=== PATIENT | female | born 1965 | race Caucasian/White ===

== ENCOUNTER 2017-07-30 08:32 | Emergency (ER) | payer MEDICARE, SELFPAY ==
[2017-07-30 08:33] VITALS: BP 161/90; PULSE 62; RESP 17; TEMP 36.5; O2SAT 94; BMI 62.1
--- NOTE | 2017-07-30 08:51 | ED.VISSUMM ---
- ER Visit Summary Date of Service: 07/30/17 Chief Complaint: Cellulitis right leg History of Present Illness: The patient is a 52 F who felt that she may have had a bite to her right lower dyer. She has small red vitor. She then developed a slightly red raised ring that itches. She was seen at urgent care on the and started on Keflex. Patient believes she had a fever that day, but none since. Patient states the erythema seems to be brighter today and it started moving more medially. Physical Examination: Vital signs are significant for blood pressure of 161/90, otherwise normal. Patient is an obese female sitting upright in bed. She is in no acute distress. Heart is regular rate and rhythm. Lung sounds are clear. Abdomen is soft and nontender. Right lower extremity examination reveals an erythematous circular lesion in the right lower leg with raised skin. There are small areas of red raised lesions just medial to this. There is no significant warmth. Test Results: CBC and chemistry studies are unremarkable. INR is 2.6. Emergency Department Course and Treatment: I discussed with the patient that her rash is consistent with a fungal infection. I took pictures of typical cellulitis versus fungal infection in and showed her the difference. We placed nystatin ointment on her leg and she complained that it seemed to burn and irritate the area. This was washed off. Patient is given a prescription for nystatin powder and p.o. Diflucan. Because she has restarted her Keflex she is to continue the full course of this. At this time there is no sign of secondary bacterial infection. Treatment Plan: [] Disposition: Discharge Impression: Tinea corporis This note was generated with medineering dictation software. It may contain incorrect words, spelling, and punctuation that were not noted in review of the chart prior to signing ED Disposition - Plan for ED Patient: Disposition: Home or Assisted Living Chief Complaint: Cellulitis Instructions: ED Tinea Cruris General Prescriptions: Fluconazole [Diflucan] 400 mg PO DAILY #5 days Nystatin Powder [Mycostatin Powder] 1 applic TOPICAL TID #1 bottle Referrals: Vitor Cha MD [Primary Care Provider] - 1-2 Weeks
[2017-07-30 09:15] LABS: Absolute Lymphocyte Count 1.74 X10^3/ul (0.83-4.51); Absolute Neutrophil Count 3.9 X10^3/uL (2.0-7.7); Basophil# 0.05 X10^3/uL; Basophil% 0.8 % (0-1); Eosinophil# 0.11 X10^3/uL; Eosinophils% 1.8 % (0-5); Hematocrit 42.4 % (37-47); Lymphocyte # 1.74 X10^3/ul (4.0); Lymphocyte % 28.2 % (19-41); Mean Corpuscular Volume 84.8 fL (81-99); Mean Platelet Vol. 9.7 fl (6.2-12.0); Monocyte# 0.37 X10^3/uL; Neutrophil # 3.87 X10^3/uL (2.7-7.7); Neutrophil % 62.9 % (47-70); POSITIVE COUNT NO; POSITIVE DIFFERENTIAL NO; POSITIVE MORPHOLOGY NO; Platelet Count 292 K/mm3 (150-450); RBC Distribution Width SD 39.8 fl (35.1-43.9); White Blood Count 6.2 K/mm3 (4.4-11.0)
[2017-07-30] MEDS: Nystatin/Triamcin Oint 1 APPLIC TOPICAL (09:17)
[2017-07-30 09:28] LABS: Anion Gap 7 (5-15); BUN 15 mg/dL (7-18); BUN/Creat Ratio 20.3 RATIO (10-20); Calcium,Total 8.6 mg/dL (8.5-10.1); Chloride 109 mmol/L (98-107); Creatinine, Serum 0.74 mg/dL (0.55-1.02); EST Glomerular Filtration Rate 87 mL/min (>60); Est Glom Filt Rate - Afr Amer 105 mL/min (>60); Estimated Creatinine Clearance 82.31 ml/min; Glucose 124 mg/dL (74-106); Potassium 3.8 mmol/L (3.5-5.1); Sodium Level 143 mmol/L (136-145)
[2017-07-30 10:14] LABS: International Normalized Ratio 2.6; Prothrombin Time (Protime)PT. 28.1 SECONDS (11.7-14.9)
--- NOTE | 2017-07-30 10:52 | ED.DEP ---
ED Disposition - Plan for ED Patient: Disposition: Home or Assisted Living Chief Complaint: Cellulitis Instructions: ED Tinea Cruris General Prescriptions: Fluconazole [Diflucan] 400 mg PO DAILY #5 days Nystatin Powder [Mycostatin Powder] 1 applic TOPICAL TID #1 bottle Referrals: Jonh Cha MD [Primary Care Provider] - 1-2 Weeks
[2017-07-30 11:09] VITALS: PULSE 71; RESP 17; O2SAT 97
== END 2017-07-30 11:09 | disposition home or self-care (01) ==
PROVIDERS: Emergency Provider Emergency Medicine; Family Provider Family Medicine; PCP Family Medicine
DX: B35.4 Tinea corporis (principal); I10 Essential (primary) hypertension; E66.9 Obesity, unspecified; Z79.01 Long term (current) use of anticoagulants; Z86.711 Personal history of pulmonary embolism; Z86.718 Personal history of other venous thrombosis and embolism; Z90.710 Acquired absence of both cervix and uterus
CPT/HCPCS: 36415; 80048; 85025; 85610; 99283; A4216

== ENCOUNTER 2018-02-21 06:00 | Day surgery (SDC) | payer MEDICARE, SELFPAY ==
[2018-02-21] VITALS (11 sets, daily range): BP systolic 141–190; BP diastolic 66–100; PULSE 55–89; RESP 16–20; TEMP 36.5–37.1; O2SAT 92–98; BMI 63.3
[2018-02-21 06:41] LABS: Prothrombin Time Fingerstick 13.7 SEC (11.9-14.4)
--- NOTE | 2018-02-21 07:15 | RAD_ITS ---
STUDY: X-RAY - RIGHT HAND, ATTENTION FIRST CARPOMETACARPAL JOINT REASON FOR EXAM: Right thumb carpometacarpal arthroplasty. TECHNIQUE: 3 intraoperative fluoroscopic view(s) were obtained. COMPARISON: Radiographs 01/18/2017. FINDINGS: There is resection arthroplasty of the first carpometacarpal joint. Electronically Signed: Pee Andre MD at 12:48 EDT Tel , Service support , RAD/Finger(s) Min 2 Views
[2018-02-21] MEDS: Cefazolin 2 GM in 0.9% Normal Saline 100 ML IV (07:29)
--- NOTE | 2018-02-21 07:30 | MISC_PTH ---
PATIENT: MORENA [place]ARTINEZ [place] [facility] [id number] AGE/SX: 53/F ROOM: RE02/21/[address]: Dr. Lisette Banks DO : 1965 BED: DIS: 02/21/2018 SPEC #: [id number] RECD: 02/21/18 11:42 STATUS: ROB REQ #: [id number] BROOKE: 02/21/18 07:[address]: Lisette Banks DEPT: SURGICAL PATHOLOGY RECD BY: Igor Anne ENTERED: 02/22/18 06:50 SP TYPE: [facility] [place] OTHR DR: Dr. Jonh Cha MD Tissues: Bone of hand, NOS Procedures: Decalcification bone/plaque Surgery Specimen Level III HEADER OPERATION: Carpometacarpal arthroplasty right thumb; left thumb carpometacarpal steroid injection PRE-OP DIAGNOSIS: Right carpometacarpal osteoarthritis TISSUE SUBMITTED: Right trapezium MICROSCOPIC DIAGNOSIS Right trapezium: A piece of bone with reactive changes, clinically carpometacarpal osteoarthritis. TOBIAS:agustina 02/26/18 MICROSCOPIC DESCRIPTION Slides are reviewed. GROSS DESCRIPTION Received in fixative is one container labeled with the patient's name and designated right trapezium. The specimen consists of a piece of bone measuring 2 x 1.5 x 1.5 cm. The entire specimen is submitted in two cassettes after decalcification. / TOBIAS:agustina 02/21/18 TC:5 [facility]: [id number]
--- NOTE | 2018-02-21 07:46 | DCINST_ITS ---
Discharge Diet: No Restrictions - leave splint on until seen in clinic, call with concerns, follow up in 2 weeks, do not take tylenol until percocet has stopped Discharge Activity: May Not Drive May shower in (days): 1 Ice area for (Minutes): 20 - Every hour while awake. Weight Bearing Status: Weight bearing as tolerated Keep extremity elevated above heart level: Operative Extremity Call your doctor if your incision/area has: Continuous Slow Oozing, Sudden Increased Bleeding, Increased Pain/ Swelling, Increased Redness, Foul Smelling Discharge Call your doctor if you observe: Fever of 101 or Higher, Coldness, Increased Pain, Numbness or Tingling, Change in Color, Calf discomfort Allergies/Adverse Reactions: Allergies enoxaparin sodium [From Lovenox] Allergy (Verified 02/14/18 12:55) Rash erythromycin lactobionate [From Erythrocin] Allergy (Verified 02/14/18 12:55) Rash Latex, Natural Rubber Allergy (Verified 02/14/18 12:55) Rash rofecoxib [From Vioxx] Allergy (Verified 02/14/18 12:55) Swelling valdecoxib [From Bextra] Allergy (Verified 02/14/18 12:55) Rash amoxicillin trihydrate [From Augmentin] Adverse Reaction (Verified 02/14/18 12:55) Other potassium clavulanate [From Augmentin] Adverse Reaction (Verified 02/14/18 12:55) Other Medications to take at Discharge Lisinopril [Zestril] 10 mg PO DAILY 08/07/13 Warfarin [Coumadin] 7.5 mg PO SUMOWEFR 08/07/13 Cyclobenzaprine [Flexeril] 10 mg PO TID PRN PRN 03/04/14 Acetaminophen with Codeine [Tylenol with Codeine #4 Tablet] 1 each PO Q4H PRN PRN 02/02/16 Atenolol [Tenormin (beta yusuf)] 50 mg PO DAILY 02/02/16 Gabapentin [Neurontin] 300 mg PO QHS 02/02/16 Furosemide [Lasix] 20 mg PO DAILY PRN PRN 02/05/16 Amlodipine [Norvasc] 10 mg PO DAILY 07/25/16 Atenolol [Tenormin (beta yusuf)] 25 mg PO QHS 07/30/17 Warfarin Sodium 5 mg PO TUTHSA 07/30/17 Tizanidine HCl [Zanaflex] 4 mg PO Q6H PRN PRN 02/14/18 Oxycodone HCl/Acetaminophen [Percocet 5/325] 1 - 2 tablet PO Q6H PRN PRN 3 Days #20 tablet 02/21/18 The following prescriptions were given: Oxycodone HCl/Acetaminophen [Percocet 5/325] 1 - 2 tablet PO Q6H PRN PRN 3 Days #20 tablet PRN Reason: Pain Primary Care Physician: Jonh Cha MD [Primary Care Provider] - Test Results: Test results from this visit will be discussed in further detail at your follow- up appointment, if applicable. Please Follow Up With: Lisette Banks, - [phone]
--- NOTE | 2018-02-21 07:46 | OP.PCM_ITS ---
Report of Operation Date of Procedure: 02/21/18 Pre-Operative Diagnosis: right cmc osteoarthritis(carpometacarpal) Post-Operative Diagnosis: same Surgery/Procedure Performed:: right cmc arthroplasty with tight rope arthrex recreation attendant supervisor: Ha Carson Type of Anesthesia:: General Anesthesiologist: Dvaid Gil Specimen's removed: trapezium Drains: none Estimated Blood Loss (mL): 10cc Fluids Replaced: 1200cc lr Description of Procedure: Preoperative note Patient is a 53-year-old female with mild osteoarthritis of her CMC joint however continued pain did have good result and resolution of symptoms with CMC injections however they stopped working patient is unable to perform her activities of daily living and elected to proceed with right CMC arthroplasty. Risks benefits and alternatives surgery discussed with patient. Risks including but not limited to blood loss, blood clot, infection, neurovascular injury, failure procedure, loss of life and loss of limb. Patient is aware like proceed with right CMC arthroplasty and left CMC injection. Operative note Patient seen and examined preoperative holding area. Right arm is hand was marked. Patient was brought to the operating room placed supine on the operating room table. Sign, anesthesia, antibiotics were administered. All bony prominence is well-padded SCDs placed on her bilateral lower extremities. The right arm was prepped and draped in usual sterile fashion with a tourniquet around her arm. We marked out our incision used fluoroscopy to ensure that we had good length of the incision for both our CMC as well as where the tight rib can be sewed on the between the at the dorsal second dorsal interosseous. The arm was elevated segment in turn was raised her pressure of 250 torr. Timeout was performed. We then used a 15 blade to cut the skin are incision ran from the base of the first metacarpal to the radial styloid. Dorsally. We then dissected down tenotomies making sure to protect all neurovascular structures down to the level of the extensor dorsal compartment first. We then released this proximally under standard technique. Then able to visualize the trapezium we put an 18-gauge needle into the trapezium confirm that that was with the correct bone on fluoroscopy. We then used a 15 blade and a Isamar blade combination and first down the bone excised and did a capsulotomy then we excised the trapezium in its entirety. We confirmed on fluoroscopy that we did remove the entire trapezium. We then used Arthrex mini tight rope system and placed our guidewire starting at the base of the first metacarpal and drilling it to the second metacarpal and ensuring that we were parallel to the joint and maintaining her arc of our metacarpals. We then tied the button on the second metacarpal in standard technique and then ensure that we had good flexion opposition, circumduction and a negative shuck test. We then tightened it further the button down to bone and sized sewed the button down to bone after we had no shock. We then irrigated both incision sites copious amounts of sterile saline. We closed the periosteum over top of the button and the suture. We closed the skin with 4-0 running Monocryl at the between the first and second interspace and then we closed our CMC capsule with a 2-0 Vicryl the subcuticular with a 4-0 Vicryl and the skin with a 4-0 nylon. Sterile dressings were applied a thumb spica splint was applied to the right hand. Tourniquet was deflated for a total working time of 119 minutes. We then injected the left CMC joint under sterile technique. Taught patient tolerated procedure well there are no complications transferred to recovery room in stable condition. Postoperative note Nonweightbearing right upper extremity Maintain splint until seen postop visit Call with increased pain numbness tingling or further issues arise Pharmacy has prescription Follow-up in 2 weeks This note was generated with Gigzolo dictation software. It may contain incorrect words, spelling, and punctuation that were not noted in checking the note before signing.
[2018-02-21] MEDS: Mupirocin Ointment 22gm Tube 1 APPLIC (09:46)
[2018-02-21] MEDS: Triamcinolone Acetonide 40 MG/ML Vial (10:10)
[2018-02-21] MEDS: Ropivacaine 0.5% 30 ML Vial (10:10)
--- NOTE | 2018-02-21 11:58 | SUR.PHASEI ---
SBP MAINTAINING FROM 170-190'S SINCE ARRIVAL TO PACU. PATIENT SLEEPING QUIETLY AFTER PHENERGAN/DILAUDID, WHEN AWAKE, STATES PAINFUL BUT DESATS EVERY TIME MEDICATED. PATIENT STATES SBP ELEVATED FREQUENTLY AT HOME, ON SEVERAL BP MEDS. DR SCHULZ NOTIFIED, AUGUST D/C FROM PACU.
[2018-02-21] MEDS: HYDROcodone Bitartrate/Apap 5/325 Tablet PO (13:41)
[2018-02-21] MEDS: HYDROmorphone 1 MG/ML Syringe 2 MG IV (13:55)
== END 2018-02-21 14:32 | disposition home or self-care (01) ==
LOC: SDC 06:01 → AC 06:03
PROVIDERS: Family Provider Family Medicine; PCP Family Medicine; Referring Provider Orthopaedic Surgery; Visit Provider Orthopaedic Surgery
PROC: (CPT 26615; principal; 2018-02-21 07:15)
DX: M18.11 Unilateral primary osteoarthritis of first carpometacarpal joint, right hand (principal); I10 Essential (primary) hypertension; Z78.0 Asymptomatic menopausal state; Z86.718 Personal history of other venous thrombosis and embolism; Z86.711 Personal history of pulmonary embolism; Z87.19 Personal history of other diseases of the digestive system; Z87.891 Personal history of nicotine dependence
CPT/HCPCS: 01830; 25447; 36416; 73140; 76000; 85610; 88304; 88311; C1713; J7120; J2405

== ENCOUNTER → 2018-03-06 09:24 | Outpatient (CLI) | payer MEDICARE, SELFPAY ==
--- NOTE | 2018-03-06 09:28 | RAD_ITS ---
STUDY: X-RAY - RIGHT HAND, ATTENTION FIRST FINGER REASON FOR EXAM: Female, 53 years old. One month postoperative after carpometacarpal arthroplasty. TECHNIQUE: 3 view(s) of the finger were obtained. COMPARISON: January 26, 2017 FINDINGS: The patient has undergone resection of the trapezium with a small portion of the trapezium remaining. There are surgical changes of the bases of the first and second metacarpals. There is arthrosis of the first metacarpophalangeal and interphalangeal joint. There is marked vascular calcification. RAD/Finger(s) Min 2 Views IMPRESSION: Postsurgical changes without complications. Electronically Signed: Cristian Peres MD at 14:05 EST , Service support ,
== END ==
PROVIDERS: Family Provider Family Medicine; PCP Family Medicine; Referring Provider Orthopaedic Surgery; Visit Provider Orthopaedic Surgery
DX: M18.11 Unilateral primary osteoarthritis of first carpometacarpal joint, right hand (principal); Z96.691 Finger-joint replacement of right hand
CPT/HCPCS: 73140; 97166

== ENCOUNTER → 2018-04-09 10:29 | Outpatient (CLI) | payer MEDICARE, SELFPAY ==
--- NOTE | 2018-04-09 10:30 | US_ITS ---
STUDY: SUPERFICIAL ULTRASOUND - RIGHT FOURTH DIGIT. REASON FOR EXAM: Female, 53 years old. Palpable nodule. TECHNIQUE: A superficial ultrasound was performed with real-time and static ashley-scale imaging. COMPARISON: None. FINDINGS: Imaging of the fourth digit was obtained. There is a 4 mm x 4 mm x 2 mm hypoechoic solid nodule along the palmar aspect of the fourth digit. This corresponds to the palpable abnormality. This may represent a neuroma. US/Ext Non Vasc Limited/Soft Tiss IMPRESSION: The palpable abnormality corresponds to a 4 mm x 4 mm x 2 mm hypoechoic solid nodule. Clinical correlation is recommended. Electronically Signed: Sanjay Monroy MD at 9:41 EST Tel [phone], Service support ,
== END ==
PROVIDERS: Family Provider Family Medicine; PCP Family Medicine; Referring Provider Orthopaedic Surgery; Visit Provider Orthopaedic Surgery
DX: M79.5 Residual foreign body in soft tissue (principal); L92.9 Granulomatous disorder of the skin and subcutaneous tissue, unspecified
CPT/HCPCS: 76882

== ENCOUNTER → 2018-05-16 11:06 | Outpatient (CLI) | payer MEDICARE, SELFPAY ==
--- NOTE | 2018-05-16 11:08 | RAD_ITS ---
STUDY: X-RAY - RIGHT HAND REASON FOR EXAM: Female, 53 years old. Pain. Previous surgery. TECHNIQUE: 3 view(s) of the hand. COMPARISON: 01/26/2017 FINDINGS: Since prior exam, patient has had resection of the greater multangular, and there has been placement of probable ligature between the base of the first and second metacarpals. No definite acute fracture or dislocation. Since prior exam patient has developed significant calcifications of the radial and ulnar arteries which can be seen with diabetes. Correlate clinically. Normal radiocarpal articulation. Normal distal radioulnar joint. Normal second through fifth carpometacarpal joints. Normal metacarpi. There is degenerative arthrosis of the metacarpophalangeal (MCP) joints. Normal interphalangeal joint of the thumb. Normal proximal and distal phalanges of the thumb. Normal metacarpophalangeal joints of the second through fifth fingers. Normal proximal and distal interphalangeal joints of the second through fifth fingers. Normal phalanges of the second through fifth fingers. RAD/Hand Min 3 Views IMPRESSION: No acute fractures or dislocations. Postsurgical changes involving the multangulars, and between the first and second metacarpals. Electronically Signed: Nilesh Vang MD at 22:53 EST , Service support ,
--- OUTSIDE RECORDS SUMMARY | 2018-07-21 07:00 | XMS RPT_ITS ---
:1965 Author Organization OHIP Support Name Relationship Address Phone D Unavailable Unavailable Unavailable RIDENBAUGH, CHAVA Unavailable [address] + [place] [address] D Unavailable Unavailable Unavailable RIDENBAUGH, CHAVA Unavailable [address] + [place] [address] D Unavailable Unavailable Unavailable RIDENBAUGH, CHAVA Unavailable [address] + [place] [address] D Unavailable Unavailable Unavailable RIDENBAUGH, CHAVA Unavailable [address] + [place] [address] D Unavailable Unavailable Unavailable RIDENBAUGH, CHAVA Unavailable [address] + [place] [address] D Unavailable Unavailable Unavailable RIDENBAUGH, CHAVA Unavailable [address] + [place] [address] D Unavailable Unavailable Unavailable RIDENBAUGH, CHAVA Unavailable [address] + [place] [address] D Unavailable Unavailable Unavailable RIDENBAUGH, CHAVA Unavailable [address] + [place] [address] D Unavailable Unavailable Unavailable RIDENBAUGH, CHAVA Unavailable [address] + [place] [address] D Unavailable Unavailable Unavailable RIDENBAUGH, CHAVA Unavailable [address] + [place] [address] D Unavailable Unavailable Unavailable RIDENBAUGH, CHAVA Unavailable [address] + [place] [address] D Unavailable Unavailable Unavailable KELSIE BRODERICK Unavailable [address] + [address] [place] [address] CHAVA MARTINEZ Unavailable [address] + [place] [address] D Unavailable Unavailable Unavailable KELSIE BRODERICK Unavailable [address] + [address] [place] [address] CHAVA MARTINEZ Unavailable [address] + [place] [address] D Unavailable Unavailable Unavailable KELSIE BRODERICK Unavailable [address] + [address] [place] [address] CHAVA MARTINEZ Unavailable [address] [phone] [place] [address] D Unavailable Unavailable Unavailable KELSIE BRODERICK Unavailable [address] + [address] [place] [address] CHAVA MARTINEZ Unavailable [address] [phone] [place] [address] D Unavailable Unavailable Unavailable KELSIE BRODERICK Unavailable [address] + [address] [place] [address] CHAVA MARTINEZ Unavailable [address] [phone] [place] [address] Care Team Providers Name Role Phone MILKA COLINDRES Referring Unavailable ELDERBROCK, MILKA Pruitt Referring Unavailable ELDERBROCK, MILKA Pruitt Referring Unavailable ELDERBROCKMILKA Attending Unavailable JAZMINEBROMILKA WARE Referring Unavailable ELDERBROCKMILKA Referring Unavailable ELDERBROCK, MILKA Pruitt Referring Unavailable ELDERBROCK, MILKA Pruitt Referring Unavailable ELDERBROCK, MILKA Pruitt Referring Unavailable ELDERBROCK, MILKA Pruitt Referring Unavailable ELDERBROCK, MILKA Pruitt Referring Unavailable CASEY HUDSON Attending Unavailable CASEY HUDSON Referring Unavailable ELDERBROCK, MILKA Pruitt Referring Unavailable ELDERBROCK, MILKA Pruitt Referring Unavailable ELDERBROCK, MILKA Pruitt Referring Unavailable ELDERBROCK, MILKA Pruitt Referring Unavailable ELDERBROCK, MILKA Pruitt Referring Unavailable ELDERBROCK, MILKA Pruitt Referring Unavailable ELDERBROCK, MILKA Pruitt Referring Unavailable ELDERBROCK, MILKA Pruitt Referring Unavailable ELDERBROCK, MILKA Pruitt Referring Unavailable ELDERBROCK, MILKA Pruitt Referring Unavailable ELDERBROCK, MILKA Pruitt Referring Unavailable ELDERBROCK, MILKA Pruitt Referring Unavailable ELDERBROCK, MILKA Pruitt Referring Unavailable PODKAREN HODGE (DOCUMENT REVIEW ATTORNEY) Attending Unavailable ELDERBROCK, MILKA D Referring Unavailable ELDERBROCK, MILKA D Referring Unavailable CASEY HUDSON Attending Unavailable CASEY HUDSON Referring Unavailable Chicorelli, Lisette Attending Unavailable Elderbrock, Milka Referring Unavailable Chicorelli, Lisette Attending Unavailable Elderbrock, Milka Referring Unavailable Elderbrock, Milka Primary Care Unavailable Chicorelli, Lisette Attending Unavailable Chicorelli, Lisette Referring Unavailable Elderbrock, Milka Primary Care Unavailable Wayt, Ha Attending Unavailable Elderbrock, Milka Referring Unavailable Wayt, Ha Attending Unavailable Wayt, Ha Referring Unavailable Elderbrock, Milka Primary Care Unavailable Elderbrock, Milka Primary Care Unavailable Za Gupta Attending Unavailable Chicorelli, Lisette Attending Unavailable Elderbrock, Milka Referring Unavailable Elderbrock, Milka Primary Care Unavailable Chicorelli, Lisette Attending Unavailable Elderbrock, Milka Referring Unavailable Elderbrock, Milka Primary Care Unavailable Wayt, Ha Attending Unavailable Elderbrock, Milka Referring Unavailable Elderbrock, Milka Primary Care Unavailable Chicorelli, Lisette Attending Unavailable Chicorelli, Lisette Referring Unavailable Elderbrock, Milka Primary Care Unavailable Chicorelli, Lisette Attending Unavailable Elderbrock, Milka Referring Unavailable Chicorelli, Lisette Attending Unavailable Chicorelli, Lisette Referring Unavailable Elderbrock, Milka Primary Care Unavailable Chicorelli, Lisette Attending Unavailable Chicorelli, Lisette Referring Unavailable Elderbrock, Milka Primary Care Unavailable Chicorelli, Lisette Attending Unavailable Chicorelli, Lisette Attending Unavailable Elderbrock, Milka Referring Unavailable Chicorelli, Lisette Attending Unavailable Chicorelli, Lisette Referring Unavailable Elderbrock, Milka Primary Care Unavailable PROBLEMS PROBLEMS DATE TYPE CONDITION / CODE ATTENDING STATUS SOURCE 05/16/2018 Unknown M79.644 - Pain in [place] Active [place] right finger(s) / Community M79.644(ICD-10) Hospital Repository 05/08/2018 Unknown Z96.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, Active [place] Finger-joint [facility] replacement of right Hospital hand / Repository Z96.691(ICD-10) 04/12/2018 Unknown G57.60 - Lesion of Chic[place]lli, Active [place] plantar nerve, [facility] unspecified lower Hospital limb / G57.60(ICD-10) Repository 04/03/2018 Unknown M79.5 - Residual Chicorelli, Active [place] foreign body in soft [facility] tissue / Hospital M79.5(ICD-10) Repository 04/03/2018 Unknown 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, Active [place]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 of the skin [facility] and subcutaneous Hospital tissue, unspecified / Repository L92.9(ICD-10) 03/13/2018 Active Encounter for NA Active [place] therapeutic drug [facility] Main level monitoring / [place] Z51.81(ICD-10) Repository 03/13/2018 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 [place] use of anticoagulants Clinic Main / Z79.01(ICD-10) [place] Repository 03/23/2009 Active Essential (primary) NA Active [place] hypertension / Clinic Main I10(ICD-10) [place] Repository 03/06/2018 Unknown 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, 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 [facility] first carpometacarpal Repository joint, right hand / M18.11(ICD-10) 02/21/2018 Unknown G89.18 - Other acute Chic[place]lli, Active [place] postprocedural pain / [facility] G89.18(ICD-10) Hospital Repository 12/07/2017 Unknown M18.0 - Bilateral Chicorelli, Active [place] primary [facility] osteoarthritis of Hospital first carpometacarpal Repository joints / M18.0(ICD-10) 04/04/2016 Active Other abnormal NA Active [place] glucose / Clinic Main R73.09(ICD-10) [place] Repository 03/04/2015 Active Embolism and NA Active [place] thrombosis of [facility] Main unspecified artery / [place] I74.9(ICD-10) Repository 11/17/2017 Active Other fatigue / NA Active [place] R53.83(ICD-10) Clinic Main [place] Repository 10/13/2017 Active Low back pain / NA Active [place] M54.5(ICD-10) Clinic Main [place] Repository 03/23/2009 Active Morbid (severe) NA Active [place] obesity due to excess Clinic Main calories / [place] E66.01(ICD-10) Repository PROCEDURES PROCEDURES No Procedure Records FoundRESULTS RESULTS ORTHOPEDIC VISIT Observed: 05/18/2018 Status: F Source: [place] REPORT 4:51 PM [facility] REPOSITORY [facility] [address] [place] [id number] OFFICE VISIT Date of Service: 05/16/18 MR#: [id number] Acct: [id number] Name: BECKY MARTINEZ Rep #: [id number] : 1965 Provider: LISA Carson Age/Sex: 53/F [place] [facility] [place]: Signed Intake Intake Visit Reasons: right thumb Is patient in pain?: Yes Allergies enoxaparin sodium [From Lovenox] Allergy (Verified 05/16/18 10:36) Rash erythromycin lactobionate [From Erythrocin] Allergy (Verified 05/16/18 10:36) Rash Latex, Natural Rubber Allergy (Verified 05/16/18 10:36) Rash rofecoxib [From Vioxx] Allergy (Verified 05/16/18 10:36) Swelling valdecoxib [From Bextra] Allergy (Verified 05/16/18 10:36) Rash amoxicillin trihydrate [From Augmentin] Adverse Reaction (Verified 05/16/18 10:36) Other potassium clavulanate [From Augmentin] Adverse Reaction (Verified 05/16/18 10:36) Other Medications Lisinopril [Zestril] 10 mg PO DAILY 08/07/13 [History Confirmed 02/21/18] Warfarin [Coumadin] 7.5 mg PO SUMOWEFR 08/07/13 [History Confirmed 02/21/18] Cyclobenzaprine [Flexeril] 10 mg PO TID PRN PRN 03/04/14 [History Confirmed 02/21/18] Acetaminophen with Codeine [Tylenol with Codeine #4 Tablet] 1 ea PO Q4H PRN PRN 02/02/16 [History Confirmed 02/21/18] Atenolol [Tenormin (beta yusuf)] 50 mg PO DAILY 02/02/16 [History Confirmed 02/21/18] Gabapentin [Neurontin] 300 mg PO QHS 02/02/16 [History Confirmed 02/21/18] Furosemide [Lasix] 20 mg PO DAILY PRN PRN 02/05/16 [History Confirmed 02/21/18] Amlodipine [Norvasc] 10 mg PO DAILY 07/25/16 [History Confirmed 02/21/18] Atenolol [Tenormin (beta yusuf)] 25 mg PO QHS 07/30/17 [History Confirmed 02/21/18] Warfarin Sodium 5 mg PO TUTHSA 07/30/17 [History Confirmed 02/21/18] Tizanidine HCl [Zanaflex] 4 mg PO Q6H PRN PRN 02/14/18 [History Confirmed 02/21/18] PFSH Medical History H/O: hysterectomy (Inactive) s/p elbow (Inactive) Surgical History h/o right CMC joint arthroplasty (Acute) S/P arthroscopy of knee (Inactive) S/P hernia repair (Inactive) S/P knee replacement (Inactive) Family History Sister Heart disease Brother Heart disease Father Heart disease Mother Breast cancer Social History Smoking Status: Former smoker HPI right thumb: Details: BECKY MARTINEZ is a 53 year old F here today for continued right thumb pain. She is s/p CMC joint replacement dos 02/21/18. Patient states that she continues to have pain into her right thumb and wrist. She has significant swelling into her hand which increases throughout the day. Patient has decreased wrist range of motion and stiffness with thumb range of motion. Patient has numbness over her the tip of the thumb and index finger. Her incision is fully healed. She is currently in occupational therapy. ROS Const Reports system reviewed and no additional complaints, except as docu Eyes Reports system reviewed and no additional complaints, except as docu ENT Reports system reviewed and no additional complaints, except as docu Card Reports system reviewed and no additional complaints, except as docu Resp Reports system reviewed and no additional complaints, except as docu GI Reports system reviewed and no additional complaints, except as docu Reports system reviewed and no additional complaints, except as docu Musc Reports joint pain, Reports joint swelling, Reports stiffness, Reports numbness Skin/Breast Reports system reviewed and no additional complaints, except as docu Neuro Yes system reviewed and no additional complaints, except as docu, Yes numbness Psych Reports system reviewed and no additional complaints, except as docu Endo Reports system reviewed and no additional complaints, except as docu Ortho Exam Right Wrist/Hand Skin/Wound: Yes Swelling, No Ecchymosis Contralateral Normal: Yes Right Wrist: No ROM-Extension 0-60, ROM-Flexion 0-80, ROM- Pronation 0-80 or ROM-Supination 0-90 Sensation: Radial: I, Ulnar: I, Median: I WRIST: Today in the office patient does have some mild to moderate generalized swelling of the wrist and the base of the thumb. She does have some mild diffuse puffiness of the fingers as well. Patient has extremely limited range of motion of the wrist. She has maybe 10 degrees of flexion and extension. Movements of the wrist feel more blocked as opposed to just being stiff. Patient is also limited with her supination and pronation as well. She does have movements of the thumb both the IP joint and the MCP joint. These movements are not full/comparable to the left thumb. Is roughly 30 degrees of the IP joint of flexion/abduction and roughly 50 degrees of the MCP joint. She has limited pincer grasp thumb to index finger. Left Wrist/Hand Skin/Wound: Yes Swelling, No Ecchymosis Assessment AND Plan Problems 1. Orthopedic aftercare Z47.89 Plan Obtained Xrays of patient's right wrist. Personally reviewed Xrays. There is no obvious fracture, dislocation, or lucency noted. See chart for further details. Patient still has some calcification of the radial and ulnar arteries. 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 There are no major dislocations or carpal space widening. May be a slight narrowing of the radiocarpal region. At this time patient states that the surgical aspect of the thumb is not doing too bad that her motion is coming back and her pain is very mild. Her biggest concern is that she really has limited range of motion of the wrist which impacts her daily activities of living. Along with this limited motion she has intermittent swelling of the wrist as well as into the fingers. She states that sometimes the wrist appears shiny and almost discolored a little. She has not seen much improvement through occupational therapy at this point. She definitely needs to continue with occupational therapy at the same time will talk with therapist to see if there is any other possible treatments we could be doing for her. Have to even consider the possibility of an RSD secondary to surgery at this site. At this time she will continue with home exercise program given to her by OT until we speak to see if there is another possible treatment option. I did discuss possibly even seeing hand surgeon for second opinion. Patient can notify the office if she has any worsening in the meantime. I would like to see her back in 4-6 weeks. This note was generated with BrightFarmsation software. It may contain incorrect words, spelling, and punctuation that were not noted in checking the note before signing. Orders Orders: Plan Detail Follow Up 6 Weeks Coding Level of Care Code Global Post Op Diagnoses Orthopedic aftercare Z47.89 05/18/18 7068 <Electronically signed by Ha GONZALEZ> Date Ha GONZALEZ Cosigner Signature: Date (if applicable) CC: HAND MIN 3 VIEWS Observed: 05/16/2018 Status: F Source: [place] 11:08 AM [facility] REPOSITORY [facility] Imaging Services [address] [place] [id number] Hand Min 3 Views MR#: [id number] Acct: [id number] Name: BECKY MARTINEZ Soheila Rep #: [id number] : 1965 F 53 From: Nilesh Vang MD PCP: Starla RAM,Milka Status: REG CLI Study: Hand Min 3 Views Date of Exam: 05/16/18 Exam# [id number] Ordering Dr: Ha Carson STUDY: X-RAY - RIGHT HAND REASON FOR EXAM: Female, 53 years old. Pain. Previous surgery. TECHNIQUE: 3 view(s) of the hand. COMPARISON: 2017 FINDINGS: Since prior exam, patient has had resection of the greater multangular, and there has been placement of probable ligature between the base of the first and second metacarpals. No definite acute fracture or dislocation. Since prior exam patient has developed significant calcifications of the radial and ulnar arteries which can be seen with diabetes. Correlate clinically. Normal radiocarpal articulation. Normal distal radioulnar joint. Normal second through fifth carpometacarpal joints. Normal metacarpi. There is degenerative arthrosis of the metacarpophalangeal (MCP) joints. Normal interphalangeal joint of the thumb. Normal proximal and distal phalanges of the thumb. Normal metacarpophalangeal joints of the second through fifth fingers. Normal proximal and distal interphalangeal joints of the second through fifth fingers. Normal phalanges of the second through fifth fingers. RAD/Hand Min 3 Views IMPRESSION: No acute fractures or dislocations. Postsurgical changes involving the multangulars, and between the first and second metacarpals. Electronically Signed: Nilesh Vang MD at 22:53 EST , Service support , CC: LISA Carson; Milka Colindres MD Fresh Food Manager: Signed PROGRESS Observed: 05/15/2018 Status: COMPLETED Source: [place] 4:03 PM [facility] REPOSITORY HNO ID: [id number] Author: Milka Colindres Service: (none) Author Type: Physician Type: Progress Notes Filed: 05/15/2018 4:51 PM Note Text: I agree with the advice given; stay same and recheck in 2 weeks Milka Colindres MD PROGRESS Observed: 05/15/2018 Status: COMPLETED Source: [place] 2:51 PM [facility] REPOSITORY HNO ID: [id number] Author: Priscila Blanton RN Service: (none) Author Type: (none) Type: Progress Notes Filed: 05/15/2018 2:53 PM Note Text: patient had inr completed at [facility] patients inr is 3.0 (patients inr range is 2.0-3.0) patient is currently taking 7.5mg Tues,Thurs and 5mg all other days patients last dose change was on 05/08/18 due to a high level of 4.0 (dose at that time was 5mg Tues,Thurs,Sat and 7.5mg all other days) patient has had no changes in medication and no missed doses and no change in diet Advised patient to continue on the same dose(s) and that they would only be contacted regarding dosage and follow up instructions after review with provider, if a change is needed. Written instructions given and patient verbalized understanding. Presently scheduled in 2 weeks (05/29/18) for follow up INR. PROGRESS Observed: 05/11/2018 Status: COMPLETED Source: [place] 1:23 PM [facility] REPOSITORY HNO ID: [id number] Author: Yao Vallejo Service: (none) Author Type: Physician Type: Progress Notes Filed: 05/11/2018 3:21 PM Note Text: This note was created using MENA360riter. Subjective Becky Martinez is a 53 year old female. Review of Systems Objective There were no vitals taken for this visit. Physical Exam Assessment and Plan Agree with plan. PROGRESS Observed: 05/11/2018 Status: COMPLETED Source: [place] 10:45 AM [facility] REPOSITORY HNO ID: [id number] Author: Priscila Blanton RN Service: (none) Author Type: (none) Type: Progress Notes Filed: 05/11/2018 10:47 AM Note Text: patient had inr completed at [facility] patients inr is 2.5 (patients inr range is 2.0-3.0) patient is currently taking 7.5mg Tues,Thurs and 5mg all other days patients last dose change was on 05/08/18 due to a high level of 4.0 (dose at that time was 5mg Tues,Thurs,Sat and 7.5mg all other days) patient has had no changes in medication except coumadin (pt is still taking doxy), and no uninstructed missed doses and no change in diet Advised patient to continue on the same dose(s) and that they would only be contacted regarding dosage and follow up instructions after review with provider, if a change is needed. Written instructions given and patient verbalized understanding. Presently scheduled on Monday (05/15/18 per pt request) for follow up INR. PROGRESS Observed: 05/08/2018 Status: COMPLETED Source: [place] 5:15 PM [facility] REPOSITORY HNO ID: [id number] Author: Helen Stovall LPN Service: (none) Author Type: (none) Type: Progress Notes Filed: 05/08/2018 5:28 PM Note Text: Pt notified. PROGRESS Observed: 05/08/2018 Status: COMPLETED Source: [place] 4:16 PM [facility] REPOSITORY HNO ID: [id number] Author: Ben Cerna Service: (none) Author Type: Physician Type: Progress Notes Filed: 05/08/2018 5:28 PM Note Text: Please have her hold today dose of Coumadin, restart coumadin tomorrow at 5 mg on Mon, Wed, Fri, Sat, Sun and 7.5 mg on Tu, Thurs, Recheck INR on Monday Ben Cerna, PROGRESS Observed: 05/08/2018 Status: COMPLETED Source: [place] 2:43 PM [facility] REPOSITORY HNO ID: [id number] Author: Priscila Blanton RN Service: (none) Author Type: (none) Type: Progress Notes Filed: 05/08/2018 2:45 PM Note Text: patient had inr completed at [facility] patients inr is 4.0 (patients inr range is 2.0-3.0) patient is currently taking 5mg Tues,Thurs,Sat and 7.5mg all other days patients last dose change was on 11/16/17 due to a high level of 3.7 (dose at that time was 5mg Wed and 7.5mg all other days) patient has had a change in medication as pt is on doxy and no missed doses and no change in diet FYI - pt has been instructed to hold coumadin until contacted Advised patient that they would be contacted regarding medication dose and when to follow up after information is reviewed by provider. After provider review please contact the patient with information and schedule follow up appointment with coumadin clinic. FYI -pt has been scheduled for a 1 week follow up inr on 05/15/18 PROGRESS Observed: 04/29/2018 Status: COMPLETED Source: [place] 8:36 AM [facility] REPOSITORY HNO ID: [id number] Author: Antoinette Melendez Service: (none) Author Type: Nurse Practitioner Type: Progress Notes Filed: 04/29/2018 8:38 AM Note Text: Subjective HPI Patient presents with: Chest Congestion: head congestion and cough x 10 days, worsening that last two days, low grade fever now Hx of pneumonia and smoking. Coricidin otc with minimal relief. Review of Systems Constitutional: Positive for chills, fever and malaise/fatigue. HENT: Positive for congestion, sinus pain and sore throat. Negative for ear pain. Eyes: Negative for discharge and redness. Respiratory: Positive for cough. Negative for hemoptysis, sputum production, shortness of breath and wheezing. Gastrointestinal: Negative for abdominal pain, diarrhea, nausea and vomiting. Skin: Negative for rash. Neurological: Negative for headaches. 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 - Diffuse cystic mastopathy - Diverticulosis of colon (without mention of hemorrhage) Diverticulosis - DVT of leg (deep venous thrombosis) (HCC) Right leg - Hypertension - Irritable bowel syndrome - Localized osteoarthrosis not specified whether primary or secondary, other specified sites RT KNEE - Migraine, unspecified, with intractable migraine, so stated, without mention of status migrainosus Migraine - Obesity, unspecified - Osteoarthritis of right knee - Other and unspecified disc disorder of unspecified region Intervertebral disc disorders - Other disorders of bladder - Personal history of colonic polyps 01/21/2015 - PMH - PAST MEDICAL HISTORY OF 1989 Pulmonary Embolism PAST SURGICAL HISTORY Procedure Laterality Date - APPENDECTOMY - COLONOSCOP W/ OR W/O [facility] SPEC 01/21/2015 Repeat 2024 - I/D PERIANAL ABSCESS, SUPERFICIAL 5-2-12 - KNEE SCOPE,DIAGNOSTIC 2007 Right knee - LIGATE FALLOPIAN TUBE - ME ANESTH,DX ARTHROSCOPIC PROC KNEE JOINT 1994 LT KNEE - ME ANESTH,DX ARTHROSCOPIC PROC KNEE JOINT 1994 RT KNEE - REDUCTION OF LARGE BREAST Breast reduction - REMOVAL GALLBLADDER Cholecystectomy - REPAIR ANAL FISTULA W/NICHELLE 12/09/11 - REPAIR UMBILICAL OUMOU,5+Y/O,REDUC Hernia repair, umbilical >5yr, x2 with mesh - TOTAL ABDOM HYSTERECTOMY Hysterectomy, ARIELLE - TOTAL KNEE REPLACEMENT Right 06/27/2011 - TREAT ECTOPIC PREG,NON REMVAL Ectopic ALLERGIES Augmentin [Amoxicillin-Pot Clavulanate]; Bextra [Valdecoxib]; Celebrex [Celecoxib]; Erythromycin; Latex; Lovenox [Enoxaparin Sodium]; Vioxx [Rofecoxib]; Voltaren [Diclofenac Sodium] MEDICATIONS acetaminophen-codeine (TYLENOL-COD #4) 300-60 mg per tablet Take 1 tablet by mouth twice daily as needed for Pain for up to 90 days. amLODIPine (NORVASC) 10 mg tablet Take 1 tablet by mouth once daily. atenolol (TENORMIN) 50 mg tablet Take 1 tablet by mouth once daily. Take 50 mg in the AM, 25 mg in the PM furosemide (LASIX) 20 mg tablet Take 1 tablet by mouth once daily. NEEDED gabapentin (NEURONTIN) 300 mg capsule Take 1 capsule by mouth daily at bedtime for 90 days. lisinopril (ZESTRIL, PRINIVIL) 20 mg tablet Take 0.5 tablets by mouth once daily. nitroglycerin sublingual (NITROQUICK) 0.4 mg SL tablet Dissolve 1 tablet under the tongue as needed. FOR CHEST PAIN. IF NO RELIEF CALL 911 tiZANidine (ZANAFLEX) 4 mg tablet Take 1 tablet by mouth every 6 hours as needed. warfarin (COUMADIN) 5 mg tablet Take 5 T//Mon and 7.5 mg all other days or as directed. Ktagfrewvfnqcvg-Zljowmmzb-EZ (BROMFED DM) 2-30-10 mg/5 mL syrup Take 10 mL by mouth four times daily as needed for up to 7 days. doxycycline monohydrate (MONODOX) 100 mg capsule Take 1 capsule by mouth twice daily for 10 days. phenazopyridine (PYRIDIUM) 200 mg tablet TO BE TAKEN DIRECTED BY MOUTH ONE(1) TABLET THREE TIMES DAILY X 2 DAYS predniSONE (DELTASONE) 10 mg tablet Take 2 pills daily for 4 days, then take 1 pill daily for 4 days, then take 1/2 pill daily for 4 days triamcinolone acetonide (KENALOG) 0.1 % cream Apply 1 application to affected area twice daily. Apply to affected area. Location: right leg FAMILY HISTORY Problem Relation Age of Onset - Heart Father [place] age 50, sudden - Breast Cancer Mother - Coronary Artery Disease Brother Quadruple by-pass age 50 - Coronary Artery Disease Sister AK late 30's - Stroke Sister - other (Other) Brother pulmonary embolism - other (Other) Sister pulmonary embolism - Heart Sister heart attack age 50, stent - Diabetes Sister older sister; obese Social History Substance Use Topics - Smoking status: Former Smoker Packs/day: 0.50 Years: 2.00 Types: Cigarettes Quit date: 05/01/1979 - Smokeless tobacco: Never Used - Alcohol use Yes Comment: socially Objective Physical Exam Constitutional: She is well-developed, well-nourished, and in no distress. HENT: Head: Normocephalic. Right Ear: Tympanic membrane, external ear and ear canal normal. Left Ear: Tympanic membrane, external ear and ear canal normal. Nose: Mucosal edema present. Right sinus exhibits maxillary sinus tenderness and frontal sinus tenderness. Left sinus exhibits maxillary sinus tenderness and frontal sinus tenderness. Mouth/Throat: Posterior oropharyngeal erythema (PND) present. Eyes: Conjunctivae are normal. Neck: Normal range of motion. Neck supple. Cardiovascular: Normal rate, regular rhythm and normal heart sounds. Pulmonary/Chest: Effort normal and breath sounds normal. No respiratory distress. She has no wheezes. Abdominal: Soft. She exhibits no distension. There is no tenderness. Lymphadenopathy: She has no cervical adenopathy. Skin: Skin is warm and dry. No rash noted. Nursing note and vitals reviewed. ASSESSMENT/PLAN: 1. Sinobronchitis - ICD9: 473.9, 490, ICD10: J32.9, J40 - Will begin treatment with Doxycycline - The patient should also be given warm salt water gargles, throat lozenges and/or OTC throat spray as needed and nasal saline gtts and suction prn for the first 5-7 days of treatment. - Supportive care with plenty of fluids, rest, and analgesia prn. - Follow up in 3-5 days if symptoms persist or worsen. Prescription instructions reviewed with patient as applicable. Patient advised if symptoms do not improve or if symptoms worsen sooner, to contact their primary care physician. Potential red flag symptoms discussed with the patient. Reviewed appropriate action plan to take if red flag symptoms occur. Patient agreeable to treatment plan. Antoinette Melendez APRN.DOCUMENT REVIEW ATTORNEY CNOV Observed: 04/29/2018 Status: COMPLETED Source: [place] 8:15 AM [facility] REPOSITORY Office Visit ([facility]) BECKY MARTINEZ ([id number]) 1965 F Date Time Provider Department 04/29/18 8:15 AM ANTOINETTE MELENDEZ ([employer]ER) [facility] During your visit today, we recorded the following information about you: Temperature Pulse Respiration Blood pressure 99 degrees 84/minute 18/minute 132/80 Weight 176 kg Antoinette Melendez APRN.JOHN 04/29/2018 8:38 AM Signed Subjective HPI Patient presents with: Chest Congestion: head congestion and cough x 10 days, worsening that last two days, low grade fever now Hx of pneumonia and smoking. Coricidin otc with minimal relief. Review of Systems Constitutional: Positive for chills, fever and malaise/fatigue. HENT: Positive for congestion, sinus pain and sore throat. Negative for ear pain. Eyes: Negative for discharge and redness. Respiratory: Positive for cough. Negative for hemoptysis, sputum production, shortness of breath and wheezing. Gastrointestinal: Negative for abdominal pain, diarrhea, nausea and vomiting. Skin: Negative for rash. Neurological: Negative for headaches. 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 - Diffuse cystic mastopathy - Diverticulosis of colon (without mention of hemorrhage) Diverticulosis - DVT of leg (deep venous thrombosis) (HCC) Right leg - Hypertension - Irritable bowel syndrome - Localized osteoarthrosis not specified whether primary or secondary, other specified sites RT KNEE - Migraine, unspecified, with intractable migraine, so stated, without mention of status migrainosus Migraine - Obesity, unspecified - Osteoarthritis of right knee - Other and unspecified disc disorder of unspecified region Intervertebral disc disorders - Other disorders of bladder - Personal history of colonic polyps 01/21/2015 - PMH - PAST MEDICAL HISTORY OF 1989 Pulmonary Embolism PAST SURGICAL HISTORY Procedure Laterality Date - APPENDECTOMY - COLONOSCOP W/ OR W/O [facility] SPEC 01/21/2015 Repeat 2024 - I/D PERIANAL ABSCESS, SUPERFICIAL 5-2-12 - KNEE SCOPE,DIAGNOSTIC 2007 Right knee - LIGATE FALLOPIAN TUBE - ME ANESTH,DX ARTHROSCOPIC PROC KNEE JOINT 1994 LT KNEE - ME ANESTH,DX ARTHROSCOPIC PROC KNEE JOINT 1994 RT KNEE - REDUCTION OF LARGE BREAST Breast reduction - REMOVAL GALLBLADDER Cholecystectomy - REPAIR ANAL FISTULA W/NICHELLE 12/09/11 - REPAIR UMBILICAL OUMOU,5+Y/O,REDUC Hernia repair, umbilical >5yr, x2 with mesh - TOTAL ABDOM HYSTERECTOMY Hysterectomy, ARIELLE - TOTAL KNEE REPLACEMENT Right 06/27/2011 - TREAT ECTOPIC PREG,NON REMVAL Ectopic ALLERGIES Augmentin [Amoxicillin-Pot Clavulanate]; Bextra [Valdecoxib]; Celebrex [Celecoxib]; Erythromycin; Latex; Lovenox [Enoxaparin Sodium]; Vioxx [Rofecoxib]; Voltaren [Diclofenac Sodium] MEDICATIONS acetaminophen-codeine (TYLENOL-COD #4) 300-60 mg per tablet Take 1 tablet by mouth twice daily as needed for Pain for up to 90 days. amLODIPine (NORVASC) 10 mg tablet Take 1 tablet by mouth once daily. atenolol (TENORMIN) 50 mg tablet Take 1 tablet by mouth once daily. Take 50 mg in the AM, 25 mg in the PM furosemide (LASIX) 20 mg tablet Take 1 tablet by mouth once daily. NEEDED gabapentin (NEURONTIN) 300 mg capsule Take 1 capsule by mouth daily at bedtime for 90 days. lisinopril (ZESTRIL, PRINIVIL) 20 mg tablet Take 0.5 tablets by mouth once daily. nitroglycerin sublingual (NITROQUICK) 0.4 mg SL tablet Dissolve 1 tablet under the tongue as needed. FOR CHEST PAIN. IF NO RELIEF CALL 911 tiZANidine (ZANAFLEX) 4 mg tablet Take 1 tablet by mouth every 6 hours as needed. warfarin (COUMADIN) 5 mg tablet Take 5 T//Mon and 7.5 mg all other days or as directed. Ygnjjvxrefkmcrx-Tkabsbcas-CQ (BROMFED DM) 2-30-10 mg/5 mL syrup Take 10 mL by mouth four times daily as needed for up to 7 days. doxycycline monohydrate (MONODOX) 100 mg capsule Take 1 capsule by mouth twice daily for 10 days. phenazopyridine (PYRIDIUM) 200 mg tablet TO BE TAKEN DIRECTED BY MOUTH ONE(1) TABLET THREE TIMES DAILY X 2 DAYS predniSONE (DELTASONE) 10 mg tablet Take 2 pills daily for 4 days, then take 1 pill daily for 4 days, then take 1/2 pill daily for 4 days triamcinolone acetonide (KENALOG) 0.1 % cream Apply 1 application to affected area twice daily. Apply to affected area. Location: right leg FAMILY HISTORY Problem Relation Age of Onset - Heart Father [place] age 50, sudden - Breast Cancer Mother - Coronary Artery Disease Brother Quadruple by-pass age 50 - Coronary Artery Disease Sister AK late 30s - Stroke Sister - other (Other) Brother pulmonary embolism - other (Other) Sister pulmonary embolism - Heart Sister heart attack age 50, stent - Diabetes Sister older sister; obese Social History Substance Use Topics - Smoking status: Former Smoker Packs/day: 0.50 Years: 2.00 Types: Cigarettes Quit date: 05/01/1979 - Smokeless tobacco: Never Used - Alcohol use Yes Comment: socially Objective Physical Exam Constitutional: She is well-developed, well-nourished, and in no distress. HENT: Head: Normocephalic. Right Ear: Tympanic membrane, external ear and ear canal normal. Left Ear: Tympanic membrane, external ear and ear canal normal. Nose: Mucosal edema present. Right sinus exhibits maxillary sinus tenderness and frontal sinus tenderness. Left sinus exhibits maxillary sinus tenderness and frontal sinus tenderness. Mouth/Throat: Posterior oropharyngeal erythema (PND) present. Eyes: Conjunctivae are normal. Neck: Normal range of motion. Neck supple. Cardiovascular: Normal rate, regular rhythm and normal heart sounds. Pulmonary/Chest: Effort normal and breath sounds normal. No respiratory distress. She has no wheezes. Abdominal: Soft. She exhibits no distension. There is no tenderness. Lymphadenopathy: She has no cervical adenopathy. Skin: Skin is warm and dry. No rash noted. Nursing note and vitals reviewed. ASSESSMENT/PLAN: 1. Sinobronchitis - ICD9: 473.9, 490, ICD10: J32.9, J40 - Will begin treatment with Doxycycline - The patient should also be given warm salt water gargles, throat lozenges and/or OTC throat spray as needed and nasal saline gtts and suction prn for the first 5-7 days of treatment. - Supportive care with plenty of fluids, rest, and analgesia prn. - Follow up in 3-5 days if symptoms persist or worsen. Prescription instructions reviewed with patient as applicable. Patient advised if symptoms do not improve or if symptoms worsen sooner, to contact their primary care physician. Potential red flag symptoms discussed with the patient. Reviewed appropriate action plan to take if red flag symptoms occur. Patient agreeable to treatment plan. Antoinette Melendez APRN.DOCUMENT REVIEW ATTORNEY Referring Provider: SELF [200] Allergies As of Date: 04/29/2018 Noted Allergy Reaction AUGMENTIN (AMOXICILLIN-POT CLAVUL*12/31/2004 14 - Other: See Comments Comments: Adverse effect, developed yeast infection BEXTRA (VALDECOXIB) 12/31/2004 7 - Swelling Comments: Ankle swelling CELEBREX (CELECOXIB) 12/31/2004 7 - Swelling Comments: ankle swelling ERYTHROMYCIN 12/31/2004 2 - Rash LATEX 12/31/2004 LOVENOX (ENOXAPARIN SODIUM) 06/23/2011 2 - Rash VIOXX (ROFECOXIB) 12/31/2004 7 - Swelling Comments: ankle swelling VOLTAREN (DICLOFENAC SODIUM) 12/31/2004 7 - Swelling Comments: ankle swelling Date Reviewed: 04/29/2018 Reviewed by: Antoinette Gaspar (Ac) Humberto - Fully Assessed Reason for Visit: Chest Congestion [236] Cmt: head congestion and cough x 10 days Primary Visit Diagnosis:Sinobronchitis [J32.9, J40] Order(s):doxycycline monohydrate (MONODOX) 100 mg capsuleTake 1 capsule by mouth twice daily for 10 days.Disp: 20 capsuleRfl: 0 Spqcqczcfdkuwqh-Pvmbxjzgj-UG (BROMFED DM) 2-30-10 mg/5 mL syrupTake 10 mL by mouth four times daily as needed for up to 7 days.Disp: 240 mLRfl: 0 Prescriptions as of 04/29/2018 Sig: ACETAMINOPHEN 300 MG-CODEINE * Take 1 tablet by mouth twice * AMLODIPINE 10 MG TABLET Take 1 tablet by mouth once d* ATENOLOL 50 MG TABLET Take 1 tablet by mouth once d* FUROSEMIDE 20 MG TABLET Take 1 tablet by mouth once d* GABAPENTIN 300 MG CAPSULE Take 1 capsule by mouth daily* LISINOPRIL 20 MG TABLET Take 0.5 tablets by mouth onc* NITROGLYCERIN 0.4 MG SUBLINGU* Dissolve 1 tablet under the t* TIZANIDINE 4 MG TABLET Take 1 tablet by mouth every * WARFARIN 5 MG TABLET Take 5 T//Mon and 7.5 mg al* BROMPHENIRAMINE-PSEUDOEPHEDRI* Take 10 mL by mouth four time* DOXYCYCLINE MONOHYDRATE 100 M* Take 1 capsule by mouth twice* PHENAZOPYRIDINE 200 MG TABLET TO BE TAKEN DIRECTED BY MO* Patient not taking: Reported on 04/29/2018 PREDNISONE 10 MG TABLET Take 2 pills daily for 4 days* Patient not taking: Reported on 04/29/2018 TRIAMCINOLONE ACETONIDE 0.1 %* Apply 1 application to affect* Patient not taking: Reported on 04/29/2018 Problem List As Of Date 04/29/2018 Noted Resolved Allergic Rhinitis, Cause Unspecified [J30.9] INVALID FOR* Diverticulosis of Colon (without Mention of Hem* More... Irritable Bowel Syndrome [K58.9] Migraine NOS/Intractable [G43.919] More... 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 Other and Unspecified Disc Disorder of Unspecif* More... 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 Restless Legs Syndrome (RLS) [G25.81] INVALID FOR* Obstructive Sleep Apnea (Adult) (Pediatric) [G4*INVALID FOR* Essential Hypertension, Benign [I10] INVALID FOR* Other Abnormal Glucose [R73.09] INVALID FOR* Dysmetabolic Syndrome X [E88.81] INVALID FOR* Palpitations [R00.2] INVALID FOR*03/09/2012 More... Routine Gynecological Examination [Z01.419] INVALID FOR* Class: Chronic More... Obesity, Morbid [E66.01] INVALID FOR* Abdominal pain, left lower quadrant [R10.32] INVALID FOR*03/09/2012 Diarrhea [R19.7] INVALID FOR* Knee pain [M25.569] INVALID FOR* More... 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 VJDFPZQBEMSJLDT-ZLPUJMXEQHIOXFO-EL 2* 240 * 0 04/29/2018 05/06/2018 Route: ORAL Sig: Take 10 mL by mouth four times daily as needed for up to 7 days. Disposition: Return if symptoms worsen or fail to improve. Follow-up and Disposition History Recorded Encounter Status:Closed by ANTOINETTE MELENDEZ on 04/29/18 ORTHOPEDIC VISIT Observed: 04/12/2018 Status: F Source: [place] 1:55 PM [facility] REPOSITORY [facility] [address] [place] [id number] OFFICE VISIT Date of Service: 04/12/18 MR#: [id number] Acct: [id number] Name: BECKY MARTINEZ Rep #: [id number] : 1965 Provider: Lisette Banks DO Age/Sex: 53/F [place] [facility] [place]: Signed Intake Intake Visit Reasons: RIGHT HAND Chief Complaint: bilateral thumb Is patient in pain?: Yes Allergies enoxaparin sodium [From Lovenox] Allergy (Verified 04/12/18 12:58) Rash erythromycin lactobionate [From Erythrocin] Allergy (Verified 04/12/18 12:58) Rash Latex, Natural Rubber Allergy (Verified 04/12/18 12:58) Rash rofecoxib [From Vioxx] Allergy (Verified 04/12/18 12:58) Swelling valdecoxib [From Bextra] Allergy (Verified 04/12/18 12:58) Rash amoxicillin trihydrate [From Augmentin] Adverse Reaction (Verified 04/12/18 12:58) Other potassium clavulanate [From Augmentin] Adverse Reaction (Verified 04/12/18 12:58) Other Medications Lisinopril [Zestril] 10 mg PO DAILY 08/07/13 [History Confirmed 02/21/18] Warfarin [Coumadin] 7.5 mg PO SUMOWEFR 08/07/13 [History Confirmed 02/21/18] Cyclobenzaprine [Flexeril] 10 mg PO TID PRN PRN 03/04/14 [History Confirmed 02/21/18] Acetaminophen with Codeine [Tylenol with Codeine #4 Tablet] 1 ea PO Q4H PRN PRN 02/02/16 [History Confirmed 02/21/18] Atenolol [Tenormin (beta yusuf)] 50 mg PO DAILY 02/02/16 [History Confirmed 02/21/18] Gabapentin [Neurontin] 300 mg PO QHS 02/02/16 [History Confirmed 02/21/18] Furosemide [Lasix] 20 mg PO DAILY PRN PRN 02/05/16 [History Confirmed 02/21/18] Amlodipine [Norvasc] 10 mg PO DAILY 07/25/16 [History Confirmed 02/21/18] Atenolol [Tenormin (beta yusuf)] 25 mg PO QHS 07/30/17 [History Confirmed 02/21/18] Warfarin Sodium 5 mg PO TUTHSA 07/30/17 [History Confirmed 02/21/18] Tizanidine HCl [Zanaflex] 4 mg PO Q6H PRN PRN 02/14/18 [History Confirmed 02/21/18] PFSH Medical History H/O: hysterectomy (Inactive) s/p elbow (Inactive) Surgical History h/o right CMC joint arthroplasty (Acute) S/P arthroscopy of knee (Inactive) S/P hernia repair (Inactive) S/P knee replacement (Inactive) Family History Sister Heart disease Brother Heart disease Father Heart disease Mother Breast cancer Social History Smoking Status: Former smoker HPI RIGHT HAND: Details: BECKY MARTINEZ is a 53 year old F here today for right ring finger. Patient notes that she continues to have the bump over her finger. She notes that she had OT this morning and her hand is very sore. Patient notes that she wears a compression sleeve on her hand for a few hours a day. Denies numbness, tingling or other associated symptoms. She had an US which is here for review. ROS Const Reports system reviewed and no additional complaints, except as docu Eyes Reports system reviewed and no additional complaints, except as docu ENT Reports system reviewed and no additional complaints, except as docu Card Reports system reviewed and no additional complaints, except as docu Resp Reports system reviewed and no additional complaints, except as docu GI Reports system reviewed and no additional complaints, except as docu Reports system reviewed and no additional complaints, except as docu Musc Reports joint pain, Reports stiffness Skin/Breast Reports system reviewed and no additional complaints, except as docu Neuro Yes system reviewed and no additional complaints, except as docu Psych Reports system reviewed and no additional complaints, except as docu Endo Reports system reviewed and no additional complaints, except as docu Ortho Exam Right Wrist/Hand Skin/Wound: Yes CDI, Yes Swelling Contralateral Normal: Yes A1 roel trigger: No Right Wrist: Yes ROM-Extension 0-60, ROM-Flexion 0-80, ROM- Supination 0-90 and ROM-Pronation 0-80 Motor: EPL: 4, FDP-2: 4, 1st Dorsal Interosseous: 4, APB: 4 WRIST: decreased finger rom, decreased strength Left Wrist/Hand Skin/Wound: Yes Swelling Assessment AND Plan 1. Neuroma digital nerve G57.60 Plan Personally reviewed the ultrasound and explained that the findings are positive for a neuroma, no know cause of the development. Her treatment options are MRI for further evaluation and if negative we can inject. She continues to have stiffness in all her right fingers and thumb. Explained that her arm pain and radiculopathy can be from her neck, not from her hand. Cont OT. Follow up after MRI or sooner if pain, swelling, numbness or associated symptoms, or concerns develop. All questions answered. Patient in agreement of plan. Orders Orders: Coding Level of Care Code Off vis,est,level 3 Diagnoses Neuroma digital nerve G57.60 04/12/18 8025 <Electronically signed by Lisette Banks DO> Date Lisette Banks DO Cosigner Signature: Date (if applicable) CC: ORTHOPEDIC VISIT Observed: 04/10/2018 Status: F Source: [place] RE[place] 12:36 PM [facility] REPOSITORY [facility] [address] [place] [id number] OFFICE VISIT Date of Service: 04/03/18 MR#: [id number] Acct: [id number] Name: BECKY MARTINEZ Rep #: [id number] : 1965 Provider: Lisette Banks DO Age/Sex: 53/F [place] [facility] [place]: Signed Intake Intake Visit Reasons: RIGHT THUMB Is patient in pain?: Yes Allergies enoxaparin sodium [From Lovenox] Allergy (Verified 04/03/18 09:39) Rash erythromycin lactobionate [From Erythrocin] Allergy (Verified 04/03/18 09:39) Rash Latex, Natural Rubber Allergy (Verified 04/03/18 09:39) Rash rofecoxib [From Vioxx] Allergy (Verified 04/03/18 09:39) Swelling valdecoxib [From Bextra] Allergy (Verified 04/03/18 09:39) Rash amoxicillin trihydrate [From Augmentin] Adverse Reaction (Verified 04/03/18 09:39) Other potassium clavulanate [From Augmentin] Adverse Reaction (Verified 04/03/18 09:39) Other Medications Lisinopril [Zestril] 10 mg PO DAILY 08/07/13 [History Confirmed 02/21/18] Warfarin [Coumadin] 7.5 mg PO SUMOWEFR 08/07/13 [History Confirmed 02/21/18] Cyclobenzaprine [Flexeril] 10 mg PO TID PRN PRN 03/04/14 [History Confirmed 02/21/18] Acetaminophen with Codeine [Tylenol with Codeine #4 Tablet] 1 ea PO Q4H PRN PRN 02/02/16 [History Confirmed 02/21/18] Atenolol [Tenormin (beta yusuf)] 50 mg PO DAILY 02/02/16 [History Confirmed 02/21/18] Gabapentin [Neurontin] 300 mg PO QHS 02/02/16 [History Confirmed 02/21/18] Furosemide [Lasix] 20 mg PO DAILY PRN PRN 02/05/16 [History Confirmed 02/21/18] Amlodipine [Norvasc] 10 mg PO DAILY 07/25/16 [History Confirmed 02/21/18] Atenolol [Tenormin (beta yusuf)] 25 mg PO QHS 07/30/17 [History Confirmed 02/21/18] Warfarin Sodium 5 mg PO TUTHSA 07/30/17 [History Confirmed 02/21/18] Tizanidine HCl [Zanaflex] 4 mg PO Q6H PRN PRN 02/14/18 [History Confirmed 02/21/18] PFSH Medical History H/O: hysterectomy (Inactive) s/p elbow (Inactive) Surgical History h/o right CMC joint arthroplasty (Acute) S/P arthroscopy of knee (Inactive) S/P hernia repair (Inactive) S/P knee replacement (Inactive) Family History Sister Heart disease Brother Heart disease Father Heart disease Mother Breast cancer Social History Smoking Status: Former smoker HPI RIGHT THUMB: Details: BECKY MARTINEZ is a 53 year old F here today for s/p right thumb CMC joint arthroplasty dos 02/21/18. Patient states that she is doing okay. She states that she is disappointed because she isnt back to all activities. She states that she continues to have swelling into her hand. Patient has a sore spot on her ring finger. Patient has been wearing her splint during activities or when she leaves the house. She is currently in OT for range of motion. She has stiffness into her wrist and fingers. Denies numbness, tingling or other associated symptoms. Her incision is fully healed. ROS Const Reports system reviewed and no additional complaints, except as docu Eyes Reports system reviewed and no additional complaints, except as docu ENT Reports system reviewed and no additional complaints, except as docu Card Reports system reviewed and no additional complaints, except as docu Resp Reports system reviewed and no additional complaints, except as docu GI Reports system reviewed and no additional complaints, except as docu Reports system reviewed and no additional complaints, except as docu Musc Reports joint swelling, Reports stiffness, Reports limited joint movement, Reports joint pain Skin/Breast Reports system reviewed and no additional complaints, except as docu Neuro Yes system reviewed and no additional complaints, except as docu Psych Reports system reviewed and no additional complaints, except as docu Endo Reports system reviewed and no additional complaints, except as docu Ortho Exam Right Wrist/Hand Date of Surgery: 02/21/18 Skin/Wound: Yes CDI, Yes healed A1 roel trigger: No WRIST: finger swelling and reduced finger rom. poss granuloma of the 4th finger with blue tone Assessment AND Plan Problems 1. Orthopedic aftercare Z47.89 Plan Instructed to work on rom at home and at 6wks she can be more aggressive. Cont OT and work on swelling reduction and d/c the splint. Follow up in 6wks or sooner if pain, swelling, numbness or associated symptoms, or concerns develop. All questions answered. Patient in agreement of plan. Coding Level of Care Code Global Post Op Diagnoses Orthopedic aftercare Z47.89 04/10/18 1236 <Electronically signed by Lisette Banks DO> Date Lisette Banks DO Cosigner Signature: Date (if applicable) CC: EXT NON VASC Observed: 04/09/2018 Status: F Source: [place] LIMITED/SOFT TISS 10:31 AM [facility] REPOSITORY [facility] Imaging Services [address] [place] [id number] Ext Non Vasc Limited/Soft Tiss MR#: [id number] Acct: [id number] Name: BECKY MARTINEZ Rep #: [id number] : 1965 F 53 From: Sanjay Monroy MD PCP: Starla RAM,Milka Status: REG CLI Study: Ext Non Vasc Limited/Soft Tiss Date of Exam: 04/09/18 Exam# [id number] Ordering Dr: Lisette Banks DO STUDY: SUPERFICIAL ULTRASOUND - RIGHT FOURTH DIGIT. REASON FOR EXAM: Female, 53 years old. Palpable nodule. TECHNIQUE: A superficial ultrasound was performed with real- time and static ashley-scale imaging. COMPARISON: None. FINDINGS: Imaging of the fourth digit was obtained. There is a 4 mm x 4 mm x 2 mm hypoechoic solid nodule along the palmar aspect of the fourth digit. This corresponds to the palpable abnormality. This may represent a neuroma. US/Ext Non Vasc Limited/Soft Tiss IMPRESSION: The palpable abnormality corresponds to a 4 mm x 4 mm x 2 mm hypoechoic solid nodule. Clinical correlation is recommended. Electronically Signed: Sanjay Monroy MD at 9:41 EST Tel [phone], Service support , CC: Lisette Banks DO; Milka Colindres MD Fresh Food Manager: Signed PROTIME Collected: 03/13/2018 Status: F Source: [place] 11:20 AM [facility] REPOSITORY TYPE CODE TESTS RESULT OUT OF RANGE REFERENCE UNITS LAB PSEC 9.7-13.0 sec High PT Sec 21.0 LAB INR 0.9-1.3 High PT INR 2.1 Result Comment: Vitamin K Antagonist (VKA) Therapeutic Range: INR 2 to 3 (Target INR of 2.5) Note: For patients treated with VKA drugs, such as warfarin, the [place] [employer] 2012 Guideline recommends a therapeutic INR range of 2 to 3 (target INR of 2.5). This recommendation includes high-risk patients with antiphospholipid syndrome with previous arterial or venous thromboembolism, current-generation mechanical or bioprosthetic aortic heart valve replacement. Note: Patients with mechanical aortic valve replacement and additional risk factors for thromboembolic events (atrial fibrillation, previous thromboembolism, LV dysfunction, hypercoagulable conditions) or an older generation mechanical AVR (i.e., ball in-Cage) or any mechanical MVR should have a INR therapeutic range of 2.5 to 3.5 (target INR of 3). Max GH, et al. Chest 2012, 141:7S-47S Dhara RA, et al. JACC 2017, 70: 252-289 Performed By: #### PT #### [facility] [address] [place], [place] [address] OT GENERAL EVALUATION Observed: 03/07/2018 Status: F Source: [place] 12:09 PM [facility] REPOSITORY [facility] Occupational Therapy Health[address] [place], [place] [id number] Fax REHABILITATION SERVICES INITIAL EVALUATION MR#: [id number] Acct: [id number] Name: BECKY MARTINEZ Rep #: [id number] : 1965 53 From: Mary Dennis Referring Dr.: Lisette Banks DO Status: REG RCR Insurance: [employer] MEDICARE PPO Eval Date: SELF PAY INSURANCE Patient's Visit Information BECKY MARTINEZ is a 53 year old F, referred to Occupational Therapy by Lisette Banks DO, with a diagnosis of CMC arthoplasty. Date of Evaluation: 03/06/18 Occupational Therapist: Mary Dennis - Subjective Subjective: Arrived from [facility] walk-over post removal of cast. She is 2 weeks s/p CMC arthroplasty. Noted increased pain in R thumb. 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 Her main goal for recovery is getting back to PLOF to complete tasks. - Pain Right Hand 3 Pain Intensity Range: 1, 8 - ROM CMC: opposition R 0-12; L WFL MP: R 0-46, L WFL IP: R 0-21, L WFL MP: IF- PF R 0-51, 0-57, 0-44, 0-23; L WFl PIP: IF R 0-56, 0-47, 0-64, 0-67; L WFl ROM Comments: Increased stiffness in all fingers with decreased ability to make full composite fist as on L hand. - Strength Timber Trimmer: R held, L 50 Lateral Pinch: R held, L 14 Tripod Pinch: R held, L 12 Tip-to-Tip Pinch: R held, L 11 - Edema PIP: R 7.4, L 6.4 cm Other: edema noted throughout finger and thumb; especially over thenar emience - Sensation Sensation Comments: denies numbness/tingling at this time. - In-Hand Manipulation Finger to Palm Translation: Severe - Right, Normal - Left Palm to Finger Translation: Severe - Right, Normal - Left Shift: Moderate - Right, Severe - Right, Normal - Left Rotation: Severe - Right, Normal - Left - DASH-Disabilities of Arm, Shoulder AND Hand DASH Sum: 122 - Goals Goal:: Becky to regain 60 % of is support analyst as compared to L is support analyst to promote increased strength and endurance needed to complete object manipulation for ADl/IAdls by d/c. Goal:: Becky to increased R thumb ROM to within5 degrees of L nonaffected thumb to promote increased ROm needed to complete meaningful activities by time of d/c. Goal:: Becky to have no more than 1/10 pain with repeated movements of R thumb to increased ability to complete ADl/IADLs 4/5 trials 80% of the time by d/c. Goal:: Becky to be mod I to complete edema management program at home to manage edema 4/5 trial s80% of the time to promote increased ROM and strength by d/c. Goal:: Becky to complete daily scar massage to IF dorsum scar and lateral CMC scar to decrease risk of increase scar tissue formation as well as decreased sensitivity 4/5 trial 80% of the time by d/c. Goal:: Becky to be (I) to complete joint protection techniques to B thumbs to promote increased joint integrity during daily tasks 80% of the time by d/c. Goal:: Becky to return to all ADL/IADls including crocheting 4/5 trials 80% of the time to promote increased ROM and strength by time of d/c. - Rehabilitation General Assessment: Arrived as walk over from [facility] orth[facility]ics on 03/06/18. She is 2 weeks post op R CMC arthroplasty. She has limited ROM, strength, increased edema, and ability to complete resistive ADls/IADLs e.g. lifting pots/pans, clothing fasteners and other general FMC related tasks. OT to address deficits and promote increased ROM and strength at appropriate level to return to PLOF with all ADl/IAdls by d/c. Rehabilitation Potential: Good - Anticipated Interventions Anticipated Interventions: A/AAROM/PROM, Strengthening, Edema Control, Wound Care, Modalities, Orthoses, Joint Protection/Energy Conservation, Ergonomic Education, Dynamic Sitting Balance, Fine Motor Coord/Pérez, ADL Training - Visit Plan Frequency: 2x /Week Duration: 6 Weeks General Plan: OT to work on increased ROM, PRE strengthening, edema management, pain management, and general ability to return to PLOF with R affected thumb by d/c. TEXT: Thank you for the opportunity to evaluate your patient. For Medicare and Medicare HMO plans, please review the plan of care and approve it. It will need to be FAXED BACK to us at [phone] for Medicare purposes. Please let me know if there are questions or concerns regarding this plan of care. Physician Signature: Date: <Electronically signed by Mary Dennis > 03/07/18 1209 CC: Lisette Banks DO; Milka Colindres MD KMB Signed For Medicare only, by signing this I certify the plan of care. Physicians Signature Date ORTHOPEDIC VISIT Observed: 03/06/2018 Status: F Source: [place] REPORT 11:38 AM [facility] REPOSITORY [facility] Orthopaedics AND Sports Medicine [address] [place] [address] OFFICE VISIT Date of Service: 03/06/18 MR#: [id number] Acct: [id number] Name: BECKY MARTINEZ Rep #: [id number] : 1965 Provider: Lisette Banks DO Age/Sex: 53/F [place] [facility] [place] [place] Status: Signed Intake Intake Visit Reasons: right thumb Is patient in pain?: Yes Allergies enoxaparin sodium [From Lovenox] Allergy (Verified 03/06/18 09:13) Rash erythromycin lactobionate [From Erythrocin] Allergy (Verified 03/06/18 09:13) Rash Latex, Natural Rubber Allergy (Verified 03/06/18 09:13) Rash rofecoxib [From Vioxx] Allergy (Verified 03/06/18 09:13) Swelling valdecoxib [From Bextra] Allergy (Verified 03/06/18 09:13) Rash amoxicillin trihydrate [From Augmentin] Adverse Reaction (Verified 03/06/18 09:13) Other potassium clavulanate [From Augmentin] Adverse Reaction (Verified 03/06/18 09:13) Other Medications Lisinopril [Zestril] 10 mg PO DAILY 08/07/13 [History Confirmed 02/21/18] Warfarin [Coumadin] 7.5 mg PO SUMOWEFR 08/07/13 [History Confirmed 02/21/18] Cyclobenzaprine [Flexeril] 10 mg PO TID PRN PRN 03/04/14 [History Confirmed 02/21/18] Acetaminophen with Codeine [Tylenol with Codeine #4 Tablet] 1 ea PO Q4H PRN PRN 02/02/16 [History Confirmed 02/21/18] Atenolol [Tenormin (beta yusuf)] 50 mg PO DAILY 02/02/16 [History Confirmed 02/21/18] Gabapentin [Neurontin] 300 mg PO QHS 02/02/16 [History Confirmed 02/21/18] Furosemide [Lasix] 20 mg PO DAILY PRN PRN 02/05/16 [History Confirmed 02/21/18] Amlodipine [Norvasc] 10 mg PO DAILY 07/25/16 [History Confirmed 02/21/18] Atenolol [Tenormin (beta yusuf)] 25 mg PO QHS 07/30/17 [History Confirmed 02/21/18] Warfarin Sodium 5 mg PO TUTHSA 07/30/17 [History Confirmed 02/21/18] Tizanidine HCl [Zanaflex] 4 mg PO Q6H PRN PRN 02/14/18 [History Confirmed 02/21/18] PFSH Medical History H/O: hysterectomy (Inactive) s/p elbow (Inactive) Surgical History h/o right CMC joint arthroplasty (Acute) S/P arthroscopy of knee (Inactive) S/P hernia repair (Inactive) S/P knee replacement (Inactive) Family History Sister Heart disease Brother Heart disease Father Heart disease Mother Breast cancer Social History Smoking Status: Former smoker HPI right thumb: Details: BECKY MARTINEZ is a 53 year old F here today for s/p right CMC joint arthroplasty dos 02/21/18. Patient states that she continues to have pain over her thumb. She is unsure if her splint is no longer fitting her properly. Denies numbness, tingling or other associated symptoms. She denies any fevers or chills. Patient notes htat she continues to have swelling and stiffness into her fingers. Patient has kept her splint on at all times. ROS Const Reports system reviewed and no additional complaints, except as docu Eyes Reports system reviewed and no additional complaints, except as docu ENT Reports system reviewed and no additional complaints, except as docu Card Reports system reviewed and no additional complaints, except as docu Resp Reports system reviewed and no additional complaints, except as docu GI Reports system reviewed and no additional complaints, except as docu Reports system reviewed and no additional complaints, except as docu Musc Reports joint pain, Reports joint swelling Skin/Breast Reports system reviewed and no additional complaints, except as docu Neuro Yes system reviewed and no additional complaints, except as docu Psych Reports system reviewed and no additional complaints, except as docu Endo Reports system reviewed and no additional complaints, except as docu Ortho Exam Right Wrist/Hand Skin/Wound: Yes healing, Yes Swelling, Yes Ecchymosis, Yes suture/cayden removed Contralateral Normal: Yes A1 roel trigger: No Sensation: Radial: I, Ulnar: I, Median: I Left Wrist/Hand Skin/Wound: Yes Swelling, Yes Ecchymosis Right Ankle Skin/Wound: Yes suture/cayden removed Assessment AND Plan 1. Orthopedic aftercare Z47.89 Plan X-rays were reviewed. There is healing noted and alignment. Personally reviewed the surgical images if available, the surgery procedure and reviewed the post op care instructions. Monitor for signs of infection, redness, warmth, swelling in excess, drainage, opening of incision site/sites, and/or fever. Gave OT script today and explained she should wear a brace for next month, will have OT make a splint. Instructed to work on rom. Follow up a month or sooner if pain, swelling, numbness or associated symptoms, or concerns develop. All questions answered. Patient in agreement of plan. Plan Detail Other Orders Orders: Coding Level of Care Code Global Post Op Diagnoses Orthopedic aftercare Z47.89 03/06/18 1138 <Electronically signed by Lisette Banks DO> Date Lisette Banks DO Cosigner Signature: Date (if applicable) CC: FINGER(S) MIN 2 VIEWS Observed: 03/06/2018 Status: F Source: [place] 9:28 AM [facility] REPOSITORY [facility] Imaging Services [address] [place] [address] Finger(s) Min 2 Views MR#: [id number] Acct: [id number] Name: BECKY MARTINEZ Rep #: [id number] : 1965 F 53 From: Cristian Peres MD PCP: Milka Colindres MD Status: REG CLI Study: Finger(s) Min 2 Views Date of Exam: 03/06/18 Exam# [id number] Ordering Dr: Lisette Banks DO STUDY: X-RAY - RIGHT HAND, ATTENTION FIRST FINGER REASON FOR EXAM: Female, 53 years old. One month postoperative after carpometacarpal arthroplasty. TECHNIQUE: 3 view(s) of the finger were obtained. COMPARISON: 2017 FINDINGS: The patient has undergone resection of the trapezium with a small portion of the trapezium remaining. There are surgical changes of the bases of the first and second metacarpals. There is arthrosis of the first metacarpophalangeal and interphalangeal joint. There is marked vascular calcification. RAD/Finger(s) Min 2 Views IMPRESSION: Postsurgical changes without complications. Electronically Signed: Cristian Peres MD at 14:05 EST , Service support , CC: Lisette Banks DO; Milka Colindres MD Fresh Food Manager: Signed OPERATIVE REPORT Observed: 02/28/2018 Status: F Source: [place] 2:11 PM [facility] REPOSITORY [facility] Medical Records Department [address] [place] [address] Operative Report 02/21/18 0746 MR#: [id number] Acct: [id number] Name: BECKY MARTINEZ Rep #: [id number] : 1965 53 From: Lisette Banks DO PCP: Starla RAM,Milka Status: [facility] [place] [facility] [place] Report of Operation Date of Procedure: 02/21/18 Pre-Operative Diagnosis: right cmc osteoarthritis(carpometacarpal) Post-Operative Diagnosis: same Surgery/Procedure Performed:: right cmc arthroplasty with tight rope arthrex distribution associate: Ha Carson Type of Anesthesia:: General Anesthesiologist: David Gil Specimen's removed: trapezium Drains: none Estimated Blood Loss (mL): 10cc Fluids Replaced: 1200cc lr Description of Procedure: Preoperative note Patient is a 53-year-old female with mild osteoarthritis of her CMC joint however continued pain did have good result and resolution of symptoms with CMC injections however they stopped working patient is unable to perform her activities of daily living and elected to proceed with right CMC arthroplasty. Risks benefits and alternatives surgery discussed with patient. Risks including but not limited to blood loss, blood clot, infection, neurovascular injury, failure procedure, loss of life and loss of limb. Patient is aware like proceed with right CMC arthroplasty and left CMC injection. Operative note Patient seen and examined preoperative holding area. Right arm is hand was marked. Patient was brought to the operating room placed supine on the operating room table. Sign, anesthesia, antibiotics were administered. All bony prominence is well- padded SCDs placed on her bilateral lower extremities. The right arm was prepped and draped in usual sterile fashion with a tourniquet around her arm. We marked out our incision used fluoroscopy to ensure that we had good length of the incision for both our CMC as well as where the tight rib can be sewed on the between the at the dorsal second dorsal interosseous. The arm was elevated segment in turn was raised her pressure of 250 torr. Timeout was performed. We then used a 15 blade to cut the skin are incision ran from the base of the first metacarpal to the radial styloid. Dorsally. We then dissected down tenotomies making sure to protect all neurovascular structures down to the level of the extensor dorsal compartment first. We then released this proximally under standard technique. Then able to visualize the trapezium we put an 18-gauge needle into the trapezium confirm that that was with the correct bone on fluoroscopy. We then used a 15 blade and a Isamar blade combination and first down the bone excised and did a capsulotomy then we excised the trapezium in its entirety. We confirmed on fluoroscopy that we did remove the entire trapezium. We then used ArthFloobits mini tight rope system and placed our guidewire starting at the base of the first metacarpal and drilling it to the second metacarpal and ensuring that we were parallel to the joint and maintaining her arc of our metacarpals. We then tied the button on the second metacarpal in standard technique and then ensure that we had good flexion opposition, circumduction and a negative shuck test. We then tightened it further the button down to bone and sized sewed the button down to bone after we had no shock. We then irrigated both incision sites copious amounts of sterile saline. We closed the periosteum over top of the button and the suture. We closed the skin with 4-0 running Monocryl at the between the first and second interspace and then we closed our CMC capsule with a 2-0 Vicryl the subcuticular with a 4-0 Vicryl and the skin with a 4-0 nylon. Sterile dressings were applied a thumb spica splint was applied to the right hand. Tourniquet was deflated for a total working time of 119 minutes. We then injected the left CMC joint under sterile technique. Taught patient tolerated procedure well there are no complications transferred to recovery room in stable condition. Postoperative note Nonweightbearing right upper extremity Maintain splint until seen postop visit Call with increased pain numbness tingling or further issues arise Pharmacy has prescription Follow-up in 2 weeks This note was generated with Satiety dictation software. It may contain incorrect words, spelling, and punctuation that were not noted in checking the note before signing. 02/28/18 1411 <Electronically signed by Lisette Banks DO> Date Lisette Banks DO CC: Lisette Banks DO; Milka Colindres MD Signed DISCHARGE INSTRUCTION Observed: 02/21/2018 Status: F Source: [place] 7:46 AM [facility] REPOSITORY [facility] Medical Records Department [address] [place] [address] Instructions for Home/Discharge Instructions 02/21/18 0745 MR#: [id number] Acct: [id number] Name: BECKY MARTINEZ Rep #: [id number] : 1965 53 From: Lisette Banks DO PCP: Milka Colindres MD Status: REG SDC Discharge Diet: No Restrictions - leave splint on until seen in clinic, call with concerns, follow up in 2 weeks, do not take tylenol until percocet has stopped Discharge Activity: May Not Drive May shower in (days): 1 Ice area for (Minutes): 20 - Every hour while awake. Weight Bearing Status: Weight bearing as tolerated Keep extremity elevated above heart level: Operative Extremity Call your doctor if your incision/area has: Continuous Slow Oozing, Sudden Increased Bleeding, Increased Pain/ Swelling, Increased Redness, Foul Smelling Discharge Call your doctor if you observe: Fever of 101 or Higher, Coldness, Increased Pain, Numbness or Tingling, Change in Color, Calf discomfort Allergies/Adverse Reactions: Allergies enoxaparin sodium [From Lovenox] Allergy (Verified 02/14/18 12:55) Rash erythromycin lactobionate [From Erythrocin] Allergy (Verified 02/14/18 12:55) Rash Latex, Natural Rubber Allergy (Verified 02/14/18 12:55) Rash rofecoxib [From Vioxx] Allergy (Verified 02/14/18 12:55) Swelling valdecoxib [From Bextra] Allergy (Verified 02/14/18 12:55) Rash amoxicillin trihydrate [From Augmentin] Adverse Reaction (Verified 02/14/18 12:55) Other potassium clavulanate [From Augmentin] Adverse Reaction (Verified 02/14/18 12:55) Other Medications to take at Discharge Lisinopril [Zestril] 10 mg PO DAILY 08/07/13 Warfarin [Coumadin] 7.5 mg PO SUMOWEFR 08/07/13 Cyclobenzaprine [Flexeril] 10 mg PO TID PRN PRN 03/04/14 Acetaminophen with Codeine [Tylenol with Codeine #4 Tablet] 1 each PO Q4H PRN PRN 02/02/16 Atenolol [Tenormin (beta yusuf)] 50 mg PO DAILY 02/02/16 Gabapentin [Neurontin] 300 mg PO QHS 02/02/16 Furosemide [Lasix] 20 mg PO DAILY PRN PRN 02/05/16 Amlodipine [Norvasc] 10 mg PO DAILY 07/25/16 Atenolol [Tenormin (beta yusuf)] 25 mg PO QHS 07/30/17 Warfarin Sodium 5 mg PO TUTHSA 07/30/17 Tizanidine HCl [Zanaflex] 4 mg PO Q6H PRN PRN 02/14/18 Oxycodone HCl/Acetaminophen [Percocet 5/325] 1 - 2 tablet PO Q6H PRN PRN 3 Days #20 tablet 02/21/18 The following prescriptions were given: Oxycodone HCl/Acetaminophen [Percocet 5/325] 1 - 2 tablet PO Q6H PRN PRN 3 Days #20 tablet PRN Reason: Pain Primary Care Physician: Milka Colindres MD [Primary Care Provider] - Test Results: Test results from this visit will be discussed in further detail at your follow-up appointment, if applicable. Please Follow Up With: Lisette Banks DO - [phone] 02/21/18 0746 <Electronically signed by Lisette Banks DO> Date Lisette Banks DO CC: Milka Colindres MD MISCELLANEOUS SPECIMEN Observed: 02/21/2018 Status: F Source: [place] 7:30 AM [facility] REPOSITORY Patient: BECKY MARTINEZ : 1965 (53/F) Acct Num: [id number] Phys: Lisette Banks DO Unit Num: [id number] Loc: [facility] [place] Specimen: [id number] Received: 02/21/18 - 1142 Spec Type: MISC TISSUES 1 TISSUES: Bone of hand, NOS GROSS DESCRIPTION Received in fixative is one container labeled with the patient's name and designated right trapezium. The specimen consists of a piece of bone measuring 2 x 1.5 x 1.5 cm. The entire specimen is submitted in two cassettes after decalcification. / SJ:agustina 02/21/18 TC:5 CPT: 26899, 86195 HEADER OPERATION: Carpometacarpal arthroplasty right thumb; left thumb carpometacarpal steroid injection PRE-OP DIAGNOSIS: Right carpometacarpal osteoarthritis TISSUE SUBMITTED: Right trapezium MICROSCOPIC DESCRIPTION Slides are reviewed. MICROSCOPIC DIAGNOSIS Right trapezium: A piece of bone with reactive changes, clinically carpometacarpal osteoarthritis. SJ:agustina 02/26/18 Signed Moises Spain 02/26/18 <signature on file> Performed By: #### PMISC #### [facility] [address] [place] [address], [address] PROTIME W/INR Collected: 02/21/2018 Status: F Source: [place] 6:34 AM [facility] REPOSITORY TYPE CODE TESTS RESULT OUT OF RANGE REFERENCE UNITS LAB L9200.1001 11.9-14.4 SEC Normal PROTIME ISTAT 13.7 Result Comment: Reference Range 11.9 - 14.4 LAB L9200.2000 Normal INR ISTAT 1.20 Result Comment: Critical Value > 3.5 Performed By: #### L9200.0000 #### [facility] Point of Care [address] [place] [address] FINGER(S) MIN 2 VIEWS Observed: 02/21/2018 Status: F Source: [place] 12:17 AM [facility] REPOSITORY [facility] Imaging Services [address] [address] Finger(s) Min 2 Views MR#: [id number] Acct: [id number] Name: BECKY MARTINEZ Rep #: [id number] : 1965 F 53 From: Pee Andre MD PCP: Milka Colindres MD Status: REG SD Study: Finger(s) Min 2 Views Date of Exam: 02/21/18 Exam# [id number] Ordering Dr: Lisette Banks DO STUDY: X-RAY - RIGHT HAND, ATTENTION FIRST CARPOMETACARPAL JOINT REASON FOR EXAM: Right thumb carpometacarpal arthroplasty. TECHNIQUE: 3 intraoperative fluoroscopic view(s) were obtained. COMPARISON: Radiographs 01/18/2017. FINDINGS: There is resection arthroplasty of the first carpometacarpal joint. Electronically Signed: Pee Andre MD at 12:48 EDT Tel , Service support , RAD/Finger(s) Min 2 Views CC: Lisette Banks DO; Milka Colindres MD Fresh Food Manager: Signed PROGRESS Observed: 02/09/2018 Status: COMPLETED Source: [place] 2:12 PM [facility] REPOSITORY HNO ID: [id number] Author: Milka Colindres Service: (none) Author Type: Physician Type: Progress Notes Filed: 02/09/2018 4:30 PM Note Text: I agree with the advice given Milka Colindres MD PROGRESS Observed: 02/09/2018 Status: COMPLETED Source: [place] 11:24 AM [facility] REPOSITORY HNO ID: [id number] Author: Priscila Blanton RN Service: (none) Author Type: (none) Type: Progress Notes Filed: 02/09/2018 11:26 AM Note Text: patient had inr completed at [facility] patients inr is 2.3 (patients inr range is 2.0-3.0) patient is currently taking 5mg Tues,Thurs,Sat and 7.5mg all other days patients last dose change was on 11/16/17 due to a high level of 3.7 (dose at that time was 5mg Wed and 7.5mg all other days) patient has had no changes in medication and no missed doses and no change in diet FYI - patient will be stopping coumadin on 10/20/18 for surgery on 02/21/18 and then will resume dosing on 02/22/18 Advised patient to continue on the same dose(s) and that they would only be contacted regarding dosage and follow up instructions after review with provider, if a change is needed. Written instructions given and patient verbalized understanding. Presently scheduled in 3 weeks (03/02/18) for follow up INR which will be 1 week after patient resume coumadin Observed: 01/21/2018 Status: F Source: [place] URINE CULTURE 3:30 PM [facility] REPOSITORY Sp. Request/Comment: - Specimen received in preservative Culture Result - 10,000 - <50,000 CFU/ml Escherichia coli --> ABNORMAL ALERT ORGANISM: Escherichia coli METHOD: Minimum inhibitory concentration(Vitek) Antibiotic Interp ELIAN Status Ampicillin RESISTANT >=32 F Gentamicin SUSCEPTIBLE 4 F Trimeth sulfameth RESISTANT >=320 F Cefazolin SUSCEPTIBLE <=4 F CLSI breakpoints for therapy of uncomplicated UTI's due to E.coli, K.pneumoniae, and P.mirabilis were applied and may be used to predict the activity of oral agents(cefaclor, cefdinir, cefpodoxime, cefp rozil, cefuroxime, cephalexin, loracarbef). Ciprofloxacin SUSCEPTIBLE <=0.25 F Nitrofurantoin SUSCEPTIBLE <=16 F Cefepime SUSCEPTIBLE <=1 F Piperacillin/Tazobac SUSCEPTIBLE <=4 F Ampicillin Sulbact RESISTANT >=32 F Ceftriaxone SUSCEPTIBLE <=1 F Meropenem SUSCEPTIBLE <=0.25 F Ertapenem SUSCEPTIBLE <=0.5 F Performed By: #### URCUL #### [facility] [address] [id number] PROGRESS Observed: 01/20/2018 Status: COMPLETED Source: [place] 3:41 PM [facility] REPOSITORY HNO ID: [id number] Author: Antoinette Melendez Service: (none) Author Type: Nurse Practitioner Type: Progress Notes Filed: 01/20/2018 3:51 PM Note Text: Subjective HPI Patient presents with: UTI symptoms dysuria, frequency, urgency, left flank pain x 3 days Pt states hx of kidney stones. Denies any otc treatment for symptoms. Review of Systems Constitutional: Negative for chills, fever and malaise/fatigue. Gastrointestinal: Negative for abdominal pain, diarrhea, nausea and vomiting. Genitourinary: Positive for dysuria, flank pain, frequency and urgency. Negative for hematuria. Denies vaginal discharge/itchiness Denies exposure to STD Musculoskeletal: Negative for back pain. All other systems reviewed and are negative. 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 - Diffuse cystic mastopathy - Diverticulosis of colon (without mention of hemorrhage) Diverticulosis - DVT of leg (deep venous thrombosis) (HCC) Right leg - Hypertension - Irritable bowel syndrome - Localized osteoarthrosis not specified whether primary or secondary, other specified sites RT KNEE - Migraine, unspecified, with intractable migraine, so stated, without mention of status migrainosus Migraine - Obesity, unspecified - Osteoarthritis of right knee - Other and unspecified disc disorder of unspecified region Intervertebral disc disorders - Other disorders of bladder - Personal history of colonic polyps 01/21/2015 - PMH - PAST MEDICAL HISTORY OF 1989 Pulmonary Embolism PAST SURGICAL HISTORY Procedure Laterality Date - APPENDECTOMY - COLONOSCOP W/ OR W/O [facility] SPEC 01/21/2015 Repeat 2024 - I/D PERIANAL ABSCESS, SUPERFICIAL 5-2-12 - KNEE SCOPE,DIAGNOSTIC 2007 Right knee - LIGATE FALLOPIAN TUBE - ME ANESTH,DX ARTHROSCOPIC PROC KNEE JOINT 1994 LT KNEE - ME ANESTH,DX ARTHROSCOPIC PROC KNEE JOINT 1994 RT KNEE - REDUCTION OF LARGE BREAST Breast reduction - REMOVAL GALLBLADDER Cholecystectomy - REPAIR ANAL FISTULA W/NICHELLE 12/09/11 - REPAIR UMBILICAL OUMOU,5+Y/O,REDUC Hernia repair, umbilical >5yr, x2 with mesh - TOTAL ABDOM HYSTERECTOMY Hysterectomy, ARIELLE - TOTAL KNEE REPLACEMENT Right 06/27/2011 - TREAT ECTOPIC PREG,NON REMVAL Ectopic ALLERGIES Augmentin [Amoxicillin-Pot Clavulanate]; Bextra [Valdecoxib]; Celebrex [Celecoxib]; Erythromycin; Latex; Lovenox [Enoxaparin Sodium]; Vioxx [Rofecoxib]; Voltaren [Diclofenac Sodium] MEDICATIONS tiZANidine (ZANAFLEX) 4 mg tablet Take 1 tablet by mouth every 6 hours as needed. gabapentin (NEURONTIN) 300 mg capsule Take 1 capsule by mouth daily at bedtime for 90 days. atenolol (TENORMIN) 50 mg tablet Take 1 tablet by mouth once daily. Take 50 mg in the AM, 25 mg in the PM warfarin (COUMADIN) 5 mg tablet Take 5 T/TH/Sat and 7.5 mg all other days or as directed. triamcinolone acetonide (KENALOG) 0.1 % cream Apply 1 application to affected area twice daily. Apply to affected area. Location: right leg lisinopril (ZESTRIL, PRINIVIL) 20 mg tablet Take 0.5 tablets by mouth once daily. predniSONE (DELTASONE) 10 mg tablet Take 2 pills daily for 4 days, then take 1 pill daily for 4 days, then take 1/2 pill daily for 4 days amLODIPine (NORVASC) 10 mg tablet Take 1 tablet by mouth once daily. furosemide (LASIX) 20 mg tablet Take 1 tablet by mouth once daily. NEEDED nitroglycerin sublingual (NITROQUICK) 0.4 mg SL tablet Dissolve 1 tablet under the tongue as needed. FOR CHEST PAIN. IF NO RELIEF CALL 911 phenazopyridine (PYRIDIUM) 200 mg tablet TO BE TAKEN DIRECTED BY MOUTH ONE(1) TABLET THREE TIMES DAILY X 2 DAYS acetaminophen-codeine (TYLENOL-COD #4) 300-60 mg per tablet Take 1 tablet by mouth twice daily as needed for Pain for up to 15 days. FAMILY HISTORY Problem Relation Age of Onset - Heart Father [place] age 50, sudden - Breast Cancer Mother - Coronary Artery Disease Brother Quadruple by-pass age 50 - Coronary Artery Disease Sister [place] late 30's - Stroke Sister - other (Other) Brother pulmonary embolism - other (Other) Sister pulmonary embolism - Heart Sister heart attack age 50, stent - Diabetes Sister older sister; obese Social History Substance Use Topics - Smoking status: Former Smoker Packs/day: 0.50 Years: 2.00 Types: Cigarettes Quit date: 05/01/1979 - Smokeless tobacco: Never Used - Alcohol use Yes Comment: socially Objective Physical Exam Constitutional: She is well-developed, well-nourished, and in no distress. HENT: Head: Normocephalic. Eyes: Conjunctivae are normal. Neck: Normal range of motion. Cardiovascular: Normal rate, regular rhythm and normal heart sounds. Pulmonary/Chest: Effort normal and breath sounds normal. Abdominal: Soft. She exhibits no distension. There is tenderness in the left lower quadrant. There is no rebound, no guarding and no CVA tenderness. Skin: Skin is warm and dry. No rash noted. Nursing note and vitals reviewed. ASSESSMENT/PLAN: 1. Urinary urgency - ICD9: 788.63, ICD10: R39.15 - Suspected kidney stones - Pt with hx - Reviewed red flags - Push fluids, analgesics PRN - If worsening pain please go to local ED for further eval/tx - Pt verbalized understanding. - UA DIP, URINE (POC)-hematuria - URINE CULTURE Prescription instructions reviewed with patient as applicable. Patient advised if symptoms do not improve or if symptoms worsen sooner, to contact their primary care physician. Potential red flag symptoms discussed with the patient. Reviewed appropriate action plan to take if red flag symptoms occur. Patient agreeable to treatment plan. Antoinette Melendez APRN.JOHN CNOV Observed: 01/20/2018 Status: COMPLETED Source: [place] 3:30 PM [facility] REPOSITORY Office Visit ([facility]) BECKY MARTINEZ ([id number]) 1965 F Date Time Provider Department 01/20/18 3:30 PM ANTOINETTE MELENDEZ (SLURRY BLENDER) WSTR During your visit today, we recorded the following information about you: Temperature Pulse Blood pressure Weight 98.2 degrees 76/minute 130/80 176.4 kg Antoinette Melendez APRN.CNP 01/20/2018 3:32 PM Signed KIDNEY STONES GENERAL INFORMATION: Kidney stones occur when certain chemicals in urine form crystals that stick together. A stone may be as small as a grain of sand or as large as a golf ball. Smaller stones can pass out of the body with the urine. Larger stones cause severe pain (renal colic) as they move from the kidney to the bladder. Most kidney stones will pass naturally in a few days. Once the stone reaches the bladder, the pain stops. The stone is then passed with the urine, often with little or no discomfort. However, sometimes the stone gets stuck along the way and can block the flow of urine, cause continued pain, or make you more susceptible to a urinary tract infection. These stones must be removed or broken into small pieces. INSTRUCTIONS: 1. Take aspirin, acetaminophen, or ibuprofen for pain if the doctor did not prescribe any other pain medication. Otherwise, take the medicine as prescribed. 2. Drink 8 to 10 glasses of fluids, especially water, every day. This helps flush the stone through the urinary tract. It will also help prevent other stones from forming. 3. Strain your urine every time you go to the bathroom. This will catch the stone when it passes through your system. To do this, you can urinate through a special strainer or into a piece of thin cloth, like cheesecloth. You may find it easier to urinate into a glass jar so that when the stone passes, you will see it at the bottom of the jar. Save the stone and take it to your doctor so that he or she will know best how to treat you. 4. Stay as active as possible because this may help the stone pass. 5. If you have a job in which sudden pain might be dangerous, such as working with machinery, up on ladders or roofs, stay home from work until the stone passes. 6. Discuss with your doctor the need to adjust your diet, depending on the type of chemicals in your stone. CONTACT YOUR DOCTOR OR RETURN TO THE E.D. IF: 1. You have a temperature over 101 F (38.3 C). 2. You have severe pain. 3. You have stinging or burning when you pass urine, or feel a frequent urge to urinate. These may be signs of infection and you would need antibiotics to treat it. 4. You develop nausea or vomiting. Antoinette Melendez APRN.JOHN 01/20/2018 3:51 PM Signed Subjective HPI Patient presents with: UTI symptoms dysuria, frequency, urgency, left flank pain x 3 days Pt states hx of kidney stones. Denies any otc treatment for symptoms. Review of Systems Constitutional: Negative for chills, fever and malaise/fatigue. Gastrointestinal: Negative for abdominal pain, diarrhea, nausea and vomiting. Genitourinary: Positive for dysuria, flank pain, frequency and urgency. Negative for hematuria. Denies vaginal discharge/itchiness Denies exposure to STD Musculoskeletal: Negative for back pain. All other systems reviewed and are negative. 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 - Diffuse cystic mastopathy - Diverticulosis of colon (without mention of hemorrhage) Diverticulosis - DVT of leg (deep venous thrombosis) (HCC) Right leg - Hypertension - Irritable bowel syndrome - Localized osteoarthrosis not specified whether primary or secondary, other specified sites RT KNEE - Migraine, unspecified, with intractable migraine, so stated, without mention of status migrainosus Migraine - Obesity, unspecified - Osteoarthritis of right knee - Other and unspecified disc disorder of unspecified region Intervertebral disc disorders - Other disorders of bladder - Personal history of colonic polyps 01/21/2015 - PMH - PAST MEDICAL HISTORY OF 1989 Pulmonary Embolism PAST SURGICAL HISTORY Procedure Laterality Date - APPENDECTOMY - COLONOSCOP W/ OR W/O [facility] SPEC 01/21/2015 Repeat 2024 - I/D PERIANAL ABSCESS, SUPERFICIAL 5-2-12 - KNEE SCOPE,DIAGNOSTIC 2007 Right knee - LIGATE FALLOPIAN TUBE - ME ANESTH,DX ARTHROSCOPIC PROC KNEE JOINT 1994 LT KNEE - ME ANESTH,DX ARTHROSCOPIC PROC KNEE JOINT 1994 RT KNEE - REDUCTION OF LARGE BREAST Breast reduction - REMOVAL GALLBLADDER Cholecystectomy - REPAIR ANAL FISTULA W/NICHELLE 12/09/11 - REPAIR UMBILICAL OUMOU,5+Y/O,REDUC Hernia repair, umbilical >5yr, x2 with mesh - TOTAL ABDOM HYSTERECTOMY Hysterectomy, ARIELLE - TOTAL KNEE REPLACEMENT Right 06/27/2011 - TREAT ECTOPIC PREG,NON REMVAL Ectopic ALLERGIES Augmentin [Amoxicillin-Pot Clavulanate]; Bextra [Valdecoxib]; Celebrex [Celecoxib]; Erythromycin; Latex; Lovenox [Enoxaparin Sodium]; Vioxx [Rofecoxib]; Voltaren [Diclofenac Sodium] MEDICATIONS tiZANidine (ZANAFLEX) 4 mg tablet Take 1 tablet by mouth every 6 hours as needed. gabapentin (NEURONTIN) 300 mg capsule Take 1 capsule by mouth daily at bedtime for 90 days. atenolol (TENORMIN) 50 mg tablet Take 1 tablet by mouth once daily. Take 50 mg in the AM, 25 mg in the PM warfarin (COUMADIN) 5 mg tablet Take 5 T/TH/Sat and 7.5 mg all other days or as directed. triamcinolone acetonide (KENALOG) 0.1 % cream Apply 1 application to affected area twice daily. Apply to affected area. Location: right leg lisinopril (ZESTRIL, PRINIVIL) 20 mg tablet Take 0.5 tablets by mouth once daily. predniSONE (DELTASONE) 10 mg tablet Take 2 pills daily for 4 days, then take 1 pill daily for 4 days, then take 1/2 pill daily for 4 days amLODIPine (NORVASC) 10 mg tablet Take 1 tablet by mouth once daily. furosemide (LASIX) 20 mg tablet Take 1 tablet by mouth once daily. NEEDED nitroglycerin sublingual (NITROQUICK) 0.4 mg SL tablet Dissolve 1 tablet under the tongue as needed. FOR CHEST PAIN. IF NO RELIEF CALL 911 phenazopyridine (PYRIDIUM) 200 mg tablet TO BE TAKEN DIRECTED BY MOUTH ONE(1) TABLET THREE TIMES DAILY X 2 DAYS acetaminophen-codeine (TYLENOL-COD #4) 300-60 mg per tablet Take 1 tablet by mouth twice daily as needed for Pain for up to 15 days. FAMILY HISTORY Problem Relation Age of Onset - Heart Father [place] age 50, sudden - Breast Cancer Mother - Coronary Artery Disease Brother Quadruple by-pass age 50 - Coronary Artery Disease Sister [place] late 30's - Stroke Sister - other (Other) Brother pulmonary embolism - other (Other) Sister pulmonary embolism - Heart Sister heart attack age 50, stent - Diabetes Sister older sister; obese Social History Substance Use Topics - Smoking status: Former Smoker Packs/day: 0.50 Years: 2.00 Types: Cigarettes Quit date: 05/01/1979 - Smokeless tobacco: Never Used - Alcohol use Yes Comment: socially Objective Physical Exam Constitutional: She is well-developed, well-nourished, and in no distress. HENT: Head: Normocephalic. Eyes: Conjunctivae are normal. Neck: Normal range of motion. Cardiovascular: Normal rate, regular rhythm and normal heart sounds. Pulmonary/Chest: Effort normal and breath sounds normal. Abdominal: Soft. She exhibits no distension. There is tenderness in the left lower quadrant. There is no rebound, no guarding and no CVA tenderness. Skin: Skin is warm and dry. No rash noted. Nursing note and vitals reviewed. ASSESSMENT/PLAN: 1. Urinary urgency - ICD9: 788.63, ICD10: R39.15 - Suspected kidney stones - Pt with hx - Reviewed red flags - Push fluids, analgesics PRN - If worsening pain please go to local ED for further eval/tx - Pt verbalized understanding. - UA DIP, URINE (POC)-hematuria - URINE CULTURE Prescription instructions reviewed with patient as applicable. Patient advised if symptoms do not improve or if symptoms worsen sooner, to contact their primary care physician. Potential red flag symptoms discussed with the patient. Reviewed appropriate action plan to take if red flag symptoms occur. Patient agreeable to treatment plan. Antoinette Melendez APRN.DOCUMENT REVIEW ATTORNEY Referring Provider: SELF [[id number]] Allergies As of Date: 01/20/2018 Noted Allergy Reaction AUGMENTIN (AMOXICILLIN-POT CLAVUL*12/31/2004 14 - Other: See Comments Comments: Adverse effect, developed yeast infection BEXTRA (VALDECOXIB) 12/31/2004 7 - Swelling Comments: Ankle swelling CELEBREX (CELECOXIB) 12/31/2004 7 - Swelling Comments: ankle swelling ERYTHROMYCIN 12/31/2004 2 - Rash LATEX 12/31/2004 LOVENOX (ENOXAPARIN SODIUM) 06/23/2011 2 - Rash VIOXX (ROFECOXIB) 12/31/2004 7 - Swelling Comments: ankle swelling VOLTAREN (DICLOFENAC SODIUM) 12/31/2004 7 - Swelling Comments: ankle swelling Date Reviewed: 01/20/2018 Reviewed by: Mackenzie Hernandez Ma - Fully Assessed Reason for Visit: UTI [116] Cmt: UTI, urgency Primary Visit Diagnosis:Urinary urgency [R39.15] Order(s):UA DIP, URINE (POC) [6941177] Order #: [id number]. #:[id number] URINE CULTURE [[facility]] Order #: [id number] FUTURE phenazopyridine (PYRIDIUM) 200 mg tabletTO BE TAKEN DIRECTED BY MOUTH ONE(1) TABLET THREE TIMES DAILY X 2 DAYSDisp: 6 tabletRfl: 0 Prescriptions as of 01/20/2018 Sig: TIZANIDINE 4 MG TABLET Take 1 tablet by mouth every * GABAPENTIN 300 MG CAPSULE Take 1 capsule by mouth daily* ATENOLOL 50 MG TABLET Take 1 tablet by mouth once d* WARFARIN 5 MG TABLET Take 5 T/TH/Sat and 7.5 mg al* TRIAMCINOLONE ACETONIDE 0.1 %* Apply 1 application to affect* LISINOPRIL 20 MG TABLET Take 0.5 tablets by mouth onc* PREDNISONE 10 MG TABLET Take 2 pills daily for 4 days* AMLODIPINE 10 MG TABLET Take 1 tablet by mouth once d* FUROSEMIDE 20 MG TABLET Take 1 tablet by mouth once d* NITROGLYCERIN 0.4 MG SUBLINGU* Dissolve 1 tablet under the t* PHENAZOPYRIDINE 200 MG TABLET TO BE TAKEN DIRECTED BY MO* ACETAMINOPHEN 300 MG-CODEINE * Take 1 tablet by mouth twice * Problem List As Of Date 01/20/2018 Noted Resolved Allergic Rhinitis, Cause Unspecified [J30.9] INVALID FOR* Diverticulosis of Colon (without Mention of Hem* More... Irritable Bowel Syndrome [K58.9] Migraine NOS/Intractable [G43.919] More... 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 Other and Unspecified Disc Disorder of Unspecif* More... 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 Restless Legs Syndrome (RLS) [G25.81] INVALID FOR* Obstructive Sleep Apnea (Adult) (Pediatric) [G4*INVALID FOR* Essential Hypertension, Benign [I10] INVALID FOR* Other Abnormal Glucose [R73.09] INVALID FOR* Dysmetabolic Syndrome X [E88.81] INVALID FOR* Palpitations [R00.2] INVALID FOR*03/09/2012 More... Routine Gynecological Examination [Z01.419] INVALID FOR* Class: Chronic More... Obesity, Morbid [E66.01] INVALID FOR* Abdominal pain, left lower quadrant [R10.32] INVALID FOR*03/09/2012 Diarrhea [R19.7] INVALID FOR* Knee pain [M25.569] INVALID FOR* More... 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 A stone may be as small as a grain of sand or as large as a golf ball. Smaller stones can pass out of the body with the urine. Larger stones cause severe pain (renal colic) as they move from the kidney to the bladder. Most kidney stones will pass naturally in a few days. Once the stone reaches the bladder, the pain stops. The stone is then passed with the urine, often with little or no discomfort. However, sometimes the stone gets stuck along the way and can block the flow of urine, cause continued pain, or make you more susceptible to a urinary tract infection. These stones must be removed or broken into small pieces. INSTRUCTIONS: 1. Take aspirin, acetaminophen, or ibuprofen for pain if the doctor did not prescribe any other pain medication. Otherwise, take the medicine as prescribed. 2. Drink 8 to 10 glasses of fluids, especially water, every day. This helps flush the stone through the urinary tract. It will also help prevent other stones from forming. 3. Strain your urine every time you go to the bathroom. This will catch the stone when it passes through your system. To do this, you can urinate through a special strainer or into a piece of thin cloth, like cheesecloth. You may find it easier to urinate into a glass jar so that when the stone passes, you will see it at the bottom of the jar. Save the stone and take it to your doctor so that he or she will know best how to treat you. 4. Stay as active as possible because this may help the stone pass. 5. If you have a job in which sudden pain might be dangerous, such as working with machinery, up on ladders or roofs, stay home from work until the stone passes. 6. Discuss with your doctor the need to adjust your diet, depending on the type of chemicals in your stone. CONTACT YOUR DOCTOR OR RETURN TO THE E.D. IF: 1. You have a temperature over 101 F (38.3 C). 2. You have severe pain. 3. You have stinging or burning when you pass urine, or feel a frequent urge to urinate. These may be signs of infection and you would need antibiotics to treat it. 4. You develop nausea or vomiting. Prescriptions ordered this encounter Disp Refills Start End PHENAZOPYRIDINE 200 MG TABLET 6 ta* 0 01/20/2018 Sig: TO BE TAKEN DIRECTED BY MOUTH ONE(1) TABLET THREE TIMES DAILY X 2 DAYS Disposition: Return if symptoms worsen or fail to improve. Follow-up and Disposition History Recorded Encounter Status:Closed by ANTOINETTE MELENDEZ on 01/20/18 PROGRESS Observed: 01/19/2018 Status: COMPLETED Source: [place] 1:53 PM [facility] REPOSITORY O ID: [id number] Author: Milka Colindres Service: (none) Author Type: Physician Type: Progress Notes Filed: 01/19/2018 2:59 PM Note Text: I agree with the advice given Milka Colindres MD ORTHOPEDIC VISIT Observed: 01/19/2018 Status: F Source: [place] [facility] 1:03 PM [facility] REPOSITORY [facility] Orth[facility] [address] [place] [id number] OFFICE VISIT Date of Service: 01/19/18 MR#: [id number] Acct: [id number] Name: BECKY MARTINEZ Soheila Rep #: [id number] : 1965 Provider: LISA Carson Age/Sex: 52/F [place] [facility] [place] [place] Status: Signed Intake Intake Visit Reasons: DISCUSS SURGERY Is patient in pain?: Yes Pain scale (1-10): 5 Allergies enoxaparin sodium [From Lovenox] Allergy (Verified 08/31/17 14:43) Rash erythromycin lactobionate [From Erythrocin] Allergy (Verified 08/31/17 14:43) Rash Latex, Natural Rubber Allergy (Verified 08/31/17 14:43) Rash rofecoxib [From Vioxx] Allergy (Verified 08/31/17 14:43) Swelling valdecoxib [From Bextra] Allergy (Verified 08/31/17 14:43) Rash amoxicillin trihydrate [From Augmentin] Adverse Reaction (Verified 08/31/17 14:43) Other potassium clavulanate [From Augmentin] Adverse Reaction (Verified 08/31/17 14:43) Other Medications Lisinopril [Zestril] 10 mg PO DAILY 08/07/13 [History Confirmed 07/30/17] Warfarin [Coumadin] 7.5 mg PO SUMOWETHFRSA 08/07/13 [History Confirmed 07/30/17] Cyclobenzaprine [Flexeril] 10 mg PO TID PRN PRN 03/04/14 [History Confirmed 07/30/17] Acetaminophen with Codeine [Tylenol with Codeine #4 Tablet] 1 ea PO Q4H PRN PRN 02/02/16 [History Confirmed 07/30/17] Atenolol [Tenormin (beta yusuf)] 50 mg PO DAILY 02/02/16 [History Confirmed 07/30/17] Gabapentin [Neurontin] 100 mg PO TIDCM 02/02/16 [History Confirmed 07/30/17] Furosemide [Lasix] 20 mg PO DAILY PRN PRN 02/05/16 [History Confirmed 07/30/17] Amlodipine [Norvasc] 2.5 mg PO DAILY 07/25/16 [History Confirmed 07/30/17] Atenolol [Tenormin (beta yusuf)] 25 mg PO QHS 07/30/17 [History Confirmed 07/30/17] Fluconazole [Diflucan] 400 mg PO DAILY #5 days 07/30/17 [Rx] Nystatin Powder [Mycostatin Powder] 1 applic TOPICAL TID #1 bottle 07/30/17 [Rx] Warfarin Sodium [Warfarin Sodium] 10 mg PO TU 07/30/17 [History Confirmed 07/30/17] PFSH Medical History s/p elbow (Inactive) Surgical History H/O: hysterectomy (Inactive) S/P arthroscopy of knee (Inactive) S/P hernia repair (Inactive) S/P knee replacement (Inactive) Family History Sister Heart disease Brother Heart disease Father Heart disease Mother Breast cancer Social History Smoking Status: Never smoker HPI DISCUSS SURGERY: Details: BECKY MARTINEZ is a 52 year old F here today for continued right cmc pain. She states her injection from November was helpful for about 5wks and her pain began. She is having trouble gripping things without sharp pain, all rom is uncomfortable and she would like to proceed with the arthroplasty discussed at the last appointment. Denies numbness, tingling or other associated symptoms. She takes Tylenol with codeine for her pain, prescribed by her PCP. ROS Musc Reports joint pain, Reports muscle weakness, Reports stiffness, Reports as per HPI Ortho Exam Right Wrist/Hand Skin/Wound: No Swelling, No Ecchymosis Right Wrist: Yes ROM-Extension 0-60, ROM-Flexion 0-80, ROM- Pronation 0-80 and ROM-Supination 0-90; no Snuffbox tenderness Motor: EPL: 5, FDP-2: 5, APB: 5 Sensation: Radial: I, Ulnar: I, Median: I WRIST: Patient has FROM of the wrist as well as the the thumb. She has pains in the CMC joint on palpation and with all movements of the thumb. She has pains with CMC compression as well as grinding of the joint. there is no swelling or other abnormalities on inspection. Left Wrist/Hand Skin/Wound: No Swelling, No Ecchymosis Assessment AND Plan Problems 1. Arthritis of carpometacarpal (CMC) joint of right thumb M18.11 Plan Patient has had multiple injections of the CMC joint with each one lasting shorter and shorter amt of time. She discussed surgical fixation with CMC arthroplasty at her last visit and would like to proceed at this time with that procedure. We discussed risks and benefits of surgery which she understands. Consent was signed. She is currently on coumadin and thus will need to have ordering provider stop her medications pre-operatively accordingly. She is to notify with any other questions or problems in the mean time. Coding Level of Care Code Off vis,est,level 2 Diagnoses Arthritis of carpometacarpal (CMC) joint of right thumb M18.11 01/19/18 1303 <Electronically signed by Ha GONZALEZ> Date Ha GONZALEZ Cosigner Signature: Date (if applicable) CC: PROGRESS Observed: 01/19/2018 Status: COMPLETED Source: [place] 10:13 AM [facility] MAIN [employer] REPOSITORY O ID: [id number] Author: Priscila Blanton RN Service: (none) Author Type: (none) Type: Progress Notes Filed: 01/19/2018 10:14 AM Note Text: patient had inr completed at [facility] patients inr is 2.1 (patients inr range is 2.0-3.0) patient is currently taking 5mg Tues,Thurs,Sat and 7.5mg all other days patients last dose change was on 11/16/17 due to a high level of 3.7 (dose at that time was 5mg Wed and 7.5mg all other days) patient has had no changes in medication and no missed doses and no change in diet Advised patient to continue on the same dose(s) and that they would only be contacted regarding dosage and follow up instructions after review with provider, if a change is needed. Written instructions given and patient verbalized understanding. Presently scheduled in 3 weeks (02/09/18) for follow up INR. PROGRESS Observed: 12/15/2017 Status: COMPLETED Source: [place] 12:47 PM [facility] REPOSITORY O ID: [id number] Author: Priscila Blanton RN Service: (none) Author Type: (none) Type: Progress Notes Filed: 12/15/2017 12:48 PM Note Text: patient had inr completed at [facility] patients inr is 2.0 (patients inr range is 2.0-3.0) patient is currently taking 5mg Tues,Thurs,Sat and 7.5mg all other days patients last dose change was on 11/16/17 due to a high level of 3.7 (dose at that time was 5mg Wed and 7.5mg all other days) patient has had no changes in medication and no missed doses and no change in diet Advised patient to continue on the same dose(s) and that they would only be contacted regarding dosage and follow up instructions after review with provider, if a change is needed. Written instructions given and patient verbalized understanding. Presently scheduled in 5 weeks (01/19/18 - due to the is closed at the 4 week milka) for follow up INR. ORTHOPEDIC VISIT Observed: 12/07/2017 Status: F Source: [place] 1:01 PM [facility] REPOSITORY [facility] Orthopa[facility]ics AND Sports Medicine [address] [place] [id number] OFFICE VISIT Date of Service: 12/07/17 MR#: [id number] Acct: [id number] Name: BECKY MARTINEZ Rep #: [id number] : 1965 Provider: Lisette Banks DO Age/Sex: 52/F [place] [facility] [place]: Signed Intake Intake Visit Reasons: BILAT THUMB PAIN Is patient in pain?: Yes Pain scale (1-10): 9 Allergies enoxaparin sodium [From Lovenox] Allergy (Verified 08/31/17 14:43) Rash erythromycin lactobionate [From Erythrocin] Allergy (Verified 08/31/17 14:43) Rash Latex, Natural Rubber Allergy (Verified 08/31/17 14:43) Rash rofecoxib [From Vioxx] Allergy (Verified 08/31/17 14:43) Swelling valdecoxib [From Bextra] Allergy (Verified 08/31/17 14:43) Rash amoxicillin trihydrate [From Augmentin] Adverse Reaction (Verified 08/31/17 14:43) Other potassium clavulanate [From Augmentin] Adverse Reaction (Verified 08/31/17 14:43) Other Medications Lisinopril [Zestril] 10 mg PO DAILY 08/07/13 [History Confirmed 07/30/17] Warfarin [Coumadin] 7.5 mg PO SUMOWETHFRSA 08/07/13 [History Confirmed 07/30/17] Cyclobenzaprine [Flexeril] 10 mg PO TID PRN PRN 03/04/14 [History Confirmed 07/30/17] Acetaminophen with Codeine [Tylenol with Codeine #4 Tablet] 1 ea PO Q4H PRN PRN 02/02/16 [History Confirmed 07/30/17] Atenolol [Tenormin (beta yusuf)] 50 mg PO DAILY 02/02/16 [History Confirmed 07/30/17] Gabapentin [Neurontin] 100 mg PO TIDCM 02/02/16 [History Confirmed 07/30/17] Furosemide [Lasix] 20 mg PO DAILY PRN PRN 02/05/16 [History Confirmed 07/30/17] Amlodipine [Norvasc] 2.5 mg PO DAILY 07/25/16 [History Confirmed 07/30/17] Atenolol [Tenormin (beta yusuf)] 25 mg PO QHS 07/30/17 [History Confirmed 07/30/17] Fluconazole [Diflucan] 400 mg PO DAILY #5 days 07/30/17 [Rx] Nystatin Powder [Mycostatin Powder] 1 applic TOPICAL TID #1 bottle 07/30/17 [Rx] Warfarin Sodium [Warfarin Sodium] 10 mg PO TU 07/30/17 [History Confirmed 07/30/17] PFSH Medical History s/p elbow (Inactive) Surgical History H/O: hysterectomy (Inactive) S/P arthroscopy of knee (Inactive) S/P hernia repair (Inactive) S/P knee replacement (Inactive) Family History Sister Heart disease Brother Heart disease Father Heart disease Mother Breast cancer Social History Smoking Status: Never smoker HPI BILAT THUMB PAIN: Details: BECKY MARTINEZ is a 52 year old F here today for bilateral thumb pain with grinding. She has had injections twice, the last ones in August and they lasted until the end of September. She complains of increased pain and weakness. Denies numbness, tingling or other associated symptoms. Ortho Exam Right Wrist/Hand Skin/Wound: Yes CDI Contralateral Normal: No A1 roel trigger: No Motor: EPL: 5, FDP-2: 5, 1st Dorsal Interosseous: 5, APB: 5 Sensation: Radial: I, Ulnar: I, Median: I WRIST: cmc grind bilaterally Left Wrist/Hand Skin/Wound: Yes CDI Contralateral Normal: No A1 roel trigger: No Motor: EPL: 5, FDP-2: 5, 1st Dorsal Interosseous: 5, APB: 5 Sensation: Radial: I, Ulnar: I, Median: I Office Procedures Ortho Injections Injections Yes CMC Bilateral Details: Obtained consent for injection. Under sterile conditions, injected the patients right and left CMC with a 1.5cc cocktail of 1cc bupivacaine and 0.5cc kenalog. The patient tolerated the injection well without any noted complication. Patient should call our office if redness develops, pain worsens or if they have any concerns. Office Meds Kenalog Performing Provider: Lisette Banks DO Administered by: Lisette Banks DO on 12/07/17 10:06 Dose Route Admin Location Lot Number Expiration DateNDC Checkroom Chief 10 mg Intra-Articularbilat cmc [id number] 08/29/18 [id number] [email or web address] Assessment AND Plan 1. Primary osteoarthritis of both first carpometacarpal joints M18.0 Plan We will injection once more, if they do not help in two weeks return to sign surgery consent for right CMC arthroplasty. Will need to review her anticoagulant use prior to surgery and post op. Follow up as needed or sooner if pain, swelling, numbness or associated symptoms, or concerns develop. All questions answered. Patient in agreement of plan. Orders Orders: Medications Discontinued: Kenalog (triamcinolone acetonide) Discontinued Reason: Of10 mg IM ONCE NS Kike Laxmi brigid Medication has been Documented as given Coding Level of Care Code No Charge Diagnoses Primary osteoarthritis of both first carpometacarpal joints M18.0 Osteoarthritis type: primary Additional Codes rn clinical review.[facility] ([id number]) 12/07/17 1301 <Electronically signed by Lisette Banks DO> Date Lisette Shea Signature: Date (if applicable) CC: [place] Collected: 11/29/2017 Status: F Source: [place] 10:53 AM [facility] [employer] REPOSITORY TYPE CODE TESTS RESULT OUT OF RANGE REFERENCE UNITS LAB PSEC 9.7-13.0 sec High PT Sec 23.5 LAB INR 0.9-1.3 High PT INR 2.4 Result Comment: Vitamin K Antagonist (VKA) Therapeutic Range: INR 2 to 3 (Target INR of 2.5) Note: For patients treated with VKA drugs, such as warfarin, the [place] [employer] 2012 Guideline recommends a therapeutic INR range of 2 to 3 (target INR of 2.5). This recommendation includes high-risk patients with antiphospholipid syndrome with previous arterial or venous thromboembolism, current-generation mechanical or bioprosthetic aortic heart valve replacement. Note: Patients with mechanical aortic valve replacement and additional risk factors for thromboembolic events (atrial fibrillation, previous thromboembolism, LV dysfunction, hypercoagulable conditions) or an older generation mechanical AVR (i.e., ball in-Cage) or any mechanical MVR should have a INR therapeutic range of 2.5 to 3.5 (target INR of 3). Gukaylatt GH, et al. Chest 2012, 141:7S-47S Dhara RA, et al. [facility] 2017, 70: 252-289 Performed By: #### PT #### [facility] [address], [place] [address] CBC AND DIFFERENTIAL Collected: 11/17/2017 Status: F Source: [place] 12:53 PM [facility] REPOSITORY TYPE CODE TESTS RESULT OUT OF REFERENCE UNITS RANGE LAB WBC 3.70-11.00 k/uL WBC 8.27 LAB RBC 3.90-5.20 m/uL RBC 4.98 LAB HGB 11.5-15.5 g/dL Hemoglobin 13.9 LAB HCT 36.0-46.0 % Hematocrit 44.2 LAB MCV 80.0-100.0 fL MCV 88.8 LAB MCH 26.0-34.0 pG MCH 27.9 LAB MCHC 30.5-36.0 g/dL MCHC 31.4 LAB RDWCV 11.5-15.0 % RDW-CV 13.5 LAB PLTCT 150-400 k/uL Platelet Count 293 LAB MPV 9.0-12.7 fL MPV 10.5 LAB ANEUT % Neut% 60.0 LAB AANEUT 1.45-7.50 k/uL Abs Neut 4.94 LAB ALYMP % Lymph% 32.3 LAB AALYMP 1.00-4.00 k/uL Abs Lymph 2.67 LAB AMONO % [place]% 5.9 LAB AAMONO <0.87 k/uL Abs [place] 0.49 LAB AEOS % Eosin% 1.1 LAB AAEOS <0.46 k/uL Abs Eosin 0.09 LAB ABASO % Baso% 0.7 LAB AABASO <0.11 k/uL Abs Baso 0.06 LAB AUNRBC 0 /100 WBC NRBCs 0.0 LAB ABNRBC <0.01 k/uL Absolute nRBC <0.01 LAB DTYP DTYPE Auto Diff Performed By: #### CBCDIF, CMP, HBA1C #### [facility] [address], [place] [address] COMP METABOLIC PANEL Collected: 11/17/2017 Status: F Source: [place] 12:53 PM [facility] REPOSITORY TYPE CODE TESTS RESULT OUT OF REFERENCE UNITS RANGE LAB TP 6.3-8.0 g/dL Low Protein, Total 6.0 LAB ALB 3.9-4.9 g/dL Albumin 4.0 LAB CA 8.5-10.2 mg/dL Calcium, Total 9.2 LAB TBIL 0.2-1.3 mg/dL Bilirubin, Total 0.4 LAB ALKP 32-117 U/L Alkaline Phosphatase 56 LAB AST 13-35 U/L AST 19 LAB GLU 74-99 mg/dL Glucose High 143 Result Comment: The [place] Diabetes Association (ADA) provides guidance for cutoff values for fasting glucose and random glucose. The ADA defines fasting as no caloric intake for at least 8 hours. Fas ting plasma glucose results between 100 to 125 mg/dL indicate increased risk for diabetes (prediabetes). Fasting plasma glucose results greater than or equal to 126 mg/dL meet the criteria for diagnosis of diabetes. In the absence of unequivocal hyperglycemia, results should be confirmed by repeat testing. In a patient with classic symptoms of hyperglycemia or hyperglycemic crisis, random plasma glucose results greater than or equal to 200 mg/dL meet the criteria for diagnosis of diabetes. Reference: Standards of Medical Care in Diabetes 2016, [place] [employer] Association. Diabetes Care. 2016.39(Suppl 1). LAB BUN 7-21 mg/dL BUN 13 LAB CRET 0.58-0.96 mg/dL Creatinine 0.71 LAB NA 136-144 mmol/L Sodium 141 LAB K 3.7-5.1 mmol/L Potassium 4.1 LAB CL 97-105 mmol/L Chloride 102 LAB CO2 22-30 mmol/L CO2 26 LAB AGAP 9-18 mmol/L Anion Gap 13 LAB ALT 7-38 U/L ALT 22 LAB GFRAA eGFR- Amer. >60 LAB GFRNAA . eGFR-All Other Races >60 Result Comment: eGFR (Estimated GFR) Units of measure: mL/min/1.73 meters squared eGFR is derived from the reexpressed MDRD Study equation using the following parameters: serum creatinine, age, gender and race. The creatinine assay has been calibrated to be traceable to IDMS. An eGFR <60 mL/min/1.73m2 for >3 months is consistent with chronic kidney disease. Refer to KDOQI guidelines for clinical interpretation. In patients with unstable renal function, e.g. those with acute kidney injury, the eGFR may not accurately reflect actual GFR. Performed By: #### CBCDIF, CMP, HBA1C #### [facility] [address], [place] [address] HEMOGLOBIN A1C Collected: 11/17/2017 Status: F Source: [place] 12:53 PM [facility] REPOSITORY TYPE CODE TESTS RESULT OUT OF REFERENCE UNITS RANGE LAB HGBA1C 4.3-5.6 % High Hemoglobin A1c 6.1 LAB HBA0 mg/dL Est. Average Glucose 128 Result Comment: eAG: (Estimated average glucose) is a calculated value from HgbA1c and is airline security representative of the average blood glucose level in the last 2-3 month period. Performed By: #### CBCDIF, CMP, HBA1C #### [facility] [address], [place] [id number] TSH Collected: 11/17/2017 Status: F Source: [place] 12:52 PM [facility] REPOSITORY TYPE CODE TESTS RESULT OUT OF RANGE REFERENCE UNITS LAB TSH 0.400-5.500 uU/mL TSH 2.680 Performed By: #### TSH #### [facility] [address] [place] [address] PROGRESS Observed: 11/16/2017 Status: COMPLETED Source: [place] 3:21 PM [facility] REPOSITORY HNO ID: [id number] Author: Pinky Dawkins Ma Service: (none) Author Type: (none) Type: Progress Notes Filed: 11/16/2017 3:23 PM Note Text: Tracker and med list updated. Detailed message left on pt machine with instructions. Advised pt to call call back and set up recheck in 2 weeks. Pinky Dawkins Ma PROGRESS Observed: 11/16/2017 Status: COMPLETED Source: [place] 3:11 PM [facility] REPOSITORY HNO ID: [id number] Author: Milka Colindres Service: (none) Author Type: Physician Type: Progress Notes Filed: 11/16/2017 3:23 PM Note Text: Go to 5 mg on Tues, Thurs, Sat; 7.5 mg all other days Recheck in 2 weeks Milka Colindres MD PROGRESS Observed: 11/16/2017 Status: COMPLETED Source: [place] 2:20 PM [facility] [employer] REPOSITORY HNO ID: [id number] Author: Priscila Blanton RN Service: (none) Author Type: (none) Type: Progress Notes Filed: 11/16/2017 2:23 PM Note Text: patient had inr completed at [facility] patients inr is 3.7 (patients inr range is 2.0-3.0) patient is currently taking 5mg Wed and 7.5mg all other days patients last dose change was on 10/23/17 due to a high level of 4.7 (dose at that time was 7.5mg daily) patient has had a change in medication and pt just finished antibiotic, and no missed doses and no change in diet FYI - if patient needs to have a 1 week follow up inr patient will need to be instructed to go to the lab for a lab draw due to the coumadin clinic will be closed next week. a pended order has been placed to be filed if needed Advised patient that they would be contacted regarding medication dose and when to follow up after information is reviewed by provider. After provider review please contact the patient with information and schedule follow up appointment with coumadin clinic. PROGRESS Observed: 11/02/2017 Status: COMPLETED Source: [place] 4:51 PM [facility] REPOSITORY HNO ID: [id number] Author: Milka Colindres Service: (none) Author Type: Physician Type: Progress Notes Filed: 11/02/2017 4:53 PM Note Text: I agree with the advice given; stay same and recheck in 2 weeks Milka Colindres MD PROGRESS Observed: 11/02/2017 Status: COMPLETED Source: [place] 3:58 PM [facility] [employer] REPOSITORY HNO ID: [id number] Author: Priscila Blanton RN Service: (none) Author Type: (none) Type: Progress Notes Filed: 11/02/2017 3:59 PM Note Text: patient had inr completed at [facility] patients inr is 1.9 (patients inr range is 2.0-3.0) patient is currently taking 5mg Wed and 7.5mg all other days patients last dose change was on 10/23/17 due to a high level of 4.7 (dose at that time was 7.5mg daily patient has had a change in medication as pt was place on keflex, and no missed doses and no change in diet Advised patient to continue on the same dose(s) and that they would only be contacted regarding dosage and follow up instructions after review with provider, if a change is needed. Written instructions given and patient verbalized understanding. Presently scheduled in 2 weeks (11/16/17) for follow up INR. PROGRESS Observed: 11/01/2017 Status: COMPLETED Source: [place] 11:01 AM [facility] REPOSITORY [facility] ID: [id number] Author: Yola Martines) [place] Service: (none) Author Type: Physician Collator Hand Type: Progress Notes Filed: 11/01/2017 11:08 AM Note Text: Subjective HPI Pt presents with two separate rashes. She noticed on her abdomen the past couple days that there was some redness and pain. She has had cellulitis in the past and was actually admitted for it 10 years ago. She denies fevers or chills. She's had some nausea associated. She also has an itchy rash that is starting on her right lower leg. She has had this rash in the same spot before. No new medications or soaps. She hasn't been in the dawn or gardening. Review of Systems Skin: Positive for itching and rash. All other systems reviewed and are negative. 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 - Diffuse cystic mastopathy - Diverticulosis of colon (without mention of hemorrhage) Diverticulosis - DVT of leg (deep venous thrombosis) (HCC) Right leg - Hypertension - Irritable bowel syndrome - Localized osteoarthrosis not specified whether primary or secondary, other specified sites RT KNEE - Migraine, unspecified, with intractable migraine, so stated, without mention of status migrainosus Migraine - Obesity, unspecified - Osteoarthritis of right knee - Other and unspecified disc disorder of unspecified region Intervertebral disc disorders - Other disorders of bladder - Personal history of colonic polyps 01/21/2015 - PMH - PAST MEDICAL HISTORY OF 1990 Pulmonary Embolism Current Outpatient Prescriptions: cephALEXin (KEFLEX) 500 mg capsule Take 1 capsule by mouth four times daily for 10 days. Disp: 40 capsule Rfl: 0 triamcinolone acetonide (KENALOG) 0.1 % cream Apply 1 application to affected area twice daily. Apply to affected area. Location: right leg Disp: 30 g Rfl: 0 atenolol (TENORMIN) 50 mg tablet Take 1 tablet by mouth once daily. Take 50 mg in the AM, 25 mg in the PM Disp: Rfl: acetaminophen-codeine (TYLENOL-COD #4) 300-60 mg per tablet Take 1 tablet by mouth twice daily as needed for Pain for up to 15 days. Disp: 30 tablet Rfl: 2 lisinopril (ZESTRIL, PRINIVIL) 20 mg tablet Take 0.5 tablets by mouth once daily. Disp: 90 tablet Rfl: 3 tiZANidine (ZANAFLEX) 4 mg tablet Take 1 tablet by mouth every 6 hours as needed. Disp: 30 tablet Rfl: 1 gabapentin (NEURONTIN) 300 mg capsule Take 1 capsule by mouth daily at bedtime for 90 days. Disp: 30 capsule Rfl: 2 predniSONE (DELTASONE) 10 mg tablet Take 2 pills daily for 4 days, then take 1 pill daily for 4 days, then take 1/2 pill daily for 4 days Disp: 15 tablet Rfl: 0 amLODIPine (NORVASC) 10 mg tablet Take 1 tablet by mouth once daily. Disp: 90 tablet Rfl: 3 furosemide (LASIX) 20 mg tablet Take 1 tablet by mouth once daily. NEEDED Disp: 30 tablet Rfl: 5 warfarin (COUMADIN) 5 mg tablet Take 7.5 mg daily or as directed. Disp: 180 tablet Rfl: 3 nitroglycerin sublingual (NITROQUICK) 0.4 mg SL tablet Dissolve 1 tablet under the tongue as needed. FOR CHEST PAIN. IF NO RELIEF CALL 911 Disp: 25 tablet Rfl: 3 No current facility-administered medications for this visit. PAST SURGICAL HISTORY Procedure Laterality Date - APPENDECTOMY - COLONOSCOP W/ OR W/O [facility] SPEC 01/21/2015 Repeat 2024 - I/D PERIANAL ABSCESS, SUPERFICIAL 5-2-12 - KNEE SCOPE,DIAGNOSTIC 2007 Right knee - LIGATE FALLOPIAN TUBE - ME ANESTH,DX ARTHROSCOPIC PROC KNEE JOINT 1994 LT KNEE - ME ANESTH,DX ARTHROSCOPIC PROC KNEE JOINT 1994 RT KNEE - REDUCTION OF LARGE BREAST Breast reduction - REMOVAL GALLBLADDER Cholecystectomy - REPAIR ANAL FISTULA W/NICHELLE 12/09/11 - REPAIR UMBILICAL OUMOU,5+Y/O,REDUC Hernia repair, umbilical >5yr, x2 with mesh - TOTAL ABDOM HYSTERECTOMY Hysterectomy, ARIELLE - TOTAL KNEE REPLACEMENT Right 06/27/2011 - TREAT ECTOPIC PREG,NON REMVAL Ectopic FAMILY HISTORY Problem Relation Age of Onset - Heart Father [place] age 50, sudden - Breast Cancer Mother - Coronary Artery Disease Brother Quadruple by-pass age 50 - Coronary Artery Disease Sister [place] late 30's - Stroke Sister - Other [OTHER] Brother pulmonary embolism - Other [OTHER] Sister pulmonary embolism - Heart Sister heart attack age 50, stent - Diabetes Sister older sister; obese Social History Substance Use Topics - Smoking status: Former Smoker Packs/day: 0.50 Years: 2.00 Types: Cigarettes Quit date: 05/01/1979 - Smokeless tobacco: Never Used - Alcohol use Yes Comment: socially BP 126/82 Pulse 78 Temp 36.6 ?C (97.8 ?F) (Left Tympanic) Resp 18 Wt (!) 176.9 kg (390 lb) BMI 61.08 kg/m? Objective Physical Exam Constitutional: She is oriented to person, place, and time and well-developed, well-nourished, and in no distress. HENT: Head: Normocephalic and atraumatic. Cardiovascular: Normal rate, regular rhythm and normal heart sounds. Abdominal: Morbidly obese abdomen. Large pannus present. On underside of right side of pannus patient has redness and warmth. No streaking. No breaks in the skin visualized. No sign of abscess. Neurological: She is alert and oriented to person, place, and time. Skin: Skin is warm. On the right lower leg patient has a vesicular red raised rash in a half circular shape and fine papular skin toned rash on distal lower leg. Mildly warm to touch. No petechiae or purpura. Nursing note and vitals reviewed. ASSESSMENT/PLAN: 1. Cellulitis of skin - ICD9: 682.9, ICD10: L03.90 (primary diagnosis) - Pt has cellulitis of the pannus developing. I will place her on Keflex. Discussed if the redness gets worse, she develops a fever, or any streaking she needs to go to the ED. Pt agreeable. 2. Dermatitis - ICD9: 692.9, ICD10: L30.9 - Topical steriod tx with triamcinolone cream to lower leg. - discussed skin care of rash - follow up if symptoms persist or worsen. VIRGILIO Sanchez Observed: 11/01/2017 Status: COMPLETED Source: [place] 10:30 AM [facility] REPOSITORY Office Visit (UCWSTR) BECKY MARTINEZ ([id number]) 1965 F Date Time Provider Department 11/01/17 10:30 AM YOLA HARVEY) [facility] During your visit today, we recorded the following information about you: Temperature Pulse Respiration Blood pressure 97.8 degrees 78/minute 18/minute 126/82 Weight 176.9 kg Yola Harvey PA-C 11/01/2017 11:08 AM Signed Subjective HPI Pt presents with two separate rashes. She noticed on her abdomen the past couple days that there was some redness and pain. She has had cellulitis in the past and was actually admitted for it 10 years ago. She denies fevers or chills. She's had some nausea associated. She also has an itchy rash that is starting on her right lower leg. She has had this rash in the same spot before. No new medications or soaps. She hasn't been in the dawn or gardening. Review of Systems Skin: Positive for itching and rash. All other systems reviewed and are negative. 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 - Diffuse cystic mastopathy - Diverticulosis of colon (without mention of hemorrhage) Diverticulosis - DVT of leg (deep venous thrombosis) (HCC) Right leg - Hypertension - Irritable bowel syndrome - Localized osteoarthrosis not specified whether primary or secondary, other specified sites RT KNEE - Migraine, unspecified, with intractable migraine, so stated, without mention of status migrainosus Migraine - Obesity, unspecified - Osteoarthritis of right knee - Other and unspecified disc disorder of unspecified region Intervertebral disc disorders - Other disorders of bladder - Personal history of colonic polyps 01/21/2015 - PMH - PAST MEDICAL HISTORY OF 1990 Pulmonary Embolism Current Outpatient Prescriptions: cephALEXin (KEFLEX) 500 mg capsule Take 1 capsule by mouth four times daily for 10 days. Disp: 40 capsule Rfl: 0 triamcinolone acetonide (KENALOG) 0.1 % cream Apply 1 application to affected area twice daily. Apply to affected area. Location: right leg Disp: 30 g Rfl: 0 atenolol (TENORMIN) 50 mg tablet Take 1 tablet by mouth once daily. Take 50 mg in the AM, 25 mg in the PM Disp: Rfl: acetaminophen-codeine (TYLENOL-COD #4) 300-60 mg per tablet Take 1 tablet by mouth twice daily as needed for Pain for up to 15 days. Disp: 30 tablet Rfl: 2 lisinopril (ZESTRIL, PRINIVIL) 20 mg tablet Take 0.5 tablets by mouth once daily. Disp: 90 tablet Rfl: 3 tiZANidine (ZANAFLEX) 4 mg tablet Take 1 tablet by mouth every 6 hours as needed. Disp: 30 tablet Rfl: 1 gabapentin (NEURONTIN) 300 mg capsule Take 1 capsule by mouth daily at bedtime for 90 days. Disp: 30 capsule Rfl: 2 predniSONE (DELTASONE) 10 mg tablet Take 2 pills daily for 4 days, then take 1 pill daily for 4 days, then take 1/2 pill daily for 4 days Disp: 15 tablet Rfl: 0 amLODIPine (NORVASC) 10 mg tablet Take 1 tablet by mouth once daily. Disp: 90 tablet Rfl: 3 furosemide (LASIX) 20 mg tablet Take 1 tablet by mouth once daily. NEEDED Disp: 30 tablet Rfl: 5 warfarin (COUMADIN) 5 mg tablet Take 7.5 mg daily or as directed. Disp: 180 tablet Rfl: 3 nitroglycerin sublingual (NITROQUICK) 0.4 mg SL tablet Dissolve 1 tablet under the tongue as needed. FOR CHEST PAIN. IF NO RELIEF CALL 911 Disp: 25 tablet Rfl: 3 No current facility-administered medications for this visit. PAST SURGICAL HISTORY Procedure Laterality Date - APPENDECTOMY - COLONOSCOP W/ OR W/O [facility] SPEC 01/21/2015 Repeat 2024 - I/D PERIANAL ABSCESS, SUPERFICIAL 5-2-12 - KNEE SCOPE,DIAGNOSTIC 2007 Right knee - LIGATE FALLOPIAN TUBE - ME ANESTH,DX ARTHROSCOPIC PROC KNEE JOINT 1994 LT KNEE - ME ANESTH,DX ARTHROSCOPIC PROC KNEE JOINT 1994 RT KNEE - REDUCTION OF LARGE BREAST Breast reduction - REMOVAL GALLBLADDER Cholecystectomy - REPAIR ANAL FISTULA W/NICHELLE 12/09/11 - REPAIR UMBILICAL OUMOU,5+Y/O,REDUC Hernia repair, umbilical >5yr, x2 with mesh - TOTAL ABDOM HYSTERECTOMY Hysterectomy, ARIELLE - TOTAL KNEE REPLACEMENT Right 06/27/2011 - TREAT ECTOPIC PREG,NON REMVAL Ectopic FAMILY HISTORY Problem Relation Age of Onset - Heart Father [place] age 50, sudden - Breast Cancer Mother - Coronary Artery Disease Brother Quadruple by-pass age 50 - Coronary Artery Disease Sister [place] late 30's - Stroke Sister - Other [OTHER] Brother pulmonary embolism - Other [OTHER] Sister pulmonary embolism - Heart Sister heart attack age 50, stent - Diabetes Sister older sister; obese Social History Substance Use Topics - Smoking status: Former Smoker Packs/day: 0.50 Years: 2.00 Types: Cigarettes Quit date: 05/01/1979 - Smokeless tobacco: Never Used - Alcohol use Yes Comment: socially BP 126/82 Pulse 78 Temp 36.6 ?C (97.8 ?F) (Left Tympanic) Resp 18 Wt (!) 176.9 kg (390 lb) BMI 61.08 kg/m? Objective Physical Exam Constitutional: She is oriented to person, place, and time and well-developed, well-nourished, and in no distress. HENT: Head: Normocephalic and atraumatic. Cardiovascular: Normal rate, regular rhythm and normal heart sounds. Abdominal: Morbidly obese abdomen. Large pannus present. On underside of right side of pannus patient has redness and warmth. No streaking. No breaks in the skin visualized. No sign of abscess. Neurological: She is alert and oriented to person, place, and time. Skin: Skin is warm. On the right lower leg patient has a vesicular red raised rash in a half circular shape and fine papular skin toned rash on distal lower leg. Mildly warm to touch. No petechiae or purpura. Nursing note and vitals reviewed. ASSESSMENT/PLAN: 1. Cellulitis of skin - ICD9: 682.9, ICD10: L03.90 (primary diagnosis) - Pt has cellulitis of the pannus developing. I will place her on Keflex. Discussed if the redness gets worse, she develops a fever, or any streaking she needs to go to the ED. Pt agreeable. 2. Dermatitis - ICD9: 692.9, ICD10: L30.9 - Topical steriod tx with triamcinolone cream to lower leg. - discussed skin care of rash - follow up if symptoms persist or worsen. Yola Harvey PA-C Referring Provider: SELF [[id number]] Allergies As of Date: 11/01/2017 Noted Allergy Reaction AUGMENTIN (AMOXICILLIN-POT CLAVUL*12/31/2004 14 - Other: See Comments Comments: Adverse effect, developed yeast infection BEXTRA (VALDECOXIB) 12/31/2004 7 - Swelling Comments: Ankle swelling CELEBREX (CELECOXIB) 12/31/2004 7 - Swelling Comments: ankle swelling ERYTHROMYCIN 12/31/2004 2 - Rash LATEX 12/31/2004 LOVENOX (ENOXAPARIN SODIUM) 06/23/2011 2 - Rash VIOXX (ROFECOXIB) 12/31/2004 7 - Swelling Comments: ankle swelling VOLTAREN (DICLOFENAC SODIUM) 12/31/2004 7 - Swelling Comments: ankle swelling Date Reviewed: 11/01/2017 Reviewed by: Kim Krishnan Ma - Fully Assessed Reason for Visit: Rash [1087] Primary Visit Diagnosis:Cellulitis of skin [L03.90] Other Visit Diagnosis:Dermatitis [L30.9] Order(s):cephALEXin (KEFLEX) 500 mg capsuleTake 1 capsule by mouth four times daily for 10 days.Disp: 40 capsuleRfl: 0 triamcinolone acetonide (KENALOG) 0.1 % creamApply 1 application to affected area twice daily. Apply to affected area. Location: right legDisp: 30 gRfl: 0 Prescriptions as of 11/01/2017 Sig: CEPHALEXIN 500 MG CAPSULE Take 1 capsule by mouth four * TRIAMCINOLONE ACETONIDE 0.1 %* Apply 1 application to affect* ATENOLOL 50 MG TABLET Take 1 tablet by mouth once d* ACETAMINOPHEN 300 MG-CODEINE * Take 1 tablet by mouth twice * LISINOPRIL 20 MG TABLET Take 0.5 tablets by mouth onc* TIZANIDINE 4 MG TABLET Take 1 tablet by mouth every * GABAPENTIN 300 MG CAPSULE Take 1 capsule by mouth daily* PREDNISONE 10 MG TABLET Take 2 pills daily for 4 days* AMLODIPINE 10 MG TABLET Take 1 tablet by mouth once d* FUROSEMIDE 20 MG TABLET Take 1 tablet by mouth once d* WARFARIN 5 MG TABLET Take 7.5 mg daily or as direc* NITROGLYCERIN 0.4 MG SUBLINGU* Dissolve 1 tablet under the t* Problem List As Of Date 11/01/2017 Noted Resolved Allergic Rhinitis, Cause Unspecified [J30.9] INVALID FOR* Diverticulosis of Colon (without Mention of Hem* More... Irritable Bowel Syndrome [K58.9] Migraine NOS/Intractable [G43.919] More... 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 Other and Unspecified Disc Disorder of Unspecif* More... 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 Restless Legs Syndrome (RLS) [G25.81] INVALID FOR* Obstructive Sleep Apnea (Adult) (Pediatric) [G4*INVALID FOR* Essential Hypertension, Benign [I10] INVALID FOR* Other Abnormal Glucose [R73.09] INVALID FOR* Dysmetabolic Syndrome X [E88.81] INVALID FOR* Palpitations [R00.2] INVALID FOR*03/09/2012 More... Routine Gynecological Examination [Z01.419] INVALID FOR* Class: Chronic More... Obesity, Morbid [E66.01] INVALID FOR* Abdominal pain, left lower quadrant [R10.32] INVALID FOR*03/09/2012 Diarrhea [R19.7] INVALID FOR* Knee pain [M25.569] INVALID FOR* More... 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 TRIAMCINOLONE ACETONIDE 0.1 % TOPICA* 30 g 0 11/01/2017 Route: TOPICAL Sig: Apply 1 application to affected area twice daily. Apply to affected area. Location: right leg Encounter Status:Closed by YOLA HARVEY PA-C on 11/01/17 PROGRESS Observed: 10/26/2017 Status: COMPLETED Source: [place] 1:36 PM [facility] REPOSITORY HNO ID: [id number] Author: Milka Colindres Service: (none) Author Type: Physician Type: Progress Notes Filed: 10/26/2017 1:46 PM Note Text: I agree with the advice given; stay same and recheck in 1 week Milka Colindres MD PROGRESS Observed: 10/26/2017 Status: COMPLETED Source: [place] 1:20 PM [facility] REPOSITORY HNO ID: [id number] Author: Priscila Blanton RN Service: (none) Author Type: (none) Type: Progress Notes Filed: 10/26/2017 1:23 PM Note Text: patient had inr completed at [facility] patients inr is 1.5 (patients inr range is 2.0-3.0) patient is currently taking 5mg Wed and 7.5mg all other days - but patient has only taken the 5mg dose (see below) patients last dose change was on 10/23/17 due to a high level of 4.7 (dose at that time was 7.5mg daily) patient has had no change in medication except for the couamdin and no uninstructed missed doses and no change in diet FYI - on 10/23 patient was instructed to hold times 2 dose and then restart back on 5mg Wed and 7.5mg all other days and recheck today () so patient has only been back on coumadin for 1 dose Advised patient to continue on the same dose(s) and that they would only be contacted regarding dosage and follow up instructions after review with provider, if a change is needed. Written instructions given and patient verbalized understanding. Presently scheduled in 1 week (11/02/17) for follow up INR. PROGRESS Observed: 10/23/2017 Status: COMPLETED Source: [place] 2:57 PM [facility] REPOSITORY HNO ID: [id number] Author: Helen Stovall LPN Service: (none) Author Type: (none) Type: Progress Notes Filed: 10/23/2017 2:58 PM Note Text: Pt notified. PROGRESS Observed: 10/23/2017 Status: COMPLETED Source: [place] 2:01 PM [facility] REPOSITORY HNO ID: [id number] Author: Ben Cerna Service: (none) Author Type: Physician Type: Progress Notes Filed: 10/23/2017 2:58 PM Note Text: Take 5 mg of Coumadin on Wed Ben Cerna, PROGRESS Observed: 10/23/2017 Status: COMPLETED Source: [place] 1:52 PM [facility] REPOSITORY HNO ID: [id number] Author: Helen Stovall LPN Service: (none) Author Type: (none) Type: Progress Notes Filed: 10/23/2017 1:54 PM Note Text: Pt notified. Coumadin Clinic closed Mon, appt scheduled for , will need instructions for Wed, or have lab draw completed Mon please advise. PROGRESS Observed: 10/23/2017 Status: COMPLETED Source: [place] 11:20 AM [facility] [employer] [facility] REPOSITORY HNO ID: [id number] Author: Casey Hudson Service: (none) Author Type: Physician Type: Progress Notes Filed: 10/23/2017 4:34 PM Note Text: PERTINENT CARDIAC HISTORY Chest pain - abnormal ECG HTN Glucose intolerance PE - 1989 DVT - 2007 IVC filter 2011 Palpitations - no complex arrhythmia NITHYA? - negative sleep study ADHERENCE TO GUIDELINES GISELE-I or ARB for HF with prior LVEF<40 (NQF 0081) - N/A ASA or Plavix for ASHD (NQF 0067) - N/A, on warfarin Beta yusuf for ASHD with prior AK or prior LVEF<40 (NQF 0070) - N/A Beta yusuf for HF with prior LVEF<40 (NQF 0083) - N/A GISELE-I or ARB for ASHD with DM or prior LVEF<40 (NQF 0066) - N/A Statin therapy for ASHD or FHL or DM - N/A BMI documented and plan if >25 (NQF 0421) - lifestyle recommendation form Tobacco use screening and referral (NQF 0028) - lifestyle recommendation form Recommendation for whole food, plant based diet - lifestyle recommendation form CLINICAL IMPRESSION/PLAN: Becky Martinez has stable chest pain pattern. This is unlikely to be related to ischemic heart disease. Her stress tests showed no evidence of ischemia. She has elected to defer angiography. I strongly advised her to increase her physical activity and get her weight under better control. She has been encouraged to wear support stockings for control of her peripheral edema. I will see her in 8 months or as needed. Written and verbal health teaching given to patient, patient verbalizes understanding and agrees with treatment plan. DIAGNOSIS FOR VISIT: Chest pain Palpitations HISTORY OF PRESENT ILLNESS Becky Martinez returns for follow-up of her chest pain syndrome. She reports stable exercise tolerance. She's been having some lower back pain but chest pain has improved. She's had no orthopnea. She denies syncope, palpitations, TIAs, amaurosis and claudication. She continues to gain weight. She has not been exercising. She's had minimal edema. ALLERGIES: ALLERGIES Allergen Reactions - Augmentin [Amoxicil* Other: See Comments Adverse effect, developed yeast infection - Bextra [Valdecoxib] Swelling Ankle swelling - Celebrex [Celecoxib] Swelling ankle swelling - Erythromycin Rash - Latex - Lovenox [Enoxaparin* Rash - Vioxx [Rofecoxib] Swelling ankle swelling - Voltaren [Diclofena* Swelling ankle swelling CURRENT OUTPATIENT MEDICATIONS: acetaminophen-codeine (TYLENOL-COD #4) 300-60 mg per tablet Take 1 tablet by mouth twice daily as needed for Pain for up to 15 days. atenolol (TENORMIN) 50 mg tablet Take 1 tablet by mouth once daily. atenolol (TENORMIN) 25 mg tablet Take 1 tablet by mouth once daily. lisinopril (ZESTRIL, PRINIVIL) 20 mg tablet Take 0.5 tablets by mouth once daily. tiZANidine (ZANAFLEX) 4 mg tablet Take 1 tablet by mouth every 6 hours as needed. gabapentin (NEURONTIN) 300 mg capsule Take 1 capsule by mouth daily at bedtime for 90 days. predniSONE (DELTASONE) 10 mg tablet Take 2 pills daily for 4 days, then take 1 pill daily for 4 days, then take 1/2 pill daily for 4 days amLODIPine (NORVASC) 10 mg tablet Take 1 tablet by mouth once daily. furosemide (LASIX) 20 mg tablet Take 1 tablet by mouth once daily. NEEDED warfarin (COUMADIN) 5 mg tablet Take 7.5 mg daily or as directed. nitroglycerin sublingual (NITROQUICK) 0.4 mg SL tablet Dissolve 1 tablet under the tongue as needed. FOR CHEST PAIN. IF NO RELIEF CALL 911 PHYSICAL EXAMINATION: VITAL SIGNS: BP 139/67 Pulse 61 Wt 388 lb 9.6 oz (176.3kg) Chest: Clear to percussion and auscultation. Trachea is midline. Air entry is equal. Cardiac: Regular rhythm. S1 and S2 are normal. PMI is nondisplaced. There is a soft systolic ejection murmur. Carotids are brisk without bruits. JVP is less than 10 cm. Abdomen: Soft and nontender. Obesity precludes adequate examination. There are no pulsatile masses or bruits. No liver enlargement. Bowel sounds are active. Extremities: 1 plus edema. She is not wearing support stockings. Pulses are intact and symmetrical. Recent labs were reviewed. Renal function is normal. LDL was 79. Electronically Signed: Casey Hudson MD October 23, 2017 11:20 AM CC: Milka Colindres MD CNOV Observed: 10/23/2017 Status: COMPLETED Source: [place] 11:00 AM [facility] REPOSITORY Office Visit (CAWSTR) BECKY MARTINEZ ([id number]) 1965 F Date Time Provider Department 10/23/17 11:00 AM CASEY HUDSONWSTR During your visit today, we recorded the following information about you: Pulse Blood pressure Weight 61/minute 139/67 176.3 kg Casey Hudson MD 10/23/2017 4:34 PM Signed PERTINENT CARDIAC HISTORY Chest pain - abnormal ECG HTN Glucose intolerance PE - 1989 DVT - 2007 IVC filter 2011 Palpitations - no complex arrhythmia NITHYA? - negative sleep study ADHERENCE TO GUIDELINES GISELE-I or ARB for HF with prior LVEF<40 (NQF 0081) - N/A ASA or Plavix for ASHD (NQF 0067) - N/A, on warfarin Beta yusuf for ASHD with prior AK or prior LVEF<40 (NQF 0070) - N/A Beta yusuf for HF with prior LVEF<40 (NQF 0083) - N/A GISELE-I or ARB for ASHD with DM or prior LVEF<40 (NQF 0066) - N/A Statin therapy for ASHD or FHL or DM - N/A BMI documented and plan if >25 ([facility] 0421) - lifestyle recommendation form Tobacco use screening and referral ([facility] 0028) - lifestyle recommendation form Recommendation for whole food, plant based diet - lifestyle recommendation form CLINICAL IMPRESSION/PLAN: Becky Martinez has stable chest pain pattern. This is unlikely to be related to ischemic heart disease. Her stress tests showed no evidence of ischemia. She has elected to defer angiography. I strongly advised her to increase her physical activity and get her weight under better control. She has been encouraged to wear support stockings for control of her peripheral edema. I will see her in 8 months or as needed. Written and verbal health teaching given to patient, patient verbalizes understanding and agrees with treatment plan. DIAGNOSIS FOR VISIT: Chest pain Palpitations HISTORY OF PRESENT ILLNESS Becky Martinez returns for follow-up of her chest pain syndrome. She reports stable exercise tolerance. She's been having some lower back pain but chest pain has improved. She's had no orthopnea. She denies syncope, palpitations, TIAs, amaurosis and claudication. She continues to gain weight. She has not been exercising. She's had minimal edema. ALLERGIES: ALLERGIES Allergen Reactions - Augmentin [Amoxicil* Other: See Comments Adverse effect, developed yeast infection - Bextra [Valdecoxib] Swelling Ankle swelling - Celebrex [Celecoxib] Swelling ankle swelling - Erythromycin Rash - Latex - Lovenox [Enoxaparin* Rash - Vioxx [Rofecoxib] Swelling ankle swelling - Voltaren [Diclofena* Swelling ankle swelling CURRENT OUTPATIENT MEDICATIONS: acetaminophen-codeine (TYLENOL-COD #4) 300-60 mg per tablet Take 1 tablet by mouth twice daily as needed for Pain for up to 15 days. atenolol (TENORMIN) 50 mg tablet Take 1 tablet by mouth once daily. atenolol (TENORMIN) 25 mg tablet Take 1 tablet by mouth once daily. lisinopril (ZESTRIL, PRINIVIL) 20 mg tablet Take 0.5 tablets by mouth once daily. tiZANidine (ZANAFLEX) 4 mg tablet Take 1 tablet by mouth every 6 hours as needed. gabapentin (NEURONTIN) 300 mg capsule Take 1 capsule by mouth daily at bedtime for 90 days. predniSONE (DELTASONE) 10 mg tablet Take 2 pills daily for 4 days, then take 1 pill daily for 4 days, then take 1/2 pill daily for 4 days amLODIPine (NORVASC) 10 mg tablet Take 1 tablet by mouth once daily. furosemide (LASIX) 20 mg tablet Take 1 tablet by mouth once daily. NEEDED warfarin (COUMADIN) 5 mg tablet Take 7.5 mg daily or as directed. nitroglycerin sublingual (NITROQUICK) 0.4 mg SL tablet Dissolve 1 tablet under the tongue as needed. FOR CHEST PAIN. IF NO RELIEF CALL 911 PHYSICAL EXAMINATION: VITAL SIGNS: BP 139/67 Pulse 61 Wt 388 lb 9.6 oz (176.3kg) Chest: Clear to percussion and auscultation. Trachea is midline. Air entry is equal. Cardiac: Regular rhythm. S1 and S2 are normal. PMI is nondisplaced. There is a soft systolic ejection murmur. Carotids are brisk without bruits. JVP is less than 10 cm. Abdomen: Soft and nontender. Obesity precludes adequate examination. There are no pulsatile masses or bruits. No liver enlargement. Bowel sounds are active. Extremities: 1 plus edema. She is not wearing support stockings. Pulses are intact and symmetrical. Recent labs were reviewed. Renal function is normal. LDL was 79. Electronically Signed: Casey Hudson MD October 23, 2017 11:20 AM CC: MD Casey Garcia MD 10/23/2017 11:25 AM Signed LIFESTYLE CHANGE A healthy lifestyle is the most important component of your overall treatment plan. Please give serious thought to the following areas and commit to making intermodal dispatcher changes. EAT A WHOLE FOOD, PLANT BASED DIET The nutrition your body gets is more important than the medicine you take. What matters most is the overall way you eat. We encourage you to minimize the use of animal products (which include dairy and all meats except fatty fish) and use whole, unprocessed plant foods to provide your protein, vitamins and other nutrients. We have a lot of information to share with you on this topic. This is not a diet. It is a way of life that you will keep with you. EXERCISE REGULARLY It is not important to spend hours in the gym, lifting weights and perspiring heavily. A total of 2-3 hours per week of aerobic (causing you to be moderately short of breath) exercise is sufficient to improve your health. Talk to us before you begin a new exercise program, if you have heart disease or experience shortness of breath or chest pain. REDUCE STRESS Chronic emotional and physical stress leads to disease. Ways of reducing stress include meditation, visualization, prayer, yoga and other forms of relaxation therapy. Consistency is the loyola. Find a technique that works for you and do it every day. CULTIVATE RELATIONSHIPS Loneliness and isolation have a major negative impact on health. Seek out others who can love, care for and nurture you. Avoid hurtful relationships. MAINTAIN IDEAL BODY WEIGHT The best way to do this is to do all the things above. Our bodies naturally find the right weight if we keep moving and feed ourselves the right food. If your BMI is greater than 25, we strongly recommend a referral to a weight management program. Please speak to us or your family physician about available programs. AVOID NICOTINE IN ALL FORMS This includes all tobacco products, whether chewed, smoked, vaped, or rubbed on the skin. Smoking cessation programs, which can make use of tobacco substitutes, medications to suppress cravings and behavior management, are available. Please contact your family physician about programs in your area. Referring Provider: CASEY HUDSON [[id number]] Allergies As of Date: 10/23/2017 Noted Allergy Reaction AUGMENTIN (AMOXICILLIN-POT CLAVUL*12/31/2004 14 - Other: See Comments Comments: Adverse effect, developed yeast infection BEXTRA (VALDECOXIB) 12/31/2004 7 - Swelling Comments: Ankle swelling CELEBREX (CELECOXIB) 12/31/2004 7 - Swelling Comments: ankle swelling ERYTHROMYCIN 12/31/2004 2 - Rash LATEX 12/31/2004 LOVENOX (ENOXAPARIN SODIUM) 06/23/2011 2 - Rash VIOXX (ROFECOXIB) 12/31/2004 7 - Swelling Comments: ankle swelling VOLTAREN (DICLOFENAC SODIUM) 12/31/2004 7 - Swelling Comments: ankle swelling Date Reviewed: 10/23/2017 Reviewed by: Courtney (Rn) Tanner - Fully Assessed Reason for Visit: Established Patient [175] Cmt: 8 month follow-up CP/HTN Visit Diagnosis:Essential hypertension, benign [I10] Order(s):atenolol (TENORMIN) 50 mg tabletTake 1 tablet by mouth once daily. Take 50 mg in the AM, 25 mg in the PMDisp: Rfl: INR (POC) [[id number]] Order #: [id number] #:[id number] Prescriptions as of 10/23/2017 Sig: ATENOLOL 50 MG TABLET Take 1 tablet by mouth once d* ACETAMINOPHEN 300 MG-CODEINE * Take 1 tablet by mouth twice * LISINOPRIL 20 MG TABLET Take 0.5 tablets by mouth onc* TIZANIDINE 4 MG TABLET Take 1 tablet by mouth every * GABAPENTIN 300 MG CAPSULE Take 1 capsule by mouth daily* PREDNISONE 10 MG TABLET Take 2 pills daily for 4 days* AMLODIPINE 10 MG TABLET Take 1 tablet by mouth once d* FUROSEMIDE 20 MG TABLET Take 1 tablet by mouth once d* WARFARIN 5 MG TABLET Take 7.5 mg daily or as direc* NITROGLYCERIN 0.4 MG SUBLINGU* Dissolve 1 tablet under the t* Problem List As Of Date 10/23/2017 Noted Resolved Allergic Rhinitis, Cause Unspecified [J30.9] INVALID FOR* Diverticulosis of Colon (without Mention of Hem* More... Irritable Bowel Syndrome [K58.9] Migraine NOS/Intractable [G43.919] More... 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 Other and Unspecified Disc Disorder of Unspecif* More... 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 Restless Legs Syndrome (RLS) [G25.81] INVALID FOR* Obstructive Sleep Apnea (Adult) (Pediatric) [G4*INVALID FOR* Essential Hypertension, Benign [I10] INVALID FOR* Other Abnormal Glucose [R73.09] INVALID FOR* Dysmetabolic Syndrome X [E88.81] INVALID FOR* Palpitations [R00.2] INVALID FOR*03/09/2012 More... Routine Gynecological Examination [Z01.419] INVALID FOR* Class: Chronic More... Obesity, Morbid [E66.01] INVALID FOR* Abdominal pain, left lower quadrant [R10.32] INVALID FOR*03/09/2012 Diarrhea [R19.7] INVALID FOR* Knee pain [M25.569] INVALID FOR* More... 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 Please give serious thought to the following areas and commit to making intermodal dispatcher changes. EAT A WHOLE FOOD, PLANT BASED DIET The nutrition your body gets is more important than the medicine you take. What matters most is the overall way you eat. We encourage you to minimize the use of animal products (which include dairy and all meats except fatty fish) and use whole, unprocessed plant foods to provide your protein, vitamins and other nutrients. We have a lot of information to share with you on this topic. This is not a diet. It is a way of life that you will keep with you. EXERCISE REGULARLY It is not important to spend hours in the gym, lifting weights and perspiring heavily. A total of 2-3 hours per week of aerobic (causing you to be moderately short of breath) exercise is sufficient to improve your health. Talk to us before you begin a new exercise program, if you have heart disease or experience shortness of breath or chest pain. REDUCE STRESS Chronic emotional and physical stress leads to disease. Ways of reducing stress include meditation, visualization, prayer, yoga and other forms of relaxation therapy. Consistency is the loyola. Find a technique that works for you and do it every day. CULTIVATE RELATIONSHIPS Loneliness and isolation have a major negative impact on health. Seek out others who can love, care for and nurture you. Avoid hurtful relationships. MAINTAIN IDEAL BODY WEIGHT The best way to do this is to do all the things above. Our bodies naturally find the right weight if we keep moving and feed ourselves the right food. If your BMI is greater than 25, we strongly recommend a referral to a weight management program. Please speak to us or your family physician about available programs. AVOID NICOTINE IN ALL FORMS This includes all tobacco products, whether chewed, smoked, vaped, or rubbed on the skin. Smoking cessation programs, which can make use of tobacco substitutes, medications to suppress cravings and behavior management, are available. Please contact your family physician about programs in your area. Prescriptions ordered this encounter Disp Refills Start End ATENOLOL 50 MG TABLET 10/23/2017 Class: Med Update Route: ORAL Sig: Take 1 tablet by mouth once daily. Take 50 mg in the AM, 25 mg in the PM Medications Discontinued During This Encounter atenolol (TENORMIN) 25 mg tablet 10/03/2017 10/23/2017 Class: Historical Med Route: ORAL Sig: Take 1 tablet by mouth once daily. Disc: Reason for discontinue is not on file. atenolol (TENORMIN) 50 mg tablet 10/03/2017 10/23/2017 Class: Historical Med Route: ORAL Sig: Take 1 tablet by mouth once daily. Disc: Reason for discontinue is not on file. Encounter Status:Closed by CASEY HUDSON MD on 10/23/17 PROGRESS Observed: 10/23/2017 Status: COMPLETED Source: [place] 10:50 AM [facility] REPOSITORY HNO ID: [id number] Author: Ben Cerna Service: (none) Author Type: Physician Type: Progress Notes Filed: 10/23/2017 2:58 PM Note Text: Hold coumadin today and tomorrow, recheck INR Wed Ben Cerna, DO PROGRESS Observed: 10/23/2017 Status: COMPLETED Source: [place] 10:45 AM [facility] REPOSITORY HNO ID: [id number] Author: Priscila Blanton RN Service: (none) Author Type: (none) Type: Progress Notes Filed: 10/23/2017 10:46 AM Note Text: patient had inr completed at [facility] patients inr is 4.7 (patients inr range is 2.0-3.0) patient is currently taking 7.5mg daily patients last dose change was on 08/01/17 due to a high level of 3.8 (dose at that time was 10mg Tues and 7.5mg all othere days) patient has had no changes in medication and no missed doses and no change in diet Advised patient that they would be contacted regarding medication dose and when to follow up after information is reviewed by provider. After provider review please contact the patient with information and schedule follow up appointment with coumadin clinic. FYI - patient has been scheduled for a 1 week follow up inr on 10/30/17 XR HIP 3V PELV+ Observed: 10/13/2017 Status: F Source: [place] AP/LAT RT 11:49 AM [facility] REPOSITORY * * *Final Report* * * DATE OF EXAM: Oct 13 2017 11:49AM [id number] [id number] - XR HIP 3V PELV+ AP/LAT RT / PROCEDURE REASON: Low back pain * * * * Physician Interpretation * * * * PROCEDURE: Lumbar spine, pelvis and right hip INDICATION: Low back pain . Pain radiating into hips. TECHNIQUE: XR LUMBAR 3V AP/LAT/L5-S1, XR HIP 3V PELV+ AP/LAT RT COMPARISON: Pelvis and right hip 03/25/2015 FINDINGS: Lumbar spine: There is normal alignment without acute fracture or subluxation. There is mild degenerative disc disease at L1- 2 and L2-3 and minimal degenerative disc disease at the lumbosacral junction. Mild vertebral body spurring is noted at all levels. No pars defects are seen. IVC filter is noted. Pelvis and right hip: Slight superior narrowing of both hip joints. No significant change. No evidence for avascular necrosis. No fracture. Sacroiliac joints are unremarkable. IMPRESSION: Mild lumbar and hip degenerative change. Fresh Food Manager: PSCB Transcribe Date/Time: Oct 14 2017 5:11P Dictated by : ELLIOT DE DIOS MD This examination was interpreted and the report reviewed and electronically signed by: ELLIOT DE DIOS MD on Oct 14 2017 5:14PM EST [id number] XR LUMBAR 3V Observed: 10/13/2017 Status: F Source: [place] AP/LAT/L5-S1 11:49 AM [facility] REPOSITORY * * *Final Report* * * DATE OF EXAM: Oct 13 2017 11:49AM [id number] - XR LUMBAR 3V AP/LAT/L5-S1 / PROCEDURE REASON: Low back pain * * * * Physician Interpretation * * * * PROCEDURE: Lumbar spine, pelvis and right hip INDICATION: Low back pain . Pain radiating into hips. TECHNIQUE: XR LUMBAR 3V AP/LAT/L5-S1, XR HIP 3V PELV+ AP/LAT RT COMPARISON: Pelvis and right hip 03/25/2015 FINDINGS: Lumbar spine: There is normal alignment without acute fracture or subluxation. There is mild degenerative disc disease at L1- 2 and L2-3 and minimal degenerative disc disease at the lumbosacral junction. Mild vertebral body spurring is noted at all levels. No pars defects are seen. IVC filter is noted. Pelvis and right hip: Slight superior narrowing of both hip joints. No significant change. No evidence for avascular necrosis. No fracture. Sacroiliac joints are unremarkable. IMPRESSION: Mild lumbar and hip degenerative change. Fresh Food Manager: PSCB Transcribe Date/Time: Oct 14 2017 5:11P Dictated by : ELLIOT DE DIOS MD This examination was interpreted and the report reviewed and electronically signed by: ELLIOT DE DIOS MD on Oct 14 2017 5:14PM EST [id number] PROGRESS Observed: 10/13/2017 Status: COMPLETED Source: [place] 11:32 AM [facility] REPOSITORY HNO ID: [id number] Author: Regina () Karli Benson Service: (none) Author Type: Scheduling Assistant Type: Progress Notes Filed: 10/13/2017 11:53 AM Note Text: Radiology Service Progress Note PATIENT NAME: Becky Martinez DATE OF SERVICE: October 13, 2017 TIME: 11:32 AM PATIENT IDENTITY VERIFICATION COMPLETED USING TWO (2) METHODS: Patient confirmed name verbally and Date of . PATIENT GENDER DATA: Female. status: : No status: NO. PATIENT RELEVANT IMPLANT DATA REVIEWED: Not Applicable RADIOLOGY DEPARTMENT: General X-ray: Exam(s) Completed: Spine X-Ray(s): Lumbar AP / LAT / L5-S1 Pelvis X-Ray: Pelvis with Hip Right PERIPHERAL IV DATA: Not applicable SIGNED BY: RT Charisma October 13, 2017 11:32 AM PROGRESS Observed: 10/13/2017 Status: COMPLETED Source: [place] 11:31 AM [facility] REPOSITORY HNO ID: [id number] Author: Autumn De La Garza (Rt) Karli Morse Service: (none) Author Type: Scheduling Assistant Type: Progress Notes Filed: 10/13/2017 11:53 AM Note Text: PROGRESS Observed: 10/03/2017 Status: COMPLETED Source: [place] 9:57 AM [facility] REPOSITORY HNO ID: [id number] Author: Milka Colindres Service: (none) Author Type: Physician Type: Progress Notes Filed: 10/03/2017 5:43 PM Note Text: Chief Complaint Patient presents with: F/U 6 Month: HTN and Pain HPI Becky Martinez is a 52 year old female who presents here today for a 6 mo f/u. HTN - Currently taking Atenolol 50 mg in the am and 25 mg in the pm and Lisinopril 20 mg 0.5 tab once daily. Pain - Having low back and right hip pain, worse at night. Has pain with laying on her right side. No relief with muscle relaxer. Has stopped taking neurontin. Past medical history, appointments, medications, allergies reviewed. Previous Medical History 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 - Diffuse cystic mastopathy - Diverticulosis of colon (without mention of hemorrhage) Diverticulosis - DVT of leg (deep venous thrombosis) (HCC) Right leg - Hypertension - Irritable bowel syndrome - Localized osteoarthrosis not specified whether primary or secondary, other specified sites RT KNEE - Migraine, unspecified, with intractable migraine, so stated, without mention of status migrainosus Migraine - Obesity, unspecified - Osteoarthritis of right knee - Other and unspecified disc disorder of unspecified region Intervertebral disc disorders - Other disorders of bladder - Personal history of colonic polyps 01/21/2015 - PMH - PAST MEDICAL HISTORY OF 1989 Pulmonary Embolism Previous Surgical History PAST SURGICAL HISTORY Procedure Laterality Date - APPENDECTOMY - COLONOSCOP W/ OR W/O [facility] SPEC 01/21/2015 Repeat 2024 - I/D PERIANAL ABSCESS, SUPERFICIAL 5-2-12 - KNEE SCOPE,DIAGNOSTIC 2007 Right knee - LIGATE FALLOPIAN TUBE - ME ANESTH,DX ARTHROSCOPIC PROC KNEE JOINT 1994 LT KNEE - ME ANESTH,DX ARTHROSCOPIC PROC KNEE JOINT 1994 RT KNEE - REDUCTION OF LARGE BREAST Breast reduction - REMOVAL GALLBLADDER Cholecystectomy - REPAIR ANAL FISTULA W/NICHELLE 12/09/11 - REPAIR UMBILICAL OUMOU,5+Y/O,REDUC Hernia repair, umbilical >5yr, x2 with mesh - TOTAL ABDOM HYSTERECTOMY Hysterectomy, ARIELLE - TOTAL KNEE REPLACEMENT Right 06/27/2011 - TREAT ECTOPIC PREG,NON REMVAL Ectopic Family History FAMILY HISTORY Problem Relation Age of Onset - Heart Father [place] age 50, sudden - Breast Cancer Mother - Coronary Artery Disease Brother Quadruple by-pass age 50 - Coronary Artery Disease Sister [place] late 30's - Stroke Sister - Other [OTHER] Brother pulmonary embolism - Other [OTHER] Sister pulmonary embolism - Heart Sister heart attack age 50, stent - Diabetes Sister older sister; obese Patient Allergies ALLERGIES Allergen Reactions - Augmentin [Amoxicil* Other: See Comments Adverse effect, developed yeast infection - Bextra [Valdecoxib] Swelling Ankle swelling - Celebrex [Celecoxib] Swelling ankle swelling - Erythromycin Rash - Latex - Lovenox [Enoxaparin* Rash - Vioxx [Rofecoxib] Swelling ankle swelling - Voltaren [Diclofena* Swelling ankle swelling Current Medications Current Outpatient Prescriptions on File Prior to Visit: amLODIPine (NORVASC) 10 mg tablet Take 1 tablet by mouth once daily. furosemide (LASIX) 20 mg tablet Take 1 tablet by mouth once daily. NEEDED tiZANidine (ZANAFLEX) 4 mg tablet Take 1 tablet by mouth every 6 hours as needed. acetaminophen-codeine (TYLENOL-COD #4) 300-60 mg per tablet Take 1 tablet by mouth twice daily as needed for Pain for up to 15 days. warfarin (COUMADIN) 5 mg tablet Take 7.5 mg daily or as directed. gabapentin (NEURONTIN) 100 mg capsule Take 1 capsule by mouth three times daily. lisinopril (ZESTRIL, PRINIVIL) 20 mg tablet Take 0.5 tablets by mouth once daily. nitroglycerin sublingual (NITROQUICK) 0.4 mg SL tablet Dissolve 1 tablet under the tongue as needed. FOR CHEST PAIN. IF NO RELIEF CALL 911 No current facility-administered medications on file prior to visit. Social History Social History Marital status: Spouse name: Years of education: Number of children: Social History Main Topics Smoking status: Former Smoker Packs/day: 0.50 Years: 2.00 Types: Cigarettes Quit date: 05/01/1979 Smokeless tobacco: Never Used Alcohol use: Yes Comment: socially Drug use: No Sexual activity: Yes Partners with: Male EXAM: BP 118/70 (BP Site: Left Arm, BP Position: Sitting, BP Cuff Size: Regular Adult) Pulse (!) 56 Resp 16 Wt (!) 173.5 kg (382 lb 6.4 oz) BMI 59.89 kg/m? General Appearance: Well appearing, alert, in no acute distress, well-hydrated, well nourished., Morbidly obese. Back:tenderness to lower lumbar are Lungs: Lungs clear to auscultation. No wheezing, rhonchi, rales. Heart: RRR without murmur, gallop, or rubs. No ectopy. Health Maintenance List DTAP,TDAP,TD(1 - Tdap) due on 01/25/1983 HEPATITIS C SCREENING due on 2008 MAMMOGRAM due on 04/12/2017 DIABETES SCREEN due on 09/12/2020 LIPID SCREEN due on 09/12/2022 COLORECTAL CANCER SCREENING,SEE MODIFIER due on 01/21/2025 INFLUENZA Completed Data reviewed None ASSESSMENT/PLAN: 1. Essential hypertension, benign - ICD9: 401.1, ICD10: I10 (primary diagnosis) - good control - Continue current medication(s) - Goal of BP <140/90 - ATENOLOL 50 MG TABLET - ATENOLOL 25 MG TABLET 2. BENIGN HYPERTENSION - ICD9: 401.1, ICD10: I10 - good control - LISINOPRIL 20 MG TABLET - HGB A1C 3. Restless legs syndrome (RLS) - ICD9: 333.94, ICD10: G25.81 4. Chronic midline low back pain without sciatica - ICD9: 724.2, 338.29, ICD10: M54.5, G89.29 Chronic low back pain Course of prednisone - TIZANIDINE 4 MG TABLET - GABAPENTIN 300 MG CAPSULE - PREDNISONE 10 MG TABLET 5. Elevated glucose - ICD9: 790.29, ICD10: R73.09 - HGB A1C - COMP METABOLIC PANEL Follow up in 6 months Milka Colindres MD CNOV Observed: 10/03/2017 Status: COMPLETED Source: [place] 9:40 AM [facility] REPOSITORY Office Visit (FAMPWS) BECKY MARTINEZ ([id number]) 1965 F Date Time Provider Department 10/03/17 9:40 AM MILKA COLINDRES During your visit today, we recorded the following information about you: Pulse Respiration Blood pressure Weight 56/minute 16/minute 118/70 173.5 kg Milka Colindres MD 10/03/2017 5:43 PM Signed Chief Complaint Patient presents with: F/U 6 Month: HTN and Pain HPI Becky Martinez is a 52 year old female who presents here today for a 6 mo f/u. HTN - Currently taking Atenolol 50 mg in the am and 25 mg in the pm and Lisinopril 20 mg 0.5 tab once daily. Pain - Having low back and right hip pain, worse at night. Has pain with laying on her right side. No relief with muscle relaxer. Has stopped taking neurontin. Past medical history, appointments, medications, allergies reviewed. Previous Medical History 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 - Diffuse cystic mastopathy - Diverticulosis of colon (without mention of hemorrhage) Diverticulosis - DVT of leg (deep venous thrombosis) (HCC) Right leg - Hypertension - Irritable bowel syndrome - Localized osteoarthrosis not specified whether primary or secondary, other specified sites RT KNEE - Migraine, unspecified, with intractable migraine, so stated, without mention of status migrainosus Migraine - Obesity, unspecified - Osteoarthritis of right knee - Other and unspecified disc disorder of unspecified region Intervertebral disc disorders - Other disorders of bladder - Personal history of colonic polyps 01/21/2015 - PMH - PAST MEDICAL HISTORY OF 1989 Pulmonary Embolism Previous Surgical History PAST SURGICAL HISTORY Procedure Laterality Date - APPENDECTOMY - COLONOSCOP W/ OR W/O [facility] SPEC 01/21/2015 Repeat 2024 - I/D PERIANAL ABSCESS, SUPERFICIAL 5-2-12 - KNEE SCOPE,DIAGNOSTIC 2007 Right knee - LIGATE FALLOPIAN TUBE - ME ANESTH,DX ARTHROSCOPIC PROC KNEE JOINT 1994 LT KNEE - ME ANESTH,DX ARTHROSCOPIC PROC KNEE JOINT 1994 RT KNEE - REDUCTION OF LARGE BREAST Breast reduction - REMOVAL GALLBLADDER Cholecystectomy - REPAIR ANAL FISTULA W/NICHELLE 12/09/11 - REPAIR UMBILICAL OUMOU,5+Y/O,REDUC Hernia repair, umbilical >5yr, x2 with mesh - TOTAL ABDOM HYSTERECTOMY Hysterectomy, ARIELLE - TOTAL KNEE REPLACEMENT Right 06/27/2011 - TREAT ECTOPIC PREG,NON REMVAL Ectopic Family History FAMILY HISTORY Problem Relation Age of Onset - Heart Father [place] age 50, sudden - Breast Cancer Mother - Coronary Artery Disease Brother Quadruple by-pass age 50 - Coronary Artery Disease Sister [place] late 30s - Stroke Sister - Other [OTHER] Brother pulmonary embolism - Other [OTHER] Sister pulmonary embolism - Heart Sister heart attack age 50, stent - Diabetes Sister older sister; obese Patient Allergies ALLERGIES Allergen Reactions - Augmentin [Amoxicil* Other: See Comments Adverse effect, developed yeast infection - Bextra [Valdecoxib] Swelling Ankle swelling - Celebrex [Celecoxib] Swelling ankle swelling - Erythromycin Rash - Latex - Lovenox [Enoxaparin* Rash - Vioxx [Rofecoxib] Swelling ankle swelling - Voltaren [Diclofena* Swelling ankle swelling Current Medications Current Outpatient Prescriptions on File Prior to Visit: amLODIPine (NORVASC) 10 mg tablet Take 1 tablet by mouth once daily. furosemide (LASIX) 20 mg tablet Take 1 tablet by mouth once daily. NEEDED tiZANidine (ZANAFLEX) 4 mg tablet Take 1 tablet by mouth every 6 hours as needed. acetaminophen-codeine (TYLENOL-COD #4) 300-60 mg per tablet Take 1 tablet by mouth twice daily as needed for Pain for up to 15 days. warfarin (COUMADIN) 5 mg tablet Take 7.5 mg daily or as directed. gabapentin (NEURONTIN) 100 mg capsule Take 1 capsule by mouth three times daily. lisinopril (ZESTRIL, PRINIVIL) 20 mg tablet Take 0.5 tablets by mouth once daily. nitroglycerin sublingual (NITROQUICK) 0.4 mg SL tablet Dissolve 1 tablet under the tongue as needed. FOR CHEST PAIN. IF NO RELIEF CALL 911 No current facility-administered medications on file prior to visit. Social History Social History Marital status: Spouse name: Years of education: Number of children: Social History Main Topics Smoking status: Former Smoker Packs/day: 0.50 Years: 2.00 Types: Cigarettes Quit date: 05/01/1979 Smokeless tobacco: Never Used Alcohol use: Yes Comment: socially Drug use: No Sexual activity: Yes Partners with: Male EXAM: BP 118/70 (BP Site: Left Arm, BP Position: Sitting, BP Cuff Size: Regular Adult) Pulse (!) 56 Resp 16 Wt (!) 173.5 kg (382 lb 6.4 oz) BMI 59.89 kg/m? General Appearance: Well appearing, alert, in no acute distress, well-hydrated, well nourished., Morbidly obese. Back:tenderness to lower lumbar are Lungs: Lungs clear to auscultation. No wheezing, rhonchi, rales. Heart: RRR without murmur, gallop, or rubs. No ectopy. Health Maintenance List DTAP,TDAP,TD(1 - Tdap) due on 01/25/1983 HEPATITIS C SCREENING due on 2008 MAMMOGRAM due on 04/12/2017 DIABETES SCREEN due on 09/12/2020 LIPID SCREEN due on 09/12/2022 COLORECTAL CANCER SCREENING,SEE MODIFIER due on 01/21/2025 INFLUENZA Completed Data reviewed None ASSESSMENT/PLAN: 1. Essential hypertension, benign - ICD9: 401.1, ICD10: I10 (primary diagnosis) - good control - Continue current medication(s) - Goal of BP <140/90 - ATENOLOL 50 MG TABLET - ATENOLOL 25 MG TABLET 2. BENIGN HYPERTENSION - ICD9: 401.1, ICD10: I10 - good control - LISINOPRIL 20 MG TABLET - HGB A1C 3. Restless legs syndrome (RLS) - ICD9: 333.94, ICD10: G25.81 4. Chronic midline low back pain without sciatica - ICD9: 724.2, 338.29, ICD10: M54.5, G89.29 Chronic low back pain Course of prednisone - TIZANIDINE 4 MG TABLET - GABAPENTIN 300 MG CAPSULE - PREDNISONE 10 MG TABLET 5. Elevated glucose - ICD9: 790.29, ICD10: R73.09 - HGB A1C - COMP METABOLIC PANEL Follow up in 6 months Milka Colindres MD Referring Provider: MILKA COLINDRES [[id number]] Allergies As of Date: 10/03/2017 Noted Allergy Reaction AUGMENTIN (AMOXICILLIN-POT CLAVUL*12/31/2004 14 - Other: See Comments Comments: Adverse effect, developed yeast infection BEXTRA (VALDECOXIB) 12/31/2004 7 - Swelling Comments: Ankle swelling CELEBREX (CELECOXIB) 12/31/2004 7 - Swelling Comments: ankle swelling ERYTHROMYCIN 12/31/2004 2 - Rash LATEX 12/31/2004 LOVENOX (ENOXAPARIN SODIUM) 06/23/2011 2 - Rash VIOXX (ROFECOXIB) 12/31/2004 7 - Swelling Comments: ankle swelling VOLTAREN (DICLOFENAC SODIUM) 12/31/2004 7 - Swelling Comments: ankle swelling Date Reviewed: 10/03/2017 Reviewed by: Cherelle Lr Ma - Fully Assessed Reason for Visit: F/U 6 Month [444] Cmt: HTN and Pain Primary Visit Diagnosis:Essential hypertension, benign [I10] Other Visit Diagnoses:BENIGN HYPERTENSION [I10] Restless legs syndrome (RLS) [G25.81] Chronic midline low back pain without sciatica [M54.5, G89.29] Elevated glucose [R73.09] Order(s):lisinopril (ZESTRIL, PRINIVIL) 20 mg tabletTake 0.5 tablets by mouth once daily.Disp: 90 tabletRfl: 3 tiZANidine (ZANAFLEX) 4 mg tabletTake 1 tablet by mouth every 6 hours as needed.Disp: 30 tabletRfl: 1 gabapentin (NEURONTIN) 300 mg capsuleTake 1 capsule by mouth daily at bedtime for 90 days.Disp: 30 capsuleRfl: 2 predniSONE (DELTASONE) 10 mg tabletTake 2 pills daily for 4 days, then take 1 pill daily for 4 days, then take 1/2 pill daily for 4 daysDisp: 15 tabletRfl: 0 HGB A1C [[id number]] Order #: [id number] FUTURE COMP METABOLIC PANEL [SQCMP] Order #: [id number] FUTURE Prescriptions as of 10/03/2017 Sig: ATENOLOL 50 MG TABLET Take 1 tablet by mouth once d* ATENOLOL 25 MG TABLET Take 1 tablet by mouth once d* LISINOPRIL 20 MG TABLET Take 0.5 tablets by mouth onc* TIZANIDINE 4 MG TABLET Take 1 tablet by mouth every * AMLODIPINE 10 MG TABLET Take 1 tablet by mouth once d* FUROSEMIDE 20 MG TABLET Take 1 tablet by mouth once d* ACETAMINOPHEN 300 MG-CODEINE * Take 1 tablet by mouth twice * WARFARIN 5 MG TABLET Take 7.5 mg daily or as direc* NITROGLYCERIN 0.4 MG SUBLINGU* Dissolve 1 tablet under the t* GABAPENTIN 300 MG CAPSULE Take 1 capsule by mouth daily* PREDNISONE 10 MG TABLET Take 2 pills daily for 4 days* Problem List As Of Date 10/03/2017 Noted Resolved Allergic Rhinitis, Cause Unspecified [J30.9] INVALID FOR* Diverticulosis of Colon (without Mention of Hem* More... Irritable Bowel Syndrome [K58.9] Migraine NOS/Intractable [G43.919] More... 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 Other and Unspecified Disc Disorder of Unspecif* More... 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 Restless Legs Syndrome (RLS) [G25.81] INVALID FOR* Obstructive Sleep Apnea (Adult) (Pediatric) [G4*INVALID FOR* Essential Hypertension, Benign [I10] INVALID FOR* Other Abnormal Glucose [R73.09] INVALID FOR* Dysmetabolic Syndrome X [E88.81] INVALID FOR* Palpitations [R00.2] INVALID FOR*03/09/2012 More... Routine Gynecological Examination [Z01.419] INVALID FOR* Class: Chronic More... Obesity, Morbid [E66.01] INVALID FOR* Abdominal pain, left lower quadrant [R10.32] INVALID FOR*03/09/2012 Diarrhea [R19.7] INVALID FOR* Knee pain [M25.569] INVALID FOR* More... 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 TIZANIDINE 4 MG TABLET 30 t* 1 10/03/2017 Route: ORAL Sig: Take 1 tablet by mouth every 6 hours as needed. GABAPENTIN 300 MG CAPSULE 30 c* 2 10/03/2017 01/01/2018 Route: ORAL Sig: Take 1 capsule by mouth daily at bedtime for 90 days. PREDNISONE 10 MG TABLET 15 t* 0 10/03/2017 Sig: Take 2 pills daily for 4 days, then take 1 pill daily for 4 days, then take 1/2 pill daily for 4 days Medications Discontinued During This Encounter triamcinolone acetonide (KENALOG) 0.* 15 g 0 08/01/2017 10/03/2017 Route: TOPICAL Sig: Apply 1 application to affected area twice daily. For rash/itching. Apply sparingly. Avoid face/skin fold. Disc: Course of therapy completed atenolol (TENORMIN) 25 mg tablet 180 * 3 07/11/2017 10/03/2017 Sig: TAKE 1 TABLET TWICE DAILY Disc: Reason for discontinue is not on file. gabapentin (NEURONTIN) 100 mg capsule 270 * 3 03/06/2017 10/03/2017 Route: ORAL Sig: Take 1 capsule by mouth three times daily. Disc: Reason for discontinue is not on file. lisinopril (ZESTRIL, PRINIVIL) 20 mg* 90 t* 3 03/02/2016 10/03/2017 Route: ORAL Sig: Take 0.5 tablets by mouth once daily. Disc: Reason for discontinue is not on file. tiZANidine (ZANAFLEX) 4 mg tablet 30 t* 1 08/28/2017 10/03/2017 Route: ORAL Sig: Take 1 tablet by mouth every 6 hours as needed. Disc: Reason for discontinue is not on file. Disposition: Return in about 6 months (around 04/04/2018). Follow-up and Disposition History Recorded Encounter Status:Closed by MILKA COLINDRES MD on 10/03/17 PROGRESS Observed: 09/26/2017 Status: COMPLETED Source: [place] 12:17 PM [facility] [employer] REPOSITORY HNO ID: [id number] Author: Milka Colindres Service: (none) Author Type: Physician Type: Progress Notes Filed: 09/26/2017 1:21 PM Note Text: I agree with the advice given; stay same and recheck in 4 weeks Milka Colindres MD PROGRESS Observed: 09/26/2017 Status: COMPLETED Source: [place] 11:54 AM [facility] REPOSITORY HNO ID: [id number] Author: Priscila Blanton RN Service: (none) Author Type: (none) Type: Progress Notes Filed: 09/26/2017 11:55 AM Note Text: patient had inr completed at [facility] patients inr is 2.4 (patients inr range is 2.0-3.0) patient is currently taking 7.5mg daily patients last dose change was on 08/15/17 due to a low level of 1.6 (dose at that time was 5mg Fri and 7.5mg all other days) patient has had no changes in medication and no missed doses and no change in diet Advised patient to continue on the same dose(s) and that they would only be contacted regarding dosage and follow up instructions after review with provider, if a change is needed. Written instructions given and patient verbalized understanding. Presently scheduled in 4 weeks (10/23/17) for follow up INR. PROTIME Collected: 09/12/2017 Status: F Source: [place] 3:10 PM [facility] REPOSITORY TYPE CODE TESTS RESULT OUT OF RANGE REFERENCE UNITS LAB PSEC 9.7-13.0 sec High PT Sec 22.4 LAB INR 0.9-1.3 High PT INR 2.3 Result Comment: Vitamin K Antagonist (VKA) Therapeutic Range: INR 2 to 3 (Target INR of 2.5) Note: For patients treated with VKA drugs, such as warfarin, the [place] [employer] 2012 Guideline recommends a therapeutic INR range of 2 to 3 (target INR of 2.5). This recommendation includes high-risk patients with antiphospholipid syndrome with previous arterial or venous thromboembolism, current-generation mechanical or bioprosthetic aortic heart valve replacement. Note: Patients with mechanical aortic valve replacement and additional risk factors for thromboembolic events (atrial fibrillation, previous thromboembolism, LV dysfunction, hypercoagulable conditions) or an older generation mechanical AVR (i.e., ball in-Cage) or any mechanical MVR should have a INR therapeutic range of 2.5 to 3.5 (target INR of 3). Max NICOLE, et al. Chest 2012, 141:7S-47S Dhara FELICIANO, et al. [facility] 2017, 70: 252-289 Performed By: #### PT #### [facility] [address] [place], [place] [address] COMP METABOLIC PANEL Collected: 09/12/2017 Status: F Source: [place] 9:29 AM [facility] REPOSITORY TYPE CODE TESTS RESULT OUT OF REFERENCE UNITS RANGE LAB TP 6.3-8.0 g/dL Protein, Total 6.7 LAB ALB 3.9-4.9 g/dL Albumin 4.1 LAB CA 8.5-10.2 mg/dL Calcium, Total 9.3 LAB TBIL 0.2-1.3 mg/dL Bilirubin, Total 0.5 LAB ALKP 32-117 U/L Alkaline Phosphatase 66 LAB AST 13-35 U/L AST 13 LAB GLU 74-99 mg/dL Glucose High 103 Result Comment: The [place] Diabetes Association (ADA) provides guidance for cutoff values for fasting glucose and random glucose. The ADA defines fasting as no caloric intake for at least 8 hours. Fas ting plasma glucose results between 100 to 125 mg/dL indicate increased risk for diabetes (prediabetes). Fasting plasma glucose results greater than or equal to 126 mg/dL meet the criteria for diagnosis of diabetes. In the absence of unequivocal hyperglycemia, results should be confirmed by repeat testing. In a patient with classic symptoms of hyperglycemia or hyperglycemic crisis, random plasma glucose results greater than or equal to 200 mg/dL meet the criteria for diagnosis of diabetes. Reference: Standards of Medical Care in Diabetes 2016, [place] [employer] Association. Diabetes Care. 2016.39(Suppl 1). LAB BUN 7-21 mg/dL BUN 16 LAB CRET 0.58-0.96 mg/dL Creatinine 0.83 LAB NA 136-144 mmol/L Sodium 140 LAB K 3.7-5.1 mmol/L Potassium 4.5 LAB CL 97-105 mmol/L Chloride 101 LAB CO2 22-30 mmol/L CO2 26 LAB AGAP 9-18 mmol/L Anion Gap 13 LAB ALT 7-38 U/L ALT 15 LAB GFRAA eGFR- Amer. >60 LAB GFRNAA . eGFR-All Other Races >60 Result Comment: eGFR (Estimated GFR) Units of measure: mL/min/1.73 meters squared eGFR is derived from the reexpressed MDRD Study equation using the following parameters: serum creatinine, age, gender and race. The creatinine assay has been calibrated to be traceable to IDMS. An eGFR <60 mL/min/1.73m2 for >3 months is consistent with chronic kidney disease. Refer to KDOQI guidelines for clinical interpretation. In patients with unstable renal function, e.g. those with acute kidney injury, the eGFR may not accurately reflect actual GFR. Performed By: #### CMP, LIPB, HBA1C #### [facility] [address] [place], [place] [address] LIPID PANEL, BASIC Collected: 09/12/2017 Status: F Source: [place] 9:29 AM [facility] REPOSITORY TYPE CODE TESTS RESULT OUT OF REFERENCE UNITS RANGE LAB CHOL <200 mg/dL Cholesterol 142 Result Comment: <200 mg/dL, Desirable 200-239 mg/dL, Borderline high >239 mg/dL, High LAB TRIGLY <150 mg/dL Triglyceride 71 Result Comment: <150 mg/dL, Normal 150-199 mg/dL, Borderline high 200-499 mg/dL, High >499 mg/dL, Very high LAB HDL >39 mg/dL HDL-Cholesterol 49 Result Comment: 40-59 mg/dL, Acceptable >59 mg/dL, High: Negative risk factor for coronary heart disease <40 mg/dL, Low: Positive risk factor for coronary heart disease LAB LDL <100 mg/dL LDL-Cholesterol 79 Result Comment: <100 mg/dL, Optimal 100-129 mg/dL, Near optimal/above optimal 130-159 mg/dL, Borderline high 160-189 mg/dL, High >189 mg/dL, Very high Secondary prevention optimal LDL Cholesterol levels are recommended to be < 70 mg/dL LAB NONHDL <130 mg/dL Non HDL Cholesterol 93 Result Comment: <130 mg/dL, Optimal 130-159 mg/dL, Near optimal/above optimal 160-189 mg/dL, Borderline high 190-219 mg/dL, High >219 mg/dL, Very high Secondary prevention optimal non HDL Cholesterol levels are recommended to be < 100 mg/dL LAB FT hrs Fasting Time 12 LAB VLDL <30 mg/dL VLDL Cholesterol 14 LAB TCHDL <5.10 TC:HDL Ratio 2.90 LAB LDLHDL <2.54 LDL:HDL Ratio 1.61 Result Comment: Reference: 1. National Cholesterol Education Program ATP III Guideline At-A-Glance Quick Desk Reference: National Heart, Lung, and Blood [place]. National Institutes of Health. 2001: NIH Publication No. 01-3305. 2. An International Atherosclerosis Society position paper: global recommendations for the management of dyslipidemia: executive summary, Atherosclerosis. 2014: 232(2):410-413. Performed By: #### CMP, LIPB, HBA1C #### [facility] [address] [place], [place] [address] HEMOGLOBIN A1C Collected: 09/12/2017 Status: F Source: [place] 9:29 AM [facility] REPOSITORY TYPE CODE TESTS RESULT OUT OF REFERENCE UNITS RANGE LAB HGBA1C 4.3-5.6 % High Hemoglobin A1c 6.0 LAB HBA0 mg/dL Est. Average Glucose 126 Result Comment: eAG: (Estimated average glucose) is a calculated value from HgbA1c and is airline security representative of the average blood glucose level in the last 2-3 month period. Performed By: #### CMP, LIPB, HBA1C #### [facility] [address] [place], [place] [address] ORTHOPEDIC VISIT Observed: 08/31/2017 Status: F Source: [place] 4:29 PM [facility] REPOSITORY [facility] [address] [place] [address] OFFICE VISIT Date of Service: 08/31/17 MR#: [id number] Acct: [id number] Name: BECKY MARTINEZ Rep #: [id number] : 1965 Provider: Lisette Banks DO Age/Sex: 52/F Location: [facility] Status: Signed Intake Intake Visit Reasons: Bilat Hands Is patient in pain?: Yes Allergies enoxaparin sodium [From Lovenox] Allergy (Verified 08/31/17 14:43) Rash erythromycin lactobionate [From Erythrocin] Allergy (Verified 08/31/17 14:43) Rash Latex, Natural Rubber Allergy (Verified 08/31/17 14:43) Rash rofecoxib [From Vioxx] Allergy (Verified 08/31/17 14:43) Swelling valdecoxib [From Bextra] Allergy (Verified 08/31/17 14:43) Rash amoxicillin trihydrate [From Augmentin] Adverse Reaction (Verified 08/31/17 14:43) Other potassium clavulanate [From Augmentin] Adverse Reaction (Verified 08/31/17 14:43) Other Medications Lisinopril [Zestril] 10 mg PO DAILY 08/07/13 [History Confirmed 07/30/17] Warfarin [Coumadin] 7.5 mg PO SUMOWETHFRSA 08/07/13 [History Confirmed 07/30/17] Cyclobenzaprine [Flexeril] 10 mg PO TID PRN PRN 03/04/14 [History Confirmed 07/30/17] Acetaminophen with Codeine [Tylenol with Codeine #4 Tablet] 1 ea PO Q4H PRN PRN 02/02/16 [History Confirmed 07/30/17] Atenolol [Tenormin (beta yusuf)] 50 mg PO DAILY 02/02/16 [History Confirmed 07/30/17] Gabapentin [Neurontin] 100 mg PO TIDCM 02/02/16 [History Confirmed 07/30/17] Furosemide [Lasix] 20 mg PO DAILY PRN PRN 02/05/16 [History Confirmed 07/30/17] Amlodipine [Norvasc] 2.5 mg PO DAILY 07/25/16 [History Confirmed 07/30/17] Atenolol [Tenormin (beta yusuf)] 25 mg PO QHS 07/30/17 [History Confirmed 07/30/17] Fluconazole [Diflucan] 400 mg PO DAILY #5 days 07/30/17 [Rx] Nystatin Powder [Mycostatin Powder] 1 applic TOPICAL TID #1 bottle 07/30/17 [Rx] Warfarin Sodium [Warfarin Sodium] 10 mg PO TU 07/30/17 [History Confirmed 07/30/17] PFSH Medical History s/p elbow (Inactive) Surgical History H/O: hysterectomy (Inactive) S/P arthroscopy of knee (Inactive) S/P hernia repair (Inactive) S/P knee replacement (Inactive) Family History Sister Heart disease Brother Heart disease Father Heart disease Mother Breast cancer Social History Smoking Status: Never smoker HPI Bilat Hands: Details: BECKY MARTINEZ is a 52 year old F here today for bilateral thumb pain, right worse than left. Patient states that she has pain at the base of her thumb and into her wrist. Patient had injections on 06/01/17 which were helpful for about 2 months. Patient has swelling into her right hand. Denies numbness, tingling or other associated symptoms. ROS Const Reports system reviewed and no additional complaints, except as docu Eyes Reports system reviewed and no additional complaints, except as docu ENT Reports system reviewed and no additional complaints, except as docu Card Reports system reviewed and no additional complaints, except as docu Resp Reports system reviewed and no additional complaints, except as docu GI Reports system reviewed and no additional complaints, except as docu Reports system reviewed and no additional complaints, except as docu Musc Reports joint pain Skin/Breast Reports system reviewed and no additional complaints, except as docu Neuro Yes system reviewed and no additional complaints, except as docu Psych Reports system reviewed and no additional complaints, except as docu Endo Reports system reviewed and no additional complaints, except as docu Ortho Exam Right Wrist/Hand Skin/Wound: Yes CDI Contralateral Normal: No A1 roel trigger: No WRIST: cmc grind Left Wrist/Hand Skin/Wound: Yes CDI Contralateral Normal: No A1 roel trigger: No WRIST: cmc grind Office Procedures Ortho Injections Injections Yes CMC Bilateral Details: Obtained consent for injection. Under sterile conditions, injected the patients right and left CMC with a 1.5cc cocktail of 1cc bupivacaine and 0.5cc kenalog. The patient tolerated the injection well without any noted complication. Patient should call our office if redness develops, pain worsens or if they have any concerns. Office Meds Kenalog Performing Provider: Lisette Banks DO Administered by: Lisette Banks DO on 08/31/17 14:57 Dose Route Admin Location Lot Number Expiration DateNDC Checkroom Chief 1 mg Intra-ArticularB CMC [id number] 08/29/18 3274-9955-88 [email or web address] Assessment AND Plan 1. Primary osteoarthritis of both first carpometacarpal joints M18.0 Plan Will continued conservative care with injections, her skin discoloration is normal side effect of the steroid. If this injection fails she might be ready for cmc arthoplasty. Follow up as needed or sooner if pain, swelling, numbness or associated symptoms, or concerns develop. All questions answered. Patient in agreement of plan. Orders Orders: Medications Discontinued: Kenalog (triamcinolone acetonide) Disc1 mg (0.1 mL) Intra- Articular ONCE NS Kike Hair ontinued Reason: Office Medication has b een Documented as given Coding Level of Care Code Off vis,est,level 3 Diagnoses Primary osteoarthritis of both first carpometacarpal joints M18.0 Osteoarthritis type: primary Additional Codes rn clinical review.[facility] ([id number]) 08/31/17 1629 <Electronically signed by Lisette Banks DO> Date Lisette Banks DO Cosigner Signature: Date (if applicable) CC: PROGRESS Observed: 08/28/2017 Status: COMPLETED Source: [place] 3:58 PM [facility] REPOSITORY HNO ID: [id number] Author: Milka Colindres Service: (none) Author Type: Physician Type: Progress Notes Filed: 08/28/2017 4:02 PM Note Text: I agree with the advice given; stay same dose and recheck in 2 weeks as planned Milka Colindres MD PROGRESS Observed: 08/28/2017 Status: COMPLETED Source: [place] 10:22 AM [facility] REPOSITORY HNO ID: [id number] Author: Priscila Blanton RN Service: (none) Author Type: (none) Type: Progress Notes Filed: 08/28/2017 10:23 AM Note Text: patient had inr completed at [facility] patients inr is 2.5 (patients inr range is 2.0-3.0) patient is currently taking 7.5mg daily patients last dose change was on 08/15/17 due to a low level of 1.6 (dose at that time was 5mg Fri and 7.5mg all other days) patient has had no changes in medication except for the coumadin and no missed doses and no change in diet Advised patient to continue on the same dose(s) and that they would only be contacted regarding dosage and follow up instructions after review with provider, if a change is needed. Written instructions given and patient verbalized understanding. Presently scheduled in 2 weeks (09/11/17) for follow up INR since this is the first normal reading since dose change. PROGRESS Observed: 08/15/2017 Status: COMPLETED Source: [place] 3:50 PM [facility] REPOSITORY HNO ID: [id number] Author: Pinky Dawkins Ma Service: (none) Author Type: (none) Type: Progress Notes Filed: 08/15/2017 3:51 PM Note Text: Pt notified and voiced understanding. Tracker and med list updated. Pinky Dawkins Ma PROGRESS Observed: 08/15/2017 Status: COMPLETED Source: [place] 2:27 PM [facility] [employer] REPOSITORY HNO ID: [id number] Author: Milka Colindres Service: (none) Author Type: Physician Type: Progress Notes Filed: 08/15/2017 3:51 PM Note Text: Go back to 7.5 mg daily Recheck in 2 weeks as planned Milka Colindres MD PROGRESS Observed: 08/15/2017 Status: COMPLETED Source: [place] 1:30 PM [facility] [employer] REPOSITORY HNO ID: [id number] Author: Priscila Blanton RN Service: (none) Author Type: (none) Type: Progress Notes Filed: 08/15/2017 1:33 PM Note Text: patient had inr completed at [facility] patients inr is 1.6 (patients inr range is 2.0-3.0) patient is currently taking 5mg Fri and 7.5mg all other days patients last dose change was on 08/08/17 due to a high level of 3.6 (dose at that time was 7.5mg daily) patient has had no changes in medication except for the coumadin and no uninstructed missed doses (pt was instructed to hold her 4/10 dose) and no change in diet Advised patient that they would be contacted regarding medication dose and when to follow up after information is reviewed by provider. After provider review please contact the patient with information and schedule follow up appointment with coumadin clinic. FYI - patient has been scheduled for a 2 week follow up inr on 08/28/17 PROGRESS Observed: 08/08/2017 Status: COMPLETED Source: [place] 4:59 PM [facility] [employer] REPOSITORY HNO ID: [id number] Author: Priscila Blanton RN Service: (none) Author Type: (none) Type: Progress Notes Filed: 08/08/2017 4:59 PM Note Text: PATIENT NOTIFIED OF INFORMATION PROGRESS Observed: 08/08/2017 Status: COMPLETED Source: [place] 2:24 PM [facility] REPOSITORY HNO ID: [id number] Author: Milka Colindres Service: (none) Author Type: Physician Type: Progress Notes Filed: 08/08/2017 4:59 PM Note Text: Hold for one day, then go to 5 mg on Mon, 7.5 mg all other days Recheck in 1 week as planned Milka Colindres MD PROGRESS Observed: 08/08/2017 Status: COMPLETED Source: [place] 10:16 AM [facility] REPOSITORY HNO ID: [id number] Author: Priscila Blanton RN Service: (none) Author Type: (none) Type: Progress Notes Filed: 08/08/2017 10:18 AM Note Text: patient had inr completed at [facility] patients inr is 3.6 (patients inr range is 2.0-3.0) patient is currently taking 7.5mg daily patients last dose change was on 08/01/17 due to a high level of 3.8 (dose at that time was 10mg Tu and 7.5mg all other days) patient has had a change in medication and she has finished antibiotic and coumadin dose was changed, patient has not missed any doses and no change in diet Advised patient that they would be contacted regarding medication dose and when to follow up after information is reviewed by provider. After provider review please contact the patient with information and schedule follow up appointment with coumadin clinic. FYI - patient has been scheduled for a 1 week follow up inr on 08/15/17 PROGRESS Observed: 08/01/2017 Status: COMPLETED Source: [place] 4:07 PM [facility] [employer] REPOSITORY HNO ID: [id number] Author: Priscila Blanton RN Service: (none) Author Type: (none) Type: Progress Notes Filed: 08/01/2017 4:08 PM Note Text: detailed message left for patient with information and to contact the office with any problems or questions PROGRESS Observed: 08/01/2017 Status: COMPLETED Source: [place] 3:36 PM [facility] [employer] REPOSITORY HNO ID: [id number] Author: Milka Colindres Service: (none) Author Type: Physician Type: Progress Notes Filed: 08/01/2017 4:08 PM Note Text: Hold today, then go to 7.5 mg daily Recheck in 1 week as planned Milka Colindres MD PROGRESS Observed: 08/01/2017 Status: COMPLETED Source: [place] 10:32 AM [facility] REPOSITORY HNO ID: [id number] Author: Priscila Blanton RN Service: (none) Author Type: (none) Type: Progress Notes Filed: 08/01/2017 10:34 AM Note Text: patient had inr completed at [facility] patients inr is 3.8 (patients inr ranges is 2.0-3.0) patient is currently taking 10mg Tues and 7.5mg all other days patients last dose change was on 11/15/16 due to a low level of 1.8 (dose at that time was 7.5mg daily) patient has had a change in medication and patient is taking Keflex since 07/28/17 and no change in diet FYI - patient is seeing SLURRY BLENDER Podlogar for continued rash on right lower leg Advised patient that they would be contacted regarding medication dose and when to follow up after information is reviewed by provider. After provider review please contact the patient with information and schedule follow up appointment with coumadin clinic. FYI - patient has been scheduled for a 1 week follow up inr on 08/08/17 PROGRESS Observed: 08/01/2017 Status: COMPLETED Source: [place] 10:03 AM [facility] REPOSITORY HNO ID: [id number] Author: Karen Denise Podlogar Service: (none) Author Type: Nurse Practitioner Type: Progress Notes Filed: 08/02/2017 9:02 AM Note Text: 08/01/2017 Patient presents with: Hives: red and blistered on rt dyer , started 2 weeks ago , whole leg up to knee hurts and darnell SUBJECTIVE: This is a 52 year old that is here today for Above Complaints. Seen in on 07/28 for rash with blisters. Low grade fever of 100 at that time. Was treated with Cephalexin 500 mg three times daily for 10 days for which she is on 4 of. She was also given mupirocin 2% topical to apply. On July 30 she thought the area looked worse so she went to ER. She was told there it was jock itch and given diflucan for it- she is on day 3 of 5 of this treatment. Today she returns to office because area does not seem to be improving and it is itching and burning. She has applied any other medications to this area. She denies changes in medications, soap, lotions, or detergents prior to rash appearing. She did travel to [place] but says small area was there prior to traveling. Denies other contacts with rashes, fever, chill, weight loss, abdominal pain, nausea, vomiting, diarrhea, joint pain, Myalgia,or purulent drainage. Positive for hx of DVT for which she is taking coumadin for with a therapeutic INR and a past knee replacement to the right leg. 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 - Diffuse cystic mastopathy - Diverticulosis of colon (without mention of hemorrhage) Diverticulosis - DVT of leg (deep venous thrombosis) (HCC) Right leg - Hypertension - Irritable bowel syndrome - Localized osteoarthrosis not specified whether primary or secondary, other specified sites RT KNEE - Migraine, unspecified, with intractable migraine, so stated, without mention of status migrainosus Migraine - Obesity, unspecified - Osteoarthritis of right knee - Other and unspecified disc disorder of unspecified region Intervertebral disc disorders - Other disorders of bladder - Personal history of colonic polyps 01/21/2015 - PMH - PAST MEDICAL HISTORY OF 1990 Pulmonary Embolism ALLERGIES Augmentin [Amoxicillin-Pot Clavulanate]; Bextra [Valdecoxib]; Celebrex [Celecoxib]; Erythromycin; Latex; Lovenox [Enoxaparin Sodium]; Vioxx [Rofecoxib]; Voltaren [Diclofenac Sodium] MEDICATIONS Current Outpatient Prescriptions: cephALEXin (KEFLEX) 500 mg capsule Take 1 capsule by mouth three times daily for 10 days. atenolol (TENORMIN) 25 mg tablet TAKE 1 TABLET TWICE DAILY tiZANidine (ZANAFLEX) 4 mg tablet Take 1 tablet by mouth every 6 hours as needed. acetaminophen-codeine (TYLENOL-COD #4) 300-60 mg per tablet Take 1 tablet by mouth twice daily as needed for Pain for up to 15 days. gabapentin (NEURONTIN) 100 mg capsule Take 1 capsule by mouth three times daily. warfarin (COUMADIN) 5 mg tablet Take 10 mg Tues and 7.5 mg all other days or as directed. amLODIPine (NORVASC) 10 mg tablet Take 1 tablet by mouth once daily. furosemide (LASIX) 20 mg tablet Take 1 tablet by mouth once daily. NEEDED lisinopril (ZESTRIL, PRINIVIL) 20 mg tablet Take 0.5 tablets by mouth once daily. nitroglycerin sublingual (NITROQUICK) 0.4 mg SL tablet Dissolve 1 tablet under the tongue as needed. FOR CHEST PAIN. IF NO RELIEF CALL 911 No current facility-administered medications for this visit. Medications and allergies reviewed by this provider. SOCIAL HISTORY Social History Marital status: Spouse name: Years of education: Number of children: Social History Main Topics Smoking status: Former Smoker Packs/day: 0.50 Years: 2.00 Types: Cigarettes Quit date: 05/01/1979 Smokeless status: Never Used Alcohol use: Yes Comment: socially Drug use: No Sexual activity: Yes Partners with: Male REVIEW OF SYSTEMS All other reviewed and negative other than HPI. OBJECTIVE: BP 130/78 (BP Site: Left Arm, BP Position: Sitting, BP Cuff Size: Large Adult) Pulse 68 Temp 37 ?C (98.6 ?F) Resp 18 Wt (!) 174.2 kg (384 lb 1.9 oz) BMI 60.16 kg/m2. Vital signs reviewed by this provider. APPEARANCE Well appearing, alert, in no acute distress, well-hydrated, well nourished., Morbidly obese HEART RRR with normal S1 and S2, no murmurs, no gallops, no JVD appreciated LUNG clear to auscultation EXTREMITIES Normal pulses bilaterally. SKIN: erythematous papular confluent area to right lower dyer. No drainage observed. No fluctuance of area. No heat touch or lymphatic streaking. ASSESSMENT/PLAN: 1. Dermatitis - ICD9: 692.9, ICD10: L30.9 (primary diagnosis) - ? Cellulitis vs dermatitis. Does not appear fungal. - finish antibiotic since only on day 4- and hx of knee replacement - no red flag exam findings - red flag symptoms discussed specifically any lymphatic streaking, verbalizes understanding -- Anti itch therapy of triamcinolone 0.5 % twice daily for 7 days recommended prn - discussed skin care of rash - follow up if symptoms persist or worsen. - consider derm if not improving 2. Screening for breast cancer - ICD9: V76.10, ICD10: Z12.31 - Encouraged monthly BSE - Follow up for annual exam in one year. - [facility] Karen Fairbanks APRN.CNP Prescription instructions reviewed with patient as applicable. Patient advised if symptoms do not improve or if symptoms worsen sooner, to contact their primary care physician. Potential red flag symptoms discussed with the patient. Reviewed appropriate action plan to take if red flag symptoms occur. Patient agreeable to treatment plan. CNOV Observed: 08/01/2017 Status: COMPLETED Source: [place] 10:00 AM [facility] REPOSITORY Office Visit (FAMPWS) BECKY MARTINEZ ([id number]) 1965 F Date Time Provider Department 08/01/17 10:00 AM KAREN FAIRBANKS ([facility] [employer] [facility] During your visit today, we recorded the following information about you: Temperature Pulse Respiration Blood pressure 98.6 degrees 68/minute 18/minute 130/78 Weight 174.2 kg Karen Fairbanks APRN.CNP 08/02/2017 9:02 AM Signed 08/01/2017 Patient presents with: Hives: red and blistered on rt dyer , started 2 weeks ago , whole leg up to knee hurts and darnell SUBJECTIVE: This is a 52 year old that is here today for Above Complaints. Seen in on 07/28 for rash with blisters. Low grade fever of 100 at that time. Was treated with Cephalexin 500 mg three times daily for 10 days for which she is on . She was also given mupirocin 2% topical to apply. On July 30 she thought the area looked worse so she went to ER. She was told there it was ANDquot;jock itchANDquot; and given diflucan for it- she is on day 3 of 5 of this treatment. Today she returns to office because area does not seem to be improving and it is itching and burning. She has applied any other medications to this area. She denies changes in medications, soap, lotions, or detergents prior to rash appearing. She did travel to [place] but says small area was there prior to traveling. Denies other contacts with rashes, fever, chill, weight loss, abdominal pain, nausea, vomiting, diarrhea, joint pain, Myalgia,or purulent drainage. Positive for hx of DVT for which she is taking coumadin for with a therapeutic INR and a past knee replacement to the right leg. 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 - Diffuse cystic mastopathy - Diverticulosis of colon (without mention of hemorrhage) Diverticulosis - DVT of leg (deep venous thrombosis) (HCC) Right leg - Hypertension - Irritable bowel syndrome - Localized osteoarthrosis not specified whether primary or secondary, other specified sites RT KNEE - Migraine, unspecified, with intractable migraine, so stated, without mention of status migrainosus Migraine - Obesity, unspecified - Osteoarthritis of right knee - Other and unspecified disc disorder of unspecified region Intervertebral disc disorders - Other disorders of bladder - Personal history of colonic polyps 01/21/2015 - PMH - PAST MEDICAL HISTORY OF 1990 Pulmonary Embolism ALLERGIES Augmentin [Amoxicillin-Pot Clavulanate]; Bextra [Valdecoxib]; Celebrex [Celecoxib]; Erythromycin; Latex; Lovenox [Enoxaparin Sodium]; Vioxx [Rofecoxib]; Voltaren [Diclofenac Sodium] MEDICATIONS Current Outpatient Prescriptions: cephALEXin (KEFLEX) 500 mg capsule Take 1 capsule by mouth three times daily for 10 days. atenolol (TENORMIN) 25 mg tablet TAKE 1 TABLET TWICE DAILY tiZANidine (ZANAFLEX) 4 mg tablet Take 1 tablet by mouth every 6 hours as needed. acetaminophen-codeine (TYLENOL-COD #4) 300-60 mg per tablet Take 1 tablet by mouth twice daily as needed for Pain for up to 15 days. gabapentin (NEURONTIN) 100 mg capsule Take 1 capsule by mouth three times daily. warfarin (COUMADIN) 5 mg tablet Take 10 mg Tues and 7.5 mg all other days or as directed. amLODIPine (NORVASC) 10 mg tablet Take 1 tablet by mouth once daily. furosemide (LASIX) 20 mg tablet Take 1 tablet by mouth once daily. NEEDED lisinopril (ZESTRIL, PRINIVIL) 20 mg tablet Take 0.5 tablets by mouth once daily. nitroglycerin sublingual (NITROQUICK) 0.4 mg SL tablet Dissolve 1 tablet under the tongue as needed. FOR CHEST PAIN. IF NO RELIEF CALL 911 No current facility-administered medications for this visit. Medications and allergies reviewed by this provider. SOCIAL HISTORY Social History Marital status: Spouse name: Years of education: Number of children: Social History Main Topics Smoking status: Former Smoker Packs/day: 0.50 Years: 2.00 Types: Cigarettes Quit date: 05/01/1979 Smokeless status: Never Used Alcohol use: Yes Comment: socially Drug use: No Sexual activity: Yes Partners with: Male REVIEW OF SYSTEMS All other reviewed and negative other than HPI. OBJECTIVE: BP 130/78 (BP Site: Left Arm, BP Position: Sitting, BP Cuff Size: Large Adult) Pulse 68 Temp 37 ?C (98.6 ?F) Resp 18 Wt (!) 174.2 kg (384 lb 1.9 oz) BMI 60.16 kg/m2. Vital signs reviewed by this provider. APPEARANCE Well appearing, alert, in no acute distress, well- hydrated, well nourished., Morbidly obese HEART RRR with normal S1 and S2, no murmurs, no gallops, no JVD appreciated LUNG clear to auscultation EXTREMITIES Normal pulses bilaterally. SKIN: erythematous papular confluent area to right lower dyer. No drainage observed. No fluctuance of area. No heat touch or lymphatic streaking. ASSESSMENT/PLAN: 1. Dermatitis - ICD9: 692.9, ICD10: L30.9 (primary diagnosis) - ? Cellulitis vs dermatitis. Does not appear fungal. - finish antibiotic since only on day 4- and hx of knee replacement - no red flag exam findings - red flag symptoms discussed specifically any lymphatic streaking, verbalizes understanding -- Anti itch therapy of triamcinolone 0.5 % twice daily for 7 days recommended prn - discussed skin care of rash - follow up if symptoms persist or worsen. - consider derm if not improving 2. Screening for breast cancer - ICD9: V76.10, ICD10: Z12.31 - Encouraged monthly BSE - Follow up for annual exam in one year. - [facility] SCREENING Karen Podlogar, COMPUTER SUPPORT SPECIALIST INSTRUCTOR.DOCUMENT REVIEW ATTORNEY Prescription instructions reviewed with patient as applicable. Patient advised if symptoms do not improve or if symptoms worsen sooner, to contact their primary care physician. Potential red flag symptoms discussed with the patient. Reviewed appropriate action plan to take if red flag symptoms occur. Patient agreeable to treatment plan. Referring Provider: SELF [[id number]] Allergies As of Date: 08/01/2017 Noted Allergy Reaction AUGMENTIN (AMOXICILLIN-POT CLAVUL*12/31/2004 14 - Other: See Comments Comments: Adverse effect, developed yeast infection BEXTRA (VALDECOXIB) 12/31/2004 7 - Swelling Comments: Ankle swelling CELEBREX (CELECOXIB) 12/31/2004 7 - Swelling Comments: ankle swelling ERYTHROMYCIN 12/31/2004 2 - Rash LATEX 12/31/2004 LOVENOX (ENOXAPARIN SODIUM) 06/23/2011 2 - Rash VIOXX (ROFECOXIB) 12/31/2004 7 - Swelling Comments: ankle swelling VOLTAREN (DICLOFENAC SODIUM) 12/31/2004 7 - Swelling Comments: ankle swelling Date Reviewed: 08/01/2017 Reviewed by: Priscila Blanton RN - Fully Assessed Reason for Visit: Hives [56] Cmt: red and blistered on rt dyer , started 2 weeks ago , whole leg up to knee hurts and darnell Primary Visit Diagnosis:Dermatitis [L30.9] Other Visit Diagnosis:Screening for breast cancer [Z12.31] Order(s):[facility] SCREENING [[id number]] Order #: [id number] FUTURE triamcinolone acetonide (KENALOG) 0.5 % creamApply 1 application to affected area twice daily. For rash/itching. Apply sparingly. Avoid face/skin fold.Disp: 15 gRfl: 0 INR (POC) [[id number]] Order #: [id number]. #:[id number] Prescriptions as of 08/01/2017 Sig: CEPHALEXIN 500 MG CAPSULE Take 1 capsule by mouth three* ATENOLOL 25 MG TABLET TAKE 1 TABLET TWICE DAILY TIZANIDINE 4 MG TABLET Take 1 tablet by mouth every * ACETAMINOPHEN 300 MG-CODEINE * Take 1 tablet by mouth twice * GABAPENTIN 100 MG CAPSULE Take 1 capsule by mouth three* WARFARIN 5 MG TABLET Take 10 mg Tues and 7.5 mg al* AMLODIPINE 10 MG TABLET Take 1 tablet by mouth once d* FUROSEMIDE 20 MG TABLET Take 1 tablet by mouth once d* LISINOPRIL 20 MG TABLET Take 0.5 tablets by mouth onc* NITROGLYCERIN 0.4 MG SUBLINGU* Dissolve 1 tablet under the t* TRIAMCINOLONE ACETONIDE 0.5 %* Apply 1 application to affect* Problem List As Of Date 08/01/2017 Noted Resolved Allergic Rhinitis, Cause Unspecified [J30.9] INVALID FOR* Diverticulosis of Colon (without Mention of Hem* More... Irritable Bowel Syndrome [K58.9] Migraine NOS/Intractable [G43.919] More... 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 Other and Unspecified Disc Disorder of Unspecif* More... 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 Restless Legs Syndrome (RLS) [G25.81] INVALID FOR* Obstructive Sleep Apnea (Adult) (Pediatric) [G4*INVALID FOR* Essential Hypertension, Benign [I10] INVALID FOR* Other Abnormal Glucose [R73.09] INVALID FOR* Dysmetabolic Syndrome X [E88.81] INVALID FOR* Palpitations [R00.2] INVALID FOR*03/09/2012 More... Routine Gynecological Examination [Z01.419] INVALID FOR* Class: Chronic More... Obesity, Morbid [E66.01] INVALID FOR* Abdominal pain, left lower quadrant [R10.32] INVALID FOR*03/09/2012 Diarrhea [R19.7] INVALID FOR* Knee pain [M25.569] INVALID FOR* More... 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 For rash/itching. Apply sparingly. Avoid face/skin fold. Follow-up and Disposition History Recorded Encounter Status:Closed by KAREN FAIRBANKS CNP on 08/02/17 EMERGENCY DEPARTMENT Observed: 07/30/2017 Status: F Source: [place] SUMMARY 5:13 PM [facility] REPOSITORY [facility] Medical Records Department [address] [place] [address] Emergency Department Summary 07/30/17 0851 MR#: [id number] Acct: [id number] Name: BECKY MARTINEZ Rep #: [id number] : 1965 52 From: Za Gupta MD PCP: Milka Colindres MD Status: DEP ER - ER Visit Summary Date of Service: 07/30/17 Chief Complaint: Cellulitis right leg History of Present Illness: The patient is a 52 F who felt that she may have had a bite to her right lower dyer. She has small red milka. She then developed a slightly red raised ring that itches. She was seen at urgent care on the and started on Keflex. Patient believes she had a fever that day, but none since. Patient states the erythema seems to be brighter today and it started moving more medially. Physical Examination: Vital signs are significant for blood pressure of 161/90, otherwise normal. Patient is an obese female sitting upright in bed. She is in no acute distress. Heart is regular rate and rhythm. Lung sounds are clear. Abdomen is soft and nontender. Right lower extremity examination reveals an erythematous circular lesion in the right lower leg with raised skin. There are small areas of red raised lesions just medial to this. There is no significant warmth. Test Results: CBC and chemistry studies are unremarkable. INR is 2.6. Emergency Department Course and Treatment: I discussed with the patient that her rash is consistent with a fungal infection. I took pictures of typical cellulitis versus fungal infection in and showed her the difference. We placed nystatin ointment on her leg and she complained that it seemed to burn and irritate the area. This was washed off. Patient is given a prescription for nystatin powder and p.o. Diflucan. Because she has restarted her Keflex she is to continue the full course of this. At this time there is no sign of secondary bacterial infection. Treatment Plan: [] Disposition: Discharge Impression: Tinea corporis This note was generated with Satiety dictation software. It may contain incorrect words, spelling, and punctuation that were not noted in review of the chart prior to signing ED Disposition - Plan for ED Patient: Disposition: Home or Assisted Living Chief Complaint: Cellulitis Instructions: ED Tinea Cruris General Prescriptions: Fluconazole [Diflucan] 400 mg PO DAILY #5 days Nystatin Powder [Mycostatin Powder] 1 applic TOPICAL TID #1 bottle Referrals: Milka Colindres MD [Primary Care Provider] - 1-2 Weeks What to do if you have Problems For any increased pain, shortness of breath, bleeding, nausea or vomiting, chest pain, or any unexpected problems, contact your Primary Care Provider. Call [facility] ([phone]) or report to the closest Emergency Room. Call 911 if necessary. 07/30/17 4423 <Electronically signed by Za Gupta MD> Date Za Gupta MD Cosigner Signature (If Indicated): Date CC: Milka Colindres MD DISCHARGE INSTRUCTION Observed: 07/30/2017 Status: F Source: [place] 10:54 AM [facility] REPOSITORY [facility] Medical Records Department [address] [place] [address] Discharge Instruction 07/30/17 1052 MR#: [id number] Acct: [id number] Name: BECKY MARTINEZ Rep #: [id number] : 1965 52 From: Za Gupta MD PCP: Milka Colindres MD Status: REG ER ED Disposition - Plan for ED Patient: Disposition: Home or Assisted Living Chief Complaint: Cellulitis Instructions: ED Tinea Cruris General Prescriptions: Fluconazole [Diflucan] 400 mg PO DAILY #5 days Nystatin Powder [Mycostatin Powder] 1 applic TOPICAL TID #1 bottle Referrals: Milka Colindres MD [Primary Care Provider] - 1-2 Weeks What to do if you have Problems For any increased pain, shortness of breath, bleeding, nausea or vomiting, chest pain, or any unexpected problems, contact your Primary Care Provider. Call [facility] ([phone]) or report to the closest Emergency Room. Call 911 if necessary. 07/30/17 1054 <Electronically signed by Za Gupta MD> Date Za Gupta MD Cosigner Signature (If Indicated): Date CC: Milka Colindres MD PROTHROMBIN TIME W/INR Collected: 07/30/2017 Status: F Source: [place] 10:00 AM [facility] REPOSITORY Order Comment: REDRAW. PREVIOUS SPECIMEN REJECTED DUE TO QNS. 07/30/17 0956 Claudia George. TYPE CODE TESTS RESULT OUT OF RANGE REFERENCE UNITS LAB L300.4150 11.7-14.9 SECONDS High PROTIME 28.1 LAB L300.4200 Normal INR 2.6 Performed By: #### L300.3900 #### [facility] [address] [place], [address] CBC W/DIFF, AUTOMATED Collected: 07/30/2017 Status: F Source: [place] 9:05 AM [facility] REPOSITORY TYPE CODE TESTS RESULT OUT OF RANGE REFERENCE UNITS LAB L100.1000 4.4-11.0 K/mm3 Normal WBC 6.2 LAB L100.1200 4.2-5.4 M/mm3 Normal RBC 5.00 LAB L100.1300 12.0-15.0 g/dl Normal HGB 14.0 LAB L100.1400 37-47 % Normal HCT 42.4 LAB L100.1500 81-99 fL Normal MCV 84.8 LAB L100.1600 27.0-32.0 pg Normal MCH 28.0 LAB L100.1700 32-36 g/gl Normal MCHC 33.0 LAB L100.1810 11.6-14.6 % Normal RDW CV 13.0 LAB L100.1820 35.1-43.9 fl Normal RDW SD 39.8 LAB L100.1900 150-450 K/mm3 Normal PLT 292 LAB L100.2000 6.2-12.0 fl Normal MPV 9.7 LAB L100.2100 47-70 % Normal NEUT% 62.9 LAB L100.2200 19-41 % Normal LY% 28.2 LAB L100.2300 0-10 % Normal MONO% 6.0 LAB L100.2400 0-5 % Normal EO% 1.8 LAB L100.2500 0-1 % Normal BASO% 0.8 LAB L100.2550 0.0-0.9 % Normal IM GRAN % 0.300 Result Comment: IG% - Immature Granulocytes (promyelocytes, myelocytes and metamyelocytes) > 1% indicates that a LEFT SHIFT is Present. LAB L100.2620 2.0-7.7 X10 3/uL Normal Absolute Neut 3.9 LAB L100.2720 0.83-4.51 X10 3/ul Normal Absolute Lymph 1.74 Performed By: #### L100.0100 #### [facility] [address] [facility]. [place], [place], [id number] BASIC METABOLIC Collected: 07/30/2017 Status: F Source: [place] PROFILE (BMP) 9:05 AM [facility] REPOSITORY TYPE CODE TESTS RESULT OUT OF RANGE REFERENCE UNITS LAB L501.0100 74-106 mg/dL High GLU 124 Result Comment: Fasting Glucose result from 100 to 125 mg/dL suggests IMPAIRED HOMEOSTASIS per A.D.A. criteria. Please note revised GLUCOSE reference range effective 2017. LAB L501.1000 7-18 mg/dL Normal BUN 15 LAB L501.1100 0.55-1.02 mg/dL Normal CREAT,SERUM 0.74 Result Comment: The validity of the calculated GFR AND GFRAA in patients over 70 years has not been determined. Clinical correlation is essential. LAB L501.1110 >60 mL/min Normal EST GFR 87 Result Comment: Non- GFR Calc LAB L501.1115 >60 mL/min Normal EST GFR - AA 105 Result Comment: GFR Calc LAB L501.1255 ml/min Normal Estimated CRCL 82.31 LAB L501.1300 10-20 RATIO High BUN/CRE 20.3 LAB L501.2200 8.5-10 mg/dL Normal .1 CA 8.6 LAB L501.5300 136-14 mmol/L Normal 5 NA 143 LAB L501.5600 3.5-5. mmol/L Normal 1 K 3.8 LAB L501.5900 98-107 mmol/L High CL 109 LAB L501.6100 21.0-3 mmol/L Normal 2.0 CO2 27.0 LAB L501.6200 5-15 Normal GAP 7 Performed By: #### L500.2500 #### [facility] [address] [place], [address] PROGRESS Observed: 07/28/2017 Status: COMPLETED Source: [place] 6:50 PM [facility] REPOSITORY HNO ID: [id number] Author: Lizette (Wheel Alignment Technician) [facility] Service: (none) Author Type: Nurse Practitioner Type: Progress Notes Filed: 07/28/2017 7:15 PM Note Text: Subjective HPI Becky Martinez is a 52 year old female who presents with a [place] on her right lower leg, she noticed it last week and tnought it may be spider bite. Today she developed a rash with blisters distal to the [place]. She states the lower leg is burning and itching. She visited her nephew in [facility] last week and noticed the redness after that it. It is a [address] and she states she stopped several times and walked around. She has a history of DVT in her lower leg and is taking Coumadin. She had a knee replacement in same leg. She did have some swelling of her right foot yesterday but it has improved. She denies pain or swelling in the calf. She has not taken anything for the pain. Review of Systems Constitutional: Positive for fever. Negative for chills and malaise/fatigue. Gastrointestinal: Negative. Negative for abdominal pain, diarrhea, nausea and vomiting. Musculoskeletal: Negative. Negative for falls, joint pain and myalgias. Skin: Positive for itching and rash. Neurological: Negative. Negative for dizziness. 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 - Diffuse cystic mastopathy - Diverticulosis of colon (without mention of hemorrhage) Diverticulosis - DVT of leg (deep venous thrombosis) (HCC) Right leg - Hypertension - Irritable bowel syndrome - Localized osteoarthrosis not specified whether primary or secondary, other specified sites RT KNEE - Migraine, unspecified, with intractable migraine, so stated, without mention of status migrainosus Migraine - Obesity, unspecified - Osteoarthritis of right knee - Other and unspecified disc disorder of unspecified region Intervertebral disc disorders - Other disorders of bladder - Personal history of colonic polyps 01/21/2015 - PMH - PAST MEDICAL HISTORY OF 1989 Pulmonary Embolism PAST SURGICAL HISTORY Procedure Laterality Date - APPENDECTOMY - COLONOSCOP W/ OR W/O [facility] SPEC 01/21/2015 Repeat 2024 - I/D PERIANAL ABSCESS, SUPERFICIAL 5-2-12 - KNEE SCOPE,DIAGNOSTIC 2007 Right knee - LIGATE FALLOPIAN TUBE - ME ANESTH,DX ARTHROSCOPIC PROC KNEE JOINT 1994 LT KNEE - ME ANESTH,DX ARTHROSCOPIC PROC KNEE JOINT 1994 RT KNEE - REDUCTION OF LARGE BREAST Breast reduction - REMOVAL GALLBLADDER Cholecystectomy - REPAIR ANAL FISTULA W/NICHELLE 12/09/11 - REPAIR UMBILICAL OUMOU,5+Y/O,REDUC Hernia repair, umbilical >5yr, x2 with mesh - TOTAL ABDOM HYSTERECTOMY Hysterectomy, ARIELLE - TOTAL KNEE REPLACEMENT Right 06/27/2011 - TREAT ECTOPIC PREG,NON REMVAL Ectopic ALLERGIES Augmentin [Amoxicillin-Pot Clavulanate]; Bextra [Valdecoxib]; Celebrex [Celecoxib]; Erythromycin; Latex; Lovenox [Enoxaparin Sodium]; Vioxx [Rofecoxib]; Voltaren [Diclofenac Sodium] MEDICATIONS atenolol (TENORMIN) 25 mg tablet TAKE 1 TABLET TWICE DAILY tiZANidine (ZANAFLEX) 4 mg tablet Take 1 tablet by mouth every 6 hours as needed. gabapentin (NEURONTIN) 100 mg capsule Take 1 capsule by mouth three times daily. warfarin (COUMADIN) 5 mg tablet Take 10 mg Tues and 7.5 mg all other days or as directed. amLODIPine (NORVASC) 10 mg tablet Take 1 tablet by mouth once daily. furosemide (LASIX) 20 mg tablet Take 1 tablet by mouth once daily. NEEDED lisinopril (ZESTRIL, PRINIVIL) 20 mg tablet Take 0.5 tablets by mouth once daily. nitroglycerin sublingual (NITROQUICK) 0.4 mg SL tablet Dissolve 1 tablet under the tongue as needed. FOR CHEST PAIN. IF NO RELIEF CALL 911 mupirocin (BACTROBAN) 2 % ointment Apply 1 application to affected area three times daily. Location: right lower leg cephALEXin (KEFLEX) 500 mg capsule Take 1 capsule by mouth three times daily for 10 days. acetaminophen-codeine (TYLENOL-COD #4) 300-60 mg per tablet Take 1 tablet by mouth twice daily as needed for Pain for up to 15 days. FAMILY HISTORY Problem Relation Age of Onset - Heart Father [place] age 50, sudden - Breast Cancer Mother - Coronary Artery Disease Brother Quadruple by-pass age 50 - Coronary Artery Disease Sister [place] late 30's - Stroke Sister - Other [OTHER] Brother pulmonary embolism - Other [OTHER] Sister pulmonary embolism - Heart Sister heart attack age 50, stent - Diabetes Sister older sister; obese Social History Substance Use Topics - Smoking status: Former Smoker Packs/day: 0.50 Years: 2.00 Types: Cigarettes Quit date: 05/01/1979 - Smokeless tobacco: Never Used - Alcohol use Yes Comment: socially Objective Physical Exam Constitutional: She is well-developed, well-nourished, and in no distress. Cardiovascular: Normal rate. Pulmonary/Chest: Effort normal. Musculoskeletal: Right lower leg: She exhibits no tenderness, no bony tenderness and no swelling. Legs: Neurological: She is alert. Skin: Skin is warm and dry. Nursing note and vitals reviewed. ASSESSMENT/PLAN: 1. Cellulitis of skin - ICD9: 682.9, ICD10: L03.90 - Begin treatment with Cephalaxin (Keflex) - No lymphangetic streaking, this was defined for patient to watch for and to seek medical care immediately if appears - Area of cellulitis defined with pen, seek further attention if this area continues to enlarge - MARAPIROCIN 2 % TOPICAL OINTMENT - CEPHALEXIN 500 MG CAPSULE - Advised patient to seek care in ER if leg develops worsening pain, swelling, or if fever increases to 101 degrees. Lizette De La Cruz APRN.JOHN CNOV Observed: 07/28/2017 Status: COMPLETED Source: [place] 6:30 PM [facility] REPOSITORY Office Visit ([facility]) BECKY MARTINEZ ([id number]) 1965 F Date Time Provider Department 07/28/17 6:30 PM LIZETTE DE LA CRUZ ([facility]) [facility] During your visit today, we recorded the following information about you: Temperature Pulse Respiration Blood pressure 100 degrees 69/minute 16/minute 180/93 Weight 174.2 kg Lizette De La Cruz APRN.CNP 07/28/2017 7:15 PM Signed Subjective HPI Becky Soheila Eppssamantha is a 52 year old female who presents with a [place] on her right lower leg, she noticed it last week and tnought it may be spider bite. Today she developed a rash with blisters distal to the [place]. She states the lower leg is burning and itching. She visited her nephew in [facility] last week and noticed the redness after that it. It is a [address] and she states she stopped several times and walked around. She has a history of DVT in her lower leg and is taking Coumadin. She had a knee replacement in same leg. She did have some swelling of her right foot yesterday but it has improved. She denies pain or swelling in the calf. She has not taken anything for the pain. Review of Systems Constitutional: Positive for fever. Negative for chills and malaise/fatigue. Gastrointestinal: Negative. Negative for abdominal pain, diarrhea, nausea and vomiting. Musculoskeletal: Negative. Negative for falls, joint pain and myalgias. Skin: Positive for itching and rash. Neurological: Negative. Negative for dizziness. 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 - Diffuse cystic mastopathy - Diverticulosis of colon (without mention of hemorrhage) Diverticulosis - DVT of leg (deep venous thrombosis) (HCC) Right leg - Hypertension - Irritable bowel syndrome - Localized osteoarthrosis not specified whether primary or secondary, other specified sites RT KNEE - Migraine, unspecified, with intractable migraine, so stated, without mention of status migrainosus Migraine - Obesity, unspecified - Osteoarthritis of right knee - Other and unspecified disc disorder of unspecified region Intervertebral disc disorders - Other disorders of bladder - Personal history of colonic polyps 01/21/2015 - PMH - PAST MEDICAL HISTORY OF 1989 Pulmonary Embolism PAST SURGICAL HISTORY Procedure Laterality Date - APPENDECTOMY - COLONOSCOP W/ OR W/O [facility] SPEC 01/21/2015 Repeat 2024 - I/D PERIANAL ABSCESS, SUPERFICIAL 5-2-12 - KNEE SCOPE,DIAGNOSTIC 2007 Right knee - LIGATE FALLOPIAN TUBE - ME ANESTH,DX ARTHROSCOPIC PROC KNEE JOINT 1994 LT KNEE - ME ANESTH,DX ARTHROSCOPIC PROC KNEE JOINT 1994 RT KNEE - REDUCTION OF LARGE BREAST Breast reduction - REMOVAL GALLBLADDER Cholecystectomy - REPAIR ANAL FISTULA W/NICHELLE 12/09/11 - REPAIR UMBILICAL OUMOU,5+Y/O,REDUC Hernia repair, umbilical ANDgt;5yr, x2 with mesh - TOTAL ABDOM HYSTERECTOMY Hysterectomy, ARIELLE - TOTAL KNEE REPLACEMENT Right 06/27/2011 - TREAT ECTOPIC PREG,NON REMVAL Ectopic ALLERGIES Augmentin [Amoxicillin-Pot Clavulanate]; Bextra [Valdecoxib]; Celebrex [Celecoxib]; Erythromycin; Latex; Lovenox [Enoxaparin Sodium]; Vioxx [Rofecoxib]; Voltaren [Diclofenac Sodium] MEDICATIONS atenolol (TENORMIN) 25 mg tablet TAKE 1 TABLET TWICE DAILY tiZANidine (ZANAFLEX) 4 mg tablet Take 1 tablet by mouth every 6 hours as needed. gabapentin (NEURONTIN) 100 mg capsule Take 1 capsule by mouth three times daily. warfarin (COUMADIN) 5 mg tablet Take 10 mg Tues and 7.5 mg all other days or as directed. amLODIPine (NORVASC) 10 mg tablet Take 1 tablet by mouth once daily. furosemide (LASIX) 20 mg tablet Take 1 tablet by mouth once daily. NEEDED lisinopril (ZESTRIL, PRINIVIL) 20 mg tablet Take 0.5 tablets by mouth once daily. nitroglycerin sublingual (NITROQUICK) 0.4 mg SL tablet Dissolve 1 tablet under the tongue as needed. FOR CHEST PAIN. IF NO RELIEF CALL 911 mupirocin (BACTROBAN) 2 % ointment Apply 1 application to affected area three times daily. Location: right lower leg cephALEXin (KEFLEX) 500 mg capsule Take 1 capsule by mouth three times daily for 10 days. acetaminophen-codeine (TYLENOL-COD #4) 300-60 mg per tablet Take 1 tablet by mouth twice daily as needed for Pain for up to 15 days. FAMILY HISTORY Problem Relation Age of Onset - Heart Father [place] age 50, sudden - Breast Cancer Mother - Coronary Artery Disease Brother Quadruple by-pass age 50 - Coronary Artery Disease Sister [place] late 30's - Stroke Sister - Other [OTHER] Brother pulmonary embolism - Other [OTHER] Sister pulmonary embolism - Heart Sister heart attack age 50, stent - Diabetes Sister older sister; obese Social History Substance Use Topics - Smoking status: Former Smoker Packs/day: 0.50 Years: 2.00 Types: Cigarettes Quit date: 05/01/1979 - Smokeless tobacco: Never Used - Alcohol use Yes Comment: socially Objective Physical Exam Constitutional: She is well-developed, well-nourished, and in no distress. Cardiovascular: Normal rate. Pulmonary/Chest: Effort normal. Musculoskeletal: Right lower leg: She exhibits no tenderness, no bony tenderness and no swelling. Legs: Neurological: She is alert. Skin: Skin is warm and dry. Nursing note and vitals reviewed. ASSESSMENT/PLAN: 1. Cellulitis of skin - ICD9: 682.9, ICD10: L03.90 - Begin treatment with Cephalaxin (Keflex) - No lymphangetic streaking, this was defined for patient to watch for and to seek medical care immediately if appears - Area of cellulitis defined with pen, seek further attention if this area continues to enlarge - MUPIROCIN 2 % TOPICAL OINTMENT - CEPHALEXIN 500 MG CAPSULE - Advised patient to seek care in ER if leg develops worsening pain, swelling, or if fever increases to 101 degrees. TENNILLE Benavides APRN.CNP 07/28/2017 7:00 PM Signed [facility] PATIENT INFO SKIN INFECTION OVERVIEW Cellulitis is an infection of the skin and soft tissue of the skin. The infection is usually caused by bacteria that normally live on the skin, such as staphylococci (ANDquot;StaphANDquot;) or streptococci (ANDquot;StrepANDquot;). The infection develops when there is a break in the skin, such as a wound or injury, which may be minor. This allows bacteria to enter the skin and grow, causing infection and swelling. Most cases of cellulitis are mild and heal completely with antibiotic treatment. However, the infection can become severe and cause a bodywide infection if left untreated. It is important to seek medical care promptly if you could have a skin infection. SKIN INFECTION RISK FACTORS Certain conditions increase the risk of developing cellulitis. These include: ? Recent injury to the skin (a wound, abrasion, cut, recent shaving, or injection drug use) ? Swelling of the skin due to radiation therapy ? Current skin infection, such as athlete's foot or impetigo ? Accumulation of fluid (edema) due to poor circulation, heart failure, liver disease, or past surgery to remove lymph nodes ? Being overweight ? Chronic skin conditions, such as eczema or psoriasis However, cellulitis can also develop in people who have no known risk factors. SKIN INFECTION SYMPTOMS Cellulitis ? The most common symptom of cellulitis is pain or tenderness. Other cellulitis symptoms can include swelling, warmth, and redness in a distinct area of skin. These symptoms usually worsen and the redness may expand over the course of a few days. The skin is usually smooth and shiny rather than raised or bumpy. Fever and chills are not common. The most common areas of the body for cellulitis to develop include the legs and the arms; it can also develop around the eye, on the abdominal wall, in the mouth, and around the anus. Other skin infections ? Other types of skin infections include abscesses, furuncles (ANDquot;boilsANDquot;), and carbuncles. These usually cause a collection of pus under the skin. Skin that is raised, reddened, tender, and pus-filled may be caused by a skin infection known as methicillin-resistant Staphylococcus aureus (MRSA). DO I NEED TO BE EXAMINED? There are many types and causes of skin infections, and it is important to know the most likely cause of the infection before beginning treatment. Using the wrong treatment could allow the infection to worsen. To ensure that the correct treatment is used, it is important to be evaluated by a healthcare provider. SKIN INFECTION TREATMENT Cellulitis treatment includes antibiotics as well as treatment of any underlying condition that led to the skin infection. Elevate the area ? Elevating the arm or leg above the level of the heart can help to reduce swelling and speed healing. Keep the area clean and dry ? It is important to keep the infected area clean and dry. You can shower or bathe normally, and pat the area dry with a clean towel. You can use a bandage or gauze to protect the skin, if needed. Do not use any antibiotic ointments or creams. Antibiotics ? Most people with cellulitis are treated with an antibiotic that is taken by mouth for one to two weeks. The ANDquot;bestANDquot; antibiotic depends upon your situation. If the infection is severe, you may need to be hospitalized and treated with antibiotics given into a vein (IV). It is important to take the antibiotic exactly as recommended and to finish the entire course of treatment. Skipping doses or ending treatment early could potentially allow the bacteria to become resistant and require longer treatment. Time to heal ? The swelling, warmth, and redness should begin to improve within one to three days after starting antibiotics, although these symptoms can persist for two weeks. If the reddened area becomes larger, more swollen, or more tender, call your healthcare provider. He or she may want to reexamine you to determine if further testing or an alternate antibiotic are needed. SKIN INFECTION PROGNOSIS In most cases, you will recover completely from an episode of cellulitis without any complications. If you have skin infection risk factors talk to your healthcare provider to determine if there are steps you can take to minimize the risk of infections in the future. GO to ER if: Increasing pain or swelling or redness, your temperature exceeds 101 degrees or you develop nausea, vomiting, or chills. Referring Provider: SELF [200] Allergies As of Date: 07/28/2017 Noted Allergy Reaction AUGMENTIN (AMOXICILLIN-POT CLAVUL*12/31/2004 14 - Other: See Comments Comments: Adverse effect, developed yeast infection BEXTRA (VALDECOXIB) 12/31/2004 7 - Swelling Comments: Ankle swelling CELEBREX (CELECOXIB) 12/31/2004 7 - Swelling Comments: ankle swelling ERYTHROMYCIN 12/31/2004 2 - Rash LATEX 12/31/2004 LOVENOX (ENOXAPARIN SODIUM) 06/23/2011 2 - Rash VIOXX (ROFECOXIB) 12/31/2004 7 - Swelling Comments: ankle swelling VOLTAREN (DICLOFENAC SODIUM) 12/31/2004 7 - Swelling Comments: ankle swelling Date Reviewed: 07/28/2017 Reviewed by: Lizette ([facility]) Naomie - Fully Assessed Reason for Visit: Possible cellulitis on leg [Other] Primary Visit Diagnosis:Cellulitis of skin [L03.90] Order(s):mupirocin (BACTROBAN) 2 % ointmentApply 1 application to affected area three times daily. Location: right lower legDisp: 15 gRfl: 0 cephALEXin (KEFLEX) 500 mg capsuleTake 1 capsule by mouth three times daily for 10 days.Disp: 30 capsuleRfl: 0 Prescriptions as of 07/28/2017 Sig: ATENOLOL 25 MG TABLET TAKE 1 TABLET TWICE DAILY TIZANIDINE 4 MG TABLET Take 1 tablet by mouth every * GABAPENTIN 100 MG CAPSULE Take 1 capsule by mouth three* WARFARIN 5 MG TABLET Take 10 mg Tues and 7.5 mg al* AMLODIPINE 10 MG TABLET Take 1 tablet by mouth once d* FUROSEMIDE 20 MG TABLET Take 1 tablet by mouth once d* LISINOPRIL 20 MG TABLET Take 0.5 tablets by mouth onc* NITROGLYCERIN 0.4 MG SUBLINGU* Dissolve 1 tablet under the t* MUPIROCIN 2 % TOPICAL OINTMENT Apply 1 application to affect* CEPHALEXIN 500 MG CAPSULE Take 1 capsule by mouth three* ACETAMINOPHEN 300 MG-CODEINE * Take 1 tablet by mouth twice * Problem List As Of Date 07/28/2017 Noted Resolved Allergic Rhinitis, Cause Unspecified [J30.9] INVALID FOR* Diverticulosis of Colon (without Mention of Hem* More... Irritable Bowel Syndrome [K58.9] Migraine NOS/Intractable [G43.919] More... 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 Other and Unspecified Disc Disorder of Unspecif* More... 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 Restless Legs Syndrome (RLS) [G25.81] INVALID FOR* Obstructive Sleep Apnea (Adult) (Pediatric) [G4*INVALID FOR* Essential Hypertension, Benign [I10] INVALID FOR* Other Abnormal Glucose [R73.09] INVALID FOR* Dysmetabolic Syndrome X [E88.81] INVALID FOR* Palpitations [R00.2] INVALID FOR*03/09/2012 More... Routine Gynecological Examination [Z01.419] INVALID FOR* Class: Chronic More... Obesity, Morbid [E66.01] INVALID FOR* Abdominal pain, left lower quadrant [R10.32] INVALID FOR*03/09/2012 Diarrhea [R19.7] INVALID FOR* Knee pain [M25.569] INVALID FOR* More... 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 The infection is usually caused by bacteria that normally live on the skin, such as staphylococci (Staph) or streptococci (Strep). The infection develops when there is a break in the skin, such as a wound or injury, which may be minor. This allows bacteria to enter the skin and grow, causing infection and swelling. Most cases of cellulitis are mild and heal completely with antibiotic treatment. However, the infection can become severe and cause a bodywide infection if left untreated. It is important to seek medical care promptly if you could have a skin infection. SKIN INFECTION RISK FACTORS Certain conditions increase the risk of developing cellulitis. These include: ? Recent injury to the skin (a wound, abrasion, cut, recent shaving, or injection drug use) ? Swelling of the skin due to radiation therapy ? Current skin infection, such as athlete's foot or impetigo ? Accumulation of fluid (edema) due to poor circulation, heart failure, liver disease, or past surgery to remove lymph nodes ? Being overweight ? Chronic skin conditions, such as eczema or psoriasis However, cellulitis can also develop in people who have no known risk factors. SKIN INFECTION SYMPTOMS Cellulitis ? The most common symptom of cellulitis is pain or tenderness. Other cellulitis symptoms can include swelling, warmth, and redness in a distinct area of skin. These symptoms usually worsen and the redness may expand over the course of a few days. The skin is usually smooth and shiny rather than raised or bumpy. Fever and chills are not common. The most common areas of the body for cellulitis to develop include the legs and the arms; it can also develop around the eye, on the abdominal wall, in the mouth, and around the anus. Other skin infections ? Other types of skin infections include abscesses, furuncles (boils), and carbuncles. These usually cause a collection of pus under the skin. Skin that is raised, reddened, tender, and pus-filled may be caused by a skin infection known as methicillin-resistant Staphylococcus aureus (MRSA). DO I NEED TO BE EXAMINED? There are many types and causes of skin infections, and it is important to know the most likely cause of the infection before beginning treatment. Using the wrong treatment could allow the infection to worsen. To ensure that the correct treatment is used, it is important to be evaluated by a healthcare provider. SKIN INFECTION TREATMENT Cellulitis treatment includes antibiotics as well as treatment of any underlying condition that led to the skin infection. Elevate the area ? Elevating the arm or leg above the level of the heart can help to reduce swelling and speed healing. Keep the area clean and dry ? It is important to keep the infected area clean and dry. You can shower or bathe normally, and pat the area dry with a clean towel. You can use a bandage or gauze to protect the skin, if needed. Do not use any antibiotic ointments or creams. Antibiotics ? Most people with cellulitis are treated with an antibiotic that is taken by mouth for one to two weeks. The best antibiotic depends upon your situation. If the infection is severe, you may need to be hospitalized and treated with antibiotics given into a vein (IV). It is important to take the antibiotic exactly as recommended and to finish the entire course of treatment. Skipping doses or ending treatment early could potentially allow the bacteria to become resistant and require longer treatment. Time to heal ? The swelling, warmth, and redness should begin to improve within one to three days after starting antibiotics, although these symptoms can persist for two weeks. If the reddened area becomes larger, more swollen, or more tender, call your healthcare provider. He or she may want to reexamine you to determine if further testing or an alternate antibiotic are needed. SKIN INFECTION PROGNOSIS In most cases, you will recover completely from an episode of cellulitis without any complications. If you have skin infection risk factors talk to your healthcare provider to determine if there are steps you can take to minimize the risk of infections in the future. GO to ER if: Increasing pain or swelling or redness, your temperature exceeds 101 degrees or you develop nausea, vomiting, or chills. Prescriptions ordered this encounter Disp Refills Start End MUPIROCIN 2 % TOPICAL OINTMENT 15 g 0 07/28/2017 Route: TOPICAL Sig: Apply 1 application to affected area three times daily. Location: right lower leg CEPHALEXIN 500 MG CAPSULE 30 c* 0 07/28/2017 08/07/2017 Route: ORAL Sig: Take 1 capsule by mouth three times daily for 10 days. Encounter Status:Closed by LIZETTE DE LA CRUZ on 07/28/17 OBSOLETE Observed: 07/11/2017 Status: COMPLETED Source: [place] 12:00 AM [facility] REPOSITORY Refill ([facility]) BECKY MARTINEZ ([id number]) 1965 F Date Time Provider Department 07/11/17 CASEY HUDSON During your visit today, we recorded the following information about you: Casey Hudson MD 07/11/2017 8:37 AM Signed The following approved medication requests have been transmitted electronically. Signed Prescriptions Disp Refills atenolol (TENORMIN) 25 mg tablet 180 tablet 3 Sig: TAKE 1 TABLET TWICE DAILY JAISON: No Authorizing Provider: CASEY HUDSON MD Adam Gilmor, RN, RN 07/11/2017 9:00 AM Signed escript confirmed Allergies As of Date: 07/11/2017 Noted Allergy Reaction AUGMENTIN (AMOXICILLIN-POT CLAVUL*12/31/2004 14 - Other: See Comments Comments: Adverse effect, developed yeast infection BEXTRA (VALDECOXIB) 12/31/2004 7 - Swelling Comments: Ankle swelling CELEBREX (CELECOXIB) 12/31/2004 7 - Swelling Comments: ankle swelling ERYTHROMYCIN 12/31/2004 2 - Rash LATEX 12/31/2004 LOVENOX (ENOXAPARIN SODIUM) 06/23/2011 2 - Rash VIOXX (ROFECOXIB) 12/31/2004 7 - Swelling Comments: ankle swelling VOLTAREN (DICLOFENAC SODIUM) 12/31/2004 7 - Swelling Comments: ankle swelling Date Reviewed: 07/04/2017 Reviewed by: Priscila Blanton RN - Fully Assessed Reason for Visit: Refill Request [94] Order(s):atenolol (TENORMIN) 25 mg tabletTAKE 1 TABLET TWICE DAILYDisp: 180 tabletRfl: 3 Prescriptions as of 07/11/2017 Sig: ATENOLOL 25 MG TABLET TAKE 1 TABLET TWICE DAILY TIZANIDINE 4 MG TABLET Take 1 tablet by mouth every * ACETAMINOPHEN 300 MG-CODEINE * Take 1 tablet by mouth twice * GABAPENTIN 100 MG CAPSULE Take 1 capsule by mouth three* WARFARIN 5 MG TABLET Take 10 mg Tues and 7.5 mg al* AMLODIPINE 10 MG TABLET Take 1 tablet by mouth once d* FUROSEMIDE 20 MG TABLET Take 1 tablet by mouth once d* LISINOPRIL 20 MG TABLET Take 0.5 tablets by mouth onc* NITROGLYCERIN 0.4 MG SUBLINGU* Dissolve 1 tablet under the t* Problem List As Of Date 07/11/2017 Noted Resolved Allergic Rhinitis, Cause Unspecified [J30.9] INVALID FOR* Diverticulosis of Colon (without Mention of Hem* More... Irritable Bowel Syndrome [K58.9] Migraine NOS/Intractable [G43.919] More... 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 Other and Unspecified Disc Disorder of Unspecif* More... 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 Restless Legs Syndrome (RLS) [G25.81] INVALID FOR* Obstructive Sleep Apnea (Adult) (Pediatric) [G4*INVALID FOR* Essential Hypertension, Benign [I10] INVALID FOR* Other Abnormal Glucose [R73.09] INVALID FOR* Dysmetabolic Syndrome X [E88.81] INVALID FOR* Palpitations [R00.2] INVALID FOR*03/09/2012 More... Routine Gynecological Examination [Z01.419] INVALID FOR* Class: Chronic More... Obesity, Morbid [E66.01] INVALID FOR* Abdominal pain, left lower quadrant [R10.32] INVALID FOR*03/09/2012 Diarrhea [R19.7] INVALID FOR* Knee pain [M25.569] INVALID FOR* More... 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 Encounter Status:Closed by DRE GALLARDO on 07/11/17 PROGRESS Observed: 07/04/2017 Status: COMPLETED Source: [place] 10:48 AM [facility] [employer] [facility] REPOSITORY HNO ID: [id number] Author: Milka Colindres Service: (none) Author Type: Physician Type: Progress Notes Filed: 07/04/2017 11:46 AM Note Text: I agree with the advice given; stay same and recheck in 4 weeks Milka Colindres MD PROGRESS Observed: 07/04/2017 Status: COMPLETED Source: [place] 9:47 AM [facility] REPOSITORY HNO ID: [id number] Author: Priscila Blanton RN Service: (none) Author Type: (none) Type: Progress Notes Filed: 07/04/2017 9:48 AM Note Text: patient had inr completed at [facility] patients inr is 2.1 (patients inr range is 2.0-3.0) patient is currently taking 10mg Tues and 7.5mg all other days patients last dose change was on 11/15/16 due to a low level of 1.8 (dose at that time was 7.5mg daily) patient has had no changes in medication and no missed doses and no change in diet Advised patient to continue on the same dose(s) and that they would only be contacted regarding dosage and follow up instructions after review with provider, if a change is needed. Written instructions given and patient verbalized understanding. Presently scheduled in 4 weeks (08/01/17) for follow up INR. PROGRESS Observed: 06/06/2017 Status: COMPLETED Source: [place] 11:50 AM [facility] REPOSITORY HNO ID: [id number] Author: Milka Colindres Service: (none) Author Type: Physician Type: Progress Notes Filed: 06/06/2017 2:18 PM Note Text: I agree with the advice given; stay on 10mg Tues and 7.5mg all other days; recheck in 4 weeks as planned iMlka Colindres MD PROGRESS Observed: 06/06/2017 Status: COMPLETED Source: [place] 11:22 AM [facility] REPOSITORY HNO ID: [id number] Author: Priscila Blanton RN Service: (none) Author Type: (none) Type: Progress Notes Filed: 06/06/2017 11:23 AM Note Text: patient had inr completed at [facility] patients inr is 2.2 (patients inr range is 2.0-3.0) patient is currently taking 10mg Tues and 7.5mg all other days patients last dose change was on 11/15/16 due to a low level of 1.8 (dose at that time was 7.5mg daily) patient has had no changes in medication and no change in diet Advised patient to continue on the same dose(s) and that they would only be contacted regarding dosage and follow up instructions after review with provider, if a change is needed. Written instructions given and patient verbalized understanding. Presently scheduled in 4 weeks (07/04/17) for follow up INR. ORTHOPEDIC VISIT Observed: 06/01/2017 Status: F Source: [place] REPORT 4:01 PM [facility] REPOSITORY [facility] Orthopaedics AND Sports Medicine [address] [place] [address] OFFICE VISIT Date of Service: 06/01/17 MR#: [id number] Acct: [id number] Name: BECKY MARTINEZ Rep #: [id number] : 1965 Provider: Lisette Banks DO Age/Sex: 52/F [place] [facility] [place] [place] Status: Signed Intake Intake Visit Reasons: bilateral thumb Is patient in pain?: Yes Allergies enoxaparin sodium [From Lovenox] Allergy (Verified 06/01/17 14:21) Rash erythromycin lactobionate [From Erythrocin] Allergy (Verified 06/01/17 14:21) Rash Latex, Natural Rubber Allergy (Verified 06/01/17 14:21) Rash rofecoxib [From Vioxx] Allergy (Verified 06/01/17 14:21) Swelling valdecoxib [From Bextra] Allergy (Verified 06/01/17 14:21) Rash amoxicillin trihydrate [From Augmentin] Adverse Reaction (Verified 06/01/17 14:21) Other potassium clavulanate [From Augmentin] Adverse Reaction (Verified 06/01/17 14:21) Other Medications Lisinopril [Zestril] 10 mg PO DAILY 08/07/13 [History Confirmed 01/25/17] Warfarin [Coumadin] 7.5 mg PO DAILY 08/07/13 [History Confirmed 01/25/17] Cyclobenzaprine [Flexeril] 10 mg PO TID PRN PRN 03/04/14 [History Confirmed 01/25/17] Acetaminophen with Codeine [Tylenol with Codeine #4 Tablet] 1 ea PO Q4H PRN PRN 02/02/16 [History Confirmed 01/25/17] Atenolol [Tenormin (beta yusuf)] 25 mg PO BID 02/02/16 [History Confirmed 01/25/17] Gabapentin [Neurontin] 100 mg PO TIDCM 02/02/16 [History Confirmed 01/25/17] Furosemide [Lasix] 20 mg PO DAILY PRN PRN 02/05/16 [History Confirmed 01/25/17] Amlodipine [Norvasc] 2.5 mg PO DAILY 07/25/16 [History Confirmed 01/25/17] Phenazopyridine HCl [Pyridium] 200 mg PO BID PRN PRN #10 tab 01/25/17 [Rx] Smz/Tmp Ds [Bactrim Ds] 1 tab PO BID #14 tab 01/25/17 [Rx] PFSH Medical History s/p elbow (Inactive) Surgical History H/O: hysterectomy (Inactive) S/P arthroscopy of knee (Inactive) S/P hernia repair (Inactive) S/P knee replacement (Inactive) Family History Sister Heart disease Brother Heart disease Father Heart disease Mother Breast cancer Social History Smoking Status: Never smoker HPI bilateral thumb: Chief Complaint: bilateral thumb Details: BECKY MARTINEZ is a 52 year old F here today for bilateral thumb pain, right greater than left. She has pain over the base of her thumb. Patient has frequent clicking and grinding. Patient has right hand swelling. She notes that her pain is starting to affect her ADLs. Patient had injections on 01/26/17 which were helpful for about 3 months. Patient had numbness over her dorsal hand on her right hand. ROS Const Reports system reviewed and no additional complaints, except as docu Eyes Reports system reviewed and no additional complaints, except as docu ENT Reports system reviewed and no additional complaints, except as docu Card Reports system reviewed and no additional complaints, except as docu Resp Reports system reviewed and no additional complaints, except as docu GI Reports system reviewed and no additional complaints, except as docu Reports system reviewed and no additional complaints, except as docu Musc Reports joint pain, Reports joint swelling, Reports stiffness Skin/Breast Reports system reviewed and no additional complaints, except as docu Neuro Yes system reviewed and no additional complaints, except as docu Psych Reports system reviewed and no additional complaints, except as docu Endo Reports system reviewed and no additional complaints, except as docu Ortho Exam Right Wrist/Hand Skin/Wound: Yes CDI Contralateral Normal: No Motor: EPL: 5, FDP-2: 5, 1st Dorsal Interosseous: 5, APB: 5 Sensation: Radial: I, Ulnar: I, Median: I WRIST: cmc pain Left Wrist/Hand Skin/Wound: Yes CDI Contralateral Normal: No Motor: EPL: 5, FDP-2: 5, 1st Dorsal Interosseous: 5, APB: 5 Sensation: Radial: I, Ulnar: I, Median: I WRIST: cmc pain Office Procedures Ortho Injections Injections Yes CMC Bilateral Details: Obtained consent for injection. Under sterile conditions, injected the patients bilateral cmc jts with 0.5cc kenalog and 1cc bupivacaine. The patient tolerated the injection well without any noted complication. Patient should call our office if redness develops, pain worsens or if they have any concerns. Office Meds Kenalog Performing Provider: Lisette Banks DO Administered by: Lisette Banks DO on 06/01/17 15:51 Dose Route Admin Location Lot Number Expiration DateNDC Checkroom Chief 0.5 mg Intra-Articularbilat cmc [id number] 07/30/18 8587-6966-16 [email or web address] Assessment AND Plan 1. Primary osteoarthritis of both first carpometacarpal joints M18.0 Plan Injections helped for over a year, injections today, instructed to ice as needed. Answered questions about surgery, cmc arthroplasty, to repair and the restrictions post op. Follow up as needed or sooner if pain, swelling, numbness or associated symptoms, or concerns develop. All questions answered. Patient in agreement of plan. Orders Orders: Medications Discontinued: Kenalog (triamcinolone acetonide) Di0.5 mg (0.05 mL) Intra- Articular ONCE N Kike Hair scontinued Reason: Office Medication hS as been Documented as given Coding Level of Care Code No Charge Diagnoses Primary osteoarthritis of both first carpometacarpal joints M18.0 Osteoarthritis type: primary Additional Codes rn clinical review.cmc () Comment bilateral injxns cmc 06/01/17 1601 <Electronically signed by Lisette Banks DO> Date Lisette Banks DO Cosigner Signature: Date (if applicable) CC: ALLERGIES ALLERGIES DATE TYPE / CODE NAME / CODE REACTION SEVERITY SOURCE 05/16/2018 Drug amoxicillin Other Unknown [place] Allergy/416 trihydrate/[id number] [facility] 901869([facility] 07[facility] ED CT) Repository 05/16/2018 Drug erythromycin Rash Unknown [place] Allergy/416 lactobionate/A51601 [facility] 194081([facility] 2759[facility] ED CT) Repository 05/16/2018 Drug potassium Other Unknown [place] Allergy/416 clavulanate/E287065 [facility] 827349([facility] 809[facility] ED CT) Repository 05/16/2018 Drug enoxaparin Rash Unknown [place] Allergy/416 sodium/O918325678([facility] 803832[facility] ED [facility]) Repository 05/16/2018 Drug Latex, Natural Rash Unknown [place] Allergy/416 Rubber/I026980539([facility] 039667[facility] ED CT) Repository 05/16/2018 Drug rofecoxib/[id number] Swelling Unknown [place] Allergy/416 7(RXNORM) [facility] 645381([facility] ED CT) Repository 05/16/2018 Drug valdecoxib/U3443473 Rash Unknown [place] Allergy/416 03(RXNORM) [facility] 401817([facility] ED CT) Repository 06/23/2011 DRUG ENOXAPARIN SODIUM RASH [facility] INGREDI/419 [place] 244473([facility] ED CT) 12/31/2004 DRUG/609929 AMOXICILLIN-POT OTHER: SEE C [facility] 003(SNOMED CLAVULANATE [place]) Repository 12/31/2004 DRUG VALDECOXIB SWELLING [facility] INGREDI/419 [place] 470802(SNOM Repository ED CT) 12/31/2004 DRUG CELECOXIB SWELLING [facility] INGREDI/419 [place] 705766(SNOM Repository ED CT) 12/31/2004 DRUG/001163 ERYTHROMYCIN RASH [facility] 003(SNOMED [place] [facility]) Repository 12/31/2004 Environ/420 LATEX [facility] 516659(SNOM [place] CT) Repository 12/31/2004 DRUG ROFECOXIB SWELLING [facility] INGREDI/419 [place] 730938(SNOM Repository ED CT) 12/31/2004 DRUG DICLOFENAC SODIUM SWELLING [facility] INGREDI/419 [place] 649168(SNOM Repository ED CT) NG/44852373 AMOXICILLIN-POT [facility] 6(SNOMED CLAVULANATE [facility]) Repository NG/31425844 VALDECOXIB [facility] 6(SNOMED [facility]) Repository NG/20144681 CELECOXIB [facility] 6(SNOMED [facility] CT) Repository NG/08101094 ERYTHROMYCIN [facility] 6(SNOMED [facility] CT) Repository NG/96492658 LATEX [facility] 6(SNOMED [facility] CT) Repository NG/39910028 ENOXAPARIN SODIUM [facility] 6(SNOMED [facility] CT) Repository NG/83144577 ROFECOXIB [facility] 6(SNOMED [facility]) Repository NG/74521270 DICLOFENAC SODIUM [facility] 6(SNOMED [facility] CT) Repository ENCOUNTERS ENCOUNTERS ADMIT/DISCHARGE ACCOUNT NUMBER ADMITTING ENCOUNTER LOCATION SOURCE CLASS 05/16/2018 [id number] [facility] ding:HPRAD Repository 05/16/2018/05/16/19 [id number] Ambulatory BMSBuilding: [address] Repository 05/15/2018/05/16/19 [id number] Ambulatory [address] [place] Repository 05/11/2018/05/14/19 [id number] Ambulatory [address] Repository 05/08/2018/05/09/19 [id number] Ambulatory [address] Repository 05/08/2018 [id number] Ambulatory [facility] ding:OT Repository 05/02/2018 [id number] Ambulatory [facility] ding:MRI Repository 04/29/2018/04/30/20 [id number] Ambulatory [address] Repository 04/12/2018/04/12/20 [id number] Ambulatory BMSBuilding: [place] 18 BMS.[facility] Repository 04/09/2018 [id number] Ambulatory [facility] ding:US Repository 04/03/2018/04/03/20 [id number] Ambulatory BMSBuilding: [place] 18 BMS.[facility] Repository 03/13/2018/03/13/20 [id number] Ambulatory [address] Repository 03/09/2018/03/09/20 [id number] Ambulatory [address] Repository 03/06/2018 [id number] Ambulatory [facility] ding:HPRAD Repository 03/06/2018/03/06/20 [id number] Ambulatory BMSBuilding: [place] 18 BMS.[facility] Repository 02/21/2018/02/22/20 [id number] Ambulatory [address] ding:SDCRoom Repository : AC07 02/21/2018/02/22/20 [id number] Ambulatory BMSBuilding: [place] 18 BMS.CF.[facility] Repository 02/09/2018/02/13/20 [id number] Ambulatory [address] Repository 01/20/2018/01/23/20 [id number] Ambulatory [address] Repository 01/19/2018/01/20/20 [id number] Ambulatory BMSBuilding: [place] 18 BMS.[facility] Repository 01/19/2018/01/20/20 [id number] Ambulatory [address] [place] Repository 12/15/2017/12/16/19 [id number] Ambulatory [address] Repository 12/07/2017/12/08/19 [id number] Ambulatory BMSBuilding: [place] 18 BMS.[facility] Repository 11/29/2017/11/30/19 [id number] Ambulatory [address] [place] Repository 11/17/2017/11/18/19 [id number] Ambulatory [address] [place] Repository 11/17/2017/11/18/19 [id number] Ambulatory [facility] [place] Repository 11/16/2017/11/18/19 [id number] Ambulatory [facility] [place] Repository 11/02/2017/11/04/19 [id number] Ambulatory [facility] [place] Repository 11/01/2017/11/03/19 [id number] Ambulatory [facility] [place] Repository 10/26/2017/10/28/19 [id number] Ambulatory [facility] [place] Repository 10/23/2017/10/24/19 [id number] Ambulatory [facility] [place] Repository 10/23/2017/10/25/19 [id number] Ambulatory [facility] [place] Repository 10/23/2017 [id number] Ambulatory [facility] MEDICAL Repository CENTERBuildi ng:CAGWS 10/13/2017/10/14/19 [id number] Ambulatory [address] [place] Repository 10/03/2017/10/05/19 [id number] Ambulatory [address] [place] Repository 09/26/2017/09/28/19 [id number] Ambulatory [address] [place] Repository 09/12/2017/09/13/19 [id number] Ambulatory [address] [place] Repository 08/31/2017/09/01/19 [id number] Ambulatory BMSBuilding: [place] Repository 08/28/2017/08/30/19 [id number] Ambulatory [address] [place] Repository 08/15/2017/08/17/19 [id number] Ambulatory [address] [place] Repository 08/08/2017/08/10/19 [id number] Ambulatory [address] [place] Repository 08/01/2017/08/04/19 [id number] Ambulatory [facility] [place] Repository 08/01/2017/08/03/19 [id number] Ambulatory [facility] [place] Repository 07/30/2017/07/31/19 [id number] Emergency [place] ding:ED Repository 07/28/2017/07/29/19 [id number] Ambulatory [address] [place] Repository 07/04/2017/07/05/19 [id number] Ambulatory [address] [place] Repository 06/06/2017/06/07/19 [id number] Ambulatory [address] Repository 06/01/2017/06/01/19 [id number] Ambulatory BMSBuilding: [place] 18 BMS.[facility] Repository PAYERS PAYERS ENCOUNTER GUARANTOR PAYER SUBSCRIBER SOURCE 05/16/2018 CHAVA Campos Primary BECKY J [place] [id number] Insurance:HUMANA RIDENBAUGHDOB: Community [place]olicy [id number] Number: Repository [address]Bwm: (330 [id number] [phone] (HP) Date:7034-15-09HS [address] [address]DZ: 05/16/2018 Secondary NOT GIVENUNK [place] Insurance:SELF PAY [facility] Number: Effective Repository Date:2018-05-16 05/16/2018 CHAVA Campos Primary BECKY J [place] [id number] Insurance:HUMANA RIDENBAUGHDOB: Community [place] PPOPolicy [id number] Number: Repository [address]Qjr: (330 [id number] [phone] () Date:7990-11-23DX[address] [address]TG: 05/16/2018 Secondary NOT GIVENUNK [place] Insurance:SELF PAY [facility] Number: Effective Repository Date:2018-05-15 05/08/2018 CHAVA A Primary BECKY J [place] [id number] Insurance:HUMANA RIDENBAUGHDOB: Community [place] PPOPolicy [id number] Number: Repository 75[address]Sok: 330 [id number] [phone]) Date:9212-98-85YG [address] [address]DU: 05/08/2018 Secondary NOT GIVENUNK [place] Insurance:SELF PAY [facility] Number: Effective Repository Date:2018-03-06 05/02/2018 CHAVA A Primary BECKY J [place] [id number] Insurance:HUMANA RIDENBAUGHDOB: Community [place] PPOPolicy [id number] [place] [place] Number: Repository [address]Vhw: (330 [id number] [phone] (HP) Date:8958-16-64AO [address] [address]OK: 05/02/2018 Secondary NOT GIVENUNK [place] Insurance:[facility]LF [facility] Number: Effective Repository Date:2018-04-25 04/12/2018 CHAVA A Primary BECKY J [place] [id number] Insurance:HUMANA RIDENBAUGHDOB: Community [place] [employer] PPOPolicy [id number] [place] Number: Repository [address]Fhx: 330 [id number] [phone] (HP) Date:6151-33-03CA [address]4601WP: 04/12/2018 Secondary NOT GIVENUNK [place] Insurance:SELF PAY [facility] Number: Effective Repository Date:2018-04-11 04/09/2018 CHAVA A Primary BECKY J [place] [id number] Insurance:HUMANA RIDENBAUGHDOB: Community [place] [employer] PPOPolicy [id number] [place] Number: Repository [address]Tin: (330 [id number] [phone] (HP) Date:1168-92-36RA [address] [place] [address]UB: 04/09/2018 Secondary NOT GIVENUNK [place] Insurance:SELF PAY [facility] Number: Effective Repository Date:2018-04-06 04/03/2018 CHAVA A Primary BECKY J [place] [id number] Insurance:HUMANA RIDENBAUGHDOB: Community [place] [employer] PPOPolicy [id number] [facility] [place] Number: Repository [address]Mbe: (330 [id number] [phone] (HP) Date:2188-15-58EU [address] [address]WB: 04/03/2018 Secondary NOT GIVENUNK [place] Insurance:SELF PAY [facility] Number: Effective Repository Date:2018-04-03 03/06/2018 CHAVA A Primary BECKY J [place] [id number] Insurance:HUMANA RIDENBAUGHDOB: Community [place] [employer] PPOPolicy [id number] Number: Repository [address]Tad: (330 [id number] [phone] (HP) Date:5542-55-82UN [address] [address]ST: 03/06/2018 Secondary NOT GIVENUNK [place] Insurance:SELF PAY [facility] Number: Effective Repository Date:2018-03-06 03/06/2018 CHAVA Campos Primary BECKY J [place] [id number] Insurance:HUMANA RIDENBAUGHDOB: Community [place] [employer] PPOPolicy [id number], [place] Number: Repository [address]Gjx: (330 [id number] [phone] (HP) Date:2526-76-30UI [address] [address]OG: 03/06/2018 Secondary NOT GIVENUNK [place] Insurance:SELF PAY [facility] Number: Effective Repository Date:2018-03-06 02/21/2018 CHAVA A Primary BECKY J [place] [id number] Insurance:HUMANA RIDENBAUGHDOB: Community [place] [employer] PPOPolicy [id number] Number: Repository [address]Glx: 330 [id number] [phone] (HP) Date:0233-78-01CZ [address] [address]RO: 02/21/2018 Secondary NOT GIVENUNK [place] Insurance:SELF PAY [facility] Number: Effective Repository Date:2018 02/21/2018 CHAVA A Primary BECKY J [place] [id number] Insurance:HUMANA RIDENBAUGHDOB: Community [place] [employer] PPOPolicy [id number], [place] Number: Repository [address]Iyy: (330) [id number] [phone] (HP) Date:6807-45-24US[address] [address]OV: 02/21/2018 Secondary NOT GIVENUNK [place] Insurance:SELF PAY [facility] Number: Effective Repository Date:2018-02-21 01/19/2018 Chava A Primary BECKY J [place] [id number] Insurance:HUMANA RIDENBAUGHDOB: Community [place] PPOPolicy [id number], [place] Number: Repository [address]Okn: (330) [id number] [phone] (HP) Date:7975-21-[address] [address]PV: 01/19/2018 Secondary NOT GIVENUNK [place] Insurance:SELF PAY [facility] Number: Effective Repository Date:2018-01-19 12/07/2017 Chava A Primary BECKY J [place] [id number] Insurance:HUMANA RIDENBAUGHDOB: Community [place] PPOPolicy [id number], [place] Number: Repository [address]Bwg: (330) [id number] [phone] (HP) Date:2256-65-73EV [address] [address]VK: 12/07/2017 Secondary NOT GIVENUNK [place] Insurance:SELF PAY [facility] Number: Effective Repository Date:2017-12-07 10/23/2017 BECKY J Primary BECKY J [facility] RIDENBAUGHDOB: Insurance:HUMANA RIDENBAUGHDOB: Health System MEDICARE PPOPolicy [id number] Health Institute Number: [place] [id number]: (330) Date: [phone] (HP) 08/31/2017 Chava A Primary BECKY J [place] [id number] Insurance:HUMANA RIDENBAUGHDOB: Community [place] PPOPolicy [id number], [place] Number: Repository [address]Nzg: (330) [id number] [phone] (HP) Date:6145-30-00FE [address] [address]HH: 08/31/2017 Secondary NOT GIVENUNK [place] Insurance:[facility]LF [facility]Y [facility] Number: Effective Repository Date:2017-08-31 07/30/2017 Chava A Primary BECKY J [place] [id number] Insurance:HUMANA RIDENBAUGHDOB: Community [place] MED[place]ARE PPOPolicy [id number], [place] Number: Repository [address]Dhe: (330 [id number] [phone] () Date:0501-03-94[place] [address]WP: 07/30/2017 Secondary NOT GIVENUNK [place] Insurance:SELF PAY [facility] Number: Effective Repository Date:2017-07-30 06/01/2017 Chava Campos Primary BECKY J [place] [id number] Insurance:HUMANA RIDENBAUGHDOB: Community [place] PPOPolicy [id number], [place] Number: Repository [address]Zdr: (330 [id number] [phone] (HP) Date:4160-61-64IZ [address] [address]SI: 06/01/2017 Secondary NOT GIVENUNK [place] Insurance:SELF PAY [facility] Number: Effective Repository Date:2017-05-29
== END ==
PROVIDERS: Family Provider Family Medicine; PCP Family Medicine; Referring Provider Physician Assistant; Visit Provider Physician Assistant
DX: M79.644 Pain in right finger(s) (principal)
CPT/HCPCS: 73130

== ENCOUNTER 2018-07-04 11:00 | Outpatient (RCR) | payer MEDICARE, SELFPAY ==
--- NOTE | 2018-03-06 11:36 | HP.OTEVAL_ITS ---
Patient's Visit Information BECKY MARTINEZ is a 53 year old F, referred to Occupational Therapy by Lisette Banks DO, with a diagnosis of CMC arthoplasty. Date of Evaluation: 03/06/18 Occupational Therapist: Mary Dennis - Subjective Subjective: Arrived from [facility] walk-over post removal of cast. She is 2 weeks s/p CMC arthroplasty. Noted increased pain in R thumb. 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 Her main goal for recovery is getting back to PLOF to complete tasks. - Pain Right Hand 3 Pain Intensity Range: 1, 8 - ROM CMC: opposition R 0-12; L WFL MP: R 0-46, L WFL IP: R 0-21, L WFL MP: IF- PF R 0-51, 0-57, 0-44, 0-23; L WFl PIP: IF R 0-56, 0-47, 0-64, 0-67; L WFl ROM Comments: Increased stiffness in all fingers with decreased ability to make full composite fist as on L hand. - Strength Shell Grader: R held, L 50 Lateral Pinch: R held, L 14 Tripod Pinch: R held, L 12 Tip-to-Tip Pinch: R held, L 11 - Edema PIP: R 7.4, L 6.4 cm Other: edema noted throughout finger and thumb; especially over thenar emience - Sensation Sensation Comments: denies numbness/tingling at this time. - In-Hand Manipulation Finger to Palm Translation: Severe - Right, Normal - Left Palm to Finger Translation: Severe - Right, Normal - Left Shift: Moderate - Right, Severe - Right, Normal - Left Rotation: Severe - Right, Normal - Left - DASH-Disabilities of Arm, Shoulder& Hand DASH Sum: 122 - Goals Goal:: Becky to regain 60 % of director of diversity and inclusion as compared to L director of diversity and inclusion to promote increased strength and endurance needed to complete object manipulation for ADl/IAdls by d/c. Goal:: Becky to increased R thumb ROM to within5 degrees of L nonaffected thumb to promote increased ROm needed to complete meaningful activities by time of d/c. Goal:: Becky to have no more than 1/10 pain with repeated movements of R thumb to increased ability to complete ADl/IADLs 4/5 trials 80% of the time by d/c. Goal:: Becky to be mod I to complete edema management program at home to manage edema 4/5 trial s80% of the time to promote increased ROM and strength by d/c. Goal:: Becky to complete daily scar massage to IF dorsum scar and lateral CMC scar to decrease risk of increase scar tissue formation as well as decreased sensitivity 4/5 trial 80% of the time by d/c. Goal:: Becky to be (I) to complete joint protection techniques to B thumbs to promote increased joint integrity during daily tasks 80% of the time by d/c. Goal:: Becky to return to all ADL/IADls including crocheting 4/5 trials 80% of the time to promote increased ROM and strength by time of d/c. - Rehabilitation General Assessment: Arrived as walk over from [facility] on 03/06/18. She is 2 weeks post op R CMC arthroplasty. She has limited ROM, strength, increased edema, and ability to complete resistive ADls/IADLs e.g. lifting pots/pans, clothing fasteners and other general FMC related tasks. OT to address deficits and promote increased ROM and strength at appropriate level to return to PLOF with all ADl/IAdls by d/c. Rehabilitation Potential: Good - Anticipated Interventions Anticipated Interventions: A/AAROM/PROM, Strengthening, Edema Control, Wound Care, Modalities, Orthoses, Joint Protection/Energy Conservation, Ergonomic Education, Dynamic Sitting Balance, Fine Motor Coord/Pérez, ADL Training - Visit Plan Frequency: 2x /Week Duration: 6 Weeks General Plan: OT to work on increased ROM, PRE strengthening, edema management, pain management, and general ability to return to PLOF with R affected thumb by d/c. TEXT: Thank you for the opportunity to evaluate your patient. For Medicare and Medicare HMO plans, please review the plan of care and approve it. It will need to be FAXED BACK to us at [phone] for Medicare purposes. Please let me know if there are questions or concerns regarding this plan of care. Physician Signature: ___Date:
--- NOTE | 2018-06-01 08:52 | HP.OTREVAL ---
Lisette Banks, DO, It has been my pleasure to treat BECKY MARTINEZ over the last 16 visits for CMC arthoplasty. Please see the progress note below for an update on the occupational therapy plan of care! Subjective: pt arrives states she is using her hand a lot more- states swelling continues to be a problem-states IF and thumb tingling with increase edema- pt is concerned with her limited wrist ROM has not improved Objective/Function: right MF 6.7. left 6.2. one CM away from composite fist-. right wrist 45/30. left wrist 60/40. PT continues to struggle with wrist ROM gains- pt would benefit from progressive orthosis to gain furnctional ROM. right beating machine operator 5#. left beating machine operator 35#. Pt continues to demo limited functional beating machine operator strength pt would benefit from cont. skilled therapy services Plan Frequency: 2x /Week Duration: 6 Weeks Visits in this POC: 12 Plan: pt to see for re-eval to determin POC due to limited ROM, edema and limited strength- to do HEP for two weeks and then return. Goals - Goals Goal:: Becky to regain 60 % of beating machine operator as compared to L beating machine operator to promote increased strength and endurance needed to complete object manipulation for ADl/IAdls by d/c. Goal:: Becky to increased R thumb ROM to within5 degrees of L nonaffected thumb to promote increased ROm needed to complete meaningful activities by time of d/c. Goal:: Becky to have no more than 1/10 pain with repeated movements of R thumb to increased ability to complete ADl/IADLs 4/5 trials 80% of the time by d/c. Goal:: Becky to be mod I to complete edema management program at home to manage edema 4/5 trial s80% of the time to promote increased ROM and strength by d/c. Goal:: Becky to complete daily scar massage to IF dorsum scar and lateral CMC scar to decrease risk of increase scar tissue formation as well as decreased sensitivity 4/5 trial 80% of the time by d/c. Goal:: Becky to be (I) to complete joint protection techniques to B thumbs to promote increased joint integrity during daily tasks 80% of the time by d/c. Goal:: Becky to return to all ADL/IADls including crocheting 4/5 trials 80% of the time to promote increased ROM and strength by time of d/c. Anticipated Interventions Anticipated Interventions: A/AAROM/PROM, Strengthening, Edema Control, Wound Care, Modalities, Orthoses, Joint Protection/Energy Conservation, Ergonomic Education, Dynamic Sitting Balance, Fine Motor Coord/Pérez, ADL Training Please do not hesitate to contact me at [phone] by phone or if you have questions or concerns regarding this new plan of care! Sincerely, Priscila Sorenson, OTR/L, CHT
--- NOTE | 2018-07-05 07:41 | OTREVAL_ITS ---
Lisette Banks, DO, It has been my pleasure to treat BECKY MARTINEZ over the last 17 visits for CMC arthoplasty. Please see the progress note below for an update on the occupational therapy plan of care! Subjective: pt states she is doing- ok- she states she cont. to have swelling in her right, with swelling pain increases- pt states her limited wrist flex is bothersome and still is making ADLs difficult to perform. PT states she is going for heart cath on monday and hopes she will find answers to how she is feeling/symptoms of SOB. Objective/Function: Prior to tx right wrist 50/35. following heat and end range stretch from therapist pt demo right wrist ROM of 55/45. left wrist ROM 65/60. pt continues to demo limited right wrist ROM decreasing her ind with ADLs and IADLs. Pt would benefit from static progressive brace to improve end range motion. Plan Frequency: 1-2x /Week Plan: submit for static progressive brace for pt to use while at home to gain incrase in her wrist ROM Goals - Goals Goal:: Becky to regain 60 % of regulatory affairs manager as compared to L regulatory affairs manager to promote increased strength and endurance needed to complete object manipulation for ADl/IAdls by d/c. Goal:: Becky to increased R thumb ROM to within5 degrees of L nonaffected thumb to promote increased ROm needed to complete meaningful activities by time of d/c. Goal:: Becky to have no more than 1/10 pain with repeated movements of R thumb to increased ability to complete ADl/IADLs 4/5 trials 80% of the time by d/c. Goal:: Becky to be mod I to complete edema management program at home to manage edema 4/5 trial s80% of the time to promote increased ROM and strength by d/c. Goal:: Becky to complete daily scar massage to IF dorsum scar and lateral CMC scar to decrease risk of increase scar tissue formation as well as decreased sensitivity 4/5 trial 80% of the time by d/c. Goal:: Becky to be (I) to complete joint protection techniques to B thumbs to promote increased joint integrity during daily tasks 80% of the time by d/c. Goal:: Becky to return to all ADL/IADls including crocheting 4/5 trials 80% of the time to promote increased ROM and strength by time of d/c. Anticipated Interventions Anticipated Interventions: A/AAROM/PROM, Strengthening, Edema Control, Wound Care, Modalities, Orthoses, Joint Protection/Energy Conservation, Ergonomic Education, Dynamic Sitting Balance, Fine Motor Coord/Pérez, ADL Training Please do not hesitate to contact me at [phone] by phone or if you have questions or concerns regarding this new plan of care! Sincerely, Priscila Sorenson, OTR/L, CHT
== END 2018-07-04 19:00 | disposition home or self-care (01) ==
LOC: OT 11:00
PROVIDERS: Family Provider Family Medicine; PCP Family Medicine; Referring Provider Orthopaedic Surgery; Visit Provider Orthopaedic Surgery
DX: Z96.691 Finger-joint replacement of right hand (principal)
CPT/HCPCS: 97035; 97110; 97140; 97166; 97530; 97760

== ENCOUNTER 2018-07-09 08:00 | Day surgery (SDC) | payer MEDICARE, SELFPAY ==
[2018-07-06 11:21] VITALS: BMI 60.9
[2018-07-09 08:16] LABS: Prothrombin Time Fingerstick 16.7 SEC (11.9-14.4)
--- NOTE | 2018-07-09 11:19 | CL.D_ITS ---
Patient Name: MORENA MARTINEZ Study Date: 07/09/2018 Performing: Lalito Kaur MD Ht: 66.92 inches 170 cm : 1965 Wt: 388.01 lbs 176 kg Age: 53 Gender: female BSA: 2.68 PROCEDURE(S) PERFORMED [id number]/COR CLINICAL PROFILE AND INDICATIONS Indications: Suspected CAD Heart Failure: None Stress/Imaging Date: 02/06/2016 CAD Presentations: Symptom unlikely to be ischemic. CONCLUSIONS Normal coronary arteries RECOMMENDATIONS Medical therapy DESCRIPTION OF PROCEDURE The patient arrived to the procedure lab. The risks and benefits of the procedure as well as a full d escription of our services here and current unavailability of surgical backup were fully explained to the patient and/or their significant other prior to the catheterization. The Timeout was completed, verifying the correct patient and procedure. The patient's procedural site was prepped and draped in the usual fashion. Local anesthetic was given subcutaneously to right radial region with Lidocaine 2% . Local anesthetic was given subcutaneously to right groin region with Lidocaine 2%. Local anesthetic was given subcutaneously to right ulnar region with Lidocaine 2%. Using a modified Seldinger techniq ue, arterial access was obtained via the right femoral artery, a 5Fr sheath was inserted. Left Coron giselle Artery selective angiography was performed in multiple views using a 5 Fr. JL4 catheter. Right Co ronary Artery selective angiography was then performed in multiple views using a 5 Fr. 3DRC ([place]) catheter. LV to AO pullback pressures were then recorded.Contrast was injected throug h the sheath and the Right Iliac and Femoral artery were assessed for possible closure device.The art erial sheath was pulled and manual compression applied until hemostasis is achieved. CORONARY ANGIOGRAPHY DOMINANCE: Left Dominant LEFT HEART ASSESSMENT Normal Left Ventricular systolic function LEFT MAIN: Angiographically normal LEFT ANTERIOR DECENDING ARTERY: Angiographically normal CIRCUMFLEX ARTERY: Angiographically normal RIGHT CORONARY ARTERY: Angiographically normal COMPLICATIONS PROCEDURE MEDICATIONS Fentanyl 50 mcg IV Versed 1 mg IV Versed 1 mg IV Fentanyl 25 mcg IV Versed 1 mg IV Fentanyl 25 mcg IV Oxygen: 2 L/min via nasal cannula Baby Aspirin (81mg) 4 Tabs PO @ 07/09/2018 09:46:25 SUMMARY OF HEMODYNAMIC DATA Time AIR REST ECG 08:44:39 AO 151/69 (100) SA 10:57:45 LV 144/6, 20 11:04:22 LV 142/6, 22 11:04:29 LVp 131/4, 15 11:07:27 AOp 138/70 (99) 11:07:32 Signed By Lalito Kaur MD On 07/09/2018 11:19:13 Signed By Lalito Kaur MD On 07/09/2018 11:19:01 Lalito Kaur MD
== END 2018-07-09 16:41 | disposition home or self-care (01) ==
PROVIDERS: Family Provider Family Medicine; PCP Family Medicine; Referring Provider Internal Medicine Cardiovascular Disease; Visit Provider Internal Medicine Cardiovascular Disease
DX: R07.9 Chest pain, unspecified (principal); I10 Essential (primary) hypertension; E74.39 Other disorders of intestinal carbohydrate absorption; K58.9 Irritable bowel syndrome, unspecified; E66.9 Obesity, unspecified; R94.31 Abnormal electrocardiogram [ECG] [EKG]; Z79.01 Long term (current) use of anticoagulants; Z79.52 Long term (current) use of systemic steroids; Z79.899 Other long term (current) drug therapy; Z86.718 Personal history of other venous thrombosis and embolism; Z86.711 Personal history of pulmonary embolism; Z87.891 Personal history of nicotine dependence
CPT/HCPCS: 36416; 85610; 93454; 99152; 99153; J7040; C1769; C1894; Q9967

== ENCOUNTER 2019-02-13 08:23 | Day surgery (SDC) | payer MEDICARE, SELFPAY ==
[2018-12-25 08:20] VITALS: BMI 60.9
--- NOTE | 2018-12-25 10:22 | HP_ITS ---
Intake Vital Signs 12/25/18 Body Mass Index (BMI) 60.9 Intake Visit Reasons: Left Thumb Chief Complaint: bilateral thumb Allergies enoxaparin sodium [From Lovenox] Allergy (Verified 05/16/18 10:36) Rash erythromycin lactobionate [From Erythrocin] Allergy (Verified 05/16/18 10:36) Rash Latex, Natural Rubber Allergy (Verified 05/16/18 10:36) Rash rofecoxib [From Vioxx] Allergy (Verified 05/16/18 10:36) Swelling valdecoxib [From Bextra] Allergy (Verified 05/16/18 10:36) Rash amoxicillin trihydrate [From Augmentin] Adverse Reaction (Verified 05/16/18 10:36) Other potassium clavulanate [From Augmentin] Adverse Reaction (Verified 05/16/18 10:36) Other Medications Lisinopril [Zestril] 10 mg PO DAILY 08/07/13 [History Confirmed 12/25/18] Warfarin [Coumadin] 7.5 mg PO SUMOWEFR 08/07/13 [History Confirmed 12/25/18] cycloBENZAPRine HCl [Flexeril] 10 mg PO TID PRN PRN 03/04/14 [History Confirmed 12/25/18] Acetaminophen with Codeine [Tylenol with Codeine #4 Tablet] 1 ea PO Q4H PRN PRN 02/02/16 [History Confirmed 12/25/18] Atenolol [Tenormin (beta yusuf)] 50 mg PO DAILY 02/02/16 [History Confirmed 12/25/18] Gabapentin [Neurontin] 300 mg PO QHS 02/02/16 [History Confirmed 12/25/18] Furosemide [Lasix] 20 mg PO DAILY PRN PRN 02/05/16 [History Confirmed 12/25/18] Amlodipine [Norvasc] 10 mg PO DAILY 07/25/16 [History Confirmed 12/25/18] Atenolol [Tenormin (beta yusuf)] 25 mg PO QHS 07/30/17 [History Confirmed 12/25/18] Warfarin Sodium 5 mg PO TUTHSA 07/30/17 [History Confirmed 12/25/18] Tizanidine HCl [Zanaflex] 4 mg PO Q6H PRN PRN 02/14/18 [History Confirmed 12/25/18] PFSH Medical History (Updated 02/21/18 @ 09:59 by Lisette Banks DO) H/O: hysterectomy (Inactive) s/p elbow (Inactive) Surgical History (Updated 03/06/18 @ 09:13 by Zuleika Callejas) h/o right CMC joint arthroplasty (Acute) S/P arthroscopy of knee (Inactive) S/P hernia repair (Inactive) S/P knee replacement (Inactive) Family History (Updated 05/30/17 @ 13:14 by Lucia Dillon) Sister Heart disease Brother Heart disease Father Heart disease Mother Breast cancer Social History (Updated 12/25/18 @ 10:22 by Lisette Banks DO) Smoking Status: Former smoker HPI Left Thumb: Surgical H&P: Yes Details: Parts of this documentation were recorded by a scribe, this documentation accurately reflects the service provided and the decisions made by me, Lisette Banks DO 12/25/18 0815. MORENA MARTINEZ is a 53 year old F here today for left thumb OA. Patient states she has had this pain for about 1-2 years and has had about 4 CMC joint injection of the left thumb and states these are effective for about 2 months. Last injection was 09/21/18. Patient is here today to discuss having surgery of the left thumb. Assessment & Plan Problems 1. Osteoarthritis of carpometacarpal joint of left thumb M18.12 Plan There is a palpable cyst along the volar aspect of the 2nd mcp joint, can inject if needed. Discussed the options for the left cmc OA is surgery, patient is aware of the risks and elects to proceed. Also reviewed the pain management options post op with a block, local and no splint with OT the day after. Will prescribe oxycodone to aid in home relief. D/c anticoagulants minimum of 5days prior to surgery Reviewed the pre-operative plans with the patient. Risks and benefits of the procedure were fully explained, including but not limited to infection, neurovascular injury, continued pain, arthritis, stiffness, need for further surgery, re-injury, DVT, PE, general risks of anesthesia, and loss of limb or life. The patient understands all the risks and does wish to proceed with written consent. Follow up post op or sooner if pain, swelling, numbness or associated symptoms, or concerns develop. All questions answered. Patient in agreement of plan. Coding Level of Care Code Off vis,est,level 4 Diagnoses Osteoarthritis of carpometacarpal joint of left thumb M18.12 12/25/18 1022 <Electronically signed by Lisette law DO> Date _ Lisette Banks DO
[2019-02-07 08:43] VITALS: BMI 60.9
[2019-02-13] VITALS (11 sets, daily range): BP systolic 115–196; BP diastolic 54–110; PULSE 72–96; RESP 16–24; TEMP 36.3–36.9; O2SAT 87–98; BMI 61.6
[2019-02-13] MEDS: Lactated Ringers 1,000 ML 100 ML IV ×2 (09:06→13:35)
[2019-02-13 09:27] LABS: Anion Gap 8 (5-15); BUN 17 mg/dL (7-18); BUN/Creat Ratio 23.3 RATIO (10-20); Calcium,Total 8.6 mg/dL (8.5-10.1); Chloride 104 mmol/L (98-107); Creatinine, Serum 0.73 mg/dL (0.55-1.02); EST Glomerular Filtration Rate 88 mL/min (>60); Est Glom Filt Rate - Afr Amer 107 mL/min (>60); Estimated Creatinine Clearance 81.51 ml/min; Glucose 157 mg/dL (74-106); Sodium Level 141 mmol/L (136-145)
[2019-02-13 09:33] LABS: Prothrombin Time Fingerstick 16.2 SEC (11.9-14.4)
--- NOTE | 2019-02-13 10:10 | RAD_ITS ---
STUDY: X-RAY - LEFT HAND REASON FOR EXAM: First carpometacarpal arthroplasty. TECHNIQUE: 3 intraoperative images of the hand. COMPARISON: Radiographs 01/26/2017. FINDINGS: There is resection arthroplasty of the first carpometacarpal joint with suture buttons adjacent to the first and second proximal metacarpals. 2 minutes and 36 seconds of fluoroscopy time was used. Electronically Signed: Pee Andre MD at 14:28 EDT Tel , Service support , RAD/Hand 2 Views
[2019-02-13] MEDS: Betamethasone/Betamethasone 30 MG/5 ML Vial (11:47)
--- NOTE | 2019-02-13 14:03 | DCINST_ITS ---
Discharge Diet: No Restrictions - follow up in OT tomorrow, keep incisions clean and dry, call with concerns, follow up in clinic in 2 weeks Discharge Activity: May Not Drive May shower in (days): 1 Ice area for (Minutes): 20 - Every hour while awake. Weight Bearing Status: Weight bearing as tolerated Keep extremity elevated above heart level: Operative Extremity Call your doctor if your incision/area has: Continuous Slow Oozing, Sudden Increased Bleeding, Increased Pain/ Swelling, Increased Redness, Foul Smelling Discharge Call your doctor if you observe: Fever of 101 or Higher, Coldness, Increased Pain, Numbness or Tingling, Change in Color, Calf discomfort Allergies/Adverse Reactions: Allergies enoxaparin sodium [From Lovenox] Allergy (Verified 02/13/19 08:50) Rash erythromycin lactobionate [From Erythrocin] Allergy (Verified 02/13/19 08:50) Rash Latex, Natural Rubber Allergy (Verified 02/13/19 08:50) Rash rofecoxib [From Vioxx] Allergy (Verified 02/13/19 08:50) Swelling valdecoxib [From Bextra] Allergy (Verified 02/13/19 08:50) Rash amoxicillin trihydrate [From Augmentin] Adverse Reaction (Verified 02/13/19 08:50) Other potassium clavulanate [From Augmentin] Adverse Reaction (Verified 02/13/19 08:50) Other Medications to take at Discharge Lisinopril [Zestril] 10 mg PO QHS 08/07/13 Warfarin [Coumadin] 7.5 mg PO TH 08/07/13 cycloBENZAPRine HCl [Flexeril] 10 mg PO TID PRN PRN 03/04/14 Acetaminophen with Codeine [Tylenol with Codeine #4 Tablet] 1 ea PO Q4H PRN PRN 02/02/16 Atenolol [Tenormin (beta yusuf)] 50 mg PO DAILY 02/02/16 Gabapentin [Neurontin] 300 mg PO QHS 02/02/16 Furosemide [Lasix] 20 mg PO DAILY PRN PRN 02/05/16 Atenolol [Tenormin (beta yusuf)] 25 mg PO QHS 07/30/17 Warfarin Sodium 5 mg PO SUMOTUWEFRSA 07/30/17 Tizanidine HCl [Zanaflex] 4 mg PO QHS 02/14/18 Oxycodone [Oxyir] 5 mg PO Q4H PRN PRN #60 tablet 02/13/19 The following prescriptions were given: Oxycodone [Oxyir] 5 mg PO Q4H PRN PRN #60 tablet PRN Reason: Pain Transmission Status: Sent to [facility] Primary Care Physician: Jonh Cha MD [Primary Care Provider] - Test Results: Test results from this visit will be discussed in further detail at your follow- up appointment, if applicable. Please Follow Up With: Lisette Banks, DO - [phone]
--- NOTE | 2019-02-13 14:04 | HP.PCM_ITS ---
History and Physical [facility] Medical Records Department [address] [place] [address] I have re-examined the patient. There are no clinical changes since date of exam. History and Physical 12/25/18 1022 MR#: [id number] Acct: [id number] Name: MORENA MARTINEZ Rep #: [id number] : 1965 53 From: Lisette Banks DO PCP: Starla RAM,Jonh Status: PRE [facility] Location: [facility] Intake Vital Signs 12/25/18 Body Mass Index (BMI) 60.9 Intake Visit Reasons: Left Thumb Chief Complaint: bilateral thumb Allergies enoxaparin sodium [From Lovenox] Allergy (Verified 05/16/18 10:36) Rash erythromycin lactobionate [From Erythrocin] Allergy (Verified 05/16/18 10:36) Rash Latex, Natural Rubber Allergy (Verified 05/16/18 10:36) Rash rofecoxib [From Vioxx] Allergy (Verified 05/16/18 10:36) Swelling valdecoxib [From Bextra] Allergy (Verified 05/16/18 10:36) Rash amoxicillin trihydrate [From Augmentin] Adverse Reaction (Verified 05/16/18 10:36) Other potassium clavulanate [From Augmentin] Adverse Reaction (Verified 05/16/18 10:36) Other Medications Lisinopril [Zestril] 10 mg PO DAILY 08/07/13 [History Confirmed 12/25/18] Warfarin [Coumadin] 7.5 mg PO SUMOWEFR 08/07/13 [History Confirmed 12/25/18] cycloBENZAPRine HCl [Flexeril] 10 mg PO TID PRN PRN 03/04/14 [History Confirmed 12/25/18] Acetaminophen with Codeine [Tylenol with Codeine #4 Tablet] 1 ea PO Q4H PRN PRN 02/02/16 [History Confirmed 12/25/18] Atenolol [Tenormin (beta yusuf)] 50 mg PO DAILY 02/02/16 [History Confirmed 12/25/18] Gabapentin [Neurontin] 300 mg PO QHS 02/02/16 [History Confirmed 12/25/18] Furosemide [Lasix] 20 mg PO DAILY PRN PRN 02/05/16 [History Confirmed 12/25/18] Amlodipine [Norvasc] 10 mg PO DAILY 07/25/16 [History Confirmed 12/25/18] Atenolol [Tenormin (beta yusuf)] 25 mg PO QHS 07/30/17 [History Confirmed 12/25/18] Warfarin Sodium 5 mg PO TUTHSA 07/30/17 [History Confirmed 12/25/18] Tizanidine HCl [Zanaflex] 4 mg PO Q6H PRN PRN 02/14/18 [History Confirmed 12/25/18] 1
--- NOTE | 2019-02-13 14:22 | PCM.OPRPT ---
Report of Operation Date of Procedure: 02/13/19 Pre-Operative Diagnosis: left cmc arthritis, right second digit trigger finger Post-Operative Diagnosis: [place] Surgery/Procedure Performed:: left cmc arthroplasty with arthrex tight rope, right index finger a1 roel injection microfilm processor: Ha Carson Type of Anesthesia:: General, General/Regional Anesthesiologist: David Gil Replaced: 1100cc lr Description of Procedure: Preop note Next Patient is a 54-year-old female with continued left CMC pain recalcitrant to injections however they did well last first short. However they are not lasting anymore she had a right CMC arthroplasty is doing very well from that standpoint and elected to proceed with her left CMC arthroplasty. Risk benefits and alternatives surgery were discussed with patient. Risks including but not limited to blood loss, blood clot, infection, neurovascular, failure procedure, loss of life and loss of limb. Patient is aware like proceed with left CMC arthroplasty. And right index finger A1 roel injection Operative note Patient seen and examined preoperative holding area. Left hand was marked. Patient brought to the operating room placed supine on the operating table. Signed, anesthesia, antibiotics were administered. Left arm was prepped and draped in usual sterile fashion with tourniquet around her upper arm. Marked out our incision for our CMC arthroplasty. Timeout was performed. Then elevated segmented the arm and tourniquet was raised to a pressure of 250 torr. We then marked out our we had marked out our incision starting from the base of the first metacarpal down to the radial styloid. We then used a 15 blade dissected down with tenotomies to level of the first extensor compartment extensor compartment was released. Dorsally. We then dissected further to visualize the trapezium we marked it with an 18-gauge needle confirming to the trapezium on fluoroscopy. We then incised the capsule of the trapezium and the CMC joint. We dissected down around the trapezium placed a Arthrex corkscrew into the trapezium and then were able to remove the trapezium. We then inspected to ensure that we had removed the bony and that there is no crepitus which there was not at that time. And we then moved to the stabilization of the first and second metacarpal first and second metacarpals. We used the K wire dissected and drilled from the first metacarpal to the second metacarpal placing our the then placed our tight rope in standard technique please note that prior to this we did make an incision over top of between the first and started the second and third interspace dissected down protected the nerve were able to then subperiosteally elevate the periosteum off the first metacarpal and then protected with a Hohmann and then able to drive drilled our metacarpal K wire through and out and then brought the stitches out on the opposite end through the hole that we had made. We then tied down provisionally the suture down to bone on the first second metacarpal we then looked to see if the first metacarpal shock to see if there was any subsidence in which there was not. We then tied down the sutures on the over the button on the second metacarpal. We irrigated both incision with copious muscle sterile saline. We closed the capsule in a pursestring configuration plate. We closed the skin with deep 2-0 Vicryl in a running 4-0 Monocryl for the CMC arthroplasty and then the dorsal interosseous incision we made closed with nylon. Sterile dressings were applied tourniquet was deflated for a total working time of 35 minutes. Patient tolerated procedure well patient received a postop regional block. Patient transferred recovery room stable condition no no complications. Postoperative note Patient neuro intact in the postoperative Prescriptions given to family We will follow-up tomorrow occupational therapy for range of motion beginning next Resume her Coumadin next Call with increased pain numbness tingling or further issues arises This note was generated with [employer] dictation software. It may contain incorrect words, spelling, and punctuation that were not noted in checking the note before signing.
[2019-02-13] MEDS: HYDROcodone Bitartrate/Apap 5/325 Tablet PO (14:44)
== END 2019-02-13 16:39 | disposition home or self-care (01) ==
LOC: SDC 08:24 → AC 08:26
PROVIDERS: Anesthesiology; Family Provider Family Medicine; PCP Family Medicine; Referring Provider Orthopaedic Surgery; Visit Provider Orthopaedic Surgery
PROC: (CPT 25447; principal; 2019-02-13 09:45)
DX: M18.12 Unilateral primary osteoarthritis of first carpometacarpal joint, left hand (principal); M65.321 Trigger finger, right index finger; I10 Essential (primary) hypertension; Z78.0 Asymptomatic menopausal state; Z79.01 Long term (current) use of anticoagulants; Z79.899 Other long term (current) drug therapy; Z88.0 Allergy status to penicillin; Z91.040 Latex allergy status; Z86.718 Personal history of other venous thrombosis and embolism; Z86.711 Personal history of pulmonary embolism; Z87.891 Personal history of nicotine dependence
CPT/HCPCS: 25447; 26055; 64417; 36416; 73120; 76000; 80048; 85610; C1713; J7120; J0702; J2405

== ENCOUNTER 2019-03-25 13:00 | Outpatient (RCR) | payer MEDICARE, SELFPAY ==
[2018-12-25 08:20] VITALS: BMI 60.9
[2019-02-13 08:51] VITALS: BMI 61.6
--- NOTE | 2019-02-18 10:40 | HP.OTEVAL_ITS ---
Patient's Visit Information MORENA MARTINEZ is a 54 year old F, referred to Occupational Therapy by Lisette Banks DO, with a diagnosis of left cmc arthritis. Date of Evaluation: 02/14/19 Occupational Therapist: ROB Romero/Holli, CHT - Subjective Subjective: This 54 year old female was seen for OT eval following a left CMC arthroplasty. Pt states she had difficulty with pain and limited use of left hand with daily tasks for about 2 years. pt had sx. on 02/13/19 arrives today with soft sx half cast on. reports pain is 4/10. pt in need of increase assistance with ADls and IADLS. 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 Household: Vacuum, Sweep/mop, Laundry - Pain left hand/wrist 4 Pain Intensity Range: 4, 8 - ROM Wrist: right 55/50 left 20/25 CMC: right 10 left 5 MP: right IP: right left 15 - Edema Wrist: right 18cm left 19.5 cm PIP: right MF 6.5 left 6.9cm Proximal Phalanx: right 19.5 left 19cm - Sensation Sensation Comments: reports tingling in LF and RF down ulnar side of forearm - Quick DASH-Disab of Arm,Shoulder& Hand Quick DASH Score: 86.3625 - Goals Goal:100% adherence to protocol: Yes Comment: tight rope protocol Goal:Daily scar massage when approriate: Yes Goal:ROM equal to unaffected hand: Yes Goal:Nursing Home Aide/Pinch strength at least 75% of unaffected hand: Yes Goal:No pain with affected hand use: Yes Goal:PIP Circumferences equal to unaffected hand: Yes Goal:Full use of affected hand in daily activities including: Yes Goal:Decrease scar hypersensitivity: Yes - Rehabilitation General Assessment: pt 1 day s/p cmc arthroplasty- pt demo with pain limited ROM of wrist and digits. This is limiting pts IND. with ADLS and IADLs. Pt would benefit from further skilled OT services 1-2x week for 8 weeks to return pt to PLOF. Today therapist herman. custom orthosis for night use and when out of home- therapist ed.pt that with changes in edema orthosis will need adj. and to return to clinic. pt demo understanding. therapist ed. pt on wrist ROM and tendon glide ex, as well as performing finger opposion. pt demo understanding and agree to POC. Rehabilitation Potential: Good - Anticipated Interventions Anticipated Interventions: A/AAROM/PROM, Strengthening, Edema Control, Triggerpoint Release, Desensitization, Sensory Retraining, Modalities, Orthoses, Joint Protection/Energy Conservation, Ergonomic Education - Visit Plan Frequency: 1-2x /Week Duration: 6 Weeks TEXT: Thank you for the opportunity to evaluate your patient. For Medicare and Medicare HMO plans, please review the plan of care and approve it. It will need to be FAXED BACK to us at [phone] for Medicare purposes. Please let me know if there are questions or concerns regarding this plan of care. Physician Signature: Date:
--- NOTE | 2019-06-17 17:13 | HP.OT.NRP ---
HP - Discharge Summary - Patient Information MORENA MARTINEZ was seen in my office for initial evaluation on 02/14/19. pt was given ROM ex. and edema control nita. pt progressed well with her HEP and is D/C at this time. The following Plan of Care was established for this patient: Plan: cont with ROM. light daily use. k-tape - Anticipated Interventions Anticipated Interventions: A/AAROM/PROM, Strengthening, Edema Control, Triggerpoint Release, Desensitization, Sensory Retraining, Modalities, Orthoses, Joint Protection/Energy Conservation, Ergonomic Education This patient was last seen in our office . Pertinent comments regarding their Occupational therapy will appear below: At this point I will be discontinuing this patient from occupational therapy. I would be happy to see this patient again in the future if found appropriate by the physician. Thank you! Priscila Sorenson, OTR/L, CHT
== END 2019-03-25 19:00 | disposition home or self-care (01) ==
LOC: OT 13:00
PROVIDERS: Family Provider Family Medicine; PCP Family Medicine; Referring Provider Orthopaedic Surgery; Visit Provider Orthopaedic Surgery
DX: Z98.890 Other specified postprocedural states (principal)
CPT/HCPCS: 97035; 97140; 97166; 97530; 97760

== ENCOUNTER → 2019-04-01 10:29 | Outpatient (CLI) | payer MEDICARE, SELFPAY ==
[2019-04-01 10:01] VITALS: BMI 61.6
--- NOTE | 2019-04-01 10:32 | RAD_ITS ---
STUDY: X-RAY - LEFT WRIST REASON FOR EXAM: Female, 54 years old. Pain. TECHNIQUE: 3 view(s) of the wrist were obtained. COMPARISON: None. FINDINGS: There is demineralization of the radius and ulna. There is degenerative arthrosis of the radiocarpal articulation. Normal distal radioulnar articulation. There is demineralization of the carpal bones. The trapezium appears small in size. Question prior fracture, surgical resection or limited development. There is degenerative arthrosis of the carpal articulations. There is evidence of wiring of the base of the first metacarpal to the base of the second part be secondary to the absent trapezium. This suggests a surgical resection. Normal second through fifth carpometacarpal articulations. Normal visualized metacarpal bones. The soft tissue structures are unremarkable. RAD/Wrist min 3 Views IMPRESSION: Surgical changes of the wrist without acute fracture or dislocation. Electronically Signed: Trent Sweeney DO at 17:45 EST Tel [phone], Service support ,
== END ==
PROVIDERS: Family Provider Family Medicine; PCP Family Medicine; Referring Provider Physician Assistant; Visit Provider Physician Assistant
DX: Z47.89 Encounter for other orthopedic aftercare (principal)
CPT/HCPCS: 73110

== ENCOUNTER 2019-06-09 05:15 | Emergency (ER) | payer MEDICARE, SELFPAY ==
[2019-05-17 11:02] VITALS: BMI 61.6
[2019-06-09 05:16] VITALS: BP 200/75; PULSE 63; RESP 16; TEMP 36.4; O2SAT 98; BMI 61.8
--- NOTE | 2019-06-09 05:34 | ED.DCSUM_ITS ---
- ER Visit Summary Date of Service: 06/09/19 Chief Complaint: Right flank pain and right upper quadrant abdominal pain History of Present Illness: The patient is a 54 F who presents with right flank and right upper quadrant abdominal pain that is been waxing and waning over the past 2 days. Patient describes the pain as aching and shooting at times. Patient states the pain is localized to the right flank and right upper quadrant. Patient states her pain is worse when she lays flat. Patient denies any nausea or vomiting. Patient does admit to some dysuria but denies any hematuria. Patient denies any chest pain or shortness of breath. Patient denies any fevers or chills. Physical Examination: Vital signs are stable except for an elevated blood pressure of 200/75. Patient is afebrile. Patient is in no acute distress. Oral mucosa is pink and moist. Neck is supple. Trachea is midline. There is no JVD. Heart was regular rate and rhythm. Lungs are clear and equal bilaterally. Abdomen is soft. Bowel sounds are normal. There is right upper quadrant tenderness. There is no rebound or guarding noted. Cranial nerves II through XII are intact. There are no focal motor or sensory deficits noted. Test Results: CBC and comprehensive metabolic profile were essentially within normal limits. Lipase was normal. Urinalysis shows leukocyte esterase of 500 but there were only 5-[address] scan of the abdomen pelvis was obtained and is pending. Emergency Department Course and Treatment: Patient was given IV fluids, Zofran, and Toradol. Disposition: Care of the patient was turned over to the oncoming physician pending CT results. Patient will likely be discharged. Impression: Abdominal pain This note was generated with [employer] dictation software. It may contain incorrect words, spelling, and punctuation that were not noted in review of the chart prior to signing ED Disposition - Plan for ED Patient: Disposition: Home or Assisted Living Diagnosis: Abdominal pain Instructions: ABDOMINAL PAIN, Unknown Cause, (Female) Prescriptions: Hydrocodone Bitart/Apap 5-325 [[place] 5MG-325MG] 1 tab PO Q6H PRN PRN 3 Days #10 tab PRN Reason: Pain Prescription Printed Ondansetron [Zofran Odt] 4 mg PO Q8H PRN PRN #10 tab PRN Reason: Nausea Prescription Printed Referrals: Jonh Cha MD [Primary Care Provider] - 3-5 Days
--- NOTE | 2019-06-09 05:35 | CT_ITS ---
STUDY: CT ABDOMEN AND PELVIS WITHOUT CONTRAST REASON FOR EXAM: Female, 54 years old. RT SIDED BACK PAIN, RUQ PAIN RADIATION DOSAGE (If Supplied By Facility): CTDIvol = ( 24.18 ) mGy, DLP = ( 1232.25 ) mGycm TECHNIQUE: Transaxial images were obtained from the dome of the diaphragm to the symphysis pubis without oral contrast, and without intravenous contrast. Sagittal and coronal images were reconstructed. Individualized dose optimization techniques were used for this CT. COMPARISON: None. FINDINGS: Ill-defined airspace opacities are seen in the right lower lobe and right middle lobe suggesting atelectasis or pneumonia. The visualized portions of the heart are within normal limits. Normal liver. There are surgical clips in the gallbladder fossa consistent with a prior cholecystectomy. Normal spleen. Normal pancreas. Normal bilateral adrenal glands. Normal right kidney. Normal left kidney. Normal visualized stomach. Normal small intestine. There are multiple colonic diverticula consistent with diverticulosis. There is non-visualization of the appendix. Normal abdominal aorta. Normal inferior floor. Normal retroperitoneum. Normal urinary bladder. Normal abdominal wall. There are diffuse degenerative changes of the visualized lumbar spine. CT/Abdomen/Pelvis without Cont IMPRESSION: Possible right lower lobe and right middle lobe pneumonia. Electronically Signed: Di Almanza, at 7:31 EST Tel , Service support ,
[2019-06-09 05:56] LABS: Absolute Lymphocyte Count 2.39 X10^3/uL (0.83-4.51); Absolute Neutrophil Count 2.9 X10^3/uL (2.0-7.7); Basophil# 0.05 X10^3/uL; Basophil% 0.8 % (0-1); Eosinophil# 0.11 X10^3/uL; Eosinophils% 1.9 % (0-5); Hematocrit 43.8 % (37-47); Hemoglobin 14.2 g/dL (12.0-15.0); Lymphocyte # 2.39 X10^3/ul (4.0); Lymphocyte % 40.2 % (19-41); Mean Corp Hgb Conc 32.4 g/dL (32-36); Mean Corpuscular Volume 86.2 fL (81-99); Mean Platelet Vol. 9.4 fl (6.2-12.0); Monocyte# 0.47 X10^3/uL; Monocyte% 7.9 % (0-10); NRBC Flagged by Analyzer 0 % (0-5); Neutrophil # 2.91 X10^3/uL (2.7-7.7); Platelet Count 218 K/mm3 (150-450); RBC Distribution Width CV 12.5 % (11.6-14.6); RBC Distribution Width SD 39.3 fl (35.1-43.9); Red Blood Count 5.08 M/mm3 (4.2-5.4); White Blood Count 5.9 K/mm3 (4.4-11.0)
[2019-06-09] MEDS: Ketorolac 30 MG/ML Syringe IV (05:57)
[2019-06-09] MEDS: 0.9% Normal Saline 1,000 ML 1000 ML IV (05:57)
[2019-06-09] MEDS: Ondansetron 4 MG/2 ML Vial IV (05:57)
[2019-06-09 06:18] LABS: ALB/GLOB Ratio 0.9 RATIO (0.9-2.4); AST(SGOT) 25 U/L (15-37); Alanine Aminotransfer ALT/SGPT 41 U/L (13-56); Albumin, Serum 3.3 g/dL (3.2-5.0); Alkaline Phosphatase 67 U/L (45-117); Anion Gap 7 (5-15); BUN 15 mg/dL (7-18); BUN/Creat Ratio 21.1 RATIO (10-20); Calcium,Total 8.8 mg/dL (8.5-10.1); Chloride 104 mmol/L (98-107); Creatinine, Serum 0.71 mg/dL (0.55-1.02); EST Glomerular Filtration Rate 90 mL/min (>60); Est Glom Filt Rate - Afr Amer 109 mL/min (>60); Estimated Creatinine Clearance 83.81 ml/min; Globulin 3.8 g/dL (2.2-4.2); Glucose 128 mg/dL (74-106); Lipase 142 U/L (73-393); Protein, Total 7.1 g/dL (6.4-8.2); Sodium Level 138 mmol/L (136-145)
[2019-06-09 06:20] LABS: Mucous, Urine 0 SEEN /hpf (<or=2+); Red Blood Cells-Urine 0 SEEN /hpf (0-5)
[2019-06-09 06:26] LABS: Color, Urine Yellow (Yellow); Glucose, Dipstick Normal (Normal); Ketone-Dipstick Negative (Negative); Leukocyte Esterase-Dipstick 500 /ul (Negative); Nitrite-Dipstick Negative (Negative); Occult Blood-Urine Negative /ul (Negative); Protein-Dipstick Negative (Negative); Urine Bilirubin Dipstick Negative (Negative); Urine Clarity Cloudy (Clear); Urine Urobilinogen Normal (Normal)
[2019-06-09 06:39] LABS: Bacteria RARE /hpf (None Seen); White Blood Cells 5-10 SEEN /hpf (0-5)
[2019-06-09 06:41] LABS: Squamous Epithelial Cells - UA 0-5 SEEN /hpf (5-10)
[2019-06-09 08:05] VITALS: BP 156/69; PULSE 66; RESP 16; O2SAT 98
== END 2019-06-09 08:05 | disposition home or self-care (01) ==
PROVIDERS: Emergency Provider Emergency Medicine; PCP Family Medicine
DX: R10.11 Right upper quadrant pain (principal); R30.0 Dysuria; M54.9 Dorsalgia, unspecified; G89.29 Other chronic pain; I10 Essential (primary) hypertension; E66.9 Obesity, unspecified; Z79.01 Long term (current) use of anticoagulants; Z79.899 Other long term (current) drug therapy; Z86.718 Personal history of other venous thrombosis and embolism; Z86.711 Personal history of pulmonary embolism
CPT/HCPCS: 74176; 80053; 81001; 83690; 85025; 96361; 96374; 96375; 99283; A4216; J2405

== ENCOUNTER → 2020-01-07 10:36 | Outpatient (CLI) | payer MEDICARE, SELFPAY ==
[2020-01-07 09:54] VITALS: BMI 61.8
[2020-01-07 10:41] LABS: Lyme Ab Screen Interpretation REF LAB
[2020-01-07 12:30] LABS: Absolute Lymphocyte Count 1.93 X10^3/uL (0.83-4.51); Absolute Neutrophil Count 4.6 X10^3/uL (2.0-7.7); Basophil# 0.06 X10^3/uL; Basophil% 0.8 % (0-1); Eosinophil# 0.09 X10^3/uL; Eosinophils% 1.3 % (0-5); Hematocrit 43.4 % (37-47); Hemoglobin 14.4 g/dL (12.0-15.0); Lymphocyte # 1.93 X10^3/ul (4.0); Mean Corp Hgb Conc 33.2 g/dL (32-36); Mean Corpuscular Hgb 28.7 pg (27.0-32.0); Mean Corpuscular Volume 86.6 fL (81-99); Mean Platelet Vol. 10.4 fl (6.2-12.0); Monocyte# 0.35 X10^3/uL; Monocyte% 4.9 % (0-10); NRBC Flagged by Analyzer 0 % (0-5); Neutrophil # 4.61 X10^3/uL (2.7-7.7); Neutrophil % 64.6 % (47-70); Platelet Count 255 K/mm3 (150-450); RBC Distribution Width SD 38.2 fl (35.1-43.9); Red Blood Count 5.01 M/mm3 (4.2-5.4); White Blood Count 7.1 K/mm3 (4.4-11.0)
[2020-01-07 12:35] LABS: Erythrocyte Sedimentation Rate 33 mm/hr (0-30)
[2020-01-07 12:44] LABS: AST(SGOT) 46 U/L (15-37); Alanine Aminotransfer ALT/SGPT 53 U/L (13-56); Albumin, Serum 3.7 g/dL (3.2-5.0); Alkaline Phosphatase 83 U/L (45-117); Amylase 36 U/L (25-115); Bilirubin, Direct 0.21 mg/dL (0.00-0.30); LDH 201 U/L (84-246); Lipase 108 U/L (73-393); Protein, Total 7.7 g/dL (6.4-8.2); Rheumatoid Factor < 10.0 IU/mL (<15)
[2020-01-08 15:50] LABS: ANTINUCLEAR ANTIBODIES DIRECT Negative (Negative)
[2020-01-14 20:33] LABS: CCP IgG Antibodies 6 units (0-19); HLA B27 Negative (.); Lyme Scn Total Ab w/Rflx <0.91 ISR (0.00-0.90)
== END ==
PROVIDERS: PCP Family Medicine; Referring Provider Orthopaedic Surgery; Visit Provider Orthopaedic Surgery
DX: M25.512 Pain in left shoulder (principal); M75.42 Impingement syndrome of left shoulder; R07.81 Pleurodynia; R10.9 Unspecified abdominal pain
CPT/HCPCS: 36415; 80076; 81374; 82150; 83615; 83690; 85025; 85652; 86038; 86140; 86200; 86431; 86618

== ENCOUNTER 2020-02-09 08:08 | Emergency (ER) | payer MEDICARE, SELFPAY ==
[2020-01-07 09:54] VITALS: BMI 61.8
[2020-02-09 08:11] VITALS: BP 161/85; PULSE 71; RESP 17; TEMP 36.1; O2SAT 97; BMI 61.1
--- NOTE | 2020-02-09 08:24 | CT_ITS ---
STUDY: CT ABDOMEN AND PELVIS WITHOUT CONTRAST REASON FOR EXAM: Female, 55 years old. RT FLANK PAIN, HX-KS, SURG-ARIELLE/BSO, APPY, MISHA, HERNIA REPAIR, ROX FILTER, HX-DB,HTN RADIATION DOSAGE (If Supplied By Facility): CTDIvol = ( 34.45 ) mGy, DLP = ( 1807.61 ) mGycm TECHNIQUE: Transaxial images were obtained from the dome of the diaphragm to the symphysis pubis without oral contrast, and without intravenous contrast. Sagittal and coronal images were reconstructed. Individualized dose optimization techniques were used for this CT. COMPARISON: 06/09/2019 FINDINGS: There is fibrotic scarring in the right lung base. The visualized portions of the heart are within normal limits. Normal liver. There are surgical clips in the gallbladder fossa consistent with a prior cholecystectomy. Normal spleen. Normal pancreas. Normal bilateral adrenal glands. Normal right kidney. Nonobstructing calculus of the upper left kidney measures 2 mm on image 53. Normal visualized stomach. Normal small intestine. There are multiple colonic diverticula consistent with diverticulosis. There is non-visualization of the appendix. Normal abdominal aorta. There is an IVC filter in place. There are gonadal vein phleboliths. Normal retroperitoneum. Normal urinary bladder. There is absence of the uterus consistent with a prior hysterectomy. Operative changes of the anterior abdominal wall. Normal osseous structures. CT/Abdomen/Pelvis without Cont IMPRESSION: 1. No hydronephrosis or ureteral calcifications. Electronically Signed: Gilles Murdock MD ([place]) at 9:06 EDT , Service support ,
--- NOTE | 2020-02-09 08:24 | VDLE_ITS ---
Reason For Study: pain RIGHT GSV is normal. CFV is compressible, spontaneous, phasic, competent and demonstrates normal augmentation. FV is compressible, spontaneous, phasic, competent and demonstrates normal augmentation. POP V is compressible, spontaneous, phasic, competent and demonstrates normal augmentation. T/P Trunk is compressible. PTV is compressible. RT PerV is compressible. Procedure This is a venous duplex using B-mode, color flow and spectral Doppler. Exam performed portable in ED. The exam was abbreviated due to the COVID 19 protocol. The exam was diagnostic. Difficult study due to pt body habitus. A preliminary report was called and/or faxed to Dr. Harper. Interpretation Summary Deep veins of the right lower extremity are patent and compressible segmentally. There is no evidence of right lower extremity deep vein thrombosis. Valvular competence appears intact within the proximal deep venous system on the right . The right great saphenous vein appears patent and compressible segmentally. Ordering Physician: Cassidy Harper Performed By: Mauricio Roberson RVT
--- NOTE | 2020-02-09 08:35 | ED.DCSUM_ITS ---
- ER Visit Summary Date of Service: 02/09/20 Chief Complaint: Flank pain, right leg redness History of Present Illness: The patient is a 55 F presenting with flank pain and right leg redness. Patient states she had a fever 2 days ago. She had no fever yesterday or today. She started having bilateral flank pain 2 days ago. She had urinary frequency without dysuria. She initially had nausea and vomiting but that has resolved. She denies abdominal pain or diarrhea. Denies chest pain or shortness of breath. She is on Coumadin for history of DVT. She started having right leg redness yesterday. Denies other complaints. Physical Examination: Vitals are stable. Patient is afebrile. Alert no acute distress. HEENT exam is unremarkable. Neck is supple. Lungs are clear and equal bilaterally. Heart is regular rate and rhythm. Abdomen is soft nontender nondistended. Back: Mild right CVA tenderness Extremities right lower leg erythema. Normal pulses. Skin is warm and dry. No focal neurologic deficit. Remainder of exam is unremarkable. Emergency Department Course and Treatment: Patient was given IV fluids, Zofran. She declined pain medication because she drove herself to the emergency department. CBC, chemistries unremarkable. INR 1.5. Urinalysis shows 5-10 white blood cells, [address] abdomen pelvis shows no acute process. Ultrasound right lower extremity shows no evidence of DVT. Patient has an allergy to Augmentin which causes yeast infection. She has had Keflex in the past without difficulty. She will be given Keflex to cover for cellulitis and her UTI. She is advised to watch for worsening cellulitis. She is advised to monitor her INR which she states she can do at home. Advised to follow-up with her primary care physician. Advised return to the ED for worsening complaints. Disposition: Discharge home Impression: UTI, RLE cellulitis This note was generated with [employer] dictation software. It may contain incorrect words, spelling, and punctuation that were not noted in review of the chart prior to signing ED Disposition - Plan for ED Patient: Referrals: Jonh Cha MD [Primary Care Provider] -
[2020-02-09 09:37] LABS: Absolute Lymphocyte Count 1.64 X10^3/uL (0.83-4.51); Absolute Neutrophil Count 4.6 X10^3/uL (2.0-7.7); Basophil# 0.04 X10^3/uL; Basophil% 0.6 % (0-1); Eosinophil# 0.06 X10^3/uL; Eosinophils% 0.9 % (0-5); Hemoglobin 14.4 g/dL (12.0-15.0); Lymphocyte # 1.64 X10^3/ul (4.0); Lymphocyte % 24.1 % (19-41); Mean Corp Hgb Conc 31.3 g/dL (32-36); Mean Corpuscular Volume 89.3 fL (81-99); Mean Platelet Vol. 9.4 fl (6.2-12.0); Monocyte% 7.4 % (0-10); NRBC Flagged by Analyzer 0 % (0-5); Neutrophil # 4.55 X10^3/uL (2.7-7.7); Neutrophil % 66.9 % (47-70); Platelet Count 237 K/mm3 (150-450); RBC Distribution Width CV 12.7 % (11.6-14.6); RBC Distribution Width SD 42.1 fl (35.1-43.9); Red Blood Count 5.15 M/mm3 (4.2-5.4); White Blood Count 6.8 K/mm3 (4.4-11.0)
[2020-02-09 09:44] LABS: International Normalized Ratio 1.5
[2020-02-09 09:48] VITALS: BP 138/69; PULSE 69; RESP 22; O2SAT 96
[2020-02-09 09:51] LABS: Mucous, Urine 0 SEEN /hpf (<or=2+); Red Blood Cells-Urine 0 SEEN /hpf (0-5)
[2020-02-09 09:57] LABS: ALB/GLOB Ratio 0.7 RATIO (0.9-2.4); AST(SGOT) 23 U/L (15-37); Alanine Aminotransfer ALT/SGPT 40 U/L (13-56); Albumin, Serum 3.1 g/dL (3.2-5.0); Alkaline Phosphatase 70 U/L (45-117); Anion Gap 4 (5-15); BUN 16 mg/dL (7-18); BUN/Creat Ratio 18.7 RATIO (10-20); Chloride 107 mmol/L (98-107); Creatinine, Serum 0.85 mg/dL (0.55-1.02); EST Glomerular Filtration Rate 73 mL/min (>60); Est Glom Filt Rate - Afr Amer 89 mL/min (>60); Estimated Creatinine Clearance 69.18 ml/min; Globulin 4.4 g/dL (2.2-4.2); Glucose 149 mg/dL (74-106); Potassium 4.1 mmol/L (3.5-5.1); Protein, Total 7.5 g/dL (6.4-8.2); Sodium Level 140 mmol/L (136-145)
[2020-02-09 09:57] LABS: Color, Urine Yellow (Yellow); Glucose, Dipstick Normal (Normal); Ketone-Dipstick Negative (Negative); Leukocyte Esterase-Dipstick 500 /ul (Negative); Nitrite-Dipstick Negative (Negative); Occult Blood-Urine Negative /ul (Negative); Protein-Dipstick Negative (Negative); Urine Bilirubin Dipstick Negative (Negative); Urine Clarity Clear (Clear); Urine Urobilinogen Normal (Normal)
[2020-02-09 09:58] LABS: Squamous Epithelial Cells - UA 0-5 SEEN /hpf (5-10)
[2020-02-09 10:05] LABS: White Blood Cells 5-10 SEEN /hpf (0-5)
[2020-02-09 10:06] LABS: Bacteria 1+ /hpf (None Seen)
[2020-02-09 10:52] VITALS: BP 143/73; O2SAT 97
--- NOTE | 2020-02-09 10:54 | DCINST.ED_ITS ---
ED Disposition - Plan for ED Patient: Instructions: ED CYSTITIS Female Adult, ED Cellulitis Prescriptions: Cephalexin [Keflex] 500 mg PO Q6 #40 cap Prescription Printed Hydrocodone Bitart/Apap 5-325 [[place] 5MG-325MG] 1 tab PO Q6H PRN PRN 3 Days #10 tab PRN Reason: Pain Prescription Printed Referrals: Jonh Cha MD [Primary Care Provider] -
== END 2020-02-09 11:10 | disposition home or self-care (01) ==
LOC: ED 08:54
PROVIDERS: Emergency Provider Emergency Medicine; PCP Family Medicine
DX: N39.0 Urinary tract infection, site not specified (principal); L03.115 Cellulitis of right lower limb; E11.9 Type 2 diabetes mellitus without complications; I10 Essential (primary) hypertension; Z79.01 Long term (current) use of anticoagulants; Z79.899 Other long term (current) drug therapy; Z86.718 Personal history of other venous thrombosis and embolism; Z87.442 Personal history of urinary calculi
CPT/HCPCS: 74176; 80053; 81001; 85025; 85610; 93971; 99284; J7030; A4216

== ENCOUNTER 2022-05-18 08:24 | Outpatient (RCR) | payer MEDICARE, SELFPAY ==
[2022-05-18 08:52] VITALS: TEMP 35.4; BMI 53.5
--- NOTE | 2022-05-18 10:24 | PCM.WC.PN ---
History of Present Illness Date of Service: 05/18/22 Chief Complaint: Follow-up on left groin open wound nonhealing History of Wound: 57-year-old white obese female, develops open sores in her groin mostly in the same spot all the time. She states after a period of time they heal up on their own. She saw Dr. Stapleton general surgeon who discussed with she was not really a good surgical candidate because it would make a huge hole if he was trying to remove it. He feels it might be hidradenitis and had her referred to the wound center. There was no tunneling noted some hyper granulating tissue but she does have 2 open areas and that left groin area. With some erythematous areas around it. Will refer to dermatology to see if she would be a candidate for injections for the hidradenitis if that is possible. In the meantime we will continue seeing her for wound care Progress of Wound: To open areas adjacent to each other in the left groin area with no real depth but there is tunneling between the 2. Will use Aquacel extra to see if that will heal them up. And have her follow-up in 1 week Subjective Subjective Patient was okay with the referral and dressing changes Objective Data Objective Data We did culture the areas and we will see if there is any growth we will contact her change and put her on an antibiotic. Otherwise we will continue using Aquacel extra for the time being and have a referral to dermatology and see what they think also. Patient is diabetic and on blood thinners Vital Signs: Vital Signs Temp O2 Del Method 95.8 F L Room Air 05/18/22 08:52 05/18/22 08:52 Oxygen Delivery Method Room Air Weight: 342 lb Body Mass Index (BMI) 53.5 Physical Exam Const oriented x3 General Appearance: cooperative Exam Limitations: no limitations HEENT normocephalic Head and Scalp: normal to inspection Nose: external nose normal General Ear: hearing grossly impaired External Ear: external ears normal Eyes PERRL General Eye: normal appearance of both eyes Neck full ROM Lymph Lymphatic: no lymphadenopathy noted Resp normal respiratory effort Effort and Inspection: able to speak in complete sentences Auscultation: clear to auscultation bilaterally Cardio regular rate and regular rhythm Palpation: normal PMI Rate: regular rate Rhythm: regular rhythm GI Inspection: pannus present and other Other Details: Large pannus with pendulous abdomen Auscultation: normoactive bowel sounds Palpation: soft and no hepatosplenomegaly Extremity General Extremity: normal exam except as noted Skin Wounds: wounds noted Wound Narrative: Left groin open wounds and erythematous area noted to real depth tunneling between the 2 adjacent to each other. Neuro oriented x3 Psych Appearance: grossly normal Speech: normal speech Thought Content: normal thought content Judgement: judgement good Debridement Note Debridement Note Wound debrided: Left groin cluster Type of Debridement: Excisional debridement Anesthesia Used: 5% Lidocaine Gel Depth: in the subcutaneous layer Percentage of wound debrided: 100 Instrument Used: 5mm curette Tissue Removed: Fibrin Severity: Limited To Skin Breakdown Amount of bleeding with debridement: Mild Bleeding Controlled with: Compression and gauze Patient tolerated procedure: Patient tolerated procedure well Post-Debridement Measurements and Additional Note: Post-Debridement Measurements/Treatment - Nurse 1 - General Ulcer Assessment Start: 05/18/22 08:30 Freq: Status: Active Protocol: DIDIER Activity Type Activity Date Activity User E-sign Co-sign Detail Recorded Client Recorded Date Recorded By Document 05/18/22 08:52 [facility] [id number] 05/18/22 09:00 [facility] 05/18/22 08:52 - Today's Visit Information Type of service Initial Visit Arrival Mode Ambulatory Transfer Assistance None Patient Identification Verified (Name & Yes ) Patient Requires Transmission-Based No Precautions Height and Weight Height 5 ft 7 in Weight 342 lb Weight in Pounds 342.0 lbs Weight Measurement Method Estimated by Patient Body Mass Index (BMI) 53.5 BMI Classification Obese BSA - Evelyne 2.54 Vital Signs Temperature (97.8 F-99.1 F) 95.8 F L Temperature Source Temporal Pulse Location Monitor Respiratory rate source Observation Oxygen Delivery Method Room Air Source Monitor Position Sitting Blood Pressure Location Left Arm History Since Last Visit- (Skip if this is Patient's initial visit) Left Footwear Regular Shoe Right Footwear Regular Shoe Pain Scale: 0-10 Numeric Is Patient Pain Free? Yes Communication Assessment Preferred language Kyrgyz Instructor Ballroom Dancing Required No Able to Read Yes Able to Write Yes Communication Tools None Right Hearing Abillity Normal Left Hearing Abillity Normal Visual Assistive Devices Glasses Teaching Assessment Preferences Verbal,Written, Audio/Visual, Demonstration Barriers to Learning None Readiness To Learn Excellent Willingness to Engage in Self Management High Activies Readiness to Engage in Self Management High Activities Anxiety Level Calm Cooperation Cooperative Perception Coherent Interest in Health Problem Asks Questions Education Importance Acknowledges Need Does Patient Smoke tobacco or other No substances Smoking Status Former smoker Is Patient Diabetic Yes Functional Assessment Recent Decline in Ability to Perform Denies Any Declines 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 Cultural/Mandaeism Needs that may affect No Treatment Plan Teaching: Wound Center *Welcome to the Wound Center -Person Taught Patient -Teaching Method Discussion -Response to teaching Verbalize understanding Welcome to the Wound Care Center [place] ANGÉLICA - Nurse 1 - General Ulcer Measurement Start: 05/18/22 08:30 Freq: Status: Active Protocol: Activity Type Activity Date Activity User E-sign Co-sign Detail Recorded Client Recorded Date Recorded By Document 05/18/22 08:52 [facility] [id number] 05/18/22 09:00 BM 05/18/22 08:52 Wound Center Nurse 1 #1- L GROIN -Combined with other wound No -Current Size (cm) - Length 0.5 -Current Size (cm) - Width 0.5 -Current Size (cm) - Depth 0.5 -Total Square Cm 0.25 -Date of Last Picture (Recall this 05/18/22 field) -Photo Taken Yes -Epithelialization None Present -Tunneling No -Undermining/Tunneling No -Circular Undermining No -Exudate Amt Medium -Exudate Type Sanguineous -Wound Margin Distinct, Outline Attached -Granulation Amt Large (67-100%) -Granulation Quality Red -Slough/Fibrin No -Necrosis Amt None Present (0 %) -Texture (Mayela-wound Skin Appearance) Assessed, Scarring -Moisture (Mayela-wound Skin Appearance) Assessed -Color (Mayela-wound Skin Appearance) Assessed -Temperature (Mayela-wound Skin No Abnormality Appearance) (Pt Warm) -Tenderness on Palpation (Mayela-wound No Skin Appearance) -Ulcer Cleansing Rinsed/ Irrigated with Saline -Foul Odor after Cleansing No -Anesthetic Used 4% Lidocaine Solution ANGÉLICA - Nurse 2 - General Ulcer CM Notes Start: 05/18/22 08:30 Freq: Status: Active Protocol: Activity Type Activity Date Activity User E-sign Co-sign Detail Recorded Client Recorded Date Recorded By Document 05/18/22 09:19 MW [id number] 05/18/22 09:28 MW 05/18/22 09:19 Wound Center Nurse 2 -Time 09:20 -Correct Patient Yes -Correct Side, Site, Position Yes -Correct Procedure Yes -Procedure Performed Yes -Type of Procedure Debridement -Clinical Debridement Subcutaneous -Tissue Removed Subcutaneous -Post Debridement (cm) - Length 2.3 -Post Debridement (cm) - Width 1.0 -Post Debridement (cm) - Depth 0.1 -Total Square (Post) (cm) 2.30 -Area of Debridement (cm) - Length 2.3 -Area of Debridement (cm) - Width 1.0 -Total Square (Area) (cm) 2.30 -Tunneling No -Undermining/Tunneling No -Circular Undermining No -Wound/Ulcer Outcome Not Healed -Ulcer Cleansing Rinsed/ Irrigated with Saline -Foul Odor after Cleansing No -Bioengineered Tissue No -Bleeding Controlled with Pressure -Treatment Response Procedure Tolerated Well -Offloading No -Debridement - Subq, 1st 20sq cm Yes Pain Scale: 0-10 Numeric Is Patient Pain Free? Yes - Nurse 3 - General Ulcer D/C NN Start: 05/18/22 08:30 Freq: Status: Active Protocol: Activity Type Activity Date Activity User E-sign Co-sign Detail Recorded Client Recorded Date Recorded By Document 05/18/22 09:32 [facility] [id number] 05/18/22 09:33 [facility] 05/18/22 09:32 Wound Care Nurse 3 #1- L GROIN -Ulcer Cleansing Rinsed/ Irrigated with Saline -Foul Odor after Cleansing No -Primary Dressing Applied Aquacel Extra -Other Dressing ABD -Primary Dressing Covered/Secured with Dry Gauze -Aquacel Extra 1 Treatment Response Procedure Tolerated Well Pain Scale: 0-10 Numeric Is Patient Pain Free? Yes WC - Visit Discharge Discharge Condition Stable Ambulatory Status Ambulatory Transportation Private Auto Assessment/Plan Assessment/Plan (1) Nonhealing nonsurgical wound: CODE(S): T14.8XXA - Other injury of unspecified body region, initial encounter (2) Hidradenitis: CODE(S): L73.2 - Hidradenitis suppurativa PLAN: Plan Wash the area with antibacterial soap and pat dry apply Aquacel extra to wound base cover with dressing and ABD This is a daily dressing We will call with culture results Follow-up in 1 week
== END 2022-05-31 23:59 | disposition home or self-care (01) ==
LOC: WC 08:24
PROVIDERS: PCP Family Medicine; Visit Provider Nurse Practitioner
DX: T14.8XXA Other injury of unspecified body region, initial encounter (principal); Z68.43 Body mass index [BMI] 50.0-59.9, adult; E11.9 Type 2 diabetes mellitus without complications; L73.2 Hidradenitis suppurativa; E66.9 Obesity, unspecified; S31.104A Unspecified open wound of abdominal wall, left lower quadrant without penetration into peritoneal cavity, initial encounter; X58.XXXA Exposure to other specified factors, initial encounter; Z79.01 Long term (current) use of anticoagulants; Z79.899 Other long term (current) drug therapy
CPT/HCPCS: 11042; 87070; 87075; 87077; 87205; 99203; G0463

== ENCOUNTER 2022-06-15 09:00 | Outpatient (RCR) | payer MEDICARE, SELFPAY ==
[2022-06-01 00:45] VITALS: TEMP 35.4; BMI 53.5
[2022-06-01 09:06] VITALS: BP 189/71; PULSE 66; TEMP 36.2; BMI 53.5
--- NOTE | 2022-06-01 09:08 | WC ---
Pain 7-10 in left shoulder and hip
--- NOTE | 2022-06-01 11:53 | PN.PCM_ITS ---
History of Present Illness Date of Service: 06/01/22 Chief Complaint: Follow-up on left groin open wound nonhealing History of Wound: 57-year-old white obese female, develops open sores in her groin mostly in the same spot all the time. She states after a period of time they heal up on their own. She saw Dr. Stapleton general surgeon who discussed with she was not really a good surgical candidate because it would make a huge hole if he was trying to remove it. He feels it might be hidradenitis and had her referred to the wound center. There was no tunneling noted some hyper granulating tissue but she does have 2 open areas and that left groin area. With some erythematous areas around it. Will refer to dermatology to see if she would be a candidate for injections for the hidradenitis if that is possible. In the meantime we will continue seeing her for wound care Progress of Wound: Today the wound looks smaller and healing well she had a couple of bacteria is growing and is on 2 different antibiotic and antimicrobial tolerating well. Should heal well using the Aquacel extra Subjective Subjective Patient is happy that is getting smaller Objective Data Objective Data Surrounding perimeter of the wound is fleshy colored not erythematous looks good healing well getting smaller. Vital Signs: Vital Signs Temp Pulse BP 97.2 F L 66 189/71 H 06/01/22 09:06 06/01/22 09:06 06/01/22 09:06 Weight: 342 lb Body Mass Index (BMI) 53.5 Lab / Micro Data Attestation: I reviewed the patient's lab results. Physical Exam Const oriented x3 General Appearance: cooperative Exam Limitations: no limitations HEENT normocephalic Head and Scalp: normal to inspection Nose: external nose normal General Ear: hearing grossly impaired External Ear: external ears normal Eyes PERRL General Eye: normal appearance of both eyes Neck full ROM Lymph Lymphatic: no lymphadenopathy noted Resp normal respiratory effort Effort and Inspection: able to speak in complete sentences Auscultation: clear to auscultation bilaterally Cardio regular rate and regular rhythm Palpation: normal PMI Rate: regular rate Rhythm: regular rhythm GI Inspection: pannus present and other Other Details: Large pannus with pendulous abdomen Auscultation: normoactive bowel sounds Palpation: soft and no hepatosplenomegaly Extremity General Extremity: normal exam except as noted Skin Wounds: wounds noted Wound Narrative: Left groin open wounds and erythematous area noted to real depth tunneling between the 2 adjacent to each other. Neuro oriented x3 Psych Appearance: grossly normal Speech: normal speech Thought Content: normal thought content Judgement: judgement good Debridement Note Debridement Note Wound debrided: Left groin wound nonhealing Type of Debridement: Excisional debridement Anesthesia Used: 5% Lidocaine Gel Depth: Down to and including healthy tissue Percentage of wound debrided: 100 Instrument Used: 3mm curette Tissue Removed: Fibrin Severity: Fat Layer Exposed Amount of bleeding with debridement: Mild Bleeding Controlled with: Compression and gauze Patient tolerated procedure: Patient tolerated procedure well Post-Debridement Measurements and Additional Note: Post-Debridement Measurements/Treatment - Nurse 1 - General Ulcer Assessment Start: 06/01/22 09:06 Freq: Status: Active Protocol: DIDIER Activity Type Activity Date Activity User E-sign Co-sign Detail Recorded Client Recorded Date Recorded By Document 06/01/22 09:06 DAI [id number] 06/01/22 09:09 DAI 06/01/22 09:06 WC - Today's Visit Information Type of service 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 Any new allergies or adverse reactions No Had a fall/change in ADL's that may No increase risk of falls Signs or symptoms of abuse and/or No neglect since last visit Have you been in the hospital since your No last visit? Has dressing in place as prescribed Yes Has compression in place as prescribed N/A Has offloadiing in place as prescribed N/A Experienced any changes in pain level or No management Left Footwear Regular Shoe Right Footwear Regular Shoe Pain Scale: 0-10 Numeric Is Patient Pain Free? Yes - Nurse 1 - General Ulcer Measurement Start: 06/01/22 09:06 Freq: Status: Active Protocol: Activity Type Activity Date Activity User E-sign Co-sign Detail Recorded Client Recorded Date Recorded By Document 06/01/22 09:06 AK [id number] 06/01/22 09:09 AK 06/01/22 09:06 Wound Center Nurse 1 #2 L GROIN -Combined with other wound No -Current Size (cm) - Length 0.3 -Current Size (cm) - Width 0.3 -Current Size (cm) - Depth 0.1 -Total Square Cm 0.09 -Date of Last Picture (Recall this 06/01/22 field) -Photo Taken Yes -Tunneling No -Undermining/Tunneling No -Circular Undermining No -Change in Wound Grade/Stage No -Exudate Amt Medium -Exudate Type Serosanguineous -Wound Margin Distinct, Outline Attached -Granulation Amt Large (67-100%) -Granulation Quality Red -Slough/Fibrin No -Necrosis Amt None Present (0 %) -Structure Exposed N/A -Texture (Mayela-wound Skin Appearance) No Abnormality, Assessed -Moisture (Mayela-wound Skin Appearance) No Abnormality, Assessed -Color (Mayela-wound Skin Appearance) No Abnormality, Assessed -Temperature (Mayela-wound Skin No Abnormality Appearance) (Pt Warm) -Tenderness on Palpation (Mayela-wound No Skin Appearance) -Ulcer Cleansing Rinsed/ Irrigated with Saline -Foul Odor after Cleansing No -Anesthetic Used 4% Lidocaine Solution 06/01/22 09:08 Wound Center by Abdulaziz Drake Pain 7-10 in left shoulder and hip Initialized on 06/01/22 09:08 - END OF NOTE WC - Nurse 2 - General Ulcer CM Notes Start: 06/01/22 09:06 Freq: Status: Active Protocol: Activity Type Activity Date Activity User E-sign Co-sign Detail Recorded Client Recorded Date Recorded By Document 06/01/22 09:27 MW [id number] 06/01/22 09:30 MW 06/01/22 09:27 Wound Center Nurse 2 -Time 09:28 -Correct Patient Yes -Correct Side, Site, Position Yes -Correct Procedure Yes -Procedure Performed Yes -Type of Procedure Debridement -Clinical Debridement Subcutaneous -Tissue Removed Subcutaneous -Post Debridement (cm) - Length 0.8 -Post Debridement (cm) - Width 0.5 -Post Debridement (cm) - Depth 0.3 -Total Square (Post) (cm) 0.40 -Area of Debridement (cm) - Length 0.8 -Area of Debridement (cm) - Width 0.5 -Total Square (Area) (cm) 0.40 -Tunneling No -Undermining/Tunneling No -Circular Undermining No -Wound/Ulcer Outcome Not Healed -Ulcer Cleansing Rinsed/ Irrigated with Saline -Foul Odor after Cleansing No -Bioengineered Tissue No -Bleeding Controlled with Pressure -Treatment Response Procedure Tolerated Well -Offloading No -Debridement - Subq, 1st 20sq cm Yes Pain Scale: 0-10 Numeric Is Patient Pain Free? Yes - Nurse 3 - General Ulcer D/C NN Start: 06/01/22 09:06 Freq: Status: Active Protocol: Activity Type Activity Date Activity User E-sign Co-sign Detail Recorded Client Recorded Date Recorded By Document 06/01/22 09:30 MW [id number] 06/01/22 09:31 MW 06/01/22 09:30 Wound Care Center Nurse 3 #2 L GROIN -Ulcer Cleansing Rinsed/ Irrigated with Saline -Foul Odor after Cleansing No -Negative Pressure Wound Therapy N/A -Primary Dressing Applied Aquacel Extra -Other Covering abd pad -Aquacel Extra 1 Pain Scale: 0-10 Numeric Is Patient Pain Free? Yes Teaching: Wound Center Dressing Your Wound -Person Taught Patient -Teaching Method Discussion, Demonstration -Response to teaching Verbalize understanding WC - Visit Discharge Discharge Condition Stable Ambulatory Status Ambulatory Transportation Private Auto Accompanied by self Medication Reconcilliation completed & No provided to patient/care provider Clinical Summary of Care Provided Yes Assessment/Plan Assessment/Plan (1) Nonhealing nonsurgical wound: CODE(S): T14.8XXA - Other injury of unspecified body region, initial encounter (2) Hidradenitis: CODE(S): L73.2 - Hidradenitis suppurativa PLAN: Plan Wash the area with antibacterial soap and pat dry apply Aquacel extra to wound base cover with dressing and ABD This is a daily dressing Finish Flagyl and antibiotic therapy Follow-up in 2 week
[2022-06-15 09:06] VITALS: BP 181/60; PULSE 67; RESP 18; TEMP 35.6; BMI 53.5
--- NOTE | 2022-06-15 09:39 | PN.PCM_ITS ---
History of Present Illness Date of Service: 06/15/22 Chief Complaint: Follow-up on left groin open wound nonhealing History of Wound: 57-year-old white obese female, develops open sores in her groin mostly in the same spot all the time. She states after a period of time they heal up on their own. She saw Dr. Stapleton general surgeon who discussed with she was not really a good surgical candidate because it would make a huge hole if he was trying to remove it. He feels it might be hidradenitis and had her referred to the wound center. There was no tunneling noted some hyper granulating tissue but she does have 2 open areas and that left groin area. With some erythematous areas around it. Will refer to dermatology to see if she would be a candidate for injections for the hidradenitis if that is possible. In the meantime we will continue seeing her for wound care Progress of Wound: Today the wound looks smaller and healing well she had a couple of bacteria is growing and is on 2 different antibiotic and antimicrobial tolerating well. Should heal well using the Aquacel extra. The area had to actually open areas with skin in between it was almost like a little tunnel. That is all healed she is down to 1 area that is superficial. Patient should be able to heal in within the next week or so we will follow-up in 2 weeks Subjective Subjective Patient is very pleased with outcomes Objective Data Objective Data We will continue using the Aquacel extra to the area and keep an eye on infectio n. Did have a reaction to the levothyroxine and we will need to put that on her allergy list. Vital Signs: Vital Signs Temp Pulse Resp BP 96.1 F L 67 18 181/60 H 06/15/22 09:06 06/15/22 09:06 06/15/22 09:06 06/15/22 09:06 Weight: 342 lb Body Mass Index (BMI) 53.5 Lab / Micro Data Attestation: I reviewed the patient's lab results. Physical Exam Const oriented x3 General Appearance: cooperative Exam Limitations: no limitations HEENT normocephalic Head and Scalp: normal to inspection Nose: external nose normal General Ear: hearing grossly impaired External Ear: external ears normal Eyes PERRL General Eye: normal appearance of both eyes Neck full ROM Lymph Lymphatic: no lymphadenopathy noted Resp normal respiratory effort Effort and Inspection: able to speak in complete sentences Auscultation: clear to auscultation bilaterally Cardio regular rate and regular rhythm Palpation: normal PMI Rate: regular rate Rhythm: regular rhythm GI Inspection: pannus present and other Other Details: Large pannus with pendulous abdomen Auscultation: normoactive bowel sounds Palpation: soft and no hepatosplenomegaly Extremity General Extremity: normal exam except as noted Skin Wounds: wounds noted Wound Narrative: Left groin open wounds and erythematous area noted to real depth tunneling between the 2 adjacent to each other. Neuro oriented x3 Psych Appearance: grossly normal Speech: normal speech Thought Content: normal thought content Judgement: judgement good Debridement Note Debridement Note Wound debrided: Left groin nonhealing wound Laterality: Left Type of Debridement: Excisional debridement Anesthesia Used: 5% Lidocaine Gel Depth: Down to and including healthy tissue and in the subcutaneous layer Percentage of wound debrided: 100 Instrument Used: 5mm curette Tissue Removed: Fibrin Severity: Limited To Skin Breakdown Amount of bleeding with debridement: Mild Bleeding Controlled with: Compression and gauze Patient tolerated procedure: Patient tolerated procedure well Post-Debridement Measurements and Additional Note: Post-Debridement Measurements/Treatment - Nurse 1 - General Ulcer Assessment Start: 06/01/22 09:06 Freq: Status: Active Protocol: DIDIER Activity Type Activity Date Activity User E-sign Co-sign Detail Recorded Client Recorded Date Recorded By Document 06/01/22 09:06 SD [id number] 06/01/22 09:09 AK Document 06/15/22 09:06 ML [id number] 06/15/22 09:11 ML 06/01/22 06/15/22 09:06 09:06 - Today's Visit Information Type of service Follow-up Visit Follow-up Visit (Physician/LOADER OPERATOR/GROUND LEADER (Physician/LOADER OPERATOR/GROUND LEADER ) ) Arrival Mode Ambulatory Ambulatory Transfer Assistance None Patient Identification Verified (Name & Yes Yes ) Patient Requires Transmission-Based No No Precautions Safety Precautions NA NA Height and Weight Body Mass Index (BMI) 53.5 53.5 BMI Classification Obese Obese Vital Signs Temperature (97.8 F-99.1 F) 97.2 F L 96.1 F L Temperature Source Temporal Temporal Pulse Rate (60-100) 66 67 Pulse Location Monitor Respiratory Rate (12-18) 18 Respiratory rate source Observation Blood Pressure (90/60-120/80) 189/71 H 181/60 H Blood Pressure Mean (mm Hg) 110 100 Source Monitor Monitor Position Sitting Blood Pressure Location Right Arm History Since Last Visit- (Skip if this is Patient's initial visit) Have you changed medications since your No No last visit? Any new allergies or adverse reactions No No Had a fall/change in ADL's that may No No increase risk of falls Signs or symptoms of abuse and/or No No neglect since last visit Have you been in the hospital since your No No last visit? Has dressing in place as prescribed Yes Yes Has compression in place as prescribed N/A N/A Has offloadiing in place as prescribed N/A N/A Experienced any changes in pain level or No No management Left Footwear Regular Shoe Regular Shoe Right Footwear Regular Shoe Regular Shoe Pain Scale: 0-10 Numeric Is Patient Pain Free? Yes Yes WC - Nurse 1 - General Ulcer Measurement Start: 06/01/22 09:06 Freq: Status: Active Protocol: Activity Type Activity Date Activity User E-sign Co-sign Detail Recorded Client Recorded Date Recorded By Document 06/01/22 09:06 AK [id number] 06/01/22 09:09 AK Document 06/15/22 09:06 ML [id number] 06/15/22 09:11 ML 06/01/22 06/15/22 09:06 09:06 Wound Center Nurse 1 #2 L GROIN -Combined with other wound No -Current Size (cm) - Length 0.3 0.4 -Current Size (cm) - Width 0.3 0.4 -Current Size (cm) - Depth 0.1 0.2 -Total Square Cm 0.09 0.16 -Date of Last Picture (Recall this 06/01/22 field) -Photo Taken Yes -Tunneling No -Undermining/Tunneling No -Circular Undermining No -Change in Wound Grade/Stage No -Exudate Amt Medium Small -Exudate Type Serosanguineous Serosanguineous -Wound Margin Distinct, Distinct, Outline Outline Attached Attached -Granulation Amt Large (67-100%) -Granulation Quality Red -Slough/Fibrin No -Necrosis Amt None Present (0 Small (1-33%) %) -Necrotic Tissue Type Adherent Slough -Structure Exposed N/A -Texture (Mayela-wound Skin Appearance) No Abnormality, Assessed Assessed -Moisture (Mayela-wound Skin Appearance) No Abnormality, Assessed Assessed -Color (Mayela-wound Skin Appearance) No Abnormality, Assessed Assessed -Temperature (Mayela-wound Skin No Abnormality No Abnormality Appearance) (Pt Warm) (Pt Warm) -Tenderness on Palpation (Mayela-wound No Yes Skin Appearance) -Ulcer Cleansing Rinsed/ Rinsed/ Irrigated with Irrigated with Saline Saline -Foul Odor after Cleansing No No -Anesthetic Used 4% Lidocaine 5% Lidocaine Solution Gel 06/01/22 09:08 Wound Center by Abdulaziz Drake Pain 7-10 in left shoulder and hip Initialized on 06/01/22 09:08 - END OF NOTE WC - Nurse 2 - General Ulcer CM Notes Start: 06/01/22 09:06 Freq: Status: Active Protocol: Activity Type Activity Date Activity User E-sign Co-sign Detail Recorded Client Recorded Date Recorded By Document 06/01/22 09:27 MW [id number] 06/01/22 09:30 MW Document 06/15/22 09:28 MW [id number] 06/15/22 09:30 MW 06/01/22 06/15/22 09:27 09:28 Wound Center Nurse 2 #2 L GROIN -Time 09:28 09:28 -Correct Patient Yes Yes -Correct Side, Site, Position Yes Yes -Correct Procedure Yes Yes -Procedure Performed Yes Yes -Type of Procedure Debridement Debridement -Clinical Debridement Subcutaneous Subcutaneous -Tissue Removed Subcutaneous Subcutaneous -Post Debridement (cm) - Length 0.8 0.6 -Post Debridement (cm) - Width 0.5 0.6 -Post Debridement (cm) - Depth 0.3 0.1 -Total Square (Post) (cm) 0.40 0.36 -Area of Debridement (cm) - Length 0.8 0.6 -Area of Debridement (cm) - Width 0.5 0.6 -Total Square (Area) (cm) 0.40 0.36 -Tunneling No No -Undermining/Tunneling No No -Circular Undermining No No -Wound/Ulcer Outcome Not Healed Not Healed -Ulcer Cleansing Rinsed/ Rinsed/ Irrigated with Irrigated with Saline Saline -Foul Odor after Cleansing No No -Bioengineered Tissue No No -Bleeding Controlled with Pressure Pressure -Treatment Response Procedure Procedure Tolerated Well Tolerated Well -Offloading No No -Debridement - Subq, 1st 20sq cm Yes Yes Pain Scale: 0-10 Numeric Is Patient Pain Free? Yes Yes - Nurse 3 - General Ulcer D/C NN Start: 06/01/22 09:06 Freq: Status: Active Protocol: Activity Type Activity Date Activity User E-sign Co-sign Detail Recorded Client Recorded Date Recorded By Document 06/01/22 09:30 MW [id number] 06/01/22 09:31 MW 06/01/22 09:30 Wound Care Center Nurse 3 #2 L GROIN -Ulcer Cleansing Rinsed/ Irrigated with Saline -Foul Odor after Cleansing No -Negative Pressure Wound Therapy N/A -Primary Dressing Applied Aquacel Extra -Other Covering abd pad -Aquacel Extra 1 Pain Scale: 0-10 Numeric Is Patient Pain Free? Yes Teaching: Wound Center Dressing Your Wound -Person Taught Patient -Teaching Method Discussion, Demonstration -Response to teaching Verbalize understanding WC - Visit Discharge Discharge Condition Stable Ambulatory Status Ambulatory Transportation Private Auto Accompanied by self Medication Reconcilliation completed & No provided to patient/care provider Clinical Summary of Care Provided Yes Assessment/Plan Assessment/Plan (1) Nonhealing nonsurgical wound: CODE(S): T14.8XXA - Other injury of unspecified body region, initial encounter (2) Hidradenitis: CODE(S): L73.2 - Hidradenitis suppurativa PLAN: Plan Wash the area with antibacterial soap and pat dry apply Aquacel extra to wound base cover with dressing and ABD This is a daily dressing Follow-up in 2 week
== END 2022-06-28 23:59 | disposition home or self-care (01) ==
LOC: WC 09:00
PROVIDERS: PCP Family Medicine; Visit Provider Nurse Practitioner
DX: T81.89XA Other complications of procedures, not elsewhere classified, initial encounter (principal); S31.104A Unspecified open wound of abdominal wall, left lower quadrant without penetration into peritoneal cavity, initial encounter; L73.2 Hidradenitis suppurativa; X58.XXXA Exposure to other specified factors, initial encounter
CPT/HCPCS: 11042

== ENCOUNTER 2022-06-29 09:03 | Outpatient (RCR) | payer MEDICARE, SELFPAY ==
[2022-06-29 00:28] VITALS: BP 181/60; PULSE 67; RESP 18; TEMP 35.6; BMI 53.5
[2022-06-29 09:03] VITALS: BP 147/66; PULSE 62; RESP 16; TEMP 35.7; BMI 53.5
--- NOTE | 2022-06-29 10:10 | PCM.WC.PN ---
History of Present Illness Date of Service: 06/29/22 Chief Complaint: Follow-up on left groin open wound nonhealing History of Wound: 57-year-old white obese female, develops open sores in her groin mostly in the same spot all the time. She states after a period of time they heal up on their own. She saw Dr. Stapleton general surgeon who discussed with she was not really a good surgical candidate because it would make a huge hole if he was trying to remove it. He feels it might be hidradenitis and had her referred to the wound center. There was no tunneling noted some hyper granulating tissue but she does have 2 open areas and that left groin area. With some erythematous areas around it. Will refer to dermatology to see if she would be a candidate for injections for the hidradenitis if that is possible. In the meantime we will continue seeing her for wound care Progress of Wound: The groin wound is completely healed and skin is normal no sign and I suggested that she does not have hidradenitis at all. Just gets horrible fungal infections that breaks the skin down from moisture. Subjective Subjective Patient was very pleased with outcomes Objective Data Objective Data Patient will be discharged from the wound center and she may follow-up as needed. We suggested for her pendulous abdomen did place a folded pillowcase underneath her abdomen to hold the moisture daily. We also suggested she can use the Zesorb antifungal powder under her abdomen folds to keep the moisture down with a folded pillowcase. Vital Signs: Vital Signs Temp Pulse Resp BP O2 Del Method 96.2 F L 62 16 147/66 H Room Air 06/29/22 09:03 06/29/22 09:03 06/29/22 09:03 06/29/22 09:03 06/29/22 09:03 Oxygen Delivery Method Room Air Weight: 342 lb Body Mass Index (BMI) 53.5 Lab / Micro Data Attestation: I reviewed the patient's lab results. Physical Exam Const oriented x3 General Appearance: cooperative Exam Limitations: no limitations HEENT normocephalic Head and Scalp: normal to inspection Nose: external nose normal General Ear: hearing grossly impaired External Ear: external ears normal Eyes PERRL General Eye: normal appearance of both eyes Neck full ROM Lymph Lymphatic: no lymphadenopathy noted Resp normal respiratory effort Effort and Inspection: able to speak in complete sentences Auscultation: clear to auscultation bilaterally Cardio regular rate and regular rhythm Palpation: normal PMI Rate: regular rate Rhythm: regular rhythm GI Inspection: pannus present and other Other Details: Large pannus with pendulous abdomen Auscultation: normoactive bowel sounds Palpation: soft and no hepatosplenomegaly Extremity General Extremity: normal exam except as noted Skin Wounds: wounds noted Wound Narrative: Left groin open wounds and erythematous area noted to real depth tunneling between the 2 adjacent to each other. Neuro oriented x3 Psych Appearance: grossly normal Speech: normal speech Thought Content: normal thought content Judgement: judgement good Debridement Note Debridement Note No debridement was completed: No debridement was completed today Post-Debridement Measurements and Additional Note: Post-Debridement Measurements/Treatment - Nurse 1 - General Ulcer Assessment Start: 06/29/22 09:03 Freq: Status: Active Protocol: WC.LOWEXT Activity Type Activity Date Activity User E-sign Co-sign Detail Recorded Client Recorded Date Recorded By Document 06/29/22 09:03 [facility] [id number] 06/29/22 09:16 [facility] 06/29/22 09:03 - Today's Visit Information Type of service Follow-up Visit (Physician/AGENT ) Arrival Mode Ambulatory Transfer Assistance None Patient Identification Verified (Name & Yes ) Patient Requires Transmission-Based No Precautions Height and Weight Body Mass Index (BMI) 53.5 BMI Classification Obese Vital Signs Temperature (97.8 F-99.1 F) 96.2 F L Temperature Source Temporal Pulse Rate (60-100 beats/min) 62 Pulse Location Monitor Respiratory Rate (12-18 breaths/min) 16 Respiratory rate source Observation Oxygen Delivery Method Room Air Blood Pressure (90/60-120/80 mm Hg) 147/66 H Blood Pressure Mean (mm Hg) 93 Source Monitor Position Sitting Blood Pressure Location Right Arm History Since Last Visit- (Skip if this is Patient's initial visit) Have you changed medications since your No last visit? Any new allergies or adverse reactions No Had a fall/change in ADL's that may No increase risk of falls Signs or symptoms of abuse and/or No neglect since last visit Have you been in the hospital since your No last visit? Has dressing in place as prescribed Yes Has compression in place as prescribed N/A Has offloadiing in place as prescribed N/A Experienced any changes in pain level or No management Left Footwear Regular Shoe Right Footwear Regular Shoe Pain Scale: 0-10 Numeric Is Patient Pain Free? Yes ANGÉLICA - Nurse 1 - General Ulcer Measurement Start: 06/29/22 09:03 Freq: Status: Active Protocol: Activity Type Activity Date Activity User E-sign Co-sign Detail Recorded Client Recorded Date Recorded By Document 06/29/22 09:03 [facility] [id number] 06/29/22 09:16 [facility] 06/29/22 09:03 Wound Center Nurse 1 #2 L GROIN -Combined with other wound No -Current Size (cm) - Length 0 -Current Size (cm) - Width 0 -Current Size (cm) - Depth 0 -Total Square Cm 0 -Date of Last Picture (Recall this 06/29/22 field) -Photo Taken Yes -Epithelialization Large 67-100% -Tunneling No -Undermining/Tunneling No -Circular Undermining No -Exudate Amt None Present -Wound Margin Distinct, Outline Attached -Texture (Mayela-wound Skin Appearance) Assessed -Moisture (Mayela-wound Skin Appearance) Assessed -Color (Mayela-wound Skin Appearance) Assessed -Temperature (Mayela-wound Skin No Abnormality Appearance) (Pt Warm) -Tenderness on Palpation (Mayela-wound No Skin Appearance) -Ulcer Cleansing Rinsed/ Irrigated with Saline -Foul Odor after Cleansing No WC - Nurse 2 - General Ulcer CM Notes Start: 06/29/22 09:03 Freq: Status: Active Protocol: Activity Type Activity Date Activity User E-sign Co-sign Detail Recorded Client Recorded Date Recorded By Document 06/29/22 09:28 [id number] 06/29/22 09:31 MW 06/29/22 09:28 Wound Center Nurse 2 -Time 09:29 -Correct Patient Yes -Correct Side, Site, Position Yes -Correct Procedure Yes -Procedure Performed No -Post Debridement (cm) - Length 0 -Post Debridement (cm) - Width 0 -Post Debridement (cm) - Depth 0 -Total Square (Post) (cm) 0 -Wound/Ulcer Outcome Healed- Epithelialized Pain Scale: 0-10 Numeric Is Patient Pain Free? Yes ANGÉLICA - Nurse 3 - General Ulcer D/C NN Start: 06/29/22 09:03 Freq: Status: Active Protocol: Activity Type Activity Date Activity User E-sign Co-sign Detail Recorded Client Recorded Date Recorded By Document 06/29/22 09:31 MW [id number] 06/29/22 09:32 MW 06/29/22 09:31 Wound Care Center Nurse 3 Treatment Response Procedure Tolerated Well Pain Scale: 0-10 Numeric Is Patient Pain Free? Yes Teaching: Wound Center Discharge Instructions -Person Taught Patient -Teaching Method Discussion -Response to teaching Verbalize understanding WC - Visit Discharge Discharge Condition Stable Ambulatory Status Ambulatory Transportation Private Auto Accompanied by self Medication Reconcilliation completed & No provided to patient/care provider Clinical Summary of Care Provided Yes Assessment/Plan Assessment/Plan (1) Nonhealing nonsurgical wound: CODE(S): T14.8XXA - Other injury of unspecified body region, initial encounter (2) Hidradenitis: CODE(S): L73.2 - Hidradenitis suppurativa PLAN: Plan Patient is healed and will be discharged from the wound center and she may follow-up as needed Made suggestions on paper about different ways of keeping the moisture under her abdomen
== END 2022-07-29 23:59 | disposition home or self-care (01) ==
LOC: WC 09:03
PROVIDERS: PCP Family Medicine; Visit Provider Nurse Practitioner
DX: Z09 Encounter for follow-up examination after completed treatment for conditions other than malignant neoplasm (principal); Z79.01 Long term (current) use of anticoagulants; Z79.899 Other long term (current) drug therapy
CPT/HCPCS: 99213; G0463

== ENCOUNTER 2022-07-15 10:30 | Outpatient (RCR) | payer MEDICARE, SELFPAY ==
--- NOTE | 2022-06-15 16:07 | HP.PTEVAL_ITS ---
Patient's Visit Information MORENA MARTINEZ is a 57 year old F referred to Physical Therapy by Dr. Lisette Banks DO with a diagnosis of Frozen L shoulder after levaquin. Date of Evaluation: 06/15/22 Physical Therapist: Jaleel Badillo, DPT, OCS, CSCS - Visit Plan Frequency: 3x /Week Duration: 4-6 Weeks Plan: 3x/week x 4 weeks for aquatic therapy as ordered for PROM and AAROM L shoulder and elbow and strengthening L shoulder and scap, general movement upper half. To tolerance, very inflammed today adn given pendulum and scap circles as HEP - Subjective l shoulder hurts into upper arm. Maybe start of frozen shoulder. Was on leva pramod for bacterial infection. Just had surgery on it last august RCR. It was doing well until started levaquin and then it has hurt for a month. it hurt all the time to start, now mostly if she hits it or tries to lift it. Hurts to sweep, get things in and out of oven, can't wash hair, can't reach behind her.Hurts constantly for a month. It is hard to fall asleep and cannot stay asleep, sleeping on back. Disability from knee and other things. Spends day crocheting but cannot now, hard to do photography now with shoulder. Walks sons dog and can do that. Walks a little bit. Is R handed. No regular exercise otherwise. Basic ADLs at home are hard to dress due to L hand, hurts to use L UE and challenging. - Pain L shoulder Pain Intensity (Out of 10): 3 Pain Intensity Range: 1, 6 Comment: , worse with lifting. - Objective Walks back to therapy I, [facility] chair I, needs assist up from bed. Holding L UE protected to avoid movement throughout. neck and scapular ROm is normal and feels good. thumb movement WNL B. R sided shoulder and elbow AROM WFL and painfree. L sided elbow is hesitant with flexion and full extension due to pain but has full motion today. Shoulder aROM flexion L 50, abduction 45, ext rotation not even to neutral, IR to psis slolwy and painful. PROM L shoulder 90 flexion adn abduction without endfeel other than pain today, very protected. Ext rotation to neutral with pain empty end feel. reflexes 2/3 patella and achilles. Sensation UE WNL to gross light touch. Very inflammed L shoulder which is hard to perform any special tests on. - Balance/Special Test Scores Quick DASH Score: 65.9075 - Goals Goal 1:: Painfree L shoulder at rest and only 4/10 with movement Goal Time Frame: 4-6 Weeks Goal 2:: Pain 75% improved by patient report Goal Time Frame: 4-6 Weeks Goal 3:: AROM L shoulder to 130 elevation Goal Time Frame: 4-6 Weeks Goal 4:: resume aDLs including doing hair and sweeping without hesitation. Goal Time Frame: 4-6 Weeks Goal 5:: quickdash score28 or better Goal Time Frame: 4-6 Weeks - Rehabilitation Potential Physical Therapy Diagnosis: L shoulder inflammation and difficulty with movement Rehabilitation Potential: Questionable - Anticipated Interventions Patient/Client Instruction: Educate patient on: Condition, Plan of Care For the Purpose of:: To decrease pain, To decrease swelling/inflammation, To increase ROM, To improve nutrient delivery to tissue, To improve muscle performance and motor function, To increase tolerance to activity/condition/position Therapeutic Exercise to Include: Strength training, Postural training, Flexibilty training, In an aquatic setting, Passive ROM, Active ROM, Scapular Strength/Stabilization For the Purpose of:: To decrease pain, To decrease swelling/inflammation, To increase ROM, To improve nutrient delivery to tissue, To improve muscle performance and motor function Thank you for the opportunity to evaluate your patient. For Medicare and Medicare HMO plans, please review the plan of care and approve it. It will need to be FAXED BACK to us at [phone] for Medicare purposes. For Medicare only, by signing this I certify the plan of care. Please let me know if there are questions or concerns regarding this plan of care. Physician Signature: Date:
--- NOTE | 2022-07-15 10:57 | HP.PTDCSUM_ITS ---
It has been my pleasure to treat MORENA MARTINEZ referred by Dr. Lisette Banks DO, with the diagnosis of Frozen L shoulder after levaquin for a total of 10 visit(s). Discharge Date: 07/15/22 Please see the following information for a summary of their discharge status. Subjective: Not overly helpful. Sleep is not great, hard to get L arm comfort able. Activities are same as day one. pain L shoulder distal to shoulder 1- 01/08. Worse after therapy even in the water. F/u with doctor in July possibly for injection. Doing ROM exercises at home L shoulder Pain Intensity (Out of 10): 2 % Improvement: 10 Objective/Function: 80 flexion and 70 abduction and neutral L ext rotation and PSIS IR all limited by pain. ROM slightly better but pain overall is intolerable and patient goes into spasms as soon as we get to her PROM limit which is similar to aROM L side. frustrated with pain level and losing sleep and difficulty with hobbies./ Will contact doctor to see if she can move up appointment. Goal 1:: Painfree L shoulder at rest and only 4/10 with movement Goal Progress: Not Progressing Goal 2:: Pain 75% improved by patient report Goal Progress: Not Progressing Goal 3:: AROM L shoulder to 130 elevation Goal 4:: resume aDLs including doing hair and sweeping without hesitation. Goal Progress: Not Progressing Goal 5:: quickdash score28 or better Goal Progress: Not Progressing Plan: d/c, pt to contact doctor to move up next step due to lack of progress. Discharge Comments: Pt to return to doctor for next step, will continue home ROM ex in meantime. If there are questions or concerns regarding this patient's physical therapy, please feel free to call me at [phone]. Thank you for the referral of this patient. Sincerely, Jaleel Badillo, DPT, OCS, CSCS Balance/Gait/Functional tests - Balance/Special Test Scores Quick DASH Score: 68.1800
== END 2022-07-15 12:16 | disposition home or self-care (01) ==
LOC: PT 10:30
PROVIDERS: PCP Family Medicine; Referring Provider Orthopaedic Surgery; Visit Provider Orthopaedic Surgery
DX: M75.02 Adhesive capsulitis of left shoulder (principal)
CPT/HCPCS: 97113; 97161; 97164

== ENCOUNTER → 2023-06-28 | Outpatient (CLI) | payer MEDICARE, SELFPAY | END | disposition home or self-care (01) | LOC: LABSPEC 15:50 | PROVIDERS: PCP Family Medicine; Referring Provider Otolaryngology Otolaryngology/Facial Plastic Surgery; Visit Provider Otolaryngology Otolaryngology/Facial Plastic Surgery | DX: J32.9 Chronic sinusitis, unspecified (principal) | CPT/HCPCS: 87070; 87077; 87205 ==

== ENCOUNTER 2023-11-11 08:08 | Emergency (ER) | payer MEDICARE, SELFPAY ==
[2023-11-11 08:11] VITALS: BP 148/90; PULSE 66; RESP 14; TEMP 35.9; O2SAT 100; BMI 53.5
[2023-11-11 08:12] VITALS: BP 148/90; PULSE 66; RESP 14; TEMP 35.9; O2SAT 100
--- NOTE | 2023-11-11 08:43 | ED.VIS.LOWEX ---
HPI History of Present Illness Chief Complaint: Wound Narrative Narrative: 58-year-old female past medical history of chronic lymphedema, on Lasix, diabetes, presents with injury to her left lower extremity, along with redness that she has had over the last week. She states that approximately a week ago, she was taking down a bird feeder, and it fell out of her hands, striking her left lower extremity/anterior tibial area. While that has been healing, the other day, she took the Band-Aids off of the area and sustained some skin tears that are now draining clear fluid. There may be increased redness in these areas as well. She denies any fevers or chills, no nausea or vomiting, no other symptoms. [facility] Medical History s/p elbow Home Medications ?Medication ?Instructions ?Recorded ?Last Taken ?Type lisinopril 20 mg tablet 10 mg PO DAILY 08/07/13 02/21/18 05:00 History warfarin 7.5 mg tablet 7.5 mg PO DAILY 08/07/13 02/15/18 History acetaminophen 300 mg-codeine 60 mg 1 ea PO Q4H PRN PRN Pain 02/02/16 02/04/16 History tablet atenolol 25 mg tablet 50 mg PO DAILY 02/02/16 07/09/18 History gabapentin 100 mg capsule 300 mg PO QHS 02/02/16 02/04/16 History furosemide 20 mg tablet 40 mg PO DAILY PRN PRN Swelling 02/05/16 02/03/16 History tizanidine 4 mg tablet 4 mg PO QHS 02/14/18 Unknown History sitagliptin phosphate 25 mg tablet mg PO DAILY 05/18/22 Unknown History (Januvia) cephalexin 500 mg capsule 500 mg PO Q6 #40 CAPSULES 11/11/23 Unknown Rx Allergy/AdvReac Type Severity Reaction Status Date / Time enoxaparin sodium (From Allergy Rash Verified 11/11/23 08:09 Lovenox) erythromycin lactobionate Allergy Rash Verified 11/11/23 08:09 (From Erythrocin) Latex, Natural Rubber Allergy Rash Verified 11/11/23 08:09 rofecoxib (From Vioxx) Allergy Swelling Verified 11/11/23 08:09 valdecoxib (From Bextra) Allergy Rash Verified 11/11/23 08:09 amoxicillin trihydrate (From AdvReac Other Verified 11/11/23 08:09 Augmentin) ciprofloxacin AdvReac Pain in Verified 11/11/23 08:09 joints diclofenac (From Voltaren) AdvReac Swelling Verified 11/11/23 08:09 levofloxacin (From Levaquin) AdvReac Pain in Verified 11/11/23 08:09 joints potassium clavulanate (From AdvReac Other Verified 11/11/23 08:09 Augmentin) Family History Sister Heart disease Brother Heart disease Father Heart disease Mother Breast cancer Surgical History h/o right CMC joint arthroplasty S/P arthroscopy of knee H/O: hysterectomy S/P hernia repair S/P knee replacement Social History Smoking Status: Former smoker ROS ROS ED ROS Narrative Constitutional: No fever, no chills. HEENT: No sore throat. No neck pain. No loss of vision. No rhinorrhea. Cardiovascular: No chest pain. No palpitations. Chronic bilateral pedal edema. Respiratory: No cough, no shortness of breath. Abdominal: No abdominal pain. No nausea. No vomiting. Genitourinary: No dysuria. No hematuria. Musculoskeletal: No myalgias. No arthralgias. Neurologic: No headaches. No dizziness. No lightheadedness. Skin: No rash. Positive redness left lower extremity anterior tibial area. To epidermal skin tears with clear fluid drainage. Psychiatric: No depression. No anxiety. EXAM Physical Exam Narrative Exam Narrative: Afebrile. Vital signs noted. Nontoxic-appearing. Regular rate and rhythm. Lungs clear to auscultation bilaterally. Abdomen soft nontender with normoactive bowel sounds. Positive bilateral lower extremity lymphedema. Positive erythema left lower extremity anterior tibial area, no lymphangitic streaking. Palpable dorsalis pedis pulse. 1 small epidermal skin tear with clear fluid drainage, no purulent drainage. Longer epidermal skin tear below area of previous abrasion. No fluctuance or drainable abscess. Const Vital Signs: 11/11/23 08:11 11/11/23 08:11 11/11/23 08:12 Temperature 96.7 F L 96.7 F L Temperature Source Temporal Temporal Pulse Rate 66 66 66 Respiratory Rate 14 14 14 Blood Pressure 148/90 H 148/90 H 148/90 H Blood Pressure Mean 109 109 109 Pulse Ox 100 100 100 Oxygen Delivery Method Room Air Room Air Room Air MDM MDM MDM Narrative Medical decision making narrative: I reviewed the patient's prior records and found them noncontributory to her current chief complaint. I had lengthy discussion with her regarding antibiotic treatment. I feel she has more of a cellulitis. I do not feel that there is a drainable abscess. I do not feel that she requires hospitalization, IV antibiotics, or laboratory work/imaging. I think with her chronic lymphedema, given the adhesive causing epidermal skin tears, that she should change to a dry sterile dressing and tape on the outside. She has an appointment with her primary care provider on Monday, 3 days from now. I feel she merits outpatient treatment with antibiotics. I did discuss with her double coverage as she is diabetic, but she has multiple allergies and she is on warfarin, so it was decided that she has taken Keflex in the past. She was given her first dose here and prescription written to take 4 times a day for the next 10 days. I reviewed return instructions with her. She is agreeable to the plan. Disposition is discharged home in stable condition. History & Record Review Discussion w/independent historian: Patient Additional record(s) reviewed:: Prior ED visit Discharge Plan Triage Chief Complaint: Wound Other Complaint: Cellulitis ED Provider: Adriel Mac Dx/Rx/DC Orders Clinical Impression: Cellulitis of left lower leg, Lymphedema Instructions: ED Cellulitis, ED Peripheral Edema, Bilateral Prescriptions: New cephalexin 500 mg capsule 500 mg PO Q6 Qty: 40 0RF No Action warfarin 7.5 MG tablet 7.5 mg PO DAILY Patient Comments: 10 MG ON TUESDAYS Rx Instructions: MON, , MON, MON, SAT, SUN lisinopril 20 MG tablet 10 mg PO DAILY Patient Comments: BLOOD PRESSURE MEDICATION atenolol 25 MG tablet 50 mg PO DAILY Patient Comments: BLOOD PRESSURE acetaminophen-codeine 1 EACH tablet 1 ea PO Q4H PRN PRN (Reason: Pain) Patient Comments: PAIN gabapentin 100 MG capsule 300 mg PO QHS Patient Comments: NERVE PAIN furosemide 20 MG tablet 40 mg PO DAILY PRN PRN (Reason: Swelling) Patient Comments: WATER PILL tizanidine 4 MG tablet 4 mg PO QHS Januvia 25 mg Tablet PO DAILY Primary Care Provider: Jonh Cha Referrals: Jonh Cha MD [Primary Care Provider] - Keep Jr appointment Print Language: Korean Disposition Disposition: Home, Self Care
[2023-11-11] MEDS: Cephalexin 250 MG Capsule 500 MG PO (09:19)
== END 2023-11-11 09:30 | disposition home or self-care (01) ==
PROVIDERS: Emergency Provider Emergency Medicine; PCP Family Medicine; Visit Provider Emergency Medicine
DX: L03.116 Cellulitis of left lower limb (principal); E11.9 Type 2 diabetes mellitus without complications; Z87.891 Personal history of nicotine dependence; I89.0 Lymphedema, not elsewhere classified; Z79.899 Other long term (current) drug therapy; Z79.01 Long term (current) use of anticoagulants
CPT/HCPCS: 99282

== ENCOUNTER 2024-10-20 11:13 | Emergency (ER) | payer MEDICARE, SELFPAY ==
[2024-10-20 11:14] VITALS: BP 172/73; PULSE 74; RESP 16; TEMP 36.6; O2SAT 97; BMI 52.7
[2024-10-20 11:16] VITALS: BP 151/74; PULSE 70; RESP 14; TEMP 36.9; O2SAT 97
--- NOTE | 2024-10-20 11:30 | CT_ITS ---
PROCEDURE: ABDOMEN/PELVIS W IV CONT ONLY 10/20/2024 REASON FOR EXAM: LLQ PAIN TECHNIQUE: ABDOMEN/PELVIS W IV CONT ONLY. Coronal and Sagittal reconstruction series were provided. CONTRAST: Isovue 370 VOLUME: 100 mL One or more dose reduction techniques were used (e.g., Automated exposure control, adjustment of the mA and/or kV according to patient size, use of iterative reconstruction technique. RADIATION DOSE SUMMARY: DLP: 1200 mGycm COMPARISON: CT abdomen pelvis 02/09/2020. FINDINGS: Lung bases: Bibasilar atelectasis. The heart is normal in size. Liver: The liver is normal in size without suspicious hepatic mass. The major portal veins are patent. No biliary ductal dilation. Gallbladder: Prior cholecystectomy. Spleen: Normal in size. Pancreas: Unremarkable. Adrenals: No adrenal mass. Kidneys: Punctate nonobstructing right lower pole renal calculus. No hydronephrosis. Bladder: Decompressed. Reproductive Organs: Prior hysterectomy. Bowel: The bowel loops are nondilated. No ascites or pneumoperitoneum. No inflammatory mass in the expected region of the appendix. Mild distal colonic diverticulosis. No diverticulitis or abscess. Lymph nodes: No suspicious lymphadenopathy. Vasculature: Mild calcific plaque of the aortoiliac vessels. Indwelling suprarenal IVC filter. Bones/soft tissues: The body wall is not entirely included in the field of view due to body habitus. Mild symmetric body wall edema. Surgical mesh along the lower ventral abdominal wall. Mild thoracolumbar spondylosis. CT/Abdomen/Pelvis W IV Cont ONLY IMPRESSION: 1. No acute abdominopelvic finding. 2. Unchanged suprarenal IVC filter. Interventional radiology consultation recom mended to evaluate for replacement/removal. Reading Location: [id number]
--- NOTE | 2024-10-20 11:34 | EDS_ITS ---
HPI <LISA Lopez - Last Filed: 10/20/24 16:42> History of Present Illness Chief Complaint: General Illness Narrative Narrative: Patient presenting today due to concerns for a kidney infection. She reports that her symptoms started on with a headache. On Monday she had chills and a subjective fever. She also developed left lower quadrant abdominal pain that radiates to her left flank and nausea. She has a history of kidney stones and diverticulitis but this does not feel similar. She denies urinary symptoms, vomiting, and stool changes. She denies any family history of brain aneurysm. <Dr. Michele Hawthorne, DO - Last Filed: 10/20/24 17:43> Narrative Narrative: Patient presenting today due to concerns for a kidney infection. She reports that her symptoms started on with a headache. On Monday she had chills and a subjective fever. She also developed left lower quadrant abdominal pain that radiates to her left flank and nausea. She has a history of kidney stones and diverticulitis but this does not feel similar. She denies urinary symptoms, vomiting, and stool changes. She denies any family history of brain aneurysm. Patient denies sudden onset or thunderclap headache, denies maximal intensity within 1 minute, vomiting, neck pain, stiffness, changes in vision, fever, history malignancy, syncope, or seizures associated with headache. [facility] <LISA Lopez - Last Filed: 10/20/24 16:42> [facility] Medical History s/p elbow Home Medications ?Medication ?Instructions ?Recorded ?Last Taken ?Type warfarin 7.5 mg tablet 7.5 mg PO DAILY 08/07/13 History tizanidine 4 mg tablet 4 mg PO QHS 02/14/18 Unknown History sitagliptin phosphate 25 mg tablet mg PO DAILY 3 Unknown History (Robert) acetaminophen 300 mg-codeine 30 mg 1 tab PO BID PRN MI N pain 10/20/24 Unknown History tablet atenolol 50 mg tablet 50 mg PO DAILY 10/20/24 Unkn own History furosemide 40 mg tablet 40 mg PO DAILY 10/20/24 Unkn own History gabapentin 300 mg capsule 300 mg PO QHS 10/20/24 Unkno wn History lisinopril 10 mg tablet 10 mg PO DAILY 10/20/24 Unkn own History warfarin 5 mg tablet PO 10/20/24 Unknown History Allergy/AdvReac Type Severity Reaction Status Date / Time enoxaparin sodium (From Allergy Rash Verified 10/20/24 11:14 Lovenox) erythromycin lactobionate Allergy Rash Verified 10/20/24 11:14 (From Erythrocin) Latex, Natural Rubber Allergy Rash Verified 10/20/24 11:14 rofecoxib (From Vioxx) Allergy Swelling Verified 10/20/24 11:14 valdecoxib (From Bextra) Allergy Rash Verified 10/20/24 11:14 amoxicillin trihydrate (From AdvReac Other Verified 10/20/24 11:14 Augmentin) ciprofloxacin AdvReac Pain in Verified 10/20/24 11:14 joints diclofenac (From Voltaren) AdvReac Swelling Verified 10/20/24 11:14 levofloxacin (From Levaquin) AdvReac Pain in Verified 10/20/24 11:14 joints potassium clavulanate (From AdvReac Other Verified 10/20/24 11:14 Augmentin) Family History Sister Heart disease Brother Heart disease Father Heart disease Mother Breast cancer Surgical History h/o right CMC joint arthroplasty S/P arthroscopy of knee H/O: hysterectomy S/P hernia repair S/P knee replacement Social History Smoking Status: Former smoker ROS <LISA Lopez - Last Filed: 10/20/24 16:42> ROS ED Constitutional Constitutional ED: Reports chills; Denies fever(s) Cardiovascular Cardiovascular: Denies chest pain Respiratory/Chest Respiratory/Chest: Denies dyspnea Gastrointestinal Gastrointestinal: Reports abdominal pain and nausea; Denies constipation, diarr hea or vomiting Genitourinary Genitourinary ED: Denies dysuria, hematuria or urinary urgency Musculoskeletal Musculoskeletal: Denies arthralgias or myalgias Integumentary Denies rash Neurologic Neurologic: Denies weakness EXAM <LISA Lopez - Last Filed: 10/20/24 16:42> Physical Exam Const Vital Signs: 10/20/24 11:14 10/20/24 11:16 10/20/24 11:34 Temperature 98 F 98.4 F Temperature Source Oral Oral Pulse Rate 74 70 Respiratory Rate 16 14 Respiratory Effort Normal Non-Labored Respiratory Pattern Normal Blood Pressure 172/73 H 151/74 H Blood Pressure Mean 106 99 Pulse Ox 97 97 Oxygen Delivery Method Room Air Room Air 10/20/24 12:16 10/20/24 13:09 Temperature 98.5 F 98.4 F Temperature Source Oral Pulse Rate 63 70 Respiratory Rate 14 12 Respiratory Effort Respiratory Pattern Blood Pressure 144/73 H 146/70 H Blood Pressure Mean 96 95 Pulse Ox 97 95 Oxygen Delivery Method Room Air Positive well nourished, well developed and no apparent distress General Appearance ED: well developed HEENT Reports normocephalic and head/scalp atraumatic Mouth ED: Yes moist mucous membranes normal Eyes PERRL and EOMs intact bilaterally Neck full ROM and supple Chest Wall inspection of chest normal Resp normal respiratory effort and clear to auscultation bilaterally Cardio regular rate and regular rhythm GI soft to palpation, non-distended and no masses GI Narrative: Tenderness palpation to the left lower quadrant, no rigidity or guarding Back/Spine no CVA tenderness, normal ROM and normal to inspection Extremity normal to inspection and full ROM Neuro oriented x3, CN's II-XII intact bilaterally, moves all extremities, no focal motor deficits and no sensory deficits noted Sensorium / Orientation: awake and alert Motor Exam: strength 5/5 throughout Psych mental status grossly normal and thought process normal Skin no rashes or lesions noted and no wounds <Dr. Michele Hawthorne, DO - Last Filed: 10/20/24 17:43> Physical Exam Const Vital Signs: 10/20/24 11:14 10/20/24 11:16 10/20/24 11:34 Temperature 98 F 98.4 F Temperature Source Oral Oral Pulse Rate 74 70 Respiratory Rate 16 14 Respiratory Effort Normal Non-Labored Respiratory Pattern Normal Blood Pressure 172/73 H 151/74 H Blood Pressure Mean 106 99 Pulse Ox 97 97 Oxygen Delivery Method Room Air Room Air 10/20/24 12:16 10/20/24 13:09 Temperature 98.5 F 98.4 F Temperature Source Oral Pulse Rate 63 70 Respiratory Rate 14 12 Respiratory Effort Respiratory Pattern Blood Pressure 144/73 H 146/70 H Blood Pressure Mean 96 95 Pulse Ox 97 95 Oxygen Delivery Method Room Air [facility] <LISA Lopez - Last Filed: 10/20/24 16:42> [facility] Narrative Medical decision making narrative: Patient presenting today due to concerns for a kidney infection. She has no urinary symptoms. She has had headaches, subjective fevers and chills, and left lower quadrant abdominal pain. She does not have any meningeal signs on exam. Headache is not consistent with SAH. She has a normal neurological exam. Abdominal labs obtained, her CBC, CMP, lipase, and urinalysis are unremarkable. CT scan of the abdomen and pelvis with IV contrast obtained to assess for diverticulitis, kidney stone, pyelonephritis bowel obstruction, and other abnormality and is negative for any acute findings. She was medicated here with IV Toradol and does report improvement of her symptoms on reexamination. Recommended that she have close follow-up with her PCP and she will be discharged home in stable condition. Return instructions discussed. Lab Data Attestation: I reviewed the patient's lab results. Labs: Laboratory Results - last 24 hr 10/20/24 11:57 WBC 4.9 RBC 5.43 H Hgb 15.6 H Hct 46.1 MCV 84.9 MCH 28.7 MCHC 33.8 RDW Std Deviation 40.3 RDW Coeff of James 13.1 Plt Count 182 MPV 8.8 Immature Gran % (Auto) 0.600 Neut % (Auto) 65.6 Lymph % (Auto) 22.6 Atkinson % (Auto) 10.2 H Eos % (Auto) 0.4 Baso % (Auto) 0.6 Absolute Neuts (auto) 3.2 Absolute Lymphs (auto) 1.11 Nucleated RBC % 0 Sodium 136 Potassium 4.0 Chloride 101 Carbon Dioxide 24.8 Anion Gap 11 BUN 11 Creatinine 0.82 Estim Creat Clear Calc 112.99 Est GFR (MDRD) Non-Af 82 BUN/Creatinine Ratio 13.7 Glucose 132 H Calcium 9.0 Total Bilirubin 1.26 AST 26 ALT 27 Alkaline Phosphatase 72 Total Protein 7.3 Albumin 3.9 Globulin 3.4 Albumin/Globulin Ratio 1.1 Lipase 33 Urine Color Straw Urine Clarity Sl. Cloudy Urine pH 6.0 Ur Specific [place] 1.010 Urine Protein 15 H Urine Glucose (UA) Normal Urine Ketones Negative Urine Occult Blood Negative Urine Nitrite Negative Urine Bilirubin Negative Urine Urobilinogen Normal Ur Leukocyte Esterase 25 H Urine RBC 0 SEEN Urine WBC 0-5 SEEN Ur Squamous Epith Cells 0-5 SEEN Urine Bacteria 0 SEEN Urine Mucus 0 SEEN Radiography Diagnostic Testing: Clinical Impression(s) from Imaging Studies Abdomen/Pelvis CT 10/20/24 11:30 IMPRESSION: 1. No acute abdominopelvic finding. 2. Unchanged suprarenal IVC filter. Interventional radiology consultation recommended to evaluate for replacement/removal. Reading Location: [id number] <Dr. Michele Hawthorne, DO - Last Filed: 10/20/24 17:43> MDM MDM Narrative Medical decision making narrative: Patient presenting today due to concerns for a kidney infection. She has no urinary symptoms. She has had headaches, subjective fevers and chills, and left lower quadrant abdominal pain. She does not have any meningeal signs on exam. Headache is not consistent with SAH. She has a normal neurological exam. Abdominal labs obtained, her CBC, CMP, lipase, and urinalysis are unremarkable. CT scan of the abdomen and pelvis with IV contrast obtained to assess for diverticulitis, kidney stone, pyelonephritis bowel obstruction, and other abnormality and is negative for any acute findings. She was medicated here with IV Toradol and does report improvement of her symptoms on reexamination. Recommended that she have close follow-up with her PCP and she will be discharged home in stable condition. Return instructions discussed. ED attending note: I evaluated the patient in conjunction with the [facility]. I agree with his/her statements and above findings. I have personally performed a face to face assessment of the patient and have reviewed the [facility] Note. I performed a substantive portion of the visit including all aspects of the following. I personally saw the patient performed chart review, physical exam, reviewed labs, imaging (if obtained), and formulated a treatment and management plan. History as above. Patient denies sudden onset or thunderclap headache, denies maximal intensity within 1 minute, vomiting, neck pain, stiffness, changes in vision, fever, history malignancy, syncope, or seizures associated with headache. Exam: Alert and oriented x3, neuro exam at baseline, cranial nerves II through XII are intact. No pain with extraocular muscle movement. There is negative test of skew. 5 of 5 strength in upper and lower extremities in flexion extension. Intact sensation to light touch in upper and lower extremity dermatomes. No truncal or extremity ataxia. No dysdiadochokinesia. Normal gait. 2+ reflexes in upper and lower extremities. No meningeal signs. Negative Babinski. NIH of 0. MDM/plan: Will obtain labs, CT scan abdomen pelvis rule out intra-abdominal surgical pathology acute life-threatening etiologies. Will treat with IV Toradol and IV fluids. Will determine final disposition based on labs and images and reassessment. Terms patient reported headache. She had no headache red flags. She had nonfoc al neuroexam. Low suspicion for subarachnoid hemorrhage or severe intracranial abnormality at this time. No indication for advanced imaging at this time. This note was generated with [employer] dictation software. It may contain incorrect words, spelling, and punctuation that were not noted in review of the chart prior to signing. Lab Data Labs: Laboratory Results - last 24 hr 10/20/24 11:57 WBC 4.9 RBC 5.43 H Hgb 15.6 H Hct 46.1 MCV 84.9 MCH 28.7 MCHC 33.8 RDW Std Deviation 40.3 RDW Coeff of James 13.1 Plt Count 182 MPV 8.8 Immature Gran % (Auto) 0.600 Neut % (Auto) 65.6 Lymph % (Auto) 22.6 Atkinson % (Auto) 10.2 H Eos % (Auto) 0.4 Baso % (Auto) 0.6 Absolute Neuts (auto) 3.2 Absolute Lymphs (auto) 1.11 Nucleated RBC % 0 Sodium 136 Potassium 4.0 Chloride 101 Carbon Dioxide 24.8 Anion Gap 11 BUN 11 Creatinine 0.82 Estim Creat Clear Calc 112.99 Est GFR (MDRD) Non-Af 82 BUN/Creatinine Ratio 13.7 Glucose 132 H Calcium 9.0 Total Bilirubin 1.26 AST 26 ALT 27 Alkaline Phosphatase 72 Total Protein 7.3 Albumin 3.9 Globulin 3.4 Albumin/Globulin Ratio 1.1 Lipase 33 Urine Color Straw Urine Clarity Sl. Cloudy Urine pH 6.0 Ur Specific [place] 1.010 Urine Protein 15 H Urine Glucose (UA) Normal Urine Ketones Negative Urine Occult Blood Negative Urine Nitrite Negative Urine Bilirubin Negative Urine Urobilinogen Normal Ur Leukocyte Esterase 25 H Urine RBC 0 SEEN Urine WBC 0-5 SEEN Ur Squamous Epith Cells 0-5 SEEN Urine Bacteria 0 SEEN Urine Mucus 0 SEEN Radiography Diagnostic Testing: Clinical Impression(s) from Imaging Studies Abdomen/Pelvis CT 10/20/24 11:30 IMPRESSION: 1. No acute abdominopelvic finding. 2. Unchanged suprarenal IVC filter. Interventional radiology consultation recommended to evaluate for replacement/removal. Reading Location: [facility] Discharge Plan Triage Chief Complaint: General Illness ED Midlevel Provider: Tanja Olivas ED Provider: Michele Hawthorne Dx/Rx/DC Orders Clinical Impression: Headache, Abdominal pain Instructions: Abdominal Pain, Self-Care for Headaches Prescriptions: No Action warfarin 7.5 MG tablet 7.5 mg PO DAILY Patient Comments: 10 MG ON TUESDAYS Rx Instructions: MON, , MON, MON, SAT, SUN tizanidine 4 MG tablet 4 mg PO QHS Januvia 25 mg Tablet PO DAILY furosemide 40 mg tablet 40 mg PO DAILY acetaminophen-codeine 300-30 mg tablet 1 tab PO BID PRN PRN (Reason: pain) lisinopril 10 mg tablet 10 mg PO DAILY warfarin 5 mg tablet PO gabapentin 300 mg capsule 300 mg PO QHS atenolol 50 mg tablet 50 mg PO DAILY Primary Care Provider: Jonh Cha Referrals: Jonh Cha MD [Primary Care Provider] - 5-7 Days Activity Restrictions/Additional Instructions: Follow-up with your PCP and return for any other concerns. Print Language: [place] Disposition Disposition: Home, Self Care Discharge Date/Time: 10/20/24 13:14
--- NOTE | 2024-10-20 11:40 | ED.RN ---
reports chills, flushing and sweating on Monday evening
[2024-10-20] MEDS: Ketorolac 30 MG/ML Syringe IV (11:51)
[2024-10-20] MEDS: 0.9% Normal Saline (1000mL) 1,000 ML 999 ML IV (11:51)
[2024-10-20 12:03] LABS: Bacteria 0 SEEN /hpf (None Seen); Mucous, Urine 0 SEEN /hpf (<or=2+); Red Blood Cells-Urine 0 SEEN /hpf (0-5)
[2024-10-20 12:05] LABS: Absolute Lymphocyte Count 1.11 X10^3/uL (0.83-4.51); Absolute Neutrophil Count 3.2 X10^3/uL (2.0-7.7); Basophil# 0.03 X10^3/uL; Basophil% 0.6 % (0-1); Eosinophil# 0.02 X10^3/uL; Eosinophils% 0.4 % (0-5); Hematocrit 46.1 % (37-47); Hemoglobin 15.6 g/dL (12.0-15.0); Lymphocyte # 1.11 X10^3/ul (0.83-4.51); Lymphocyte % 22.6 % (19-41); Mean Corp Hgb Conc 33.8 g/dL (32-36); Mean Corpuscular Hgb 28.7 pg (27.0-32.0); Mean Corpuscular Volume 84.9 fL (81-99); Mean Platelet Vol. 8.8 fl (6.2-12.0); Monocyte% 10.2 % (0-10); NRBC Flagged by Analyzer 0 % (0-5); Neutrophil # 3.23 X10^3/uL (2.7-7.7); Neutrophil % 65.6 % (47-70); Platelet Count 182 K/mm3 (150-450); RBC Distribution Width CV 13.1 % (11.6-14.6); RBC Distribution Width SD 40.3 fl (35.1-43.9); Red Blood Count 5.43 M/mm3 (4.2-5.4); White Blood Count 4.9 K/mm3 (4.4-11.0)
[2024-10-20 12:06] LABS: Color, Urine Straw (Yellow); Glucose, Dipstick Normal (Normal); Ketone-Dipstick Negative (Negative); Leukocyte Esterase-Dipstick 25 /ul (Negative); Nitrite-Dipstick Negative (Negative); Occult Blood-Urine Negative /ul (Negative); Protein-Dipstick 15 mg/dl (Negative); Urine Bilirubin Dipstick Negative (Negative); Urine Clarity Sl. Cloudy (Clear); Urine Urobilinogen Normal (Normal)
[2024-10-20 12:12] LABS: Squamous Epithelial Cells - UA 0-5 SEEN /hpf (5-10); White Blood Cells 0-5 SEEN /hpf (0-5)
[2024-10-20 12:16] VITALS: BP 144/73; PULSE 63; RESP 14; TEMP 36.9; O2SAT 97
[2024-10-20 12:22] LABS: ALB/GLOB Ratio 1.1 RATIO (0.9-2.4); AST(SGOT) 26 U/L (<=31); Alanine Aminotransfer ALT/SGPT 27 U/L (<=34); Albumin, Serum 3.9 g/dL (3.4-4.8); Alkaline Phosphatase 72 U/L (35-104); Anion Gap 11 (5-15); BUN 11 mg/dL (4-19); BUN/Creat Ratio 13.7 RATIO (10-20); Carbon Dioxide 24.8 mmol/L (21.0-32.0); Chloride 101 mmol/L (98-108); Creatinine, Serum 0.82 mg/dL (0.70-1.20); EST Glomerular Filtration Rate 82 (>60); Estimated Creatinine Clearance 112.99 ml/min (50-250); Globulin 3.4 g/dL (2.2-4.2); Glucose 132 mg/dL (70-99); Lipase 33 U/L (13-75); Protein, Total 7.3 g/dL (5.9-8.4); Sodium Level 136 mmol/L (133-145); Total Bilirubin 1.26 mg/dL (0.00-1.30)
--- OUTSIDE RECORDS SUMMARY | 2024-10-20 12:31 | XMS RPT_ITS | CCD ---
Author Organization [facility] Care Team Providers Care Laboratory Assistant Name Role Phone TRISTAN, CASEY E Unavailable Unavailable TRISTAN, CASEY E Unavailable Unavailable TRISTAN, CASEY Unavailable Unavailable TRISTAN, CASEY Unavailable Unavailable TRISTAN, CASEY Unavailable Unavailable TRISTAN, CASEY Unavailable Unavailable Lisette Banks Unavailable Milka Mas MD Primary Care Provider Vincent, Lalito S Unavailable Milka Mas MD Primary Care Provider Vincent, Lalito S Unavailable Milka Mas MD Primary Care Provider Vincent, Lalito S Unavailable Milka Mas MD Primary Care Provider Vincent, Lalito S Unavailable 13, Pharmacist Unavailable Vincent, Lalito S Unavailable Vincent RAM Chatham S Unavailable MILKA MAS Primary Care Unavailable LISETTE BANKS Referring Unavailab MILKA Bucio Primary Care Unavailable LISETTE BANKS Referring Unavailab MILKA Bucio Primary Care Unavailable LISETTE BANKS Attending Unavailab le LISETTE BANKS Admitting Unavailab le LISETTE BANKS Admitting Unavailab le MILKA MAS Primary Care Unavailable LISETTE BANKS Attending Unavailab Milka Bucio MD Primary Care Provider Brockjoelleck, Milka Primary Care Unavailable Suraj Hooks Referring Unavailable Suraj Hooks Attending Unavailable Elderbrock, Milka Primary Care Unavailable Adriel Mac Attending Unavailable [place] TOURIST CABIN KEEPER.REFINERY OPERATOR HELPER CRUDE UNIT, Joaquina Unavailable Elfego TOURIST CABIN KEEPER.REFINERY OPERATOR HELPER CRUDE UNIT, Byron Unavailable [place] TOURIST CABIN KEEPER.REFINERY OPERATOR HELPER CRUDE UNIT, Joaquina Unavailable Unavail able [place] TOURIST CABIN KEEPER.REFINERY OPERATOR HELPER CRUDE UNIT, Joaquina Unavailable [place] TOURIST CABIN KEEPER.REFINERY OPERATOR HELPER CRUDE UNIT, Joaquina Unavailable [place] TOURIST CABIN KEEPER.REFINERY OPERATOR HELPER CRUDE UNIT, Joaquina Unavailable ELDERJOELLECK, MILKA D Attending Unavailable ELDERBROCK, MILKA D Primary Care Unavailable ELDERBROCK, MILKA D Referring Unavailable ELDERBROCK, MILKA D Primary Care Unavailable ELDERBROCK, MILKA D Attending Unavailable ELDERBROCK, MILKA D Primary Care Unavailable ELDERBROCK, MILKA D Referring Unavailable ELDERBROCK, MILKA D Primary Care Unavailable LISETTE BANKS Attending Unavailab le ELDERBROCK, MILKA D Primary Care Unavailable DAYA CASTILLO Attending Unavailable LISETTE BANKS Referring Unavailab le ELDERBROCK, MILKA D Primary Care Unavailable CHICORELLISETTE UMANA Attending Unavailab le ELDERBROCK, MILKA D Primary Care Unavailable ELDERBROCK, MILKA D Referring Unavailable ELDERBROCK, MILKA D Primary Care Unavailable ELDERBROCK, MILKA D Referring Unavailable ELDERBROCK, MILKA D Primary Care Unavailable ELDERBROCK, MILKA D Attending Unavailable ELDERBROCK, MILKA D Primary Care Unavailable ELDERBROCK, MILKA D Referring Unavailable ELDERBROCK, MILKA D Primary Care Unavailable ELDERBROCK, MILKA D Referring Unavailable ELDERBROCK, MILKA D Primary Care Unavailable Allergies Allergy Classification Reported Allergen(s) Allergy Type Date of Onset Reaction(s) Facility (20 sources) celecoxib; Translations: [CELECOXIB] Drug Allergy 5 [facility] Repository (20 sources) diclofenac; Translations: [DICLOFENAC SODIUM] Drug Allergy 5 [facility] Repository (20 sources) enoxaparin; Translations: [ENOXAPARIN SODIUM] Drug Allergy 2 [facility] Repository (20 sources) erythromycin; Translations: [ERYTHROMYCIN] Drug Allergy 5 Rash [facility] Repository (20 sources) Latex; Translations: [LATEX] Propensity to adverse reactions (disorder) 5 [facility] Repository (20 sources) rofecoxib; Translations: [ROFECOXIB] Drug Allergy 5 Swelling [facility] Repository (20 sources) valdecoxib; Translations: [VALDECOXIB] Drug Allergy 5 Swelling [facility] Repository (20 sources) AMOXICILLIN-POT CLAVULANATE; Translations: [AMOXICILLIN-POT CLAVULANATE] Propensity to adverse reactions to drug (disorder) 5 Other: See Comments [facility] (5 sources) Amoxicillin; Translations: [amoxicillin trihydrate] Drug Allergy 3 Other [facility] (4 sources) Ciprofloxacin Drug Allergy 3 Pain in joints [facility] (4 sources) Diclofenac Drug Allergy 3 Swelling [facility] (5 sources) Erythromycin; Translations: [erythromycin lactobionate] Drug Allergy 3 [facility] (20 sources) levoFLOXacin; Translations: [LEVOFLOXACIN] Drug Allergy 3 Other: See Comments [facility] (4 sources) natural latex rubber Allergy to substance 3 [facility] (5 sources) potassium clavulanate; Translations: [potassium clavulanate] Propensity to adverse reactions 3 [facility] (1 source) Ciprofloxacin Drug Allergy 4 [facility] Repository (1 source) Diclofenac Drug Allergy 4 [facility] Repository (1 source) levoFLOXacin Drug Allergy 4 [facility] Repository (1 source) natural latex rubber Drug allergy (disorder) 4 [facility] Repository Medications Current Medications Medication Drug Class(es) Dates Sig (Normalized) Sig (Original) acetaminophen 300 mg / codeine phosphate 30 mg oral tablet (20 sources) Opioid Agonist Start: 04-11-2024 End: 10-16-2024 take 1 tablet by mouth twice daily as needed for pain acetaminophen-code ine (TYLENOL-CODEINE #3) 300-30 mg per tablet Indications: Right knee pain, unspecified chronicity Take 1 tablet by mouth two times a day as needed for pain for up to 90 days. 60 tablet 2 07/18/2024 10/16/2024 Active Start: 01-02-2024 End: 04-01-2024 take 1 tablet by mouth twice daily as needed for pain acetaminophen-codeine (TYLENOL-CODEINE #3) 300-30 mg per tablet Indications: Right knee pain, unspecified chronicity Take 1 tablet by mouth two times a day as needed for pain for up to 90 days. 60 tablet 2 01/02/2024 04/01/2024 Active Start: 09-18-2023 End: 12-17-2023 take 1 tablet by mouth twice daily as needed for pain acetaminophen-codeine (TYLENOL-CODEINE #3) 300-30 mg per tablet Indications: Right knee pain, unspecified chronicity Take 1 tablet by mouth two times a day as needed for pain for up to 90 days. 60 tablet 2 09/18/2023 12/17/2023 Active Start: 06-05-2023 End: 09-03-2023 take 1 tablet by mouth twice daily as needed for pain acetaminophen-codeine (TYLENOL-CODEINE #3) 300-30 mg per tablet Indications: Right knee pain, unspecified chronicity Take 1 tablet by mouth two times a day as needed for pain for up to 90 days. 60 tablet 2 06/05/2023 09/03/2023 Active Start: 05-04-2023 End: 06-03-2023 take 0.5 tablet by mouth twice daily as needed acetaminophen-codeine (TYLENOL-COD #4) 300-60 mg per tablet Indications: Right knee pain, unspecified chronicity , Bursitis of left shoulder Take 0.5 tablets by mouth two times a day as needed for up to 30 days. 30 tablet 05/04/2023 06/03/2023 Start: 03-02-2023 End: 06-03-2023 take 1 tablet by mouth twice daily as needed for pain acetaminophen-codeine (TYLENOL-CODEINE #3) 300-30 mg per tablet Indications: Right knee pain, unspecified chronicity Take 1 tablet by mouth two times a day as needed for pain for up to 90 days. 60 tablet 2 03/02/2023 06/03/2023 Discontinued Start: 08-25-2022 End: 02-19-2023 take 1 tablet by mouth twice daily as needed for pain acetaminophen-codeine (TYLENOL-CODEINE #3) 300-30 mg per tablet Indications: Right knee pain, unspecified chronicity Take 1 tablet by mouth twice daily as needed for pain for up to 90 days. 60 tablet 2 11/21/2022 02/19/2023 Active Start: 02-16-2022 End: 08-14-2022 take 1 tablet by mouth twice daily as needed for pain acetaminophen-codeine (TYLENOL-CODEINE #3) 300-30 mg per tablet Indications: Right knee pain, unspecified chronicity Take 1 tablet by mouth twice daily as needed for pain for up to 90 days. 60 tablet 2 02/16/2022 05/16/2022 Discontinued Start: 05-04-2021 End: 01-18-2022 take 1 tablet by mouth every twelve hours as needed acetaminophen-codeine (TYLENOL-CODEINE #3) 300-30 mg per tablet Take 1 tablet by mouth twice daily as needed for pain for up to 90 days. 60 tablet 2 10/20/2021 01/18/2022 Active Start: 02-02-2016 Acetaminophen- Codeine Active 1 EACH PO EVERY 4 HOURS NEEDED February 01, 2016 11:00pm Comment on above: Take 1 tablet by sandor th twice daily as needed for pain for up to 90 days. Take 1 tablet by sandor th two times a day as needed for pain for up to 90 days. atenolol 50 mg oral tablet (20 sources) beta-Adrenergic Yusuf Start: 11-28-2022 End: 09-05-2024 atenolol (TENORMIN) 50 mg tablet Indications: Essential hypertension, benign Taking 50 mg once daily 90 tablet 3 09/05/2024 Active Start: 12-30-2020 End: 11-26-2022 atenolol (TENORMIN) 50 mg ta blet Indications: Essential hypertension, benign Take 50 mg in the AM, 25 mg in the PM 135 tablet 3 12/23/2021 11/26/2022 Discontinued Start: 2017 ATENOLOL 50 MG TABS ATENOLOL [id number] Lisette Banks Start: 02-02-2016 take 50 mg by mouth once daily Atenolol Active 50 MG PO DAILY February 01, 2016 11:00pm Comment on above: Take 50 mg in the AM , 25 mg in the PM Taking 50 mg once da elan cefdinir 300 mg oral capsule (4 sources) Cephalosporin Antibacterial Start: 3 End: 3 take 1 capsule by mouth twice daily cefdinir (OMNICEF) 300 mg capsule Indications: Non-recurrent acute suppurative otitis media of right ear without spontaneous rupture of tympanic membrane Take 1 capsule by mouth twice daily for 7 days. 14 capsule 0 07/26/2022 08/02/2022 Active Comment on above: Take [address] [facility] twice daily for 7 days. cephalexin 500 mg oral capsule (11 sources) Cephalosporin Antibacterial Start: 4 End: 4 take 1 capsule by mouth three times daily cephALEXin (KEFLEX) 500 mg capsule Take 1 capsule by mouth three times a day for 7 days. 21 capsule 0 09/18/2023 09/25/2023 Active Start: 09-07-2023 End: 09-14-2023 take 1 capsule by mouth three times daily cephALEXin (KEFLEX) 500 mg capsule Take 1 capsule by mouth three times a day for 7 days. 21 capsule 0 09/07/2023 09/14/2023 Active Start: 03-13-2023 End: 03-20-2023 take 1 capsule by mouth three times daily cephALEXin (KEFLEX) 500 mg capsule Indications: Hematuria, unspecified type Take 1 capsule by mouth three times a day for 7 days. 21 capsule 0 03/13/2023 03/20/2023 Comment on above: Take 1 capsule by [facility] three times a day for 7 days. doxycycline hyclate 100 mg oral tablet (2 sources) Tetracycline-class Drug Start: 03-21-2022 End: 03-31-2022 take 1 tablet by mouth twice daily doxycycline (VIBRA-TABS) 100 mg tablet Take 1 tablet by mouth twice daily for 10 days. 20 tablet 0 03/21/2022 03/31/2022 Active Comment on above: Take 1 tablet by [facility] twice daily for 10 days. furosemide 40 mg oral tablet (20 sources) Loop Diuretic Start: 10-14-2024 take 1 tablet by mouth once daily furosemide (LASIX) 40 mg tablet Take 1 tablet by mouth once daily. 30 tablet 11 10/14/2024 Active Start: 12-30-2020 End: 11-14-2023 take 1 tablet by mouth once daily as needed furosemide (LASIX) 20 mg tablet Indications: Essential hypertension, benign Take 1 tablet by mouth once daily. NEEDED 90 tablet 3 12/30/2020 11/14/2023 Discontinued (Course of therapy completed) Start: 04-27-2020 End: 10-11-2024 take 1 tablet by mouth once daily furosemide (LASIX) 40 mg tablet Take 1 tablet by mouth once daily. 30 tablet 11 08/15/2023 10/11/2024 Discontinued Start: 02-05-2016 take 40 mg by mouth once daily as needed Furosemide Active 40 MG PO DAILY NEEDED February 04, 2016 11:00pm Comment on above: Take 1 tablet by sandor th once daily. Take 1 tablet by sandor th once daily. NEEDED gabapentin 300 mg oral capsule (20 sources) Anti-epileptic Agent Start: 10-14-2024 End: 04-12-2025 take 1 capsule by mouth once daily at bedtime gabapentin (NEURONTIN) 300 mg capsule Indications: Chronic midline low back pain without sciatica Take 1 capsule by mouth daily at bedtime for 180 days. 90 capsule 1 10/14/2024 04/12/2025 Active Start: 04-03-2023 End: 10-11-2024 take 1 capsule by mouth once daily at bedtime gabapentin (NEURONTIN) 300 mg capsule Indications: Chronic midline low back pain without sciatica Take 1 capsule by mouth daily at bedtime for 180 days. 90 capsule 1 04/11/2024 10/11/2024 Discontinued Start: 03-23-2021 End: 03-31-2023 take 1 capsule by mouth once daily at bedtime gabapentin (NEURONTIN) 300 mg capsule Indications: Chronic midline low back pain without sciatica Take 1 capsule by mouth daily at bedtime for 180 days. 90 capsule 1 09/29/2022 03/31/2023 Discontinued Start: 2017 GABAPENTIN 300 MG CAPS GABAPENTIN [id number] Lisette Banks Start: 02-02-2016 take 300 mg by mouth at bedtim e Gabapentin Active 300 MG PO AT BEDTIME February 01, 2016 11:00pm Comment on above: Take [address] [facility] daily at bedtime for 180 days. lisinopril 10 mg oral tablet (20 sources) Angiotensin Converting Enzyme Inhibitor Start: 04-09-2021 End: 09-05-2024 take 1 tablet by mouth once daily lisinopril (ZESTRIL) 10 mg tablet Indications: Essential hypertension, benign , Essential hypertension, benign Take 1 tablet by mouth once daily. 90 tablet 3 09/05/2024 Active Start: 2017 LISINOPRIL 10 MG TABS LISINOPRIL [id number] Lisette Siegel Abisaijocelynn Start: 08-07-2013 take 10 mg by mouth once daily Lisinopril Active 10 MG PO DAILY August 06, 2013 11:00pm Comment on above: Take 1 tablet by [facility] once daily. mupirocin 0.02 mg/mg topical ointment (9 sources) RNA Synthetase Inhibitor Antibacterial Start: 09-07-2023 End: 09-17-2023 mupirocin (BACTROBAN) 2 % ointment Indications: Skin infection Apply 1 application to affected area three times a day for 10 days. 22 g 0 09/07/2023 09/17/2023 Active Start: 11-26-2022 End: 12-06-2022 mupirocin (BACTROBAN) 2 % oi ntment Indications: Infected abrasion of skin of right hand Apply to affected area three times daily for 10 days. 15 g 0 11/26/2022 12/06/2022 Comment on above: Apply to affected ar ea three times daily for 10 days. nystatin 200047 unt/ml topical cream (20 sources) Polyene Antifungal Start: 08-25-2022 End: 09-16-2024 nystatin (MYCOSTATIN) cream Apply to affected area two times a day. 30 g 2 09/16/2024 Active Start: 04-06-2022 End: 07-19-2022 nystatin (MYCOSTATIN) 100,00 0 unit/mL suspension Take 5 mL by mouth four times daily. 1tsp swish in mouth for several minutes, then swallow (or expectorate) 4 times daily until gone. 200 mL 0 04/06/2022 07/19/2022 Discontinued Start: 05-28-2021 End: 07-19-2022 nystatin (MYCOSTATIN) cream Apply to affected area twice daily. 30 g 2 05/28/2021 07/19/2022 Discontinued Comment on above: Apply to affected ar ea twice daily. Take 5 mL by mouth f our times daily. 1tsp swish in mouth for several minutes, then swallow (or expectorate) 4 times daily until gone. predniSONE 10 mg oral tablet (3 sources) Start: 12-19-2023 End: 12-28-2023 predniSONE (DELTASONE) 10 mg tablet Take 4 tabs daily for 3 days, then 2 tabs daily for 3 days, then 1 tab daily for 3 days with food. 21 tablet 12/19/2023 12/28/2023 Active Start: 04-17-2023 End: 04-22-2023 take 2 tablets by mouth once daily at mealtime predniSONE (DELTASONE) 20 mg tablet Indications: Sore throat , Acute cough Take 2 tablets by mouth once daily for 5 days. Take daily with food. 10 tablet 04/17/2023 04/22/2023 Start: 03-29-2022 End: 04-03-2022 take 2 tablets by mouth once daily predniSONE (DELTASONE) 20 mg tablet Indications: ETD (Eustachian tube dysfunction), right Take 2 tablets by mouth once daily for 5 days. 10 tablet 0 03/29/2022 04/03/2022 Active Comment on above: Take 2 tablets by [facility] once daily for 5 days. semaglutide (OZEMPIC) 0.25 mg or 0.5 mg (2 mg/3 mL) pen (20 sources) Start: 023 End: 023 inject 0.25 mg by subcutaneous injection every week, then inject 0.5 mg by subcutaneous injection every week semaglutide (OZEMPIC) 0.25 mg or 0.5 mg (2 mg/3 mL) pen Indications: Type 2 diabetes mellitus without complication, without long-term current use of insulin (HCC) Inject 0.25 mg subcutaneously one time a week for 28 days, THEN 0.5 mg one time a week. 3 mL 2 12/12/2022 04/09/2023 Active Comment on above: Inject 0.25 mg subcu taneously one time a week for 28 days, THEN 0.5 mg one time a week. semaglutide (OZEMPIC) 1 mg/dose (4 mg/3 mL) pen (20 sources) Start: semaglutide (OZEMPIC) 1 mg/dose (4 mg/3 mL) pen Indications: Type 2 diabetes mellitus without complication, without long-term current use of insulin ([facility]) , Class 3 severe obesity due to excess calories with serious comorbidity and body mass index (BMI) of 50.0 to 59.9 in adult Inject 1 mg subcutaneously one time a week. 3 mL 5 07/18/2024 Active Start: 07-18-2024 semaglutide (O ZEMPIC) 1 mg/dose (4 mg/3 mL) pen Indications: Type 2 diabetes mellitus without complication, without long-term current use of insulin ([facility]) , Class 3 severe obesity due to excess calories with serious comorbidity and body mass index (BMI) of 50.0 to 59.9 in adult ([facility]) Inject 1 mg subcutaneously one time a week. 3 mL 5 07/18/2024 Active Start: 05-16-2023 End: 07-18-2024 semaglutide (OZEMPIC) 1 mg/d ose (4 mg/3 mL) pen Indications: Type 2 diabetes mellitus without complication, without long-term current use of insulin ([facility]) , Class 3 severe obesity due to excess calories with serious comorbidity and body mass index (BMI) of 50.0 to 59.9 in adult ([facility]) Inject 1 mg subcutaneously one time a week. 3 mL 5 05/16/2023 07/18/2024 Discontinued Start: 05-16-2023 semaglutide (O ZEMPIC) 1 mg/dose (4 mg/3 mL) pen Indications: Type 2 diabetes mellitus without complication, without long-term current use of insulin ([facility]) , Class 3 severe obesity due to excess calories with serious comorbidity and body mass index (BMI) of 50.0 to 59.9 in adult ([facility]) Inject 1 mg subcutaneously one time a week. 3 mL 5 05/16/2023 Active Comment on above: Inject 1 mg subcutan eously one time a week. SITagliptin 25 mg oral tablet (20 sources) Dipeptidyl Peptidase 4 Inhibitor Start: 01-18-202 3 take 1 mg by mouth once daily Sitagliptin Phosphate (Januvia) 25 mg Tablet Active MG PO DAILY May 18, 2022 12:00am Start: 10-13-2020 End: 02-07-2023 take 1 tablet by mouth once daily JANUVIA 100 mg tablet Indications: Type 2 diabetes mellitus without complication, without long-term current use of insulin (HCC) Take 1 tablet by mouth once daily. 30 tablet 11 10/18/2021 10/19/2022 Discontinued Comment on above: Take 1 tablet by sandor th once daily. tiZANidine 4 mg oral tablet (20 sources) Central alpha-2 Adrenergic Agonist Start: 06-13-2024 End: 12-10-2024 take 1 tablet by mouth every six hours as needed tiZANidine (ZANAFLEX) 4 mg tablet Indications: Chronic midline low back pain without sciatica Take 1 tablet by mouth every 6 hours as needed. 30 tablet 5 06/13/2024 12/10/2024 Active Start: 02-14-2018 End: 05-12-2024 take 1 tablet by mouth every six hours as needed tiZANidine (ZANAFLEX) 4 mg tablet Indications: Chronic midline low back pain without sciatica Take 1 tablet by mouth every 6 hours as needed. 30 tablet 5 11/14/2023 05/12/2024 Active Comment on above: Take 1 tablet by sandor th every 6 hours as needed. warfarin sodium 5 mg oral tablet (20 sources) Vitamin K Antagonist Start: 10-04-2021 End: 12-04-2023 warfarin (COUMADIN) 5 mg tablet 7.5 mg daily 129 tablet 4 12/04/2023 Active Start: 05-06-2021 End: 07-30-2021 warfarin (COUMADIN) 5 mg tab let TAKE 5MG EVERY MONDAY AND TAKE 7.5MG ALL OTHER DAYS 129 tablet 4 07/30/2021 Active Start: 2017 COUMADIN 10 MG TABS WARFARIN SODIUM [id number] Lisette Banks Start: 08-07-2013 take 7.5 mg by mouth once dedrick y Warfarin Active 7.5 MG PO DAILY August 06, 2013 11:00pm MON, TU, WED, FRI, SAT, SUN Comment on above: 5 mg every Mon, Mon; 7.5 mg all other days TAKE 5MG EVERY DAY AND TAKE 7.5MG ALL OTHER DAYS 7.5 mg daily Completed/Discontinued Medications Medication Drug Class(es) Dates Sig (Normalized) Sig (Original) acetaminophen 325 mg / HYDROcodone bitartrate 5 mg oral tablet (8 sources) Opioid Agonist Start: 02-09-2020 End: 02-12-2020 take 1 tablet by mouth every six hours as needed Hydrocodone-Acetami nophen Discontinued 1 TABLET PO EVERY 6 HOURS NEEDED 01 31February 09, 2020 February 11, 2020 11:03pm Start: 06-09-2019 End: 06-12-2019 take 1 tablet by mouth every six hours as needed Hydrocodone-Acetaminophen Discontinued 1 TABLET PO EVERY 6 HOURS NEEDED 01 31June 09, 2019 June 12, 2019 12:08am acetaminophen 325 mg / oxyCODONE hydrochloride 5 mg oral tablet (20 sources) Opioid Agonist Start: 12-29-2022 End: 02-07-2023 take 1 tablet by mouth every six hours as needed for pain oxyCODONE-acetaminophen (PERCOCET) 5-325 mg tablet Indications: Postoperative pain Take 1 tablet by mouth every 6 hours as needed for pain. 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 for pain. 20 tablet 0 07/29/2022 11/21/2022 Discontinued Start: 09-15-2021 End: 10-20-2021 take 1 tablet by mouth every four hours as needed for pain oxyCODONE-acetaminophen (PERCOCET) 5-325 mg tablet Indications: Postoperative pain Take 1 tablet by mouth every 4 hours as needed for pain. for pain. 20 tablet 0 09/15/2021 10/20/2021 Discontinued (Other) Start: 08-31-2021 End: 09-07-2021 take 1 tablet by mouth every six hours as needed for pain oxyCODONE-acetaminophen (PERCOCET) 5-325 mg tablet Indications: Tendinitis of left shoulder , Bursitis of left shoulder , Postoperative pain Take 1 tablet by mouth every 6 hours as needed for pain for up to 7 days. 28 tablet 0 08/31/2021 09/07/2021 Active Start: 02-21-2018 End: 02-24-2018 take 1 tablet by mouth every six hours as needed for pain Oxycodone-Acetaminophen Discontinued 1 - 2 TABLET PO EVERY 6 HOURS NEEDED 20 February 20, 2018 11:00pm February 23, 2018 11:12pm take one tab every 6 hours by mouth as needed for pain Comment on above: Take 1 tablet by sandor th every 6 hours as needed for pain for up to 7 days. Take 1 tablet by sandor th every 4 hours as needed for pain. for pain. Take 1 tablet by sandor th every 6 hours as needed for pain. amLODIPine 5 mg oral tablet (1 source) Dihydropyridine Calcium Channel Yusuf Start: AMLODIPINE BESYLATE 5 MG TABS AMLODIPINE BESYLATE [id number] Lisette Banks benzonatate 100 mg oral capsule (1 source) Non-narcotic Antitussive Start: End: take 1 capsule by mouth every eight hours as needed for cough and cough benzonatate (TESSALON PERLE) 100 mg capsule Indications: Acute cough Take 1 capsule by mouth three times a day as needed for cough for up to 7 days. 21 capsule 04/17/2023 04/24/2023 clindamycin 300 mg oral capsule (13 sources) Lincosamide Antibacterial Start: 022 End: take 1 capsule by mouth four times daily clindamycin (CLEOCIN) 300 mg capsule Take 1 capsule by mouth four times daily. 40 capsule 0 04/20/2022 07/19/2022 Discontinued Comment on above: Take [address] [facility] four times daily. clopidogrel 75 mg oral tablet (4 sources) [id number] Platelet Inhibitor Start: 019 End: take 1 tablet by mouth once daily Clopidogrel (Plavix) 75 mg tablet Discontinued 75 MG PO DAILY July 04, 2018 12:00am December 25, 2018 7:19am cyclobenzaprine hydrochloride 10 mg oral tablet (20 sources) Muscle Relaxant Start: End: 023 take 1 tablet by mouth every eight hours as needed for pain cyclobenzaprine (FLEXERIL) 10 mg tablet Indications: Bilateral hip pain Take 1 tablet by mouth every 8 hours as needed for muscle spasm. for pain or spasms. 30 tablet 5 03/23/2021 07/19/2022 Discontinued Comment on above: Take 1 tablet by sandor th every 8 hours as needed for muscle spasm. for pain or spasms. fluconazole 150 mg oral tablet (4 sources) Azole Antifungal Start: End: fluconazole (DIFLUCAN) 150 mg tablet Take 1 tablet by mouth one time only for 1 dose. Repeat in 3 days as needed. 2 tablet 0 09/07/2023 09/07/2023 Start: 08-11-2023 End: 08-11-2023 fluconazole (DIFLUCAN) 150 m g tablet Take 1 tablet by mouth one time only for 1 dose. Repeat in 3 days if needed. 2 tablet 0 08/11/2023 08/11/2023 Active Start: 12-06-2022 End: 12-08-2022 fluconazole (DIFLUCAN) 150 m g tablet Take 1 tablet by mouth once daily for 2 days. May repeat in 3 days if needed 1 tablet 1 12/06/2022 12/08/2022 Comment on above: Take 1 tablet by sandor th once daily for 2 days. May repeat in 3 days if needed Take 1 tablet by sandor th one time only for 1 dose. Repeat in 3 days if needed. fluticasone propionate 0.05 mg/actuat metered dose nasal spray (17 sources) Corticosteroid Start: 03-29-20 End: 07-20-19 take 2 spray(s) by mouth once daily fluticasone (FLONASE) 50 mcg/actuation nasal spray Indications: ETD (Eustachian tube dysfunction), right Use 2 Sprays in each nostril once daily. Rinse mouth after use. 1 Each 1 03/29/2022 07/19/2022 Discontinued Comment on above: Use 2 Sprays in each nostril once daily. Rinse mouth after use. 10 ml lidocaine hydrochloride 10 mg/ml injection (1 source) Antiarrhythmic, Amide Local Anesthetic Start: 10-29-19 End: 10-29-19 lidocaine (PF) 10 mg/mL (1 %) 1 mL injection (XYLOCAINE) Start: 10-28-2022 End: 10-28-2022 lidocaine (PF) 10 mg/mL (1 % ) 1 mL injection (XYLOCAINE) methylPREDNISolone 4 mg oral tablet (20 sources) Corticosteroid Start: 02-22-2023 methylPREDNISo lone (MEDROL, LEÓN,) 4 mg Dose-Pack Take 1 tablet by mouth as directed. As directed on package 21 tablet 0 02/22/2023 Active Start: 11-09-2021 End: 01-18-2022 methylPREDNISolone (MEDROL, LEÓN,) 4 mg Dose-Pack Take by mouth as directed on package 21 tablet 0 11/09/2021 01/18/2022 Discontinued Start: 12-11-2018 End: 12-25-2018 take 1 tablet by mouth once Methylprednisolone (Medrol (León)) 4 mg tablets,dose pack Discontinued 0 PO per package directions December 10, 2018 11:00pm December 25, 2018 7:19am PO PER PKG DIR Comment on above: Take by mouth as dir ected on package Take 1 tablet by sandor th as directed. As directed on package ondansetron 4 mg oral tablet (11 sources) Serotonin-3 Receptor Antagonist Start: 3 End: 3 take 1 tablet by mouth every eight hours as needed ondansetron (ZOFRAN) 4 mg tablet Take 1 tablet by mouth every 8 hours as needed for nausea/vomiting. 10 tablet 0 12/29/2022 02/07/2023 Discontinued Comment on above: Take 1 tablet by sandor th every 8 hours as needed for nausea/vomiting. 20 ml ropivacaine hydrochloride 5 mg/ml injection (2 sources) Amide Local Anesthetic Start: 5 End: 5 ROPivacaine (PF) 5 mg/mL (0.5 %) 3 mL injection (NAROPIN) Start: 09-30-2024 End: 09-30-2024 3 mL, Injection - FOR ORTHO USE ONLY, ONCE, 1 dose, Starting on Mon09/30/24 at 0849, Until Mon09/30/24 at 0849 1 ml triamcinolone acetonide 40 mg/ml injection (3 sources) Corticosteroid Start: 09-30-2024 End: 09-30-2024 triamcinolone acetonide 40 mg injection (KeNALog 40) Start: 09-30-2024 End: 09-30-2024 40 mg, Injection - FOR ORTHO USE ONLY, ONCE, 1 dose, Starting on 09/30/24 at 0849, Until Mon09/30/24 at 0849 Start: 10-28-2022 End: 10-28-2022 triamcinolone acetonide 40 m g injection (KeNALog 40) zolpidem tartrate 5 mg oral tablet (20 sources) gamma-Aminobutyric Acid-ergic Agonist Start: 08-31-2021 End: 01-18-2022 take 1 tablet by mouth at bedtime as needed zolpidem (AMBIEN) 5 mg tablet Indications: Tendinitis of left shoulder , Bursitis of left shoulder , Postoperative pain Take 1 tablet by mouth at bedtime as needed (for insomnia.) for up to 7 days. 7 tablet 0 08/31/2021 01/18/2022 Discontinued Comment on above: Take 1 tablet by mouth at bedtime as nee ded (for insomnia.) for up to 7 days. Problems Active Problems Problem Classification Problem Date Documented Da te Episodic/Chronic Anxiety disorders (2 sources) Generalized anxiety disorder; Translations: [Generalized anxiety disorder] Chronic Aortic and peripheral arterial embolism or thrombosis (20 sources) Vascular disorder; Translations: [Embolism and thrombosis of unspecified artery] Onset: 8 03-04-2015 Chronic Chronic ulcer of skin (3 sources) Chronic ulcer of skin; Translations: [Non-pressure chronic ulcer of skin of other sites with fat layer exposed] 07-13-2022 Chronic Conditions associated with dizziness or vertigo (1 source) Dizziness; Translations: [Dizziness and giddiness] Episodic Diabetes mellitus without complication (20 sources) Type 2 diabetes mellitus without complication; Translations: [Type 2 diabetes mellitus without complications] Onset: 1 12-30-2020 Chronic Disorders of lipid metabolism (5 sources) Mixed hyperlipidemia; Translations: [Mixed hyperlipidemia] Onset: Chronic Diverticulosis and diverticulitis (20 sources) Diverticulosis of colon; Translations: [Diverticulosis of large intestine without perforation or abscess without bleeding] 03-23-2009 Chronic Esophageal disorders (20 sources) Gastroesophageal reflux disease; Translations: [Gastro-esophageal reflux disease without esophagitis] Onset: 5 03-23-2009 Chronic Essential hypertension (20 sources) Essential (primary) hypertension; Translations: [Benign essential hypertension] Onset: 8 03-23-2009 Chronic Fever of unknown origin (1 source) Fever; Translations: [Fever, unspecified] 04-17-2023 Episodic Genitourinary symptoms and ill-defined conditions (1 source) Blood in urine; Translations: [Hematuria, unspecified] 03-13-2023 Episodic Headache; including migraine (20 sources) Refractory migraine; Translations: [Migraine, unspecified, intractable, without status migrainosus] 03-23-2009 Chronic Immunizations and screening for infectious disease (3 sources) Needs influenza immunization; Translations: [Encounter for immunization] Episodic Nonmalignant breast conditions (20 sources) Fibrocystic disease of breast; Translations: [Diffuse cystic mastopathy of unspecified breast] 03-23-2009 Chronic Nonspecific chest pain (6 sources) Chest pain, unspecified; Translations: [Chest pain] Onset: 7 02-21-2018 Episodic Osteoarthritis (20 sources) Osteoarthrosis of the carpometacarpal joint of the thumb; Translations: [Localized osteoarthrosis uncertain if primary OR secondary] Onset: 7 2017 Chronic Other connective tissue disease (20 sources) History of total knee arthroplasty; Translations: [Presence of unspecified artificial knee joint] Onset: 2 07-25-2011 Chronic Other connective tissue disease (1 source) Right rotator cuff syndrome; Translations: [Unspecified rotator cuff tear or rupture of right shoulder, not specified as traumatic] Episodic Other connective tissue disease (2 sources) Pain in right foot; Translations: [Pain in right foot] Episodic Other connective tissue disease (2 sources) Adhesive capsulitis of left shoulder; Translations: [Adhesive capsulitis of left shoulder] Episodic Other connective tissue disease (4 sources) Biceps tendinitis; Translations: [Bicipital tendinitis, left shoulder] Episodic Other diseases of bladder and urethra (20 sources) Disorder of bladder; Translations: [Other disorders of bladder] 03-23-2009 Chronic Other gastrointestinal disorders (20 sources) Irritable bowel syndrome; Translations: [Irritable bowel syndrome without diarrhea] 03-23-2009 Chronic Other hereditary and degenerative nervous system conditions (20 sources) Restless legs; Translations: [Restless legs syndrome] Onset: 8 03-23-2009 Chronic Other injuries and conditions due to external causes (4 sources) Open wound with complication; Translations: [Other injury of unspecified body region, initial encounter] 05-18-2022 Episodic Other injuries and conditions due to external causes (8 sources) Other injury of unspecified body region, initial encounter; Translations: [Open wound(s) (multiple) of unspecified site(s), complicated] 05-31-2022 Episodic Other injuries and conditions due to external causes (1 source) Encounter for examination and observation following other accident; Translations: [Encounter for examination and observation following other accident] Onset: 4 Episodic Other lower respiratory disease (1 source) Cough; Translations: [Acute cough] 04-17-2023 Episodic Other non-traumatic joint disorders (4 sources) Chronic pain of left upper limb; Translations: [Pain in left shoulder] Episodic Other non-traumatic joint disorders (1 source) Multiple joint pain; Translations: [Pain in unspecified joint] Episodic Other non-traumatic joint disorders (11 sources) Pain in right knee; Translations: [Pain in joint, lower leg] Episodic Other non-traumatic joint disorders (5 sources) Hip pain; Translations: [Pain in right hip] Episodic Other non-traumatic joint disorders (3 sources) Disorder of shoulder; Translations: [Other specified joint disorders, unspecified shoulder] 11-17-2022 Episodic Other nutritional; endocrine; and metabolic disorders (20 sources) Severe obesity; Translations: [Morbid (severe) obesity due to excess calories] Onset: 9 09-29-2020 Chronic Other nutritional; endocrine; and metabolic disorders (1 source) Body mass index (BMI) 50.0-59.9, adult; Translations: [Class 3 severe obesity due to excess calories with serious comorbidity and body mass index (BMI) of 50.0 to 59.9 in adult (HCC)] Onset: 1 Chronic Other nutritional; endocrine; and metabolic disorders (1 source) Morbid (severe) obesity due to excess calories; Translations: [Class 3 severe obesity due to excess calories with serious comorbidity and body mass index (BMI) of 50.0 to 59.9 in adult ([facility])] Onset: 1 Chronic Other screening for suspected conditions (not mental disorders or infectious disease) (12 sources) Patient encounter status; Translations: [Encounter for screening mammogram for malignant neoplasm of breast] Onset: 5 Episodic Other skin disorders (2 sources) Skin irritation ; Translations: [Other skin changes] Episodic Other skin disorders (4 sources) Hidradenitis; Translations: [Hidradenitis suppurativa] 05-18-2022 Episodic Other skin disorders (8 sources) Hidradenitis suppurativa; Translations: [Hidradenitis] 05-31-2022 Episodic Other skin disorders (1 source) Loss of hair; Translations: [Nonscarring hair loss, unspecified] 02-15-2024 Episodic Other upper respiratory disease (20 sources) Allergic rhinitis; Translations: [Allergic rhinitis, unspecified] Onset: 5 03-23-2009 Chronic Other upper respiratory disease (1 source) Pain in throat; Translations: [Pain in throat] Episodic Other upper respiratory infections (1 source) Chronic sinusitis, unspecified; Translations: [Chronic sinusitis, unspecified] Onset: 4 Chronic Otitis media and related conditions (2 sources) Dysfunction of right eustachian tube; Translations: [Other specified disorders of Eustachian tube, right ear] Episodic Residual codes; unclassified (1 source) Difficulty sleeping ; Translations: [Sleep disorder, unspecified] Episodic Residual codes; unclassified (3 sources) History of arthroscopic procedure on shoulder; Translations: [Other specified postprocedural states] 01-09-2023 Episodic Residual codes; unclassified (1 source) Other specified postprocedural states; Translations: [S/P arthroscopy of left shoulder] Onset: 4 Episodic Rheumatoid arthritis and related disease (20 sources) Inflammatory polyarthropathy; Translations: [Inflammatory polyarthropathy] Onset: 3 Chronic Spondylosis; intervertebral disc disorders; other back problems (20 sources) Intervertebral disc disorder; Translations: [Unspecified thoracic, thoracolumbar and lumbosacral intervertebral disc disorder] Onset: 5 03-23-2009 Chronic Sprains and strains (2 sources) Traumatic rupture of rotator cuff; Translations: [Strain of muscle(s) and tendon(s) of the rotator cuff of left shoulder, subsequent encounter] Episodic Superficial injury; contusion (1 source) Abrasion of right hand, initial encounter; Translations: [Abrasion or friction burn of hand(s) except finger(s) alone, infected] 11-26-2022 Episodic Unclassified (1 source) Unknown / UNK(Unknown) Onset: 7 Unclassified (4 sources) PE/DVT 02-21-2018 Unclassified (4 sources) Body mass index 40+ - severely obese; Translations: [Body mass index of 60 or higher] 02-21-2018 Unclassified (1 source) Class 3 severe obesity due to excess calories with serious comorbidity and body mass index (BMI) of 50.0 to 59.9 in adult (HCC); Translations: [Class 3 severe obesity due to excess calories with serious comorbidity and body mass index (BMI) of 50.0 to 59.9 in adult (HCC)] Onset: Past or Other Problems Problem Classification Problem Date Documented Da te Episodic/Chronic Abdominal pain (20 sources) Abdominal pain; Translations: [Unspecified abdominal pain] Onset: 09-02-2009 Resolved: 03-09-2012 06-10-2019 Episodic Anal and rectal conditions (20 sources) Anorectal fistula; 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] Onset: 10-13-2011 Resolved: 07-09-2021 07-09-2021 Episodic Cardiac dysrhythmias (20 sources) Palpitations; Translations: [Palpitations] Onset: 01-29-2009 Resolved: 03-09-2012 02-21-2018 Episodic Diabetes mellitus without complication (20 sources) Abnormal glucose level; Translations: [Other abnormal glucose] Onset: 11-19-2007 Resolved: 07-09-2021 07-09-2021 Episodic Other aftercare (20 sources) Long-term current use of anticoagulant; Translations: [FPC (current) use of anticoagulants] Onset: 03-18-2019 03-18-2019 Episodic Other connective tissue disease (1 source) Hand pain; Translations: [Pain in unspecified hand] Onset: 2017 2017 Episodic Other connective tissue disease (20 sources) Bursitis of left shoulder; Translations: [Bursitis of left shoulder] Onset: 08-06-2021 Resolved: 08-31-2021 Episodic Other connective tissue disease (20 sources) Tendonitis of left shoulder; Translations: [Other enthesopathies, not elsewhere classified] Onset: 08-31-2021 Resolved: 08-31-2021 Episodic Other connective tissue disease (20 sources) Swelling of lower limb; Translations: [Other specified soft tissue disorders] Onset: 08-06-2021 08-06-2021 Episodic Other connective tissue disease (1 source) Bicipital tendinitis, left shoulder; Translations: [Biceps tendinitis of left upper extremity] Onset: 12-22-2022 Episodic Other connective tissue disease (1 source) Bursitis of left shoulder; Translations: [Bursitis of left shoulder] Onset: 12-22-2022 Episodic Other connective tissue disease (20 sources) Infrapatellar bursitis of right knee; Translations: [Other bursitis of knee, right knee] Onset: 08-11-2016 Resolved: 07-09-2021 07-09-2021 Episodic Other gastrointestinal disorders (20 sources) Diarrhea; Translations: [Diarrhea, unspecified] Onset: 09-02-2009 Resolved: 07-09-2021 07-09-2021 Episodic Other nervous system disorders (20 sources) Postoperative pain ; Translations: [Other acute postprocedural pain] Onset: 09-16-2021 Episodic Other nervous system disorders (1 source) Other acute postprocedural pain; Translations: [Postoperative pain] Onset: 12-29-2022 Episodic Other non-traumatic joint disorders (20 sources) Pain in unspecified knee; Translations: [Pain in joint, lower leg] Onset: 04-27-2010 04-26-2021 Episodic Other non-traumatic joint disorders (20 sources) Instability of right patellofemoral joint; Translations: [Other instability, right knee] Onset: 08-11-2016 08-11-2016 Episodic Other non-traumatic joint disorders (20 sources) Shoulder pain; Translations: [Pain in left shoulder] Onset: 09-16-2021 Episodic Other non-traumatic joint disorders (20 sources) Pain in left shoulder; Translations: [Pain in joint, shoulder region] Onset: 09-16-2021 09-16-2021 Episodic Other non-traumatic joint disorders (1 source) Other specified joint disorders, unspecified shoulder; Translations: [Shoulder impingement] Onset: 07-29-2022 Episodic Other non-traumatic joint disorders (1 source) Pain in right hip; Translations: [Pain of right hip] Onset: 07-10-2024 Episodic Other nutritional; endocrine; and metabolic disorders (20 sources) Metabolic syndrome X; Translations: [Dysmetabolic syndrome X] Onset: 11-19-2007 Resolved: 07-09-2021 07-09-2021 Chronic Residual codes; unclassified (20 sources) Obstructive sleep apnea syndrome; Translations: [Obstructive sleep apnea (adult) (pediatric)] Onset: 10-22-2007 Resolved: 08-31-2021 03-23-2009 Chronic Residual codes; unclassified (20 sources) H/O: anticoagulant therapy; Translations: [Personal history of other drug therapy] Onset: 08-11-2016 08-11-2016 Episodic Residual codes; unclassified (20 sources) History of operative procedure on shoulder; Translations: [Other specified postprocedural states] Onset: 12-30-2022 Episodic Screening and history of mental health and substance abuse codes (20 sources) Ex-smoker; Translations: [Personal history of nicotine dependence] Onset: 08-06-2021 08-06-2021 Episodic Skin and subcutaneous tissue infections (4 sources) Furuncle of groin; Translations: [Furuncle of groin] Episodic Spondylosis; intervertebral disc disorders; other back problems (20 sources) Chronic low back pain; Translations: [Chronic midline low back pain without sciatica] Onset: 07-02-2019 07-02-2019 Episodic Unclassified (4 sources) h/o right CMC joint arthroplasty 11-18-2021 Unclassified (4 sources) s/p elbow 11-18-2021 Unclassified (1 source) Patient encounter status 07-19-2024 Viral infection (20 sources) Disease caused by 2019-nCoV; Translations: [COVID-19] Onset: 04-18-2023 04-18-2023 Episodic Results Test Name Value Interpretation Reference Range Facility [facility] 10-07-2024 [facility] Telephone ([facility]) MICHELLEATTILAMORENA KWAN ([id number]) 1965 F Date Time Provider Department 10/07/24 MANAS RICHTER During your visit today, we recorded the following information about you: Manas Richter [facility] 10/07/2024 11:41 AM Signed [facility] Anticoagulation Episode Summary Anticoagulation Care Providers Provider Role Specialty Phone number Milka Mas MD Family Medicine [phone] Morena Martinez is a 59 year old year old female patient being evaluated today for a Telemanagement visit. Patient is currently on the following anticoagulant(s) Warfarin. Labs PT INR (no units) Date Value 07/28/2022 2.7 (pt reported) 03/20/2022 2.7 01/23/2022 2.9 INR Home CoaguChek (no units) Date Value 10/07/2024 1.6 09/23/2024 2.2 09/10/2024 2.0 CrCl cannot be calculated (Unknown ideal weight.). 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: Anticoagulation Episode Summary Current INR goal: 2.0-3.0 Assessment: INR result of 1.6 is SUBtherapeutic due to: unknown cause - did not speak to patient Plan: Current Warfarin Dosing As of 10/07/2024 Full warfarin instructions: 10/07: 10 mg; Otherwise 5 mg every Fri; 7.5 mg all other days Left voice message Advised patient to increase dose for 1 day only then resume weekly regimen Next INR check due on 10/21/2024 Patient instructed to call [facility] at [phone] with any questions or concerns. Manas Richter [facility] Clinical Pharmacist, Pharmacy Anticoagulation Clinic Pharmacy Anticoagulation Clinic Pager: [phone] Arnaud (Typing Section Chief)Miguel 10/07/2024 1:09 PM Signed [facility] called regarding INR result for patient. Result has been addressed below, no further action needed. Miguel Lares, Supervisor [employer] (color maker formulator) Pharmacy Anticoagulation Clinic Allergies As of Date: 10/07/2024 Noted Allergy Reaction LEVAQUIN (LEVOFLOXACIN) 07/19/2022 14 - Other: See Comments Comments: Notes body aches and joint pain when on medication AUGMENTIN (AMOXICILLIN-POT CLAVUL*12/31/2004 14 - Other: See [...] - Swelling Comments: ankle swelling Date Reviewed: 09/30/2024 Reviewed by: Yani Mason MA - Fully Assessed Reason for Visit: Anticoagulation Telephone Fu [[id number]] Cmt: Home INR Result Prescriptions as of 10/07/2024 - nystatin (MYCOSTATIN) cream Apply to affected area two times a day. - atenolol (TENORMIN) 50 mg tablet Taking 50 mg once daily - lisinopril (ZESTRIL) 10 mg tablet Take 1 tablet by mouth once daily. - acetaminophen-codeine (TYLENOL-CODEINE #3) 300-30 mg per tablet Take 1 tablet by mouth two times a day as needed for pain for up to 90 days. - semaglutide (OZEMPIC) 1 mg/dose (4 mg/3 mL) pen Inject 1 mg subcutaneously one time a week. - tiZANidine (ZANAFLEX) 4 mg tablet Take 1 tablet by mouth every 6 hours as needed. - gabapentin (NEURONTIN) 300 mg capsule Take 1 capsule by mouth daily at bedtime for 180 days. - warfarin (COUMADIN) 5 mg tablet 7.5 mg daily - furosemide (LASIX) 40 mg tablet Take 1 tablet by mouth once daily. Problem List As Of Date 10/07/2024 Noted Resolved Allergic Rhinitis, Cause Unspecified [J30.9] 12/31/2004 Diverticulosis of Colon (without Mention of Hem* Irritable Bowel Syndrome [K58.9] Migraine NOS/Intractable [G43.919] Other Disorders of Bladder [596] Diffuse Cystic Mastopathy [N60.19] Loc Osteoarth NOS-Site NEC [M19.90] Other and Unspecified Disc Disorder of Unspecif* Esophageal Reflux [K21.9] 04/15/2005 Embolism and thrombosis (HCC) [I74.9] 08/22/2007 Restless Legs Syndrome (RLS) [G25.81] 10/22/2007 Obstructive sleep apnea (adult) (pediatric) [G4*10/22/2007 08/31/2021 Essential Hypertension, Benign [I10] 11/19/2007 Other abnormal glucose [R73.09] 11/19/2007 07/09/2021 Dysmetabolic syndrome X [E88.810] 11/19/2007 07/09/2021 Palpitations [R00.2] 01/29/2009 03/09/2012 Routine Gynecological Examination [Z01.419] 02/11/2009 Class: (more content not included)... Normal [facility] CNOVon 09-30-2024 CNOV Office Visit ([facility] ) MORENA MARTINEZ ([id number]) 1965 F Date Time Provider Department 09/30/24 7:40 AM DAYA CASTILLO [facility] During your visit today, we recorded the following information about you: Daya Castillo DO 09/30/2024 8:50 AM Signed [facility] DEPARTMENT OF ORTHOPAEDIC SURGERY AMBULATORY OFFICE VISIT DOCUMENTATION NOTE DIAGNOSIS (M16.11) Primary osteoarthritis of right hip OFFICE VISIT DOCUMENTATION RELEVANT SUMMARY: Morena is a 59-year-old female presenting with progressively worsening right hip pain. Morena reports a several-year history of intermittent right hip pain, which has significantly worsened over the past 6-8 months. The pain is localized to the groin area, radiating to the back and down the front of the thigh, and is exacerbated by activities such as bending over, driving, and moving from the brake to the gas pedal. She describes the pain as a burning sensation and notes that it is particularly severe when standing still, causing tears on one occasion. The pain is also present when walking, making it difficult for her to engage in activities she enjoys, such as walking. She denies any specific injury or trauma that triggered the pain. Morena has not tried any specific treatments for the hip pain, as she was previously told that there was nothing wrong with her hip based on prior x-rays. She has been taking Tylenol #3 with codeine for back pain, which provides minimal relief for the hip pain. She has not attempted physical therapy due to the severity of the pain. She denies numbness, tingling, clicking, or popping sensations in the hip. She does report feeling shaky and occasionally reaching out for support due to a sense of instability, but she has not paid much attention to this symptom. She also experiences some left hip pain, but it is less severe than the right hip pain. Morena was previously evaluated by Dr. Sabrina Anthony, who recommended an ultrasound-guided right hip injection for diagnostic and therapeutic purposes. She was also counseled on the potential future need for a hip replacement. She understands that the purpose of today's visit is to receive the injection. EXAMINATION: - Musculoskeletal: - Right Hip: - Tenderness over the lateral aspect and groin. - Pain elicited with abduction against resistance. - Pain with passive internal and external rotation. - Left Hip: - Mild pain with passive internal and external rotation. CONDITION: Chronic musculoskeletal condition with exacerbation requiring further intervention. (4) DATA REVIEW: (Discussion of Management): In detail today we reviewed the imaging and diagnostic testing results, including the discussion of management of these results, correlated to physical exam findings and patient's personal history of the present condition. (4) MANAGEMENT: Osteoarthritis of the Hip: We discussed the use of various natural supplements and [id number] aids to help with this condition. We discussed the appropriate role and side effects of NSAID medication and the impact these medications have on inflammation. We discussed the potential for injection-based therapies and potentially the need for surgery to aid in the improvement of this condition. We discussed the importance of ongoing physical therapy and a home therapy program for this condition. Specifically, we recommended engaging in low-impact activities like water aerobics or stationary cycling to maintain mobility and reduce stress on the hip joint, and adding gentle stretching and strengthening exercises such as leg lifts and bridges. (Decision for injection): In addition to the comprehensive evaluation, assessment and plan as outlined in this note, and as a distinct and separate element to the visit today, separate from the management interventions as outlined above, we have made the determination to proceed with an injection to aid in the management of the patient's condition. We discussed the risks, benefits, alternatives and expected outcomes of this injection in detail, and the patient agreed to proceed. We discussed that this treatment plan confers a moderate risk as injection-based procedures carry the risk of morbidity that includes, but are not limited to, infection, damage to blood vessels or nerves, and a lack of response with continued pain that will continue to decrease musculoskeletal function, impact the patient's activities of daily living (ADLs) and their quality of life. Again, the patient voiced understanding of this and agreed to proceed with the injection. (4) SUMMARY: 1. Primary osteoarthritis of right hip (M16.11) X-ray on July 10, 2024, demonstrated mild symmetric degenerative changes of both intraarticular hips. Pain localized to the groin, radiating to the back and down the front of the thigh, a (more content not included)... Normal [facility] Large Joint Arthro/Inj: R hi p jointon 09-30-2024 Daya Castillo DO 09/30/2024 8:50 AM Large Joint Arthro/Inj: R hip joint 09/30/2024 8:49 AM The procedure site was prepped in the usual sterile fashion. Site: R hip joint Details:Musculoskeletal ultrasound was utilized to successfully localize placement of the injection needle at the appropriate site. Ultrasound images demonstrating local vasculature and demonstrating injection of solution were saved. Medications: 40 mg triamcinolone acetonide 40 mg/mL Anesthetics: 3 mL ROPivacaine (PF) 5 mg/mL (0.5 %) Outcome: Tolerated well, no immediate complications Post-injection instructions were reviewed with the patient and the patient voiced understanding of these instructions. Informed Consent Consent Obtained: Written [place] Protocol A moment to CARE was completed. SIGN IN Personnel directly involved with the procedure wore the appropriate PPE. Patient/Surrogate Stated/Verified: Patient name, Date of , Relevant allergies and Intended procedure TIME OUT Relevant labs, photos, and/or imaging studies have been reviewed. Consent documented and matches the intended procedure. Correct side/site marked and visible. Medications required for procedure verified. SIGN OUT All instruments, equipment, possible retained foreign bodies accounted for. The post-procedure POC has been communicated to the patient or surrogate. [facility] US HIP-INJECTION RT (POC) OR I USE ONLYon 09-30-2024 [facility] ([id number]) 1965 F Date Time Provider Department 09/27/24 [facility] During your visit today, we recorded the following information about you: Pinky Dawkins MA 09/27/2024 10:30 AM Signed What They Liket message sent to pt notifying her that her meds are ready for product picker. [facility] [address] Chart Copy of medications dispensed to patient for home use September 27, 2024 Physician Initial: ME Morena Martinez Medication: Ozempic Qty: 4 boxes Directions: inject 1 mg once a week Medications administered, dispensed and verified on the date indicated above Patient has been notified to product picker medication in Dr. Mas office. Pinky Dawkins MA Allergies As of Date: 09/27/2024 Noted Allergy Reaction LEVAQUIN (LEVOFLOXACIN) 07/19/2022 14 - Other: See Comments Comments: Notes body aches and joint pain when on medication AUGMENTIN (AMOXICILLIN-POT CLAVUL*12/31/2004 14 - Other: See [...] - Swelling Comments: ankle swelling Date Reviewed: 09/18/2024 Reviewed by: Patsy Cavazos MA - Fully Assessed Reason for Visit: indigent meds [Other] Cmt: Ozempic Prescriptions as of 09/27/2024 - nystatin (MYCOSTATIN) cream Apply to affected area two times a day. - atenolol (TENORMIN) 50 mg tablet Taking 50 mg once daily - lisinopril (ZESTRIL) 10 mg tablet Take 1 tablet by mouth once daily. - acetaminophen-codeine (TYLENOL-CODEINE #3) 300-30 mg per tablet Take 1 tablet by mouth two times a day as needed for pain for up to 90 days. - semaglutide (OZEMPIC) 1 mg/dose (4 mg/3 mL) pen Inject 1 mg subcutaneously one time a week. - tiZANidine (ZANAFLEX) 4 mg tablet Take 1 tablet by mouth every 6 hours as needed. - gabapentin (NEURONTIN) 300 mg capsule Take 1 capsule by mouth daily at bedtime for 180 days. - warfarin (COUMADIN) 5 mg tablet 7.5 mg daily - furosemide (LASIX) 40 mg tablet Take 1 tablet by mouth once daily. Problem List As Of Date 09/27/2024 Noted Resolved Allergic Rhinitis, Cause Unspecified [J30.9] 12/31/2004 Diverticulosis of Colon (without Mention of Hem* Irritable Bowel Syndrome [K58.9] Migraine NOS/Intractable [G43.919] Other Disorders of Bladder [596] Diffuse Cystic Mastopathy [N60.19] Loc Osteoarth NOS-Site NEC [M19.90] Other and Unspecified Disc Disorder of Unspecif* Esophageal Reflux [K21.9] 04/15/2005 Embolism and thrombosis (HCC) [I74.9] 08/22/2007 Restless Legs Syndrome (RLS) [G25.81] 10/22/2007 Obstructive sleep apnea (adult) (pediatric) [G4*10/22/2007 08/31/2021 Essential Hypertension, Benign [I10] 11/19/2007 Other abnormal glucose [R73.09] 11/19/2007 07/09/2021 Dysmetabolic syndrome X [E88.810] 11/19/2007 07/09/2021 Palpitations [R00.2] 01/29/2009 03/09/2012 Routine Gynecological Examination [Z01.419] 02/11/2009 Class: Chronic Class 3 severe obesity due to excess calories w*02/11/2009 Abdominal pain, left lower quadrant [R10.32] 09/02/2009 03/09/2012 Diarrhea [R19.7] 09/02/2009 07/09/2021 Knee pain [M25.569] 04/27/2010 Status post total right knee replacement [Z96.6*07/25/2011 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] 10/13/2011 07/09/2021 Perirectal abscess [K61.1] 09/23/2015 07/09/2021 Infrapatellar bursitis of right knee [M70.51] 08/11/2016 07/09/2021 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] 08/11/2016 Hx of [place] use of blood thinners [Z79.01] 08/11/2016 [facility] (current) use of anticoagulants [Z79.*03/18/2019 Chronic midline low back pain without sciatica *07/02/2019 Type 2 diabetes mellitus without complication, *12/30/2020 Leg swelling [M79.89] 08/06/2021 Former smoker [Z87.891] 08/06/2021 Bursitis of left shoulder [M75.52] 08/06/2021 08/31/2021 Tendinitis of left shoulder [M77.8] 08/31/2021 08/31/2021 Post-operative pain [G89.18] 09/16/2021 Acute pain of left shoulder [M25.512] 09/16/2021 Bursitis of left shoulder [M75.52] 09/16/2021 Tendinitis of left shoulder [M77.8] 09/16/2021 Inflammatory polyarthropathy (HCC) [M06.4] 12/12/2022 S/P shoulder surgery [Z98.890] 12/30/2022 COVID-19 [U07.1] 04/18/2023 Encounter Status:Closed by PINKY DAWKINS on 09/27/24 Normal [facility] CNPNon 09-24-2024 CNPN Telephone (PHAMTE) MORENA MARTINEZ ([id number]) 1965 F Date Time Provider Department 09/24/24 JOVANNY PERALTA During your visit today, we recorded the following information about you: Jovanny Peralta [facility] 09/24/2024 9:06 AM Signed [facility] Ambulatory Pharmacy Anticoagulation Clinic Anticoagulation Episode Summary Anticoagulation Care Providers Provider Role Specialty Phone number Milka Mas MD Family Medicine [phone] Morena Martinez is a 59 year old year old female patient being evaluated today for a Telemanagement visit. Patient is currently on the following anticoagulant(s) Warfarin. Labs Lab Results Component Value Date INR 2.2 09/23/2024 INR 2.0 09/10/2024 INR 3.0 08/25/2024 Lab Results Component Value Date HB 15.2 04/09/2021 HB 14.8 01/07/2020 HB 14.6 06/24/2019 Lab Results Component Value Date HCT 46.7 (H) 04/09/2021 HCT 46.0 01/07/2020 HCT 46.8 (H) 06/24/2019 Lab Results Component Value Date PLT 299 04/09/2021 PLT 244 01/07/2020 PLT 273 06/24/2019 Lab Results Component Value Date CREAT 0.78 07/10/2024 CREAT 0.76 02/01/2024 CREAT 0.72 11/09/2023 No components found for: TBILI3 Lab Results Component Value Date ALT 17 07/10/2024 ALT 16 02/01/2024 ALT 18 11/09/2023 Lab Results Component Value Date AST 21 07/10/2024 AST 17 02/01/2024 AST 20 11/09/2023 CrCl cannot be calculated (Unknown ideal weight.). 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: Anticoagulation Episode Summary Current INR goal: 2.0-3.0 Assessment: INR result of 2.2 is therapeutic Plan: Current Warfarin Dosing As of 09/24/2024 Full warfarin instructions: 5 mg every Fri; 7.5 mg all other days Sent NOBOT message Advised patient to continue current weekly dose as noted above Next home INR check scheduled on 10/08/2024 Patient advised to call the PAC with any medication changes, bleeding/bruising concerns, recent changes in vitamin k consumption, if any procedures are coming up, if they have been ill or in the hospital, and if they have missed any doses of warfarin. Jovanny Peralta [facility] Clinical Pharmacist, Pharmacy Anticoagulation Clinic Pharmacy Anticoagulation Clinic Pager: [phone]. Allergies As of Date: 09/24/2024 Noted Allergy Reaction LEVAQUIN (LEVOFLOXACIN) 07/19/2022 14 - Other: See Comments Comments: Notes body aches and joint pain when on medication AUGMENTIN (AMOXICILLIN-POT CLAVUL*12/31/2004 14 - Other: See [...] - Swelling Comments: ankle swelling Date Reviewed: 09/18/2024 Reviewed by: Patsy Cavazos MA - Fully Assessed Reason for Visit: Anticoagulation Telephone Fu [[id number]] Cmt: Home INR result Prescriptions as of 09/24/2024 - nystatin (MYCOSTATIN) cream Apply to affected area two times a day. - atenolol (TENORMIN) 50 mg tablet Taking 50 mg once daily - lisinopril (ZESTRIL) 10 mg tablet Take 1 tablet by mouth once daily. - acetaminophen-codeine (TYLENOL-CODEINE #3) 300-30 mg per tablet Take 1 tablet by mouth two times a day as needed for pain for up to 90 days. - semaglutide (OZEMPIC) 1 mg/dose (4 mg/3 mL) pen Inject 1 mg subcutaneously one time a week. - tiZANidine (ZANAFLEX) 4 mg tablet Take 1 tablet by mouth every 6 hours as needed. - gabapentin (NEURONTIN) 300 mg capsule Take 1 capsule by mouth daily at bedtime for 180 days. - warfarin (COUMADIN) 5 mg tablet 7.5 mg daily - furosemide (LASIX) 40 mg tablet Take 1 tablet by mouth once daily. Problem List As Of Date 09/24/2024 Noted Resolved Allergic Rhinitis, Cause Unspecified [J30.9] 12/31/2004 Diverticulosis of Colon (without Mention of Hem* Irritable Bowel Syndrome [K58.9] Migraine NOS/Intractable [G43.919] Other Disorders of Bladder [596] Diffuse Cystic Mastopathy [N60.19] Loc Osteoarth NOS-Site NEC [M19.90] Other and Unspecified Disc Disorder of Unspecif* Esophageal Reflux [K21.9] 04/15/2005 Embolism and thrombosis (HCC) [I74.9] 08/22/2007 Restless Legs Syndrome (RLS) [G25.81] 06 (more content not included)... Normal [facility] CNOVon 09-18-2024 CNOV Office Visit (ORMDNA ) MORENA MARTINEZ ([id number]) 1965 F Date Time Provider Department 09/18/24 11:45 AM LISETTE BANKS During your visit today, we recorded the following information about you: Lisette Banks DO 09/19/2024 12:09 PM Signed Reason for Visit/Chief Complaint Morena is a 59-year-old female with a history of hip and back pain, presenting for evaluation of worsening right hip pain. Patient presents with: Right Hip - New, Pain History of Present Illness: PAIN EVALUATION 09/17/2024 1514 09/18/2024 1140 09/18/2024 1142 Pain Level: -- 3 -- Pain Location: Hip-Right Hip-Right -- Description: Aching;Stabbing;Stiffness Aching;Stabbing;Stiffness;Shoo ting -- Duration Amount of Time: -- 2 -- Duration Units: Days Months -- Frequency: Intermittent Continuous -- Intervention/Comfort measure: Medication;Relaxation Relaxation;Medication -- tylenol with codine tylenol with codeine HPI: Right Hip Pain: - Chronic right hip pain, worsening since . - Pain localized to the groin, radiating to the back and down the front of the thigh. - Aggravated by bending over, driving, and moving from brake to gas pedal. - Severe enough to cause crying when sitting on the toilet. - Minimal relief with Tylenol. - Recent X-rays from July 10 reportedly showed nothing wrong according to previous providers. - Denies pain radiating to the foot. Back Pain: - Chronic back pain for several years. - History of bulging discs in the lower back and between the shoulder blades. - Previous providers have reportedly told Morena there was nothing wrong with the back. Medications: - Coumadin. - Antihypertensive medication. - Ozempic 1 mg.Patient presents with right hip pain the last 2 months. She denies any known injury. She notes that she gets shooting pain into the thigh when she is bending over or when she is on her feet for long periods. She notes the pain to be lateral aspect of the right hip and also in the right groin. She has tried rest and tylenol with codeine. Review of Systems: Patient did not have, and does not currently have, any weight loss, malaise, fever, chills, headache, chest pain, chest pressure, palpitations, cough, shortness of breath, orthopnea, paroxsymal nocturnal dyspnea, nausea, vomiting, diarrhea, constipation, melena, hematochezia, urinary difficulties, prolonged bleeding, easily bruising, heat or cold intolerance, new onset joint pain or swelling, new onset extremity weakness or numbness, new onset auditory or visual disturbances, lightheadedness, dizziness, partial loss of consciousness or full loss of consciousness. Current Outpatient Medications on File Prior to Visit Medication Sig nystatin (MYCOSTATIN) cream Apply to affected area two times a day. atenolol (TENORMIN) 50 mg tablet Taking 50 mg once daily lisinopril (ZESTRIL) 10 mg tablet Take 1 tablet by mouth once daily. acetaminophen-codeine (TYLENOL-CODEINE #3) 300-30 mg per tablet Take 1 tablet by mouth two times a day as needed for pain for up to 90 days. semaglutide (OZEMPIC) 1 mg/dose (4 mg/3 mL) pen Inject 1 mg subcutaneously one time a week. tiZANidine (ZANAFLEX) 4 mg tablet Take 1 tablet by mouth every 6 hours as needed. gabapentin (NEURONTIN) 300 mg capsule Take 1 capsule by mouth daily at bedtime for 180 days. warfarin (COUMADIN) 5 mg tablet 7.5 mg daily furosemide (LASIX) 40 mg tablet Take 1 tablet by mouth once daily. No current facility-administered medications on file prior to visit. ALLERGIES Allergen Reactions Levaquin [Levofloxa* Other: See Comments Notes body aches and joint pain when on medication Augmentin [Amoxicil* Other: See Comments Adverse effect, developed yeast infection Bextra [Valdecoxib] Swelling Ankle swelling Celebrex [Celecoxib] Swelling ankle swelling Erythromycin Rash Latex Lovenox [Enoxaparin* Rash Vioxx [Rofecoxib] Swelling ankle swelling Voltaren [Diclofena* Swelling ankle swelling Physical Exam: Vitals: There were no vitals taken for this visit. Psych: Pleasant, good affect and mood General Appearance: Well appearing, alert, in no acute distress, well-hydrated, well nourished.. Skin: Skin color, texture, turgor normal, no suspicious rashes or lesions. Peripheral Pulses: Normal. Neurologic: Gait normal. Reflexes normal and symmetric. Sensation grossly intact.. Lymph Nodes: No cervical lymphadenopathy, No supraclavicular lymphadenopathy, No axillary lymphadenopathy., and No inguinal lymphadenopathy.. Respiratory: No recent pulmonary infection, hemoptysis, chronic cough, or shortness of breath at rest Rheumatologic: Joint deformities: right hip pain Right Hip Exam Tenderness The patient is experiencing tenderness in the anterior. Range of Motion External rotation: abnormal Internal rotation: abn (more content not included)... Normal [facility] MORENA MARTINEZ ([id number]) 1965 F Date Time Provider Department 09/10/24 JOVANNY PERALTA During your visit today, we recorded the following information about you: Jovanny Peralta [facility] 09/10/2024 5:04 PM Signed [facility] Ambulatory Pharmacy Anticoagulation Clinic Anticoagulation Episode Summary Anticoagulation Care Providers Provider Role Specialty Phone number Milka Mas MD Family Medicine [phone] Morena Martinez is a 59 year old year old female patient being evaluated today for a Telemanagement visit. Patient is currently on the following anticoagulant(s) Warfarin. Labs Lab Results Component Value Date INR 2.0 09/10/2024 INR 3.0 08/25/2024 INR 2.9 08/08/2024 Lab Results Component Value Date HB 15.2 04/09/2021 HB 14.8 01/07/2020 HB 14.6 06/24/2019 Lab Results Component Value Date HCT 46.7 (H) 04/09/2021 HCT 46.0 01/07/2020 HCT 46.8 (H) 06/24/2019 Lab Results Component Value Date PLT 299 04/09/2021 PLT 244 01/07/2020 PLT 273 06/24/2019 Lab Results Component Value Date CREAT 0.78 07/10/2024 CREAT 0.76 02/01/2024 CREAT 0.72 11/09/2023 No components found for: TBILI3 Lab Results Component Value Date ALT 17 07/10/2024 ALT 16 02/01/2024 ALT 18 11/09/2023 Lab Results Component Value Date AST 21 07/10/2024 AST 17 02/01/2024 AST 20 11/09/2023 CrCl cannot be calculated (Unknown ideal weight.). 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: Anticoagulation Episode Summary Current INR goal: 2.0-3.0 Assessment: INR result of 2.0 is therapeutic Plan: Current Warfarin Dosing As of 09/10/2024 Full warfarin instructions: 5 mg every Fri; 7.5 mg all other days Sent NOBOT message Advised patient to continue current weekly dose as noted above Next home INR check scheduled on 09/24/2024 Patient advised to call the PAC with any medication changes, bleeding/bruising concerns, recent changes in vitamin k consumption, if any procedures are coming up, if they have been ill or in the hospital, and if they have missed any doses of warfarin. Jovanny Peralta [facility] Clinical Pharmacist, Pharmacy Anticoagulation Clinic Pharmacy Anticoagulation Clinic Pager: [phone]. Allergies As of Date: 09/10/2024 Noted Allergy Reaction LEVAQUIN (LEVOFLOXACIN) 07/19/2022 14 - Other: See Comments Comments: Notes body aches and joint pain when on medication AUGMENTIN (AMOXICILLIN-POT CLAVUL*12/31/2004 14 - Other: See [...] - Swelling Comments: ankle swelling Date Reviewed: 07/18/2024 Reviewed by: Catrachito Serna MA - Fully Assessed Reason for Visit: Anticoagulation Telephone Fu [148] Cmt: Home INR result Prescriptions as of 09/10/2024 - atenolol (TENORMIN) 50 mg tablet Taking 50 mg once daily - lisinopril (ZESTRIL) 10 mg tablet Take 1 tablet by mouth once daily. - acetaminophen-codeine (TYLENOL-CODEINE #3) 300-30 mg per tablet Take 1 tablet by mouth two times a day as needed for pain for up to 90 days. - semaglutide (OZEMPIC) 1 mg/dose (4 mg/3 mL) pen Inject 1 mg subcutaneously one time a week. - tiZANidine (ZANAFLEX) 4 mg tablet Take 1 tablet by mouth every 6 hours as needed. - gabapentin (NEURONTIN) 300 mg capsule Take 1 capsule by mouth daily at bedtime for 180 days. - warfarin (COUMADIN) 5 mg tablet 7.5 mg daily - furosemide (LASIX) 40 mg tablet Take 1 tablet by mouth once daily. - nystatin (MYCOSTATIN) cream Apply to affected area twice daily. Problem List As Of Date 09/10/2024 Noted Resolved Allergic Rhinitis, Cause Unspecified [J30.9] 12/31/2004 Diverticulosis of Colon (without Mention of Hem* Irritable Bowel Syndrome [K58.9] Migraine NOS/Intractable [G43.919] Other Disorders of Bladder [596] Diffuse Cystic Mastopathy [N60.19] Loc Osteoarth NOS-Site NEC [M19.90] Other and Unspecified Disc Disorder of Unspecif* Esophageal Reflux [K21.9] 04/15/2005 Embolism and thrombosis (HCC) [I74.9] 08/22/2007 Restless Legs Syndrome (RLS) [G25.81] 10/22/2007 (more content not included)... Normal [facility] CNPNon 08-26-2024 CNPN Telephone (PHAMTE) MORENA MARTINEZ ([id number]) 1965 F Date Time Provider Department 08/26/24 MANAS RICHTER During your visit today, we recorded the following information about you: Manas Richter RPh 08/26/2024 7:03 AM Signed [facility] Ambulatory Pharmacy Anticoagulation Clinic Anticoagulation Episode Summary Anticoagulation Care Providers Provider Role Specialty Phone number Milka Mas MD Family Medicine [phone] Morena Martinez is a 59 year old year old female patient being evaluated today for a Telemanagement visit. Patient is currently on the following anticoagulant(s) Warfarin. Labs PT INR (no units) Date Value 07/28/2022 2.7 (pt reported) 03/20/2022 2.7 01/23/2022 2.9 INR Home CoaguChek (no units) Date Value 08/25/2024 3.0 08/08/2024 2.9 07/21/2024 3.0 Hemoglobin (g/dL) Date Value 04/09/2021 15.2 Hematocrit (%) Date Value 04/09/2021 46.7 Platelet Count (k/uL) Date Value 04/09/2021 299 Creatinine (mg/dL) Date Value 07/10/2024 0.78 02/01/2024 0.76 11/09/2023 0.72 03/23/2021 0.60 12/07/2020 0.62 04/01/2020 0.70 Bilirubin, Total (mg/dL) Date Value 07/10/2024 0.6 12/07/2020 0.6 ALT (U/L) Date Value 07/10/2024 17 12/07/2020 33 AST (U/L) Date Value 07/10/2024 21 12/07/2020 35 CrCl cannot be calculated (Unknown ideal weight.). 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: Anticoagulation Episode Summary Current INR goal: 2.0-3.0 Assessment: INR result of 3.0 is therapeutic Plan: Current Warfarin Dosing As of 08/26/2024 Full warfarin instructions: 5 mg every Fri; 7.5 mg all other days Sent NOBOT message Advised patient to continue current weekly dose as noted above Next INR check due on 09/09/2024 Manas Richter [facility] Clinical Pharmacist, Pharmacy Anticoagulation Clinic Pharmacy Anticoagulation Clinic Pager: [phone]. Manas Richter [facility] 09/09/2024 4:10 PM Signed Patient was due to test INR today. Will continue to monitor for results. Follow up in one week if no results received. Patient's INR Goal range is - 2.0-3.0 PT INR (no units) Date Value 07/28/2022 2.7 (pt reported) 03/20/2022 2.7 01/23/2022 2.9 INR Home CoaguChek (no units) Date Value 08/25/2024 3.0 08/08/2024 2.9 07/21/2024 3.0 Patient is in titration phase - No Patient has dosing provided until next INR - Yes Patient is on an injectable anticoagulant - No Allergies As of Date: 08/26/2024 Noted Allergy Reaction LEVAQUIN (LEVOFLOXACIN) 07/19/2022 14 - Other: See Comments Comments: Notes body aches and joint pain when on medication AUGMENTIN (AMOXICILLIN-POT CLAVUL*12/31/2004 14 - Other: See [...] - Swelling Comments: ankle swelling Date Reviewed: 07/18/2024 Reviewed by: Catrachito Serna MA - Fully Assessed Reason for Visit: Anticoagulation Telephone Fu [148] Cmt: Home INR Result Prescriptions as of 09/09/2024 - atenolol (TENORMIN) 50 mg tablet Taking 50 mg once daily - lisinopril (ZESTRIL) 10 mg tablet Take 1 tablet by mouth once daily. - acetaminophen-codeine (TYLENOL-CODEINE #3) 300-30 mg per tablet Take 1 tablet by mouth two times a day as needed for pain for up to 90 days. - semaglutide (OZEMPIC) 1 mg/dose (4 mg/3 mL) pen Inject 1 mg subcutaneously one time a week. - tiZANidine (ZANAFLEX) 4 mg tablet Take 1 tablet by mouth every 6 hours as needed. - gabapentin (NEURONTIN) 300 mg capsule Take 1 capsule by mouth daily at bedtime for 180 days. - warfarin (COUMADIN) 5 mg tablet 7.5 mg daily - furosemide (LASIX) 40 mg tablet Take 1 tablet by mouth once daily. - nystatin (MYCOSTATIN) cream Apply to affected area twice daily. Problem List As Of Date 08/26/2024 Noted Resolved Allergic Rhinitis, Cause Unspecified [J30.9] 12/31/2004 Diverticulosis of Colon (without Mention of Hem* Irritable Bowel Syndrome [K58.9] Migraine NOS/Intractable [G43.919] Other Disorders of Bladder [596] Diffuse Cystic Mastopathy [N60.19] Loc Osteoarth NOS- (more content not included)... Normal [facility] Carlos 08-08-2024 [facility] (PHARAV) MORENA MARTINEZ ([id number]) 1965 F Date Time Provider Department 08/08/24 JAMEE HDZ During your visit today, we recorded the following information about you: Jamee Hdz, [facility] 08/08/2024 7:58 AM Signed [facility] Ambulatory Pharmacy Anticoagulation Clinic Anticoagulation Episode Summary Anticoagulation Care Providers Provider Role Specialty Phone number Milka Mas MD Family Medicine [phone] Morena Martinez is a 59 year old year old female patient being evaluated today for a Telemanagement visit. Patient is currently on the following anticoagulant(s) Warfarin. Labs PT INR (no units) Date Value 07/28/2022 2.7 (pt reported) 03/20/2022 2.7 01/23/2022 2.9 INR Home CoaguChek (no units) Date Value 08/08/2024 2.9 07/21/2024 3.0 07/11/2024 2.9 Hemoglobin (g/dL) Date Value 04/09/2021 15.2 Hematocrit (%) Date Value 04/09/2021 46.7 Platelet Count (k/uL) Date Value 04/09/2021 299 Creatinine (mg/dL) Date Value 07/10/2024 0.78 02/01/2024 0.76 11/09/2023 0.72 03/23/2021 0.60 12/07/2020 0.62 04/01/2020 0.70 Bilirubin, Total (mg/dL) Date Value 07/10/2024 0.6 12/07/2020 0.6 ALT (U/L) Date Value 07/10/2024 17 12/07/2020 33 AST (U/L) Date Value 07/10/2024 21 12/07/2020 35 CrCl cannot be calculated (Unknown ideal weight.). 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 Embolism and thrombosis (hcc) Anticoagulation Episode Summary Current INR goal: 2.0-3.0 Assessment: INR result of 2.9 is therapeutic Plan: Current Warfarin Dosing As of 08/08/2024 Full warfarin instructions: 5 mg every Fri; 7.5 mg all other days Sent NOBOT message Advised patient to continue current weekly dose as noted above Next home INR check scheduled on 08/22/2024 Patient advised to call the PAC with any medication changes, bleeding/bruising concerns, recent changes in vitamin k consumption, if any procedures are coming up, if they have been ill or in the hospital, and if they have missed any doses of warfarin. Jamee Hdz [facility] Clinical Pharmacist, Pharmacy Anticoagulation Clinic Pharmacy Anticoagulation Clinic Pager: [phone]. Jamee Hdz [facility] 08/22/2024 2:43 PM Signed Patient was due to test INR today. Will continue to monitor for results. Follow up in one week if no results received. Patient's INR Goal range is - 2.0-3.0 PT INR (no units) Date Value 07/28/2022 2.7 (pt reported) 03/20/2022 2.7 01/23/2022 2.9 INR Home CoaguChek (no units) Date Value 08/08/2024 2.9 07/21/2024 3.0 07/11/2024 2.9 Patient is in titration phase - No Patient has dosing provided until next INR - Yes Patient is on an injectable anticoagulant - No Jamee Hdz [facility] Allergies As of Date: 08/08/2024 Noted Allergy Reaction LEVAQUIN (LEVOFLOXACIN) 07/19/2022 14 - Other: See Comments Comments: Notes body aches and joint pain when on medication AUGMENTIN (AMOXICILLIN-POT CLAVUL*12/31/2004 14 - Other: See [...] - Swelling Comments: ankle swelling Date Reviewed: 07/18/2024 Reviewed by: Catrachito Serna MA - Fully Assessed Reason for Visit: Anticoagulation Telephone Fu [148] Cmt: Home INR Primary Visit Diagnosis:[facility]PC (current) use of anticoagulants [Z79.01] Other Visit Diagnosis: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 - semaglutide (OZEMPIC) 1 mg/dose (4 mg/3 mL) pen Inject 1 mg subcutaneously one time a week. - tiZANidine (ZANAFLEX) 4 mg tablet Take 1 tablet by mouth every 6 hours as needed. - gabapentin (NEURONTIN) 300 mg capsule Take 1 capsule by mouth daily at bedtime for 180 days. - atenolol (TENORMIN) 50 mg tablet Taking 50 mg once daily - warfarin (COUMADIN) 5 mg tablet 7.5 mg daily - lisinopril (ZESTRIL) 1 (more content not included)... Normal [facility] [employer] BREAST Tagent RTon 07-31 [facility] [employer] BREAST Tagent RT * * *Final Report* * * DATE OF EXAM: Jul 31 2024 1:10PM [facility] [id number] - [employer] BREAST Tagent RT / PROCEDURE REASON: Abnormal mammogram * * * * Physician Interpretation * * * * [place] [id number] #[id number] - [facility] [employer] BREAST Tagent RT HISTORY: 59 year-old patient seen for diagnostic evaluation of a palpable abnormality in the right breast. Patient states no personal history of breast cancer. The patient has a family history of breast cancer. COMPARISON STUDIES: The present examination has been compared to prior imaging studies dated 04/12/2016 (mammogram), 10/17/2018 (mammogram), 11/29/2019 (mammogram), 11/30/2020 (mammogram) and 07/18/2024 (mammogram). ULTRASOUND TECHNIQUE: Targeted ultrasound of the indicated area was performed. Blank scale images were saved. ULTRASOUND FINDINGS: There are no suspicious findings in the imaged area. IMPRESSION: There are no suspicious sonographic findings in the imaged area. Return to annual screening mammogram is recommended. Annual mammogram will be due in 1 year. BI-RADS Category 1: Negative Interpreting Radiologist: Bryn Perez M.D. Electronically signed on: 07/31/2024 Thermospray Operator: TANA Transcrikathi Date/Time: Jul 31 2024 12:55P Dictated by : BRYN PEREZ MD This examination was interpreted and the report reviewed and electronically signed by: BRYN PEREZ MD on Jul 31 2024 1:24PM EST [id number] Normal [facility] US Breast - right limitedon 07-31-2024 IMPRESSION: There are no suspicious sonographic findings in the imaged area. Return to annual screening mammogram is recommended. Annual mammogram will be due in 1 year. BI-RADS Category 1: Negative Interpreting Radiologist: Bryn Perez M.D. Electronically signed on: 07/31/2024 Thermospray Operator: TANA Transcrikathi Date/Time: Jul 31 2024 12:55P Dictated by : BRYN PEREZ MD This examination was interpreted and the report reviewed and electronically signed by: BRYN PEREZ MD on Jul 31 2024 1:24PM EST DIVISION OF RADIOLOGY * * *Final Report* * * DATE OF EXAM: Jul 31 2024 1:10PM U [id number] - [facility] [employer] BREAST Tagent RT / PROCEDURE REASON: Abnormal mammogram * * * * Physician Interpretation * * * * [place] [address] #[id number] - [employer] BREAST LTD RT HISTORY: 59 year-old patient seen for diagnostic evaluation of a palpable abnormality in the right breast. Patient states no personal history of breast cancer. The patient has a family history of breast cancer. COMPARISON STUDIES: The present examination has been compared to prior imaging studies dated 04/12/2016 (mammogram), 10/17/2018 (mammogram), 11/29/2019 (mammogram), 11/30/2020 (mammogram) and 07/18/2024 (mammogram). ULTRASOUND TECHNIQUE: Targeted ultrasound of the indicated area was performed. Blank scale images were saved. ULTRASOUND FINDINGS: There are no suspicious findings in the imaged area. DIVISION OF RADIOLOGY Provider, [facility] - 07/31/2024 * * *Final Report* * * DATE OF EXAM: Jul 31 2024 1:10PM [facility] 0594 - [employer] BREAST Tagent RT / PROCEDURE REASON: Abnormal mammogram * * * * Physician Interpretation * * * * [place] [address] #[id number] - [employer] BREAST Tagent RT HISTORY: 59 year-old patient seen for diagnostic evaluation of a palpable abnormality in the right breast. Patient states no personal history of breast cancer. The patient has a family history of breast cancer. COMPARISON STUDIES: The present examination has been compared to prior imaging studies dated 04/12/2016 (mammogram), 10/17/2018 (mammogram), 11/29/2019 (mammogram), 11/30/2020 (mammogram) and 07/18/2024 (mammogram). ULTRASOUND TECHNIQUE: Targeted ultrasound of the indicated area was performed. Blank scale images were saved. ULTRASOUND FINDINGS: There are no suspicious findings in the imaged area. IMPRESSION IMPRESSION: There are no suspicious sonographic findings in the imaged area. Return to annual screening mammogram is recommended. Annual mammogram will be due in 1 year. BI-RADS Category 1: Negative Interpreting Radiologist: Bryn Perez M.D. Electronically signed on: 07/31/2024 Thermospray Operator: TANA Transcribe Date/Time: Jul 31 2024 12:55P Dictated by : BRYN PEREZ MD This examination was interpreted and the report reviewed and electronically signed by: BRYN PEREZ MD on Jul 31 2024 1:24PM EST [facility] Radiology Study observation (narrative) [facility] US Breast - right limitedOrd ered By: [facility]cf Provider on 07-31-2024 [facility] CNPNon 07-22-2024 CNPN Telephone (PHAMTE) MORENA MARTINEZ ([id number]) 1965 F Date Time Provider Department 07/22/24 MANAS RICHTER During your visit today, we recorded the following information about you: Manas Richter [facility] 07/22/2024 7:29 AM Signed [facility] Ambulatory Pharmacy Anticoagulation Clinic Anticoagulation Episode Summary Anticoagulation Care Providers Provider Role Specialty Phone number Milka Mas MD Family Medicine [phone] Morena J Juan is a 59 year old year old female patient being evaluated today for a Telemanagement visit. Patient is currently on the following anticoagulant(s) Warfarin. Labs PT INR (no units) Date Value 07/28/2022 2.7 (pt reported) 03/20/2022 2.7 01/23/2022 2.9 INR Home CoaguChek (no units) Date Value 07/21/2024 3.0 07/11/2024 2.9 06/24/2024 2.8 Hemoglobin (g/dL) Date Value 04/09/2021 15.2 Hematocrit (%) Date Value 04/09/2021 46.7 Platelet Count (k/uL) Date Value 04/09/2021 299 Creatinine (mg/dL) Date Value 07/10/2024 0.78 02/01/2024 0.76 11/09/2023 0.72 03/23/2021 0.60 12/07/2020 0.62 04/01/2020 0.70 Bilirubin, Total (mg/dL) Date Value 07/10/2024 0.6 12/07/2020 0.6 ALT (U/L) Date Value 07/10/2024 17 12/07/2020 33 AST (U/L) Date Value 07/10/2024 21 12/07/2020 35 CrCl cannot be calculated (Unknown ideal weight.). 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: Anticoagulation Episode Summary Current INR goal: 2.0-3.0 Assessment: INR result of 3.0 is therapeutic Plan: Current Warfarin Dosing As of 07/22/2024 Full warfarin instructions: 5 mg every Fri; 7.5 mg all other days Sent NOBOT message Advised patient to continue current weekly dose as noted above Next INR check due on 08/05/2024 Manas Richter [facility] Clinical Pharmacist, Pharmacy Anticoagulation Clinic Pharmacy Anticoagulation Clinic Pager: [phone]. Manas Richter RPh 08/05/2024 4:24 PM Signed Patient was due to test INR today. Will continue to monitor for results. Follow up in one week if no results received. Patient's INR Goal range is - 2.0-3.0 PT INR (no units) Date Value 07/28/2022 2.7 (pt reported) 03/20/2022 2.7 01/23/2022 2.9 INR Home CoaguChek (no units) Date Value 07/21/2024 3.0 07/11/2024 2.9 06/24/2024 2.8 Patient is in titration phase - No Patient has dosing provided until next INR - Yes Patient is on an injectable anticoagulant - No Allergies As of Date: 07/22/2024 Noted Allergy Reaction LEVAQUIN (LEVOFLOXACIN) 07/19/2022 14 - Other: See Comments Comments: Notes body aches and joint pain when on medication AUGMENTIN (AMOXICILLIN-POT CLAVUL*12/31/2004 14 - Other: See [...] - Swelling Comments: ankle swelling Date Reviewed: 07/18/2024 Reviewed by: Catrachito Serna MA - Fully Assessed Reason for Visit: Anticoagulation Telephone Fu [148] Cmt: Home INR Result Prescriptions as of 08/05/2024 - acetaminophen-codeine (TYLENOL-CODEINE #3) 300-30 mg per tablet Take 1 tablet by mouth two times a day as needed for pain for up to 90 days. - semaglutide (OZEMPIC) 1 mg/dose (4 mg/3 mL) pen Inject 1 mg subcutaneously one time a week. - tiZANidine (ZANAFLEX) 4 mg tablet Take 1 tablet by mouth every 6 hours as needed. - gabapentin (NEURONTIN) 300 mg capsule Take 1 capsule by mouth daily at bedtime for 180 days. - atenolol (TENORMIN) 50 mg tablet Taking 50 mg once daily - warfarin (COUMADIN) 5 mg tablet 7.5 mg daily - lisinopril (ZESTRIL) 10 mg tablet Take 1 tablet by mouth once daily. - furosemide (LASIX) 40 mg tablet Take 1 tablet by mouth once daily. - nystatin (MYCOSTATIN) cream Apply to affected area twice daily. Problem List As Of Date 07/22/2024 Noted Resolved Allergic Rhinitis, Cause Unspecified [J30.9] 12/31/2004 Diverticulosis of Colon (without Mention of Hem* Irritable Bowel Syndrome [K58.9] Migraine NOS/Intractable [G43.919] Other Disorders of Bladder [596] Diffuse Cystic Mastopathy [N60.19] Loc Osteoarth NOS-Si (more content not included)... Normal [facility] CNPNon 07-19-2024 [facility] Tele[facility] (INTMWS) MORENA MARTINEZ ([id number]) 1965 F Date Time Provider Department 07/19/24 MILKA MAS INTMWS During your visit today, we recorded the following information about you: Zamzam Keith LPN 07/19/2024 8:51 AM Addendum Opened in error. Allergies As of Date: 07/19/2024 Noted Allergy Reaction LEVAQUIN (LEVOFLOXACIN) 07/19/2022 14 - Other: See Comments Comments: Notes body aches and joint pain when on medication AUGMENTIN (AMOXICILLIN-POT CLAVUL*12/31/2004 14 - Other: See [...] - Swelling Comments: ankle swelling Date Reviewed: 07/18/2024 Reviewed by: Catrachito Serna MA - Fully Assessed Reason for Visit: Insurance Authorization [[id number]] Prescriptions as of 07/19/2024 - acetaminophen-codeine (TYLENOL-CODEINE #3) 300-30 mg per tablet Take 1 tablet by mouth two times a day as needed for pain for up to 90 days. - semaglutide (OZEMPIC) 1 mg/dose (4 mg/3 mL) pen Inject 1 mg subcutaneously one time a week. - tiZANidine (ZANAFLEX) 4 mg tablet Take 1 tablet by mouth every 6 hours as needed. - gabapentin (NEURONTIN) 300 mg capsule Take 1 capsule by mouth daily at bedtime for 180 days. - atenolol (TENORMIN) 50 mg tablet Taking 50 mg once daily - warfarin (COUMADIN) 5 mg tablet 7.5 mg daily - lisinopril (ZESTRIL) 10 mg tablet Take 1 tablet by mouth once daily. - furosemide (LASIX) 40 mg tablet Take 1 tablet by mouth once daily. - nystatin (MYCOSTATIN) cream Apply to affected area twice daily. 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] 08/22/2007 Restless Legs Syndrome (RLS) [G25.81] 10/22/2007 Obstructive sleep apnea (adult) (pediatric) [G4*10/22/2007 08/31/2021 Essential Hypertension, Benign [I10] 11/19/2007 Other abnormal glucose [R73.09] 11/19/2007 07/09/2021 Dysmetabolic syndrome X [E88.810] 11/19/2007 07/09/2021 Palpitations [R00.2] 01/29/2009 03/09/2012 Routine Gynecological Examination [Z01.419] 02/11/2009 Class: Chronic Class 3 severe obesity due to excess calories w*02/11/2009 Abdominal pain, left lower quadrant [R10.32] 09/02/2009 03/09/2012 Diarrhea [R19.7] 09/02/2009 07/09/2021 Knee pain [M25.569] 04/27/2010 Status post total right knee replacement [Z96.6*07/25/2011 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] 10/13/2011 07/09/2021 Perirectal abscess [K61.1] 09/23/2015 07/09/2021 Infrapatellar bursitis of right knee [M70.51] 08/11/2016 07/09/2021 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] 08/11/2016 Hx of [place] [facility] use of blood thinners [Z92.29] 08/11/2016 FPC (current) use of anticoagulants [Z79.*03/18/2019 Chronic midline low back pain without sciatica *07/02/2019 Type 2 diabetes mellitus without complication, *12/30/2020 Leg swelling [M79.89] 08/06/2021 Former smoker [Z87.891] 08/06/2021 Bursitis of left shoulder [M75.52] 08/06/2021 08/31/2021 Tendinitis of left shoulder [M77.8] 08/31/2021 08/31/2021 Post-operative pain [G89.18] 09/16/2021 Acute pain of left shoulder [M25.512] 09/16/2021 Bursitis of left shoulder [M75.52] 09/16/2021 Tendinitis of left shoulder [M77.8] 09/16/2021 Inflammatory polyarthropathy (HCC) [M06.4] 12/12/2022 S/P shoulder surgery [Z98.890] 12/30/2022 COVID-19 [U07.1] 04/18/2023 Encounter Status:Closed by ZAMZAM KEITH on 07/19/24 Normal [facility] DBT Breast - bilateral scree [place] 07-19-2024 * * *Final Report* * * DATE OF EXAM: Jul 18 2024 1:02PM [facility] 0582 - [facility] SCREENING W MARIAH / PROCEDURE REASON: Encounter for screening mammogram for breast cancer * * * * Physician Interpretation * * * * RESULT: [place] [address] [place] [address] #[id number] - [facility] SCREENING W MARIAH HISTORY: 59 year-old patient seen for screening. Patient states no personal history of breast cancer. The patient has a family history of breast cancer. Patient reports area of clinical concern on the right. COMPARISON STUDIES: The present examination has been compared to prior imaging studies dated 10/17/2018 (mammogram), 11/29/2019 (mammogram) and 11/30/2020 (mammogram). MAMMOGRAM TECHNIQUE: The study was acquired using full field digital technology and interpreted from soft copy. Digital Breast Tomosynthesis (DBT) images were obtained and used to assist in the interpretation of this examination. MAMMOGRAM FINDINGS: The breasts are almost entirely fatty. Tech Comment: Patient noticed focal swelling in the areolar area 9-10 o'clock right breast x 3-4 weeks ago. Skin marker applied. No appreciable interval mammographic change in either breast. DIVISION OF RADIOLOGY Provider, [facility] - 07/19/2024 * * *Final Report* * * DATE OF EXAM: Jul 18 2024 1:02PM [facility] 0582 - [facility] SCREENING W MARIAH / PROCEDURE REASON: Encounter for screening mammogram for breast cancer * * * * Physician Interpretation * * * * RESULT: [place] [address] #[id number] - [facility] SCREENING W MARIAH HISTORY: 59 year-old patient seen for screening. Patient states no personal history of breast cancer. The patient has a family history of breast cancer. Patient reports area of clinical concern on the right. COMPARISON STUDIES: The present examination has been compared to prior imaging studies dated 10/17/2018 (mammogram), 11/29/2019 (mammogram) and 11/30/2020 (mammogram). MAMMOGRAM TECHNIQUE: The study was acquired using full field digital technology and interpreted from soft copy. Digital Breast Tomosynthesis (DBT) images were obtained and used to assist in the interpretation of this examination. MAMMOGRAM FINDINGS: The breasts are almost entirely fatty. Tech Comment: Patient noticed focal swelling in the areolar area 9-10 o'clock right breast x 3-4 weeks ago. Skin marker applied. No appreciable interval mammographic change in either breast. IMPRESSION IMPRESSION: Recommend the patient return for targeted sonographic evaluation of the patient reported focal swelling in the areolar region 9-10:00 position of the right breast BI-RADS Category 0: Incomplete: Needs Additional Imaging Evaluation RISK: Based on the Tyrer-Cuzick (TC) risk assessment model, this patient has a 4.4% lifetime risk of developing breast cancer, meaning they are at average risk for developing breast cancer. However, this is only an estimate based on available history provided on the patient's questionnaire. We encourage all patients to talk with their providers about these results, further recommendations for managing breast health, and appropriate supplemental screening options if the patient has dense breast tissue. Interpreting Radiologist: Allyson Roca M.D. Electronically signed on: 07/19/2024 Thermospray Operator: TANA Transcribe Date/Time: Jul 18 2024 12:31P Dictated by: ALLYSON ROCA MD This examination was interpreted and the report reviewed and electronically signed by: ALLYSON ROCA MD on Jul 19 2024 3:11PM EST [facility] DBT Breast - bilateral scree ningOrdered By: Ccf Provider on 07-19-2024 [facility] CNOVon 07-18-2024 CNOV Office Visit (FAMPWS ) MORENA MARTINEZ ([id number]) 1965 F Date Time Provider Department 07/18/24 9:20 AM [facility] During your visit today, we recorded the following information about you: Pulse Respiration Blood pressure Weight 64/minute 18/minute 138/90 157.1 kg Milka Mas MD 07/18/2024 11:46 AM Signed Chief Complaint Patient presents with: F/U 3 Month HPI Morena Eppssamantha is a 59 year old female who presents here today for 3 month follow up. No bowel, GI, or urinary issues. DVT: Taking Coumadin, which is managed by pharmacist. HTN: Denies checking BP at home. Has been having occ episodes of feeling like her heart is racing, some SOB, does not feel well. May last all day. Had Zio monitor last year that just showed some SVT. Feels like she walked up a hill. She's had this before and work has been done and the findings were benign, this is why she didn't go to the ED during these episodes. Is taking Lisinopril 10 mg daily and Atenolol 50 mg 1 pill daily. DM AND Obesity: Does not check BS at home. No hypoglycemic episodes or neuropathy sx. Tries to watch diet. Denies much exercise other than staying active around the house amd going outside, walking and taking pictures. Weight last visit was 343 lbs. Taking Ozempic 1 mg weekly which she is getting through pt assistance program. Has started getting the Ozempic back, has taken 3 doses. Edema: both legs; stable with Lasix 40 mg every other day. Pain: Chronic; taking Zanaflex 4 mg prn, Gabapentin 300 mg at bedtime, and Tylenol #3 1 pill BID. Follows with Ortho. Still with right hip pain; had XR done that just showed mild degenerative changes. HM - Mammogram order in, will schedule out front today. Anxiety/Depression screening completed, negative. Past medical history, appointments, medications, allergies reviewed. 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 Diffuse cystic mastopathy Diverticulosis of colon (without mention of hemorrhage) Diverticulosis DVT of leg (deep venous thrombosis) (HCC) Right leg Hypertension Irritable bowel syndrome Localized osteoarthrosis not specified whether primary or secondary, other specified sites RT KNEE Migraine, unspecified, with intractable migraine, so stated, without mention of status migrainosus Migraine Obesity, unspecified Osteoarthritis of right knee Other and unspecified disc disorder of unspecified region Intervertebral disc disorders Other disorders of bladder Personal history of colonic polyps 01/21/2015 PMH - PAST MEDICAL HISTORY OF 1989 Pulmonary Embolism Previous Surgical History PAST SURGICAL HISTORY Procedure Laterality Date ANESTH DIAGNOSTIC ARTHROSCOPIC PROC KNEE JOINT 1994 LT KNEE ANESTH DIAGNOSTIC ARTHROSCOPIC PROC KNEE JOINT 1994 RT KNEE APPENDECTOMY ARTHRODESIS CMC JNT THUMB W/WO FIX Right 02/21/2018 ARTHROSCOPY KNEE DIAGNOSTIC W/WO SYNOVIAL BX SPX 2007 Right knee ARTHRP KNE CONDYLEANDPLATU MEDIALANDLAT COMPARTMENTS Right 06/27/2011 CHOLECYSTECTOMY Cholecystectomy COLONOSCOPY FLX DX W/COLLJ SPEC WHEN PFRMD 01/21/2015 Repeat 2024 I/D PERIANAL ABSCESS, SUPERFICIAL 08/31/2011 LIG/TRNSXJ FLP TUBE ABDL/VAG APPR UNI/BI REDUCTION OF LARGE BREAST Breast reduction REPAIR ANAL FISTULA W/NICHELLE 12/09/2011 REPAIR OF SHOULDER Left 08/2021 Dr Banks RPR UMBILICAL HRNA 5 YRS/> REDUCIBLE Hernia repair, umbilical >5yr, x2 with mesh TOTAL ABDOMINAL HYSTERECT W/WO RMVL TUBE OVARY Hysterectomy, ARIELLE [place] ECTOPIC W/O SALPINGAND/OOPHORECTOMY Ectopic Family History FAMILY HISTORY Problem Relation Age of Onset Heart Father [place] age 50, sudden Breast Cancer Mother Coronary Artery Disease Brother Quadruple by-pass age 50 Coronary Artery Disease Sister IA late 30's Stroke Sister other (Other) Brother pulmonary embolism other (Other) Sister pulmonary embolism Heart Sister heart attack age 50, stent Diabetes Sister older sister; obese Patient Allergies ALLERGIES Allergen Reactions Levaquin [Levofloxa* Other: See Comments Notes body aches and joint pain when on medication Augmentin [Amoxicil* Other: See Comments Adverse effect, developed yeast infection Bextra [Valdecoxib] Swelling Ankle swelling Celebrex [Celecoxib] Swelling ankle swelling Erythromycin Rash Latex Lovenox [Enoxaparin* Rash Vioxx [Rofecoxib] Swelling ankle swelling Voltaren [Diclofena* Swelling ankle swelling Current Medications Current Outpatient Medications on File Prior to Visit Medication Sig tiZANidine (ZANAFLEX) 4 mg tablet Take 1 tablet by mouth every 6 hours as needed. acetaminophen-codeine (TYLENOL-CODEINE #3) 300-30 mg per tablet Take 1 tablet by mouth two times a day as needed for pain (more content not included)... [facility] ([facility] MORENA MARTINEZ ([id number]) 1965 F Date Time Provider Department 07/18/24 MILKA MAS INTMWS During your visit today, we recorded the following information about you: Zamzam Keith LPN 07/18/2024 12:16 PM Signed Electronic PA completed for ozempic. Zamzam KeithAPURVA 07/19/2024 8:13 AM Signed Prior authorization approved Payer: Carolynn [phone] Note from payer: This drug needs prior authorization (PA). The PA is approved for/through 04/30/[address] [facility]; Pharmacy Coverage Policy. However, there is a concern that may prevent your drug from being filled, or your reimbursement from being paid. The Medicare rule in the Prescription Drug Manual (Chapter 14, Appendix E) says drugs covered under a Pharmaceutical Assistance Program (PAP) cannot be covered under a Part D plan. [employer] follows Medicare rules. The information we have says you are receiving PAP coverage for this drug and per Medicare rules isnt covered. Please contact customer service via the number on the back of your card to resolve. Approval Details Authorized from May 01, 2024 to April 30, 2025 Electronic appeal: Not supported View History Notes Time User Attachment Attachment received from payer. 07/18/2024 6:04 PM Cchs, Rx Priorauth In Document Medication Being Authorized semaglutide (OZEMPIC) 1 mg/dose (4 mg/3 mL) pen Inject 1 mg subcutaneously one time a week. Dispense: 3 mL Refills: 5 Start: 07/18/2024 Class: Normal Diagnoses: Type 2 diabetes mellitus without complication, without long-term current use of insulin ([facility]); Class 3 severe obesity due to excess calories with serious comorbidity and body mass index (BMI) of 50.0 to 59.9 in adult ([facility]) This order has been released to its destination. To be filled at: [facility] [address] [place] [address] [address] - [phone] Pt notified via my chart. Allergies As of Date: 07/18/2024 Noted Allergy Reaction LEVAQUIN (LEVOFLOXACIN) 07/19/2022 14 - Other: See Comments Comments: Notes body aches and joint pain when on medication AUGMENTIN (AMOXICILLIN-POT CLAVUL*12/31/2004 14 - Other: See [...] - Swelling Comments: ankle swelling Date Reviewed: 07/18/2024 Reviewed by: Catrachito Serna MA - Fully Assessed Reason for Visit: Insurance Authorization [[id number]] Prescriptions as of 07/19/2024 - acetaminophen-codeine (TYLENOL-CODEINE #3) 300-30 mg per tablet Take 1 tablet by mouth two times a day as needed for pain for up to 90 days. - semaglutide (OZEMPIC) 1 mg/dose (4 mg/3 mL) pen Inject 1 mg subcutaneously one time a week. - tiZANidine (ZANAFLEX) 4 mg tablet Take 1 tablet by mouth every 6 hours as needed. - gabapentin (NEURONTIN) 300 mg capsule Take 1 capsule by mouth daily at bedtime for 180 days. - atenolol (TENORMIN) 50 mg tablet Taking 50 mg once daily - warfarin (COUMADIN) 5 mg tablet 7.5 mg daily - lisinopril (ZESTRIL) 10 mg tablet Take 1 tablet by mouth once daily. - furosemide (LASIX) 40 mg tablet Take 1 tablet by mouth once daily. - nystatin (MYCOSTATIN) cream Apply to affected area twice daily. 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] 08/22/2007 Restless Legs Syndrome (RLS) [G25.81] 10/22/2007 Obstructive sleep apnea (adult) (pediatric) [G4*10/22/2007 08/31/2021 Essential Hypertension, Benign [I10] 11/19/2007 Other abnormal glucose [R73.09] 11/19/2007 07/09/2021 Dysmetabolic syndrome X [E88.810] 11/19/2007 07/09/2021 Palpitations [R00.2] 01/29/2009 03/09/2012 Routine Gynecological Examination [Z01.419] 02/11/2009 Class: Chronic Class 3 severe obesity due to excess calories w*02/11/2009 Abdominal pain, left lower quadrant [R10.32] 09/02/2009 03/09/2012 Diarrhea [R19.7] 09/02/2009 07/09/2021 Knee pain [M25.569] 04/27/2010 Status post total right knee replacement [Z96.6*07/25/2011 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 Normal [facility] DBT Breast - bilateral scree ningon 07-18-2024 Radiology Study observation (narrative) [facility] ROSA SCREENING W TOMOon 07-18 ROSA SCREENING W MARIAH * * *Final Report* * * DATE OF EXAM: Jul 18 2024 1:02PM DONNIE [id number] - ROSA SCREENING W MARIAH / PROCEDURE REASON: Encounter for screening mammogram for breast cancer * * * * Physician Interpretation * * * * RESULT: [facility] [address] [place] [address] #[id number] - ROSA SCREENING W MARIAH HISTORY: 59 year-old patient seen for screening. Patient states no personal history of breast cancer. The patient has a family history of breast cancer. Patient reports area of clinical concern on the right. COMPARISON STUDIES: The present examination has been compared to prior imaging studies dated 10/17/2018 (mammogram), 11/29/2019 (mammogram) and 11/30/2020 (mammogram). MAMMOGRAM TECHNIQUE: The study was acquired using full field digital technology and interpreted from soft copy. Digital Breast Tomosynthesis (DBT) images were obtained and used to assist in the interpretation of this examination. MAMMOGRAM FINDINGS: The breasts are almost entirely fatty. Tech Comment: Patient noticed focal swelling in the areolar area 9-10 o'clock right breast x 3-4 weeks ago. Skin marker applied. No appreciable interval mammographic change in either breast. IMPRESSION: Recommend the patient return for targeted sonographic evaluation of the patient reported focal swelling in the areolar region 9-10:00 position of the right breast BI-RADS Category 0: Incomplete: Needs Additional Imaging Evaluation RISK: Based on the Tyrer-Cuzick (TC) risk assessment model, this patient has a 4.4% lifetime risk of developing breast cancer, meaning they are at average risk for developing breast cancer. However, this is only an estimate based on available history provided on the patient's questionnaire. We encourage all patients to talk with their providers about these results, further recommendations for managing breast health, and appropriate supplemental screening options if the patient has dense breast tissue. Interpreting Radiologist: Allyson Roca M.D. Electronically signed on: 07/19/2024 Thermospray Operator: TANA Transcribe Date/Time: Jul 18 2024 12:31P Dictated by: ALLYSON ROCA MD This examination was interpreted and the report reviewed and electronically signed by: ALLYSON ROCA MD on Jul 19 2024 3:11PM EST [id number] Normal [facility] 07-11-2024 [facility] (PHAMTE) MORENA MARTINEZ ([id number]) 1965 F Date Time Provider Department 07/11/24 JAMEE HDZ During your visit today, we recorded the following information about you: Jamee Hdz, [facility] 07/11/2024 12:37 PM Signed [facility] Anticoagulation Clinic Anticoagulation Episode Summary Anticoagulation Care Providers Provider Role Specialty Phone number Milka Mas MD Family Medicine [phone] Morena Martinez is a 59 year old year old female patient being evaluated today for a Telemanagement visit. Patient is currently on the following anticoagulant(s) Warfarin. Labs PT INR (no units) Date Value 07/28/2022 2.7 (pt reported) 03/20/2022 2.7 01/23/2022 2.9 INR Home CoaguChek (no units) Date Value 07/11/2024 2.9 06/24/2024 2.8 06/03/2024 2.5 Hemoglobin (g/dL) Date Value 04/09/2021 15.2 Hematocrit (%) Date Value 04/09/2021 46.7 Platelet Count (k/uL) Date Value 04/09/2021 299 Creatinine (mg/dL) Date Value 07/10/2024 0.78 02/01/2024 0.76 11/09/2023 0.72 03/23/2021 0.60 12/07/2020 0.62 04/01/2020 0.70 Bilirubin, Total (mg/dL) Date Value 07/10/2024 0.6 12/07/2020 0.6 ALT (U/L) Date Value 07/10/2024 17 12/07/2020 33 AST (U/L) Date Value 07/10/2024 21 12/07/2020 35 CrCl cannot be calculated (Unknown ideal weight.). 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 Embolism and thrombosis (hcc) Anticoagulation Episode Summary Current INR goal: 2.0-3.0 Assessment: INR result of 2.9 is therapeutic Plan: Current Warfarin Dosing As of 07/11/2024 Full warfarin instructions: 5 mg every Fri; 7.5 mg all other days Sent NOBOT message Advised patient to continue current weekly dose as noted above Next home INR check scheduled on 07/25/2024 Patient advised to call the PAC with any medication changes, bleeding/bruising concerns, recent changes in vitamin k consumption, if any procedures are coming up, if they have been ill or in the hospital, and if they have missed any doses of warfarin. Jamee Hdz [facility] Clinical Pharmacist, Pharmacy Anticoagulation Clinic Pharmacy Anticoagulation Clinic Pager: [phone]. 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 - gabapentin (NEURONTIN) 300 mg capsule Take 1 capsule by mouth daily at bedtime for 180 days. - atenolol (TENORMIN) 50 mg tablet Taking 50 mg once daily - warfarin (COUMADIN) 5 mg tablet 7.5 mg daily - lisinopril (ZESTRIL) 10 mg tablet Take 1 tablet by mouth once daily. - furosemide (LASIX) 40 mg tablet Take 1 tablet by mouth once daily. - semaglutide (OZEMPIC) 1 mg/dose (4 mg/3 mL) pen Inject 1 mg subcutaneously one time a week. - nystatin (MYCOSTATIN) cream Apply to affected area twice daily. 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 Normal [facility] Comprehensive metabolic 2000 panelon 07-10-2024 Albumin [Mass/Vol] 4.2 g/dL Normal 3.9-4.9 [facility] Comment on above: Order Comment: Speci men Type: BLOOD SPECIMENOrdering Facility: [facility] Address: [address] [place] [address] Performed By: #### 2 4323-8, 13662-2 ####[facility] LABIA [id number] [place] [address] [place] ALP [Catalytic activity/Vol] 71 U/L Normal 34-123 [facility] Comment on above: Order Comment: Speci men Type: BLOOD SPECIMENOrdering Facility: [facility] Address: [address] [place] [address] Performed By: #### 2 4323-8, 80937-8 ####[facility] LABIA [id number] [place] [address] [place] ALT [Catalytic activity/Vol] 17 U/L Normal 7-38 [facility] Comment on above: Order Comment: Speci men Type: BLOOD SPECIMENOrdering Facility: [facility] Address: [address] [place] [address] Performed By: #### 2 4323-8, 65604-5 ####[facility] LABCLIA [id number] [facility] [address] [place] [address] [place] Anion gap [Moles/Vol] 13 mmol/L Normal 8-15 [facility] Comment on above: Order Comment: Speci men Type: BLOOD SPECIMENOrdering Facility: [facility] Address: [address] [place] [address] Performed By: #### 2 4323-8, 96223-2 ####[facility] LABCLIA [id number] [facility] [address], [facility] [place] AST [Catalytic activity/Vol] 21 U/L Normal 13-35 [facility] Comment on above: Order Comment: Speci men Type: BLOOD SPECIMENOrdering Facility: [facility] Address: [address] [place] [address] Performed By: #### 2 4323-8, 37137-2 ####[facility] LABCLIA [id number] [facility] [address] [place] [address] [place] Bilirubin [Mass/Vol] 0.6 mg/dL Normal 0.2-1.3 [facility] Comment on above: Order Comment: Speci men Type: BLOOD SPECIMENOrdering Facility: [facility] Address: [address] [place], [place] [address] Performed By: #### 2 4323-8, 84128-0 ####[facility] LABCLIA [id number] [facility] [address], [facility] [place] Calcium [Mass/Vol] 9.6 mg/dL Normal 8.5-10.2 [facility] Comment on above: Order Comment: Speci men Type: BLOOD SPECIMENOrdering Facility: [facility] Address: [address] [place], [place] [address] Performed By: #### 2 4323-8, 00741-0 ####[facility] LABCLIA [id number] [place] [id number] [place] Chloride [Moles/Vol] 102 mmol/L Normal 98-107 [facility] Comment on above: Order Comment: Speci men Type: BLOOD SPECIMENOrdering Facility: [facility] Address: [address] [place] [address] Performed By: #### 2 4323-8, 03400-0 ####[facility] LABIA [id number] [place] [id number] [place] CO2 [Moles/Vol] 26 mmol/L Normal 22-30 [facility] Comment on above: Order Comment: Speci men Type: BLOOD SPECIMENOrdering Facility: [facility] Address: [address] [place] [address] Performed By: #### 2 4323-8, 30414-1 ####[facility] [id number] [place] [id number] [place] Creatinine [Mass/Vol] 0.78 mg/dL Normal 0.58-0.96 [facility] Comment on above: Order Comment: Speci men Type: BLOOD SPECIMENOrdering Facility: [facility] Address: [address] [place] [address] Performed By: #### 2 4323-8, 02023-3 ####[facility] [id number] [address] Creatinine and Glomerular filtration rate.predicted panel (S/P/Bld) 87 mL/min/1.73m??? Normal >=60 [facility] Comment on above: Order Comment: Speci men Type: BLOOD SPECIMENOrdering Facility: [facility] Address: [address] [place] [address] Result Comment: Akua mated Glomerular Filtration Rate (eGFR) is calculated using the 2020 CKD-EPI creatinine equation. This equation utilizes serum creatinine, sex, and age as parameters. The creatinine assay has traceable calibration to isotope dilution-mass spectrometry. Refer to KDIGO guidelines for clinical interpretation. In patients with unstable renal function, e.g. those with acute kidney injury, the eGFR may not accurately reflect actual GFR. Performed By: #### 2 4323-8, 82283-3 ####[facility] LABIA [id number] [place] [id number] [place] Glucose [Mass/Vol] 142 mg/dL High 74-99 [facility] Comment on above: Order Comment: Mercy vázquez Type: BLOOD SPECIMENOrdering Facility: [facility] Address: [address] [place] [address] Result Comment: The [place] Diabetes Association (ADA) provides guidance for cutoff values for fasting glucose and random glucose. The ADA defines fasting as no caloric intake for at least 8 hours. Fasting plasma glucose results between 100 to 125 [...] Standards of Medical Care in Diabetes 2016, [place] [employer] Association. Diabetes Care. 2016.39(Suppl 1). Performed By: #### 2 4323-8, 95598-6 ####[facility] LABIA [id number] [place] [id number] [place] Potassium [Moles/Vol] 4.2 mmol/L Normal 3.7-5.1 [facility] Comment on above: Order Comment: Mercy vázquez Type: BLOOD SPECIMENOrdering Facility: [facility] Address: [address] [place] [address] Performed By: #### 2 4323-8, 16162-4 ####[facility] LABIA [id number] [place] [id number] [place] Protein [Mass/Vol] 7.2 g/dL Normal 6.3-8.0 [facility] Comment on above: Order Comment: Mercy vázquez Type: BLOOD SPECIMENOrdering Facility: [facility] Address: [address] [place] [address] Performed By: #### 2 4323-8, 72214-9 ####[facility] LABIA [id number] [place] [id number] [place] Sodium [Moles/Vol] 141 mmol/L Normal 136-144 [facility] Comment on above: Order Comment: Speci men Type: BLOOD SPECIMENOrdering Facility: [facility] Address: [address] [place] [address] Performed By: #### 2 4323-8, 35891-5 ####[facility] LABIA [id number] [place] [address] [place] Urea nitrogen [Mass/Vol] 21 mg/dL Normal 7-21 [facility] Comment on above: Order Comment: Speci men Type: BLOOD SPECIMENOrdering Facility: [facility] Address: [address] [place] [address] Performed By: #### 2 4323-8, 57595-2 ####[facility] [id number] [place] [address] [place] HbA1c (Bld)on 07-10-2024 Average glucose Estimated from glycated hemoglobin (Bld) [Mass/Vol] 128 mg/dL Normal [facility] Comment on above: Order Comment: Speci men Type: BLOOD SPECIMENOrdering Facility: [facility] Address: [address] [place] [address] Result Comment: eAG: (Estimated average glucose) is a calculated value from HgbA1c and is public service representative of the average blood glucose level in the last 2-3 month period. Performed By: #### 5 5454-3 ####[facility] [id number] [place] [address] [place] HbA1c (Bld) [Mass fraction] 6.1 % High 4.3-5.6 [facility] Comment on above: Order Comment: Speci men Type: BLOOD SPECIMENOrdering Facility: [facility] Address: [address] [place] [address] Result Comment: [place] Diabetes Association guidelines indicate that patients with HgbA1c in the range 5.7-6.4% are at increased risk for development of diabetes, and intervention by lifestyle modification may be beneficial. HgbA1c greater or equal to 6.5% is considered diagnostic of diabetes. Performed By: #### 5 5454-3 ####[facility] LABCLIA [id number] [place] [address] [place] Lipid 1996 panelon 5 Cholesterol [Mass/Vol] 191 mg/dL Normal <200 [facility] Comment on above: Order Comment: Speci men Type: BLOOD SPECIMENOrdering Facility: [facility] Address: [address] [place] [address] Result Comment: <200 mg/dL, Desirable 200-239 mg/dL, Borderline high >239 mg/dL, High Performed By: #### 2 4323-8, 40115-4 ####[facility] LABCLIA [id number] [place] [id number] [place] Cholesterol in HDL [Mass/Vol] 47 mg/dL Normal >39 [facility] [facility] Comment on above: Order Comment: Speci men Type: BLOOD SPECIMENOrdering Facility: [facility] Address: [address] [place] [address] Result Comment: 40-5 9 mg/dL, Acceptable >59 mg/dL, High: Negative risk factor for coronary heart disease <40 mg/dL, Low: Positive risk factor for coronary heart disease Performed By: #### 2 4323-8, 72409-2 ####[facility] LABCLIA [id number] [place] [id number] [place] Cholesterol in LDL [Mass/Vol] 116 mg/dL High <100 [facility] Comment on above: Order Comment: Speci men Type: BLOOD SPECIMENOrdering Facility: [facility] Address: [address] [place] [address] Result Comment: <100 mg/dL, Optimal 100-129 mg/dL, Near optimal/above optimal 130-159 mg/dL, Borderline high 160-189 mg/dL, High >189 mg/dL, Very high Secondary prevention optimal LDL Cholesterol levels are recommended to be < 70 mg/dL Performed By: #### 2 4323-8, 59972-4 ####[facility] LABCLIA [id number] [place] [address] [place] Cholesterol in LDL/Cholesterol in HDL [Mass ratio] 2.47 {ratio} Normal <2.54 [facility] Comment on above: Order Comment: Mercy men Type: BLOOD SPECIMENOrdering Facility: [facility] Address: [address] [place] [address] Result Comment: Refe rence: 1. National Cholesterol Education Program ATP III Guideline At-A-Glance Quick Desk Reference: National Heart, Lung, and Blood [place]. National Institutes of Health. 2001: NIH Publication No. 01-3305. 2. An International Atherosclerosis Society position paper: global recommendations for the management of dyslipidemia: executive summary, Atherosclerosis. 2014: 232(2):410-413. Performed By: #### 2 4323-8, 14646-9 ####[facility] LABIA [id number] [place] [address] [place] Cholesterol in VLDL [Mass/Vol] 28 mg/dL Normal <30 [facility] Comment on above: Order Comment: Mercy vázquez Type: BLOOD SPECIMENOrdering Facility: [facility] Address: [address] [place] [address] Performed By: #### 2 4323-8, 20237-6 ####[facility] LABIA [id number] [place] [id number] [place] Cholesterol non HDL [Mass/Vol] 144 mg/dL High <130 [facility] Comment on above: Order Comment: Mercy vázquez Type: BLOOD SPECIMENOrdering Facility: [facility] Address: [address] [place] [address] Result Comment: <130 mg/dL, Optimal 130-159 mg/dL, Near optimal/above optimal 160-189 mg/dL, Borderline high 190-219 mg/dL, High >219 mg/dL, Very high Secondary prevention optimal non HDL Cholesterol levels are recommended to be <100 mg/dL Performed By: #### 2 4323-8, 23488-9 ####[facility] LABCLIA [id number] [address] [place] [address] [place] Cholesterol.total /Cholesterol in HDL [Mass ratio] 4.06 {ratio} Normal <5.10 [facility] Comment on above: Order Comment: Speci men Type: BLOOD SPECIMENOrdering Facility: [facility] Address: [address] [place] [address] Performed By: #### 2 4323-8, 24798-5 ####[facility] LABCLIA [id number] [address] STATES OF [facility] FASTING TIME 12 hrs Normal [facility] Comment on above: Order Comment: Speci men Type: BLOOD SPECIMENOrdering Facility: [facility] Address: [address] [place] [address] Performed By: #### 2 4323-8, 64695-0 ####[facility] LABCLIA [id number] [address] [place] Triglyceride [Mass/Vol] 138 mg/dL Normal <150 [facility] Comment on above: Order Comment: Speci men Type: BLOOD SPECIMENOrdering Facility: [facility] Address: [address] [place] [address] Result Comment: <150 mg/dL, Normal 150-199 mg/dL, Borderline high 200-499 mg/dL, High >499 mg/dL, Very high Performed By: #### 2 4323-8, 52942-9 ####[facility] LABCLIA [id number] [address] [place] [address] [place] XR HIP 3V PELV+ AP/LAT RTon 07-10-2024 XR HIP 3V PELV+ AP/LAT RT * * *Final Report* * * DATE OF EXAM: Jul 10 2024 8:30AM WOX [id number] - XR HIP 3V PELV+ AP/LAT RT / PROCEDURE REASON: Pain of right hip * * * * Physician Interpretation * * * * EXAM(s): XR HIP 3V PELV+ AP/LAT RT..... HISTORY: 59 years old Clinical information: Pain of right hip pain for 1.5 years in right groin no inj TECHNIQUE: Images: XR HIP 3V PELV+ AP/LAT RT Comparison: None. RESULT: Findings: The hip joints are mildly narrowed. The SI joints appear unremarkable. Bony pelvis is intact. No fracture or dislocation. No osteolytic or osteosclerotic bone lesion. Massive clips noted.. 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 [facility] [address] Chart Copy of medications dispensed to patient for home use June 27, 2024 Physician Initial: ME Morena Martinez Medication: Ozempic 1 mg Qty: 4 boxes Directions: inject 1 mg once a week Medications administered, dispensed and verified on the date indicated above Patient has been notified to product picker medication in Dr. Mas office. SONNY Eagle Jacqueline, LPN 07/01/2024 9:09 AM Signed Patient picked up Oxempic 4 boxes Allergies As of Date: 06/27/2024 Noted Allergy Reaction LEVAQUIN (LEVOFLOXACIN) 07/19/2022 14 - Other: See Comments Comments: Notes body aches and joint pain when on medication AUGMENTIN (AMOXICILLIN-POT CLAVUL*12/31/2004 14 - Other: See [...] - Swelling Comments: ankle swelling Date Reviewed: 02/15/2024 Reviewed by: Catrachito Serna MA - Fully Assessed Reason for Visit: pt assistance meds [Other] Cmt: Ozempic Prescriptions as of 07/01/2024 - tiZANidine (ZANAFLEX) 4 mg tablet Take 1 tablet by mouth every 6 hours as needed. - acetaminophen-codeine (TYLENOL-CODEINE #3) 300-30 mg per tablet Take 1 tablet by mouth two times a day as needed for pain for up to 90 days. - gabapentin (NEURONTIN) 300 mg capsule Take 1 capsule by mouth daily at bedtime for 180 days. - atenolol (TENORMIN) 50 mg tablet Taking 50 mg once daily - warfarin (COUMADIN) 5 mg tablet 7.5 mg daily - lisinopril (ZESTRIL) 10 mg tablet Take 1 tablet by mouth once daily. - furosemide (LASIX) 40 mg tablet Take 1 tablet by mouth once daily. - semaglutide (OZEMPIC) 1 mg/dose (4 mg/3 mL) pen Inject 1 mg subcutaneously one time a week. - nystatin (MYCOSTATIN) cream Apply to affected area twice daily. 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] 08/22/2007 Restless Legs Syndrome (RLS) [G25.81] 10/22/2007 Obstructive sleep apnea (adult) (pediatric) [G4*10/22/2007 08/31/2021 Essential Hypertension, Benign [I10] 11/19/2007 Other abnormal glucose [R73.09] 11/19/2007 07/09/2021 Dysmetabolic syndrome X [E88.810] 11/19/2007 07/09/2021 Palpitations [R00.2] 01/29/2009 03/09/2012 Routine Gynecological Examination [Z01.419] 02/11/2009 Class: Chronic Class 3 severe obesity due to excess calories w*02/11/2009 Abdominal pain, left lower quadrant [R10.32] 09/02/2009 03/09/2012 Diarrhea [R19.7] 09/02/2009 07/09/2021 Knee pain [M25.569] 04/27/2010 Status post total right knee replacement [Z96.6*07/25/2011 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] 10/13/2011 07/09/2021 Perirectal abscess [K61.1] 09/23/2015 07/09/2021 Infrapatellar bursitis of right knee [M70.51] 08/11/2016 07/09/2021 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] 08/11/2016 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] 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 [Z79.*03/18/2019 Chronic midline low back pain without sciatica *07/02/2019 Type 2 diabetes mellitus without complication, *12/30/2020 Leg swelling [M79.89] 08/06/2021 Former smoker [Z87.891] 08/06/2021 Bursitis of left shoulder [M75.52] 08/06/2021 08/31/2021 Tendinitis of left shoulder [M77.8] 08/31/2021 08/31/2021 Post-operative pain [G89.18] 09/16/2021 Acute pain of left shoulder [M25.512] 09/16/2021 Bursitis of left shoulder [M75.52] 09/16/2021 Tendinitis of left shoulder [M77.8] 09/16/2021 Inflammatory polyarthropathy (HCC) [M06.4] 12/12/2022 S/P shoulder surgery [Z98.890] 12/30/2022 COVID-19 [U07.1] 04/18/2023 Encounter Status:Closed by PINKY DAWKINS on 06/27/24 [facility] CNPEmilee 06-24-2024 CNPN Telephone (PHAMTE) MORENA MARTINEZ ([id number]) 1965 F Date Time Provider Department 06/24/24 MANAS RICHTER During your visit today, we recorded the following information about you: Manas Richter RPh 06/24/2024 10:27 AM Signed [facility] Anticoagulation Episode Summary Anticoagulation Care Providers Provider Role Specialty Phone number Milka Mas MD Family Medicine [phone] Morena Martinez is a 59 year old year old female patient being evaluated today for a Telemanagement visit. Patient is currently on the following anticoagulant(s) Warfarin. Labs PT INR (no units) Date Value 07/28/2022 2.7 (pt reported) 03/20/2022 2.7 01/23/2022 2.9 INR Home CoaguChek (no units) Date Value 06/24/2024 2.8 06/03/2024 2.5 05/22/2024 2.8 Hemoglobin (g/dL) Date Value 04/09/2021 15.2 Hematocrit (%) Date Value 04/09/2021 46.7 Platelet Count (k/uL) Date Value 04/09/2021 299 Creatinine (mg/dL) Date Value 02/01/2024 0.76 11/09/2023 0.72 08/09/2023 0.73 03/23/2021 0.60 12/07/2020 0.62 04/01/2020 0.70 Bilirubin, Total (mg/dL) Date Value 02/01/2024 0.7 12/07/2020 0.6 ALT (U/L) Date Value 02/01/2024 16 12/07/2020 33 AST (U/L) Date Value 02/01/2024 17 12/07/2020 35 CrCl cannot be calculated (Unknown ideal weight.). 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: Anticoagulation Episode Summary Current INR goal: 2.0-3.0 Assessment: INR result of 2.8 is therapeutic Plan: Current Warfarin Dosing As of 06/24/2024 Full warfarin instructions: 5 mg every Fri; 7.5 mg all other days Sent NOBOT message Advised patient to continue current weekly dose as noted above Next INR check due on 07/08/2024 Manas Richter [facility] Clinical Pharmacist, Pharmacy Anticoagulation Clinic Pharmacy Anticoagulation Clinic Pager: [phone]. Manas Richter RPh 07/08/2024 4:05 PM Signed Patient was due to test INR today. Will continue to monitor for results. Follow up in one week if no results received. Patient's INR Goal range is - 2.0-3.0 PT INR (no units) Date Value 07/28/2022 2.7 (pt reported) 03/20/2022 2.7 01/23/2022 2.9 INR Home CoaguChek (no units) Date Value 06/24/2024 2.8 06/03/2024 2.5 05/22/2024 2.8 Patient is in titration phase - No Patient has dosing provided until next INR - Yes Patient is on an injectable anticoagulant - No Allergies As of Date: 06/24/2024 Noted Allergy Reaction LEVAQUIN (LEVOFLOXACIN) 07/19/2022 14 - Other: See Comments Comments: Notes body aches and joint pain when on medication AUGMENTIN (AMOXICILLIN-POT CLAVUL*12/31/2004 14 - Other: See [...] - Swelling Comments: ankle swelling Date Reviewed: 02/15/2024 Reviewed by: Catrachito Serna MA - Fully Assessed Reason for Visit: Anticoagulation Telephone Fu [148] Cmt: Home INR Result Prescriptions as of 07/08/2024 - tiZANidine (ZANAFLEX) 4 mg tablet Take 1 tablet by mouth every 6 hours as needed. - acetaminophen-codeine (TYLENOL-CODEINE #3) 300-30 mg per tablet Take 1 tablet by mouth two times a day as needed for pain for up to 90 days. - gabapentin (NEURONTIN) 300 mg capsule Take 1 capsule by mouth daily at bedtime for 180 days. - atenolol (TENORMIN) 50 mg tablet Taking 50 mg once daily - warfarin (COUMADIN) 5 mg tablet 7.5 mg daily - lisinopril (ZESTRIL) 10 mg tablet Take 1 tablet by mouth once daily. - furosemide (LASIX) 40 mg tablet Take 1 tablet by mouth once daily. - semaglutide (OZEMPIC) 1 mg/dose (4 mg/3 mL) pen Inject 1 mg subcutaneously one time a week. - nystatin (MYCOSTATIN) cream Apply to affected area twice daily. Problem List As Of Date 06/24/2024 Noted Resolved Allergic Rhinitis, Cause Unspecified [J30.9] 12/31/2004 Diverticulosis of Colon (without Mention of Hem* Irritable Bowel Syndrome [K58.9] Migraine NOS/Intractable [G43.919] Other Disorders of Bladder [596] Diffuse Cystic Mastopathy [N60.19] Loc Osteoarth NOS (more content not included)... Normal [facility] CNPNon 06-03-2024 CNPN Telephone (PHARMN) MORENA MARTINEZ ([id number]) 1965 F Date Time Provider Department 06/03/24 SHYLA MAGDALENO PHARMN During your visit today, we recorded the following information about you: Shyla Magdaleno RPh 06/03/2024 9:25 AM Signed [facility] Anticoagulation Clinic Anticoagulation Episode Summary Anticoagulation Care Providers Provider Role Specialty Phone number Milka Mas MD Family Medicine [phone] Morena Martinez is a 59 year old year old female patient being evaluated today for a Telemanagement visit. Patient is currently on the following anticoagulant(s) Warfarin. Labs PT INR (no units) Date Value 07/28/2022 2.7 (pt reported) 03/20/2022 2.7 01/23/2022 2.9 INR Home CoaguChek (no units) Date Value 06/03/2024 2.5 05/22/2024 2.8 05/06/2024 2.6 Hemoglobin (g/dL) Date Value 04/09/2021 15.2 Hematocrit (%) Date Value 04/09/2021 46.7 Platelet Count (k/uL) Date Value 04/09/2021 299 Creatinine (mg/dL) Date Value 02/01/2024 0.76 11/09/2023 0.72 08/09/2023 0.73 03/23/2021 0.60 12/07/2020 0.62 04/01/2020 0.70 Bilirubin, Total (mg/dL) Date Value 02/01/2024 0.7 12/07/2020 0.6 ALT (U/L) Date Value 02/01/2024 16 12/07/2020 33 AST (U/L) Date Value 02/01/2024 17 12/07/2020 35 CrCl cannot be calculated (Unknown ideal weight.). 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 Embolism and thrombosis (hcc) Anticoagulation Episode Summary Current INR goal: 2.0-3.0 Assessment: INR result of 2.5 is therapeutic Plan: Current Warfarin Dosing As of 06/03/2024 Full warfarin instructions: 5 mg every Fri; 7.5 mg all other days Sent NOBOT message Advised patient to continue current weekly dose as noted above Next home INR check scheduled on 06/17/2024 Patient advised to call the PAC with any medication changes, bleeding/bruising concerns, recent changes in vitamin k consumption, if any procedures are coming up, if they have been ill or in the hospital, and if they have missed any doses of warfarin. Shyla Magdaleno [facility] Clinical Pharmacist, Pharmacy Anticoagulation Clinic Pharmacy Anticoagulation Clinic Pager: [phone]. Manas Richter RPh 06/17/2024 3:38 PM Signed Patient was due to test INR today. Will continue to monitor for results. Follow up in one week if no results received. Patient's INR Goal range is - 2.0-3.0 PT INR (no units) Date Value 07/28/2022 2.7 (pt reported) 03/20/2022 2.7 01/23/2022 2.9 INR Home CoaguChek (no units) Date Value 06/03/2024 2.5 05/22/2024 2.8 05/06/2024 2.6 Patient is in titration phase - No Patient has dosing provided until next INR - Yes Patient is on an injectable anticoagulant - No Allergies As of Date: 06/03/2024 Noted Allergy Reaction LEVAQUIN (LEVOFLOXACIN) 07/19/2022 14 - Other: See Comments Comments: Notes body aches and joint pain when on medication AUGMENTIN (AMOXICILLIN-POT CLAVUL*12/31/2004 14 - Other: See [...] - Swelling Comments: ankle swelling Date Reviewed: 02/15/2024 Reviewed by: Catrachito Serna MA - Fully Assessed Reason for Visit: Anticoagulation [8] Primary Visit 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 - acetaminophen-codeine (TYLENOL-CODEINE #3) 300-30 mg per tablet Take 1 tablet by mouth two times a day as needed for pain for up to 90 days. - gabapentin (NEURONTIN) 300 mg capsule Take 1 capsule by mouth daily at bedtime for 180 days. - atenolol (TENORMIN) 50 mg tablet Taking 50 mg once daily - warfarin (COUMADIN) 5 mg tablet 7.5 mg daily - lisinopril (ZESTRIL) 10 mg tablet Take 1 tablet by mouth once daily. - furosemide (LASIX) 40 mg tablet Take 1 tablet by mouth once daily. - semaglutide (OZEMPIC) 1 mg/dose (4 mg/ (more content not included)... Normal [facility] CNPNon 05-22-2024 CNPN Telephone (PHAMTE) MORENA MARTINEZ ([id number]) 1965 F Date Time Provider Department 05/22/24 DORI PEPPER During your visit today, we recorded the following information about you: Dori Pepper RPh 05/22/2024 4:23 PM Signed [facility] Pharm[facility] Anticoagulation Clinic Anticoagulation Episode Summary Anticoagulation Care Providers Provider Role Specialty Phone number Milka Mas MD Family Medicine [phone] Morena Soheila Martinez is a 59 year old year old female patient being evaluated today for a Telemanagement visit. Patient is currently on the following anticoagulant(s) Warfarin. Labs PT INR (no units) Date Value 07/28/2022 2.7 (pt reported) 03/20/2022 2.7 01/23/2022 2.9 INR Home CoaguChek (no units) Date Value 05/22/2024 2.8 05/06/2024 2.6 04/11/2024 2.6 Hemoglobin (g/dL) Date Value 04/09/2021 15.2 Hematocrit (%) Date Value 04/09/2021 46.7 Platelet Count (k/uL) Date Value 04/09/2021 299 Creatinine (mg/dL) Date Value 02/01/2024 0.76 11/09/2023 0.72 08/09/2023 0.73 03/23/2021 0.60 12/07/2020 0.62 04/01/2020 0.70 Bilirubin, Total (mg/dL) Date Value 02/01/2024 0.7 12/07/2020 0.6 ALT (U/L) Date Value 02/01/2024 16 12/07/2020 33 AST (U/L) Date Value 02/01/2024 17 12/07/2020 35 CrCl cannot be calculated (Unknown ideal weight.). 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 Embolism and thrombosis (hcc) Anticoagulation Episode Summary Current INR goal: 2.0-3.0 Assessment: INR result of 2.8 is therapeutic Plan: Current Warfarin Dosing As of 05/22/2024 Full warfarin instructions: 5 mg every Fri; 7.5 mg all other days Sent NOBOT message Advised patient to continue current weekly dose as noted above Next home INR check scheduled on 06/05/2024 Patient advised to call the PAC with any medication changes, bleeding/bruising concerns, recent changes in vitamin k consumption, if any procedures are coming up, if they have been ill or in the hospital, and if they have missed any doses of warfarin. Dori Pepper [facility] Clinical Pharmacist, Pharmacy Anticoagulation Clinic Pharmacy Anticoagulation Clinic Pager: [phone]. 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 - gabapentin (NEURONTIN) 300 mg capsule Take 1 capsule by mouth daily at bedtime for 180 days. - atenolol (TENORMIN) 50 mg tablet Taking 50 mg once daily - warfarin (COUMADIN) 5 mg tablet 7.5 mg daily - lisinopril (ZESTRIL) 10 mg tablet Take 1 tablet by mouth once daily. - furosemide (LASIX) 40 mg tablet Take 1 tablet by mouth once daily. - semaglutide (OZEMPIC) 1 mg/dose (4 mg/3 mL) pen Inject 1 mg subcutaneously one time a week. - nystatin (MYCOSTATIN) cream Apply to affected area twice daily. 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 Normal [facility] Carlos 05-06-2024 JENARO Telephone ([facility]) YONGCHRISTIANMORENA KWAN ([id number]) 1965 F Date Time Provider Department 05/06/24 MANAS RICHTER During your visit today, we recorded the following information about you: Manas Richter [facility] 05/06/2024 9:18 AM Signed [facility] Pharm[facility] Anticoagulation Clinic Anticoagulation Episode Summary Anticoagulation Care Providers Provider Role Specialty Phone number Milka Mas MD Family Medicine [phone] Morena Martinez is a 59 year old year old female patient being evaluated today for a Telemanagement visit. Patient is currently on the following anticoagulant(s) Warfarin. Labs PT INR (no units) Date Value 07/28/2022 2.7 (pt reported) 03/20/2022 2.7 01/23/2022 2.9 INR Home CoaguChek (no units) Date Value 05/06/2024 2.6 04/11/2024 2.6 03/26/2024 2.2 Hemoglobin (g/dL) Date Value 04/09/2021 15.2 Hematocrit (%) Date Value 04/09/2021 46.7 Platelet Count (k/uL) Date Value 04/09/2021 299 Creatinine (mg/dL) Date Value 02/01/2024 0.76 11/09/2023 0.72 08/09/2023 0.73 03/23/2021 0.60 12/07/2020 0.62 04/01/2020 0.70 Bilirubin, Total (mg/dL) Date Value 02/01/2024 0.7 12/07/2020 0.6 ALT (U/L) Date Value 02/01/2024 16 12/07/2020 33 AST (U/L) Date Value 02/01/2024 17 12/07/2020 35 CrCl cannot be calculated (Unknown ideal weight.). 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: Anticoagulation Episode Summary Current INR goal: 2.0-3.0 Assessment: INR result of 2.6 is therapeutic Plan: Current Warfarin Dosing As of 05/06/2024 Full warfarin instructions: 5 mg every Fri; 7.5 mg all other days Sent NOBOT message Advised patient to continue current weekly dose as noted above Next INR check due on 05/20/2024 Manas Richter [facility] Clinical Pharmacist, Pharmacy Anticoagulation Clinic Pharmacy Anticoagulation Clinic Pager: [phone]. Manas Richter [facility] 05/20/2024 2:55 PM Signed Patient was due to test INR today. Will continue to monitor for results. Will follow up in one week if no results received. Allergies As of Date: 05/06/2024 Noted Allergy Reaction LEVAQUIN (LEVOFLOXACIN) 07/19/2022 14 - Other: See Comments Comments: Notes body aches and joint pain when on medication AUGMENTIN (AMOXICILLIN-POT CLAVUL*12/31/2004 14 - Other: See [...] - Swelling Comments: ankle swelling Date Reviewed: 02/15/2024 Reviewed by: Catrachito Serna MA - Fully Assessed Reason for Visit: Anticoagulation Telephone Fu [148] Cmt: Home INR Result Prescriptions as of 05/20/2024 - acetaminophen-codeine (TYLENOL-CODEINE #3) 300-30 mg per tablet Take 1 tablet by mouth two times a day as needed for pain for up to 90 days. - gabapentin (NEURONTIN) 300 mg capsule Take 1 capsule by mouth daily at bedtime for 180 days. - atenolol (TENORMIN) 50 mg tablet Taking 50 mg once daily - warfarin (COUMADIN) 5 mg tablet 7.5 mg daily - lisinopril (ZESTRIL) 10 mg tablet Take 1 tablet by mouth once daily. - furosemide (LASIX) 40 mg tablet Take 1 tablet by mouth once daily. - semaglutide (OZEMPIC) 1 mg/dose (4 mg/3 mL) pen Inject 1 mg subcutaneously one time a week. - nystatin (MYCOSTATIN) cream Apply to affected area twice daily. 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 Normal [facility] 04-23-2024 [facility] Telephone (FAMWS) MORENA MARTINEZ ([id number]) 1965 F Date Time Provider Department 04/23/24 MILKA AMS [facility] During your visit today, we recorded the following information about you: Pinky Dawkins MA 04/23/2024 8:50 AM Signed Pt would like xray of her right hip. And needs labs re ordered for June. She moved her appt out another 2 months since she has not been on the Ozempic for some time due to pt assistance company not sending it out. Please advise. SONNY Eagle Mark D, MD 04/23/2024 11:42 AM Signed Hip XR ordered The labs from May should still be good for June MD Juancho Garcia Kathryn, MA 04/23/2024 11:45 AM Signed Pt notified via NOBOT. Pinky Dawkins MA Allergies As of Date: 04/23/2024 Noted Allergy Reaction LEVAQUIN (LEVOFLOXACIN) 07/19/2022 14 - Other: See Comments Comments: Notes body aches and joint pain when on medication AUGMENTIN (AMOXICILLIN-POT CLAVUL*12/31/2004 14 - Other: See [...] - Swelling Comments: ankle swelling Date Reviewed: 02/15/2024 Reviewed by: Catrachito Serna MA - Fully Assessed Reason for Visit: Orders [681] Primary Visit Diagnosis:Pain of right hip [M25.551] Order(s):XR HIP GENERAL 3V PELV/AP/LAT RIGHT [[id number]] Order #: [id number] FUTURE Prescriptions as of 04/23/2024 - acetaminophen-codeine (TYLENOL-CODEINE #3) 300-30 mg per tablet Take 1 tablet by mouth two times a day as needed for pain for up to 90 days. - gabapentin (NEURONTIN) 300 mg capsule Take 1 capsule by mouth daily at bedtime for 180 days. - atenolol (TENORMIN) 50 mg tablet Taking 50 mg once daily - warfarin (COUMADIN) 5 mg tablet 7.5 mg daily - lisinopril (ZESTRIL) 10 mg tablet Take 1 tablet by mouth once daily. - tiZANidine (ZANAFLEX) 4 mg tablet Take 1 tablet by mouth every 6 hours as needed. - furosemide (LASIX) 40 mg tablet Take 1 tablet by mouth once daily. - semaglutide (OZEMPIC) 1 mg/dose (4 mg/3 mL) pen Inject 1 mg subcutaneously one time a week. - nystatin (MYCOSTATIN) cream Apply to affected area twice daily. 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] 08/22/2007 Restless Legs Syndrome (RLS) [G25.81] 10/22/2007 Obstructive sleep apnea (adult) (pediatric) [G4*10/22/2007 08/31/2021 Essential Hypertension, Benign [I10] 11/19/2007 Other abnormal glucose [R73.09] 11/19/2007 07/09/2021 Dysmetabolic syndrome X [E88.810] 11/19/2007 07/09/2021 Palpitations [R00.2] 01/29/2009 03/09/2012 Routine Gynecological Examination [Z01.419] 02/11/2009 Class: Chronic Class 3 severe obesity due to excess calories w*02/11/2009 Abdominal pain, left lower quadrant [R10.32] 09/02/2009 03/09/2012 Diarrhea [R19.7] 09/02/2009 07/09/2021 Knee pain [M25.569] 04/27/2010 Status post total right knee replacement [Z96.6*07/25/2011 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] 10/13/2011 07/09/2021 Perirectal abscess [K61.1] 09/23/2015 07/09/2021 Infrapatellar bursitis of right knee [M70.51] 08/11/2016 07/09/2021 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] 08/11/2016 Hx of [place] [facility] use of blood thinners [Z92.29] 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 [Z79.*03/18/2019 Chronic midline low back pain without sciatica *07/02/2019 Type 2 diabetes mellitus without complication, *12/30/2020 Leg swelling [M79.89] 08/06/2021 Former smoker [Z87.891] 08/06/2021 Bursitis of left shoulder [M75.52] 08/06/2021 08/31/2021 Tendinitis of left shoulder [M77.8] 08/31/2021 08/31/2021 Post-operative pain [G89.18] 09/16/2021 Acute pain of left shoulder [M25.512] 09/16/2021 Bursitis of left shoulder [M75.52] 09/16/2021 Tendinitis of left shoulder [M77.8] 09/16/2021 Inflammatory polyarthropathy (HCC) [M06.4] 12/12/2022 S/P shoulder surgery [Z98.890] 12/30/2022 COVID-19 [U07.1] 04/18/2023 Encounter Status:Closed by [facility] ([id number]) 1965 F Date Time Provider Department 04/23/24 [facility] During your visit today, we recorded the following information about you: Pinky Dawkins MA 04/23/2024 8:44 AM Signed Pt dropped off paperwork from [email or web address] that they sent her that needs completed and sent in before 04/30/24. Pt states that company told her this paperwork should be good for the entire year of 2024. Forms on PCP's desk. SONNY Eagle Mark D, MD 04/25/2024 4:38 PM Signed Form done MD Juancho Garcia Kathryn, MA 04/25/2024 4:42 PM Signed Pt notified that their is a page she needs to sign. She will come in tomorrow and sign form. Forms at medical records. Will have medical records send back to PCP's office so we can fax them. SONNY Eagle Rilee, MA 04/26/2024 10:35 AM Signed Forms signed by patient and completed. These have been faxed to [email or web address] at [phone]. Catrachito Serna MA Allergies As of Date: 04/23/2024 Noted Allergy Reaction LEVAQUIN (LEVOFLOXACIN) 07/19/2022 14 - Other: See Comments Comments: Notes body aches and joint pain when on medication AUGMENTIN (AMOXICILLIN-POT CLAVUL*12/31/2004 14 - Other: See [...] - Swelling Comments: ankle swelling Date Reviewed: 02/15/2024 Reviewed by: Catrachito Serna MA - Fully Assessed Reason for Visit: pt assistance forms [Other] Cmt: Reji Nordisk Prescriptions as of 04/26/2024 - acetaminophen-codeine (TYLENOL-CODEINE #3) 300-30 mg per tablet Take 1 tablet by mouth two times a day as needed for pain for up to 90 days. - gabapentin (NEURONTIN) 300 mg capsule Take 1 capsule by mouth daily at bedtime for 180 days. - atenolol (TENORMIN) 50 mg tablet Taking 50 mg once daily - warfarin (COUMADIN) 5 mg tablet 7.5 mg daily - lisinopril (ZESTRIL) 10 mg tablet Take 1 tablet by mouth once daily. - tiZANidine (ZANAFLEX) 4 mg tablet Take 1 tablet by mouth every 6 hours as needed. - furosemide (LASIX) 40 mg tablet Take 1 tablet by mouth once daily. - semaglutide (OZEMPIC) 1 mg/dose (4 mg/3 mL) pen Inject 1 mg subcutaneously one time a week. - nystatin (MYCOSTATIN) cream Apply to affected area twice daily. 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] 08/22/2007 Restless Legs Syndrome (RLS) [G25.81] 10/22/2007 Obstructive sleep apnea (adult) (pediatric) [G4*10/22/2007 08/31/2021 Essential Hypertension, Benign [I10] 11/19/2007 Other abnormal glucose [R73.09] 11/19/2007 07/09/2021 Dysmetabolic syndrome X [E88.810] 11/19/2007 07/09/2021 Palpitations [R00.2] 01/29/2009 03/09/2012 Routine Gynecological Examination [Z01.419] 02/11/2009 Class: Chronic Class 3 severe obesity due to excess calories w*02/11/2009 Abdominal pain, left lower quadrant [R10.32] 09/02/2009 03/09/2012 Diarrhea [R19.7] 09/02/2009 07/09/2021 Knee pain [M25.569] 04/27/2010 Status post total right knee replacement [Z96.6*07/25/2011 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] 10/13/2011 07/09/2021 Perirectal abscess [K61.1] 09/23/2015 07/09/2021 Infrapatellar bursitis of right knee [M70.51] 08/11/2016 07/09/2021 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] 08/11/2016 [place]x of [place] [facility] [place] use of blood thinners [Z92.29] 08/11/2016 [facility]PC (current) use of anticoagulants [Z79.*03/18/2019 Chronic midline low back pain without sciatica *07/02/2019 Type 2 diabetes mellitus without complication, *12/30/2020 Leg swelling [M79.89] 08/06/2021 Former smoker [Z87.891] 08/06/2021 Bursitis of left shoulder [M75.52] 08/06/2021 08/31/2021 Tendinitis of left shoulder [M77.8] 08/31/2021 08/31/2021 Post-operative pain [G89.18] 09/16/2021 Acute pain of left shoulder [M25.512] 09/16/2021 Bursitis of left shoulder [M75.52] 09/16/2021 Tendinitis of left shoulder [M77.8] 09/16/2021 Inflammatory polyarthropathy (HCC) [M06.4] 12/12/2022 S/P shoulder surgery [Z98.890] 12/30/2022 COVID-19 [U07.1] 04/18/2023 Encounter Status:Closed by CATRACHITO SERNA on 04/26/24 [facility] 04[facility]20[facility] MORENA MARTINE[facility] ([id number]) 1965 F Date Time Provider Department 04/19/24 MILKA MAS During your visit today, we recorded the following information about you: Enedelia Madrid LPN 04/19/2024 11:32 AM Signed TC to pt. LM to update Pt her Ozempic came in. Enedelia Madrid LPN Ruel Dianelys, LPN 04/19/2024 1:41 PM Signed Patient Assistance Medication of Ozempic (2 boxes) picked up by patient. Allergies As of Date: 04/19/2024 Noted Allergy Reaction LEVAQUIN (LEVOFLOXACIN) 07/19/2022 14 - Other: See Comments Comments: Notes body aches and joint pain when on medication AUGMENTIN (AMOXICILLIN-POT CLAVUL*12/31/2004 14 - Other: See [...] - Swelling Comments: ankle swelling Date Reviewed: 02/15/2024 Reviewed by: Catrachito Serna MA - Fully Assessed Prescriptions as of 04/19/2024 - acetaminophen-codeine (TYLENOL-CODEINE #3) 300-30 mg per tablet Take 1 tablet by mouth two times a day as needed for pain for up to 90 days. - gabapentin (NEURONTIN) 300 mg capsule Take 1 capsule by mouth daily at bedtime for 180 days. - atenolol (TENORMIN) 50 mg tablet Taking 50 mg once daily - warfarin (COUMADIN) 5 mg tablet 7.5 mg daily - lisinopril (ZESTRIL) 10 mg tablet Take 1 tablet by mouth once daily. - tiZANidine (ZANAFLEX) 4 mg tablet Take 1 tablet by mouth every 6 hours as needed. - furosemide (LASIX) 40 mg tablet Take 1 tablet by mouth once daily. - semaglutide (OZEMPIC) 1 mg/dose (4 mg/3 mL) pen Inject 1 mg subcutaneously one time a week. - nystatin (MYCOSTATIN) cream Apply to affected area twice daily. 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] 08/22/2007 Restless Legs Syndrome (RLS) [G25.81] 10/22/2007 Obstructive sleep apnea (adult) (pediatric) [G4*10/22/2007 08/31/2021 Essential Hypertension, Benign [I10] 11/19/2007 Other abnormal glucose [R73.09] 11/19/2007 07/09/2021 Dysmetabolic syndrome X [E88.810] 11/19/2007 07/09/2021 Palpitations [R00.2] 01/29/2009 03/09/2012 Routine Gynecological Examination [Z01.419] 02/11/2009 Class: Chronic Class 3 severe obesity due to excess calories w*02/11/2009 Abdominal pain, left lower quadrant [R10.32] 09/02/2009 03/09/2012 Diarrhea [R19.7] 09/02/2009 07/09/2021 Knee pain [M25.569] 04/27/2010 Status post total right knee replacement [Z96.6*07/25/2011 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] 10/13/2011 07/09/2021 Perirectal abscess [K61.1] 09/23/2015 07/09/2021 Infrapatellar bursitis of right knee [M70.51] 08/11/2016 07/09/2021 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] 08/11/2016 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] 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 [Z79.*03/18/2019 Chronic midline low back pain without sciatica *07/02/2019 Type 2 diabetes mellitus without complication, *12/30/2020 Leg swelling [M79.89] 08/06/2021 Former smoker [Z87.891] 08/06/2021 Bursitis of left shoulder [M75.52] 08/06/2021 08/31/2021 Tendinitis of left shoulder [M77.8] 08/31/2021 08/31/2021 Post-operative pain [G89.18] 09/16/2021 Acute pain of left shoulder [M25.512] 09/16/2021 Bursitis of left shoulder [M75.52] 09/16/2021 Tendinitis of left shoulder [M77.8] 09/16/2021 Inflammatory polyarthropathy (HCC) [M06.4] 12/12/2022 S/P shoulder surgery [Z98.890] 12/30/2022 COVID-19 [U07.1] 04/18/2023 Encounter Status:Closed by DIANELYS SALAZAR on 04/19/24 [facility] 04-11-2024 CNPN Telephone (PHAMTE) MORENA MARTINEZ ([id number]) 1965 F Date Time Provider Department 04/11/24 JAMEE HDZ PHAMARIA ISABEL During your visit today, we recorded the following information about you: Jamee Hdz, [facility] 04/11/2024 12:19 PM Signed [facility] Ambulatory Pharmacy Anticoagulation Clinic Anticoagulation Episode Summary Anticoagulation Care Providers Provider Role Specialty Phone number Milka Mas MD Family Medicine [phone] Morena Martinez is a 59 year old year old female patient being evaluated today for a Telemanagement visit. Patient is currently on the following anticoagulant(s) Warfarin. Labs PT INR (no units) Date Value 07/28/2022 2.7 (pt reported) 03/20/2022 2.7 01/23/2022 2.9 INR Home CoaguChek (no units) Date Value 04/11/2024 2.6 03/26/2024 2.2 03/05/2024 2.7 Hemoglobin (g/dL) Date Value 04/09/2021 15.2 Hematocrit (%) Date Value 04/09/2021 46.7 Platelet Count (k/uL) Date Value 04/09/2021 299 Creatinine (mg/dL) Date Value 02/01/2024 0.76 11/09/2023 0.72 08/09/2023 0.73 03/23/2021 0.60 12/07/2020 0.62 04/01/2020 0.70 Bilirubin, Total (mg/dL) Date Value 02/01/2024 0.7 12/07/2020 0.6 ALT (U/L) Date Value 02/01/2024 16 12/07/2020 33 AST (U/L) Date Value 02/01/2024 17 12/07/2020 35 CrCl cannot be calculated (Unknown ideal weight.). 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 Embolism and thrombosis (hcc) Anticoagulation Episode Summary Current INR goal: 2.0-3.0 Assessment: INR result of 2.6 is therapeutic Plan: Current Warfarin Dosing As of 04/11/2024 Full warfarin instructions: 5 mg every Fri; 7.5 mg all other days Sent NOBOT message Advised patient to continue current weekly dose as noted above Next home INR check scheduled on 04/25/2024 Patient advised to call the PAC with any medication changes, bleeding/bruising concerns, recent changes in vitamin k consumption, if any procedures are coming up, if they have been ill or in the hospital, and if they have missed any doses of warfarin. Jamee Hdz [facility] Clinical Pharmacist, Pharmacy Anticoagulation Clinic Pharmacy Anticoagulation Clinic Pager: [phone]. Sharon Carrillo [facility] 04/25/2024 12:41 PM Signed Patient was due to test INR today. Will continue to monitor for results. Follow up in one week if no results received. Patient's INR Goal range is - 2.0-3.0 PT INR (no units) Date Value 07/28/2022 2.7 (pt reported) 03/20/2022 2.7 01/23/2022 2.9 INR Home CoaguChek (no units) Date Value 04/11/2024 2.6 03/26/2024 2.2 03/05/2024 2.7 Patient is in titration phase - No Patient has dosing provided until next INR - Yes Patient is on an injectable anticoagulant - No Sharon Carrillo [facility] Jamee Hdz [facility] 05/02/2024 4:16 PM Signed Morena Parnell Michsamantha was sent [employer] message and reminded to test INR today or as soon as possible. 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 - gabapentin (NEURONTIN) 300 mg capsule Take 1 capsule by mouth daily at bedtime for 180 days. - atenolol (TENORMIN) 50 mg tablet Taking 50 mg once daily - warfarin (COUMADIN) 5 mg tablet 7.5 mg daily - lisinopril (ZESTRIL) 10 m (more content not included)... Normal [facility] 03-26-2024 CNPN Telephone (JEN) MORENA MARTINEZ ([id number]) 1965 F Date Time Provider Department 03/26/24 JAMEE HDZ During your visit today, we recorded the following information about you: Jamee Hdz [facility] 03/26/2024 5:20 PM Signed [facility] Ambulatory Pharmacy Anticoagulation Clinic Anticoagulation Episode Summary Anticoagulation Care Providers Provider Role Specialty Phone number Milka Mas MD Family Medicine [phone] Morena Martinez is a 59 year old year old female patient being evaluated today for a Telemanagement visit. Patient is currently on the following anticoagulant(s) Warfarin. Labs PT INR (no units) Date Value 07/28/2022 2.7 (pt reported) 03/20/2022 2.7 01/23/2022 2.9 INR Home CoaguChek (no units) Date Value 03/26/2024 2.2 03/05/2024 2.7 02/12/2024 2.4 Hemoglobin (g/dL) Date Value 04/09/2021 15.2 Hematocrit (%) Date Value 04/09/2021 46.7 Platelet Count (k/uL) Date Value 04/09/2021 299 Creatinine (mg/dL) Date Value 02/01/2024 0.76 11/09/2023 0.72 08/09/2023 0.73 03/23/2021 0.60 12/07/2020 0.62 04/01/2020 0.70 Bilirubin, Total (mg/dL) Date Value 02/01/2024 0.7 12/07/2020 0.6 ALT (U/L) Date Value 02/01/2024 16 12/07/2020 33 AST (U/L) Date Value 02/01/2024 17 12/07/2020 35 CrCl cannot be calculated (Unknown ideal weight.). 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 Embolism and thrombosis (hcc) Anticoagulation Episode Summary Current INR goal: 2.0-3.0 Assessment: INR result of 2.2 is therapeutic Plan: Current Warfarin Dosing As of 03/26/2024 Full warfarin instructions: 5 mg every Fri; 7.5 mg all other days Sent NOBOT message Advised patient to continue current weekly dose as noted above Next home INR check scheduled on 04/09/2024 Patient advised to call the PAC with any medication changes, bleeding/bruising concerns, recent changes in vitamin k consumption, if any procedures are coming up, if they have been ill or in the hospital, and if they have missed any doses of warfarin. Jamee Hdz RPh Clinical Pharmacist, Pharmacy Anticoagulation Clinic Pharmacy Anticoagulation Clinic Pager: [phone]. Jovanny Peralta RPh 04/09/2024 8:27 AM Signed Patient was due to test INR today. Will continue to monitor for results. Follow up in one week if no results received. 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 - tiZANidine (ZANAFLEX) 4 mg tablet Take 1 tablet by mouth every 6 hours as needed. - gabapentin (NEURONTIN) 300 mg capsule Take 1 capsule by mouth daily at bedtime for 180 days. - furosemide (LASIX) 40 mg tablet Take 1 tablet by mouth once daily. - semaglutide (OZEMPIC) 1 mg/dose (4 mg/3 mL) pen Inject 1 mg subcutaneously one time a week. - nystatin (MYCOSTATIN) cream Apply to affected area twice daily. Problem List As Of Date 03/26/2024 Noted Resolved Allergic Rhinitis, Cause Unspecified [J30.9] 12/31/2004 Diverticulosis of Colon (without Mention of Hem* Irritable Bowel Syndrome [K58.9] Migraine NOS/Intractable [G43.919] Other Disorders of Bladder [596] Diffuse Cystic Mastopathy [N60.19] Loc Osteoarth NOS-Site NEC [M19.90] Other (more content not included)... Normal [facility] 03-20[facility]2024 [facility] MORENA MARTINEZ ([id number]) 1965 F Date Time Provider Department 03/20/24 [facility] During your visit today, we recorded the following information about you: Airam Griffith RN 03/20/2024 2:33 PM Signed Patient calls to ask if the provider has received and faxed forms for [employer] Pt Assistance Program. Patient hand delivered them yesterday 03/19/2024 and was told forms would be given to [facility] and that office would call her once they received them and were faxed. No messages in regards to forms noted. Patient asking to please let her know when they have been received and faxed as she has been out of insulin for approximately a month. KYRIE Martinez Amanda, RN 03/21/2024 9:03 AM Signed Pt called in checking on forms, please call once done. Sent message to providers PA to look into finding forms. Catrachito Serna MA 03/21/2024 12:16 PM Signed Form in [facility] Jolley's office found. Form faxed to [facility] at F#: [phone]. Pt called and notified of this. Pt states she dropped forms off out front and just wanted to make sure that office received them. SONNY Randhawa Kathryn, MA 03/22/2024 9:51 AM Signed Office received faxed from [facility] stating that a 4 month supply of medication is being shipped to physicians office and should be received in 10-14 business days. Office will receive a reorder reminder before her next refill. She is approved to receive medicine through 04/30/24 as long as she continues to meet program eligibility guidelines. Fax sent to be scanned into chart. Pinky Dawkins MA Allergies As of Date: 03/20/2024 Noted Allergy Reaction LEVAQUIN (LEVOFLOXACIN) 07/19/2022 14 - Other: See Comments Comments: Notes body aches and joint pain when on medication AUGMENTIN (AMOXICILLIN-POT CLAVUL*12/31/2004 14 - Other: See [...] - Swelling Comments: ankle swelling Date Reviewed: 02/15/2024 Reviewed by: Catrachito Serna MA - Fully Assessed Reason for Visit: Forms [913] Prescriptions as of 03/22/2024 - acetaminophen-codeine (TYLENOL-CODEINE #3) 300-30 mg per tablet Take 1 tablet by mouth two times a day as needed for pain for up to 90 days. - atenolol (TENORMIN) 50 mg tablet Taking 50 mg once daily - warfarin (COUMADIN) 5 mg tablet 7.5 mg daily - lisinopril (ZESTRIL) 10 mg tablet Take 1 tablet by mouth once daily. - tiZANidine (ZANAFLEX) 4 mg tablet Take 1 tablet by mouth every 6 hours as needed. - gabapentin (NEURONTIN) 300 mg capsule Take 1 capsule by mouth daily at bedtime for 180 days. - furosemide (LASIX) 40 mg tablet Take 1 tablet by mouth once daily. - semaglutide (OZEMPIC) 1 mg/dose (4 mg/3 mL) pen Inject 1 mg subcutaneously one time a week. - nystatin (MYCOSTATIN) cream Apply to affected area twice daily. 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] 08/22/2007 Restless Legs Syndrome (RLS) [G25.81] 10/22/2007 Obstructive sleep apnea (adult) (pediatric) [G4*10/22/2007 08/31/2021 Essential Hypertension, Benign [I10] 11/19/2007 Other abnormal glucose [R73.09] 11/19/2007 07/09/2021 Dysmetabolic syndrome X [E88.810] 11/19/2007 07/09/2021 Palpitations [R00.2] 01/29/2009 03/09/2012 Routine Gynecological Examination [Z01.419] 02/11/2009 Class: Chronic Class 3 severe obesity due to excess calories w*02/11/2009 Abdominal pain, left lower quadrant [R10.32] 09/02/2009 03/09/2012 Diarrhea [R19.7] 09/02/2009 07/09/2021 Knee pain [M25.569] 04/27/2010 Status post total right knee replacement [Z96.6*07/25/2011 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 Normal [facility] Carlos 03-07-2024 [facility] JUANDONALDBeth Parnell ([id number]) 1965 F Date Time Provider Department 03/07/24 MILKA MAS During your visit today, we recorded the following information about you: Catrachito Serna MA 03/07/2024 9:21 AM Signed Type of form: [email or web address] Pt Assistance Program. Pt completed an form for renewal and is requesting that office complete new form and fax back to Form received via fax When form is completed, Fax form to [phone] Form has been forwarded to Physician Desk: SONNY Mae Kathryn, MA 03/07/2024 4:27 PM Signed Forms faxed. Pinky Dawkins MA Allergies As of Date: 03/07/2024 Noted Allergy Reaction LEVAQUIN (LEVOFLOXACIN) 07/19/2022 14 - Other: See Comments Comments: Notes body aches and joint pain when on medication AUGMENTIN (AMOXICILLIN-POT CLAVUL*12/31/2004 14 - Other: See [...] - Swelling Comments: ankle swelling Date Reviewed: 02/15/2024 Reviewed by: Catrachito Serna MA - Fully Assessed Reason for Visit: Forms [913] Prescriptions as of 03/07/2024 - acetaminophen-codeine (TYLENOL-CODEINE #3) 300-30 mg per tablet Take 1 tablet by mouth two times a day as needed for pain for up to 90 days. - atenolol (TENORMIN) 50 mg tablet Taking 50 mg once daily - warfarin (COUMADIN) 5 mg tablet 7.5 mg daily - lisinopril (ZESTRIL) 10 mg tablet Take 1 tablet by mouth once daily. - tiZANidine (ZANAFLEX) 4 mg tablet Take 1 tablet by mouth every 6 hours as needed. - gabapentin (NEURONTIN) 300 mg capsule Take 1 capsule by mouth daily at bedtime for 180 days. - furosemide (LASIX) 40 mg tablet Take 1 tablet by mouth once daily. - semaglutide (OZEMPIC) 1 mg/dose (4 mg/3 mL) pen Inject 1 mg subcutaneously one time a week. - nystatin (MYCOSTATIN) cream Apply to affected area twice daily. 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] 08/22/2007 Restless Legs Syndrome (RLS) [G25.81] 10/22/2007 Obstructive sleep apnea (adult) (pediatric) [G4*10/22/2007 08/31/2021 Essential Hypertension, Benign [I10] 11/19/2007 Other abnormal glucose [R73.09] 11/19/2007 07/09/2021 Dysmetabolic syndrome X [E88.810] 11/19/2007 07/09/2021 Palpitations [R00.2] 01/29/2009 03/09/2012 Routine Gynecological Examination [Z01.419] 02/11/2009 Class: Chronic Class 3 severe obesity due to excess calories w*02/11/2009 Abdominal pain, left lower quadrant [R10.32] 09/02/2009 03/09/2012 Diarrhea [R19.7] 09/02/2009 07/09/2021 Knee pain [M25.569] 04/27/2010 Status post total right knee replacement [Z96.6*07/25/2011 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] 10/13/2011 07/09/2021 Perirectal abscess [K61.1] 09/23/2015 07/09/2021 Infrapatellar bursitis of right knee [M70.51] 08/11/2016 07/09/2021 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] 08/11/2016 Hx of [place] [facility] use of blood thinners [Z92.29] 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 [Z79.*03/18/2019 Chronic midline low back pain without sciatica *07/02/2019 Type 2 diabetes mellitus without complication, *12/30/2020 Leg swelling [M79.89] 08/06/2021 Former smoker [Z87.891] 08/06/2021 Bursitis of left shoulder [M75.52] 08/06/2021 08/31/2021 Tendinitis of left shoulder [M77.8] 08/31/2021 08/31/2021 Post-operative pain [G89.18] 09/16/2021 Acute pain of left shoulder [M25.512] 09/16/2021 Bursitis of left shoulder [M75.52] 09/16/2021 Tendinitis of left shoulder [M77.8] 09/16/2021 Inflammatory polyarthropathy (HCC) [M06.4] 12/12/2022 S/P shoulder surgery [Z98.890] 12/30/2022 COVID-19 [U07.1] 04/18/2023 Encounter Status:Closed by PINKY DAWKINS on 03/07/24 [facility] Carlos 03-05-2024 JOHNN Telephone ([facility]) MORENA MARTINEZ ([id number]) 1965 F Date Time Provider Department 03/05/24 JOVANNY PERALTA During your visit today, we recorded the following information about you: Jovanny Peralta, [facility] 03/05/2024 8:58 AM Signed [facility] Ambulatory Pharmacy Anticoagulation Clinic Anticoagulation Episode Summary Anticoagulation Care Providers Provider Role Specialty Phone number Milka Mas MD Family Medicine [phone] Morena Martinez is a 59 year old year old female patient being evaluated today for a Telemanagement visit. Patient is currently on the following anticoagulant(s) Warfarin. Labs PT INR (no units) Date Value 07/28/2022 2.7 (pt reported) 03/20/2022 2.7 01/23/2022 2.9 INR Home CoaguChek (no units) Date Value 03/05/2024 2.7 02/12/2024 2.4 01/29/2024 2.4 Hemoglobin (g/dL) Date Value 04/09/2021 15.2 Hematocrit (%) Date Value 04/09/2021 46.7 Platelet Count (k/uL) Date Value 04/09/2021 299 Creatinine (mg/dL) Date Value 02/01/2024 0.76 11/09/2023 0.72 08/09/2023 0.73 03/23/2021 0.60 12/07/2020 0.62 04/01/2020 0.70 Bilirubin, Total (mg/dL) Date Value 02/01/2024 0.7 12/07/2020 0.6 ALT (U/L) Date Value 02/01/2024 16 12/07/2020 33 AST (U/L) Date Value 02/01/2024 17 12/07/2020 35 CrCl cannot be calculated (Unknown ideal weight.). 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: Anticoagulation Episode Summary Current INR goal: 2.0-3.0 Assessment: INR result of 2.7 is therapeutic Plan: Current Warfarin Dosing As of 03/05/2024 Full warfarin instructions: 5 mg every Fri; 7.5 mg all other days Sent NOBOT message Advised patient to continue current weekly dose as noted above Next home INR check scheduled on 03/19/2024 Patient advised to call the PAC with any medication changes, bleeding/bruising concerns, recent changes in vitamin k consumption, if any procedures are coming up, if they have been ill or in the hospital, and if they have missed any doses of warfarin. Jovanny Peralta RPh Clinical Pharmacist, Pharmacy Anticoagulation Clinic Pharmacy Anticoagulation Clinic Pager: [phone]. Jovanny Peralta RPh 03/19/2024 8:35 AM Signed Patient was due to test INR today. Will continue to monitor for results. Follow up in one week if no results received. Shwetha Rose Amita, RPh 03/26/2024 1:18 PM Signed Morena Martinez was sent [employer] message and reminded to test INR today or as soon as possible. Jessenia Álvarez RPh Allergies As of Date: 03/05/2024 Noted Allergy Reaction LEVAQUIN (LEVOFLOXACIN) 07/19/2022 14 - Other: See Comments Comments: Notes body aches and joint pain when on medication AUGMENTIN (AMOXICILLIN-POT CLAVUL*12/31/2004 14 - Other: See [...] - Swelling Comments: ankle swelling Date Reviewed: 02/15/2024 Reviewed by: Catrachito Serna MA - Fully Assessed Reason for Visit: Anticoagulation Telephone Fu [148] Cmt: Home INR result Prescriptions as of 03/26/2024 - acetaminophen-codeine (TYLENOL-CODEINE #3) 300-30 mg per tablet Take 1 tablet by mouth two times a day as needed for pain for up to 90 days. - atenolol (TENORMIN) 50 mg tablet Taking 50 mg once daily - warfarin (COUMADIN) 5 mg tablet 7.5 mg daily - lisinopril (ZESTRIL) 10 mg tablet Take 1 tablet by mouth once daily. - tiZANidine (ZANAFLEX) 4 mg tablet Take 1 tablet by mouth every 6 hours as needed. - gabapentin (NEURONTIN) 300 mg capsule Take 1 capsule by mouth daily at bedtime for 180 days. - furosemide (LASIX) 40 mg tablet Take 1 tablet by mouth once daily. - semaglutide (OZEMPIC) 1 mg/dose (4 mg/3 mL) pen Inject 1 mg subcutaneously one time a week. - nystatin (MYCOSTATIN) cream Apply to affected area twice daily. Problem List As Of Date 03/05/2024 Noted Resolved Allergic Rhinitis, Cause Unspecified [J30.9] 12/31/2004 Diverticulosis of Colon (without Mention of Hem* Irritable Bowel Syndrome [K58.9] Migraine NOS/Intractable [G43.919] Other Disorders o (more content not included)... [facility] Telephone ([facility]) MORENA MARTINEZ ([id number]) 1965 F Date Time Provider Department 02/22/24 LISA MUNIZ During your visit today, we recorded the following information about you: Lisa Muniz MSW 02/23/2024 8:14 AM Signed Sw left updated [facility] PAP forms for Ozempic at Dr. Mas office for patient. Allergies As of Date: 02/22/2024 Noted Allergy Reaction LEVAQUIN (LEVOFLOXACIN) 07/19/2022 14 - Other: See Comments Comments: Notes body aches and joint pain when on medication AUGMENTIN (AMOXICILLIN-POT CLAVUL*12/31/2004 14 - Other: See [...] - Swelling Comments: ankle swelling Date Reviewed: 02/15/2024 Reviewed by: Catrachito Serna MA - Fully Assessed Prescriptions as of 02/23/2024 - acetaminophen-codeine (TYLENOL-CODEINE #3) 300-30 mg per tablet Take 1 tablet by mouth two times a day as needed for pain for up to 90 days. - atenolol (TENORMIN) 50 mg tablet Taking 50 mg once daily - warfarin (COUMADIN) 5 mg tablet 7.5 mg daily - lisinopril (ZESTRIL) 10 mg tablet Take 1 tablet by mouth once daily. - tiZANidine (ZANAFLEX) 4 mg tablet Take 1 tablet by mouth every 6 hours as needed. - gabapentin (NEURONTIN) 300 mg capsule Take 1 capsule by mouth daily at bedtime for 180 days. - furosemide (LASIX) 40 mg tablet Take 1 tablet by mouth once daily. - semaglutide (OZEMPIC) 1 mg/dose (4 mg/3 mL) pen Inject 1 mg subcutaneously one time a week. - nystatin (MYCOSTATIN) cream Apply to affected area twice daily. Problem List As Of Date 02/22/2024 Noted Resolved Allergic Rhinitis, Cause Unspecified [J30.9] 12/31/2004 Diverticulosis of Colon (without Mention of Hem* Irritable Bowel Syndrome [K58.9] Migraine NOS/Intractable [G43.919] Other Disorders of Bladder [596] Diffuse Cystic Mastopathy [N60.19] Loc Osteoarth NOS-Site NEC [M19.90] Other and Unspecified Disc Disorder of Unspecif* Esophageal Reflux [K21.9] 04/15/2005 Embolism and thrombosis (HCC) [I74.9] 08/22/2007 Restless Legs Syndrome (RLS) [G25.81] 10/22/2007 Obstructive sleep apnea (adult) (pediatric) [G4*10/22/2007 08/31/2021 Essential Hypertension, Benign [I10] 11/19/2007 Other abnormal glucose [R73.09] 11/19/2007 07/09/2021 Dysmetabolic syndrome X [E88.810] 11/19/2007 07/09/2021 Palpitations [R00.2] 01/29/2009 03/09/2012 Routine Gynecological Examination [Z01.419] 02/11/2009 Class: Chronic Class 3 severe obesity due to excess calories w*02/11/2009 Abdominal pain, left lower quadrant [R10.32] 09/02/2009 03/09/2012 Diarrhea [R19.7] 09/02/2009 07/09/2021 Knee pain [M25.569] 04/27/2010 Status post total right knee replacement [Z96.6*07/25/2011 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] 10/13/2011 07/09/2021 Perirectal abscess [K61.1] 09/23/2015 07/09/2021 Infrapatellar bursitis of right knee [M70.51] 08/11/2016 07/09/2021 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] 08/11/2016 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] 08/11/2016 [facility] (current) use of anticoagulants [Z79.*03/18/2019 Chronic midline low back pain without sciatica *07/02/2019 Type 2 diabetes mellitus without complication, *12/30/2020 Leg swelling [M79.89] 08/06/2021 Former smoker [Z87.891] 08/06/2021 Bursitis of left shoulder [M75.52] 08/06/2021 08/31/2021 Tendinitis of left shoulder [M77.8] 08/31/2021 08/31/2021 Post-operative pain [G89.18] 09/16/2021 Acute pain of left shoulder [M25.512] 09/16/2021 Bursitis of left shoulder [M75.52] 09/16/2021 Tendinitis of left shoulder [M77.8] 09/16/2021 Inflammatory polyarthropathy (HCC) [M06.4] 12/12/2022 S/P shoulder surgery [Z98.890] 12/30/2022 COVID-19 [U07.1] 04/18/2023 Encounter Status:Closed by LISA MUNIZ on 02/23/24 [facility] CNOVon 02-15-2024 CNOV Office Visit (FAMPWS ) MORENA MARTINEZ ([id number]) 1965 F Date Time Provider Department 02/15/24 9:20 AM MILKA MAS During your visit today, we recorded the following information about you: Pulse Respiration Blood pressure Weight 68/minute 16/minute 136/82 156 kg Milka Mas MD 02/15/2024 9:55 AM Signed Chief Complaint Patient presents with: F/U 3 Month HPI Morena Martinez is a 59 year old female who presents here today for 3 month follow up. No bowel, Gi, or urinary issues. DM/Obesity: Does not check BS at home. Denies any hypoglycemic episodes or neuropathy sx. Tries to watch diet by watching what she eats. Has not been able to walk due to chronic hip pain. Does try but not able to walk far. Does stuff around the home. Weight last visit was 340 lbs, today's weight 343 lbs. Taking Ozempic 1 mg weekly which she is getting through [email or web address] pt assistance program. Needs this ordered through [employer], only has two weeks left. Pain: Chronic pain. Follows with Ortho, but pain is managed through this office. Pt reports she's having increased hip pain, very bothersome. Currently taking Tylenol #3 1 tab po bid, Zanaflex 4 mg prn and Gabapentin 300 mg at bedtime. HTN: Does not check BP at home. No chest pains, dizziness, or SOB. Taking Atenolol 50 mg 1 pill daily as well as Lisinopril 10 mg daily. DVT: Taking Coumadin, INR and coumadin dosages managed by Pharmacist. Edema: Stable with use of Lasix 40 mg every other day. Feels she's still having edema in her right leg despite using medication. Feels it could be related to inflammation from her right hip. Requested thyroid labs due to increased amounts of hair loss and having dry skin. Reports she is clogging the shower drain, clumps on the shower wall and notices it when she's in the bathroom. Feels this has been ongoing for the past month or so. Feels the hair loss on the top of her head, but overall feels it's everywhere. Denies any new hair products. Dealing with increased stress due to Sister being in the Hospital. HM - Agreeable to Flu. Declines Covid vaccine and RSV at this time. Past medical history, appointments, medications, allergies reviewed. 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 Diffuse cystic mastopathy Diverticulosis of colon (without mention of hemorrhage) Diverticulosis DVT of leg (deep venous thrombosis) (HCC) Right leg Hypertension Irritable bowel syndrome Localized osteoarthrosis not specified whether primary or secondary, other specified sites RT KNEE Migraine, unspecified, with intractable migraine, so stated, without mention of status migrainosus Migraine Obesity, unspecified Osteoarthritis of right knee Other and unspecified disc disorder of unspecified region Intervertebral disc disorders Other disorders of bladder Personal history of colonic polyps 01/21/2015 PMH - PAST MEDICAL HISTORY OF 1989 Pulmonary Embolism Previous Surgical History PAST SURGICAL HISTORY Procedure Laterality Date ANESTH DIAGNOSTIC ARTHROSCOPIC PROC KNEE JOINT 1994 LT KNEE ANESTH DIAGNOSTIC ARTHROSCOPIC PROC KNEE JOINT 1994 RT KNEE APPENDECTOMY ARTHRODESIS C[facility] JNT THUMB W/WO FIX Right 02/21/2018 ARTHROSCOPY KNEE DIAGNOSTIC W/WO SYNOVIAL BX SPX 2008 Right knee ARTHRP KNE CONDYLEANDPLATU MEDIALANDLAT COMPARTMENTS Right 06/27/2011 CHOLECYSTECTOMY Cholecystectomy COLONOSCOPY FLX DX W/COLLJ SPEC WHEN PFRMD 01/21/2015 Repeat 2024 I/D PERIANAL ABSCESS, SUPERFICIAL 08/31/2011 LIG/TRNSXJ FLP TUBE ABDL/VAG APPR UNI/BI REDUCTION OF LARGE BREAST Breast reduction REPAIR ANAL FISTULA W/NICHELLE 12/09/2011 REPAIR OF SHOULDER Left 08/2021 Dr Banks RPR UMBILICAL HRNA 5 YRS/> REDUCIBLE Hernia repair, umbilical >5yr, x2 with mesh TOTAL ABDOMINAL HYSTERECT W/WO RMVL TUBE OVARY Hysterectomy, ARIELLE [place] ECTOPIC W/O SALPINGAND/OOPHORECTOMY Ectopic Family History FAMILY HISTORY Problem Relation Age of Onset Heart Father [place] age 50, sudden Breast Cancer Mother Coronary Artery Disease Brother Quadruple by-pass age 50 Coronary Artery Disease Sister IA late 30's Stroke Sister other (Other) Brother pulmonary embolism other (Other) Sister pulmonary embolism Heart Sister heart attack age 50, stent Diabetes Sister older sister; obese Patient Allergies ALLERGIES Allergen Reactions Levaquin [Levofloxa* Other: See Comments Notes body aches and joint pain when on medication Augmentin [Amoxicil* Other: See Comments Adverse effect, developed yeast infection Bextra [Valdecoxib] Swelling Ankle swelling Celebrex [Celecoxib] Swelling ankle swelling Erythromycin Rash Latex Lovenox [Enoxaparin* Rash Vioxx [Rofecoxib] Swelling ankle swell (more content not included)... Normal [facility] 02-12-2024 CNPN Telephone (JEN) MORENA MARTINEZ ([id number]) 1965 F Date Time Provider Department 02/12/24 MANAS RICHTER During your visit today, we recorded the following information about you: Manas Richter RPh 02/12/2024 7:38 AM Signed [facility] Ambulatory Pharmacy Anticoagulation Clinic Anticoagulation Episode Summary Anticoagulation Care Providers Provider Role Specialty Phone number Milka Mas MD Family Medicine [phone] Morena Martinez is a 59 year old year old female patient being evaluated today for a Telemanagement visit. Patient is currently on the following anticoagulant(s) Warfarin. Labs PT INR (no units) Date Value 07/28/2022 2.7 (pt reported) 03/20/2022 2.7 01/23/2022 2.9 INR Home CoaguChek (no units) Date Value 02/12/2024 2.4 01/29/2024 2.4 01/15/2024 2.8 Hemoglobin (g/dL) Date Value 04/09/2021 15.2 Hematocrit (%) Date Value 04/09/2021 46.7 Platelet Count (k/uL) Date Value 04/09/2021 299 Creatinine (mg/dL) Date Value 02/01/2024 0.76 11/09/2023 0.72 08/09/2023 0.73 03/23/2021 0.60 12/07/2020 0.62 04/01/2020 0.70 Bilirubin, Total (mg/dL) Date Value 02/01/2024 0.7 12/07/2020 0.6 ALT (U/L) Date Value 02/01/2024 16 12/07/2020 33 AST (U/L) Date Value 02/01/2024 17 12/07/2020 35 CrCl cannot be calculated (Unknown ideal weight.). 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: Anticoagulation Episode Summary Current INR goal: 2.0-3.0 Assessment: INR result of 2.4 is therapeutic Plan: Current Warfarin Dosing As of 02/12/2024 Full warfarin instructions: 5 mg every Fri; 7.5 mg all other days Sent NOBOT message Advised patient to continue current weekly dose as noted above Next INR check due on 02/26/2024 Manas Richter [facility] Clinical Pharmacist, Pharmacy Anticoagulation Clinic Pharmacy Anticoagulation Clinic Pager: [phone]. Manas Richter, [facility] 02/26/2024 3:13 PM Signed Patient was due to test INR today. Will continue to monitor for results. Will follow up in one week if no results received. Allergies As of Date: 02/12/2024 Noted Allergy Reaction LEVAQUIN (LEVOFLOXACIN) 07/19/2022 14 - Other: See Comments Comments: Notes body aches and joint pain when on medication AUGMENTIN (AMOXICILLIN-POT CLAVUL*12/31/2004 14 - Other: See [...] - Swelling Comments: ankle swelling Date Reviewed: 11/14/2023 Reviewed by: Catrachito Serna MA - Fully Assessed Reason for Visit: Anticoagulation Telephone Fu [148] Cmt: Home INR Result Prescriptions as of 03/04/2024 - acetaminophen-codeine (TYLENOL-CODEINE #3) 300-30 mg per tablet Take 1 tablet by mouth two times a day as needed for pain for up to 90 days. - atenolol (TENORMIN) 50 mg tablet Taking 50 mg once daily - warfarin (COUMADIN) 5 mg tablet 7.5 mg daily - lisinopril (ZESTRIL) 10 mg tablet Take 1 tablet by mouth once daily. - tiZANidine (ZANAFLEX) 4 mg tablet Take 1 tablet by mouth every 6 hours as needed. - gabapentin (NEURONTIN) 300 mg capsule Take 1 capsule by mouth daily at bedtime for 180 days. - furosemide (LASIX) 40 mg tablet Take 1 tablet by mouth once daily. - semaglutide (OZEMPIC) 1 mg/dose (4 mg/3 mL) pen Inject 1 mg subcutaneously one time a week. - nystatin (MYCOSTATIN) cream Apply to affected area twice daily. Problem List As Of Date 02/12/2024 Noted Resolved Allergic Rhinitis, Cause Unspecified [J30.9] 12/31/2004 Diverticulosis of Colon (without Mention of Hem* Irritable Bowel Syndrome [K58.9] Migraine NOS/Intractable [G43.919] Other Disorders of Bladder [596] Diffuse Cystic Mastopathy [N60.19] Loc Osteoarth NOS-Site NEC [M19.90] Other and Unspecified Disc Disorder of Unspecif* Esophageal Reflux [K21.9] 04/15/2005 Embolism and thrombosis (HCC) [I74.9] 08/22/2007 Restless Legs Syndrome (RLS) [G25.81] 10/22/2007 Obstructive sleep apnea (adult) (pediatric) [G4*10/22/2007 08/31/2021 Essential Hypertension, Benign [I10] 11/19/2007 Other abnormal glucose [R73 (more content not included)... Normal [facility] ALBUMIN/CREATININE RATIO, UR INEon 02-01-2024 Albumin DL <= 20 mg/L (U) [Mass/Vol] mg/dL Normal [facility] Comment on above: Order Comment: Speci men Type: URINE SPECIMENOrdering Facility: [facility] Address: [address] [place] [address] Performed By: #### U ACR ####[facility] LABCLIA [id number] [place] [address] [place] Albumin/Creatinin e (U) [Mass ratio] <5 Normal <30 [facility] Comment on above: Order Comment: Speci men Type: URINE SPECIMENOrdering Facility: [facility] Address: [address] [place] [address] Result Comment: Adul t Male and Female Nephrotic Criteria: <30 mg/g is considered normal to mildly increased 30-300 mg/g is considered moderately increased >300 mg/g is considered severely increased KDIGO. (2013). KDIGO 2012 Clinical Practice Guideline for the Evaluation and Management of Chronic Kidney Disease. Official Journal of the International Society of Nephrology, 3(1), 1-150. Performed By: #### U ACR ####[facility] LABCLIA [id number] [place] [address] [place] Creatinine (U) [Mass/Vol] 262.9 mg/dL Normal 20.0-300.0 [facility] Comment on above: Order Comment: Speci men Type: URINE SPECIMENOrdering Facility: [facility] Address: [address] [place] [address] Performed By: #### U ACR ####[facility] LABCLIA [id number] [place] [id number] [place] Comprehensive metabolic 2000 panelon 02-01-2024 Albumin [Mass/Vol] 3.9 g/dL Normal 3.9-4.9 [facility] Comment on above: Order Comment: Speci men Type: BLOOD SPECIMENOrdering Facility: [facility] Address: [address] [place] [address] Performed By: #### 2 4323-8, 3024-7, 3016-3, 47369-6 ####[facility] LABCLIA [id number] [place] [address] [place] ALP [Catalytic activity/Vol] 64 U/L Normal 34-123 [facility] Comment on above: Order Comment: Speci men Type: BLOOD SPECIMENOrdering Facility: [facility] Address: [address] [place] [address] Performed By: #### 2 4323-8, 3024-7, 3016-3, 06706-5 ####[facility] LABCLIA [id number] [place] [id number] [place] ALT [Catalytic activity/Vol] 16 U/L Normal 7-38 [facility] Comment on above: Order Comment: Speci men Type: BLOOD SPECIMENOrdering Facility: [facility] Address: [address] [place] [address] Performed By: #### 2 4323-8, 3024-7, 3016-3, 97851-1 ####[facility] LABCLIA [id number] [place] [id number] [place] Anion gap [Moles/Vol] 10 mmol/L Normal 8-15 [facility] Comment on above: Order Comment: Speci men Type: BLOOD SPECIMENOrdering Facility: [facility] Address: [address] [place] [address] Performed By: #### 2 4323-8, 3024-7, 3016-3, 43614-3 ####[facility] LABCLIA [id number] [place] [address] [place] AST [Catalytic activity/Vol] 17 U/L Normal 13-35 [facility] Comment on above: Order Comment: Speci men Type: BLOOD SPECIMENOrdering Facility: [facility] Address: [address] [place] [address] Performed By: #### 2 4323-8, 3024-7, 3016-3, 76096-0 ####[facility] LABCLIA [id number] [place] [address] [place] Bilirubin [Mass/Vol] 0.7 mg/dL Normal 0.2-1.3 [facility] Comment on above: Order Comment: Speci men Type: BLOOD SPECIMENOrdering Facility: [facility] Address: [address] [place] [address] Performed By: #### 2 4323-8, 3024-7, 3016-3, 55391-8 ####[facility] LABCLIA [id number] [place] [address] [place] Calcium [Mass/Vol] 9.5 mg/dL Normal 8.5-10.2 [facility] Comment on above: Order Comment: Speci men Type: BLOOD SPECIMENOrdering Facility: [facility] Address: [address] [place] [address] Performed By: #### 2 4323-8, 3024-7, 3016-3, 85585-5 ####[facility] LABCLIA [id number] [place] [address] [place] Chloride [Moles/Vol] 104 mmol/L Normal 98-107 [facility] Comment on above: Order Comment: Speci men Type: BLOOD SPECIMENOrdering Facility: [facility] Address: [address] [place] [address] Performed By: #### 2 4323-8, 3024-7, 3016-3, 84542-3 ####[facility] LABIA [id number] [place] [address] [place] CO2 [Moles/Vol] 26 mmol/L Normal 22-30 [facility] Comment on above: Order Comment: Speci men Type: BLOOD SPECIMENOrdering Facility: [facility] Address: [address] [place] [address] Performed By: #### 2 4323-8, 3024-7, 3016-3, 79187-5 ####[facility] LABIA [id number] [place] [address] [place] Creatinine [Mass/Vol] 0.76 mg/dL Normal 0.58-0.96 [facility] Comment on above: Order Comment: Speci men Type: BLOOD SPECIMENOrdering Facility: [facility] Address: [address] [place] [address] Performed By: #### 2 4323-8, 3024-7, 3016-3, 38047-1 ####[facility] LABIA [id number] [place] [address] [place] Creatinine and Glomerular filtration rate.predicted panel (S/P/Bld) 90 mL/min/1.73m??? Normal >=60 [facility] Comment on above: Order Comment: Speci men Type: BLOOD SPECIMENOrdering Facility: [facility] Address: [address] [place] [address] Result Comment: Akua mated Glomerular Filtration Rate (eGFR) is calculated using the 2020 CKD-EPI creatinine equation. This equation utilizes serum creatinine, sex, and age as parameters. The creatinine assay has traceable calibration to isotope dilution-mass spectrometry. Refer to KDIGO guidelines for clinical interpretation. In patients with unstable renal function, e.g. those with acute kidney injury, the eGFR may not accurately reflect actual GFR. Performed By: #### 2 4323-8, 3024-7, 6-3, 12878-4 ####[facility] LABCLIA [id number] [address] [address] [place] Glucose [Mass/Vol] 118 mg/dL High 74-99 [facility] Comment on above: Order Comment: Mercy vázquez Type: BLOOD SPECIMENOrdering Facility: [facility] Address: [address] [place] [address] Result Comment: The [place] Diabetes Association (ADA) provides guidance for cutoff values for fasting glucose and random glucose. The ADA defines fasting as no caloric intake for at least 8 hours. Fasting plasma glucose results between 100 to 125 [...] Standards of Medical Care in Diabetes 2016, [place] Diabetes Association. Diabetes Care. 2016.39(Suppl 1). Performed By: #### 2 4323-8, 4-7, 3015-3, 19782-1 ####[facility] LABCLIA [id number] [facility] [address] [address] [place] Potassium [Moles/Vol] 4.6 mmol/L Normal 3.7-5.1 [facility] Comment on above: Order Comment: Mercy vázquez Type: BLOOD SPECIMENOrdering Facility: [facility] Address: [address] [place] [address] Performed By: #### 2 4323-8, 3024-7, 6-3, 24627-9 ####[facility] LABCLIA [id number] [facility] [id number] [address] [place] Protein [Mass/Vol] 7.0 g/dL Normal 6.3-8.0 [facility] Comment on above: Order Comment: Speci men Type: BLOOD SPECIMENOrdering Facility: [facility] Address: [address] [place] [address] Performed By: #### 2 4323-8, 3024-7, 3016-3, 02450-9 ####[facility] LABIA [id number] [place] [address] [place] Sodium [Moles/Vol] 140 mmol/L Normal 136-144 [facility] Comment on above: Order Comment: Speci men Type: BLOOD SPECIMENOrdering Facility: [facility] Address: [address] [place] [address] Performed By: #### 2 4323-8, 3024-7, 3016-3, 98970-8 ####[facility] LABIA [id number] [place] [address] [place] Urea nitrogen [Mass/Vol] 19 mg/dL Normal 7-21 [facility] Comment on above: Order Comment: Speci men Type: BLOOD SPECIMENOrdering Facility: [facility] Address: [address] [place] [address] Performed By: #### 2 4323-8, 3024-7, 3016-3, 18306-7 ####[facility] LABIA [id number] [place] [address] [place] HbA1c (Bld)on 02-01-2024 Average glucose Estimated from glycated hemoglobin (Bld) [Mass/Vol] 120 mg/dL Normal [facility] Comment on above: Order Comment: Speci men Type: BLOOD SPECIMENOrdering Facility: [facility] Address: [address] [place] [address] Result Comment: eAG: (Estimated average glucose) is a calculated value from HgbA1c and is public service representative of the average blood glucose level in the last 2-3 month period. Performed By: #### 5 5454-3 ####[facility] LABCLIA [id number] [place] [address] [place] HbA1c (Bld) [Mass fraction] 5.8 % High 4.3-5.6 [facility] Comment on above: Order Comment: Mercy men Type: BLOOD SPECIMENOrdering Facility: [facility] Address: [address] [place] [address] Result Comment: Amer [place] Diabetes Association guidelines indicate that patients with HgbA1c in the range 5.7-6.4% are at increased risk for development of diabetes, and intervention by lifestyle modification may be beneficial. HgbA1c greater or equal to 6.5% is considered diagnostic of diabetes. Performed By: #### 5 5454-3 ####[facility] LABCLIA [id number] [place] [address] [place] Lipid 1996 panelon 4 Cholesterol [Mass/Vol] 178 mg/dL Normal <200 [facility] Comment on above: Order Comment: Nashi men Type: BLOOD SPECIMENOrdering Facility: [facility] Address: [address] [place] [address] Result Comment: <200 mg/dL, Desirable 200-239 mg/dL, Borderline high >239 mg/dL, High Performed By: #### 2 4323-8, 3024-7, 3016-3, 63115-5 ####[facility] LABCLIA [id number] [place] [address] [place] Cholesterol in HDL [Mass/Vol] 49 mg/dL Normal >39 [facility] Comment on above: Order Comment: Nashi men Type: BLOOD SPECIMENOrdering Facility: [facility] Address: [address] [place] [address] Result Comment: 40-5 9 mg/dL, Acceptable >59 mg/dL, High: Negative risk factor for coronary heart disease <40 mg/dL, Low: Positive risk factor for coronary heart disease Performed By: #### 2 4323-8, 3024-7, 3016-3, 98250-3 ####[facility] LABCLIA [id number] [address] [address] [place] Cholesterol in LDL [Mass/Vol] 110 mg/dL High <100 [facility] Comment on above: Order Comment: Speci men Type: BLOOD SPECIMENOrdering Facility: [facility] Address: [address] [place] [address] Result Comment: <100 mg/dL, Optimal 100-129 mg/dL, Near optimal/above optimal 130-159 mg/dL, Borderline high 160-189 mg/dL, High >189 mg/dL, Very high Secondary prevention optimal LDL Cholesterol levels are recommended to be < 70 mg/dL Performed By: #### 2 4323-8, 3024-7, 3016-3, 33372-6 ####[facility] LABIA [id number] [place] [address] [place] Cholesterol in LDL/Cholesterol in HDL [Mass ratio] 2.24 {ratio} Normal <2.54 [facility] Comment on above: Order Comment: Speci men Type: BLOOD SPECIMENOrdering Facility: [facility] Address: [address] [place] [address] Result Comment: Laura sheffield: 1. National Cholesterol Education Program ATP III Guideline At-A-Glance Quick Desk Reference: National Heart, Lung, and Blood [place]. National Institutes of Health. 2001: NIH Publication No. 01-3305. 2. An International Atherosclerosis Society position paper: global recommendations for the management of dyslipidemia: executive summary, Atherosclerosis. 2014: 232(2):410-413. Performed By: #### 2 4323-8, 3024-7, 3016-3, 23390-6 ####[facility] LABCLIA [id number] [place] [address] [place] Cholesterol in VLDL [Mass/Vol] 19 mg/dL Normal <30 [facility] Comment on above: Order Comment: Speci men Type: BLOOD SPECIMENOrdering Facility: [facility] Address: [address] [place] [address] Performed By: #### 2 4323-8, 3024-7, 3015-3, 07862-2 ####[facility] LABCLIA [id number] [address] [address] [place] Cholesterol non HDL [Mass/Vol] 129 mg/dL Normal <130 [facility] Comment on above: Order Comment: Speci men Type: BLOOD SPECIMENOrdering Facility: [facility] Address: [address] [place] [address] Result Comment: <130 mg/dL, Optimal 130-159 mg/dL, Near optimal/above optimal 160-189 mg/dL, Borderline high 190-219 mg/dL, High >219 mg/dL, Very high Secondary prevention optimal non HDL Cholesterol levels are recommended to be <100 mg/dL Performed By: #### 2 4323-8, 4-7, 3015-3, 93175-7 ####[facility] LABCLIA [id number] [place] [address] [place] Cholesterol.total /Cholesterol in HDL [Mass ratio] 3.63 {ratio} Normal <5.10 [facility] Comment on above: Order Comment: Speci men Type: BLOOD SPECIMENOrdering Facility: [facility] Address: [address] [place] [address] Performed By: #### 2 4323-8, 3023-7, 3, 80754-8 ####[facility] LABCLIA [id number] [place] [id number] [place] FASTING TIME 12 hrs Normal [facility] Comment on above: Order Comment: Speci men Type: BLOOD SPECIMENOrdering Facility: [facility] Address: [address] [place] [address] Performed By: #### 2 4323-8, 3023-7, 3, 32449-0 ####[facility] LABCLIA [id number] [address] [address] [place] Triglyceride [Mass/Vol] 95 mg/dL Normal <150 [facility] Comment on above: Order Comment: Speci men Type: BLOOD SPECIMENOrdering Facility: [facility] Address: [address] [place] [address] Result Comment: <150 mg/dL, Normal 150-199 mg/dL, Borderline high 200-499 mg/dL, High >499 mg/dL, Very high Performed By: #### 2 4323-8, 3024-7, 3016-3, 52917-0 ####[facility] LABCLIA [id number] [place] [address] [place] T4 Free SerPl-mCncon 024 Free T4 [Mass/Vol] 1.2 ng/dL Normal 0.9-1.7 [facility] Comment on above: Order Comment: Speci men Type: BLOOD SPECIMENOrdering Facility: [facility] Address: [address] [place] [address] Performed By: #### 2 4323-8, 3024-7, [facility]3, 60703-5 ####[facility] LABIA [id number] [place] [address] [place] TSH SerPl-aCncon 02-01-2024 TSH Qn 2.280 m[IU]/L Normal 0.270-4.20 0 [facility] Comment on above: Order Comment: Speci men Type: BLOOD SPECIMENOrdering Facility: [facility] Address: [address] [place] [address] Performed By: #### 2 4323-8, 3024-7, 3016-3, 48378-1 ####[facility] LABIA [id number] [place] [address] [place] CNPEmilee 01-29-2024 JOHNN Telephone ([facility]) MORENA MARTINEZ ([id number]) 1965 F Date Time Provider Department 01/29/24 MANAS RICHTER During your visit today, we recorded the following information about you: Manas Richter RPh 01/29/2024 9:12 AM Signed [facility] Anticoagulation Clinic Anticoagulation Episode Summary Anticoagulation Care Providers Provider Role Specialty Phone number Milka Mas MD Family Medicine [phone] Morena Martinez is a 59 year old year old female patient being evaluated today for a Telemanagement visit. Patient is currently on the following anticoagulant(s) Warfarin. Labs PT INR (no units) Date Value 07/28/2022 2.7 (pt reported) 03/20/2022 2.7 01/23/2022 2.9 INR Home CoaguChek (no units) Date Value 01/29/2024 2.4 01/15/2024 2.8 01/01/2024 2.5 CrCl cannot be calculated (Unknown ideal weight.). 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: Anticoagulation Episode Summary Current INR goal: 2.0-3.0 Assessment: INR result of 2.4 is therapeutic Plan: Current Warfarin Dosing As of 01/29/2024 Full warfarin instructions: 5 mg every Fri; 7.5 mg all other days Sent NOBOT message Advised patient to continue current weekly dose as noted above Next INR check due on 02/12/2024 Manas Richter [facility] Clinical Pharmacist, Pharmacy Anticoagulation Clinic Pharmacy Anticoagulation Clinic Pager: [phone]. Allergies As of Date: 01/29/2024 Noted Allergy Reaction LEVAQUIN (LEVOFLOXACIN) 07/19/2022 14 - Other: See Comments Comments: Notes body aches and joint pain when on medication AUGMENTIN (AMOXICILLIN-POT CLAVUL*12/31/2004 14 - Other: See [...] - Swelling Comments: ankle swelling Date Reviewed: 11/14/2023 Reviewed by: Catrachito Serna MA - Fully Assessed Reason for Visit: Anticoagulation Telephone Fu [148] Cmt: Home INR Result Prescriptions as of 01/29/2024 - acetaminophen-codeine (TYLENOL-CODEINE #3) 300-30 mg per tablet Take 1 tablet by mouth two times a day as needed for pain for up to 90 days. - atenolol (TENORMIN) 50 mg tablet Taking 50 mg once daily - warfarin (COUMADIN) 5 mg tablet 7.5 mg daily - lisinopril (ZESTRIL) 10 mg tablet Take 1 tablet by mouth once daily. - tiZANidine (ZANAFLEX) 4 mg tablet Take 1 tablet by mouth every 6 hours as needed. - gabapentin (NEURONTIN) 300 mg capsule Take 1 capsule by mouth daily at bedtime for 180 days. - furosemide (LASIX) 40 mg tablet Take 1 tablet by mouth once daily. - semaglutide (OZEMPIC) 1 mg/dose (4 mg/3 mL) pen Inject 1 mg subcutaneously one time a week. - nystatin (MYCOSTATIN) cream Apply to affected area twice daily. 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] 08/22/2007 Restless Legs Syndrome (RLS) [G25.81] 10/22/2007 Obstructive sleep apnea (adult) (pediatric) [G4*10/22/2007 08/31/2021 Essential Hypertension, Benign [I10] 11/19/2007 Other abnormal glucose [R73.09] 11/19/2007 07/09/2021 Dysmetabolic syndrome X [E88.810] 11/19/2007 07/09/2021 Palpitations [R00.2] 01/29/2009 03/09/2012 Routine Gynecological Examination [Z01.419] 02/11/2009 Class: Chronic Class 3 severe obesity due to excess calories w*02/11/2009 Abdominal pain, left lower quadrant [R10.32] 09/02/2009 03/09/2012 Diarrhea [R19.7] 09/02/2009 07/09/2021 Knee pain [M25.569] 04/27/2010 Status post total right knee replacement [Z96.6*07/25/2011 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 [facility] ([place]) MORENA MARTINEZ ([id number]) 1965 F Date Time Provider Department 01/15/24 MANAS RICHTER During your visit today, we recorded the following information about you: Allergies As of Date: 01/15/2024 Noted Allergy Reaction LEVAQUIN (LEVOFLOXACIN) 07/19/2022 14 - Other: See Comments Comments: Notes body aches and joint pain when on medication AUGMENTIN (AMOXICILLIN-POT CLAVUL*12/31/2004 14 - Other: See [...] - Swelling Comments: ankle swelling Date Reviewed: 11/14/2023 Reviewed by: Catrachito Serna MA - Fully Assessed Reason for Visit: Anticoagulation Telephone Fu [148] Cmt: Lab INR Result Prescriptions as of 01/15/2024 - acetaminophen-codeine (TYLENOL-CODEINE #3) 300-30 mg per tablet Take 1 tablet by mouth two times a day as needed for pain for up to 90 days. - atenolol (TENORMIN) 50 mg tablet Taking 50 mg once daily - warfarin (COUMADIN) 5 mg tablet 7.5 mg daily - lisinopril (ZESTRIL) 10 mg tablet Take 1 tablet by mouth once daily. - tiZANidine (ZANAFLEX) 4 mg tablet Take 1 tablet by mouth every 6 hours as needed. - gabapentin (NEURONTIN) 300 mg capsule Take 1 capsule by mouth daily at bedtime for 180 days. - furosemide (LASIX) 40 mg tablet Take 1 tablet by mouth once daily. - semaglutide (OZEMPIC) 1 mg/dose (4 mg/3 mL) pen Inject 1 mg subcutaneously one time a week. - nystatin (MYCOSTATIN) cream Apply to affected area twice daily. 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] 08/22/2007 Restless Legs Syndrome (RLS) [G25.81] 10/22/2007 Obstructive sleep apnea (adult) (pediatric) [G4*10/22/2007 08/31/2021 Essential Hypertension, Benign [I10] 11/19/2007 Other abnormal glucose [R73.09] 11/19/2007 07/09/2021 Dysmetabolic syndrome X [E88.810] 11/19/2007 07/09/2021 Palpitations [R00.2] 01/29/2009 03/09/2012 Routine Gynecological Examination [Z01.419] 02/11/2009 Class: Chronic Class 3 severe obesity due to excess calories w*02/11/2009 Abdominal pain, left lower quadrant [R10.32] 09/02/2009 03/09/2012 Diarrhea [R19.7] 09/02/2009 07/09/2021 Knee pain [M25.569] 04/27/2010 Status post total right knee replacement [Z96.6*07/25/2011 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] 10/13/2011 07/09/2021 Perirectal abscess [K61.1] 09/23/2015 07/09/2021 Infrapatellar bursitis of right knee [M70.51] 08/11/2016 07/09/2021 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] 08/11/2016 Hx of [facility] use of blood thinners [Z92.29] 08/11/2016 [facility] (current) use of anticoagulants [Z79.*03/18/2019 Chronic midline low back pain without sciatica *07/02/2019 Type 2 diabetes mellitus without complication, *12/30/2020 Leg swelling [M79.89] 08/06/2021 Former smoker [Z87.891] 08/06/2021 Bursitis of left shoulder [M75.52] 08/06/2021 08/31/2021 Tendinitis of left shoulder [M77.8] 08/31/2021 08/31/2021 Post-operative pain [G89.18] 09/16/2021 Acute pain of left shoulder [M25.512] 09/16/2021 Bursitis of left shoulder [M75.52] 09/16/2021 Tendinitis of left shoulder [M77.8] 09/16/2021 Inflammatory polyarthropathy (HCC) [M06.4] 12/12/2022 S/P shoulder surgery [Z98.890] 12/30/2022 COVID-19 [U07.1] 04/18/2023 Encounter Status:Closed by MANAS RICHTER on 01/15/24 Normal [facility] CNPNon 01-01-2024 CNPN Telephone (PHAMTE) MORENA MARTINEZ ([id number]) 1965 F Date Time Provider Department 01/01/24 JAMEE HDZ During your visit today, we recorded the following information about you: Jamee Hdz, [facility] 01/01/2024 8:54 PM Signed [facility] Ambulatory Pharmacy Anticoagulation Clinic Anticoagulation Episode Summary Anticoagulation Care Providers Provider Role Specialty Phone number Milka Mas MD Family Medicine [phone] Morena Martinez is a 58 year old year old female patient being evaluated today for a Telemanagement visit. Patient is currently on the following anticoagulant(s) Warfarin. Labs PT INR (no units) Date Value 07/28/2022 2.7 (pt reported) 03/20/2022 2.7 01/23/2022 2.9 INR Home CoaguChek (no units) Date Value 01/01/2024 2.5 12/18/2023 2.2 12/04/2023 1.8 Hemoglobin (g/dL) Date Value 04/09/2021 15.2 Hematocrit (%) Date Value 04/09/2021 46.7 Platelet Count (k/uL) Date Value 04/09/2021 299 Creatinine (mg/dL) Date Value 11/09/2023 0.72 08/09/2023 0.73 04/14/2023 0.77 03/23/2021 0.60 12/07/2020 0.62 04/01/2020 0.70 Bilirubin, Total (mg/dL) Date Value 11/09/2023 0.5 12/07/2020 0.6 ALT (U/L) Date Value 11/09/2023 18 12/07/2020 33 AST (U/L) Date Value 11/09/2023 20 12/07/2020 35 CrCl cannot be calculated (Unknown ideal weight.). 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 - tiZANidine (ZANAFLEX) 4 mg tablet Take 1 tablet by mouth every 6 hours as needed. - gabapentin (NEURONTIN) 300 mg capsule Take 1 capsule by mouth daily at bedtime for 180 days. - furosemide (LASIX) 40 mg tablet Take 1 tablet by mouth once daily. - semaglutide (OZEMPIC) 1 mg/dose (4 mg/3 mL) pen Inject 1 mg subcutaneously one time a week. - nystatin (MYCOSTATIN) cream Apply to affected area twice daily. 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 Normal [facility] CNPNon 12-19-2023 CNPN Telephone (FAMPWS) MORENA MARTINEZ ([id number]) 1965 F Date Time Provider Department 12/19/23 MILKA MAS [facility] During your visit today, we recorded the following information about you: Catrachito Serna MA 12/19/2023 11:07 AM Signed Pt stopped in office today requesting a Prednisone prescription. Last time she took this, this really helped her. She's having increased pain in right hip, b/l knee's and b/l shoulders. Unsure if this is related to a Fibro flare with the weather changing but her Tylenol with Codeine is not helping at this time. Asking if PCP will give steroid taper to get this controlled. Please advise. Pharmacy - [facility] SONNY Randhawa Mark D, MD 12/19/2023 11:23 AM Signed OK for 9 day prednisone taper as ordered MD Be Garcia Rilee, MA 12/19/2023 11:39 AM Signed Pt called and notified that Rx has been sent into preferred pharmacy. Pt verbalized understanding. Catrachito Serna MA Allergies As of Date: 12/19/2023 Noted Allergy Reaction LEVAQUIN (LEVOFLOXACIN) 07/19/2022 14 - Other: See Comments Comments: Notes body aches and joint pain when on medication AUGMENTIN (AMOXICILLIN-POT CLAVUL*12/31/2004 14 - Other: See [...] - Swelling Comments: ankle swelling Date Reviewed: 11/14/2023 Reviewed by: Catrachito Serna MA - Fully Assessed Reason for Visit: Patient Question [4807] Order(s):predniSONE (DELTASONE) 10 mg tabletTake 4 tabs daily for 3 days, then 2 tabs daily for 3 days, then 1 tab daily for 3 days with food.Disp: 21 tabletRfl: 0 Prescriptions as of 12/19/2023 - predniSONE (DELTASONE) 10 mg tablet Take 4 tabs daily for 3 days, then 2 tabs daily for 3 days, then 1 tab daily for 3 days with food. - atenolol (TENORMIN) 50 mg tablet Taking 50 mg once daily - warfarin (COUMADIN) 5 mg tablet 7.5 mg daily - lisinopril (ZESTRIL) 10 mg tablet Take 1 tablet by mouth once daily. - tiZANidine (ZANAFLEX) 4 mg tablet Take 1 tablet by mouth every 6 hours as needed. - gabapentin (NEURONTIN) 300 mg capsule Take 1 capsule by mouth daily at bedtime for 180 days. - furosemide (LASIX) 40 mg tablet Take 1 tablet by mouth once daily. - semaglutide (OZEMPIC) 1 mg/dose (4 mg/3 mL) pen Inject 1 mg subcutaneously one time a week. - nystatin (MYCOSTATIN) cream Apply to affected area twice daily. 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] 08/22/2007 Restless Legs Syndrome (RLS) [G25.81] 10/22/2007 Obstructive sleep apnea (adult) (pediatric) [G4*10/22/2007 08/31/2021 Essential Hypertension, Benign [I10] 11/19/2007 Other abnormal glucose [R73.09] 11/19/2007 07/09/2021 Dysmetabolic syndrome X [E88.810] 11/19/2007 07/09/2021 Palpitations [R00.2] 01/29/2009 03/09/2012 Routine Gynecological Examination [Z01.419] 02/11/2009 Class: Chronic Class 3 severe obesity due to excess calories w*02/11/2009 Abdominal pain, left lower quadrant [R10.32] 09/02/2009 03/09/2012 Diarrhea [R19.7] 09/02/2009 07/09/2021 Knee pain [M25.569] 04/27/2010 Status post total right knee replacement [Z96.6*07/25/2011 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] 10/13/2011 07/09/2021 Perirectal abscess [K61.1] 09/23/2015 07/09/2021 Infrapatellar bursitis of right knee [M70.51] 08/11/2016 07/09/2021 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] 08/11/2016 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] 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 [Z79.*03/18/2019 Chronic midline low back pain without sciatica *07/02/2019 Type 2 diabetes mellitus without complication, *12/30/2020 Leg swelling [M79.89] 08/06/2021 Former smoker [Z87.891] 08/06/2021 Bursitis of left shoulder [M75.52] 08/06/2021 08/31/2021 Tendinitis of left shoulder [M77.8] 08/31/2021 08/31/2021 Post-operative pain [G89.18] 09/16/2021 Acute pain of left shoulder [M25.512] 09/16/2021 Bursitis of left shoulder [M75.52] 09/16/2021 Tendinitis of left shoulder [M77.8] 09/16/2021 Inflammatory polyarthropathy (HCC) [M06.4] 12/12/2022 S/P shoulder surgery [Z98.890] 12/30/2022 COVID-19 [U07.1] 03/31 (more content not included)... Normal [facility] CNPNon 12-18-2023 CNPN Telephone (PHAMTE) MORENA MARTINEZ ([id number]) 1965 F Date Time Provider Department 12/18/23 JESSENIA ÁLVAREZ During your visit today, we recorded the following information about you: Jessenia Álvarez RPh 12/18/2023 1:25 PM Signed [facility] Ambulatory Pharmacy Anticoagulation Clinic Anticoagulation Episode Summary Anticoagulation Care Providers Provider Role Specialty Phone number Milka Mas MD Family Medicine [phone] Morena Martinez is a 58 year old year old female patient being evaluated today for a Telemanagement visit. Patient is currently on the following anticoagulant(s) Warfarin. Labs PT INR (no units) Date Value 07/28/2022 2.7 (pt reported) 03/20/2022 2.7 01/23/2022 2.9 INR Home CoaguChek (no units) Date Value 12/18/2023 2.2 12/04/2023 1.8 11/20/2023 1.8 Hemoglobin (g/dL) Date Value 04/09/2021 15.2 Hematocrit (%) Date Value 04/09/2021 46.7 Platelet Count (k/uL) Date Value 04/09/2021 299 Creatinine (mg/dL) Date Value 11/09/2023 0.72 08/09/2023 0.73 04/14/2023 0.77 03/23/2021 0.60 12/07/2020 0.62 04/01/2020 0.70 Bilirubin, Total (mg/dL) Date Value 11/09/2023 0.5 12/07/2020 0.6 ALT (U/L) Date Value 11/09/2023 18 12/07/2020 33 AST (U/L) Date Value 11/09/2023 20 12/07/2020 35 CrCl cannot be calculated (Unknown ideal weight.). 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: Anticoagulation Episode Summary Current INR goal: 2.0-3.0 Assessment: INR result of 2.2 is therapeutic Plan: Current Warfarin Dosing As of 12/18/2023 Full warfarin instructions: 5 mg every Fri; 7.5 mg all other days Sent NOBOT message Advised patient to continue current weekly dose as noted above Next home INR check scheduled on 12/25/2023 Jessenia Álvarez [facility] Clinical Pharmacist, Pharmacy Anticoagulation Clinic Pharmacy Anticoagulation Clinic Pager: [phone]. Allergies As of Date: 12/18/2023 Noted Allergy Reaction LEVAQUIN (LEVOFLOXACIN) 07/19/2022 14 - Other: See Comments Comments: Notes body aches and joint pain when on medication AUGMENTIN (AMOXICILLIN-POT CLAVUL*12/31/2004 14 - Other: See [...] - Swelling Comments: ankle swelling Date Reviewed: 11/14/2023 Reviewed by: Catrachito Serna MA - Fully Assessed Reason for Visit: Anticoagulation Telephone Fu [148] Prescriptions as of 12/25/2023 - predniSONE (DELTASONE) 10 mg tablet Take 4 tabs daily for 3 days, then 2 tabs daily for 3 days, then 1 tab daily for 3 days with food. - atenolol (TENORMIN) 50 mg tablet Taking 50 mg once daily - warfarin (COUMADIN) 5 mg tablet 7.5 mg daily - lisinopril (ZESTRIL) 10 mg tablet Take 1 tablet by mouth once daily. - tiZANidine (ZANAFLEX) 4 mg tablet Take 1 tablet by mouth every 6 hours as needed. - gabapentin (NEURONTIN) 300 mg capsule Take 1 capsule by mouth daily at bedtime for 180 days. - furosemide (LASIX) 40 mg tablet Take 1 tablet by mouth once daily. - semaglutide (OZEMPIC) 1 mg/dose (4 mg/3 mL) pen Inject 1 mg subcutaneously one time a week. - nystatin (MYCOSTATIN) cream Apply to affected area twice daily. Problem List As Of Date 12/18/2023 Noted Resolved Allergic Rhinitis, Cause Unspecified [J30.9] 12/31/2004 Diverticulosis of Colon (without Mention of Hem* Irritable Bowel Syndrome [K58.9] Migraine NOS/Intractable [G43.919] Other Disorders of Bladder [596] Diffuse Cystic Mastopathy [N60.19] Loc Osteoarth NOS-Site NEC [M19.90] Other and Unspecified Disc Disorder of Unspecif* Esophageal Reflux [K21.9] 04/15/2005 Embolism and thrombosis (HCC) [I74.9] 08/22/2007 Restless Legs Syndrome (RLS) [G25.81] 10/22/2007 Obstructive sleep apnea (adult) (pediatric) [G4*10/22/2007 08/31/2021 Essential Hypertension, Benign [I10] 11/19/2007 Other abnormal glucose [R73.09] 11/19/2007 07/09/2021 Dysmetabolic syndrome X [E88.810] 11/19/2007 07/09/2021 Palpitations [R00.2] 01/29/2009 03/09/2012 Routine Gynecological Examination [Z01.419] 02/11/2009 Class: Chron (more content not included)... Normal [facility] CNPNon 12-04-2023 CNPN Telephone (PHAMTE) MORENA MARTINEZ ([id number]) 1965 F Date Time Provider Department 12/04/23 MANAS RICHTER During your visit today, we recorded the following information about you: Manas Richter RPh 12/04/2023 10:07 AM Signed [facility] Ambulatory Pharmacy Anticoagulation Clinic Anticoagulation Episode Summary Anticoagulation Care Providers Provider Role Specialty Phone number Milka Mas MD Family Medicine [phone] Morena Soheila Martinez is a 58 year old year old female patient being evaluated today for a Telemanagement visit. Patient is currently on the following anticoagulant(s) Warfarin. Labs PT INR (no units) Date Value 07/28/2022 2.7 (pt reported) 03/20/2022 2.7 01/23/2022 2.9 INR Home CoaguChek (no units) Date Value 12/04/2023 1.8 11/20/2023 1.8 11/06/2023 2.4 Estimated Creatinine Clearance: 131.2 mL/min (based on SCr of 0.72 mg/dL). 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: Anticoagulation Episode Summary Current INR goal: 2.0-3.0 Assessment: INR result of 1.8 is SUBtherapeutic due to: No obvious cause (patient denies liver, green tea, new herbal/nutritional supplements - such as Boost, Ensure, an increase in vit K foods and/or V8 type juices, any changes in warfarin tablet, or missed doses) Plan: Current Warfarin Dosing As of 12/04/2023 Full warfarin instructions: 5 mg every Fri; 7.5 mg all other days Called and spoke to patient/caregiver Advised patient to increase total weekly regimen Next INR check due on 12/18/2023 Patient verbalizes understanding of the plan. Manas Richter [facility] Clinical Pharmacist, Pharmacy Anticoagulation Clinic Pharmacy Anticoagulation Clinic Pager: [phone]. Jessenia Álvarez RPh 12/18/2023 10:25 AM Signed Patient was due to test INR today. Will continue to monitor for results. Follow up in one week if no results received. Jessenia Álvarez RPh Allergies As of Date: 12/04/2023 Noted Allergy Reaction LEVAQUIN (LEVOFLOXACIN) 07/19/2022 14 - Other: See Comments Comments: Notes body aches and joint pain when on medication AUGMENTIN (AMOXICILLIN-POT CLAVUL*12/31/2004 14 - Other: See [...] - Swelling Comments: ankle swelling Date Reviewed: 11/14/2023 Reviewed by: Catrachito Serna MA - Fully Assessed Reason for Visit: Anticoagulation Telephone Fu [148] Cmt: Home INR Result Prescriptions as of 12/18/2023 - atenolol (TENORMIN) 50 mg tablet Taking 50 mg once daily - warfarin (COUMADIN) 5 mg tablet 7.5 mg daily - lisinopril (ZESTRIL) 10 mg tablet Take 1 tablet by mouth once daily. - tiZANidine (ZANAFLEX) 4 mg tablet Take 1 tablet by mouth every 6 hours as needed. - gabapentin (NEURONTIN) 300 mg capsule Take 1 capsule by mouth daily at bedtime for 180 days. - furosemide (LASIX) 40 mg tablet Take 1 tablet by mouth once daily. - semaglutide (OZEMPIC) 1 mg/dose (4 mg/3 mL) pen Inject 1 mg subcutaneously one time a week. - nystatin (MYCOSTATIN) cream Apply to affected area twice daily. Problem List As Of Date 12/04/2023 Noted Resolved Allergic Rhinitis, Cause Unspecified [J30.9] 12/31/2004 Diverticulosis of Colon (without Mention of Hem* Irritable Bowel Syndrome [K58.9] Migraine NOS/Intractable [G43.919] Other Disorders of Bladder [596] Diffuse Cystic Mastopathy [N60.19] Loc Osteoarth NOS-Site NEC [M19.90] Other and Unspecified Disc Disorder of Unspecif* Esophageal Reflux [K21.9] 04/15/2005 Embolism and thrombosis (HCC) [I74.9] 08/22/2007 Restless Legs Syndrome (RLS) [G25.81] 10/22/2007 Obstructive sleep apnea (adult) (pediatric) [G4*10/22/2007 08/31/2021 Essential Hypertension, Benign [I10] 11/19/2007 Other abnormal glucose [R73.09] 11/19/2007 07/09/2021 Dysmetabolic syndrome X [E88.810] 11/19/2007 07/09/2021 Palpitations [R00.2] 01/29/2009 03/09/2012 Routine Gynecological Examination [Z01.419] 02/11/2009 Class: Chronic Class 3 severe obesity due to excess calories w*02/11/2009 Abdominal pain, left lower quadrant [R10.32] (more content not included)... Normal [facility] Carlos 11-20-2023 JENARO Telephone ([facility]) MORENA MARTINEZ ([id number]) 1965 F Date Time Provider Department 11/20/23 MANAS RICHTER During your visit today, we recorded the following information about you: Manas Richter RPh 11/20/2023 11:28 AM Signed [facility] Ambulatory Pharmacy Anticoagulation Clinic Anticoagulation Episode Summary Anticoagulation Care Providers Provider Role Specialty Phone number Milka Mas MD Family Medicine [phone] Morena Martinez is a 58 year old year old female patient being evaluated today for a Telemanagement visit. Patient is currently on the following anticoagulant(s) Warfarin. Labs PT INR (no units) Date Value 07/28/2022 2.7 (pt reported) 03/20/2022 2.7 01/23/2022 2.9 INR Home CoaguChek (no units) Date Value 11/20/2023 1.8 11/06/2023 2.4 10/23/2023 2.8 Estimated Creatinine Clearance: 131.2 mL/min (based on SCr of 0.72 mg/dL). 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: Anticoagulation Episode Summary Current INR goal: 2.0-3.0 Assessment: INR result of 1.8 is SUBtherapeutic due to: No obvious cause (patient denies liver, green tea, new herbal/nutritional supplements - such as Boost, Ensure, an increase in vit K foods and/or V8 type juices, any changes in warfarin tablet, or missed doses) Plan: Current Warfarin Dosing As of 11/20/2023 Full warfarin instructions: 11/19: 7.5 mg; Otherwise 5 mg every Mon, Wed, Fri; 7.5 mg all other days Called and spoke to patient/caregiver Advised patient to increase dose for 1 day only then resume weekly regimen Next INR check due on 12/04/2023 Patient verbalizes understanding of the plan. Manas Richter [facility] Clinical Pharmacist, Pharmacy Anticoagulation Clinic Pharmacy Anticoagulation Clinic Pager: [phone]. Allergies As of Date: 11/20/2023 Noted Allergy Reaction LEVAQUIN (LEVOFLOXACIN) 07/19/2022 14 - Other: See Comments Comments: Notes body aches and joint pain when on medication AUGMENTIN (AMOXICILLIN-POT CLAVUL*12/31/2004 14 - Other: See [...] - Swelling Comments: ankle swelling Date Reviewed: 11/14/2023 Reviewed by: Catrachito Serna MA - Fully Assessed Reason for Visit: Anticoagulation Telephone Fu [148] Cmt: Home INR Result Prescriptions as of 11/20/2023 - tiZANidine (ZANAFLEX) 4 mg tablet Take 1 tablet by mouth every 6 hours as needed. - gabapentin (NEURONTIN) 300 mg capsule Take 1 capsule by mouth daily at bedtime for 180 days. - acetaminophen-codeine (TYLENOL-CODEINE #3) 300-30 mg per tablet Take 1 tablet by mouth two times a day as needed for pain for up to 90 days. - furosemide (LASIX) 40 mg tablet Take 1 tablet by mouth once daily. - semaglutide (OZEMPIC) 1 mg/dose (4 mg/3 mL) pen Inject 1 mg subcutaneously one time a week. - atenolol (TENORMIN) 50 mg tablet Taking 50 mg once daily - warfarin (COUMADIN) 5 mg tablet 7.5 mg daily - lisinopril (ZESTRIL) 10 mg tablet Take 1 tablet by mouth once daily. - nystatin (MYCOSTATIN) cream Apply to affected area twice daily. Problem List As Of Date 11/20/2023 Noted Resolved Allergic Rhinitis, Cause Unspecified [J30.9] 12/31/2004 Diverticulosis of Colon (without Mention of Hem* Irritable Bowel Syndrome [K58.9] Migraine NOS/Intractable [G43.919] Other Disorders of Bladder [596] Diffuse Cystic Mastopathy [N60.19] Loc Osteoarth NOS-Site NEC [M19.90] Other and Unspecified Disc Disorder of Unspecif* Esophageal Reflux [K21.9] 04/15/2005 Embolism and thrombosis (HCC) [I74.9] 08/22/2007 Restless Legs Syndrome (RLS) [G25.81] 10/22/2007 Obstructive sleep apnea (adult) (pediatric) [G4*10/22/2007 08/31/2021 Essential Hypertension, Benign [I10] 11/19/2007 Other abnormal glucose [R73.09] 11/19/2007 07/09/2021 Dysmetabolic syndrome X [E88.810] 11/19/2007 07/09/2021 Palpitations [R00.2] 01/29/2009 03/09/2012 Routine Gynecological Examination [Z01.419] 02/11/2009 Class: Chronic Class 3 severe obesity due to excess calories w*02/11/2009 Abdominal pain, left lower quadra (more content not included)... Normal [facility] CNOVon 11-14-2023 CNOV Office Visit (FAMPWS ) MORENA MARTINEZ ([id number]) 1965 F Date Time Provider Department 11/14/23 9:00 AM MILKA MAS FAMPWS During your visit today, we recorded the following information about you: Pulse Respiration Blood pressure Weight 76/minute 18/minute 126/78 154.5 kg Milka Mas MD 11/14/2023 9:46 AM Signed Chief Complaint Patient presents with: F/U 3 Month HPI Morena Martinez is a 58 year old female who presents here today for 3 month follow up. Here today for her routine follow up. No bowel, Gi, or urinary issues. Pain: Chronic pain. Follows with Ortho, but pain is managed through this office. Pt reports she's having increased hip pain, very bothersome. Currently taking Tylenol #3 1 tab po bid, Zanaflex 4 mg prn and Gabapentin 300 mg at bedtime. HTN: Does not check BP at home. No chest pains, dizziness, or SOB. Taking Atenolol 50 mg 1 pill daily as well as Lisinopril 10 mg daily. DM/Obesity: Taking Ozempic 1 mg weekly. Has been out of medication for the past month due to issues with Reji Nordisk. Can tell a big difference with being with out medication. Notes that her energy level is decreased and feels more hungry, but trying to watch this. Does not check BS at home. Denies any hypoglycemic episodes or neuropathy sx. Tries to watch diet, trying to avoid sweets, down to 1 can of pop a day, not eating as much throughout the day. Has not been able to walk due to chronic hip pain. Does try but not able to walk far. Does stuff around the home. Weight last visit was 338 lbs, today 340 lbs. Edema: Stable with use of Lasix 40 mg every other day. When she was seen at the Hospital they felt she had edema. Does note prior to going she was having b/l leg edema. DVT: Taking Coumadin, INR and coumadin dosages managed by Pharmacist. Pt was in the [facility] ER 11/11/23 for LLE wound, dx with cellulitis and treated with 10 days of Keflex 500 mg QID. Currently taking abx and wrapping area. States she hit a bird feeder and was covering the area with a band-aid. When taking off the band-aid it took off skin and she feels that is what caused the cellulitis. Does feel the area has improved since she went to the ED. Reports she's been on multiple abx recently due to infections. HM - Mammogram ordered. Does not follow with Podiatry. Declines Shingles vaccine. Past medical history, appointments, medications, allergies reviewed. 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 Diffuse cystic mastopathy Diverticulosis of colon (without mention of hemorrhage) Diverticulosis DVT of leg (deep venous thrombosis) (HCC) Right leg Hypertension Irritable bowel syndrome Localized osteoarthrosis not specified whether primary or secondary, other specified sites RT KNEE Migraine, unspecified, with intractable migraine, so stated, without mention of status migrainosus Migraine Obesity, unspecified Osteoarthritis of right knee Other and unspecified disc disorder of unspecified region Intervertebral disc disorders Other disorders of bladder Personal history of colonic polyps 01/21/2015 PMH - PAST MEDICAL HISTORY OF 1989 Pulmonary Embolism Previous Surgical History PAST SURGICAL HISTORY Procedure Laterality Date ANESTH DIAGNOSTIC ARTHROSCOPIC PROC KNEE JOINT 1994 LT KNEE ANESTH DIAGNOSTIC ARTHROSCOPIC PROC KNEE JOINT 1994 RT KNEE APPENDECTOMY ARTHRODESIS CMC JNT THUMB W/WO FIX Right 02/21/2018 ARTHROSCOPY KNEE DIAGNOSTIC W/WO SYNOVIAL BX SPX 2007 Right knee ARTHRP KNE CONDYLEANDPLATU MEDIALANDLAT COMPARTMENTS Right 06/27/2011 CHOLECYSTECTOMY Cholecystectomy COLONOSCOPY FLX DX W/COLLJ SPEC WHEN PFRMD 01/21/2015 Repeat 2024 I/D PERIANAL ABSCESS, SUPERFICIAL 08/31/2011 LIG/TRNSXJ FLP TUBE ABDL/VAG APPR UNI/BI REDUCTION OF LARGE BREAST Breast reduction REPAIR ANAL FISTULA W/NICHELLE 12/09/2011 REPAIR OF SHOULDER Left 08/2021 Dr Banks RPR UMBILICAL HRNA 5 YRS/> REDUCIBLE Hernia repair, umbilical >5yr, x2 with mesh TOTAL ABDOMINAL HYSTERECT W/WO RMVL TUBE OVARY Hysterectomy, ARIELLE [place] ECTOPIC W/O SALPINGAND/OOPHORECTOMY Ectopic Family History FAMILY HISTORY Problem Relation Age of Onset Heart Father [place] age 50, sudden Breast Cancer Mother Coronary Artery Disease Brother Quadruple by-pass age 50 Coronary Artery Disease Sister IA late 30's Stroke Sister other (Other) Brother pulmonary embolism other (Other) Sister pulmonary embolism Heart Sister heart attack age 50, stent Diabetes Sister older sister; obese Patient Allergies ALLERGIES Allergen Reactions Levaquin [Levofloxa* Other: See Comments Notes body aches and joint pain when on medication Augmentin [Amoxicil* Other: See Comments Adverse effect, developed yeas (more content not included)... Normal [facility] Carlos 11-14-2023 JOHNN Telephone (FAMPWS) MORENA MARTINEZ ([id number]) 1965 F Date Time Provider Department 11/14/23 MILKA MAS During your visit today, we recorded the following information about you: Pinky Dawkins MA 11/14/2023 10:26 AM Signed [facility] [address] Chart Copy of medications dispensed to patient for home use November 14, 2023 Physician Initial: ME Morena Martinez Medication: Ozempic Qty: 4 boxes Directions: Inject 1 mg once a week Medications administered, dispensed and verified on the date indicated above Patient has been notified to product picker medication in Dr. Mas office. Pinky Dawkins MA Pt notified. Allergies As of Date: 11/14/2023 Noted Allergy Reaction LEVAQUIN (LEVOFLOXACIN) 07/19/2022 14 - Other: See Comments Comments: Notes body aches and joint pain when on medication AUGMENTIN (AMOXICILLIN-POT CLAVUL*12/31/2004 14 - Other: See [...] - Swelling Comments: ankle swelling Date Reviewed: 11/14/2023 Reviewed by: Catrachito Serna MA - Fully Assessed Reason for Visit: indigent meds [Other] Cmt: Ozempic Prescriptions as of 11/14/2023 - tiZANidine (ZANAFLEX) 4 mg tablet Take 1 tablet by mouth every 6 hours as needed. - gabapentin (NEURONTIN) 300 mg capsule Take 1 capsule by mouth daily at bedtime for 180 days. - acetaminophen-codeine (TYLENOL-CODEINE #3) 300-30 mg per tablet Take 1 tablet by mouth two times a day as needed for pain for up to 90 days. - furosemide (LASIX) 40 mg tablet Take 1 tablet by mouth once daily. - semaglutide (OZEMPIC) 1 mg/dose (4 mg/3 mL) pen Inject 1 mg subcutaneously one time a week. - atenolol (TENORMIN) 50 mg tablet Taking 50 mg once daily - warfarin (COUMADIN) 5 mg tablet 7.5 mg daily - lisinopril (ZESTRIL) 10 mg tablet Take 1 tablet by mouth once daily. - nystatin (MYCOSTATIN) cream Apply to affected area twice daily. Problem List As Of Date 11/14/2023 Noted Resolved Allergic Rhinitis, Cause Unspecified [J30.9] 12/31/2004 Diverticulosis of Colon (without Mention of Hem* Irritable Bowel Syndrome [K58.9] Migraine NOS/Intractable [G43.919] Other Disorders of Bladder [596] Diffuse Cystic Mastopathy [N60.19] Loc Osteoarth NOS-Site NEC [M19.90] Other and Unspecified Disc Disorder of Unspecif* Esophageal Reflux [K21.9] 04/15/2005 Embolism and thrombosis (HCC) [I74.9] 08/22/2007 Restless Legs Syndrome (RLS) [G25.81] 10/22/2007 Obstructive sleep apnea (adult) (pediatric) [G4*10/22/2007 08/31/2021 Essential Hypertension, Benign [I10] 11/19/2007 Other abnormal glucose [R73.09] 11/19/2007 07/09/2021 Dysmetabolic syndrome X [E88.810] 11/19/2007 07/09/2021 Palpitations [R00.2] 01/29/2009 03/09/2012 Routine Gynecological Examination [Z01.419] 02/11/2009 Class: Chronic Class 3 severe obesity due to excess calories w*02/11/2009 Abdominal pain, left lower quadrant [R10.32] 09/02/2009 03/09/2012 Diarrhea [R19.7] 09/02/2009 07/09/2021 Knee pain [M25.569] 04/27/2010 Status post total right knee replacement [Z96.6*07/25/2011 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] 10/13/2011 07/09/2021 Perirectal abscess [K61.1] 09/23/2015 07/09/2021 Infrapatellar bursitis of right knee [M70.51] 08/11/2016 07/09/2021 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] 08/11/2016 Hx of [facility] use of blood thinners [Z92.29] 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 [Z79.*03/18/2019 Chronic midline low back pain without sciatica *07/02/2019 Type 2 diabetes mellitus without complication, *12/30/2020 Leg swelling [M79.89] 08/06/2021 Former smoker [Z87.891] 08/06/2021 Bursitis of left shoulder [M75.52] 08/06/2021 08/31/2021 Tendinitis of left shoulder [M77.8] 08/31/2021 08/31/2021 Post-operative pain [G89.18] 09/16/2021 Acute pain of left shoulder [M25.512] 09/16/2021 Bursitis of left shoulder [M75.52] 09/16/2021 Tendinitis of left shoulder [M77.8] 09/16/2021 Inflammatory polyarthropathy (HCC) [M06.4] 12/12/2022 S/P shoulder surgery [Z98.890] 12/30/2022 COVID-19 [U07.1] 04/18/2023 Encounter Status:Closed by PINKY DAWKINS on 11/14/23 Normal [facility] Emergency Department Summary on 11-11-2023 Emergency Department Summary [facility] Medical Records Department [address] [place], [place] [address] [place] [address] Emergency Department Summary 11/11/23 MR#: [id number] Acct: [id number] Name: MORENA MARTINEZ Rep #: [id number] : 1965 58 From: Adriel Mac MD PCP: Dr. Milka Mas MD Status:PRE ER Location: ED HPI History of Present Illness Chief Complaint: Wound Narrative Narrative: 58-year-old female past medical history of chronic lymphedema, on Lasix, diabetes, presents with injury to her left lower extremity, along with redness that she has had over the last week. She states that approximately a week ago, she was taking down a bird feeder, and it fell out of her hands, striking her left lower extremity/anterior tibial area. While that has been healing, the other day, she took the Band-Aids off of the area and sustained some skin tears that are now draining clear fluid. There may be increased redness in these areas as well. She denies any fevers or chills, no nausea or vomiting, no other symptoms. [facility] Medical History s/p elbow Home Medications ???Medication ???Instructions ???Recorded ???Last Taken ???Type lisinopril 20 mg tablet 10 mg PO DAILY 08/07/13 02/21/18 05:00 History warfarin 7.5 mg tablet 7.5 mg PO DAILY 08/07/13 02/15/18 History acetaminophen 300 mg-codeine 60 mg 1 ea PO Q4H PRN PRN Pain 02/02/16 02/04/16 History tablet atenolol 25 mg tablet 50 mg PO DAILY 02/02/16 07/09/18 History gabapentin 100 mg capsule 300 mg PO QHS 02/02/16 02/04/16 History furosemide 20 mg tablet 40 mg PO DAILY PRN PRN Swelling 02/05/16 02/03/16 History tizanidine 4 mg tablet 4 mg PO QHS 02/14/18 Unknown History sitagliptin phosphate 25 mg tablet mg PO DAILY 05/18/22 Unknown History (Robert) cephalexin 500 mg capsule 500 mg PO Q6 #40 CAPSULES 11/11/23 Unknown Rx Allergy/AdvReac Type Severity Reaction Status Date / Time enoxaparin sodium (From Allergy Rash Verified 11/11/23 08:09 Lovenox) erythromycin lactobionate Allergy Rash Verified 11/11/23 08:09 (From Erythrocin) Latex, Natural Rubber Allergy Rash Verified 11/11/23 08:09 rofecoxib (From Vioxx) Allergy Swelling Verified 11/11/23 08:09 valdecoxib (From Bextra) Allergy Rash Verified 11/11/23 08:09 amoxicillin trihydrate (From AdvReac Other Verified 11/11/23 08:09 Augmentin) ciprofloxacin AdvReac Pain in Verified 11/11/23 08:09 joints diclofenac (From Voltaren) AdvReac Swelling Verified 11/11/23 08:09 levofloxacin (From Levaquin) AdvReac Pain in Verified 11/11/23 08:09 joints potassium clavulanate (From AdvReac Other Verified 11/11/23 08:09 Augmentin) Family History Sister Heart disease Brother Heart disease Father Heart disease Mother Breast cancer Surgical History h/o right CMC joint arthroplasty S/P arthroscopy of knee H/O: hysterectomy S/P hernia repair S/P knee replacement Social History Smoking Status: Former smoker ROS ROS ED ROS Narrative Constitutional: No fever, no chills. HEENT: No sore throat. No neck pain. No loss of vision. No rhinorrhea. Cardiovascular: No chest pain. No palpitations. Chronic bilateral pedal edema. Respiratory: No cough, no shortness of breath. Abdominal: No abdominal pain. No nausea. No vomiting. Genitourinary: No dysuria. No hematuria. Musculoskeletal: No myalgias. No arthralgias. Neurologic: No headaches. No dizziness. No lightheadedness. Skin: No rash. Positive redness left lower extremity anterior tibial area. To epidermal skin tears with clear fluid drainage. Psychiatric: No depression. No anxiety. EXAM Physical Exam Narrative Exam Narrative: Afebrile. Vital signs noted. Nontoxic-appearing. Regular rate and rhythm. Lungs clear to auscultation bilaterally. Abdomen soft nontender with normoactive bowel sounds. Positive bilateral lower extremity lymphedema. Positive erythema left lower extremity anterior tibial area, no lymphangitic streaking. Palpable dorsalis pedis pulse. 1 small epidermal skin tear with clear fluid drainage, no purulent drainage. Longer epidermal skin tear below area of previous abrasion. No fluctuance or drainable abscess. Const Vital Signs: 11/11/23 08:11 11/11/23 08:11 11/11/23 08:12 Temperature 96.7 F L 96.7 F L Temperature Source Temporal Temporal Pulse Rate 66 66 66 Respiratory Rate 14 14 14 Blood Pressure 148/90 H 148/90 H 148/90 H Blood Pressure Mean 109 109 109 Pulse Ox 100 100 100 Oxygen Delivery Method Room Air Room Air Room Air MDM MDM MDM Narrative Medical decision making narrative: I reviewed the patient's prior records and found them (more content not included)... Normal [facility] Comprehensive metabolic 2000 panelon 11-09-2023 Albumin [Mass/Vol] 3.9 g/dL Normal 3.9-4.9 [facility] Comment on above: Order Comment: Speci men Type: BLOOD SPECIMENOrdering Facility: [facility] Address: [address] [place] [address] Performed By: #### 2 4323-8, 12427-7 ####[facility] LABCLIA [id number] [place] [address] [place] ALP [Catalytic activity/Vol] 60 U/L Normal 34-123 [facility] Comment on above: Order Comment: Speci men Type: BLOOD SPECIMENOrdering Facility: [facility] Address: [address] [place] [address] Performed By: #### 2 4323-8, 99055-6 ####[facility] LABCLIA [id number] [place] [address] [place] ALT [Catalytic activity/Vol] 18 U/L Normal 7-38 [facility] Comment on above: Order Comment: Speci men Type: BLOOD SPECIMENOrdering Facility: [facility] Address: [address] [place] [address] Performed By: #### 2 4323-8, 33300-0 ####[facility] LABCLIA [id number] [place] [address] [place] Anion gap [Moles/Vol] 10 mmol/L Normal 8-15 [facility] Comment on above: Order Comment: Speci men Type: BLOOD SPECIMENOrdering Facility: [facility] Address: [address] [place] [address] Performed By: #### 2 4323-8, 16215-4 ####[facility] LABCLIA [id number] [place] [address] [place] AST [Catalytic activity/Vol] 20 U/L Normal 13-35 [facility] Comment on above: Order Comment: Speci men Type: BLOOD SPECIMENOrdering Facility: [facility] Address: [address] [place] [address] Performed By: #### 2 4323-8, 79379-9 ####[facility] LABCLIA [id number] [place] [address] [place] Bilirubin [Mass/Vol] 0.5 mg/dL Normal 0.2-1.3 [facility] Comment on above: Order Comment: Speci men Type: BLOOD SPECIMENOrdering Facility: [facility] Address: [address] [place] [address] Performed By: #### 2 4323-8, 69476-8 ####[facility] LABCLIA [id number] [place] [address] [place] Calcium [Mass/Vol] 9.4 mg/dL Normal 8.5-10.2 [facility] Comment on above: Order Comment: Speci men Type: BLOOD SPECIMENOrdering Facility: [facility] Address: [address] [place] [address] Performed By: #### 2 4323-8, 23934-8 ####[facility] LABIA [id number] [place] [address] [place] Chloride [Moles/Vol] 104 mmol/L Normal 98-107 [facility] Comment on above: Order Comment: Speci men Type: BLOOD SPECIMENOrdering Facility: [facility] Address: [address] [place] [address] Performed By: #### 2 4323-8, 03321-3 ####[facility] LABCLIA [id number] [place] [address] [place] CO2 [Moles/Vol] 27 mmol/L Normal 22-30 [facility] Comment on above: Order Comment: Speci men Type: BLOOD SPECIMENOrdering Facility: [facility] Address: [address] [place] [address] Performed By: #### 2 4323-8, 50593-9 ####[facility] LABIA [id number] [place] [address] [place] Creatinine [Mass/Vol] 0.72 mg/dL Normal 0.58-0.96 [facility] Comment on above: Order Comment: Speci men Type: BLOOD SPECIMENOrdering Facility: [facility] Address: [address] [place] [address] Performed By: #### 2 4323-8, 35848-6 ####[facility] LABIA [id number] [place] [address] [place] Creatinine and Glomerular filtration rate.predicted panel (S/P/Bld) 96 mL/min/1.73m??? Normal >=60 [facility] Comment on above: Order Comment: Speci men Type: BLOOD SPECIMENOrdering Facility: [facility] Address: [address] [place] [address] Result Comment: Akua mated Glomerular Filtration Rate (eGFR) is calculated using the 2020 CKD-EPI creatinine equation. This equation utilizes serum creatinine, sex, and age as parameters. The creatinine assay has traceable calibration to isotope dilution-mass spectrometry. Refer to KDIGO guidelines for clinical interpretation. In patients with unstable renal function, e.g. those with acute kidney injury, the eGFR may not accurately reflect actual GFR. Performed By: #### 2 4323-8, 12733-4 ####[facility] LABIA [id number] [place] [address] [place] Glucose [Mass/Vol] 118 mg/dL High 74-99 [facility] Comment on above: Order Comment: Mercy vázquez Type: BLOOD SPECIMENOrdering Facility: [facility] Address: [address] [place] [address] Result Comment: The [place] Diabetes Association (ADA) provides guidance for cutoff values for fasting glucose and random glucose. The ADA defines fasting as no caloric intake for at least 8 hours. Fasting plasma glucose results between 100 to 125 [...] Standards of Medical Care in Diabetes 2016, [place] Diabetes Association. Diabetes Care. 2016.39(Suppl 1). Performed By: #### 2 4323-8, 47149-5 ####[facility] LABCLIA [id number] [place] [address] [place] Potassium [Moles/Vol] 4.4 mmol/L Normal 3.7-5.1 [facility] Comment on above: Order Comment: Mercy vázquez Type: BLOOD SPECIMENOrdering Facility: [facility] Address: [address] [place] [address] Performed By: #### 2 4323-8, 87509-4 ####[facility] LABCLIA [id number] [place] [address] [place] Protein [Mass/Vol] 6.7 g/dL Normal 6.3-8.0 [facility] Comment on above: Order Comment: Mercy vázquez Type: BLOOD SPECIMENOrdering Facility: [facility] Address: [address] [place] [address] Performed By: #### 2 4323-8, 42331-4 ####[facility] LABCLIA [id number] [place] [id number] [place] Sodium [Moles/Vol] 141 mmol/L Normal 136-144 [facility] Comment on above: Order Comment: Speci men Type: BLOOD SPECIMENOrdering Facility: [facility] Address: [address] [place] [address] Performed By: #### 2 4323-8, 12701-8 ####[facility] LABCLIA [id number] [place] [address] [place] Urea nitrogen [Mass/Vol] 18 mg/dL Normal 7-21 [facility] Comment on above: Order Comment: Speci men Type: BLOOD SPECIMENOrdering Facility: [facility] Address: [address] [place] [address] Performed By: #### 2 4323-8, 38998-9 ####[facility] LABCLIA [id number] [place] [address] [place] HbA1c (Bld)on 11-09-2023 Average glucose Estimated from glycated hemoglobin (Bld) [Mass/Vol] 117 mg/dL Normal [facility] Comment on above: Order Comment: Speci men Type: BLOOD SPECIMENOrdering Facility: [facility] Address: [address] [place] [address] Result Comment: eAG: (Estimated average glucose) is a calculated value from HgbA1c and is public service representative of the average blood glucose level in the last 2-3 month period. Performed By: #### 5 5454-3 ####[facility] LABCLIA [id number] [place] [address] [place] HbA1c (Bld) [Mass fraction] 5.7 % High 4.3-5.6 [facility] Comment on above: Order Comment: Speci men Type: BLOOD SPECIMENOrdering Facility: [facility] Address: [address] [place] [address] Result Comment: Amer [place] Diabetes Association guidelines indicate that patients with HgbA1c in the range 5.7-6.4% are at increased risk for development of diabetes, and intervention by lifestyle modification may be beneficial. HgbA1c greater or equal to 6.5% is considered diagnostic of diabetes. Performed By: #### 5 5454-3 ####[facility] LABCLIA [id number] [place] [address] [place] Lipid 1996 panelon 4 Cholesterol [Mass/Vol] 162 mg/dL Normal <200 [facility] Comment on above: Order Comment: Speci men Type: BLOOD SPECIMENOrdering Facility: [facility] Address: [address] [place] [address] Result Comment: <200 mg/dL, Desirable 200-239 mg/dL, Borderline high >239 mg/dL, High Performed By: #### 2 4323-8, 21529-6 ####[facility] LABCLIA [id number] [address] [place] Cholesterol in HDL [Mass/Vol] 50 mg/dL Normal >39 [facility] Comment on above: Order Comment: Speci men Type: BLOOD SPECIMENOrdering Facility: [facility] Address: [address] [place] [address] Result Comment: 40-5 9 mg/dL, Acceptable >59 mg/dL, High: Negative risk factor for coronary heart disease <40 mg/dL, Low: Positive risk factor for coronary heart disease Performed By: #### 2 4323-8, 65002-3 ####[facility] LABCLIA [id number] [address] [place] Cholesterol in LDL [Mass/Vol] 91 mg/dL Normal <100 [facility] Comment on above: Order Comment: Speci men Type: BLOOD SPECIMENOrdering Facility: [facility] Address: [address] [place] [address] Result Comment: <100 mg/dL, Optimal 100-129 mg/dL, Near optimal/above optimal 130-159 mg/dL, Borderline high 160-189 mg/dL, High >189 mg/dL, Very high Secondary prevention optimal LDL Cholesterol levels are recommended to be < 70 mg/dL Performed By: #### 2 4323-8, 47542-8 ####[facility] LABCLIA [id number] Cholesterol in LDL/Cholesterol in HDL [Mass ratio] 1.82 {ratio} Normal <2.54 [facility] Comment on above: Order Comment: Mercy vázquez Type: BLOOD SPECIMENOrdering Facility: [facility] Address: [address] [place] [address] Result Comment: Laura sheffield: 1. National Cholesterol Education Program ATP III Guideline At-A-Glance Quick Desk Reference: National Heart, Lung, and Blood [place]. National Institutes of Health. 2001: NIH Publication No. 01-3305. 2. An International Atherosclerosis Society position paper: global recommendations for the management of dyslipidemia: executive summary, Atherosclerosis. 2014: 232(2):410-413. Performed By: #### 2 4323-8, 87750-2 ####[facility] LABCLIA [id number] [address] [place] Cholesterol in VLDL [Mass/Vol] 21 mg/dL Normal <30 [facility] Comment on above: Order Comment: Mercy vázquez Type: BLOOD SPECIMENOrdering Facility: [facility] Address: [address] [place] [address] Performed By: #### 2 4323-8, 25358-8 ####[facility] LABCLIA [id number] [address] [place] Cholesterol non HDL [Mass/Vol] 112 mg/dL Normal <130 [facility] Comment on above: Order Comment: Mercy vázquez Type: BLOOD SPECIMENOrdering Facility: [facility] Address: [address] [place] [address] Result Comment: <130 mg/dL, Optimal 130-159 mg/dL, Near optimal/above optimal 160-189 mg/dL, Borderline high 190-219 mg/dL, High >219 mg/dL, Very high Secondary prevention optimal non HDL Cholesterol levels are recommended to be <100 mg/dL Performed By: #### 2 4323-8, 70121-9 ####[facility] LABCLIA [id number] [address] [place] Cholesterol.total /Cholesterol in HDL [Mass ratio] 3.24 {ratio} Normal <5.10 [facility] Comment on above: Order Comment: Speci men Type: BLOOD SPECIMENOrdering Facility: [facility] Address: [address] [place] [address] Performed By: #### 2 4323-8, 69486-8 ####[facility] LABCLIA [id number] [address] [place] FASTING TIME 12 hrs Normal [facility] Comment on above: Order Comment: Speci men Type: BLOOD SPECIMENOrdering Facility: [facility] Address: [address] [place] [address] Performed By: #### 2 4323-8, 83289-9 ####[facility] LABCLIA [id number] [address] [place] Triglyceride [Mass/Vol] 106 mg/dL Normal <150 [facility] Comment on above: Order Comment: Speci men Type: BLOOD SPECIMENOrdering Facility: [facility] Address: [address] [place] [address] Result Comment: <150 mg/dL, Normal 150-199 mg/dL, Borderline high 200-499 mg/dL, High >499 mg/dL, Very high Performed By: #### 2 4323-8, 14650-7 ####[facility] LABCLIA [id number] [address] [place] Carlos 11-06-2023 CNPN Telephone (PHAMTE) MORENA MARTINEZ ([id number]) 1965 F Date Time Provider Department 11/06/23 DORI PEPPER During your visit today, we recorded the following information about you: Dori Pepper [facility] 11/06/2023 4:38 PM Signed [facility] Ambulatory Pharmacy Anticoagulation Clinic Anticoagulation Episode Summary Anticoagulation Care Providers Provider Role Specialty Phone number Milka Mas MD Family Medicine [phone] Morena Martinez is a 58 year old year old female patient being evaluated today for a Telemanagement visit. Patient is currently on the following anticoagulant(s) Warfarin. Labs PT INR (no units) Date Value 07/28/2022 2.7 (pt reported) 03/20/2022 2.7 01/23/2022 2.9 INR Home CoaguChek (no units) Date Value 11/06/2023 2.4 10/23/2023 2.8 10/16/2023 4.1 Hemoglobin (g/dL) Date Value 04/09/2021 15.2 Hematocrit (%) Date Value 04/09/2021 46.7 Platelet Count (k/uL) Date Value 04/09/2021 299 Creatinine (mg/dL) Date Value 08/09/2023 0.73 04/14/2023 0.77 01/13/2023 0.77 03/23/2021 0.60 12/07/2020 0.62 04/01/2020 0.70 Bilirubin, Total (mg/dL) Date Value 08/09/2023 0.5 12/07/2020 0.6 ALT (U/L) Date Value 08/09/2023 22 12/07/2020 33 AST (U/L) Date Value 08/09/2023 21 12/07/2020 35 Estimated Creatinine Clearance: 129.8 mL/min (based on SCr of 0.73 mg/dL). 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 Patient denies need for refills. Dori Pepper [facility] Clinical Pharmacist, Pharmacy Anticoagulation Clinic Pharmacy Anticoagulation Clinic Pager: [phone]. 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 - gabapentin (NEURONTIN) 300 mg capsule Take 1 capsule by mouth daily at bedtime for 180 days. - acetaminophen-codeine (TYLENOL-CODEINE #3) 300-30 mg per tablet Take 1 tablet by mouth two times a day as needed for pain for up to 90 days. - furosemide (LASIX) 40 mg tablet Take 1 tablet by mouth once daily. - semaglutide (OZEMPIC) 1 mg/dose (4 mg/3 mL) pen Inject 1 mg subcutaneously one time a week. - atenolol (TENORMIN) 50 mg tablet Taking 50 mg once daily - warfarin (COUMADIN) 5 mg tablet 7.5 mg daily - lisinopril (ZESTRIL) 10 mg tablet Take 1 tablet by mouth once daily. - nystatin (MYCOSTATIN) cream Apply to affected area twice daily. 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 Normal [facility] 10-23-2023 CNPN Telephone (PHAMTE) MORENA MARTINEZ ([id number]) 1965 F Date Time Provider Department 10/23/23 MANAS RICHTER During your visit today, we recorded the following information about you: Manas Richter RPh 10/30/2023 4:37 PM Signed Patient was due to test INR today. Will continue to monitor for results. Will follow up in one week if no results received. Dori Pepper RPh 11/06/2023 2:45 PM Signed Morena Martinez was sent a NOBOT msg and reminded to test INR today or as soon as possible. Dori Pepper PharmD Pharmacy Anticoagulation Clinic Allergies As of Date: 10/23/2023 Noted Allergy Reaction LEVAQUIN (LEVOFLOXACIN) 07/19/2022 14 - Other: See Comments Comments: Notes body aches and joint pain when on medication AUGMENTIN (AMOXICILLIN-POT CLAVUL*12/31/2004 14 - Other: See [...] - Swelling Comments: ankle swelling Date Reviewed: 09/07/2023 Reviewed by: Savana Farrar MA - Fully Assessed Reason for Visit: Anticoagulation Telephone Fu [148] Cmt: Home INR Result Prescriptions as of 11/06/2023 - gabapentin (NEURONTIN) 300 mg capsule Take 1 capsule by mouth daily at bedtime for 180 days. - acetaminophen-codeine (TYLENOL-CODEINE #3) 300-30 mg per tablet Take 1 tablet by mouth two times a day as needed for pain for up to 90 days. - furosemide (LASIX) 40 mg tablet Take 1 tablet by mouth once daily. - tiZANidine (ZANAFLEX) 4 mg tablet Take 1 tablet by mouth every 6 hours as needed. - semaglutide (OZEMPIC) 1 mg/dose (4 mg/3 mL) pen Inject 1 mg subcutaneously one time a week. - atenolol (TENORMIN) 50 mg tablet Taking 50 mg once daily - warfarin (COUMADIN) 5 mg tablet 7.5 mg daily - lisinopril (ZESTRIL) 10 mg tablet Take 1 tablet by mouth once daily. - nystatin (MYCOSTATIN) cream Apply to affected area twice daily. - furosemide (LASIX) 20 mg tablet Take 1 tablet by mouth once daily. 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] 08/22/2007 Restless Legs Syndrome (RLS) [G25.81] 10/22/2007 Obstructive sleep apnea (adult) (pediatric) [G4*10/22/2007 08/31/2021 Essential Hypertension, Benign [I10] 11/19/2007 Other abnormal glucose [R73.09] 11/19/2007 07/09/2021 Dysmetabolic syndrome X [E88.810] 11/19/2007 07/09/2021 Palpitations [R00.2] 01/29/2009 03/09/2012 Routine Gynecological Examination [Z01.419] 02/11/2009 Class: Chronic Class 3 severe obesity due to excess calories w*02/11/2009 Abdominal pain, left lower quadrant [R10.32] 09/02/2009 03/09/2012 Diarrhea [R19.7] 09/02/2009 07/09/2021 Knee pain [M25.569] 04/27/2010 Status post total right knee replacement [Z96.6*07/25/2011 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] 10/13/2011 07/09/2021 Perirectal abscess [K61.1] 09/23/2015 07/09/2021 Infrapatellar bursitis of right knee [M70.51] 08/11/2016 07/09/2021 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] 08/11/2016 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] 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 [Z79.*03/18/2019 Chronic midline low back pain without sciatica *07/02/2019 Type 2 diabetes mellitus without complication, *12/30/2020 Leg swelling [M79.89] 08/06/2021 Former smoker [Z87.891] 08/06/2021 Bursitis of left shoulder [M75.52] 08/06/2021 08/31/2021 Tendinitis of left shoulder [M77.8] 08/31/2021 08/31/2021 Post-operative pain [G89.18] 09/16/2021 Acute pain of left shoulder [M25.512] 09/16/2021 Bursitis of left shoulder [M75.52] 09/16/2021 Tendinitis of left shoulder [M77.8] 09/16/2021 Inflammatory 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 Nasopharyngeal Culture Trimeth/Sulfa (Otitis), Ciprofloxacin, Ofloxacin and Erythromycin are alternate choices. Moraxella nonliquefaciens Amount Growth Growth Beta Lactamase-Reportable Positive Normal [facility] Comment on above: Performed By: #### M 100.2000, M100.2500 #### [facility] Laboratory [address] [place], [place], [address] Gram Stainon 06-29-2023 GS Gram Stain Rare White Blood Cells No organisms seen Normal [facility] Comment on above: Performed By: #### M 100.2000, M100.2500 #### [facility] [address] [place], [address] Gram stain for investigation of transfusion reactionOrdered By: Suraj Hooks on 06-28-2023 Microscopic observation Gram stain Nom (Unsp spec) [facility] XR Shoulder - left 3 Viewson 05-18-2023 IMPRESSION: No acute fracture or dislocation. Subcortical cystic change and enthesopathy of the greater tuberosity, query rotator cuff pathology. Thermospray Operator: SHRUTHI Transcribe Date/Time: Benji 18 2024 9:47A Dictated by : FLORI JARRETT MD This examination was interpreted and the report reviewed and electronically signed by: FLORI JARRETT MD on May 18 2023 9:52AM [facility] * * *Final Report* * * DATE OF EXAM: May 17 2023 11:25AM LUTHER 5252 - XR SHLDR >/=3V AP/LEI AP/OTHR LT / PROCEDURE REASON: Z98.890-S/P arthroscopy of left shoulder * * * * Physician Interpretation * * * * EXAM(s): XR SHLDR >/=3V AP/LEI AP/OTHR LT EXAM DATE/TIME: 05/17/2023 11:25 AM HISTORY: 58 years old Clinical information: S/P arthroscopy of left shoulder F/U ARTHROSCOPY OF LEFT SHOULDER TECHNIQUE: Images: XR SHLDR >/=3V AP/LEI AP/OTHR LT Comparison: Left shoulder radiograph 07/29/2022 RESULT: Findings: Bone density appears well-preserved. No fractures or dislocations are seen. Glenohumeral joint space is maintained without degenerative change. Acromioclavicular joint is maintained with minimal spurring superiorly. No subacromial osteophyte. The humeral head is not high riding. Subcortical cystic change and minimal enthesopathy at the greater tuberosity. [facility] Provider, [facility] - 05/18/2023 * * *Final Report* * * DATE OF EXAM: May 17 2023 11:25AM LUTHER 5252 - XR SHLDR >/=3V AP/LEI AP/OTHR LT / PROCEDURE REASON: Z98.890-S/P arthroscopy of left shoulder * * * * Physician Interpretation * * * * EXAM(s): XR SHLDR >/=3V AP/LEI AP/OTHR LT EXAM DATE/TIME: 05/17/2023 11:25 AM HISTORY: 58 years old Clinical information: S/P arthroscopy of left shoulder F/U ARTHROSCOPY OF LEFT SHOULDER TECHNIQUE: Images: XR SHLDR >/=3V AP/LEI AP/OTHR LT Comparison: Left shoulder radiograph 07/29/2022 RESULT: Findings: Bone density appears well-preserved. No fractures or dislocations are seen. Glenohumeral joint space is maintained without degenerative change. Acromioclavicular joint is maintained with minimal spurring superiorly. No subacromial osteophyte. The humeral head is not high riding. Subcortical cystic change and minimal enthesopathy at the greater tuberosity. IMPRESSION IMPRESSION: No acute fracture or dislocation. Subcortical cystic change and enthesopathy of the greater tuberosity, query rotator cuff pathology. Thermospray Operator: PSCB Transcribe Date/Time: May 18 2023 9:47A Dictated by : FLORI JARRETT MD This examination was interpreted and the report reviewed and electronically signed by: FLORI JARRETT MD on May 18 2023 9:52AM EST [facility] XR Shoulder - left 3 ViewsOr dered By: [facility] Provider on 05-18-2023 [facility] XR SHLDR >/=3V AP/LEI AP/OTH R LTon 05-17-2023 XR SHLDR >/=3V AP/LEI AP/OTHR LT * * *Final Report* * * DATE OF EXAM: May 17 2023 11:25AM LUTHER 5252 - XR SHLDR >/=3V AP/LEI AP/OTHR LT / PROCEDURE REASON: Z98.890-S/P arthroscopy of left shoulder * * * * Physician Interpretation * * * * EXAM(s): XR SHLDR >/=3V AP/LEI AP/OTHR LT EXAM DATE/TIME: 05/17/2023 11:25 AM HISTORY: 58 years old Clinical information: S/P arthroscopy of left shoulder F/U ARTHROSCOPY OF LEFT SHOULDER TECHNIQUE: Images: XR SHLDR >/=3V AP/LEI AP/OTHR LT Comparison: Left shoulder radiograph 07/29/2022 RESULT: Findings: Bone density appears well-preserved. No fractures or dislocations are seen. Glenohumeral joint space is maintained without degenerative change. Acromioclavicular joint is maintained with minimal spurring superiorly. No subacromial osteophyte. The humeral head is not high riding. Subcortical cystic change and minimal enthesopathy at the greater tuberosity. IMPRESSION: No acute fracture or dislocation. Subcortical cystic change and enthesopathy of the greater tuberosity, query rotator cuff pathology. Thermospray Operator: SHRUTHI Transcribe Date/Time: May 18 2023 9:47A Dictated by : FLORI JARRETT MD This examination was interpreted and the report reviewed and electronically signed by: FLORI JARRETT MD on May 18 2023 9:52AM EST [id number] Normal [facility] XR Shoulder - left 3 Viewson 05-17-2023 Radiology Study observation (narrative) [facility] XR Chest PA and Lateralon IMPRESSION: Stable exam. Thermospray Operator: SHRUTHI Transcribe Date/Time: Apr 17 2023 1:39P Dictated by : FOZIA GRIGGS MD This examination was interpreted and the report reviewed and electronically signed by: FOZIA GRIGGS MD on Apr 17 2023 1:41PM EST DIVISION OF RADIOLOGY * * *Final Report* * * DATE OF EXAM: Apr 17 2023 1:34PM WOX 5291 - XR CHEST 2V FRONTAL/LAT / PROCEDURE REASON: multiple diagnoses * * * * Physician Interpretation * * * * EXAMINATION: CHEST RADIOGRAPH (2 VIEW FRONTAL & LATERAL) CLINICAL HISTORY: Acute cough Fever, unspecified fever cause MQ: XC2_6 EXAM DATE/TIME: 04/17/2023 1:34 PM COMPARISON: Chest x-ray on 06/25/2018 RESULT: Lines, tubes, and devices: None. Lungs and pleura: Stable small vertical elongated opacity overlying the right lower lung. No new consolidation. No lung mass. No pleural effusion. No pneumothorax. Cardiomediastinal silhouette: Normal cardiomediastinal silhouette. Bones and soft tissues: The spine shows degenerative changes. DIVISION OF RADIOLOGY Provider, [facility] - 04/17/2023 * * *Final Report* * * DATE OF EXAM: Apr 17 2023 1:34PM WOX 5291 - XR CHEST 2V FRONTAL/LAT / PROCEDURE REASON: multiple diagnoses * * * * Physician Interpretation * * * * EXAMINATION: CHEST RADIOGRAPH (2 VIEW FRONTAL & LATERAL) CLINICAL HISTORY: Acute cough Fever, unspecified fever cause MQ: XC2_6 EXAM DATE/TIME: 04/17/2023 1:34 PM COMPARISON: Chest x-ray on 06/25/2018 RESULT: Lines, tubes, and devices: None. Lungs and pleura: Stable small vertical elongated opacity overlying the right lower lung. No new consolidation. No lung mass. No pleural effusion. No pneumothorax. Cardiomediastinal silhouette: Normal cardiomediastinal silhouette. Bones and soft tissues: The spine shows degenerative changes. IMPRESSION IMPRESSION: Stable exam. Thermospray Operator: PSCB Transcribe Date/Time: Apr 17 2023 1:39P Dictated by : FOZIA GRIGGS MD This examination was interpreted and the report reviewed and electronically signed by: FOZIA GRIGGS MD on Apr 17 2023 1:41PM EST [facility] Radiology Study observation (narrative) [facility] XR Chest PA and LateralOrder ed By: [facility] Provider on 04-17-2023 [facility] UA DIP, URINE (POC)on 2022 BILIRUBIN UA (POCT) Negative Negative [facility] CLARITY UA (POCT) Clear [facility] COLOR UA (POCT) Yellow [facility] GLUCOSE UA (POCT) Negative Negative mg/dL [facility] Hemoglobin Ql (U) Small Abnormal Negative [facility] KETONE UA (POCT) Negative Negative mg/dL [facility] LEUKOCYTES UA (POCT) Trace Abnormal Negative [facility] NITRITE UA (POCT) Negative Negative [facility] PH UA (POCT) 6.0 4.5 - 8.0 [facility] Protein Ql (U) Negative Negative mg/dL [facility] SPECIFIC GRAVITY UA (POCT) <=1.005 Abnormal 1.005 - 1.030 [facility] UROBILINOGEN UA (POCT) 0.2 E.U./dL Normal E.U./dL [facility] ANES POSTPROC EVALon 023 ANES POSTPROC EVAL HNO ID: [id number] Author: Charanjit Salinas DO Service: Anesthesiology Author Type: Physician Type: Anesthesia Postprocedure Evaluation Filed: 12/29/2022 12:56 PM Note Text: POST ANESTHESIA EVALUATION NOTE : 1965 Procedure Summary Date: 12/29/22 Room / Location: [place]05 [place] Anesthesia Start: 1001 Anesthesia Stop: 1200 Procedure: ARTHROSCOPY SHOULDER W/ DEBRIDEMENT EXTENSIVE 3 OR MORE DISCRETE STRUCTURES (Left: Shoulder) Diagnosis: Biceps tendinitis of left upper extremity Acute pain of left shoulder Bursitis of left shoulder Shoulder impingement (Biceps tendinitis of left upper extremity [M75.22]) (Acute pain of left shoulder [M25.512]) (Bursitis of left shoulder [M75.52]) (Shoulder impingement [M25.819]) Surgeons: Lisette Banks DO Responsible Provider: Charanjit Salinas DO Anesthesia Type: general ASA Status: 3 Anesthesia Type: general Airway Type: ETT Last Vitals Vitals Value Taken Time BP 148/64 12/29/22 1246 Temp 36.8 ?C (98.2 ?F) 12/29/22 1200 Pulse 74 12/29/22 1255 Resp 22 12/29/22 1255 SpO2 94 % 12/29/22 1255 Vitals shown include unvalidated device data. Post Anesthesia Patient Status Patient Evaluation: PACU. PACU/ICU Patient Condition: stable. Anticipated Disposition: phase 2 then home. Neurological Status: aware and responsive. Pulmonary Status: breathing comfortably on supplemental oxygen Airway Control: returned to baseline unsupported. Cardiovascular Status: stable. Pain Management: clinically adequate Postoperative Hydration: acceptable. Intraoperative Events: no significant anesthesia events Post Operative Nausea/Vomiting Status: no significant post operative nausea or vomiting Recommendation: continue current plan of care and further care per PACU/ICU/floor team. Anesthesia Observations No Documentation SIGNATURE: Charanjit Salinas DO PATIENT NAME: Morena Martinez DATE: December 29, 2022 TIME: 12:56 PM CSN: [id number] [facility] ANES PRE-OPon 12-29-2022 ANES PRE-OP HNO ID: [id number] Author: Charanjit Salinas DO Service: Anesthesiology Author Type: Physician Type: Anesthesia Preprocedure Evaluation Filed: 12/29/2022 8:38 AM Note Text: ANESTHESIOLOGY DAY OF SURGERY NOTE : 1965 Procedure Information Date/Time: 12/29/22 0947 Procedure: ARTHROSCOPY SHOULDER W/ DEBRIDEMENT EXTENSIVE 3 OR MORE DISCRETE STRUCTURES (Left: Shoulder) [place]: [place] Surgeons: Lisette Banks DO Estimated body mass index is 54.03 kg/m? as calculated from the following: Height as of 12/05/22: 170.2 cm (5' 7). Weight as of 12/12/22: 156.5 kg (345 lb). Most recent hematocrit and potassium results: Hematocrit 46.7 04/09/2021 Potassium 4.6 06/27/2022 Relevant Problems CARDIO (+) Embolism and thrombosis (HCC) (+) Essential hypertension, benign (+) Migraine, unspecified, with intractable migraine, so stated, without mention of status migrainosus ENDO (+) Type 2 diabetes mellitus without complication, without long-term current use of insulin (HCC) GI (+) Esophageal reflux NEURO-PSYCH (+) Migraine, unspecified, with intractable migraine, so stated, without mention of status migrainosus Other (+) Inflammatory polyarthropathy (HCC) I - PHYSICAL EVALUATION AIRWAY Patient intubated: No. Tracheostomy tube not present Mallampati: II. TM distance: >3 FB. Neck ROM: full ROM without neurological symptoms. Mouth opening: adequate. Short neck: no. Thick neck: no DENTAL Dentures, upper: complete. Dentures, lower: complete. Additional exam findings: yes. CARDIOVASCULAR Rhythm: regular Rate: normal PULMONARY Breath sounds clear to auscultation. II - ANESTHESIA PLAN ASA Score: 3 Anesthetic Plan: general Airway type: ETT NPO Status: adequate Beta Yusuf Monitoring Plan Monitoring plan: standard ASA. Post Procedure Analgesic Plan Postoperative analgesic plan: parenteral or oral opioids, multimodal analgesia, per surgical service and peripheral nerve block. Informed Consent Anesthetic risks, benefits, alternatives, personnel and consent discussed: yes. Patient / Responsible Libertarian agrees to proceed: yes Patient / Surrogate agrees to blood products: Yes DNR status not reviewed with patient and/or family prior to surgery. Significant changes in the patient condition since the History and Physical, not otherwise documented in primary service progress note: no. Potential Anesthesia issues that may suggest increased risk of complications or contraindication to planned procedure: none. Discussed the possibility of lip / dental damage: yes Vitals Value Taken Time BP 171/72 12/29/22826 Pulse 58 12/29/22826 Resp 16 12/29/22826 Temp 37.2 ?C (99 ?F) 12/29/22826 SpO2 100 % 12/29/22826 Facility-Administered Medications as of 12/29/2022 Medication Dose Route Frequency - lidocaine (PF) 10 mg/mL (1 %) 1-2 mg injection (XYLOCAINE) 0.1-0.2 mL INTRADERMAL PRN - lactated ringers iv infusion 5-30 mL/hr INTRAVENOUS CONTINUOUS - NaCl 0.9% iv flush bag 20 mL INTRAVENOUS PRN - ceFAZolin 3 g in D5W 100 mL (ANCEF) 3 g INTRAVENOUS Pre-Op Once - [COMPLETED] acetaminophen 1,000 mg tab(s) (TYLENOL) 1,000 mg ORAL Pre-Op Once - midazolam (PF) 2 mg injection (VERSED) 2 mg INTRAVENOUS Pre-Op Once Outpatient Medications as of 12/29/2022 Medication Sig - tiZANidine (ZANAFLEX) 4 mg tablet Take 1 tablet by mouth every 6 hours as needed. - atenolol (TENORMIN) 50 mg tablet Take 50 mg in the AM, 25 mg in the PM - acetaminophen-codeine (TYLENOL-CODEINE #3) 300-30 mg per tablet Take 1 tablet by mouth twice daily as needed for pain for up to 90 days. - SITagliptin phosphate (JANUVIA) 100 mg tablet Take 1 tablet by mouth once daily. - gabapentin (NEURONTIN) 300 mg capsule Take 1 capsule by mouth daily at bedtime for 180 days. - lisinopril (ZESTRIL, PRINIVIL) 10 mg tablet Take 1 tablet by mouth once daily. - semaglutide (OZEMPIC) 0.25 mg or 0.5 mg (2 mg/3 mL) pen Inject 0.25 mg subcutaneously one time a week for 28 days, THEN 0.5 mg one time a week. - warfarin (COUMADIN) 5 mg tablet 7.5 mg daily - nystatin (MYCOSTATIN) cream Apply to affected area twice daily. - furosemide (LASIX) 40 mg tablet Take 1 tablet by mouth once daily. (Patient taking differently: Take 40 mg by mouth every other day.) - furosemide (LASIX) 20 mg tablet Take 1 tablet by mouth once daily. NEEDED I have interviewed and examined the patient. I have reviewed the medical record and/or the pre-anesthesia evaluation, pertinent labs, and test results. This contains updated information obtained within 48 hours of Surgery/Procedure. SIGNATURE: Charanjit Salinas DO PATIENT NAME: Morena Martinez DATE: December 29, 2022 TIME: 8:37 AM CSN: [id number] [facility] NURSING PROGon 12-29-2022 NURSING PROG HNO ID: [id number] Author: Nba Tillman RN Service: Nursing Author Type: Registered Nurse Type: Nursing Progress Note Filed: 12/29/2022 10:10 AM Note Text: Dr. salinas at bedside for Left interscalen nerve block. RN at bedside, pt monitored throughout, BP 180/80 Pulse (!) 59 Temp 37.2 ?C (99 ?F) (Temporal Artery) Resp 21 SpO2 99% .Pt tolerated procedure without difficulty. [facility] OPERATIVE NOon 12-29-2022 OPERATIVE NO HNO ID: [id number] Author: Lisette Banks DO Service: Orthopaedic Surgery Author Type: Physician Type: Operative Report Filed: 01/13/2023 12:01 PM Note Text: OPERATIVE/PROCEDURE REPORT LOG ID: [id number] SURGERY/PROCEDURE DATE: 12/29/2022 INCISION/PROCEDURE START TIME: 10:44 AM INCISION CLOSE/PROCEDURE END TIME: 11:48 AM SURGEON(S)/PROCEDURALIST(S) AND METAL CUT OFF SAW OPERATOR(S): Surgeon(s) and Role: * Lisette Banks DO - Primary Nurse Practitioner: Gilbert Negron APRN.REFINERY OPERATOR HELPER CRUDE UNIT Physician Paper Cutter: Silva Parson PA-C Primary research lab assistant liana SURGERY/PROCEDURE(S): Left shoulder arthroscopy, removal of hardware, debridement intraarticular, subacromial decompression/acromioplasty ANESTHESIA: General SURGERY/PROCEDURE DETAILS: Preop note Patient is a 57-year-old female with continued left shoulder pain after previous left shoulder arthroscopy. Patient was placed on Levaquin and went to grab something she felt a burning pulling sensation in her biceps and has had pain with her shoulder and biceps ever since. Risks benefits and alternatives surgery discussed with patient. Patient has received intra-articular blocking of her biceps which helped her for a slight bit but not from a lengthy period of time. Risk include but not limited to blood loss blood clot, infection, neurovascular injury, failure procedure, loss of life and loss of limb. Patient is aware would like to proceed with left shoulder arthroscopy repair as indicated. Operative note Patient seen and examined preoperatively. Left shoulder was marked. Patient was brought to the operating room placed supine on the operating table. [place], anesthesia, antibiotics were ministered. Note that preoperatively I did recheck her to see if she had any calf pain or she had a negative Homans' sign bilaterally. Patient is stopped her Coumadin her preop INR was around 1.5. She was told to restart her Coumadin tomorrow. She was also told she has any symptoms or complaints to go emergently to the ER. I did discuss this with her as well postoperatively. Patient was placed in beachchair positioning intermediate through we did recheck her blood pressure which was stable throughout. We then prepped draped the left shoulder in usual standard technique. We marked out our portals timeout was performed. We insufflated the glenohumeral humeral joint for the posterior aspect and had good return. Timeout was performed. We then began our diagnostic arthroscopy. We used an 11 blade to create a posterior portal and a diagnostic arthroscopy. Grade 3 fibrillated changes some thinning of the humerus as well as the glenoid. We then created an anterior portal and direct visualization there was the site of the previous biceps anchor there was no biceps anchor and there she had a inflammation intra-articular that we did debride back with a combination of a shaver and an ablator wand. The rotator cuff was intact on the articular side. We then moved to the second to the subacromial space to create a lateral portal under direct visualization we then resected the hyperemic and thickened bursa that she had recreated throughout her subacromial space. We also used an ablator wand the acromion to debride this as well. After able to better visualize this we were able to move the scope more anteriorly and visualize is a loose anchor in the anterior aspect of her subacromial space and this was removed with a combination of a [place] and a shaver. The rotator cuff was intact and stable to probing on the bursal side. We irrigated both the shoulder and the subacromial acromial space with copious amounts of sterile saline portals were closed sterile dressings were applied sling was applied to the left upper extremity. Patient Toller procedure well no complications transfer recovery room in stable condition. Postoperative note Weight-bear as tolerated left upper extremity May DC sling whenever she feels ready to Call increased pain numbness ting over the steroids Discussed with in detail what we found as well as restarting her Coumadin and range of motion Comment: Please note this report has been produced using speech recognition software and may contain errors related to that system including errors in grammar, punctuation, and spelling, as well as words and phrases that may be inappropriate. If there are any questions or concerns please feel free to contact the dictating provider for clarification. PRE-OP/PRE-PROCEDURE DIAGNOSIS: right shoulder impingment syndrome, torn biceps from previous repair, synovitis POST-OP/POST-PROCEDURE DIAGNOSIS: Same as Preop ESTIMATED BLOOD LOSS: 0 ml SPECIMENS: None IMPLANTABLE DEVICES: NONE DRAINS: None COMPLICATIONS: None CLOSURE TECHNIQUE: Primary PARTICIPATION IN SURGERY/PROCEDURE: I/primary surgeon/proceduralist performed the procedure with assistance. No qualified reside (more content not included)... Normal [facility] [place] US SHOULDER-INJECTION LT (PO C) CAMEL[place] USE ONLYon 10-28-2022 [facility] MRI SHOULDER WO IVCON LEFTon 08-22-2022 [facility] XR Shoulder - left 3 Viewson 07-31-2022 IMPRESSION: Minimal AC joint arthrosis Thermospray Operator: SHRUTHI Transcribe Date/Time: Jul 31 2022 10:10A Dictated by : ELLIOT DE DIOS MD This examination was interpreted and the report reviewed and electronically signed by: ELLIOT DE DIOS MD on Jul 31 2022 10:11AM EST [facility] * * *Final Report* * * DATE OF EXAM: Jul 29 2022 12:40PM LUTHER 5252 - XR SHLDR >/=3V AP/LEI AP/OTHR LT / PROCEDURE REASON: M25.819-Shoulder impingement * * * * Physician Interpretation * * * * PROCEDURE: Left shoulder INDICATION: Shoulder impingement .patient states pain in left shoulder for the past couple months. No known injury/trauma TECHNIQUE: XR SHLDR >/=3V AP/LEI AP/OTHR LT COMPARISON: 06/11/2021 FINDINGS: No acute fracture or dislocation. Mild spurring at the AC joint. Glenohumeral joint and acromiohumeral interval are maintained. Minimal spurring at the AC joint. [facility] Provider, Matthew Wong - 07/31/2022 * * *Final Report* * * DATE OF EXAM: Jul 29 2022 12:40PM LUTHER 5252 - XR SHLDR >/=3V AP/LEI AP/OTHR LT / PROCEDURE REASON: M25.819-Shoulder impingement * * * * Physician Interpretation * * * * PROCEDURE: Left shoulder INDICATION: Shoulder impingement .patient states pain in left shoulder for the past couple months. No known injury/trauma TECHNIQUE: XR SHLDR >/=3V AP/LEI AP/OTHR LT COMPARISON: 06/11/2021 FINDINGS: No acute fracture or dislocation. Mild spurring at the AC joint. Glenohumeral joint and acromiohumeral interval are maintained. Minimal spurring at the AC joint. IMPRESSION IMPRESSION: Minimal AC joint arthrosis Thermospray Operator: SHRUTHI Transcribe Date/Time: Jul 31 2022 10:10A Dictated by : ELLIOT DE DIOS MD This examination was interpreted and the report reviewed and electronically signed by: ELLIOT DE DIOS MD on Jul 31 2022 10:11AM EST [facility] XR Shoulder - left 3 ViewsOr dered By: [facility] Provider on 07-31-2022 [facility] ALLIED HEALTHon 07-29-2022 ALLIED HEALTH HNO ID: [id number] Author: RT Marlena(Dwain) Service: Radiology Author Type: Technologist Type: Allied Health Filed: 07/29/2022 12:41 PM Note Text: Radiology Service Progress Note PATIENT NAME: Morena Martinez DATE OF SERVICE: July 29, 2022 TIME: 12:41 PM PATIENT IDENTITY VERIFICATION COMPLETED USING TWO (2) IDENTIFIERS: Name and Date of confirmed by patient verbally and Name and Date of confirmed by identification band. FALL SCREENING: Has the patient had 2 falls in the last year or 1 fall with injury or currently using an Ambulatory Assistive Device (Walker, Cane, Wheelchair, Crutches, etc.)? No PATIENT GENDER DATA: Female. status: : No status: NO. PATIENT RELEVANT IMPLANT DATA REVIEWED: Not Applicable RADIOLOGY DEPARTMENT: General X-ray: Exam(s) Completed: Upper Extremity X-Ray(s): Shoulder, AP / TRUE AP / AXILLARY / SUPRA OUTLET left PERIPHERAL IV DATA: Not applicable SIGNED BY: Ana Rosa Kathy, RT(R) July 29, 2022 12:41 PM [facility] XR SHLDR >/=3V AP/LEI AP/OTH R LTon 07-29-2022 XR SHLDR >/=3V AP/LEI AP/OTHR LT * * *Final Report* * * DATE OF EXAM: Jul 29 2022 12:40PM LUTHER 5252 - XR SHLDR >/=3V AP/LEI AP/OTHR LT / PROCEDURE REASON: M25.819-Shoulder impingement * * * * Physician Interpretation * * * * PROCEDURE: Left shoulder INDICATION: Shoulder impingement .patient states pain in left shoulder for the past couple months. No known injury/trauma TECHNIQUE: XR SHLDR >/=3V AP/LEI AP/OTHR LT COMPARISON: 06/11/2021 FINDINGS: No acute fracture or dislocation. Mild spurring at the AC joint. Glenohumeral joint and acromiohumeral interval are maintained. Minimal spurring at the AC joint. IMPRESSION: Minimal AC joint arthrosis Thermospray Operator: SHRUTHI Transcribe Date/Time: Jul 31 2022 10:10A Dictated by : ELLIOT DE DIOS MD This examination was interpreted and the report reviewed and electronically signed by: ELLIOT DE DIOS MD on Jul 31 2022 10:11AM EST [id number] [facility] XR Shoulder - left 3 Viewson 07-29-2022 Radiology Study observation (narrative) [facility] INR FINGERSTICK B/Oon 2022 INR Coag (Bld) [Relative time] 2.7 (pt reported) [facility] STREP A MOLECULAR (POC)on Procedural Control Valid [facility] Strep A (POCT) Negative Negative [facility] Bacteria identified Cx Nom ( Wound)Ordered By: Anna Murphy on 05-24-2022 Wound Culture Propionibacterium propionicum [facility] Bacteria identified Anaer cx Nom (Unsp spec)Ordered By: Anna Murphy on 05-22-2022 Anaerobic Culture Anaerobic cocci [facility] Gram stain for investigation of transfusion reactionOrdered By: Anna Murphy on 01-18-2023 Microscopic observation Gram stain Nom (Unsp spec) [facility] INR FINGERSTICK B/Oon 2021 INR Coag (Bld) [Relative time] 2.7 {INR} [facility] XR Foot - right AP and Later al and obliqueon 03-11-2022 IMPRESSION: No acute fracture. Midfoot degenerative disease. Thermospray Operator: SHRUTHI Transcribe Date/Time: Mar 11 2022 12:19P Dictated by : JM MENDOZA MD This examination was interpreted and the report reviewed and electronically signed by: JM MENDOZA MD on Mar 11 2022 12:20PM [facility] DIVISION OF RADIOLOGY * * *Final Report* * * DATE OF EXAM: Mar 11 2022 10:26AM WOX 5337 - XR FOOT 3V AP/LAT/OBL RT / PROCEDURE REASON: Pain in right foot * * * * Physician Interpretation * * * * EXAMINATION: XR FOOT 3V AP/LAT/OBL RT CLINICAL HISTORY: Right foot pain Technique: XR FOOT 3V AP/LAT/OBL RT -- RIGHT with 3 views on 3 images Comparison: None RESULT: No acute fracture or dislocation. Tarsometatarsal joint space narrowing with marginal osteophytes. No periarticular erosions. Plantar and posterior calcaneal spurs. DIVISION OF RADIOLOGY Provider, [facility] - 03/11/2022 * * *Final Report* * * DATE OF EXAM: Mar 11 2022 10:26AM WOX 5337 - XR FOOT 3V AP/LAT/OBL RT / PROCEDURE REASON: Pain in right foot * * * * Physician Interpretation * * * * EXAMINATION: XR FOOT 3V AP/LAT/OBL RT CLINICAL HISTORY: Right foot pain Technique: XR FOOT 3V AP/LAT/OBL RT -- RIGHT with 3 views on 3 images Comparison: None RESULT: No acute fracture or dislocation. Tarsometatarsal joint space narrowing with marginal osteophytes. No periarticular erosions. Plantar and posterior calcaneal spurs. IMPRESSION IMPRESSION: No acute fracture. Midfoot degenerative disease. Thermospray Operator: SHRUTHI Transcribe Date/Time: Mar 11 2022 12:19P Dictated by : JM MENDOZA MD This examination was interpreted and the report reviewed and electronically signed by: JM MENDOZA MD on Mar 11 2022 12:20PM EST [facility] Radiology Study observation (narrative) [facility] XR Foot - right AP and Later al and obliqueOrdered By: [facility] Provider on 03-11-2022 [facility] C-REACTIVE PROTEIN (CRP)on CRP [Mass/Vol] 0.7 mg/dL <0.9 mg/dL [facility] CK CREATINE KINASEon 022 CK [Catalytic activity/Vol] 83 U/L 42 - 196 U/L [facility] ESR Westergren method (Bld) [Velocity]on 02-04-2022 ESR (Bld) [Velocity] 23 mm/h High 0 - 20 mm/hr [facility] RHEUMATOID FACTOR BLon 02-04 Rheumatoid factor Qn <16 IU/mL [facility] INR FINGERSTICK B/Oon 2021 INR Coag (Bld) [Relative time] 2.9 {INR} [facility] INR FINGERSTICK B/Oon 2021 INR Coag (Bld) [Relative time] 1.7 (biotel) [facility] Quality Check No [facility] OBSOLETEon 07-11-2017 OBSOLETE Refill (AGCARDWST) -MORENA MARTINEZ ([id number]) 1965 FDate Time Provider Department07/11/17 CASEY HUDSON During your visit today, we recorded the following information about you:Casey Hudson MD 07/11/2017 8:37 AM SignedThe following approved medication requests have been transmitted electronically.Signed Prescriptions Disp Refills atenolol (TENORMIN) 25 mg tablet 180 tablet 3 Sig: TAKE 1 TABLET TWICE DAILY JAISON: No Authorizing Provider: CASEY HUDSON MDAdam Gilmor, RN, RN 07/11/2017 9:00 AM Signedescript confirmedAllergies As of Date: 07/11/2017 Noted Allergy ReactionAUGMENTIN (AMOXICILLIN-POT CLAVUL*12/31/2004 14 - Other: See Comments Comments: Adverse effect, developed yeast infectionBEXTRA (VALDECOXIB) 12/31/2004 7 - Swelling Comments: Ankle swellingCELEBREX (CELECOXIB) 12/31/2004 7 - Swelling Comments: ankle swellingERYTHROMYCIN 12/31/2004 2 - RashLATEX 12/31/2004LOVENOX (ENOXAPARIN SODIUM) 06/23/2011 2 - RashVIOXX (ROFECOXIB) 12/31/2004 7 - Swelling Comments: ankle swellingVOLTAREN (DICLOFENAC SODIUM) 12/31/2004 7 - Swelling Comments: ankle swellingDate Reviewed: 07/04/2017Reviewed by: Priscila Blanton RN - Fully AssessedReason for Visit: Refill Request [94]Order(s):atenolol (TENORMIN) 25 mg tabletTAKE 1 TABLET TWICE DAILYDisp: 180 tabletRfl: 3Prescriptions as of 07/11/2017 Sig: ATENOLOL 25 MG [...] MG SUBLINGU* Dissolve 1 tablet under the t*Problem List As Of Date 07/11/2017 Noted Resolved [...] right knee [M25.361] INVALID FOR* Hx of [place] [facility] use of blood thinners [Z92.29] INVALID FOR*Prescriptions ordered this encounter Disp Refills Start End ATENOLOL 25 MG TABLET 180 * 3 07/11/2017 Sig: TAKE 1 TABLET TWICE DAILYMedications Discontinued During This Encounter atenolol (TENORMIN) 50 mg tablet 45 t* 11 11/22/2016 07/11/2017 Sig: Take 50 mg in the AM and 25 mg in the PM Disc: Reason for discontinue is not on file. Status:Closed by JARED GALLARDO on 07/11/17 [facility] CNOVon 02-22-2017 OV Office Visit (AGCARDWST) -MORENA MARTINEZ ([id number]) 1965 FDate Time Provider Xfmfighzsl31/25/17 11:00 AM CASEY HUDSON During your visit today, we recorded the following information about you: Pulse Blood pressure Weight Height 60/minute 136/80 170.4 kg 1.702 Yamila Hudson MD 02/22/2017 11:21 AM SignedPERTINENT CARDIAC HISTORYChest pain - abnormal ECGHTNGlucose intolerancePE - 1989DVT - 2007IVC filter 2012Palpitations - no complex arrhythmiaOSA? - negative sleep studyADHERENCE TO GUIDELINESACE-I or ARB for HF with prior LVEFANDlt;40 (NQF 0081) - N/AASA or Plavix for ASHD (NQF 0067) - N/A, on warfarinBeta yusuf for ASHD with prior IA or prior LVEFANDlt;40 (NQF 0070) - N/ABeta yusuf for HF with prior LVEFANDlt;40 (NQF 0083) - N/AACE-I or ARB for ASHD with DM or prior LVEFANDlt;40 (NQF 0066) - N/AStatin therapy for ASHD or FHL or DM - N/ABMI documented and plan if ANDgt;25 (NQF 0421) - lifestyle recommendation formTobacco use screening and referral (NQF 0028) - lifestyle recommendation formRecommendation for whole food, plant based diet - lifestyle recommendation formCLINICAL IMPRESSION/PLAN:Morena Martinez has atypical chest discomfort, which has improved. She wouldlike to defer angiography at this time. I've encouraged her to takenitroglycerin liberally for chest discomfort and report increasing pain. Shehas been reminded of the use of the emergency department.Plant based diet was recommended. She is not on statin therapy and hasborderline elevated LDL.I will see her in 8 months or as needed.Written and verbal health teaching given to patient, patient verbalizesunderstanding and agrees with treatment plan.This note was generated using Ed4U recognition system, and there may besome incorrect words, spellings, and punctuation that were not noted inchecking the note before saving.DIAGNOSIS FOR VISIT:Chest painHypertensionHISTORY OF PRESENT ILLNESSMorena Martinez returns for follow-up of her chest pain syndrome. On our lastvisit, she had mentioned an increase in chest pain syndrome. Medication wasadjusted. She was asked to call with progress report but never did. Since then,her stress level has decreased and she has had significant improvement in herchest pain. She has used no nitroglycerin since last visit. She would like todefer cardiac cath.She's had no orthopnea. She has noted increased swelling as she has beenpushing fluids to combat a urinary infection.She denies syncope, TIAs, amaurosis and claudication. She reports improvementin her palpitations.ALLERGIES:ALLERGI ESAllergen Reactions- Augmentin [Amoxicil* Other: See Comments Adverse effect, developed yeast infection- Bextra [Valdecoxib] Swelling Ankle swelling- Celebrex [Celecoxib] Swelling ankle swelling- Erythromycin Rash- Latex- Lovenox [Enoxaparin* Rash- Vioxx [Rofecoxib] Swelling ankle swelling- Voltaren [Diclofena* Swelling ankle swellingCURRENT OUTPATIENT MEDICATIONS:acetaminophen-code ine (TYLENOL-COD #4) 300-60 mg per tablet Take 1 tablet bymouth every 4 hours as needed for Pain.warfarin (COUMADIN) 5 mg tablet Take 10 mg Tues and 7.5 mg all other days or asdirected.cyclobenzaprine (FLEXERIL) 10 mg tablet Take 1 tablet by mouth every 8 hours asneeded for Muscle Spasm. for pain or spasms.atenolol (TENORMIN) 50 mg tablet Take 50 mg in the AM and 25 mg in the PMamLODIPine (NORVASC) 10 mg tablet Take 1 tablet by mouth once daily.albuterol HFA (PROVENTIL HFA, VENTOLIN HFA) 90 mcg/actuation inhaler Inhale 2Puffs as instructed every 6 hours as needed for Wheezing/Shortness of Breath.furosemide (LASIX) 20 mg tablet Take 1 tablet by mouth once daily. NEEDEDlisinopril (ZESTRIL, PRINIVIL) 20 mg tablet Take 0.5 tablets by mouth oncedaily.nitroglycerin sublingual (NITROQUICK) 0.4 mg SL tablet Dissolve 1 tablet underthe tongue as needed. FOR CHEST PAIN. IF NO RELIEF CALL 911gabapentin (NEURONTIN) 100 mg capsule Take 1 capsule by mouth three timesdaily.PHYSICAL EXAMINATION:VITAL SIGNS: BP 136/80 Pulse 60 Ht 5' 7ANDquot; (1.70m) Wt 375 lb 9.6 oz(170.4kg) BMI 58.81 kg/(m2).Chest: Clear to percussion and auscultation. Trachea is midline. Air entry isequal. Cardiac: Regular rhythm. S1 and S2 are normal. PMI is nondisplaced.There is a soft systolic ejection murmur. Carotids are brisk without bruits.JVP is less than 10 cm. Abdomen: Soft and nontender. Obesity precludesadequate examination. There are no pulsatile masses or bruits. No liverenlargement. Bowel sounds are active. Extremities: Trace edema. Pulses areintact and symmetrical.EKG shows sinus rhythm with minor repolarization changes, which have improvedsince last study.Electronically Signed:Casey Hudson MDFebruary 22, 2017 11:15 [facility]: Debi Garcia MD 02/22/2017 11:15 AM SignedLIFESTYLE CHANGEA healthy lifestyle is the most important component of your overall treatmentplan. Please give serious thought to the following areas and commit to makinglong term changes.EAT A WHOLE FOOD, PLANT BASED DIETThe nutrition your body gets is more important than the medicine you take.What matters most is the overall way you eat. We encourage you to minimize theuse of animal products (which include dairy and all meats except fatty fish)and use whole, unprocessed plant foods to provide your protein, vitamins andother nutrients. We have a lot of information to share with you on this topic. We also hold Shared Medical Appointments, where you can come visit with in the company of other patients and spend over an hour talking aboutthe challenges of changing the way you eat. This is not a ANDquot;dietANDquot;.It is a way of life that you will keep with you.EXERCISE REGULARLYIt is not important to spend hours in the gym, lifting weights and perspiringheavily. A total of 2-3 hours per week of aerobic (causing you to bemoderately short of breath) exercise is sufficient to improve your health.Talk to us before you begin a new exercise program, if you have heart diseaseor experience shortness of breath or chest pain.REDUCE STRESSChronic emotional and physical stress leads to disease. Ways of reducingstress include meditation, visualization, prayer, yoga and other forms ofrelaxation therapy. Consistency is the loyola. Find a technique that works foryou and do it every day.CULTIVATE RELATIONSHIPSLoneliness and isolation have a major negative impact on health. Seek outothers who can love, care for and nurture you. Avoid hurtful relationships.MAINTAIN IDEAL BODY WEIGHTThe best way to do this is to do all the things above. Our bodies naturallyfind the right weight if we keep moving and feed ourselves the right food. Ifyour BMI is greater than 25, we strongly recommend a referral to a weightmanagement program. Please speak to us or your family physician aboutavailable programs.AVOID NICOTINE IN ALL FORMSThis includes all tobacco products, whether chewed, smoked, vaped, or rubbed onthe skin. Smoking cessation programs, which can make use of tobaccosubstitutes, medications to suppress cravings and behavior management, areavailable. Please contact your family physician about programs in your area.Referring Provider: CASEY HUDSON [[id number]]Allergies As of Date: 02/22/2017 Noted Allergy ReactionAUGMENTIN (AMOXICILLIN-POT CLAVUL*12/31/2004 14 - Other: See Comments Comments: Adverse effect, developed yeast infectionBEXTRA (VALDECOXIB) 12/31/2004 7 - Swelling Comments: Ankle swellingCELEBREX (CELECOXIB) 12/31/2004 7 - Swelling Comments: ankle swellingERYTHROMYCIN 12/31/2004 2 - RashLATEX 12/31/2004LOVENOX (ENOXAPARIN SODIUM) 06/23/2011 2 - RashVIOXX (ROFECOXIB) 12/31/2004 7 - Swelling Comments: ankle swellingVOLTAREN (DICLOFENAC SODIUM) 12/31/2004 7 - Swelling Comments: ankle swellingDate Reviewed: 02/22/2017Reviewed by: Jared Castorena) KYRIE Gallardo - Fully AssessedReason for Visit: Follow Up [171] Cmt: 3 monthPrimary Visit Diagnosis:Chest pain, unspecified type [R07.9] Other Visit Diagnosis:Hypertension, essential [I10]Order(s):ECG B/O W INTERP (MED OFFICE) [ECG06] Order #: [id number] as of 02/22/2017 Sig: ACETAMINOPHEN 300 MG-CODEINE * Take 1 tablet by mouth every * WARFARIN 5 MG TABLET Take 10 mg Tues and 7.5 mg al* CYCLOBENZAPRINE 10 MG TABLET Take 1 tablet by mouth every * ATENOLOL 50 MG TABLET Take 50 mg in the AM and 25 m* AMLODIPINE 10 MG TABLET Take 1 tablet by mouth once d* ALBUTEROL SULFATE HFA 90 MCG/* Inhale 2 Puffs as instructed * FUROSEMIDE 20 MG TABLET Take 1 tablet by mouth once d* LISINOPRIL 20 MG TABLET Take 0.5 tablets by mouth onc* NITROGLYCERIN 0.4 MG SUBLINGU* Dissolve 1 tablet under the t* GABAPENTIN 100 MG CAPSULE Take 1 capsule by mouth three*Problem List As Of Date 02/22/2017 Noted Resolved Allergic Rhinitis, Cause Unspecified [J30.9] [...] right knee [M25.361] INVALID FOR* Hx of [place] [facility] use of blood thinners [Z79.01] INVALID FOR* Other instructions from your clinician: LIFESTYLE CHANGE A healthy lifestyle is the most important component of your overall treatment plan. Please give serious thought to the following areas and commit to making [place] [facility] changes. EAT A WHOLE FOOD, PLANT BASED [...] to share with you on this topic. We also hold Shared Medical Appointments, where you can come visit with Dr. Hudson in the company of other patients and spend over an hour talking about the challenges of changing the way you eat. This is not a diet. It is [...] your family physician about programs in your area.Classic SmartForms filed during this visit:Extended VitalsEncounter Number: [id number] Status:Closed by CASEY HUDSON MD on 02/22/17 [facility] PROGRESSon 02-22-2017 PROGRESS HNO ID: [id number] thor: Caesy Cox: (none)Author Type: PhysicianType: Progress NotesFiled: 02/22/2017 11:21 AMNote Text:PERTINENT CARDIAC HISTORYChest pain - abnormal ECGHTNGlucose intolerancePE - 1989DVT - 2007IVC filter 2012Palpitations - no complex arrhythmiaOSA? - negative sleep studyADHERENCE TO GUIDELINESACE-I or ARB for HF with prior LVEF<40 (NQF 0081) - N/AASA or Plavix for ASHD (NQF 0067) - N/A, on warfarinBeta yusuf for ASHD with prior IA or prior LVEF<40 (NQF 0070) - N/ABeta yusuf for HF with prior LVEF<40 (NQF 0083) - N/AACE-I or ARB for ASHD with DM or prior LVEF<40 (NQF 0066) - N/AStatin therapy for ASHD or FHL or DM - N/ABMI documented and plan if >25 (NQF 0421) - lifestyle recommendation formTobacco use screening and referral (NQF 0028) - lifestyle recommendationformRecommendati on for whole food, plant based diet - lifestyle recommendationformCLINICAL IMPRESSION/PLAN:Morena Martinez has atypical chest discomfort, which has improved. Shewould like to defer angiography at this time. I've encouraged her to takenitroglycerin liberally for chest discomfort and report increasing pain.She has been reminded of the use of the emergency department.Plant based diet was recommended. She is not on statin therapy and hasborderline elevated LDL.I will see her in 8 months or as needed.Written and verbal health teaching given to patient, patient verbalizesunderstanding and agrees with treatment plan.This note was generated using Dragon voice recognition system, and theremay be some incorrect words, spellings, and punctuation that were notnoted in checking the note before saving.DIAGNOSIS FOR VISIT:Chest painHypertensionHISTORY OF PRESENT ILLNESSMorena Martinez returns for follow-up of her chest pain syndrome. On ourlast visit, she had mentioned an increase in chest pain syndrome.Medication was adjusted. She was asked to call with progress report butnever did. Since then, her stress level has decreased and she has hadsignificant improvement in her chest pain. She has used no nitroglycerinsince last visit. She would like to defer cardiac cath.She's had no orthopnea. She has noted increased swelling as she has beenpushing fluids to combat a urinary infection.She denies syncope, TIAs, amaurosis and claudication. She reportsimprovement in her palpitations.ALLERGIES:ALLERGI ESAllergen Reactions- Augmentin [Amoxicil* Other: See Comments Adverse effect, developed yeast infection- Bextra [Valdecoxib] Swelling Ankle swelling- Celebrex [Celecoxib] Swelling ankle swelling- Erythromycin Rash- Latex- Lovenox [Enoxaparin* Rash- Vioxx [Rofecoxib] Swelling ankle swelling- Voltaren [Diclofena* Swelling ankle swellingCURRENT OUTPATIENT MEDICATIONS:acetaminophen-code ine (TYLENOL-COD #4) 300-60 mg per tablet Take 1 tabletby mouth every 4 hours as needed for Pain.warfarin (COUMADIN) 5 mg tablet Take 10 mg Tues and 7.5 mg all other daysor as directed.cyclobenzaprine (FLEXERIL) 10 mg tablet Take 1 tablet by mouth every 8hours as needed for Muscle Spasm. for pain or spasms.atenolol (TENORMIN) 50 mg tablet Take 50 mg in the AM and 25 mg in the PMamLODIPine (NORVASC) 10 mg tablet Take 1 tablet by mouth once daily.albuterol HFA (PROVENTIL HFA, VENTOLIN HFA) 90 mcg/actuation inhalerInhale 2 Puffs as instructed every 6 hours as needed forWheezing/Shortness of Breath.furosemide (LASIX) 20 mg tablet Take 1 tablet by mouth once daily. ASNEEDEDlisinopril (ZESTRIL, PRINIVIL) 20 mg tablet Take 0.5 tablets by mouth oncedaily.nitroglycerin sublingual (NITROQUICK) 0.4 mg SL tablet Dissolve 1 tabletunder the tongue as needed. FOR CHEST PAIN. IF NO RELIEF CALL 911gabapentin (NEURONTIN) 100 mg capsule Take 1 capsule by mouth three timesdaily.PHYSICAL EXAMINATION:VITAL SIGNS: BP 136/80 Pulse 60 Ht 5' 7 (1.70m) Wt 375 lb 9.6 oz(170.4kg) BMI 58.81 kg/(m2).Chest: Clear to percussion and auscultation. Trachea is midline. Airentry is equal. Cardiac: Regular rhythm. S1 and S2 are normal. PMI isnondisplaced. There is a soft systolic ejection murmur. Carotids arebrisk without bruits. JVP is less than 10 cm. Abdomen: Soft andnontender. Obesity precludes adequate examination. There are no pulsatilemasses or bruits. No liver enlargement. Bowel sounds are active.Extremities: Trace edema. Pulses are intact and symmetrical.EKG shows sinus rhythm with minor repolarization changes, which haveimproved since last study.Electronically Signed:Casey Hudson MDFebruary 22, 2017 11:15 [facility]: Milka Mas MD Normal [facility] Office Visiton 2017 Protein mass conc Done Invalid Interpretation Code [facility] Work Phone: Tobacco smoking status NHIS Former smoker Invalid Interpretation Code [facility] Work Phone: Additional Injections: L bic ep tendon sheath [facility] Vital Signs Date Time Vital Sign Value Performing Clinician Facility 07-18-2024 09:30-0400 Diastolic blood pressure 90 mm[Hg] Milka Mas MD Work Phone: [facility] 07-18-2024 09:30-0400 Systolic blood pressure 138 mm[Hg] Milka Mas MD Work Phone: [facility] 07-18-2024 09:25-0400 Body mass index (BMI) [Ratio] 54.24 kg/m2 Milka Mas MD Work Phone: [facility] 07-18-2024 09:25-0400 Body weight 157.1 kg Milka Mas MD Work Phone: [facility] 07-18-2024 09:25-0400 Heart rate 64 /min Milka Mas MD Work Phone: [facility] 07-18-2024 09:25-0400 Respiratory rate 18 /min Milka Mas MD Work Phone: [facility] 02-15-2024 09:15-0400 Body mass index (BMI) [Ratio] 53.87 kg/m2 Milka Mas MD Work Phone: [facility] 02-15-2024 09:15-0400 Body weight 156 kg Milka Mas MD Work Phone: [facility] 02-15-2024 09:15-0400 Diastolic blood pressure 82 mm[Hg] Milka Mas MD Work Phone: [facility] 02-15-2024 09:15-0400 Heart rate 68 /min Milka Mas MD Work Phone: [facility] 02-15-2024 09:15-0400 Respiratory rate 16 /min Milka Mas MD Work Phone: [facility] 02-15-2024 09:15-0400 Systolic blood pressure 136 mm[Hg] Milka Mas MD Work Phone: [facility] 11-14-2023 08:53-0400 Body mass index (BMI) [Ratio] 53.35 kg/m2 Milka Mas MD Work Phone: [facility] 11-14-2023 08:53-0400 Body weight 154.5 kg Milka Mas MD Work Phone: [facility] 11-14-2023 08:53-0400 Diastolic blood pressure 78 mm[Hg] Milka Mas MD Work Phone: [facility] 11-14-2023 08:53-0400 Heart rate 76 /min Milka Mas MD Work Phone: [facility] 11-14-2023 08:53-0400 Respiratory rate 18 /min Milka Mas MD Work Phone: [facility] 11-14-2023 08:53-0400 Systolic blood pressure 126 mm[Hg] Milka Mas MD Work Phone: [facility] 09-07-2023 16:42-0400 Body mass index (BMI) [Ratio] 53.66 kg/m2 Lizette Praisler-Wood [employer] K[employer].REFINERY OPERATOR [employer] Work Phone: [facility] 09-07-2023 16:42-0400 Body temperature 98.91 [degF] Lizette Praisler-Wood [employer]RI[employer] KEE[employer].REFINERY OPERATOR [employer] Work Phone: [facility] 09-07-2023 16:42-0400 Body weight 155.4 kg Lizette Praisler-Wood [employer]RI[employer]IN KEEPER.REFINERY OPERATOR [employer] Work Phone: [facility] 09-07-2023 16:42-0400 Diastolic blood pressure 88 mm[Hg] Lizette Praisler-Wood [employer]RIST [employer] KEEPER.REFINERY OPERATOR [employer] Work Phone: [facility] 09-07-2023 16:42-0400 Heart rate 77 /min Lizette Praisler-Wood [employer]RIST CABIN KEEPER.REFINERY OPERATOR [employer] Work Phone: [facility] 09-07-2023 16:42-0400 Respiratory rate 18 /min Lizette Praisler-Wood [employer]RIST CABIN KEEPER.REFINERY OPERATOR [employer] Work Phone: [facility] 09-07-2023 16:42-0400 SaO2% (BldA) [Mass fraction] 98 % Lizette Praisler-Wood [employer]RI[employer] K[employer]PER.REFINERY OPERATOR [employer] Work Phone: [facility] 09-07-2023 16:42-0400 Systolic blood pressure 176 mm[Hg] Lizette Praisler-Wood [employer]RIST CABIN KEEPER.REFINERY OPERATOR [employer] Work Phone: [facility] 08-15-2023 14:50-0400 Body weight 153.32 kg Milka Mas MD Work Phone: [facility] 08-15-2023 14:50-0400 Diastolic blood pressure 74 mm[Hg] Milka Mas MD Work Phone: [facility] 08-15-2023 14:50-0400 Heart rate 78 /min Milka Mas MD Work Phone: [facility] 08-15-2023 14:50-0400 Respiratory rate 16 /min Milka Mas MD Work Phone: [facility] 08-15-2023 14:50-0400 Systolic blood pressure 128 mm[Hg] Milka Mas MD Work Phone: [facility] 03-13-2023 09:50-0500 Body temperature 97.81 [degF] Lizette Praisler-Wood [employer]RI[employer] KEEPER.REFINERY OPERATOR [employer] Work Phone: [facility] 03-13-2023 09:50-0500 Body weight 157.4 kg Lizette Praisler-Wood [employer]RI[employer]IN KEEPER.REFINERY OPERATOR [employer] Work Phone: [facility] 03-13-2023 09:50-0500 Diastolic blood pressure 84 mm[Hg] Lizette Praisler-Wood TOURIST CABIN KEEPER.REFINERY OPERATOR [employer] Work Phone: [facility] 03-13-2023 09:50-0500 Heart rate 74 /min Lizette Praisler-Wood TOURIST CABIN KEEPER.REFINERY OPERATOR [employer] Work Phone: [facility] 03-13-2023 09:50-0500 Respiratory rate 21 /min Lizette Praisler-Wood TOURIST CABIN KEEPER.REFINERY OPERATOR [employer] Work Phone: [facility] 03-13-2023 09:50-0500 SaO2% (BldA) [Mass fraction] 98 % Lizette Praisler-Wood [employer]RI[employer] KEEPER.REFINERY OPERATOR [employer] Work Phone: [facility] 03-13-2023 09:50-0500 Systolic blood pressure 138 mm[Hg] Lizette Praisler-Wood [employer]RIST [employer]IN KEEPER.REFINERY OPERATOR [employer] Work Phone: [facility] 02-07-2023 14:11-0400 Body weight 158.03 kg Milka Mas MD Work Phone: [facility] 02-07-2023 14:11-0400 Diastolic blood pressure 88 mm[Hg] Milka Mas MD Work Phone: [facility] 02-07-2023 14:11-0400 Heart rate 74 /min Milka Mas MD Work Phone: [facility] 02-07-2023 14:11-0400 Respiratory rate 16 /min Milka Mas MD Work Phone: [facility] 02-07-2023 14:11-0400 Systolic blood pressure 138 mm[Hg] Milka Mas MD Work Phone: [facility] 12-05-2022 08:01-0400 Body height 170.2 cm Pacc 1 Work Phone: [facility] 12-05-2022 08:01-0400 Body temperature 97 [degF] Pacc 1 Work Phone: [facility] 12-05-2022 08:01-0400 Body weight 156.94 kg Pacc 1 Work Phone: [facility] 12-05-2022 08:01-0400 Diastolic blood pressure 68 mm[Hg] Pacc 1 Work Phone: [facility] 12-05-2022 08:01-0400 Heart rate 59 /min Pacc 1 Work Phone: [facility] 12-05-2022 08:01-0400 Respiratory rate 16 /min Pacc 1 Work Phone: [facility] 12-05-2022 08:01-0400 SaO2% (BldA) [Mass fraction] 98 % Pacc 1 Work Phone: [facility] 12-05-2022 08:01-0400 Systolic blood pressure 140 mm[Hg] Pacc 1 Work Phone: [facility] 11-26-2022 12:08-0400 Body temperature 98.2 [degF] Jorge Doherty MD Work Phone: [facility] 11-26-2022 12:08-0400 Body weight 156.13 kg Jorge Doherty MD Work Phone: [facility] 11-26-2022 12:08-0400 Diastolic blood pressure 82 mm[Hg] Jorge Doherty MD Work Phone: [facility] 11-26-2022 12:08-0400 Heart rate 69 /min Jorge Doherty MD Work Phone: [facility] 11-26-2022 12:08-0400 Respiratory rate 18 /min Jorge Doherty MD Work Phone: [facility] 11-26-2022 12:08-0400 SaO2% (BldA) [Mass fraction] 97 % Jorge Doherty MD Work Phone: [facility] 11-26-2022 12:08-0400 Systolic blood pressure 132 mm[Hg] Jorge Doherty MD Work Phone: [facility] 07-26-2022 09:13-0400 Body temperature 98.29 [degF] Lisa Reynolds APRN.REFINERY OPERATOR [employer] Work Phone: [facility] 07-26-2022 09:13-0400 Body weight 157.22 kg Lisa Reynolds APRN.REFINERY OPERATOR [employer] Work Phone: [facility] 07-26-2022 09:13-0400 Diastolic blood pressure 88 mm[Hg] Lisa Reynolds APRN.REFINERY OPERATOR [employer] Work Phone: [facility] 07-26-2022 09:13-0400 Heart rate 75 /min Lisa Reynolds APRN.REFINERY OPERATOR [employer] Work Phone: [facility] 07-26-2022 09:13-0400 Respiratory rate 18 /min Lisa Reynolds APRN.REFINERY OPERATOR [employer] Work Phone: [facility] 07-26-2022 09:13-0400 SaO2% (BldA) [Mass fraction] 98 % Lisa Reynolds APRN.REFINERY OPERATOR [employer] Work Phone: [facility] 07-26-2022 09:13-0400 Systolic blood pressure 144 mm[Hg] Lisa Reynolds APRN.REFINERY OPERATOR [employer] Work Phone: [facility] 07-19-2022 11:23-0400 Body weight 156.94 kg Milka Mas MD Work Phone: [facility] 07-19-2022 11:23-0400 Diastolic blood pressure 84 mm[Hg] Milka Mas MD Work Phone: [facility] 07-19-2022 11:23-0400 Heart rate 60 /min Milka Mas MD Work Phone: [facility] 07-19-2022 11:23-0400 Respiratory rate 16 /min Milka Mas MD Work Phone: [facility] 07-19-2022 11:23-0400 Systolic blood pressure 136 mm[Hg] Milka Mas MD Work Phone: [facility] 06-29-2022 09:03-0500 Body mass index (BMI) [Ratio] 53.5 kg/m2 [facility] 06-29-2022 09:03-0500 Body temperature 96.2 [degF] [facility] 06-29-2022 09:03-0500 Diastolic blood pressure 66 mm[Hg] [facility] 06-29-2022 09:03-0500 Heart rate 62 /min [facility] 06-29-2022 09:03-0500 Respiratory rate 16 /min [facility] 06-29-2022 09:03-0500 Systolic blood pressure 147 mm[Hg] [facility] 06-29-2022 00:28-0500 Body weight 155.12 kg [facility] 06-15-2022 09:06-0500 Body mass index (BMI) [Ratio] 53.5 kg/m2 [facility] 06-15-2022 09:06-0500 Body temperature 96.1 [degF] [facility] 06-15-2022 09:06-0500 Diastolic blood pressure 60 mm[Hg] [facility] 06-15-2022 09:06-0500 Heart rate 67 /min [facility] 06-15-2022 09:06-0500 Respiratory rate 18 /min [facility] 06-15-2022 09:06-0500 Systolic blood pressure 181 mm[Hg] [facility] 06-01-2022 00:45-0500 Body weight 155.12 kg [facility] 05-18-2022 08:52-0500 Body height 170.18 cm [facility] 05-18-2022 08:52-0500 Body mass index (BMI) [Ratio] 53.5 kg/m2 [facility] 05-18-2022 08:52-0500 Body temperature 95.8 [degF] [facility] 05-18-2022 08:52-0500 Body weight 155.12 kg [facility] 03-29-2022 10:56-0500 Body temperature 98.6 [degF] Micah Castillo T[employer]RIST CAB[employer] KEEPER.REFINERY OPERATOR [employer] Work Phone: [facility] 03-29-2022 10:56-0500 Body weight 156.94 kg Micah Castillo [employer]RIST [employer] KEEPER.REFINERY OPERATOR [employer] Work Phone: [facility] 03-29-2022 10:56-0500 Diastolic blood pressure 72 mm[Hg] Micah Castillo TOURIST CABIN KEEPER.REFINERY OPERATOR [employer] Work Phone: [facility] 03-29-2022 10:56-0500 Heart rate 92 /min Micah Castillo TOURIST CABIN KEEPER.REFINERY OPERATOR [employer] Work Phone: [facility] 03-29-2022 10:56-0500 Respiratory rate 16 /min Micah Castillo TOURIST CABIN KEEPER.REFINERY OPERATOR [employer] Work Phone: [facility] 03-29-2022 10:56-0500 SaO2% (BldA) [Mass fraction] 96 % Micah Castillo [employer]OURIST CABIN KEEPER.REFINERY OPERATOR [employer] Work Phone: [facility] 03-29-2022 10:56-0500 Systolic blood pressure 124 mm[Hg] Micah Castillo TOURIST CABIN KEEPER.REFINERY OPERATOR [employer] Work Phone: [facility] 03-21-2022 15:59-0500 Body weight 157.63 kg Milka Mas MD Work Phone: [facility] 03-21-2022 15:59-0500 Diastolic blood pressure 80 mm[Hg] Milka Mas MD Work Phone: [facility] 03-21-2022 15:59-0500 Heart rate 78 /min Milka Mas MD Work Phone: [facility] 03-21-2022 15:59-0500 Respiratory rate 16 /min Milka Mas MD Work Phone: [facility] 03-21-2022 15:59-0500 Systolic blood pressure 140 mm[Hg] Milka Mas MD Work Phone: [facility] 03-16-2022 09:00-0500 Diastolic blood pressure 76 mm[Hg] Blaise Golias PT Work Phone: [facility] 03-16-2022 09:00-0500 Systolic blood pressure 166 mm[Hg] Blaise Golias PT Work Phone: [facility] 02-04-2022 08:12-0400 Body height 167.6 cm Lisa Robles PA-C Work Phone: [facility] 02-04-2022 08:12-0400 Body temperature 96.01 [degF] Lisa Robles PA-C Work Phone: [facility] 02-04-2022 08:12-0400 Body weight 156.49 kg Lisa Robles PA-C Work Phone: [facility] 02-04-2022 08:12-0400 Diastolic blood pressure 61 mm[Hg] Lisa Robles PA-C Work Phone: [facility] 02-04-2022 08:12-0400 Heart rate 73 /min Lisa Robles PA-C Work Phone: [facility] 02-04-2022 08:12-0400 Respiratory rate 18 /min Lisa Robles PA-C Work Phone: [facility] 02-04-2022 08:12-0400 SaO2% (BldA) [Mass fraction] 99 % Lisa Robles PA-C Work Phone: [facility] 02-04-2022 08:12-0400 Systolic blood pressure 132 mm[Hg] Lisa Robles PA-C Work Phone: [facility] 01-18-2022 09:37-0400 Body weight 156.31 kg Milka Mas MD Work Phone: [facility] 01-18-2022 09:37-0400 Diastolic blood pressure 80 mm[Hg] Milka Mas MD Work Phone: [facility] 01-18-2022 09:37-0400 Heart rate 78 /min Milka Mas MD Work Phone: [facility] 01-18-2022 09:37-0400 Respiratory rate 18 /min Milka Mas MD Work Phone: [facility] 01-18-2022 09:37-0400 Systolic blood pressure 140 mm[Hg] Milka Mas MD Work Phone: [facility] 09-16-2021 15:00-0400 Diastolic blood pressure 80 mm[Hg] Blaise Golias PT Work Phone: [facility] 09-16-2021 15:00-0400 Systolic blood pressure 144 mm[Hg] Blaise Golias PT Work Phone: [facility] 2017 10:32-0400 BMI (Body Mass Index) 59.71 kg/m2 [facility] Work [facility]: 2017 10:32-0400 Height 167.64 cm Lisette Banks [facility] Work Phone: 2017 10:32-0400 Weight 167.83 kg [facility] Work Phone: Encounters Encounter Date Encounter Type Care Provider Facility Start: 10-16-2024 End: 10-16-2024 Telemedicine consultation with patient Lisette Banks DO Work Phone: Orthopaedics Start: 10-16-2024 End: 10-16-2024 ambulatory Lisette Banks DO Work Phone: Orthopaedics Comment on above: Pain of right hip (P rimary Dx) Start: 10-11-2024 End: 10-14-2024 Refill Milka Mas MD Work Phone: [facility] Comment on above: Refill Request Start: 10-07-2024 End: 10-07-2024 Telephone encounter Manas Maribell [facility] Tele[facility] Comment on above: Anticoagulation Tele phone Fu (Home INR Result ) Start: 09-30-2024 End: 09-30-2024 Patient encounter procedure Daya Castillo DO Work Phone: [facility] Comment on above: Primary osteoarthrit is of right hip Start: 09-30-2024 End: 09-30-2024 ambulatory DAYA CASTILLO Facility:[facility] Start: 09-27-2024 End: 09-27-2024 Telephone encounter Milka Mas MD Work Phone: [facility] Comment on above: indigent meds (Ozemp ic) Start: 09-24-2024 End: 09-24-2024 Telephone encounter Jovanny Peralta [facility] Comment on above: Anticoagulation Tele phone Fu (Home INR result) Start: 09-18-2024 End: 09-18-2024 ambulatory LISETTE BANKS Facility:[facility] Start: 09-16-2024 End: 09-16-2024 Refill Milka Mas MD Work Phone: [facility] Comment on above: Refill Request Ozempic Start: 09-10-2024 End: 09-10-2024 Telephone encounter Jovanny Peralta [facility] Comment on above: Anticoagulation Tele phone Fu (Home INR result) Start: 09-05-2024 End: 09-05-2024 Refill Byron Jolley APRN.CNP Work Phone: [facility] Comment on above: Refill Request Start: 08-08-2024 End: 08-08-2024 Telephone encounter Jamee Hdz [facility] Comment on above: Anticoagulation Tele phone Fu (Home INR) Start: 08-01-2024 End: 10-01-2024 Follow-up encounter Milka Mas MD Work Phone: [facility] [place] Start: 07-31-2024 End: 07-31-2024 ambulatory MILKA MAS Facility:[facility] Start: 07-31-2024 End: 07-31-2024 Subsequent hospital visit by physician [facility] Work Phone: Radiology Comment on above: Abnormal mammogram [ R92.8] Start: 07-23-2024 End: 07-25-2024 Follow-up encounter Milka Mas MD Work Phone: [facility] [place] Start: 07-22-2024 End: 07-22-2024 Telephone encounter Manas Richter [facility] Comment on above: Anticoagulation Tele phone Fu (Home INR Result ) Start: 07-19-2024 End: 07-19-2024 Telephone encounter Milka Mas MD Work Phone: [facility] [place] Comment on above: Insurance Authorizat ion Start: 07-18-2024 End: 07-19-2024 Telephone encounter Milka Mas MD Work Phone: [facility] [place] Comment on above: Insurance Authorizat ion Start: 07-18-2024 End: 07-18-2024 ambulatory MILKA MAS Facility:[facility] Start: 07-18-2024 End: 07-18-2024 Subsequent hospital visit by [facility] Comment on above: Encounter for screen ing mammogram for breast cancer [Z12.31] Start: 07-18-2024 End: 07-18-2024 ambulatory MILKA MAS Facility:[facility] Start: 07-18-2024 End: 07-18-2024 Patient encounter procedure Milka Mas MD Work Phone: [facility] [place] Comment on above: Type 2 diabetes torres itus without complication, without long- term current use of insulin (HCC) (Primary Dx); Chronic midline low back pain without sciatica; Pain of right hip; Right knee pain, unspecified chronicity; Inflammatory polyarthropathy (HCC); Essential hypertension, benign; Mixed hyperlipidemia; Class 3 severe obesity due to excess calories with serious comorbidity and body mass index (BMI) of 50.0 to 59.9 in adult (HCC); Embolism and thrombosis (HCC); Screening for depression; Encounter for screening examination for other mental health and behavioral disorders Start: 07-16-2024 End: 08-16-2024 ambulatory Milka Mas MD Work Phone: [facility] Start: 07-15-2024 End: 09-14-2024 Follow-up encounter Milka Mas MD Work Phone: [facility] Start: 07-11-2024 End: 07-11-2024 Telephone encounter Jamee Hdz [facility] Comment on above: Anticoagulation Tele phone Fu (Home INR) Start: 07-10-2024 End: 07-10-2024 ambulatory MILKA MAS Facility:[facility] Start: 07-10-2024 End: 07-10-2024 Subsequent hospital visit by physician [facility] Work Phone: Radiology Comment on above: Pain of right hip [M 25.551] Start: 06-27-2024 End: 06-27-2024 Telephone encounter Milka Mas MD Work Phone: [facility] Comment on above: pt assistance meds ( Ozempic) Start: 06-24-2024 End: 06-24-2024 Telephone encounter Manas Richter [facility] Telemanagement Comment on above: Anticoagulation Tele phone Fu (Home INR Result ) Start: 06-12-2024 End: 06-13-2024 ambulatory Milka Mas MD Work Phone: [facility] Comment on above: Tizanidine Start: 06-03-2024 End: 06-03-2024 Telephone encounter Shyla Magdaleno [facility] Work Phone: [facility] Comment on above: Anticoagulation Start: 05-22-2024 End: 05-22-2024 Telephone encounter Dori Pepper [facility] Telemanagement Comment on above: Anticoagulation Tele phone Fu (Home INR result ) Start: 05-14-2024 End: 05-14-2024 ambulatory Milka Mas MD Work Phone: [facility] [place] Comment on above: Ozempic Start: 05-06-2024 End: 05-06-2024 Telephone encounter Manas Maribell [facility] Telemanagement Comment on above: Anticoagulation Tele phone Fu (Home INR Result ) Start: 04-23-2024 End: 04-26-2024 Telephone encounter Milka Mas MD Work Phone: [facility] [place] Comment on above: Orders pt assistance forms (Reji Nordisk ) Start: 04-19-2024 End: 04-19-2024 Telephone encounter Milka Mas MD Work Phone: [facility] [place] Start: 04-18-2024 End: 04-18-2024 ambulatory Milka Mas MD Work Phone: [facility] [place] Comment on above: Ozempic Start: 04-18-2024 End: 04-18-2024 Follow-up encounter Milka Mas MD Work Phone: [facility] [place] Comment on above: Ozempic follow up Start: 04-12-2024 End: 04-12-2024 ambulatory Milka Mas MD Work Phone: [facility] [place] Comment on above: Ozempic Start: 04-11-2024 End: 04-11-2024 Refill Byron Jolley APRN.CNP Work Phone: [facility] [place] Comment on above: Refill Request Start: 03-26-2024 End: 03-26-2024 Telephone encounter Jamee Hdz [facility] Telemanagement Comment on above: Anticoagulation Tele phone Fu Start: 03-20-2024 End: 03-21-2024 Telephone encounter Milka Mas MD Work Phone: [facility] [place] Comment on above: Forms Start: 03-07-2024 End: 03-07-2024 Telephone encounter Milka Mas MD Work Phone: [facility] [place] Comment on above: Forms Start: 03-05-2024 End: 03-05-2024 Telephone encounter Jovanny Peralta [facility]ulatory Telemanagement Comment on above: Anticoagulation Tele phone Fu (Home INR result) Start: 02-22-2024 End: 02-23-2024 ambulatory Milka Mas MD Work Phone: [facility] [place] Comment on above: Ozempic Start: 02-22-2024 End: 02-23-2024 Telephone encounter Lisa Norrisrosalind [employer] [facility] Start: 02-15-2024 End: 02-15-2024 ambulatory MILKA MAS Facility:[facility] Start: 02-15-2024 End: 02-15-2024 Patient encounter procedure Milka Mas MD Work Phone: [facility] [place] Comment on above: Type 2 diabetes torres itus without complication, without long- term current use of insulin (HCC) (Primary Dx); Essential hypertension, benign; Mixed hyperlipidemia; Embolism and thrombosis (HCC); Right knee pain, unspecified chronicity; Chronic midline low back pain without sciatica; Class 3 severe obesity due to excess calories with serious comorbidity and body mass index (BMI) of 50.0 to 59.9 in adult ([facility]); Hair loss; Encounter for immunization Start: 02-12-2024 End: 02-12-2024 Telephone encounter Manas Richter [facility] Telemanagement Comment on above: Anticoagulation Tele phone Fu (Home INR Result ) Start: 02-01-2024 End: 02-01-2024 ambulatory MILKA MAS Facility:[facility] Start: 01-29-2024 End: 01-29-2024 Telephone encounter Manas Richter [facility] Telemanagement Comment on above: Anticoagulation Tele phone Fu (Home INR Result ) Start: 01-15-2024 End: 01-15-2024 Telephone encounter Manas Richter [facility] Telemanagement Comment on above: Anticoagulation Tele phone Fu (Lab INR Result ) Start: 01-02-2024 End: 01-02-2024 ambulatory Milka Mas MD Work Phone: [facility] [place] Comment on above: Pain meds Start: 01-01-2024 End: 01-01-2024 Telephone encounter Jamee Hdz [facility] Telemanagement Comment on above: Anticoagulation Tele phone Fu (Home INR result) Start: 12-19-2023 End: 12-19-2023 Telephone encounter Milka Mas MD Work Phone: [facility] Comment on above: Patient Question Start: 12-18-2023 End: 12-18-2023 Telephone encounter Jessenia Álvarez [facility]ulatory Telemanagement Comment on above: Anticoagulation Tele phone Fu Start: 12-11-2023 Refill Milka fried MD Work Phone: [facility] Comment on above: Refill Request Start: 12-04-2023 Telephone encounter Manas Prakash [facility] Tele[facility] Comment on above: Anticoagulation Tele phone Fu (Home INR Result ) Refill Request Start: 11-20-2023 Telephone encounter [facility]as [facility] Comment on above: Anticoagulation Tele phone Fu (Home INR Result ) Start: 11-14-2023 Telephone encounter Milka hunt MD Work Phone: [facility] Comment on above: indigent meds (Ozemp ic ) Start: 11-14-2023 End: 11-14-2023 ambulatory MILKA MAS Facility:[facility] Start: 11-14-2023 End: 11-14-2023 Patient encounter procedure Milka Mas MD Work Phone: [facility] Comment on above: Cellulitis of left l ower leg (Primary Dx); Type 2 diabetes mellitus without complication, without long-term current use of insulin ([facility]); Embolism and thrombosis ([facility]); Essential hypertension, benign; Mixed hyperlipidemia; Chronic midline low back pain without sciatica; Right knee pain, unspecified chronicity; Leg swelling; Class 3 severe obesity due to excess calories with serious comorbidity and body mass index (BMI) of 50.0 to 59.9 in adult ([facility]) Start: 11-12-2023 Refill Byron Jolley APRN.CNP Work Phone: [facility] Comment on above: Refill Request Start: 11-11-2023 End: 11-11-2023 Emergency department patient visit Milka Mas Facility:[facility] Start: 11-09-2023 End: 11-09-2023 ambulatory MILKA MAS Facility:[facility] Start: 11-06-2023 Telephone encounter Dori Pepper [facility] Tele[facility] Comment on above: Anticoagulation Tele phone Fu (Home INR ) Start: 10-23-2023 Telephone encounter [facility] Comment on above: Anticoagulation Tele phone Fu (Home INR Result ) Start: 10-20-2023 ambulatory Milka fried MD Work Phone: [facility] [place] Comment on above: Ozempic Start: 10-16-2023 Telephone encounter [facility] Comment on above: Anticoagulation Tele phone Fu (Home INR Result ) Start: 10-10-2023 ambulatory [facility] Provider [facility] paola Powers Comment on above: forms from [employer] Start: 10-10-2023 E-mail encounter fro m caregiver [facility] Provider [facility] [place] Start: 10-09-2023 Telephone encounter Milka hunt MD Work Phone: [facility] [place] Comment on above: dosage change form Anticoagulation Tele phone Fu (Home INR Result ) Start: 10-02-2023 Telephone encounter [facility] Comment on above: Anticoagulation Tele phone Fu (Home INR Result ) Start: 09-26-2023 Telephone encounter Jovanny Peralta [facility] Ambulatory Telemanagement Comment on above: Anticoagulation Tele phone Fu (Home INR result) Start: 09-22-2023 Refill Byron Jolley APRN.REFINERY OPERATOR [employer] Work Phone: [facility] [place] Comment on above: Refill Request Start: 09-18-2023 ambulatory Milka fried MD Work Phone: [facility] [place] Comment on above: Ozempic Start: 09-11-2023 Telephone encounter [facility] Comment on above: Anticoagulation Tele phone Fu (Home INR Result ) Start: 09-10-2023 Telephone encounter Lizette Esposito APRN.REFINERY OPERATOR [employer] Work Phone: [facility] Comment on above: Results Start: 09-07-2023 End: 09-07-2023 Patient encounter procedure Lizette Akbar APRN.REFINERY OPERATOR [employer] Work Phone: [facility] Comment on above: Skin infection (Prim giselle Dx) Start: 09-07-2023 ambulatory Milka fried MD Work Phone: [facility] Comment on above: Belly button Start: 08-28-2023 Telephone encounter Dori Prakash [facility] Comment on above: Anticoagulation Tele phone Fu (Home INR results ) Start: 08-15-2023 End: 08-15-2023 Patient encounter procedure Milka Mas MD Work Phone: [facility] Comment on above: Type 2 diabetes torres itus without complication, without long- term current use of insulin (HCC) (Primary Dx); Encounter for screening mammogram for malignant neoplasm of breast; Essential hypertension, benign; Chronic midline low back pain without sciatica; Class 3 severe obesity due to excess calories with serious comorbidity and body mass index (BMI) of 50.0 to 59.9 in adult (HCC); Hx of [facility] use of blood thinners Start: 08-14-2023 Telephone encounter [facility] Comment on above: Anticoagulation Tele phone Fu (Lab INR Result ) Start: 08-11-2023 Telephone encounter Milka hunt MD Work Phone: [facility] Comment on above: Medication Problem Start: 07-31-2023 Telephone encounter [facility] Tele[facility] Comment on above: Anticoagulation Tele phone Fu (Home INR Result ) Start: 07-17-2023 Telephone encounter Jamee miller [facility] Comment on above: Anticoagulation Tele phone Fu (Home INR) Start: 07-04-2023 Telephone encounter Milka hunt MD Work Phone: [facility] Comment on above: pt assistance meds ( Ozempic) Start: 07-03-2023 Telephone encounter [facility]as Prakash [facility] Tele[facility] Comment on above: Anticoagulation Tele phone Fu (Home INR Result ) Start: 06-28-2023 End: 06-28-2023 ambulatory [facility] Work Phone: Start: 06-28-2023 End: 06-28-2023 Patient encounter procedure [facility]-Laboratory, Specimen Work Phone: Start: 06-28-2023 End: 06-28-2023 [facility] Start: 06-19-2023 Telephone encounter Manas Prakash [facility] Telemanagement Comment on above: Anticoagulation Tele phone Fu (Home INR Result ) Start: 06-12-2023 Telephone encounter Manas Prakash [facility] Tele[facility] Comment on above: Anticoagulation Tele phone Fu (Home INR Result ) Start: 06-09-2023 Telephone encounter Milka hunt MD Work Phone: [facility] Start: 06-03-2023 Refill Byron Elfego TOURIST CABIN KEEPER.REFINERY OPERATOR [employer] Work Phone: [facility] Comment on above: Refill Request Start: 05-17-2023 ambulatory MILKA Pruitt STARLA [facility] ity:[facility] Start: 05-17-2023 End: 05-17-2023 Subsequent hospital visit by physician Radio Cobb [facility] Work Phone: Radiology Comment on above: S/P arthroscopy of l eft shoulder [Z98.890] Start: 04-17-2023 End: 04-17-2023 Subsequent hospital visit by physician [facility] Work Phone: [facility] Comment on above: Acute cough [R05.1] Start: 04-04-2023 Telephone encounter Milka hunt MD Work Phone: [facility] Comment on above: Patient Assistance ( Ozempic) Start: 03-31-2023 Refill Byron Elfego TOURIST CABIN KEEPER.REFINERY OPERATOR [employer] Work Phone: [facility] Comment on above: Refill Request Start: 03-30-2023 End: 03-30-2023 Admission to same day surgery center Blaise Mcginnis PT Work Phone: [facility] Comment on above: S/P shoulder surgery (Primary Dx) Start: 03-30-2023 End: 03-30-2023 ambulatory Blaise Golias PT Work Phone: [facility] Start: 03-20-2023 Telephone encounter [facility] Tele[facility] Comment on above: Anticoagulation Tele phone Fu (Home INR Result ) Start: 03-20-2023 End: 03-20-2023 Admission to same day surgery center Blaise Golias PT Work Phone: [facility] Comment on above: S/P shoulder surgery (Primary Dx) Start: 03-20-2023 End: 03-20-2023 ambulatory Blaise Golias PT Work Phone: [facility] Start: 03-16-2023 End: 03-16-2023 Admission to same day surgery center Blaise Golias PT Work Phone: [facility] Comment on above: S/P shoulder surgery (Primary Dx) Start: 03-16-2023 End: 03-16-2023 ambulatory Blaise Golias PT Work Phone: [facility] Start: 03-15-2023 Telephone encounter Milka hunt MD Work Phone: [facility] Comment on above: Statin therapy Start: 03-13-2023 End: 03-13-2023 Patient encounter procedure Lizette Akbar APRN.REFINERY OPERATOR [employer] Work Phone: [place] [facility] Comment on above: Hematuria, unspecifi ed type (Primary Dx) Start: 03-09-2023 End: 03-09-2023 Admission to same day surgery center Blaise Golias PT Work Phone: [facility] Comment on above: S/P shoulder surgery (Primary Dx) Start: 03-09-2023 End: 03-09-2023 ambulatory Blaise Golias PT Work Phone: [facility] Start: 03-06-2023 End: 03-06-2023 Admission to same day surgery center Blaise Golias PT Work Phone: [facility] Comment on above: S/P shoulder surgery (Primary Dx) Start: 03-06-2023 End: 03-06-2023 ambulatory Bla[facility] Phone: [facility] Start: 03-03-2023 Telephone encounter Ruby Matos [facility] Ambulatory Telemanagement Comment on above: Anticoagulation Tele phone Fu (INR Home Test Result) Start: 02-27-2023 End: 02-27-2023 Admission to same day surgery center Blaise Golias PT Work Phone: [facility] Comment on above: S/P shoulder surgery (Primary Dx) Start: 02-27-2023 End: 02-27-2023 ambulatory Blaise Golias PT Work Phone: [facility] Start: 02-24-2023 Telephone encounter Stacy Thackercurtis alaniz [facility] Work Phone: [facility] Comment on above: Anticoagulation Tele phone Fu Start: 02-21-2023 End: 02-21-2023 ambulatory Blaise Golias PT Work Phone: [facility] Comment on above: Steroids Start: 02-21-2023 End: 02-21-2023 Admission to same day surgery center Blaise Golias PT Work Phone: [facility] Comment on above: S/P shoulder surgery (Primary Dx) Start: 02-14-2023 End: 02-14-2023 Admission to same day surgery center Blaise Golias PT Work Phone: [facility] Comment on above: S/P shoulder surgery (Primary Dx) Start: 02-14-2023 End: 02-14-2023 ambulatory Blaise Golias PT [facility] Phone: [facility] Start: 02-10-2023 Telephone encounter Ruby Matos [facility] Ambulatory Telemanagement Comment on above: Anticoagulation Tele phone Fu (INR Home Test Result) Start: 02-09-2023 End: 02-09-2023 Admission to same day surgery center Blaise Golias PT Work Phone: [facility] Comment on above: S/P shoulder surgery (Primary Dx) Start: 02-09-2023 End: 02-09-2023 ambulatory Blaise Golias PT Work Phone: [facility] [employer] Start: 02-08-2023 End: 02-08-2023 Patient encounter procedure Lisette Siegel Jocelyn DO Work Phone: Orthopaedics Comment on above: S/P arthroscopy of l eft shoulder (Primary Dx); Biceps tendinitis of left upper extremity Start: 02-07-2023 End: 02-07-2023 Patient encounter procedure Milka Mas MD Work Phone: [facility] [place] Comment on above: Type 2 diabetes torres itus without complication, without long- term current use of insulin (HCC) (Primary Dx); Essential hypertension, benign; Embolism and thrombosis ([facility]); Inflammatory polyarthropathy ([facility]); Class 3 severe obesity due to excess calories with serious comorbidity and body mass index (BMI) of 50.0 to 59.9 in adult ([facility]); Leg swelling; Chronic midline low back pain without sciatica; Need for influenza vaccination; Need for vaccination; BENIGN HYPERTENSION Start: 01-30-2023 End: 01-30-2023 Admission to same day surgery center [facility] AGRICULTURAL MECHANIC Work Phone: [facility] Comment on above: S/P shoulder surgery (Primary Dx) Start: 01-30-2023 End: 01-30-2023 ambulatory Natalya Farmacias [employer]GRICULTURAL MECHANIC Work Phone: [facility] [employer] Start: 2023 End: 2023 Admission to same day surgery center [employer] Work Phone: [facility] Comment on above: S/P shoulder surgery (Primary Dx) Start: 2023 End: 2023 ambulatory Blaise Golias PT Work Phone: [facility] [employer] Start: 01-23-2023 End: 01-23-2023 Admission to same day surgery center [facility] AGRICULTURAL MECHANIC Work Phone: [facility] Comment on above: S/P shoulder surgery (Primary Dx) Start: 01-23-2023 End: 01-23-2023 ambulatory Natalya Kaschristian AGRICULTURAL MECHANIC Work Phone: [facility] Start: 01-19-2023 End: 01-19-2023 Admission to same day surgery center Blaise Mcginnis PT Work Phone: [facility] Comment on above: S/P shoulder surgery (Primary Dx) Start: 01-19-2023 End: 01-19-2023 ambulatory Blaise Golias PT Work Phone: [facility] Start: 01-13-2023 End: 01-13-2023 Admission to same day surgery center [facility] AGRICULTURAL MECHANIC Work Phone: [facility] Comment on above: S/P shoulder surgery (Primary Dx) Start: 01-13-2023 End: 01-13-2023 ambulatory Natalya Mosquera AGRICULTURAL MECHANIC Work Phone: [facility] Start: 01-11-2023 Telephone encounter [facility] Amb[facility] Telemanagement Comment on above: Anticoagulation Tele phone Fu (Home INR result ) Start: 01-09-2023 End: 01-09-2023 Patient encounter procedure Austyn Arango PA-C Work Phone: Orthopaedics Comment on above: S/P arthroscopy of l eft shoulder (Primary Dx) Start: 01-06-2023 Telephone encounter Milka hunt MD Work Phone: [facility] [place] Comment on above: Patient Assistance ( Ozempic) Start: 12-30-2022 End: 12-30-2022 Admission to same day surgery center Carli Skelton PT Work Phone: [facility] Comment on above: S/P shoulder surgery (Primary Dx) Start: 12-30-2022 End: 12-30-2022 ambulatory [facility] Skelton PT [facility] Start: 12-29-2022 End: 12-29-2022 ambulatory LISETTE BANKS Facility:[facility] Start: 12-28-2022 Telephone encounter [facility] Amb[facility] Telemanagement Comment on above: Anticoagulation Tele phone Fu (Home INR result expected) Start: 12-23-2022 Orders Only AnastasiaChristal Banks DO Work Phone: Orthopaedics Start: 12-22-2022 Telephone encounter Silva Parson PA-C Work Phone: Orthopaedics Start: 12-22-2022 ambulatory MILKA Shankar ity:[facility] Start: 12-22-2022 End: 12-22-2022 Subsequent hospital visit by physician Lisette Banks DO Work Phone: [facility] Surgery Comment on above: Biceps tendinitis of left upper extremity [M75.22] Start: 12-08-2022 ambulatory Milka fried MD Work Phone: [facility] [place] Comment on above: Handicap placard Start: 12-07-2022 ambulatory Milka fried MD Work Phone: [facility] [place] Start: 12-06-2022 ambulatory Milka fried MD Work Phone: Family [facility] Comment on above: Diflucan Start: 12-05-2022 End: 12-05-2022 Admission to establishment [facility] [place] 1 Work Phone: [facility] Start: 12-05-2022 End: 12-05-2022 ambulatory Pac [place] 1 Work Phone: Pre Anesthesia Comment on above: Pre-operative examin ation (Primary Dx); Embolism and thrombosis (HCC); Essential hypertension, benign; Former smoker; Irritable bowel syndrome, unspecified type; Leg swelling; Restless legs syndrome (RLS); Status post total right knee replacement; Chronic midline low back pain without sciatica; Type 2 diabetes mellitus without complication, without long-term current use of insulin (HCC); Class 3 severe obesity due to excess calories with serious comorbidity and body mass index (BMI) of 50.0 to 59.9 in adult (HCC) Start: 12-05-2022 End: 12-05-2022 Preprocedural examination done [facility] [facility] Work Phone: [facility] Work Phone: Start: 11-30-2022 ambulatory Milka fried MD Work Phone: Family [facility] Comment on above: Meds Start: 11-30-2022 Telephone encounter Lisette Banks DO Work Phone: [facility] [place] Comment on above: Patient Question Anticoagulation Tele phone Fu (Home INR result ) Start: 11-26-2022 End: 11-26-2022 Patient encounter procedure Jorge Doherty MD Work Phone: [facility] Comment on above: Infected abrasion of skin of right hand (Primary Dx) Refill Request ([place]) Start: 11-23-2022 Telephone encounter [facility] Ambulatory Telemanagement Comment on above: Anticoagulation Tele phone Fu (Mayela-Procedural Anticoagulation ) Start: 11-16-2022 End: 11-16-2022 Patient encounter procedure Lisette Banks DO Work Phone: Orthopaedics Comment on above: Biceps tendinitis of left upper extremity (Primary Dx); Acute pain of left shoulder; Bursitis of left shoulder; Shoulder impingement; Chronic left shoulder pain; S/P shoulder surgery; Adhesive capsulitis of left shoulder Start: 11-09-2022 Telephone encounter [facility] Telemanagement Comment on above: Anticoagulation Tele phone Fu (Home INR result) Start: 10-28-2022 End: 10-28-2022 Patient encounter procedure Katharine Paul MD Work Phone: [facility] [place] Comment on above: Biceps tendinitis of left upper extremity (Primary Dx) Start: 10-19-2022 Refill Byron Elfego TOURIST CABIN KEEPER.REFINERY OPERATOR [employer] Work Phone: Family [facility] Comment on above: Refill Request Start: 10-19-2022 Refill Byron Elfego TOURIST CABIN KEEPER.REFINERY OPERATOR [employer] Work Phone: [facility] Comment on above: Refill Request Start: 10-13-2022 Telephone encounter Stacy Becerra corbin [facility] Work Phone: [facility] Comment on above: Anticoagulation Tele phone Fu Start: 10-06-2022 Telephone encounter Jamee miller [facility] Ambulatory Telemanagement Comment on above: Anticoagulation Tele phone Fu (Home INR) Start: 09-28-2022 Telephone encounter [facility] Amb[facility] Telemanagement Comment on above: Anticoagulation Tele phone Fu (Home INR result) Refill Request Start: 08-31-2022 End: 08-31-2022 Patient encounter procedure Lisette Banks DO Work Phone: Orthopaedics Comment on above: Acute pain of left s randi (Primary Dx); Bursitis of left shoulder; Biceps tendinitis of left upper extremity Start: 08-30-2022 Telephone encounter Jovanny Peralta [facility] P harmacy Ambulatory Telemanagement Comment on above: Anticoagulation Tele phone Fu (Home INR result) Start: 08-25-2022 ambulatory Milka fried MD Work Phone: [facility] [facility] Comment [facility]: Meds Start: 08-22-2022 End: 08-22-2022 Subsequent hospital visit by physician Mri [facility] (I-Stat/1.5t) Work Phone: Radiology Comment on above: Shoulder impingement [M25.819] Start: 08-11-2022 Telephone encounter [place] Field [facility] Comment on above: Anticoagulation Tele phone Fu (Home INR in process) Start: 07-29-2022 ambulatory MILKA MAS [facility] [place] Start: 07-29-2022 End: 07-29-2022 Subsequent hospital visit by physician [facility] Work Phone: Radiology Comment on above: Shoulder impingement [M25.819] Start: 07-28-2022 Telephone encounter Jamee miller [facility] Ambulatory Telemanagement Comment on above: Anticoagulation Tele phone Fu (Home INR) Erroneous encounter- disregard Start: 07-26-2022 Telephone encounter Jovanny Fabian [facility] P harmacy Ambulatory Telemanagement Comment on above: Anticoagulation Tele phone Fu (Home INR result) Start: 07-26-2022 End: 07-26-2022 Patient encounter procedure Lisa Reynolds [place] Work Phone: [facility] Comment on above: Throat pain (Primary Dx); Non-recurrent acute suppurative otitis media of right ear without spontaneous rupture of tympanic membrane Start: 07-19-2022 End: 07-19-2022 Patient encounter procedure Milka Mas MD Work Phone: [facility] Comment on above: Chronic midline low back pain without sciatica (Primary Dx); Bilateral hip pain; Tendinitis of left shoulder; Type 2 diabetes mellitus without complication, without long-term current use of insulin (HCC); Essential hypertension, benign; Mixed hyperlipidemia; NELSON (generalized anxiety disorder); Embolism and thrombosis ([facility]); Skin irritation Start: 07-15-2022 End: 07-15-2022 ambulatory [facility] Work Phone: Start: 07-15-2022 End: 07-15-2022 Discharged Recurring [facility]-Physical Therapy Start: 07-07-2022 Telephone encounter Jamee miller [facility] Ambulatory Telemanagement Comment on above: Anticoagulation Tele phone Fu (Home INR) Start: 06-29-2022 Non-patient / Non-visit [facility] Start: 06-29-2022 End: 07-29-2022 ambulatory [facility] Work Phone: Start: 06-29-2022 End: 07-29-2022 Discharged Recurring [facility]-Wound Healing Center Start: 06-29-2022 [facility] Start: 06-28-2022 Registered Recurring [facility]-Physical Therapy Start: 06-24-2022 Telephone encounter Ruby Matos [facility] P harmacy Ambulatory Telemanagement Comment on above: Anticoagulation Tele phone Fu (INR Home Test Result) Start: 06-22-2022 Telephone encounter [facility] Ambulatory Telemanagement Comment on above: Anticoagulation Tele phone Fu (Home INR expected) Start: 06-15-2022 Non-patient / Non-visit [facility] Start: 06-15-2022 End: 06-28-2022 ambulatory [facility] Work Phone: Start: 06-15-2022 End: 06-28-2022 [facility]charged [facility] Start: 06-09-2022 End: 06-09-2022 Patient encounter procedure Lisette Banks DO Work Phone: Orthopaedics Comment on above: Adhesive capsulitis of left shoulder (Primary Dx) Start: 06-08-2022 Telephone encounter D[facility] Comment on above: Anticoagulation Tele phone Fu (Home INR result ) Start: 06-01-2022 Non-patient / Non-visit [facility] Start: 05-23-2022 Telephone encounter Manas [facility] Ambulatory Telemanagement Comment on above: Anticoagulation Tele phone Fu (Home INR Result ) Start: 05-18-2022 Non-patient / Non-visit [facility] Start: 05-18-2022 End: 05-31-2022 Discharged [facility] Start: 05-16-2022 Refill Byron Jolley APRN.CNP Work Phone: [facility] Comment on above: Refill Request Start: 05-10-2022 Telephone encounter Austyn guevara MD Work Phone: General Surgery Comment on above: Appointment Start: 05-09-2022 Telephone encounter [facility] Ambulatory Telemanagement Comment on above: Anticoagulation Tele phone Fu (Home INR Result ) Start: 04-27-2022 ambulatory Milka fried MD Work Phone: [facility] Comment on above: Cyst Start: 04-22-2022 Telephone encounter Ruby Matos [facility] Gareth harmacy Ambulatory Telemanagement Comment on above: Anticoagulation Tele phone Fu (INR Home Test Result) Start: 04-07-2022 ambulatory Milka fried MD Work Phone: [facility] [place] Comment on above: Thrush Start: 04-06-2022 ambulatory Milka fried MD Work Phone: [facility] Comment on above: Sore tongue Start: 04-04-2022 Telephone encounter [facility] Ambulatory Telemanagement Comment on above: Anticoagulation Tele phone Fu (Home INR Result ) Start: 03-29-2022 End: 03-29-2022 Patient encounter procedure Micah Castillo APRN.REFINERY OPERATOR [employer] Work Phone: [place] [facility] Comment on above: ETD (Eustachian tube dysfunction), right (Primary Dx) Start: 03-21-2022 End: 03-21-2022 Patient encounter procedure Milka Mas MD Work Phone: [facility] [place] Comment on above: Boil of groin (Prima ry Dx); Dizziness Start: 03-21-2022 ambulatory Milka fried MD Work Phone: [facility] Comment on above: Cyst Start: 03-21-2022 Telephone encounter [facility] Ambulatory Telemanagement Comment on above: Anticoagulation Tele phone Fu (Home INR Result) Start: 03-16-2022 End: 03-16-2022 ambulatory Blaise Mcginnis PT Work Phone: [facility] Comment on above: Bursitis of left lencho ulder Start: 03-11-2022 End: 03-11-2022 Subsequent hospital visit by physician [facility] [place] Work Phone: Radiology Comment on above: Pain in right foot [ M79.671] Start: 03-10-2022 End: 03-10-2022 Patient encounter procedure AnastasiaChristal Banks DO Work Phone: Orthopaedics Comment on above: Bursitis of left lencho ulder (Primary Dx); Pain in right foot Start: 03-06-2022 Refill Byron Jolley APRN.REFINERY OPERATOR [employer] Work Phone: [facility] Comment on above: Refill Request Start: 02-28-2022 Telephone encounter [facility] Ambulatory Telemanagement Comment on above: Anticoagulation (Tg e INR) Start: 02-14-2022 ambulatory Melissa Pavan Harrington MA [facility] [place] Comment on above: Population Health Na vigation Outreach ([employer] Care Gaps ) Tylenol #3 Start: 02-07-2022 Telephone encounter [facility] Ambulatory Telemanagement Comment on above: Anticoagulation Tele phone Fu (Home INR Result) Start: 02-04-2022 End: 02-04-2022 Patient encounter procedure Lisa Arboleda PA-C Work Phone: Rheumatology Comment on above: Pain in joint, multi ple sites (Primary Dx); DDD (degenerative disc disease), lumbar; Inflammatory polyarthropathy (HCC) Start: 01-24-2022 Telephone encounter [facility] Amb[facility] Telemanagement Comment on above: Anticoagulation Tele phone Fu Start: 01-18-2022 End: 01-18-2022 Patient encounter procedure Milka Mas MD Work Phone: [facility] Comment on above: Type 2 diabetes torres itus without complication, without long- term current use of insulin (HCC) (Primary Dx); Need for influenza vaccination; Essential hypertension, benign; Class 3 severe obesity due to excess calories with serious comorbidity and body mass index (BMI) of 50.0 to 59.9 in adult (HCC); FPC (current) use of anticoagulants; Skin irritation; NELSON (generalized anxiety disorder); Sleeping difficulty Start: 01-05-2022 ambulatory Milka fried MD Work Phone: [facility] [place] Start: 01-04-2022 End: 01-04-2022 ambulatory Blaise Golias PT Work Phone: [facility] Comment on above: Acute pain of left s houlder (Primary Dx); Post-operative pain; Bursitis of left shoulder; Tendinitis of left shoulder Start: 12-30-2021 End: 12-30-2021 ambulatory Blaise Golias PT Work Phone: [facility] Comment on above: Acute pain of left s houlder (Primary Dx); Post-operative pain; Bursitis of left shoulder; Tendinitis of left shoulder Start: 12-23-2021 Refill Milka fried MD Work Phone: [facility] Comment on above: Refill Request Start: 12-17-2021 End: 12-17-2021 ambulatory Blaise Golias PT Work Phone: [facility] Comment on above: Acute pain of left s houlder (Primary Dx); Post-operative pain; Bursitis of left shoulder; Tendinitis of left shoulder Start: 12-14-2021 End: 12-14-2021 ambulatory Blaise Golias PT Work Phone: [facility] Comment on above: Acute pain of left s houlder (Primary Dx); Post-operative pain; Bursitis of left shoulder; Tendinitis of left shoulder Start: 12-09-2021 End: 12-09-2021 ambulatory Mandy Wheeler AGRICULTURAL MECHANIC Work Phone: [facility] Comment on above: Acute pain of left s houlder (Primary Dx); Post-operative pain; Bursitis of left shoulder; Tendinitis of left shoulder Start: 12-01-2021 End: 12-01-2021 Patient encounter procedure Lisette Banks DO Work Phone: Orthopaedics Comment on above: Inflammatory polyart hropathy (HCC) (Primary Dx); Acute pain of left shoulder; Bursitis of left shoulder; S/P shoulder surgery Start: 11-26-2021 Refill Milka fried MD Work Phone: [facility] Comment on above: Refill Request Start: 11-25-2021 End: 11-25-2021 ambulatory Blaise Golias PT Work Phone: [facility] Comment on above: Acute pain of left s houlder (Primary Dx); Post-operative pain; Bursitis of left shoulder; Tendinitis of left shoulder Start: 11-23-2021 Telephone encounter Jessenia Álvarez [facility] Ambulatory Telemanagement Comment on above: Anticoagulation Tele phone Fu (Home INR ) Start: 11-23-2021 End: 11-23-2021 ambulatory Blaise Golias PT Work Phone: [facility] Comment on above: Acute pain of left s houlder (Primary Dx); Post-operative pain; Bursitis of left shoulder; Tendinitis of left shoulder Start: 11-18-2021 End: 11-18-2021 ambulatory Blaise Golias PT Work Phone: [facility] Comment on above: Acute pain of left s houlder (Primary Dx); Post-operative pain; Bursitis of left shoulder; Tendinitis of left shoulder Start: 11-11-2021 End: 11-11-2021 ambulatory Blaise Golias PT Work Phone: [facility] Comment on above: Acute pain of left s houlder (Primary Dx); Post-operative pain; Bursitis of left shoulder; Tendinitis of left shoulder Start: 11-09-2021 Telephone encounter Jovanny Peralta RP Gareth roblero Ambulatory Telemanagement Comment on above: Anticoagulation Tele phone Fu (Home INR result) Start: 11-09-2021 End: 11-09-2021 ambulatory Mandy Wheeler PTA Work Phone: [facility] Comment on above: Acute pain of left s houlder (Primary Dx); Post-operative pain; Bursitis of left shoulder; Tendinitis of left shoulder Start: 11-04-2021 End: 11-04-2021 ambulatory Blaies Golias PT Work Phone: [facility] Comment on above: Acute pain of left s houlder (Primary Dx); Post-operative pain; Bursitis of left shoulder; Tendinitis of left shoulder Start: 11-02-2021 End: 11-02-2021 ambulatory Blaise Golias PT Work Phone: [facility] Comment on above: Acute pain of left s houlder (Primary Dx); Post-operative pain; Bursitis of left shoulder; Tendinitis of left shoulder Start: 10-27-2021 End: 10-27-2021 ambulatory Mandy Wheeler AGRICULTURAL MECHANIC Work Phone: [facility] Comment on above: Acute pain of left s houlder (Primary Dx); Post-operative pain; Bursitis of left shoulder; Tendinitis of left shoulder Start: 10-25-2021 End: 10-25-2021 ambulatory Mandy Wheeler AGRICULTURAL MECHANIC Work Phone: [facility] Comment on above: Acute pain of left s houlder (Primary Dx); Post-operative pain; Bursitis of left shoulder; Tendinitis of left shoulder Start: 10-20-2021 ambulatory Lisette Banks DO Work Phone: Orthopaedics Comment on above: Meds Start: 10-20-2021 End: 10-20-2021 Patient encounter procedure Lisette Banks DO Work Phone: Orthopaedics Comment on above: Acute pain of left s homeera (Primary Dx); Traumatic complete tear of left rotator cuff, subsequent encounter; Postoperative pain Start: 10-19-2021 Telephone encounter Jovanny Peralta [facility] Gareth harmacy Ambulatory Telemanagement Comment on above: Anticoagulation Tele phone Fu (Home INR) Start: 10-18-2021 Refill Byron Jolley APRN.REFINERY OPERATOR [employer] Work Phone: [facility] Comment on above: Refill Request Start: 10-18-2021 End: 10-18-2021 ambulatory Mandy Johnsonter AGRICULTURAL MECHANIC Work Phone: [facility] Comment on above: Acute pain of left s homeera (Primary Dx); Post-operative pain; Bursitis of left shoulder; Tendinitis of left shoulder Start: 10-05-2021 Refill Milka fried MD Work Phone: [facility] Comment on above: Refill Request Start: 10-04-2021 End: 10-04-2021 ambulatory Blaise Golias PT Work Phone: [facility] Comment on above: Acute pain of left s homeera (Primary Dx); Post-operative pain; Bursitis of left shoulder; Tendinitis of left shoulder Start: 09-30-2021 Refill Byron Jolley APRN.REFINERY OPERATOR [employer] Work Phone: [facility] Comment on above: Refill Request Start: 09-29-2021 End: 09-29-2021 ambulatory Blaise Golias PT Work Phone: [facility] Comment on above: Acute pain of left s houlder (Primary Dx); Post-operative pain; Bursitis of left shoulder; Tendinitis of left shoulder Start: 09-24-2021 End: 09-24-2021 ambulatory Blaise Golias PT Work Phone: [facility] Comment on above: Acute pain of left s houlder (Primary Dx); Post-operative pain; Bursitis of left shoulder; Tendinitis of left shoulder Start: 09-17-2021 ambulatory Milka fried MD Work Phone: [facility] Comment on above: Meds Start: 09-17-2021 Telephone encounter Rubybeth Servin harmacy Ambulatory Telemanagement Comment on above: Anticoagulation Tele phone Fu (INR Home Test Result) Refill Request Start: 09-16-2021 End: 09-16-2021 ambulatory Blaise Golias PT Work Phone: [facility] Comment on above: Postoperative pain; Chronic left shoulder pain; Bursitis of left shoulder; Tendinitis of left shoulder; Rotator cuff syndrome of right shoulder; Post-operative pain; Acute pain of left shoulder Start: 09-07-2021 ambulatory Milka fried MD Work Phone: [facility] Comment on above: Meds Start: 09-07-2021 Telephone encounter Jovanny Servin harmacy Ambulatory Telemanagement Comment on above: Anticoagulation Tele phone Fu Start: 08-10-2021 Telephone encounter Jovanny Servin harmacy Ambulatory Telemanagement Comment on above: Anticoagulation Tele phone Fu (Home INR result) Start: 08-09-2021 Refill Milka fried MD Work Phone: [facility] Comment on above: Refill Request Start: 08-06-2021 Telephone encounter Ruchi Paul APRN.REFINERY OPERATOR [employer] Work Phone: Pre Anesthesia Comment on above: Pre-op AC instructio ns Start: 07-29-2021 Refill Byron Jolley APRN.REFINERY OPERATOR [employer] Work Phone: [facility] Comment on above: Refill Request Start: 07-27-2021 Orders Only Lisette Chowjonnyjocelynn DO Work Phone: Orthopaedics Comment on above: Bursitis of left lencho ulder (Primary Dx); Tendinitis of left shoulder Anticoagulation Tele phone Fu (Home INR rseult) Start: 07-23-2021 End: 07-23-2021 Patient encounter procedure Lisette Banks DO Work Phone: Orthopaedics Comment on above: Chronic left shoulde r pain (Primary Dx); Bursitis of left shoulder; Tendinitis of left shoulder Start: 10-23-2017 Ambulatory CASEY HUDSON Facility :[facility] Start: 02-22-2017 End: 02-22-2017 Ambulatory CASEY HUDSON [facility] Start: 03-23-2009 Patient encounter status Lisette Banks DO Work Phone: [facility] Work Phone: Procedures Date Procedure Procedure Detail Performing Clinician Start: 09-30-2024 End: 09-30-2024 Arthrocentesis aspir&/inj major jt/bursa w/us Daya Castillo DO Work Phone: Start: 07-31-2024 Us breast uni real t mary with image limited Milka Mas MD Work Phone: Start: 07-18-2024 Adult depression scr eening assessment Milka Mas MD Work Phone: Start: 07-10-2024 Lipid 1996 panel - S daphnie or Plasma Milka Mas MD Work Phone: Start: 08-15-2023 Adult depression scr eening assessment Manas Richter [facility] Start: 06-28-2023 Investigation of transfusion reaction Start: 05-17-2023 Radex shoulder compl ete minimum 2 views AnastasiaChristal Banks DO Work Phone: Start: 04-17-2023 Radiologic exam ches t 2 views Byron Jolley TOURIST CABIN KEEPER.REFINERY OPERATOR [employer] Work Phone: Start: 03-13-2023 Urnls dip stick/tabl et rgnt auto w/o microscopy Jorge Doherty MD Work Phone: Start: 02-07-2023 INFLUENZA VACCINE, A GE 6 MO - 64 YR, QUADRIVALENT (AFLURIA, FLULAVAL, FLUZONE) Milka Mas MD Work Phone: Start: 10-28-2022 Injection 1 tendon sheath/ligament aponeurosis Katharine Paul MD Work Phone: Start: 10-28-2022 Us guidance needle placement img s&i Katharine Paul MD Work Phone: Start: 10-28-2022 Arthrocentesis aspir &/inj major jt/bursa w/us Katharine Paul MD Work Phone: Start: 08-22-2022 Mri any jt upper ext remity w/o contrast matrl Lisette Banks DO Work Phone: Start: 07-29-2022 Radex shoulder compl ete minimum 2 views Lisette Banks DO Work Phone: Start: 07-28-2022 Prothrombin time Ccf Pr ovider Start: 07-26-2022 STREP A MOLECULAR (POC) Lisa Reynolds APRN.REFINERY OPERATOR [employer] Work Phone: Start: 03-20-2022 Prothrombin time C[facility] Pr ovider Start: 03-11-2022 Radex foot complete minimum 3 views Lisette Banks DO Work Phone: Start: 01-23-2022 Prothrombin time Ccf Pr ovider Start: 01-18-2022 INFLUENZA VACCINE QUADRIVALENT 6 MO - 64 YRS IM Milka Mas MD Work Phone: Start: 07-28-2021 Prothrombin time Ccf Pr ovider Start: 12-24-2020 Adult depression scr eening assessment Lisette Banks DO Work Phone: Start: 11-30-2020 Mammography Lisette gallagher DO Work Phone: Start: 2017 End: 02-07-2017 Arthrocentesis aspir&/inj small jt/bursa w/o us Lisette Banks Work Phone: Start: 01-21-2015 Colonoscopy Lisette Gera gallagher DO Work Phone: Anaerobic microbial culture Investigation of transfusion reaction Microbial culture, routine Plan of Treatment Date Care Activity Detail Author Start: 07-10-2029 Lipid panel Lipid Screening [facility] Start: 07-11-2027 Diabetes Screening Diabetes Screenin g [facility] Start: 07-18-2025 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 andrea Disease Visit Annual PCP Team Chronic Disease Visit [facility] Start: 07-18-2025 Anxiety Screening Anxiety Screening [facility] Start: 07-18-2025 Depression Screening Depression Scre ening [facility] Start: 07-18-2025 Screening for malign ant neoplasm of breast Mammogram Screening [facility] Start: 07-10-2025 Hepatitis B surface antibody level LDL Cholesterol [facility] Start: 02-14-2025 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 andrea Disease Visit Annual PCP Team Chronic Disease Visit [facility] Start: 02-14-2025 Covid-19 Vaccine () Covid-19 Vaccine () [facility] Comment on above: Postponed from 12/30 (Declined at this time) Start: 01-31-2025 Hepatitis B screening Urine Albumin:Creatinine Ratio [facility] Start: 01-31-2025 Hepatitis B surface antibody level LDL Cholesterol [facility] Start: 01-21-2025 Colonoscopy COLONOSCOPY [facility] Start: 01-21-2025 COLORECTAL CANCER SCREENING COLORECTAL CANCER SCREENING [facility] Start: 01-21-2025 Screening for malign ant neoplasm of colon [facility] Start: 01-21-2025 End: 01-21-2025 Patient encounter procedure 01/21/2025 9:40 AM EDT Office Visit [facility] [address] [place] [id number] Milka Mas MD [address] [place] [id number] 6 mo f/u Family [facility] Comment on above: 6 mo f/u Start: 01-18-2025 End: 04-19-2025 Comprehensive metabolic 2000 panel - Serum or Plasma COMPREHENSIVE METABOLIC PANEL Lab Routine Type 2 diabetes mellitus without complication, without long-term current use of insulin (HCC) Essential hypertension, benign Expected: 01/18/2025 (Approximate), Expires: 04/19/2025 [facility] Work Phone: Comment on above: Expected: 01/18/2025 (Approximate), Expires: 04/19/2025 Start: 01-18-2025 End: 04-19-2025 Hemoglobin A1c in Blood HEMOGLOBIN A1C Lab Routine Type 2 diabetes mellitus without complication, without long-term current use of insulin (HCC) Expected: 01/18/2025 (Approximate), Expires: 04/19/2025 [facility] Comment on above: Expected: 01/18/2025 (Approximate), Expires: 04/19/2025 Start: 01-18-2025 End: 04-19-2025 Lipid 1996 panel - Serum or Plasma LIPID PANEL, FASTING Lab Routine Type 2 diabetes mellitus without complication, without long-term current use of insulin (HCC) Essential hypertension, benign Expected: 01/18/2025 (Approximate), Expires: 04/19/2025 [facility] Comment on above: Expected: 01/18/2025 (Approximate), Expires: 04/19/2025 Start: 01-10-2025 Hemoglobin A1c measurement HbA1C [facility] Start: 01-03-2025 End: 01-03-2025 Follow-up encounter 01/03/2025 1:00 PM EDT [facility] [address] [address] Lisette Banks DO [address] [place] [address] Injection Follow up Orthopaedics Comment on above: Injection Follow up Start: 11-13-2024 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 andrea Disease Visit Annual PCP Team Chronic Disease Visit [facility] Start: 11-13-2024 BP Controlled (<130/80) BP Controlle d (<130/80) [facility] Start: 11-13-2024 Shingrix Vaccine (1 of 2) Shingrix Vaccine (1 of 2) [facility] Comment on above: Postponed from 01/25 (Declined at this time) Start: 11-08-2024 Hepatitis B surface antibody level LDL Cholesterol [facility] Start: 10-16-2024 End: 10-16-2024 Follow-up encounter 10/16/2024 1:30 PM EDT [facility] [address] [address] Lisette Banks, DO [address] [facility] [place], [place] [id number] Injection Follow up Orthopaedics Comment on above: Injection Follow up Start: 09-30-2024 End: 09-30-2024 Patient encounter procedure 09/30/2024 7:40 AM EDT Office Visit [facility] [address] [place] [address] [place] [address] [place] [address] Primary osteoarthritis of right hip [M16.11] [facility] Comment on above: Primary osteoarthrit is of right hip [M16.11] Start: 09-20-2024 Glaucoma screening Dilated Retinal E xam [facility] Start: 09-18-2024 End: 09-18-2024 Patient encounter procedure 09/18/2024 11:45 AM EDT Office Visit Orthopaedics [address] [address] Lisette Banks, DO [address] [facility] [place], [place] [id number] follow up regarding hip pain Orthopaedics Comment on above: follow up regarding hip pain Start: 08-14-2024 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 andrea Disease Visit Annual PCP Team Chronic Disease Visit [facility] Start: 08-14-2024 Anxiety Screening Anxiety Screening [facility] Start: 08-14-2024 BP Controlled (<130/80) BP Controlle d (<130/80) [facility] Start: 08-14-2024 Covid-19 Vaccine () Covid-19 Vaccine () [facility] Comment on above: Postponed from 12/30 (Declined at this time) Start: 08-14-2024 Depression Screening Depression Scre ening [facility] Start: 08-08-2024 Hepatitis B surface antibody level LDL Cholesterol [facility] Start: 08-01-2024 Hemoglobin A1c measurement HbA1C [facility] Start: 07-18-2024 End: 07-18-2024 Patient encounter procedure 07/18/2024 9:20 AM EDT Office Visit [facility] [address], [place] [id number] Milka Mas MD [address] [place], [place] [id number] 3 mo f/u [facility] Comment on above: 3 mo f/u Start: 07-16-2024 End: 07-16-2024 Patient encounter procedure 07/16/2024 9:20 AM EDT Office Visit [facility] [address] [place] [address] Milka Mas MD [address] [place], [place] [id number] 3 mo f/u [facility] Comment on above: 3 mo f/u Start: 05-17-2024 End: 08-16-2024 Comprehensive metabolic 2000 panel - Serum or Plasma COMPREHENSIVE METABOLIC PANEL Lab Routine Type 2 diabetes mellitus without complication, without long-term current use of insulin (HCC) Essential hypertension, benign Mixed hyperlipidemia Expected: 05/17/2024 (Approximate), Expires: 08/16/2024 [facility] Work Phone: Comment on above: Expected: 05/17/2024 (Approximate), Expires: 08/16/2024 Start: 05-17-2024 End: 08-16-2024 Hemoglobin A1c in Blood HEMOGLOBIN A1C Lab Routine Type 2 diabetes mellitus without complication, without long-term current use of insulin (HCC) Expected: 05/17/2024 (Approximate), Expires: 08/16/2024 [facility] Comment on above: Expected: 05/17/2024 (Approximate), Expires: 08/16/2024 Start: 05-17-2024 End: 08-16-2024 Lipid 1996 panel - Serum or Plasma LIPID PANEL BASIC Lab Routine Type 2 diabetes mellitus without complication, without long-term current use of insulin (HCC) Essential hypertension, benign Mixed hyperlipidemia Expected: 05/17/2024 (Approximate), Expires: 08/16/2024 [facility] Comment on above: Expected: 05/17/2024 (Approximate), Expires: 08/16/2024 Start: 05-17-2024 End: 05-17-2024 Patient encounter procedure 05/17/2024 9:20 AM EST Office Visit [facility] [address], [place] [id number] Milka Mas MD [address] [place], [place] [id number] 3 mo f/u Family [facility] Comment on above: 3 mo f/u Start: 05-16-2024 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 andrea Disease Visit Annual PCP Team Chronic Disease Visit [facility] Start: 05-11-2024 Hemoglobin A1c measurement HbA1C [facility] Start: 05-01-2024 Medicare Advantage Annual Wellness Visit Medicare Advantage Annual Wellness Visit [facility] Start: 04-23-2024 End: 05-23-2025 XR Pelvis and Hip - right AP and Lateral frog XR HIP GENERAL 3V PELV/AP/LAT RIGHT Radiology Routine Pain of right hip Expected: 04/23/2024 (Approximate), Expires: 05/23/2025 [facility] Work Phone: Comment on above: Expected: 04/23/2024 (Approximate), Expires: 05/23/2025 Start: 04-14-2024 Hepatitis B surface antibody level LDL Cholesterol [facility] Start: 02-15-2024 End: 02-15-2024 Patient encounter procedure 02/15/2024 9:20 AM EDT Office Visit Family [facility] [address], [place] [phone] Milka Mas MD [address] [place], [place] [id number] 3 mo f/u [facility] Comment on above: 3 mo f/u Start: 02-14-2024 End: 05-15-2024 Comprehensive metabolic 2000 panel - Serum or Plasma COMPREHENSIVE METABOLIC PANEL Lab Routine Type 2 diabetes mellitus without complication, without long-term current use of insulin (HCC) Essential hypertension, benign Mixed hyperlipidemia Expected: 02/14/2024 (Approximate), Expires: 05/15/2024 [facility] Work Phone: Comment on above: Expected: 02/14/2024 (Approximate), Expires: 05/15/2024 Start: 02-14-2024 End: 05-15-2024 Hemoglobin A1c in Blood HEMOGLOBIN A1C Lab Routine Type 2 diabetes mellitus without complication, without long-term current use of insulin (HCC) Expected: 02/14/2024 (Approximate), Expires: 05/15/2024 [facility] Comment on above: Expected: 02/14/2024 (Approximate), Expires: 05/15/2024 Start: 02-14-2024 End: 05-15-2024 Lipid 1996 panel - Serum or Plasma LIPID PANEL BASIC Lab Routine Type 2 diabetes mellitus without complication, without long-term current use of insulin (HCC) Essential hypertension, benign Mixed hyperlipidemia Expected: 02/14/2024 (Approximate), Expires: 05/15/2024 [facility] Comment on above: Expected: 02/14/2024 (Approximate), Expires: 05/15/2024 Start: 02-14-2024 End: 05-15-2024 Microalbumin/Creatinine [Mass Ratio] in Urine ALBUMIN/CREATININE RATIO, URINE Lab Routine Type 2 diabetes mellitus without complication, without long-term current use of insulin (HCC) Expected: 02/14/2024 (Approximate), Expires: 05/15/2024 [facility] Comment on above: Expected: 02/14/2024 (Approximate), Expires: 05/15/2024 Start: 02-08-2024 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 andrea Disease Visit Annual PCP Team Chronic Disease Visit [facility] Start: 02-08-2024 Hemoglobin A1c measurement HbA1C [facility] Start: 2024 RSV Vaccine (1 - Ris k 60-74 years 1-dose series) RSV Vaccine (1 - Risk 60-74 years 1-dose series) [facility] Start: 01-14-2024 Hepatitis B surface antibody level LDL Cholesterol [facility] Start: 12-31-2023 Covid-19 Vaccine ( season) Covid-19 Vaccine ( season) [facility] Start: 12-31-2023 Covid-19 Vaccine () Covid-19 Vaccine () [facility] Start: 12-31-2023 Influenza vaccination Influenza Vacc ine (#1) [facility] Start: 12-13-2023 ANNUAL PCP TEAM AGRICULTURAL EDUCATION TEACHER ANDREA DISEASE VISIT ANNUAL PCP TEAM CHRONIC DISEASE VISIT [facility] Start: 11-14-2023 End: 02-13-2024 Comprehensive metabolic 2000 panel - Serum or Plasma COMPREHENSIVE METABOLIC PANEL Lab Routine Type 2 diabetes mellitus without complication, without long-term current use of insulin (HCC) Expected: 11/14/2023 (Approximate), Expires: 02/13/2024 [facility] Work Phone: Comment on above: Expected: 11/14/2023 (Approximate), Expires: 02/13/2024 Start: 11-14-2023 End: 02-13-2024 Hemoglobin A1c in Blood HEMOGLOBIN A1C Lab Routine Type 2 diabetes mellitus without complication, without long-term current use of insulin (HCC) Expected: 11/14/2023 (Approximate), Expires: 02/13/2024 [facility] Work Phone: Comment on above: Expected: 11/14/2023 (Approximate), Expires: 02/13/2024 Start: 11-14-2023 End: 02-13-2024 Lipid 1996 panel - Serum or Plasma LIPID PANEL BASIC Lab Routine Type 2 diabetes mellitus without complication, without long-term current use of insulin (HCC) Expected: 11/14/2023 (Approximate), Expires: 02/13/2024 [facility] Work Phone: Comment on above: Expected: 11/14/2023 (Approximate), Expires: 02/13/2024 Start: 11-14-2023 End: 02-13-2024 Microalbumin/Creatinine [Mass Ratio] in Urine ALBUMIN/CREATININE RATIO, URINE Lab Routine Type 2 diabetes mellitus without complication, without long-term current use of insulin (HCC) Expected: 11/14/2023 (Approximate), Expires: 02/13/2024 [facility] Work Phone: Comment on above: Expected: 11/14/2023 (Approximate), Expires: 02/13/2024 Start: 11-14-2023 End: 11-14-2023 Patient encounter procedure 11/14/2023 9:00 AM EDT Office Visit [facility] [place] [address], [place] [phone] Milka Mas MD [address] [place], [place] [phone] 3 month follow Family [facility] [place] Comment on above: 3 month follow Start: 10-14-2023 Hemoglobin A1c measurement HbA1C [facility] Start: 09-07-2023 End: 12-07-2023 Bacteria identified in Wound by Culture [facility] Work Phone: Comment on above: Expected: 09/07/2023 , Expires: 12/07/2023 Start: 07-20-2023 ANNUAL PCP TEAM AGRICULTURAL EDUCATION TEACHER ANDREA DISEASE VISIT ANNUAL PCP TEAM CHRONIC DISEASE VISIT [facility] Start: 07-20-2023 COVID-19 VACCINE (3 - Booster for Pfizer series) COVID-19 VACCINE (3 - Booster for Pfizer series) [facility] Comment on above: Postponed from 10/01 (Declined at this time) Start: 07-20-2023 COVID-19 VACCINE (3 - Pfizer series) COVID-19 VACCINE (3 - Pfizer series) [facility] Comment on above: Postponed from 10/01 (Declined at this time) Start: 07-14-2023 Hemoglobin A1c/Hemoglobin.total in Blood HbA1C [facility] Start: 06-28-2023 Nasopharyngeal Culture Nasopharyngea l Culture [facility] Start: 06-28-2023 Source specific culture [facility] Start: 06-27-2023 Hepatitis B screening URINE ALBUMIN:CREATININE RATIO [facility] Start: 06-27-2023 Hepatitis B surface antibody level LDL CHOLESTEROL [facility] Start: 05-10-2023 End: 07-10-2023 Comprehensive metabolic 2000 panel - Serum or Plasma COMP METABOLIC PANEL Lab Routine Essential hypertension, benign Type 2 diabetes mellitus without complication, without long-term current use of insulin (HCC) Expected: 05/10/2023 (Approximate), Expires: 07/10/2023 [facility] Work Phone: Comment on above: Expected: 05/10/2023 (Approximate), Expires: 07/10/2023 Start: 05-10-2023 End: 07-10-2023 Hemoglobin A1c in Blood HGB A1C Lab Routine Type 2 diabetes mellitus without complication, without long-term current use of insulin (HCC) Expected: 05/10/2023 (Approximate), Expires: 07/10/2023 [facility] Work Phone: Comment on above: Expected: 05/10/2023 (Approximate), Expires: 07/10/2023 Start: 05-10-2023 End: 07-10-2023 Lipid 1996 panel - Serum or Plasma LIPID PANEL BASIC Lab Routine Essential hypertension, benign Type 2 diabetes mellitus without complication, without long-term current use of insulin (HCC) Expected: 05/10/2023 (Approximate), Expires: 07/10/2023 [facility] Work Phone: Comment on above: Expected: 05/10/2023 (Approximate), Expires: 07/10/2023 Start: 05-01-2023 Behavioral Health Screening Behavioral Health Screening [facility] Start: 04-15-2023 Glaucoma screening Dilated Retinal E xam [facility] Start: 04-15-2023 Hepatitis C antibody , confirmatory test DILATED RETINAL EXAM [facility] Start: 03-29-2023 BP CONTROLLED (<130/80) BP CONTROLLE D (<130/80) [facility] Start: 03-21-2023 ANNUAL PCP TEAM AGRICULTURAL EDUCATION TEACHER ANDREA DISEASE VISIT ANNUAL PCP TEAM CHRONIC DISEASE VISIT [facility] Start: 01-19-2023 End: 03-21-2023 Comprehensive metabolic 2000 panel - Serum or Plasma COMP METABOLIC PANEL Lab Routine Type 2 diabetes mellitus without complication, without long-term current use of insulin (HCC) Mixed hyperlipidemia Essential hypertension, benign Expected: 01/19/2023 (Approximate), Expires: 03/21/2023 [facility] Work Phone: Comment on above: Expected: 01/19/2023 (Approximate), Expires: 03/21/2023 Start: 01-19-2023 End: 03-21-2023 Hemoglobin A1c in Blood HGB A1C Lab Routine Type 2 diabetes mellitus without complication, without long-term current use of insulin (HCC) Expected: 01/19/2023 (Approximate), Expires: 03/21/2023 [facility] Work Phone: Comment on above: Expected: 01/19/2023 (Approximate), Expires: 03/21/2023 Start: 01-19-2023 End: 03-21-2023 Lipid 1996 panel - Serum or Plasma LIPID PANEL BASIC Lab Routine Mixed hyperlipidemia Essential hypertension, benign Expected: 01/19/2023 (Approximate), Expires: 03/21/2023 [facility] Work Phone: Comment on above: Expected: 01/19/2023 (Approximate), Expires: 03/21/2023 Start: 01-18-2023 ANNUAL PCP TEAM AGRICULTURAL EDUCATION TEACHER ANDREA DISEASE VISIT ANNUAL PCP TEAM CHRONIC DISEASE VISIT [facility] Start: 01-12-2023 Hepatitis B surface antibody level LDL CHOLESTEROL [facility] Start: 12-30-2022 Covid-19 Vaccine ( season) Covid-19 Vaccine ( season) [facility] Start: 12-30-2022 Influenza vaccination [facility] Start: 12-25-2022 Hemoglobin A1c/Hemoglobin.total in Blood HBA1C [facility] Start: 07-18-2022 End: 09-17-2022 ALBUMIN/CREAT RATIO RND UR ALBUMIN/CREAT RATIO RND UR Lab Routine Type 2 diabetes mellitus without complication, without long-term current use of insulin (HCC) Expected: 07/18/2022 (Approximate), Expires: 09/17/2022 [facility] Work Phone: Comment on above: Expected: 07/18/2022 (Approximate), Expires: 09/17/2022 Start: 07-18-2022 End: 09-17-2022 Comprehensive metabolic 2000 panel - Serum or Plasma COMP METABOLIC PANEL Lab Routine Type 2 diabetes mellitus without complication, without long-term current use of insulin (HCC) Expected: 07/18/2022 (Approximate), Expires: 09/17/2022 [facility] Work Phone: Comment on above: Expected: 07/18/2022 (Approximate), Expires: 09/17/2022 Start: 07-18-2022 End: 09-17-2022 Hemoglobin A1c in Blood HGB A1C Lab Routine Type 2 diabetes mellitus without complication, without long-term current use of insulin (HCC) Expected: 07/18/2022 (Approximate), Expires: 09/17/2022 [facility] Work Phone: Comment on above: Expected: 07/18/2022 (Approximate), Expires: 09/17/2022 Start: 07-18-2022 End: 09-17-2022 Lipid 1996 panel - Serum or Plasma LIPID PANEL BASIC Lab Routine Class 3 severe obesity due to excess calories with serious comorbidity and body mass index (BMI) of 50.0 to 59.9 in adult (HCC) Expected: 07/18/2022 (Approximate), Expires: 09/17/2022 [facility] Work Phone: Comment on above: Expected: 07/18/2022 (Approximate), Expires: 09/17/2022 Start: 07-12-2022 Hemoglobin A1c/Hemoglobin.total in Blood HBA1C [facility] Start: 07-09-2022 ANNUAL PCP TEAM AGRICULTURAL EDUCATION TEACHER ANDREA DISEASE VISIT ANNUAL PCP TEAM CHRONIC DISEASE VISIT [facility] Start: 07-09-2022 BP CONTROLLED (<130/80) BP CONTROLLE D (<130/80) [facility] Start: 07-01-2022 Hepatitis B surface antibody level LDL CHOLESTEROL [facility] Start: 05-01-2022 DEPRESSION ASSESSMENT DEPRESSION ASS ESSMENT [facility] Start: 04-09-2022 3 comp foot exam completed DIABETIC FOOT EXAM [facility] Start: 04-09-2022 Diabetic foot examination Diabetic Foot Exam [facility] Start: 04-09-2022 PNEUMOCOCCAL (2 - PCV) PNEUMOCOCCAL (2 - PCV) [facility] Start: 04-09-2022 Pneumococcal vaccination Pneum ococcal Vaccine (2 - PCV) [facility] Start: 02-04-2022 End: 02-04-2023 SONAM BY IFA SCREEN [facility] Work Phone: Comment on above: Expected: 02/04/2022 , Expires: 02/04/2023 Start: 02-04-2022 End: 02-04-2023 Cyclic citrullinated peptide IgG Ab [Units/volume] in Serum or Plasma [facility] Work Phone: Comment on above: Expected: 02/04/2022 , Expires: 02/04/2023 Start: 02-04-2022 End: 02-04-2023 DNA double strand Ab [Units/volume] in Serum by Immunoassay [facility] Work Phone: Comment on above: Expected: 02/04/2022 , Expires: 02/04/2023 Start: 01-01-2022 Hemoglobin A1c/Hemoglobin.total in Blood HBA1C [facility] Start: 12-30-2021 Influenza vaccination INFLUENZA (#1) [facility] Start: 12-24-2021 Adult depression screening assessment DEPRESSION SCREENING [facility] Start: 12-07-2021 Hepatitis B screening URINE ALBUMIN:CREATININE RATIO [facility] Start: 11-30-2021 Mammography [facility] Start: 11-30-2021 Screening for malign ant neoplasm of breast Mammogram Screening [facility] Start: 11-13-2021 Hepatitis C antibody , confirmatory test DILATED RETINAL EXAM [facility] Start: 09-29-2021 BP CONTROLLED (<130/80) BP CONTROLLE D (<130/80) [facility] Start: 05-01-2021 DEPRESSION ASSESSMENT DEPRESSION ASS ESSMENT [facility] Start: 01-06-2021 COVID-19 VACCINE (3 - Booster for Pfizer series) COVID-19 VACCINE (3 - Booster for Pfizer series) [facility] Start: 10-01-2020 COVID-19 VACCINE (3 - Booster for Pfizer series) COVID-19 VACCINE (3 - Booster for Pfizer series) [facility] Start: 2017 End: 2017 Radex hand minimum 3 views X-Ray, Hand [facility] Work Phone: Start: 01-25-2014 SHINGRIX VACCINE (1 of 2) SHINGRIX VACCINE (1 of 2) [facility] Start: 01-25-2009 COLOGUARD (FIT-DNA) COLOGUARD (FIT-D NA) [facility] Start: 01-25-[address] COLONOGRAPHY [facility] Start: 01-25-2009 FECAL OCCULT BLOOD FECAL OCCULT BLOO D [facility] Start: 01-25-2009 Screening for malign ant neoplasm of colon [facility] Start: 01-25-2009 SIGMOIDOSCOPY SIGMOIDOSCOPY [facility] Start: 01-25-1983 HEPATITIS B (1 of 3 - Risk 3-dose series) HEPATITIS B (1 of 3 - Risk 3-dose series) [facility] Start: 01-25-1983 Urine microalbumin profile [facility] Start: 1964 HEPATITIS B (1 of 3 - 3-dose series) HEPATITIS B (1 of 3 - 3-dose series) [facility] Start: 1965 Hepatitis B Vaccine (1 of 3 - 3-dose series) Hepatitis B Vaccine (1 of 3 - 3-dose series) [facility] Bacteria identified in Urine by Culture URINE CULTURE Microbiology Routine Hematuria, unspecified type 03/13/2023 11:07 AM EST [facility] Work Phone: DBT Breast - bilater al screening ROSA SCREENING W [facility] Radiology Routine Encounter for screening mammogram for breast cancer 07/18/2024 1:03 PM EDT [facility] Work Phone: End: 01-06-2024 ROSA SCREENING ROSA SCREENING Radiology Routine Encounter for screening mammogram for breast cancer 1 Occurrences starting 12/07/2022 until 01/06/2024 [facility] Work Phone: Comment on above: 1 Occurrences starti ng 12/07/2022 until 01/06/2024 End: 09-13-2024 MG Breast Screening ROSA SCREENING Radiology Routine Encounter for screening mammogram for malignant neoplasm of breast 1 Occurrences starting 08/15/2023 until 09/13/2024 [facility] Work Phone: Comment on above: 1 Occurrences starti ng 08/15/2023 until 09/13/2024 PT PLAN OF CARE CERTIFICATION PT PLAN OF CARE CERTIFICATION Procedures Routine Postoperative pain Chronic left shoulder pain Bursitis of left shoulder Tendinitis of left shoulder Rotator cuff syndrome of right shoulder Post-operative pain Acute pain of left shoulder Ordered: 09/16/2021 [facility] Work Phone: Comment on above: Ordered: 09/16/2021 PT PLAN OF CARE CERTIFICATION PT PLAN OF CARE CERTIFICATION Procedures Routine Post-operative pain Acute pain of left shoulder Bursitis of left shoulder Tendinitis of left shoulder Ordered: 10/04/2021 [facility] Work Phone: Comment on above: Ordered: 10/04/2021 PT PLAN OF CARE CERTIFICATION PT PLAN OF CARE CERTIFICATION Procedures Routine Post-operative pain Acute pain of left shoulder Bursitis of left shoulder Tendinitis of left shoulder Ordered: 11/02/2021 [facility] Work Phone: Comment on above: Ordered: 11/02/2021 PT PLAN OF CARE CERTIFICATION PT PLAN OF CARE CERTIFICATION Procedures Routine Post-operative pain Acute pain of left shoulder Bursitis of left shoulder Tendinitis of left shoulder Ordered: 11/25/2021 [facility] Work Phone: Comment on above: Ordered: 11/25/2021 PT PLAN OF CARE CERTIFICATION PT PLAN OF CARE CERTIFICATION Procedures Routine Acute pain of left shoulder Post-operative pain Bursitis of left shoulder Tendinitis of left shoulder Ordered: 12/17/2021 [facility] Work Phone: Comment on above: Ordered: 12/17/2021 PT PLAN OF CARE CERTIFICATION PT PLAN OF CARE CERTIFICATION Procedures Routine Bursitis of left shoulder Ordered: 03/16/2022 [facility] Work Phone: Comment on above: Ordered: 03/16/2022 End: 02-04-2023 Screening mammography bi 2-view breast inc cad ROSA SCREENING Radiology Routine Encounter for screening mammogram for breast cancer 1 Occurrences starting 01/05/2022 until 02/04/2023 [facility] Work Phone: Comment on above: 1 Occurrences starti ng 01/05/2022 until 02/04/2023 End: 08-22-2025 US Breast - right limited US BREAST LTD RIGHT Radiology Routine Abnormal mammogram 1 Occurrences starting 07/23/2024 until 08/22/2025 [facility] Work Phone: Comment on above: 1 Occurrences starti ng 07/23/2024 until 08/22/2025 End: 04-09-2023 XR FOOT GENERAL 3V AP/LAT/OBL RIGHT XR FOOT GENERAL 3V AP/LAT/OBL RIGHT Radiology Routine Pain in right foot 1 Occurrences starting 03/10/2022 until 04/09/2023 [facility] Work Phone: Comment on above: 1 Occurrences starti ng 03/10/2022 until 04/09/2023 XR Pelvis and Hip - right AP and Lateral frog XR HIP GENERAL 3V PELV/AP/LAT RIGHT Radiology Routine Pain of right hip 07/10/2024 8:30 AM EDT [facility] Work Phone: [facility] c [facility] c [facility] Immunizations Immunization Date Immunization Notes Care Provider [facility] 02-15-2024 influenza, seasonal, injectable Milka Mas MD Work Phone: [facility] 02-07-2023 pneumococcal Conjuga te, unspecified formulation Milka Mas MD Work Phone: [facility] Work Phone: 02-07-2023 influenza, injectabl e, quadrivalent, contains preservative Milka Mas MD Work Phone: [facility] 02-07-2023 pneumococcal (PCV20) vaccine, 20 valent (PREVNAR 20) Milka Mas MD Work Phone: [facility] 02-07-2023 influenza virus vaccine, unspecified formulation Doriluz Pepper [facility] 01-18-2022 influenza, injectabl e, quadrivalent, contains preservative Milka Mas MD Work Phone: [facility] 01-18-2022 influenza virus vaccine, unspecified formulation Dori Evgeny [facility] 04-09-2021 pneumococcal polysaccharide vaccine, 23 valent Lisette Chicorelli DO Work Phone: [facility] 12-30-2020 influenza, injectabl e, quadrivalent, contains preservative Lisette Chicorelli DO Work Phone: [facility] 08-06-2020 COVID-19 vaccine, ag e 12+ yr (PFIZER-BIONTECH - PURPLE TOP) Lisette Chicorelli DO Work Phone: [facility] 07-15-2020 COVID-19 vaccine, ag e 12+ yr (PFIZER-BIONTECH - PURPLE TOP) Lisette Chicorelli DO Work Phone: [facility] 03-05-2020 influenza virus vaccine, unspecified formulation Lisette Chicorelli DO Work Phone: [facility] Work Phone: 02-25-2019 influenza, injectabl e, quadrivalent, contains preservative Lisette Chicorelli DO Work Phone: [facility] Work Phone: 03-12-2018 influenza, injectabl e, quadrivalent, contains preservative Lisette Chicorelli DO Work Phone: [facility] 03-04-2017 influenza, seasonal, injectable Lisette Chicorelli DO Work Phone: [facility] 01-22-2016 influenza, injectabl e, quadrivalent, preservative free [facility] 01-22-2016 influenza, seasonal, injectable [facility] 01-22-2016 influenza, seasonal, injectable, preservative free Lisette Claudineorelli DO Work Phone: [facility] Work Phone: 01-14-2016 influenza, seasonal, injectable Lisette Chicorelli DO Work Phone: [facility] 02-19-2015 influenza, seasonal, injectable Lisette Claudineorelli DO Work Phone: [facility] 01-29-2013 Influenza virus vaccine W [facility] 01-29-2013 influenza virus vaccine, unspecified formulation Lisette Claudineorelli DO Work Phone: [facility] 01-29-2013 influenza, seasonal, injectable, preservative free Lisette Claudineorelli DO Work Phone: [facility] Work Phone: 03-09-2012 influenza virus vaccine, unspecified formulation Lisette Claudineorelli DO Work Phone: [facility] 04-08-2011 influenza virus vaccine, unspecified formulation Lisette Claudineorelli DO Work Phone: [facility] Work Phone: 01-29-2009 influenza virus vaccine, unspecified formulation Lisette Chicorelli DO Work Phone: [facility] Work Phone: 06-20-2008 influenza virus vaccine, unspecified formulation Lisette Claudineorelli DO Work Phone: [facility] Work Phone: Payers Date Payer Category Payer Self-pay [id number] 2020 Medicare HUMANA MEDICARE HUMANA MEDICARE PPO [id number] 2020-Present [phone] [address] [address] [place] [address] PPO [id number] 2017 Medicare HUMANA MEDICARE HUMANA MEDICARE PPO [id number] 2017-Present [phone] [address] [address] [place] [address] PPO [id number] 2017 Medicare (Managed Care) CAROLYNN GARCIA [id number] 2015 Medicare [id number] Unknown [id number] Unknown [id number] Social History Date Type Detail Facility Start: 11-04-2011 End: 02-15-2024 Tobacco smoking status NHIS Ex-smoker [facility] Start: 05-01-1977 End: 05-01-1979 History of tobacco use Current smoker [facility] Start: 05-01-1977 End: 05-01-1979 History of tobacco use Cigarette Smoker [facility] Start: 07-23-2021 Alcohol intake Current drinker of alcohol (finding) [facility] Start: 06-30-2019 History SDOH Alcohol Frequency 1 [facility] Start: 06-30-2019 History SDOH Social Connections Phone 5 [facility] Start: 06-30-2019 History SDOH Social Connections Get Together 2 [facility] Start: 06-30-2019 History SDOH Social Connections Living 3 [facility] Start: 06-30-2019 Education 15 [facility] Start: 1965 Sex Assigned At Not on file [facility] Start: 07-17-2021 End: 08-16-2021 Exposure to SARS-CoV-2 (event) Unable to assess [facility] Start: 07-18-2021 End: 03-29-2022 Exposure to SARS-CoV-2 (event) Not sure [facility] Work Phone: Start: 08-06-2021 End: 09-18-2024 Alcohol intake Ex-drinker (finding) [facility] Start: 11-04-2011 End: 08-31-2022 Cigarettes smoked current (pack per day) - Reported 0.5 [facility] Start: 11-04-2011 End: 02-15-2024 Tobacco use and exposure Smokeless tobacco non-user [facility] Start: 05-18-2022 End: 05-18-2022 Tobacco smoking status NHIS Unknown if ever smoked [facility] Start: 01-09-2019 Non-smoker [facility] Start: 1965 Sex Assigned At Female [facility] Start: 06-30-2019 End: 08-31-2022 Social connection and isolation panel [facility] Do you belong to any clubs or organizations such as alevism groups, [employer], [employer] or athletic groups, or school groups? No [facility] Are you now , , , , never or living with a partner? [facility] How often to you hav e a drink containing alcohol? Never [facility] Average Number of Drinks Not on file [facility] Do you feel stress - tense, restless, nervous, or anxious, or unable to sleep at night because your mind is troubled all the time - these days [OSQ] Only a little [facility] (I/We) worried wheth er (my/our) food would run out before (I/we) got money to buy more. Never true [facility] Start: 02-05-2016 Rare [facility] Start: 02-05-2016 None [facility] Start: 02-05-2016 Spouse/ Significant Other [facility] Do you feel stress - tense, restless, nervous, or anxious, or unable to sleep at night because your mind is troubled all the time - these days [OSQ] Not at all [facility] Medical Equipment Procedure Code Equipment Code Equipment Origin al Text Equipment Identifier Dates Anchr Sut 4.75mm 2 [facility] [id number] Start: 08-31-2021 Anchr Sut 4.75mm 2 [employer] - [id number] Start: 08-31-2021 Anchr Sut 4.75mm 2 [employer] - [id number] Start: 08-31-2021 MINI TIGHTROPE IMPLANT SYSTEM FDA Start: 02-21-2018 IMPLANT SYSTEM C [facility] MINI FDA Start: 02-13-2019 MINI TIGHTROPE IMPLANT SYSTEM FDA Start: 02-21-2018 IMPLANT SYSTEM C [facility] MINI FDA Start: 02-13-2019 MINI TIGHTROPE IMPLANT SYSTEM FDA Start: 02-21-2018 IMPLANT SYSTEM C MC MINI FDA Start: 02-13-2019 MINI TIGHTROPE IMPLANT SYSTEM FDA Start: 02-21-2018 IMPLANT SYSTEM C MC MINI FDA Start: 02-13-2019 Functional Status Date Assessment Result Facility 10-13-2014 Are you deaf, or do you have serious difficulty hearing No 10/13/2014 10:19 AM EDT Annie Hoyt C[facility] No [facility] 10-13-2014 Are you blind, or do you have serious difficulty seeing, even when wearing glasses No 10/13/2014 10:19 AM EDT Annie Hoyt [facility] No [facility] 10-13-2014 Do you have serious difficulty walking or climbing stairs No 10/13/2014 10:19 AM EDT Annie Hoyt [facility] No [facility] 10-13-2014 Do you have difficul ty dressing or bathing No 10/13/2014 10:19 AM EDAnnie Hill Cma No [facility] 10-13-2014 Because of a physica l, mental, or emotional condition, do you have difficulty doing errands alone such as visiting a physician's office or shopping No 10/13/2014 10:19 AM EDT Annie Hoyt [facility] No [facility] Mental Status Date Assessment Result Facility 10-13-2014 Because of a physica l, mental, or emotional condition, do you have serious difficulty concentrating, remembering, or making decisions No 10/13/2014 10:19 AM EDAnnie Hill Cma No [facility] Clinical Notes 08-11-2016 to 10-16-2024 Lisette Banks, DO - 10/16/2024 1:29 PM EDTTelephone Encounter - Byron Jolley APRN.CNP - 10/14/2024 8:11 AM EDTTelephone Encounter - Byron Jolley APRN.CNP - 10/14/2024 8:11 AM EDT Note Date & Type Note Facility 10-16-2024 Note HNO ID: [id number] Author: LISETTE BANKS, DO Service: ? Author Type: Physician Type: Progress Notes Filed: 10/16/2024 13:35 Note Text: VIRTUAL VISIT PROGRESS NOTE This is a virtual visit using [employer] Transom Video Visit. It required patient-provider interaction for the medical decision making as documented below. I have communicated my name and active licensure. The patient's identity and physical location were verified at the time of this visit. Either the patient or their legal public service representative has been informed of the risks and benefits of -- and alternatives to -- treatment through a remote evaluation and consents to proceed with the evaluation remotely. Morena Martinez is a 59 year old female seen for follow up after right hip injection. 08/03, feels pretty good. Denies pain going down leg or other constitutional symptoms.. HISTORY REVIEWED (electronic chart updated): PAST MEDICAL HISTORY Diagnosis Date Blood dyscrasia 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 Diffuse cystic mastopathy Diverticulosis of colon (without mention of hemorrhage) Diverticulosis DVT of leg (deep venous thrombosis) (HCC) Right leg Hypertension Irritable bowel syndrome Localized osteoarthrosis not specified whether primary or secondary, other specified sites RT KNEE Migraine, unspecified, with intractable migraine, so stated, without mention of status migrainosus Migraine Obesity, unspecified Osteoarthritis of right knee Other and unspecified disc disorder of unspecified region Intervertebral disc disorders Other disorders of bladder Personal history of colonic polyps 01/21/2015 PMH - PAST MEDICAL HISTORY OF 1989 Pulmonary Embolism PAST SURGICAL HISTORY Procedure Laterality Date ANESTH DIAGNOSTIC ARTHROSCOPIC PROC KNEE JOINT 1994 LT KNEE ANESTH DIAGNOSTIC ARTHROSCOPIC PROC KNEE JOINT 1994 RT KNEE APPENDECTOMY ARTHRODESIS CMC JNT THUMB W/WO FIX Right 02/21/2018 ARTHROSCOPY KNEE DIAGNOSTIC W/WO SYNOVIAL BX SPX 2008 Right knee ARTHRP KNE CONDYLEANDPLATU MEDIALANDLAT COMPARTMENTS Right 06/27/2011 CHOLECYSTECTOMY Cholecystectomy COLONOSCOPY FLX DX W/COLLJ SPEC WHEN PFRMD 01/21/2015 Repeat 2024 I/D PERIANAL ABSCESS, SUPERFICIAL 08/31/2011 LIG/TRNSXJ FLP TUBE ABDL/VAG APPR UNI/BI REDUCTION OF LARGE BREAST Breast reduction REPAIR ANAL FISTULA W/NICHELLE 12/09/2011 REPAIR OF SHOULDER Left 08/2021 Dr Banks RPR UMBILICAL HRNA 5 YRS/> REDUCIBLE Hernia repair, umbilical >5yr, x2 with mesh TOTAL ABDOMINAL HYSTERECT W/WO RMVL TUBE OVARY Hysterectomy, ARIELLE [place] ECTOPIC W/O SALPINGAND/OOPHORECTOMY Ectopic FAMILY HISTORY Problem Relation Age of Onset Heart Father [place] age 50, sudden Breast Cancer Mother Coronary Artery Disease Brother Quadruple by-pass age 50 Coronary Artery Disease Sister IA late 30's Stroke Sister other (Other) Brother pulmonary embolism other (Other) Sister pulmonary embolism Heart Sister heart attack age 50, stent Diabetes Sister older sister; obese Social History Tobacco Use Smoking status: Former Current packs/day: 0.00 Average packs/day: 0.5 packs/day for 2.0 years (1.0 ttl pk-yrs) Types: Cigarettes Start date: 05/01/1977 Quit date: 05/01/1979 Years since quittin.4 Smokeless tobacco: Never Vaping Use Vaping status: Never Used Substance Use Topics Alcohol use: Not Currently Drug use: No Current Outpatient Medications Medication Sig gabapentin (NEURONTIN) 300 mg capsule Take 1 capsule by mouth daily at bedtime for 180 days. furosemide (LASIX) 40 mg tablet Take 1 tablet by mouth once daily. nystatin (MYCOSTATIN) cream Apply to affected area two times a day. atenolol (TENORMIN) 50 mg tablet Taking 50 mg once daily lisinopril (ZESTRIL) 10 mg tablet Take 1 tablet by mouth once daily. acetaminophen-codeine (TYLENOL-CODEINE #3) 300-30 mg per tablet Take 1 tablet by mouth two times a day as needed for pain for up to 90 days. semaglutide (OZEMPIC) 1 mg/dose (4 mg/3 mL) pen Inject 1 mg subcutaneously one time a week. tiZANidine (ZANAFLEX) 4 mg tablet Take 1 tablet by mouth every 6 hours as needed. warfarin (COUMADIN) 5 mg tablet 7.5 mg daily No current facility-administered medications for this visit. ALLERGIES Allergen Reactions Levaquin [Levofloxa* Other: See Comments Notes body aches and joint pain when on medication Augmentin [Amoxicil* Other: See Comments Adverse effect, developed yeast infection Bextra [Valdecoxib] Swelling Ankle swelling Celebrex [Celecoxib] Swelling ankle swelling Erythromycin Rash Latex Lovenox [Enoxaparin* Rash Vioxx [Rofecoxib] Swelling ankle swelling Voltaren [Diclofena* Swelling ankle swelling REVIEW OF SYSTEMS: All other ROS: negative As noted in HPI PHYSICAL EXAMINATION: VIDEO EXAM: (if completed, performed via video enabled technology) No exam performed ASSESSMENT: (M25.551) Pain o (more content not included)... [facility] 10-16-2024 History of Presen t illness Narrative VIRTUAL VISIT PROGRESS NOTE This is a virtual visit using Green[employer] Transom Video Visit. It required patient-provider interaction for the medical decision making as documented below. I have communicated my name and active licensure. The patient's identity and physical location were verified at the time of this visit. Either the patient or their legal public service representative has been informed of the risks and benefits of -- and alternatives to -- treatment through a remote evaluation and consents to proceed with the evaluation remotely. Morena Martinez is a 59 year old female seen for follow up after right hip injection. 08/03, feels pretty good. Denies pain going down leg or other constitutional symptoms.. HISTORY REVIEWED (electronic chart updated): PAST MEDICAL HISTORY Diagnosis Date Blood dyscrasia 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 Diffuse cystic mastopathy Diverticulosis of colon (without mention of hemorrhage) Diverticulosis DVT of leg (deep venous thrombosis) (HCC) Right leg Hypertension Irritable bowel syndrome Localized osteoarthrosis not specified whether primary or secondary, other specified sites RT KNEE Migraine, unspecified, with intractable migraine, so stated, without mention of status migrainosus Migraine Obesity, unspecified Osteoarthritis of right knee Other and unspecified disc disorder of unspecified region Intervertebral disc disorders Other disorders of bladder Personal history of colonic polyps 01/21/2015 PMH - PAST MEDICAL HISTORY OF 1989 Pulmonary Embolism PAST SURGICAL HISTORY Procedure Laterality Date ANESTH DIAGNOSTIC ARTHROSCOPIC PROC KNEE JOINT 1994 LT KNEE ANESTH DIAGNOSTIC ARTHROSCOPIC PROC KNEE JOINT 1994 RT KNEE APPENDECTOMY ARTHRODESIS CMC JNT THUMB W/WO FIX Right 02/21/2018 ARTHROSCOPY KNEE DIAGNOSTIC W/WO SYNOVIAL BX SPX 2007 Right knee ARTHRP KNE CONDYLE&PLATU MEDIAL&LAT COMPARTMENTS Right 06/27/2011 CHOLECYSTECTOMY Cholecystectomy COLONOSCOPY FLX DX W/COLLJ SPEC WHEN PFRMD 01/21/2015 Repeat 2024 I/D PERIANAL ABSCESS, SUPERFICIAL 08/31/2011 LIG/TRNSXJ FLP TUBE ABDL/VAG APPR UNI/BI REDUCTION OF LARGE BREAST Breast reduction REPAIR ANAL FISTULA W/NICHELLE 12/09/2011 REPAIR OF SHOULDER Left 08/2021 Dr Banks RPR UMBILICAL HRNA 5 YRS/> REDUCIBLE Hernia repair, umbilical >5yr, x2 with mesh TOTAL ABDOMINAL HYSTERECT W/WO RMVL TUBE OVARY Hysterectomy, ARIELLE [place] ECTOPIC W/O SALPING&/OOPHORECTOMY Ectopic FAMILY HISTORY Problem Relation Age of Onset Heart Father [place] age 50, sudden Breast Cancer Mother Coronary Artery Disease Brother Quadruple by-pass age 50 Coronary Artery Disease Sister [place] late 30's Stroke Sister other (Other) Brother pulmonary embolism other (Other) Sister pulmonary embolism Heart Sister heart attack age 50, stent Diabetes Sister older sister; obese Social History Tobacco Use Smoking status: Former Current packs/day: 0.00 Average packs/day: 0.5 packs/day for 2.0 years (1.0 ttl pk-yrs) Types: Cigarettes Start date: 05/01/1977 Quit date: 05/01/1979 Years since quittin.4 Smokeless tobacco: Never Vaping Use Vaping status: Never Used Substance Use Topics Alcohol use: Not Currently Drug use: No Current Outpatient Medications Medication Sig gabapentin (NEURONTIN) 300 mg capsule Take 1 capsule by mouth daily at bedtime for 180 days. furosemide (LASIX) 40 mg tablet Take 1 tablet by mouth once daily. nystatin (MYCOSTATIN) cream Apply to affected area two times a day. atenolol (TENORMIN) 50 mg tablet Taking 50 mg once daily lisinopril (ZESTRIL) 10 mg tablet Take 1 tablet by mouth once daily. acetaminophen-codeine (TYLENOL-CODEINE #3) 300-30 mg per tablet Take 1 tablet by mouth two times a day as needed for pain for up to 90 days. semaglutide (OZEMPIC) 1 mg/dose (4 mg/3 mL) pen Inject 1 mg subcutaneously one time a week. tiZANidine (ZANAFLEX) 4 mg tablet Take 1 tablet by mouth every 6 hours as needed. warfarin (COUMADIN) 5 mg tablet 7.5 mg daily No current facility-administered medications for this visit. ALLERGIES Allergen Reactions Levaquin [Levofloxa* Other: See Comments Notes body aches and joint pain when on medication Augmentin [Amoxicil* Other: See Comments Adverse effect, developed yeast infection Bextra [Valdecoxib] Swelling Ankle swelling Celebrex [Celecoxib] Swelling ankle swelling Erythromycin Rash Latex Lovenox [Enoxaparin* Rash Vioxx [Rofecoxib] Swelling ankle swelling Voltaren [Diclofena* Swelling ankle swelling REVIEW OF SYSTEMS: All other ROS: negative As noted in HPI PHYSICAL EXAMINATION: VIDEO EXAM: (if completed, performed via video enabled technology) No exam performed ASSESSMENT: (M25.551) Pain of right hip (primary encounter diagnosis) PLAN: Right hip pain much improved after injection Follow up if pain increases, patient received relief after injection so will stay the course F/u prn If increased pain mri vs back eval pending etiology of pain No radiculopathy, injection into hip helped There are no Patient Instructions on file for this visit. I spent a total of 15 minutes on the date of the service which included preparing to see the patient, [id number] patient care, completing clinical documentation, obtaining and/or reviewing separately obtained history, and counseling and educating the patient/family/caregiver Lisette Banks DO documented in this encounter [facility] 10-14-2024 Telephone encounter Note The following approved medication requests have been transmitted electronically. Requested Prescriptions Pending Prescriptions Disp Refills gabapentin (NEURONTIN) 300 mg capsule 90 capsule 1 Sig: Take 1 capsule by mouth daily at bedtime for 180 days. furosemide (LASIX) 40 mg tablet 30 tablet 11 Sig: Take 1 tablet by mouth once daily. Byron Jolley APRN.JOHN [facility] 10-14-2024 Miscellaneous Notes The following approved medication requests have been transmitted electronically. Requested Prescriptions Pending Prescriptions Disp Refills gabapentin (NEURONTIN) 300 mg capsule 90 capsule 1 Sig: Take 1 capsule by mouth daily at bedtime for 180 days. furosemide (LASIX) 40 mg tablet 30 tablet 11 Sig: Take 1 tablet by mouth once daily. Byron Jolley APRN.CNP The patient has been identified by name and date of : Yes Caregiver verified no other encounters exist for this prescription request: Yes Caregiver confirmed with patient/requestor that no other refills are due, in the near future, with this provider at this time: Yes The last office visit in the department: 07/18/2024 Does the patient have a future office visit with this provider/department: Yes 01/21/2025 Requested Prescriptions Pending Prescriptions Disp Refills gabapentin (NEURONTIN) 300 mg capsule 90 capsule 1 Sig: Take 1 capsule by mouth daily at bedtime for 180 days. furosemide (LASIX) 40 mg tablet 30 tablet 11 Sig: Take 1 tablet by mouth once daily. Arianna Gomez RN October 11, 2024 10:25 AM documented in this encounter [facility] 10-11-2024 Telephone encounter Note The patient has been identified by name and date of : Yes Caregiver verified no other encounters exist for this prescription request: Yes Caregiver confirmed with patient/requestor that no other refills are due, in the near future, with this provider at this time: Yes The last office visit in the department: 07/18/2024 Does the patient have a future office visit with this provider/department: Yes 01/21/2025 Requested Prescriptions Pending Prescriptions Disp Refills gabapentin (NEURONTIN) 300 mg capsule 90 capsule 1 Sig: Take 1 capsule by mouth daily at bedtime for 180 days. furosemide (LASIX) 40 mg tablet 30 tablet 11 Sig: Take 1 tablet by mouth once daily. Arianna Gomez RN October 11, 2024 10:25 AM [facility] 10-07-2024 Telephone encounter Note [facility] called regarding INR result for patient. Result has been addressed below, no further action needed. 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 Result has been addressed below, no further action needed. 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 Patient is currently on the following anticoagulant(s) Warfarin. Labs PT INR (no units) Date Value 07/28/2022 2.7 (pt reported) 03/20/2022 2.7 01/23/2022 2.9 INR Home CoaguChek (no units) Date Value 10/07/2024 1.6 09/23/2024 2.2 09/10/2024 2.0 CrCl cannot be calculated (Unknown ideal weight.). 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: Anticoagulation Episode Summary Current INR goal: 2.0-3.0 Assessment: INR result of 1.6 is SUBtherapeutic due to: unknown cause - did not speak to patient Plan: Current Warfarin Dosing As of 10/07/2024 Full warfarin instructions: 10/07: 10 mg; Otherwise 5 mg every Fri; 7.5 mg all other days Left voice message Advised patient to increase dose for 1 day only then resume weekly regimen Next INR check due on 10/21/2024 Patient instructed to call [facility] at [phone] with any questions or concerns. Manas Richter RPh Clinical Pharmacist, [facility]acy [facility] Pager: [phone] documented in this encounter [facility] 10-07-2024 Telephone encounter Note [facility] Anticoagulation Episode Summary Anticoagulation Care Providers Provider Role Specialty Phone number Milka Mas MD Family Medicine [phone] Morena Martinez is a 59 year old year old female patient being evaluated today for a Telemanagement visit. Patient is currently on the following anticoagulant(s) Warfarin. Labs PT INR (no units) Date Value 07/28/2022 2.7 (pt reported) 03/20/2022 2.7 01/23/2022 2.9 INR Home CoaguChek (no units) Date Value 10/07/2024 1.6 09/23/2024 2.2 09/10/2024 2.0 CrCl cannot be calculated (Unknown ideal weight.). 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: Anticoagulation Episode Summary Current INR goal: 2.0-3.0 Assessment: INR result of 1.6 is SUBtherapeutic due to: unknown cause - did not speak to patient Plan: Current Warfarin Dosing As of 10/07/2024 Full warfarin instructions: 10/07: 10 mg; Otherwise 5 mg every Fri; 7.5 mg all other days Left voice message Advised patient to increase dose for 1 day only then resume weekly regimen Next INR check due on 10/21/2024 Patient instructed to call [facility] at [phone] with any questions or concerns. Manas Richter RPh Clinical Pharmacist, Pharmacy [facility] Pager: [phone] [facility] 09-30-2024 Note HNO ID: [id number] Author: DAYA CASTILLO, DO Service: ? Author Type: Physician Type: Progress Notes Filed: 09/30/2024 08:50 Note Text: [facility] DEPARTMENT OF ORTHOPAEDIC SURGERY AMBULATORY OFFICE VISIT DOCUMENTATION NOTE DIAGNOSIS (M16.11) Primary osteoarthritis of right hip OFFICE VISIT DOCUMENTATION RELEVANT SUMMARY: Morena is a 59-year-old female presenting with progressively worsening right hip pain. Morena reports a several-year history of intermittent right hip pain, which has significantly worsened over the past 6-8 months. The pain is localized to the groin area, radiating to the back and down the front of the thigh, and is exacerbated by activities such as bending over, driving, and moving from the brake to the gas pedal. She describes the pain as a burning sensation and notes that it is particularly severe when standing still, causing tears on one occasion. The pain is also present when walking, making it difficult for her to engage in activities she enjoys, such as walking. She denies any specific injury or trauma that triggered the pain. Morena has not tried any specific treatments for the hip pain, as she was previously told that there was nothing wrong with her hip based on prior x-rays. She has been taking Tylenol #3 with codeine for back pain, which provides minimal relief for the hip pain. She has not attempted physical therapy due to the severity of the pain. She denies numbness, tingling, clicking, or popping sensations in the hip. She does report feeling shaky and occasionally reaching out for support due to a sense of instability, but she has not paid much attention to this symptom. She also experiences some left hip pain, but it is less severe than the right hip pain. Morena was previously evaluated by Dr. Sabrina Anthony, who recommended an ultrasound-guided right hip injection for diagnostic and therapeutic purposes. She was also counseled on the potential future need for a hip replacement. She understands that the purpose of today's visit is to receive the injection. EXAMINATION: - Musculoskeletal: - Right Hip: - Tenderness over the lateral aspect and groin. - Pain elicited with abduction against resistance. - Pain with passive internal and external rotation. - Left Hip: - Mild pain with passive internal and external rotation. CONDITION: Chronic musculoskeletal condition with exacerbation requiring further intervention. (4) DATA REVIEW: (Discussion of Management): In detail today we reviewed the imaging and diagnostic testing results, including the discussion of management of these results, correlated to physical exam findings and patient's personal history of the present condition. (4) MANAGEMENT: Osteoarthritis of the Hip: We discussed the use of various natural supplements and lcek-sqv-rfpbdcs aids to help with this condition. We discussed the appropriate role and side effects of NSAID medication and the impact these medications have on inflammation. We discussed the potential for injection-based therapies and potentially the need for surgery to aid in the improvement of this condition. We discussed the importance of ongoing physical therapy and a home therapy program for this condition. Specifically, we recommended engaging in low-impact activities like water aerobics or stationary cycling to maintain mobility and reduce stress on the hip joint, and adding gentle stretching and strengthening exercises such as leg lifts and bridges. (Decision for injection): In addition to the comprehensive evaluation, assessment and plan as outlined in this note, and as a distinct and separate element to the visit today, separate from the management interventions as outlined above, we have made the determination to proceed with an injection to aid in the management of the patient's condition. We discussed the risks, benefits, alternatives and expected outcomes of this injection in detail, and the patient agreed to proceed. We discussed that this treatment plan confers a moderate risk as injection-based procedures carry the risk of morbidity that includes, but are not limited to, infection, damage to blood vessels or nerves, and a lack of response with continued pain that will continue to decrease musculoskeletal function, impact the patient's activities of daily living (ADLs) and their quality of life. Again, the patient voiced understanding of this and agreed to proceed with the injection. (4) SUMMARY: 1. Primary osteoarthritis of right hip (M16.11) X-ray on July 10, 2024, demonstrated mild symmetric degenerative changes of both intraarticular hips. Pain localized to the groin, radiating to the back and down the front of the thigh, aggravated by bending, driving, and moving from brake to gas pedal. Exam reveals tenderness in the groin and lateral hip, with pain elicited during specific movements. No numbness or tingling (more content not included)... [facility] 09-30-2024 History of Presen t illness Narrative Associated Order(s): Large Joint Arthro/Inj: R hip joint Post-Procedure Diagnose(s): Primary osteoarthritis of right hip Images from the original note were not included. [facility] DEPARTMENT OF ORTHOPAEDIC SURGERY AMBULATORY OFFICE VISIT DOCUMENTATION NOTE DIAGNOSIS (M16.11) Primary osteoarthritis of right hip OFFICE VISIT DOCUMENTATION RELEVANT SUMMARY: Morena is a 59-year-old female presenting with progressively worsening right hip pain. Morena reports a several-year history of intermittent right hip pain, which has significantly worsened over the past 6-8 months. The pain is localized to the groin area, radiating to the back and down the front of the thigh, and is exacerbated by activities such as bending over, driving, and moving from the brake to the gas pedal. She describes the pain as a burning sensation and notes that it is particularly severe when standing still, causing tears on one occasion. The pain is also present when walking, making it difficult for her to engage in activities she enjoys, such as walking. She denies any specific injury or trauma that triggered the pain. Morena has not tried any specific treatments for the hip pain, as she was previously told that there was nothing wrong with her hip based on prior x-rays. She has been taking Tylenol #3 with codeine for back pain, which provides minimal relief for the hip pain. She has not attempted physical therapy due to the severity of the pain. She denies numbness, tingling, clicking, or popping sensations in the hip. She does report feeling shaky and occasionally reaching out for support due to a sense of instability, but she has not paid much attention to this symptom. She also experiences some left hip pain, but it is less severe than the right hip pain. Morena was previously evaluated by Dr. Sabrina Anthony, who recommended an ultrasound-guided right hip injection for diagnostic and therapeutic purposes. She was also counseled on the potential future need for a hip replacement. She understands that the purpose of today's visit is to receive the injection. EXAMINATION: - Musculoskeletal: - Right Hip: - Tenderness over the lateral aspect and groin. - Pain elicited with abduction against resistance. - Pain with passive internal and external rotation. - Left Hip: - Mild pain with passive internal and external rotation. CONDITION: Chronic musculoskeletal condition with exacerbation requiring further intervention. (4) DATA REVIEW: (Discussion of Management): In detail today we reviewed the imaging and diagnostic testing results, including the discussion of management of these results, correlated to physical exam findings and patient's personal history of the present condition. (4) MANAGEMENT: Osteoarthritis of the Hip: We discussed the use of various natural supplements and nzjp-gsx-alkepnx aids to help with this condition. We discussed the appropriate role and side effects of NSAID medication and the impact these medications have on inflammation. We discussed the potential for injection-based therapies and potentially the need for surgery to aid in the improvement of this condition. We discussed the importance of ongoing physical therapy and a home therapy program for this condition. Specifically, we recommended engaging in low-impact activities like water aerobics or stationary cycling to maintain mobility and reduce stress on the hip joint, and adding gentle stretching and strengthening exercises such as leg lifts and bridges. (Decision for injection): In addition to the comprehensive evaluation, assessment and plan as outlined in this note, and as a distinct and separate element to the visit today, separate from the management interventions as outlined above, we have made the determination to proceed with an injection to aid in the management of the patient's condition. We discussed the risks, benefits, alternatives and expected outcomes of this injection in detail, and the patient agreed to proceed. We discussed that this treatment plan confers a moderate risk as injection-based procedures carry the risk of morbidity that includes, but are not limited to, infection, damage to blood vessels or nerves, and a lack of response with continued pain that will continue to decrease musculoskeletal function, impact the patient's activities of daily living (ADLs) and their quality of life. Again, the patient voiced understanding of this and agreed to proceed with the injection. (4) SUMMARY: 1. Primary osteoarthritis of right hip (M16.11) X-ray on July 10, 2024, demonstrated mild symmetric degenerative changes of both intraarticular hips. Pain localized to the groin, radiating to the back and down the front of the thigh, aggravated by bending, driving, and moving from brake to gas pedal. Exam reveals tenderness in the groin and lateral hip, with pain elicited during specific movements. No numbness or tingling reported. Pain likely due to joint pathology precipitating gluteal tendinopathy symptoms. - Perform ultrasound-guided right hip injection with anesthetic and corticosteroid for diagnostic and therapeutic purposes. - Educated patient that the injection may not directly address lateral hip pain but should improve groin pain and indirectly benefit lateral pain over time. - Discussed potential future need for hip replacement. - Follow-up with Dr. Anthony after evaluation and management. Documentation completed by clinical ground support equipment mechanic, residents or fellow has been reviewed in detail. I have personally seen and examined the patient and performed the medical decision-making components. All of the patient's additional questions were answered in detail, the patient verbalized understanding and agrees with the treatment plan as discussed and outlined. Daya Castillo DO Sports Medicine Physician Department of Orthopaedic Surgery [facility] Large Joint Arthro/Inj: R hip joint 09/30/2024 8:49 AM The procedure site was prepped in the usual sterile fashion. Site: R hip joint Details:Musculoskeletal ultrasound was utilized to successfully localize placement of the injection needle at the appropriate site. Ultrasound images demonstrating local vasculature and demonstrating injection of solution were saved. Medications: 40 mg triamcinolone acetonide 40 mg/mL Anesthetics: 3 mL ROPivacaine (PF) 5 mg/mL (0.5 %) Outcome: Tolerated well, no immediate complications Post-injection instructions were reviewed with the patient and the patient voiced understanding of these instructions. Informed Consent Consent Obtained: Written [place] Protocol A moment to CARE was completed. SIGN IN Personnel directly involved with the procedure wore the appropriate PPE. Patient/Surrogate Stated/Verified: Patient name, Date of , Relevant allergies and Intended procedure TIME OUT Relevant labs, photos, and/or imaging studies have been reviewed. Consent documented and matches the intended procedure. Correct side/site marked and visible. Medications required for procedure verified. SIGN OUT All instruments, equipment, possible retained foreign bodies accounted for. The post-procedure POC has been communicated to the patient or surrogate. OFFICE VISIT DOCUMENTATION Morena Martinez is a 59 year old female who presents for Patient presents with: Right Hip - New, Pain: USGI . Morena reports a current pain level of 1 (Hip-Right). She describes the pain as Aching, Sharp, Shooting. The pain is Intermittent . Interventions tried include Reposition, Relaxation, Medication. PAIN EVALUATION 09/25/2024 1504 09/30/2024 0734 Pain Level: -- 1 Pain Location: Hip-Right Hip-Right Description: Aching;Sharp;Stiffness;Tendernes s Aching;Sharp;Shooting Duration Units: Days Months Frequency: -- Intermittent Intervention/Comfort measure: Medication;Positioning Reposition;Relaxation;Medication She was last seen in orthopaedic clinic for her hip/pelvis on 09/18/2024 with Lisette Banks. Most recent hip imaging was completed on 07/12/2024 (XR HIP GENERAL 3V PELV/AP/LAT RIGHT) . Last XR Hip/Pelvis - Impression Only XR HIP GENERAL 3V PELV/AP/LAT RIGHT Exam End: 07/10/2024 8:30 AM (Final result) Impression: IMPRESSION: Mild symmetrical degenerative changes of both hips Thermospray Operator: SHRUTHI Transcribe Date/Time: Jul 12 2024 6:39P Dictated by : MELVINA CHE MD... PT Visits (up to last 5) 05/17/2023 10:14 09/17/2024 15:14 09/18/2024 11:40 09/25/2024 15:04 09/30/2024 07:34 PT Visits Pain level 3 3 1 Description Sore;Aching Aching;Stabbing;Stiffness Aching;Stabbing;Stiffness;Shooti ng Aching;Sharp;Stiffness;Tendernes s Aching;Sharp;Shooting Orthopaedic Injections (up to last 5) 06/11/2021 12:58 08/31/2021 07:26 10/28/2022 11:31 12/29/2022 09:39 05/17/2023 12:51 Orthopaedic Injection History Location shoulder shoulder Shoulder Site L subacromial bursa L subacromial bursa Medication 80 mg triamcinolone acetonide 40 mg/mL ropivacaine (PF) 5 mg/mL (0.5 %) injection (NAROPIN), 15 mL lidocaine (PF) 10 mg/mL (1 %) injection (XYLOCAINE), 0.5 mg 40 mg triamcinolone acetonide 40 mg/mL ropivacaine (PF) 5 mg/mL (0.5 %) injection (NAROPIN) - peripheral nerve block 12 mL - 12/29/2022 9:45:00 AM dexamethasone sodium phosphate injection (DECADRON) - peripheral nerve block 4 mg - 12/29/2022 9:45:00 AM 80 mg triamcinolone acetonide 40 mg/mL Recent Surgeries this specialty 12/29/2022 (1yr, 9mo) ARTHROSCOPY SHOULDER W/ DEBRIDEMENT LIMITED 1 OR 2 DISCRETE STRUCTURES (Left), ARTHROSCOPY SHOULDER WITH SUBACROMIAL DECOMPRESSION (Left) Lisette Banks DO - Posted 12/22/2022 (1yr, 9mo) ARTHROSCOPY SHOULDER W/ DEBRIDEMENT EXTENSIVE 3 OR MORE DISCRETE STRUCTURES (Left) Lisette Banks DO - Posted 08/31/2021 (3yr) ARTHROSCOPY SHOULDER ROTATOR CUFF (Left) Lisette Banks DO - Posted documented in this encounter [facility] 09-27-2024 Telephone encounter Note [employer] message sent to pt notifying her that her meds are ready for product picker. [facility] [address] Chart Copy of medications dispensed to patient for home use September 27, 2024 Physician Initial: ME Morena Martinez Medication: Ozempic Qty: 4 boxes Directions: inject 1 mg once a week Medications administered, dispensed and verified on the date indicated above Patient has been notified to product picker medication in Dr. Mas office. Pinky Dawkins MA [facility] 09-27-2024 Miscellaneous Notes What They Liket message sent to pt notifying her that her meds are ready for product picker. [facility] [address] Chart Copy of medications dispensed to patient for home use September 27, 2024 Physician Initial: ME Morena Martinez Medication: Ozempic Qty: 4 boxes Directions: inject 1 mg once a week Medications administered, dispensed and verified on the date indicated above Patient has been notified to product picker medication in Dr. Mas office. Pinky Dawkins MA documented in this encounter [facility] 09-24-2024 Telephone encounter Note [facility] Ambulatory Pharmacy Anticoagulation Clinic Anticoagulation Episode Summary Anticoagulation Care Providers Provider Role Specialty Phone number Milka Mas MD Family Medicine [phone] Morena Martinez is a 59 year old year old female patient being evaluated today for a Telemanagement visit. Patient is currently on the following anticoagulant(s) Warfarin. Labs Lab Results Component Value Date INR 2.2 09/23/2024 INR 2.0 09/10/2024 INR 3.0 08/25/2024 Lab Results Component Value Date HB 15.2 04/09/2021 HB 14.8 01/07/2020 HB 14.6 06/24/2019 Lab Results Component Value Date HCT 46.7 (H) 04/09/2021 HCT 46.0 01/07/2020 HCT 46.8 (H) 06/24/2019 Lab Results Component Value Date PLT 299 04/09/2021 PLT 244 01/07/2020 PLT 273 06/24/2019 Lab Results Component Value Date CREAT 0.78 07/10/2024 CREAT 0.76 02/01/2024 CREAT 0.72 11/09/2023 No components found for: TBILI3 Lab Results Component Value Date ALT 17 07/10/2024 ALT 16 02/01/2024 ALT 18 11/09/2023 Lab Results Component Value Date AST 21 07/10/2024 AST 17 02/01/2024 AST 20 11/09/2023 CrCl cannot be calculated (Unknown ideal weight.). 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: Anticoagulation Episode Summary Current INR goal: 2.0-3.0 Assessment: INR result of 2.2 is therapeutic Plan: Current Warfarin Dosing As of 09/24/2024 Full warfarin instructions: 5 mg every Fri; 7.5 mg all other days Sent NOBOT message Advised patient to continue current weekly dose as noted above Next home INR check scheduled on 10/08/2024 Patient advised to call the PAC with any medication changes, bleeding/bruising concerns, recent changes in vitamin k consumption, if any procedures are coming up, if they have been ill or in the hospital, and if they have missed any doses of warfarin. Jovanny Peralta RPh Clinical Pharmacist, Pharmacy Anticoagulation Clinic Pharmacy Anticoagulation Clinic Pager: [phone]. [facility] 09-24-2024 Miscellaneous Notes [facility] Ambulatory Pharmacy Anticoagulation Clinic Anticoagulation Episode Summary Anticoagulation Care Providers Provider Role Specialty Phone number Milka Mas MD Family Medicine [phone] Morena Martinez is a 59 year old year old female patient being evaluated today for a Telemanagement visit. Patient is currently on the following anticoagulant(s) Warfarin. Labs Lab Results Component Value Date INR 2.2 09/23/2024 INR 2.0 09/10/2024 INR 3.0 08/25/2024 Lab Results Component Value Date HB 15.2 04/09/2021 HB 14.8 01/07/2020 HB 14.6 06/24/2019 Lab Results Component Value Date HCT 46.7 (H) 04/09/2021 HCT 46.0 01/07/2020 HCT 46.8 (H) 06/24/2019 Lab Results Component Value Date PLT 299 04/09/2021 PLT 244 01/07/2020 PLT 273 06/24/2019 Lab Results Component Value Date CREAT 0.78 07/10/2024 CREAT 0.76 02/01/2024 CREAT 0.72 11/09/2023 No components found for: TBILI3 Lab Results Component Value Date ALT 17 07/10/2024 ALT 16 02/01/2024 ALT 18 11/09/2023 Lab Results Component Value Date AST 21 07/10/2024 AST 17 02/01/2024 AST 20 11/09/2023 CrCl cannot be calculated (Unknown ideal weight.). 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: Anticoagulation Episode Summary Current INR goal: 2.0-3.0 Assessment: INR result of 2.2 is therapeutic Plan: Current Warfarin Dosing As of 09/24/2024 Full warfarin instructions: 5 mg every Fri; 7.5 mg all other days Sent NOBOT message Advised patient to continue current weekly dose as noted above Next home INR check scheduled on 10/08/2024 Patient advised to call the PAC with any medication changes, bleeding/bruising concerns, recent changes in vitamin k consumption, if any procedures are coming up, if they have been ill or in the hospital, and if they have missed any doses of warfarin. Jovanny Peralta RPh Clinical Pharmacist, Pharmacy Anticoagulation Clinic Pharmacy Anticoagulation Clinic Pager: [phone]. documented in this encounter [facility] 09-18-2024 Note HNO ID: [id number] Author: LISETTE BANKS, DO Service: ? Author Type: Physician Type: Progress Notes Filed: 09/19/2024 12:09 Note Text: Reason for Visit/Chief Complaint Morena is a 59-year-old female with a history of hip and back pain, presenting for evaluation of worsening right hip pain. Patient presents with: Right Hip - New, Pain History of Present Illness: PAIN EVALUATION 09/17/2024 1514 09/18/2024 1140 09/18/2024 1142 Pain Level: -- 3 -- Pain Location: Hip-Right Hip-Right -- Description: Aching;Stabbing;Stiffness Aching;Stabbing;Stiffness;Shooti ng -- Duration Amount of Time: -- 2 -- Duration Units: Days Months -- Frequency: Intermittent Continuous -- Intervention/Comfort measure: Medication;Relaxation Relaxation;Medication -- tylenol with codine tylenol with codeine HPI: Right Hip Pain: - Chronic right hip pain, worsening since . - Pain localized to the groin, radiating to the back and down the front of the thigh. - Aggravated by bending over, driving, and moving from brake to gas pedal. - Severe enough to cause crying when sitting on the toilet. - Minimal relief with Tylenol. - Recent X-rays from July 10 reportedly showed nothing wrong according to previous providers. - Denies pain radiating to the foot. Back Pain: - Chronic back pain for several years. - History of bulging discs in the lower back and between the shoulder blades. - Previous providers have reportedly told Morena there was nothing wrong with the back. Medications: - Coumadin. - Antihypertensive medication. - Ozempic 1 mg.Patient presents with right hip pain the last 2 months. She denies any known injury. She notes that she gets shooting pain into the thigh when she is bending over or when she is on her feet for long periods. She notes the pain to be lateral aspect of the right hip and also in the right groin. She has tried rest and tylenol with codeine. Review of Systems: Patient did not have, and does not currently have, any weight loss, malaise, fever, chills, headache, chest pain, chest pressure, palpitations, cough, shortness of breath, orthopnea, paroxsymal nocturnal dyspnea, nausea, vomiting, diarrhea, constipation, melena, hematochezia, urinary difficulties, prolonged bleeding, easily bruising, heat or cold intolerance, new onset joint pain or swelling, new onset extremity weakness or numbness, new onset auditory or visual disturbances, lightheadedness, dizziness, partial loss of consciousness or full loss of consciousness. Current Outpatient Medications on File Prior to Visit Medication Sig nystatin (MYCOSTATIN) cream Apply to affected area two times a day. atenolol (TENORMIN) 50 mg tablet Taking 50 mg once daily lisinopril (ZESTRIL) 10 mg tablet Take 1 tablet by mouth once daily. acetaminophen-codeine (TYLENOL-CODEINE #3) 300-30 mg per tablet Take 1 tablet by mouth two times a day as needed for pain for up to 90 days. semaglutide (OZEMPIC) 1 mg/dose (4 mg/3 mL) pen Inject 1 mg subcutaneously one time a week. tiZANidine (ZANAFLEX) 4 mg tablet Take 1 tablet by mouth every 6 hours as needed. gabapentin (NEURONTIN) 300 mg capsule Take 1 capsule by mouth daily at bedtime for 180 days. warfarin (COUMADIN) 5 mg tablet 7.5 mg daily furosemide (LASIX) 40 mg tablet Take 1 tablet by mouth once daily. No current facility-administered medications on file prior to visit. ALLERGIES Allergen Reactions Levaquin [Levofloxa* Other: See Comments Notes body aches and joint pain when on medication Augmentin [Amoxicil* Other: See Comments Adverse effect, developed yeast infection Bextra [Valdecoxib] Swelling Ankle swelling Celebrex [Celecoxib] Swelling ankle swelling Erythromycin Rash Latex Lovenox [Enoxaparin* Rash Vioxx [Rofecoxib] Swelling ankle swelling Voltaren [Diclofena* Swelling ankle swelling Physical Exam: Vitals: There were no vitals taken for this visit. Psych: Pleasant, good affect and mood General Appearance: Well appearing, alert, in no acute distress, well-hydrated, well nourished.. Skin: Skin color, texture, turgor normal, no suspicious rashes or lesions. Peripheral Pulses: Normal. Neurologic: Gait normal. Reflexes normal and symmetric. Sensation grossly intact.. Lymph Nodes: No cervical lymphadenopathy, No supraclavicular lymphadenopathy, No axillary lymphadenopathy., and No inguinal lymphadenopathy.. Respiratory: No recent pulmonary infection, hemoptysis, chronic cough, or shortness of breath at rest Rheumatologic: Joint deformities: right hip pain Right Hip Exam Tenderness The patient is experiencing tenderness in the anterior. Range of Motion External rotation: abnormal Internal rotation: abnormal Muscle Strength The patient has normal right hip strength. Other Erythema: absent Sensation: normal Pulse: present Comments: Neg homans bilaterally Strength intact Sym le reflexes Left (more content not included)... [facility] 09-16-2024 Telephone encounter Note Call to [facility] and spoke with Carleen. Per Carleen, went to processing today, will take 10-14 days, then will be mailed out. Updated pt via mychart of this. Catrachito Serna MA [facility] 09-16-2024 Miscellaneous Notes Call to [employer] and spoke with Carleen. Per Carleen, went to processing today, will take 10-14 days, then will be mailed out. Updated pt via mychart of this. Catrachito Serna MA documented in this encounter [facility] 09-16-2024 Telephone encounter Note The following approved medication requests have been transmitted electronically. Requested Prescriptions Pending Prescriptions Disp Refills nystatin (MYCOSTATIN) cream 30 g 2 Sig: Apply to affected area two times a day. Byron Jolley APRN.CNP [facility] 09-16-2024 Miscellaneous Notes The following approved medication requests have been transmitted electronically. Requested Prescriptions Pending Prescriptions Disp Refills nystatin (MYCOSTATIN) cream 30 g 2 Sig: Apply to affected area two times a day. Byron Jolley APRN.CNP Prescription Refill Information The patient has been identified by name and date of : Yes Caregiver verified no other encounters exist for this prescription request: Yes Caregiver confirmed with patient/requestor that no other refills are due, in the near future, with this provider at this time: Yes The last office visit in the department: 07/18/2024 Does the patient have a future office visit with this provider/department: Yes Requested Prescriptions Pending Prescriptions Disp Refills nystatin (MYCOSTATIN) cream 30 g 2 Sig: Apply to affected area two times a day. Dianelys Salazar LPN September 16, 2024 12:14 PM documented in this encounter [facility] 09-16-2024 Telephone encounter Note Prescription Refill Information The patient has been identified by name and date of : Yes Caregiver verified no other encounters exist for this prescription request: Yes Caregiver confirmed with patient/requestor that no other refills are due, in the near future, with this provider at this time: Yes The last office visit in the department: 07/18/2024 Does the patient have a future office visit with this provider/department: Yes Requested Prescriptions Pending Prescriptions Disp Refills nystatin (MYCOSTATIN) cream 30 g 2 Sig: Apply to affected area two times a day. Dianelys Salazar LPN September 16, 2024 12:14 PM [facility] 09-10-2024 Telephone encounter Note [facility] Anticoagulation Clinic Anticoagulation Episode Summary Anticoagulation Care Providers Provider Role Specialty Phone number Milka Mas MD Family Medicine [phone] Morena Martinez is a 59 year old year old female patient being evaluated today for a Telemanagement visit. Patient is currently on the following anticoagulant(s) Warfarin. Labs Lab Results Component Value Date INR 2.0 09/10/2024 INR 3.0 08/25/2024 INR 2.9 08/08/2024 Lab Results Component Value Date HB 15.2 04/09/2021 HB 14.8 01/07/2020 HB 14.6 06/24/2019 Lab Results Component Value Date HCT 46.7 (H) 04/09/2021 HCT 46.0 01/07/2020 HCT 46.8 (H) 06/24/2019 Lab Results Component Value Date PLT 299 04/09/2021 PLT 244 01/07/2020 PLT 273 06/24/2019 Lab Results Component Value Date CREAT 0.78 07/10/2024 CREAT 0.76 02/01/2024 CREAT 0.72 11/09/2023 No components found for: TBILI3 Lab Results Component Value Date ALT 17 07/10/2024 ALT 16 02/01/2024 ALT 18 11/09/2023 Lab Results Component Value Date AST 21 07/10/2024 AST 17 02/01/2024 AST 20 11/09/2023 CrCl cannot be calculated (Unknown ideal weight.). 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: Anticoagulation Episode Summary Current INR goal: 2.0-3.0 Assessment: INR result of 2.0 is therapeutic Plan: Current Warfarin Dosing As of 09/10/2024 Full warfarin instructions: 5 mg every Fri; 7.5 mg all other days Sent NOBOT message Advised patient to continue current weekly dose as noted above Next home INR check scheduled on 09/24/2024 Patient advised to call the PAC with any medication changes, bleeding/bruising concerns, recent changes in vitamin k consumption, if any procedures are coming up, if they have been ill or in the hospital, and if they have missed any doses of warfarin. Jovanny Peralta RPh Clinical Pharmacist, Pharmacy Anticoagulation Clinic Pharmacy Anticoagulation Clinic Pager: [phone]. [facility] 09-10-2024 Miscellaneous Notes [facility] Anticoagulation Clinic Anticoagulation Episode Summary Anticoagulation Care Providers Provider Role Specialty Phone number Milka Mas MD Family Medicine [phone] Morena Martinez is a 59 year old year old female patient being evaluated today for a Telemanagement visit. Patient is currently on the following anticoagulant(s) Warfarin. Labs Lab Results Component Value Date INR 2.0 09/10/2024 INR 3.0 08/25/2024 INR 2.9 08/08/2024 Lab Results Component Value Date HB 15.2 04/09/2021 HB 14.8 01/07/2020 HB 14.6 06/24/2019 Lab Results Component Value Date HCT 46.7 (H) 04/09/2021 HCT 46.0 01/07/2020 HCT 46.8 (H) 06/24/2019 Lab Results Component Value Date PLT 299 04/09/2021 PLT 244 01/07/2020 PLT 273 06/24/2019 Lab Results Component Value Date CREAT 0.78 07/10/2024 CREAT 0.76 02/01/2024 CREAT 0.72 11/09/2023 No components found for: TBILI3 Lab Results Component Value Date ALT 17 07/10/2024 ALT 16 02/01/2024 ALT 18 11/09/2023 Lab Results Component Value Date AST 21 07/10/2024 AST 17 02/01/2024 AST 20 11/09/2023 CrCl cannot be calculated (Unknown ideal weight.). 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: Anticoagulation Episode Summary Current INR goal: 2.0-3.0 Assessment: INR result of 2.0 is therapeutic Plan: Current Warfarin Dosing As of 09/10/2024 Full warfarin instructions: 5 mg every Fri; 7.5 mg all other days Sent NOBOT message Advised patient to continue current weekly dose as noted above Next home INR check scheduled on 09/24/2024 Patient advised to call the PAC with any medication changes, bleeding/bruising concerns, recent changes in vitamin k consumption, if any procedures are coming up, if they have been ill or in the hospital, and if they have missed any doses of warfarin. Jovanny Peralta RPh Clinical Pharmacist, Pharmacy Anticoagulation Clinic Pharmacy Anticoagulation Clinic Pager: [phone]. documented in this encounter [facility] 09-05-2024 Telephone encounter Note OK to refill as ordered Milka Mas MD [facility] 09-05-2024 Miscellaneous Notes OK to refill as ordered Milka Mas MD documented in this encounter [facility] 08-08-2024 Telephone encounter Note [facility] Anticoagulation Clinic Anticoagulation Episode Summary Anticoagulation Care Providers Provider Role Specialty Phone number Milka Mas MD Family Medicine [phone] Morena Martinez is a 59 year old year old female patient being evaluated today for a Telemanagement visit. Patient is currently on the following anticoagulant(s) Warfarin. Labs PT INR (no units) Date Value 07/28/2022 2.7 (pt reported) 03/20/2022 2.7 01/23/2022 2.9 INR Home CoaguChek (no units) Date Value 08/08/2024 2.9 07/21/2024 3.0 07/11/2024 2.9 Hemoglobin (g/dL) Date Value 04/09/2021 15.2 Hematocrit (%) Date Value 04/09/2021 46.7 Platelet Count (k/uL) Date Value 04/09/2021 299 Creatinine (mg/dL) Date Value 07/10/2024 0.78 02/01/2024 0.76 11/09/2023 0.72 03/23/2021 0.60 12/07/2020 0.62 04/01/2020 0.70 Bilirubin, Total (mg/dL) Date Value 07/10/2024 0.6 12/07/2020 0.6 ALT (U/L) Date Value 07/10/2024 17 12/07/2020 33 AST (U/L) Date Value 07/10/2024 21 12/07/2020 35 CrCl cannot be calculated (Unknown ideal weight.). 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: FPC (current) use of anticoagulants Embolism and thrombosis (hcc) Anticoagulation Episode Summary Current INR goal: 2.0-3.0 Assessment: INR result of 2.9 is therapeutic Plan: Current Warfarin Dosing As of 08/08/2024 Full warfarin instructions: 5 mg every Mon; 7.5 mg all other days Sent NOBOT message Advised patient to continue current weekly dose as noted above Next home INR check scheduled on 08/22/2024 Patient advised to call the PAC with any medication changes, bleeding/bruising concerns, recent changes in vitamin k consumption, if any procedures are coming up, if they have been ill or in the hospital, and if they have missed any doses of warfarin. Jamee Hdz RPh Clinical Pharmacist, Pharmacy Anticoagulation Clinic Pharmacy Anticoagulation Clinic Pager: [phone]. [facility] 08-08-2024 Miscellaneous Notes [facility]ulatory Pharm[facility] Anticoagulation Clinic Anticoagulation Episode Summary Anticoagulation Care Providers Provider Role Specialty Phone number Milka Mas MD Family Medicine [phone] Morena Martinez is a 59 year old year old female patient being evaluated today for a Telemanagement visit. Patient is currently on the following anticoagulant(s) Warfarin. Labs PT INR (no units) Date Value 07/28/2022 2.7 (pt reported) 03/20/2022 2.7 01/23/2022 2.9 INR Home CoaguChek (no units) Date Value 08/08/2024 2.9 07/21/2024 3.0 07/11/2024 2.9 Hemoglobin (g/dL) Date Value 04/09/2021 15.2 Hematocrit (%) Date Value 04/09/2021 46.7 Platelet Count (k/uL) Date Value 04/09/2021 299 Creatinine (mg/dL) Date Value 07/10/2024 0.78 02/01/2024 0.76 11/09/2023 0.72 03/23/2021 0.60 12/07/2020 0.62 04/01/2020 0.70 Bilirubin, Total (mg/dL) Date Value 07/10/2024 0.6 12/07/2020 0.6 ALT (U/L) Date Value 07/10/2024 17 12/07/2020 33 AST (U/L) Date Value 07/10/2024 21 12/07/2020 35 CrCl cannot be calculated (Unknown ideal weight.). 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: FPC (current) use of anticoagulants Embolism and thrombosis (hcc) Anticoagulation Episode Summary Current INR goal: 2.0-3.0 Assessment: INR result of 2.9 is therapeutic Plan: Current Warfarin Dosing As of 08/08/2024 Full warfarin instructions: 5 mg every Fri; 7.5 mg all other days Sent NOBOT message Advised patient to continue current weekly dose as noted above Next home INR check scheduled on 08/22/2024 Patient advised to call the PAC with any medication changes, bleeding/bruising concerns, recent changes in vitamin k consumption, if any procedures are coming up, if they have been ill or in the hospital, and if they have missed any doses of warfarin. Jamee Hdz [facility] Clinical Pharmacist, Pharmacy Anticoagulation Clinic Pharmacy Anticoagulation Clinic Pager: [phone]. documented in this encounter [facility] 07-31-2024 History of Presen t illness Narrative Radiology Service Progress Note PATIENT NAME: Morena Martinez DATE OF SERVICE: July 31, 2024 TIME: 4:23 PM PATIENT IDENTITY VERIFICATION COMPLETED USING TWO (2) IDENTIFIERS: Name and Date of confirmed by patient verbally. FALL SCREENING: Has the patient had 2 falls in the last year or 1 fall with injury or currently using an Ambulatory Assistive Device (Walker, Cane, Wheelchair, Crutches, etc.)? No PATIENT GENDER DATA: Assigned female at . status: : No status: NO. PATIENT RELEVANT IMPLANT DATA REVIEWED: Not Applicable PATIENT PRESENTS WITH AN IMPLANTABLE OR ATTACHED STITCHER AROUND: No RADIOLOGY DEPARTMENT: Ultrasound PERIPHERAL IV DATA: Not applicable SIGNED BY: Guerda Sanchez RDMS RVT July 31, 2024 4:23 PM documented in this encounter [facility] 07-31-2024 Note HNO ID: [id number] Author: GUERDA SANCHEZ RDMS Service: ? Author Type: Advocacy Director Type: Progress Notes Filed: 07/31/2024 16:23 Note Text: Radiology Service Progress Note PATIENT NAME: Morena Martinez DATE OF SERVICE: July 31, 2024 TIME: 4:23 PM PATIENT IDENTITY VERIFICATION COMPLETED USING TWO (2) IDENTIFIERS: Name and Date of confirmed by patient verbally. FALL SCREENING: Has the patient had 2 falls in the last year or 1 fall with injury or currently using an Ambulatory Assistive Device (Walker, Cane, Wheelchair, Crutches, etc.)? No PATIENT GENDER DATA: Assigned female at . status: : No status: NO. PATIENT RELEVANT IMPLANT DATA REVIEWED: Not Applicable PATIENT PRESENTS WITH AN IMPLANTABLE OR ATTACHED STITCHER AROUND: No RADIOLOGY DEPARTMENT: Ultrasound PERIPHERAL IV DATA: Not applicable SIGNED BY: Guerda Sanchez RDMS RVT July 31, 2024 4:23 PM [facility] 07-25-2024 Miscellaneous Notes TC to pt. Left a detailed message on a secure line with updates. Enedelia Madrid LPN US right breast ordered as per radiology recommendations to check area of swelling. Milka Mas MD documented in this encounter [facility] 07-25-2024 Telephone encounter Note TC to pt. Left a detailed message on a secure line with updates. Enedelia Madrid LPN [facility] 07-23-2024 Telephone encounter Note US right breast ordered as per radiology recommendations to check area of swelling. Milka Mas MD [facility] 07-22-2024 Telephone encounter Note [facility] Ambulatory Pharmacy Anticoagulation Clinic Anticoagulation Episode Summary Anticoagulation Care Providers Provider Role Specialty Phone number Milka Mas MD Family Medicine [phone] Morena Martinez is a 59 year old year old female patient being evaluated today for a Telemanagement visit. Patient is currently on the following anticoagulant(s) Warfarin. Labs PT INR (no units) Date Value 07/28/2022 2.7 (pt reported) 03/20/2022 2.7 01/23/2022 2.9 INR Home CoaguChek (no units) Date Value 07/21/2024 3.0 07/11/2024 2.9 06/24/2024 2.8 Hemoglobin (g/dL) Date Value 04/09/2021 15.2 Hematocrit (%) Date Value 04/09/2021 46.7 Platelet Count (k/uL) Date Value 04/09/2021 299 Creatinine (mg/dL) Date Value 07/10/2024 0.78 02/01/2024 0.76 11/09/2023 0.72 03/23/2021 0.60 12/07/2020 0.62 04/01/2020 0.70 Bilirubin, Total (mg/dL) Date Value 07/10/2024 0.6 12/07/2020 0.6 ALT (U/L) Date Value 07/10/2024 17 12/07/2020 33 AST (U/L) Date Value 07/10/2024 21 12/07/2020 35 CrCl cannot be calculated (Unknown ideal weight.). 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: Anticoagulation Episode Summary Current INR goal: 2.0-3.0 Assessment: INR result of 3.0 is therapeutic Plan: Current Warfarin Dosing As of 07/22/2024 Full warfarin instructions: 5 mg every Fri; 7.5 mg all other days Sent NOBOT message Advised patient to continue current weekly dose as noted above Next INR check due on 08/05/2024 Manas Richter RPh Clinical Pharmacist, Pharmacy Anticoagulation Clinic Pharmacy Anticoagulation Clinic Pager: [phone]. [facility] 07-22-2024 Miscellaneous Notes [facility] Ambulatory Pharmacy Anticoagulation Clinic Anticoagulation Episode Summary Anticoagulation Care Providers Provider Role Specialty Phone number Milka Mas MD Family Medicine [phone] Morena Martinez is a 59 year old year old female patient being evaluated today for a Telemanagement visit. Patient is currently on the following anticoagulant(s) Warfarin. Labs PT INR (no units) Date Value 07/28/2022 2.7 (pt reported) 03/20/2022 2.7 01/23/2022 2.9 INR Home CoaguChek (no units) Date Value 07/21/2024 3.0 07/11/2024 2.9 06/24/2024 2.8 Hemoglobin (g/dL) Date Value 04/09/2021 15.2 Hematocrit (%) Date Value 04/09/2021 46.7 Platelet Count (k/uL) Date Value 04/09/2021 299 Creatinine (mg/dL) Date Value 07/10/2024 0.78 02/01/2024 0.76 11/09/2023 0.72 03/23/2021 0.60 12/07/2020 0.62 04/01/2020 0.70 Bilirubin, Total (mg/dL) Date Value 07/10/2024 0.6 12/07/2020 0.6 ALT (U/L) Date Value 07/10/2024 17 12/07/2020 33 AST (U/L) Date Value 07/10/2024 21 12/07/2020 35 CrCl cannot be calculated (Unknown ideal weight.). 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: Anticoagulation Episode Summary Current INR goal: 2.0-3.0 Assessment: INR result of 3.0 is therapeutic Plan: Current Warfarin Dosing As of 07/22/2024 Full warfarin instructions: 5 mg every Fri; 7.5 mg all other days Sent NOBOT message Advised patient to continue current weekly dose as noted above Next INR check due on 08/05/2024 Manas Richter RPh Clinical Pharmacist, Pharmacy Anticoagulation Clinic Pharmacy Anticoagulation Clinic Pager: [phone]. documented in this encounter [facility] 07-19-2024 Note IMPRESSION: Recommend the patient return for targeted sonographic evaluation of the patient reported focal swelling in the areolar region 9-10:00 position of the right breast BI-RADS Category 0: Incomplete: Needs Additional Imaging Evaluation RISK: Based on the Tyrer-Cuzick (TC) risk assessment model, this patient has a 4.4% lifetime risk of developing breast cancer, meaning they are at average risk for developing breast cancer. However, this is only an estimate based on available history provided on the patient's questionnaire. We encourage all patients to talk with their providers about these results, further recommendations for managing breast health, and appropriate supplemental screening options if the patient has dense breast tissue. Interpreting Radiologist: Allyson Roca M.D. Electronically signed on: 07/19/2024 Thermospray Operator: TANA Transcribe Date/Time: Jul 18 2024 12:31P Dictated by: ALLYSON ROCA MD This examination was interpreted and the report reviewed and electronically signed by: ALLYSON ROCA MD on Jul 19 2024 3:11PM [facility] OF RADIOLOG[facility] 07-19-2024 Telephone encounter Note Opened in error. [facility] 07-19-2024 Miscellaneous Notes Opened in error. documented in this encounter [facility] 07-19-2024 Telephone encounter Note Images from the original note were not included. Prior authorization approved Payer: [facility] [phone] Note from payer: This drug needs prior authorization (PA). The PA is approved for/through 04/30/2025 by the [facility]'s Pharmacy Coverage Policy. However, there is a concern that may prevent your drug from being filled, or your reimbursement from being paid. The Medicare rule in the Prescription Drug Manual (Chapter 14, Appendix E) says drugs covered under a Pharmaceutical Assistance Program (PAP) cannot be covered under a Part D plan. [facility] follows Medicare rules. The information we have says you are receiving PAP coverage for this drug and per Medicare rules isnt covered. Please contact customer service via the number on the back of your card to resolve. Approval Details Authorized from May 01, 2024 to April 30, 2025 Electronic appeal: Not supported View History Notes Time User Attachment Attachment received from [email or web address]. 07/18/2024 6:04 PM [facility], Rx Priorauth In Document Medication Being Authorized semaglutide (OZEMPIC) 1 mg/dose (4 mg/3 mL) pen Inject 1 mg subcutaneously one time a week. Dispense: 3 mL Refills: 5 Start: 07/18/2024 Class: Normal Diagnoses: Type 2 diabetes mellitus without complication, without long-term current use of insulin (HCC); Class 3 severe obesity due to excess calories with serious comorbidity and body mass index (BMI) of 50.0 to 59.9 in adult ([facility]) This order has been released to its destination. To be filled at: [facility] [address] [place] [address] - [address] [facility] - [phone] Pt notified via my chart. [facility] 07-19-2024 Miscellaneous Notes Images from the original note were not included. Prior authorization approved Payer: [facility] [phone] Note from payer: This drug needs prior authorization (PA). The PA is approved for/through 04/30/2025 by the [facility]'s Pharmacy Coverage Policy. However, there is a concern that may prevent your drug from being filled, or your reimbursement from being paid. The Medicare rule in the Prescription Drug Manual (Chapter 14, Appendix E) says drugs covered under a Pharmaceutical Assistance Program (PAP) cannot be covered under a Part D plan. [facility] follows Medicare rules. The information we have says you are receiving PAP coverage for this drug and per Medicare rules isnt covered. Please contact customer service via the number on the back of your card to resolve. Approval Details Authorized from May 01, 2024 to April 30, 2025 Electronic appeal: Not supported View History Notes Time User Attachment Attachment received from payer. 07/18/2024 6:04 PM [facility], Rx Priorauth In Document Medication Being Authorized semaglutide (OZEMPIC) 1 mg/dose (4 mg/3 mL) pen Inject 1 mg subcutaneously one time a week. Dispense: 3 mL Refills: 5 Start: 07/18/2024 Class: Normal Diagnoses: Type 2 diabetes mellitus without complication, without long-term current use of insulin (HCC); Class 3 severe obesity due to excess calories with serious comorbidity and body mass index (BMI) of 50.0 to 59.9 in adult (HCC) This order has been released to its destination. To be filled at: [facility] [address] [place] [address] - [address] [facility] - [phone] Pt notified via my chart. Electronic PA completed for ozempic. documented in this encounter [facility] 07-18-2024 History of Presen t illness Narrative Radiology Service Progress Note PATIENT NAME: Morena Martinez DATE OF SERVICE: July 18, 2024 TIME: 2:03 PM PATIENT IDENTITY VERIFICATION COMPLETED USING TWO (2) IDENTIFIERS: Name and Date of confirmed by patient verbally. FALL SCREENING: Has the patient had 2 falls in the last year or 1 fall with injury or currently using an Ambulatory Assistive Device (Walker, Cane, Wheelchair, Crutches, etc.)? No PATIENT GENDER DATA: Assigned female at . status: : No status: NO. PATIENT RELEVANT IMPLANT DATA REVIEWED: Not Applicable PATIENT PRESENTS WITH AN IMPLANTABLE OR ATTACHED STITCHER AROUND: No RADIOLOGY DEPARTMENT: Mammography PERIPHERAL IV DATA: Not applicable SIGNED BY: Kristian Villafuerte July 18, 2024 2:03 PM documented in this encounter [facility] 07-18-2024 Note HNO ID: [id number] Author: MAEGAN RICH Mammo Tech Service: ? Author Type: [employer] Salesperson Type: Progress Notes Filed: 07/18/2024 14:03 Note Text: Radiology Service Progress Note PATIENT NAME: Morena Martinez DATE OF SERVICE: July 18, 2024 TIME: 2:03 PM PATIENT IDENTITY VERIFICATION COMPLETED USING TWO (2) IDENTIFIERS: Name and Date of confirmed by patient verbally. FALL SCREENING: Has the patient had 2 falls in the last year or 1 fall with injury or currently using an Ambulatory Assistive Device (Walker, Cane, Wheelchair, Crutches, etc.)? No PATIENT GENDER DATA: Assigned female at . status: : No status: NO. PATIENT RELEVANT IMPLANT DATA REVIEWED: Not Applicable PATIENT PRESENTS WITH AN IMPLANTABLE OR ATTACHED STITCHER AROUND: No RADIOLOGY DEPARTMENT: Mammography PERIPHERAL IV DATA: Not applicable SIGNED BY: Kristian Villafuerte July 18, 2024 2:03 PM [facility] 07-18-2024 Telephone encounter Note Electronic PA completed for ozempic. [facility] 07-18-2024 History of Presen t illness Narrative Chief Complaint Patient presents with: F/U 3 Month HPI Morena Martinez is a 59 year old female who presents here today for 3 month follow up. No bowel, GI, or urinary issues. DVT: Taking Coumadin, which is managed by pharmacist. HTN: Denies checking BP at home. Has been having occ episodes of feeling like her heart is racing, some SOB, does not feel well. May last all day. Had Zio monitor last year that just showed some SVT. Feels like she walked up a hill. She's had this before and work has been done and the findings were benign, this is why she didn't go to the ED during these episodes. Is taking Lisinopril 10 mg daily and Atenolol 50 mg 1 pill daily. DM & Obesity: Does not check BS at home. No hypoglycemic episodes or neuropathy sx. Tries to watch diet. Denies much exercise other than staying active around the house amd going outside, walking and taking pictures. Weight last visit was 343 lbs. Taking Ozempic 1 mg weekly which she is getting through pt assistance program. Has started getting the Ozempic back, has taken 3 doses. Edema: both legs; stable with Lasix 40 mg every other day. Pain: Chronic; taking Zanaflex 4 mg prn, Gabapentin 300 mg at bedtime, and Tylenol #3 1 pill BID. Follows with Ortho. Still with right hip pain; had XR done that just showed mild degenerative changes. HM - Mammogram order in, will schedule out front today. Anxiety/Depression screening completed, negative. Past medical history, appointments, medications, allergies reviewed. 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 Diffuse cystic mastopathy Diverticulosis of colon (without mention of hemorrhage) Diverticulosis DVT of leg (deep venous thrombosis) (HCC) Right leg Hypertension Irritable bowel syndrome Localized osteoarthrosis not specified whether primary or secondary, other specified sites RT KNEE Migraine, unspecified, with intractable migraine, so stated, without mention of status migrainosus Migraine Obesity, unspecified Osteoarthritis of right knee Other and unspecified disc disorder of unspecified region Intervertebral disc disorders Other disorders of bladder Personal history of colonic polyps 01/21/2015 PMH - PAST MEDICAL HISTORY OF 1989 Pulmonary Embolism Previous Surgical History PAST SURGICAL HISTORY Procedure Laterality Date ANESTH DIAGNOSTIC ARTHROSCOPIC PROC KNEE JOINT 1994 LT KNEE ANESTH DIAGNOSTIC ARTHROSCOPIC PROC KNEE JOINT 1994 RT KNEE APPENDECTOMY ARTHRODESIS CMC JNT THUMB W/WO FIX Right 02/21/2018 ARTHROSCOPY KNEE DIAGNOSTIC W/WO SYNOVIAL BX SPX 2007 Right knee ARTHRP KNE CONDYLE&PLATU MEDIAL&LAT COMPARTMENTS Right 06/27/2011 CHOLECYSTECTOMY Cholecystectomy COLONOSCOPY FLX DX W/COLLJ SPEC WHEN PFRMD 01/21/2015 Repeat 2024 I/D PERIANAL ABSCESS, SUPERFICIAL 08/31/2011 LIG/TRNSXJ FLP TUBE ABDL/VAG APPR UNI/BI REDUCTION OF LARGE BREAST Breast reduction REPAIR ANAL FISTULA W/NICHELLE 12/09/2011 REPAIR OF SHOULDER Left 08/2021 Dr Banks RPR UMBILICAL HRNA 5 YRS/> REDUCIBLE Hernia repair, umbilical >5yr, x2 with mesh TOTAL ABDOMINAL HYSTERECT W/WO RMVL TUBE OVARY Hysterectomy, ARIELLE [place] ECTOPIC W/O SALPING&/OOPHORECTOMY Ectopic Family History FAMILY HISTORY Problem Relation Age of Onset Heart Father [place] age 50, sudden Breast Cancer Mother Coronary Artery Disease Brother Quadruple by-pass age 50 Coronary Artery Disease Sister IA late 30's Stroke Sister other (Other) Brother pulmonary embolism other (Other) Sister pulmonary embolism Heart Sister heart attack age 50, stent Diabetes Sister older sister; obese Patient Allergies ALLERGIES Allergen Reactions Levaquin [Levofloxa* Other: See Comments Notes body aches and joint pain when on medication Augmentin [Amoxicil* Other: See Comments Adverse effect, developed yeast infection Bextra [Valdecoxib] Swelling Ankle swelling Celebrex [Celecoxib] Swelling ankle swelling Erythromycin Rash Latex Lovenox [Enoxaparin* Rash Vioxx [Rofecoxib] Swelling ankle swelling Voltaren [Diclofena* Swelling ankle swelling Current Medications Current Outpatient Medications on File Prior to Visit Medication Sig tiZANidine (ZANAFLEX) 4 mg tablet Take 1 tablet by mouth every 6 hours as needed. acetaminophen-codeine (TYLENOL-CODEINE #3) 300-30 mg per tablet Take 1 tablet by mouth two times a day as needed for pain for up to 90 days. gabapentin (NEURONTIN) 300 mg capsule Take 1 capsule by mouth daily at bedtime for 180 days. atenolol (TENORMIN) 50 mg tablet Taking 50 mg once daily warfarin (COUMADIN) 5 mg tablet 7.5 mg daily lisinopril (ZESTRIL) 10 mg tablet Take 1 tablet by mouth once daily. furosemide (LASIX) 40 mg tablet Take 1 tablet by mouth once daily. semaglutide (OZEMPIC) 1 mg/dose (4 mg/3 mL) pen Inject 1 mg subcutaneously one time a week. nystatin (MYCOSTATIN) cream Apply to affected area twice daily. No current facility-administered medications on file prior to visit. Social History Social History Tobacco Use Smoking status: Former Current packs/day: 0.00 Average packs/day: 0.5 packs/day for 2.0 years (1.0 ttl pk-yrs) Types: Cigarettes Start date: 05/01/1977 Quit date: 05/01/1979 Years since quittin.2 Smokeless tobacco: Never Vaping Use Vaping status: Never Used Substance Use Topics Alcohol use: Not Currently Drug use: No EXAM: BP 138/90 Pulse 64 Resp 18 Wt (!) 157.1 kg (346 lb 5.5 oz) BMI 54.24 kg/m General Appearance: Well appearing, alert, in no acute distress, well-hydrated, well nourished. and Morbidly obese. Lungs: Lungs clear to auscultation. No wheezing, rhonchi, rales.. Heart: RRR without murmur, gallop, or rubs. No ectopy. Health Maintenance List DTaP,Tdap,Td Vaccine(1 - Tdap) Never done BP Controlled (<130/80) due on 09/29/2021 Mammogram Screening due on 11/30/2021 RSV Vaccine(1 - Risk 60-74 years 1-dose series) Never done Depression Screening due on 08/14/2024 Anxiety Screening due on 08/14/2024 Shingrix Vaccine(1 of 2) due on 11/13/2024 Covid-19 Vaccine( season) due on 02/14/2025 Colorectal Cancer Screening due on 01/21/2025 Annual PCP Team Chronic Disease Visit due on 02/14/2025 Diabetes Screening due on 07/11/2027 Lipid Screening due on 07/10/2029 Influenza Vaccine Completed Hepatitis C Screening Completed Pneumococcal Vaccine: 50+ Completed Cervical Cancer Screening Discontinued HIV Screening Discontinued Data reviewed Weight graph Results Only on 07/11/2024 Component Date Value INR Home CoaguChek 07/11/2024 2.9 Appointment on 07/10/2024 Component Date Value Protein, Total 07/10/2024 7.2 Albumin 07/10/2024 4.2 Calcium, Total 07/10/2024 9.6 Bilirubin, Total 07/10/2024 0.6 Alkaline Phosphatase 07/10/2024 71 AST 07/10/2024 21 ALT 07/10/2024 17 Glucose 07/10/2024 142 (H) BUN 07/10/2024 21 Creatinine 07/10/2024 0.78 Sodium 07/10/2024 141 Potassium 07/10/2024 4.2 Chloride 07/10/2024 102 CO2 07/10/2024 26 Anion Gap 07/10/2024 13 Estimated Glomerular Jeffry* 07/10/2024 87 Cholesterol, Total 07/10/2024 191 Triglyceride 07/10/2024 138 HDL Cholesterol 07/10/2024 47 Non HDL Cholesterol 07/10/2024 144 (H) Fasting Time 07/10/2024 12 VLDL Cholesterol 07/10/2024 28 TC:HDL Ratio 07/10/2024 4.06 LDL Cholesterol 07/10/2024 116 (H) LDL:HDL Ratio 07/10/2024 2.47 Hemoglobin A1C 07/10/2024 6.1 (H) Estimated Average Glucose 07/10/2024 128 Results Only on 06/24/2024 Component Date Value INR Home CoaguChek 06/24/2024 2.8 Results Only on 06/03/2024 Component Date Value INR Home CoaguChek 06/03/2024 2.5 Results Only on 05/22/2024 Component Date Value INR Home CoaguChek 05/22/2024 2.8 ASSESSMENT/PLAN: 1. Type 2 diabetes mellitus without complication, without long-term current use of insulin (HCC) - ICD9: 250.00, ICD10: E11.9 (primary diagnosis) - Controlled - Continue current medications - SEMAGLUTIDE 1 MG/DOSE (4 MG/3 ML) SUBCUTANEOUS PEN INJECTOR - COMPREHENSIVE METABOLIC PANEL - LIPID PANEL, FASTING - HEMOGLOBIN A1C 2. Chronic midline low back pain without sciatica - ICD9: 724.2, 338.29, ICD10: M54.50, G89.29 Continue current medications. 3. Pain of right hip - ICD9: 719.45, ICD10: M25.551 Recommend Ortho evaluation 4. Right knee pain, unspecified chronicity - ICD9: 719.46, ICD10: M25.561 - ACETAMINOPHEN 300 MG-CODEINE 30 MG TABLET 5. Inflammatory polyarthropathy (HCC) - ICD9: 714.9, ICD10: M06.4 6. Essential hypertension, benign - ICD9: 401.1, ICD10: I10 - Controlled - Continue current medications - Recommend home blood pressure monitoring, to bring results to next visit - Encouraged sodium restriction, DASH or Mediterranean diet - Recommend regular aerobic exercise - COMPREHENSIVE METABOLIC PANEL - LIPID PANEL, FASTING 7. Mixed hyperlipidemia - ICD9: 272.2, ICD10: E78.2 - Controlled - Continue current medications - Counseled on healthy diet and regular exercise 8. Class 3 severe obesity due to excess calories with serious comorbidity and body mass index (BMI) of 50.0 to 59.9 in adult (HCC) - ICD9: 278.01, V85.43, ICD10: E66.813, Z68.43, E66.01 Weight decreasing - Behavioral and pharmacological intervention and - Continue current medications - SEMAGLUTIDE 1 MG/DOSE (4 MG/3 ML) SUBCUTANEOUS PEN INJECTOR 9. Embolism and thrombosis (HCC) - ICD9: 453.9, ICD10: I74.9 Stable Continue current medications. 10. Screening for depression - ICD9: V79.0, ICD10: Z13.31 - DEPRESSION SCREENING 11. Encounter for screening examination for other mental health and behavioral disorders - ICD9: V79.8, ICD10: Z13.39 - ANXIETY SCREENING If heart symptoms persist recommend ER to get on monitor and see if something more olaf SVT is causing her symptoms Follow up in 6 months Medical Decision Making: Problems: Moderate: 2+ stable chronic illnesses Data: Unique test result(s) reviewed: 3+ Unique test(s) ordered: 3+ Risk: Moderate: Drug management Medical Decision Making Level: 4 - Moderate Milka Mas MD documented in this encounter [facility] 07-18-2024 Note HNO ID: [id number] Author: MILKA MAS MD Service: ? Author Type: Physician Type: Progress Notes Filed: 07/18/2024 11:46 Note Text: Chief Complaint Patient presents with: F/U 3 Month HPI Morena Martinez is a 59 year old female who presents here today for 3 month follow up. No bowel, GI, or urinary issues. DVT: Taking Coumadin, which is managed by pharmacist. HTN: Denies checking BP at home. Has been having occ episodes of feeling like her heart is racing, some SOB, does not feel well. May last all day. Had Zio monitor last year that just showed some SVT. Feels like she walked up a hill. She's had this before and work has been done and the findings were benign, this is why she didn't go to the ED during these episodes. Is taking Lisinopril 10 mg daily and Atenolol 50 mg 1 pill daily. DM AND Obesity: Does not check BS at home. No hypoglycemic episodes or neuropathy sx. Tries to watch diet. Denies much exercise other than staying active around the house amd going outside, walking and taking pictures. Weight last visit was 343 lbs. Taking Ozempic 1 mg weekly which she is getting through pt assistance program. Has started getting the Ozempic back, has taken 3 doses. Edema: both legs; stable with Lasix 40 mg every other day. Pain: Chronic; taking Zanaflex 4 mg prn, Gabapentin 300 mg at bedtime, and Tylenol #3 1 pill BID. Follows with Ortho. Still with right hip pain; had XR done that just showed mild degenerative changes. HM - Mammogram order in, will schedule out front today. Anxiety/Depression screening completed, negative. Past medical history, appointments, medications, allergies reviewed. 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 Diffuse cystic mastopathy Diverticulosis of colon (without mention of hemorrhage) Diverticulosis DVT of leg (deep venous thrombosis) (HCC) Right leg Hypertension Irritable bowel syndrome Localized osteoarthrosis not specified whether primary or secondary, other specified sites RT KNEE Migraine, unspecified, with intractable migraine, so stated, without mention of status migrainosus Migraine Obesity, unspecified Osteoarthritis of right knee Other and unspecified disc disorder of unspecified region Intervertebral disc disorders Other disorders of bladder Personal history of colonic polyps 01/21/2015 PMH - PAST MEDICAL HISTORY OF 1989 Pulmonary Embolism Previous Surgical History PAST SURGICAL HISTORY Procedure Laterality Date ANESTH DIAGNOSTIC ARTHROSCOPIC PROC KNEE JOINT 1994 LT KNEE ANESTH DIAGNOSTIC ARTHROSCOPIC PROC KNEE JOINT 1994 RT KNEE APPENDECTOMY ARTHRODESIS CMC JNT THUMB W/WO FIX Right 02/21/2018 ARTHROSCOPY KNEE DIAGNOSTIC W/WO SYNOVIAL BX SPX 2007 Right knee ARTHRP KNE CONDYLEANDPLATU MEDIALANDLAT COMPARTMENTS Right 06/27/2011 CHOLECYSTECTOMY 1979' Cholecystectomy COLONOSCOPY FLX DX W/COLLJ SPEC WHEN PFRMD 01/21/2015 Repeat 2024 I/D PERIANAL ABSCESS, SUPERFICIAL 08/31/2011 LIG/TRNSXJ FLP TUBE ABDL/VAG APPR UNI/BI REDUCTION OF LARGE BREAST Breast reduction REPAIR ANAL FISTULA W/NICHELLE 12/09/2011 REPAIR OF SHOULDER Left 08/2021 Dr Banks RPR UMBILICAL HRNA 5 YRS/> REDUCIBLE Hernia repair, umbilical >5yr, x2 with mesh TOTAL ABDOMINAL HYSTERECT W/WO RMVL TUBE OVARY Hysterectomy, ARIELLE [place] ECTOPIC W/O SALPINGAND/OOPHORECTOMY Ectopic Family History FAMILY HISTORY Problem Relation Age of Onset Heart Father [place] age 50, sudden Breast Cancer Mother Coronary Artery Disease Brother Quadruple by-pass age 50 Coronary Artery Disease Sister IA late 30's Stroke Sister other (Other) Brother pulmonary embolism other (Other) Sister pulmonary embolism Heart Sister heart attack age 50, stent Diabetes Sister older sister; obese Patient Allergies ALLERGIES Allergen Reactions Levaquin [Levofloxa* Other: See Comments Notes body aches and joint pain when on medication Augmentin [Amoxicil* Other: See Comments Adverse effect, developed yeast infection Bextra [Valdecoxib] Swelling Ankle swelling Celebrex [Celecoxib] Swelling ankle swelling Erythromycin Rash Latex Lovenox [Enoxaparin* Rash Vioxx [Rofecoxib] Swelling ankle swelling Voltaren [Diclofena* Swelling ankle swelling Current Medications Current Outpatient Medications on File Prior to Visit Medication Sig tiZANidine (ZANAFLEX) 4 mg tablet Take 1 tablet by mouth every 6 hours as needed. acetaminophen-codeine (TYLENOL-CODEINE #3) 300-30 mg per tablet Take 1 tablet by mouth two times a day as needed for pain for up to 90 days. gabapentin (NEURONTIN) 300 mg capsule Take 1 capsule by mouth daily at bedtime for 180 days. atenolol (TENORMIN) 50 mg tablet Taking 50 mg once daily warfarin (COUMADIN) 5 mg tablet 7.5 mg daily lisinopril (ZESTRIL) 10 mg tablet Take 1 tablet by mouth o (more content not included)... [facility] 07-16-2024 Note Patient Outreach (FA MPWS) MORENA MARTIENZ ([id number]) 1965 F Date Time Provider Department 07/16/24 MILKA MAS During your visit today, we recorded the following information about you: Allergies As of Date: 07/16/2024 Noted Allergy Reaction LEVAQUIN (LEVOFLOXACIN) 07/19/2022 14 - Other: See Comments Comments: Notes body aches and joint pain when on medication AUGMENTIN (AMOXICILLIN-POT CLAVUL*12/31/2004 14 - Other: See [...] - Swelling Comments: ankle swelling Date Reviewed: 02/15/2024 Reviewed by: Catrachito Serna MA - Fully Assessed Visit Diagnosis:Encounter for screening mammogram for breast cancer [Z12.31] Order(s):[facility] SCREENING W MARIAH [[id number]] Order #: [id number] FUTURE Prescriptions as of 08/16/2024 - acetaminophen-codeine (TYLENOL-CODEINE #3) 300-30 mg per tablet Take 1 tablet by mouth two times a day as needed for pain for up to 90 days. - semaglutide (OZEMPIC) 1 mg/dose (4 mg/3 mL) pen Inject 1 mg subcutaneously one time a week. - tiZANidine (ZANAFLEX) 4 mg tablet Take 1 tablet by mouth every 6 hours as needed. - gabapentin (NEURONTIN) 300 mg capsule Take 1 capsule by mouth daily at bedtime for 180 days. - atenolol (TENORMIN) 50 mg tablet Taking 50 mg once daily - warfarin (COUMADIN) 5 mg tablet 7.5 mg daily - lisinopril (ZESTRIL) 10 mg tablet Take 1 tablet by mouth once daily. - furosemide (LASIX) 40 mg tablet Take 1 tablet by mouth once daily. - nystatin (MYCOSTATIN) cream Apply to affected area twice daily. Problem List As Of Date 07/16/2024 Noted Resolved Allergic Rhinitis, Cause Unspecified [J30.9] 12/31/2004 Diverticulosis of Colon (without Mention of Hem* Irritable Bowel Syndrome [K58.9] Migraine NOS/Intractable [G43.919] Other Disorders of Bladder [596] Diffuse Cystic Mastopathy [N60.19] Loc Osteoarth NOS-Site NEC [M19.90] Other and Unspecified Disc Disorder of Unspecif* Esophageal Reflux [K21.9] 04/15/2005 Embolism and thrombosis (HCC) [I74.9] 08/22/2007 Restless Legs Syndrome (RLS) [G25.81] 10/22/2007 Obstructive sleep apnea (adult) (pediatric) [G4*10/22/2007 08/31/2021 Essential Hypertension, Benign [I10] 11/19/2007 Other abnormal glucose [R73.09] 11/19/2007 07/09/2021 Dysmetabolic syndrome X [E88.810] 11/19/2007 07/09/2021 Palpitations [R00.2] 01/29/2009 03/09/2012 Routine Gynecological Examination [Z01.419] 02/11/2009 Class: Chronic Class 3 severe obesity due to excess calories w*02/11/2009 Abdominal pain, left lower quadrant [R10.32] 09/02/2009 03/09/2012 Diarrhea [R19.7] 09/02/2009 07/09/2021 Knee pain [M25.569] 04/27/2010 Status post total right knee replacement [Z96.6*07/25/2011 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] 10/13/2011 07/09/2021 Perirectal abscess [K61.1] 09/23/2015 07/09/2021 Infrapatellar bursitis of right knee [M70.51] 08/11/2016 07/09/2021 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] 08/11/2016 Hx of [facility] use of blood thinners [Z79.01] 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 [Z79.*03/18/2019 Chronic midline low back pain without sciatica *07/02/2019 Type 2 diabetes mellitus without complication, *12/30/2020 Leg swelling [M79.89] 08/06/2021 Former smoker [Z87.891] 08/06/2021 Bursitis of left shoulder [M75.52] 08/06/2021 08/31/2021 Tendinitis of left shoulder [M77.8] 08/31/2021 08/31/2021 Post-operative pain [G89.18] 09/16/2021 Acute pain of left shoulder [M25.512] 09/16/2021 Bursitis of left shoulder [M75.52] 09/16/2021 Tendinitis of left shoulder [M77.8] 09/16/2021 Inflammatory polyarthropathy (HCC) [M06.4] 12/12/2022 S/P shoulder surgery [Z98.890] 12/30/2022 COVID-19 [U07.1] 04/18/2023 Encounter Status:Closed by [employer] on 08/16/24 [facility] 07-11-2024 Telephone encounter Note [facility] Anticoagulation Clinic Anticoagulation Episode Summary Anticoagulation Care Providers Provider Role Specialty Phone number Milka Mas MD Family Medicine [phone] Morena Martinez is a 59 year old year old female patient being evaluated today for a Telemanagement visit. Patient is currently on the following anticoagulant(s) Warfarin. Labs PT INR (no units) Date Value 07/28/2022 2.7 (pt reported) 03/20/2022 2.7 01/23/2022 2.9 INR Home CoaguChek (no units) Date Value 07/11/2024 2.9 06/24/2024 2.8 06/03/2024 2.5 Hemoglobin (g/dL) Date Value 04/09/2021 15.2 Hematocrit (%) Date Value 04/09/2021 46.7 Platelet Count (k/uL) Date Value 04/09/2021 299 Creatinine (mg/dL) Date Value 07/10/2024 0.78 02/01/2024 0.76 11/09/2023 0.72 03/23/2021 0.60 12/07/2020 0.62 04/01/2020 0.70 Bilirubin, Total (mg/dL) Date Value 07/10/2024 0.6 12/07/2020 0.6 ALT (U/L) Date Value 07/10/2024 17 12/07/2020 33 AST (U/L) Date Value 07/10/2024 21 12/07/2020 35 CrCl cannot be calculated (Unknown ideal weight.). 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: FPC (current) use of anticoagulants Embolism and thrombosis (hcc) Anticoagulation Episode Summary Current INR goal: 2.0-3.0 Assessment: INR result of 2.9 is therapeutic Plan: Current Warfarin Dosing As of 07/11/2024 Full warfarin instructions: 5 mg every Fri; 7.5 mg all other days Sent NOBOT message Advised patient to continue current weekly dose as noted above Next home INR check scheduled on 07/25/2024 Patient advised to call the PAC with any medication changes, bleeding/bruising concerns, recent changes in vitamin k consumption, if any procedures are coming up, if they have been ill or in the hospital, and if they have missed any doses of warfarin. Jamee Hdz RPh Clinical Pharmacist, Pharmacy Anticoagulation Clinic Pharmacy Anticoagulation Clinic Pager: [phone]. [facility] 07-11-2024 Miscellaneous Notes [facility] Anticoagulation Clinic Anticoagulation Episode Summary Anticoagulation Care Providers Provider Role Specialty Phone number Milka Mas MD Family Medicine [phone] Morena Martinez is a 59 year old year old female patient being evaluated today for a Telemanagement visit. Patient is currently on the following anticoagulant(s) Warfarin. Labs PT INR (no units) Date Value 07/28/2022 2.7 (pt reported) 03/20/2022 2.7 01/23/2022 2.9 INR Home CoaguChek (no units) Date Value 07/11/2024 2.9 06/24/2024 2.8 06/03/2024 2.5 Hemoglobin (g/dL) Date Value 04/09/2021 15.2 Hematocrit (%) Date Value 04/09/2021 46.7 Platelet Count (k/uL) Date Value 04/09/2021 299 Creatinine (mg/dL) Date Value 07/10/2024 0.78 02/01/2024 0.76 11/09/2023 0.72 03/23/2021 0.60 12/07/2020 0.62 04/01/2020 0.70 Bilirubin, Total (mg/dL) Date Value 07/10/2024 0.6 12/07/2020 0.6 ALT (U/L) Date Value 07/10/2024 17 12/07/2020 33 AST (U/L) Date Value 07/10/2024 21 12/07/2020 35 CrCl cannot be calculated (Unknown ideal weight.). 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 Embolism and thrombosis (hcc) Anticoagulation Episode Summary Current INR goal: 2.0-3.0 Assessment: INR result of 2.9 is therapeutic Plan: Current Warfarin Dosing As of 07/11/2024 Full warfarin instructions: 5 mg every Fri; 7.5 mg all other days Sent NOBOT message Advised patient to continue current weekly dose as noted above Next home INR check scheduled on 07/25/2024 Patient advised to call the PAC with any medication changes, bleeding/bruising concerns, recent changes in vitamin k consumption, if any procedures are coming up, if they have been ill or in the hospital, and if they have missed any doses of warfarin. Jamee Hdz [facility] Clinical Pharmacist, Pharmacy Anticoagulation Clinic Pharmacy Anticoagulation Clinic Pager: [phone]. documented in this encounter [facility] 07-10-2024 History of Presen t illness Narrative Radiology Service Progress Note PATIENT NAME: Morena Martinez DATE OF SERVICE: July 10, 2024 TIME: 8:19 AM PATIENT IDENTITY VERIFICATION COMPLETED USING TWO (2) IDENTIFIERS: Name and Date of confirmed by patient verbally. FALL SCREENING: Has the patient had 2 falls in the last year or 1 fall with injury or currently using an Ambulatory Assistive Device (Walker, Cane, Wheelchair, Crutches, etc.)? No PATIENT GENDER DATA: Assigned female at . status: : No status: NO. PATIENT RELEVANT IMPLANT DATA REVIEWED: Not Applicable PATIENT PRESENTS WITH AN IMPLANTABLE OR ATTACHED STITCHER AROUND: No RADIOLOGY DEPARTMENT: General X-ray: Exam(s) Completed: Pelvis X-Ray: Pelvis with Hip Right PERIPHERAL IV DATA: Not applicable SIGNED BY: EDWAR Marques) July 10, 2024 8:19 AM documented in this encounter [facility] 07-10-2024 Note HNO ID: [id number] Author: SHELLIE LEAL RT(R) Service: Radiology Author Type: Technologist Type: Progress Notes Filed: 07/10/2024 08:31 Note Text: Radiology Service Progress Note PATIENT NAME: Morena Martinez DATE OF SERVICE: July 10, 2024 TIME: 8:19 AM PATIENT IDENTITY VERIFICATION COMPLETED USING TWO (2) IDENTIFIERS: Name and Date of confirmed by patient verbally. FALL SCREENING: Has the patient had 2 falls in the last year or 1 fall with injury or currently using an Ambulatory Assistive Device (Walker, Cane, Wheelchair, Crutches, etc.)? No PATIENT GENDER DATA: Assigned female at . status: : No status: NO. PATIENT RELEVANT IMPLANT DATA REVIEWED: Not Applicable PATIENT PRESENTS WITH AN IMPLANTABLE OR ATTACHED STITCHER AROUND: No RADIOLOGY DEPARTMENT: General X-ray: Exam(s) Completed: Pelvis X-Ray: Pelvis with Hip Right PERIPHERAL IV DATA: Not applicable SIGNED BY: RT Jerald(R) July 10, 2024 8:19 AM [facility] 06-27-2024 Telephone encounter Note Notified via NOBOT. [facility] [address] [place] [address] Rd. Chart Copy of medications dispensed to patient for home use June 27, 2024 Physician Initial: ME Morena Martinez Medication: Ozempic 1 mg Qty: 4 boxes Directions: inject 1 mg once a week Medications administered, dispensed and verified on the date indicated above Patient has been notified to product picker medication in Dr. Mas office. Pinky Dawkins MA [facility] 06-27-2024 Miscellaneous Notes Notified via NOBOT. [facility] [address] Chart Copy of medications dispensed to patient for home use June 27, 2024 Physician Initial: ME Morena Martinez Medication: Ozempic 1 mg Qty: 4 boxes Directions: inject 1 mg once a week Medications administered, dispensed and verified on the date indicated above Patient has been notified to product picker medication in Dr. Mas office. Pinky Dawkins MA documented in this encounter [facility] 06-24-2024 Telephone encounter Note [facility] Ambulatory Pharmacy Anticoagulation Clinic Anticoagulation Episode Summary Anticoagulation Care Providers Provider Role Specialty Phone number Milka Mas MD Family Medicine [phone] Morena Martinez is a 59 year old year old female patient being evaluated today for a Telemanagement visit. Patient is currently on the following anticoagulant(s) Warfarin. Labs PT INR (no units) Date Value 07/28/2022 2.7 (pt reported) 03/20/2022 2.7 01/23/2022 2.9 INR Home CoaguChek (no units) Date Value 06/24/2024 2.8 06/03/2024 2.5 05/22/2024 2.8 Hemoglobin (g/dL) Date Value 04/09/2021 15.2 Hematocrit (%) Date Value 04/09/2021 46.7 Platelet Count (k/uL) Date Value 04/09/2021 299 Creatinine (mg/dL) Date Value 02/01/2024 0.76 11/09/2023 0.72 08/09/2023 0.73 03/23/2021 0.60 12/07/2020 0.62 04/01/2020 0.70 Bilirubin, Total (mg/dL) Date Value 02/01/2024 0.7 12/07/2020 0.6 ALT (U/L) Date Value 02/01/2024 16 12/07/2020 33 AST (U/L) Date Value 02/01/2024 17 12/07/2020 35 CrCl cannot be calculated (Unknown ideal weight.). 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: Anticoagulation Episode Summary Current INR goal: 2.0-3.0 Assessment: INR result of 2.8 is therapeutic Plan: Current Warfarin Dosing As of 06/24/2024 Full warfarin instructions: 5 mg every Fri; 7.5 mg all other days Sent NOBOT message Advised patient to continue current weekly dose as noted above Next INR check due on 07/08/2024 Manas Richter RPh Clinical Pharmacist, Pharmacy Anticoagulation Clinic Pharmacy Anticoagulation Clinic Pager: [phone]. [facility] 06-24-2024 Miscellaneous Notes [facility] Ambulatory Pharmacy Anticoagulation Clinic Anticoagulation Episode Summary Anticoagulation Care Providers Provider Role Specialty Phone number Milka Mas MD Family Medicine [phone] Morena Martinez is a 59 year old year old female patient being evaluated today for a Telemanagement visit. Patient is currently on the following anticoagulant(s) Warfarin. Labs PT INR (no units) Date Value 07/28/2022 2.7 (pt reported) 03/20/2022 2.7 01/23/2022 2.9 INR Home CoaguChek (no units) Date Value 06/24/2024 2.8 06/03/2024 2.5 05/22/2024 2.8 Hemoglobin (g/dL) Date Value 04/09/2021 15.2 Hematocrit (%) Date Value 04/09/2021 46.7 Platelet Count (k/uL) Date Value 04/09/2021 299 Creatinine (mg/dL) Date Value 02/01/2024 0.76 11/09/2023 0.72 08/09/2023 0.73 03/23/2021 0.60 12/07/2020 0.62 04/01/2020 0.70 Bilirubin, Total (mg/dL) Date Value 02/01/2024 0.7 12/07/2020 0.6 ALT (U/L) Date Value 02/01/2024 16 12/07/2020 33 AST (U/L) Date Value 02/01/2024 17 12/07/2020 35 CrCl cannot be calculated (Unknown ideal weight.). 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: Anticoagulation Episode Summary Current INR goal: 2.0-3.0 Assessment: INR result of 2.8 is therapeutic Plan: Current Warfarin Dosing As of 06/24/2024 Full warfarin instructions: 5 mg every Fri; 7.5 mg all other days Sent NOBOT message Advised patient to continue current weekly dose as noted above Next INR check due on 07/08/2024 Manas Richter RPh Clinical Pharmacist, Pharmacy Anticoagulation Clinic Pharmacy Anticoagulation Clinic Pager: [phone]. documented in this encounter [facility] 06-13-2024 Telephone encounter Note The following approved medication requests have been transmitted electronically. Requested Prescriptions Signed Prescriptions Disp Refills tiZANidine (ZANAFLEX) 4 mg tablet 30 tablet 5 Sig: Take 1 tablet by mouth every 6 hours as needed. Byron Jolley APRN.CNP [facility] 06-13-2024 Miscellaneous Notes The following approved medication requests have been transmitted electronically. Requested Prescriptions Signed Prescriptions Disp Refills tiZANidine (ZANAFLEX) 4 mg tablet 30 tablet 5 Sig: Take 1 tablet by mouth every 6 hours as needed. Byron Jolley APRN.CNP Prescription Refill Information The patient has been identified by name and date of : Yes Caregiver verified no other encounters exist for this prescription request: Yes Caregiver confirmed with patient/requestor that no other refills are due, in the near future, with this provider at this time: Yes The last office visit in the department: 02/15/24 Does the patient have a future office visit with this provider/department: Yes Requested Prescriptions Pending Prescriptions Disp Refills tiZANidine (ZANAFLEX) 4 mg tablet 30 tablet 5 Sig: Take 1 tablet by mouth every 6 hours as needed. Catrachito Serna MA June 13, 2024 8:27 AM documented in this encounter [facility] 06-13-2024 Telephone encounter Note Prescription Refill Information The patient has been identified by name and date of : Yes Caregiver verified no other encounters exist for this prescription request: Yes Caregiver confirmed with patient/requestor that no other refills are due, in the near future, with this provider at this time: Yes The last office visit in the department: 02/15/24 Does the patient have a future office visit with this provider/department: Yes Requested Prescriptions Pending Prescriptions Disp Refills tiZANidine (ZANAFLEX) 4 mg tablet 30 tablet 5 Sig: Take 1 tablet by mouth every 6 hours as needed. Catrachito Serna MA June 13, 2024 8:27 AM [facility] 06-03-2024 Telephone encounter Note [facility] Ambulatory Pharmacy Anticoagulation Clinic Anticoagulation Episode Summary Anticoagulation Care Providers Provider Role Specialty Phone number Milka Mas MD Family Medicine [phone] Morena Martinez is a 59 year old year old female patient being evaluated today for a Telemanagement visit. Patient is currently on the following anticoagulant(s) Warfarin. Labs PT INR (no units) Date Value 07/28/2022 2.7 (pt reported) 03/20/2022 2.7 01/23/2022 2.9 INR Home CoaguChek (no units) Date Value 06/03/2024 2.5 05/22/2024 2.8 05/06/2024 2.6 Hemoglobin (g/dL) Date Value 04/09/2021 15.2 Hematocrit (%) Date Value 04/09/2021 46.7 Platelet Count (k/uL) Date Value 04/09/2021 299 Creatinine (mg/dL) Date Value 02/01/2024 0.76 11/09/2023 0.72 08/09/2023 0.73 03/23/2021 0.60 12/07/2020 0.62 04/01/2020 0.70 Bilirubin, Total (mg/dL) Date Value 02/01/2024 0.7 12/07/2020 0.6 ALT (U/L) Date Value 02/01/2024 16 12/07/2020 33 AST (U/L) Date Value 02/01/2024 17 12/07/2020 35 CrCl cannot be calculated (Unknown ideal weight.). 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 Embolism and thrombosis (hcc) Anticoagulation Episode Summary Current INR goal: 2.0-3.0 Assessment: INR result of 2.5 is therapeutic Plan: Current Warfarin Dosing As of 06/03/2024 Full warfarin instructions: 5 mg every Fri; 7.5 mg all other days Sent NOBOT message Advised patient to continue current weekly dose as noted above Next home INR check scheduled on 06/17/2024 Patient advised to call the PAC with any medication changes, bleeding/bruising concerns, recent changes in vitamin k consumption, if any procedures are coming up, if they have been ill or in the hospital, and if they have missed any doses of warfarin. Shyla Magdaleno RPh Clinical Pharmacist, Pharmacy Anticoagulation Clinic Pharmacy Anticoagulation Clinic Pager: [phone]. [facility] 06-03-2024 Miscellaneous Notes [facility] Ambulatory Pharmacy Anticoagulation Clinic Anticoagulation Episode Summary Anticoagulation Care Providers Provider Role Specialty Phone number Milka Mas MD Family Medicine [phone] Morena Martinez is a 59 year old year old female patient being evaluated today for a Telemanagement visit. Patient is currently on the following anticoagulant(s) Warfarin. Labs PT INR (no units) Date Value 07/28/2022 2.7 (pt reported) 03/20/2022 2.7 01/23/2022 2.9 INR Home CoaguChek (no units) Date Value 06/03/2024 2.5 05/22/2024 2.8 05/06/2024 2.6 Hemoglobin (g/dL) Date Value 04/09/2021 15.2 Hematocrit (%) Date Value 04/09/2021 46.7 Platelet Count (k/uL) Date Value 04/09/2021 299 Creatinine (mg/dL) Date Value 02/01/2024 0.76 11/09/2023 0.72 08/09/2023 0.73 03/23/2021 0.60 12/07/2020 0.62 04/01/2020 0.70 Bilirubin, Total (mg/dL) Date Value 02/01/2024 0.7 12/07/2020 0.6 ALT (U/L) Date Value 02/01/2024 16 12/07/2020 33 AST (U/L) Date Value 02/01/2024 17 12/07/2020 35 CrCl cannot be calculated (Unknown ideal weight.). 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 Embolism and thrombosis (hcc) Anticoagulation Episode Summary Current INR goal: 2.0-3.0 Assessment: INR result of 2.5 is therapeutic Plan: Current Warfarin Dosing As of 06/03/2024 Full warfarin instructions: 5 mg every Fri; 7.5 mg all other days Sent NOBOT message Advised patient to continue current weekly dose as noted above Next home INR check scheduled on 06/17/2024 Patient advised to call the PAC with any medication changes, bleeding/bruising concerns, recent changes in vitamin k consumption, if any procedures are coming up, if they have been ill or in the hospital, and if they have missed any doses of warfarin. Shyla Magdaleno RPh Clinical Pharmacist, Pharmacy Anticoagulation Clinic Pharmacy Anticoagulation Clinic Pager: [phone]. documented in this encounter [facility] 05-22-2024 Telephone encounter Note [facility] Ambulatory Pharmacy Anticoagulation Clinic Anticoagulation Episode Summary Anticoagulation Care Providers Provider Role Specialty Phone number Milka Mas MD Family Medicine [phone] Mornea Martinez is a 59 year old year old female patient being evaluated today for a Telemanagement visit. Patient is currently on the following anticoagulant(s) Warfarin. Labs PT INR (no units) Date Value 07/28/2022 2.7 (pt reported) 03/20/2022 2.7 01/23/2022 2.9 INR Home CoaguChek (no units) Date Value 05/22/2024 2.8 05/06/2024 2.6 04/11/2024 2.6 Hemoglobin (g/dL) Date Value 04/09/2021 15.2 Hematocrit (%) Date Value 04/09/2021 46.7 Platelet Count (k/uL) Date Value 04/09/2021 299 Creatinine (mg/dL) Date Value 02/01/2024 0.76 11/09/2023 0.72 08/09/2023 0.73 03/23/2021 0.60 12/07/2020 0.62 04/01/2020 0.70 Bilirubin, Total (mg/dL) Date Value 02/01/2024 0.7 12/07/2020 0.6 ALT (U/L) Date Value 02/01/2024 16 12/07/2020 33 AST (U/L) Date Value 02/01/2024 17 12/07/2020 35 CrCl cannot be calculated (Unknown ideal weight.). 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 Embolism and thrombosis (hcc) Anticoagulation Episode Summary Current INR goal: 2.0-3.0 Assessment: INR result of 2.8 is therapeutic Plan: Current Warfarin Dosing As of 05/22/2024 Full warfarin instructions: 5 mg every Fri; 7.5 mg all other days Sent NOBOT message Advised patient to continue current weekly dose as noted above Next home INR check scheduled on 06/05/2024 Patient advised to call the PAC with any medication changes, bleeding/bruising concerns, recent changes in vitamin k consumption, if any procedures are coming up, if they have been ill or in the hospital, and if they have missed any doses of warfarin. Dori Pepper RPh Clinical Pharmacist, Pharmacy Anticoagulation Clinic Pharmacy Anticoagulation Clinic Pager: [phone]. [facility] 05-22-2024 Miscellaneous Notes [facility] Ambulatory Pharmacy Anticoagulation Clinic Anticoagulation Episode Summary Anticoagulation Care Providers Provider Role Specialty Phone number Milka Mas MD Family Medicine [phone] Morena Martinez is a 59 year old year old female patient being evaluated today for a Telemanagement visit. Patient is currently on the following anticoagulant(s) Warfarin. Labs PT INR (no units) Date Value 07/28/2022 2.7 (pt reported) 03/20/2022 2.7 01/23/2022 2.9 INR Home CoaguChek (no units) Date Value 05/22/2024 2.8 05/06/2024 2.6 04/11/2024 2.6 Hemoglobin (g/dL) Date Value 04/09/2021 15.2 Hematocrit (%) Date Value 04/09/2021 46.7 Platelet Count (k/uL) Date Value 04/09/2021 299 Creatinine (mg/dL) Date Value 02/01/2024 0.76 11/09/2023 0.72 08/09/2023 0.73 03/23/2021 0.60 12/07/2020 0.62 04/01/2020 0.70 Bilirubin, Total (mg/dL) Date Value 02/01/2024 0.7 12/07/2020 0.6 ALT (U/L) Date Value 02/01/2024 16 12/07/2020 33 AST (U/L) Date Value 02/01/2024 17 12/07/2020 35 CrCl cannot be calculated (Unknown ideal weight.). 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 Embolism and thrombosis (hcc) Anticoagulation Episode Summary Current INR goal: 2.0-3.0 Assessment: INR result of 2.8 is therapeutic Plan: Current Warfarin Dosing As of 05/22/2024 Full warfarin instructions: 5 mg every Fri; 7.5 mg all other days Sent NOBOT message Advised patient to continue current weekly dose as noted above Next home INR check scheduled on 06/05/2024 Patient advised to call the PAC with any medication changes, bleeding/bruising concerns, recent changes in vitamin k consumption, if any procedures are coming up, if they have been ill or in the hospital, and if they have missed any doses of warfarin. Dori Pepper RPh Clinical Pharmacist, Pharmacy Anticoagulation Clinic Pharmacy Anticoagulation Clinic Pager: [phone]. documented in this encounter [facility] 05-14-2024 Telephone encounter Note Called [email or web address] at [phone] to request refill on Ozempic for pt. According to automated next refill date for Ozempic 1 mg is 05/29/24. Pt will have 2 remaining refills after that. Pt notified via NOBOT. [facility] 05-14-2024 Miscellaneous Notes Called [employer] at [phone] to request refill on Ozempic for pt. According to automated next refill date for Ozempic 1 mg is 05/29/24. Pt will have 2 remaining refills after that. Pt notified via NOBOT. documented in this encounter [facility] 05-06-2024 Telephone encounter Note [facility] Ambulatory Pharmacy Anticoagulation Clinic Anticoagulation Episode Summary Anticoagulation Care Providers Provider Role Specialty Phone number Milka Mas MD Family Medicine [phone] Morena Martinez is a 59 year old year old female patient being evaluated today for a Telemanagement visit. Patient is currently on the following anticoagulant(s) Warfarin. Labs PT INR (no units) Date Value 07/28/2022 2.7 (pt reported) 03/20/2022 2.7 01/23/2022 2.9 INR Home CoaguChek (no units) Date Value 05/06/2024 2.6 04/11/2024 2.6 03/26/2024 2.2 Hemoglobin (g/dL) Date Value 04/09/2021 15.2 Hematocrit (%) Date Value 04/09/2021 46.7 Platelet Count (k/uL) Date Value 04/09/2021 299 Creatinine (mg/dL) Date Value 02/01/2024 0.76 11/09/2023 0.72 08/09/2023 0.73 03/23/2021 0.60 12/07/2020 0.62 04/01/2020 0.70 Bilirubin, Total (mg/dL) Date Value 02/01/2024 0.7 12/07/2020 0.6 ALT (U/L) Date Value 02/01/2024 16 12/07/2020 33 AST (U/L) Date Value 02/01/2024 17 12/07/2020 35 CrCl cannot be calculated (Unknown ideal weight.). 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: Anticoagulation Episode Summary Current INR goal: 2.0-3.0 Assessment: INR result of 2.6 is therapeutic Plan: Current Warfarin Dosing As of 05/06/2024 Full warfarin instructions: 5 mg every Fri; 7.5 mg all other days Sent NOBOT message Advised patient to continue current weekly dose as noted above Next INR check due on 05/20/2024 Manas Richter RPh Clinical Pharmacist, Pharmacy Anticoagulation Clinic Pharmacy Anticoagulation Clinic Pager: [phone]. [facility] 05-06-2024 Miscellaneous Notes [facility] Ambulatory Pharmacy Anticoagulation Clinic Anticoagulation Episode Summary Anticoagulation Care Providers Provider Role Specialty Phone number Milka Mas MD Family Medicine [phone] Morena Martinez is a 59 year old year old female patient being evaluated today for a Telemanagement visit. Patient is currently on the following anticoagulant(s) Warfarin. Labs PT INR (no units) Date Value 07/28/2022 2.7 (pt reported) 03/20/2022 2.7 01/23/2022 2.9 INR Home CoaguChek (no units) Date Value 05/06/2024 2.6 04/11/2024 2.6 03/26/2024 2.2 Hemoglobin (g/dL) Date Value 04/09/2021 15.2 Hematocrit (%) Date Value 04/09/2021 46.7 Platelet Count (k/uL) Date Value 04/09/2021 299 Creatinine (mg/dL) Date Value 02/01/2024 0.76 11/09/2023 0.72 08/09/2023 0.73 03/23/2021 0.60 12/07/2020 0.62 04/01/2020 0.70 Bilirubin, Total (mg/dL) Date Value 02/01/2024 0.7 12/07/2020 0.6 ALT (U/L) Date Value 02/01/2024 16 12/07/2020 33 AST (U/L) Date Value 02/01/2024 17 12/07/2020 35 CrCl cannot be calculated (Unknown ideal weight.). 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: Anticoagulation Episode Summary Current INR goal: 2.0-3.0 Assessment: INR result of 2.6 is therapeutic Plan: Current Warfarin Dosing As of 05/06/2024 Full warfarin instructions: 5 mg every Fri; 7.5 mg all other days Sent NOBOT message Advised patient to continue current weekly dose as noted above Next INR check due on 05/20/2024 Manas Richter RPh Clinical Pharmacist, Pharmacy Anticoagulation Clinic Pharmacy Antico[facility] Pager: [phone]. documented in this encounter [facility] 04-26-2024 Telephone encounter Note Forms signed by patient and completed. These have been faxed to [email or web address] at [phone]. Catrachito Serna MA [facility] 04-26-2024 Miscellaneous Notes Forms signed by patient and completed. These have been faxed to [email or web address] at [phone]. Catrachito Serna MA Pt notified that their is a page she needs to sign. She will come in tomorrow and sign form. Forms at medical records. Will have medical records send back to PCP's office so we can fax them. Pinky Dawkins MA Form done Milka Mas MD Pt dropped off paperwork from [email or web address] that they sent her that needs completed and sent in before 04/30/24. Pt states that company told her this paperwork should be good for the entire year of 2024. Forms on PCP's desk. Pinky Dawkins MA documented in this encounter [facility] 04-25-2024 Telephone encounter Note Pt notified that their is a page she needs to sign. She will come in tomorrow and sign form. Forms at medical records. Will have medical records send back to PCP's office so we can fax them. Pinky Dawkins MA [facility] 04-25-2024 Telephone encounter Note Form done Milka Mas MD [facility] 04-23-2024 Telephone encounter Note Pt notified via mychart. Pinky Dawkins MA [facility] 04-23-2024 Miscellaneous Notes Pt notified via NOBOT. Pinky Dawkins MA Hip XR ordered The labs from May should still be good for June Milka Mas MD Pt would like xray of her right hip. And needs labs re ordered for June. She moved her appt out another 2 months since she has not been on the Ozempic for some time due to pt assistance company not sending it out. Please advise. Pinky Dawkins MA documented in this encounter [facility] 04-23-2024 Telephone encounter Note Hip XR ordered The labs from May should still be good for June Milka Mas MD [facility] 04-23-2024 Telephone encounter Note Pt would like xray of her right hip. And needs labs re ordered for June. She moved her appt out another 2 months since she has not been on the Ozempic for some time due to pt assistance company not sending it out. Please advise. Pinky Dawkins MA [facility] 04-23-2024 Telephone encounter Note Pt dropped off paperwork from [email or web address] that they sent her that needs completed and sent in before 04/30/24. Pt states that company told her this paperwork should be good for the entire year of 2024. Forms on PCP's desk. Pinky Dawkins MA [facility] 04-19-2024 Telephone encounter Note Patient Assistance Medication of Ozempic (2 boxes) picked up by patient. [facility] 04-19-2024 Miscellaneous Notes Patient Assistance Medication of Ozempic (2 boxes) picked up by patient. TC to pt. LM to update Pt her Ozempic came in. Enedelia Madrid LPN documented in this encounter [facility] 04-19-2024 Telephone encounter Note TC to pt. LM to update Pt her Ozempic came in. Enedelia Madrid LPN [facility] 04-12-2024 Telephone encounter Note Office has not received any medication on pt. They did say on 03/22/24 that it would take 10-14 business days to be received, not sure if it might be a little longer since the holiday fell within that time frame. Pt notified of this via [email or web address]. Pinky Dawkins MA [facility] 04-12-2024 Miscellaneous Notes Office has not received any medication on pt. They did say on 03/22/24 that it would take 10-14 business days to be received, not sure if it might be a little longer since the holiday fell within that time frame. Pt notified of this via [employer]. Pinky Dawkins MA documented in this encounter [facility] 04-11-2024 Telephone encounter Note OK to refill as ordered Milka Mas MD [facility] 04-11-2024 Miscellaneous Notes OK to refill as ordered Milka Mas MD Prescription Refill Information The patient has been identified by name and date of : Yes Caregiver verified no other encounters exist for this prescription request: Yes Caregiver confirmed with patient/requestor that no other refills are due, in the near future, with this provider at this time: Yes The last office visit in the department: 02/15/24 Does the patient have a future office visit with this provider/department: Yes 05/17/24 Requested Prescriptions Pending Prescriptions Disp Refills acetaminophen-codeine (TYLENOL-CODEINE #3) 300-30 mg per tablet 60 tablet 2 Sig: Take 1 tablet by mouth two times a day as needed for pain for up to 90 days. Enedelia Madrid LPN April 11, 2024 12:45 PM documented in this encounter [facility] 04-11-2024 Telephone encounter Note Prescription Refill Information The patient has been identified by name and date of : Yes Caregiver verified no other encounters exist for this prescription request: Yes Caregiver confirmed with patient/requestor that no other refills are due, in the near future, with this provider at this time: Yes The last office visit in the department: 02/15/24 Does the patient have a future office visit with this provider/department: Yes 05/17/24 Requested Prescriptions Pending Prescriptions Disp Refills gabapentin (NEURONTIN) 300 mg capsule 90 capsule 1 Sig: Take 1 capsule by mouth daily at bedtime for 180 days. Enedelia Madrid LPN April 11, 2024 12:46 PM [facility] 04-11-2024 Miscellaneous Notes Prescription Refill Information The patient has been identified by name and date of : Yes Caregiver verified no other encounters exist for this prescription request: Yes Caregiver confirmed with patient/requestor that no other refills are due, in the near future, with this provider at this time: Yes The last office visit in the department: 02/15/24 Does the patient have a future office visit with this provider/department: Yes 05/17/24 Requested Prescriptions Pending Prescriptions Disp Refills gabapentin (NEURONTIN) 300 mg capsule 90 capsule 1 Sig: Take 1 capsule by mouth daily at bedtime for 180 days. Enedelia Madrid LPN April 11, 2024 12:46 PM documented in this encounter [facility] 04-11-2024 Telephone encounter Note Prescription Refill Information The patient has been identified by name and date of : Yes Caregiver verified no other encounters exist for this prescription request: Yes Caregiver confirmed with patient/requestor that no other refills are due, in the near future, with this provider at this time: Yes The last office visit in the department: 02/15/24 Does the patient have a future office visit with this provider/department: Yes 05/17/24 Requested Prescriptions Pending Prescriptions Disp Refills acetaminophen-codeine (TYLENOL-CODEINE #3) 300-30 mg per tablet 60 tablet 2 Sig: Take 1 tablet by mouth two times a day as needed for pain for up to 90 days. Enedelia Madrid LPN April 11, 2024 12:45 PM [facility] 03-26-2024 Telephone encounter Note [facility] Ambulatory Pharmacy Anticoagulation Clinic Anticoagulation Episode Summary Anticoagulation Care Providers Provider Role Specialty Phone number Milka Mas MD Family Medicine [phone] Morena J Ridenbaugh is a 59 year old year old female patient being evaluated today for a Telemanagement visit. Patient is currently on the following anticoagulant(s) Warfarin. Labs PT INR (no units) Date Value 07/28/2022 2.7 (pt reported) 03/20/2022 2.7 01/23/2022 2.9 INR Home CoaguChek (no units) Date Value 03/26/2024 2.2 03/05/2024 2.7 02/12/2024 2.4 Hemoglobin (g/dL) Date Value 04/09/2021 15.2 Hematocrit (%) Date Value 04/09/2021 46.7 Platelet Count (k/uL) Date Value 04/09/2021 299 Creatinine (mg/dL) Date Value 02/01/2024 0.76 11/09/2023 0.72 08/09/2023 0.73 03/23/2021 0.60 12/07/2020 0.62 04/01/2020 0.70 Bilirubin, Total (mg/dL) Date Value 02/01/2024 0.7 12/07/2020 0.6 ALT (U/L) Date Value 02/01/2024 16 12/07/2020 33 AST (U/L) Date Value 02/01/2024 17 12/07/2020 35 CrCl cannot be calculated (Unknown ideal weight.). 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: FPC (current) use of anticoagulants Embolism and thrombosis (hcc) Anticoagulation Episode Summary Current INR goal: 2.0-3.0 Assessment: INR result of 2.2 is therapeutic Plan: Current Warfarin Dosing As of 03/26/2024 Full warfarin instructions: 5 mg every Fri; 7.5 mg all other days Sent NOBOT message Advised patient to continue current weekly dose as noted above Next home INR check scheduled on 04/09/2024 Patient advised to call the PAC with any medication changes, bleeding/bruising concerns, recent changes in vitamin k consumption, if any procedures are coming up, if they have been ill or in the hospital, and if they have missed any doses of warfarin. Jamee Hdz RPh Clinical Pharmacist, Pharmacy Anticoagulation Clinic Pharmacy Anticoagulation Clinic Pager: [phone]. [facility] 03-26-2024 Miscellaneous Notes [facility] Ambulatory Pharmacy Anticoagulation Clinic Anticoagulation Episode Summary Anticoagulation Care Providers Provider Role Specialty Phone number Milka Mas MD Family Medicine [phone] Morena Martinez is a 59 year old year old female patient being evaluated today for a Telemanagement visit. Patient is currently on the following anticoagulant(s) Warfarin. Labs PT INR (no units) Date Value 07/28/2022 2.7 (pt reported) 03/20/2022 2.7 01/23/2022 2.9 INR Home CoaguChek (no units) Date Value 03/26/2024 2.2 03/05/2024 2.7 02/12/2024 2.4 Hemoglobin (g/dL) Date Value 04/09/2021 15.2 Hematocrit (%) Date Value 04/09/2021 46.7 Platelet Count (k/uL) Date Value 04/09/2021 299 Creatinine (mg/dL) Date Value 02/01/2024 0.76 11/09/2023 0.72 08/09/2023 0.73 03/23/2021 0.60 12/07/2020 0.62 04/01/2020 0.70 Bilirubin, Total (mg/dL) Date Value 02/01/2024 0.7 12/07/2020 0.6 ALT (U/L) Date Value 02/01/2024 16 12/07/2020 33 AST (U/L) Date Value 02/01/2024 17 12/07/2020 35 CrCl cannot be calculated (Unknown ideal weight.). 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: FPC (current) use of anticoagulants Embolism and thrombosis (hcc) Anticoagulation Episode Summary Current INR goal: 2.0-3.0 Assessment: INR result of 2.2 is therapeutic Plan: Current Warfarin Dosing As of 03/26/2024 Full warfarin instructions: 5 mg every Fri; 7.5 mg all other days Sent NOBOT message Advised patient to continue current weekly dose as noted above Next home INR check scheduled on 04/09/2024 Patient advised to call the PAC with any medication changes, bleeding/bruising concerns, recent changes in vitamin k consumption, if any procedures are coming up, if they have been ill or in the hospital, and if they have missed any doses of warfarin. Jamee Hdz RPh Clinical Pharmacist, Pharmacy Anticoagulation Clinic Pharmacy Anticoagulation Clinic Pager: [phone]. documented in this encounter [facility] 03-21-2024 Telephone encounter Note Form in Byron Jolley's office found. Form faxed to [email or web address] Pt Assistance Program at F#: [phone]. Pt called and notified of this. Pt states she dropped forms off out front and just wanted to make sure that office received them. Catrachito Serna MA [facility] 03-21-2024 Miscellaneous Notes Form in Byron Jolley's office found. Form faxed to [email or web address] Pt Assistance Program at F#: [phone]. Pt called and notified of this. Pt states she dropped forms off out front and just wanted to make sure that office received them. Catrachito Serna MA Pt called in checking on forms, please call once done. Sent message to providers PA to look into finding forms. Patient calls to ask if the provider has received and faxed forms for [employer] Pt [employer]. Patient hand delivered them yesterday 03/19/2024 and was told forms would be given to Byron Jolley and that office would call her once they received them and were faxed. No messages in regards to forms noted. Patient asking to please let her know when they have been received and faxed as she has been out of insulin for approximately a month. Airam Griffith RN documented in this encounter [facility] 03-21-2024 Telephone encounter Note Pt called in checking on forms, please call once done. Sent message to providers PA to look into finding forms. [facility] 03-20-2024 Telephone encounter Note Patient calls to ask if the provider has received and faxed forms for [employer] Pt Assistance Program. Patient hand delivered them yesterday 03/19/2024 and was told forms would be given to Byron Jolley and that office would call her once they received them and were faxed. No messages in regards to forms noted. Patient asking to please let her know when they have been received and faxed as she has been out of insulin for approximately a month. Airam Griffith RN [facility] 03-07-2024 Telephone encounter Note Forms faxed. Pinky Dawkins MA [facility] 03-07-2024 Miscellaneous Notes Forms faxed. Pinky Dawkins MA Type of form: [employer] Pt Assistance Program. Pt completed an form for renewal and is requesting that office complete new form and fax back to Form received via fax When form is completed, Fax form to [phone] Form has been forwarded to Physician Desk: Dr. Starla Serna MA documented in this encounter [facility] 03-07-2024 Telephone encounter Note Type of form: [employer] Pt Assistance Program. Pt completed an form for renewal and is requesting that office complete new form and fax back to Form received via fax When form is completed, Fax form to [phone] Form has been forwarded to Physician Desk: Dr. Starla Serna MA [facility] 03-05-2024 Telephone encounter Note [facility] Ambulatory Pharmacy Anticoagulation Clinic Anticoagulation Episode Summary Anticoagulation Care Providers Provider Role Specialty Phone number Milka Mas MD Family Medicine [phone] Morena Martinez is a 59 year old year old female patient being evaluated today for a Telemanagement visit. Patient is currently on the following anticoagulant(s) Warfarin. Labs PT INR (no units) Date Value 07/28/2022 2.7 (pt reported) 03/20/2022 2.7 01/23/2022 2.9 INR Home CoaguChek (no units) Date Value 03/05/2024 2.7 02/12/2024 2.4 01/29/2024 2.4 Hemoglobin (g/dL) Date Value 04/09/2021 15.2 Hematocrit (%) Date Value 04/09/2021 46.7 Platelet Count (k/uL) Date Value 04/09/2021 299 Creatinine (mg/dL) Date Value 02/01/2024 0.76 11/09/2023 0.72 08/09/2023 0.73 03/23/2021 0.60 12/07/2020 0.62 04/01/2020 0.70 Bilirubin, Total (mg/dL) Date Value 02/01/2024 0.7 12/07/2020 0.6 ALT (U/L) Date Value 02/01/2024 16 12/07/2020 33 AST (U/L) Date Value 02/01/2024 17 12/07/2020 35 CrCl cannot be calculated (Unknown ideal weight.). 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: Anticoagulation Episode Summary Current INR goal: 2.0-3.0 Assessment: INR result of 2.7 is therapeutic Plan: Current Warfarin Dosing As of 03/05/2024 Full warfarin instructions: 5 mg every Fri; 7.5 mg all other days Sent NOBOT message Advised patient to continue current weekly dose as noted above Next home INR check scheduled on 03/19/2024 Patient advised to call the PAC with any medication changes, bleeding/bruising concerns, recent changes in vitamin k consumption, if any procedures are coming up, if they have been ill or in the hospital, and if they have missed any doses of warfarin. Jovanny Peralta RPh Clinical Pharmacist, Pharmacy Anticoagulation Clinic Pharmacy Anticoagulation Clinic Pager: [phone]. [facility] 03-05-2024 Miscellaneous Notes [facility] Ambulatory Pharmacy Anticoagulation Clinic Anticoagulation Episode Summary Anticoagulation Care Providers Provider Role Specialty Phone number Milka Mas MD Family Medicine [phone] Morena Martinez is a 59 year old year old female patient being evaluated today for a Telemanagement visit. Patient is currently on the following anticoagulant(s) Warfarin. Labs PT INR (no units) Date Value 07/28/2022 2.7 (pt reported) 03/20/2022 2.7 01/23/2022 2.9 INR Home CoaguChek (no units) Date Value 03/05/2024 2.7 02/12/2024 2.4 01/29/2024 2.4 Hemoglobin (g/dL) Date Value 04/09/2021 15.2 Hematocrit (%) Date Value 04/09/2021 46.7 Platelet Count (k/uL) Date Value 04/09/2021 299 Creatinine (mg/dL) Date Value 02/01/2024 0.76 11/09/2023 0.72 08/09/2023 0.73 03/23/2021 0.60 12/07/2020 0.62 04/01/2020 0.70 Bilirubin, Total (mg/dL) Date Value 02/01/2024 0.7 12/07/2020 0.6 ALT (U/L) Date Value 02/01/2024 16 12/07/2020 33 AST (U/L) Date Value 02/01/2024 17 12/07/2020 35 CrCl cannot be calculated (Unknown ideal weight.). 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: Anticoagulation Episode Summary Current INR goal: 2.0-3.0 Assessment: INR result of 2.7 is therapeutic Plan: Current Warfarin Dosing As of 03/05/2024 Full warfarin instructions: 5 mg every Fri; 7.5 mg all other days Sent NOBOT message Advised patient to continue current weekly dose as noted above Next home INR check scheduled on 03/19/2024 Patient advised to call the PAC with any medication changes, bleeding/bruising concerns, recent changes in vitamin k consumption, if any procedures are coming up, if they have been ill or in the hospital, and if they have missed any doses of warfarin. Jovanny Peralta RPh Clinical Pharmacist, Pharmacy Anticoagulation Clinic Pharmacy Anticoagulation Clinic Pager: [phone]. documented in this encounter [facility] 02-23-2024 Telephone encounter Note Forms faxed. Pt notified via NOBOT. Pinky Dawkins MA [facility] 02-23-2024 Miscellaneous Notes Forms faxed. Pt notified via NOBOT. Pinky Dawkins MA Form done Milka Mas MD Pt completed forms, attached copy of income and now just needs physician portion completed. Needs done GAVIN as she only has one dose left and will be without until company gets paperwork and sends more medication. Forms on PCP's desk to complete. Forms need faxed [email or web address] Patient Assistance Program at [phone]. Pinky Dawkins MA Pt will product picker. Forms at medical records. Pt notified via NOBOT that new forms are in office to product picker or be mailed. If wanting to product picker, can get at med recs. Will wait til pt responds before sending to med recs. Catrachito Serna MA Received automated message that pt is due for re-enrollment. Spoke with Jesús, due to message received. Per Jesús, the [employer] has changed enrollment forms and she is needing to re-complete this document. Gave [employer] office fax number to fax forms too. Will also route to to help assist pt to get this expedited. Office thought her enrollment was good as she just completed forms 09/2023. Catrachito Serna MA documented in this encounter [facility] 02-23-2024 Telephone encounter Note Form done Milka Mas MD [facility] 02-23-2024 Telephone encounter Note Pt completed forms, attached copy of income and now just needs physician portion completed. Needs done GAVIN as she only has one dose left and will be without until company gets paperwork and sends more medication. Forms on PCP's desk to complete. Forms need faxed [employer] Patient Assistance Program at [phone]. Pinky Dawkins MA [facility] 02-23-2024 Telephone encounter Note Pt will product picker. Forms at medical records. [facility] 02-23-2024 Telephone encounter Note Sw left updated [employer] PAP forms for Ozempic at Dr. Mas office for patient. [facility] 02-23-2024 Miscellaneous Notes Sw left updated [employer] P[employer] forms for Ozempic at Dr. Mas office for patient. documented in this encounter [facility] 02-22-2024 Telephone encounter Note Pt notified via NOBOT that new forms are in office to product picker or be mailed. If wanting to product picker, can get at med recs. Will wait til pt responds before sending to med recs. Catrachito Serna MA [facility] 02-22-2024 Telephone encounter Note Received automated message that pt is due for re-enrollment. Spoke with Jesús, due to message received. Per Jesús, the Company has changed enrollment forms and she is needing to re-complete this document. Gave [facility] office fax number to fax forms too. Will also route to to help assist pt to get this expedited. Office thought her enrollment was good as she just completed forms 09/2023. Catrachito Serna MA [facility] 02-15-2024 History of Presen t illness Narrative Chief Complaint Patient presents with: F/U 3 Month HPI Morena Martinez is a 59 year old female who presents here today for 3 month follow up. No bowel, Gi, or urinary issues. DM/Obesity: Does not check BS at home. Denies any hypoglycemic episodes or neuropathy sx. Tries to watch diet by watching what she eats. Has not been able to walk due to chronic hip pain. Does try but not able to walk far. Does stuff around the home. Weight last visit was 340 lbs, today's weight 343 lbs. Taking Ozempic 1 mg weekly which she is getting through [employer] pt assistance program. Needs this ordered through [email or web address], only has two weeks left. Pain: Chronic pain. Follows with Ortho, but pain is managed through this office. Pt reports she's having increased hip pain, very bothersome. Currently taking Tylenol #3 1 tab po bid, Zanaflex 4 mg prn and Gabapentin 300 mg at bedtime. HTN: Does not check BP at home. No chest pains, dizziness, or SOB. Taking Atenolol 50 mg 1 pill daily as well as Lisinopril 10 mg daily. DVT: Taking Coumadin, INR and coumadin dosages managed by Pharmacist. Edema: Stable with use of Lasix 40 mg every other day. Feels she's still having edema in her right leg despite using medication. Feels it could be related to inflammation from her right hip. Requested thyroid labs due to increased amounts of hair loss and having dry skin. Reports she is clogging the shower drain, clumps on the shower wall and notices it when she's in the bathroom. Feels this has been ongoing for the past month or so. Feels the hair loss on the top of her head, but overall feels it's everywhere. Denies any new hair products. Dealing with increased stress due to Sister being in the [facility]. HM - Agreeable to Flu. Declines Covid vaccine and RSV at this time. Past medical history, appointments, medications, allergies reviewed. 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 Diffuse cystic mastopathy Diverticulosis of colon (without mention of hemorrhage) Diverticulosis DVT of leg (deep venous thrombosis) (HCC) Right leg Hypertension Irritable bowel syndrome Localized osteoarthrosis not specified whether primary or secondary, other specified sites RT KNEE Migraine, unspecified, with intractable migraine, so stated, without mention of status migrainosus Migraine Obesity, unspecified Osteoarthritis of right knee Other and unspecified disc disorder of unspecified region Intervertebral disc disorders Other disorders of bladder Personal history of colonic polyps 01/21/2015 PMH - PAST MEDICAL HISTORY OF 1989 Pulmonary Embolism Previous Surgical History PAST SURGICAL HISTORY Procedure Laterality Date ANESTH DIAGNOSTIC ARTHROSCOPIC PROC KNEE JOINT 1994 LT KNEE ANESTH DIAGNOSTIC ARTHROSCOPIC PROC KNEE JOINT 1994 RT KNEE APPENDECTOMY ARTHRODESIS CMC JNT THUMB W/WO FIX Right 02/21/2018 ARTHROSCOPY KNEE DIAGNOSTIC W/WO SYNOVIAL BX SPX 2007 Right knee ARTHRP KNE CONDYLE&PLATU MEDIAL&LAT COMPARTMENTS Right 06/27/2011 CHOLECYSTECTOMY 1979' Cholecystectomy COLONOSCOPY FLX DX W/COLLJ SPEC WHEN PFRMD 01/21/2015 Repeat 2024 I/D PERIANAL ABSCESS, SUPERFICIAL 08/31/2011 LIG/TRNSXJ FLP TUBE ABDL/VAG APPR UNI/BI REDUCTION OF LARGE BREAST Breast reduction REPAIR ANAL FISTULA W/NICHELLE 12/09/2011 REPAIR OF SHOULDER Left 08/2021 Dr Banks RPR UMBILICAL HRNA 5 YRS/> REDUCIBLE Hernia repair, umbilical >5yr, x2 with mesh TOTAL ABDOMINAL HYSTERECT W/WO RMVL TUBE OVARY Hysterectomy, ARIELLE [place] ECTOPIC W/O SALPING&/OOPHORECTOMY Ectopic Family History FAMILY HISTORY Problem Relation Age of Onset Heart Father [place] age 50, sudden Breast Cancer Mother Coronary Artery Disease Brother Quadruple by-pass age 50 Coronary Artery Disease Sister IA late 30's Stroke Sister other (Other) Brother pulmonary embolism other (Other) Sister pulmonary embolism Heart Sister heart attack age 50, stent Diabetes Sister older sister; obese Patient Allergies ALLERGIES Allergen Reactions Levaquin [Levofloxa* Other: See Comments Notes body aches and joint pain when on medication Augmentin [Amoxicil* Other: See Comments Adverse effect, developed yeast infection Bextra [Valdecoxib] Swelling Ankle swelling Celebrex [Celecoxib] Swelling ankle swelling Erythromycin Rash Latex Lovenox [Enoxaparin* Rash Vioxx [Rofecoxib] Swelling ankle swelling Voltaren [Diclofena* Swelling ankle swelling Current Medications Current Outpatient Medications on File Prior to Visit Medication Sig acetaminophen-codeine (TYLENOL-CODEINE #3) 300-30 mg per tablet Take 1 tablet by mouth two times a day as needed for pain for up to 90 days. atenolol (TENORMIN) 50 mg tablet Taking 50 mg once daily warfarin (COUMADIN) 5 mg tablet 7.5 mg daily lisinopril (ZESTRIL) 10 mg tablet Take 1 tablet by mouth once daily. tiZANidine (ZANAFLEX) 4 mg tablet Take 1 tablet by mouth every 6 hours as needed. gabapentin (NEURONTIN) 300 mg capsule Take 1 capsule by mouth daily at bedtime for 180 days. furosemide (LASIX) 40 mg tablet Take 1 tablet by mouth once daily. semaglutide (OZEMPIC) 1 mg/dose (4 mg/3 mL) pen Inject 1 mg subcutaneously one time a week. nystatin (MYCOSTATIN) cream Apply to affected area twice daily. No current facility-administered medications on file prior to visit. Social History Social History Tobacco Use Smoking status: Former Current packs/day: 0.00 Average packs/day: 0.5 packs/day for 2.0 years (1.0 ttl pk-yrs) Types: Cigarettes Start date: 05/01/1977 Quit date: 05/01/1979 Years since quittin.8 Smokeless tobacco: Never Vaping Use Vaping status: Never Used Substance Use Topics Alcohol use: Not Currently Drug use: No EXAM: BP 136/82 (BP Site: Left Arm, BP Position: Sitting, BP Cuff Size: Regular Adult) Pulse 68 Resp 16 Wt (!) 156 kg (343 lb 14.7 oz) BMI 53.87 kg/m General Appearance: Well appearing, alert, in no acute distress, well-hydrated, well nourished and Morbidly obese. Head: Scalp normal on exam. No hair loss on exam. Normal exam. Lungs: Lungs clear to auscultation. No wheezing, rhonchi, rales.. Heart: RRR without murmur, gallop, or rubs. No ectopy. Health Maintenance List DTaP,Tdap,Td Vaccine(1 - Tdap) Never done Mammogram Screening due on 11/30/2021 Diabetic Foot Exam due on 04/09/2022 Influenza Vaccine(1) due on 12/31/2023 Covid-19 Vaccine(3 - 2023- season) due on 12/31/2023 RSV Vaccine(1 - Risk 60-74 years 1-dose series) Never done Shingrix Vaccine(1 of 2) due on 11/13/2024 HbA1C due on 08/01/2024 Depression Screening due on 08/14/2024 Anxiety Screening due on 08/14/2024 Dilated Retinal Exam due on 09/20/2024 Annual PCP Team Chronic Disease Visit due on 11/13/2024 BP Controlled (<130/80) due on 11/13/2024 Colorectal Cancer Screening due on 01/21/2025 Urine Albumin:Creatinine Ratio due on 01/31/2025 LDL Cholesterol due on 01/31/2025 Hepatitis C Screening Completed Pneumococcal Vaccine Completed Cervical Cancer Screening Discontinued HIV Screening Discontinued Data reviewed Results Only on 02/12/2024 Component Date Value INR Home CoaguChek 02/12/2024 2.4 Appointment on 02/01/2024 Component Date Value Protein, Total 02/01/2024 7.0 Albumin 02/01/2024 3.9 Calcium, Total 02/01/2024 9.5 Bilirubin, Total 02/01/2024 0.7 Alkaline Phosphatase 02/01/2024 64 AST 02/01/2024 17 ALT 02/01/2024 16 Glucose 02/01/2024 118 (H) BUN 02/01/2024 19 Creatinine 02/01/2024 0.76 Sodium 02/01/2024 140 Potassium 02/01/2024 4.6 Chloride 02/01/2024 104 CO2 02/01/2024 26 Anion Gap 02/01/2024 10 Estimated Glomerular Jeffry* 02/01/2024 90 Cholesterol, Total 02/01/2024 178 Triglyceride 02/01/2024 95 HDL Cholesterol 02/01/2024 49 Non HDL Cholesterol 02/01/2024 129 Fasting Time 02/01/2024 12 VLDL Cholesterol 02/01/2024 19 TC:HDL Ratio 02/01/2024 3.63 LDL Cholesterol 02/01/2024 110 (H) LDL:HDL Ratio 02/01/2024 2.24 Hemoglobin A1C 02/01/2024 5.8 (H) Estimated Average Glucose 02/01/2024 120 TSH 02/01/2024 2.280 Free T4 02/01/2024 1.2 Creatinine, Ur Random (U* 02/01/2024 262.9 Albumin, Urine Random 02/01/2024 <12.0 Albumin/Creat Ratio 02/01/2024 <5 Results Only on 01/29/2024 Component Date Value INR Home CoaguChek 01/29/2024 2.4 Results Only on 01/15/2024 Component Date Value INR Home CoaguChek 01/15/2024 2.8 Results Only on 01/01/2024 Component Date Value INR Home CoaguChek 01/01/2024 2.5 Results Only on 12/18/2023 Component Date Value INR Home CoaguChek 12/18/2023 2.2 ASSESSMENT/PLAN: 1. Type 2 diabetes mellitus without complication, without long-term current use of insulin (HCC) - ICD9: 250.00, ICD10: E11.9 (primary diagnosis) - Controlled - Continue current medications - Counseled on healthy diet and regular exercise - COMPREHENSIVE METABOLIC PANEL - LIPID PANEL BASIC - HEMOGLOBIN A1C 2. Essential hypertension, benign - ICD9: 401.1, ICD10: I10 - Controlled - Continue current medications - Recommend home blood pressure monitoring, to bring results to next visit - Encouraged sodium restriction, DASH or Mediterranean diet - Recommend regular aerobic exercise - COMPREHENSIVE METABOLIC PANEL - LIPID PANEL BASIC 3. Mixed hyperlipidemia - ICD9: 272.2, ICD10: E78.2 - Controlled - Continue current medications - Counseled on healthy diet and regular exercise - COMPREHENSIVE METABOLIC PANEL - LIPID PANEL BASIC 4. Embolism and thrombosis (HCC) - ICD9: 453.9, ICD10: I74.9 - Stable - Continue current medication regimen. 5. Right knee pain, unspecified chronicity - ICD9: 719.46, ICD10: M25.561 - Chronic - Continue current medication regimen. 6. Chronic midline low back pain without sciatica - ICD9: 724.2, 338.29, ICD10: M54.50, G89.29 - Chronic - Continue current medication regimen. 7. Class 3 severe obesity due to excess calories with serious comorbidity and body mass index (BMI) of 50.0 to 59.9 in adult (HCC) - ICD9: 278.01, V85.43, ICD10: E66.813, Z68.43, E66.01 - Cont current regimen - cont working on watch diet. 8. Hair loss - ICD9: 704.00, ICD10: L65.9 - Normal exam - Normal labs - Discussed Derm referral, but pt declines. - Will monitor for 3-6 months. 9. Encounter for immunization - ICD9: V03.89, ICD10: Z23 - INFLUENZA VACCINE, AGE 6MO-64YR, TRIVALENT (AFLURIA, FLULAVAL, FLUVIRIN, FLUZONE) - Receive in office today. 3 mo f/u with fasting labs. I agree with the Chief Complaint, ROS, and Past Histories independently gathered by the clinical ground support equipment mechanic and the remaining scribed note accurately describes my personal service to the patient. Medical Decision Making: Problems: Moderate: 2+ stable chronic illnesses Data: Unique test result(s) reviewed: 3+ Unique test(s) ordered: 3+ Risk: Moderate: Drug management Medical Decision Making Level: 4 - Moderate Milka Mas MD The documentation for this note was completed by Catrachito Serna MA acting as scribe for Milka Mas MD. February 15, 2024 9:07 AM. Catrachito Serna MA documented in this encounter [facility] 02-15-2024 Note HNO ID: [id number] Author: MILKA MAS MD Service: ? Author Type: Physician Type: Progress Notes Filed: 02/15/2024 09:55 Note Text: Chief Complaint Patient presents with: F/U 3 Month HPI Morena Martinez is a 59 year old female who presents here today for 3 month follow up. No bowel, Gi, or urinary issues. DM/Obesity: Does not check BS at home. Denies any hypoglycemic episodes or neuropathy sx. Tries to watch diet by watching what she eats. Has not been able to walk due to chronic hip pain. Does try but not able to walk far. Does stuff around the home. Weight last visit was 340 lbs, today's weight 343 lbs. Taking Ozempic 1 mg weekly which she is getting through [email or web address] pt assistance program. Needs this ordered through [email or web address], only has two weeks left. Pain: Chronic pain. Follows with Ortho, but pain is managed through this office. Pt reports she's having increased hip pain, very bothersome. Currently taking Tylenol #3 1 tab po bid, Zanaflex 4 mg prn and Gabapentin 300 mg at bedtime. HTN: Does not check BP at home. No chest pains, dizziness, or SOB. Taking Atenolol 50 mg 1 pill daily as well as Lisinopril 10 mg daily. DVT: Taking Coumadin, INR and coumadin dosages managed by Pharmacist. Edema: Stable with use of Lasix 40 mg every other day. Feels she's still having edema in her right leg despite using medication. Feels it could be related to inflammation from her right hip. Requested thyroid labs due to increased amounts of hair loss and having dry skin. Reports she is clogging the shower drain, clumps on the shower wall and notices it when she's in the bathroom. Feels this has been ongoing for the past month or so. Feels the hair loss on the top of her head, but overall feels it's everywhere. Denies any new hair products. Dealing with increased stress due to Sister being in the Hospital. HM - Agreeable to Flu. Declines Covid vaccine and RSV at this time. Past medical history, appointments, medications, allergies reviewed. 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 Diffuse cystic mastopathy Diverticulosis of colon (without mention of hemorrhage) Diverticulosis DVT of leg (deep venous thrombosis) (HCC) Right leg Hypertension Irritable bowel syndrome Localized osteoarthrosis not specified whether primary or secondary, other specified sites RT KNEE Migraine, unspecified, with intractable migraine, so stated, without mention of status migrainosus Migraine Obesity, unspecified Osteoarthritis of right knee Other and unspecified disc disorder of unspecified region Intervertebral disc disorders Other disorders of bladder Personal history of colonic polyps 01/21/2015 PMH - PAST MEDICAL HISTORY OF 1989 Pulmonary Embolism Previous Surgical History PAST SURGICAL HISTORY Procedure Laterality Date ANESTH DIAGNOSTIC ARTHROSCOPIC PROC KNEE JOINT 1994 LT KNEE ANESTH DIAGNOSTIC ARTHROSCOPIC PROC KNEE JOINT 1994 RT KNEE APPENDECTOMY ARTHRODESIS CMC JNT THUMB W/WO FIX Right 02/21/2018 ARTHROSCOPY KNEE DIAGNOSTIC W/WO SYNOVIAL BX SPX 2007 Right knee ARTHRP KNE CONDYLEANDPLATU MEDIALANDLAT COMPARTMENTS Right 06/27/2011 CHOLECYSTECTOMY 1979' Cholecystectomy COLONOSCOPY FLX DX W/COLLJ SPEC WHEN PFRMD 01/21/2015 Repeat 2024 I/D PERIANAL ABSCESS, SUPERFICIAL 08/31/2011 LIG/TRNSXJ FLP TUBE ABDL/VAG APPR UNI/BI REDUCTION OF LARGE BREAST Breast reduction REPAIR ANAL FISTULA W/NICHELLE 12/09/2011 REPAIR OF SHOULDER Left 08/2021 Dr Banks RPR UMBILICAL HRNA 5 YRS/> REDUCIBLE Hernia repair, umbilical >5yr, x2 with mesh TOTAL ABDOMINAL HYSTERECT W/WO RMVL TUBE OVARY Hysterectomy, ARIELLE [place] ECTOPIC W/O SALPINGAND/OOPHORECTOMY Ectopic Family History FAMILY HISTORY Problem Relation Age of Onset Heart Father [place] age 50, sudden Breast Cancer Mother Coronary Artery Disease Brother Quadruple by-pass age 50 Coronary Artery Disease Sister IA late 30's Stroke Sister other (Other) Brother pulmonary embolism other (Other) Sister pulmonary embolism Heart Sister heart attack age 50, stent Diabetes Sister older sister; obese Patient Allergies ALLERGIES Allergen Reactions Levaquin [Levofloxa* Other: See Comments Notes body aches and joint pain when on medication Augmentin [Amoxicil* Other: See Comments Adverse effect, developed yeast infection Bextra [Valdecoxib] Swelling Ankle swelling Celebrex [Celecoxib] Swelling ankle swelling Erythromycin Rash Latex Lovenox [Enoxaparin* Rash Vioxx [Rofecoxib] Swelling ankle swelling Voltaren [Diclofena* Swelling ankle swelling Current Medications Current Outpatient Medications on File Prior to Visit Medication Sig acetaminophen-codeine (TYLENOL-CODEINE #3) 300-30 mg per tablet Take 1 tablet by mouth two times a day as needed for pain for up t (more content not included)... [facility] 02-12-2024 Telephone encounter Note [facility] Anticoagulation Episode Summary Anticoagulation Care Providers Provider Role Specialty Phone number Milka Mas MD Family Medicine [phone] Morena Martinez is a 59 year old year old female patient being evaluated today for a Telemanagement visit. Patient is currently on the following anticoagulant(s) Warfarin. Labs PT INR (no units) Date Value 07/28/2022 2.7 (pt reported) 03/20/2022 2.7 01/23/2022 2.9 INR Home CoaguChek (no units) Date Value 02/12/2024 2.4 01/29/2024 2.4 01/15/2024 2.8 Hemoglobin (g/dL) Date Value 04/09/2021 15.2 Hematocrit (%) Date Value 04/09/2021 46.7 Platelet Count (k/uL) Date Value 04/09/2021 299 Creatinine (mg/dL) Date Value 02/01/2024 0.76 11/09/2023 0.72 08/09/2023 0.73 03/23/2021 0.60 12/07/2020 0.62 04/01/2020 0.70 Bilirubin, Total (mg/dL) Date Value 02/01/2024 0.7 12/07/2020 0.6 ALT (U/L) Date Value 02/01/2024 16 12/07/2020 33 AST (U/L) Date Value 02/01/2024 17 12/07/2020 35 CrCl cannot be calculated (Unknown ideal weight.). 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: Anticoagulation Episode Summary Current INR goal: 2.0-3.0 Assessment: INR result of 2.4 is therapeutic Plan: Current Warfarin Dosing As of 02/12/2024 Full warfarin instructions: 5 mg every Fri; 7.5 mg all other days Sent NOBOT message Advised patient to continue current weekly dose as noted above Next INR check due on 02/26/2024 Manas Richter RPh Clinical Pharmacist, Pharmacy Anticoagulation Clinic Pharmacy Antico[facility] Pager: [phone]. [facility] 02-12-2024 Miscellaneous Notes [facility] Anticoagulation Episode Summary Anticoagulation Care Providers Provider Role Specialty Phone number Milka Mas MD Family Medicine [phone] Morena Martinez is a 59 year old year old female patient being evaluated today for a Telemanagement visit. Patient is currently on the following anticoagulant(s) Warfarin. Labs PT INR (no units) Date Value 07/28/2022 2.7 (pt reported) 03/20/2022 2.7 01/23/2022 2.9 INR Home CoaguChek (no units) Date Value 02/12/2024 2.4 01/29/2024 2.4 01/15/2024 2.8 Hemoglobin (g/dL) Date Value 04/09/2021 15.2 Hematocrit (%) Date Value 04/09/2021 46.7 Platelet Count (k/uL) Date Value 04/09/2021 299 Creatinine (mg/dL) Date Value 02/01/2024 0.76 11/09/2023 0.72 08/09/2023 0.73 03/23/2021 0.60 12/07/2020 0.62 04/01/2020 0.70 Bilirubin, Total (mg/dL) Date Value 02/01/2024 0.7 12/07/2020 0.6 ALT (U/L) Date Value 02/01/2024 16 12/07/2020 33 AST (U/L) Date Value 02/01/2024 17 12/07/2020 35 CrCl cannot be calculated (Unknown ideal weight.). 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: Anticoagulation Episode Summary Current INR goal: 2.0-3.0 Assessment: INR result of 2.4 is therapeutic Plan: Current Warfarin Dosing As of 02/12/2024 Full warfarin instructions: 5 mg every Fri; 7.5 mg all other days Sent NOBOT message Advised patient to continue current weekly dose as noted above Next INR check due on 02/26/2024 Manas Richter RPh Clinical Pharmacist, Pharmacy Anticoagulation Clinic Pharmacy An[facility] Pager: [phone]. documented in this encounter [facility] 01-29-2024 Telephone encounter Note [facility] Anticoagulation Episode Summary Anticoagulation Care Providers Provider Role Specialty Phone number Milka Mas MD Family Medicine [phone] Morena Martinez is a 59 year old year old female patient being evaluated today for a Telemanagement visit. Patient is currently on the following anticoagulant(s) Warfarin. Labs PT INR (no units) Date Value 07/28/2022 2.7 (pt reported) 03/20/2022 2.7 01/23/2022 2.9 INR Home CoaguChek (no units) Date Value 01/29/2024 2.4 01/15/2024 2.8 01/01/2024 2.5 CrCl cannot be calculated (Unknown ideal weight.). 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: Anticoagulation Episode Summary Current INR goal: 2.0-3.0 Assessment: INR result of 2.4 is therapeutic Plan: Current Warfarin Dosing As of 01/29/2024 Full warfarin instructions: 5 mg every Fri; 7.5 mg all other days Sent NOBOT message Advised patient to continue current weekly dose as noted above Next INR check due on 02/12/2024 Manas Richter RPh Clinical Pharmacist, Pharmacy Anticoagulation Clinic Pharmacy Anticoagulation Clinic Pager: [phone]. [facility] 01-29-2024 Miscellaneous Notes [facility] Anticoagulation Episode Summary Anticoagulation Care Providers Provider Role Specialty Phone number Milka Mas MD Family Medicine [phone] Morena Martinez is a 59 year old year old female patient being evaluated today for a Telemanagement visit. Patient is currently on the following anticoagulant(s) Warfarin. Labs PT INR (no units) Date Value 07/28/2022 2.7 (pt reported) 03/20/2022 2.7 01/23/2022 2.9 INR Home CoaguChek (no units) Date Value 01/29/2024 2.4 01/15/2024 2.8 01/01/2024 2.5 CrCl cannot be calculated (Unknown ideal weight.). 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: Anticoagulation Episode Summary Current INR goal: 2.0-3.0 Assessment: INR result of 2.4 is therapeutic Plan: Current Warfarin Dosing As of 01/29/2024 Full warfarin instructions: 5 mg every Fri; 7.5 mg all other days Sent NOBOT message Advised patient to continue current weekly dose as noted above Next INR check due on 02/12/2024 Manas Richter RPh Clinical Pharmacist, Pharmacy Anticoagulation Clinic Pharmacy Anticoagulation Clinic Pager: [phone]. documented in this encounter [facility] 01-02-2024 Telephone encounter Note Prescription Refill Information The patient has been identified by name and date of : Yes Caregiver verified no other encounters exist for this prescription request: Yes Caregiver confirmed with patient/requestor that no other refills are due, in the near future, with this provider at this time: Yes The last office visit in the department: 11/14/23 Does the patient have a future office visit with this provider/department: Yes Requested Prescriptions Pending Prescriptions Disp Refills acetaminophen-codeine (TYLENOL-CODEINE #3) 300-30 mg per tablet 60 tablet 2 Sig: Take 1 tablet by mouth two times a day as needed for pain for up to 90 days. Catrachito Serna MA January 02, 2024 9:06 AM [facility] 01-02-2024 Miscellaneous Notes Prescription Refill Information The patient has been identified by name and date of : Yes Caregiver verified no other encounters exist for this prescription request: Yes Caregiver confirmed with patient/requestor that no other refills are due, in the near future, with this provider at this time: Yes The last office visit in the department: 11/14/23 Does the patient have a future office visit with this provider/department: Yes Requested Prescriptions Pending Prescriptions Disp Refills acetaminophen-codeine (TYLENOL-CODEINE #3) 300-30 mg per tablet 60 tablet 2 Sig: Take 1 tablet by mouth two times a day as needed for pain for up to 90 days. Catrachito Serna MA January 02, 2024 9:06 AM documented in this encounter [facility] 01-01-2024 Telephone encounter Note [facility] Anticoagulation Episode Summary Anticoagulation Care Providers Provider Role Specialty Phone number Milka Mas MD Family Medicine [phone] Morena Martinez is a 58 year old year old female patient being evaluated today for a Telemanagement visit. Patient is currently on the following anticoagulant(s) Warfarin. Labs PT INR (no units) Date Value 07/28/2022 2.7 (pt reported) 03/20/2022 2.7 01/23/2022 2.9 INR Home CoaguChek (no units) Date Value 01/01/2024 2.5 12/18/2023 2.2 12/04/2023 1.8 Hemoglobin (g/dL) Date Value 04/09/2021 15.2 Hematocrit (%) Date Value 04/09/2021 46.7 Platelet Count (k/uL) Date Value 04/09/2021 299 Creatinine (mg/dL) Date Value 11/09/2023 0.72 08/09/2023 0.73 04/14/2023 0.77 03/23/2021 0.60 12/07/2020 0.62 04/01/2020 0.70 Bilirubin, Total (mg/dL) Date Value 11/09/2023 0.5 12/07/2020 0.6 ALT (U/L) Date Value 11/09/2023 18 12/07/2020 33 AST (U/L) Date Value 11/09/2023 20 12/07/2020 35 CrCl cannot be calculated (Unknown ideal weight.). 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 [facility] 01-01-2024 Miscellaneous Notes [facility] Ambulatory Pharmacy Anticoagulation Clinic Anticoagulation Episode Summary Anticoagulation Care Providers Provider Role Specialty Phone number Milka Mas MD Family Medicine [phone] Morena Martinez is a 58 year old year old female patient being evaluated today for a Telemanagement visit. Patient is currently on the following anticoagulant(s) Warfarin. Labs PT INR (no units) Date Value 07/28/2022 2.7 (pt reported) 03/20/2022 2.7 01/23/2022 2.9 INR Home CoaguChek (no units) Date Value 01/01/2024 2.5 12/18/2023 2.2 12/04/2023 1.8 Hemoglobin (g/dL) Date Value 04/09/2021 15.2 Hematocrit (%) Date Value 04/09/2021 46.7 Platelet Count (k/uL) Date Value 04/09/2021 299 Creatinine (mg/dL) Date Value 11/09/2023 0.72 08/09/2023 0.73 04/14/2023 0.77 03/23/2021 0.60 12/07/2020 0.62 04/01/2020 0.70 Bilirubin, Total (mg/dL) Date Value 11/09/2023 0.5 12/07/2020 0.6 ALT (U/L) Date Value 11/09/2023 18 12/07/2020 33 AST (U/L) Date Value 11/09/2023 20 12/07/2020 35 CrCl cannot be calculated (Unknown ideal weight.). 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: FPC (current) use of anticoagulants Embolism and thrombosis (hcc) Anticoagulation Episode Summary Current INR goal: 2.0-3.0 Assessment: INR result of 2.5 is therapeutic Plan: Current Warfarin Dosing As of 01/01/2024 Full warfarin instructions: 5 mg every Fri; 7.5 mg all other days Sent NOBOT message Advised patient to continue current weekly dose as noted above Next home INR check scheduled on 01/15/2024 Jamee Hdz RPh Clinical Pharmacist, Pharmacy Anticoagulation Clinic Pharmacy Anticoagulation Clinic Pager: [phone]. documented in this encounter [facility] 12-19-2023 Telephone encounter Note Pt called and notified that Rx has been sent into preferred pharmacy. Pt verbalized understanding. Catrachito Serna MA [facility] 12-19-2023 Miscellaneous Notes Pt called and notified that Rx has been sent into preferred pharmacy. Pt verbalized understanding. Catrachito Serna MA OK for 9 day prednisone taper as ordered Milka Mas MD Pt stopped in office today requesting a Prednisone prescription. Last time she took this, this really helped her. She's having increased pain in right hip, b/l knee's and b/l shoulders. Unsure if this is related to a Fibro flare with the weather changing but her Tylenol with Codeine is not helping at this time. Asking if PCP will give steroid taper to get this controlled. Please advise. Pharmacy - [facility]. Catrachito Serna MA documented in this encounter [facility] 12-19-2023 Telephone encounter Note OK for 9 day prednisone taper as ordered Milka Mas MD [facility] 12-19-2023 Telephone encounter Note Pt stopped in office today requesting a Prednisone prescription. Last time she took this, this really helped her. She's having increased pain in right hip, b/l knee's and b/l shoulders. Unsure if this is related to a Fibro flare with the weather changing but her Tylenol with Codeine is not helping at this time. Asking if PCP will give steroid taper to get this controlled. Please advise. Pharmacy - [facility]. Catrachito Serna MA [facility] 12-18-2023 Telephone encounter Note [facility] Ambulatory Pharmacy Anticoagulation Clinic Anticoagulation Episode Summary Anticoagulation Care Providers Provider Role Specialty Phone number Milka Mas MD Family Medicine [phone] Morena Martinez is a 58 year old year old female patient being evaluated today for a Telemanagement visit. Patient is currently on the following anticoagulant(s) Warfarin. Labs PT INR (no units) Date Value 07/28/2022 2.7 (pt reported) 03/20/2022 2.7 01/23/2022 2.9 INR Home CoaguChek (no units) Date Value 12/18/2023 2.2 12/04/2023 1.8 11/20/2023 1.8 Hemoglobin (g/dL) Date Value 04/09/2021 15.2 Hematocrit (%) Date Value 04/09/2021 46.7 Platelet Count (k/uL) Date Value 04/09/2021 299 Creatinine (mg/dL) Date Value 11/09/2023 0.72 08/09/2023 0.73 04/14/2023 0.77 03/23/2021 0.60 12/07/2020 0.62 04/01/2020 0.70 Bilirubin, Total (mg/dL) Date Value 11/09/2023 0.5 12/07/2020 0.6 ALT (U/L) Date Value 11/09/2023 18 12/07/2020 33 AST (U/L) Date Value 11/09/2023 20 12/07/2020 35 CrCl cannot be calculated (Unknown ideal weight.). 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: Anticoagulation Episode Summary Current INR goal: 2.0-3.0 Assessment: INR result of 2.2 is therapeutic Plan: Current Warfarin Dosing As of 12/18/2023 Full warfarin instructions: 5 mg every Fri; 7.5 mg all other days Sent NOBOT message Advised patient to continue current weekly dose as noted above Next home INR check scheduled on 12/25/2023 Jessenia Álvarez RPh Clinical Pharmacist, Pharmacy Anticoagulation Clinic Pharmacy Anticoagulation Clinic Pager: [phone]. [facility] 12-18-2023 Miscellaneous Notes [facility] Ambulatory Pharmacy Anticoagulation Clinic Anticoagulation Episode Summary Anticoagulation Care Providers Provider Role Specialty Phone number Milka Mas MD Family Medicine [phone] Morena Martinez is a 58 year old year old female patient being evaluated today for a Telemanagement visit. Patient is currently on the following anticoagulant(s) Warfarin. Labs PT INR (no units) Date Value 07/28/2022 2.7 (pt reported) 03/20/2022 2.7 01/23/2022 2.9 INR Home CoaguChek (no units) Date Value 12/18/2023 2.2 12/04/2023 1.8 11/20/2023 1.8 Hemoglobin (g/dL) Date Value 04/09/2021 15.2 Hematocrit (%) Date Value 04/09/2021 46.7 Platelet Count (k/uL) Date Value 04/09/2021 299 Creatinine (mg/dL) Date Value 11/09/2023 0.72 08/09/2023 0.73 04/14/2023 0.77 03/23/2021 0.60 12/07/2020 0.62 04/01/2020 0.70 Bilirubin, Total (mg/dL) Date Value 11/09/2023 0.5 12/07/2020 0.6 ALT (U/L) Date Value 11/09/2023 18 12/07/2020 33 AST (U/L) Date Value 11/09/2023 20 12/07/2020 35 CrCl cannot be calculated (Unknown ideal weight.). 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: Anticoagulation Episode Summary Current INR goal: 2.0-3.0 Assessment: INR result of 2.2 is therapeutic Plan: Current Warfarin Dosing As of 12/18/2023 Full warfarin instructions: 5 mg every Fri; 7.5 mg all other days Sent NOBOT message Advised patient to continue current weekly dose as noted above Next home INR check scheduled on 12/25/2023 Jessenia Álvarez RPh Clinical Pharmacist, Pharmacy Anticoagulation Clinic Pharmacy Anticoagulation Clinic Pager: [phone]. documented in this encounter [facility] 12-04-2023 Telephone encounter Note The following approved medication requests have been transmitted electronically. Requested Prescriptions Pending Prescriptions Disp Refills atenolol (TENORMIN) 50 mg tablet 90 tablet 3 Sig: Taking 50 mg once daily warfarin (COUMADIN) 5 mg tablet 129 tablet 4 Si.5 mg daily lisinopril (ZESTRIL) 10 mg tablet 90 tablet 3 Sig: Take 1 tablet by mouth once daily. Byron Jolley APRN.CNP [facility] 12-04-2023 Miscellaneous Notes The following approved medication requests have been transmitted electronically. Requested Prescriptions Pending Prescriptions Disp Refills atenolol (TENORMIN) 50 mg tablet 90 tablet 3 Sig: Taking 50 mg once daily warfarin (COUMADIN) 5 mg tablet 129 tablet 4 Si.5 mg daily lisinopril (ZESTRIL) 10 mg tablet 90 tablet 3 Sig: Take 1 tablet by mouth once daily. Byron Jolley APRN.CNP Prescription Refill Information The patient has been identified by name and date of : Yes Caregiver verified no other encounters exist for this prescription request: Yes Caregiver confirmed with patient/requestor that no other refills are due, in the near future, with this provider at this time: Yes The last office visit in the department: 11/14/2023 Does the patient have a future office visit with this provider/department: Yes Requested Prescriptions Pending Prescriptions Disp Refills atenolol (TENORMIN) 50 mg tablet 90 tablet 3 Sig: Taking 50 mg once daily warfarin (COUMADIN) 5 mg tablet 129 tablet 4 Si.5 mg daily lisinopril (ZESTRIL) 10 mg tablet 90 tablet 3 Sig: Take 1 tablet by mouth once daily. Dianelys Salazar LPN December 04, 2023 12:23 PM documented in this encounter [facility] 12-04-2023 Telephone encounter Note Prescription Refill Information The patient has been identified by name and date of : Yes Caregiver verified no other encounters exist for this prescription request: Yes Caregiver confirmed with patient/requestor that no other refills are due, in the near future, with this provider at this time: Yes The last office visit in the department: 11/14/2023 Does the patient have a future office visit with this provider/department: Yes Requested Prescriptions Pending Prescriptions Disp Refills atenolol (TENORMIN) 50 mg tablet 90 tablet 3 Sig: Taking 50 mg once daily warfarin (COUMADIN) 5 mg tablet 129 tablet 4 Si.5 mg daily lisinopril (ZESTRIL) 10 mg tablet 90 tablet 3 Sig: Take 1 tablet by mouth once daily. Dianelys Salazar LPN December 04, 2023 12:23 PM [facility] 12-04-2023 Telephone encounter Note [facility] Ambulatory Pharmacy Anticoagulation Clinic Anticoagulation Episode Summary Anticoagulation Care Providers Provider Role Specialty Phone number Milka Mas MD Family Medicine [phone] Morena Martinez is a 58 year old year old female patient being evaluated today for a Telemanagement visit. Patient is currently on the following anticoagulant(s) Warfarin. Labs PT INR (no units) Date Value 07/28/2022 2.7 (pt reported) 03/20/2022 2.7 01/23/2022 2.9 INR Home CoaguChek (no units) Date Value 12/04/2023 1.8 11/20/2023 1.8 11/06/2023 2.4 Estimated Creatinine Clearance: 131.2 mL/min (based on SCr of 0.72 mg/dL). 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: Anticoagulation Episode Summary Current INR goal: 2.0-3.0 Assessment: INR result of 1.8 is SUBtherapeutic due to: No obvious cause (patient denies liver, green tea, new herbal/nutritional supplements - such as Boost, Ensure, an increase in vit K foods and/or V8 type juices, any changes in warfarin tablet, or missed doses) Plan: Current Warfarin Dosing As of 12/04/2023 Full warfarin instructions: 5 mg every Fri; 7.5 mg all other days Called and spoke to patient/caregiver Advised patient to increase total weekly regimen Next INR check due on 12/18/2023 Patient verbalizes understanding of the plan. Manas Richter RPh Clinical Pharmacist, Pharmacy Anticoagulation Clinic Pharmacy Anticoagulation Clinic Pager: [phone]. [facility] 12-04-2023 Miscellaneous Notes [facility] Ambulatory Pharmacy Anticoagulation Clinic Anticoagulation Episode Summary Anticoagulation Care Providers Provider Role Specialty Phone number Milka Mas MD Family Medicine [phone] Morena Martinez is a 58 year old year old female patient being evaluated today for a Telemanagement visit. Patient is currently on the following anticoagulant(s) Warfarin. Labs PT INR (no units) Date Value 07/28/2022 2.7 (pt reported) 03/20/2022 2.7 01/23/2022 2.9 INR Home CoaguChek (no units) Date Value 12/04/2023 1.8 11/20/2023 1.8 11/06/2023 2.4 Estimated Creatinine Clearance: 131.2 mL/min (based on SCr of 0.72 mg/dL). 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: Anticoagulation Episode Summary Current INR goal: 2.0-3.0 Assessment: INR result of 1.8 is SUBtherapeutic due to: No obvious cause (patient denies liver, green tea, new herbal/nutritional supplements - such as Boost, Ensure, an increase in vit K foods and/or V8 type juices, any changes in warfarin tablet, or missed doses) Plan: Current Warfarin Dosing As of 12/04/2023 Full warfarin instructions: 5 mg every Fri; 7.5 mg all other days Called and spoke to patient/caregiver Advised patient to increase total weekly regimen Next INR check due on 12/18/2023 Patient verbalizes understanding of the plan. Manas Richter RPh Clinical Pharmacist, Pharmacy Anticoagulation Clinic Pharmacy Anticoagulation Clinic Pager: [phone]. documented in this encounter [facility] 11-20-2023 Telephone encounter Note [facility] Ambulatory Pharmacy Anticoagulation Clinic Anticoagulation Episode Summary Anticoagulation Care Providers Provider Role Specialty Phone number Milka Mas MD Family Medicine [phone] Morena Martinez is a 58 year old year old female patient being evaluated today for a Telemanagement visit. Patient is currently on the following anticoagulant(s) Warfarin. Labs PT INR (no units) Date Value 07/28/2022 2.7 (pt reported) 03/20/2022 2.7 01/23/2022 2.9 INR Home CoaguChek (no units) Date Value 11/20/2023 1.8 11/06/2023 2.4 10/23/2023 2.8 Estimated Creatinine Clearance: 131.2 mL/min (based on SCr of 0.72 mg/dL). 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: Anticoagulation Episode Summary Current INR goal: 2.0-3.0 Assessment: INR result of 1.8 is SUBtherapeutic due to: No obvious cause (patient denies liver, green tea, new herbal/nutritional supplements - such as Boost, Ensure, an increase in vit K foods and/or V8 type juices, any changes in warfarin tablet, or missed doses) Plan: Current Warfarin Dosing As of 11/20/2023 Full warfarin instructions: 11/19: 7.5 mg; Otherwise 5 mg every Mon, Wed, Fri; 7.5 mg all other days Called and spoke to patient/caregiver Advised patient to increase dose for 1 day only then resume weekly regimen Next INR check due on 12/04/2023 Patient verbalizes understanding of the plan. Manas Richter RPh Clinical Pharmacist, Pharmacy Anticoagulation Clinic Pharmacy Anticoagulation Clinic Pager: [phone]. [facility] 11-20-2023 Miscellaneous Notes [facility] Ambulatory Pharmacy Anticoagulation Clinic Anticoagulation Episode Summary Anticoagulation Care Providers Provider Role Specialty Phone number Milka Mas MD Family Medicine [phone] Morena Martinez is a 58 year old year old female patient being evaluated today for a Telemanagement visit. Patient is currently on the following anticoagulant(s) Warfarin. Labs PT INR (no units) Date Value 07/28/2022 2.7 (pt reported) 03/20/2022 2.7 01/23/2022 2.9 INR Home CoaguChek (no units) Date Value 11/20/2023 1.8 11/06/2023 2.4 10/23/2023 2.8 Estimated Creatinine Clearance: 131.2 mL/min (based on SCr of 0.72 mg/dL). 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: Anticoagulation Episode Summary Current INR goal: 2.0-3.0 Assessment: INR result of 1.8 is SUBtherapeutic due to: No obvious cause (patient denies liver, green tea, new herbal/nutritional supplements - such as Boost, Ensure, an increase in vit K foods and/or V8 type juices, any changes in warfarin tablet, or missed doses) Plan: Current Warfarin Dosing As of 11/20/2023 Full warfarin instructions: 11/19: 7.5 mg; Otherwise 5 mg every Mon, Wed, Fri; 7.5 mg all other days Called and spoke to patient/caregiver Advised patient to increase dose for 1 day only then resume weekly regimen Next INR check due on 12/04/2023 Patient verbalizes understanding of the plan. Manas Richter RPh Clinical Pharmacist, Pharmacy Anticoagulation Clinic Pharmacy Anticoagulation Clinic Pager: [phone]. documented in this encounter [facility] 11-14-2023 Telephone encounter Note [facility] [address] Chart Copy of medications dispensed to patient for home use November 14, 2023 Physician Initial: ME Morena Martinez Medication: Ozempic Qty: 4 boxes Directions: Inject 1 mg once a week Medications administered, dispensed and verified on the date indicated above Patient has been notified to product picker medication in Dr. Mas office. Pinky Dawkins MA Pt notified. [facility] 11-14-2023 Miscellaneous Notes [facility] [address] Chart Copy of medications dispensed to patient for home use November 14, 2023 Physician Initial: Morena Mosquedachristiansamantha Medication: Ozempic Qty: 4 boxes Directions: Inject 1 mg once a week Medications administered, dispensed and verified on the date indicated above Patient has been notified to product picker medication in Dr. Mas office. Pinky Dawkins MA Pt notified. documented in this encounter [facility] 11-14-2023 History of Presen t illness Narrative Chief Complaint Patient presents with: F/U 3 Month HPI Morena Martinez is a 58 year old female who presents here today for 3 month follow up. Here today for her routine follow up. No bowel, Gi, or urinary issues. Pain: Chronic pain. Follows with Ortho, but pain is managed through this office. Pt reports she's having increased hip pain, very bothersome. Currently taking Tylenol #3 1 tab po bid, Zanaflex 4 mg prn and Gabapentin 300 mg at bedtime. HTN: Does not check BP at home. No chest pains, dizziness, or SOB. Taking Atenolol 50 mg 1 pill daily as well as Lisinopril 10 mg daily. DM/Obesity: Taking Ozempic 1 mg weekly. Has been out of medication for the past month due to issues with Reji Nordisk. Can tell a big difference with being with out medication. Notes that her energy level is decreased and feels more hungry, but trying to watch this. Does not check BS at home. Denies any hypoglycemic episodes or neuropathy sx. Tries to watch diet, trying to avoid sweets, down to 1 can of pop a day, not eating as much throughout the day. Has not been able to walk due to chronic hip pain. Does try but not able to walk far. Does stuff around the home. Weight last visit was 338 lbs, today 340 lbs. Edema: Stable with use of Lasix 40 mg every other day. When she was seen at the Hospital they felt she had edema. Does note prior to going she was having b/l leg edema. DVT: Taking Coumadin, INR and coumadin dosages managed by Pharmacist. Pt was in the [facility] ER 11/11/23 for LLE wound, dx with cellulitis and treated with 10 days of Keflex 500 mg QID. Currently taking abx and wrapping area. States she hit a bird feeder and was covering the area with a band-aid. When taking off the band-aid it took off skin and she feels that is what caused the cellulitis. Does feel the area has improved since she went to the ED. Reports she's been on multiple abx recently due to infections. HM - Mammogram ordered. Does not follow with Podiatry. Declines Shingles vaccine. Past medical history, appointments, medications, allergies reviewed. 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 Diffuse cystic mastopathy Diverticulosis of colon (without mention of hemorrhage) Diverticulosis DVT of leg (deep venous thrombosis) (HCC) Right leg Hypertension Irritable bowel syndrome Localized osteoarthrosis not specified whether primary or secondary, other specified sites RT KNEE Migraine, unspecified, with intractable migraine, so stated, without mention of status migrainosus Migraine Obesity, unspecified Osteoarthritis of right knee Other and unspecified disc disorder of unspecified region Intervertebral disc disorders Other disorders of bladder Personal history of colonic polyps 01/21/2015 PMH - PAST MEDICAL HISTORY OF 1989 Pulmonary Embolism Previous Surgical History PAST SURGICAL HISTORY Procedure Laterality Date ANESTH DIAGNOSTIC ARTHROSCOPIC PROC KNEE JOINT 1994 LT KNEE ANESTH DIAGNOSTIC ARTHROSCOPIC PROC KNEE JOINT 1994 RT KNEE APPENDECTOMY ARTHRODESIS [facility] JNT THUMB W/WO FIX Right 02/21/2018 ARTHROSCOPY KNEE DIAGNOSTIC W/WO SYNOVIAL BX SPX 2007 Right knee ARTHRP KNE CONDYLE&PLATU MEDIAL&LAT COMPARTMENTS Right 06/27/2011 CHOLECYSTECTOMY 1979' Cholecystectomy COLONOSCOPY FLX DX W/COLLJ SPEC WHEN PFRMD 01/21/2015 Repeat 2024 I/D PERIANAL ABSCESS, SUPERFICIAL 08/31/2011 LIG/TRNSXJ FLP TUBE ABDL/VAG APPR UNI/BI REDUCTION OF LARGE BREAST Breast reduction REPAIR ANAL FISTULA W/NICHELLE 12/09/2011 REPAIR OF SHOULDER Left 08/2021 Dr Banks RPR UMBILICAL HRNA 5 YRS/> REDUCIBLE Hernia repair, umbilical >5yr, x2 with mesh TOTAL ABDOMINAL HYSTERECT W/WO RMVL TUBE OVARY Hysterectomy, ARIELLE [place] ECTOPIC W/O SALPING&/OOPHORECTOMY Ectopic Family History FAMILY HISTORY Problem Relation Age of Onset Heart Father [place] age 50, sudden Breast Cancer Mother Coronary Artery Disease Brother Quadruple by-pass age 50 Coronary Artery Disease Sister IA late 30's Stroke Sister other (Other) Brother pulmonary embolism other (Other) Sister pulmonary embolism Heart Sister heart attack age 50, stent Diabetes Sister older sister; obese Patient Allergies ALLERGIES Allergen Reactions Levaquin [Levofloxa* Other: See Comments Notes body aches and joint pain when on medication Augmentin [Amoxicil* Other: See Comments Adverse effect, developed yeast infection Bextra [Valdecoxib] Swelling Ankle swelling Celebrex [Celecoxib] Swelling ankle swelling Erythromycin Rash Latex Lovenox [Enoxaparin* Rash Vioxx [Rofecoxib] Swelling ankle swelling Voltaren [Diclofena* Swelling ankle swelling Current Medications Current Outpatient Medications on File Prior to Visit Medication Sig gabapentin (NEURONTIN) 300 mg capsule Take 1 capsule by mouth daily at bedtime for 180 days. acetaminophen-codeine (TYLENOL-CODEINE #3) 300-30 mg per tablet Take 1 tablet by mouth two times a day as needed for pain for up to 90 days. furosemide (LASIX) 40 mg tablet Take 1 tablet by mouth once daily. tiZANidine (ZANAFLEX) 4 mg tablet Take 1 tablet by mouth every 6 hours as needed. semaglutide (OZEMPIC) 1 mg/dose (4 mg/3 mL) pen Inject 1 mg subcutaneously one time a week. atenolol (TENORMIN) 50 mg tablet Taking 50 mg once daily warfarin (COUMADIN) 5 mg tablet 7.5 mg daily lisinopril (ZESTRIL) 10 mg tablet Take 1 tablet by mouth once daily. nystatin (MYCOSTATIN) cream Apply to affected area twice daily. furosemide (LASIX) 20 mg tablet Take 1 tablet by mouth once daily. NEEDED No current facility-administered medications on file prior to visit. Social History Social History Tobacco Use Smoking status: Former Packs/day: 0.50 Years: 2.00 Additional pack years: 0.00 Total pack years: 1.00 Types: Cigarettes Quit date: 05/01/1979 Years since quittin.5 Smokeless tobacco: Never Vaping Use Vaping Use: Never used Substance Use Topics Alcohol use: Not Currently Drug use: No EXAM: BP 126/78 (BP Site: Left Arm, BP Position: Sitting, BP Cuff Size: Large Adult) Pulse 76 Resp 18 Wt (!) 154.5 kg (340 lb 9.6 oz) BMI 53.35 kg/m General Appearance: Well appearing, alert, in no acute distress, well-hydrated, well nourished. and Morbidly obese. Skin: Covered with bandage. Improving on exam today, per patient. Lungs: Lungs clear to auscultation. No wheezing, rhonchi, rales.. Heart: RRR without murmur, gallop, or rubs. No ectopy. Extremities: Edema: Left lower leg. Health Maintenance List DTaP,Tdap,Td Vaccine(1 - Tdap) Never done Shingrix Vaccine(1 of 2) Never done BP Controlled (<130/80) due on 09/29/2021 Mammogram Screening due on 11/30/2021 Diabetic Foot Exam due on 04/09/2022 Urine Albumin:Creatinine Ratio due on 06/27/2023 Covid-19 Vaccine(3 - season) due on 08/14/2024 Influenza Vaccine(1) due on 12/31/2023 HbA1C due on 05/11/2024 Annual PCP Team Chronic Disease Visit due on 08/14/2024 Dilated Retinal Exam due on 09/20/2024 LDL Cholesterol due on 11/08/2024 Colorectal Cancer Screening due on 01/21/2025 Behavioral Health Screening Completed Hepatitis C Screening Completed Pneumococcal Vaccine Completed Cervical Cancer Screening Discontinued HIV Screening Discontinued Data reviewed Weight graph Appointment on 11/09/2023 Component Date Value Cholesterol, Total 11/09/2023 162 Triglyceride 11/09/2023 106 HDL Cholesterol 11/09/2023 50 Non HDL Cholesterol 11/09/2023 112 Fasting Time 11/09/2023 12 VLDL Cholesterol 11/09/2023 21 TC:HDL Ratio 11/09/2023 3.24 LDL Cholesterol 11/09/2023 91 LDL:HDL Ratio 11/09/2023 1.82 Protein, Total 11/09/2023 6.7 Albumin 11/09/2023 3.9 Calcium, Total 11/09/2023 9.4 Bilirubin, Total 11/09/2023 0.5 Alkaline Phosphatase 11/09/2023 60 AST 11/09/2023 20 ALT 11/09/2023 18 Glucose 11/09/2023 118 (H) BUN 11/09/2023 18 Creatinine 11/09/2023 0.72 Sodium 11/09/2023 141 Potassium 11/09/2023 4.4 Chloride 11/09/2023 104 CO2 11/09/2023 27 Anion Gap 11/09/2023 10 Estimated Glomerular Jeffry* 11/09/2023 96 Hemoglobin A1C 11/09/2023 5.7 (H) Estimated Average Glucose 11/09/2023 117 Results Only on 11/06/2023 Component Date Value INR Home CoaguChek 11/06/2023 2.4 [facility] ER report 11/11/23 ASSESSMENT/PLAN: 1. Hospital discharge follow-up - ICD9: V67.59, ICD10: Z09 (primary diagnosis) - Stable today improving 2. Cellulitis of left lower leg - ICD9: 682.6, ICD10: L03.116 - Continue with treatment with Keflex; call if not continuing to improve with antibiotic or after it is done 3. Type 2 diabetes mellitus without complication, without long-term current use of insulin (HCC) - ICD9: 250.00, ICD10: E11.9 - Controlled - Continue current medications - Counseled on healthy diet and regular exercise - COMPREHENSIVE METABOLIC PANEL - LIPID PANEL BASIC - HEMOGLOBIN A1C - ALBUMIN/CREATININE RATIO, URINE 4. Embolism and thrombosis (HCC) - ICD9: 453.9, ICD10: I74.9 - Stable - Continue current medication regimen. 5. Essential hypertension, benign - ICD9: 401.1, ICD10: I10 - Controlled - Continue current medications - Recommend home blood pressure monitoring, to bring results to next visit - Encouraged sodium restriction, DASH or Mediterranean diet - Recommend regular aerobic exercise - COMPREHENSIVE METABOLIC PANEL - LIPID PANEL BASIC 6. Mixed hyperlipidemia - ICD9: 272.2, ICD10: E78.2 - Controlled - Counseled on healthy diet and regular exercise - COMPREHENSIVE METABOLIC PANEL - LIPID PANEL BASIC 7. Chronic midline low back pain without sciatica - ICD9: 724.2, 338.29, ICD10: M54.50, G89.29 - Stable - Continue current medication regimen. - TIZANIDINE 4 MG TABLET 8. Right knee pain, unspecified chronicity - ICD9: 719.46, ICD10: M25.561 - Stable - Continue current medication regimen. 9. Leg swelling - ICD9: 729.81, ICD10: M79.89 - Continue with use of Lasix 40 mg 10. Class 3 severe obesity due to excess calories with serious comorbidity and body mass index (BMI) of 50.0 to 59.9 in adult (HCC) - ICD9: 278.01, V85.43, ICD10: E66.01, Z68.43 Stable - Continue watching diet and stay active 3 mo f/u with fasting labs and urine. I agree with the Chief Complaint, ROS, and Past Histories independently gathered by the clinical ground support equipment mechanic and the remaining scribed note accurately describes my personal service to the patient. Medical Decision Making: Problems: Low: Acute, uncomplicated illness or injury Moderate: 2+ stable chronic illnesses Data: Unique test result(s) reviewed: 2 Unique test(s) ordered: 2 Risk: Moderate: Drug management Medical Decision Making Level: 4 - Moderate Milka Mas MD The documentation for this note was completed by Catrachito Serna MA acting as scribe for Milka Mas MD. November 14, 2023 9:10 AM. Catrachito Serna MA documented in this encounter [facility] 11-14-2023 Note HNO ID: [id number] Author: MILKA MAS MD Service: ? Author Type: Physician Type: Progress Notes Filed: 11/14/2023 09:46 Note Text: Chief Complaint Patient presents with: F/U 3 Month HPI Morena Martinez is a 58 year old female who presents here today for 3 month follow up. Here today for her routine follow up. No bowel, Gi, or urinary issues. Pain: Chronic pain. Follows with Ortho, but pain is managed through this office. Pt reports she's having increased hip pain, very bothersome. Currently taking Tylenol #3 1 tab po bid, Zanaflex 4 mg prn and Gabapentin 300 mg at bedtime. HTN: Does not check BP at home. No chest pains, dizziness, or SOB. Taking Atenolol 50 mg 1 pill daily as well as Lisinopril 10 mg daily. DM/Obesity: Taking Ozempic 1 mg weekly. Has been out of medication for the past month due to issues with [employer]. Can tell a big difference with being with out medication. Notes that her energy level is decreased and feels more hungry, but trying to watch this. Does not check BS at home. Denies any hypoglycemic episodes or neuropathy sx. Tries to watch diet, trying to avoid sweets, down to 1 can of pop a day, not eating as much throughout the day. Has not been able to walk due to chronic hip pain. Does try but not able to walk far. Does stuff around the home. Weight last visit was 338 lbs, today 340 lbs. Edema: Stable with use of Lasix 40 mg every other day. When she was seen at the Hospital they felt she had edema. Does note prior to going she was having b/l leg edema. DVT: Taking Coumadin, INR and coumadin dosages managed by Pharmacist. Pt was in the [facility] ER 11/11/23 for LLE wound, dx with cellulitis and treated with 10 days of Keflex 500 mg QID. Currently taking abx and wrapping area. States she hit a bird feeder and was covering the area with a band-aid. When taking off the band-aid it took off skin and she feels that is what caused the cellulitis. Does feel the area has improved since she went to the ED. Reports she's been on multiple abx recently due to infections. HM - Mammogram ordered. Does not follow with Podiatry. Declines Shingles vaccine. Past medical history, appointments, medications, allergies reviewed. 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 Diffuse cystic mastopathy Diverticulosis of colon (without mention of hemorrhage) Diverticulosis DVT of leg (deep venous thrombosis) (HCC) Right leg Hypertension Irritable bowel syndrome Localized osteoarthrosis not specified whether primary or secondary, other specified sites RT KNEE Migraine, unspecified, with intractable migraine, so stated, without mention of status migrainosus Migraine Obesity, unspecified Osteoarthritis of right knee Other and unspecified disc disorder of unspecified region Intervertebral disc disorders Other disorders of bladder Personal history of colonic polyps 01/21/2015 PMH - PAST MEDICAL HISTORY OF 1989 Pulmonary Embolism Previous Surgical History PAST SURGICAL HISTORY Procedure Laterality Date ANESTH DIAGNOSTIC ARTHROSCOPIC PROC KNEE JOINT 1994 LT KNEE ANESTH DIAGNOSTIC ARTHROSCOPIC PROC KNEE JOINT 1994 RT KNEE APPENDECTOMY ARTHRODESIS [facility] JNT THUMB W/WO FIX Right 02/21/2018 ARTHROSCOPY KNEE DIAGNOSTIC W/WO SYNOVIAL BX SPX 2007 Right knee ARTHRP KNE CONDYLEANDPLATU MEDIALANDLAT COMPARTMENTS Right 06/27/2011 CHOLECYSTECTOMY 1979' Cholecystectomy COLONOSCOPY FLX DX W/COLLJ SPEC WHEN PFRMD 01/21/2015 Repeat 2024 I/D PERIANAL ABSCESS, SUPERFICIAL 08/31/2011 LIG/TRNSXJ FLP TUBE ABDL/VAG APPR UNI/BI REDUCTION OF LARGE BREAST Breast reduction REPAIR ANAL FISTULA W/NICHELLE 12/09/2011 REPAIR OF SHOULDER Left 08/2021 Dr Banks RPR UMBILICAL HRNA 5 YRS/> REDUCIBLE Hernia repair, umbilical >5yr, x2 with mesh TOTAL ABDOMINAL HYSTERECT W/WO RMVL TUBE OVARY Hysterectomy, ARIELLE [place] ECTOPIC W/O SALPINGAND/OOPHORECTOMY Ectopic Family History FAMILY HISTORY Problem Relation Age of Onset Heart Father [place] age 50, sudden Breast Cancer Mother Coronary Artery Disease Brother Quadruple by-pass age 50 Coronary Artery Disease Sister IA late 30's Stroke Sister other (Other) Brother pulmonary embolism other (Other) Sister pulmonary embolism Heart Sister heart attack age 50, stent Diabetes Sister older sister; obese Patient Allergies ALLERGIES Allergen Reactions Levaquin [Levofloxa* Other: See Comments Notes body aches and joint pain when on medication Augmentin [Amoxicil* Other: See Comments Adverse effect, developed yeast infection Bextra [Valdecoxib] Swelling Ankle swelling Celebrex [Celecoxib] Swelling ankle swelling Erythromycin Rash Latex Lovenox [Enoxaparin* Rash Vioxx [Rofecoxib] Swelling ankle swelling Voltaren [Diclofena* Swelling ankle swelling Current Medications (more content not included)... [facility] 11-06-2023 Telephone encounter Note [facility] Anticoagulation Episode Summary Anticoagulation Care Providers Provider Role Specialty Phone number Milka Mas MD Family Medicine [phone] Morena Martinez is a 58 year old year old female patient being evaluated today for a Telemanagement visit. Patient is currently on the following anticoagulant(s) Warfarin. Labs PT INR (no units) Date Value 07/28/2022 2.7 (pt reported) 03/20/2022 2.7 01/23/2022 2.9 INR Home CoaguChek (no units) Date Value 11/06/2023 2.4 10/23/2023 2.8 10/16/2023 4.1 Hemoglobin (g/dL) Date Value 04/09/2021 15.2 Hematocrit (%) Date Value 04/09/2021 46.7 Platelet Count (k/uL) Date Value 04/09/2021 299 Creatinine (mg/dL) Date Value 08/09/2023 0.73 04/14/2023 0.77 01/13/2023 0.77 03/23/2021 0.60 12/07/2020 0.62 04/01/2020 0.70 Bilirubin, Total (mg/dL) Date Value 08/09/2023 0.5 12/07/2020 0.6 ALT (U/L) Date Value 08/09/2023 22 12/07/2020 33 AST (U/L) Date Value 08/09/2023 21 12/07/2020 35 Estimated Creatinine Clearance: 129.8 mL/min (based on SCr of 0.73 mg/dL). 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 Patient denies need for refills. Dori Pepper RPh Clinical Pharmacist, Pharmacy Anticoagulation Clinic Pharmacy [facility] Pager: [phone]. [facility] 11-06-2023 Miscellaneous Notes [facility] Anticoagulation Episode Summary Anticoagulation Care Providers Provider Role Specialty Phone number Milka Mas MD Family Medicine [phone] Morena Martinez is a 58 year old year old female patient being evaluated today for a Telemanagement visit. Patient is currently on the following anticoagulant(s) Warfarin. Labs PT INR (no units) Date Value 07/28/2022 2.7 (pt reported) 03/20/2022 2.7 01/23/2022 2.9 INR Home CoaguChek (no units) Date Value 11/06/2023 2.4 10/23/2023 2.8 10/16/2023 4.1 Hemoglobin (g/dL) Date Value 04/09/2021 15.2 Hematocrit (%) Date Value 04/09/2021 46.7 Platelet Count (k/uL) Date Value 04/09/2021 299 Creatinine (mg/dL) Date Value 08/09/2023 0.73 04/14/2023 0.77 01/13/2023 0.77 03/23/2021 0.60 12/07/2020 0.62 04/01/2020 0.70 Bilirubin, Total (mg/dL) Date Value 08/09/2023 0.5 12/07/2020 0.6 ALT (U/L) Date Value 08/09/2023 22 12/07/2020 33 AST (U/L) Date Value 08/09/2023 21 12/07/2020 35 Estimated Creatinine Clearance: 129.8 mL/min (based on SCr of 0.73 mg/dL). 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: FPC (current) use of anticoagulants Embolism and thrombosis (hcc) Anticoagulation Episode Summary Current INR goal: 2.0-3.0 Assessment: INR result of 2.4 is therapeutic Plan: Current Warfarin Dosing As of 11/06/2023 Full warfarin instructions: 5 mg every Mon, Wed, Fri; 7.5 mg all other days Called and spoke to patient/caregiver Advised patient to continue current weekly dose as noted above Next home INR check scheduled on 11/20/2023 Patient verbalizes understanding of the plan. Patient denies need for refills. Dori Pepper RPh Clinical Pharmacist, Pharmacy Anticoagulation Clinic Pharmacy Antico[facility] Clinic Pager: [phone]. documented in this encounter [facility] 10-24-2023 Telephone encounter Note Forms faxed to [email or web address] with note on cover sheet stating that dosage change marked on forms. Pt notified via NOBOT that forms have been faxed. Pinky Dawkins MA [facility] 10-24-2023 Miscellaneous Notes Forms faxed to [email or web address] with note on cover sheet stating that dosage change marked on forms. Pt notified via [email or web address] that forms have been faxed. Pinky Dawkins MA Form done Milka Mas MD Pt dropped of paperwork. Needs completed and medication dosage needs updated to 1 mg weekly of Ozempic Forms on PCP's desk. Will fax to [email or web address] at [phone]. Pinky Dawkins MA Sw spoke with patient about completing new yearly application form for [employer]. Patient reports that she can print off forms and bring them in to Dr. Mas to complete prescription. Patient reports that Ozempic cost her $200 with her [employer] insurance. Sw did note that [employer] provides short term cost assistance help for medications. Sw noted that patient may check with [employer]. Patient notes that she is out of Ozempic and will print off forms and bring them in to office to have Dr. Mas complete and then new dosage will be on forms. Sw spoke with [email or web address] rep in regards to Ozempic PAP issue. Rep notes that they see where they have faxed dosage change form to Dr. Mas office multiple times. Sw discussed patient enrollment in PAP program. Rep notes that patient may reapply now for Ozempic assistance due to her have Medicare Rx on her [employer] Card. Rep notes that would be best way for patient to re-enroll and also update current prescription dose. Sw will call and speak with patient in regards to reapplying to [employer]. Sw can reach out to [email or web address] to see what status is of patient Ozempic refill being sent to office. Pt sent NOBOT message in asking if Ozempic had been delivered to office. At this time we have not received any medication or fax for pt. Pt was notified of this via NOBOT. Office has reached out to this company multiple times. Routed this encounter to Lisa Webb Field Sales Representative to see if she has any other suggestions as office has tried to get this handled with no action from company. Pinky Dawkins MA Was fax received? Called and spoke with Yan from [email or web address] at [phone]. Relayed to him that our office has contacted them on 09/18/23, spoke with Priscila regarding dosage change of Ozempic, increasing to 1 mg. Priscila at that time stated that pt was to have a shipment shipped to office on 09/22/23. A fax was supposed to be sent to our office, never received. Our office contacted them on 10/09/23 asking for this again, but have not received. Per Yan, pt enrolled in November 2022. After speaking with [employer], pt has filled all remaining refills for her enrollment period. Pt received last refill in June. During refills they receive 4 months of refills in each shipment. Pt has had Ozempic increased since May 2023. They can give her an emergency fill to last her to her re-enrollment period as noted below. [employer] states that we are not eligible to receive an Emergency fax. Yan stated he will fax over a re order form and office needs to complete with new dosage and make sure pt ID# [id number] is on form. It will take 48 hours for the form to get into their system and once received they will get processed and shipped to office for pt. Yan was given CORRECT office fax number of [phone], he repeated fax number back. Stated we should receive fax today. Re-enrollment is 12/25/23, pt can do as early as 11/24/23 for the increased dosage. Pt updated on information via NOBOT. Advised once medication was received in office we would call her. Catrachito Serna MA Pt called in and spoke with triage nurse. She stated that while she was on the phone with [employer], company was faxing form over. Advised if nothing received by 5 pm I would let her know. Nothing received via fax as of 5 pm. Notified pt of this via NOBOT. Pinky Dawkins MA Pt notified that office has reached out to [employer] and asked them to fax new paperwork to office so we can update pt dosage. It has been over 24 hours since last speaking with [employer] who was given office fax number and told office they would fax form to provider. Nothing received. Notified pt of this and advised her to reach out to the [employer] as well and have them fax new paper to the office. Pt stated she would, states she only has about half a dose left. Will leave open and watch for form. Pinyk Dawkins MA Call to [email or web address] and spoke with Barbara. Notified her that Office spoke with Priscila on 09/18/23 regarding the increased dosage and the office has been waiting for a form and have not yet received it. She will fax over the paperwork for Provider to sign and fax back. Will watch for fax. Phone call 12 minutes. Catrachito Serna MA Pt is calling to ask if office has heard back from [employer] in regards to Ozempic dosage change. See 09/18/23. Office requested a a dosage change sheet from [employer]. Savita Jean LPN documented in this encounter [facility] 10-24-2023 Telephone encounter Note Form done Milka Mas MD [facility] 10-23-2023 Telephone encounter Note Pt dropped of paperwork. Needs completed and medication dosage needs updated to 1 mg weekly of Ozempic Forms on PCP's desk. Will fax to [employer] at [phone]. Pinky Dawkins MA [facility] 10-23-2023 Telephone encounter Note Sw spoke with patient about completing new yearly application form for [employer]. Patient reports that she can print off forms and bring them in to Dr. Mas to complete prescription. Patient reports that Ozempic cost her $200 with her [employer] insurance. Sw did note that [employer] provides short term cost assistance help for medications. Sw noted that patient may check with [employer]. Patient notes that she is out of Ozempic and will print off forms and bring them in to office to have Dr. Mas complete and then new dosage will be on forms. [facility] 10-23-2023 Telephone encounter Note Sw spoke with [email or web address] rep in regards to Ozempic PAP issue. Rep notes that they see where they have faxed dosage change form to Dr. Mas office multiple times. Sw discussed patient enrollment in PAP program. Rep notes that patient may reapply now for Ozempic assistance due to her have Medicare Rx on her [employer] Card. Rep notes that would be best way for patient to re-enroll and also update current prescription dose. Sw will call and speak with patient in regards to reapplying to [employer]. [facility] 10-23-2023 Telephone encounter Note Sw can reach out to [email or web address] to see what status is of patient Ozempic refill being sent to office. T [facility] 10-20-2023 Telephone encounter Note Pt sent NOBOT message in asking if Ozempic had been delivered to office. At this time we have not received any medication or fax for pt. Pt was notified of this via NOBOT. Office has reached out to this company multiple times. Routed this encounter to Lisa [employer] Sales Representative to see if she has any other suggestions as office has tried to get this handled with no action from company. Pinky Dawkins MA T [facility] 10-20-2023 Telephone encounter Note No shipments of Ozempic have been received in office at this time. Pt notified of this via NOBOT. Pinky Dawkins MA October 20, 2023 10:34 AM T [facility] 10-20-2023 Miscellaneous Notes No shipments of Ozempic have been received in office at this time. Pt notified of this via NOBOT. Pinky Dawkins MA October 20, 2023 10:34 AM documented in this encounter [facility] 10-20-2023 Telephone encounter Note Was fax received? [facility] 10-16-2023 Telephone encounter Note [facility] Anticoagulation Clinic Anticoagulation Episode Summary Anticoagulation Care Providers Provider Role Specialty Phone number Milka Mas MD Family Medicine [phone] Morena Martinez is a 58 year old year old female patient being evaluated today for a Telemanagement visit. Patient is currently on the following anticoagulant(s) Warfarin. Labs PT INR (no units) Date Value 07/28/2022 2.7 (pt reported) 03/20/2022 2.7 01/23/2022 2.9 INR Home CoaguChek (no units) Date Value 10/16/2023 4.1 10/09/2023 3.4 10/02/2023 3.2 Estimated Creatinine Clearance: 129.8 mL/min (based on SCr of 0.73 mg/dL). 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: Anticoagulation Episode Summary Current INR goal: 2.0-3.0 Assessment: INR result of 4.1 is SUPRAtherapeutic due to: No obvious cause (patient denies medication change, grapefruit/cranberry/pomegranate /josé manuel ingestion, OTC medication use, change in herbal/nutritional supplement, accidental overdosage, change in warfarin tablet shape or color, change in vit K consumption, recent illness (NVD, fever), any changes to general health, changes in tobacco use, or EtOH consumption) Plan: Current Warfarin Dosing As of 10/16/2023 Full warfarin instructions: 5 mg every Mon, Wed, Fri; 7.5 mg all other days Called and spoke to patient/caregiver Advised patient to decrease total weekly regimen Next INR check due on 10/23/2023 Patient verbalizes understanding of the plan. Maans Richter RPh Clinical Pharmacist, Pharmacy [facility]tico[facility] Pharm[facility] Pager: [phone]. [facility] 10-16-2023 Miscellaneous Notes [facility] Anticoagulation Clinic Anticoagulation Episode Summary Anticoagulation Care Providers Provider Role Specialty Phone number Milka Mas MD Family Medicine [phone] Morena Martinez is a 58 year old year old female patient being evaluated today for a Telemanagement visit. Patient is currently on the following anticoagulant(s) Warfarin. Labs PT INR (no units) Date Value 07/28/2022 2.7 (pt reported) 03/20/2022 2.7 01/23/2022 2.9 INR Home CoaguChek (no units) Date Value 10/16/2023 4.1 10/09/2023 3.4 10/02/2023 3.2 Estimated Creatinine Clearance: 129.8 mL/min (based on SCr of 0.73 mg/dL). 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: Anticoagulation Episode Summary Current INR goal: 2.0-3.0 Assessment: INR result of 4.1 is SUPRAtherapeutic due to: No obvious cause (patient denies medication change, grapefruit/cranberry/pomegranate /josé manuel ingestion, OTC medication use, change in herbal/nutritional supplement, accidental overdosage, change in warfarin tablet shape or color, change in vit K consumption, recent illness (NVD, fever), any changes to general health, changes in tobacco use, or EtOH consumption) Plan: Current Warfarin Dosing As of 10/16/2023 Full warfarin instructions: 5 mg every Mon, Wed, Fri; 7.5 mg all other days Called and spoke to patient/caregiver Advised patient to decrease total weekly regimen Next INR check due on 10/23/2023 Patient verbalizes understanding of the plan. Manas Richter RPh Clinical Pharmacist, Pharmacy Anticoagulation Clinic Pharmacy An[facility] Pager: [phone]. documented in this encounter [facility] 10-12-2023 Telephone encounter Note Called and spoke with Yan from [email or web address] at [phone]. Relayed to him that our office has contacted them on 09/18/23, spoke with Priscila regarding dosage change of Ozempic, increasing to 1 mg. Priscila at that time stated that pt was to have a shipment shipped to office on 09/22/23. A fax was supposed to be sent to our office, never received. Our office contacted them on 10/09/23 asking for this again, but have not received. Per Yan, pt enrolled in November 2022. After speaking with [employer], pt has filled all remaining refills for her enrollment period. Pt received last refill in June. During refills they receive 4 months of refills in each shipment. Pt has had Ozempic increased since May 2023. They can give her an emergency fill to last her to her re-enrollment period as noted below. [employer] states that we are not eligible to receive an Emergency fax. Yan stated he will fax over a re order form and office needs to complete with new dosage and make sure pt ID# [id number] is on form. It will take 48 hours for the form to get into their system and once received they will get processed and shipped to office for pt. Yan was given CORRECT office fax number of [phone], he repeated fax number back. Stated we should receive fax today. Re-enrollment is 12/25/23, pt can do as early as 11/24/23 for the increased dosage. Pt updated on information via [employer]. Advised once medication was received in office we would call her. Catrachito Serna MA [facility] 10-12-2023 Telephone encounter Note Called and spoke with Yan from [email or web address] at [phone]. Relayed to him that our office has contacted them on 09/18/23, spoke with Priscila regarding dosage change of Ozempic, increasing to 1 mg. Priscila at that time stated that pt was to have a shipment shipped to office on 09/22/23. A fax was supposed to be sent to our office, never received. Our office contacted them on 10/09/23 asking for this again, but have not received. Per Yan, pt enrolled in November 2022. After speaking with [employer], pt has filled all remaining refills for her enrollment period. Pt received last refill in June. During refills they receive 4 months of refills in each shipment. Pt has had Ozempic increased since May 2023. They can give her an emergency fill to last her to her re-enrollment period as noted below. [employer] states that we are not eligible to receive an Emergency fax. Yan stated he will fax over a re order form and office needs to complete with new dosage and make sure pt ID# [id number] is on form. It will take 48 hours for the form to get into their system and once received they will get processed and shipped to office for pt. Yan was given CORRECT office fax number of [phone], he repeated fax number back. Stated we should receive fax today. Re-enrollment is 12/25/23, pt can do as early as 11/24/23 for the increased dosage. Pt updated on information via [employer]. Advised once medication was received in office we would call her. Catrachito Serna MA [facility] 10-12-2023 Miscellaneous Notes Called and spoke with Yan from [email or web address] at [phone]. Relayed to him that our office has contacted them on 09/18/23, spoke with Priscila regarding dosage change of Ozempic, increasing to 1 mg. Priscila at that time stated that pt was to have a shipment shipped to office on 09/22/23. A fax was supposed to be sent to our office, never received. Our office contacted them on 10/09/23 asking for this again, but have not received. Per Yan, pt enrolled in November 2022. After speaking with [employer], pt has filled all remaining refills for her enrollment period. Pt received last refill in June. During refills they receive 4 months of refills in each shipment. Pt has had Ozempic increased since May 2023. They can give her an emergency fill to last her to her re-enrollment period as noted below. [employer] states that we are not eligible to receive an Emergency fax. Yna stated he will fax over a re order form and office needs to complete with new dosage and make sure pt ID# [id number] is on form. It will take 48 hours for the form to get into their system and once received they will get processed and shipped to office for pt. Yan was given CORRECT office fax number of [phone], he repeated fax number back. Stated we should receive fax today. Re-enrollment is 12/25/23, pt can do as early as 11/24/23 for the increased dosage. Pt updated on information via [employer]. Advised once medication was received in office we would call her. Catrachito Serna MA Patient calling, states that they do not have PCP correct fax #. Asking if office can call and let them know the correct number. documented in this encounter [facility] 10-11-2023 Telephone encounter Note Patient calling, states that they do not have PCP correct fax #. Asking if office can call and let them know the correct number. [facility] 10-10-2023 Telephone encounter Note Pt called in and spoke with triage nurse. She stated that while she was on the phone with [employer], company was faxing form over. Advised if nothing received by 5 pm I would let her know. Nothing received via fax as of 5 pm. Notified pt of this via [employer]. Pinky Dawkins MA [facility] 10-10-2023 Telephone encounter Note Pt notified that office has reached out to [employer] and asked them to fax new paperwork to office so we can update pt dosage. It has been over 24 hours since last speaking with [employer] who was given office fax number and told office they would fax form to provider. Nothing received. Notified pt of this and advised her to reach out to the [employer] as well and have them fax new paper to the office. Pt stated she would, states she only has about half a dose left. Will leave open and watch for form. Pinky Dawkins MA T [facility] 10-09-2023 Telephone encounter Note Call to [email or web address] and spoke with Barbraa. Notified her that Office spoke with Priscila on 09/18/23 regarding the increased dosage and the office has been waiting for a form and have not yet received it. She will fax over the paperwork for Provider to sign and fax back. Will watch for fax. Phone call 12 minutes. Catrachito Serna MA [facility] 10-09-2023 Telephone encounter Note Pt is calling to ask if office has heard back from [email or web address] in regards to Ozempic dosage change. See 09/18/23. Office requested a a dosage change sheet from [email or web address]. Savita Jean LPN [facility] 10-09-2023 Telephone encounter Note [facility] Ambulatory Pharmacy Anticoagulation Clinic Anticoagulation Episode Summary Anticoagulation Care Providers Provider Role Specialty Phone number Milka Msa MD Family Medicine [phone] Morena Martinez is a 58 year old year old female patient being evaluated today for a Telemanagement visit. Patient is currently on the following anticoagulant(s) Warfarin. Labs PT INR (no units) Date Value 07/28/2022 2.7 (pt reported) 03/20/2022 2.7 01/23/2022 2.9 INR Home CoaguChek (no units) Date Value 10/09/2023 3.4 10/02/2023 3.2 09/25/2023 4.8 Estimated Creatinine Clearance: 129.8 mL/min (based on SCr of 0.73 mg/dL). 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: Anticoagulation Episode Summary Current INR goal: 2.0-3.0 Assessment: INR result of 3.4 is SUPRAtherapeutic due to: No obvious cause (patient denies medication change, grapefruit/cranberry/pomegranate /josé manuel ingestion, OTC medication use, change in herbal/nutritional supplement, accidental overdosage, change in warfarin tablet shape or color, change in vit K consumption, recent illness (NVD, fever), any changes to general health, changes in tobacco use, or EtOH consumption) Plan: Current Warfarin Dosing As of 10/09/2023 Full warfarin instructions: 7.5 mg every day Called and spoke to patient/caregiver Advised patient to decrease total weekly regimen Next INR check due on 10/16/2023 Patient verbalizes understanding of the plan. Manas Richter RPh Clinical Pharmacist, Pharmacy Anticoagulation Clinic Pharmacy Anticoagulation Clinic Pager: [phone]. [facility] 10-09-2023 Miscellaneous Notes [facility]ulatory Pharm[facility] Anticoagulation Clinic Anticoagulation Episode Summary Anticoagulation Care Providers Provider Role Specialty Phone number Milka Mas MD Family Medicine [phone] Morena Martinez is a 58 year old year old female patient being evaluated today for a Telemanagement visit. Patient is currently on the following anticoagulant(s) Warfarin. Labs PT INR (no units) Date Value 07/28/2022 2.7 (pt reported) 03/20/2022 2.7 01/23/2022 2.9 INR Home CoaguChek (no units) Date Value 10/09/2023 3.4 10/02/2023 3.2 09/25/2023 4.8 Estimated Creatinine Clearance: 129.8 mL/min (based on SCr of 0.73 mg/dL). 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: Anticoagulation Episode Summary Current INR goal: 2.0-3.0 Assessment: INR result of 3.4 is SUPRAtherapeutic due to: No obvious cause (patient denies medication change, grapefruit/cranberry/pomegranate /josé manuel ingestion, OTC medication use, change in herbal/nutritional supplement, accidental overdosage, change in warfarin tablet shape or color, change in vit K consumption, recent illness (NVD, fever), any changes to general health, changes in tobacco use, or EtOH consumption) Plan: Current Warfarin Dosing As of 10/09/2023 Full warfarin instructions: 7.5 mg every day Called and spoke to patient/caregiver Advised patient to decrease total weekly regimen Next INR check due on 10/16/2023 Patient verbalizes understanding of the plan. Manas Richter RPh Clinical Pharmacist, Pharmacy Anticoagulation Clinic Pharmacy Anticoagulation Clinic Pager: [phone]. documented in this encounter [facility] 10-02-2023 Telephone encounter Note [facility] Anticoagulation Clinic Anticoagulation Episode Summary Anticoagulation Care Providers Provider Role Specialty Phone number Milka Mas MD Family Medicine [phone] Morena Martinez is a 58 year old year old female patient being evaluated today for a Telemanagement visit. Patient is currently on the following anticoagulant(s) Warfarin. Labs PT INR (no units) Date Value 07/28/2022 2.7 (pt reported) 03/20/2022 2.7 01/23/2022 2.9 INR Home CoaguChek (no units) Date Value 10/02/2023 3.2 09/25/2023 4.8 09/11/2023 3.4 Estimated Creatinine Clearance: 129.8 mL/min (based on SCr of 0.73 mg/dL). 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: Anticoagulation Episode Summary Current INR goal: 2.0-3.0 Assessment: INR result of 3.2 is SUPRAtherapeutic due to: unknown cause - did not speak to patient Plan: Current Warfarin Dosing As of 10/02/2023 Full warfarin instructions: 10 mg every Mon, Fri; 7.5 mg all other days Left voice message Advised patient to decrease total weekly regimen Next INR check due on 10/09/2023 Patient instructed to call [facility] at [phone] with any questions or concerns. Manas Richter RPh Clinical Pharmacist, Pharmacy Anticoagulation Clinic Pharmacy Anticoagulation Clinic Pager: [phone] [facility] 10-02-2023 Miscellaneous Notes [facility] Ambulatory Pharmacy Anticoagulation Clinic Anticoagulation Episode Summary Anticoagulation Care Providers Provider Role Specialty Phone number Milka Mas MD Family Medicine [phone] Morena Martinez is a 58 year old year old female patient being evaluated today for a Telemanagement visit. Patient is currently on the following anticoagulant(s) Warfarin. Labs PT INR (no units) Date Value 07/28/2022 2.7 (pt reported) 03/20/2022 2.7 01/23/2022 2.9 INR Home CoaguChek (no units) Date Value 10/02/2023 3.2 09/25/2023 4.8 09/11/2023 3.4 Estimated Creatinine Clearance: 129.8 mL/min (based on SCr of 0.73 mg/dL). 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: Anticoagulation Episode Summary Current INR goal: 2.0-3.0 Assessment: INR result of 3.2 is SUPRAtherapeutic due to: unknown cause - did not speak to patient Plan: Current Warfarin Dosing As of 10/02/2023 Full warfarin instructions: 10 mg every Mon, Fri; 7.5 mg all other days Left voice message Advised patient to decrease total weekly regimen Next INR check due on 10/09/2023 Patient instructed to call [facility] at [phone] with any questions or concerns. Manas Richter RPh Clinical Pharmacist, Pharmacy Anticoagulation Clinic Pharmacy Anticoagulation Clinic Pager: [phone] documented in this encounter [facility] 09-26-2023 Telephone encounter Note [facility] Anticoagulation Clinic Anticoagulation Episode Summary Anticoagulation Care Providers Provider Role Specialty Phone number Milka Mas MD Family Medicine [phone] Morena Martinez is a 58 year old year old female patient being evaluated today for a Telemanagement visit. Patient is currently on the following anticoagulant(s) Warfarin. Labs PT INR (no units) Date Value 07/28/2022 2.7 (pt reported) 03/20/2022 2.7 01/23/2022 2.9 INR Home CoaguChek (no units) Date Value 09/25/2023 4.8 09/11/2023 3.4 08/28/2023 2.6 Hemoglobin (g/dL) Date Value 04/09/2021 15.2 Hematocrit (%) Date Value 04/09/2021 46.7 Platelet Count (k/uL) Date Value 04/09/2021 299 Creatinine (mg/dL) Date Value 08/09/2023 0.73 04/14/2023 0.77 01/13/2023 0.77 03/23/2021 0.60 12/07/2020 0.62 04/01/2020 0.70 Bilirubin, Total (mg/dL) Date Value 08/09/2023 0.5 12/07/2020 0.6 ALT (U/L) Date Value 08/09/2023 22 12/07/2020 33 AST (U/L) Date Value 08/09/2023 21 12/07/2020 35 Estimated Creatinine Clearance: 129.8 mL/min (based on SCr of 0.73 mg/dL). 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: Anticoagulation Episode Summary Current INR goal: 2.0-3.0 Assessment: INR result of 4.8 is SUPRAtherapeutic due to: Medication change or drug interaction and Decreased vitamin k intake Finished cephalexin today Plan: Current Warfarin Dosing As of 09/26/2023 Full warfarin instructions: 09/25: 2.5 mg; Otherwise 10 mg every Mon, Wed, Fri; 7.5 mg all other days Called and spoke to patient/caregiver Advised patient to decrease dose for 2 days only then resume weekly regimen as noted above Next home INR check scheduled on 10/03/2023 Patient verbalizes understanding of the plan. Jovanny Peralta RPh Clinical Pharmacist, Pharmacy Anticoagulation Clinic Pharmacy Anticoagulation Clinic Pager: [phone]. [facility] 09-26-2023 Miscellaneous Notes [facility] Anticoagulation Clinic Anticoagulation Episode Summary Anticoagulation Care Providers Provider Role Specialty Phone number Milka Mas MD Family Medicine [phone] Morena Martinez is a 58 year old year old female patient being evaluated today for a Telemanagement visit. Patient is currently on the following anticoagulant(s) Warfarin. Labs PT INR (no units) Date Value 07/28/2022 2.7 (pt reported) 03/20/2022 2.7 01/23/2022 2.9 INR Home CoaguChek (no units) Date Value 09/25/2023 4.8 09/11/2023 3.4 08/28/2023 2.6 Hemoglobin (g/dL) Date Value 04/09/2021 15.2 Hematocrit (%) Date Value 04/09/2021 46.7 Platelet Count (k/uL) Date Value 04/09/2021 299 Creatinine (mg/dL) Date Value 08/09/2023 0.73 04/14/2023 0.77 01/13/2023 0.77 03/23/2021 0.60 12/07/2020 0.62 04/01/2020 0.70 Bilirubin, Total (mg/dL) Date Value 08/09/2023 0.5 12/07/2020 0.6 ALT (U/L) Date Value 08/09/2023 22 12/07/2020 33 AST (U/L) Date Value 08/09/2023 21 12/07/2020 35 Estimated Creatinine Clearance: 129.8 mL/min (based on SCr of 0.73 mg/dL). 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: Anticoagulation Episode Summary Current INR goal: 2.0-3.0 Assessment: INR result of 4.8 is SUPRAtherapeutic due to: Medication change or drug interaction and Decreased vitamin k intake Finished cephalexin today Plan: Current Warfarin Dosing As of 09/26/2023 Full warfarin instructions: 09/25: 2.5 mg; Otherwise 10 mg every Mon, Wed, Fri; 7.5 mg all other days Called and spoke to patient/caregiver Advised patient to decrease dose for 2 days only then resume weekly regimen as noted above Next home INR check scheduled on 10/03/2023 Patient verbalizes understanding of the plan. Jovanny Peralta RPh Clinical Pharmacist, Pharmacy Anticoagulation Clinic Pharmacy Anticoagulation Clinic Pager: [phone]. documented in this encounter [facility] 09-22-2023 Telephone encounter Note Tylenol-Codeine #60 with 2 refill was sent in on 09/18/23 to [facility]. Pt notified via [email or web address] to check with pharmacy. Pinky Dawkins MA [facility] 09-22-2023 Miscellaneous Notes Tylenol-Codeine #60 with 2 refill was sent in on 09/18/23 to [facility]. Pt notified via [employer] to check with pharmacy. Pinky Dawkins MA documented in this encounter [facility] 09-18-2023 Telephone encounter Note Pt notified via [email or web address]. Pinky Dawkins MA [facility] 09-18-2023 Miscellaneous Notes Pt notified via [employer]. Pinky Dawkins MA OK for another 7 days of Keflex Milka Mas MD Pt stopped in office with a few questions she would like addressed. Needs refill, see pended Rx below. Pt stated she was seen in on 09/07/23 for a skin infection in her belly button. Was treated with Keflex 500 mg 1 caps TID for 7 days, Bactroban Ointment and Diflucan. She's currently on the last day of abx. The area smells and there is some blood still, but no swelling or redness at the area but does have pain. Wondering if she needs a longer course of abx? Please notify pt. Pt assistance: She has only a few pens left of the Ozempic but her dosage was increased to 1 mg weekly. Asked if we could contact [employer] to get this changed. Pt previously getting the Ozempic 0.25 mg/0.5 mg weekly. Contacted [employer] at [phone] and spoke with Priscila. They are faxing over a dosage change sheet to office to be completed and faxed back. Once received they will send out new dosage. Current refill due around 09/22/23. Catrachito Serna MA Pt requesting refill for Tylenol #3. Notified her that form for Ozempic was completed in 12/21. Nothing new received in office at this time. Patient has been identified by name and date of : Yes, Provider Dr. Mas Date September 18, 2023 Time 8:24 AM Patient mychart for refill(s): Requested Prescriptions Pending Prescriptions Disp Refills acetaminophen-codeine (TYLENOL-CODEINE #3) 300-30 mg per tablet 60 tablet 2 Sig: Take 1 tablet by mouth two times a day as needed for pain for up to 90 days. Date of last office visit in primary care: 08/15/2023 Date of next office visit in primary care: 11/14/2023 Last Rx: 06/05/23 #60 w/2. Please advise. Thank you. Catrachito Serna MA. documented in this encounter [facility] 09-18-2023 Telephone encounter Note OK for another 7 days of Keflex Milka Mas MD [facility] 09-18-2023 Telephone encounter Note Pt stopped in office with a few questions she would like addressed. Needs refill, see pended Rx below. Pt stated she was seen in on 09/07/23 for a skin infection in her belly button. Was treated with Keflex 500 mg 1 caps TID for 7 days, Bactroban Ointment and Diflucan. She's currently on the last day of abx. The area smells and there is some blood still, but no swelling or redness at the area but does have pain. Wondering if she needs a longer course of abx? Please notify pt. Pt assistance: She has only a few pens left of the Ozempic but her dosage was increased to 1 mg weekly. Asked if we could contact Josh to get this changed. Pt previously getting the Ozempic 0.25 mg/0.5 mg weekly. Contacted [facility] at [phone] and spoke with Priscila. They are faxing over a dosage change sheet to office to be completed and faxed back. Once received they will send out new dosage. Current refill due around 09/22/23. Catrachito Serna MA [facility] 09-18-2023 Telephone encounter Note Pt requesting refill for Tylenol #3. Notified her that form for Ozempic was completed in 12/21. Nothing new received in office at this time. Patient has been identified by name and date of : Yes, Provider Dr. Mas Date September 18, 2023 Time 8:24 AM Patient mychart for refill(s): Requested Prescriptions Pending Prescriptions Disp Refills acetaminophen-codeine (TYLENOL-CODEINE #3) 300-30 mg per tablet 60 tablet 2 Sig: Take 1 tablet by mouth two times a day as needed for pain for up to 90 days. Date of last office visit in primary care: 08/15/2023 Date of next office visit in primary care: 11/14/2023 Last Rx: 06/05/23 #60 w/2. Please advise. Thank you. Catrachito Serna MA. [facility] 09-11-2023 Telephone encounter Note [facility] Anticoagulation Clinic Anticoagulation Episode Summary Anticoagulation Care Providers Provider Role Specialty Phone number Milka Mas MD Family Medicine [phone] Morena Martinez is a 58 year old year old female patient being evaluated today for a Telemanagement visit. Patient is currently on the following anticoagulant(s) Warfarin. Labs PT INR (no units) Date Value 07/28/2022 2.7 (pt reported) 03/20/2022 2.7 01/23/2022 2.9 INR Home CoaguChek (no units) Date Value 09/11/2023 3.4 08/28/2023 2.6 08/14/2023 3.1 Estimated Creatinine Clearance: 129.8 mL/min (based on SCr of 0.73 mg/dL). 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: Anticoagulation Episode Summary Current INR goal: 2.0-3.0 Assessment: INR result of 3.4 is SUPRAtherapeutic due to: drug interaction (fluconazole on 09/07/23) Plan: Current Warfarin Dosing As of 09/11/2023 Full warfarin instructions: 09/10: 5 mg; Otherwise 10 mg every Mon, Wed, Fri; 7.5 mg all other days Called and spoke to patient/caregiver Advised patient to decrease dose for 1 day only then resume weekly regimen Next INR check due on 09/26/2023 Patient verbalizes understanding of the plan. Manas Richter RPh Clinical Pharmacist, Pharmacy Anticoagulation Clinic Pharmacy Anticoagulation [facility] Pager: [phone]. [facility] 09-11-2023 Miscellaneous Notes [facility] Anticoagulation Clinic Anticoagulation Episode Summary Anticoagulation Care Providers Provider Role Specialty Phone number Milka Mas MD Family Medicine [phone] Morena Martinez is a 58 year old year old female patient being evaluated today for a Telemanagement visit. Patient is currently on the following anticoagulant(s) Warfarin. Labs PT INR (no units) Date Value 07/28/2022 2.7 (pt reported) 03/20/2022 2.7 01/23/2022 2.9 INR Home CoaguChek (no units) Date Value 09/11/2023 3.4 08/28/2023 2.6 08/14/2023 3.1 Estimated Creatinine Clearance: 129.8 mL/min (based on SCr of 0.73 mg/dL). 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: Anticoagulation Episode Summary Current INR goal: 2.0-3.0 Assessment: INR result of 3.4 is SUPRAtherapeutic due to: drug interaction (fluconazole on 09/07/23) Plan: Current Warfarin Dosing As of 09/11/2023 Full warfarin instructions: 09/10: 5 mg; Otherwise 10 mg every Mon, Wed, Fri; 7.5 mg all other days Called and spoke to patient/caregiver Advised patient to decrease dose for 1 day only then resume weekly regimen Next INR check due on 09/26/2023 Patient verbalizes understanding of the plan. Manas Richter RPh Clinical Pharmacist, Pharmacy Anticoagulation Clinic Pharmacy Anticoagulation Clinic Pager: [phone]. documented in this encounter [facility] 09-10-2023 Telephone encounter Note Patient identified by name and date of . Reviewed skin culture results with patient. She states the redness is improving, she is advised to finish medications as prescribed and follow up with PCP if not completely resolved when medication course is completed. Lizette Akbar APRN.JOHN [facility] 09-10-2023 Miscellaneous Notes Patient identified by name and date of . Reviewed skin culture results with patient. She states the redness is improving, she is advised to finish medications as prescribed and follow up with PCP if not completely resolved when medication course is completed. Lizette Akbar APRN.REFINERY OPERATOR [employer] documented in this encounter [facility] 09-07-2023 Instructions Lizette Akbar APRN.CNP - 09/07/2023 5:07 PM EDT ASSESSMENT/PLAN: 1. Skin infection - ICD9: 686.9, ICD10: L08.9 - may be combination yeast/bacterial - Begin treatment with Cephalaxin (Keflex) - ABSCESS AND WOUND CULTURE WITH GRAM STAIN - MUPIROCIN 2 % TOPICAL OINTMENT - FLUCONAZOLE (DIFLUCAN) 150 MG TABLET Lizette Akbar APRN.REFINERY OPERATOR [employer] documented in this encounter [facility] 09-07-2023 History of Presen t illness Narrative Images from the original note were not included. Subjective HPI Morena Martinez is a 58 year old female who presents with infected navel. She has been using mupirocin at home. Has noticed some bloody drainage from the area when she cleans it. She denies fever and chills. States the area smells bad. Review of Systems Constitutional: Negative for chills and fever. Musculoskeletal: Negative for joint pain and myalgias. Skin: Negative for itching and rash. 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 Diffuse cystic mastopathy Diverticulosis of colon (without mention of hemorrhage) Diverticulosis DVT of leg (deep venous thrombosis) (HCC) Right leg Hypertension Irritable bowel syndrome Localized osteoarthrosis not specified whether primary or secondary, other specified sites RT KNEE Migraine, unspecified, with intractable migraine, so stated, without mention of status migrainosus Migraine Obesity, unspecified Osteoarthritis of right knee Other and unspecified disc disorder of unspecified region Intervertebral disc disorders Other disorders of bladder Personal history of colonic polyps 01/21/2015 PMH - PAST MEDICAL HISTORY OF 1989 Pulmonary Embolism PAST SURGICAL HISTORY Procedure Laterality Date ANESTH DIAGNOSTIC ARTHROSCOPIC PROC KNEE JOINT 1994 LT KNEE ANESTH DIAGNOSTIC ARTHROSCOPIC PROC KNEE JOINT 1994 RT KNEE APPENDECTOMY ARTHRODESIS CMC JNT THUMB W/WO FIX Right 02/21/2018 ARTHROSCOPY KNEE DIAGNOSTIC W/WO SYNOVIAL BX SPX 2007 Right knee ARTHRP KNE CONDYLE&PLATU MEDIAL&LAT COMPARTMENTS Right 06/27/2011 CHOLECYSTECTOMY Cholecystectomy COLONOSCOPY FLX DX W/COLLJ SPEC WHEN PFRMD 01/21/2015 Repeat 2024 I/D PERIANAL ABSCESS, SUPERFICIAL 08/31/2011 LIG/TRNSXJ FLP TUBE ABDL/VAG APPR UNI/BI REDUCTION OF LARGE BREAST Breast reduction REPAIR ANAL FISTULA W/NICHELLE 12/09/2011 REPAIR OF SHOULDER Left 08/2021 Dr Banks RPR UMBILICAL HRNA 5 YRS/> REDUCIBLE Hernia repair, umbilical >5yr, x2 with mesh TOTAL ABDOMINAL HYSTERECT W/WO RMVL TUBE OVARY Hysterectomy, ARIELLE [place] ECTOPIC W/O SALPING&/OOPHORECTOMY Ectopic ALLERGIES Levaquin [Levofloxacin], Augmentin [Amoxicillin-Pot Clavulanate], Bextra [Valdecoxib], Celebrex [Celecoxib], Erythromycin, Latex, Lovenox [Enoxaparin Sodium], Vioxx [Rofecoxib], and Voltaren [Diclofenac Sodium] MEDICATIONS fluconazole (DIFLUCAN) 150 mg tablet Take 1 tablet by mouth one time only for 1 dose. Repeat in 3 days as needed. cephALEXin (KEFLEX) 500 mg capsule Take 1 capsule by mouth three times a day for 7 days. mupirocin (BACTROBAN) 2 % ointment Apply 1 application to affected area three times a day for 10 days. furosemide (LASIX) 40 mg tablet Take 1 tablet by mouth once daily. tiZANidine (ZANAFLEX) 4 mg tablet Take 1 tablet by mouth every 6 hours as needed. semaglutide (OZEMPIC) 1 mg/dose (4 mg/3 mL) pen Inject 1 mg subcutaneously one time a week. gabapentin (NEURONTIN) 300 mg capsule Take 1 capsule by mouth daily at bedtime for 180 days. atenolol (TENORMIN) 50 mg tablet Taking 50 mg once daily warfarin (COUMADIN) 5 mg tablet 7.5 mg daily lisinopril (ZESTRIL) 10 mg tablet Take 1 tablet by mouth once daily. nystatin (MYCOSTATIN) cream Apply to affected area twice daily. furosemide (LASIX) 20 mg tablet Take 1 tablet by mouth once daily. NEEDED FAMILY HISTORY Problem Relation Age of Onset Heart Father [place] age 50, sudden Breast Cancer Mother Coronary Artery Disease Brother Quadruple by-pass age 50 Coronary Artery Disease Sister IA late 30's Stroke Sister other (Other) Brother pulmonary embolism other (Other) Sister pulmonary embolism Heart Sister heart attack age 50, stent Diabetes Sister older sister; obese Social History Tobacco Use Smoking status: Former Packs/day: 0.50 Years: 2.00 Additional pack years: 0.00 Total pack years: 1.00 Types: Cigarettes Quit date: 05/01/1979 Years since quittin.3 Smokeless tobacco: Never Vaping Use Vaping Use: Never used Substance Use Topics Alcohol use: Not Currently Drug use: No Objective Physical Exam Vitals and nursing note reviewed. Constitutional: General: She is not in acute distress. Appearance: Normal appearance. She is obese. She is not ill-appearing. Skin: General: Skin is warm and dry. Findings: Erythema and rash present. No bruising. Neurological: Mental Status: She is alert. ASSESSMENT/PLAN: 1. 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 Pinky Dawkins MA [facility] 09-07-2023 Miscellaneous Notes Pt notified via [employer] that she needs appt. Pinky Dawkins MA It may be infected and need an antibiotic; should be seen to be evaluated Milka Mas MD Please review pt message and advise. Catrachito Serna MA documented in this encounter [facility] 09-07-2023 Telephone encounter Note It may be infected and need an antibiotic; should be seen to be evaluated Milka Mas MD [facility] 09-07-2023 Telephone encounter Note Please review pt message and advise. Catrachito Serna MA [facility] 08-28-2023 Telephone encounter Note [facility]ulatory Pharmacy Anticoagulation Clinic Anticoagulation Episode Summary Anticoagulation Care Providers Provider Role Specialty Phone number Milka Mas MD Family Medicine [phone] Morena Martinez is a 58 year old year old female patient being evaluated today for a Telemanagement visit. Patient is currently on the following anticoagulant(s) Warfarin. Labs PT INR (no units) Date Value 07/28/2022 2.7 (pt reported) 03/20/2022 2.7 01/23/2022 2.9 INR Home CoaguChek (no units) Date Value 08/28/2023 2.6 08/14/2023 3.1 07/31/2023 2.6 Hemoglobin (g/dL) Date Value 04/09/2021 15.2 Hematocrit (%) Date Value 04/09/2021 46.7 Platelet Count (k/uL) Date Value 04/09/2021 299 Creatinine (mg/dL) Date Value 08/09/2023 0.73 04/14/2023 0.77 01/13/2023 0.77 03/23/2021 0.60 12/07/2020 0.62 04/01/2020 0.70 Bilirubin, Total (mg/dL) Date Value 08/09/2023 0.5 12/07/2020 0.6 ALT (U/L) Date Value 08/09/2023 22 12/07/2020 33 AST (U/L) Date Value 08/09/2023 21 12/07/2020 35 Estimated Creatinine Clearance: 128.8 mL/min (based on SCr of 0.73 mg/dL). 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 [facility] 08-28-2023 Miscellaneous Notes [facility] Anticoagulation Clinic Anticoagulation Episode Summary Anticoagulation Care Providers Provider Role Specialty Phone number Milka Mas MD Family Medicine [phone] Morena Martinez is a 58 year old year old female patient being evaluated today for a Telemanagement visit. Patient is currently on the following anticoagulant(s) Warfarin. Labs PT INR (no units) Date Value 07/28/2022 2.7 (pt reported) 03/20/2022 2.7 01/23/2022 2.9 INR Home CoaguChek (no units) Date Value 08/28/2023 2.6 08/14/2023 3.1 07/31/2023 2.6 Hemoglobin (g/dL) Date Value 04/09/2021 15.2 Hematocrit (%) Date Value 04/09/2021 46.7 Platelet Count (k/uL) Date Value 04/09/2021 299 Creatinine (mg/dL) Date Value 08/09/2023 0.73 04/14/2023 0.77 01/13/2023 0.77 03/23/2021 0.60 12/07/2020 0.62 04/01/2020 0.70 Bilirubin, Total (mg/dL) Date Value 08/09/2023 0.5 12/07/2020 0.6 ALT (U/L) Date Value 08/09/2023 22 12/07/2020 33 AST (U/L) Date Value 08/09/2023 21 12/07/2020 35 Estimated Creatinine Clearance: 128.8 mL/min (based on SCr of 0.73 mg/dL). 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 documented in this encounter [facility] 08-15-2023 History of Presen t illness Narrative Chief Complaint Patient presents with: F/U 3 Month HPI Morena Martinez is a 58 year old female who presents here today for a 3 month follow up. Pt here today for her routine follow up. HTN: Denies checking BP at home. At last visit pt c/o of heart racing issues and fluttering. Pt had a Zio monitor ordered and placed as well as an Echo. Zio showed some episodes of SVT. Echo was normal. Pt on current regimen of Atenolol 50 mg 1 tab in the am 0.5 tab in the pm and Lisinopril 10 mg once daily. Doing well. Edema: Stable with use of Lasix 40 mg once daily. Pain: Chronic pain. Follows with Ortho, but manage through this office. Currently taking Tylenol #3 1 tab po bid, Zanaflex 4 mg prn and Gabapentin 300 mg at bedtime. DM/Obesity: Receives medication through Patient Assistance. Denies checking sugars at home. Denies any lows or neuropathy symptoms. Weight last visit was 340 lbs. She is down a few pounds since last visit, 338 lbs today. Pt currently taking Ozempic 1 mg once weekly. She is trying to make sure she is not eating a lot of sweets. She states she has cut out pop, might have one can a day, is not eating much at all through the day. She isn't walking as much due to her hip pain. Her A1c is down from last visit. DVT: Managed by Pharmacy, takes Coumadin daily. Past medical history, appointments, medications, allergies reviewed. 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 Diffuse cystic mastopathy Diverticulosis of colon (without mention of hemorrhage) Diverticulosis DVT of leg (deep venous thrombosis) (HCC) Right leg Hypertension Irritable bowel syndrome Localized osteoarthrosis not specified whether primary or secondary, other specified sites RT KNEE Migraine, unspecified, with intractable migraine, so stated, without mention of status migrainosus Migraine Obesity, unspecified Osteoarthritis of right knee Other and unspecified disc disorder of unspecified region Intervertebral disc disorders Other disorders of bladder Personal history of colonic polyps 01/21/2015 PMH - PAST MEDICAL HISTORY OF 1989 Pulmonary Embolism Previous Surgical History PAST SURGICAL HISTORY Procedure Laterality Date ANESTH DIAGNOSTIC ARTHROSCOPIC PROC KNEE JOINT 1994 LT KNEE ANESTH DIAGNOSTIC ARTHROSCOPIC PROC KNEE JOINT 1994 RT KNEE APPENDECTOMY ARTHRODESIS CMC JNT THUMB W/WO FIX Right 02/21/2018 ARTHROSCOPY KNEE DIAGNOSTIC W/WO SYNOVIAL BX SPX 2007 Right knee ARTHRP KNE CONDYLE&PLATU MEDIAL&LAT COMPARTMENTS Right 06/27/2011 CHOLECYSTECTOMY 1979' Cholecystectomy COLONOSCOPY FLX DX W/COLLJ SPEC WHEN PFRMD 01/21/2015 Repeat 2024 I/D PERIANAL ABSCESS, SUPERFICIAL 08/31/2011 LIG/TRNSXJ FLP TUBE ABDL/VAG APPR UNI/BI REDUCTION OF LARGE BREAST Breast reduction REPAIR ANAL FISTULA W/NICHELLE 12/09/2011 REPAIR OF SHOULDER Left 08/2021 Dr Banks R[facility] UMBILICAL HRNA 5 YRS/> REDUCIBLE Hernia repair, umbilical >5yr, x2 with mesh TOTAL ABDOMINAL HYSTERECT W/WO RMVL TUBE OVARY Hysterectomy, ARIELLE [place] ECTOPIC W/O SALPING&/OOPHORECTOMY Ectopic Family History FAMILY HISTORY Problem Relation Age of Onset Heart Father [place] age 50, sudden Breast Cancer Mother Coronary Artery Disease Brother Quadruple by-pass age 50 Coronary Artery Disease Sister IA late 30's Stroke Sister other (Other) Brother pulmonary embolism other (Other) Sister pulmonary embolism Heart Sister heart attack age 50, stent Diabetes Sister older sister; obese Patient Allergies ALLERGIES Allergen Reactions Levaquin [Levofloxa* Other: See Comments Notes body aches and joint pain when on medication Augmentin [Amoxicil* Other: See Comments Adverse effect, developed yeast infection Bextra [Valdecoxib] Swelling Ankle swelling Celebrex [Celecoxib] Swelling ankle swelling Erythromycin Rash Latex Lovenox [Enoxaparin* Rash Vioxx [Rofecoxib] Swelling ankle swelling Voltaren [Diclofena* Swelling ankle swelling Current Medications Current Outpatient Medications on File Prior to Visit Medication Sig acetaminophen-codeine (TYLENOL-CODEINE #3) 300-30 mg per tablet Take 1 tablet by mouth two times a day as needed for pain for up to 90 days. tiZANidine (ZANAFLEX) 4 mg tablet Take 1 tablet by mouth every 6 hours as needed. semaglutide (OZEMPIC) 1 mg/dose (4 mg/3 mL) pen Inject 1 mg subcutaneously one time a week. gabapentin (NEURONTIN) 300 mg capsule Take 1 capsule by mouth daily at bedtime for 180 days. atenolol (TENORMIN) 50 mg tablet Taking 50 mg once daily warfarin (COUMADIN) 5 mg tablet 7.5 mg daily lisinopril (ZESTRIL) 10 mg tablet Take 1 tablet by mouth once daily. nystatin (MYCOSTATIN) cream Apply to affected area twice daily. furosemide (LASIX) 40 mg tablet Take 1 tablet by mouth once daily. (Patient taking differently: Take 40 mg by mouth every other day.) furosemide (LASIX) 20 mg tablet Take 1 tablet by mouth once daily. NEEDED No current facility-administered medications on file prior to visit. Social History Social History Tobacco Use Smoking status: Former Packs/day: 0.50 Years: 2.00 Additional pack years: 0.00 Total pack years: 1.00 Types: Cigarettes Quit date: 05/01/1979 Years since quittin.3 Smokeless tobacco: Never Vaping Use Vaping Use: Never used Substance Use Topics Alcohol use: Not Currently Drug use: No EXAM: BP 128/74 Pulse 78 Resp 16 Wt (!) 153.3 kg (338 lb) BMI 52.94 kg/m General Appearance: Well appearing, alert, in no acute distress, well-hydrated, well nourished. and Morbidly obese. Lungs: Lungs clear to auscultation. No wheezing, rhonchi, rales.. Heart: RRR without murmur, gallop, or rubs. No ectopy. Health Maintenance List DTaP,Tdap,Td Vaccine(1 - Tdap) Never done Shingrix Vaccine(1 of 2) Never done BP Controlled (<130/80) due on 09/29/2021 Mammogram Screening due on 11/30/2021 Diabetic Foot Exam due on 04/09/2022 Dilated Retinal Exam due on 04/15/2023 Behavioral Health Screening Never done Urine Albumin:Creatinine Ratio due on 06/27/2023 Covid-19 Vaccine( season) due on 08/14/2024 HbA1C due on 02/08/2024 Annual PCP Team Chronic Disease Visit due on 05/16/2024 LDL Cholesterol due on 08/08/2024 Colorectal Cancer Screening due on 01/21/2025 Influenza Vaccine Completed Hepatitis C Screening Completed Pneumococcal Vaccine Completed Pap Testing Discontinued HPV Testing Discontinued HIV Screening Discontinued Data reviewed Results Only on 08/14/2023 Component Date Value INR Home CoaguChek 08/14/2023 3.1 (A) Appointment on 08/09/2023 Component Date Value Cholesterol, Total 08/09/2023 176 Triglyceride 08/09/2023 74 HDL Cholesterol 08/09/2023 55 Non HDL Cholesterol 08/09/2023 121 Fasting Time 08/09/2023 13 VLDL Cholesterol 08/09/2023 15 TC:HDL Ratio 08/09/2023 3.20 LDL Cholesterol 08/09/2023 106 (H) LDL:HDL Ratio 08/09/2023 1.93 Protein, Total 08/09/2023 7.4 Albumin 08/09/2023 4.3 Calcium, Total 08/09/2023 9.6 Bilirubin, Total 08/09/2023 0.5 Alkaline Phosphatase 08/09/2023 68 AST 08/09/2023 21 ALT 08/09/2023 22 Glucose 08/09/2023 117 (H) BUN 08/09/2023 17 Creatinine 08/09/2023 0.73 Sodium 08/09/2023 142 Potassium 08/09/2023 4.5 Chloride 08/09/2023 104 CO2 08/09/2023 28 Anion Gap 08/09/2023 10 Estimated Glomerular Jeffry* 08/09/2023 95 Hemoglobin A1C 08/09/2023 5.7 (H) Estimated Average Glucose 08/09/2023 117 ASSESSMENT/PLAN: 1. Type 2 diabetes mellitus without complication, without long-term current use of insulin (HCC) - ICD9: 250.00, ICD10: E11.9 (primary diagnosis) - Controlled - Continue current medications - Counseled on healthy diet and regular exercise - Discussed need for and benefit of weight loss. BMI 52.94 kg/(m^2) 2. Encounter for screening mammogram for malignant neoplasm of breast - ICD9: V76.12, ICD10: Z12.31 - Encouraged monthly BSE - Follow up for annual exam in one year. 3. Essential hypertension, benign - ICD9: 401.1, ICD10: I10 - Controlled - Continue current medications - Recommend home blood pressure monitoring, to bring results to next visit - Encouraged sodium restriction, DASH or Mediterranean diet - Recommend regular aerobic exercise - Discussed need for and benefit of weight loss. BMI 52.94 kg/(m^2) 4. Chronic midline low back pain without sciatica - ICD9: 724.2, 338.29, ICD10: M54.50, G89.29 Continue current medications. 5. Class 3 severe obesity due to excess calories with serious comorbidity and body mass index (BMI) of 50.0 to 59.9 in adult (HCC) - ICD9: 278.01, V85.43, ICD10: E66.01, Z68.43 Weight decreasing Continue current medications. Continue regular exercise or diet 6. 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 Continue to monitor IRN Follow up in 3 months with fasting labs prior. I agree with the Chief Complaint, ROS, and Past Histories independently gathered by the clinical ground support equipment mechanic and the remaining scribed note accurately describes my personal service to the patient. Medical Decision Making: Problems: Moderate: 2+ stable chronic illnesses Data: Unique test result(s) reviewed: 3+ Unique test(s) ordered: 3+ Risk: Moderate: Drug management Medical Decision Making Level: 4 - Moderate Milka Mas MD The documentation for this note was completed by Pinky Dawkins MA acting as scribe for Milka Mas MD. August 15, 2023 2:56 PM. Pinky Dawkins MA documented in this encounter [facility] 08-14-2023 Miscellaneous Notes [facility] Ambulatory Pharmacy Anticoagulation Clinic Anticoagulation Episode Summary Anticoagulation Care Providers Provider Role Specialty Phone number Milka Mas MD Family Medicine [phone] Morena Martinez is a 58 year old year old female patient being evaluated today for a Telemanagement visit. Patient is currently on the following anticoagulant(s) Warfarin. Labs PT INR (no units) Date Value 07/28/2022 2.7 (pt reported) 03/20/2022 2.7 01/23/2022 2.9 INR Home CoaguChek (no units) Date Value 08/14/2023 3.1 07/31/2023 2.6 07/17/2023 2.2 Estimated Creatinine Clearance: 129.4 mL/min (based on SCr of 0.73 mg/dL). 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: Anticoagulation Episode Summary Current INR goal: 2.0-3.0 Assessment: INR result of 3.1 is SUPRAtherapeutic due to: No obvious cause Plan: Current Warfarin Dosing As of 08/14/2023 Full warfarin instructions: 08/13: 7.5 mg; Otherwise 10 mg every Mon, Wed, Fri; 7.5 mg all other days Called and spoke to patient/caregiver Advised patient to decrease dose for 1 day only then resume weekly regimen Next INR check due on 08/28/2023 Patient verbalizes understanding of the plan. Manas Richter RPh Clinical Pharmacist, Pharmacy Anticoagulation Clinic Pharmacy Anticoagulation Clinic Pager: [phone]. documented in this encounter [facility] 08-11-2023 Miscellaneous Notes The following approved medication requests have been transmitted electronically. Requested Prescriptions Signed Prescriptions Disp Refills fluconazole (DIFLUCAN) 150 mg tablet 2 tablet 0 Sig: Take 1 tablet by mouth one time only for 1 dose. Repeat in 3 days if needed. Authorizing Provider: MILAK MAS MA New Rx done Milka Mas MD [facility] is calling Milka Mas MD today with a question on E-prescription they received for Fluconazole 150 mg - 1 tablet Directions are to take 1 tablet by mouth once a day for 2 days - and then repeat in 3 days Do not see this medication on current list -last prescribed in 11/2022 documented in this encounter [facility] 07-17-2023 Miscellaneous Notes [facility] Ambulatory Pharm[facility] Anticoagulation Clinic Anticoagulation Episode Summary Anticoagulation Care Providers Provider Role Specialty Phone number Milka Mas MD Family Medicine [phone] Morena Martinez is a 58 year old year old female patient being evaluated today for a Telemanagement visit. Patient is currently on the following anticoagulant(s) Warfarin. Labs PT INR (no units) Date Value 07/28/2022 2.7 (pt reported) 03/20/2022 2.7 01/23/2022 2.9 INR Home CoaguChek (no units) Date Value 07/17/2023 2.2 07/03/2023 2.3 06/26/2023 2.1 Hemoglobin (g/dL) Date Value 04/09/2021 15.2 Hematocrit (%) Date Value 04/09/2021 46.7 Platelet Count (k/uL) Date Value 04/09/2021 299 Creatinine (mg/dL) Date Value 04/14/2023 0.77 01/13/2023 0.77 06/27/2022 0.65 03/23/2021 0.60 12/07/2020 0.62 04/01/2020 0.70 Bilirubin, Total (mg/dL) Date Value 04/14/2023 0.4 12/07/2020 0.6 ALT (U/L) Date Value 04/14/2023 24 12/07/2020 33 AST (U/L) Date Value 04/14/2023 22 12/07/2020 35 Estimated Creatinine Clearance: 122.7 mL/min (based on SCr of 0.77 mg/dL). 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 documented in this encounter [facility] 07-04-2023 Miscellaneous Notes Pt notified. [facility] [address] Chart Copy of medications dispensed to patient for home use July 04, 2023 Physician Initial: ME Morena Martinez Medication: Ozempic 0.25 to 0.5 mg pens Qty: 5 boxes Directions: Inject 1 mg subcutaneously one time a week. Medications administered, dispensed and verified on the date indicated above Patient has been notified to product picker medication in Dr. Mas office. Pinky Dawkins Ma documented in this encounter [facility] 06-19-2023 Miscellaneous Notes [facility] Ambulatory Pharmacy Anticoagulation Clinic Anticoagulation Episode Summary Anticoagulation Care Providers Provider Role Specialty Phone number Milka Mas MD Family Medicine [phone] Morena Martinez is a 58 year old year old female patient being evaluated today for a Telemanagement visit. Patient is currently on the following anticoagulant(s) Warfarin. Labs PT INR (no units) Date Value 07/28/2022 2.7 (pt reported) 03/20/2022 2.7 01/23/2022 2.9 INR Home CoaguChek (no units) Date Value 06/19/2023 1.8 06/12/2023 1.4 05/29/2023 1.7 Estimated Creatinine Clearance: 122.7 mL/min (based on SCr of 0.77 mg/dL). 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: Anticoagulation Episode Summary Current INR goal: 2.0-3.0 Assessment: INR result of 1.8 is SUBtherapeutic due to: No obvious cause Plan: Current Warfarin Dosing As of 06/19/2023 Full warfarin instructions: 10 mg every Mon, Wed, Fri; 7.5 mg all other days Called and spoke to patient/caregiver Advised patient to increase total weekly regimen Next INR check due on 06/26/2023 Patient verbalizes understanding of the plan. Manas Richter RPh Clinical Pharmacist, Pharmacy Anticoagulation Clinic Pharmacy Anticoagulation Clinic Pager: [phone]. documented in this encounter [facility] 06-12-2023 Miscellaneous Notes PATIENT CALL Received call from [employer] [facility] to report home meter result for patient. [facility] has already addressed this result (see below); nothing further needed at this time. Carina Trejo CPhT (Supervisor Mail Carriers) Pharmacy Anticoagulation Clinic [facility] Ambulatory Pharmacy Anticoagulation Clinic Anticoagulation Episode Summary Anticoagulation Care Providers Provider Role Specialty Phone number Milka Mas MD Family Medicine [phone] Morena Martinez is a 58 year old year old female patient being evaluated today for a Telemanagement visit. Patient is currently on the following anticoagulant(s) Warfarin. Labs PT INR (no units) Date Value 07/28/2022 2.7 (pt reported) 03/20/2022 2.7 01/23/2022 2.9 INR Home CoaguChek (no units) Date Value 06/12/2023 1.4 05/29/2023 1.7 05/14/2023 2.1 Estimated Creatinine Clearance: 122.7 mL/min (based on SCr of 0.77 mg/dL). 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: Anticoagulation Episode Summary Current INR goal: 2.0-3.0 Assessment: INR result of 1.4 is SUBtherapeutic due to: No obvious cause Patient denies potential causes of subtherapeutic INR such as: missed doses, incorrect doses, significant increase in vitamin K including via liver, green tea, nutritional supplements including V8, recent addition of multivitamin, meal replacement drinks/shakes (Boost, Ensure, Glucerna, Slim-Fast, Atkins, etc.). Plan: Current Warfarin Dosing As of 06/12/2023 Full warfarin instructions: 10 mg every Mon, Blaire; 7.5 mg all other days Called and spoke to patient/caregiver Advised patient to increase total weekly regimen Next INR check due on 06/26/2023 Patient verbalizes understanding of the plan. Manas Richter RPh Clinical Pharmacist, Pharmacy Anticoagulation Clinic Pharmacy Anticoagulation Clinic Pager: [phone]. documented in this encounter [facility] 06-09-2023 Miscellaneous Notes Pt notified of results via NOBOT. Pinky Dawkins Ma Please notify patient that her Zio monitor shows that she did have some episodes of her heart racing, with supraventricular tachycardia. This is a benign finding, and nothing needs to be done about it. Medications can be used if the symptoms are troublesome. Milka Mas MD documented in this encounter [facility] 06-05-2023 Miscellaneous Notes OK to refill as ordered Milka Mas MD Patient has been identified by name and date of : Yes, Provider Milka Mas MD Date June 05, 2023 Time 8:49 AM Patient phones for refill(s): Requested Prescriptions Pending Prescriptions Disp Refills acetaminophen-codeine (TYLENOL-CODEINE #3) 300-30 mg per tablet 60 tablet 2 Sig: Take 1 tablet by mouth two times a day as needed for pain for up to 90 days. Date of last office visit in primary care: 05/16/2023 Date of next office visit in primary care: 06/03/2023 Tylenol -Cod #4 refilled 05/04/23 #30 Please advise. Thank you. Pinky Dawkins Ma. documented in this encounter [facility] 06-05-2023 Miscellaneous Notes The following approved medication requests have been transmitted electronically. Requested Prescriptions Pending Prescriptions Disp Refills tiZANidine (ZANAFLEX) 4 mg tablet 30 tablet 5 Sig: Take 1 tablet by mouth every 6 hours as needed. Byron Jolley APRN.CNP documented in this encounter [facility] 05-17-2023 Note HNO ID: [id number] Author: JESSICA COLLAZO Tech Service: ? Author Type: [employer] Salesperson Type: Progress Notes Filed: 05/17/2023 11:17 Note Text: Radiology Service Progress Note PATIENT NAME: Morena Martinez DATE OF SERVICE: May 17, 2023 TIME: 11:17 AM PATIENT IDENTITY VERIFICATION COMPLETED USING TWO (2) IDENTIFIERS: Name and Date of confirmed by patient verbally. FALL SCREENING: Has the patient had 2 falls in the last year or 1 fall with injury or currently using an Ambulatory Assistive Device (Walker, Cane, Wheelchair, Crutches, etc.)? No PATIENT GENDER DATA: Female. status: : No status: NO. PATIENT RELEVANT IMPLANT DATA REVIEWED: Not Applicable RADIOLOGY DEPARTMENT: General X-ray: Exam(s) Completed: Upper Extremity X-Ray(s): Shoulder, AP / TRUE AP / AXILLARY left PERIPHERAL IV DATA: Not applicable SIGNED BY: Karli Pop May 17, 2023 11:17 AM [facility] [place] 05-17-2023 History of Presen t illness Narrative Radiology Service Progress Note PATIENT NAME: Morena Martinez DATE OF SERVICE: May 17, 2023 TIME: 11:17 AM PATIENT IDENTITY VERIFICATION COMPLETED USING TWO (2) IDENTIFIERS: Name and Date of confirmed by patient verbally. FALL SCREENING: Has the patient had 2 falls in the last year or 1 fall with injury or currently using an Ambulatory Assistive Device (Walker, Cane, Wheelchair, Crutches, etc.)? No PATIENT GENDER DATA: Female. status: : No status: NO. PATIENT RELEVANT IMPLANT DATA REVIEWED: Not Applicable RADIOLOGY DEPARTMENT: General X-ray: Exam(s) Completed: Upper Extremity X-Ray(s): Shoulder, AP / TRUE AP / AXILLARY left PERIPHERAL IV DATA: Not applicable SIGNED BY: Karli Pop May 17, 2023 11:17 AM documented in this encounter [facility] 04-17-2023 History of Presen t illness Narrative Radiology Service Progress Note PATIENT NAME: Morena Martinez DATE OF SERVICE: April 17, 2023 TIME: 1:24 PM PATIENT IDENTITY VERIFICATION COMPLETED USING TWO (2) IDENTIFIERS: Name and Date of confirmed by patient verbally. FALL SCREENING: Has the patient had 2 falls in the last year or 1 fall with injury or currently using an Ambulatory Assistive Device (Walker, Cane, Wheelchair, Crutches, etc.)? No PATIENT GENDER DATA: Female. status: : No status: NO. PATIENT RELEVANT IMPLANT DATA REVIEWED: Yes RADIOLOGY DEPARTMENT: General X-ray: Exam(s) Completed: Chest X-Ray PERIPHERAL IV DATA: Not applicable SIGNED BY: RT Marty(R) April 17, 2023 1:24 PM documented in this encounter [facility] 04-04-2023 Miscellaneous Notes [facility] [address] Chart Copy of medications dispensed to patient for home use April 04, 2023 Physician Initial: Morena Martinez Medication: Ozempic 0.25 mg, 0.5 mg 1 x 3 mL prefilled pens Qty: 5 boxes Directions: Inject 0.25 mg sub-q one time a week for 28 days, then 0.5 mg once time a week. Medications administered, dispensed and verified on the date indicated above Patient has been notified to product picker medication in Dr. Mas's office. Catrachito Serna Ma documented in this encounter [facility] 04-03-2023 Miscellaneous Notes The following approved medication requests have been transmitted electronically. Requested Prescriptions Pending Prescriptions Disp Refills gabapentin (NEURONTIN) 300 mg capsule 90 capsule 1 Sig: Take 1 capsule by mouth daily at bedtime for 180 days. Byron Jolley APRN.CNP Patient last visit with PCP 02/07/23 Follow up appointment scheduled 05/16/23 Mariya Redmond Ma documented in this encounter [facility] 03-30-2023 History of Presen t illness Narrative Episode Visit Count: 19 Therapist That Will Accept/Oversee The Plan Of Care: Blaise Mcginnis PT Start of Care Date: 12/30/22 Onset Date: 12/29/22 Plan of Care Certification Date: 03/20/23 Next Certification Due Date: 05/01/23 Patient Identified by Name and Date of : Yes REHABILITATION AND SPORTS THERAPY PHYSICAL THERAPY TREATMENT NOTE ASSESSMENT: Morena Martinez tolerated the session with fatigue, expected muscle soreness, and no issues. She demonstrated improvements in exercise tolerance and pain overall. The patient will continue to benefit from ongoing skilled physical therapy to progress toward set goals and to continue with post-operative protocol. PLAN FOR NEXT VISIT: Continue with stretching and strengthening of L shoulder. Progress to tolerance to facilitate a return to prior functional level. Continue manual therapy based on the early success of this. SUBJECTIVE: Pt reports that she is having less pain overall but not significantly different from last session 03/28/23. She also denies any pain or problems with therex done last session. Pain: Pain Pain Level: (not rated) Pain Location: Shoulder - Left Frequency: Intermittent Post Treatment Pain Post Treatment Pain Level: No Change Post Treatment Pain Location: Shoulder - Left Post Treatment Symptoms: She reported fatigue from a good workout but she denied any increase in pain as she was leaving. OBJECTIVE MEASURES WITH LEVEL OF FUNCTION: TREATMENT: Therapeutic Exercise: 1: UBE UEs only seat #10 resistance level #1 x6 minutes (Pt provided an update on her condition and plan of care reviewed.) 2: seated rope and roel for L shoulder abduction x15 in tolerable range but stretching with 3 second hold at top 3: seated rope and roel for L shoulder flexion x15 in tolerable range but stretching with 3 second hold 4: standing rope and roel L shoulder IR stretch with hand behind back x15 with 3 second hold 5: standing rope and roel L shoulder ER with elbow flexed 90 degrees x15. Gait belt to keep L elbow at side 6: L UE alphabet tracing A-Z x2 with 3# weight 7: L UE 5 on the wall 1-4 with 3# weight 2x30 seconds 8: supine passive PROM of L shoulder by therapist for flexion, abduction, ER(90 degrees of abd), IR(90 degrees of abd) 2x10 each to pt tolerance. 10: L UE holding 2# ball against wall at shoulder height 2x20 CW and 2x20 CCW with 3# wrist weight 11: L UE bodyblade arm at side blade horizontal up and down 3x30 seconds 12: L UE bodyblade elbow flexed 90 degrees blade vertical side to side 3x30 seconds Skilled Intervention: Patient was educated in proper exercise technique and purpose for exercises. Skilled judgment was used in selection of appropriate interventions. Correct performance of therapeutic exercises was facilitated with verbal, visual, and tactile cuing. Manual Therapy: 1: Quadrant to L shoulder grade 2 2: Quadrant to L shoulder Grade 3- 3: Caudal glides to L shoulder grade 3 4: lateral glides to L shoulder grade 3 5: A/P to L shoulder grade 3 6: P/A to L shoulder grade 3 Joint Mobilizations: Body Region Treated, Patient Position Body Region Treated: All mobilizations were done with [place] approach for pain dominant L shoulder Skilled Intervention: Manual skills to improve joint mobility, ROM, and decrease pain. Utilized anatomy knowledge of the therapist, and assessment of patient's response to intervention. Billing Therapeutic Exercise Treatment Minutes: 28 Manual TherapyTreatment Minutes: 15 Skilled Treatment Time Minutes (timed and untimed codes): 43 Total Session Time (minutes): 43 Session Start Time : 1003 Session Stop Time : 1046 Blaise Mcginnis PT documented in this encounter [facility] 03-20-2023 Miscellaneous Notes PATIENT CALL Received call from Leonarda with [facility] to report home meter result for patient. [facility] has already addressed this result (see below); nothing further needed at this time. Carina Trejo CPhT (Supervisor Mail Carriers) Pharmacy Anticoagulation Clinic [facility] Ambulatory Pharmacy Anticoagulation Clinic Anticoagulation Episode Summary Anticoagulation Care Providers Provider Role Specialty Phone number Milka Mas MD Family Medicine [phone] Morena Martinez is a 58 year old year old female patient being evaluated today for a Telemanagement visit. Patient is currently on the following anticoagulant(s) Warfarin. Labs PT INR (no units) Date Value 07/28/2022 2.7 (pt reported) 03/20/2022 2.7 01/23/2022 2.9 INR Home CoaguChek (no units) Date Value 03/20/2023 1.7 03/03/2023 2.1 02/10/2023 1.9 Estimated Creatinine Clearance: 124.1 mL/min (based on SCr of 0.77 mg/dL). 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: Anticoagulation Episode Summary Current INR goal: 2.0-3.0 Assessment: INR result of 1.7 is SUBtherapeutic due to: No obvious cause Plan: Current Warfarin Dosing As of 03/20/2023 Full warfarin instructions: 5 mg every Blaire; 7.5 mg all other days Called and spoke to patient/caregiver Advised patient to increase total weekly regimen Next INR check due on 04/03/2023 Patient verbalizes understanding of the plan. Manas Richter [facility] Clinical Pharmacist, Pharmacy Anticoagulation Clinic Pharmacy Anticoagulation Clinic Pager: [phone]. documented in this encounter [facility] 03-20-2023 History of Presen t illness Narrative Episode Visit Count: 17 Therapist That Will Accept/Oversee The Plan Of Care: Blaise Mcginnis PT Start of Care Date: 12/30/22 Onset Date: 12/29/22 Plan of Care Certification Date: 03/20/23 Next Certification Due Date: 05/01/23 Patient Identified by Name and Date of : Yes REHABILITATION AND SPORTS THERAPY PHYSICAL THERAPY PROGRESS REPORT PLAN OF CARE UPDATE: Assessment: Morena Martinez demonstrates moderate improvement in reaching behind back, reaching overhead, and use hand with arm at shoulder level. She has progressed toward goals. Patient continues to present with impairments in ADL's, independence in exercise, overall function, range of motion, soft tissue healing, strength, symptom management, and tissue tenderness that interfere with lifting, reaching behind back, reaching overhead, grooming, dressing . Current prognosis is Good due to: current objective clinical presentation, positive past response to therapy, good support system/ coping skills. She will benefit from continued skilled therapy services to meet the updated goals for this plan of care as noted below. Updated: 01/26/23 and 02/21/23 and 03/20/23 Goals for Episode of Care: created on 12/30/22 through 03/30/23 [place] in home exercise program. - MET, will continue and progress to tolerance prn Patient will increase active ROM of L shoulder to equal to R shoulder to allow pt to to improve performance of ADLs. - Partially MET, will continue Patient will demonstrate increase in LUE strength to symmetrical dynamometer testing in order to improve function for prior functional tasks. - Partially MET, will continue Improve postural awareness. - Partially MET, will continue Patient Goals: return to PLOF - Partially MET, will continue Patient Goals: return to PLOF Planned Interventions, Frequency, and Duration: 2x/week (will decrease to 1x week starting week of 04/03/2023), 6 weeks Total Number of Visits Planned: 12 Patient to be seen for Therapeutic exercise ([id number]), Manual therapy (11222), Therapeutic activities ([id number]), Self-assisted management ([id number]), Patient/Family/Caregiver Education, Body Mechanics Training PLAN FOR NEXT VISIT: Continue with stretching and strengthening of L shoulder. Progress to tolerance to facilitate a return to prior functional level. Continue manual therapy based on the early success of this. SUBJECTIVE: Pt reports that overall her L shoulder is getting better, especially since the initiation of joint mobilizations 2 weeks ago. She does report increased pain in L shoulder since last session without explanation. She wonders if cold weather is to blame. She also reports being much less active when she was ill last week and also was not completing HEP consistently. She has since resumed HEP 2x day. She reports that she is now able to reach the top shelf in medicine cabinent but was not able previously. She also reports being better able to reach her shower curtain rosemarie. Patient Goals: return to PLOF Functional Limitations: lifting, reaching behind back, reaching overhead, grooming, dressing Prior Level of Function: Independent without limitations Intake Information: Prescription present Pain: Pain Pain Level: 2 Pain Location: Shoulder - Left Description: Dull, Aching Frequency: Intermittent Post Treatment Pain Post Treatment Pain Level: No Change Post Treatment Pain Location: Shoulder - Left Post Treatment Symptoms: Pt denied any increase in pain PROMIS Scales Higher is Better 03/14/2023 02/14/2023 01/13/2023 Phys Func - Score 41 (mild dysfunction) 40 (mild dysfunction) 37 (moderate dysfunction) Phys Func - Percentile 18 % 16 % 10 % Self-Eff Symptom - Score 45 (Average) 46 (Average) 41 (Average) Self-Eff Symptom - Percentile 31 % 34 % 18 % T-scores: mean of general population = 50. 5 points is clinically meaningfully difference Percentiles provide an indication of how the patient's score ranks in relation to the general population. Higher percentile rankings indicate better function/quality of life. 50th percentile is the average of the general population and indicates half of respondents had a worse score. OBJECTIVE MEASURES WITH LEVEL OF FUNCTION: UE AROM L UE AROM: seated L Shoulder Extension: 66 Degrees L Shoulder Flex: 113 Degrees L Shoulder ABduction: 101 Degrees L Shoulder Internal Rotation (Functional): 34cm less than R reaching behind back L Shoulder External Rotation (Functional): 39cm less than R reaching behind head UE PROM L Shoulder Flex: 136 Degrees L Shoulder ABduction: 118 Degrees L Shoulder Internal Rotation: 93 Degrees (at 90 degrees of abduction) L Shoulder External Rotation: -20 Degrees (at 90 degrees of abduction) Dynamometer Strength L Shoulder Standing Scaption (lbs): 20.6 ft/lbs L Shoulder Standing Abduction (lbs): 20.2 ft/lbs L Shoulder Standing External Rotation (lbs): 19.8 ft/lbs L Shoulder Standing Internal Rotation (lbs): 26.6 ft/lbs L IR:ER Ratio (%): 134.34 TREATMENT: Therapeutic Exercise: 1: UBE UEs only seat #10 no resistance x6 minutes (Pt provided an update on her condition and plan of care reviewed.) 2: seated rope and roel for L shoulder abduction x15 in tolerable range but stretching with 3 second hold at top 3: seated rope and roel for L shoulder flexion x15 in tolerable range but stretching with 3 second hold 4: standing rope and roel L shoulder IR stretch with hand behind back x15 with 3 second hold 7: L shoulder IR stretch behind back grasping bars, stepping to L and squatting 3x30 seconds 8: supine passive PROM of L shoulder by therapist for flexion, abduction, ER(90 degrees of abd), IR(90 degrees of abd) 2x10 each to pt tolerance. 11: L UE bodyblade arm at side blade horizontal up and down 3x30 seconds 12: L UE bodyblade elbow flexed 90 degrees blade vertical side to side 3x30 seconds Skilled Intervention: Patient was educated in proper exercise technique and purpose for exercises. Skilled judgment was used in selection of appropriate interventions. Correct performance of therapeutic exercises was facilitated with verbal, visual, and tactile cuing. Manual Therapy: 1: Quadrant to L shoulder grade 2 2: Quadrant to L shoulder Grade 3- 3: Caudal glides to L shoulder grade 3 4: lateral glides to L shoulder grade 3 5: A/P to L shoulder grade 3 6: P/A to L shoulder grade 3 Joint Mobilizations: Body Region Treated, Patient Position Body Region Treated: All mobilizations were done with Stephanie approach for pain dominant L shoulder Patient Position: supine Skilled Intervention: Manual skills to improve joint mobility, ROM, and decrease pain. Utilized anatomy knowledge of the therapist, and assessment of patient's response to intervention. Billing Therapeutic Exercise Treatment Minutes: 35 Manual TherapyTreatment Minutes: 15 Skilled Treatment Time Minutes (timed and untimed codes): 50 Total Session Time (minutes): 50 Session Start Time : 929 Session Stop Time : 1019 Blaise Mcginnis PT documented in this encounter [facility] 03-16-2023 History of Presen t illness Narrative Episode Visit Count: 16 Therapist That Will Accept/Oversee The Plan Of Care: Blaise Mcginnis PT Start of Care Date: 12/30/22 Onset Date: 12/29/22 Plan of Care Certification Date: 02/21/23 Next Certification Due Date: 03/21/23 Patient Identified by Name and Date of : Yes [facility] PHYSICAL THERAPY TREATMENT NOTE ASSESSMENT: Morena Martinez tolerated the session with decreased endurance, fatigue, and no issues. She demonstrated improvements in pain and ROM after mobilizations. The patient will continue to benefit from ongoing skilled physical therapy to progress toward set goals. PLAN FOR NEXT VISIT: Continue with stretching and strengthening of L shoulder. Progress to tolerance to facilitate a return to prior functional level. Continue manual therapy based on the early success of this. SUBJECTIVE: Pt reports that she is still trying to recover from a UTI and is not feeling well. She reports canceling her last PT session because of this illness. Because of the illness she has not been doing HEP and therefore she reports that her shoulder is stiff today with less motion. She reports that mobilizations started on 03/06/23 have been very effective. Pain: Pain Pain Level: 0 Pain Location: Shoulder - Left Description: (no pain to start today) Frequency: Intermittent Post Treatment Pain Post Treatment Pain Level: No Change Post Treatment Pain Location: Shoulder - Left Post Treatment Symptoms: After session, pt reported excessive fatigue but she denied any increase in pain OBJECTIVE MEASURES WITH LEVEL OF FUNCTION: TREATMENT: Therapeutic Exercise: 1: UBE UEs only seat #10 no resistance x6 minutes (Pt provided an update on her condition and plan of care reviewed.) 2: seated rope and roel for L shoulder abduction x15 in tolerable range but stretching with 3 second hold at top 3: seated rope and roel for L shoulder flexion x15 in tolerable range but stretching with 3 second hold 4: standing rope and roel L shoulder IR stretch with hand behind back x15 with 3 second hold 5: L UE 5 on the wall 1-4 with 2# weight 3x30 seconds 6: L UE alphabet tracing A-Z x2 with 2# weight 7: L shoulder IR stretch behind back grasping bars, stepping to L and squatting 3x30 seconds 8: supine passive PROM of L shoulder by therapist for flexion, abduction, ER(90 degrees of abd), IR(90 degrees of abd) 2x10 each to pt tolerance. 10: L UE holding 2# ball against wall at shoulder height 2x20 CW and 2x20 CCW with 2# wrist weight 11: L UE bodyblade arm at side blade horizontal up and down 3x30 seconds 12: L UE bodyblade elbow flexed 90 degrees blade vertical side to side 3x30 seconds Skilled Intervention: Patient was educated in proper exercise technique and purpose for exercises. Skilled judgment was used in selection of appropriate interventions. Correct performance of therapeutic exercises was facilitated with verbal, visual, and tactile cuing. Patient education as noted. Manual Therapy: 1: Quadrant to L shoulder grade 2 2: Quadrant to L shoulder Grade 3- 3: Caudal glides to L shoulder grade 3 4: lateral glides to L shoulder grade 3 5: A/P to L shoulder grade 3 6: P/A to L shoulder grade 3 Joint Mobilizations: Body Region Treated, Patient Position Body Region Treated: All mobilizations were done with Stephanie approach for pain dominant L shoulder Patient Position: supine Skilled Intervention: Manual skills to improve joint mobility, ROM, and decrease pain. Utilized anatomy knowledge of the therapist, and assessment of patient's response to intervention. Billing Therapeutic Exercise Treatment Minutes: 30 Manual TherapyTreatment Minutes: 15 Skilled Treatment Time Minutes (timed and untimed codes): 45 Total Session Time (minutes): 45 Session Start Time : 1045 Session Stop Time : 1130 Blaise Mcginnis PT documented in this encounter [facility] 03-16-2023 Miscellaneous Notes Alana with [facility] called and is notified of providers message, let her know appointment would be 05/16/23. She voices understanding, and will enter this message in Pts chart. Carina Ch RN Will discuss with her at he next appt Milka Mas MD Ruby with [facility] called in and reports that the pharmacist recommend Pt be on a Statin therapy for her cardiovascular health. They are asking that the provider consider putting her on a Statin to bridge the therapy gap or call them back and let them know reason not to. documented in this encounter [facility] 03-13-2023 History of Presen t illness Narrative Subjective HPI Morena Martinez is a 58 year old female who presents with one day of pelvic pressure and hematuria. Both seem to be improving today. She has had some left flank pain. She has not had a fever, chills, nausea or vomiting. She has not taken any medication today for her symptoms. Review of Systems Constitutional: Negative for chills and fever. Respiratory: Negative. Cardiovascular: Negative. Gastrointestinal: Positive for abdominal pain (pelvic pressure). Genitourinary: Positive for flank pain and hematuria. Negative for dysuria, frequency and urgency. BP 138/84 Pulse 74 Temp 36.6 C (97.8 F) Resp 21 Wt (!) 157.4 kg (347 lb) SpO2 98% BMI 54.35 kg/m PAST MEDICAL HISTORY Diagnosis Date Blood dyscrasia 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 Diffuse cystic mastopathy Diverticulosis of colon (without mention of hemorrhage) Diverticulosis DVT of leg (deep venous thrombosis) (HCC) Right leg Hypertension Irritable bowel syndrome Localized osteoarthrosis not specified whether primary or secondary, other specified sites RT KNEE Migraine, unspecified, with intractable migraine, so stated, without mention of status migrainosus Migraine Obesity, unspecified Osteoarthritis of right knee Other and unspecified disc disorder of unspecified region Intervertebral disc disorders Other disorders of bladder Personal history of colonic polyps 01/21/2015 PMH - PAST MEDICAL HISTORY OF 1989 Pulmonary Embolism PAST SURGICAL HISTORY Procedure Laterality Date ANESTH DIAGNOSTIC ARTHROSCOPIC PROC KNEE JOINT 1994 LT KNEE ANESTH DIAGNOSTIC ARTHROSCOPIC PROC KNEE JOINT 1994 RT KNEE APPENDECTOMY ARTHRODESIS [facility] JNT THUMB W/WO FIX Right 02/21/2018 ARTHROSCOPY KNEE DIAGNOSTIC W/WO SYNOVIAL BX SPX 2007 Right knee ARTHRP KNE CONDYLE&PLATU MEDIAL&LAT COMPARTMENTS Right 06/27/2011 CHOLECYSTECTOMY 1979' Cholecystectomy COLONOSCOPY FLX DX W/COLLJ SPEC WHEN PFRMD 01/21/2015 Repeat 2024 I/D PERIANAL ABSCESS, SUPERFICIAL 08/31/2011 LIG/TRNSXJ FLP TUBE ABDL/VAG APPR UNI/BI REDUCTION OF LARGE BREAST Breast reduction REPAIR ANAL FISTULA W/NICHELLE 12/09/2011 REPAIR OF SHOULDER Left 08/2021 Dr Banks RPR UMBILICAL HRNA 5 YRS/> REDUCIBLE Hernia repair, umbilical >5yr, x2 with mesh TOTAL ABDOMINAL HYSTERECT W/WO RMVL TUBE OVARY Hysterectomy, ARIELLE TX ECTOPIC W/O SALPING&/OOPHORECTOMY Ectopic ALLERGIES Levaquin [Levofloxacin], Augmentin [Amoxicillin-Pot Clavulanate], Bextra [Valdecoxib], Celebrex [Celecoxib], Erythromycin, Latex, Lovenox [Enoxaparin Sodium], Vioxx [Rofecoxib], and Voltaren [Diclofenac Sodium] MEDICATIONS acetaminophen-codeine (TYLENOL-CODEINE #3) 300-30 mg per tablet Take 1 tablet by mouth two times a day as needed for pain for up to 90 days. atenolol (TENORMIN) 50 mg tablet Taking 50 mg once daily warfarin (COUMADIN) 5 mg tablet 7.5 mg daily lisinopril (ZESTRIL) 10 mg tablet Take 1 tablet by mouth once daily. semaglutide (OZEMPIC) 0.25 mg or 0.5 mg (2 mg/3 mL) pen Inject 0.25 mg subcutaneously one time a week for 28 days, THEN 0.5 mg one time a week. tiZANidine (ZANAFLEX) 4 mg tablet Take 1 tablet by mouth every 6 hours as needed. gabapentin (NEURONTIN) 300 mg capsule Take 1 capsule by mouth daily at bedtime for 180 days. nystatin (MYCOSTATIN) cream Apply to affected area twice daily. furosemide (LASIX) 40 mg tablet Take 1 tablet by mouth once daily. (Patient taking differently: Take 40 mg by mouth every other day.) furosemide (LASIX) 20 mg tablet Take 1 tablet by mouth once daily. NEEDED cephALEXin (KEFLEX) 500 mg capsule Take 1 capsule by mouth three times a day for 7 days. methylPREDNISolone (MEDROL, LEÓN,) 4 mg Dose-Pack Take 1 tablet by mouth as directed. As directed on package (Patient not taking: Reported on 03/13/2023) FAMILY HISTORY Problem Relation Age of Onset Heart Father [place] age 50, sudden Breast Cancer Mother Coronary Artery Disease Brother Quadruple by-pass age 50 Coronary Artery Disease Sister IA late 30's Stroke Sister other (Other) Brother pulmonary embolism other (Other) Sister pulmonary embolism Heart Sister heart attack age 50, stent Diabetes Sister older sister; obese Social History Tobacco Use Smoking status: Former Packs/day: 0.50 Years: 2.00 Additional pack years: 0.00 Total pack years: 1.00 Types: Cigarettes Quit date: 05/01/1979 Years since quittin.8 Smokeless tobacco: Never Vaping Use Vaping Use: Never used Substance Use Topics Alcohol use: Not Currently Drug use: No Objective Physical Exam Vitals and nursing note reviewed. Constitutional: General: She is not in acute distress. Appearance: Normal appearance. She is not ill-appearing. Cardiovascular: Rate and Rhythm: Regular rhythm. Pulmonary: Effort: Pulmonary effort is normal. Breath sounds: Normal breath sounds. Abdominal: Palpations: Abdomen is soft. Tenderness: There is no right CVA tenderness or left CVA tenderness. Comments: Abdominal exam limited due to body habitus Skin: General: Skin is warm and dry. Neurological: Mental Status: She is alert. Last labs for kidney function: Component Latest Ref Rng & Units 01/13/2023 Protein, Total 6.3 - 8.0 g/dL 7.7 Albumin 3.9 - 4.9 g/dL 4.2 Calcium 8.5 - 10.2 mg/dL 9.3 Bilirubin, Total 0.2 - 1.3 mg/dL 0.4 Alkaline Phosphatase 34 - 123 U/L 75 AST 13 - 35 U/L 13 ALT 7 - 38 U/L 15 Glucose 74 - 99 mg/dL 140 (H) BUN 7 - 21 mg/dL 17 Creatinine 0.58 - 0.96 mg/dL 0.77 Sodium 136 - 144 mmol/L 139 Potassium 3.7 - 5.1 mmol/L 4.2 Chloride 97 - 105 mmol/L 102 CO2 22 - 30 mmol/L 24 Anion Gap 9 - 18 mmol/L 13 eGFR >=60 mL/min/1.73m 90 Office Visit on 03/13/2023 Component Date Value Ref Range Status GLUCOSE UA (POCT) 03/13/2023 Negative Negative mg/dL Final BILIRUBIN UA (POCT) 03/13/2023 Negative Negative Final KETONE UA (POCT) 03/13/2023 Negative Negative mg/dL Final SPECIFIC GRAVITY UA (POCT) 03/13/2023 <=1.005 (A) 1.005 - 1.030 Final HEMOGLOBIN/BLOOD UA (POCT) 03/13/2023 Small (A) Negative Final PH UA (POCT) 03/13/2023 6.0 4.5 - 8.0 Final PROTEIN UA (POCT) 03/13/2023 Negative Negative mg/dL Final UROBILINOGEN UA (POCT) 03/13/2023 0.2 Normal E.U./dL Final NITRITE UA (POCT) 03/13/2023 Negative Negative Final LEUKOCYTES UA (POCT) 03/13/2023 Trace (A) Negative Final COLOR UA (POCT) 03/13/2023 Yellow Final CLARITY UA (POCT) 03/13/2023 Clear Final ASSESSMENT/PLAN: 1. Hematuria, unspecified type - ICD9: 599.70, ICD10: R31.9 - UA DIP, URINE (POC) - URINE CULTURE - CEPHALEXIN 500 MG CAPSULE - Follow-up with your PCP in 3-5 days if symptoms have not improved or sooner if symptoms worsen - Discussed red flags and need for immediate medical evaluation if any occur. - Discussed supportive care treatment with fluids, rest and analgesia. - Discussed expected course of illness Lizette Akbar APRN.JOHN documented in this encounter [facility] 03-13-2023 Instructions Lizette Akbar APRN.CNP - 03/13/2023 10:05 AM EST ASSESSMENT/PLAN: 1. Hematuria, unspecified type - ICD9: 599.70, ICD10: R31.9 - UA DIP, URINE (POC) - URINE CULTURE - CEPHALEXIN 500 MG CAPSULE - Follow-up with your PCP in 3-5 days if symptoms have not improved or sooner if symptoms worsen - Discussed red flags and need for immediate medical evaluation if any occur. - Discussed supportive care treatment with fluids, rest and analgesia. - Discussed expected course of illness Lizette Akbar APRN.[facility] PATIENT INFO BLADDER INFECTION OVERVIEW Bladder infections are one of the most common infections, causing symptoms of burning with urination and needing to urinate frequently. A bladder infection is a type of urinary tract infection (UTI). Bladder infections are more common is women than men. Most women have an uncomplicated bladder infection that is easily treated with a short course of antibiotics. In men, bladder infections may also affect the prostate gland, and a longer course of treatment may be needed. BLADDER INFECTION CAUSES The urinary tract includes the kidneys (which filter urine), ureters (the tube that carries urine from the kidneys to the bladder), the bladder (which stores urine), and urethra (the tube that carries urine out of the bladder). Bacteria do not normally live in these areas. However, bacteria normally live close to the urethra in women and men who are not circumcised. Bladder infections occur when bacteria travel up the urethra into the bladder. Factors that increase the risk of developing a bladder infection include: Vaginal sex Use of spermicides History of past bladder infections Diabetes In men, not being circumcised or having anal sex increase the risk of bladder infections. BLADDER INFECTION SYMPTOMS The typical symptoms of a bladder infection include: Pain or burning when urinating Frequent need to urinate Urgent need to urinate Blood in the urine Fever, back pain, nausea, or vomiting are not common symptoms of a bladder infection, but can occur in people with a kidney infection (pyelonephritis). If you have these symptoms, you should call your doctor or nurse immediately. Is it a bladder infection or something else? -- Burning with urination can also occur in people with vaginitis (eg, yeast infection) or urethritis (inflammation of the urethra). For this reason, it is important to call your healthcare provider before assuming you have a bladder infection. BLADDER INFECTION DIAGNOSIS Simple bladder infections are usually diagnosed based upon your symptoms alone. However, most patients, especially those who have bladder infection symptoms for the first time, should see a healthcare provider for urine testing. Urine culture -- A urine culture is a test that uses a sample of urine to try and grow bacteria in a laboratory. It usually requires about 48 hours to get results. However, a urine culture is not always required to diagnose a bladder infection. Urine culture is often recommended if: You have never had a bladder infection before You have symptoms that are not typical for bladder infection You have had resistant bladder infections before You have frequent bladder infections You do not begin to feel better within 24 to 48 hours after starting antibiotics You are BLADDER INFECTION TREATMENT Bladder infection -- In young, healthy adolescents and adults with a bladder infection, the usual treatment includes a three to seven day course of antibiotics. The typical drugs chosen are: trimethoprim-sulfamethoxazole (Bactrim ), nitrofurantoin (Macrobid ), ciprofloxacin (Cipro ) or levofloxacin (Levaquin ). In men, the infection may involve your prostate gland and treatment is usually given for at least 7 days. Your symptoms should begin to resolve within one day after starting treatment. It is important to take the full course of antibiotics to completely eliminate the infection. If your symptoms persist for more than two or three days after starting treatment, call your healthcare provider. If needed, you can take a prescription medication that numbs the bladder and urethra (phenazopyridine [Pyridium ]) to reduce the burning pain of some UTIs. A similar medication is available without a prescription (eg, Uristat). Both medications change the color of the urine (usually blue or orange) and can interfere with laboratory testing. You should not take these medications for more than 48 hours due to the risk of side effects. These medications do not treat the infection and must be taken along with an antibiotic. Some providers recommend drinking more fluids while treating bladder infections to help flush bacteria from the bladder. Others believe that drinking more fluids may dilute the antibiotic in the bladder and make the medication less effective. No studies have been performed to address this issue. There are also no good studies on the effectiveness of cranberry juice for treating a bladder infection; we do not recommend using cranberry juice to treat bladder infections. Follow-up care -- Follow-up testing is not needed in healthy, young men or women with a bladder infection if symptoms resolve. women are usually asked to have a repeat urine culture one to two weeks after treatment has ended to make sure the bacteria are no longer in the urine. RECURRENT BLADDER INFECTIONS Bladder infections versus other causes -- Some adults, especially women, develop bladder infections frequently. In this case, it is important to confirm that your symptoms (eg, pain or burning, frequency, and urgency) are caused by a bladder infection. Symptoms are usually similar from one infection to another. The best way to confirm an infection is to have a urine culture. If your urine culture is negative for infection, other causes of pain, burning, and frequency should be investigated. There is no reason to take antibiotics if your urine culture is negative. Need for further testing -- If you continue to develop bladder infections, you may require further testing. If you continue to notice blood in your urine after your bladder infection has cleared, you should have further testing. Preventing recurrent UTIs -- Women with recurrent urinary tract infections may be advised to take steps to prevent bladder infections, including one or more of the following: Changes in control -- Women who develop frequent bladder infections and use spermicides, particularly those who also use a diaphragm, may be encouraged to use an alternate method of control. Cranberry products -- Taking cranberry juice or cranberry tablets has been promoted as one way to help prevent frequent bladder infections. However, this has not been proven. Drinking more fluid and urinating after intercourse -- Although studies have not proven that drinking more fluids or urinating soon after intercourse can prevent infection, some healthcare providers recommend these measures since they are not harmful. Drinking more fluid may help to wash out bacteria that enter the bladder. Postmenopausal women -- Postmenopausal women who develop recurrent bladder infections may benefit from using vaginal estrogen. Vaginal estrogen is available in a flexible ring that is worn in the vagina for three months (eg, Estring ), a small tablet (Vagifem ), or a cream (eg, Premarin or Estrace ). Vaginal estrogen is discussed in more detail in a separate topic review. Antibiotics -- A preventive antibiotic treatment may be recommended if you repeatedly develop bladder infections and have not responded to other preventive measures. Antibiotics are highly effective in preventing recurrent bladder infections and can be taken in several different ways. Preventive antibiotic -- You can take a low dose of an antibiotic once per day or three times per week for six months to several years. Antibiotics following intercourse -- In women who develop urinary tract infections after sex, taking a single low dose antibiotic after intercourse can help to prevent bladder infections. Self-treatment -- A plan to begin antibiotics at the first sign of a bladder infection may be recommended in some situations. Before starting this regimen, it is important that you have had testing (urine cultures) to confirm that your symptoms are caused by a bladder infection; some people have symptoms of a bladder infection but do not actually have an infection. documented in this encounter [facility] 03-09-2023 History of Presen t illness Narrative Episode Visit Count: 15 Therapist That Will Accept/Oversee The Plan Of Care: Blaise Mcginnis PT Start of Care Date: 12/30/22 Onset Date: 12/29/22 Plan of Care Certification Date: 02/21/23 Next Certification Due Date: 03/21/23 Patient Identified by Name and Date of : Yes REHABILITATION AND SPORTS THERAPY PHYSICAL THERAPY TREATMENT NOTE ASSESSMENT: Morena Martinez tolerated the session with fatigue, decreased symptoms, expected muscle soreness, and no issues. She demonstrated improvements in pain and ROM of L shoulder. The patient will continue to benefit from ongoing skilled physical therapy to progress toward set goals. PLAN FOR NEXT VISIT: Continue with stretching and strengthening of L shoulder. Progress to tolerance to facilitate a return to prior functional level. Continue manual therapy based on the early success of this. SUBJECTIVE: Pt reports that overall her L shoulder is improved since last session. She reports that she is having less pain, better ROM for reaching into cupboards overhead and improved ROM for putting L UE on car window with driving. She attributes the recent improvements to the initiation of joint mobilizations for pain. She reports compliance with HEP 2x day. She denies any pain to start today. Pain: Pain Pain Level: 0 Pain Location: Shoulder - Left Description: (no shoulder pain to start today) Frequency: Intermittent Post Treatment Pain Post Treatment Pain Level: No Change Post Treatment Pain Location: Shoulder - Left Post Treatment Symptoms: Pt reported fatigue from a good workout but denied any increase in pain OBJECTIVE MEASURES WITH LEVEL OF FUNCTION: TREATMENT: Therapeutic Exercise: 1: UBE UEs only seat #10 no resistance x6 minutes (Pt provided an update on her condition and plan of care reviewed.) 2: seated rope and roel for L shoulder abduction x15 in tolerable range but stretching with 3 second hold at top 3: seated rope and roel for L shoulder flexion x15 in tolerable range but stretching with 3 second hold 4: standing rope and roel L shoulder IR stretch with hand behind back x15 with 3 second hold 5: L UE 5 on the wall 1-4 with 2# weight 3x30 seconds 6: L UE alphabet tracing A-Z x2 with 2# weight 7: L shoulder IR stretch behind back grasping bars, stepping to L and squatting 3x30 seconds 8: supine passive PROM of L shoulder by therapist for flexion, abduction, ER(90 degrees of abd), IR(90 degrees of abd) 2x10 each to pt tolerance. 10: L UE holding 2# ball against wall at shoulder height 2x20 CW and 2x20 CCW with 2# wrist weight 11: L UE bodyblade arm at side blade horizontal up and down 3x30 seconds 12: L UE bodyblade elbow flexed 90 degrees blade vertical side to side 3x30 seconds Skilled Intervention: Patient was educated in proper exercise technique and purpose for exercises. Skilled judgment was used in selection of appropriate interventions. Correct performance of therapeutic exercises was facilitated with verbal, visual, and tactile cuing. Patient education as noted. Manual Therapy: 1: Quadrant to L shoulder grade 2 2: Quadrant to L shoulder Grade 3- 3: Caudal glides to L shoulder grade 3 4: lateral glides to L shoulder grade 3 5: A/P to L shoulder grade 3 6: P/A to L shoulder grade 3 7: standing hand behind back mobilzation to winging scapula attempted but unsuccessful and therefore stopped. Joint Mobilizations: Body Region Treated, Patient Position Body Region Treated: All mobilizations were done with [place] approach for pain dominant L shoulder Patient Position: supine Skilled Intervention: Manual skills to improve joint mobility, ROM, and decrease pain. Utilized anatomy knowledge of the therapist, and assessment of patient's response to intervention. Billing Therapeutic Exercise Treatment Minutes: 30 Manual TherapyTreatment Minutes: 15 Skilled Treatment Time Minutes (timed and untimed codes): 45 Total Session Time (minutes): 45 Session Start Time : 1005 Session Stop Time : 1050 Blaise Mcginnis PT documented in this encounter [facility] 03-06-2023 History of Presen t illness Narrative Episode Visit Count: 14 Therapist That Will Accept/Oversee The Plan Of Care: Blaise Mcginnis PT Start of Care Date: 12/30/22 Onset Date: 12/29/22 Plan of Care Certification Date: 02/21/23 Next Certification Due Date: 03/21/23 Patient Identified by Name and Date of : Yes REHABILITATION AND SPORTS THERAPY PHYSICAL THERAPY TREATMENT NOTE ASSESSMENT: Morena Martinez tolerated the session with fatigue, decreased symptoms, and expected muscle soreness. She demonstrated improvements in pain, ROM and exercise tolerance. The patient will continue to benefit from ongoing skilled physical therapy to progress toward set goals. PLAN FOR NEXT VISIT: Continue with stretching and strengthening of L shoulder. Progress to tolerance to facilitate a return to prior functional level. Continue manual therapy. SUBJECTIVE: Pt reports that overall her shoulder has been the same as last session. She reports compliance with HEP 2x day. She denies any pain to start today and denies any increased pain following last session. She reports that pain continues to limit her ability to stretch all the way into her resistance. Pt reports improved ability to reach to the back seat of her car. Pain: Pain Pain Level: 0 Pain Location: Shoulder - Left Description: (no pain to start today) Frequency: Intermittent Post Treatment Pain Post Treatment Pain Level: Better Post Treatment Pain Location: Shoulder - Left Post Treatment Pain Description: (Fatigue only) Post Treatment Symptoms: After session today, pt stated that she was tired but better. She also reported that her shoulder felt better on the pulleys today than it has ever felt and she attributes this to the manual therapy completed at start of session. OBJECTIVE MEASURES WITH LEVEL OF FUNCTION: UE AROM L UE AROM: improved grossly TREATMENT: Therapeutic Exercise: 1: UBE UEs only seat #10 no resistance x6 minutes (Pt provided an update on her condition and plan of care reviewed.) 2: seated rope and roel for L shoulder abduction 3x10 in tolerable range but stretching with 3 second hold at top 3: seated rope and roel for L shoulder flexion 3x10 in tolerable range but stretching with 3 second hold 4: standing rope and roel L shoulder IR stretch with hand behind back 3x10 with 3 second hold 5: L UE 5 on the wall 1-4 with 2# weight 3x30 seconds 6: L UE alphabet tracing A-Z x2 with 2# weight 7: L shoulder IR stretch behind back grasping bars, stepping to L and squatting 3x30 seconds 8: supine passive PROM of L shoulder by therapist for flexion, abduction, ER(90 degrees of abd), IR(90 degrees of abd) 2x10 each to pt tolerance. (attempted AP mobs with ER stretch but this was more painful and stopped.) 10: L UE holding 2# ball against wall at shoulder height 2x20 CW and 2x20 CCW 11: L UE bodyblade arm at side blade horizontal up and down 3x30 seconds 12: L UE bodyblade elbow flexed 90 degrees blade vertical side to side 3x30 seconds Skilled Intervention: Patient was educated in proper exercise technique and purpose for exercises. Skilled judgment was used in selection of appropriate interventions. Correct performance of therapeutic exercises was facilitated with verbal, visual, and tactile cuing. Patient education as noted. Manual Therapy: 1: Quadrant to L shoulder grade 2 2: Quadrant to L shoulder Grade 3- 3: Caudal glides to L shoulder grade 3 4: lateral glides to L shoulder grade 3 5: A/P to L shoulder grade 3 6: P/A to L shoulder grade 3 Joint Mobilizations: Body Region Treated, Patient Position Body Region Treated: All mobilizations were done with [place]le approach for pain dominant L shoulder Patient Position: supine Skilled Intervention: Manual skills to improve joint mobility, ROM, and decrease pain. Utilized anatomy knowledge of the therapist, and assessment of patient's response to intervention. Billing Therapeutic Exercise Treatment Minutes: 33 Manual TherapyTreatment Minutes: 15 Skilled Treatment Time Minutes (timed and untimed codes): 45 Total Session Time (minutes): 48 Session Start Time : 1030 Session Stop Time : 1118 Blaise Mcginnis PT documented in this encounter [facility] 03-03-2023 Miscellaneous Notes [facility] Anticoagulation Clinic Anticoagulation Episode Summary Anticoagulation Care Providers Provider Role Specialty Phone number Milka Mas MD Family Medicine [phone] Morena Martinez is a 58 year old year old female patient being evaluated today for a Telemanagement visit. Patient is currently on the following anticoagulant(s) Warfarin. Labs PT INR (no units) Date Value 07/28/2022 2.7 (pt reported) 03/20/2022 2.7 01/23/2022 2.9 INR Home CoaguChek (no units) Date Value 03/03/2023 2.1 02/10/2023 1.9 01/25/2023 2.2 Hemoglobin (g/dL) Date Value 04/09/2021 15.2 Hematocrit (%) Date Value 04/09/2021 46.7 Platelet Count (k/uL) Date Value 04/09/2021 299 Creatinine (mg/dL) Date Value 01/13/2023 0.77 06/27/2022 0.65 01/12/2022 0.74 03/23/2021 0.60 12/07/2020 0.62 04/01/2020 0.70 Bilirubin, Total (mg/dL) Date Value 01/13/2023 0.4 12/07/2020 0.6 ALT (U/L) Date Value 01/13/2023 15 12/07/2020 33 AST (U/L) Date Value 01/13/2023 13 12/07/2020 35 Estimated Creatinine Clearance: 124.4 mL/min (based on SCr of 0.77 mg/dL). 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: FPC (current) use of anticoagulants Embolism and thrombosis (hcc) Anticoagulation Episode Summary Current INR goal: 2.0-3.0 Assessment: INR result of 2.1 is therapeutic Plan: Current Warfarin Dosing As of 03/03/2023 Full warfarin instructions: 5 mg every Sun, Blaire; 7.5 mg all other days Sent NOBOT message Advised patient to continue current weekly dose as noted above Next home INR check scheduled on 03/17/2023 Ruby Matos [facility] Clinical Pharmacist, Pharmacy Anticoagulation Clinic Pharmacy Anticoagulation Clinic Pager: [phone]. documented in this encounter [facility] 02-27-2023 History of Presen t illness Narrative Episode Visit Count: 12 Therapist That Will Accept/Oversee The Plan Of Care: Blaise Mcginnis PT Start of Care Date: 12/30/22 Onset Date: 12/29/22 Plan of Care Certification Date: 02/21/23 Next Certification Due Date: 03/21/23 Patient Identified by Name and Date of : Yes REHABILITATION AND SPORTS THERAPY PHYSICAL THERAPY TREATMENT NOTE ASSESSMENT: Morena Martinez tolerated the session with fatigue and expected muscle soreness. She demonstrated improvements in exercise tolerance and pain. The patient will continue to benefit from ongoing skilled physical therapy to progress toward set goals. PLAN FOR NEXT VISIT: Continue with stretching and strengthening of L shoulder. Progress to tolerance to facilitate a return to prior functional level. SUBJECTIVE: Pt reports that overall her L shoulder is better. She reports that a steroid was prescribed since her last PT session and as a result, she is feeling better. She reports starting the steroid 02/23/23 and she was feeling better on 02/24/23. She denies any pain to start today. She reports compliance with HEP 2x day. Pain: Pain Pain Level: 0 Pain Location: Shoulder - Left Description: (no pain to start today) Frequency: Intermittent Post Treatment Pain Post Treatment Pain Level: 0 Post Treatment Pain Location: Shoulder - Left Post Treatment Symptoms: After therex today, pt reported fatigue from a good workout but she denied any increase in pain. OBJECTIVE MEASURES WITH LEVEL OF FUNCTION: TREATMENT: Therapeutic Exercise: 1: UBE UEs only seat #10 no resistance x6 minutes (Pt provided an update on her condition and plan of care reviewed.) 2: seated rope and roel for L shoulder abduction 3x10 in tolerable range but stretching with 3 second hold at top 3: seated rope and roel for L shoulder flexion 3x10 in tolerable range but stretching with 3 second hold 4: standing rope and roel L shoulder IR stretch with hand behind back 3x10 with 3 second hold 5: L UE 5 on the wall 1-4 with 1.5# weight 3x30 seconds 6: L UE alphabet tracing A-Z x2 with 1.5# weight 7: L shoulder IR stretch behind back grasping bars, stepping to L and squatting 3x30 seconds 8: supine passive stretching of L shoulder by therapist for flexion, abduction, ER(0 degrees of abd), IR(90 degrees of abd) 2x30 seconds each to pt tolerance. 9: L shoulder strengthening with pink t-band 2x10 for flexion, extension, abduction, IR and ER 10: L UE holding 2# ball against wall at shoulder height 2x20 CW and 2x20 CCW 11: L UE bodyblade arm at side blade horizontal up and down 3x30 seconds 12: L UE bodyblade elbow flexed 90 degrees blade vertical side to side 3x30 seconds Skilled Intervention: Patient was educated in proper exercise technique and purpose for exercises. Skilled judgment was used in selection of appropriate interventions. Correct performance of therapeutic exercises was facilitated with verbal, visual, and tactile cuing. Patient education as noted. Billing Therapeutic Exercise Treatment Minutes: 50 Skilled Treatment Time Minutes (timed and untimed codes): 50 Total Session Time (minutes): 50 Session Start Time : 1030 Session Stop Time : 1120 Blaise Mcginnis PT documented in this encounter [facility] 02-24-2023 Miscellaneous Notes Patient due to test INR today. Will continue to monitor for results. Stacy Ly RPh documented in this encounter [facility] 02-22-2023 Miscellaneous Notes Rx sent in [facility] PA-C Changed pharmacy. [facility] [place]. Katerina Badillo February 22, 2023 3:48 PM documented in this encounter [facility] 02-21-2023 History of Presen t illness Narrative Episode Visit Count: 11 Therapist That Will Accept/Oversee The Plan Of Care: Blaise Mcginnis PT Start of Care Date: 12/30/22 Onset Date: 12/29/22 Plan of Care Certification Date: 02/21/23 Next Certification Due Date: 03/21/23 Patient Identified by Name and Date of : Yes REHABILITATION AND SPORTS THERAPY PHYSICAL THERAPY PROGRESS REPORT PLAN OF CARE UPDATE: Assessment: Morena Martinez demonstrates moderate improvement in lifting, physical activities, recreational activities, reaching behind back, reaching overhead, use hand with arm at shoulder level, driving, cleaning, and grooming. She has progressed toward goals. Patient continues to present with impairments in ADL's, independence in exercise, overall function, patient reported outcome measures, posture, range of motion, soft tissue healing, strength, and symptom management that interfere with lifting, reaching behind back, reaching overhead, grooming, dressing . Current prognosis is Good due to: current objective clinical presentation, good overall health status, acuteness of condition, positive past response to therapy She will benefit from continued skilled therapy services to meet the updated goals for this plan of care as noted below. Updated: 01/26/23 and 02/21/23 Goals for Episode of Care: created on 12/30/22 through 03/30/23 [place] in home exercise program. - MET, will continue and progress to tolerance prn Patient will increase active ROM of L shoulder to equal to R shoulder to allow pt to to improve performance of ADLs. - Partially MET, will continue Patient will demonstrate increase in LUE strength to symmetrical dynamometer testing in order to improve function for prior functional tasks. - Partially MET, will continue Improve postural awareness. - Partially MET, will continue Patient Goals: return to PLOF - Partially MET, will continue Patient Goals: return to PLOF Planned Interventions, Frequency, and Duration: 2x/week, 4 weeks Total Number of Visits Planned: 8 Patient to be seen for Therapeutic exercise (95215), Manual therapy (82976), Self-assisted management (17436), Therapeutic activities (18220), Patient/Family/Caregiver Education, Body Mechanics Training, Functional training, Neuromuscular re-education ([id number]) PLAN FOR NEXT VISIT: Continue with stretching and strengthening of L shoulder. Progress to tolerance to facilitate a return to prior functional level. SUBJECTIVE: Pt reports that overall she is doing well and getting progressively better. Specifically she reports that pain is getting progressively less and that she has been able to do more functionally. She feels that her ROM is improving. 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 She reports improved ability for doing dishes. She reports compliance with HEP 2x day but she has not been doing HEP the past couple of days. She reports new pain the past couple of days in L UT region as well as anterior L shoulder without explanation. She rates her recovery at 60-70% of her PLOF. She reports continued difficulty with washing her hair. Patient Goals: return to PLOF Functional Limitations: lifting, reaching behind back, reaching overhead, grooming, dressing Prior Level of Function: Independent without limitations Pain: Pain Pain Level: 0 Pain Location: Shoulder - Left Description: (no pain currently) Frequency: Intermittent Post Treatment Pain Post Treatment Pain Level: 0 Post Treatment Pain Location: Shoulder - Left Post Treatment Pain Description: (She did report increased pain with passive stretching of L shoulder but this eased by the end of session.) Post Treatment Symptoms: After session pt reported increased soreness and fatigue but no increase in pain. PROMIS Scales Higher is Better 02/14/2023 01/13/2023 Phys Func - Score 40 (mild dysfunction) 37 (moderate dysfunction) Phys Func - Percentile 16 % 10 % Self-Eff Symptom - Score 46 (Average) 41 (Average) Self-Eff Symptom - Percentile 34 % 18 % T-scores: mean of general population = 50. 5 points is clinically meaningfully difference Percentiles provide an indication of how the patient's score ranks in relation to the general population. Higher percentile rankings indicate better function/quality of life. 50th percentile is the average of the general population and indicates half of respondents had a worse score. OBJECTIVE MEASURES WITH LEVEL OF FUNCTION: UE AROM L UE AROM: seated L Shoulder Extension: 60 Degrees L Shoulder Flex: 110 Degrees L Shoulder ABduction: 98 Degrees L Shoulder Internal Rotation (Functional): 37cm less than R reaching behind back L Shoulder External Rotation (Functional): 19cm less than R reaching behind head UE and Cervical Strength Strength Tested: Shoulder Dynamometer Testing Dynamometer Strength R Shoulder Standing Scaption (lbs): 24.6 ft/lbs R Shoulder Standing Abduction (lbs): 25.7 ft/lbs R Shoulder Standing External Rotation (lbs): 19.2 ft/lbs R Shoulder Standing Internal Rotation (lbs): 23 ft/lbs L Shoulder Standing Scaption (lbs): 21.5 ft/lbs L Shoulder Standing Abduction (lbs): 22.2 ft/lbs L Shoulder Standing External Rotation (lbs): 18.2 ft/lbs L Shoulder Standing Internal Rotation (lbs): 19.9 ft/lbs R IR:ER Ratio (%) : 119.79 L IR:ER Ratio (%): 109.34 TREATMENT: Therapeutic Exercise: 1: UBE UEs only seat #10 no resistance x6 minutes (Pt provided an update on her condition and subjective portion of goals assessed for plan of care update.) 2: seated rope and roel for L shoulder abduction 3x10 in tolerable range but stretching with 3 second hold at top 3: seated rope and roel for L shoulder flexion 3x10 in tolerable range but stretching with 3 second hold 4: standing rope and roel L shoulder IR stretch with hand behind back 3x10 with 3 second hold 5: L UE 5 on the wall 1-4 with 1.5# weight 3x30 seconds 6: L UE alphabet tracing A-Z x2 with 1.5# weight 7: L shoulder IR stretch behind back grasping bars, stepping to L and squatting 3x30 seconds 8: supine passive stretching of L shoulder by therapist for flexion, abduction, ER(0 degrees of abd), IR(90 degrees of abd) 2x30 seconds each to pt tolerance. 9: Re-assessment results were reviewed with pt and this information was used as rationale for plan of care recommendations. 13: L UE bodyblade arm at side blade horizontal up and down 2x30 seconds 14: L UE bodyblade elbow flexed 90 degrees blade vertical side to side 2x30 seconds 15: L UE holding 2# ball against wall at shoulder height 2x20 CW and 2x20 CCW Skilled Intervention: Patient was educated in proper exercise technique and purpose for exercises. Skilled judgment was used in selection of appropriate interventions. Correct performance of therapeutic exercises was facilitated with verbal, visual, and tactile cuing. Patient education as noted. Billing Therapeutic Exercise Treatment Minutes: 47 Skilled Treatment Time Minutes (timed and untimed codes): 47 Total Session Time (minutes): 47 Session Start Time : 1048 Session Stop Time : 1135 Blaise Mcginnis PT documented in this encounter [facility] 02-14-2023 History of Presen t illness Narrative Episode Visit Count: 10 Therapist That Will Accept/Oversee The Plan Of Care: Blaise Mcginnis PT Start of Care Date: 12/30/22 Onset Date: 12/29/22 Plan of Care Certification Date: 01/26/23 Next Certification Due Date: 02/23/23 Patient Identified by Name and Date of : Yes REHABILITATION AND SPORTS THERAPY PHYSICAL THERAPY TREATMENT NOTE ASSESSMENT: Morena Martinez tolerated the session with fatigue, expected muscle soreness, and no issues. She demonstrated improvements in pain, function and exercise tolerance. The patient will continue to benefit from ongoing skilled physical therapy to progress toward set goals. PLAN FOR NEXT VISIT: Continue with stretching and strengthening of L shoulder. Progress to tolerance to facilitate a return to prior functional level. SUBJECTIVE: Pt reports giving her L shoulder a good workout on Monday02/10/23 when she went and took 80 photos with large camera and lens. She reports that this caused significant fatigue but no increase in pain. She reports that she is doing more and more with L UE functionally. She denies any pain or problems following last session. She denies any pain to start today. Pain: Pain Pain Level: 0 Pain Location: Shoulder - Left Description: (no pain to start today) Frequency: Intermittent Post Treatment Pain Post Treatment Pain Level: 0 Post Treatment Pain Location: Shoulder - Left Post Treatment Pain Description: (Fatigue only) Post Treatment Symptoms: As pt was leaving, she reported fatigue from a good workout but denied any increase in pain. OBJECTIVE MEASURES WITH LEVEL OF FUNCTION: TREATMENT: Therapeutic Exercise: 1: UBE UEs only seat #10 no resistance x6 minutes (Pt provided an update on her condition and return to prior functional level discussed.) 2: seated rope and roel for L shoulder abduction 3x10 in tolerable range but stretching with 3 second hold at top 3: seated rope and roel for L shoulder flexion 3x10 in tolerable range but stretching with 3 second hold 4: standing rope and roel L shoulder IR stretch with hand behind back 3x10 with 3 second hold 5: L UE 5 on the wall 1-4 with 1.5# weight 3x30 seconds 6: L UE alphabet tracing A-Z x2 with 1.5# weight 7: L shoulder IR stretch behind back grasping bars, stepping to L and squatting 3x30 seconds 8: L Shoulder flexion with pink t-band 2x10 9: L Shoulder ER with pink t-band 2x10 10: L Shoulder IR with pink t-band 2x10 11: L Shoulder abduction with pink t-band 2x10 12: L Shoulder extension with pink t-band 2x10 13: L UE bodyblade arm at side blade horizontal up and down 2x30 seconds 14: L UE bodyblade elbow flexed 90 degrees blade vertical side to side 2x30 seconds 15: L UE holding 2# ball against wall at shoulder height 2x20 CW and 2x20 CCW Skilled Intervention: Patient was educated in proper exercise technique and purpose for exercises. Skilled judgment was used in selection of appropriate interventions. Correct performance of therapeutic exercises was facilitated with verbal, visual, and tactile cuing. Patient education as noted. Billing Therapeutic Exercise Treatment Minutes: 44 Skilled Treatment Time Minutes (timed and untimed codes): 44 Total Session Time (minutes): 44 Session Start Time : 1135 Session Stop Time : 1219 Blaise Mcginnis PT documented in this encounter [facility] 02-10-2023 Miscellaneous Notes [facility] Ambulatory Pharmacy Anticoagulation Clinic Anticoagulation Episode Summary Anticoagulation Care Providers Provider Role Specialty Phone number Milka Mas MD Family Medicine [phone] Morena Martinez is a 58 year old year old female patient being evaluated today for a Telemanagement visit. Patient is currently on the following anticoagulant(s) Warfarin. Labs PT INR (no units) Date Value 07/28/2022 2.7 (pt reported) 03/20/2022 2.7 01/23/2022 2.9 INR Home CoaguChek (no units) Date Value 02/10/2023 1.9 01/25/2023 2.2 01/11/2023 1.6 Hemoglobin (g/dL) Date Value 04/09/2021 15.2 Hematocrit (%) Date Value 04/09/2021 46.7 Platelet Count (k/uL) Date Value 04/09/2021 299 Creatinine (mg/dL) Date Value 01/13/2023 0.77 06/27/2022 0.65 01/12/2022 0.74 03/23/2021 0.60 12/07/2020 0.62 04/01/2020 0.70 Bilirubin, Total (mg/dL) Date Value 01/13/2023 0.4 12/07/2020 0.6 ALT (U/L) Date Value 01/13/2023 15 12/07/2020 33 AST (U/L) Date Value 01/13/2023 13 12/07/2020 35 Estimated Creatinine Clearance: 124.4 mL/min (based on SCr of 0.77 mg/dL). 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 documented in this encounter [facility] 02-09-2023 History of Presen t illness Narrative Episode Visit Count: 9 Therapist That Will Accept/Oversee The Plan Of Care: Blaise Mcginnis PT Start of Care Date: 12/30/22 Onset Date: 12/29/22 Plan of Care Certification Date: 01/26/23 Next Certification Due Date: 02/23/23 Patient Identified by Name and Date of : Yes REHABILITATION AND SPORTS THERAPY PHYSICAL THERAPY TREATMENT NOTE ASSESSMENT: Morena Martinez tolerated the session with fatigue, expected muscle soreness, and no issues. She demonstrated improvements in AROM. The patient will continue to benefit from ongoing skilled physical therapy to progress toward set goals. PLAN FOR NEXT VISIT: Continue with stretching and strengthening of L shoulder. Progress to tolerance to facilitate a return to prior functional level. SUBJECTIVE: Pt reports that she is getting progressively better. She reports that pain is getting better and less. She reports improved ability to retrieve laundry from machine recently. Pt reports seeing Dr. Banks yesterday for follow up. Pt reports being advised to continue with PT as currently planned. Pt reports compliance with HEP 2x day. She denies any pain to start today. Pain: Pain Pain Level: 0 Pain Location: Shoulder - Left Description: (no pain to start today) Frequency: Intermittent Post Treatment Pain Post Treatment Pain Level: 0 Post Treatment Pain Location: Shoulder - Left Post Treatment Pain Description: (fatigue but no increase in pain) Post Treatment Symptoms: After session, pt stated it doesn't hurt, its just tired. OBJECTIVE MEASURES WITH LEVEL OF FUNCTION: UE AROM L UE AROM: standing L Shoulder Extension: 67 Degrees L Shoulder Flex: 113 Degrees L Shoulder ABduction: 95 Degrees L Shoulder Internal Rotation (Functional): 43cm less than R reaching behind back L Shoulder External Rotation (Functional): 26cm less than R reaching behind head TREATMENT: Therapeutic Exercise: 1: UBE UEs only seat #10 no resistance x6 minutes 2: seated rope and roel for L shoulder abduction 3x10 in tolerable range but stretching with 3 second hold at top 3: seated rope and roel for L shoulder flexion 3x10 in tolerable range but stretching with 3 second hold 4: standing rope and roel L shoulder IR stretch with hand behind back 3x10 with 3 second hold 5: L UE on wall standing with pillowcase over hand sliding up 3x10 for flexion stretch 6: L UE alphabet tracing A-Z x3 without weight 7: L shoulder IR stretch behind back grasping bars, stepping to L and squatting 3x30 seconds 8: Shoulder flexion isometric 5 second holds x 5 9: Shoulder ER isometric with 5 second hold x5 10: Shoulder IR isometric 5 second hold x5 11: Shoulder abduction isometric 5 second hold x5 12: Shoulder extension isometric 5 second hold x5 13: L UE bodyblade arm at side blade horizontal up and down 3x30 seconds 14: L UE bodyblade elbow flexed 90 degrees blade vertical 15: L UE holding 2# ball against wall at shoulder height 2x20 CW and 2x20 CCW Skilled Intervention: Patient was educated in proper exercise technique and purpose for exercises. Skilled judgment was used in selection of appropriate interventions. Correct performance of therapeutic exercises was facilitated with verbal, visual, and tactile cuing. Patient education as noted. Billing Therapeutic Exercise Treatment Minutes: 46 Skilled Treatment Time Minutes (timed and untimed codes): 46 Total Session Time (minutes): 46 Session Start Time : 1550 Session Stop Time : 1636 Blaise Mcginnis PT documented in this encounter [facility] 02-08-2023 History of Presen t illness Narrative Images from the original note were not included. Follow Up Visit Chief Complaint Morena Martinez is a 58 year old female who presents today for follow up office visit. Patient presents with: Left Shoulder - Follow Up, Pain, Post Op History of Present Illness PAIN EVALUATION 02/08/2023 1149 Pain Level: 1 Pain Location: Shoulder-Left Description: Aching;Dull Duration Amount of Time: -- DOS: 12/29/22 Frequency: Intermittent HPI: Morena Martinez is a 58 year old female for a follow up visit S/P Left shoulder arthroscopy, removal of hardware, debridement intraarticular, subacromial decompression/acromioplasty. Patient states she is doing well, not taking anything for pain. Pain history is noted as above. Is there any overall improvement in your condition? Yes, pain Any new injury, since being seen last: No REVIEW OF SYMPTOMS: Patient did not have, and does not currently have, any weight loss, malaise, fever, chills, headache, chest pain, chest pressure, palpitations, cough, shortness of breath, orthopnea, paroxsymal nocturnal dyspnea, nausea, vomiting, diarrhea, constipation, melena, hematochezia, urinary difficulties, prolonged bleeding, easily bruising, heat or cold intolerance, new onset joint pain or swelling, new onset extremity weakness or numbness, new onset auditory or visual disturbances, lightheadedness, dizziness, partial loss of consciousness or full loss of consciousness. Current Outpatient Medications Medication Sig acetaminophen-codeine (TYLENOL-CODEINE #3) 300-30 mg per tablet Take 1 tablet by mouth twice daily as needed for pain for up to 90 days. atenolol (TENORMIN) 50 mg tablet Taking 50 mg once daily furosemide (LASIX) 20 mg tablet Take 1 tablet by mouth once daily. NEEDED furosemide (LASIX) 40 mg tablet Take 1 tablet by mouth once daily. (Patient taking differently: Take 40 mg by mouth every other day.) gabapentin (NEURONTIN) 300 mg capsule Take 1 capsule by mouth daily at bedtime for 180 days. lisinopril (ZESTRIL) 10 mg tablet Take 1 tablet by mouth once daily. nystatin (MYCOSTATIN) cream Apply to affected area twice daily. semaglutide (OZEMPIC) 0.25 mg or 0.5 mg (2 mg/3 mL) pen Inject 0.25 mg subcutaneously one time a week for 28 days, THEN 0.5 mg one time a week. tiZANidine (ZANAFLEX) 4 mg tablet Take 1 tablet by mouth every 6 hours as needed. warfarin (COUMADIN) 5 mg tablet 7.5 mg daily No current facility-administered medications for this visit. Physical Exam Vitals: There were no vitals taken for this visit. Psych: Pleasant, good affect and mood General Appearance: Well appearing, alert, in no acute distress, well-hydrated, well nourished.. Skin: Skin color, texture, turgor normal, no suspicious rashes or lesions. Peripheral Pulses: Normal. Neurologic: Gait normal. Reflexes normal and symmetric. Sensation grossly intact.. Lymph Nodes: No cervical lymphadenopathy, No supraclavicular lymphadenopathy, No axillary lymphadenopathy., and No inguinal lymphadenopathy.. Respiratory: No recent pulmonary infection, hemoptysis, chronic cough, or shortness of breath at rest Rheumatologic: Joint deformities: left shoulder pain Right Shoulder Exam Right shoulder exam is normal. Tenderness The patient is experiencing no tenderness. Range of Motion Active abduction: normal Passive abduction: normal Extension: normal External rotation: normal Forward flexion: normal Internal rotation 0 degrees: normal Internal rotation 90 degrees: normal Muscle Strength Abduction: 5/5 Internal rotation: 5/5 External rotation: 5/5 Supraspinatus: 5/5 Subscapularis: 5/5 Biceps: 5/5 Tests Apprehension: negative Harkins test: negative Cross arm: negative Impingement: negative Other Erythema: absent Sensation: normal Pulse: present Comments: B/l med, uln, rad, ax nerves intact Left Shoulder Exam Range of Motion Active abduction: abnormal Passive abduction: abnormal Extension: abnormal External rotation: abnormal Forward flexion: abnormal Internal rotation 0 degrees: abnormal Internal rotation 90 degrees: abnormal Muscle Strength Abduction: 5/5 Internal rotation: 5/5 External rotation: 5/5 Supraspinatus: 5/5 Subscapularis: 5/5 Biceps: 5/5 Tests Apprehension: negative Harkins test: negative Cross arm: negative Impingement: negative Other Erythema: absent Sensation: normal Pulse: present Assessment and Plan Radiographs: I have reviewed the images with the patient and family. Impression: Encounter Diagnosis ICD-10-CM 1. S/P arthroscopy of left shoulder Z98.890 2. Biceps tendinitis of left upper extremity M75.22 Today, in detail, through a thorough evaluation, we discussed possible etiologies of pain and our plans for further diagnostic and therapeutic interventions. We discussed strategies for decreasing pain and improving strength, stability and motion. Patient's questions were answered in detailed. Patient verbalizes understanding and agrees with the treatment plan as discussed. On ozempic, not having weight loss as expected and is going to follow up with pcp for change in dosage Left shoulder stiffness but happy with progress over all; follow up in 2 months Encourage ROM as not candidate for nsaids bc of coumadin Patient aware and in agreement of plan. All questions answered. Lisette Banks D.O. M.P.H. documented in this encounter [facility] 02-07-2023 History of Presen t illness Narrative Chief Complaint Patient presents with: 6 Month Exam Immunizations: Flu vaccination HPI Morena Martinez is a 58 year old female who presents here today for 6 month follow up. No bowel, Gi, or urinary issues. DM/Obesity: Taking Ozempic 0.5 mg weekly which she started today. No longer taking Januvia. Weight last visit in November was 345 lbs. Does not check BS at home. She has actually gained 3 lbs since being on the Ozempic. She is eating less or getting fu faster but feels she is extremely hungry 2 hours later, headache, shakes. She is unsure if he sugars are dropping too low as she doesn't check them. She eats now has to eat breakfast, lunch, and dinner and something in between those 3 meals. She used to only eat breakfast and then go all day till dinner without being hungry. She odes feel like she has more energy. Pain: Chronic; taking Zanaflex 4 mg prn, Gabapentin 300 mg at bedtime, Tylenol #3 1 pill BID. HTN: Taking Atenolol 50 mg whole pill AM, half pill PM and Lisinopril 10 mg daily. No chest pains, dizziness, or SOB. Does not check BP at home. Edema: stable, taking Lasix 40 mg prn. Pt had shoulder surgery done in November by Dr. Banks. She is now doing PT. INR managed by pharmacist. Taking Coumadin. Past medical history, appointments, medications, allergies reviewed. 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 Diffuse cystic mastopathy Diverticulosis of colon (without mention of hemorrhage) Diverticulosis DVT of leg (deep venous thrombosis) (HCC) Right leg Hypertension Irritable bowel syndrome Localized osteoarthrosis not specified whether primary or secondary, other specified sites RT KNEE Migraine, unspecified, with intractable migraine, so stated, without mention of status migrainosus Migraine Obesity, unspecified Osteoarthritis of right knee Other and unspecified disc disorder of unspecified region Intervertebral disc disorders Other disorders of bladder Personal history of colonic polyps 01/21/2015 PMH - PAST MEDICAL HISTORY OF 1989 Pulmonary Embolism Previous Surgical History PAST SURGICAL HISTORY Procedure Laterality Date ANESTH DIAGNOSTIC ARTHROSCOPIC PROC KNEE JOINT 1994 LT KNEE ANESTH DIAGNOSTIC ARTHROSCOPIC PROC KNEE JOINT 1994 RT KNEE APPENDECTOMY ARTHRODESIS [facility] JNT THUMB W/WO FIX Right 02/21/2018 ARTHROSCOPY KNEE DIAGNOSTIC W/WO SYNOVIAL BX SPX 2007 Right knee ARTHRP KNE CONDYLE&PLATU MEDIAL&LAT COMPARTMENTS Right 06/27/2011 CHOLECYSTECTOMY 1979' Cholecystectomy COLONOSCOPY FLX DX W/COLLJ SPEC WHEN PFRMD 01/21/2015 Repeat 2024 I/D PERIANAL ABSCESS, SUPERFICIAL 08/31/2011 LIG/TRNSXJ FLP TUBE ABDL/VAG APPR UNI/BI REDUCTION OF LARGE BREAST Breast reduction REPAIR ANAL FISTULA W/NICHELLE 12/09/2011 REPAIR OF SHOULDER Left 08/2021 Dr Banks RPR UMBILICAL HRNA 5 YRS/> REDUCIBLE Hernia repair, umbilical >5yr, x2 with mesh TOTAL ABDOMINAL HYSTERECT W/WO RMVL TUBE OVARY Hysterectomy, ARIELLE [place] ECTOPIC W/O SALPING&/OOPHORECTOMY Ectopic Family History FAMILY HISTORY Problem Relation Age of Onset Heart Father [place] age 50, sudden Breast Cancer Mother Coronary Artery Disease Brother Quadruple by-pass age 50 Coronary Artery Disease Sister IA late 30's Stroke Sister other (Other) Brother pulmonary embolism other (Other) Sister pulmonary embolism Heart Sister heart attack age 50, stent Diabetes Sister older sister; obese Patient Allergies ALLERGIES Allergen Reactions Levaquin [Levofloxa* Other: See Comments Notes body aches and joint pain when on medication Augmentin [Amoxicil* Other: See Comments Adverse effect, developed yeast infection Bextra [Valdecoxib] Swelling Ankle swelling Celebrex [Celecoxib] Swelling ankle swelling Erythromycin Rash Latex Lovenox [Enoxaparin* Rash Vioxx [Rofecoxib] Swelling ankle swelling Voltaren [Diclofena* Swelling ankle swelling Current Medications Current Outpatient Medications on File Prior to Visit Medication Sig oxyCODONE-acetaminophen (PERCOCET) 5-325 mg tablet Take 1 tablet by mouth every 6 hours as needed for pain. ondansetron (ZOFRAN) 4 mg tablet Take 1 tablet by mouth every 8 hours as needed for nausea/vomiting. semaglutide (OZEMPIC) 0.25 mg or 0.5 mg (2 mg/3 mL) pen Inject 0.25 mg subcutaneously one time a week for 28 days, THEN 0.5 mg one time a week. tiZANidine (ZANAFLEX) 4 mg tablet Take 1 tablet by mouth every 6 hours as needed. atenolol (TENORMIN) 50 mg tablet Take 50 mg in the AM, 25 mg in the PM acetaminophen-codeine (TYLENOL-CODEINE #3) 300-30 mg per tablet Take 1 tablet by mouth twice daily as needed for pain for up to 90 days. SITagliptin phosphate (JANUVIA) 100 mg tablet Take 1 tablet by mouth once daily. (Patient not taking: Reported on 01/09/2023) gabapentin (NEURONTIN) 300 mg capsule Take 1 capsule by mouth daily at bedtime for 180 days. warfarin (COUMADIN) 5 mg tablet 7.5 mg daily nystatin (MYCOSTATIN) cream Apply to affected area twice daily. furosemide (LASIX) 40 mg tablet Take 1 tablet by mouth once daily. (Patient taking differently: Take 40 mg by mouth every other day.) lisinopril (ZESTRIL, PRINIVIL) 10 mg tablet Take 1 tablet by mouth once daily. furosemide (LASIX) 20 mg tablet Take 1 tablet by mouth once daily. NEEDED No current facility-administered medications on file prior to visit. Social History Social History Tobacco Use Smoking status: Former Packs/day: 0.50 Years: 2.00 Additional pack years: 0.00 Total pack years: 1.00 Types: Cigarettes Quit date: 05/01/1979 Years since quittin.8 Smokeless tobacco: Never Vaping Use Vaping Use: Never used Substance Use Topics Alcohol use: Not Currently Drug use: No EXAM: BP 138/88 Pulse 74 Resp 16 Wt (!) 158 kg (348 lb 6.4 oz) BMI 54.57 kg/m General Appearance: Well appearing, alert, in no acute distress, well-hydrated, well nourished. and Morbidly obese. Lungs: Lungs clear to auscultation. No wheezing, rhonchi, rales.. Heart: RRR without murmur, gallop, or rubs. No ectopy. Health Maintenance List Hepatitis B Vaccine(1 of 3 - 3-dose series) Never done DTaP,Tdap,Td Vaccine(1 - Tdap) Never done Shingrix Vaccine(1 of 2) Never done BP Controlled (<130/80) due on 09/29/2021 Mammogram Screening due on 11/30/2021 Diabetic Foot Exam due on 04/09/2022 Pneumococcal Vaccine(2 - PCV) due on 04/09/2022 Influenza Vaccine(1) due on 12/30/2022 Covid-19 Vaccine(3 - Pfizer series) due on 07/20/2023 Dilated Retinal Exam due on 04/15/2023 Urine Albumin:Creatinine Ratio due on 06/27/2023 HbA1C due on 07/14/2023 Annual PCP Team Chronic Disease Visit due on 12/13/2023 LDL Cholesterol due on 01/14/2024 Colorectal Cancer Screening due on 01/21/2025 Depression Assessment Completed Hepatitis C Screening Completed Pap Testing Discontinued HPV Testing Discontinued HIV Screening Discontinued Data reviewed Results Only on 01/25/2023 Component Date Value INR Home CoaguChek 01/25/2023 2.2 Appointment on 01/13/2023 Component Date Value Protein, Total 01/13/2023 7.7 Albumin 01/13/2023 4.2 Calcium, Total 01/13/2023 9.3 Bilirubin, Total 01/13/2023 0.4 Alkaline Phosphatase 01/13/2023 75 AST 01/13/2023 13 ALT 01/13/2023 15 Glucose 01/13/2023 140 (H) BUN 01/13/2023 17 Creatinine 01/13/2023 0.77 Sodium 01/13/2023 139 Potassium 01/13/2023 4.2 Chloride 01/13/2023 102 CO2 01/13/2023 24 Anion Gap 01/13/2023 13 Estimated Glomerular Jeffry* 01/13/2023 90 Cholesterol, Total 01/13/2023 166 Triglyceride 01/13/2023 76 HDL Cholesterol 01/13/2023 46 Non HDL Cholesterol 01/13/2023 120 Fasting Time 01/13/2023 12 VLDL Cholesterol 01/13/2023 15 TC:HDL Ratio 01/13/2023 3.61 LDL Cholesterol 01/13/2023 105 (H) LDL:HDL Ratio 01/13/2023 2.28 Hemoglobin A1C 01/13/2023 6.5 (H) Estimated Average Glucose 01/13/2023 140 Results Only on 01/11/2023 Component Date Value INR Home CoaguChek 01/11/2023 1.6 (A) Admission on 12/29/2022, Discharged on 12/29/2022 Component Date Value Glucose, Point of Care 12/29/2022 135 (A) Glucose, Point of Care 12/29/2022 153 (A) Results Only on 12/14/2022 Component Date Value INR Home CoaguChek 12/14/2022 2.3 ASSESSMENT/PLAN: 1. Type 2 diabetes mellitus without complication, without long-term current use of insulin (HCC) - ICD9: 250.00, ICD10: E11.9 (primary diagnosis) - Controlled Continue with Ozempic 0.5 mg weekly for the next 3 months Recommend healthy diet and exercise 2. Essential hypertension, benign - ICD9: 401.1, ICD10: I10 - Controlled - Continue current medications - Recommend home blood pressure monitoring, to bring results to next visit - Encouraged sodium restriction, DASH or Mediterranean diet - Recommend regular aerobic exercise - Discussed need for and benefit of weight loss. BMI 54.57 kg/(m^2) - ATENOLOL 50 MG TABLET 3. Embolism and thrombosis (HCC) - ICD9: 453.9, ICD10: I74.9 Continue current medications. Continue to monitor INR 4. Inflammatory polyarthropathy (HCC) - ICD9: 714.9, ICD10: M06.4 Continue current medications. 5. Class 3 severe obesity due to excess calories with serious comorbidity and body mass index (BMI) of 50.0 to 59.9 in adult (HCC) - ICD9: 278.01, V85.43, ICD10: E66.01, Z68.43 Stable Continue with Ozempic 0.5 mg weekly for next 3 months Recommend healthy diet and exercise 6. Leg swelling - ICD9: 729.81, ICD10: M79.89 Stable Continue current medications. 7. Chronic midline low back pain without sciatica - ICD9: 724.2, 338.29, ICD10: M54.50, G89.29 Stable Continue current medications. 8. Need for influenza vaccination - ICD9: V04.81, ICD10: Z23 - INFLUENZA VACCINE, AGE 6 MO - 64 YR, QUADRIVALENT (AFLURIA, FLULAVAL, FLUZONE) 9. Need for vaccination - ICD9: V05.9, ICD10: Z23 - INFLUENZA VACCINE, AGE 6 MO - 64 YR, QUADRIVALENT (AFLURIA, FLULAVAL, FLUZONE) - PNEUMOCOCCAL VACCINE (PREVNAR 20) 10. BENIGN HYPERTENSION - ICD9: 401.1, ICD10: I10 - Controlled - Continue current medications - Recommend home blood pressure monitoring, to bring results to next visit - Encouraged sodium restriction, DASH or Mediterranean diet - Recommend regular aerobic exercise - Discussed need for and benefit of weight loss. BMI 54.57 kg/(m^2) - LISINOPRIL 10 MG TABLET Follow up in 3 months with fasting labs prior. I agree with the Chief Complaint, ROS, and Past Histories independently gathered by the clinical ground support equipment mechanic and the remaining scribed note accurately describes my personal service to the patient. Medical Decision Making: Problems: Moderate: 2+ stable chronic illnesses Data: Unique test(s) ordered: 3+ Risk: Moderate: Drug management Medical Decision Making Level: 4 - Moderate Milka Mas MD The documentation for this note was completed by Pinky Dawkins Ma acting as scribe for Milka Mas MD. February 07, 2023 1:59 PM. Pinky Dawkins Ma documented in this encounter [facility] 01-30-2023 History of Presen t illness Narrative Episode Visit Count: 8 Therapist That Will Accept/Oversee The Plan Of Care: Blaise Mcginnis PT Start of Care Date: 12/30/22 Onset Date: 12/29/22 Plan of Care Certification Date: 01/26/23 Next Certification Due Date: 02/23/23 Patient Identified by Name and Date of : Yes REHABILITATION AND SPORTS THERAPY PHYSICAL THERAPY TREATMENT NOTE ASSESSMENT: Morena Martinez tolerated the session with fatigue and expected muscle soreness. She demonstrated improvements in AROM L shoulder flexion and abduction. The patient will continue to benefit from ongoing skilled physical therapy to progress toward set goals. PLAN FOR NEXT VISIT: Continue with stretching and strengthening of L shoulder. Asses response to isometrics and AROM of L shoulder. SUBJECTIVE: Pt rpeorts that she is using her L shoudler for more functional tasks around the house. Pain: Pain Pain Level: 0 Pain Location: Shoulder - Left Post Treatment Pain Post Treatment Pain Level: No Change Post Treatment Pain Location: Shoulder - Left OBJECTIVE MEASURES WITH LEVEL OF FUNCTION: UE AROM L Shoulder Extension: 65 Degrees L Shoulder Flex: 115 Degrees L Shoulder ABduction: 93 Degrees (really pushing it, somewhat uncomfortable) TREATMENT: Therapeutic Exercise: 1: AROM flexion x 5 2: seated rope and roel for L shoulder abduction 3x10 in tolerable range but stretching with 3 second hold at top 3: seated rope and roel for L shoulder flexion 3x10 in tolerable range but stretching with 3 second hold 4: standing rope and roel L shoulder IR stretch with hand behind back 3x10 with 3 second hold 5: L UE on wall standing with pillowcase over hand sliding up 3x10 for flexion stretch 6: L UE 5 on the wall 1-4 4x30 seconds without weight. 7: L shoulder IR stretch behind back grasping bars, stepping to L and squatting 3x30 seconds 8: *Shoulder flexion isometric 5 second holds 2 x 5 9: *Shoulder ER isometric with 5 second hold 2x 5 10: *Shoulder IR isometric 5 second hold 2x 5 11: *Shoulder abduction isometric 5 second hold 2x 5 12: *Shoulder extension isometric 5 second hold 2x 5 13: AROM abduction x 5 14: AROM extension x 5 Skilled Intervention: Patient was educated in proper exercise technique and purpose for exercises. Reviewed and educated patient on additions/changes for home exercise program as above (*). Skilled judgment was provided in selection of appropriate interventions. Provided written instruction for home exercise program to facilitate proper performance and compliance. Correct performance of therapeutic exercises was facilitated with verbal and visual cuing. Billing Therapeutic Exercise Treatment Minutes: 43 Skilled Treatment Time Minutes (timed and untimed codes): 43 Total Session Time (minutes): 43 Session Start Time : 1100 Session Stop Time : 1143 MANSOOR Ralph PT documented in this encounter [facility] 2023 History of Presen t illness Narrative Episode Visit Count: 7 Therapist That Will Accept/Oversee The Plan Of Care: Blaise Mcginnis PT Start of Care Date: 12/30/22 Onset Date: 12/29/22 Plan of Care Certification Date: 01/26/23 Next Certification Due Date: 02/23/23 Patient Identified by Name and Date of : Yes REHABILITATION AND SPORTS THERAPY PHYSICAL THERAPY PROGRESS REPORT PLAN OF CARE UPDATE: Assessment: Morena Mosquedachristiansamantha demonstrates moderate improvement in lifting, reaching behind back, reaching overhead, and grooming. She has progressed toward goals. Patient continues to present with impairments in ADL's, overall function, range of motion, strength, and symptom management that interfere with lifting, reaching behind back, reaching overhead, grooming, dressing . Current prognosis is Good due to: current objective clinical presentation, good overall health status, acuteness of condition, positive past response to therapy. She will benefit from continued skilled therapy services to meet the updated goals for this plan of care as noted below. Updated: 01/26/23 Goals for Episode of Care: created on 12/30/22 through 03/30/23 [place] in home exercise program. - MET, will continue and progress to tolerance prn Patient will increase active ROM of L shoulder to equal to R shoulder to allow pt to to improve performance of ADLs. - Partially MET, will continue Patient will demonstrate increase in LUE strength to 5/5 during manual muscle testing in order to improve function for prior functional tasks. - Not MET, will continue Improve postural awareness. - Partially MET, will continue Patient Goals: return to PLOF - Not MET, will continue Patient Goals: return to PLOF Planned Interventions, Frequency, and Duration: 1x/week, 4 weeks Total Number of Visits Planned: 4 Patient to be seen for Therapeutic exercise (50652), Manual therapy ([id number]), Self-assisted management (69835), Therapeutic activities (37648), Patient/Family/Caregiver Education, Body Mechanics Training, Functional training, Neuromuscular re-education ([id number]) PLAN FOR NEXT VISIT: Continue with stretching and strengthening of L shoulder to decrease pain, increase ROM, increase strength and facilitate a return to prior functional level. SUBJECTIVE: Pt reports that overall she is better than she was at evaluation 12/30/22. She reports that her pain in L shoulder is less, ROM is improved and functional use of L UE is improved. She reports compliance with HEP 2x day. She reports that overall she has regained 40-50% of her prior functional level. Patient Goals: return to PLOF Functional Limitations: lifting, reaching behind back, reaching overhead, grooming, dressing Prior Level of Function: Independent without limitations Intake Information: Prescription present Previous Treatment: Surgery , Physical Therapy , Injections Pain: Pain Pain Level: 0 Pain Location: Shoulder - Left Description: (no pain to start today) Frequency: Intermittent Post Treatment Pain Post Treatment Pain Level: No Change Post Treatment Pain Location: Shoulder - Left Post Treatment Pain Description: (fatigue) Post Treatment Symptoms: After session today, she denied any increase in pain, just fatigue from a good workout. PROMIS Scales Higher is Better 01/13/2023 Phys Func - Score 37 (moderate dysfunction) Phys Func - Percentile 10 % Self-Eff Symptom - Score 41 (Average) Self-Eff Symptom - Percentile 18 % T-scores: mean of general population = 50. 5 points is clinically meaningfully difference Percentiles provide an indication of how the patient's score ranks in relation to the general population. Higher percentile rankings indicate better function/quality of life. 50th percentile is the average of the general population and indicates half of respondents had a worse score. OBJECTIVE MEASURES WITH LEVEL OF FUNCTION: Posture / Alignment Posture: Forward head, Rounded shoulders UE AROM L UE AROM: seated L Shoulder Extension: 65 Degrees L Shoulder Flex: 100 Degrees L Shoulder ABduction: 88 Degrees L Shoulder Internal Rotation (Functional): 43 cm less than R reaching behind back L Shoulder External Rotation (Functional): 19cm less than R reaching behind head UE and Cervical Strength L UE Strength: AROM is still significantly limited and this indicates weakness as well as joint restriction from the capsule. Pt will benefit from increase strength as ROM increases. TREATMENT: Therapeutic Exercise: 1: UBE UEs only seat #10 no resistance x6 minutes (Pt provided an update on her condition and therapy plans were reviewed.) 2: seated rope and roel for L shoulder abduction 2x10 in tolerable range but stretching. 3: seated rope and roel for L shoulder flexion 2x10 in tolerable range but stretching. 4: standing rope and roel L shoulder IR stretch with hand behind back 2x10 5: seated stretches at table with UE on table in front for flexion stretch 3x30 seconds 6: seated stretches at table with UE on table out to side for abduction stretch 3x30 seconds 7: seated at table with L UE out to side on table with elbow flexed 90 degrees and ER stretch 3x30 seconds 8: L shoulder IR stretch behind back grasping bars, stepping to L and squatting 3x30 seconds 9: L UE on wall standing with pillowcase over hand sliding up 3x10 for flexion stretch 10: L UE 5 on the wall 1-4 3x30 seconds without weight. 11: Re-assessment results were reviewed with patient and used as rationale for proposed plan of care recommendations. HEP was thoroughly reviewed and continuation encouraged to tolerance. Skilled Intervention: Patient was educated in proper exercise technique and purpose for exercises. Skilled judgment was provided in selection of appropriate interventions. Correct performance of therapeutic exercises was facilitated with verbal, visual, and tactile cuing. Patient education as noted. Billing Therapeutic Exercise Treatment Minutes: 45 Skilled Treatment Time Minutes (timed and untimed codes): 45 Total Session Time (minutes): 45 Session Start Time : 1550 Session Stop Time : 1635 Blaise Mcginnis PT documented in this encounter [facility] 01-23-2023 History of Presen t illness Narrative Episode Visit Count: 6 Therapist That Will Accept/Oversee The Plan Of Care: Blaise Mcginnis PT Start of Care Date: 12/30/22 Onset Date: 12/29/22 Plan of Care Certification Date: 12/30/22 Next Certification Due Date: 03/30/23 Patient Identified by Name and Date of : Yes REHABILITATION AND SPORTS THERAPY PHYSICAL THERAPY TREATMENT NOTE ASSESSMENT: Morena Martinez tolerated the session with fatigue, decreased symptoms, and expected muscle soreness. She demonstrated improvements in PROM of L shoulder with pulleys.. The patient will continue to benefit from ongoing skilled physical therapy to progress toward set goals. PLAN FOR NEXT VISIT: Continue with therex to focus on ROM without causing severe pain or inflammation. Give wand IR for HEP if having difficulty with use of roel for IR. SUBJECTIVE: Pt reports that her shoulder is not too bad today. Pt states she has been giving her shoulder a decent workout. Pain: Pain Pain Level: 0 Pain Location: Shoulder - Left Frequency: Intermittent Post Treatment Pain Post Treatment Pain Location: Shoulder - Left OBJECTIVE MEASURES WITH LEVEL OF FUNCTION: UE PROM L Shoulder Flex: 118 Degrees (with pulleys) L Shoulder ABduction: 105 Degrees (with pulleys) TREATMENT: Therapeutic Exercise: 1: UBE forward x 3 minutes. 1:1 throughout, subjective collected. 2: seated rope and roel for L shoulder abduction 3x10 in tolerable range but stretching. 3: seated rope and roel for L shoulder flexion 3x10 in tolerable range but stretching. 4: seated stretches at table with UE on table in front for flexion stretch 3x30 seconds 5: seated stretches at table with UE on table out to side for abduction stretch 3x30 seconds 6: seated at table with L UE out to side on table with elbow flexed 90 degrees and ER stretch 3x30 seconds 7: L UE alphabet tracing A-Z x2 without weight 8: Standing IR with wand behind back 2x10, split into 2 motions Skilled Intervention: Patient was educated in proper exercise technique and purpose for exercises. Skilled judgment was provided in selection of appropriate interventions. Correct performance of therapeutic exercises was facilitated with verbal and visual cuing. Billing Therapeutic Exercise Treatment Minutes: 45 Skilled Treatment Time Minutes (timed and untimed codes): 45 Total Session Time (minutes): 45 Session Start Time : 1100 Session Stop Time : 1145 MANSOOR Ralph PT documented in this encounter [facility] 01-19-2023 History of Presen t illness Narrative Episode Visit Count: 5 Therapist That Will Accept/Oversee The Plan Of Care: Blaise Mcginnis PT Start of Care Date: 12/30/22 Onset Date: 12/29/22 Plan of Care Certification Date: 12/30/22 Next Certification Due Date: 03/30/23 Patient Identified by Name and Date of : Yes REHABILITATION AND SPORTS THERAPY PHYSICAL THERAPY TREATMENT NOTE ASSESSMENT: Morena Martinez tolerated the session with decreased symptoms and increased ROM. She demonstrated difficulty with AROM and PROM and improvements in pain and exercise tolerance today. The patient will continue to benefit from ongoing skilled physical therapy to progress toward set goals. PLAN FOR NEXT VISIT: Continue with therex to focus on ROM without causing severe pain or inflammation. Stretching will need to be on the aggressive and persistent side but not foolishly aggressive. Strengthening will also be necessary. SUBJECTIVE: Pt reports improvements since last session. She reports that her pain is decreasing and motion is improving. She reports compliance with HEP 2x day most days. She reports that her motion is noticeably better today than last session 2 days ago. She reports that her recent improvement is unexplained. Pain: Pain Pain Level: 0 Pain Location: Shoulder - Left Description: (no pain to start today) Frequency: Intermittent Post Treatment Pain Post Treatment Pain Level: No Change Post Treatment Pain Location: Shoulder - Left Post Treatment Pain Description: (no pain after) Post Treatment Symptoms: After session, pt reported considerable fatigue but denied any increase in pain. OBJECTIVE MEASURES WITH LEVEL OF FUNCTION: UE AROM R UE AROM: seated L UE AROM: seated R Shoulder Extension: 66 Degrees R Shoulder Flex: 160 Degrees R Shoulder ABduction: 177 Degrees L Shoulder Extension: 50 Degrees L Shoulder Flex: 93 Degrees (PROM does not exceed AROM) L Shoulder ABduction: 76 Degrees (PROM does not exceed AROM) UE PROM L UE PROM: L shoulder PROM does not exceed AROM TREATMENT: Therapeutic Exercise: 1: [employer] seat #13 UE only for last 1 minute, resistance level 0 x5 minutes total (Entire time was spent using a model of the shoulder to educate patient on anatomy and her procedure based on operative report from 12/29/22. All of her questions were answered.) 2: seated rope and roel for L shoulder flexion 3x10 in tolerable range but stretching. 3: seated rope and roel for L shoulder abduction 3x10 in tolerable range but stretching. 4: standing rope and roel L shoulder IR stretch with hand behind back 3x10 5: HEP was thoroughly reviewed and continuation encouraged (wand AAROM, rope and roel and table stretches, all to tolerance) 6: *seated stretches at table with UE on table in front for flexion stretch 3x30 seconds 7: *seated stretches at table with UE on table out to side for abduction stretch 3x30 seconds 8: *seated at table with L UE out to side on table with elbow flexed 90 degrees and ER stretch 3x30 seconds 9: L UE alphabet tracing A-Z x2 without weight 10: L UE holding 2# ball against wall at shoulder height CW 2x10 and CCW 2x10. Skilled Intervention: Patient was educated in proper exercise technique and purpose for exercises. Reviewed and educated patient on additions/changes for home exercise program as above (*). Skilled judgment was provided in selection of appropriate interventions. Provided written instruction for home exercise program to facilitate proper performance and compliance. Correct performance of therapeutic exercises was facilitated with verbal, visual, and tactile cuing. Patient education as noted. Billing Therapeutic Exercise Treatment Minutes: 48 Skilled Treatment Time Minutes (timed and untimed codes): 48 Total Session Time (minutes): 48 Session Start Time : 1500 Session Stop Time : 1547 Lbaise Golias, PT documented in this encounter [facility] 01-13-2023 History of Presen t illness Narrative Episode Visit Count: 3 Therapist That Will Accept/Oversee The Plan Of Care: Blaise Mcginnis PT Start of Care Date: 12/30/22 Onset Date: 12/29/22 Plan of Care Certification Date: 12/30/22 Next Certification Due Date: 03/30/23 Patient Identified by Name and Date of : Yes REHABILITATION AND SPORTS THERAPY PHYSICAL THERAPY TREATMENT NOTE ASSESSMENT: Morena Martinez tolerated the session with fatigue and expected muscle soreness. She demonstrated improvements in L shoulder flexibility with PROM. The patient will continue to benefit from ongoing skilled physical therapy to progress toward set goals. PLAN FOR NEXT VISIT: Continue with AAROM and PROM of Holli benjamin SUBJECTIVE: Pt reports that her shoulder is not feeling too bad today. Pt states that yesterday was not a good day. Pt is using her shoulder more today. Pain: Pain Pain Level: 2 Pain Location: Shoulder - Left Description: (feels cold inside, but not cold to touch) Post Treatment Pain Post Treatment Pain Level: No Change Post Treatment Pain Location: Shoulder - Left OBJECTIVE MEASURES WITH LEVEL OF FUNCTION: Good relaxation of L shoulder noted with PROM. TREATMENT: Therapeutic Exercise: 1: *Shoulder pulleys for flexion 2x10 2: *Seated wand AAROM flexion 3x5 3: *Seated wand ER 3x5 4: *Seated wand AAROM abduction 3x5 5: seated scapular squeezes, 3x10 6: PROM of L shoulder in sitting flexion and abduction with elbow bent 2x10 each Skilled Intervention: Patient was educated in proper exercise technique and purpose for exercises. Reviewed and educated patient on additions/changes for home exercise program as above (*). Skilled judgment was provided in selection of appropriate interventions. Provided written instruction for home exercise program to facilitate proper performance and compliance. Correct performance of therapeutic exercises was facilitated with verbal and visual cuing. Billing Therapeutic Exercise Treatment Minutes: 40 Skilled Treatment Time Minutes (timed and untimed codes): 40 Total Session Time (minutes): 40 Session Start Time : 1015 Session Stop Time : 1055 MANSOOR Ralph PT documented in this encounter [facility] 01-11-2023 Miscellaneous Notes [facility]ticoagulation Clinic Anticoagulation Episode Summary Anticoagulation Care Providers Provider Role Specialty Phone number Milka Mas MD Family Medicine [phone] Morena Martinez is a 57 year old year old female patient being evaluated today for a Telemanagement visit. Patient is currently on the following anticoagulant(s) Warfarin. Labs PT INR (no units) Date Value 07/28/2022 2.7 (pt reported) 03/20/2022 2.7 01/23/2022 2.9 INR Home CoaguChek (no units) Date Value 01/11/2023 1.6 12/14/2022 2.3 11/29/2022 2.3 Hemoglobin (g/dL) Date Value 04/09/2021 15.2 Hematocrit (%) Date Value 04/09/2021 46.7 Platelet Count (k/uL) Date Value 04/09/2021 299 Creatinine (mg/dL) Date Value 06/27/2022 0.65 01/12/2022 0.74 07/01/2021 0.76 03/23/2021 0.60 12/07/2020 0.62 04/01/2020 0.70 Bilirubin, Total (mg/dL) Date Value 06/27/2022 0.6 12/07/2020 0.6 ALT (U/L) Date Value 06/27/2022 19 12/07/2020 33 AST (U/L) Date Value 06/27/2022 23 12/07/2020 35 CrCl cannot be calculated (Patient's most recent lab result is older than the maximum 180 days allowed.). 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: Anticoagulation Episode Summary Current INR goal: 2.0-3.0 Assessment: INR result of 1.6 is SUBtherapeutic due to: No obvious cause She has been back on warfarin since 12/30. Pt denies missed or decrease doses, changes in Warfarin tablet color or shape, eating more green vegetables, or consumption of liver or green tea, Ensure, Boost, [place] Instant Breakfast, Mulit-Vitamins, and V-8. Plan: Current Warfarin Dosing As of 12/28/2022 Full warfarin instructions: 12/28: Hold; 12/29: Hold; 12/30: 10 mg; Otherwise 5 mg every Sun, Blaire; 7.5 mg all other days Called and spoke to patient/caregiver Advised patient to increase dose for 1 day only then resume weekly regimen Next home INR check scheduled on 01/25/23 Patient verbalizes understanding of the plan. Patient denies need for refills. Dori Pepper RPh Clinical Pharmacist, Pharmacy Anticoagulation Clinic Pharmacy Anticoagulation Clinic Pager: [phone]. documented in this encounter [facility] 01-11-2023 Miscellaneous Notes Patient was due to test INR today will continue to monitor for results. Dori Pepper PharmD Pt was admitted on 12/29 and had shoulder surgery: Left shoulder arthroscopy, removal of hardware, debridement intraarticular, subacromial decompression/acromioplasty. She held warfarin for 6 days and resumed on 12/30. Advised her to continue her current dose and retest on or by 01/11. Dori Pepper PharmD, CACP Patient was due to test INR today will continue to monitor for results. It looks like her shoulder surgery scheduled for 12/22 was cancelled. She was holding warfarin for 5 days before. It looks like it has yet to be scheduled. When she tests, we can discuss that. Dori Pepper PharmD documented in this encounter [facility] 01-09-2023 History of Presen t illness Narrative POST OP Austyn Arango PA-C Orthopaedics [address] [id number] Dept: [phone] Ms. Martinez presents today for her 10-14 day visit from: status post left shoulder arthroscopy with removal of hardware, intraarticular debridement, and subacromial decompression/acromioplasty with Dr. Banks on 12/29/2022. History: PAIN EVALUATION 01/09/2023 1121 Pain Level: 1 Pain Location: Shoulder-Left Description: Aching Frequency: Intermittent Intervention/Comfort measure: Support surface Comments: wearing sling She is doing well postoperatively. Patients rates her condition as improving. The patient denies warmth, discharge, drainage, fevers, chills, sweats. She reports compliance with sling and wound care. She wishes to discontinue wearing the sling. She is participating in outpatient PT. She reports no change in past medical & surgical history, medications, allergies, social history, family history and review of systems since last visit, with the exception of the following: None Review of Systems All other systems reviewed and are negative. Radiographs: Not applicable Physical Examination: Left shoulder: Appropriate postop appearance No evidence of erythema, warmth, discharge or drainage Incision clean/dry/intact mild tenderness about the greater tuberosity Positive axillary, musculocutaneous, median, ulna, and radial nerve function Positive distal pulses PROCEDURE: Not applicable Assessment and Plan: S/P left shoulder arthroscopy at normal post operative stage of recovery Progressing as expected in the immediate post operative period. Advised ok to discontinue sling Post op care discussed, all questions answered. Continue outpatient physical therapy Follow up in 4 weeks for repeat clinical evaluation with Dr. Jocelyn Arango PA-C documented in this encounter [facility] 01-06-2023 Miscellaneous Notes [facility] [address] Chart Copy of medications dispensed to patient for home use January 06, 2023 Physician Initial: JOHN CEDILLO Morena Martinez Medication: Ozempic 0.25, 0.5 1x3 mL prefilled pens. .68 mg/mL. Qty: 5 boxes Directions: Inject 0.25 subcutaneously one time a week for 28 days, then 0.5 mg one time a week. Medications administered, dispensed and verified on the date indicated above Patient has been notified to product picker medication in Dr. Mas's office. Catrachito Serna Ma documented in this encounter [facility] 12-30-2022 History of Presen t illness Narrative Episode Visit Count: 1 Therapist That Will Accept/Oversee The Plan Of Care: Blaise Mcginnis PT Start of Care Date: 12/30/22 Onset Date: 12/29/22 Plan of Care Certification Date: 12/30/22 Next Certification Due Date: 03/30/23 Patient Identified by Name and Date of : Yes REHABILITATION AND SPORTS THERAPY PHYSICAL THERAPY EVALUATION PLAN OF CARE: Assessment: Morena Martinez presents with diagnosis of s/p L shoulder arthroscopy that interferes with lifting, reaching overhead, grooming, cleaning, recreational activities . She presents with impairments in posture, range of motion, and strength. Patient did not complete the PROMIS (Patient Reported Outcome Measures Information System). Prognosis for therapy is Good due to: current objective clinical presentation . She will benefit from skilled therapy services to meet the goals established for this plan of care as noted below. Goals for Episode of Care: created on 12/30/22 through 03/30/23 [place] in home exercise program. Patient will increase active ROM of L shoulder to equal to R shoulder to allow pt to to improve performance of ADLs. Patient will demonstrate increase in LUE strength to 5/5 during manual muscle testing in order to improve function for prior functional tasks. Improve postural awareness. Patient Goals: return to PLOF Planned Interventions, Frequency, and Duration: Current Frequency: 2x/week Duration: 4 weeks (reassess at 4 weeks and progress as indicated) Total Number of Visits Planned: 8 Planned Treatment Interventions: Therapeutic exercise (51516), Neuromuscular re-education (09008), Manual therapy (02641), Self-assisted management (79442), Patient/Family/Caregiver Education PLAN FOR NEXT VISIT: progress exercises according to protocol Patient demonstrates good understanding of plan of care and treatment. The above goals and plan of care were discussed and agreed upon by patient/family. SUBJECTIVE: Pt is s/p L shoulder arthroscopy from 12/29/22. Pt reports feeling good, a little sore but not much pain. Pt reports having follow up in a couple weeks. Patient Goals: return to PLOF Functional Limitations: lifting, reaching overhead, grooming, cleaning, recreational activities Prior Level of Function: Independent without limitations Relevant History Past Relevant Medical Conditions: (see note) Past Relevant Surgical Conditions: (see note) Employment: Unemployed Recreation / Current Exercise: occasional walking Intake Information: Prescription present Previous Treatment: Surgery , Physical Therapy , Injections Falls Interview: No positive findings with falls interview Aquatic Screen: No Pain: Pain Pain Level: 1 Pain Location: Shoulder - Left Description: Sore Frequency: Intermittent Post Treatment Pain Post Treatment Pain Level: No Change PROMIS Scales T-scores: mean of general population = 50. 5 points is clinically meaningfully difference Percentiles provide an indication of how the patient's score ranks in relation to the general population. Higher percentile rankings indicate better function/quality of life. 50th percentile is the average of the general population and indicates half of respondents had a worse score. OBJECTIVE MEASURES WITH LEVEL OF FUNCTION: Posture / Alignment Posture: Forward head, Rounded shoulders Shoulder Observations L Shoulder Presents with: Incision Incision: Surgical dressings appear clean. No redness or swelling around dressings. UE AROM R UE AROM: WNL L UE AROM: Not tested due to post-op status. UE and Cervical Strength Strength Tested: Shoulder All R UE Strength: 5/5 grossly L UE Strength: Not tested due to post-op status. Education: Education Learning Preferences: Demonstration, Explanation, Performance, Printed Materials Barriers: None Learning/educational needs: Procedure / Surgery, Home exercise program, Plan of Care Education Provided: Yes, see treatment interventions for education provided Education Provided To: Patient Education Mode/Type: Demonstration, Explanation/Discussion, Literature/Printed Materials, Performance Response to Education/Teach Back: States/Identifies, Return Demonstration TREATMENT: PT Treatment Interventions: Therapeutic Exercise, Self-Skilled Nursing Management Evaluation Therapeutic Exercise: 1: *standing L shoulder pendulums: front to back, side to side, circles (sling donned) 2: *seated scapular squeezes, 2x10 3: *seated AROM L wrist: flexion/extension, inv/ev, circles 4: *seated UT stretch, [id number] each Skilled Intervention: Patient was educated in proper exercise technique and purpose for exercises. Reviewed and educated patient on additions/changes for home exercise program as above (*). Skilled judgment was provided in selection of appropriate interventions. Provided written instruction for home exercise program to facilitate proper performance and compliance. Self-Skilled Nursing Management: 1: Reviewed rehab precautions: sling for first 2 weeks, no elbow extension past 90 degrees for first 3 weeks 2: Reviewed importance of upright posture Skilled Intervention: Skilled judgment in the selection of proper modification for activity of daily living/home management based on clinical presentation, deficits, and needs. Billing * Evaluation Low Complexity: 1 Unit Therapeutic Exercise Treatment Minutes: 10 Self-Care/Home Management Treatment Minutes: 6 Total Treatment Time Minutes (timed/untimed): 30 Total Session Time (minutes): 30 Session Start Time : 830 Session Stop Time : 900 Carli Skelton PT documented in this encounter [facility] 12-29-2022 Note HNO ID: [id number] Author: Charanjit Salinas DO Service: Nursing Author Type: Physician Type: Anesthesia Procedure Notes Filed: 12/29/2022 12:57 PM Note Text: ANESTHESIOLOGY PROCEDURE NOTE Peripheral Nerve Block General Information Procedure Start Time/Medication Administration: 12/29/2022 9:39 AM Procedure End time: 12/29/2022 9:46 AM Patient location during procedure: PACU Timeout Performed Pre-procedure: timeout performed Consent Obtained: Yes Patient identity confirmed: arm band, care executive officer special warfare team and patient Reason for block: post-op pain management/at surgeon's request Staffing Anesthesiologist: Charanjit Salinas DO SRNA: Barbara Crawley SRNA Performed by: anesthesiologist and SRNA Preparation Sterility Preparation: hand hygiene performed prior to procedure, sterile gloves, drapes, and procedure tray, surgical cap used, mask used, sterile drape used during line insertion, skin prep agent completely dried prior to procedure Site Prep: Chloraprep Pre-Procedure Neuro Exam Location: LUE Sensory: intact Motor: intact Procedure Details Patient Position: supine Monitoring: Pulse OX, EKG and NIBP Block Type Upper Extremity: brachial plexus Approach: interscalene Laterality: left Injection Technique: single-shot Ultrasound Guided: Yes Image in Chart: yes Needle Needle Gauge: 21 G Needle Length: 100 mm Needle Localization: ultrasound Assessment Injection assessment: negative aspiration, no paresthesia on injection, incremental injection and local visualized surrounding nerve on ultrasound Paresthesia: none Post-Procedure Neuro Exam Expected Regional Anesthesia: Yes Medications Administered ropivacaine (PF) 5 mg/mL (0.5 %) injection (NAROPIN) - peripheral nerve block 12 mL - 12/29/2022 9:45:00 AM dexamethasone sodium phosphate injection (DECADRON) - peripheral nerve block 4 mg - 12/29/2022 9:45:00 AM SIGNATURE: SARAH Greene PATIENT NAME: Morena Martinez DATE: December 29, 2022 TIME: 10:54 AM CSN: [id number] [facility] [place] 12-29-2022 Note HNO ID: [id number] Author: Barbara Crawley SRNA Service: Nursing Author Type: Student Type: Anesthesia Procedure Notes Filed: 12/29/2022 10:38 AM Note Text: ANESTHESIOLOGY PROCEDURE NOTE Airway General Information Procedure Start Time/Medication Administration: 12/29/2022 10:12 AM Patient location during procedure: OR Timeout Performed Pre-procedure: timeout performed Consent Obtained: Yes Patient identity confirmed: arm band, patient and care executive officer special warfare team Staffing PREVOCATIONAL/REHABILITATION COUNSELOR: Gilbert Dumas APRN.PREVOCATIONAL/REHABILITATION COUNSELOR SRNA: Barbara Crawley SRNA Performed by: SARAH and PREVOCATIONAL/REHABILITATION COUNSELOR Indications and Patient Condition Indications for airway management: anesthesia Preoxygenated: yes anesthesia circuit Patient position: sniffing Method: asleep Cricoid Pressure: No Manual In-Line Stabilization: No Difficult Mask: No Airway Accessory: oral airway Final Airway Details Final airway type: endotracheal airway Final Endotracheal Airway: ETT Cuffed: yes Successful intubation technique: direct laryngoscopy Endotracheal tube insertion site: oral Blade: Laquita Blade size: #3 ETT size (mm): 7.0 Measured from: lips Measurement (cm): 22 Placement verified by: chest auscultation and capnometry Cormack-Lehane Classification: grade I - full view of glottis Number of attempts at approach: 1 Failed airway: no Unrecognized esophageal intubation: no SIGNATURE: SARAH Greene PATIENT NAME: Morena Martinez DATE: December 29, 2022 TIME: 10:37 AM CSN: [id number] [facility] [place] 12-23-2022 Miscellaneous Notes Patient has been rescheduled. Silva Parson PA-C Spoke with patient on the phone. Advised ok to restart coumadin today at her normal dose. Apologized for surgery that had to be cancelled last minute this morning as Dr. Banks had a family emergency. Advised we will call her with a reschedule date tomorrow. Patient agreeable. Silva Parson PA-C documented in this encounter [facility] 12-08-2022 Miscellaneous Notes Mailed to pt home. Pt notified via [employer]. Pinky Dawkins Ma Letter printed Milka Mas MD Pt requesting handicap placard. Mail to home address once signed and complete. Update pt via [employer] when ready to be mailed out. Catrachito Serna Ma documented in this encounter [facility] 12-07-2022 Miscellaneous Notes Morena Martinez was called for anticoagulation follow-up. Advised her to hold warfarin 12/17-12/21 and resume when directed post-op. She will plan on testing next week however. Also, she was prescribed a dose of diflucan today so advised her to reduce her dose of warfarin today only to 2.5mg. Dori Pepper PharmD, CACP [facility] [employer] message sent for therapeutic INR. Also, she is scheduled for a shoulder replacement on 12/22. See TE on 11/23 re: mayela-operative management. It looks like she is ok just to hold but checking w/ PCP. Dori Pepper PharmD, CACP documented in this encounter [facility] 12-05-2022 History and physical note HISTORY AND PHYSICAL EXAMINATION SERVICE DATE: 12/05/2022 SERVICE TIME: 8:46 AM PRIMARY CARE PHYSICIAN: Milka Mas MD REASON FOR VISIT: Morena Martinez is a 57 year old female who is scheduled for at the request of Dr. Lisette Banks for. My final recommendation will be communicated back to the requesting physician by way of shared medical record or letter. Subjective The patient has the following: ACTIVE PROBLEM LIST Allergic Rhinitis, Cause Unspecified Diverticulosis of Colon (Without Mention of Hemorrhage) Irritable Bowel Syndrome Migraine, Unspecified, With Intractable Migraine, So Stated, Without Mention of Status Migrainosus Other Disorders of Bladder Diffuse Cystic Mastopathy Localized Osteoarthrosis Not Specified Whether Primary Or Secondary, Other Specified Sites Other and Unspecified Disc Disorder of Unspecified Region Esophageal Reflux Embolism and Thrombosis (Hcc) Restless Legs Syndrome (Rls) Essential Hypertension, Benign Routine Gynecological Examination Class 3 Severe Obesity Due to Excess Calories With Serious Comorbidity and Body Mass Index (Bmi) of 50.0 to 59.9 in Adult (Hcc) Knee Pain 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 of Anticoagulants Chronic Midline Low Back Pain Without Sciatica Type 2 Diabetes Mellitus Without Complication, Without Long-Term Current Use of Insulin (Hcc) Leg Swelling Former Smoker Post-Operative Pain Acute Pain of Left Shoulder Bursitis of Left Shoulder Tendinitis of Left Shoulder COVID-19 Immunization Status Postponed - COVID-19 VACCINE (3 - Pfizer series) Postponed until 07/20/2023 07/19/2022 Postponed until 07/20/2023 by Catrachito Serna Ma (Declined at this time) 08/06/2020 Imm Admin: COVID-19 original vaccine, age 12+ yr, monovalent (PFIZER-BIONTECH - PURPLE TOP) 07/15/2020 Imm Admin: COVID-19 original vaccine, age 12+ yr, monovalent (PFIZER-BIONTECH - PURPLE TOP) CHIEF COMPLAINT: Pre-op exam HPI: RR is a 56 yo seen for PAC due to scheduled above surgery because of bicep tendinitis left upper extremity. 11/16/2022 Dr. Banks Chief Complaint Morena Martinez is a 57 year old female who presents today for follow up office visit. Patient presents with: Left Shoulder - Follow Up, Pain History of Present Illness PAIN EVALUATION 11/10/2022 1125 Pain Level: 4 Pain Location: Arm-Upper Left Description: Cramping;Tightness Frequency: Continuous Intervention/Comfort measure: Reposition HPI: Morena Martinez is a 57 year old female for a follow up visit left shoulder pain. Patient had US guided biceps injection about 2 weeks ago that gave little relief. She is here to discuss next steps as her pain is getting worse with motion. Pain history is noted as above. Is there any overall improvement in your condition? No Any new injury, since being seen last: No REVIEW OF SYSTEMS: General: No weight loss, malaise or fevers. Neurological: No history of TIA's, stroke, MATE SHIP tumor, impaired sensorium, hemiplegia, paraplegia or quadraplegia. No neurological symptoms or problems. Respiratory: +former smoker 0.5ppd/2 years. No history of current cough or dyspnea, or pneumonia in the past 6 weeks. No history of respiratory/pulmonary symptoms or problems. Cardiovascular: Positive for: anticoagulation therapy (Coumadin), DVT/PE (PE/DVT, unknown causes) and hypertension (on rx) Negative for: arrhythmia, atrial fibrillation, CAD, chest pain, CHF, congenital heart defect, hyperlipidemia, recent IA, murmur/valvular heart disease, open heart surgery and valve surgery. GI: No history of GI symptoms or problems. No history of esophageal varices, recent ascites, or ETOH greater than 2 drinks per day. : Positive for: nephrolithiasis (remote passed spon). Negative for: urinary incontinence, renal failure and urinary tract infection. VITAMIN MANAGER: Negative for abnormal vaginal bleeding, abnormal vaginal discharge. Endocrine: Positive for: diabetes mellitus. Patient's diabetes mellitus is controlled by oral agents. Negative for: hypothyroidism. Hematology: Positive for: chronic anti-coagulation/platelet meds. Patient is on anti-coagulation/platelet medication(s): Coumadin. Negative for: anemia, bruises/bleeds easily, factor V Leiden, hemophilia and transfusion of at least 4 units within 72 hours prior to surgery. Oncology: No history of CA metastasis, chemo within 30 days, or radiotherapy within 90 days. No history of oncological symptoms or problems. Psych: No history of psychiatric symptoms or problems. Musculoskeletal: +h/o right TKA Positive for: back pain, joint pain (generalized OA, rx as needed) and swelling (on rx). Skin: Negative for lesions, rash and itching. PAST MEDICAL HISTORY Diagnosis Date Blood dyscrasia 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 Diffuse cystic mastopathy Diverticulosis of colon (without mention of hemorrhage) Diverticulosis DVT of leg (deep venous thrombosis) (HCC) Right leg Hypertension Irritable bowel syndrome Localized osteoarthrosis not specified whether primary or secondary, other specified sites RT KNEE Migraine, unspecified, with intractable migraine, so stated, without mention of status migrainosus Migraine Obesity, unspecified Osteoarthritis of right knee Other and unspecified disc disorder of unspecified region Intervertebral disc disorders Other disorders of bladder Personal history of colonic polyps 01/21/2015 PMH - PAST MEDICAL HISTORY OF 1989 Pulmonary Embolism PAST SURGICAL HISTORY Procedure Laterality Date ANESTH DIAGNOSTIC ARTHROSCOPIC PROC KNEE JOINT 1994 LT KNEE ANESTH DIAGNOSTIC ARTHROSCOPIC PROC KNEE JOINT 1994 RT KNEE APPENDECTOMY ARTHRODESIS CMC JNT THUMB W/WO FIX Right 02/21/2018 ARTHROSCOPY KNEE DIAGNOSTIC W/WO SYNOVIAL BX SPX 2008 Right knee ARTHRP KNE CONDYLE&PLATU MEDIAL&LAT COMPARTMENTS Right 06/27/2011 CHOLECYSTECTOMY Cholecystectomy COLONOSCOPY FLX DX W/COLLJ SPEC WHEN PFRMD 01/21/2015 Repeat 2024 I/D PERIANAL ABSCESS, SUPERFICIAL 08/31/2011 LIG/TRNSXJ FLP TUBE ABDL/VAG APPR UNI/BI REDUCTION OF LARGE BREAST Breast reduction REPAIR ANAL FISTULA W/NICHELLE 12/09/2011 REPAIR OF SHOULDER Left 08/2021 Dr Banks RPR UMBILICAL HRNA 5 YRS/> REDUCIBLE Hernia repair, umbilical >5yr, x2 with mesh TOTAL ABDOMINAL HYSTERECT W/WO RMVL TUBE OVARY Hysterectomy, ARIELLE [place] ECTOPIC W/O SALPING&/OOPHORECTOMY Ectopic FAMILY HISTORY Problem Relation Age of Onset Heart Father [place] age 50, sudden Breast Cancer Mother Coronary Artery Disease Brother Quadruple by-pass age 50 Coronary Artery Disease Sister IA late 30's Stroke Sister other (Other) Brother pulmonary embolism other (Other) Sister pulmonary embolism Heart Sister heart attack age 50, stent Diabetes Sister older sister; obese Social History Tobacco Use Smoking status: Former Packs/day: 0.50 Years: 2.00 Total pack years: 1.00 Types: Cigarettes Quit date: 05/01/1979 Years since quittin.6 Smokeless tobacco: Never Vaping Use Vaping Use: Never used Substance Use Topics Alcohol use: Not Currently Drug use: No Prior to Admission medications as of 12/05/22 0823 Medication Sig Last Dose Taking tiZANidine (ZANAFLEX) 4 mg tablet Take 1 tablet by mouth every 6 hours as needed. Taking Yes atenolol (TENORMIN) 50 mg tablet Take 50 mg in the AM, 25 mg in the PM Taking Yes mupirocin (BACTROBAN) 2 % ointment Apply to affected area three times daily for 10 days. Taking Yes acetaminophen-codeine (TYLENOL-CODEINE #3) 300-30 mg per tablet Take 1 tablet by mouth twice daily as needed for pain for up to 90 days. Taking Yes SITagliptin phosphate (JANUVIA) 100 mg tablet Take 1 tablet by mouth once daily. Taking Yes gabapentin (NEURONTIN) 300 mg capsule Take 1 capsule by mouth daily at bedtime for 180 days. Taking Yes warfarin (COUMADIN) 5 mg tablet 7.5 mg daily Taking Yes nystatin (MYCOSTATIN) cream Apply to affected area twice daily. Taking Yes furosemide (LASIX) 40 mg tablet Take 1 tablet by mouth once daily. Patient taking differently: Take 40 mg by mouth every other day. Taking Yes lisinopril (ZESTRIL, PRINIVIL) 10 mg tablet Take 1 tablet by mouth once daily. Taking Yes furosemide (LASIX) 20 mg tablet Take 1 tablet by mouth once daily. NEEDED Taking Yes No medication comments found. ALLERGIES Allergen Reactions Levaquin [Levofloxa* Other: See Comments Notes body aches and joint pain when on medication Augmentin [Amoxicil* Other: See Comments Adverse effect, developed yeast infection Bextra [Valdecoxib] Swelling Ankle swelling Celebrex [Celecoxib] Swelling ankle swelling Erythromycin Rash Latex Lovenox [Enoxaparin* Rash Vioxx [Rofecoxib] Swelling ankle swelling Voltaren [Diclofena* Swelling ankle swelling Objective PHYSICAL EXAM: General: alert and oriented (x3), healthy appearance and morbidly obese. Pertinent negatives noted - not distressed. Skin: normal color, no rash or lesions. HEENT: EOM intact and pupils equal round. Pertinent negatives noted - no carotid bruit. Cardiovascular: regular rate and rhythm, normal S1 and S2, no rub, murmurs, or gallop. Respiratory: normal breath sounds, no wheezes or crackles. No chest wall deformity or tenderness. Abdomen: soft. Pertinent negatives noted - not tender. Extremities: no deformity, no edema or tenderness, no joint swelling or clubbing. Neurological: normal cognition and motor skills. Gait normal. No weakness or sensory deficit. PAIN ASSESSMENT: Pain Pain Level: 3 Pain Location: Shoulder-Left Description: Sharp, Aching (squeeze) Duration Amount of Time: 6 Duration Units: Months Frequency: Continuous Intervention/Comfort measure: Medication VITALS: BP 140/68 Pulse 59 Temp (Src) 97 (Temporal) Resp 16 Ht 5' 7 (1.70m) Wt 346 lb (156.9kg) SpO2 98% BMI 54.18 kg/(m^2). Diagnostic tests reviewed for today's visit: Lab Value Units Date High Low HB No results within date range. HCT No results within date range. WBC No results within date range. PLT No results within date range. NA 140 mmol/L 06/27/2022 144 136 K 4.6 mmol/L 06/27/2022 5.1 3.7 GLUC 143 mg/dL 06/27/2022 99 74 BUN 13 mg/dL 06/27/2022 21 7 CREAT 0.65 mg/dL 06/27/2022 0.96 0.58 PTSEC No results within date range. INR 2.3 no uni* 11/29/2022 3.0 2.0 INR 2.7 (p* no uni* 07/28/2022 APTT No results within date range. ALT 19 U/L 06/27/2022 38 7 AST 23 U/L 06/27/2022 35 13 TBILI 0.6 mg/dL 06/27/2022 1.3 0.2 TSH No results within date range. Lab Value Units Date High Low HCGQT No results within date range. UHCG No results within date range. HCG, BODY* No results within date range. Lab Value Units Date High Low ABORHD No results within date range. ABSCREEN No results within date range. Hemoglobin A1C (%) Date Value 06/27/2022 6.6 01/12/2022 6.3 07/01/2021 6.4 03/23/2021 6.9 12/07/2020 7.2 04/01/2020 7.3 01/07/2020 8.0 09/16/2019 7.1 No results found for this or any previous visit (from the past 8760 hour(s)). No results found for this or any previous visit (from the past 07559 hour(s)). Assessment Patient has the following medical conditions which may affect mayela-operative course: Class 3 severe obesity due to excess calories with serious comorbidity and body mass index (BMI) of 50.0 to 59.9 in adult ([facility]) Assessment: Body mass index is 54.19 kg/m . Embolism and thrombosis ([facility]) Assessment: hx PE 1989 and DVT 2007, unknown cause. Lifelong AC, received AC instructions from [facility] to hold 5 days Essential Hypertension, Benign Assessment: controlled on rx Last 14 BP Last 14 Encounter BP Readings: Date: BP: 12/05/2022 140/68 11/26/2022 132/82 07/26/2022 144/88 07/19/2022 136/84 05/10/2022 138/80 03/29/2022 124/72 03/21/2022 140/80 03/16/2022 166/76 02/04/2022 132/61 01/18/2022 140/80 09/16/2021 144/80 08/31/2021 193/94 08/06/2021 138/82 07/27/2021 150/69 Former smoker Assessment: 0.5ppd/2 years Irritable Bowel Syndrome Assessment: diet controlled Leg swelling Assessment: controlled on rx Restless Legs Syndrome (RLS) Assessment: hx, improved after retiring Status post total right knee replacement Assessment: hx, right Chronic midline low back pain without sciatica Assessment: rx as needed Type 2 diabetes mellitus without complication, without long-term current use of insulin (HCC) Assessment: controlled on oral agent Hemoglobin A1C (%) Date Value 06/27/2022 6.6 03/23/2021 6.9 Mars Activity Status Index: METS: Climb a flight of stairs or walk up a hill (5.50 METs) DASI Score: 5.5 Patient denies any chest pain or undue shortness of breath with the above physical activity. Clinical Frailty Scale: 4. Apparently vulnerable STOP-Bang Score: Snores loudly Has or is being treated for high blood pressure BMI greater than 35 kg/m^2 Patient over 50 years old Has a large neck Denies feeling tired, fatigued, or sleepy during the daytime Has not been observed to stop breathing or choking/gasping during sleep Non-male patient STOP-Bang Score: 5 [id number] Score: Age: <65 Sex: female CHF history: No Hypertension history: Yes Stroke/TIA/thromboembolism history: No Vascular disease history: No Diabetes history: Yes [id number] Score: 3 ARISCAT Score: Age: 51-80 Preoperative SpO2: >=96% Respiratory infection in the last month: No Preoperative anemia: Yes Surgical incision: peripheral Duration of surgery: <2 hrs Emergency procedure: No ARISCAT Score: 14 ASA Class: 3 ANESTHESIA FINDINGS: Intubation History: No history of difficult intubation Significant Anesthesia Considerations: none Airway History: No history of difficult airway I - PHYSICAL EVALUATION AIRWAY Patient intubated: No. Tracheostomy tube not present Mallampati: III. TM distance: >3 FB. Neck ROM: full ROM without neurological symptoms. Mouth opening: adequate. Short neck: no. Thick neck: yes Lip Bite Test: II Microretrognathia/Micronagthia/R ecessed Chin: No DENTAL Dentures, upper: complete. Dentures, lower: complete. II - ANESTHESIA PLAN ASA Score: 3 Anesthetic Plan: other Anesthetic plan additional comments: *PACC/TCI - anesthesia choice. Beta Yusuf Monitoring Plan Post Procedure Analgesic Plan Informed Consent Anesthetic risks, benefits, alternatives, personnel and consent discussed: yes. Patient / Responsible Libertarian agrees to proceed: yes Patient / Surrogate agrees to blood products: blood products not planned Discussed the possibility of lip / dental damage: yes Prepared for Surgery: optimally prepared for surgery. CONSULTS: Patient does not require consults for optimization at this time Planned Anesthetic: other anesthesia choice The Following Tests/Procedures Have Been Initiated: No orders of the defined types were placed in this encounter. Instructions Given to Patient: Instructions located in the after visit summary. Patient given verbal and written preop instructions and voices comprehension and compliance. SIGNATURE: Ruchi Paul APRN.CNP PATIENT NAME: Morena Martinez DATE: December 05, 2022 TIME: 8:26 AM PAGER/CONTACT #: documented in this encounter [facility] 12-05-2022 Instructions Ruchi Paul APRN.CNP - 12/05/2022 8:25 AM EDT PATIENT PREOPERATIVE INSTRUCTIONS Lisette Banks,* has scheduled you for your procedure at this surgery center: [facility], [place]: [phone] -- [address] [address]. Please read below carefully for your personalized instructions. Dietary Restrictions: - No solid food after midnight. - You may have 12 ounces of clear liquids (water, clear juices such as apple juice or gatorade, carbonated beverages, clear tea, black coffee, jello) until 2 hours before scheduled arrival at facility. No red/purple coloring and no creamer/sugar Medications: Unless instructed differently below, stay on all of your medications until your surgery. Approved medications to take the morning of surgery with a sip of water: All rx meds are okay except Do not take lisinopril (ZESTRIL, PRINIVIL) or furosemide (LASIX) the morning and/or evening prior surgery AND do not take any oral diabetic medication the morning or late evening prior to surgery If you start any new medications after today's visit, please contact the surgeon's office. Blood Thinning Medications: - Stop NSAIDS (Ibuprofen, Advil, Aleve, Motrin, Celebrex, Mobic, etc.) 7 days before surgery, as directed by your surgeon. - Stop Aspirin 7 days before surgery, as directed by your surgeon. - Stop Vitamin E, ALL multi-vitamins, herbals and dietary supplements 7 days before surgery. - You may take Tylenol (Acetaminophen) or any of your pain medications that do not contain aspirin or NSAIDS as needed. - STOP COUMADIN 5 days prior to surgery once confirmed by Anticoagulant clinic Important Reminders: - Candy, mints, gum and tobacco products are NOT permitted the morning of surgery. - Hearing aids, dentures and glasses may be worn the morning of surgery. - NO jewelry, body piercings, makeup, hairpins or contacts are to be worn the day of surgery. If you develop symptoms such as a fever, cold, or flu, or have other changes to your health within TWO DAYS of scheduled surgery or the morning of surgery, please contact the surgery center above. Personal Belongings: -Please have photo ID and insurance cards. -If you do not have a copy of advance directives on file with us, please bring a copy with you on the day of surgery. - Leave ALL valuables and money at home or with family members. For Outpatient Procedures: - YOU MUST HAVE A RESPONSIBLE INTERNAL MEDICINE NURSE PRACTITIONER TAKE YOU HOME. A GOVERNMENT AFFAIRS RESEARCHER OR ASIC VERIFICATION ENGINEER CANNOT BE MADE A RESPONSIBLE INTERNAL MEDICINE NURSE PRACTITIONER. - We recommend that a responsible person stays with you overnight to take care of you. - You cannot stay in a hotel alone after outpatient surgery. You will not be permitted to have your surgery, if you do not have someone to take care of you. Arrival Time for Surgery: - The Surgery Center or hospital where you are having surgery will call the afternoon before surgery (or Monday for Monday surgery) with a scheduled arrival time. - If you have not heard by 4 pm, please contact the surgery center above. Please be aware that emergency situations arise, which may delay or change your surgical time. If this happens, we will notify you as soon as possible and regret any inconvenience. If you already have an Advance Directive, please fax a copy to [phone] or email to for it to be added to your chart. If you do not have an Advance Directive, you can find the appropriate form and more information at [email or web address]. We recommend that you complete the Advance Directive form found on the website and bring it with you the day of your surgery. It can be witnessed and scanned into your chart that day. Ruchi Paul APRN.JOHN documented in this encounter [facility] 12-02-2022 Miscellaneous Notes I do not think she needs bridging with Lovonox, may just hold coumadin and restart the day after surgery. Milka Mas MD Will hold for Dr Mas. Dr. Mas is out until next week. Is this ok to wait on him until his return since he knows her? Patient was due to test INR today will continue to monitor for results. Also, it appears she is scheduled for a left shoulder replacement on 12/22. Per notes from TE on 11/23, Dr. Mas mentioned she could hold warfarin for [address] Mas, do you feel she needs any lovenox due to her history of PE? She did have an IVC filter implant in 2011. Per vascular med note in 2011, in the setting of a history of pulmonary embolus post hysterectomy in 1989 and deep venous thrombosis involving the right calf in 2007 currently on lifelong anticoagulation with Coumadin target INR 2-3 and most recent INR at 2.3. An IVC filter was implanted in June prior to right knee replacement. Patient experienced a severe diffuse rash approximately 24 hours following Lovenox injections. Patient was on oral contraceptives from [id number] with no episodes of DVT. Dori Pepper PharmD [facility] documented in this encounter [facility] 11-30-2022 Miscellaneous Notes Called patient and informed her of the PT order. Told her if it needs faxed to [place] we will do that for her. Patient made aware of coumadin and stated understanding. Katerina Badillo PT order placed. Also per staff message from [facility]- Please let patient know she has to stop coumadin 5 days prior and resume normal dose day after. Per Dr. Gómez not Needs PT day after surgery Surgery is scheduled for 12/22. Is it okay to wait until day of surgery to place order for PT or can we place it now? Please advise, thank you! Katerina Badillo Pt called in saying she was supposed to have a request put in by the For PT the day after her surgery. She is trying to schedule it in [place] but there is no request put in documented in this encounter [facility] 11-30-2022 Miscellaneous Notes The following approved medication requests have been transmitted electronically. Requested Prescriptions Signed Prescriptions Disp Refills tiZANidine (ZANAFLEX) 4 mg tablet 30 tablet 5 Sig: Take 1 tablet by mouth every 6 hours as needed. Byron Jolley APRN.CNP documented in this encounter [facility] 11-28-2022 Miscellaneous Notes The following approved medication requests have been transmitted electronically. Requested Prescriptions Pending Prescriptions Disp Refills atenolol (TENORMIN) 50 mg tablet 135 tablet 3 Sig: Take 50 mg in the AM, 25 mg in the PM Byron Jolley APRN.REFINERY OPERATOR [employer] Patient needs refill of atenolol at mail away pharmacy. documented in this encounter [facility] 11-26-2022 History of Presen t illness Narrative Patient presents with: sore on right hand: Sore on top of right hand x 6 days-getting red and painful HPI: Skin Lesion: Location: back of the right hand Duration: bumped on a counter and scratched the hand 6 days ago, bumped again and bothering her the last day Pruritis/Pain: tender Change: redness Drainage/blister/pustule/ulcerat ion: drained something dark since the second injury Treatment: none MEDICATIONS: acetaminophen-codeine (TYLENOL-CODEINE #3) 300-30 mg per tablet Take 1 tablet by mouth twice daily as needed for pain for up to 90 days. SITagliptin phosphate (JANUVIA) 100 mg tablet Take 1 tablet by mouth once daily. gabapentin (NEURONTIN) 300 mg capsule Take 1 capsule by mouth daily at bedtime for 180 days. warfarin (COUMADIN) 5 mg tablet 7.5 mg daily nystatin (MYCOSTATIN) cream Apply to affected area twice daily. furosemide (LASIX) 40 mg tablet Take 1 tablet by mouth once daily. lisinopril (ZESTRIL, PRINIVIL) 10 mg tablet Take 1 tablet by mouth once daily. atenolol (TENORMIN) 50 mg tablet Take 50 mg in the AM, 25 mg in the PM furosemide (LASIX) 20 mg tablet Take 1 tablet by mouth once daily. NEEDED ALLERGIES: ALLERGIES Allergen Reactions Levaquin [Levofloxa* Other: See Comments Notes body aches and joint pain when on medication Augmentin [Amoxicil* Other: See Comments Adverse effect, developed yeast infection Bextra [Valdecoxib] Swelling Ankle swelling Celebrex [Celecoxib] Swelling ankle swelling Erythromycin Rash Latex Lovenox [Enoxaparin* Rash Vioxx [Rofecoxib] Swelling ankle swelling Voltaren [Diclofena* Swelling ankle swelling VITALS: BP 132/82 Pulse 69 Temp 36.8 C (98.2 F) (Tympanic) Resp 18 Wt (!) 156.1 kg (344 lb 3.2 oz) SpO2 97% BMI 53.91 kg/m PE: Pleasant, in no acute distress. Hand: right. 2mm x 5mm eschar mid dorsal hand. There is faint pink surrounding the eschar for 2 mm. There is no fluctuance or superficial inflammation. There is tenderness directly below the eschar. ASSESSMENT/PLAN: 1. Infected abrasion of skin of right hand - ICD9: 914.1, ICD10: S60.511A, L08.9 Start - MUPIROCIN 2 % TOPICAL OINTMENT. Dressed with mupirocin on an adhesive bandage. Follow up with signs of infection such as increasing redness, pain, swelling, purulent drainage, or fever/malaise. Jorge Doherty MD documented in this encounter [facility] 11-16-2022 History of Presen t illness Narrative Images from the original note were not included. Follow Up Visit Chief Complaint Morena Martinez is a 57 year old female who presents today for follow up office visit. Patient presents with: Left Shoulder - Follow Up, Pain History of Present Illness PAIN EVALUATION 11/10/2022 1125 Pain Level: 4 Pain Location: Arm-Upper Left Description: Cramping;Tightness Frequency: Continuous Intervention/Comfort measure: Reposition HPI: Morena Martinez is a 57 year old female for a follow up visit left shoulder pain. Patient had US guided biceps injection about 2 weeks ago that gave little relief. She is here to discuss next steps as her pain is getting worse with motion. Pain history is noted as above. Is there any overall improvement in your condition? No Any new injury, since being seen last: No REVIEW OF SYMPTOMS: Patient did not have, and does not currently have, any weight loss, malaise, fever, chills, headache, chest pain, chest pressure, palpitations, cough, shortness of breath, orthopnea, paroxsymal nocturnal dyspnea, nausea, vomiting, diarrhea, constipation, melena, hematochezia, urinary difficulties, prolonged bleeding, easily bruising, heat or cold intolerance, new onset joint pain or swelling, new onset extremity weakness or numbness, new onset auditory or visual disturbances, lightheadedness, dizziness, partial loss of consciousness or full loss of consciousness. Current Outpatient Medications Medication Sig SITagliptin phosphate (JANUVIA) 100 mg tablet Take 1 tablet by mouth once daily. gabapentin (NEURONTIN) 300 mg capsule Take 1 capsule by mouth daily at bedtime for 180 days. warfarin (COUMADIN) 5 mg tablet 7.5 mg daily nystatin (MYCOSTATIN) cream Apply to affected area twice daily. acetaminophen-codeine (TYLENOL-CODEINE #3) 300-30 mg per tablet Take 1 tablet by mouth twice daily as needed for pain for up to 90 days. furosemide (LASIX) 40 mg tablet Take 1 tablet by mouth once daily. lisinopril (ZESTRIL, PRINIVIL) 10 mg tablet Take 1 tablet by mouth once daily. atenolol (TENORMIN) 50 mg tablet Take 50 mg in the AM, 25 mg in the PM furosemide (LASIX) 20 mg tablet Take 1 tablet by mouth once daily. NEEDED oxyCODONE-acetaminophen (PERCOCET) 5-325 mg tablet Take 1 tablet by mouth every 4 hours as needed for pain. for pain. No current facility-administered medications for this visit. Physical Exam Vitals: There were no vitals taken for this visit. Psych: Pleasant, good affect and mood General Appearance: Well appearing, alert, in no acute distress, well-hydrated, well nourished.. Skin: Skin color, texture, turgor normal, no suspicious rashes or lesions. Peripheral Pulses: Normal. Neurologic: Gait normal. Reflexes normal and symmetric. Sensation grossly intact.. Lymph Nodes: No cervical lymphadenopathy, No supraclavicular lymphadenopathy, No axillary lymphadenopathy., and No inguinal lymphadenopathy.. Respiratory: No recent pulmonary infection, hemoptysis, chronic cough, or shortness of breath at rest Rheumatologic: Joint deformities: left shoulder pain Ortho Exam Assessment and Plan Radiographs: I have independently reviewed films and my findings are the same. and I have reviewed the images with the patient and family. MRI SHOULDER WO IVCON LEFT Exam End: 08/22/2022 12:10 PM (Final result) Impression: IMPRESSION: 1. Postoperative changes of rotator cuff tendon repair without evidence of re-tear. Background rotator cuff tendinosis. 2. Mild to moderate glenohumeral and acromioclavicular osteoarthritis, progressed at the glenohumeral joint. 3. Mild subacromial subdeltoid bursitis. Impression: Encounter Diagnosis ICD-10-CM 1. Biceps tendinitis of left upper extremity M75.22 2. Acute pain of left shoulder M25.512 3. Bursitis of left shoulder M75.52 4. Shoulder impingement M25.819 5. Chronic left shoulder pain M25.512 G89.29 6. S/P shoulder surgery Z98.890 7. Adhesive capsulitis of left shoulder M75.02 Today, in detail, through a thorough evaluation, we discussed possible etiologies of pain and our plans for further diagnostic and therapeutic interventions. We discussed strategies for decreasing pain and improving strength, stability and motion. Patient's questions were answered in detailed. Patient verbalizes understanding and agrees with the treatment plan as discussed. Crow pruitt/nathanael mas regarding off of blood thinner message sent Left sourav risks discussed as also has oa and this is not going to help with her oa pain or rom, pt states her biceps is painful with activity and was confirmed with her injection Needs PT day after surgery Risks and benefits vs alternatives to treatment were discussed with patient. Risks including but not limited to blood loss, blood clot, infection, neurovascular injury, failure of procedure, need for revision operation, loss of life and loss of limb. Patient aware of risks and benefits and agrees to proceed with written consent for surgical intervention. Lisette Banks D.O. M.P.H. documented in this encounter [facility] 11-09-2022 Miscellaneous Notes [facility] Anticoagulation Episode Summary Anticoagulation Care Providers Provider Role Specialty Phone number Milka Mas MD Family Medicine [phone] Morena Martinez is a 57 year old year old female patient being evaluated today for a Telemanagement visit. Patient is currently on the following anticoagulant(s) Warfarin. Labs PT INR (no units) Date Value 07/28/2022 2.7 (pt reported) 03/20/2022 2.7 01/23/2022 2.9 INR Home CoaguChek (no units) Date Value 11/09/2022 2.2 10/27/2022 2.1 10/13/2022 2.0 Hemoglobin (g/dL) Date Value 04/09/2021 15.2 Hematocrit (%) Date Value 04/09/2021 46.7 Platelet Count (k/uL) Date Value 04/09/2021 299 Creatinine (mg/dL) Date Value 06/27/2022 0.65 01/12/2022 0.74 07/01/2021 0.76 03/23/2021 0.60 12/07/2020 0.62 04/01/2020 0.70 Bilirubin, Total (mg/dL) Date Value 06/27/2022 0.6 12/07/2020 0.6 ALT (U/L) Date Value 06/27/2022 19 12/07/2020 33 AST (U/L) Date Value 06/27/2022 23 12/07/2020 35 CrCl cannot be calculated (Unknown ideal weight.). 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: [facility]PC (current) use of anticoagulants Embolism and thrombosis (hcc) Anticoagulation Episode Summary Current INR goal: 2.0-3.0 Assessment: INR result of 2.2 is therapeutic Plan: Current Warfarin Dosing As of 11/09/2022 Full warfarin instructions: 5 mg every Sun, Blaire; 7.5 mg all other days Called and spoke to patient/caregiver Advised patient to continue current weekly dose as noted above Next home INR check scheduled on 11/23/2022 Patient verbalizes understanding of the plan. Patient denies need for refills. Dori Pepper RPh Clinical Pharmacist, [facility] Pharm[facility] Pager: [phone]. documented in this encounter [facility] 10-28-2022 History of Presen t illness Narrative Associated Order(s): Additional Injections: L bicep tendon sheath Post-Procedure Diagnose(s): Biceps tendinitis of left upper extremity Images from the original note were not included. REFERRING PROVIDER: Patient seen at the request of Lisette Banks DO for left shoulder/Bicep. A copy of this office note was sent electronically to referring provider. CHIEF COMPLAINT: Patient presents with: Left Shoulder - Injections: Left bicep PAIN EVALUATION 10/21/2022 1006 10/28/2022 1106 Pain Level: -- 0 Pain Location: Arm-Upper Left -- Description: Dull;Pressure;Shooting;Stiffness -- Duration Units: Hours -- Frequency: Continuous -- Intervention/Comfort measure: Medication -- SUBJECTIVE: Morena Martinez is a 57 year old female here for consideration of corticosteroid injection into R biceps tendon sheath. Briefly, patient complains of pain in anterior shoulder associated with pop and pain. She cannot lift her arm past a certain point. Last Hgba1c: Hemoglobin A1C (%) Date Value 06/27/2022 6.6 01/12/2022 6.3 03/23/2021 6.9 12/07/2020 7.2 Past medical, surgical, social and family history were reviewed. Allergies and current medications reviewed. REVIEW OF SYSTEMS: GENERAL: no recent illness, unexplained weight loss or weight gain NEUROLOGIC: no numbness, tingling, or weakness except as mentioned in HPI, no known neuro problems or deficits SKIN: No rash or new skin changes and no chronic skin problems MSK: as mentioned in HPI PHYSICAL EXAMINATION: GENERAL APPEARANCE: Well appearing, in no acute distress, alert and oriented x3. L shoulder cool to the touch without significant effusion. Skin is intact without sign of overlying rash or infection. Patient remains distally neurovascularly intact at baseline. IMAGING: Last MRI Shoulder - Impression Only MRI SHOULDER WO IVCON LEFT Exam End: 08/22/2022 12:10 PM (Final result) Impression: IMPRESSION: 1. Postoperative changes of rotator cuff tendon repair without evidence of re-tear. Background rotator cuff tendinosis. 2. Mild to moderate glenohumeral and acromioclavicular osteoarthritis, progressed at the glenohumeral joint. 3. Mild subacromial subdeltoid bursitis. ... CLINICAL IMPRESSION: (M75.22) Biceps tendinitis of left upper extremity (primary encounter diagnosis) PLAN: Today, in detail, through a thorough evaluation, we discussed possible etiologies of pain and our plans for further diagnostic and therapeutic interventions. We discussed strategies for decreasing pain and improving strength, stability and motion. Patient's questions were answered in detailed. Patient verbalizes understanding and agrees with the treatment plan as discussed. In addition to the comprehensive evaluation as outlined above and as a separate element to the visit today, we have made the determination to proceed with an injection to aid in the treatment of the patient's condition. We discussed risks, benefits, alternatives and expected outcomes of this injection in detail and the patient agreed to proceed. The procedure was performed as detailed below. Additional Injections: L bicep tendon sheath for biceps tendonitis Informed Consent Consent Obtained: Verbal [place] Protocol A moment to CARE was completed. SIGN IN Personnel directly involved with the procedure wore the appropriate PPE. Patient/Surrogate Stated/Verified: Patient name, Date of , Relevant allergies and Intended procedure TIME OUT Consent documented and matches the intended procedure. Relevant labs, photos, and/or imaging studies have been reviewed. Correct side/site marked and visible. Medications required for procedure verified. 10/28/2022 11:31 AM The procedure site was prepped in the usual sterile fashion. Site: L bicep tendon sheath Details:Musculoskeletal ultrasound was utilized to successfully localize placement of the injection needle at the appropriate site. Ultrasound images demonstrating local vasculature and demonstrating injection of solution were saved. Medications: 40 mg triamcinolone acetonide 40 mg/mL Anesthetics: 1 mL lidocaine (PF) 10 mg/mL (1 %) Outcome: tolerated well, no immediate complications Post-injection instructions were reviewed with the patient and the patient voiced understanding of these instructions. Follow-up: 3 weeks with referring provider Written instructions (see patient instructions) and verbal health teaching given to patient, patient verbalizes understanding and agrees with treatment plan. Electronically Signed: Katharine Paul MD Sports Medicine Physician documented in this encounter [facility] 10-19-2022 Miscellaneous Notes The following approved medication requests have been transmitted electronically. Requested Prescriptions Pending Prescriptions Disp Refills SITagliptin phosphate (JANUVIA) 100 mg tablet 30 tablet 11 Sig: Take 1 tablet by mouth once daily. Byron Jolley APRN.JOHN Patient has been identified by name and date of : Yes Requested Prescriptions Pending Prescriptions Disp Refills SITagliptin phosphate (JANUVIA) 100 mg tablet 30 tablet 11 Sig: Take 1 tablet by mouth once daily. RX INSTRUCTIONS: Patient aware RX will be sent to pharmacy. No need to notify patient. JEROME 07/19/22 01/30/23 scheduled Britney Garcia LPN documented in this encounter [facility] 10-13-2022 Miscellaneous Notes [facility] Anticoagulation Episode Summary Anticoagulation Care Providers Provider Role Specialty Phone number Milka Mas MD Family Medicine [phone] Morena Martinez is a 57 year old year old female patient being evaluated today for a Telemanagement visit. Patient is currently on the following anticoagulant(s) Warfarin. Labs PT INR (no units) Date Value 07/28/2022 2.7 (pt reported) 03/20/2022 2.7 01/23/2022 2.9 INR Home CoaguChek (no units) Date Value 10/13/2022 2.0 10/06/2022 3.4 09/28/2022 3.8 Hemoglobin (g/dL) Date Value 04/09/2021 15.2 Hematocrit (%) Date Value 04/09/2021 46.7 Platelet Count (k/uL) Date Value 04/09/2021 299 Creatinine (mg/dL) Date Value 06/27/2022 0.65 01/12/2022 0.74 07/01/2021 0.76 03/23/2021 0.60 12/07/2020 0.62 04/01/2020 0.70 Bilirubin, Total (mg/dL) Date Value 06/27/2022 0.6 12/07/2020 0.6 ALT (U/L) Date Value 06/27/2022 19 12/07/2020 33 AST (U/L) Date Value 06/27/2022 23 12/07/2020 35 Estimated Creatinine Clearance: 148.6 mL/min (based on SCr of 0.65 mg/dL). 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 documented in this encounter [facility] 10-06-2022 Miscellaneous Notes [facility] Anticoagulation Episode Summary Anticoagulation Care Providers Provider Role Specialty Phone number Milka Mas MD Family Medicine [phone] Morena Martinez is a 57 year old year old female patient being evaluated today for a Telemanagement visit. Patient is currently on the following anticoagulant(s) Warfarin. Labs PT INR (no units) Date Value 07/28/2022 2.7 (pt reported) 03/20/2022 2.7 01/23/2022 2.9 INR Home CoaguChek (no units) Date Value 10/06/2022 3.4 09/28/2022 3.8 09/13/2022 2.7 Hemoglobin (g/dL) Date Value 04/09/2021 15.2 Hematocrit (%) Date Value 04/09/2021 46.7 Platelet Count (k/uL) Date Value 04/09/2021 299 Creatinine (mg/dL) Date Value 06/27/2022 0.65 01/12/2022 0.74 07/01/2021 0.76 03/23/2021 0.60 12/07/2020 0.62 04/01/2020 0.70 Bilirubin, Total (mg/dL) Date Value 06/27/2022 0.6 12/07/2020 0.6 ALT (U/L) Date Value 06/27/2022 19 12/07/2020 33 AST (U/L) Date Value 06/27/2022 23 12/07/2020 35 Estimated Creatinine Clearance: 148.6 mL/min (based on SCr of 0.65 mg/dL). 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 Plan: Current Warfarin Dosing As of 10/06/2022 Full warfarin instructions: 5 mg every Sun, Blaire; 7.5 mg all other days Called and spoke to patient/caregiver Advised patient to decrease total weekly regimen Next home INR check scheduled on 10/13/2022 Patient verbalizes understanding of the plan. Patient denies need for refills. Jamee Hdz RPh Clinical Pharmacist, Pharmacy Anticoagulation Clinic Pharmacy Anticoagulation [facility] Pager: [phone]. documented in this encounter [facility] 09-29-2022 Miscellaneous Notes The following approved medication requests have been transmitted electronically. Requested Prescriptions Pending Prescriptions Disp Refills gabapentin (NEURONTIN) 300 mg capsule 90 capsule 1 Sig: Take 1 capsule by mouth daily at bedtime for 180 days. Byron Jolley APRN.CNP Jerome--07/19/22 Nov--01/30/23 Last refill--03/122 90 with 1 refill Last labs--06/27/22 documented in this encounter [facility] 09-29-2022 Miscellaneous Notes The following approved medication requests have been transmitted electronically. Requested Prescriptions Pending Prescriptions Disp Refills warfarin (COUMADIN) 5 mg tablet 129 tablet 4 Si.5 mg daily Byron Jolley APRN.CNP Jerome--07/19/22 Nov--01/30/23 Last refill--10/04/21 129 with 4 refills Last labs--09/03/22 documented in this encounter [facility] 09-28-2022 Miscellaneous Notes [facility] Ambulatory Pharmacy Anticoagulation Clinic Anticoagulation Episode Summary Anticoagulation Care Providers Provider Role Specialty Phone number Milka Mas MD Family Medicine [phone] Morena Martinez is a 57 year old year old female patient being evaluated today for a Telemanagement visit. Patient is currently on the following anticoagulant(s) Warfarin. Labs PT INR (no units) Date Value 07/28/2022 2.7 (pt reported) 03/20/2022 2.7 01/23/2022 2.9 INR Home CoaguChek (no units) Date Value 09/28/2022 3.8 09/13/2022 2.7 08/29/2022 2.6 Hemoglobin (g/dL) Date Value 04/09/2021 15.2 Hematocrit (%) Date Value 04/09/2021 46.7 Platelet Count (k/uL) Date Value 04/09/2021 299 Creatinine (mg/dL) Date Value 06/27/2022 0.65 01/12/2022 0.74 07/01/2021 0.76 03/23/2021 0.60 12/07/2020 0.62 04/01/2020 0.70 Bilirubin, Total (mg/dL) Date Value 06/27/2022 0.6 12/07/2020 0.6 ALT (U/L) Date Value 06/27/2022 19 12/07/2020 33 AST (U/L) Date Value 06/27/2022 23 12/07/2020 35 Estimated Creatinine Clearance: 148.6 mL/min (based on SCr of 0.65 mg/dL). 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: Anticoagulation Episode Summary Current INR goal: 2.0-3.0 Assessment: INR result of 3.8 is SUPRAtherapeutic due to: Decreased vitamin k intake She said has had more bruises than usually. And some blood when she blows her nose. Plan: Current Warfarin Dosing As of 09/13/2022 Full warfarin instructions: 7.5 mg every day Called and spoke to patient/caregiver Advised patient to hold 1 dose then continue current regimen Next home INR check scheduled on 10/12/22 but she may test a week sooner. Patient verbalizes understanding of the plan. Patient denies need for refills. Dori Pepper RPh Clinical Pharmacist, Pharmacy Anticoagulation Clinic Pharmacy Anticoagulation Clinic Pager: [phone]. documented in this encounter [facility] 08-31-2022 History of Presen t illness Narrative Images from the original note were not included. Follow Up Visit Chief Complaint Morena Martinez is a 57 year old female who presents today for follow up office visit. Patient presents with: Left Shoulder - Follow Up, Pain History of Present Illness PAIN EVALUATION 08/31/2022 1418 Pain Level: 2 Pain Location: Shoulder-Left Description: Dull;Aching;Sharp;Stabbing Duration Amount of Time: -- ongoing Frequency: Intermittent HPI: Morena Martinez is a 57 year old female for a follow up visit left shoulder pain. Patient is here to discuss MRI results. No change in pain. Pain history is noted as above. Pain started after being on levaquin, pain to arm/ biceps area. Mri done to evaluate her rotator cuff repair and determine next steps. Is there any overall improvement in your condition? No Any new injury, since being seen last: No REVIEW OF SYMPTOMS: Patient did not have, and does not currently have, any weight loss, malaise, fever, chills, headache, chest pain, chest pressure, palpitations, cough, shortness of breath, orthopnea, paroxsymal nocturnal dyspnea, nausea, vomiting, diarrhea, constipation, melena, hematochezia, urinary difficulties, prolonged bleeding, easily bruising, heat or cold intolerance, new onset joint pain or swelling, new onset extremity weakness or numbness, new onset auditory or visual disturbances, lightheadedness, dizziness, partial loss of consciousness or full loss of consciousness. Current Outpatient Medications Medication Sig nystatin (MYCOSTATIN) cream Apply to affected area twice daily. acetaminophen-codeine (TYLENOL-CODEINE #3) 300-30 mg per tablet Take 1 tablet by mouth twice daily as needed for pain for up to 90 days. oxyCODONE-acetaminophen (PERCOCET) 5-325 mg tablet Take 1 tablet by mouth every 4 hours as needed for pain. for pain. tiZANidine (ZANAFLEX) 4 mg tablet Take 1 tablet by mouth every 6 hours as needed. furosemide (LASIX) 40 mg tablet Take 1 tablet by mouth once daily. gabapentin (NEURONTIN) 300 mg capsule Take 1 capsule by mouth daily at bedtime for 180 days. lisinopril (ZESTRIL, PRINIVIL) 10 mg tablet Take 1 tablet by mouth once daily. atenolol (TENORMIN) 50 mg tablet Take 50 mg in the AM, 25 mg in the PM JANUVIA 100 mg tablet Take 1 tablet by mouth once daily. warfarin (COUMADIN) 5 mg tablet 7.5 mg daily furosemide (LASIX) 20 mg tablet Take 1 tablet by mouth once daily. NEEDED No current facility-administered medications for this visit. Physical Exam Vitals: There were no vitals taken for this visit. Psych: Pleasant, good affect and mood General Appearance: Well appearing, alert, in no acute distress, well-hydrated, well nourished.. Skin: Skin color, texture, turgor normal, no suspicious rashes or lesions. Peripheral Pulses: Normal. Neurologic: Gait normal. Reflexes normal and symmetric. Sensation grossly intact.. Lymph Nodes: No cervical lymphadenopathy, No supraclavicular lymphadenopathy, No axillary lymphadenopathy., and No inguinal lymphadenopathy.. Respiratory: No recent pulmonary infection, hemoptysis, chronic cough, or shortness of breath at rest Rheumatologic: Joint deformities: left shoulder Right Shoulder Exam Right shoulder exam is normal. Tenderness The patient is experiencing no tenderness. Range of Motion Active abduction: normal Passive abduction: normal Extension: normal External rotation: normal Forward flexion: normal Internal rotation 0 degrees: normal Internal rotation 90 degrees: normal Muscle Strength Abduction: 5/5 Internal rotation: 5/5 External rotation: 5/5 Supraspinatus: 5/5 Subscapularis: 5/5 Biceps: 5/5 Tests Apprehension: negative Harkins test: negative Cross arm: negative Impingement: negative Other Erythema: absent Sensation: normal Pulse: present Comments: B/l med, uln, rad, ax nerves intact Left Shoulder Exam Range of Motion Active abduction: abnormal Passive abduction: abnormal Extension: abnormal External rotation: abnormal Forward flexion: abnormal Internal rotation 0 degrees: abnormal Internal rotation 90 degrees: abnormal Muscle Strength Abduction: 4/5 Internal rotation: 4/5 External rotation: 4/5 Supraspinatus: 4/5 Subscapularis: 4/5 Biceps: 4/5 Tests Apprehension: negative Harkins test: positive Cross arm: negative Impingement: positive Other Erythema: absent Sensation: normal Pulse: present Comments: Pos jemima mcmahan Assessment and Plan Radiographs: I have independently reviewed films and my findings are the same. and I have reviewed the images with the patient and family. Last MRI Shoulder - Impression Only MRI SHOULDER WO IVCON LEFT Exam End: 08/22/2022 12:10 PM (Final result) Impression: IMPRESSION: 1. Postoperative changes of rotator cuff tendon repair without evidence of re-tear. Background rotator cuff tendinosis. 2. Mild to moderate glenohumeral and acromioclavicular osteoarthritis, progressed at the glenohumeral joint. 3. Mild subacromial subdeltoid bursitis. ... Impression: Encounter Diagnosis ICD-10-CM 1. Acute pain of left shoulder M25.512 2. Bursitis of left shoulder M75.52 3. Biceps tendinitis of left upper extremity M75.22 Today, in detail, through a thorough evaluation, we discussed possible etiologies of pain and our plans for further diagnostic and therapeutic interventions. We discussed strategies for decreasing pain and improving strength, stability and motion. Patient's questions were answered in detailed. Patient verbalizes understanding and agrees with the treatment plan as discussed. Us guided biceps injection by sports partner Reviewed intraop findings, no biceps pathology at index time of surgery, so may be new and will see if biceps injection is therapeutic/diagnostic as well May need biceps eval intraop if this fails, patient will see me about 2-4 weeks after biceps injection to see what next steps are Patient aware and in agreement of plan. All questions answered. documented in this encounter [facility] 08-30-2022 Miscellaneous Notes [facility] Ambulatory Pharmacy Anticoagulation Clinic Anticoagulation Episode Summary Anticoagulation Care Providers Provider Role Specialty Phone number Milka Mas MD Family Medicine [phone] Morena Martinez is a 57 year old year old female patient being evaluated today for a Telemanagement visit. Patient is currently on the following anticoagulant(s) Warfarin. Labs PT INR (no units) Date Value 07/28/2022 2.7 (pt reported) 03/20/2022 2.7 01/23/2022 2.9 INR Home CoaguChek (no units) Date Value 08/29/2022 2.6 08/11/2022 2.7 07/28/2022 2.7 Hemoglobin (g/dL) Date Value 04/09/2021 15.2 Hematocrit (%) Date Value 04/09/2021 46.7 Platelet Count (k/uL) Date Value 04/09/2021 299 Creatinine (mg/dL) Date Value 06/27/2022 0.65 01/12/2022 0.74 07/01/2021 0.76 03/23/2021 0.60 12/07/2020 0.62 04/01/2020 0.70 Bilirubin, Total (mg/dL) Date Value 06/27/2022 0.6 12/07/2020 0.6 ALT (U/L) Date Value 06/27/2022 19 12/07/2020 33 AST (U/L) Date Value 06/27/2022 23 12/07/2020 35 Estimated Creatinine Clearance: 148.6 mL/min (based on SCr of 0.65 mg/dL). 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: Anticoagulation Episode Summary Current INR goal: 2.0-3.0 Assessment: INR result of 2.6 is therapeutic Plan: Current Warfarin Dosing As of 08/30/2022 Full warfarin instructions: 7.5 mg every day Sent mychart message Advised patient to continue current weekly dose as noted above Next home INR check scheduled on 09/13/2022 Jovanny Peralta RPh Clinical Pharmacist, Pharmacy Anticoagulation Clinic Pharmacy Anticoagulation Clinic Pager: [phone]. documented in this encounter [facility] 08-25-2022 Miscellaneous Notes The following approved medication requests have been transmitted electronically. Requested Prescriptions Signed Prescriptions Disp Refills nystatin (MYCOSTATIN) cream 30 g 2 Sig: Apply to affected area twice daily. acetaminophen-codeine (TYLENOL-CODEINE #3) 300-30 mg per tablet 60 tablet 2 Sig: Take 1 tablet by mouth twice daily as needed for pain for up to 90 days. Pinky Dawkins Ma OK to refill as ordered Milka Mas MD Last Rx's: Tylenol - 05/16/22 #60 w/2. Nystatin - #30 g w/2 refills. documented in this encounter [facility] 08-22-2022 History of Presen t illness Narrative Radiology Service Progress Note PATIENT NAME: Morena Martinez DATE OF SERVICE: August 22, 2022 TIME: 11:48 AM PATIENT IDENTITY VERIFICATION COMPLETED USING TWO (2) IDENTIFIERS: Name and Date of confirmed by patient verbally. FALL SCREENING: Has the patient had 2 falls in the last year or 1 fall with injury or currently using an Ambulatory Assistive Device (Walker, Cane, Wheelchair, Crutches, etc.)? No PATIENT GENDER DATA: Female. status: : No status: NO. PATIENT RELEVANT IMPLANT DATA REVIEWED: Yes RADIOLOGY DEPARTMENT: MR; Exam(s) Completed: Upper MSK: Shoulder, left PERIPHERAL IV DATA: Not applicable SIGNED BY: RT Ren(R) August 22, 2022 11:48 AM documented in this encounter [facility] 08-11-2022 Miscellaneous Notes [facility] Ambulatory Pharmacy Anticoagulation Clinic Anticoagulation Episode Summary Anticoagulation Care Providers Provider Role Specialty Phone number Milka Mas MD Family Medicine [phone] Morena Martinez is a 57 year old year old female patient being evaluated today for a Telemanagement visit. Patient is currently on the following anticoagulant(s) Warfarin. Labs PT INR (no units) Date Value 07/28/2022 2.7 (pt reported) 03/20/2022 2.7 01/23/2022 2.9 INR Home CoaguChek (no units) Date Value 08/11/2022 2.7 07/28/2022 2.7 07/25/2022 2.3 Hemoglobin (g/dL) Date Value 04/09/2021 15.2 Hematocrit (%) Date Value 04/09/2021 46.7 Platelet Count (k/uL) Date Value 04/09/2021 299 Creatinine (mg/dL) Date Value 06/27/2022 0.65 01/12/2022 0.74 07/01/2021 0.76 03/23/2021 0.60 12/07/2020 0.62 04/01/2020 0.70 Bilirubin, Total (mg/dL) Date Value 06/27/2022 0.6 12/07/2020 0.6 ALT (U/L) Date Value 06/27/2022 19 12/07/2020 33 AST (U/L) Date Value 06/27/2022 23 12/07/2020 35 Estimated Creatinine Clearance: 148.6 mL/min (based on SCr of 0.65 mg/dL). 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: FPC (current) use of anticoagulants Embolism and thrombosis (hcc) Anticoagulation Episode Summary Current INR goal: 2.0-3.0 Assessment: INR result of 2.7 is therapeutic Plan: Current Warfarin Dosing As of 08/11/2022 Full warfarin instructions: 7.5 mg every day Sent NOBOT message Advised patient to continue current weekly dose as noted above Next home INR check scheduled on 08/25/2022 Crystal Field RPh Clinical Pharmacist, Pharmacy Anticoagulation Clinic Pharmacy Anticoagulation Clinic Pager: [phone]. Pt was due to test INR today. No result received. Will continue to monitor for result. Crystal Field RPh.' documented in this encounter [facility] 07-29-2022 Miscellaneous Notes Radiology Service Progress Note PATIENT NAME: Morena Martinez DATE OF SERVICE: July 29, 2022 TIME: 12:41 PM PATIENT IDENTITY VERIFICATION COMPLETED USING TWO (2) IDENTIFIERS: Name and Date of confirmed by patient verbally and Name and Date of confirmed by identification band. FALL SCREENING: Has the patient had 2 falls in the last year or 1 fall with injury or currently using an Ambulatory Assistive Device (Walker, Cane, Wheelchair, Crutches, etc.)? No PATIENT GENDER DATA: Female. status: : No status: NO. PATIENT RELEVANT IMPLANT DATA REVIEWED: Not Applicable RADIOLOGY DEPARTMENT: General X-ray: Exam(s) Completed: Upper Extremity X-Ray(s): Shoulder, AP / TRUE AP / AXILLARY / SUPRA OUTLET left PERIPHERAL IV DATA: Not applicable SIGNED BY: RT Marlena(R) July 29, 2022 12:41 PM documented in this encounter [facility] 07-29-2022 Progress note Formatting of t his note might be different from the original. Radiology Service Progress Note PATIENT NAME: Morena Martinez DATE OF SERVICE: July 29, 2022 TIME: 12:41 PM PATIENT IDENTITY VERIFICATION COMPLETED USING TWO (2) IDENTIFIERS: Name and Date of confirmed by patient verbally and Name and Date of confirmed by identification band. FALL SCREENING: Has the patient had 2 falls in the last year or 1 fall with injury or currently using an Ambulatory Assistive Device (Walker, Cane, Wheelchair, Crutches, etc.)? No PATIENT GENDER DATA: Female. status: : No status: NO. PATIENT RELEVANT IMPLANT DATA REVIEWED: Not Applicable RADIOLOGY DEPARTMENT: General X-ray: Exam(s) Completed: Upper Extremity X-Ray(s): Shoulder, AP / TRUE AP / AXILLARY / SUPRA OUTLET left PERIPHERAL IV DATA: Not applicable SIGNED BY: RT Marlena(R) July 29, 2022 12:41 PM [facility] 07-28-2022 Miscellaneous Notes [facility] Ambulatory Pharmacy Anticoagulation Clinic Anticoagulation Episode Summary Anticoagulation Care Providers Provider Role Specialty Phone number Milka Mas MD Family Medicine [phone] Morena Martinez is a 57 year old year old female patient being evaluated today for a Telemanagement visit. Patient is currently on the following anticoagulant(s) Warfarin. Labs PT INR (no units) Date Value 07/28/2022 2.7 (pt reported) 03/20/2022 2.7 01/23/2022 2.9 INR Home CoaguChek (no units) Date Value 07/25/2022 2.3 07/07/2022 3.5 06/24/2022 2.6 Hemoglobin (g/dL) Date Value 04/09/2021 15.2 Hematocrit (%) Date Value 04/09/2021 46.7 Platelet Count (k/uL) Date Value 04/09/2021 299 Creatinine (mg/dL) Date Value 06/27/2022 0.65 01/12/2022 0.74 07/01/2021 0.76 03/23/2021 0.60 12/07/2020 0.62 04/01/2020 0.70 Bilirubin, Total (mg/dL) Date Value 06/27/2022 0.6 12/07/2020 0.6 ALT (U/L) Date Value 06/27/2022 19 12/07/2020 33 AST (U/L) Date Value 06/27/2022 23 12/07/2020 35 Estimated Creatinine Clearance: 148.6 mL/min (based on SCr of 0.65 mg/dL). 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 Patient denies need for refills. Jamee Hdz RPh Clinical Pharmacist, Pharmacy Anticoagulation Clinic Pharmacy Anticoagulation Clinic Pager: [phone]. documented in this encounter [facility] 07-26-2022 Miscellaneous Notes [facility] Ambulatory Pharmacy Anticoagulation Clinic Anticoagulation Episode Summary Anticoagulation Care Providers Provider Role Specialty Phone number Milka Mas MD Family Medicine [phone] Morena Martinez is a 57 year old year old female patient being evaluated today for a Telemanagement visit. Patient is currently on the following anticoagulant(s) Warfarin. Labs PT INR (no units) Date Value 03/20/2022 2.7 01/23/2022 2.9 11/30/2021 3.1 biotel INR Home CoaguChek (no units) Date Value 07/25/2022 2.3 07/07/2022 3.5 06/24/2022 2.6 Hemoglobin (g/dL) Date Value 04/09/2021 15.2 Hematocrit (%) Date Value 04/09/2021 46.7 Platelet Count (k/uL) Date Value 04/09/2021 299 Creatinine (mg/dL) Date Value 06/27/2022 0.65 01/12/2022 0.74 07/01/2021 0.76 03/23/2021 0.60 12/07/2020 0.62 04/01/2020 0.70 Bilirubin, Total (mg/dL) Date Value 06/27/2022 0.6 12/07/2020 0.6 ALT (U/L) Date Value 06/27/2022 19 12/07/2020 33 AST (U/L) Date Value 06/27/2022 23 12/07/2020 35 Estimated Creatinine Clearance: 148.6 mL/min (based on SCr of 0.65 mg/dL). 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: Anticoagulation Episode Summary Current INR goal: 2.0-3.0 Assessment: INR result of 2.3 is therapeutic Starting 7 day course of omnicef today/ Plan: Current Warfarin Dosing As of 07/26/2022 Full warfarin instructions: 7.5 mg every day Called and spoke to patient/caregiver Advised patient to continue current weekly dose as noted above Next home INR check scheduled on 07/28/2022 Patient verbalizes understanding of the plan. Jovanny Peralta RPh Clinical Pharmacist, Pharmacy Anticoagulation Clinic Pharmacy Anticoagulation Clinic Pager: [phone]. documented in this encounter [facility] 07-26-2022 History of Presen t illness Narrative CC: Patient presents with: Pain, Throat: Pt reported throat, ear pain x3 days. HPI: Morena Martinez is a 57 year old female who presents to the office with complaint of sore throat and ear symptoms for a few days. Symptoms are worsening Associated symptoms includes ear pain and ear pressure . Denies fever, nausea, vomiting , and diarrhea. Treatments tried include nothing so far. with no relief of symptoms. Sick contacts: unknown. History of asthma, frequent episodes of bronchitis, chronic bronchitis, bronchiectasis or COPD: No Smoker: No Seasonal/environmental allergies: No The ROS is otherwise negative. The patient's pmh, medications, allergies, and past visits are reviewed. PHYSICAL EXAM: BP 144/88 Pulse 75 Temp 36.8 C (98.3 F) (Tympanic) Resp 18 Wt (!) 157.2 kg (346 lb 9.6 oz) SpO2 98% BMI 54.29 kg/m General appearance: alert, cooperative, pleasant, in no acute distress Head: Normocephalic Eyes: EOM's intact, conjunctiva pink and moist, no icterus, sclera white, non-injected Ears: Right ear: External ear/canal- Normal, TM - mild erythema and bulging . Left ear: External ear/canal- Normal, TM - clear with good landmarks Oropharynx:mild erythema, without exudates present Heart: Negative. RRR without obvious murmur, gallop, or rubs. No ectopy. 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 Diffuse cystic mastopathy Diverticulosis of colon (without mention of hemorrhage) Diverticulosis DVT of leg (deep venous thrombosis) (HCC) Right leg Hypertension Irritable bowel syndrome Localized osteoarthrosis not specified whether primary or secondary, other specified sites RT KNEE Migraine, unspecified, with intractable migraine, so stated, without mention of status migrainosus Migraine Obesity, unspecified Osteoarthritis of right knee Other and unspecified disc disorder of unspecified region Intervertebral disc disorders Other disorders of bladder Personal history of colonic polyps 01/21/2015 PMH - PAST MEDICAL HISTORY OF 1989 Pulmonary Embolism PAST SURGICAL HISTORY Procedure Laterality Date ANESTH DIAGNOSTIC ARTHROSCOPIC PROC KNEE JOINT 1994 LT KNEE ANESTH DIAGNOSTIC ARTHROSCOPIC PROC KNEE JOINT 1994 RT KNEE APPENDECTOMY ARTHRODESIS CMC JNT THUMB W/WO FIX Right 02/21/2018 ARTHROSCOPY KNEE DIAGNOSTIC W/WO SYNOVIAL BX SPX 2007 Right knee ARTHRP KNE CONDYLE&PLATU MEDIAL&LAT COMPARTMENTS Right 06/27/2011 CHOLECYSTECTOMY 1979' Cholecystectomy COLONOSCOPY FLX DX W/COLLJ SPEC WHEN PFRMD 01/21/2015 Repeat 2024 I/D PERIANAL ABSCESS, SUPERFICIAL 08/31/2011 LIG/TRNSXJ FLP TUBE ABDL/VAG APPR UNI/BI REDUCTION OF LARGE BREAST Breast reduction REPAIR ANAL FISTULA W/NICHELLE 12/09/2011 REPAIR OF SHOULDER Left 08/2021 Dr Banks RPR UMBILICAL HRNA 5 YRS/> REDUCIBLE Hernia repair, umbilical >5yr, x2 with mesh TOTAL ABDOMINAL HYSTERECT W/WO RMVL TUBE OVARY Hysterectomy, ARIELLE TX ECTOPIC W/O SALPING&/OOPHORECTOMY Ectopic ALLERGIES Levaquin [Levofloxacin], Augmentin [Amoxicillin-Pot Clavulanate], Bextra [Valdecoxib], Celebrex [Celecoxib], Erythromycin, Latex, Lovenox [Enoxaparin Sodium], Vioxx [Rofecoxib], and Voltaren [Diclofenac Sodium] MEDICATIONS acetaminophen-codeine (TYLENOL-CODEINE #3) 300-30 mg per tablet Take 1 tablet by mouth twice daily as needed for pain for up to 90 days. tiZANidine (ZANAFLEX) 4 mg tablet Take 1 tablet by mouth every 6 hours as needed. furosemide (LASIX) 40 mg tablet Take 1 tablet by mouth once daily. gabapentin (NEURONTIN) 300 mg capsule Take 1 capsule by mouth daily at bedtime for 180 days. lisinopril (ZESTRIL, PRINIVIL) 10 mg tablet Take 1 tablet by mouth once daily. atenolol (TENORMIN) 50 mg tablet Take 50 mg in the AM, 25 mg in the PM JANUVIA 100 mg tablet Take 1 tablet by mouth once daily. warfarin (COUMADIN) 5 mg tablet 7.5 mg daily furosemide (LASIX) 20 mg tablet Take 1 tablet by mouth once daily. NEEDED FAMILY HISTORY Problem Relation Age of Onset Heart Father [place] age 50, sudden Breast Cancer Mother Coronary Artery Disease Brother Quadruple by-pass age 50 Coronary Artery Disease Sister IA late 30's Stroke Sister other (Other) Brother pulmonary embolism other (Other) Sister pulmonary embolism Heart Sister heart attack age 50, stent Diabetes Sister older sister; obese Social History Tobacco Use Smoking status: Former Packs/day: 0.50 Years: 2.00 Pack years: 1.00 Types: Cigarettes Quit date: 05/01/1979 Years since quittin.2 Smokeless tobacco: Never Vaping Use Vaping Use: Never used Substance Use Topics Alcohol use: Not Currently Drug use: No ASSESSMENT/PLAN: 1. Throat pain - ICD9: 784.1, ICD10: R07.0 (primary diagnosis) - STREP A MOLECULAR (POC) - neg 2. Non-recurrent acute suppurative otitis media of right ear without spontaneous rupture of tympanic membrane - ICD9: 382.00, ICD10: H66.001 - CEFDINIR 300 MG CAPSULE Educated to watch for any signs of reaction. Prescription instructions reviewed with patient as applicable. Potential red flag symptoms discussed with the patient. Reviewed appropriate action plan to take if red flag symptoms occur. Patient agreeable to treatment plan. Lisa Reynolds APRN.JOHN documented in this encounter [facility] 07-19-2022 History of Presen t illness Narrative Chief Complaint Patient presents with: F/U 6 Month HPI Morena Martinez is a 57 year old female who presents here today for a 6 month follow up. Pt here today for her routine follow up. Staying busy with life and family. GI/Uro - Denies any bowel, Gi, or urinary issues. Pt has hx of diverticulosis and bladder issues, but nothing unchanged. Lipid: Not taking any medications, trying to watch diet and exercise. She states her diet and activity has not changed. DM: Denies checking BS at home, no hypoglycemic episodes, no neuropathy sx. Taking Januvia 100 mg daily. Anxiety - At previous OV pt noted issues with sleeping, felt it was related to her anxiety at that time. Embolism: Taking coumadin, dosage and INR managed by Pharmacist. HTN: Was previously checking BP at home, but has not in quite some time. Was having some elevated readings at home and Wound Clinic. No chest pains, dizziness, or SOB. Taking Atenolol 50 mg in AM, 25 mg in PM and Lisinopril 20 mg daily. Pain: Taking Zanaflex prn, Flexeril 10 mg prn, Gabapentin 300 mg at bedtime, and Tylenol #3 1 pill BID. Pt has been following with Dr. Banks for numerous issues. Pt having L shoulder pain but states this is more in her upper arm area and not the shoulder. Tried PT and felt this made her pain worse. Pt admits she's been taking more of the Tylenol with Codeine due to increased shoulder/arm pain. Edema: Edward legs; controlled with Lasix 20 mg-40 mg as needed. Was seen acutely in March for a boil in her groin. Treated with Doxycycline 100 mg bid. This has cleared up. Had issues with Levaquin, notes side effect. HM - Has Mamm order in at this time but not able to do this due to shoulder pain. Declines wanting any further Covid vaccines. Past medical history, appointments, medications, allergies reviewed. 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 Diffuse cystic mastopathy Diverticulosis of colon (without mention of hemorrhage) Diverticulosis DVT of leg (deep venous thrombosis) (HCC) Right leg Hypertension Irritable bowel syndrome Localized osteoarthrosis not specified whether primary or secondary, other specified sites RT KNEE Migraine, unspecified, with intractable migraine, so stated, without mention of status migrainosus Migraine Obesity, unspecified Osteoarthritis of right knee Other and unspecified disc disorder of unspecified region Intervertebral disc disorders Other disorders of bladder Personal history of colonic polyps 01/21/2015 PMH - PAST MEDICAL HISTORY OF 1989 Pulmonary Embolism Previous Surgical History PAST SURGICAL HISTORY Procedure Laterality Date ANESTH DIAGNOSTIC ARTHROSCOPIC PROC KNEE JOINT 1994 LT KNEE ANESTH DIAGNOSTIC ARTHROSCOPIC PROC KNEE JOINT 1994 RT KNEE APPENDECTOMY ARTHRODESIS CMC JNT THUMB W/WO FIX Right 02/21/2018 ARTHROSCOPY KNEE DIAGNOSTIC W/WO SYNOVIAL BX SPX 2007 Right knee ARTHRP KNE CONDYLE&PLATU MEDIAL&LAT COMPARTMENTS Right 06/27/2011 CHOLECYSTECTOMY 1979' Cholecystectomy COLONOSCOPY FLX DX W/COLLJ SPEC WHEN PFRMD 01/21/2015 Repeat 2024 I/D PERIANAL ABSCESS, SUPERFICIAL 08/31/2011 LIG/TRNSXJ FLP TUBE ABDL/VAG APPR UNI/BI REDUCTION OF LARGE BREAST Breast reduction REPAIR ANAL FISTULA W/NICHELLE 12/09/2011 REPAIR OF SHOULDER Left 08/2021 Dr Banks RPR UMBILICAL HRNA 5 YRS/> REDUCIBLE Hernia repair, umbilical >5yr, x2 with mesh TOTAL ABDOMINAL HYSTERECT W/WO RMVL TUBE OVARY Hysterectomy, ARIELLE [place] ECTOPIC W/O SALPING&/OOPHORECTOMY Ectopic Family History FAMILY HISTORY Problem Relation Age of Onset Heart Father [place] age 50, sudden Breast Cancer Mother Coronary Artery Disease Brother Quadruple by-pass age 50 Coronary Artery Disease Sister IA late 30's Stroke Sister other (Other) Brother pulmonary embolism other (Other) Sister pulmonary embolism Heart Sister heart attack age 50, stent Diabetes Sister older sister; obese Patient Allergies ALLERGIES Allergen Reactions Augmentin [Amoxicil* Other: See Comments Adverse effect, developed yeast infection Bextra [Valdecoxib] Swelling Ankle swelling Celebrex [Celecoxib] Swelling ankle swelling Erythromycin Rash Latex Lovenox [Enoxaparin* Rash Vioxx [Rofecoxib] Swelling ankle swelling Voltaren [Diclofena* Swelling ankle swelling Current Medications Current Outpatient Medications on File Prior to Visit Medication Sig acetaminophen-codeine (TYLENOL-CODEINE #3) 300-30 mg per tablet Take 1 tablet by mouth twice daily as needed for pain for up to 90 days. tiZANidine (ZANAFLEX) 4 mg tablet Take 1 tablet by mouth every 6 hours as needed. furosemide (LASIX) 40 mg tablet Take 1 tablet by mouth once daily. clindamycin (CLEOCIN) 300 mg capsule Take 1 capsule by mouth four times daily. (Patient not taking: Reported on 06/09/2022) nystatin (MYCOSTATIN) 100,000 unit/mL suspension Take 5 mL by mouth four times daily. 1tsp swish in mouth for several minutes, then swallow (or expectorate) 4 times daily until gone. gabapentin (NEURONTIN) 300 mg capsule Take 1 capsule by mouth daily at bedtime for 180 days. fluticasone (FLONASE) 50 mcg/actuation nasal spray Use 2 Sprays in each nostril once daily. Rinse mouth after use. lisinopril (ZESTRIL, PRINIVIL) 10 mg tablet Take 1 tablet by mouth once daily. atenolol (TENORMIN) 50 mg tablet Take 50 mg in the AM, 25 mg in the PM JANUVIA 100 mg tablet Take 1 tablet by mouth once daily. warfarin (COUMADIN) 5 mg tablet 7.5 mg daily nystatin (MYCOSTATIN) cream Apply to affected area twice daily. cyclobenzaprine (FLEXERIL) 10 mg tablet Take 1 tablet by mouth every 8 hours as needed for muscle spasm. for pain or spasms. furosemide (LASIX) 20 mg tablet Take 1 tablet by mouth once daily. NEEDED No current facility-administered medications on file prior to visit. Social History Social History Tobacco Use Smoking status: Former Packs/day: 0.50 Years: 2.00 Pack years: 1.00 Types: Cigarettes Quit date: 05/01/1979 Years since quittin.2 Smokeless tobacco: Never Vaping Use Vaping Use: Never used Substance Use Topics Alcohol use: Not Currently Drug use: No EXAM: BP 136/84 (BP Site: Right Arm, BP Position: Sitting, BP Cuff Size: Regular Adult) Pulse 60 Resp 16 Wt (!) 156.9 kg (346 lb) BMI 54.19 kg/m General Appearance: Well appearing, alert, in no acute distress, well-hydrated, well nourished and Obese. Lungs: Lungs clear to auscultation. No wheezing, rhonchi, rales.. Heart: RRR without murmur, gallop, or rubs. No ectopy. Health Maintenance List HEPATITIS B(1 of 3 - 3-dose series) Never done DTAP,TDAP,TD(1 - Tdap) Never done SHINGRIX VACCINE(1 of 2) Never done COVID-19 VACCINE(3 - Booster for Pfizer series) due on 10/01/2020 BP CONTROLLED (<130/80) due on 09/29/2021 MAMMOGRAM due on 11/30/2021 DIABETIC FOOT EXAM due on 04/09/2022 PNEUMOCOCCAL(2 - PCV) due on 04/09/2022 DEPRESSION ASSESSMENT due on 05/01/2022 HBA1C due on 12/25/2022 ANNUAL PCP TEAM CHRONIC DISEASE VISIT due on 03/21/2023 DILATED RETINAL EXAM due on 04/15/2023 URINE ALBUMIN:CREATININE RATIO due on 06/27/2023 LDL CHOLESTEROL due on 06/27/2023 COLORECTAL CANCER SCREENING due on 01/21/2025 INFLUENZA Completed HEPATITIS C SCREENING Completed PAP TESTING Discontinued HPV TESTING Discontinued HIV SCREENING Discontinued Data reviewed Results Only on 07/07/2022 Component Date Value INR Home CoaguChek 07/07/2022 3.5 (A) Appointment on 06/27/2022 Component Date Value Cholesterol, Total 06/27/2022 172 Triglyceride 06/27/2022 116 HDL Cholesterol 06/27/2022 48 Non HDL Cholesterol 06/27/2022 124 Fasting Time 06/27/2022 13 VLDL Cholesterol 06/27/2022 23 TC:HDL Ratio 06/27/2022 3.58 LDL Cholesterol 06/27/2022 101 (A) LDL:HDL Ratio 06/27/2022 2.10 Protein, Total 06/27/2022 7.0 Albumin 06/27/2022 4.0 Calcium, Total 06/27/2022 9.3 Bilirubin, Total 06/27/2022 0.6 Alkaline Phosphatase 06/27/2022 63 AST 06/27/2022 23 ALT 06/27/2022 19 Glucose 06/27/2022 143 (A) BUN 06/27/2022 13 Creatinine 06/27/2022 0.65 Sodium 06/27/2022 140 Potassium 06/27/2022 4.6 Chloride 06/27/2022 104 CO2 06/27/2022 24 Anion Gap 06/27/2022 12 Estimated Glomerular Jeffry* 06/27/2022 102 Hemoglobin A1C 06/27/2022 6.6 (A) Estimated Average Glucose 06/27/2022 143 Creatinine, Ur Random (U* 06/27/2022 169.8 Albumin, Urine Random 06/27/2022 <12.0 Albumin/Creat Ratio 06/27/2022 <7 Results Only on 06/24/2022 Component Date Value INR Home CoaguChek 06/24/2022 2.6 Results Only on 06/08/2022 Component Date Value INR Home CoaguChek 06/08/2022 2.7 Results Only on 05/22/2022 Component Date Value INR Home Coajuan carlosChek 05/22/2022 2.3 ASSESSMENT/PLAN: 1. Chronic midline low back pain without sciatica - ICD9: 724.2, 338.29, ICD10: M54.50, G89.29 (primary diagnosis) - Stable - Continue current medication regimen. 2. Bilateral hip pain - ICD9: 719.45, ICD10: M25.551, M25.552 - Continue current medication regimen prn - CYCLOBENZAPRINE 10 MG TABLET 3. Tendinitis of left shoulder - ICD9: 726.10, ICD10: M77.8 - Cont f/u with Ortho 4. Type 2 diabetes mellitus without complication, without long-term current use of insulin (HCC) - ICD9: 250.00, ICD10: E11.9 - Controlled - Continue current medications - Counseled on healthy diet and regular exercise 5. Essential hypertension, benign - ICD9: 401.1, ICD10: I10 - good control - Continue current medication(s) - Recommended regular aerobic exercise. - Recommend home blood pressure monitoring, to bring results in on next visit - Goal of BP <130/80 6. Mixed hyperlipidemia - ICD9: 272.2, ICD10: E78.2 - good control - Continue watching diet/exercise 7. NELSON (generalized anxiety disorder) - ICD9: 300.02, ICD10: F41.1 - Stable 8. Embolism and thrombosis (HCC) - ICD9: 453.9, ICD10: I74.9 - Continue current medication regimen. 9. Skin irritation - ICD9: 709.9, ICD10: R23.8 - Continue current medication regimen. 6 mo f/u with labs. I agree with the Chief Complaint, ROS, and Past Histories independently gathered by the clinical ground support equipment mechanic and the remaining scribed note accurately describes my personal service to the patient. Medical Decision Making: Problems: Moderate: 2+ stable chronic illnesses Data: Unique test result(s) reviewed: 2 Unique test(s) ordered: 2 Risk: Moderate: Drug management Medical Decision Making Level: 4 - Moderate Milka Mas MD The documentation for this note was completed by Catrachito Serna Ma acting as scribe for Milka Mas MD. July 19, 2022 11:37 AM. Catrachito Serna Ma documented in this encounter [facility] 07-15-2022 Discharge summary Note Date/Time July 15, 2022 10:58am [facility] Physical Therapy [facility] [address] [place] [address] / REHABILITATION SERVICES DISCHARGE SUMMARY MR#: [id number] Acct: [id number] Name: MORENA MARTINEZ Rep #: [id number] : 1965 57 From: Jaleel Badillo DPT, OCS, CSCS Referring Dr.: Dr. Lisette Banks DO S tatus: REG RCR Insurance: [employer] PPO SELF PAY INSURANCE It has been my pleasure to treat MORENA MARTINEZ referred by Dr. Lisette Banks DO, with the diagnosis of Frozen L shoulder after levaquin for a total of 10 visit(s). Discharge Date: 07/15/22 Please see the following information for a summary of their discharge status. Subjective: Not overly helpful. Sleep is not great, hard to get L arm comfortable. Activities are same as day one. pain L shoulder distal to shoulder 1-01/08. Worse after therapy even in the water. F/u with doctor in July possibly for injection. Doing ROM exercises at home L shoulder Pain Intensity (Out of 10): 2 % Improvement: 10 Objective/Function: 80 flexion and 70 abduction and neutral L ext rotation and PSIS IR all limited by pain. ROM slightly better but pain overall is intolerable and patient goes into spasms as soon as we get to her PROM limit which is similar to aROM L side. frustrated with pain level and losing sleep and difficulty with hobbies./ Will contact doctor to see if she can move up appointment. Goal 1:: Painfree L shoulder at rest and only 4/10 with movement Goal Progress: Not Progressing Goal 2:: Pain 75% improved by patient report Goal Progress: Not Progressing Goal 3:: AROM L shoulder to 130 elevation Goal 4:: resume aDLs including doing hair and sweeping without hesitation. Goal Progress: Not Progressing Goal 5:: quickdash score28 or better Goal Progress: Not Progressing Plan: d/c, pt to contact doctor to move up next step due to lack of progress. Discharge Comments: Pt to return to doctor for next step, will continue home ROMex in meantime. If there are questions or concerns regarding this patient's physical therapy, please feel free to call me at [phone]. Thank you for the referral of thispatient. Sincerely, Jaleel Badillo, DPT, OCS, CSCS Balance/Gait/Functional tests - Balance/Special Test Scores Quick DASH Score: 68.1800 <Electronically signed by Jaleel Badillo DPT, OCS, CSCS> 07/15/22 1058 CC: Dr. Lisette Banks, DO; Dr. Milka Mas MD ~ EBG Signed [facility] Work Phone: [phone]) 269-298503-09-2023 Miscellaneous Notes* Telephone Encounter - Jamee Hdz, [facility] - 07/07/2022 2:27 PM EST [facility] Ambulatory Pharmacy Anticoagulation Clinic Anticoagulation Episode Summary Anticoagulation Care Providers Provider Role Specialty Phone number Milka Mas MD Family Medicine [phone] Morena Martinez is a 57 year old year old female patient being evaluated today for a Telemanagement visit. Patient is currently on the following anticoagulant(s) Warfarin. Labs PT INR (no units) Date Value 03/20/2022 2.7 01/23/2022 2.9 11/30/2021 3.1 biotel INR Home CoaguChek (no units) Date Value 07/07/2022 3.5 06/24/2022 2.6 06/08/2022 2.7 Hemoglobin (g/dL) Date Value 04/09/2021 15.2 Hematocrit (%) Date Value 04/09/2021 46.7 Platelet Count (k/uL) Date Value 04/09/2021 299 Creatinine (mg/dL) Date Value 06/27/2022 0.65 01/12/2022 0.74 07/01/2021 0.76 03/23/2021 0.60 12/07/2020 0.62 04/01/2020 0.70 Bilirubin, Total (mg/dL) Date Value 06/27/2022 0.6 12/07/2020 0.6 ALT (U/L) Date Value 06/27/2022 19 12/07/2020 33 AST (U/L) Date Value 06/27/2022 23 12/07/2020 35 Estimated Creatinine Clearance: 142.7 mL/min (based on SCr of 0.65 mg/dL). ALLERGIES Allergen Reactions Augmentin [Amoxicil* Other: See Comments Adverse effect, developed yeast infection Bextra [Valdecoxib] Swelling Ankle swelling Celebrex [Celecoxib] Swelling ankle swelling Erythromycin Rash Latex Lovenox [Enoxaparin* Rash Vioxx [Rofecoxib] Swelling ankle swelling Voltaren [Diclofena* Swelling ankle swelling Indication for Warfarin: FPC (current) use of anticoagulants Embolism and thrombosis (hcc) Anticoagulation Episode Summary Current INR goal: 2.0-3.0 Assessment: INR result of 3.5 is SUPRAtherapeutic due to: unknown cause - did not speak to patient Plan: Current Warfarin Dosing As of 07/07/2022 Full warfarin instructions: 07/07: 5 mg; Otherwise 7.5 mg every day Left voice message Advised patient to decrease dose for 1 day only then resume weekly regimen Next home INR check scheduled on 07/21/2022 aJmee Hdz [facility] Clinical Pharmacist, Pharmacy Anticoagulation Clinic Pharmacy Anticoagulation Clinic Pager: [phone]. [facility] Progress note Author Anna Murphy [facility] June 29, 2022 10:13am Note Date/Time June 29, 2022 10:1 3am [facility] [address] [place] [id number] Progress Note - Wound Care 06/29/22 1010 MR#: [id number] Acct: [id number] Name: MORENA MARTINEZ Rep #:[id number] : 1965 57 From: Anna Murphy NP [employer] TRUCK LOADER-C PCP: Dr. Milka Mas MD Status:RE G RCR Location: History of Present Illness Date of Service: 06/29/22 Chief Complaint: Follow-up on left groin open wound nonhealing History of Wound: 57-year-old white obese female, develops open sores in her groin mostly in the same spot all the time. She states after a period of time they heal up on their own. She saw Dr. Stapleton general surgeon who discussed with she was not really a good surgical candidate because it would make a huge hole if he was trying to remove it. He feels it might be hidradenitis and had her referred to the wound center. There was no tunneling noted some hyper granulating tissue but she does have 2 open areas and that left groin area. With some erythematous areas around it. Will refer to dermatology to see if she would be a candidate for injections for the hidradenitis if that is possible. In the meantime we will continue seeing her for wound care Progress of Wound: The groin wound is completely healed and skin is normal no sign and I suggested that she does not have hidradenitis at all. Just gets horrible fungal infections that breaks the skin down from moisture. Subjective Subjective Patient was very pleased with outcomes Objective Data Objective Data Patient will be discharged from the wound center and she may follow-up as needed. We suggested for her pendulous abdomen did place a folded pillowcase underneath her abdomen to hold the moisture daily. We also suggested she can use the Zesorb antifungal powder under her abdomen folds to keep the moisture down with a folded pillowcase. Vital Signs: Vital Signs Temp Pulse Resp BP O2 Del Method 96.2 F L 62 16 147/66 H Room Air 06/29/22 09:03 06/29/22 09:03 06/29/22 09:03 06/29/22 09:03 06/29/22 09:03 Oxygen Delivery Method Room Air Weight: 342 lb Body Mass Index (BMI) 53.5 Lab / Micro Data Attestation: I reviewed the patient's lab results. Physical Exam Const oriented x3 General Appearance: cooperative Exam Limitations: no limitations HEENT normocephalic Head and Scalp: normal to inspection Nose: external nose normal General Ear: hearing grossly impaired External Ear: external ears normal Eyes PERRL General Eye: normal appearance of both eyes Neck full ROM Lymph Lymphatic: no lymphadenopathy noted Resp normal respiratory effort Effort and Inspection: able to speak in complete sentences Auscultation: clear to auscultation bilaterally Cardio regular rate and regular rhythm Palpation: normal PMI Rate: regular rate Rhythm: regular rhythm GI Inspection: pannus present and other Other Details: Large pannus with pendulous abdomen Auscultation: normoactive bowel sounds Palpation: soft and no hepatosplenomegaly Extremity General Extremity: normal exam except as noted Skin Wounds: wounds noted Wound Narrative: Left groin open wounds and erythematous area noted to real depth tunneling between the 2 adjacent to each other. Neuro oriented x3 Psych Appearance: grossly normal Speech: normal speech Thought Content: normal thought content Judgement: judgement good Debridement Note Debridement Note No debridement was completed: No debridement was completed today Post-Debridement Measurements and Additional Note: Post-Debridement Measurements/Treatment - Nurse 1 - General Ulcer Assessment Start: 06/29/22 09:03 Freq: Status: Active Protocol: [email or web address] Activity Type Activity Date Activity User E-sign Co-sign Detail Recorded Client Recorded Date Recorded By Document 06/29/22 09:03 [facility] [id number] 06/29/22 09:16 [facility] 06/29/22 09:03 - Today's Visit Information Type of service Follow-up Visit (Physician/REFINERY OPERATOR HELPER CRUDE UNIT ) Arrival Mode Ambulatory Transfer Assistance None Patient Identification Verified (Name & Yes ) Patient Requires Transmission-Based No Precautions Height and Weight Body Mass Index (BMI) 53.5 BMI Classification Obese Vital Signs Temperature (97.8 F-99.1 F) 96.2 F L Temperature Source Temporal Pulse Rate (60-100 beats/min) 62 Pulse Location Monitor Respiratory Rate (12-18 breaths/min) 16 Respiratory rate source Observation Oxygen Delivery Method Room Air Blood Pressure (90/60-120/80 mm Hg) 147/66 H Blood Pressure Mean (mm Hg) 93 Source Monitor Position Sitting Blood Pressure Location Right Arm History Since Last Visit- (Skip if this is Patient's initial visit) Have you changed medications since your No last visit? Any new allergies or adverse reactions No Had a fall/change in ADL's that may No increase risk of falls Signs or symptoms of abuse and/or No neglect since last visit Have you been in the hospital since your No last visit? Has dressing in place as prescribed Yes Has compression in place as prescribed N/A Has offloadiing in place as prescribed N/A Experienced any changes in pain level or No management Left Footwear Regular Shoe Right Footwear Regular Shoe Pain Scale: 0-10 Numeric Is Patient Pain Free? Yes ANGÉLICA - Nurse 1 - General Ulcer Measurement Start: 06/29/22 09:03 Freq: Status: Active Protocol: Activity Type Activity Date Activity User E-sign Co-sign Detail Recorded Client Recorded Date Recorded By Document 06/29/22 09:03 [facility] [id number] 06/29/22 09:16 [facility] 06/29/22 09:03 Wound Center Nurse 1 #2 L GROIN -Combined with other wound No -Current Size (cm) - Length 0 -Current Size (cm) - Width 0 -Current Size (cm) - Depth 0 -Total Square Cm 0 -Date of Last Picture (Recall this 06/29/22 field) -Photo Taken Yes -Epithelialization Large 67-100% -Tunneling No -Undermining/Tunneling No -Circular Undermining No -Exudate Amt None Present -Wound Margin Distinct, Outline Attached -Texture (Mayela-wound Skin Appearance) Assessed -Moisture (Mayela-wound Skin Appearance) Assessed -Color (Mayela-wound Skin Appearance) Assessed -Temperature (Mayela-wound Skin No Abnormality Appearance) (Pt Warm) -Tenderness on Palpation (Mayela-wound No Skin Appearance) -Ulcer Cleansing Rinsed/ Irrigated with Saline -Foul Odor after Cleansing No WC - Nurse 2 - General Ulcer CM Notes Start: 06/29/22 09:03 Freq: Status: Active Protocol: Activity Type Activity Date Activity User E-sign Co-sign Detail Recorded Client Recorded Date Recorded By Document 06/29/22 09:28 [id number] 06/29/22 09:31 MW 06/29/22 09:28 Wound Center Nurse 2 -Time 09:29 -Correct Patient Yes -Correct Side, Site, Position Yes -Correct Procedure Yes -Procedure Performed No -Post Debridement (cm) - Length 0 -Post Debridement (cm) - Width 0 -Post Debridement (cm) - Depth 0 -Total Square (Post) (cm) 0 -Wound/Ulcer Outcome Healed- Epithelialized Pain Scale: 0-10 Numeric Is Patient Pain Free? Yes ANGÉLICA - Nurse 3 - General Ulcer D/C NN Start: 06/29/22 09:03 Freq: Status: Active Protocol: Activity Type Activity Date Activity User E-sign Co-sign Detail Recorded Client Recorded Date Recorded By Document 06/29/22 09:31 [id number] 06/29/22 09:32 MW 06/29/22 09:31 Wound Care Center Nurse 3 Treatment Response Procedure Tolerated Well Pain Scale: 0-10 Numeric Is Patient Pain Free? Yes Teaching: Wound Center Discharge Instructions -Person Taught Patient -Teaching Method Discussion -Response to teaching Verbalize understanding WC - Visit Discharge Discharge Condition Stable Ambulatory Status Ambulatory Transportation Private Auto Accompanied by self Medication Reconcilliation completed & No provided to patient/care provider Clinical Summary of Care Provided Yes Assessment/Plan Assessment/Plan (1) Nonhealing nonsurgical wound: CODE(S): T14.8XXA - Other injury of unspecified body region, initial encounter (2) Hidradenitis: CODE(S): L73.2 - Hidradenitis suppurativa PLAN: Plan Patient is healed and will be discharged from the wound center and she may follow-up as needed Made suggestions on paper about different ways of keeping the moisture under herabdomen 06/29/22 1013 <Electronically signed by Anna Murphy NP [employer]> Cosigner Signature (if applicable): CC: ~ Signed [facility] Work Phone: [phone] 512-448602-24-2023 Miscellaneous Notes* Telephone Encounter - Ruby Matos [facility] - 06/24/2022 11:29 AM EST [facility] Ambulatory Pharmacy Anticoagulation Clinic Anticoagulation Episode Summary Anticoagulation Care Providers Provider Role Specialty Phone number Milka Mas MD Family Medicine [phone] Morena Martinez is a 57 year old year old female patient being evaluated today for a Telemanagement visit. Patient is currently on the following anticoagulant(s) Warfarin. Labs PT INR (no units) Date Value 03/20/2022 2.7 01/23/2022 2.9 11/30/2021 3.1 biotel INR Home CoaguChek (no units) Date Value 06/24/2022 2.6 06/08/2022 2.7 05/22/2022 2.3 Hemoglobin (g/dL) Date Value 04/09/2021 15.2 Hematocrit (%) Date Value 04/09/2021 46.7 Platelet Count (k/uL) Date Value 04/09/2021 299 Creatinine (mg/dL) Date Value 01/12/2022 0.74 07/01/2021 0.76 03/23/2021 0.60 12/07/2020 0.62 04/01/2020 0.70 Bilirubin, Total (mg/dL) Date Value 01/12/2022 0.7 12/07/2020 0.6 ALT (U/L) Date Value 01/12/2022 17 12/07/2020 33 AST (U/L) Date Value 01/12/2022 25 12/07/2020 35 Estimated Creatinine Clearance: 125.3 mL/min (based on SCr of 0.74 mg/dL). ALLERGIES Allergen Reactions Augmentin [Amoxicil* Other: See Comments Adverse effect, developed yeast infection Bextra [Valdecoxib] Swelling Ankle swelling Celebrex [Celecoxib] Swelling ankle swelling Erythromycin Rash Latex Lovenox [Enoxaparin* Rash Vioxx [Rofecoxib] Swelling ankle swelling Voltaren [Diclofena* Swelling ankle swelling Indication for Warfarin: FPC (current) use of anticoagulants Embolism and thrombosis (hcc) Anticoagulation Episode Summary Current INR goal: 2.0-3.0 Assessment: INR result of 2.6 is therapeutic Plan: Current Warfarin Dosing As of 06/24/2022 Full warfarin instructions: 7.5 mg every day Sent [employer] message Advised patient to continue current weekly dose as noted above Next home INR check scheduled on 07/08/2022 Ruby Matos RPh Clinical Pharmacist, Pharmacy Anticoagulation Clinic Pharmacy Anticoagulation Clinic Pager: [phone]. documented in this encounterMer[facility]23 Miscellaneous Notes* Telephone Encounter - Dori Pepper RPh - 06/22/2022 11:59 AM EST Patient was due to test INR today will continue to monitor for results. Of note - she didn't read at least our last 2 NOB[employer] messages. Dori Pepper PharmD Pharmacy Anticoagulation Clinic documented in this encounterMer[facility]02-15-2023 Progress note Author Anna Murphy [facility] June 15, 2022 9:42am Note Date/Time June 15, 2022 9:42am [facility] [address] [place] [address] Progress Note - Wound Care 06/15/22 0939 MR#: [id number] Acct: [id number] Name: MORENA MARTINEZ Rep #:[id number] : 1965 57 From: Anna Murphy NP [employer] PCP: Dr. Milka Mas MD Status:RE G RCR Location: History of Present Illness Date of Service: 06/15/22 Chief Complaint: Follow-up on left groin open wound nonhealing History of Wound: 57-year-old white obese female, develops open sores in her groin mostly in the same spot all the time. She states after a period of time they heal up on their own. She saw Dr. Stapleton general surgeon who discussed with she was not really a good surgical candidate because it would make a huge hole if he was trying to remove it. He feels it might be hidradenitis and had her referred to the wound center. There was no tunneling noted some hyper granulating tissue but she does have 2 open areas and that left groin area. With some erythematous areas around it. Will refer to dermatology to see if she would be a candidate for injections for the hidradenitis if that is possible. In the meantime we will continue seeing her for wound care Progress of Wound: Today the wound looks smaller and healing well she had a couple of bacteria is growing and is on 2 different antibiotic and antimicrobial tolerating well. Should heal well using the Aquacel extra. The area had to actually open areas with skin in between it was almost like a little tunnel. That is all healed sheis down to 1 area that is superficial. Patient should be able to heal in withinthe next week or so we will follow-up in 2 weeks Subjective Subjective Patient is very pleased with outcomes Objective Data Objective Data We will continue using the Aquacel extra to the area and keep an eye on infection. Did have a reaction to the levothyroxine and we will need to put that on her allergy list. Vital Signs: Vital Signs Temp Pulse Resp BP 96.1 F L 67 18 181/60 H 06/15/22 09:06 06/15/22 09:06 06/15/22 09:06 06/15/22 09:06 Weight: 342 lb Body Mass Index (BMI) 53.5 Lab / Micro Data Attestation: I reviewed the patient's lab results. Physical Exam Const oriented x3 General Appearance: cooperative Exam Limitations: no limitations HEENT normocephalic Head and Scalp: normal to inspection Nose: external nose normal General Ear: hearing grossly impaired External Ear: external ears normal Eyes PERRL General Eye: normal appearance of both eyes Neck full ROM Lymph Lymphatic: no lymphadenopathy noted Resp normal respiratory effort Effort and Inspection: able to speak in complete sentences Auscultation: clear to auscultation bilaterally Cardio regular rate and regular rhythm Palpation: normal PMI Rate: regular rate Rhythm: regular rhythm GI Inspection: pannus present and other Other Details: Large pannus with pendulous abdomen Auscultation: normoactive bowel sounds Palpation: soft and no hepatosplenomegaly Extremity General Extremity: normal exam except as noted Skin Wounds: wounds noted Wound Narrative: Left groin open wounds and erythematous area noted to real depth tunneling between the 2 adjacent to each other. Neuro oriented x3 Psych Appearance: grossly normal Speech: normal speech Thought Content: normal thought content Judgement: judgement good Debridement Note Debridement Note Wound debrided: Left groin nonhealing wound Laterality: Left Type of Debridement: Excisional debridement Anesthesia Used: 5% Lidocaine Gel Depth: Down to and including healthy tissue and in the subcutaneous layer Percentage of wound debrided: 100 Instrument Used: 5mm curette Tissue Removed: Fibrin Severity: Limited To Skin Breakdown Amount of bleeding with debridement: Mild Bleeding Controlled with: Compression and gauze Patient tolerated procedure: Patient tolerated procedure well Post-Debridement Measurements and Additional Note: Post-Debridement Measurements/Treatment WC - Nurse 1 - General Ulcer Assessment Start: 06/01/22 09:06 Freq: Status: Active Protocol: DIDIER Activity Type Activity Date Activity User E-sign Co-sign Detail Recorded Client Recorded Date Recorded By Document 06/01/22 09:06 DAI [id number] 06/01/22 09:09 AK Document 06/15/22 09:06 ML [id number] 06/15/22 09:11 ML 06/01/22 06/15/22 09:06 09:06 - Today's Visit Information Type of service Follow-up Visit Follow-up Visit (Physician/REFINERY OPERATOR HELPER CRUDE UNIT (Physician/REFINERY OPERATOR HELPER CRUDE UNIT ) ) Arrival Mode Ambulatory Ambulatory Transfer Assistance None Patient Identification Verified (Name & Yes Yes ) Patient Requires Transmission-Based No No Precautions Safety Precautions NA NA Height and Weight Body Mass Index (BMI) 53.5 53.5 BMI Classification Obese Obese Vital Signs Temperature (97.8 F-99.1 F) 97.2 F L 96.1 F L Temperature Source Temporal Temporal Pulse Rate (60-100) 66 67 Pulse Location Monitor Respiratory Rate (12-18) 18 Respiratory rate source Observation Blood Pressure (90/60-120/80) 189/71 H 181/60 H Blood Pressure Mean (mm Hg) 110 100 Source Monitor Monitor Position Sitting Blood Pressure Location Right Arm History Since Last Visit- (Skip if this is Patient's initial visit) Have you changed medications since your No No last visit? Any new allergies or adverse reactions No No Had a fall/change in ADL's that may No No increase risk of falls Signs or symptoms of abuse and/or No No neglect since last visit Have you been in the hospital since your No No last visit? Has dressing in place as prescribed Yes Yes Has compression in place as prescribed N/A N/A Has offloadiing in place as prescribed N/A N/A Experienced any changes in pain level or No No management Left Footwear Regular Shoe Regular Shoe Right Footwear Regular Shoe Regular Shoe Pain Scale: 0-10 Numeric Is Patient Pain Free? Yes Yes - Nurse 1 - General Ulcer Measurement Start: 06/01/22 09:06 Freq: Status: Active Protocol: Activity Type Activity Date Activity User E-sign Co-sign Detail Recorded Client Recorded Date Recorded By Document 06/01/22 09:06 MS [id number] 06/01/22 09:09 AK Document 06/15/22 09:06 ML [id number] 06/15/22 09:11 ML 06/01/22 06/15/22 09:06 09:06 Wound Center Nurse 1 #2 L GROIN -Combined with other wound No -Current Size (cm) - Length 0.3 0.4 -Current Size (cm) - Width 0.3 0.4 -Current Size (cm) - Depth 0.1 0.2 -Total Square Cm 0.09 0.16 -Date of Last Picture (Recall this 06/01/22 field) -Photo Taken Yes -Tunneling No -Undermining/Tunneling No -Circular Undermining No -Change in Wound Grade/Stage No -Exudate Amt Medium Small -Exudate Type Serosanguineous Serosanguineous -Wound Margin Distinct, Distinct, Outline Outline Attached Attached -Granulation Amt Large (67-100%) -Granulation Quality Red -Slough/Fibrin No -Necrosis Amt None Present (0 Small (1-33%) %) -Necrotic Tissue Type Adherent Slough -Structure Exposed N/A -Texture (Mayela-wound Skin Appearance) No Abnormality, Assessed Assessed -Moisture (Mayela-wound Skin Appearance) No Abnormality, Assessed Assessed -Color (Mayela-wound Skin Appearance) No Abnormality, Assessed Assessed -Temperature (Mayela-wound Skin No Abnormality No Abnormality Appearance) (Pt Warm) (Pt Warm) -Tenderness on Palpation (Mayela-wound No Yes Skin Appearance) -Ulcer Cleansing Rinsed/ Rinsed/ Irrigated with Irrigated with Saline Saline -Foul Odor after Cleansing No No -Anesthetic Used 4% Lidocaine 5% Lidocaine Solution Gel 06/01/22 09:08 Wound Center by Abdulaziz Drake Pain 7-10 in left shoulder and hip Initialized on 06/01/22 09:08 - END OF NOTE WC - Nurse 2 - General Ulcer CM Notes Start: 06/01/22 09:06 Freq: Status: Active Protocol: Activity Type Activity Date Activity User E-sign Co-sign Detail Recorded Client Recorded Date Recorded By Document 06/01/22 09:27 MW [id number] 06/01/22 09:30 MW Document 06/15/22 09:28 MW [id number] 06/15/22 09:30 MW 06/01/22 06/15/22 09:27 09:28 Wound Center Nurse 2 #2 L GROIN -Time 09:28 09:28 -Correct Patient Yes Yes -Correct Side, Site, Position Yes Yes -Correct Procedure Yes Yes -Procedure Performed Yes Yes -Type of Procedure Debridement Debridement -Clinical Debridement Subcutaneous Subcutaneous -Tissue Removed Subcutaneous Subcutaneous -Post Debridement (cm) - Length 0.8 0.6 -Post Debridement (cm) - Width 0.5 0.6 -Post Debridement (cm) - Depth 0.3 0.1 -Total Square (Post) (cm) 0.40 0.36 -Area of Debridement (cm) - Length 0.8 0.6 -Area of Debridement (cm) - Width 0.5 0.6 -Total Square (Area) (cm) 0.40 0.36 -Tunneling No No -Undermining/Tunneling No No -Circular Undermining No No -Wound/Ulcer Outcome Not Healed Not Healed -Ulcer Cleansing Rinsed/ Rinsed/ Irrigated with Irrigated with Saline Saline -Foul Odor after Cleansing No No -Bioengineered Tissue No No -Bleeding Controlled with Pressure Pressure -Treatment Response Procedure Procedure Tolerated Well Tolerated Well -Offloading No No -Debridement - Subq, 1st 20sq cm Yes Yes Pain Scale: 0-10 Numeric Is Patient Pain Free? Yes Yes - Nurse 3 - General Ulcer D/C NN Start: 06/01/22 09:06 Freq: Status: Active Protocol: Activity Type Activity Date Activity User E-sign Co-sign Detail Recorded Client Recorded Date Recorded By Document 06/01/22 09:30 MW [id number] 06/01/22 09:31 MW 06/01/22 09:30 Wound Care Center Nurse 3 #2 L GROIN -Ulcer Cleansing Rinsed/ Irrigated with Saline -Foul Odor after Cleansing No -Negative Pressure Wound Therapy N/A -Primary Dressing Applied Aquacel Extra -Other Covering abd pad -Aquacel Extra 1 Pain Scale: 0-10 Numeric Is Patient Pain Free? Yes Teaching: Wound Center Dressing Your Wound -Person Taught Patient -Teaching Method Discussion, Demonstration -Response to teaching Verbalize understanding WC - Visit Discharge Discharge Condition Stable Ambulatory Status Ambulatory Transportation Private Auto Accompanied by self Medication Reconcilliation completed & No provided to patient/care provider Clinical Summary of Care Provided Yes Assessment/Plan Assessment/Plan (1) Nonhealing nonsurgical wound: CODE(S): T14.8XXA - Other injury of unspecified body region, initial encounter (2) Hidradenitis: CODE(S): L73.2 - Hidradenitis suppurativa PLAN: Plan Wash the area with antibacterial soap and pat dry apply Aquacel extra to wound base cover with dressing and ABD This is a daily dressing Follow-up in 2 week 06/15/22 0942 <Electronically signed by Anna Murphy NP [employer]> Cosigner Signature (if applicable): CC: ~ Signed [facility] Work Phone: [phone]) 799-685602-09-2023 History of Present illness Narrative* Lisa Acosta Ma - 06/09/2022 11:25 AM EST Physical therapy order faxed to [facility] and referral done in computer. * Lisette Banks DO - 06/09/2022 8:59 AM EST Images from the original note were not included. Follow Up Visit Chief Complaint Morena Martinez is a 57 year old female who presents today for follow up office visit. Patient presents with: Left Shoulder - Established Patient, Follow Up History of Present Illness PAIN EVALUATION 06/09/2022 09 Pain Level: 5 Pain present only with movement and ranges 5-10 Pain Location: Arm-Left Description: Aching;Sharp Duration Amount of Time: 3 Duration Units: Months Frequency: Intermittent Intervention/Comfort measure: Medication;Heat Comments: Tylenol with codeine HPI: Morena Martinez is a 57 year old female for a follow up visit 3 month post visit for L shoulder bursitis. Pt states she was started on Levaquin and started having increased pain in arm/shoulder and everywhere and unable to lift L arm. Finished the 14 day course of therapy on 06/06/22. Pain history is noted as above. Wound center for groin cyst/ open since January, on flagyl and was on levaquin and 2 days into levaquin, thrush, and intense pain in her hips and shoulders and left shoulder has not improved much since going off levaquin. Is there any overall improvement in your condition? No Any new injury, since being seen last: No REVIEW OF SYMPTOMS: Patient did not have, and does not currently have, any weight loss, malaise, fever, chills, headache, chest pain, chest pressure, palpitations, cough, shortness of breath, orthopnea, paroxsymal nocturnal dyspnea, nausea, vomiting, diarrhea, constipation, melena, hematochezia, urinary difficulties, prolonged bleeding, easily bruising, heat or cold intolerance, new onset joint pain or swelling, newonset extremity weakness or numbness, new onset auditory or visual disturbances, lightheadedness, dizziness, partial loss of consciousness or full loss of consciousness. Current Outpatient Medications Medication Sig acetaminophen-codeine (TYLENOL-CODEINE #3) 300-30 mg per tablet Take 1 tablet by mouth twice daily as needed for pain for up to 90 days. tiZANidine (ZANAFLEX) 4 mg tablet Take 1 tablet by mouth every 6 hours as needed. furosemide (LASIX) 40 mg tablet Take 1 tablet by mouth once daily. nystatin (MYCOSTATIN) 100,000 unit/mL suspension Take 5 mL by mouth four times daily. 1tsp swish inmouth for several minutes, then swallow (or expectorate) 4 times daily until gone. gabapentin (NEURONTIN) 300 mg capsule Take 1 capsule by mouth daily at bedtime for 180 days. fluticasone (FLONASE) 50 mcg/actuation nasal spray Use 2 Sprays in each nostril once daily. Rinse mouth after use. lisinopril (ZESTRIL, PRINIVIL) 10 mg tablet Take 1 tablet by mouth once daily. atenolol (TENORMIN) 50 mg tablet Take 50 mg in the AM, 25 mg in the PM JANUVIA 100 mg tablet Take 1 tablet by mouth once daily. warfarin (COUMADIN) 5 mg tablet 7.5 mg daily nystatin (MYCOSTATIN) cream Apply to affected area twice daily. cyclobenzaprine (FLEXERIL) 10 mg tablet Take 1 tablet by mouth every 8 hours as needed for muscle spasm. for pain or spasms. furosemide (LASIX) 20 mg tablet Take 1 tablet by mouth once daily. NEEDED clindamycin (CLEOCIN) 300 mg capsule Take 1 capsule by mouth four times daily. (Patient not taking:Reported on 06/09/2022) No current facility-administered medications for this visit. Physical Exam Vitals: There were no vitals taken for this visit. Psych: Pleasant, good affect and mood General Appearance: Well appearing, alert, in no acute distress, well-hydrated, well nourished.. Skin: Skin color, texture, turgor normal, no suspicious rashes or lesions. Peripheral Pulses: Normal. Neurologic: Gait normal. Reflexes normal and symmetric. Sensation grossly intact.. Lymph Nodes: No cervical lymphadenopathy, No supraclavicular lymphadenopathy, No axillary lymphadenopathy., and No inguinal lymphadenopathy.. Respiratory: No recent pulmonary infection, hemoptysis, chronic cough, or shortness of breath at rest Rheumatologic: Joint deformities: left shoulder pain Left Shoulder Exam Range of Motion Active abduction: abnormal Passive abduction: abnormal Extension: abnormal External rotation: abnormal Forward flexion: abnormal Internal rotation 0 degrees: abnormal Internal rotation 90 degrees: abnormal Muscle Strength Abduction: 4/5 Internal rotation: 4/5 External rotation: 4/5 Supraspinatus: 4/5 Subscapularis: 4/5 Biceps: 4/5 Comments: Stiff passively and actively 40 degrees abd/flex neutral IR/ER Assessment and Plan Radiographs: No imaging to review. Impression: Encounter Diagnosis ICD-10-CM 1. Adhesive capsulitis of left shoulder M75.02 CONSULT TO PHYSICAL THERAPY Today, in detail, through a thorough evaluation, we discussed possible etiologies of pain and our plans for further diagnostic and therapeutic interventions. We discussed strategies for decreasing pain and improving strength, stability and motion. Patient's questions were answered in detailed. Patient verbalizes understanding and agrees with the treatment plan as discussed. Just had steroid león in March, unable to take nsaids , take otc voltaren gel as indicated PT for pool therapy See me in 6 wks after frozen stage is over from lev induced frozen shoulder for left sa injection Patient aware and in agreement of plan. All questions answered. documented in this [facility]Mer[facility]02-[facility]-2023 Miscellaneous Notes* Telephone Encounter - Dori Pepper RPh - 06/08/2022 2:13 PM EST [employer] message sent for therapeutic range. documented in this encounterMer[facility]02-01-2023 Progress note Author Anna Murphy [facility] June 01, 2022 11:56am Note Date/Time June 01, 2022 1 1:56am [facility] [address] [place] [address] Progress Note - Wound Care 06/01/22 1153 MR#: [id number] Acct: [id number] Name: MORENA MARTINEZ Rep #:[id number] : 1965 57 From: Anna Murphy NP [employer] PCP: Dr. Milka Mas MD Status:RE G RCR Location: History of Present Illness Date of Service: 06/01/22 Chief Complaint: Follow-up on left groin open wound nonhealing History of Wound: 57-year-old white obese female, develops open sores in her groin mostly in the same spot all the time. She states after a period of time they heal up on their own. She saw Dr. Stapleton general surgeon who discussed with she was not really a good surgical candidate because it would make a huge hole if he was trying to remove it. He feels it might be hidradenitis and had her referred to the wound center. There was no tunneling noted some hyper granulating tissue but she does have 2 open areas and that left groin area. With some erythematous areas around it. Will refer to dermatology to see if she would be a candidate for injections for the hidradenitis if that is possible. In the meantime we will continue seeing her for wound care Progress of Wound: Today the wound looks smaller and healing well she had a couple of bacteria is growing and is on 2 different antibiotic and antimicrobial tolerating well. Should heal well using the Aquacel extra Subjective Subjective Patient is happy that is getting smaller Objective Data Objective Data Surrounding perimeter of the wound is fleshy colored not erythematous looks goodhealing well getting smaller. Vital Signs: Vital Signs Temp Pulse BP 97.2 F L 66 189/71 H 06/01/22 09:06 06/01/22 09:06 06/01/22 09:06 Weight: 342 lb Body Mass Index (BMI) 53.5 Lab / Micro Data Attestation: I reviewed the patient's lab results. Physical Exam Const oriented x3 General Appearance: cooperative Exam Limitations: no limitations HEENT normocephalic Head and Scalp: normal to inspection Nose: external nose normal General Ear: hearing grossly impaired External Ear: external ears normal Eyes PERRL General Eye: normal appearance of both eyes Neck full ROM Lymph Lymphatic: no lymphadenopathy noted Resp normal respiratory effort Effort and Inspection: able to speak in complete sentences Auscultation: clear to auscultation bilaterally Cardio regular rate and regular rhythm Palpation: normal PMI Rate: regular rate Rhythm: regular rhythm GI Inspection: pannus present and other Other Details: Large pannus with pendulous abdomen Auscultation: normoactive bowel sounds Palpation: soft and no hepatosplenomegaly Extremity General Extremity: normal exam except as noted Skin Wounds: wounds noted Wound Narrative: Left groin open wounds and erythematous area noted to real depth tunneling between the 2 adjacent to each other. Neuro oriented x3 Psych Appearance: grossly normal Speech: normal speech Thought Content: normal thought content Judgement: judgement good Debridement Note Debridement Note Wound debrided: Left groin wound nonhealing Type of Debridement: Excisional debridement Anesthesia Used: 5% Lidocaine Gel Depth: Down to and including healthy tissue Percentage of wound debrided: 100 Instrument Used: 3mm curette Tissue Removed: Fibrin Severity: Fat Layer Exposed Amount of bleeding with debridement: Mild Bleeding Controlled with: Compression and gauze Patient tolerated procedure: Patient tolerated procedure well Post-Debridement Measurements and Additional Note: Post-Debridement Measurements/Treatment - Nurse 1 - General Ulcer Assessment Start: 06/01/22 09:06 Freq: Status: Active Protocol: DIDIER Activity Type Activity Date Activity User E-sign Co-sign Detail Recorded Client Recorded Date Recorded By Document 06/01/22 09:06 DAI [id number] 06/01/22 09:09 DAI 06/01/22 09:06 - Today's Visit Information Type of service Follow-up Visit (Physician/REFINERY OPERATOR HELPER [facility]UDE UNIT ) Arrival Mode Ambulatory Patient Identification Verified (Name & Yes ) Patient Requires Transmission-Based No Precautions Safety Precautions NA Height and Weight Body Mass Index (BMI) 53.5 BMI Classification Obese Vital Signs Temperature (97.8 F-99.1 F) 97.2 F L Temperature Source Temporal Pulse Rate (60-100) 66 Pulse Location Monitor Blood Pressure (90/60-120/80) 189/71 H Blood Pressure Mean (mm Hg) 110 Source Monitor History Since Last Visit- (Skip if this is Patient's initial visit) Have you changed medications since your No last visit? Any new allergies or adverse reactions No Had a fall/change in ADL's that may No increase risk of falls Signs or symptoms of abuse and/or No neglect since last visit Have you been in the hospital since your No last visit? Has dressing in place as prescribed Yes Has compression in place as prescribed N/A Has offloadiing in place as prescribed N/A Experienced any changes in pain level or No management Left Footwear Regular Shoe Right Footwear Regular Shoe Pain Scale: 0-10 Numeric Is Patient Pain Free? Yes WC - Nurse 1 - General Ulcer Measurement Start: 06/01/22 09:06 Freq: Status: Active Protocol: Activity Type Activity Date Activity User E-sign Co-sign Detail Recorded Client Recorded Date Recorded By Document 06/01/22 09:06 DAI [id number] 06/01/22 09:09 DAI 06/01/22 09:06 Wound Center Nurse 1 #2 L GROIN -Combined with other wound No -Current Size (cm) - Length 0.3 -Current Size (cm) - Width 0.3 -Current Size (cm) - Depth 0.1 -Total Square Cm 0.09 -Date of Last Picture (Recall this 06/01/22 field) -Photo Taken Yes -Tunneling No -Undermining/Tunneling No -Circular Undermining No -Change in Wound Grade/Stage No -Exudate Amt Medium -Exudate Type Serosanguineous -Wound Margin Distinct, Outline Attached -Granulation Amt Large (67-100%) -Granulation Quality Red -Slough/Fibrin No -Necrosis Amt None Present (0 %) -Structure Exposed N/A -Texture (Mayela-wound Skin Appearance) No Abnormality, Assessed -Moisture (Mayela-wound Skin Appearance) No Abnormality, Assessed -Color (Mayela-wound Skin Appearance) No Abnormality, Assessed -Temperature (Mayela-wound Skin No Abnormality Appearance) (Pt Warm) -Tenderness on Palpation (Mayela-wound No Skin Appearance) -Ulcer Cleansing Rinsed/ Irrigated with Saline -Foul Odor after Cleansing No -Anesthetic Used 4% Lidocaine Solution 06/01/22 09:08 Wound Center by Abdulaziz Drake Pain 7-10 in left shoulder and hip Initialized on 06/01/22 09:08 - END OF NOTE WC - Nurse 2 - General Ulcer CM Notes Start: 06/01/22 09:06 Freq: Status: Active Protocol: Activity Type Activity Date Activity User E-sign Co-sign Detail Recorded Client Recorded Date Recorded By Document 06/01/22 09:27 MW [id number] 06/01/22 09:30 MW 06/01/22 09:27 Wound Center Nurse 2 -Time 09:28 -Correct Patient Yes -Correct Side, Site, Position Yes -Correct Procedure Yes -Procedure Performed Yes -Type of Procedure Debridement -Clinical Debridement Subcutaneous -Tissue Removed Subcutaneous -Post Debridement (cm) - Length 0.8 -Post Debridement (cm) - Width 0.5 -Post Debridement (cm) - Depth 0.3 -Total Square (Post) (cm) 0.40 -Area of Debridement (cm) - Length 0.8 -Area of Debridement (cm) - Width 0.5 -Total Square (Area) (cm) 0.40 -Tunneling No -Undermining/Tunneling No -Circular Undermining No -Wound/Ulcer Outcome Not Healed -Ulcer Cleansing Rinsed/ Irrigated with Saline -Foul Odor after Cleansing No -Bioengineered Tissue No -Bleeding Controlled with Pressure -Treatment Response Procedure Tolerated Well -Offloading No -Debridement - Subq, 1st 20sq cm Yes Pain Scale: 0-10 Numeric Is Patient Pain Free? Yes WC - Nurse 3 - General Ulcer D/C NN Start: 06/01/22 09:06 Freq: Status: Active Protocol: Activity Type Activity Date Activity User E-sign Co-sign Detail Recorded Client Recorded Date Recorded By Document 06/01/22 09:30 MW [id number] 06/01/22 09:31 MW 06/01/22 09:30 Wound Care Center Nurse 3 #2 L GROIN -Ulcer Cleansing Rinsed/ Irrigated with Saline -Foul Odor after Cleansing No -Negative Pressure Wound Therapy N/A -Primary Dressing Applied Aquacel Extra -Other Covering abd pad -Aquacel Extra 1 Pain Scale: 0-10 Numeric Is Patient Pain Free? Yes Teaching: Wound Center Dressing Your Wound -Person Taught Patient -Teaching Method Discussion, Demonstration -Response to teaching Verbalize understanding WC - Visit Discharge Discharge Condition Stable Ambulatory Status Ambulatory Transportation Private Auto Accompanied by self Medication Reconcilliation completed & No provided to patient/care provider Clinical Summary of Care Provided Yes Assessment/Plan Assessment/Plan (1) Nonhealing nonsurgical wound: CODE(S): T14.8XXA - Other injury of unspecified body region, initial encounter (2) Hidradenitis: CODE(S): L73.2 - Hidradenitis suppurativa PLAN: Plan Wash the area with antibacterial soap and pat dry apply Aquacel extra to wound base cover with dressing and ABD This is a daily dressing Finish Flagyl and antibiotic therapy Follow-up in 2 week 06/01/22 1156 <Electronically signed by Anna Murphy NP CEMENT TRUCK LOADER-C> Cosigner Signature (if applicable): CC: ~ Signed [facility] Work Phone: 1(481) 316-265301-16-2023 Miscellaneous Notes* Telephone Encounter - Byron Jolley APRN.CNP - 05/16/2022 2:11 PM EST The following approved medication requests have been transmitted electronically. Requested Prescriptions Pending Prescriptions Disp Refills furosemide (LASIX) 40 mg tablet 30 tablet 11 Sig: Take 1 tablet by mouth once daily. Byron Jolley APRN.CNP * Telephone Encounter - Deepti Calderon RN - 05/16/2022 2:04 PM EST Patient has been identified by name and date of : Yes, Provider [facility] Date 05/16/22 Time 1400 Patient phones for refill(s): Requested Prescriptions Pending Prescriptions Disp Refills furosemide (LASIX) 40 mg tablet 30 tablet 11 Sig: Take 1 tablet by mouth once daily. Date of last office visit with pcp: 03/21/22 Date of last office visit in primary care: Last 2 Encounter Wt Readings: Date: Wt: 05/10/2022 147 kg (324 lb) 03/29/2022 156.9 kg (346 lb) Previous labs/tests for medication: Blood Pressure: BUN (mg/dL) Date Value 01/12/2022 12 03/23/2021 13 Sodium (mmol/L) Date Value 01/12/2022 141 03/23/2021 140 Last 1 Encounter BP Readings: Date: BP: 05/10/2022 138/80 Potassium: No components found for: POT Please advise. Thank you. Deepti Calderon, RN documented in this encounterMer[facility]01-16-2023 Miscellaneous Notes* Telephone Encounter - Byron Jolley APRN.CNP - 05/16/2022 10:36 AM EST Approved. PDMP website checked and validated. All prescriptions have been APPROPRIATELY filled. No suspiciousactivity was identified. 05/16/2022 by Byron Jolley APRN.CNP The following approved medication requests have been transmitted electronically. Requested Prescriptions Signed Prescriptions Disp Refills acetaminophen-codeine (TYLENOL-CODEINE #3) 300-30 mg per tablet 60 tablet 2 Sig: Take 1 tablet by mouth twice daily as needed for pain for up to 90 days. Authorizing Provider: BYRON JOLLEY APRN.CNP * Telephone Encounter - Enedelia Madrid LPN - 05/16/2022 10:28 AM EST Patient phones requesting refills as follows: Requested Prescriptions Pending Prescriptions Disp Refills acetaminophen-codeine (TYLENOL-CODEINE #3) 300-30 mg per tablet 60 tablet 2 Sig: Take 1 tablet by mouth twice daily as needed for pain for up to 90 days. JEROME-03/21/22 Labs-01/18/22 NOV-07/19/22 med filled 02/16/22 Please review and advise. Enedelia Madrid LPN documented in this encounterMer[facility]01-16-2023 Miscellaneous Notes* Telephone Encounter - Byron Jolley APRN.CNP - 05/16/2022 10:28 AM EST The following approved medication requests have been transmitted electronically. Requested Prescriptions Pending Prescriptions Disp Refills tiZANidine (ZANAFLEX) 4 mg tablet 30 tablet 5 Sig: Take 1 tablet by mouth every 6 hours as needed. Byron Elfego, TOURIST CABIN KEEPER.REFINERY OPERATOR HELPER [facility]UDE [facility]IT * Telephone Encounter - Enedelia Madrid LPN - 05/16/2022 10:26 AM EST Patient phones requesting refills as follows: Requested Prescriptions Pending Prescriptions Disp Refills tiZANidine (ZANAFLEX) 4 mg tablet 30 tablet 5 Sig: Take 1 tablet by mouth every 6 hours as needed. JEROME-03/21/22 Labs-01/18/22 NOV-07/19/22 med filled 11/26/21 Please review and advise. Enedelia Madrid LPN documented in this encounterMer[facility]01-10-2023 Miscellaneous Notes* Telephone Encounter - Herminia Hernandez RN - 05/10/2022 1:29 PM EST Request for evaluation and treatment sent to [facility] for her left groin abscess. Fax confirmation sheet received. Herminia Hernandez RN documented in this encounterMercy [facility]12-29-2022 Miscellaneous Notes* Telephone Encounter - Catrachito Serna Ma - 04/28/2022 8:32 AM EST Pt notified of PCP response below. Notified pt to call main number and schedule Gen Surg appt. Madeher aware we have Providers here in [place] at the Specialty Building. Catrachito Serna Ma * Telephone Encounter - Milka Mas MD - 04/27/2022 8:03 PM EST I would suggest Surgery consult to evaluate the cyst and see if it can be removed or drained Milka Mas MD documented in this encounterMer[facility]12-23-2022 Miscellaneous Notes* Telephone Encounter - Ruby Matos [facility] - 04/22/2022 3:38 PM EST [facility] Anticoagulation Episode Summary Anticoagulation Care Providers Provider Role Specialty Phone number Milka Mas MD Family Medicine [phone] Morena Martinez is a 57 year old year old female patient being evaluated today for a Telemanagement visit. Patient is currently on the following anticoagulant(s) Warfarin. Labs PT INR (no units) Date Value 03/20/2022 2.7 01/23/2022 2.9 11/30/2021 3.1 biotel INR Home CoaguChek (no units) Date Value 04/22/2022 2.8 04/04/2022 2.5 03/20/2022 2.7 Hemoglobin (g/dL) Date Value 04/09/2021 15.2 Hematocrit (%) Date Value 04/09/2021 46.7 Platelet Count (k/uL) Date Value 04/09/2021 299 Creatinine (mg/dL) Date Value 01/12/2022 0.74 07/01/2021 0.76 03/23/2021 0.60 12/07/2020 0.62 04/01/2020 0.70 Bilirubin, Total (mg/dL) Date Value 01/12/2022 0.7 12/07/2020 0.6 ALT (U/L) Date Value 01/12/2022 17 12/07/2020 33 AST (U/L) Date Value 01/12/2022 25 12/07/2020 35 Estimated Creatinine Clearance: 128.6 mL/min (based on SCr of 0.74 mg/dL). ALLERGIES Allergen Reactions Augmentin [Amoxicil* Other: See Comments Adverse effect, developed yeast infection Bextra [Valdecoxib] Swelling Ankle swelling Celebrex [Celecoxib] Swelling ankle swelling Erythromycin Rash Latex Lovenox [Enoxaparin* Rash Vioxx [Rofecoxib] Swelling ankle swelling Voltaren [Diclofena* Swelling ankle swelling Indication for Warfarin: FPC (current) use of anticoagulants Embolism and thrombosis (hcc) Anticoagulation Episode Summary Current INR goal: 2.0-3.0 Assessment: INR result of 2.8 is therapeutic Plan: Current Warfarin Dosing As of 04/22/2022 Full warfarin instructions: 7.5 mg every day; Starting 04/22/2022 Sent NOBOT message Advised patient to continue current weekly dose as noted above Next home INR check scheduled on 05/06/2022 Ruby Matos RPh Clinical Pharmacist, Pharmacy Anticoagulation Clinic Pharmacy Anticoagulation Clinic Pager: [phone]. documented in this encounterMercy [facility]12-08-2022 Miscellaneous Notes* Telephone Encounter - Catrachito Serna Ma - 04/07/2022 2:27 PM EST See pt message and advise. Catrachito Serna Ma documented in this [facility]12-07-2022 Miscellaneous Notes* Telephone Encounter - Pinky Dawkins Ma - 04/06/2022 12:41 PM EST Do you want to see pt? documented in this [facility]11-29-2022 History of Present illness Narrative* Micah Castillo APRN.REFINERY OPERATOR HELPER CRUDE UNIT - 03/29/2022 11:01 AM EST Subjective HPI HPI Morena Martinez is a 57 year old female who presents today for CC of right ear pain, congestion, started after using candle yesterday. Has tried nothing for relief. Symptoms are worsened by nothing. Risk factors hx of bad allergies. Currently on doxycycline for cellulitis. .Patient presents with: Ear Pain: right, sinus and drainage x 1 day PAST MEDICAL HISTORY Diagnosis Date Blood dyscrasia 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 Diffuse cystic mastopathy Diverticulosis of colon (without mention of hemorrhage) Diverticulosis DVT of leg (deep venous thrombosis) (HCC) Right leg Hypertension Irritable bowel syndrome Localized osteoarthrosis not specified whether primary or secondary, other specified sites RT KNEE Migraine, unspecified, with intractable migraine, so stated, without mention of status migrainosus Migraine Obesity, unspecified Osteoarthritis of right knee Other and unspecified disc disorder of unspecified region Intervertebral disc disorders Other disorders of bladder Personal history of colonic polyps 01/21/2015 PMH - PAST MEDICAL HISTORY OF 1989 Pulmonary Embolism PAST SURGICAL HISTORY Procedure Laterality Date ANESTH DIAGNOSTIC ARTHROSCOPIC PROC KNEE JOINT 1994 LT KNEE ANESTH DIAGNOSTIC ARTHROSCOPIC PROC KNEE JOINT 1994 RT KNEE APPENDECTOMY ARTHRODESIS CMC JNT THUMB W/WO FIX Right 02/21/2018 ARTHROSCOPY KNEE DIAGNOSTIC W/WO SYNOVIAL BX SPX 2007 Right knee ARTHRP KNE CONDYLE&PLATU MEDIAL&LAT COMPARTMENTS Right 06/27/2011 CHOLECYSTECTOMY Cholecystectomy COLONOSCOPY FLX DX W/COLLJ SPEC WHEN PFRMD 01/21/2015 Repeat 2024 I/D PERIANAL ABSCESS, SUPERFICIAL 08/31/2011 LIG/TRNSXJ FLP TUBE ABDL/VAG APPR UNI/BI REDUCTION OF LARGE BREAST Breast reduction REPAIR ANAL FISTULA W/NICHELLE 12/09/2011 REPAIR OF SHOULDER Left 08/2021 Dr Banks [facility] UMBILICAL HRNA 5 YRS/> REDUCIBLE Hernia repair, umbilical >5yr, x2 with mesh TOTAL ABDOMINAL HYSTERECT W/WO RMVL TUBE OVARY Hysterectomy, ARIELLE [place] ECTOPIC W/O SALPING&/OOPHORECTOMY Ectopic ALLERGIES Augmentin [Amoxicillin-Pot Clavulanate], Bextra [Valdecoxib], Celebrex [Celecoxib], Erythromycin, Latex, Lovenox [Enoxaparin Sodium], Vioxx [Rofecoxib], and Voltaren [Diclofenac Sodium] MEDICATIONS doxycycline (VIBRA-TABS) 100 mg tablet Take 1 tablet by mouth twice daily for 10 days. lisinopril (ZESTRIL, PRINIVIL) 10 mg tablet Take 1 tablet by mouth once daily. acetaminophen-codeine (TYLENOL-CODEINE #3) 300-30 mg per tablet Take 1 tablet by mouth twice daily as needed for pain for up to 90 days. furosemide (LASIX) 40 mg tablet Take 1 tablet by mouth once daily. atenolol (TENORMIN) 50 mg tablet Take 50 mg in the AM, 25 mg in the PM tiZANidine (ZANAFLEX) 4 mg tablet Take 1 tablet by mouth every 6 hours as needed. JANUVIA 100 mg tablet Take 1 tablet by mouth once daily. warfarin (COUMADIN) 5 mg tablet 7.5 mg daily gabapentin (NEURONTIN) 300 mg capsule Take 1 capsule by mouth daily at bedtime for 180 days. nystatin (MYCOSTATIN) cream Apply to affected area twice daily. cyclobenzaprine (FLEXERIL) 10 mg tablet Take 1 tablet by mouth every 8 hours as needed for muscle spasm. for pain or spasms. furosemide (LASIX) 20 mg tablet Take 1 tablet by mouth once daily. NEEDED FAMILY HISTORY Problem Relation Age of Onset Heart Father [place] age 50, sudden Breast Cancer Mother Coronary Artery Disease Brother Quadruple by-pass age 50 Coronary Artery Disease Sister IA late 30's Stroke Sister other (Other) Brother pulmonary embolism other (Other) Sister pulmonary embolism Heart Sister heart attack age 50, stent Diabetes Sister older sister; obese Social History Tobacco Use Smoking status: Former Packs/day: 0.50 Years: 2.00 Pack years: 1.00 Types: Cigarettes Quit date: 05/01/1979 Years since quittin.9 Smokeless tobacco: Never Vaping Use Vaping Use: Never used Substance Use Topics Alcohol use: Not Currently Comment: socially Drug use: No ROS Objective Blood pressure 124/72, pulse 92, temperature 37 C (98.6 F), resp. rate 16, weight (!) 156.9 kg (346lb), SpO2 96 %. Physical Exam Constitutional: General: She is not in acute distress. Appearance: She is not toxic-appearing or diaphoretic. HENT: Head: Normocephalic and atraumatic. Right Ear: Hearing, tympanic membrane, ear canal and external ear normal. Left Ear: Hearing, tympanic membrane, ear canal and external ear normal. Nose: Rhinorrhea present. Rhinorrhea is clear. Mouth/Throat: Pharynx: Uvula midline. No pharyngeal swelling, oropharyngeal exudate, posterior oropharyngeal erythema or uvula swelling. Pulmonary: Effort: Pulmonary effort is normal. No accessory muscle usage or respiratory distress. Lymphadenopathy: Cervical: No cervical adenopathy. Right cervical: No superficial cervical adenopathy. Left cervical: No superficial cervical adenopathy. Neurological: Mental Status: She is alert and oriented to person, place, and time. ASSESSMENT/PLAN: 1. ETD (Eustachian tube dysfunction), right - ICD9: 381.81, ICD10: H69.81 -use medication as prescribed -follow up if symptoms persist, worsen, change - PREDNISONE 20 MG TABLET - FLUTICASONE PROPIONATE 50 MCG/ACTUATION NASAL SPRAY,SUSPENSION Micah Castillo APRN.REFINERY OPERATOR HELPER CRUDE UNIT documented in this encounterMer[facility]11-21-2022 History of Present illness Narrative* Milka Mas MD - 03/21/2022 4:00 PM EST Chief Complaint Patient presents with: Derm Problem: Cyst to the left side inner thigh HPI Morena Martinez is a 57 year old female who presents here today for cyst. Pt c/o boil to inner left thigh and groin crease that she has had for awhile, tenderness, has been draining x 1 week. The drainage is yellow, bloody, thick and sticky like. She states she has had these before in the past off and on. Thinks she might need an antibiotic. Has been trying to keep it cleaned. Dizziness: off and on, she state it can occur while standing and had some dizziness with laying down to sitting up. She stated she felt like everything was spinning and felt like she was going to pass out. She stated it took a little while to pass and then she just felt tired the rest of the day. She had it a few weeks ago when her INR was high. Past medical history, appointments, medications, allergies reviewed. 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 Diffuse cystic mastopathy Diverticulosis of colon (without mention of hemorrhage) Diverticulosis DVT of leg (deep venous thrombosis) (HCC) Right leg Hypertension Irritable bowel syndrome Localized osteoarthrosis not specified whether primary or secondary, other specified sites RT KNEE Migraine, unspecified, with intractable migraine, so stated, without mention of status migrainosus Migraine Obesity, unspecified Osteoarthritis of right knee Other and unspecified disc disorder of unspecified region Intervertebral disc disorders Other disorders of bladder Personal history of colonic polyps 01/21/2015 PMH - PAST MEDICAL HISTORY OF 1989 Pulmonary Embolism Previous Surgical History PAST SURGICAL HISTORY Procedure Laterality Date ANESTH DIAGNOSTIC ARTHROSCOPIC PROC KNEE JOINT 1994 LT KNEE ANESTH DIAGNOSTIC ARTHROSCOPIC PROC KNEE JOINT 1994 RT KNEE APPENDECTOMY ARTHRODESIS CMC JNT THUMB W/WO FIX Right 02/21/2018 ARTHROSCOPY KNEE DIAGNOSTIC W/WO SYNOVIAL BX SPX 2008 Right knee ARTHRP KNE CONDYLE&PLATU MEDIAL&LAT COMPARTMENTS Right 06/27/2011 CHOLECYSTECTOMY 1979' Cholecystectomy COLONOSCOPY FLX DX W/COLLJ SPEC WHEN PFRMD 01/21/2015 Repeat 2024 I/D PERIANAL ABSCESS, SUPERFICIAL 08/31/2011 LIG/TRNSXJ FLP TUBE ABDL/VAG APPR UNI/BI REDUCTION OF LARGE BREAST Breast reduction REPAIR ANAL FISTULA W/NICHELLE 12/09/2011 REPAIR OF SHOULDER Left 08/2021 Dr Banks [facility] UMBILICAL HRNA 5 YRS/> REDUCIBLE Hernia repair, umbilical >5yr, x2 with mesh TOTAL ABDOMINAL HYSTERECT W/WO RMVL TUBE OVARY Hysterectomy, ARIELLE [place] ECTOPIC W/O SALPING&/OOPHORECTOMY Ectopic Family History FAMILY HISTORY Problem Relation Age of Onset Heart Father [place] age 50, sudden Breast Cancer Mother Coronary Artery Disease Brother Quadruple by-pass age 50 Coronary Artery Disease Sister IA late 30's Stroke Sister other (Other) Brother pulmonary embolism other (Other) Sister pulmonary embolism Heart Sister heart attack age 50, stent Diabetes Sister older sister; obese Patient Allergies ALLERGIES Allergen Reactions Augmentin [Amoxicil* Other: See Comments Adverse effect, developed yeast infection Bextra [Valdecoxib] Swelling Ankle swelling Celebrex [Celecoxib] Swelling ankle swelling Erythromycin Rash Latex Lovenox [Enoxaparin* Rash Vioxx [Rofecoxib] Swelling ankle swelling Voltaren [Diclofena* Swelling ankle swelling Current Medications Current Outpatient Medications on File Prior to Visit Medication Sig lisinopril (ZESTRIL, PRINIVIL) 10 mg tablet Take 1 tablet by mouth once daily. acetaminophen-codeine (TYLENOL-CODEINE #3) 300-30 mg per tablet Take 1 tablet by mouth twice daily as needed for pain for up to 90 days. furosemide (LASIX) 40 mg tablet Take 1 tablet by mouth once daily. atenolol (TENORMIN) 50 mg tablet Take 50 mg in the AM, 25 mg in the PM tiZANidine (ZANAFLEX) 4 mg tablet Take 1 tablet by mouth every 6 hours as needed. JANUVIA 100 mg tablet Take 1 tablet by mouth once daily. warfarin (COUMADIN) 5 mg tablet 7.5 mg daily gabapentin (NEURONTIN) 300 mg capsule Take 1 capsule by mouth daily at bedtime for 180 days. nystatin (MYCOSTATIN) cream Apply to affected area twice daily. cyclobenzaprine (FLEXERIL) 10 mg tablet Take 1 tablet by mouth every 8 hours as needed for muscle spasm. for pain or spasms. furosemide (LASIX) 20 mg tablet Take 1 tablet by mouth once daily. NEEDED No current facility-administered medications on file prior to visit. Social History Social History Tobacco Use Smoking status: Former Packs/day: 0.50 Years: 2.00 Pack years: 1.00 Types: Cigarettes Quit date: 05/01/1979 Years since quittin.9 Smokeless tobacco: Never Vaping Use Vaping Use: Never used Substance Use Topics Alcohol use: Not Currently Comment: socially Drug use: No EXAM: BP 140/80 Pulse 78 Resp 16 Wt (!) 157.6 kg (347 lb 8 oz) BMI 56.09 kg/m General Appearance: Well appearing, alert, in no acute distress, well-hydrated, well nourished. andMorbidly obese. Skin: drainage, red ulceration to the inner left thigh, purulent drainage. Health Maintenance List HEPATITIS B(1 of 3 - 3-dose series) Never done DTAP,TDAP,TD(1 - Tdap) Never done SHINGRIX VACCINE(1 of 2) Never done COVID-19 VACCINE(3 - Booster for Pfizer series) due on 10/01/2020 DEPRESSION ASSESSMENT Never done BP CONTROLLED (<130/80) due on 09/29/2021 DILATED RETINAL EXAM due on 11/13/2021 MAMMOGRAM due on 11/30/2021 URINE ALBUMIN:CREATININE RATIO due on 12/07/2021 DIABETIC FOOT EXAM due on 04/09/2022 PNEUMOCOCCAL(2 - PCV) due on 04/09/2022 HBA1C due on 07/12/2022 LDL CHOLESTEROL due on 01/12/2023 ANNUAL PCP TEAM CHRONIC DISEASE VISIT due on 01/18/2023 COLORECTAL CANCER SCREENING due on 01/21/2025 INFLUENZA Completed HEPATITIS C SCREENING Completed PAP TESTING Discontinued HPV TESTING Discontinued HIV SCREENING Discontinued Data reviewed None ASSESSMENT/PLAN: 1. Boil of groin - ICD9: 680.2, ICD10: L02.224 (primary diagnosis) Left side Start Doxycycline 100 mg BID x 10 days 2. Dizziness - ICD9: 780.4, ICD10: R42 Continue to monitor, if continues after antibiotics are completed notify office Drink plenty of fluids Change positions slowly Follow up as planned; shira if symptoms persist. I agree with the Chief Complaint, ROS, and Past Histories independently gathered by the clinical ground support equipment mechanic and the remaining scribed note accurately describes my personal service to the patient. Medical Decision Making: Problems: Low: Acute, uncomplicated illness or injury Risk: Moderate: Drug management Medical Decision Making Level: 3 - Low Milka Mas MD The documentation for this note was completed by Pinky Dawkins Ma acting as scribe for Milka Mas MD. March 21, 2022 4:03 PM. Pinky Dawkins Ma documented in this encounterMer[facility]-21-[facility]22 Miscellaneous Notes* Telephone Encounter - Pinky Dawkins Ma - 03/21/2022 3:28 PM EST Pt accepted appt today at 4 PM for cyst to knee * Telephone Encounter - Pinky Dawkins Ma - 03/21/2022 3:17 PM EST Offered appt today at 4 PM with PCP. Awaiting response. documented in this encounterMercy [facility]11-16-2022 History of Present illness Narrative* Blaise Mcginnis PT - 03/16/2022 3:13 PM EST Episode Visit Count: 1 Therapist That Will Accept/Oversee The Plan Of Care: Blaise Mcginnis PT Start of Care Date: 03/16/22 Onset Date: 05/19/21 Plan of Care Certification Date: 03/16/22 Next Certification Due Date: 04/27/22 Patient Identified by Name and Date of : Yes REHABILITATION AND SPORTS THERAPY PHYSICAL THERAPY EVALUATION PLAN OF CARE: Assessment: Morena Martinez presents with chief complaint of L shoulder and upper arm pain that interferes with sleeping;reaching behind back;reaching overhead;lifting . She presents with impairments in ADL's, independence in exercise, overall function, range of motion, strength , symptom management, and tissue tenderness. Prognosis for therapy is Good due to: current objective clinical presentation;positive past response to therapy;Prognosis may be limited due to chronic nature of impairments. She will benefit from skilled therapy services to meet the goals established for this plan of care as noted below. Goals for Episode of Care: created on 03/16/22 through 04/27/22 [place] in home exercise program. Patient will decrease pain rating by 2 points to meet minimal clinical important difference for numeric pain rating scale. Patient will increase active ROM of L shoulder to symmetrical to allow pt to to improve performanceof ADLs. Perform sleeping, reaching and lifting with L UE with decreased report of symptoms/pain in 6 weeks. Increased strength of L UE to WFL and symmetrical with dynamometer for improved lifting with L UE Patient Goals: decrease pain Planned Interventions, Frequency, and Duration: Current Frequency: 1x/week Duration: 6 weeks Total Number of Visits Planned: 6 Planned Treatment Interventions: Therapeutic exercise (38278);Manual therapy ([id number]);Self-care homemanagement ([id number]);Patient/Family/Caregiver Education;Body Mechanics Training PLAN FOR NEXT VISIT: Continue with stretching and strengthening therex for L shoulder to facilitateimproved functional use of L UE without causing increased pain. Progress to tolerance. Consider useof US to L shoulder sub AC region with 50% pulsed duty cycle initially. Patient demonstrates good understanding of plan of care and treatment. The above goals and plan of care were discussed and agreed upon by patient/family. SUBJECTIVE: Morena Martinez is a 57 year old female seen today for constant pain in lateral left upper arm that varies in intensity without explanation. She reports that the pain in lateral left upper arm was present pre-operatively and has not changed at all. She reports that her left shoulder is functioning well but pain in left lateral upper arm is persistent and unchanged. She feels that her L shoulder function has reached it's maximum potential for this stage of her recovery. Patient Goals: decrease pain Functional Limitations: sleeping;reaching behind back;reaching overhead;lifting Prior Level of Function: Independent with restrictions Independent with the following restrictions: limited reaching behind back prior to onset Relevant History Right or Left Handed: Right Employment: Unemployed Hobbies / Interests: crocheting, photography Home Environment Patient Lives With: Spouse Assistance Available: PRN Intake Information: Prescription present Previous Treatment: Surgery ;Injections ;Pain Management ;Physical Therapy Pain: Pain Pain Level: (1-2/10 on average) Pain Location: Upper Arm - Left Description: Dull;Aching (heavy) Frequency: Continuous (but varies in intensity) Detailed Pain Score: Yes Worst Pain Level: 6 Average Pain Level: 2 Best Pain Level: 1 Post Treatment Pain Post Treatment Pain Level: No Change PROMIS Scales T-scores: mean of general population = 50. 5 points is clinically meaningfully difference Percentiles provide an indication of how the patient's score ranks in relation to the general population. Higher percentile rankings indicate better function/quality of life. 50th percentile is the average of the general population and indicates half of respondents had a worse score. T-scores: mean of general population = 50. 5 points is clinically meaningfully difference Percentiles provide an indication of how the patient's score ranks in relation to the general population. Higher percentile rankings indicate better function/quality of life. 50th percentile is the average of the general population and indicates half of respondents had a worse score. OBJECTIVE MEASURES WITH LEVEL OF FUNCTION: Posture / Alignment Posture: Forward head;Increased thoracic kyphosis;Rounded shoulders Shoulder Observations L Shoulder Palpation Tenderness: Bicipital groove (sub AC soft tissues and lateral L upper arm) UE AROM R UE AROM: seated L UE AROM: seated R Shoulder Extension: 70 Degrees R Shoulder Flex: 155 Degrees R Shoulder ABduction: 162 Degrees L Shoulder Extension: 60 Degrees L Shoulder Flex: 119 Degrees L Shoulder ABduction: 116 Degrees L Shoulder Internal Rotation (Functional): 29cm less than R reaching behind back L Shoulder External Rotation (Functional): 18cm less than R reaching behind head UE and Cervical Strength Strength Tested: Shoulder Dynamometer Testing Dynamometer Strength R Shoulder Standing Scaption (lbs): 14.2 ft/lbs R Shoulder Standing Abduction (lbs): 16.1 ft/lbs R Shoulder Standing External Rotation (lbs): 13.1 ft/lbs R Shoulder Standing Internal Rotation (lbs): 16.2 ft/lbs L Shoulder Standing Scaption (lbs): 14.3 ft/lbs L Shoulder Standing Abduction (lbs): 14.4 ft/lbs L Shoulder Standing External Rotation (lbs): 10.1 ft/lbs L Shoulder Standing Internal Rotation (lbs): 9.1 ft/lbs R IR:ER Ratio (%) : 123.66 L IR:ER Ratio (%): 90.1 Special Tests - Cervical Cervical Special Tests: Cervical Compression;Cervical Distraction;Spurling Cervical Compression: Negative Cervical Distraction: Negative Spurling: Right Negative;Left Negative Special Tests - Shoulder Shoulder Special Tests: Empty Can;Harkins-Jorge Empty Can: Left Positive (pain but not distinct weakness) Harkins-Jorge: Left Negative Education: Education Learning Preferences: Demonstration;Explanation;Performance;Printed Materials Barriers: None Learning/educational needs: Procedure / Surgery;Home exercise program;Plan of Care;Posture;Body Mechanics Education Provided: Yes, see treatment interventions for education provided Education Provided To: Patient Education Mode/Type: Demonstration;Explanation/Discussion;Literature/Printed Materials;Performance Response to Education/Teach Back: States/Identifies;Return Demonstration;Requires Review/AdditionalEducation TREATMENT: PT Treatment Interventions: Therapeutic Exercise Evaluation Therapeutic Exercise: 1: Pt was educated on findings of evaluation, comparison to d/c status, anatomy of L shoulder, likely source of symptoms and rationale for proposed plan. She was encouraged to continue using pain as her guide at all times with exercise and activity. Modality options explained. 2: *seated L shoulder AAROM with rope and roel for flexion 2x10 3: *seated L shoulder AAROM with rope and roel for abduction 2x10 4: *standing rope and roel L shoulder IR AAROM behind back 2x10 Skilled Intervention: Patient was educated in proper exercise technique and purpose for exercises. Reviewed and educated patient on additions/changes for home exercise program as above (*). Skilled judgment was provided in selection of appropriate interventions. Provided written instruction for home exercise program to facilitate proper performance and compliance. Correct performance of therapeutic exercises was facilitated with verbal, visual, and tactile cuing. Billing * Evaluation Moderate Complexity: 1 Unit Therapeutic Exercise Treatment Minutes: 15 Total Treatment Time Minutes (timed/untimed): 45 Blaise Mcginnis PT documented in this encounterMer[facility]11-11-2022 History of Present illness Narrative* Autumn Morse, RT(R) - 03/11/2022 10:20 AM EST Radiology Service Progress Note PATIENT NAME: Morena Martinez DATE OF SERVICE: March 11, 2022 TIME: 10:13 AM PATIENT IDENTITY VERIFICATION COMPLETED USING TWO (2) IDENTIFIERS: Name and Date of confirmedby patient verbally. FALL SCREENING: Has the patient had 2 falls in the last year or 1 fall with injury or currently using an Ambulatory Assistive Device (Walker, Cane, Wheelchair, Crutches, etc.)? No PATIENT GENDER DATA: Female. status: : No status: NO. PATIENT RELEVANT IMPLANT DATA REVIEWED: Yes RADIOLOGY DEPARTMENT: General X-ray: Exam(s) Completed: Lower Extremity X- Ray(s): Foot, Right and Wt. Bearing PERIPHERAL IV DATA: Not applicable SIGNED BY: RT Marty(R) March 11, 2022 10:13 AM documented in this encounterMercy [facility]11-10-2022 History of Present illness Narrative* Lisette Banks, - 03/10/2022 9:34 AM EST Follow Up Visit Chief Complaint Morena Martinez is a 57 year old female who presents today for follow up office visit. Patient presents with: Left Shoulder - Post Op: 6 mo arthroscopy History of Present Illness PAIN EVALUATION 03/10/2022 0919 Pain Level: 1 Pain Location: Shoulder-Left Description: Aching;Sharp Duration Amount of Time: 6 Duration Units: Months Frequency: Continuous HPI: Morena Martinez is a 57 year old female for a follow up visit left shoulder pain. Pain history is noted as above. Denies calf pain, numbness, tingling, fever, chills or other constitutional symptoms. Doing better, has good days and achey days. No changes in meds or med history. Is there any overall improvement in your condition? Yes, Any new injury, since being seen last: No REVIEW OF SYMPTOMS: Patient did not have, and does not currently have, any weight loss, malaise, fever, chills, headache, chest pain, chest pressure, palpitations, cough, shortness of breath, orthopnea, paroxsymal nocturnal dyspnea, nausea, vomiting, diarrhea, constipation, melena, hematochezia, urinary difficulties, prolonged bleeding, easily bruising, heat or cold intolerance, new onset joint pain or swelling, newonset extremity weakness or numbness, new onset auditory or visual disturbances, lightheadedness, dizziness, partial loss of consciousness or full loss of consciousness. Current Outpatient Medications Medication Sig lisinopril (ZESTRIL, PRINIVIL) 10 mg tablet Take 1 tablet by mouth once daily. acetaminophen-codeine (TYLENOL-CODEINE #3) 300-30 mg per tablet Take 1 tablet by mouth twice daily as needed for pain for up to 90 days. furosemide (LASIX) 40 mg tablet Take 1 tablet by mouth once daily. atenolol (TENORMIN) 50 mg tablet Take 50 mg in the AM, 25 mg in the PM tiZANidine (ZANAFLEX) 4 mg tablet Take 1 tablet by mouth every 6 hours as needed. JANUVIA 100 mg tablet Take 1 tablet by mouth once daily. warfarin (COUMADIN) 5 mg tablet 7.5 mg daily gabapentin (NEURONTIN) 300 mg capsule Take 1 capsule by mouth daily at bedtime for 180 days. nystatin (MYCOSTATIN) cream Apply to affected area twice daily. cyclobenzaprine (FLEXERIL) 10 mg tablet Take 1 tablet by mouth every 8 hours as needed for muscle spasm. for pain or spasms. furosemide (LASIX) 20 mg tablet Take 1 tablet by mouth once daily. NEEDED No current facility-administered medications for this visit. Physical Exam Vitals: There were no vitals taken for this visit. Psych: Pleasant, good affect and mood General Appearance: Well appearing, alert, in no acute distress, well-hydrated, well nourished.. Skin: Skin color, texture, turgor normal, no suspicious rashes or lesions. Peripheral Pulses: Normal. Neurologic: Gait normal. Reflexes normal and symmetric. Sensation grossly intact.. Lymph Nodes: No cervical lymphadenopathy, No supraclavicular lymphadenopathy, No axillary lymphadenopathy., and No inguinal lymphadenopathy.. Respiratory: No recent pulmonary infection, hemoptysis, chronic cough, or shortness of breath at rest Rheumatologic: Joint deformities: left shoulder follow up Ortho Exam Assessment and Plan Radiographs: No imaging to review. Last MRI Shoulder - Impression Only MRI SHOULDER [facility] Exam End: 07/14/2021 2:12 PM (Final result) Impression: IMPRESSION: Rotator cuff and long head biceps tendinosis without high-grade tear. Mild glenohumeral and acromioclavicular degenerative changes. Small joint effusion. ... Impression: Encounter Diagnosis ICD-10-CM 1. Bursitis of left shoulder M75.52 2. Pain in right foot M79.671 XR FOOT GENERAL 3V AP/LAT/OBL RIGHT Today, in detail, through a thorough evaluation, we discussed possible etiologies of pain and our plans for further diagnostic and therapeutic interventions. We discussed strategies for decreasing pain and improving strength, stability and motion. Patient's questions were answered in detailed. Patient verbalizes understanding and agrees with the treatment plan as discussed. Tendinitis Pt ultrasound for left shoulder Discussed length of time to heal Discussed getting ultrasound of left arm, will see if PT helps, if not will order us of left upper arm for further eval Patient aware and in agreement of plan. All questions answered. C/o right foot pain, will get xrays and call with results Lisette Banks DO * Imani Hogan RN - 03/10/2022 9:17 AM EST Patient presents with: Left Shoulder - Post Op: 6 mo arthroscopy AMB ROOMING INTAKE FLOWSHEET DATA Pain Pain Level: 1 Pain Location: Shoulder-Left Description: Aching, Sharp Duration Amount of Time: 6 Duration Units: Months Frequency: Continuous documented in this encounterMer[facility]11-07-2022 Miscellaneous Notes* Telephone Encounter - Pinky Dawkins Ma - 03/07/2022 11:42 AM EST The following approved medication requests have been transmitted electronically. Requested Prescriptions Signed Prescriptions Disp Refills lisinopril (ZESTRIL, PRINIVIL) 10 mg tablet 90 tablet 3 Sig: Take 1 tablet by mouth once daily. Authorizing Provider: MILKA MAS Ma * Telephone Encounter - Milka Mas MD - 03/07/2022 9:34 AM EST OK to refill as ordered Milka Mas MD documented in this encounterMercy [facility]11-01-2022 Miscellaneous Notes* Telephone Encounter - Jovanny Peralta [facility] - 03/01/2022 3:02 PM EDT [facility] Anticoagulation Episode Summary Anticoagulation Care Providers Provider Role Specialty Phone number Milka Mas MD Family Medicine [phone] Morena Martinez is a 57 year old year old female patient being evaluated today for a Telemanagement visit. Patient is currently on the following anticoagulant(s) Warfarin. Labs PT INR (no units) Date Value 01/23/2022 2.9 11/30/2021 3.1 biotel 08/03/2021 1.9 biotel INR Home CoaguChek (no units) Date Value 03/01/2022 3.4 02/06/2022 2.5 01/23/2022 2.9 Hemoglobin (g/dL) Date Value 04/09/2021 15.2 Hematocrit (%) Date Value 04/09/2021 46.7 Platelet Count (k/uL) Date Value 04/09/2021 299 Creatinine (mg/dL) Date Value 01/12/2022 0.74 07/01/2021 0.76 03/23/2021 0.60 12/07/2020 0.62 04/01/2020 0.70 Bilirubin, Total (mg/dL) Date Value 01/12/2022 0.7 12/07/2020 0.6 ALT (U/L) Date Value 01/12/2022 17 12/07/2020 33 AST (U/L) Date Value 01/12/2022 25 12/07/2020 35 Estimated Creatinine Clearance: 128.5 mL/min (based on SCr of 0.74 mg/dL). ALLERGIES Allergen Reactions Augmentin [Amoxicil* Other: See Comments Adverse effect, developed yeast infection Bextra [Valdecoxib] Swelling Ankle swelling Celebrex [Celecoxib] Swelling ankle swelling Erythromycin Rash Latex Lovenox [Enoxaparin* Rash Vioxx [Rofecoxib] Swelling ankle swelling Voltaren [Diclofena* Swelling ankle swelling Indication for Warfarin: Anticoagulation Episode Summary Current INR goal: 2.0-3.0 Assessment: INR result of 3.4 is SUPRAtherapeutic due to: No obvious cause Patient denies any medication changes, grapefruit/cranberry ingestion, OTC/herbal/nutritional supplement use, accidental over dosage, changes in warfarin tablet color/shape/restaurant busser, eating less green vegetables, recent illness/fever/nausea/vomiting/diarrhea, increased edema/SOB, or ETOH consump tion. Plan: Current Warfarin Dosing As of 02/28/2022 Full warfarin instructions: 03/01: 2.5 mg; Otherwise 7.5 mg every day Called and spoke to patient/caregiver Advised patient to decrease dose for 1 day only then resume weekly regimen Next home INR check scheduled on 03/07/2022 Patient verbalizes understanding of the plan. Jovanny Peralta RPh Clinical Pharmacist, Pharmacy Anticoagulation Clinic Pharmacy Anticoagulation Clinic Pager: [phone]. * Telephone Encounter - Manas Richter RPh - 02/28/2022 2:35 PM EDT Patient was due to test INR today. Will continue to monitor for results. documented in this encounterMercy [facility]10-19-2022 Miscellaneous Notes* Telephone Encounter - Catrachito Serna Ma - 02/16/2022 1:50 PM EDT Pt notified via [email or web address]. Catrachito Serna Ma * Telephone Encounter - Milka Mas MD - 02/16/2022 12:35 PM EDT OK to refill as ordered Milka Mas MD * Telephone Encounter - Catrachito Serna Ma - 02/16/2022 9:[address] Mas see pt message. Pt has been receiving Rx of Tylenol w/Codeine since October from Ortho. Catrachito Serna Ma * Telephone Encounter - Catrachito Serna Ma - 02/15/2022 8:10 AM EDT Last Rx: 10/20/21 #60 w/2. documented in this encounterMercy [facility]10-17-2022 History of Present illness Narrative* Melissa Harrington MA - 02/14/2022 2:28 PM EDT POPULATION HEALTH NAVIGATION OUTREACH Action/FYI left message on machine to return call [employer] message sent to patient Pt identified by name and : NO Outreach Outcome/Action Unable to reach patient: Left message CMEhart message sent Did you use a PCP flex slot to schedule this appointment? N/A Reason for Outreach Care Gap or Scheduling/Wellness visits Payer: Payor: [employer] MEDICARE / Plan: [employer] MEDICARE PPO / Product Type: PPO / Care Gap Reviewed:: Breast Cancer screening Diabetic Eye Exam Reminder: Reminder note to check Health Maintenance for items below Health Maintenance items due: HEPATITIS B(1 of 3 - 3-dose series) Never done DTAP,TDAP,TD(1 - Tdap) Never done SHINGRIX VACCINE(1 of 2) Never done COVID-19 VACCINE(3 - Booster for Pfizer series) due on 10/01/2020 DEPRESSION ASSESSMENT Never done BP CONTROLLED (<130/80) due on 09/29/2021 DILATED RETINAL EXAM due on 11/13/2021 MAMMOGRAM due on 11/30/2021 URINE ALBUMIN:CREATININE RATIO due on 12/07/2021 Message Sent to Practice: No Navigation Signature: Melissa Harrington MA February 14, 2022 2:28 PM documented in this encounterMercy Health [facility]10-07-2022 History of Present illness Narrative* Lisa Arboleda PA-C - 02/04/2022 7:53 AM EDT Images from the original note were not included. Rheumatology CONSULTATION Referring Provider: Lisette Banks Date of Service: 02/04/2022 Gender: female Ethnicity: White Age: [age] year old Chief Complaint: Joint Pain (B Hips, B Hands, B Shoulders, B Thumbs, B Knees, Spine) Last Rheumatology visit: 02/04/2022 (with Lisa Arboleda) Morena Martinez is a 57 year old White female who presents on 02/04/2022 for in person visit for evaluation of Joint Pain (B Hips, B Hands, B Shoulders, B Thumbs, B Knees, Spine). Morena is RF negative - 9 (02/04/2022). 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 Even in her childhood, she had knee pain. She does have pain every day, but some days worse than others. Today is not too bad of a day Ever since her L shoulder repair in 06/2021 she has had more stiffness everywhere. She was put on steroids at that time and this helped her joint pain. Overall mornings are her worst time of day in knees, shoulders, hands. She states after sitting fora while she has gelling phenomenon in her knees. Hands feel really stiff. She also admits chronic back pain for years. She has never noticed any obvious swelling in her joints. Morning stiffness lasts about 1 hour. No one inciting event or injury for her joint pain She takes tylenol #3 at nighttime and tizanidine at night to help her sleep. She gets this from herprimary care provider. Doesn't help that much. Not sleeping well all night. RHEUMATOLOGIC REVIEW OF SYSTEMS: No ulcers in mouth or nose No photosensenitivity + history of blood clots - PE then DVT No miscarriages - had 2 healthy normal pregnancies + fatigue - Diagnosed with chronic fatigue and fibromyalgia- started after Morris diagnosis in 40s No history of Raynaud's No fevers currently (Previously says she would get them) - gets hot sensation with sweating No bright red painful eyes No sicca No sob No cough + diarrhea, + constipation - IBS, goes both ways + chronic back pain No history of psoriasis + morning stiffness No weight loss No neuropathy Family History Sister had lupus and arthritis Mom arthritis No RA, IBD, PsO Nonsmoker No ETOH use No other drug use. She doesn't work - on disability due to her knee issues in the past and arthritis. 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 - Get in and out of bed? - Walk outdoors? - Wash and dry body? - Get in and out of car? - RAPID 3 Disease Activity Weighed Score Levels: 0 - 1: Near Remission 1.3 - 2.0: Low Severity 2.3 - 4.0: Moderate Severity 4.3 - 10.0: High Severity No flowsheet data found. PROMIS Assessments No flowsheet data found.No flowsheet data found.No flowsheet data found.No flowsheet data found. PAIN EVALUATION 02/04/2022 0809 Pain Level: 1 Pain Location: -- B Hips, B hands, B thumbs, B knees, Spine, B shoulders Description: Aching Painful Duration Units: Unknown Years Intervention/Comfort measure: Medication;Heat Comments: Tyl #3 -- doesn't help though Treatment History Relevant Previous Investigations CBC Latest Ref Rng & Units 06/25/2018 06/24/2019 01/07/2020 04/09/2021 WBC 3.70 - 11.00 k/uL 7.26 5.21 5.91 7.49 HEMOGLOBIN 11.5 - 15.5 g/dL 14.8 14.6 14.8 15.2 HEMOGLOBIN, GIO 11.5 - 15.5 g/dL - - - - HEMATOCRIT 36.0 - 46.0 % 46.2(H) 46.8(H) 46.0 46.7(H) PLATELETS 150 - 400 k/uL 305 273 244 299 ABS NEUT (ANC) 1.45 - 7.50 k/uL - - 3.59 4.56 ABS NEUT, GIO 1.45 - 7.50 k/uL - - - - ABS LYMP, GIO 1.00 - 4.00 k/uL - - - - ABS LYMPH 1.00 - 4.00 k/uL - - 1.83 2.34 CMP Latest Ref Rng & Units 12/07/2020 03/23/2021 07/01/2021 01/12/2022 SODIUM 136 - 144 mmol/L 139 140 137 141 SODIUM, GIO 132 - 148 mmol/L - - - - SODIUM, GIO 132 - 148 mmol/L - - - - POTASSIUM 3.7 - 5.1 mmol/L 4.5 3.8 3.9 4.6 POTASSIUM, GIO 3.5 - 5.0 mmol/L - - - - CHLORIDE 97 - 105 mmol/L 102 103 99 104 CHLORIDE, GIO 98 - 110 mmol/L - - - - CO2 22 - 30 mmol/L 25 27 27 27 CO2, GIO 23.0 - 32.0 mmol/L - - - - GLUCOSE 74 - 99 mg/dL 168(H) 146(H) 117(H) 139(H) GLUCOSE, GIO 65 - 100 mg/dL - - - - BUN 7 - 21 mg/dL 13 13 20 12 BUN, GIO 10 - 25 mg/dL - - - - CREATININE 0.58 - 0.96 mg/dL 0.62 0.60 0.76 0.74 CREATININE, GIO 0.7 - 1.4 mg/dL - - - - CALCIUM, GIO 8.5 - 10.5 mg/dL - - - - CALCIUM, TOTAL 8.5 - 10.2 mg/dL 9.4 9.7 9.6 9.7 AST 13 - 35 U/L 35 - 20 25 AST, GIO 7 - 40 U/L - - - - ALT 7 - 38 U/L 33 - 21 17 ALT, GIO 0 - 45 U/L - - - - ALKALINE PHOSPHATASE 34 - 123 U/L 65 - 64 68 ESR, WSR Latest Ref Rng & Units 02/24/2009 02/04/2022 WSR 0 - 20 mm/hr - 23(H) SED RATE, GIO 0 - 20 mm/hr 12 - CRP Latest Ref Rng & Units 02/04/2022 CRP <0.9 mg/dL 0.7 CK Latest Ref Rng & Units 02/04/2022 CK 42 - 196 U/L 83 RF and CCP Latest Ref Rng & Units 02/04/2022 RHEUMATOID FACTOR <16 IU/mL <10 Hepatitis Screen Latest Ref Rng & Units 12/07/2020 HEPCABEIA Negative Negative Antibodies Latest Ref Rng & Units 08/03/2021 11/30/2021 01/23/2022 02/04/2022 DOOR FRAMER ANTIBODY QUAL Negative - - - Negative SSA ANTIBODY QUAL Negative - - - Negative TAPAN-1 ANTIBODY, IGG <1.0 AI - - - <0.2 TAPAN 1 ANTIBODY QUAL Negative - - - Negative RIBOSOMAL DOOR FRAMER AB <1.0 AI - - - <0.2 RIBOSOMAL DOOR FRAMER QUAL Negative - - - Negative ANTI-SSA <1.0 AI - - - <0.2 ANTI-SSB <1.0 AI - - - <0.2 ANTI-SM <1.0 AI - - - <0.2 SM ANTIBODY Negative - - - Negative SCL-70 AB QUAL Negative - - - Negative SCL-70 ABS, EIA <1.0 AI - - - <0.2 CENTROMERE AB <1.0 AI - - - <0.2 CENTROMERE AB QUAL Negative - - - Negative CHROMATIN AB <1.0 AI - - - <0.2 CHROMATIN AB QUAL Negative - - - Negative PT SEC 9.7 - 13.0 sec - - - - PT INR - 1.9 biotel 3.1 biotel 2.9 - CARDIOLIPIN AB, IGG 0 - 9 GPL - - - - CARDIOLIPIN AB, IGM 0 - 11 MPL - - - - CARDIOLIPIN AB, IGA 0 - 11 APL - - - - Urinalysis Latest Ref Rng & Units 08/17/2015 02/13/2017 04/04/2017 01/20/2018 PROTEIN, URINE Neg mg/dL trace trace neg - PROTEIN UA (POCT) Negative mg/dL - - - Negative RBC, URINE, GIO /hpf - - - - Imaging / Studies Last XR Hand/Finger - Impression Only XR HAND GENERAL 3V PA/LAT/OBL RT Collected: 01/09/2017 11:13 AM (Final result) Impression: IMPRESSION: No acute findings in the bilateral hands. Thermospray Operator: SHRUTHI Transcribe Date/Time: Jan 13 2017 12:27P Dictated by : FOZIA GRIGGS MD ... Last MRI Hand - Impression Only No resulted procedures found. Last XR Chest - Impression Only XR CHEST 2V FRONTAL/LAT Exam End: 06/25/2018 10:54 AM (Final result) Impression: IMPRESSION: No developing abnormality or acute process. Thermospray Operator: SHRUTHI Transcribe Date/Time: Jun 25 2018 12:45P ... Last XR Cervical Spine - Impression Only No resulted procedures found. Review of Systems ROS RHEUMATOLOGYAll other reviewed and negative other than HPI. Problem List ACTIVE PROBLEM LIST Allergic Rhinitis, Cause Unspecified Diverticulosis of Colon (Without Mention of Hemorrhage) Irritable Bowel Syndrome Migraine, Unspecified, With Intractable Migraine, So Stated, Without Mention of Status Migrainosus Other Disorders of Bladder Diffuse Cystic Mastopathy Localized Osteoarthrosis Not Specified Whether Primary Or Secondary, Other Specified Sites Other and Unspecified Disc Disorder of Unspecified Region Esophageal Reflux Embolism and Thrombosis (Hcc) Restless Legs Syndrome (Rls) Essential Hypertension, Benign Routine Gynecological Examination Class 3 Severe Obesity Due to Excess Calories With Serious Comorbidity and Body Mass Index (Bmi) of50.0 to 59.9 in Adult (Hcc) Knee Pain S/P Total Knee Replacement Patellar Instability of Right Knee 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 Use of Blood Thinners Mcc (Current) Use of Anticoagulants Chronic Midline Low Back Pain Without Sciatica Type 2 Diabetes Mellitus Without Complication, Without Long-Term Current Use of Insulin ([facility]) Leg Swelling Former Smoker Post-Operative Pain Acute Pain of Left Shoulder Bursitis of Left Shoulder Tendinitis of Left Shoulder Past Medical History PAST MEDICAL HISTORY Diagnosis Date Blood dyscrasia 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 Diffuse cystic mastopathy Diverticulosis of colon (without mention of hemorrhage) Diverticulosis DVT of leg (deep venous thrombosis) (HCC) Right leg Hypertension Irritable bowel syndrome Localized osteoarthrosis not specified whether primary or secondary, other specified sites RT KNEE Migraine, unspecified, with intractable migraine, so stated, without mention of status migrainosus Migraine Obesity, unspecified Osteoarthritis of right knee Other and unspecified disc disorder of unspecified region Intervertebral disc disorders Other disorders of bladder Personal history of colonic polyps 01/21/2015 PMH - PAST MEDICAL HISTORY OF 1989 Pulmonary Embolism Past Surgical History PAST SURGICAL HISTORY Procedure Laterality Date ANESTH DIAGNOSTIC ARTHROSCOPIC PROC KNEE JOINT 1994 LT KNEE ANESTH DIAGNOSTIC ARTHROSCOPIC PROC KNEE JOINT 1994 RT KNEE APPENDECTOMY ARTHRODESIS CMC JNT THUMB W/WO FIX Right 02/21/2018 ARTHROSCOPY KNEE DIAGNOSTIC W/WO SYNOVIAL BX SPX 2008 Right knee ARTHRP KNE CONDYLE&PLATU MEDIAL&LAT COMPARTMENTS Right 06/27/2011 CHOLECYSTECTOMY Cholecystectomy COLONOSCOPY FLX DX W/COLLJ SPEC WHEN PFRMD 01/21/2015 Repeat 2024 I/D PERIANAL ABSCESS, SUPERFICIAL 08/31/2011 LIG/TRNSXJ FLP TUBE ABDL/VAG APPR UNI/BI REDUCTION OF LARGE BREAST Breast reduction REPAIR ANAL FISTULA W/NICHELLE 12/09/2011 REPAIR OF SHOULDER Left 08/2021 Dr Banks RPR UMBILICAL HRNA 5 YRS/> REDUCIBLE Hernia repair, umbilical >5yr, x2 with mesh TOTAL ABDOMINAL HYSTERECT W/WO RMVL TUBE OVARY Hysterectomy, ARIELLE [place] ECTOPIC W/O SALPING&/OOPHORECTOMY Ectopic Family History FAMILY HISTORY Problem Relation Age of Onset Heart Father [place] age 50, sudden Breast Cancer Mother Coronary Artery Disease Brother Quadruple by-pass age 50 Coronary Artery Disease Sister IA late 30's Stroke Sister other (Other) Brother pulmonary embolism other (Other) Sister pulmonary embolism Heart Sister heart attack age 50, stent Diabetes Sister older sister; obese Social History Social History Tobacco Use Smoking status: Former Packs/day: 0.50 Years: 2.00 Pack years: 1.00 Types: Cigarettes Quit date: 05/01/1979 Years since quittin.7 Smokeless tobacco: Never Vaping Use Vaping Use: Never used Substance Use Topics Alcohol use: Not Currently Comment: socially Drug use: No Medications Current Outpatient Medications Medication Sig furosemide (LASIX) 40 mg tablet Take 1 tablet by mouth once daily. atenolol (TENORMIN) 50 mg tablet Take 50 mg in the AM, 25 mg in the PM tiZANidine (ZANAFLEX) 4 mg tablet Take 1 tablet by mouth every 6 hours as needed. JANUVIA 100 mg tablet Take 1 tablet by mouth once daily. warfarin (COUMADIN) 5 mg tablet 7.5 mg daily gabapentin (NEURONTIN) 300 mg capsule Take 1 capsule by mouth daily at bedtime for 180 days. nystatin (MYCOSTATIN) cream Apply to affected area twice daily. lisinopril (ZESTRIL, PRINIVIL) 10 mg tablet Take 1 tablet by mouth once daily. cyclobenzaprine (FLEXERIL) 10 mg tablet Take 1 tablet by mouth every 8 hours as needed for muscle spasm. for pain or spasms. furosemide (LASIX) 20 mg tablet Take 1 tablet by mouth once daily. NEEDED No current facility-administered medications for this visit. Physical Exam BP 132/61 Pulse 73 Temp 96 Resp 18 Ht 5' 6 (1.68m) Wt 345 lb (156.5kg) SpO2 99% BMI 55.71 kg/(m^2). Physical Exam Constitutional: General: She is not in acute distress. Appearance: Normal appearance. She is obese. She is not ill-appearing or toxic-appearing. HENT: Head: Normocephalic and atraumatic. Eyes: General: No scleral icterus. Conjunctiva/sclera: Conjunctivae normal. Cardiovascular: Rate and Rhythm: Normal rate and regular rhythm. Pulses: Normal pulses. Heart sounds: Normal heart sounds. Pulmonary: Effort: Pulmonary effort is normal. Breath sounds: Normal breath sounds. No stridor. No wheezing or rales. Musculoskeletal: Cervical back: Normal range of motion and neck supple. No tenderness. Lymphadenopathy: Cervical: No cervical adenopathy. Skin: General: Skin is warm and dry. Findings: No rash. Neurological: General: No focal deficit present. Mental Status: She is alert. Mental status is at baseline. Psychiatric: Mood and Affect: Mood normal. Behavior: Behavior normal. Thought Content: Thought content normal. Judgment: Judgment normal. Joint Exam 02/04/2022 Right Left Glenohumeral Tender Elbow Tender Tender MCP 1 Tender IP Tender PIP 3 Tender PIP 5 Tender MTP 1 Tender MTP 2 Tender MTP 3 Tender MTP 4 Tender MTP 5 Tender The following joints were examined and normal: Left Sternoclavicular, Right Sternoclavicular, Left Acromioclavicular, Right Acromioclavicular, Right Glenohumeral, Left Wrist, Right Wrist, Left MCP 1, Left MCP 2, Right MCP 2, Left MCP 3, Right MCP3, Left MCP 4, Right MCP 4, Left MCP 5, Right MCP 5, Left IP, Left PIP 2, Right PIP 2, Left PIP 3, Left PIP 4, Right PIP 4, Left PIP 5, Left Knee, Right Knee, Left Ankle, Right Ankle, Left MTP 1, Left MTP 2, Left MTP 3, Left MTP 4, Left MTP 5 Impression Diagnoses: (M25.50) Pain in joint, multiple sites (primary encounter diagnosis) (M51.36) DDD (degenerative disc disease), lumbar (M06.4) Inflammatory polyarthropathy (HCC) Hepatitis B Antibody test: Negative (12/07/2020) Morena Martinez is very pleasnt a 57 year old female with PMH of DMT2 and History of DVT and PE (2 separate incidences), & fibromyalgia now on chronic anticoagulation here for widespread joint pain. 1/ Polyarthralgia - With morning stiffness,flares following surgical procedures with stiffness, NO joint swelling and + good response to prednisone. + Family history of sister with lupus. Given her symptoms, will evaluate further for inflammatory arthritis. I feel she likely has multifactorial joint pain. One component includes mechanical/osteoarthritis especially in her back pain. I doubt her back pain is inflammatory based on her history and past imaging with DDD, and her weight is also likely a contributor.. While optimal management for this would typically be NSAIDs, her anticoagulant use limits this. Prednisone use must be limited due to her diabetes. She has not tried any PT or procedural interventions for her back pain. The widespread joint/muscle and malaise and fatigue is likely more consistent with her underlying fibromyalgia. Her L shoulder stiffness seems to be related to her surgical arthroscopic repair. Plan Check labs for inflammatory arthritis. -SONAM BY IFA SCREEN: -DNA AB DS + CONF BLD: -ANTI LIV ID: -RHEUMATOID FACTOR BL: -CCP ANTIBODY IGG: -SED RATE WESTERGREN: -C-REACTIVE PROTEIN (CRP): -CK CREATINE KINASE: -CONSULT TO RHEUM/IMMUN DISEASE: Consider water therapy and pain management for chronic low back pain Patient is not interested in pain medications, but would like to pursue interventions.. Weight loss may help back pain. Could also consider integrative medicine consult for her joint pain. Continue fibromyalgia management with PCP - Consider addition of SNRI per clinical course For osteoarthritis symptoms, optimize topicals and tylenol. Avoid NSAID with Chronic anticoagulant use Follow up in rheumatology TBD based on results. No follow-ups on file. Consultation requested by Dr. Lisette Banks for an opinion regarding inflammatory polyarthropathy. and my final recommendations will be communicated back to the requesting physician by way ofshared medical record or letter by US mail. I spent a total of 65 minutes on the date of the service which included preparing to see the patient, [id number] patient care, completing clinical documentation, obtaining and/or reviewing separately obtained history, performing a medically appropriate examination, counseling and educating the pat ient/family/caregiver, and ordering medications, tests, or procedures. Lisa Arboleda PA-C cc: PCP: Milka Mas [address] [place] [address] Medical Decision Making: Medical Decision Making Level: 1 - N/A documented in this encounter[facility] Miscellaneous Notes* Telephone Encounter - Manas Richter RPh - 01/24/2022 7:18 AM EDT Home INR result received. PT INR (no units) Date Value 01/23/2022 2.9 documented in this encounterMer[facility]-20-[facility]22 History of Present illness Narrative* Milka Mas MD - 01/18/2022 9:20 AM EDT Chief Complaint Patient presents with: 6 Month Exam Immunizations: Flu vaccination HPI Morena Martinez is a 56 year old female who presents here today for 6 month follow up. Denies any bowel, Gi, or urinary issues. Lipid: Not taking any medications, trying to watch diet and exercise. She states her diet and activity has not changed. She thinks she is allergic to Pork, she gets sick from her, seems to be any type of pork product. DM: Denies checking BS at home, no hypoglycemic episodes, no neuropathy sx. Taking Januvia 100 mg daily. Sleep & Anxiety: has a hard time falling asleep at night, she notices that her anxiety seems toworse in the fall and winter months. Suggested using benadryl OTC. A-fib: Taking coumadin, dosage and INR managed by Pharmacist. HTN: Checking BP at home, readings WNL. No chest pains, dizziness, or SOB. Taking Atenolol 50 mg Nevaeh, 25 mg in PM and Lisinopril 20 mg daily. Pain: Taking zanaflex prn, Flexeril 10 mg prn, Gabapentin 300 mg at bedtime, and Tylenol #3 1 pill BID. Pt has been following with Dr. Banks for right leg pain. She feels she is doing well, had a flare up of Sciatica but that is improving. Skin: has some redness and hot, discomfort, swelling, to the groin/abdomen area off and on, can last up to 2 weeks. She has nystatin cream to use for yeast infection to the abdomen area. It does not improve with laying down. It is always in the same area. Edema: Edward legs; controlled with Lasix 20 mg-40 mg as needed. Past medical history, appointments, medications, allergies reviewed. 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 Diffuse cystic mastopathy Diverticulosis of colon (without mention of hemorrhage) Diverticulosis DVT of leg (deep venous thrombosis) (HCC) Right leg Hypertension Irritable bowel syndrome Localized osteoarthrosis not specified whether primary or secondary, other specified sites RT KNEE Migraine, unspecified, with intractable migraine, so stated, without mention of status migrainosus Migraine Obesity, unspecified Osteoarthritis of right knee Other and unspecified disc disorder of unspecified region Intervertebral disc disorders Other disorders of bladder Personal history of colonic polyps 01/21/2015 PMH - PAST MEDICAL HISTORY OF 1989 Pulmonary Embolism Previous Surgical History PAST SURGICAL HISTORY Procedure Laterality Date ANESTH DIAGNOSTIC ARTHROSCOPIC PROC KNEE JOINT 1994 LT KNEE ANESTH DIAGNOSTIC ARTHROSCOPIC PROC KNEE JOINT 1994 RT KNEE APPENDECTOMY ARTHRODESIS CMC JNT THUMB W/WO FIX Right 02/21/2018 ARTHROSCOPY KNEE DIAGNOSTIC W/WO SYNOVIAL BX SPX 2007 Right knee ARTHRP KNE CONDYLE&PLATU MEDIAL&LAT COMPARTMENTS Right 06/27/2011 CHOLECYSTECTOMY 1979' Cholecystectomy COLONOSCOPY FLX DX W/COLLJ SPEC WHEN PFRMD 01/21/2015 Repeat 2024 I/D PERIANAL ABSCESS, SUPERFICIAL 5-2-12 LIG/TRNSXJ FLP TUBE ABDL/VAG APPR UNI/BI REDUCTION OF LARGE BREAST Breast reduction REPAIR ANAL FISTULA W/NICHELLE 12/09/11 RPR UMBILICAL HRNA 5 YRS/> REDUCIBLE Hernia repair, umbilical >5yr, x2 with mesh TOTAL ABDOMINAL HYSTERECT W/WO RMVL TUBE OVARY Hysterectomy, ARIELLE [place] ECTOPIC W/O SALPING&/OOPHORECTOMY Ectopic Family History FAMILY HISTORY Problem Relation Age of Onset Heart Father [place] age 50, sudden Breast Cancer Mother Coronary Artery Disease Brother Quadruple by-pass age 50 Coronary Artery Disease Sister IA late 30's Stroke Sister other (Other) Brother pulmonary embolism other (Other) Sister pulmonary embolism Heart Sister heart attack age 50, stent Diabetes Sister older sister; obese Patient Allergies ALLERGIES Allergen Reactions Augmentin [Amoxicil* Other: See Comments Adverse effect, developed yeast infection Bextra [Valdecoxib] Swelling Ankle swelling Celebrex [Celecoxib] Swelling ankle swelling Erythromycin Rash Latex Lovenox [Enoxaparin* Rash Vioxx [Rofecoxib] Swelling ankle swelling Voltaren [Diclofena* Swelling ankle swelling Current Medications Current Outpatient Medications on File Prior to Visit Medication Sig atenolol (TENORMIN) 50 mg tablet Take 50 mg in the AM, 25 mg in the PM tiZANidine (ZANAFLEX) 4 mg tablet Take 1 tablet by mouth every 6 hours as needed. methylPREDNISolone (MEDROL, LEÓN,) 4 mg Dose-Pack Take by mouth as directed on package acetaminophen-codeine (TYLENOL-CODEINE #3) 300-30 mg per tablet Take 1 tablet by mouth twice daily as needed for pain for up to 90 days. JANUVIA 100 mg tablet Take 1 tablet by mouth once daily. warfarin (COUMADIN) 5 mg tablet 7.5 mg daily gabapentin (NEURONTIN) 300 mg capsule Take 1 capsule by mouth daily at bedtime for 180 days. furosemide (LASIX) 40 mg tablet Take 1 tablet by mouth once daily. zolpidem (AMBIEN) 5 mg tablet Take 1 tablet by mouth at bedtime as needed (for insomnia.) for up to7 days. nystatin (MYCOSTATIN) cream Apply to affected area twice daily. lisinopril (ZESTRIL, PRINIVIL) 10 mg tablet Take 1 tablet by mouth once daily. cyclobenzaprine (FLEXERIL) 10 mg tablet Take 1 tablet by mouth every 8 hours as needed for muscle spasm. for pain or spasms. furosemide (LASIX) 20 mg tablet Take 1 tablet by mouth once daily. NEEDED No current facility-administered medications on file prior to visit. Social History Social History Tobacco Use Smoking status: Former Packs/day: 0.50 Years: 2.00 Pack years: 1.00 Types: Cigarettes Quit date: 05/01/1979 Years since quittin.7 Smokeless tobacco: Never Vaping Use Vaping Use: Never used Substance Use Topics Alcohol use: Not Currently Comment: socially Drug use: No EXAM: BP 140/80 Pulse 78 Resp 18 Wt (!) 156.3 kg (344 lb 9.6 oz) BMI 54.79 kg/m General Appearance: Well appearing, alert, in no acute distress, well-hydrated, well nourished. andMorbidly obese. Skin: right side lower abd pannus with thickened skin. Lungs: Lungs clear to auscultation. No wheezing, rhonchi, rales.. Heart: RRR without murmur, gallop, or rubs. No ectopy. Health Maintenance List HEPATITIS B(1 of 3 - 3-dose series) Never done DTAP,TDAP,TD(1 - Tdap) Never done SHINGRIX VACCINE(1 of 2) Never done COVID-19 VACCINE(3 - Booster for Pfizer series) due on 01/06/2021 BP CONTROLLED (<130/80) due on 09/29/2021 DILATED RETINAL EXAM due on 11/13/2021 MAMMOGRAM due on 11/30/2021 URINE ALBUMIN:CREATININE RATIO due on 12/07/2021 DEPRESSION SCREENING due on 12/24/2021 INFLUENZA(1) due on 12/30/2021 DIABETIC FOOT EXAM due on 04/09/2022 PNEUMOCOCCAL(2 - PCV) due on 04/09/2022 ANNUAL PCP TEAM CHRONIC DISEASE VISIT due on 07/09/2022 HBA1C due on 07/12/2022 LDL CHOLESTEROL due on 01/12/2023 COLORECTAL CANCER SCREENING due on 01/21/2025 HEPATITIS C SCREENING Completed PAP TESTING Discontinued HPV TESTING Discontinued HIV SCREENING Discontinued Data reviewed Appointment on 01/12/2022 Component Date Value Protein, Total 01/12/2022 7.3 Albumin 01/12/2022 4.3 Calcium, Total 01/12/2022 9.7 Bilirubin, Total 01/12/2022 0.7 Alkaline Phosphatase 01/12/2022 68 AST 01/12/2022 25 ALT 01/12/2022 17 Glucose 01/12/2022 139 (A) BUN 01/12/2022 12 Creatinine 01/12/2022 0.74 Sodium 01/12/2022 141 Potassium 01/12/2022 4.6 Chloride 01/12/2022 104 CO2 01/12/2022 27 Anion Gap 01/12/2022 10 Estimated Glomerular Jeffry* 01/12/2022 95 Hemoglobin A1C 01/12/2022 6.3 (A) Estimated Average Glucose 01/12/2022 134 Cholesterol, Total 01/12/2022 191 Triglyceride 01/12/2022 119 HDL Cholesterol 01/12/2022 50 Non HDL Cholesterol 01/12/2022 141 (A) Fasting Time 01/12/2022 14 VLDL Cholesterol 01/12/2022 24 TC:HDL Ratio 01/12/2022 3.82 LDL Cholesterol 01/12/2022 117 (A) LDL:HDL Ratio 01/12/2022 2.34 Results Only on 01/02/2022 Component Date Value INR Home CoaguChek 01/02/2022 1.9 (A) Results Only on 12/17/2021 Component Date Value INR Home CoaguChek 12/17/2021 1.6 (A) Telephone on 11/23/2021 Component Date Value PT INR 11/30/2021 3.1 biotel ASSESSMENT/PLAN: 1. Type 2 diabetes mellitus without complication, without long-term current use of insulin ([facility]) - ICD9: 250.00, ICD10: E11.9 (primary diagnosis) Controlled. - Continue current medications 2. Need for influenza vaccination - ICD9: V04.81, ICD10: Z23 - INFLUENZA VACCINE QUADRIVALENT 6 MO - 64 YRS IM 3. Essential hypertension, benign - ICD9: 401.1, ICD10: I10 - suboptimal control - Continue current medication(s) - Recommended regular aerobic exercise. - Recommend home blood pressure monitoring, to bring results in on next visit - Goal of BP <130/80 4. Class 3 severe obesity due to excess calories with serious comorbidity and body mass index (BMI)of 50.0 to 59.9 in adult (HCC) - ICD9: 278.01, V85.43, ICD10: E66.01, Z68.43 Stable Recommend healthy diet and exercise 5. FPC (current) use of anticoagulants - ICD9: V58.61, ICD10: Z79.01 Continue current medications. 6. Skin irritation - ICD9: 709.9, ICD10: R23.8 Recommend using Hydrocortisone Cream prn 7. NELSON (generalized anxiety disorder) - ICD9: 300.02, ICD10: F41.1 Recommend using Benadryl or Tylenol PM 8. Sleeping difficulty - ICD9: 780.50, ICD10: G47.9 Recommend using Benadryl or Tylenol PM Follow up in 6 months with fasting labs prior. I agree with the Chief Complaint, ROS, and Past Histories independently gathered by the clinical ground support equipment mechanic and the remaining scribed note accurately describes my personal service to the patient. Medical Decision Making: Problems: Moderate: 2+ stable chronic illnesses Data: Unique test result(s) reviewed: 3+ Unique test(s) ordered: 3+ Risk: Moderate: Drug management Medical Decision Making Level: 4 - Moderate Milka Mas MD The documentation for this note was completed by Pinky Dawkins Ma acting as scribe for Milka Mas MD. January 18, 2022 9:12 AM. Pinky Dawkins Ma documented in this encounterMer[facility]09-06-[facility] History of Present illness Narrative* Blaise Mcginnis PT - 01/04/2022 1:13 PM EDT Episode Visit Count: 24 Therapist That Will Oversee The Plan Of Care: Blaise Mcginnis PT Start of Care Date: 09/16/21 Onset Date: 05/19/21 Plan of Care Certification Date: 12/17/21 Next Certification Due Date: 01/28/22 Patient Identified by Name and Date of : Yes [facility] PHYSICAL THERAPY DISCONTINUANCE OF CARE PLAN OF CARE UPDATE: Assessment: Morena Martinez is discontinued from Physical Therapy services due to Patient/Clinician mutual decision to discontinue current plan of care. and all approved visits have been utilized .Patient was seen for 24 visits from Start of Care Date: 09/16/21 to 01/04/2022 and treatment included: Therapeutic exercise, Neuromuscular re-education, Manual therapy, Self-assisted management, and Patient/Family/Caregiver Education. Updated: 10/04/21 and 11/02/21 and 11/25/21 and 12/17/21 and 01/04/22 Goals for Episode of Care: created on 09/16/21 through 12/09/21 [place] in home exercise program. - MET Patient will decrease pain to 0/10 at rest and with functional activities to allow patient to improve all prior functional activities. - partially met Patient will increase active ROM of L shoulder to WFL and symmetrical to allow pt to to improve performance of ADLs. - partially met Patient will demonstrate increase in L shoulder/UE strength to 5/5 during manual muscle testing in order to improve function for basic self-care tasks, home management tasks, leisure / recreation skills and prior functional tasks. - partially met Perform all prior functional tasks without pain. - partially met Improve postural awareness. - MET Patient Goals: regain prior functional status. - partially met, improving SUBJECTIVE: Patient Reason for Visit: Pt reports that overall since evaluation she is feeling way better. She reports soreness currently that she attributes to intentional increased use of L UE lately, especially home care physical therapist. She reports decreased pain and increased use of L UE. She reports improved reaching and lifting ability with L UE. She reports functional improvements with dressing and bathroom duties. She denies any pain to start today and reports compliance with HEP 2x day most days. Pain: Pain Pain Level: 0 Pain Location: Shoulder - Left Description: (no pain to start today) Frequency: Intermittent Post Treatment Pain Post Treatment Pain Level: No Change Post Treatment Pain Location: Shoulder - Left Post Treatment Pain Description: (fatigue only) Post Treatment Symptoms: Pt did not report any significant change in symptoms following today's session. PROMIS Scales T-scores: mean of general population = 50. 5 points is clinically meaningfully difference Percentiles provide an indication of how the patient's score ranks in relation to the general population. Higher percentile rankings indicate better function/quality of life. 50th percentile is the average of the general population and indicates half of respondents had a worse score. T-scores: mean of general population = 50. 5 points is clinically meaningfully difference Percentiles provide an indication of how the patient's score ranks in relation to the general population. Higher percentile rankings indicate better function/quality of life. 50th percentile is the average of the general population and indicates half of respondents had a worse score. OBJECTIVE MEASURES WITH LEVEL OF FUNCTION: UE AROM L UE AROM: seated and standing L Shoulder Extension: 60 Degrees L Shoulder Flex: 134 Degrees L Shoulder ABduction: 127 Degrees L Shoulder Internal Rotation (Functional): 36cm less than right reaching behind back L Shoulder External Rotation (Functional): 15cm less than right reaching behind head UE and Cervical Strength L Shoulder Extension: 4-/5 L Shoulder Flexion: 4-/5 L Shoulder Abduction (C5): 4/5 L Shoulder Internal Rotation: 5/5 L Shoulder External Rotation: 4+/5 TREATMENT: Therapeutic Exercise: 1: UBE UEs only seat #8 x6 minutes to tolerance (Subjective taken during this time) 2: *seated roel AAROM for L shoulder flexion 2x10 in pain-free range. (rope and roel provided for home use) 3: *seated roel AAROM for L shoulder scaption 2x10 in pain-free range. 4: Left shoulder ABC's reaching to tolerance A-Z x2 with 2# weight 5: *Standing roel L hand behind back 2x10 reps 6: supine PROM with stretching of L shoulder for flexion, abduction, ER and IR. 2x10 each 7: Left shoulder towel wall slides flexion 2x10 2# weight 8: Bodyblade L arm at side blade horizontal up and down 2x30 seconds 9: bodyblade L elbow flexed 90 degrees, blade vertical, side to side 2x30 seconds 10: L UE 5 on the wall with 2# weight on wrist 1-5 3x30 seconds 11: standing rope and roel for L shoulder ER elbow flexed 90 degrees and upper arm at side 2x10 12: orange t-band strengthening for L shoulder flexion, extension, abduction, IR and ER 1x10 each as review. (Green band provided for future progression of HEP) 13: Re-assessment results were reviewed wth patient and used as rationale for d/c recommendations. HEP was reviewed and continuation encouraged to tolerance. Pt was educated on how and when to progress strengthening HEP. Skilled Intervention: Patient was educated in proper exercise technique and purpose for exercises. Reviewed and educated patient on additions/changes for home exercise program as above (*). Skilled judgment was provided in selection of appropriate interventions. Provided written instruction for home exercise program to facilitate proper performance and compliance. Correct performance of therapeutic exercises was facilitated with verbal, visual, and tactile cuing. Patient education as noted. Billing Therapeutic Exercise Treatment Minutes: 45 Total Treatment Time Minutes (timed/untimed): 45 Blaise Mcginnis PT documented [facility] History of Present illness Narrative* Blaise Mcginnis PT - 12/30/2021 11:33 AM EDT Episode Visit Count: 23 Therapist That Will Oversee The Plan Of Care: Blaise Mcginnis PT Start of Care Date: 09/16/21 Onset Date: 05/19/21 Plan of Care Certification Date: 12/17/21 Next Certification Due Date: 01/28/22 Patient Identified by Name and Date of : Yes REHABILITATION AND SPORTS THERAPY PHYSICAL THERAPY TREATMENT NOTE ASSESSMENT: Morena Martinez tolerated the session with fatigue, expected muscle soreness, and no issues. She demonstrated difficulty with intermittent pain and limited ROM and improvements in ROM and exercise tolerance. The patient will continue to benefit from ongoing skilled physical therapy toprogress toward set goals, for reassessment by supervising therapist, and to continue with post-operative protocol . PLAN FOR NEXT VISIT: Progress per protocol and review PNE concepts prn. Continue with passive stretching to tolerance. Re-assess for plan of care update. SUBJECTIVE: Patient Reason for Visit: Pt reports that overall she has been worse since last week when she strained her L shoulder getting out of the car. She reports that she has had increased pain and decreased motion in L shoulder since aggravation last week. She reports compliance with HEP 2x day. She denies any pain to start today. Pain: Pain Pain Level: 0 Pain Location: Shoulder - Left Description: (no pain to start) Frequency: Intermittent Post Treatment Pain Post Treatment Pain Level: 0 Post Treatment Pain Location: Shoulder - Left Post Treatment Pain Description: (fatigue) Post Treatment Symptoms: Pt reported pain during therex session but after session she denied any pain and rated symptoms 0/10 OBJECTIVE MEASURES WITH LEVEL OF FUNCTION: TREATMENT: Therapeutic Exercise: 1: UBE UEs only seat #8 x6 minutes to tolerance (Subjective taken during this time) 2: seated roel AAROM for L shoulder flexion 2x10 in pain-free range. 3: seated roel AAROM for L shoulder scaption 2x10 in pain-free range. 4: Left shoulder ABC's reaching to tolerance A-Z x2 with 2# weight 5: Standing roel L hand behind back 2x10 reps 6: supine PROM with stretching of L shoulder for flexion, abduction, ER and IR. 2x10 each 7: Left shoulder towel wall slides flexion 2x10 2# weight 8: Bodyblade L arm at side blade horizontal up and down 3x30 seconds 9: bodyblade L elbow flexed 90 degrees, blade vertical, side to side 3x30 seconds 10: L UE 5 on the wall with 2# weight on wrist 1-5 3x30 seconds 11: standing rope and roel for L shoulder ER elbow flexed 90 degrees and upper arm at side 2x10 12: seated with L UE on ball, rolling for flexion and abduction 2x15 each Skilled Intervention: Patient was educated in proper exercise technique and purpose for exercises. Skilled judgment was provided in selection of appropriate interventions. Correct performance of therapeutic exercises was facilitated with verbal, visual, and tactile cuing. Billing Therapeutic Exercise Treatment Minutes: 43 Total Treatment Time Minutes (timed/untimed): 43 Blaise Mcginnis PT documented in this encounterMer[facility]-25-2022 Miscellaneous Notes* Telephone Encounter - Milka Mas MD - 12/23/2021 11:57 AM EDT OK to refill as ordered Milka Mas MD * Telephone Encounter - Catrachito Serna Ma - 12/23/2021 10:25 AM EDT Last OV: 07/09/21 Next OV: 01/18/22 Last Rx: 12/30/20 #135 w/3. Catrachito Serna Ma documented in this encounterMer[facility]08-19-2022 History of Present illness Narrative* Blaise Mcginnis PT - 12/17/2021 3:00 PM EDT Episode Visit Count: 21 Therapist That Will Oversee The Plan Of Care: Blaise Mcginnis PT Start of Care Date: 09/16/21 Onset Date: 05/19/21 Plan of Care Certification Date: 12/17/21 Next Certification Due Date: 01/28/22 Patient Identified by Name and Date of : Yes REHABILITATION AND SPORTS THERAPY PHYSICAL THERAPY PROGRESS REPORT PLAN OF CARE UPDATE: Assessment: Morena Martinez demonstrates moderate improvement in applying seat belt, reaching behind back, reaching overhead, use hand with arm at shoulder level, dressing, and grooming. She hasprogressed toward goals. Patient continues to present with impairments in ADL's, independence in exercise, overall function, range of motion, strength , and symptom management that interfere with . Current prognosis is Good due to: positive past response to therapy;current objective clinical presentation. She will benefit from continued skilled therapy services to meet the updated goals for this planof care as noted below. Updated: 10/04/21 and 11/02/21 and 11/25/21 and 12/17/21 Goals for Episode of Care: created on 09/16/21 through 12/09/21 [place] in home exercise program. - partially met, will continue and progress to tolerance Patient will decrease pain to 0/10 at rest and with functional activities to allow patient to improve all prior functional activities. - partially met, will continue Patient will increase active ROM of L shoulder to WFL and symmetrical to allow pt to to improve performance of ADLs. - partially met, will continue Patient will demonstrate increase in L shoulder/UE strength to 5/5 during manual muscle testing in order to improve function for basic self-care tasks, home management tasks, leisure / recreation skills and prior functional tasks. - partially met, will continue Perform all prior functional tasks without pain. - partially met, will continue Improve postural awareness. - met, will monitor Patient Goals: regain prior functional status. - partially met, will continue Planned Interventions, Frequency, and Duration: 2x/week, 6 weeks Total Number of Visits Planned: 12 Patient to be seen for Therapeutic exercise (76787);Manual therapy (42193);Self- assisted management (24712);Patient/Family/Caregiver Education;Body Mechanics Training;Neuromuscular re-education (93802);Therapeutic activities (50323) PLAN FOR NEXT VISIT: Progress per protocol and review PNE concepts prn. Continue with passive stretching to tolerance. SUBJECTIVE: Patient Reason for Visit: Pt reports that overall she is getting better and making progress. She reports that pain is less and ROM is increased. Because of these improvements, overall function is improved with L UE. She reports decreased use of medication and significantly less pain at mid-brachium. She does report increased pain the past two days without explanation. She reports compliance with HEP 2x day. Functionally she reports improvements with dressing and applying her seat belt.. Pain: Pain Pain Level: 0 Pain Location: Shoulder - Left Description: (no pain to start today) Frequency: Intermittent Post Treatment Pain Post Treatment Pain Level: No Change Post Treatment Pain Location: Shoulder - Left Post Treatment Pain Description: (fatigue) Post Treatment Symptoms: After session, pt reported fatigue from a good workout but denied any increase in pain. PROMIS Scales T-scores: mean of general population = 50. 5 points is clinically meaningfully difference Percentiles provide an indication of how the patient's score ranks in relation to the general population. Higher percentile rankings indicate better function/quality of life. 50th percentile is the average of the general population and indicates half of respondents had a worse score. T-scores: mean of general population = 50. 5 points is clinically meaningfully difference Percentiles provide an indication of how the patient's score ranks in relation to the general population. Higher percentile rankings indicate better function/quality of life. 50th percentile is the average of the general population and indicates half of respondents had a worse score. OBJECTIVE MEASURES WITH LEVEL OF FUNCTION: UE AROM L UE AROM: seated L Shoulder Extension: 57 Degrees L Shoulder Flex: 132 Degrees L Shoulder ABduction: 120 Degrees L Shoulder Internal Rotation (Functional): 38cm less than R reaching behind back L Shoulder External Rotation (Functional): 13cm less than R reaching behind head UE PROM L UE PROM: empty end feel during supine PROM UE and Cervical Strength L UE Strength: MMT deferred but functional weakness persists with limited AROM. TREATMENT: Therapeutic Exercise: 1: UBE UEs only seat #8 x6 minutes to tolerance (Subjective taken during this time) 2: seated roel AAROM for L shoulder flexion 2x10 in pain-free range. 3: seated roel AAROM for L shoulder scaption 2x10 in pain-free range. 4: Left shoulder ABC's reaching to tolerance A-Z x2 with 2# weight 5: Standing roel L hand behind back 2x10 reps 6: supine PROM with stretching of L shoulder for flexion, abduction, ER and IR. 2x10 each 7: Left shoulder towel wall slides flexion 3x10 2# weight 8: Bodyblade L arm at side blade horizontal up and down 3x30 seconds 10: bodyblade L elbow flexed 90 degrees, blade vertical, side to side 3x30 seconds 11: L UE 5 on the wall with 2# weight on wrist 1-5 3x30 seconds Skilled Intervention: Patient was educated in proper exercise technique and purpose for exercises. Skilled judgment was provided in selection of appropriate interventions. Correct performance of therapeutic exercises was facilitated with verbal, visual, and tactile cuing. Patient education as noted. Billing Therapeutic Exercise Treatment Minutes: 45 Total Treatment Time Minutes (timed/untimed): 45 Blaise Mcginnis PT documented in this encounterMer[facility]08-16-[facility]22 History of Present illness Narrative* Blaise Mcginnis PT - 12/14/2021 11:54 AM EDT Episode Visit Count: 20 Therapist That Will Oversee The Plan Of Care: Blaise Mcginnis PT Start of Care Date: 09/16/21 Onset Date: 05/19/21 Plan of Care Certification Date: 11/25/21 Next Certification Due Date: 12/23/21 Patient Identified by Name and Date of : Yes REHABILITATION AND SPORTS THERAPY PHYSICAL THERAPY TREATMENT NOTE ASSESSMENT: Morena Martinez tolerated the session with fatigue, expected muscle soreness, and no issues. She demonstrated difficulty with intermittent pain and limited ROM in L shoulder. The patient will continue to benefit from ongoing skilled physical therapy to progress toward set goals and tocontinue with post-operative protocol . PLAN FOR NEXT VISIT: Progress per protocol and review PNE concepts prn. Continue with passive stretching to tolerance. SUBJECTIVE: Patient Reason for Visit: Pt reports that her overall condition is unchanged. She reports that L shoulder function is no better and no worse. She denies any pain to start today. She appreciates the PROM done in PT but she reports that her shoulder is more stiff lately. Pain: Pain Pain Level: 0 Pain Location: Shoulder - Left Description: (no pain to start today) Frequency: Intermittent Post Treatment Pain Post Treatment Pain Level: No Change Post Treatment Pain Location: Shoulder - Left Post Treatment Pain Description: Sore (tired but no increase in pain) Post Treatment Symptoms: After session she reported fatigue and soreness but she denied any increase in pain. OBJECTIVE MEASURES WITH LEVEL OF FUNCTION: TREATMENT: Therapeutic Exercise: 1: UBE UEs only seat #8 x6 minutes to tolerance (Subjective taken during this time) 2: seated roel AAROM for L shoulder flexion 2x10 in pain-free range. 3: seated roel AAROM for L shoulder scaption 2x10 in pain-free range. 4: Left shoulder ABC's reaching to tolerance A-Z x2 with 1.5# weight 5: Standing roel L hand behind back 2x10 reps 6: supine PROM with stretching of L shoulder for flexion, abduction, ER and IR. 2x10 each 7: Left shoulder towel wall slides flexion 3x10 8: Bodyblade L arm at side blade horizontal up and down 3x30 seconds 10: bodyblade L elbow flexed 90 degrees, blade vertical, side to side 3x30 seconds 11: L UE 5 on the wall with 1.5# weight on wrist 1-5 3x30 seconds Skilled Intervention: Patient was educated in proper exercise technique and purpose for exercises. Skilled judgment was provided in selection of appropriate interventions. Correct performance of therapeutic exercises was facilitated with verbal, visual, and tactile cuing. Patient education as noted. Billing Therapeutic Exercise Treatment Minutes: 45 Total Treatment Time Minutes (timed/untimed): 45 Blaise Mcginnis PT documented in this encounterMer[facility]08-11-[facility] History of Present illness Narrative* Blaise Mcginnis PT - 12/09/2021 10:21 AM EDT Episode Visit Count: 19 Therapist That Will Oversee The Plan Of Care: Blaise Mcginnis PT Start of Care Date: 09/16/21 Onset Date: 05/19/21 Plan of Care Certification Date: 11/25/21 Next Certification Due Date: 12/23/21 Patient Identified by Name and Date of : Yes REHABILITATION AND SPORTS THERAPY PHYSICAL THERAPY TREATMENT NOTE ASSESSMENT: Morena Martinez tolerated the session with no issues. She demonstrated difficulty with passive stretching with increase pain intermittently and no lasting pain when done with stretching. The patient will continue to benefit from ongoing skilled physical therapy to progress toward set goals. PLAN FOR NEXT VISIT: Progress per protocol and review PNE concepts prn. Continue with passive stretching to tolerance. SUBJECTIVE: Patient Reason for Visit: Patient reports the left shoulder is a little sore with no ratable pain. She reports difficulty sleeping last night. Pain: Pain Pain Level: 0 Pain Location: Shoulder - Left Description: Sore Frequency: Intermittent Post Treatment Pain Post Treatment Pain Level: No Change Post Treatment Symptoms: fatigue only with no pain OBJECTIVE MEASURES WITH LEVEL OF FUNCTION: TREATMENT: Therapeutic Exercise: 1: UBE UEs only seat #8 x6 minutes to tolerance (Subjective taken during this time) 2: seated roel AAROM for L shoulder flexion 2x10 in pain-free range. 3: seated roel AAROM for L shoulder scaption 2x10 in pain-free range. 4: Left shoulder ABC's reaching to tolerance A-Z x2 with 1.5# weight 5: Standing roel L hand behind back 2x10 reps 6: supine PROM with stretching of L shoulder for flexion, abduction, ER and IR. 2x10 each with a 30second stretch at the end of each set of 10 to tolerance. 7: Left shoulder towel wall slides flexion 3x10 8: Bodyblade L arm at side blade horizontal up and down 2x30 seconds 10: bodyblade L elbow flexed 90 degrees, blade vertical, side to side 2x30 seconds 11: L UE 5 on the wall with 1.5# weight on wrist 1-5 3x30 seconds Skilled Intervention: Patient was educated in proper exercise technique and purpose for exercises. Skilled judgment was provided in selection of appropriate interventions. Correct performance of therapeutic exercises was facilitated with verbal cuing. Billing Therapeutic Exercise Treatment Minutes: 45 Total Treatment Time Minutes (timed/untimed): 45 MANSOOR Charles PT documented in this encounterMer[facility]08-03-2022 History of Present illness Narrative* Lisette Banks, - 12/01/2021 11:46 AM EDT Images from the original note were not included. Follow Up Visit Chief Complaint Morena Martinez is a 56 year old female who presents today for follow up office visit. Patient presents with: Left Shoulder - Post Op, Pain History of Present Illness PAIN EVALUATION 12/01/2021 1144 Pain Level: 0 Pain Location: Shoulder-Left Description: Aching;Stiffness Duration Amount of Time: DOS: 08/31/21 Frequency: Intermittent Intervention/Comfort measure: Reposition;Relaxation;Cold;Medication;Other: See comment medrol dose pack HPI: Morena Martinez is a 56 year old female for a follow up visit S/P Left shoulder arthroscopy,rotator cuff repair, subacromial decompression/acromioplasty.Patient is doing well. Recently finished MDP which gave some relief. Complains of stiffness in shoulder. Pain history is noted as above. Is there any overall improvement in your condition? Yes, decreased pain Any new injury, since being seen last: No REVIEW OF SYMPTOMS: Patient did not have, and does not currently have, any weight loss, malaise, fever, chills, headache, chest pain, chest pressure, palpitations, cough, shortness of breath, orthopnea, paroxsymal nocturnal dyspnea, nausea, vomiting, diarrhea, constipation, melena, hematochezia, urinary difficulties, prolonged bleeding, easily bruising, heat or cold intolerance, new onset joint pain or swelling, newonset extremity weakness or numbness, new onset auditory or visual disturbances, lightheadedness, dizziness, partial loss of consciousness or full loss of consciousness. Current Outpatient Medications Medication Sig tiZANidine (ZANAFLEX) 4 mg tablet Take 1 tablet by mouth every 6 hours as needed. acetaminophen-codeine (TYLENOL-CODEINE #3) 300-30 mg per tablet Take 1 tablet by mouth twice daily as needed for pain for up to 90 days. JANUVIA 100 mg tablet Take 1 tablet by mouth once daily. warfarin (COUMADIN) 5 mg tablet 7.5 mg daily gabapentin (NEURONTIN) 300 mg capsule Take 1 capsule by mouth daily at bedtime for 180 days. furosemide (LASIX) 40 mg tablet Take 1 tablet by mouth once daily. nystatin (MYCOSTATIN) cream Apply to affected area twice daily. lisinopril (ZESTRIL, PRINIVIL) 10 mg tablet Take 1 tablet by mouth once daily. cyclobenzaprine (FLEXERIL) 10 mg tablet Take 1 tablet by mouth every 8 hours as needed for muscle spasm. for pain or spasms. atenolol (TENORMIN) 50 mg tablet Take 50 mg in the AM, 25 mg in the PM furosemide (LASIX) 20 mg tablet Take 1 tablet by mouth once daily. NEEDED methylPREDNISolone (MEDROL, LEÓN,) 4 mg Dose-Pack Take by mouth as directed on package zolpidem (AMBIEN) 5 mg tablet Take 1 tablet by mouth at bedtime as needed (for insomnia.) for up to7 days. No current facility-administered medications for this visit. Physical Exam Vitals: There were no vitals taken for this visit. Psych: Pleasant, good affect and mood General Appearance: Well appearing, alert, in no acute distress, well-hydrated, well nourished.. Skin: Skin color, texture, turgor normal, no suspicious rashes or lesions. Peripheral Pulses: Normal. Neurologic: Gait normal. Reflexes normal and symmetric. Sensation grossly intact.. Lymph Nodes: No cervical lymphadenopathy, No supraclavicular lymphadenopathy, No axillary lymphadenopathy. and No inguinal lymphadenopathy.. Respiratory: No recent pulmonary infection, hemoptysis, chronic cough, or shortness of breath at rest Rheumatologic: Joint deformities: Left shoulder pain Ortho Exam.mr Assessment and Plan Radiographs: No imaging to review. Impression: Encounter Diagnosis ICD-10-CM 1. Inflammatory polyarthropathy (HCC) M06.4 CONSULT TO RHEUM/IMMUN DISEASE 2. Acute pain of left shoulder M25.512 3. Bursitis of left shoulder M75.52 4. S/P shoulder surgery Z98.890 Today, in detail, through a thorough evaluation, we discussed possible etiologies of pain and our plans for further diagnostic and therapeutic interventions. We discussed strategies for decreasing pain and improving strength, stability and motion. Patient's questions were answered in detailed. Patient verbalizes understanding and agrees with the treatment plan as discussed. inflamed today as cold night last night and had better day yesterday Rheumatology consult Needs to be on inflammatory meds but diff bc of blood thinners, home life is straining, etc Did discuss if she didn't regain ROM would be candidate for CLAU of left shoulder Back flair up so deferred water PT for now sent note to blaise about inflammatory oa and patient to be seen by RA specialist documented in this encounterMer[facility]07-29-2022 Miscellaneous Notes* Telephone Encounter - Byron Jolley APRN.REFINERY OPERATOR [facility] [facility] - 11/26/2021 11:50 AM EDT The following approved medication requests have been transmitted electronically. Pending Prescriptions Disp Refills TIZANIDINE 4 MG TABLET 30 tablet 5 Sig: Take 1 tablet by mouth every 6 hours as needed. JAISON: No Byron Jolley APRN.REFINERY OPERATOR [facility] * Telephone Encounter - Enedelia Madrid LPN - 11/26/2021 11:47 AM EDT Patient phones requesting refills as follows: Pending Prescriptions Disp Refills TIZANIDINE 4 MG TABLET 30 tablet 5 Sig: Take 1 tablet by mouth every 6 hours as needed. JAISON: No JEROME-01/18/22 Labs-07/09/21 NOV-none med filled 06/01/21 ends 11/28/21 Please review and advise. Enedelia Madrid LPN documented in this encounter[facility] History of Present illness Narrative* Blaise Mcginnis PT - 11/25/2021 2:55 PM EDT Episode Visit Count: 17 Therapist That Will Oversee The Plan Of Care: Blaise Mcginnis PT Start of Care Date: 09/16/21 Onset Date: 05/19/21 Plan of Care Certification Date: 11/25/21 Next Certification Due Date: 12/23/21 Patient Identified by Name and Date of : Yes REHABILITATION AND SPORTS THERAPY PHYSICAL THERAPY PROGRESS REPORT PLAN OF CARE UPDATE: Assessment: Morena Martinez demonstrates difficulty with lifting and reaching behind back and improvements in reaching overhead, use hand with arm at shoulder level, dressing and grooming. She has progressed toward goals. Patient continues to present with impairments in ADL's, independence in exercise, overall function, range of motion, strength and symptom management that interfere with . Current prognosis is Good due to: positive past response to therapy;current objective clinical presentation. She will benefit from continued skilled therapy services to meet the updated goals for this plan of care as noted below. Updated: 10/04/21 and 11/02/21 and 11/25/21 Goals for Episode of Care: created on 09/16/21 through 12/09/21 [place] in home exercise program. - partially met, will continue and progress to tolerance Patient will decrease pain to 0/10 at rest and with functional activities to allow patient to improve all prior functional activities. - partially met, will continue Patient will increase active ROM of L shoulder to WFL and symmetrical to allow pt to to improve performance of ADLs. - partially met, will continue Patient will demonstrate increase in L shoulder/UE strength to 5/5 during manual muscle testing in order to improve function for basic self-care tasks, home management tasks, leisure / recreation skills and prior functional tasks. - partially met, will continue Perform all prior functional tasks without pain. - partially met, will continue Improve postural awareness. - met, will monitor Patient Goals: regain prior functional status. - partially met, will continue Planned Interventions, Frequency, and Duration: 2x/week, 4 weeks Total Number of Visits Planned: 8 Patient to be seen for Therapeutic exercise (47481);Manual therapy (40048);Self- assisted management (29522);Patient/Family/Caregiver Education;Body Mechanics Training;Neuromuscular re-education ([id number]);Therapeutic activities (89763) PLAN FOR NEXT VISIT: Progress per protocol and review PNE concepts. SUBJECTIVE: Patient Reason for Visit: Pt reports compliance with HEP 1-2x day. She reports that shehas a lot going on in her personal life right now and she feels that this stress is impacting her Lshoulder situation. She denies any L shoulder pain to start today. She reports increased postural awareness and that she is working on this. Functionally she reports that reaching behind is her only significant limitation. She reports improved ability with reaching across herself to apply deodorant. She also reports that washing her hair is much better. She feels that she is getting better every week. Pain: Pain Pain Level: 0 Pain Location: Shoulder - Left;Upper Arm - Left Description: (no pain to start today.) Frequency: Intermittent Post Treatment Pain Post Treatment Pain Level: 2 Post Treatment Pain Location: Shoulder - Left (anterior aspect) Post Treatment Symptoms: After session pt reported pain at anterior aspect of L shoulder that she attributes to the hand behind back IR stretch of shoulder. PROMIS Scales T-scores: mean of general population = 50. 5 points is clinically meaningfully difference Percentiles provide an indication of how the patient's score ranks in relation to the general population. Higher percentile rankings indicate better function/quality of life. 50th percentile is the average of the general population and indicates half of respondents had a worse score. T-scores: mean of general population = 50. 5 points is clinically meaningfully difference Percentiles provide an indication of how the patient's score ranks in relation to the general population. Higher percentile rankings indicate better function/quality of life. 50th percentile is the average of the general population and indicates half of respondents had a worse score. OBJECTIVE MEASURES WITH LEVEL OF FUNCTION: UE AROM L UE AROM: standing L Shoulder Extension: 53 Degrees L Shoulder Flex: 120 Degrees L Shoulder ABduction: 115 Degrees L Shoulder Internal Rotation (Functional): 49cm less than R reaching behind back L Shoulder External Rotation (Functional): 16cm less than R reaching behind UE and Cervical Strength L UE Strength: MMT deferred based on pt reported pain with AROM and weakness evident during t-band strengthening therex. Pt will definitely benefit from increased strength of L shoulder and this willneed addressed in future PT. TREATMENT: Therapeutic Exercise: 1: UBE UEs only seat #8 x6 minutes to tolerance (Subjective taken during this time, shortened secondary to pt report of pain) 2: seated roel AAROM for L shoulder flexion 2x10 in pain-free range. 3: seated roel AAROM for L shoulder scaption 2x10 in pain-free range. 4: Left shoulder ABC's reaching to tolerance A-Z x2 with 1.5# weight 5: Standing roel L hand behind back 2x10 reps 6: Re-assessment results were discussed with pt and used as rationale for POC recommendations. 7: Left shoulder towel wall slides flexion 2x10 with 1.5# weight 8: Bodyblade L arm at side blade horizontal up and down 3x30 seconds 9: HEP reviewed and continuation encouraged to tolerance. 10: bodyblade L elbow flexed 90 degrees, blade vertical, side to side 3x30 seconds Skilled Intervention: Patient was educated in proper exercise technique and purpose for exercises. Skilled judgment was provided in selection of appropriate interventions. Correct performance of therapeutic exercises was facilitated with verbal, visual and tactile cuing. Patient education as noted. Neuromuscular Re-Education: 1: PNE: Pain Intro: Patient introduced to the topic of pain neuroscience education and that improving knowledge of how pain works promotes improved recovery and rehabilitation. Current knowledge and understanding of patient on pain related topics was explored to create baseline. Homework: Patient received the pain knowledge quiz by THIAGO Galvan as a means to begin addressing misconceptualizations of pain. Sensitive Nerves: Patient educated on the concept of the nervous system as the bodies alarm system, and the role of nociception to warn the body of danger. Peripheral nerve sensitization, hyperalgesia and allodynia were explained using metaphors to promote deep learning. Homework: Patient encouraged to identify personal yellow flags, and explore/identify activity limitations as a result of nervous system hypersensitivity. Calming Sensitive Nerves Patient was educated regarding endogenous mechanisms and strategies to increase the brain s production of chemicals which decrease pain, such as aerobic exercise and improved pain knowledge. The concepts of pacing, graded exposure, sore but safe , and hurt does not equal harm were discussed. Skilled Intervention: Patient education as noted. Billing Therapeutic Exercise Treatment Minutes: 30 Neuromuscular Re-Education Treatment Minutes: 25 Total Treatment Time Minutes (timed/untimed): 55 Blaise Mcginnis PT documented in this encounterMer[facility]07-26-[facility] History of Present illness Narrative* Blaise Mcginnis PT - 11/23/2021 12:18 PM EDT Episode Visit Count: 16 Therapist That Will Oversee The Plan Of Care: Blaise Mcginnis PT Start of Care Date: 09/16/21 Onset Date: 05/19/21 Plan of Care Certification Date: 11/02/21 Next Certification Due Date: 12/14/21 Patient Identified by Name and Date of : Yes REHABILITATION AND SPORTS THERAPY PHYSICAL THERAPY TREATMENT NOTE ASSESSMENT: Morena Martinez tolerated the session with fatigue, decreased symptoms, expected muscle soreness and no issues. She demonstrated improvements in pain, exercise tolerance and strength. The patient will continue to benefit from ongoing skilled physical therapy to progress toward set goals and to continue with post-operative protocol . PLAN FOR NEXT VISIT: Progress per protocol SUBJECTIVE: Patient Reason for Visit: Pt reports that since last session she felt a pop in her L shoulder and her pain has been improved since then. She does not know how to explain this but she isvery pleased with her improvement. She denies any pain to start today. She reports compliance with HEP 2x day. She states that the house cleaning she did recently was the best workout she has had in awhile. Pt reports that she has improved so much that she can now apply deodorance much easier. Pain: Pain Pain Level: 0 Pain Location: Shoulder - Left;Upper Arm - Left Description: (no pain to start) Frequency: Intermittent Post Treatment Pain Post Treatment Pain Level: No Change Post Treatment Symptoms: During and after session, pt reported fatigue but denied any increase in pain. OBJECTIVE MEASURES WITH LEVEL OF FUNCTION: TREATMENT: Therapeutic Exercise: 1: UBE UEs only seat #8 x6 minutes to tolerance (Subjective taken during this time, shortened secondary to pt report of pain) 2: seated roel AAROM for L shoulder flexion 2x10 in pain-free range. 3: seated roel AAROM for L shoulder scaption 2x10 in pain-free range. 4: Left shoulder ABC's reaching to tolerance A-Z x2 with 1# weight 5: Standing roel L hand behind back 2x10 reps 7: Left shoulder towel wall slides flexion 2x10 with 1# weight 8: Bodyblade L arm at side blade horizontal up and down 3x30 seconds 9: 5 on wall reaching 1-5 with 1# wieght 3x30 seconds 10: bodyblade L elbow flexed 90 degrees, blade vertical, side to side 3x30 seconds 11: L shoulder yellow t-band strengthening flexion, abduction, extension, ER and IR 2x10 (reviewed and corrected for HEP) Skilled Intervention: Patient was educated in proper exercise technique and purpose for exercises. Skilled judgment was provided in selection of appropriate interventions. Correct performance of therapeutic exercises was facilitated with verbal, visual and tactile cuing. Patient education as noted. Billing Therapeutic Exercise Treatment Minutes: 42 Total Treatment Time Minutes (timed/untimed): 42 Blaise Mcginnis PT documented in this encounterMer[facility]07-26-2022 Miscellaneous Notes* Telephone Encounter - Jessenia Álvarez RPh - 11/23/2021 10:15 AM EDT Patient was due to test INR today. Will continue to monitor for results. Jessenia Álvarez PharmD documented in this encounterMer[facility]07-21-2022 History of Present illness Narrative* Blaise Mcginnis PT - 11/18/2021 6:28 PM EDT Episode Visit Count: 15 Therapist That Will Oversee The Plan Of Care: Blaise Mcginnis PT Start of Care Date: 09/16/21 Onset Date: 05/19/21 Plan of Care Certification Date: 11/02/21 Next Certification Due Date: 12/14/21 Patient Identified by Name and Date of : Yes REHABILITATION AND SPORTS THERAPY PHYSICAL THERAPY TREATMENT NOTE ASSESSMENT: Morena Martinez tolerated the session with no issues. She demonstrated difficulty with increased pain since last session without explanation. The patient will continue to benefit from ongoing skilled physical therapy to progress toward set goals and to continue with post-operative prot ocol . PLAN FOR NEXT VISIT: Progress per protocol SUBJECTIVE: Patient Reason for Visit: Pt reports that she tolerated last PT session very well but then 1-2 hours after last session she developed increased pain without explanation. She reports that she has had increased pain since that time. She did not do HEP yesterday secondary to increased pain. She denies any injury that would explain the increased pain and she denies any pain or problems with PT. Pain: Pain Pain Level: 6 Pain Location: Shoulder - Left;Upper Arm - Left Description: Shooting (needs to pop pulling and pop feeling) Frequency: Intermittent Post Treatment Pain Post Treatment Pain Level: No Change Post Treatment Symptoms: Pt denied any increase in pain after session. She reports that pain was still 6/10 after 30 minutes of therex today. OBJECTIVE MEASURES WITH LEVEL OF FUNCTION: TREATMENT: Therapeutic Exercise: 1: UBE UEs only seat #8 x3 minutes to tolerance (Subjective taken during this time, shortened secondary to pt report of pain) 2: seated roel AAROM for L shoulder flexion 2x10 in pain-free range. 3: seated roel AAROM for L shoulder scaption 2x10 in pain-free range. 4: Left shoulder ABC's reaching to tolerance A-Z x2 without weight 5: Standing roel L hand behind back 2x10 reps 7: Left shoulder towel wall slides flexion 2x10 without weight 8: Bodyblade L arm at side blade horizontal up and down 3x30 seconds 9: 5 on wall reaching 1-5 without wieght 3x30 seconds 10: bodyblade L elbow flexed 90 degrees, blade vertical, side to side 3x30 seconds Skilled Intervention: Patient was educated in proper exercise technique and purpose for exercises. Skilled judgment was provided in selection of appropriate interventions. Correct performance of therapeutic exercises was facilitated with verbal and visual cuing. Patient education as noted. Billing Therapeutic Exercise Treatment Minutes: 30 Total Treatment Time Minutes (timed/untimed): 30 Blaise Mcginnis PT documented in this encounterMer[facility]07-14-2022 History of Present illness Narrative* Blaise Mcginnis PT - 11/11/2021 12:47 PM EDT Episode Visit Count: 13 Therapist That Will Oversee The Plan Of Care: Blaise Mcginnis PT Start of Care Date: 09/16/21 Onset Date: 05/19/21 Plan of Care Certification Date: 11/02/21 Next Certification Due Date: 12/14/21 Patient Identified by Name and Date of : Yes REHABILITATION AND SPORTS THERAPY PHYSICAL THERAPY TREATMENT NOTE ASSESSMENT: Morena Martinez tolerated the session with fatigue, expected muscle soreness and no issues. She demonstrated improvements in pain and exercise tolerance secondary to starting new medication yesterday. The patient will continue to benefit from ongoing skilled physical therapy to progress toward set goals and to continue with post-operative protocol . PLAN FOR NEXT VISIT: Progress per protocol SUBJECTIVE: Patient Reason for Visit: Pt reports that overall she is feeling better than she has been feeling. She reports starting a steroid yesterday that has helped significantly. She reports thather pain all over her body was significant prior to starting the steroid yesterday. She reports that the medicaion helped so much that she slept much better last night. She reports minimal to no painto start today. She reports compliance with HEP but that the theraband strengthening has been causing discomfort. Pain: Pain Pain Level: (not rated) Pain Location: Shoulder - Left;Upper Arm - Left Frequency: Intermittent Post Treatment Pain Post Treatment Pain Level: 0 Post Treatment Pain Location: Shoulder - Left;Upper Arm - Left Post Treatment Pain Description: (fatigue but no increase in pain) Post Treatment Symptoms: Pt reported fatigue with therex but denied any increase in pain. OBJECTIVE MEASURES WITH LEVEL OF FUNCTION: TREATMENT: Therapeutic Exercise: 1: UBE UEs only seat #8 x5 minutes to tolerance (Subjective taken and discussed progress and plan) 2: seated roel AAROM for L shoulder flexion 2x10 in pain-free range. 3: seated roel AAROM for L shoulder scaption 2x10 in pain-free range. 4: Left shoulder ABC's reaching to tolerance A-Z x2 with 1.5# weight on wrist 5: Standing roel L hand behind back 2x10 reps 7: Left shoulder towel wall slides flexion 2x10 with 1.5# weight 8: Bodyblade L arm at side blade horizontal up and down 3x30 seconds 9: 5 on wall reaching 1-5 1.5# wieght 3x30 seconds 10: bodyblade L elbow flexed 90 degrees, blade vertical, side to side 3x30 seconds 11: *L shoulder yellow t-band strengthening flexion, abduction, extension, ER and IR 2x5 Skilled Intervention: Patient was educated in proper exercise technique and purpose for exercises. Reviewed and educated patient on additions/changes for home exercise program as above (*). Skilled judgment was provided in selection of appropriate interventions. Provided written instruction for home exercise program to facilitate proper performance and compliance. Correct performance of therapeutic exercises was facilitated with verbal, visual and tactile cuing. Patient education as noted. Billing Therapeutic Exercise Treatment Minutes: 45 Total Treatment Time Minutes (timed/untimed): 45 Blaise Mcginnis PT documented in this encounterMer[facility]07-12-2022 Miscellaneous Notes* Telephone Encounter - Jovanny Peralta RPh - 11/09/2021 3:18 PM EDT Morena Martinez was called and reminded to test INR today or as soon as possible. Jovanny Peralta RPh documented in this encounterMer[facility]07-12-2022 History of Present illness Narrative* Blaise Mcginnis PT - 11/09/2021 11:43 AM EDT Episode Visit Count: 12 Therapist That Will Oversee The Plan Of Care: Blaise Mcginnis PT Start of Care Date: 09/16/21 Onset Date: 05/19/21 Plan of Care Certification Date: 11/02/21 Next Certification Due Date: 12/14/21 Patient Identified by Name and Date of : Yes REHABILITATION AND SPORTS THERAPY PHYSICAL THERAPY TREATMENT NOTE ASSESSMENT: Morena Martinez tolerated the session with decreased activity tolerance due to fibromyalgia flare up. She demonstrated difficulty with whole body pain and slight reduction in shoulder pain following exercises in therapy today. The patient will continue to benefit from ongoing skilled physical therapy to progress toward set goals. PLAN FOR NEXT VISIT: Progress per protocol SUBJECTIVE: Patient Reason for Visit: Patient reports having a fibromyalgia flare up all over her body. She reports intermittent crying for past few days due to pain. Pain: Pain Pain Level: 9 Pain Location: (whole body) Description: (hurts) Frequency: Intermittent Post Treatment Pain Post Treatment Pain Level: 5 Post Treatment Pain Location: Shoulder - Left Post Treatment Symptoms: Shoulder feels better and no change body pain OBJECTIVE MEASURES WITH LEVEL OF FUNCTION: TREATMENT: Therapeutic Exercise: 1: SciFit StepOne seat #16 x4 minutes in pain-free range (Subjective taken and discussed fibrobmyalgia flareup) 2: seated roel AAROM for L shoulder flexion 2x10 in pain-free range. 3: seated roel AAROM for L shoulder scaption 2x10 in pain-free range. 4: Left shoulder ABC's reaching to tolerance A-Z x 1 with 1# weight on wrist 5: Standing roel L hand behind back 2x10 reps 7: Left shoulder towel wall slides flexion 2x10 8: Bodyblade L arm at side blade horizontal up and down 3x30 seconds 9: 5 on wall reaching 1-4 no wieght 3x30 seconds 10: bodyblade L elbow flexed 90 degrees, blade vertical, side to side 3x30 seconds 11: L shoulder yellow t-band strengthening extension, ER and IR 2x10 Skilled Intervention: Patient was educated in proper exercise technique and purpose for exercises. Skilled judgment was provided in selection of appropriate interventions. Correct performance of therapeutic exercises was facilitated with verbal cuing. Manual Therapy: Soft Tissue Mobilization: lacrosse ball soft tissue mobilization to L shoulder and upper arm x5 minutes after all therex completed. Skilled Intervention: Manual skills to improve joint mobility, ROM, and decrease pain. Utilized anatomy knowledge of the therapist, and assessment of patient's response to intervention. Billing Therapeutic Exercise Treatment Minutes: 38 Manual TherapyTreatment Minutes: 5 Total Treatment Time Minutes (timed/untimed): 43 Mandy Liam, MANSOOR Mcginnis PT documented in this encounterMer[facility]07-07-2022 History of Present illness Narrative* Blaise Mcignnis PT - 11/04/2021 11:37 AM EDT Episode Visit Count: 11 Therapist That Will Oversee The Plan Of Care: Blaise Mcginnis PT Start of Care Date: 09/16/21 Onset Date: 05/19/21 Plan of Care Certification Date: 11/02/21 Next Certification Due Date: 12/14/21 Patient Identified by Name and Date of : Yes REHABILITATION AND SPORTS THERAPY PHYSICAL THERAPY TREATMENT NOTE ASSESSMENT: Morena Martinez tolerated the session with fatigue, expected muscle soreness and no issues. She demonstrated improvements in strength, ROM and exercise tolerance. The patient will continue to benefit from ongoing skilled physical therapy to progress toward set goals and to continue with post- operative protocol . PLAN FOR NEXT VISIT: Continue with post-op protocol for L rotator cuff repair. Progress to tolerance, especially strengthening. Pt is currently 9 weeks post-op. SUBJECTIVE: Patient Reason for Visit: Pt reports that she is doing well. She reports muscle soreness and fatigue following last session but she denies any increase in pain. She denies any pain to start today. She reports compliance with HEP 2x day. Pain: Pain Pain Level: 0 Pain Location: Shoulder - Left;Upper Arm - Left Description: (no pain to start today) Frequency: Intermittent Post Treatment Pain Post Treatment Pain Level: No Change Post Treatment Pain Location: Shoulder - Left Post Treatment Pain Description: (fatigue only) Post Treatment Symptoms: During and after session today, pt reported muscle soreness and fatigue but she denied any increase in pain. OBJECTIVE MEASURES WITH LEVEL OF FUNCTION: TREATMENT: Therapeutic Exercise: 1: SciFit StepOne seat #16 x6 minutes in pain-free range (Subjective taken and discussed progress and pain levels) 2: seated roel AAROM for L shoulder flexion 2x10 in pain-free range. 3: seated roel AAROM for L shoulder scaption 2x10 in pain-free range. 4: Left shoulder ABC's reaching to tolerance A-Z x 1 with 1# weight on wrist 5: Standing roel L hand behind back 2x10 reps 6: L hand holding 2# ball against wall 2x10 CW and 2x10 CCW 7: Left shoulder towel wall slides flexion 2x10 with 1# weight on wrist 8: Bodyblade L arm at side blade horizontal up and down 3x30 seconds 9: 5 on wall reaching 1-5 (toward 5) 3x30 seconds. (one rep with 1# weight and 2 reps without weight) 10: bodyblade L elbow flexed 90 degrees, blade vertical, side to side 3x30 seconds 11: L shoulder yellow t-band strengthening for flexion, extension, abduction, IR and ER 2x10 each. Skilled Intervention: Patient was educated in proper exercise technique and purpose for exercises. Skilled judgment was provided in selection of appropriate interventions. Correct performance of therapeutic exercises was facilitated with verbal, visual and tactile cuing. Patient education as noted. Manual Therapy: Soft Tissue Mobilization: lacrosse ball soft tissue mobilization to L shoulder and upper arm x5 minutes after all therex completed. Skilled Intervention: Manual skills to improve joint mobility, ROM, and decrease pain. Utilized anatomy knowledge of the therapist, and assessment of patient's response to intervention. Billing Therapeutic Exercise Treatment Minutes: 40 Manual TherapyTreatment Minutes: 5 Total Treatment Time Minutes (timed/untimed): 45 Blaise Mcginnis PT documented in this encounterMer[facility]07-05-2022 History of Present illness Narrative* Blaise Mcginnis PT - 11/02/2021 5:58 PM EDT Episode Visit Count: 10 Therapist That Will Oversee The Plan Of Care: Blaise Mcginnis PT Start of Care Date: 09/16/21 Onset Date: 05/19/21 Plan of Care Certification Date: 11/02/21 Next Certification Due Date: 12/14/21 Patient Identified by Name and Date of : Yes REHABILITATION AND SPORTS THERAPY PHYSICAL THERAPY PROGRESS REPORT PLAN OF CARE UPDATE: Assessment: Morena Parnell Juan demonstrates moderate improvement in sleeping, reaching behind back, reaching overhead, use hand with arm at shoulder level, cleaning, cooking and dressing. She hasprogressed toward goals. Patient continues to present with impairments in overall function, posture, range of motion, strength and symptom management that interfere with lifting;sleeping;reaching behind back;reaching overhead;use hand with arm at shoulder level;driving;dressing;grooming . Current prognosis is Good due to: current objective clinical presentation;positive past response to therapy . She will benefit from continued skilled therapy services to meet the updated goals for this plan of care as noted below. Updated: 10/04/21 and 11/02/21 Goals for Episode of Care: created on 09/16/21 through 12/09/21 [place] in home exercise program. - partially met, will continue and progress to tolerance Patient will decrease pain to 0/10 at rest and with functional activities to allow patient to improve all prior functional activities. - partially met, will continue Patient will increase active ROM of L shoulder to WFL and symmetrical to allow pt to to improve performance of ADLs. - partially met, will continue Patient will demonstrate increase in L shoulder/UE strength to 5/5 during manual muscle testing in order to improve function for basic self-care tasks, home management tasks, leisure / recreation skills and prior functional tasks. - not met, will continue Perform all prior functional tasks without pain. - not met, will continue Improve postural awareness. - partially met, will continue Patient Goals: regain prior functional status. - partially met, will continue Planned Interventions, Frequency, and Duration: 2x/week, 6 weeks Total Number of Visits Planned: 12 Patient to be seen for Therapeutic exercise ([id number]);Neuromuscular re-education ([id number]);Manual therapy ([id number]);Self-assisted management ([id number]);Patient/Family/Caregiver Education;Body Mechanics Training;General Conditioning PLAN FOR NEXT VISIT: Continue with post-op protocol for L rotator cuff repair. Progress to tolerance, especially strengthening. Pt is currently 9 weeks post-op. SUBJECTIVE: Patient Reason for Visit: Pt reports that last week was a bad week without explanation but that currently she is feeling better. She reports that despite the improvements, she is still experiencing pain and stiffness during the night and first thing in the morning. She is considering requesting the steroid from referring surgeon to addresss this. She reports compliance with HEP 2x daywith no issues or problems. Overall she reports slow and steady progress. She reports that she has had much less pain since she stopped using the sling 2 weeks ago. She reports functional improvements with all activities since she has started therapy. She reports that she could do very little with her L UE pre-op. She reports that she is sleeping in bed much better. She reports that she is folding laundry and doing dishes which she was not able to before. She reports increased postural awareness but that her purse and shirt still slip off of her L shoulder. Functional Limitations: lifting;sleeping;reaching behind back;reaching overhead;use hand with arm at shoulder level;driving;dressing;grooming Pain: Pain Pain Level: 2 Pain Location: Shoulder - Left;Upper Arm - Left Description: Aching Frequency: Continuous Post Treatment Pain Post Treatment Pain Level: 0 Post Treatment Pain Location: Shoulder - Left Post Treatment Pain Description: (no pain after soft tissue mobilization) Post Treatment Symptoms: During session pt reported fatigue and soreness, especially with movementsto end range but after session, she reported 0/10. She attributes improvements to lacrosse ball soft tissue mobilizations. PROMIS Scales T-scores: mean of general population = 50. 5 points is clinically meaningfully difference Percentiles provide an indication of how the patient's score ranks in relation to the general population. Higher percentile rankings indicate better function/quality of life. 50th percentile is the average of the general population and indicates half of respondents had a worse score. T-scores: mean of general population = 50. 5 points is clinically meaningfully difference Percentiles provide an indication of how the patient's score ranks in relation to the general population. Higher percentile rankings indicate better function/quality of life. 50th percentile is the average of the general population and indicates half of respondents had a worse score. OBJECTIVE MEASURES WITH LEVEL OF FUNCTION: UE AROM L UE AROM: AROM standing with no assistance L Shoulder Extension: 48 Degrees L Shoulder Flex: 102 Degrees L Shoulder ABduction: 95 Degrees L Shoulder Internal Rotation (Functional): 43cm less than R reaching behind back L Shoulder External Rotation (Functional): 22cm less than R reaching behind head UE and Cervical Strength L UE Strength: MMT deferred based on patient's report of recent increased pain. TREATMENT: Therapeutic Exercise: 1: Homeschooling Through the AgesFit StepOne seat #16 x6 minutes in pain-free range (Subjective takend and discussed progress and pain levels) 2: seated roel AAROM for L shoulder flexion 2x10 in pain-free range. 3: seated roel AAROM for L shoulder scaption 2x10 in pain-free range. 4: Left shoulder ABC's reaching to tolerance A-Z x 1 5: Standing roel L hand behind back 2x10 reps 6: L hand holding 2# ball against wall 2x10 CW and 2x10 CCW 7: Left shoulder towel wall slides flexion 2x10 8: Bodyblade L arm at side blade horizontal up and down 3x30 seconds 9: 5 on wall reaching 1-5 (toward 5) 3x30 seconds. 10: Re-assessment results discussed with patient and used as rationale for plan of care recommendations. Skilled Intervention: Patient was educated in proper exercise technique and purpose for exercises. Skilled judgment was provided in selection of appropriate interventions. Correct performance of therapeutic exercises was facilitated with verbal, visual and tactile cuing. Patient education as noted. Manual Therapy: Soft Tissue Mobilization: lacrosse ball soft tissue mobilization to L shoulder and upper arm x5 minutes after all therex completed. Skilled Intervention: Manual skills to improve joint mobility, ROM, and decrease pain. Utilized anatomy knowledge of the therapist, and assessment of patient's response to intervention. Billing Therapeutic Exercise Treatment Minutes: 40 Manual TherapyTreatment Minutes: 5 Total Treatment Time Minutes (timed/untimed): 45 Blaise Mcginnis PT documented in this encounterMer[facility] History of Present illness Narrative* Guerda Cruz PT - 10/27/2021 4:04 PM EDT Episode Visit Count: 9 Therapist That Will Oversee The Plan Of Care: Blaise Mcginnis PT Start of Care Date: 09/16/21 Onset Date: 05/19/21 Plan of Care Certification Date: 10/04/21 Next Certification Due Date: 11/01/21 Patient Identified by Name and Date of : Yes REHABILITATION AND SPORTS THERAPY PHYSICAL THERAPY TREATMENT NOTE ASSESSMENT: Morena Martinez tolerated the session with decreased symptoms. She demonstrated difficulty with increase pain in left shoulder and whole body at times with minimal activity. Decreased intesity of reaching exercises today. Increase AROM flexion and abduction left shoulder at end of treatment and pain level decreased. Will monitor delayed response to treatment. The patient will continue to benefit from ongoing skilled physical therapy to progress toward set goals. PLAN FOR NEXT VISIT: Monmiesha blanc response to reduction of strengthening exercises today. SUBJECTIVE: Patient Reason for Visit: Patient reports exercises felt okay last visit and had increase pain in the evening prior to going to bed. She reports her whole body felt aching and a feeling of increase swelling. She reports she did no exerciess yesterday and felt pretty good. She reports after making a simple supper pain increased and she had difficulty sleeping at night. She reports taking Tylenol with codeine in the morning and eveing yesterday. Pain: Pain Pain Level: 7 Pain Location: Shoulder - Left;Upper Arm - Left Description: Aching (intense at times) Frequency: Intermittent Post Treatment Pain Post Treatment Pain Level: 1 Post Treatment Pain Location: Shoulder - Left Post Treatment Pain Description: Aching OBJECTIVE MEASURES WITH LEVEL OF FUNCTION: UE AROM L Shoulder Flex: 111 Degrees L Shoulder ABduction: 115 Degrees TREATMENT: Therapeutic Exercise: 1: [employer] StepOne seat #16 x6 minutes in pain-free range (Subjective takend and discussed Dr appointment and pain levels) 2: seated roel AAROM for L shoulder flexion 2x10 in pain-free range. 3: seated roel AAROM for L shoulder scaption 2x10 in pain-free range. 4: Left shoulder ABC's reaching to tolerance A-Z x 1 5: Standing wand extension behind back with hands wide on yardstick 1x10 reps 6: Seated PROM left shoulder flexion, abduction 2x10 each 7: Left shoulder towel wall slides flexion 1x10 9: Standing left IR 1x10 10: Standing wand extension behind back hands wide and hands slightly closer together 1x10 each 11: Bodyblade arm at side Skilled Intervention: Patient was educated in proper exercise technique and purpose for exercises. Skilled judgment was provided in selection of appropriate interventions. Correct performance of therapeutic exercises was facilitated with verbal and visual cuing. Manual Therapy: Soft Tissue Mobilization: Tennis ball x 8 minutes left shoulder following Seated Stepper. Skilled Intervention: Manual skills to improve joint mobility, ROM, and decrease pain. Utilized anatomy knowledge of the therapist, and assessment of patient's response to intervention. Billing Therapeutic Exercise Treatment Minutes: 36 Manual TherapyTreatment Minutes: 8 Total Treatment Time Minutes (timed/untimed): 44 MANSOOR Charles PT documented in this encounterMer[facility]06-27-[facility] History of Present illness Narrative* Guerda Cruz, PT - 10/25/2021 11:30 AM EDT Episode Visit Count: 8 Therapist That Will Oversee The Plan Of Care: Blaise Mcginnis PT Start of Care Date: 09/16/21 Onset Date: 05/19/21 Plan of Care Certification Date: 10/04/21 Next Certification Due Date: 11/01/21 Patient Identified by Name and Date of : Yes REHABILITATION AND SPORTS THERAPY PHYSICAL THERAPY TREATMENT NOTE ASSESSMENT: Morena Martinez tolerated the session with expected muscle soreness. She demonstratedimprovements in AROM of left shoulder and difficulty with discomfort right shoulder muscles anterior and lateral.. The patient will continue to benefit from ongoing skilled physical therapy to progress toward set goals. PLAN FOR NEXT VISIT: Progress AAROM and AROM and strength of left shoulder SUBJECTIVE: Patient Reason for Visit: Patient reports the left shoulder is aching anterior and leasteral shoulder. She reports with muscle relaxer she can get 2-3 hours of pain relief. Pain: Pain Pain Level: 6 Pain Location: Shoulder - Left;Upper Arm - Left Description: Aching Frequency: Intermittent Post Treatment Pain Post Treatment Pain Level: No Change Post Treatment Symptoms: the right shoulder muscles feel sore OBJECTIVE MEASURES WITH LEVEL OF FUNCTION: UE AROM L Shoulder Flex: 108 Degrees L Shoulder ABduction: 102 Degrees L Shoulder Internal Rotation (Functional): left lateral buttock TREATMENT: Therapeutic Exercise: 1: Homeschooling Through the AgesFit StepOne seat #16 x6 minutes in pain-free range (Subjective takend and discussed Dr appointment and pain levels) 2: seated roel AAROM for L shoulder flexion 2x10 in pain-free range. 3: seated roel AAROM for L shoulder abduction 2x10 in pain-free range. 4: Left shoulder ABC's reaching to tolerance A-Z x 1 5: Yellow band resistive ER/IR,flexion and extension 2x12 (education to stay in painfree range, vended yellow band for home.) 6: Seated PROM left shoulder flexion, abduction 2x10 each 7: Left shoulder towel wall slides flexion 1x10 8: 4 on wall reaching 1-4 (toward 4) 2x30 seconds. 9: Standing left IR 1x10 10: *Standing wand extension behind back hands wide and hands slightly closer together 1x10 each 11: *Wand IR stretch behind back 1x10 Skilled Intervention: Patient was educated in proper exercise technique and purpose for exercises. Reviewed and educated patient on additions/changes for home exercise program as above (*). Skilled judgment was provided in selection of appropriate interventions. Correct performance of therapeutic exercises was facilitated with verbal and visual cuing. Manual Therapy: Soft Tissue Mobilization: Tennis ball x 8 minutes left shoulder following Seated Stepper. Skilled Intervention: Manual skills to improve joint mobility, ROM, and decrease pain. Utilized anatomy knowledge of the therapist, and assessment of patient's response to intervention. Billing Therapeutic Exercise Treatment Minutes: 36 Manual TherapyTreatment Minutes: 8 Total Treatment Time Minutes (timed/untimed): 44 MANSOOR Charles PT documented in this encounterMer[facility]06-23-2022 Miscellaneous Notes* Telephone Encounter - Hilary Judge RN - 10/21/2021 3:23 PM EDT I put it in for tyl 3s. If this doesn't work, I can change to 4s Per Dr Chow documented in this encounterMercy [facility]06-22-2022 History of Present illness Narrative* Lisette Banks, - 10/20/2021 10:29 AM EDT Images from the original note were not included. Follow Up Visit Chief Complaint Morena Martinez is a 56 year old female who presents today for follow up office visit. Patient presents with: Left Shoulder - Established Patient, Follow Up, Post Op History of Present Illness PAIN EVALUATION 10/20/2021 1012 Pain Level: 0 Pain Location: Shoulder-Left Duration Amount of Time: on going Frequency: Intermittent Intervention/Comfort measure: Medication;Cold;Exercise tylenol with codiene Comments: PT currently HPI: Morena Martinez is a 56 year old female for a follow up visit dos 08/31 left shoulder. In PT, overdid it and woke up sore, but improving, has been wearing sling until recently.. Pain history is noted as above. Denies calf pain, numbness, tingling, fever, chills or other constitutional symptoms. Is there any overall improvement in your condition? Yes, Any new injury, since being seen last: No REVIEW OF SYMPTOMS: Patient did not have, and does not currently have, any weight loss, malaise, fever, chills, headache, chest pain, chest pressure, palpitations, cough, shortness of breath, orthopnea, paroxsymal nocturnal dyspnea, nausea, vomiting, diarrhea, constipation, melena, hematochezia, urinary difficulties, prolonged bleeding, easily bruising, heat or cold intolerance, new onset joint pain or swelling, newonset extremity weakness or numbness, new onset auditory or visual disturbances, lightheadedness, dizziness, partial loss of consciousness or full loss of consciousness. Current Outpatient Medications Medication Sig acetaminophen-codeine (TYLENOL-CODEINE #3) 300-30 mg per tablet Take 1 tablet by mouth twice daily as needed for pain for up to 90 days. JANUVIA 100 mg tablet Take 1 tablet by mouth once daily. warfarin (COUMADIN) 5 mg tablet 7.5 mg daily gabapentin (NEURONTIN) 300 mg capsule Take 1 capsule by mouth daily at bedtime for 180 days. furosemide (LASIX) 40 mg tablet Take 1 tablet by mouth once daily. tiZANidine (ZANAFLEX) 4 mg tablet Take 1 tablet by mouth every 6 hours as needed. nystatin (MYCOSTATIN) cream Apply to affected area twice daily. lisinopril (ZESTRIL, PRINIVIL) 10 mg tablet Take 1 tablet by mouth once daily. cyclobenzaprine (FLEXERIL) 10 mg tablet Take 1 tablet by mouth every 8 hours as needed for muscle spasm. for pain or spasms. atenolol (TENORMIN) 50 mg tablet Take 50 mg in the AM, 25 mg in the PM furosemide (LASIX) 20 mg tablet Take 1 tablet by mouth once daily. NEEDED zolpidem (AMBIEN) 5 mg tablet Take 1 tablet by mouth at bedtime as needed (for insomnia.) for up to7 days. No current facility-administered medications for this visit. Physical Exam Vitals: There were no vitals taken for this visit. Psych: Pleasant, good affect and mood General Appearance: Well appearing, alert, in no acute distress, well-hydrated, well nourished.. Skin: Skin color, texture, turgor normal, no suspicious rashes or lesions. Peripheral Pulses: Normal. Neurologic: Gait normal. Reflexes normal and symmetric. Sensation grossly intact.. Lymph Nodes: No cervical lymphadenopathy, No supraclavicular lymphadenopathy, No axillary lymphadenopathy. and No inguinal lymphadenopathy.. Respiratory: No recent pulmonary infection, hemoptysis, chronic cough, or shortness of breath at rest Rheumatologic: Joint deformities: Left shoulder pain Left Shoulder Exam Comments: Abduction to 90 arom/ 100 prom Med,uln, rad , musc, ax nerves intact Incision cdi, no signs of infection, stitch spitting out removed Assessment and Plan Radiographs: No imaging to review. Impression: Encounter Diagnosis ICD-10-CM 1. Acute pain of left shoulder M25.512 2. Traumatic complete tear of left rotator cuff, subsequent encounter S46.012D 3. Postoperative pain G89.18 Today, in detail, through a thorough evaluation, we discussed possible etiologies of pain and our plans for further diagnostic and therapeutic interventions. We discussed strategies for decreasing pain and improving strength, stability and motion. Patient's questions were answered in detailed. Patient verbalizes understanding and agrees with the treatment plan as discussed. Discussed stiffness risks and if has a flair may add steroids as on blood thinners and cant take nsaids Discussed following protocol PT For lifting- Remove brace, may heat to get stiffness, warm shower Follow up in [address]enol w codeine rx ordered for PT Lisette Banks DO documented in this encounterMer[facility]06-20-2022 Miscellaneous Notes* Telephone Encounter - Byron Jolley APRN.CNP - 10/18/2021 12:47 PM EDT The following approved medication requests have been transmitted electronically. Pending Prescriptions Disp Refills JANUVIA 100 MG TABLET 30 tablet 11 Sig: Take 1 tablet by mouth once daily. JAISON: Yes Byron Jollye APRN.CNP documented in this encounterMer[facility]06-20-2022 History of Present illness Narrative* Kelvin Rodriguez, PT - 10/18/2021 12:36 PM EDT Episode Visit Count: 6 Therapist That Will Oversee The Plan Of Care: Blaise Mcginnis PT Start of Care Date: 09/16/21 Onset Date: 05/19/21 Plan of Care Certification Date: 10/04/21 Next Certification Due Date: 11/01/21 Patient Identified by Name and Date of : Yes REHABILITATION AND SPORTS THERAPY PHYSICAL THERAPY TREATMENT NOTE ASSESSMENT: Morena Martinez tolerated the session with decreased symptoms. She demonstrated difficulty with initially with pain in left shoulder and improvements in pain reduction following soft tissue mobs. Started strengthening today per protocol with good tolerance.. The patient will continue to benefit from ongoing skilled physical therapy to progress toward set goals. PLAN FOR NEXT VISIT: onitor delyaed response to newly added strengthening exericses. SUBJECTIVE: Patient Reason for Visit: Patient reports her shoulder was doing good until yesterday. She reports reaching back to catch a door and has had increase pain yesterday and today left shoulder. Pain: Pain Pain Level: 6 Pain Location: Shoulder - Left;Upper Arm - Left Description: Sore;Aching Frequency: Intermittent Post Treatment Pain Post Treatment Pain Level: 3 Post Treatment Pain Location: Shoulder - Left Post Treatment Symptoms: decrease pain following soft tissue manual therapu OBJECTIVE MEASURES WITH LEVEL OF FUNCTION: UE AROM L Shoulder Flex: 95 Degrees L Shoulder ABduction: 92 Degrees L Shoulder Internal Rotation (Functional): (lateral buttock) L Shoulder External Rotation (Functional): C1 reaching behind neck TREATMENT: Therapeutic Exercise: 1: Homeschooling Through the AgesFit StepOne seat #16 x6 minutes in pain-free range (subjective information collected and rehab plan reviewed. Pt questions answered and continuation encouraged to tolerance) 2: seated roel AAROM for L shoulder flexion 2x10 in pain-free range. 3: seated roel AAROM for L shoulder abduction 2x10 in pain-free range. 4: Left shoulder ABC's reaching to tolerance A-Z x 1 5: *Mccormick band resistive ER/IR,flexion and extension 2x10 (education to stay in painfree range, vended orange band for home.) 6: Education not to push into pain with strengthening exercises. Skilled Intervention: Patient was educated in proper exercise technique and purpose for exercises. Reviewed and educated patient on additions/changes for home exercise program as above (*). Skilled judgment was provided in selection of appropriate interventions. Provided written instruction for home exercise program to facilitate proper performance and compliance. Correct performance of therapeutic exercises was facilitated with verbal and visual cuing. Patient education as noted. Manual Therapy: Soft Tissue Mobilization: Lacrosse ball mobs left shoulder at start of treatment and end of treatment x 8 minutes total. (Education on ball vs wall at home to assist with pain control.) Skilled Intervention: Manual skills to improve joint mobility, ROM, and decrease pain. Utilized anatomy knowledge of the therapist, and assessment of patient's response to intervention. Billing Therapeutic Exercise Treatment Minutes: 32 Manual TherapyTreatment Minutes: 8 Total Treatment Time Minutes (timed/untimed): 40 MANSOOR Charles PT documented in this encounterMer[facility]06-07-2022 Miscellaneous Notes* Telephone Encounter - Pinky Dawkins Ma - 10/05/2021 4:31 PM EDT The following approved medication requests have been transmitted electronically. Signed Prescriptions Disp Refills acetaminophen-codeine (TYLENOL-CODEINE #3) 300-30 mg per tablet 60 tablet 2 Sig: Take 1 tablet by mouth twice daily as needed for pain for up to 90 days. NILAM Class: C-III JAISON: No Authorizing Provider: MILKA MAS Ma * Telephone Encounter - Milka Mas MD - 10/05/2021 4:23 PM EDT OK to refill as ordered Milka Mas MD * Telephone Encounter - Silvia Flannery RN - 10/05/2021 4:07 PM EDT Patient reports she went to [facility] to get refill of her Tylenol w/Codeine #3 and the pharmacy states the script has been cancelled. She is requesting Dr. Mas to send script, if agreeable. She reports she will be going out of town in about a week and would like to get this refilled by then, if possible. Script pended for completion. Please call patient with update. Thank you. documented in this encounterMer[facility]06-06-2022 Miscellaneous Notes* Addendum Note - Blaise Mcginnis PT - 10/04/2021 3:11 PM EDT Addended by: BLAISE MCGINNIS on: 10/04/2021 03:11 PM Modules accepted: Orders documented in this encounterMercy [facility]06-06-2022 History of Present illness Narrative* Blaise Mcginnis PT - 10/04/2021 3:03 PM EDT Episode Visit Count: 4 Therapist That Will Oversee The Plan Of Care: Blaise Mcginnis PT Start of Care Date: 09/16/21 Onset Date: 05/19/21 Plan of Care Certification Date: 10/04/21 Next Certification Due Date: 11/01/21 Patient Identified by Name and Date of : Yes REHABILITATION AND SPORTS THERAPY PHYSICAL THERAPY PROGRESS REPORT PLAN OF CARE UPDATE: Assessment: Morena Martinez demonstrates moderate improvement in PROM. She has progressed toward goals. Patient continues to present with impairments in independence in exercise, overall function, posture, range of motion, strength and symptom management that interfere with lifting;sleeping;reaching behind back;reaching overhead;use hand with arm at shoulder level;driving;dressing;grooming . Current prognosis is Good due to: current objective clinical presentation;positive past response to therapy. She will benefit from continued skilled therapy services to meet the updated goals for this plan of care as noted below. Updated: 10/04/21 Goals for Episode of Care: created on 09/16/21 through 12/09/21 [place] in home exercise program. - partially met, will continue and progress to tolerance Patient will decrease pain to 0/10 at rest and with functional activities to allow patient to improve all prior functional activities. - partially met, will continue Patient will increase active ROM of L shoulder to WFL and symmetrical to allow pt to to improve performance of ADLs. - partially met for PROM, will continue Patient will demonstrate increase in L shoulder/UE strength to 5/5 during manual muscle testing in order to improve function for basic self-care tasks, home management tasks, leisure / recreation skills and prior functional tasks. - not met, will continue Perform all prior functional tasks without pain. - not met, will continue Improve postural awareness. - partially met, will continue Patient Goals: regain prior functional status. - partially met, will continue Planned Interventions, Frequency, and Duration: 2x/week, 8 weeks Total Number of Visits Planned: 16 Patient to be seen for Therapeutic exercise (22066);Neuromuscular re-education (41482);Manual therapy (09305);Self-assisted management (42374);Patient/Family/Caregiver Education;Body Mechanics Training;General Conditioning PLAN FOR NEXT VISIT: Review, correct and progress HEP to tolerance. Follow post- op rehab plan of PROM and pendulums from 0-2 weeks, AAROM with eventual progression to AROM from weeks 2-6 using pain as a guide. Progress to tolerance but no resistance training with L UE until week 6 post-op at the earliest. SUBJECTIVE: Patient Reason for Visit: Pt reports considerable pain and soreness following last session. She reports that this increased pain lasted approximately 2 days. She reports compliance with HEP 3x day most days. She reports being excited that she had one day since last session when she was c ompletely pain-free. She reports that 10/02/21 was completely pain-free. Functional Limitations: lifting;sleeping;reaching behind back;reaching overhead;use hand with arm at shoulder level;driving;dressing;grooming Pain: Pain Pain Level: (5-6/10) Pain Location: Shoulder - Left;Upper Arm - Left Description: Aching Frequency: Continuous Post Treatment Pain Post Treatment Pain Level: No Change Post Treatment Pain Location: Shoulder - Left;Upper Arm - Left Post Treatment Symptoms: After session, pt denied any increase in pain and she continued to rate pain 5-6/10 PROMIS Scales T-scores: mean of general population = 50. 5 points is clinically meaningfully difference Percentiles provide an indication of how the patient's score ranks in relation to the general population. Higher percentile rankings indicate better function/quality of life. 50th percentile is the average of the general population and indicates half of respondents had a worse score. T-scores: mean of general population = 50. 5 points is clinically meaningfully difference Percentiles provide an indication of how the patient's score ranks in relation to the general population. Higher percentile rankings indicate better function/quality of life. 50th percentile is the average of the general population and indicates half of respondents had a worse score. OBJECTIVE MEASURES WITH LEVEL OF FUNCTION: UE PROM L UE PROM: seated L Shoulder Extension: 51 Degrees L Shoulder Flex: 114 Degrees L Shoulder ABduction: 112 Degrees L Shoulder External Rotation: 60 Degrees TREATMENT: Therapeutic Exercise: 1: [employer] StepOne seat #16 x6 minutes in pain-free range (subjective information collected and rehab plan reviewed. Pt questions answered and continuation encouraged to tolerance) 2: L UE pendulums side to side 2x10 3: L UE pendulums front to back 2x10 4: L UE pendulums CW and CCW circles 2x10 each 5: seated PROM for L shoulder flexion by therapist 2x10 6: seated PROM for L shoulder abduction by therapist 2x10 7: seated PROM for L shoulder ER(0 degrees of abduction) by therapist 2x10 8: seated PROM for L shoulder IR(60 degrees of abduction) 2x10 in pain-free range by therapist. 9: seated roel AAROM for L shoulder flexion 2x10 in pain-free range. 10: seated roel AAROM for L shoulder abduction 2x10 in pain-free range. 11: HEP reviewed, corrected and continuation encouraged to tolerance. 12: Physician instructions reviewed and post-op rehab plan reviewed and recommendations made. All of pt questions about use of L UE reviewed. Skilled Intervention: Patient was educated in proper exercise technique and purpose for exercises. Skilled judgment was provided in selection of appropriate interventions. Correct performance of therapeutic exercises was facilitated with verbal, visual and tactile cuing. Patient education as noted. Billing Therapeutic Exercise Treatment Minutes: 35 Total Treatment Time Minutes (timed/untimed): 35 Blaise Mcginnis PT * Blaise Mcginnis PT - 10/04/2021 11:16 AM EDT documented in this encounterMer[facility] Miscellaneous Notes* Telephone Encounter - Byron Jolley APRN.CNP - 09/30/2021 9:14 AM EDT Approved PDMP website checked and validated. All prescriptions have been APPROPRIATELY filled. No suspiciousactivity was identified. 09/30/2021 by Byron Jolley APRN.CNP The following approved medication requests have been transmitted electronically. Signed Prescriptions Disp Refills gabapentin (NEURONTIN) 300 mg capsule 90 capsule 1 Sig: Take 1 capsule by mouth daily at bedtime for 180 days. JAISON: No Authorizing Provider: BYRON JOLLEY APRN.CNP * Telephone Encounter - Enedelia Madrid LPN - 09/30/2021 9:07 AM EDT Patient phones requesting refills as follows: Pending Prescriptions Disp Refills GABAPENTIN 300 MG CAPSULE 90 capsule 1 Sig: Take 1 capsule by mouth daily at bedtime for 180 days. JAISON: No JEROME-07/09/21 Labs-07/09/21 NOV-01/18/22 med filled 03/23/21 ends 09/19/21 Please review and advise. Enedelia Madrid LPN documented in this encounterMer[facility]06-01-2022 History of Present illness Narrative* Blaise Mcginnis PT - 09/29/2021 5:03 PM EDT Episode Visit Count: 3 Therapist That Will Oversee The Plan Of Care: Blaise Mcginnis PT Start of Care Date: 09/16/21 Onset Date: 05/19/21 Plan of Care Certification Date: 09/16/21 Next Certification Due Date: 10/14/21 Patient Identified by Name and Date of : Yes REHABILITATION AND SPORTS THERAPY PHYSICAL THERAPY TREATMENT NOTE ASSESSMENT: Morena Martinez tolerated the session with no issues. She demonstrated difficulty with increased pain at start of session and improvements in PROM of L shoulder despite the increased pain. The patient will continue to benefit from ongoing skilled physical therapy to progress toward set goals, for reassessment by supervising therapist and to continue with post-operative protocol . PLAN FOR NEXT VISIT: Review, correct and progress HEP to tolerance. Follow post-op rehab plan of PROM and pendulums from0-2 weeks, AAROM with eventual progression to AROM from weeks 2-6 using pain as a guide. Progress to tolerance but no resistance training with L UE until week 6 post-op at the earliest. Update plan of care. SUBJECTIVE: Patient Reason for Visit: Pt reports that she woke with increased pain this morning in L mid upper arm without explanation. She reports that approximately four days again she switched from sling with abduction pillow to a standard sling that is much smaller and less bulky. She reports compliance with pendulums 3x day. She locates all pain in mid brachium. She reports that she is stillsleeping in recliner. Pain: Pain Pain Level: 7 Pain Location: Shoulder - Left;Upper Arm - Left (mostly at mid brachium) Description: Tightness;Aching (swollen) Frequency: Continuous Post Treatment Pain Post Treatment Pain Level: No Change Post Treatment Pain Location: Shoulder - Left;Upper Arm - Left Post Treatment Symptoms: After session, pt denied any increase in pain from start of session and she continued to rate her pain 7/10 as she was leaving. OBJECTIVE MEASURES WITH LEVEL OF FUNCTION: Shoulder Observations L Shoulder Presents with: Swelling Swelling: L upper arm appeared swollen but circumferential measurements: L=48cm, R=47cm UE PROM L UE PROM: seated L Shoulder Extension: 52 Degrees L Shoulder Flex: 110 Degrees L Shoulder ABduction: 105 Degrees L Shoulder External Rotation: 46 Degrees (0 degrees of abd) TREATMENT: Therapeutic Exercise: 1: HEP reviewed, corrected and continuation encouraged to tolerance. 2: L UE pendulums side to side 2x10 3: L UE pendulums front to back 2x10 4: L UE pendulums CW and CCW circles 2x10 each 5: seated PROM for L shoulder flexion by therapist 3x10 6: seated PROM for L shoulder abduction by therapist 3x10 7: seated PROM for L shoulder ER(0 degrees of abduction) by therapist 3x10 8: seated PROM for L shoulder IR(60 degrees of abduction) 3x10 in pain-free range by therapist. 9: seated roel AAROM for L shoulder flexion 2x10 in pain-free range. 10: seated roel AAROM for L shoulder abduction 2x10 in pain-free range. Skilled Intervention: Patient was educated in proper exercise technique and purpose for exercises. Skilled judgment was provided in selection of appropriate interventions. Correct performance of therapeutic exercises was facilitated with verbal, visual and tactile cuing. Patient education as noted. Billing Therapeutic Exercise Treatment Minutes: 35 Total Treatment Time Minutes (timed/untimed): 35 Blaise Mcginnis PT documented in this encounterMer[facility]05-27-2022 History of Present illness Narrative* Blaise Mcginnis PT - 09/24/2021 2:09 PM EDT Episode Visit Count: 2 Therapist That Will Oversee The Plan Of Care: Blaise Mcginnis PT Start of Care Date: 09/16/21 Onset Date: 05/19/21 Plan of Care Certification Date: 09/16/21 Next Certification Due Date: 10/14/21 Patient Identified by Name and Date of : Yes REHABILITATION AND SPORTS THERAPY PHYSICAL THERAPY TREATMENT NOTE ASSESSMENT: Morena Martinez tolerated the session with no issues. She demonstrated improvements in PROM of L shoulder. The patient will continue to benefit from ongoing skilled physical therapy to progress toward set goals and to continue with post-operative protocol . PLAN FOR NEXT VISIT: Review, correct and progress HEP to tolerance. Follow post-op rehab plan of PROM and pendulums from0-2 weeks, AAROM with eventual progression to AROM from weeks 2-6 using pain as a guide. Progress to tolerance but no resistance training with L UE until week 6 post-op at the earliest. SUBJECTIVE: Patient Reason for Visit: Pt reports that overall her shoulder is improving slightly. She reports continued pain in L shoulder that interupts her sleep. She reports compliance with HEP 2-3x day. She reports that pain is significant from 3:00pm to 8:00 and then worsens again at 1:00am. She reports an inability to sleep in bed. She reports that she is sleeping in her recliner. Pain: Pain Pain Level: 5 Pain Location: Shoulder - Left;Upper Arm - Left Description: Aching Frequency: Continuous (constant but varies in intensity) Post Treatment Pain Post Treatment Pain Level: No Change Post Treatment Pain Location: Shoulder - Left Post Treatment Symptoms: Pt denied any increase in pain following session today. OBJECTIVE MEASURES WITH LEVEL OF FUNCTION: UE PROM L UE PROM: seated L Shoulder Extension: 50 Degrees L Shoulder Flex: 93 Degrees L Shoulder ABduction: 86 Degrees L Shoulder Internal Rotation: (across body at 0 degrees of abduction) L Shoulder External Rotation: 50 Degrees TREATMENT: Therapeutic Exercise: 1: HEP reviewed, corrected and continuation encouraged to tolerance. 2: L UE pendulums side to side 2x10 3: L UE pendulums front to back 2x10 4: L UE pendulums CW and CCW circles 2x10 each 5: seated PROM for L shoulder flexion by therapist 3x10 6: seated PROM for L shoulder abduction by therapist 3x10 7: seated PROM for L shoulder ER(0 degrees of abduction) by therapist 3x10 8: seated roel AAROM for L shoulder flexion 2x10 in pain-free range. Skilled Intervention: Patient was educated in proper exercise technique and purpose for exercises. Skilled judgment was provided in selection of appropriate interventions. Correct performance of therapeutic exercises was facilitated with verbal, visual and tactile cuing. Patient education as noted. Billing Therapeutic Exercise Treatment Minutes: 30 Total Treatment Time Minutes (timed/untimed): 30 Blaise Mcginnis PT documented in this encounterMer[facility]05-20-2022 Miscellaneous Notes* Telephone Encounter - Byron Jolley APRN.CNP - 09/17/2021 10:12 AM EDT The following approved medication requests have been transmitted electronically. Pending Prescriptions Disp Refills FUROSEMIDE 40 MG TABLET 30 tablet 5 Sig: Take 1 tablet by mouth once daily. JAISON: No Byron Jolley APRN.CNP * Telephone Encounter - Enedelia Madrid LPN - 09/17/2021 10:07 AM EDT Patient phones requesting refills as follows: Pending Prescriptions Disp Refills FUROSEMIDE 40 MG TABLET 30 tablet 5 Sig: Take 1 tablet by mouth once daily. JAISON: No JEROME-07/09/21 Labs-07/09/21 NOV-01/18/22 med filled 12/30/20 Please review and advise. Enedelia Madrid LPN documented in this encounterMer[facility]05-20-2022 Miscellaneous Notes* Telephone Encounter - Ruby Matos [facility] - 09/17/2021 9:16 AM EDT [facility] Anticoagulation Episode Summary Anticoagulation Care Providers Provider Role Specialty Phone number Milka Mas MD [facility] [phone] Morena Martinez is a 56 year old year old female patient being evaluated today for a Telemanagement visit. Patient is currently on the following anticoagulant(s) Warfarin. Labs PT INR (no units) Date Value 08/03/2021 1.9 biotel 07/28/2021 1.7 (biotel) 07/13/2021 1.5 biotel INR Home CoaguChek (no units) Date Value 09/16/2021 2.0 08/19/2021 1.3 Hemoglobin (g/dL) Date Value 04/09/2021 15.2 Hematocrit (%) Date Value 04/09/2021 46.7 Platelet Count (k/uL) Date Value 04/09/2021 299 Creatinine (mg/dL) Date Value 07/01/2021 0.76 03/23/2021 0.60 12/07/2020 0.62 04/01/2020 0.70 Bilirubin, Total (mg/dL) Date Value 07/01/2021 0.7 12/07/2020 0.6 ALT (U/L) Date Value 07/01/2021 21 12/07/2020 33 AST (U/L) Date Value 07/01/2021 20 12/07/2020 35 Estimated Creatinine Clearance: 123.9 mL/min (based on SCr of 0.76 mg/dL). ALLERGIES Allergen Reactions Augmentin [Amoxicil* Other: See Comments Adverse effect, developed yeast infection Bextra [Valdecoxib] Swelling Ankle swelling Celebrex [Celecoxib] Swelling ankle swelling Erythromycin Rash Latex Lovenox [Enoxaparin* Rash Vioxx [Rofecoxib] Swelling ankle swelling Voltaren [Diclofena* Swelling ankle swelling Indication for Warfarin: FPC (current) use of anticoagulants Embolism and thrombosis (hcc) Anticoagulation Episode Summary Current INR goal: 2.0-3.0 Assessment: INR result of 2.0 is therapeutic Plan: Sent NOBOT message Advised patient to continue current weekly dose Next home INR check scheduled on 10/01/2021 Ruby Matos RPh Clinical Pharmacist, Pharmacy Anticoagulation Clinic Pharmacy Anticoagulation Clinic Pager: [phone] . documented in this encounterMercy [facility]05-19-2022 History of Present illness Narrative* Blaise Mcginnis PT - 09/16/2021 11:32 PM EDT Episode Visit Count: 1 Therapist That Will Oversee The Plan Of Care: Blaise Mcginnis PT Start of Care Date: 09/16/21 Onset Date: 05/19/21 Plan of Care Certification Date: 09/16/21 Next Certification Due Date: 10/14/21 Patient Identified by Name and Date of : Yes REHABILITATION AND SPORTS THERAPY PHYSICAL THERAPY EVALUATION PLAN OF CARE: Assessment: Morena Martinez presents with diagnosis of 2 weeks s/p L rotator cuff repair that interferes with (No true functional use of L UE.) . She presents with impairments in ADL's, independence in exercise, overall function, range of motion and strength . . Prognosis for therapy is Good due to: current objective clinical presentation;acuteness of condition;within-session changes;good support system/ coping skills. She will benefit from skilled therapy services to meet the goals established for this plan of care as noted below. Goals for Episode of Care: created on 09/16/21 through 12/09/21 [place] in home exercise program. Patient will decrease pain to 0/10 at rest and with functional activities to allow patient to improve all prior functional activities. Patient will increase active ROM of L shoulder to WFL and symmetrical to allow pt to to improve performance of ADLs. Patient will demonstrate increase in L shoulder/UE strength to 5/5 during manual muscle testing in order to improve function for basic self-care tasks, home management tasks, leisure / recreation skills and prior functional tasks. Perform all prior functional tasks without pain. Improve postural awareness. Patient Goals: regain prior functional status. Planned Interventions, Frequency, and Duration: Current Frequency: 2x/week Duration: 12 weeks Total Number of Visits Planned: 24 Planned Treatment Interventions: Therapeutic exercise (26894);Neuromuscular re- education (95215);Manual therapy ([id number]);Self-assisted management (09654);Patient/Family/Caregiver Education;Body Mechanics Training;General Conditioning PLAN FOR NEXT VISIT: Review, correct and progress HEP to tolerance. Follow post- op rehab plan of PROM and pendulums from 0-2 weeks, AAROM with eventual progression to AROM from weeks 2-6 using pain as a guide. Progress to tolerance but no resistance training with L UE until week 6 post-op at the earliest. Patient demonstrates good understanding of plan of care and treatment. The above goals and plan of care were discussed and agreed upon by patient/family. SUBJECTIVE: Morena Martinez is a 56 year old female seen today for post-op rehab following L rotator cuff repair 08/31/21. She has done nothing with L UE since surgery and has been in sling the entire 2 weeks since surgery. She reports that pain has not been well managed. She reports that pain has been shooting up and down lateral aspect of L upper arm. She is scheduled to take a beach vacation starting October 08. Referring physician is aware. Patient Goals: regain prior functional status. Functional Limitations: (No true functional use of L UE.) Prior Level of Function: Independent without limitations Relevant History Past Relevant Medical Conditions: Diabetes Past Relevant Surgical Conditions: Total Knee Replacement-Right;Rotator Cuff Repair-Left (B thumb surgery) Right or Left Handed: Right Employment: Unemployed Hobbies / Interests: iWantooting, photography Home Environment Patient Lives With: Spouse Assistance Available: PRN Intake Information: Prescription present Previous Treatment: Surgery ;Injections Pain: Pain Pain Level: 7 Pain Location: Shoulder - Left;Upper Arm - Left (lateral aspect) Description: Aching;Shooting;Stabbing;Dull Frequency: Continuous (constant but varies in intensity) Post Treatment Pain Post Treatment Pain Level: (4-5/10 after) Post Treatment Pain Location: Shoulder - Left;Upper Arm - Left Post Treatment Pain Description: (better) Post Treatment Symptoms: Pt reported a decrease in pain from 7/10 at start to 4- 5/10 after. PROMIS Scales T-scores: mean of general population = 50. 5 points is clinically meaningfully difference Percentiles provide an indication of how the patient's score ranks in relation to the general population. Higher percentile rankings indicate better function/quality of life. 50th percentile is the average of the general population and indicates half of respondents had a worse score. T-scores: mean of general population = 50. 5 points is clinically meaningfully difference Percentiles provide an indication of how the patient's score ranks in relation to the general population. Higher percentile rankings indicate better function/quality of life. 50th percentile is the average of the general population and indicates half of respondents had a worse score. OBJECTIVE MEASURES WITH LEVEL OF FUNCTION: Shoulder Observations L Shoulder Presents with: Incision;Ecchymosis Ecchymosis: post-op bruising of L shoulder Incision: 4 small surgical incisions in L shoulder that are healing very nicely and no signs of infection. UE AROM R UE AROM: seated R Shoulder Extension: 81 Degrees R Shoulder Flex: 161 Degrees R Shoulder ABduction: 180 Degrees R Shoulder Internal Rotation: 73 Degrees (90 degrees of abduction) R Shoulder External Rotation: 82 Degrees (90 degrees of abduction) UE PROM L UE PROM: seated L Shoulder Extension: 43 Degrees L Shoulder Flex: 55 Degrees L Shoulder ABduction: 68 Degrees L Shoulder Internal Rotation: (across body at 0 degrees of abduction) L Shoulder External Rotation: 16 Degrees (0 degrees of abduction) UE and Cervical Strength Strength Tested: Shoulder All L UE Strength: MMT was deferred secondary to acute nature of post-operative status. Despite MMT being deferred, strengthening will need to be a critical part of post-op PT plan to regain prior functional status. Education: Education Learning Preferences: Demonstration;Explanation;Performance;Printed Materials Barriers: None Learning/educational needs: Procedure / Surgery;Home exercise program;Plan of Care;Posture;Body Mechanics Education Provided: Yes, see treatment interventions for education provided Education Provided To: Patient Education Mode/Type: Demonstration;Explanation/Discussion;Literature/Printed Materials;Performance Response to Education/Teach Back: States/Identifies;Return Demonstration;Requires Review/AdditionalEducation TREATMENT: PT Treatment Interventions: Therapeutic Exercise Evaluation Therapeutic Exercise: 1: Extensive education on anatomy of L shoulder, procedure done and post-op rehab plan. Pt was provided very specific instructions on the difference between PROM, AAROM, AROM and strengthening. Pt was reminded several times to use pain as a guide, stopping if pain increases. All of her questions about her sling were answered and recommendations were made based on physician guidance. Pt was assisted with re-application of sling. 2: *L UE pendulums side to side 2x10 3: *L UE pendulums front to back 2x10 4: *L UE CW and CCW circles 2x10 each Skilled Intervention: Patient was educated in proper exercise technique and purpose for exercises. Reviewed and educated patient on additions/changes for home exercise program as above (*). Skilled judgment was provided in selection of appropriate interventions. Provided written instruction for home exercise program to facilitate proper performance and compliance. Correct performance of therapeutic exercises was facilitated with verbal, visual and tactile cuing. Patient education as noted. Billing * Evaluation Moderate Complexity: 1 Unit Therapeutic Exercise Treatment Minutes: 20 Total Treatment Time Minutes (timed/untimed): 45 Blaise Mcginnis PT documented in this encounterMer[facility]05-17-2022 Miscellaneous Notes* Telephone Encounter - Jovanny Peralta RPh - 09/14/2021 4:37 PM EDT Morena Martinez was called and reminded to test INR today or as soon as possible. Jovanny Peralta RPh * Telephone Encounter - Jovanny Peralta RPh - 09/07/2021 4:29 PM EDT Patient due to test INR today. Will continue to monitor for results. Jovanny Peralta RPh documented in this encounterMercy [facility]05-10-2022 Miscellaneous Notes* Telephone Encounter - Catrachito Serna Ma - 09/07/2021 10:23 AM EDT Pt currently prescribed Percocet 5-325 mg from Ortho. Pt is seeing Ortho. 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 07/09/2021 Abdominal pain, left lower quadrant 09/02/2009 03/09/2012 Diarrhea 09/02/2009 07/09/2021 Palpitations 01/29/2009 03/09/2012 Other abnormal glucose 11/19/2007 2 Dysmetabolic syndrome X 11/19/2007 07/10/19 22 Obstructive sleep apnea (adult) (pediatric) 09/3008/31/2021 documented as of this encounter (statuses as of 09/07/2021) [facility] History of Past illness Narrative* Problem Noted Date Resolved Date Tendinitis of left shoulder 08/31/2021 05/0 06/2021 Bursitis of left shoulder 08/06/20212021 Infrapatellar bursitis of right knee 08/11/2016 07/09/2021 Perirectal abscess 09/23/2015 07/09/2021 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/13/2011 07/09/2021 Abdominal pain, left lower quadrant 09/02/2009 03/09/2012 Diarrhea 09/02/2009 07/09/2021 Palpitations 01/29/2009 03/09/2012 Other abnormal glucose 11/19/2007 2 Dysmetabolic syndrome X 11/19/2007 07/10/19 22 Obstructive sleep apnea (adult) (pediatric) 09/3008/31/2021 documented as of this encounter (statuses as of 09/17/2021) [facility]22 History of Past illness Narrative* Problem Noted Date Resolved Date Tendinitis of left shoulder 08/31/2021 05/0 06/2021 Bursitis of left shoulder 08/06/20212021 Infrapatellar bursitis of right knee 08/11/2016 07/09/2021 Perirectal abscess 09/23/2015 07/09/2021 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/13/2011 07/09/2021 Abdominal pain, left lower quadrant 09/02/2009 03/09/2012 Diarrhea 09/02/2009 07/09/2021 Palpitations 01/29/2009 03/09/2012 Other abnormal glucose 11/19/2007 2 Dysmetabolic syndrome X 11/19/2007 07/10/19 22 Obstructive sleep apnea (adult) (pediatric) 09/3008/31/2021 documented as of this encounter (statuses as of 09/17/2021) [facility] History of Past illness Narrative* Problem Noted Date Resolved Date Tendinitis of left shoulder 08/31/2021 050 06/2021 Bursitis of left shoulder 08/06/20212021 Infrapatellar bursitis of right knee 08/11/2016 07/09/2021 Perirectal abscess 09/23/2015 07/09/2021 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/13/2011 07/09/2021 Abdominal pain, left lower quadrant 09/02/2009 03/09/2012 Diarrhea 09/02/2009 07/09/2021 Palpitations 01/29/2009 03/09/2012 Other abnormal glucose 11/19/2007 2 Dysmetabolic syndrome X 11/19/2007 07/10/19 22 Obstructive sleep apnea (adult) (pediatric) 09/3008/31/2021 documented as of this encounter (statuses as of 09/17/2021) [facility] History of Past illness Narrative* Problem Noted Date Resolved Date Tendinitis of left shoulder 08/31/2021 05/0 06/2021 Bursitis of left shoulder 08/06/20212021 Infrapatellar bursitis of right knee 08/11/2016 07/09/2021 Perirectal abscess 09/23/2015 07/09/2021 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/13/2011 07/09/2021 Abdominal pain, left lower quadrant 09/02/2009 03/09/2012 Diarrhea 09/02/2009 07/09/2021 Palpitations 01/29/2009 03/09/2012 Other abnormal glucose 11/19/2007 2 Dysmetabolic syndrome X 11/19/2007 07/10/19 22 Obstructive sleep apnea (adult) (pediatric) 09/3008/31/2021 documented as of this encounter (statuses as of 09/17/2021) [facility] History of Past illness Narrative* Problem Noted Date Resolved Date Tendinitis of left shoulder 08/31/2021 05/0 06/2021 Bursitis of left shoulder 08/06/20212021 Infrapatellar bursitis of right knee 08/11/2016 07/09/2021 Perirectal abscess 09/23/2015 07/09/2021 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/13/2011 07/09/2021 Abdominal pain, left lower quadrant 09/02/2009 03/09/2012 Diarrhea 09/02/2009 07/09/2021 Palpitations 01/29/2009 03/09/2012 Other abnormal glucose 11/19/2007 2 Dysmetabolic syndrome X 11/19/2007 07/10/19 22 Obstructive sleep apnea (adult) (pediatric) 09/3008/31/2021 documented as of this encounter (statuses as of 09/21/2021) [facility] History of Past illness Narrative* Problem Noted Date Resolved Date Tendinitis of left shoulder 08/31/2021 05/0 06/2021 Bursitis of left shoulder 08/06/20212021 Infrapatellar bursitis of right knee 08/11/2016 07/09/2021 Perirectal abscess 09/23/2015 07/09/2021 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/13/2011 07/09/2021 Abdominal pain, left lower quadrant 09/02/2009 03/09/2012 Diarrhea 09/02/2009 07/09/2021 Palpitations 01/29/2009 03/09/2012 Other abnormal glucose 11/19/2007 2 Dysmetabolic syndrome X 11/19/2007 07/10/19 22 Obstructive sleep apnea (adult) (pediatric) 09/3008/31/2021 documented as of this encounter (statuses as of 09/24/2021) [facility] History of Past illness Narrative* Problem Noted Date Resolved Date Tendinitis of left shoulder 08/31/2021 05/0 06/2021 Bursitis of left shoulder 08/06/20212021 Infrapatellar bursitis of right knee 08/11/2016 07/09/2021 Perirectal abscess 09/23/2015 07/09/2021 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/13/2011 07/09/2021 Abdominal pain, left lower quadrant 09/02/2009 03/09/2012 Diarrhea 09/02/2009 07/09/2021 Palpitations 01/29/2009 03/09/2012 Other abnormal glucose 11/19/2007 2 Dysmetabolic syndrome X 11/19/2007 07/10/19 Obstructive sleep apnea (adult) (pediatric) 09/3008/31/2021 documented as of this encounter (statuses as of 09/29/2021) [facility] History of Past illness Narrative* Problem Noted Date Resolved Date Tendinitis of left shoulder 08/31/2021 05/0 06/2021 Bursitis of left shoulder 08/06/20212021 Infrapatellar bursitis of right knee 08/11/2016 07/09/2021 Perirectal abscess 09/23/2015 07/09/2021 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/13/2011 07/09/2021 Abdominal pain, left lower quadrant 09/02/2009 03/09/2012 Diarrhea 09/02/2009 07/09/2021 Palpitations 01/29/2009 03/09/2012 Other abnormal glucose 11/19/2007 2 Dysmetabolic syndrome X 11/19/2007 07/10/19 22 Obstructive sleep apnea (adult) (pediatric) 09/3008/31/2021 documented as of this encounter (statuses as of 09/30/2021) [facility] History of Past illness Narrative* Problem Noted Date Resolved Date Tendinitis of left shoulder 08/31/2021 05/0 06/2021 Bursitis of left shoulder 08/06/20212021 Infrapatellar bursitis of right knee 08/11/2016 07/09/2021 Perirectal abscess 09/23/2015 07/09/2021 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/13/2011 07/09/2021 Abdominal pain, left lower quadrant 09/02/2009 03/09/2012 Diarrhea 09/02/2009 07/09/2021 Palpitations 01/29/2009 03/09/2012 Other abnormal glucose 11/19/2007 2 Dysmetabolic syndrome X 11/19/2007 07/10/19 22 Obstructive sleep apnea (adult) (pediatric) 09/3008/31/2021 documented as of this encounter (statuses as of 10/04/2021) [facility] History of Past illness Narrative* Problem Noted Date Resolved Date Tendinitis of left shoulder 08/31/2021 050 06/2021 Bursitis of left shoulder 08/06/20212021 Infrapatellar bursitis of right knee 08/11/2016 07/09/2021 Perirectal abscess 09/23/2015 07/09/2021 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/13/2011 07/09/2021 Abdominal pain, left lower quadrant 09/02/2009 03/09/2012 Diarrhea 09/02/2009 07/09/2021 Palpitations 01/29/2009 03/09/2012 Other abnormal glucose 11/19/2007 2 Dysmetabolic syndrome X 11/19/2007 07/10/19 22 Obstructive sleep apnea (adult) (pediatric) 09/3008/31/2021 documented as of this encounter (statuses as of 10/05/2021) [facility] History of Past illness Narrative* Problem Noted Date Resolved Date Tendinitis of left shoulder 08/31/2021 050 06/2021 Bursitis of left shoulder 08/06/20212021 Infrapatellar bursitis of right knee 08/11/2016 07/09/2021 Perirectal abscess 09/23/2015 07/09/2021 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/13/2011 07/09/2021 Abdominal pain, left lower quadrant 09/02/2009 03/09/2012 Diarrhea 09/02/2009 07/09/2021 Palpitations 01/29/2009 03/09/2012 Other abnormal glucose 11/19/2007 2 Dysmetabolic syndrome X 11/19/2007 07/10/19 22 Obstructive sleep apnea (adult) (pediatric) 09/3008/31/2021 documented as of this encounter (statuses as of 10/18/2021) [facility] History of Past illness Narrative* Problem Noted Date Resolved Date Tendinitis of left shoulder 08/31/2021 05/0 06/2021 Bursitis of left shoulder 08/06/20212021 Infrapatellar bursitis of right knee 08/11/2016 07/09/2021 Perirectal abscess 09/23/2015 07/09/2021 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/13/2011 07/09/2021 Abdominal pain, left lower quadrant 09/02/2009 03/09/2012 Diarrhea 09/02/2009 07/09/2021 Palpitations 01/29/2009 03/09/2012 Other abnormal glucose 11/19/2007 2 Dysmetabolic syndrome X 11/19/2007 07/10/19 22 Obstructive sleep apnea (adult) (pediatric) 09/3008/31/2021 documented as of this encounter (statuses as of 10/19/2021) [facility] History of Past illness Narrative* Problem Noted Date Resolved Date Tendinitis of left shoulder 08/31/2021 05/0 06/2021 Bursitis of left shoulder 08/06/20212021 Infrapatellar bursitis of right knee 08/11/2016 07/09/2021 Perirectal abscess 09/23/2015 07/09/2021 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/13/2011 07/09/2021 Abdominal pain, left lower quadrant 09/02/2009 03/09/2012 Diarrhea 09/02/2009 07/09/2021 Palpitations 01/29/2009 03/09/2012 Other abnormal glucose 11/19/2007 2 Dysmetabolic syndrome X 11/19/2007 07/10/19 22 Obstructive sleep apnea (adult) (pediatric) 09/3008/31/2021 documented as of this encounter (statuses as of 10/19/2021) [facility] History of Past illness Narrative* Problem Noted Date Resolved Date Tendinitis of left shoulder 08/31/2021 05/0 06/2021 Bursitis of left shoulder 08/06/20212021 Infrapatellar bursitis of right knee 08/11/2016 07/09/2021 Perirectal abscess 09/23/2015 07/09/2021 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/13/2011 07/09/2021 Abdominal pain, left lower quadrant 09/02/2009 03/09/2012 Diarrhea 09/02/2009 07/09/2021 Palpitations 01/29/2009 03/09/2012 Other abnormal glucose 11/19/2007 2 Dysmetabolic syndrome X 11/19/2007 07/10/19 22 Obstructive sleep apnea (adult) (pediatric) 09/3008/31/2021 documented as of this encounter (statuses as of 10/20/2021) [facility] History of Past illness Narrative* Problem Noted Date Resolved Date Tendinitis of left shoulder 08/31/2021 05/0 06/2021 Bursitis of left shoulder 08/06/20212021 Infrapatellar bursitis of right knee 08/11/2016 07/09/2021 Perirectal abscess 09/23/2015 07/09/2021 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/13/2011 07/09/2021 Abdominal pain, left lower quadrant 09/02/2009 03/09/2012 Diarrhea 09/02/2009 07/09/2021 Palpitations 01/29/2009 03/09/2012 Other abnormal glucose 11/19/2007 2 Dysmetabolic syndrome X 11/19/2007 07/10/19 22 Obstructive sleep apnea (adult) (pediatric) 09/3008/31/2021 documented as of this encounter (statuses as of 10/21/2021) [facility] History of Past illness Narrative* Problem Noted Date Resolved Date Tendinitis of left shoulder 08/31/2021 05/0 06/2021 Bursitis of left shoulder 08/06/20212021 Infrapatellar bursitis of right knee 08/11/2016 07/09/2021 Perirectal abscess 09/23/2015 07/09/2021 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/13/2011 07/09/2021 Abdominal pain, left lower quadrant 09/02/2009 03/09/2012 Diarrhea 09/02/2009 07/09/2021 Palpitations 01/29/2009 03/09/2012 Other abnormal glucose 11/19/2007 2 Dysmetabolic syndrome X 11/19/2007 07/10/19 22 Obstructive sleep apnea (adult) (pediatric) 09/3008/31/2021 documented as of this encounter (statuses as of 10/25/2021) [facility] History of Past illness Narrative* Problem Noted Date Resolved Date Tendinitis of left shoulder 08/31/2021 05/0 06/2021 Bursitis of left shoulder 08/06/20212021 Infrapatellar bursitis of right knee 08/11/2016 07/09/2021 Perirectal abscess 09/23/2015 07/09/2021 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/13/2011 07/09/2021 Abdominal pain, left lower quadrant 09/02/2009 03/09/2012 Diarrhea 09/02/2009 07/09/2021 Palpitations 01/29/2009 03/09/2012 Other abnormal glucose 11/19/2007 2 Dysmetabolic syndrome X 11/19/2007 07/10/19 22 Obstructive sleep apnea (adult) (pediatric) 09/3008/31/2021 documented as of this encounter (statuses as of 10/27/2021) [facility] History of Past illness Narrative* Problem Noted Date Resolved Date Tendinitis of left shoulder 08/31/2021 05/0 06/2021 Bursitis of left shoulder 08/06/20212021 Infrapatellar bursitis of right knee 08/11/2016 07/09/2021 Perirectal abscess 09/23/2015 07/09/2021 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/13/2011 07/09/2021 Abdominal pain, left lower quadrant 09/02/2009 03/09/2012 Diarrhea 09/02/2009 07/09/2021 Palpitations 01/29/2009 03/09/2012 Other abnormal glucose 11/19/2007 2 Dysmetabolic syndrome X 11/19/2007 07/10/19 22 Obstructive sleep apnea (adult) (pediatric) 09/3008/31/2021 documented as of this encounter (statuses as of 11/02/2021) [facility] History of Past illness Narrative* Problem Noted Date Resolved Date Tendinitis of left shoulder 08/31/2021 050 06/2021 Bursitis of left shoulder 08/06/20212021 Infrapatellar bursitis of right knee 08/11/2016 07/09/2021 Perirectal abscess 09/23/2015 07/09/2021 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/13/2011 07/09/2021 Abdominal pain, left lower quadrant 09/02/2009 03/09/2012 Diarrhea 09/02/2009 07/09/2021 Palpitations 01/29/2009 03/09/2012 Other abnormal glucose 11/19/2007 2 Dysmetabolic syndrome X 11/19/2007 07/10/19 22 Obstructive sleep apnea (adult) (pediatric) 09/3008/31/2021 documented as of this encounter (statuses as of 11/04/2021) [facility] History of Past illness Narrative* Problem Noted Date Resolved Date Tendinitis of left shoulder 08/31/2021 05/0 06/2021 Bursitis of left shoulder 08/06/20212021 Infrapatellar bursitis of right knee 08/11/2016 07/09/2021 Perirectal abscess 09/23/2015 07/09/2021 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/13/2011 07/09/2021 Abdominal pain, left lower quadrant 09/02/2009 03/09/2012 Diarrhea 09/02/2009 07/09/2021 Palpitations 01/29/2009 03/09/2012 Other abnormal glucose 11/19/2007 2 Dysmetabolic syndrome X 11/19/2007 07/10/19 22 Obstructive sleep apnea (adult) (pediatric) 09/3008/31/2021 documented as of this encounter (statuses as of 11/09/2021) [facility] History of Past illness Narrative* Problem Noted Date Resolved Date Tendinitis of left shoulder 08/31/2021 05/0 06/2021 Bursitis of left shoulder 08/06/20212021 Infrapatellar bursitis of right knee 08/11/2016 07/09/2021 Perirectal abscess 09/23/2015 07/09/2021 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/13/2011 07/09/2021 Abdominal pain, left lower quadrant 09/02/2009 03/09/2012 Diarrhea 09/02/2009 07/09/2021 Palpitations 01/29/2009 03/09/2012 Other abnormal glucose 11/19/2007 2 Dysmetabolic syndrome X 11/19/2007 07/10/19 22 Obstructive sleep apnea (adult) (pediatric) 09/3008/31/2021 documented as of this encounter (statuses as of 11/09/2021) [facility] History of Past illness Narrative* Problem Noted Date Resolved Date Tendinitis of left shoulder 08/31/2021 05/0 06/2021 Bursitis of left shoulder 08/06/20212021 Infrapatellar bursitis of right knee 08/11/2016 07/09/2021 Perirectal abscess 09/23/2015 07/09/2021 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/13/2011 07/09/2021 Abdominal pain, left lower quadrant 09/02/2009 03/09/2012 Diarrhea 09/02/2009 07/09/2021 Palpitations 01/29/2009 03/09/2012 Other abnormal glucose 11/19/2007 2 Dysmetabolic syndrome X 11/19/2007 07/10/19 22 Obstructive sleep apnea (adult) (pediatric) 09/3008/31/2021 documented as of this encounter (statuses as of 11/11/2021) [facility] History of Past illness Narrative* Problem Noted Date Resolved Date Tendinitis of left shoulder 08/31/2021 05/0 06/2021 Bursitis of left shoulder 08/06/20212021 Infrapatellar bursitis of right knee 08/11/2016 07/09/2021 Perirectal abscess 09/23/2015 07/09/2021 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/13/2011 07/09/2021 Abdominal pain, left lower quadrant 09/02/2009 03/09/2012 Diarrhea 09/02/2009 07/09/2021 Palpitations 01/29/2009 03/09/2012 Other abnormal glucose 11/19/2007 2 Dysmetabolic syndrome X 11/19/2007 07/10/19 22 Obstructive sleep apnea (adult) (pediatric) 09/3008/31/2021 documented as of this encounter (statuses as of 11/18/2021) [facility] History of Past illness Narrative* Problem Noted Date Resolved Date Tendinitis of left shoulder 08/31/2021 05/0 06/2021 Bursitis of left shoulder 08/06/20212021 Infrapatellar bursitis of right knee 08/11/2016 07/09/2021 Perirectal abscess 09/23/2015 07/09/2021 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/13/2011 07/09/2021 Abdominal pain, left lower quadrant 09/02/2009 03/09/2012 Diarrhea 09/02/2009 07/09/2021 Palpitations 01/29/2009 03/09/2012 Other abnormal glucose 11/19/2007 2 Dysmetabolic syndrome X 11/19/2007 07/10/19 22 Obstructive sleep apnea (adult) (pediatric) 09/3008/31/2021 documented as of this encounter (statuses as of 11/23/2021) [facility] History of Past illness Narrative* Problem Noted Date Resolved Date Tendinitis of left shoulder 08/31/2021 05/0 06/2021 Bursitis of left shoulder 08/06/20212021 Infrapatellar bursitis of right knee 08/11/2016 07/09/2021 Perirectal abscess 09/23/2015 07/09/2021 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/13/2011 07/09/2021 Abdominal pain, left lower quadrant 09/02/2009 03/09/2012 Diarrhea 09/02/2009 07/09/2021 Palpitations 01/29/2009 03/09/2012 Other abnormal glucose 11/19/2007 2 Dysmetabolic syndrome X 11/19/2007 07/10/19 22 Obstructive sleep apnea (adult) (pediatric) 09/3008/31/2021 documented as of this encounter (statuses as of 11/24/2021) [facility] History of Past illness Narrative* Problem Noted Date Resolved Date Tendinitis of left shoulder 08/31/2021 05/0 06/2021 Bursitis of left shoulder 08/06/20212021 Infrapatellar bursitis of right knee 08/11/2016 07/09/2021 Perirectal abscess 09/23/2015 07/09/2021 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/13/2011 07/09/2021 Abdominal pain, left lower quadrant 09/02/2009 03/09/2012 Diarrhea 09/02/2009 07/09/2021 Palpitations 01/29/2009 03/09/2012 Other abnormal glucose 11/19/2007 2 Dysmetabolic syndrome X 11/19/2007 07/10/19 22 Obstructive sleep apnea (adult) (pediatric) 09/3008/31/2021 documented as of this encounter (statuses as of 11/25/2021) [facility] History of Past illness Narrative* Problem Noted Date Resolved Date Tendinitis of left shoulder 08/31/2021 05/0 06/2021 Bursitis of left shoulder 08/06/20212021 Infrapatellar bursitis of right knee 08/11/2016 07/09/2021 Perirectal abscess 09/23/2015 07/09/2021 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/13/2011 07/09/2021 Abdominal pain, left lower quadrant 09/02/2009 03/09/2012 Diarrhea 09/02/2009 07/09/2021 Palpitations 01/29/2009 03/09/2012 Other abnormal glucose 11/19/2007 2 Dysmetabolic syndrome X 11/19/2007 07/10/19 22 Obstructive sleep apnea (adult) (pediatric) 09/3008/31/2021 documented as of this encounter (statuses as of 11/26/2021) [facility] History of Past illness Narrative* Problem Noted Date Resolved Date Tendinitis of left shoulder 08/31/2021 05/0 06/2021 Bursitis of left shoulder 08/06/20212021 Infrapatellar bursitis of right knee 08/11/2016 07/09/2021 Perirectal abscess 09/23/2015 07/09/2021 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/13/2011 07/09/2021 Abdominal pain, left lower quadrant 09/02/2009 03/09/2012 Diarrhea 09/02/2009 07/09/2021 Palpitations 01/29/2009 03/09/2012 Other abnormal glucose 11/19/2007 2 Dysmetabolic syndrome X 11/19/2007 07/10/19 22 Obstructive sleep apnea (adult) (pediatric) 09/3008/31/2021 documented as of this encounter (statuses as of 12/02/2021) [facility] History of Past illness Narrative* Problem Noted Date Resolved Date Tendinitis of left shoulder 08/31/2021 05/0 06/2021 Bursitis of left shoulder 08/06/20212021 Infrapatellar bursitis of right knee 08/11/2016 07/09/2021 Perirectal abscess 09/23/2015 07/09/2021 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/13/2011 07/09/2021 Abdominal pain, left lower quadrant 09/02/2009 03/09/2012 Diarrhea 09/02/2009 07/09/2021 Palpitations 01/29/2009 03/09/2012 Other abnormal glucose 11/19/2007 2 Dysmetabolic syndrome X 11/19/2007 07/10/19 22 Obstructive sleep apnea (adult) (pediatric) 09/3008/31/2021 documented as of this encounter (statuses as of 12/09/2021) [facility] History of Past illness Narrative* Problem Noted Date Resolved Date Tendinitis of left shoulder 08/31/2021 05/0 06/2021 Bursitis of left shoulder 08/06/20212021 Infrapatellar bursitis of right knee 08/11/2016 07/09/2021 Perirectal abscess 09/23/2015 07/09/2021 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/13/2011 07/09/2021 Abdominal pain, left lower quadrant 09/02/2009 03/09/2012 Diarrhea 09/02/2009 07/09/2021 Palpitations 01/29/2009 03/09/2012 Other abnormal glucose 11/19/2007 2 Dysmetabolic syndrome X 11/19/2007 07/10/19 22 Obstructive sleep apnea (adult) (pediatric) 09/3008/31/2021 documented as of this encounter (statuses as of 12/14/2021) [facility] History of Past illness Narrative* Problem Noted Date Resolved Date Tendinitis of left shoulder 08/31/2021 05/0 06/2021 Bursitis of left shoulder 08/06/20212021 Infrapatellar bursitis of right knee 08/11/2016 07/09/2021 Perirectal abscess 09/23/2015 07/09/2021 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/13/2011 07/09/2021 Abdominal pain, left lower quadrant 09/02/2009 03/09/2012 Diarrhea 09/02/2009 07/09/2021 Palpitations 01/29/2009 03/09/2012 Other abnormal glucose 11/19/2007 2 Dysmetabolic syndrome X 11/19/2007 07/10/19 22 Obstructive sleep apnea (adult) (pediatric) 09/3008/31/2021 documented as of this encounter (statuses as of 12/17/2021) [facility] History of Past illness Narrative* Problem Noted Date Resolved Date Tendinitis of left shoulder 08/31/2021 05/0 06/2021 Bursitis of left shoulder 08/06/20212021 Infrapatellar bursitis of right knee 08/11/2016 07/09/2021 Perirectal abscess 09/23/2015 07/09/2021 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/13/2011 07/09/2021 Abdominal pain, left lower quadrant 09/02/2009 03/09/2012 Diarrhea 09/02/2009 07/09/2021 Palpitations 01/29/2009 03/09/2012 Other abnormal glucose 11/19/2007 2 Dysmetabolic syndrome X 11/19/2007 07/10/19 22 Obstructive sleep apnea (adult) (pediatric) 09/3008/31/2021 documented as of this encounter (statuses as of 12/23/2021) [facility] of Past illness Narrative* Problem Noted Date Resolved Date Tendinitis of left shoulder 08/31/2021 050 06/2021 Bursitis of left shoulder 08/06/20212021 Infrapatellar bursitis of right knee 08/11/2016 07/09/2021 Perirectal abscess 09/23/2015 07/09/2021 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/13/2011 07/09/2021 Abdominal pain, left lower quadrant 09/02/2009 03/09/2012 Diarrhea 09/02/2009 07/09/2021 Palpitations 01/29/2009 03/09/2012 Other abnormal glucose 11/19/2007 2 Dysmetabolic syndrome X 11/19/2007 07/10/19 22 Obstructive sleep apnea (adult) (pediatric) 09/3008/31/2021 documented as of this encounter (statuses as of 12/30/2021) [facility] of Past illness Narrative* Problem Noted Date Resolved Date Tendinitis of left shoulder 08/31/2021 05/0 06/2021 Bursitis of left shoulder 08/06/20212021 Infrapatellar bursitis of right knee 08/11/2016 07/09/2021 Perirectal abscess 09/23/2015 07/09/2021 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/13/2011 07/09/2021 Abdominal pain, left lower quadrant 09/02/2009 03/09/2012 Diarrhea 09/02/2009 07/09/2021 Palpitations 01/29/2009 03/09/2012 Other abnormal glucose 11/19/2007 2 Dysmetabolic syndrome X 11/19/2007 07/10/19 22 Obstructive sleep apnea (adult) (pediatric) 09/3008/31/2021 documented as of this encounter (statuses as of 01/04/2022) [facility] of Past illness Narrative* Problem Noted Date Resolved Date Tendinitis of left shoulder 08/31/2021 05/0 06/2021 Bursitis of left shoulder 08/06/20212021 Infrapatellar bursitis of right knee 08/11/2016 07/09/2021 Perirectal abscess 09/23/2015 07/09/2021 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/13/2011 07/09/2021 Abdominal pain, left lower quadrant 09/02/2009 03/09/2012 Diarrhea 09/02/2009 07/09/2021 Palpitations 01/29/2009 03/09/2012 Other abnormal glucose 11/19/2007 2 Dysmetabolic syndrome X 11/19/2007 07/10/19 22 Obstructive sleep apnea (adult) (pediatric) 09/3008/31/2021 documented as of this encounter (statuses as of 01/10/2022) [facility] of Past illness Narrative* Problem Noted Date Resolved Date Tendinitis of left shoulder 08/31/2021 05/0 06/2021 Bursitis of left shoulder 08/06/20212021 Infrapatellar bursitis of right knee 08/11/2016 07/09/2021 Perirectal abscess 09/23/2015 07/09/2021 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/13/2011 07/09/2021 Abdominal pain, left lower quadrant 09/02/2009 03/09/2012 Diarrhea 09/02/2009 07/09/2021 Palpitations 01/29/2009 03/09/2012 Other abnormal glucose 11/19/2007 2 Dysmetabolic syndrome X 11/19/2007 07/10/19 22 Obstructive sleep apnea (adult) (pediatric) 09/3008/31/2021 documented as of this encounter (statuses as of 01/18/2022) [facility] History of Past illness Narrative* Problem Noted Date Resolved Date Tendinitis of left shoulder 08/31/2021 05/0 06/2021 Bursitis of left shoulder 08/06/20212021 Infrapatellar bursitis of right knee 08/11/2016 07/09/2021 Perirectal abscess 09/23/2015 07/09/2021 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/13/2011 07/09/2021 Abdominal pain, left lower quadrant 09/02/2009 03/09/2012 Diarrhea 09/02/2009 07/09/2021 Palpitations 01/29/2009 03/09/2012 Other abnormal glucose 11/19/2007 2 Dysmetabolic syndrome X 11/19/2007 07/10/19 22 Obstructive sleep apnea (adult) (pediatric) 09/3008/31/2021 documented as of this encounter (statuses as of 01/24/2022) [facility]22 History of Past illness Narrative* Problem Noted Date Resolved Date Tendinitis of left shoulder 08/31/2021 05/0 06/2021 Bursitis of left shoulder 08/06/20212021 Infrapatellar bursitis of right knee 08/11/2016 07/09/2021 Perirectal abscess 09/23/2015 07/09/2021 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/13/2011 07/09/2021 Abdominal pain, left lower quadrant 09/02/2009 03/09/2012 Diarrhea 09/02/2009 07/09/2021 Palpitations 01/29/2009 03/09/2012 Other abnormal glucose 11/19/2007 2 Dysmetabolic syndrome X 11/19/2007 07/10/19 22 Obstructive sleep apnea (adult) (pediatric) 09/3008/31/2021 documented as of this encounter (statuses as of 02/05/2022) [facility] History of Past illness Narrative* Problem Noted Date Resolved Date Tendinitis of left shoulder 08/31/2021 050 06/2021 Bursitis of left shoulder 08/06/20212 Infrapatellar bursitis of right knee 08/11/2016 07/09/2021 Perirectal abscess 09/23/2015 07/09/2021 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/13/2011 07/09/2021 Abdominal pain, left lower quadrant 09/02/2009 03/09/2012 Diarrhea 09/02/2009 07/09/2021 Palpitations 01/29/2009 03/09/2012 Other abnormal glucose 11/19/2007 2 Dysmetabolic syndrome X 11/19/2007 07/10/19 22 Obstructive sleep apnea (adult) (pediatric) 09/3008/31/2021 documented as of this encounter (statuses as of 02/07/2022) [facility] History of Past illness Narrative* Problem Noted Date Resolved Date Tendinitis of left shoulder 08/31/2021 05/0 06/2021 Bursitis of left shoulder 08/06/20212021 Infrapatellar bursitis of right knee 08/11/2016 07/09/2021 Perirectal abscess 09/23/2015 07/09/2021 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/13/2011 07/09/2021 Abdominal pain, left lower quadrant 09/02/2009 03/09/2012 Diarrhea 09/02/2009 07/09/2021 Palpitations 01/29/2009 03/09/2012 Other abnormal glucose 11/19/2007 2 Dysmetabolic syndrome X 11/19/2007 07/10/19 22 Obstructive sleep apnea (adult) (pediatric) 09/3008/31/2021 documented as of this encounter (statuses as of 02/14/2022) [facility] History of Past illness Narrative* Problem Noted Date Resolved Date Tendinitis of left shoulder 08/31/2021 05/0 06/2021 Bursitis of left shoulder 08/06/20212021 Infrapatellar bursitis of right knee 08/11/2016 07/09/2021 Perirectal abscess 09/23/2015 07/09/2021 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/13/2011 07/09/2021 Abdominal pain, left lower quadrant 09/02/2009 03/09/2012 Diarrhea 09/02/2009 07/09/2021 Palpitations 01/29/2009 03/09/2012 Other abnormal glucose 11/19/2007 2 Dysmetabolic syndrome X 11/19/2007 07/10/19 22 Obstructive sleep apnea (adult) (pediatric) 09/3008/31/2021 documented as of this encounter (statuses as of 02/16/2022) [facility] History of Past illness Narrative* Problem Noted Date Resolved Date Tendinitis of left shoulder 08/31/2021 05/0 06/2021 Bursitis of left shoulder 08/06/20212021 Infrapatellar bursitis of right knee 08/11/2016 07/09/2021 Perirectal abscess 09/23/2015 07/09/2021 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/13/2011 07/09/2021 Abdominal pain, left lower quadrant 09/02/2009 03/09/2012 Diarrhea 09/02/2009 07/09/2021 Palpitations 01/29/2009 03/09/2012 Other abnormal glucose 11/19/2007 2 Dysmetabolic syndrome X 11/19/2007 07/10/19 22 Obstructive sleep apnea (adult) (pediatric) 09/3008/31/2021 documented as of this encounter (statuses as of 03/01/2022) [facility] History of Past illness Narrative* Problem Noted Date Resolved Date Tendinitis of left shoulder 08/31/2021 05/0 06/2021 Bursitis of left shoulder 08/06/20212021 Infrapatellar bursitis of right knee 08/11/2016 07/09/2021 Perirectal abscess 09/23/2015 07/09/2021 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/13/2011 07/09/2021 Abdominal pain, left lower quadrant 09/02/2009 03/09/2012 Diarrhea 09/02/2009 07/09/2021 Palpitations 01/29/2009 03/09/2012 Other abnormal glucose 11/19/2007 2 Dysmetabolic syndrome X 11/19/2007 07/10/19 22 Obstructive sleep apnea (adult) (pediatric) 09/3008/31/2021 documented as of this encounter (statuses as of 03/07/2022) [facility] History of Past illness Narrative* Problem Noted Date Resolved Date Tendinitis of left shoulder 08/31/2021 05/0 06/2021 Bursitis of left shoulder 08/06/20212021 Infrapatellar bursitis of right knee 08/11/2016 07/09/2021 Perirectal abscess 09/23/2015 07/09/2021 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/13/2011 07/09/2021 Abdominal pain, left lower quadrant 09/02/2009 03/09/2012 Diarrhea 09/02/2009 07/09/2021 Palpitations 01/29/2009 03/09/2012 Other abnormal glucose 11/19/2007 2 Dysmetabolic syndrome X 11/19/2007 07/10/19 22 Obstructive sleep apnea (adult) (pediatric) 09/3008/31/2021 documented as of this encounter (statuses as of 03/10/2022) [facility] History of Past illness Narrative* Problem Noted Date Resolved Date Tendinitis of left shoulder 08/31/2021 050 06/2021 Bursitis of left shoulder 08/06/20212021 Infrapatellar bursitis of right knee 08/11/2016 07/09/2021 Perirectal abscess 09/23/2015 07/09/2021 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/13/2011 07/09/2021 Abdominal pain, left lower quadrant 09/02/2009 03/09/2012 Diarrhea 09/02/2009 07/09/2021 Palpitations 01/29/2009 03/09/2012 Other abnormal glucose 11/19/2007 2 Dysmetabolic syndrome X 11/19/2007 07/10/19 22 Obstructive sleep apnea (adult) (pediatric) 09/3008/31/2021 documented as of this encounter (statuses as of 03/16/2022) [facility] History of Past illness Narrative* Problem Noted Date Resolved Date Tendinitis of left shoulder 08/31/2021 05/0 06/2021 Bursitis of left shoulder 08/06/20212021 Infrapatellar bursitis of right knee 08/11/2016 07/09/2021 Perirectal abscess 09/23/2015 07/09/2021 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/13/2011 07/09/2021 Abdominal pain, left lower quadrant 09/02/2009 03/09/2012 Diarrhea 09/02/2009 07/09/2021 Palpitations 01/29/2009 03/09/2012 Other abnormal glucose 11/19/2007 Dysmetabolic syndrome X 11/19/2007 07/10/19 22 Obstructive sleep apnea (adult) (pediatric) 09/3008/31/2021 documented as of this encounter (statuses as of 03/21/2022) [facility] History of Past illness Narrative* Problem Noted Date Resolved Date Tendinitis of left shoulder 08/31/2021 050 06/2021 Bursitis of left shoulder 08/06/20212021 Infrapatellar bursitis of right knee 08/11/2016 07/09/2021 Perirectal abscess 09/23/2015 07/09/2021 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/13/2011 07/09/2021 Abdominal pain, left lower quadrant 09/02/2009 03/09/2012 Diarrhea 09/02/2009 07/09/2021 Palpitations 01/29/2009 03/09/2012 Other abnormal glucose 11/19/2007 2 Dysmetabolic syndrome X 11/19/2007 07/10/19 22 Obstructive sleep apnea (adult) (pediatric) 09/3008/31/2021 documented as of this encounter (statuses as of 03/21/2022) [facility] History of Past illness Narrative* Problem Noted Date Resolved Date Tendinitis of left shoulder 08/31/2021 050 06/2021 Bursitis of left shoulder 08/06/20212021 Infrapatellar bursitis of right knee 08/11/2016 07/09/2021 Perirectal abscess 09/23/2015 07/09/2021 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/13/2011 07/09/2021 Abdominal pain, left lower quadrant 09/02/2009 03/09/2012 Diarrhea 09/02/2009 07/09/2021 Palpitations 01/29/2009 03/09/2012 Other abnormal glucose 11/19/2007 2 Dysmetabolic syndrome X 11/19/2007 07/10/19 22 Obstructive sleep apnea (adult) (pediatric) 09/3008/31/2021 documented as of this encounter (statuses as of 03/22/2022) [facility] History of Past illness Narrative* Problem Noted Date Resolved Date Tendinitis of left shoulder 08/31/2021 05/0 06/2021 Bursitis of left shoulder 08/06/20212021 Infrapatellar bursitis of right knee 08/11/2016 07/09/2021 Perirectal abscess 09/23/2015 07/09/2021 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/13/2011 07/09/2021 Abdominal pain, left lower quadrant 09/02/2009 03/09/2012 Diarrhea 09/02/2009 07/09/2021 Palpitations 01/29/2009 03/09/2012 Other abnormal glucose 11/19/2007 2 Dysmetabolic syndrome X 11/19/2007 07/10/19 22 Obstructive sleep apnea (adult) (pediatric) 09/3008/31/2021 documented as of this encounter (statuses as of 03/29/2022) [facility] History of Past illness Narrative* Problem Noted Date Resolved Date Tendinitis of left shoulder 08/31/2021 05/0 06/2021 Bursitis of left shoulder 08/06/20212021 Infrapatellar bursitis of right knee 08/11/2016 07/09/2021 Perirectal abscess 09/23/2015 07/09/2021 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/13/2011 07/09/2021 Abdominal pain, left lower quadrant 09/02/2009 03/09/2012 Diarrhea 09/02/2009 07/09/2021 Palpitations 01/29/2009 03/09/2012 Other abnormal glucose 11/19/2007 2 Dysmetabolic syndrome X 11/19/2007 07/10/19 22 Obstructive sleep apnea (adult) (pediatric) 09/3008/31/2021 documented as of this encounter (statuses as of 04/04/2022) [facility] History of Past illness Narrative* Problem Noted Date Resolved Date Tendinitis of left shoulder 08/31/2021 05/0 06/2021 Bursitis of left shoulder 08/06/20212021 Infrapatellar bursitis of right knee 08/11/2016 07/09/2021 Perirectal abscess 09/23/2015 07/09/2021 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/13/2011 07/09/2021 Abdominal pain, left lower quadrant 09/02/2009 03/09/2012 Diarrhea 09/02/2009 07/09/2021 Palpitations 01/29/2009 03/09/2012 Other abnormal glucose 11/19/2007 2 Dysmetabolic syndrome X 11/19/2007 07/10/19 22 Obstructive sleep apnea (adult) (pediatric) 09/3008/31/2021 documented as of this encounter (statuses as of 04/06/2022) [facility] History of Past illness Narrative* Problem Noted Date Resolved Date Tendinitis of left shoulder 08/31/2021 050 06/2021 Bursitis of left shoulder 08/06/20212021 Infrapatellar bursitis of right knee 08/11/2016 07/09/2021 Perirectal abscess 09/23/2015 07/09/2021 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/13/2011 07/09/2021 Abdominal pain, left lower quadrant 09/02/2009 03/09/2012 Diarrhea 09/02/2009 07/09/2021 Palpitations 01/29/2009 03/09/2012 Other abnormal glucose 11/19/2007 2 Dysmetabolic syndrome X 11/19/2007 07/10/19 22 Obstructive sleep apnea (adult) (pediatric) 09/3008/31/2021 documented as of this encounter (statuses as of 04/07/2022) [facility] History of Past illness Narrative* Problem Noted Date Resolved Date Tendinitis of left shoulder 08/31/2021 05/0 06/2021 Bursitis of left shoulder 08/06/20212021 Infrapatellar bursitis of right knee 08/11/2016 07/09/2021 Perirectal abscess 09/23/2015 07/09/2021 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/13/2011 07/09/2021 Abdominal pain, left lower quadrant 09/02/2009 03/09/2012 Diarrhea 09/02/2009 07/09/2021 Palpitations 01/29/2009 03/09/2012 Other abnormal glucose 11/19/2007 2 Dysmetabolic syndrome X 11/19/2007 07/10/19 22 Obstructive sleep apnea (adult) (pediatric) 09/3008/31/2021 documented as of this encounter (statuses as of 04/24/2022) [facility] History of Past illness Narrative* Problem Noted Date Resolved Date Tendinitis of left shoulder 08/31/2021 050 06/2021 Bursitis of left shoulder 08/06/20212021 Infrapatellar bursitis of right knee 08/11/2016 07/09/2021 Perirectal abscess 09/23/2015 07/09/2021 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/13/2011 07/09/2021 Abdominal pain, left lower quadrant 09/02/2009 03/09/2012 Diarrhea 09/02/2009 07/09/2021 Palpitations 01/29/2009 03/09/2012 Other abnormal glucose 11/19/2007 2 Dysmetabolic syndrome X 11/19/2007 07/10/19 22 Obstructive sleep apnea (adult) (pediatric) 09/3008/31/2021 documented as of this encounter (statuses as of 05/04/2022) [facility] History of Past illness Narrative* Problem Noted Date Resolved Date Tendinitis of left shoulder 08/31/2021 050 06/2021 Bursitis of left shoulder 08/06/20212021 Infrapatellar bursitis of right knee 08/11/2016 07/09/2021 Perirectal abscess 09/23/2015 07/09/2021 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/13/2011 07/09/2021 Abdominal pain, left lower quadrant 09/02/2009 03/09/2012 Diarrhea 09/02/2009 07/09/2021 Palpitations 01/29/2009 03/09/2012 Other abnormal glucose 11/19/2007 2 Dysmetabolic syndrome X 11/19/2007 07/10/19 22 Obstructive sleep apnea (adult) (pediatric) 09/3008/31/2021 documented as of this encounter (statuses as of 05/09/2022) [facility] History of Past illness Narrative* Problem Noted Date Resolved Date Tendinitis of left shoulder 08/31/2021 05/0 06/2021 Bursitis of left shoulder 08/06/20212021 Infrapatellar bursitis of right knee 08/11/2016 07/09/2021 Perirectal abscess 09/23/2015 07/09/2021 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/13/2011 07/09/2021 Abdominal pain, left lower quadrant 09/02/2009 03/09/2012 Diarrhea 09/02/2009 07/09/2021 Palpitations 01/29/2009 03/09/2012 Other abnormal glucose 11/19/2007 2 Dysmetabolic syndrome X 11/19/2007 07/10/19 22 Obstructive sleep apnea (adult) (pediatric) 09/3008/31/2021 documented as of this encounter (statuses as of 05/10/2022) [facility] History of Past illness Narrative* Problem Noted Date Resolved Date Tendinitis of left shoulder 08/31/2021 05/0 06/2021 Bursitis of left shoulder 08/06/20212021 Infrapatellar bursitis of right knee 08/11/2016 07/09/2021 Perirectal abscess 09/23/2015 07/09/2021 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/13/2011 07/09/2021 Abdominal pain, left lower quadrant 09/02/2009 03/09/2012 Diarrhea 09/02/2009 07/09/2021 Palpitations 01/29/2009 03/09/2012 Other abnormal glucose 11/19/2007 2 Dysmetabolic syndrome X 11/19/2007 07/10/19 22 Obstructive sleep apnea (adult) (pediatric) 09/3008/31/2021 documented as of this encounter (statuses as of 05/16/2022) [facility] History of Past illness Narrative* Problem Noted Date Resolved Date Tendinitis of left shoulder 08/31/2021 05/0 06/2021 Bursitis of left shoulder 08/06/20212021 Infrapatellar bursitis of right knee 08/11/2016 07/09/2021 Perirectal abscess 09/23/2015 07/09/2021 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/13/2011 07/09/2021 Abdominal pain, left lower quadrant 09/02/2009 03/09/2012 Diarrhea 09/02/2009 07/09/2021 Palpitations 01/29/2009 03/09/2012 Other abnormal glucose 11/19/2007 2 Dysmetabolic syndrome X 11/19/2007 07/10/19 22 Obstructive sleep apnea (adult) (pediatric) 09/3008/31/2021 documented as of this encounter (statuses as of 05/16/2022) [facility] History of Past illness Narrative* Problem Noted Date Resolved Date Tendinitis of left shoulder 08/31/2021 05/0 06/2021 Bursitis of left shoulder 08/06/20212021 Infrapatellar bursitis of right knee 08/11/2016 07/09/2021 Perirectal abscess 09/23/2015 07/09/2021 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/13/2011 07/09/2021 Abdominal pain, left lower quadrant 09/02/2009 03/09/2012 Diarrhea 09/02/2009 07/09/2021 Palpitations 01/29/2009 03/09/2012 Other abnormal glucose 11/19/2007 2 Dysmetabolic syndrome X 11/19/2007 07/10/19 22 Obstructive sleep apnea (adult) (pediatric) 09/3008/31/2021 documented as of this encounter (statuses as of 05/23/2022) [facility] History of Past illness Narrative* Problem Noted Date Resolved Date Tendinitis of left shoulder 08/31/2021 05/0 06/2021 Bursitis of left shoulder 08/06/20212021 Infrapatellar bursitis of right knee 08/11/2016 07/09/2021 Perirectal abscess 09/23/2015 07/09/2021 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/13/2011 07/09/2021 Abdominal pain, left lower quadrant 09/02/2009 03/09/2012 Diarrhea 09/02/2009 07/09/2021 Palpitations 01/29/2009 03/09/2012 Other abnormal glucose 11/19/2007 2 Dysmetabolic syndrome X 11/19/2007 07/10/19 22 Obstructive sleep apnea (adult) (pediatric) 09/3008/31/2021 documented as of this encounter (statuses as of 06/08/2022) [facility] History of Past illness Narrative* Problem Noted Date Resolved Date Tendinitis of left shoulder 08/31/2021 05/0 06/2021 Bursitis of left shoulder 08/06/20212021 Infrapatellar bursitis of right knee 08/11/2016 07/09/2021 Perirectal abscess 09/23/2015 07/09/2021 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/13/2011 07/09/2021 Abdominal pain, left lower quadrant 09/02/2009 03/09/2012 Diarrhea 09/02/2009 07/09/2021 Palpitations 01/29/2009 03/09/2012 Other abnormal glucose 11/19/2007 2 Dysmetabolic syndrome X 11/19/2007 07/10/19 22 Obstructive sleep apnea (adult) (pediatric) 09/3008/31/2021 documented as of this encounter (statuses as of 06/09/2022) [facility] History of Past illness Narrative* Problem Noted Date Resolved Date Tendinitis of left shoulder 08/31/2021 05/0 06/2021 Bursitis of left shoulder 08/06/20212021 Infrapatellar bursitis of right knee 08/11/2016 07/09/2021 Perirectal abscess 09/23/2015 07/09/2021 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/13/2011 07/09/2021 Abdominal pain, left lower quadrant 09/02/2009 03/09/2012 Diarrhea 09/02/2009 07/09/2021 Palpitations 01/29/2009 03/09/2012 Other abnormal glucose 11/19/2007 2 Dysmetabolic syndrome X 11/19/2007 07/10/19 22 Obstructive sleep apnea (adult) (pediatric) 09/3008/31/2021 documented as of this encounter (statuses as of 06/24/2022) [facility] History of Past illness Narrative* Problem Noted Date Resolved Date Tendinitis of left shoulder 08/31/2021 05/0 06/2021 Bursitis of left shoulder 08/06/20212021 Infrapatellar bursitis of right knee 08/11/2016 07/09/2021 Perirectal abscess 09/23/2015 07/09/2021 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/13/2011 07/09/2021 Abdominal pain, left lower quadrant 09/02/2009 03/09/2012 Diarrhea 09/02/2009 07/09/2021 Palpitations 01/29/2009 03/09/2012 Other abnormal glucose 11/19/2007 2 Dysmetabolic syndrome X 11/19/2007 07/10/19 22 Obstructive sleep apnea (adult) (pediatric) 09/3008/31/2021 documented as of this encounter (statuses as of 07/07/2022) [facility] History of Past illness Narrative* Problem Noted Date Resolved Date Tendinitis of left shoulder 08/31/2021 05/0 06/2021 Bursitis of left shoulder 08/06/20212021 Infrapatellar bursitis of right knee 08/11/2016 07/09/2021 Perirectal abscess 09/23/2015 07/09/2021 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/13/2011 07/09/2021 Abdominal pain, left lower quadrant 09/02/2009 03/09/2012 Diarrhea 09/02/2009 07/09/2021 Palpitations 01/29/2009 03/09/2012 Other abnormal glucose 11/19/2007 2 Dysmetabolic syndrome X 11/19/2007 07/10/19 22 Obstructive sleep apnea (adult) (pediatric) 09/3008/31/2021 documented as of this encounter (statuses as of 07/19/2022) [facility] History of Past illness Narrative* Problem Noted Date Resolved Date Tendinitis of left shoulder 08/31/2021 05/0 06/2021 Bursitis of left shoulder 08/06/20212021 Infrapatellar bursitis of right knee 08/11/2016 07/09/2021 Perirectal abscess 09/23/2015 07/09/2021 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/13/2011 07/09/2021 Abdominal pain, left lower quadrant 09/02/2009 03/09/2012 Diarrhea 09/02/2009 07/09/2021 Palpitations 01/29/2009 03/09/2012 Other abnormal glucose 11/19/2007 2 Dysmetabolic syndrome X 11/19/2007 07/10/19 22 Obstructive sleep apnea (adult) (pediatric) 09/3008/31/2021 documented as of this encounter (statuses as of 07/22/2022) [facility] History of Past illness Narrative* Problem Noted Date Resolved Date Tendinitis of left shoulder 08/31/2021 05/0 06/2021 Bursitis of left shoulder 08/06/20212021 Infrapatellar bursitis of right knee 08/11/2016 07/09/2021 Perirectal abscess 09/23/2015 07/09/2021 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/13/2011 07/09/2021 Abdominal pain, left lower quadrant 09/02/2009 03/09/2012 Diarrhea 09/02/2009 07/09/2021 Palpitations 01/29/2009 03/09/2012 Other abnormal glucose 11/19/2007 2 Dysmetabolic syndrome X 11/19/2007 07/10/19 22 Obstructive sleep apnea (adult) (pediatric) 09/3008/31/2021 documented as of this encounter (statuses as of 07/26/2022) [facility] History of Past illness Narrative* Problem Noted Date Resolved Date Tendinitis of left shoulder 08/31/2021 05/0 06/2021 Bursitis of left shoulder 08/06/20212021 Infrapatellar bursitis of right knee 08/11/2016 07/09/2021 Perirectal abscess 09/23/2015 07/09/2021 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/13/2011 07/09/2021 Abdominal pain, left lower quadrant 09/02/2009 03/09/2012 Diarrhea 09/02/2009 07/09/2021 Palpitations 01/29/2009 03/09/2012 Other abnormal glucose 11/19/2007 2 Dysmetabolic syndrome X 11/19/2007 07/10/19 22 Obstructive sleep apnea (adult) (pediatric) 09/3008/31/2021 documented as of this encounter (statuses as of 07/26/2022) [facility] History of Past illness Narrative* Problem Noted Date Resolved Date Tendinitis of left shoulder 08/31/2021 05/0 06/2021 Bursitis of left shoulder 08/06/20212021 Infrapatellar bursitis of right knee 08/11/2016 07/09/2021 Perirectal abscess 09/23/2015 07/09/2021 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/13/2011 07/09/2021 Abdominal pain, left lower quadrant 09/02/2009 03/09/2012 Diarrhea 09/02/2009 07/09/2021 Palpitations 01/29/2009 03/09/2012 Other abnormal glucose 11/19/2007 2 Dysmetabolic syndrome X 11/19/2007 07/10/19 22 Obstructive sleep apnea (adult) (pediatric) 09/3008/31/2021 documented as of this encounter (statuses as of 07/28/2022) [facility] History of Past illness Narrative* Problem Noted Date Resolved Date Tendinitis of left shoulder 08/31/2021 05/0 06/2021 Bursitis of left shoulder 08/06/20212021 Infrapatellar bursitis of right knee 08/11/2016 07/09/2021 Perirectal abscess 09/23/2015 07/09/2021 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/13/2011 07/09/2021 Abdominal pain, left lower quadrant 09/02/2009 03/09/2012 Diarrhea 09/02/2009 07/09/2021 Palpitations 01/29/2009 03/09/2012 Other abnormal glucose 11/19/2007 2 Dysmetabolic syndrome X 11/19/2007 07/10/19 22 Obstructive sleep apnea (adult) (pediatric) 09/3008/31/2021 documented as of this encounter (statuses as of 07/29/2022) [facility] of Past illness Narrative* Problem Noted Date Resolved Date Tendinitis of left shoulder 08/31/2021 050 06/2021 Bursitis of left shoulder 08/06/20212021 Infrapatellar bursitis of right knee 08/11/2016 07/09/2021 Perirectal abscess 09/23/2015 07/09/2021 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/13/2011 07/09/2021 Abdominal pain, left lower quadrant 09/02/2009 03/09/2012 Diarrhea 09/02/2009 07/09/2021 Palpitations 01/29/2009 03/09/2012 Other abnormal glucose 11/19/2007 2 Dysmetabolic syndrome X 11/19/2007 07/10/19 22 Obstructive sleep apnea (adult) (pediatric) 09/3008/31/2021 documented as of this encounter (statuses as of 08/12/2022) [facility] of Past illness Narrative* Problem Noted Date Resolved Date Tendinitis of left shoulder 08/31/2021 05/0 06/2021 Bursitis of left shoulder 08/06/20212021 Infrapatellar bursitis of right knee 08/11/2016 07/09/2021 Perirectal abscess 09/23/2015 07/09/2021 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/13/2011 07/09/2021 Abdominal pain, left lower quadrant 09/02/2009 03/09/2012 Diarrhea 09/02/2009 07/09/2021 Palpitations 01/29/2009 03/09/2012 Other abnormal glucose 11/19/2007 2 Dysmetabolic syndrome X 11/19/2007 07/10/19 22 Obstructive sleep apnea (adult) (pediatric) 09/3008/31/2021 documented as of this encounter (statuses as of 08/25/2022) [facility] of Past illness Narrative* Problem Noted Date Resolved Date Tendinitis of left shoulder 08/31/2021 05/0 06/2021 Bursitis of left shoulder 08/06/20212021 Infrapatellar bursitis of right knee 08/11/2016 07/09/2021 Perirectal abscess 09/23/2015 07/09/2021 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/13/2011 07/09/2021 Abdominal pain, left lower quadrant 09/02/2009 03/09/2012 Diarrhea 09/02/2009 07/09/2021 Palpitations 01/29/2009 03/09/2012 Other abnormal glucose 11/19/2007 2 Dysmetabolic syndrome X 11/19/2007 07/10/19 22 Obstructive sleep apnea (adult) (pediatric) 09/3008/31/2021 documented as of this encounter (statuses as of 08/30/2022) [facility] of Past illness Narrative* Problem Noted Date Resolved Date Tendinitis of left shoulder 08/31/2021 05/0 06/2021 Bursitis of left shoulder 08/06/20212021 Infrapatellar bursitis of right knee 08/11/2016 07/09/2021 Perirectal abscess 09/23/2015 07/09/2021 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/13/2011 07/09/2021 Abdominal pain, left lower quadrant 09/02/2009 03/09/2012 Diarrhea 09/02/2009 07/09/2021 Palpitations 01/29/2009 03/09/2012 Other abnormal glucose 11/19/2007 2 Dysmetabolic syndrome X 11/19/2007 07/10/19 22 Obstructive sleep apnea (adult) (pediatric) 09/3008/31/2021 documented as of this encounter (statuses as of 09/07/2022) [facility]22 History of Past illness Narrative* Problem Noted Date Resolved Date Tendinitis of left shoulder 08/31/2021 05/0 06/2021 Bursitis of left shoulder 08/06/20212021 Infrapatellar bursitis of right knee 08/11/2016 07/09/2021 Perirectal abscess 09/23/2015 07/09/2021 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/13/2011 07/09/2021 Abdominal pain, left lower quadrant 09/02/2009 03/09/2012 Diarrhea 09/02/2009 07/09/2021 Palpitations 01/29/2009 03/09/2012 Other abnormal glucose 11/19/2007 2 Dysmetabolic syndrome X 11/19/2007 07/10/19 22 Obstructive sleep apnea (adult) (pediatric) 09/3008/31/2021 documented as of this encounter (statuses as of 09/29/2022) [facility] History of Past illness Narrative* Problem Noted Date Resolved Date Tendinitis of left shoulder 08/31/2021 05/0 06/2021 Bursitis of left shoulder 08/06/20212021 Infrapatellar bursitis of right knee 08/11/2016 07/09/2021 Perirectal abscess 09/23/2015 07/09/2021 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/13/2011 07/09/2021 Abdominal pain, left lower quadrant 09/02/2009 03/09/2012 Diarrhea 09/02/2009 07/09/2021 Palpitations 01/29/2009 03/09/2012 Other abnormal glucose 11/19/2007 2 Dysmetabolic syndrome X 11/19/2007 07/10/19 22 Obstructive sleep apnea (adult) (pediatric) 09/3008/31/2021 documented as of this encounter (statuses as of 09/29/2022) [facility] History of Past illness Narrative* Problem Noted Date Resolved Date Tendinitis of left shoulder 08/31/2021 05/0 06/2021 Bursitis of left shoulder 08/06/20212021 Infrapatellar bursitis of right knee 08/11/2016 07/09/2021 Perirectal abscess 09/23/2015 07/09/2021 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/13/2011 07/09/2021 Abdominal pain, left lower quadrant 09/02/2009 03/09/2012 Diarrhea 09/02/2009 07/09/2021 Palpitations 01/29/2009 03/09/2012 Other abnormal glucose 11/19/2007 2 Dysmetabolic syndrome X 11/19/2007 07/10/19 22 Obstructive sleep apnea (adult) (pediatric) 09/3008/31/2021 documented as of this encounter (statuses as of 10/06/2022) [facility] History of Past illness Narrative* Problem Noted Date Resolved Date Tendinitis of left shoulder 08/31/2021 05/0 06/2021 Bursitis of left shoulder 08/06/20212021 Infrapatellar bursitis of right knee 08/11/2016 07/09/2021 Perirectal abscess 09/23/2015 07/09/2021 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/13/2011 07/09/2021 Abdominal pain, left lower quadrant 09/02/2009 03/09/2012 Diarrhea 09/02/2009 07/09/2021 Palpitations 01/29/2009 03/09/2012 Other abnormal glucose 11/19/2007 2 Dysmetabolic syndrome X 11/19/2007 07/10/19 22 Obstructive sleep apnea (adult) (pediatric) 09/3008/31/2021 documented as of this encounter (statuses as of 10/14/2022) [facility] History of Past illness Narrative* Problem Noted Date Resolved Date Tendinitis of left shoulder 08/31/2021 05/0 06/2021 Bursitis of left shoulder 08/06/20212021 Infrapatellar bursitis of right knee 08/11/2016 07/09/2021 Perirectal abscess 09/23/2015 07/09/2021 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/13/2011 07/09/2021 Abdominal pain, left lower quadrant 09/02/2009 03/09/2012 Diarrhea 09/02/2009 07/09/2021 Palpitations 01/29/2009 03/09/2012 Other abnormal glucose 11/19/2007 2 Dysmetabolic syndrome X 11/19/2007 07/10/19 22 Obstructive sleep apnea (adult) (pediatric) 09/3008/31/2021 documented as of this encounter (statuses as of 10/19/2022) [facility] History of Past illness Narrative* Problem Noted Date Resolved Date Tendinitis of left shoulder 08/31/2021 05/0 06/2021 Bursitis of left shoulder 08/06/20212021 Infrapatellar bursitis of right knee 08/11/2016 07/09/2021 Perirectal abscess 09/23/2015 07/09/2021 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/13/2011 07/09/2021 Abdominal pain, left lower quadrant 09/02/2009 03/09/2012 Diarrhea 09/02/2009 07/09/2021 Palpitations 01/29/2009 03/09/2012 Other abnormal glucose 11/19/2007 2 Dysmetabolic syndrome X 11/19/2007 07/10/19 22 Obstructive sleep apnea (adult) (pediatric) 09/3008/31/2021 documented as of this encounter (statuses as of 10/19/2022) [facility] History of Past illness Narrative* Problem Noted Date Resolved Date Tendinitis of left shoulder 08/31/2021 05/0 06/2021 Bursitis of left shoulder 08/06/20212021 Infrapatellar bursitis of right knee 08/11/2016 07/09/2021 Perirectal abscess 09/23/2015 07/09/2021 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/13/2011 07/09/2021 Abdominal pain, left lower quadrant 09/02/2009 03/09/2012 Diarrhea 09/02/2009 07/09/2021 Palpitations 01/29/2009 03/09/2012 Other abnormal glucose 11/19/2007 2 Dysmetabolic syndrome X 11/19/2007 07/10/19 22 Obstructive sleep apnea (adult) (pediatric) 09/3008/31/2021 documented as of this encounter (statuses as of 10/28/2022) [facility] History of Past illness Narrative* Problem Noted Date Diagnosed Date Resolved Date Tendinitis of left shoulder 08/31/2021 08/31/2021 Bursitis of left shoulder 08/06/2021 Infrapatellar bursitis of right knee 08/11/2016 07/09/2021 Perirectal abscess 09/23/2015 2 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/13/2011 07/09/2021 Abdominal pain, left lower quadrant 09/02/2009 03/09/2012 Diarrhea 09/02/2009 07/09/2021 Palpitations 01/29/2009 03/09/2012 Other abnormal glucose 11/19/200707/09 Dysmetabolic syndrome X 11/19/200706/29 Obstructive sleep apnea (adult) (pediatric) 10/22/2007 08/31/2021 documented as of this encounter (statuses as of 11/10/2022) [facility] History of Past illness Narrative* Problem Noted Date Diagnosed Date Resolved Date Tendinitis of left shoulder 08/31/2021 08/31/2021 Bursitis of left shoulder 08/06/2021 Infrapatellar bursitis of right knee 08/11/2016 07/09/2021 Perirectal abscess 09/23/2015 2 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/13/2011 07/09/2021 Abdominal pain, left lower quadrant 09/02/2009 03/09/2012 Diarrhea 09/02/2009 07/09/2021 Palpitations 01/29/2009 03/09/2012 Other abnormal glucose 11/19/200707/09 Dysmetabolic syndrome X 11/19/200706/29 Obstructive sleep apnea (adult) (pediatric) 10/22/2007 08/31/2021 documented as of this encounter (statuses as of 11/17/2022) [facility] History of Past illness Narrative* Problem Noted Date Diagnosed Date Resolved Date Tendinitis of left shoulder 08/31/2021 08/31/2021 Bursitis of left shoulder 08/06/2021 Infrapatellar bursitis of right knee 08/11/2016 07/09/2021 Perirectal abscess 09/23/2015 2 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/13/2011 07/09/2021 Abdominal pain, left lower quadrant 09/02/2009 03/09/2012 Diarrhea 09/02/2009 07/09/2021 Palpitations 01/29/2009 03/09/2012 Other abnormal glucose 11/19/200707/09 Dysmetabolic syndrome X 11/19/200706/29 Obstructive sleep apnea (adult) (pediatric) 10/22/2007 08/31/2021 documented as of this encounter (statuses as of 11/26/2022) [facility] History of Past illness Narrative* Problem Noted Date Diagnosed Date Resolved Date Tendinitis of left shoulder 08/31/2021 08/31/2021 Bursitis of left shoulder 08/06/2021 Infrapatellar bursitis of right knee 08/11/2016 07/09/2021 Perirectal abscess 09/23/2015 2 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/13/2011 07/09/2021 Abdominal pain, left lower quadrant 09/02/2009 03/09/2012 Diarrhea 09/02/2009 07/09/2021 Palpitations 01/29/2009 03/09/2012 Other abnormal glucose 11/19/200707/09 Dysmetabolic syndrome X 11/19/200706/29 Obstructive sleep apnea (adult) (pediatric) 10/22/2007 08/31/2021 documented as of this encounter (statuses as of 11/28/2022) [facility] History of Past illness Narrative* Problem Noted Date Diagnosed Date Resolved Date Tendinitis of left shoulder 08/31/2021 08/31/2021 Bursitis of left shoulder 08/06/2021 Infrapatellar bursitis of right knee 08/11/2016 07/09/2021 Perirectal abscess 09/23/2015 2 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/13/2011 07/09/2021 Abdominal pain, left lower quadrant 09/02/2009 03/09/2012 Diarrhea 09/02/2009 07/09/2021 Palpitations 01/29/2009 03/09/2012 Other abnormal glucose 11/19/200707/09 Dysmetabolic syndrome X 11/19/200706/29 Obstructive sleep apnea (adult) (pediatric) 10/22/2007 08/31/2021 documented as of this encounter (statuses as of 11/30/2022) [facility] History of Past illness Narrative* Problem Noted Date Diagnosed Date Resolved Date Tendinitis of left shoulder 08/31/2021 08/31/2021 Bursitis of left shoulder 08/06/2021 Infrapatellar bursitis of right knee 08/11/2016 07/09/2021 Perirectal abscess 09/23/2015 2 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/13/2011 07/09/2021 Abdominal pain, left lower quadrant 09/02/2009 03/09/2012 Diarrhea 09/02/2009 07/09/2021 Palpitations 01/29/2009 03/09/2012 Other abnormal glucose 11/19/200707/09 Dysmetabolic syndrome X 11/19/200706/29 Obstructive sleep apnea (adult) (pediatric) 10/22/2007 08/31/2021 documented as of this encounter (statuses as of 12/01/2022) [facility] History of Past illness Narrative* Problem Noted Date Diagnosed Date Resolved Date Tendinitis of left shoulder 08/31/2021 08/31/2021 Bursitis of left shoulder 08/06/2021 Infrapatellar bursitis of right knee 08/11/2016 07/09/2021 Perirectal abscess 09/23/2015 2 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/13/2011 07/09/2021 Abdominal pain, left lower quadrant 09/02/2009 03/09/2012 Diarrhea 09/02/2009 07/09/2021 Palpitations 01/29/2009 03/09/2012 Other abnormal glucose 11/19/200707/09 Dysmetabolic syndrome X 11/19/200706/29 Obstructive sleep apnea (adult) (pediatric) 10/22/2007 08/31/2021 documented as of this encounter (statuses as of 12/05/2022) [facility] History of Past illness Narrative* Problem Noted Date Diagnosed Date Resolved Date Tendinitis of left shoulder 08/31/2021 08/31/2021 Bursitis of left shoulder 08/06/2021 Infrapatellar bursitis of right knee 08/11/2016 07/09/2021 Perirectal abscess 09/23/2015 2 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/13/2011 07/09/2021 Abdominal pain, left lower quadrant 09/02/2009 03/09/2012 Diarrhea 09/02/2009 07/09/2021 Palpitations 01/29/2009 03/09/2012 Other abnormal glucose 11/19/200707/09 Dysmetabolic syndrome X 11/19/200706/29 Obstructive sleep apnea (adult) (pediatric) 10/22/2007 08/31/2021 documented as of this encounter (statuses as of 12/07/2022) [facility] History of Past illness Narrative* Problem Noted Date Diagnosed Date Resolved Date Tendinitis of left shoulder 08/31/2021 08/31/2021 Bursitis of left shoulder 08/06/2021 Infrapatellar bursitis of right knee 08/11/2016 07/09/2021 Perirectal abscess 09/23/2015 2 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/13/2011 07/09/2021 Abdominal pain, left lower quadrant 09/02/2009 03/09/2012 Diarrhea 09/02/2009 07/09/2021 Palpitations 01/29/2009 03/09/2012 Other abnormal glucose 11/19/200707/09 Dysmetabolic syndrome X 11/19/200706/29 Obstructive sleep apnea (adult) (pediatric) 10/22/2007 08/31/2021 documented as of this encounter (statuses as of 12/07/2022) [facility] History of Past illness Narrative* Problem Noted Date Diagnosed Date Resolved Date Tendinitis of left shoulder 08/31/2021 08/31/2021 Bursitis of left shoulder 08/06/2021 Infrapatellar bursitis of right knee 08/11/2016 07/09/2021 Perirectal abscess 09/23/2015 2 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/13/2011 07/09/2021 Abdominal pain, left lower quadrant 09/02/2009 03/09/2012 Diarrhea 09/02/2009 07/09/2021 Palpitations 01/29/2009 03/09/2012 Other abnormal glucose 11/19/200707/09 Dysmetabolic syndrome X 11/19/200706/29 Obstructive sleep apnea (adult) (pediatric) 10/22/2007 08/31/2021 documented as of this encounter (statuses as of 12/09/2022) [facility] History of Past illness Narrative* Problem Noted Date Diagnosed Date Resolved Date Tendinitis of left shoulder 08/31/2021 08/31/2021 Bursitis of left shoulder 08/06/2021 Infrapatellar bursitis of right knee 08/11/2016 07/09/2021 Perirectal abscess 09/23/2015 2 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/13/2011 07/09/2021 Abdominal pain, left lower quadrant 09/02/2009 03/09/2012 Diarrhea 09/02/2009 07/09/2021 Palpitations 01/29/2009 03/09/2012 Other abnormal glucose 11/19/200707/09 Dysmetabolic syndrome X 11/19/200706/29 Obstructive sleep apnea (adult) (pediatric) 10/22/2007 08/31/2021 documented as of this encounter (statuses as of 12/12/2022) [facility] History of Past illness Narrative* Problem Noted Date Diagnosed Date Resolved Date Tendinitis of left shoulder 08/31/2021 08/31/2021 Bursitis of left shoulder 08/06/2021 Infrapatellar bursitis of right knee 08/11/2016 07/09/2021 Perirectal abscess 09/23/2015 2 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/13/2011 07/09/2021 Abdominal pain, left lower quadrant 09/02/2009 03/09/2012 Diarrhea 09/02/2009 07/09/2021 Palpitations 01/29/2009 03/09/2012 Other abnormal glucose 11/19/200707/09 Dysmetabolic syndrome X 11/19/200706/29 Obstructive sleep apnea (adult) (pediatric) 10/22/2007 08/31/2021 documented as of this encounter (statuses as of 12/23/2022) [facility] History of Past illness Narrative* Problem Noted Date Diagnosed Date Resolved Date Tendinitis of left shoulder 08/31/2021 08/31/2021 Bursitis of left shoulder 08/06/2021 Infrapatellar bursitis of right knee 08/11/2016 07/09/2021 Perirectal abscess 09/23/2015 2 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/13/2011 07/09/2021 Abdominal pain, left lower quadrant 09/02/2009 03/09/2012 Diarrhea 09/02/2009 07/09/2021 Palpitations 01/29/2009 03/09/2012 Other abnormal glucose 11/19/200707/09 Dysmetabolic syndrome X 11/19/200706/29 Obstructive sleep apnea (adult) (pediatric) 10/22/2007 08/31/2021 documented as of this encounter (statuses as of 12/23/2022) [facility] History of Past illness Narrative* Problem Noted Date Diagnosed Date Resolved Date Tendinitis of left shoulder 08/31/2021 08/31/2021 Bursitis of left shoulder 08/06/2021 Infrapatellar bursitis of right knee 08/11/2016 07/09/2021 Perirectal abscess 09/23/2015 2 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/13/2011 07/09/2021 Abdominal pain, left lower quadrant 09/02/2009 03/09/2012 Diarrhea 09/02/2009 07/09/2021 Palpitations 01/29/2009 03/09/2012 Other abnormal glucose 11/19/200707/09 Dysmetabolic syndrome X 11/19/200706/29 Obstructive sleep apnea (adult) (pediatric) 10/22/2007 08/31/2021 documented as of this encounter (statuses as of 12/30/2022) [facility] History of Past illness Narrative* Problem Noted Date Diagnosed Date Resolved Date Tendinitis of left shoulder 08/31/2021 08/31/2021 Bursitis of left shoulder 08/06/2021 Infrapatellar bursitis of right knee 08/11/2016 07/09/2021 Perirectal abscess 09/23/2015 2 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/13/2011 07/09/2021 Abdominal pain, left lower quadrant 09/02/2009 03/09/2012 Diarrhea 09/02/2009 07/09/2021 Palpitations 01/29/2009 03/09/2012 Other abnormal glucose 11/19/200707/09 Dysmetabolic syndrome X 11/19/200706/29 Obstructive sleep apnea (adult) (pediatric) 10/22/2007 08/31/2021 documented as of this encounter (statuses as of 01/06/2023) [facility] History of Past illness Narrative* Problem Noted Date Diagnosed Date Resolved Date Tendinitis of left shoulder 08/31/2021 08/31/2021 Bursitis of left shoulder 08/06/2021 Infrapatellar bursitis of right knee 08/11/2016 07/09/2021 Perirectal abscess 09/23/2015 2 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/13/2011 07/09/2021 Abdominal pain, left lower quadrant 09/02/2009 03/09/2012 Diarrhea 09/02/2009 07/09/2021 Palpitations 01/29/2009 03/09/2012 Other abnormal glucose 11/19/200707/09 Dysmetabolic syndrome X 11/19/200706/29 Obstructive sleep apnea (adult) (pediatric) 10/22/2007 08/31/2021 documented as of this encounter (statuses as of 01/09/2023) [facility] History of Past illness Narrative* Problem Noted Date Diagnosed Date Resolved Date Tendinitis of left shoulder 08/31/2021 08/31/2021 Bursitis of left shoulder 08/06/2021 Infrapatellar bursitis of right knee 08/11/2016 07/09/2021 Perirectal abscess 09/23/2015 2 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/13/2011 07/09/2021 Abdominal pain, left lower quadrant 09/02/2009 03/09/2012 Diarrhea 09/02/2009 07/09/2021 Palpitations 01/29/2009 03/09/2012 Other abnormal glucose 11/19/200707/09 Dysmetabolic syndrome X 11/19/200706/29 Obstructive sleep apnea (adult) (pediatric) 10/22/2007 08/31/2021 documented as of this encounter (statuses as of 01/12/2023) [facility] History of Past illness Narrative* Problem Noted Date Diagnosed Date Resolved Date Tendinitis of left shoulder 08/31/2021 08/31/2021 Bursitis of left shoulder 08/06/2021 Infrapatellar bursitis of right knee 08/11/2016 07/09/2021 Perirectal abscess 09/23/2015 2 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/13/2011 07/09/2021 Abdominal pain, left lower quadrant 09/02/2009 03/09/2012 Diarrhea 09/02/2009 07/09/2021 Palpitations 01/29/2009 03/09/2012 Other abnormal glucose 11/19/200707/09 Dysmetabolic syndrome X 11/19/200706/29 Obstructive sleep apnea (adult) (pediatric) 10/22/2007 08/31/2021 documented as of this encounter (statuses as of 01/13/2023) [facility] History of Past illness Narrative* Problem Noted Date Diagnosed Date Resolved Date Tendinitis of left shoulder 08/31/2021 08/31/2021 Bursitis of left shoulder 08/06/2021 Infrapatellar bursitis of right knee 08/11/2016 07/09/2021 Perirectal abscess 09/23/2015 2 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/13/2011 07/09/2021 Abdominal pain, left lower quadrant 09/02/2009 03/09/2012 Diarrhea 09/02/2009 07/09/2021 Palpitations 01/29/2009 03/09/2012 Other abnormal glucose 11/19/200707/09 Dysmetabolic syndrome X 11/19/200706/29 Obstructive sleep apnea (adult) (pediatric) 10/22/2007 08/31/2021 documented as of this encounter (statuses as of 01/20/2023) [facility] History of Past illness Narrative* Problem Noted Date Diagnosed Date Resolved Date Tendinitis of left shoulder 08/31/2021 08/31/2021 Bursitis of left shoulder 08/06/2021 Infrapatellar bursitis of right knee 08/11/2016 07/09/2021 Perirectal abscess 09/23/2015 2 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/13/2011 07/09/2021 Abdominal pain, left lower quadrant 09/02/2009 03/09/2012 Diarrhea 09/02/2009 07/09/2021 Palpitations 01/29/2009 03/09/2012 Other abnormal glucose 11/19/200707/09 Dysmetabolic syndrome X 11/19/200706/29 Obstructive sleep apnea (adult) (pediatric) 10/22/2007 08/31/2021 documented as of this encounter (statuses as of 01/24/2023) [facility] History of Past illness Narrative* Problem Noted Date Diagnosed Date Resolved Date Tendinitis of left shoulder 08/31/2021 08/31/2021 Bursitis of left shoulder 08/06/2021 Infrapatellar bursitis of right knee 08/11/2016 07/09/2021 Perirectal abscess 09/23/2015 2 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/13/2011 07/09/2021 Abdominal pain, left lower quadrant 09/02/2009 03/09/2012 Diarrhea 09/02/2009 07/09/2021 Palpitations 01/29/2009 03/09/2012 Other abnormal glucose 11/19/200707/09 Dysmetabolic syndrome X 11/19/200706/29 Obstructive sleep apnea (adult) (pediatric) 10/22/2007 08/31/2021 documented as of this encounter (statuses as of 01/27/2023) [facility] History of Past illness Narrative* Problem Noted Date Diagnosed Date Resolved Date Tendinitis of left shoulder 08/31/2021 08/31/2021 Bursitis of left shoulder 08/06/2021 Infrapatellar bursitis of right knee 08/11/2016 07/09/2021 Perirectal abscess 09/23/2015 2 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/13/2011 07/09/2021 Abdominal pain, left lower quadrant 09/02/2009 03/09/2012 Diarrhea 09/02/2009 07/09/2021 Palpitations 01/29/2009 03/09/2012 Other abnormal glucose 11/19/200707/09 Dysmetabolic syndrome X 11/19/200706/29 Obstructive sleep apnea (adult) (pediatric) 10/22/2007 08/31/2021 documented as of this encounter (statuses as of 01/31/2023) [facility] History of Past illness Narrative* Problem Noted Date Diagnosed Date Resolved Date Tendinitis of left shoulder 08/31/2021 08/31/2021 Bursitis of left shoulder 08/06/2021 Infrapatellar bursitis of right knee 08/11/2016 07/09/2021 Perirectal abscess 09/23/2015 2 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/13/2011 07/09/2021 Abdominal pain, left lower quadrant 09/02/2009 03/09/2012 Diarrhea 09/02/2009 07/09/2021 Palpitations 01/29/2009 03/09/2012 Other abnormal glucose 11/19/200707/09 Dysmetabolic syndrome X 11/19/200706/29 Obstructive sleep apnea (adult) (pediatric) 10/22/2007 08/31/2021 documented as of this encounter (statuses as of 02/04/2023) [facility] History of Past illness Narrative* Problem Noted Date Diagnosed Date Resolved Date Tendinitis of left shoulder 08/31/2021 08/31/2021 Bursitis of left shoulder 08/06/2021 Infrapatellar bursitis of right knee 08/11/2016 07/09/2021 Perirectal abscess 09/23/2015 2 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/13/2011 07/09/2021 Abdominal pain, left lower quadrant 09/02/2009 03/09/2012 Diarrhea 09/02/2009 07/09/2021 Palpitations 01/29/2009 03/09/2012 Other abnormal glucose 11/19/200707/09 Dysmetabolic syndrome X 11/19/200706/29 Obstructive sleep apnea (adult) (pediatric) 10/22/2007 08/31/2021 documented as of this encounter (statuses as of 02/08/2023) [facility] History of Past illness Narrative* Problem Noted Date Diagnosed Date Resolved Date Tendinitis of left shoulder 08/31/2021 08/31/2021 Bursitis of left shoulder 08/06/2021 Infrapatellar bursitis of right knee 08/11/2016 07/09/2021 Perirectal abscess 09/23/2015 2 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/13/2011 07/09/2021 Abdominal pain, left lower quadrant 09/02/2009 03/09/2012 Diarrhea 09/02/2009 07/09/2021 Palpitations 01/29/2009 03/09/2012 Other abnormal glucose 11/19/200707/09 Dysmetabolic syndrome X 11/19/200706/29 Obstructive sleep apnea (adult) (pediatric) 10/22/2007 08/31/2021 documented as of this encounter (statuses as of 02/10/2023) [facility] History of Past illness Narrative* Problem Noted Date Diagnosed Date Resolved Date Tendinitis of left shoulder 08/31/2021 08/31/2021 Bursitis of left shoulder 08/06/2021 Infrapatellar bursitis of right knee 08/11/2016 07/09/2021 Perirectal abscess 09/23/2015 2 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/13/2011 07/09/2021 Abdominal pain, left lower quadrant 09/02/2009 03/09/2012 Diarrhea 09/02/2009 07/09/2021 Palpitations 01/29/2009 03/09/2012 Other abnormal glucose 11/19/200707/09 Dysmetabolic syndrome X 11/19/200706/29 Obstructive sleep apnea (adult) (pediatric) 10/22/2007 08/31/2021 documented as of this encounter (statuses as of 02/14/2023) [facility] History of Past illness Narrative* Problem Noted Date Diagnosed Date Resolved Date Tendinitis of left shoulder 08/31/2021 08/31/2021 Bursitis of left shoulder 08/06/2021 Infrapatellar bursitis of right knee 08/11/2016 07/09/2021 Perirectal abscess 09/23/2015 2 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/13/2011 07/09/2021 Abdominal pain, left lower quadrant 09/02/2009 03/09/2012 Diarrhea 09/02/2009 07/09/2021 Palpitations 01/29/2009 03/09/2012 Other abnormal glucose 11/19/200707/09 Dysmetabolic syndrome X 11/19/200706/29 Obstructive sleep apnea (adult) (pediatric) 10/22/2007 08/31/2021 documented as of this encounter (statuses as of 02/14/2023) [facility] History of Past illness Narrative* Problem Noted Date Diagnosed Date Resolved Date Tendinitis of left shoulder 08/31/2021 08/31/2021 Bursitis of left shoulder 08/06/2021 Infrapatellar bursitis of right knee 08/11/2016 07/09/2021 Perirectal abscess 09/23/2015 2 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/13/2011 07/09/2021 Abdominal pain, left lower quadrant 09/02/2009 03/09/2012 Diarrhea 09/02/2009 07/09/2021 Palpitations 01/29/2009 03/09/2012 Other abnormal glucose 11/19/200707/09 Dysmetabolic syndrome X 11/19/200706/29 Obstructive sleep apnea (adult) (pediatric) 10/22/2007 08/31/2021 documented as of this encounter (statuses as of 02/16/2023) [facility] History of Past illness Narrative* Problem Noted Date Diagnosed Date Resolved Date Tendinitis of left shoulder 08/31/2021 08/31/2021 Bursitis of left shoulder 08/06/2021 Infrapatellar bursitis of right knee 08/11/2016 07/09/2021 Perirectal abscess 09/23/2015 2 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/13/2011 07/09/2021 Abdominal pain, left lower quadrant 09/02/2009 03/09/2012 Diarrhea 09/02/2009 07/09/2021 Palpitations 01/29/2009 03/09/2012 Other abnormal glucose 11/19/200707/09 Dysmetabolic syndrome X 11/19/200706/29 Obstructive sleep apnea (adult) (pediatric) 10/22/2007 08/31/2021 documented as of this encounter (statuses as of 02/21/2023) [facility] History of Past illness Narrative* Problem Noted Date Diagnosed Date Resolved Date Tendinitis of left shoulder 08/31/2021 08/31/2021 Bursitis of left shoulder 08/06/2021 Infrapatellar bursitis of right knee 08/11/2016 07/09/2021 Perirectal abscess 09/23/2015 2 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/13/2011 07/09/2021 Abdominal pain, left lower quadrant 09/02/2009 03/09/2012 Diarrhea 09/02/2009 07/09/2021 Palpitations 01/29/2009 03/09/2012 Other abnormal glucose 11/19/200707/09 Dysmetabolic syndrome X 11/19/200706/29 Obstructive sleep apnea (adult) (pediatric) 10/22/2007 08/31/2021 documented as of this encounter (statuses as of 02/23/2023) [facility] History of Past illness Narrative* Problem Noted Date Diagnosed Date Resolved Date Tendinitis of left shoulder 08/31/2021 08/31/2021 Bursitis of left shoulder 08/06/2021 Infrapatellar bursitis of right knee 08/11/2016 07/09/2021 Perirectal abscess 09/23/2015 2 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/13/2011 07/09/2021 Abdominal pain, left lower quadrant 09/02/2009 03/09/2012 Diarrhea 09/02/2009 07/09/2021 Palpitations 01/29/2009 03/09/2012 Other abnormal glucose 11/19/200707/09 Dysmetabolic syndrome X 11/19/200706/29 Obstructive sleep apnea (adult) (pediatric) 10/22/2007 08/31/2021 documented as of this encounter (statuses as of 02/24/2023) [facility] History of Past illness Narrative* Problem Noted Date Diagnosed Date Resolved Date Tendinitis of left shoulder 08/31/2021 08/31/2021 Bursitis of left shoulder 08/06/2021 Infrapatellar bursitis of right knee 08/11/2016 07/09/2021 Perirectal abscess 09/23/2015 2 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/13/2011 07/09/2021 Abdominal pain, left lower quadrant 09/02/2009 03/09/2012 Diarrhea 09/02/2009 07/09/2021 Palpitations 01/29/2009 03/09/2012 Other abnormal glucose 11/19/200707/09 Dysmetabolic syndrome X 11/19/200706/29 Obstructive sleep apnea (adult) (pediatric) 10/22/2007 08/31/2021 documented as of this encounter (statuses as of 02/27/2023) [facility] History of Past illness Narrative* Problem Noted Date Diagnosed Date Resolved Date Tendinitis of left shoulder 08/31/2021 08/31/2021 Bursitis of left shoulder 08/06/2021 Infrapatellar bursitis of right knee 08/11/2016 07/09/2021 Perirectal abscess 09/23/2015 2 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/13/2011 07/09/2021 Abdominal pain, left lower quadrant 09/02/2009 03/09/2012 Diarrhea 09/02/2009 07/09/2021 Palpitations 01/29/2009 03/09/2012 Other abnormal glucose 11/19/200707/09 Dysmetabolic syndrome X 11/19/200706/29 Obstructive sleep apnea (adult) (pediatric) 10/22/2007 08/31/2021 documented as of this encounter (statuses as of 03/04/2023) [facility] History of Past illness Narrative* Problem Noted Date Diagnosed Date Resolved Date Tendinitis of left shoulder 08/31/2021 08/31/2021 Bursitis of left shoulder 08/06/2021 Infrapatellar bursitis of right knee 08/11/2016 07/09/2021 Perirectal abscess 09/23/2015 2 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/13/2011 07/09/2021 Abdominal pain, left lower quadrant 09/02/2009 03/09/2012 Diarrhea 09/02/2009 07/09/2021 Palpitations 01/29/2009 03/09/2012 Other abnormal glucose 11/19/200707/09 Dysmetabolic syndrome X 11/19/200706/29 Obstructive sleep apnea (adult) (pediatric) 10/22/2007 08/31/2021 documented as of this encounter (statuses as of 03/05/2023) [facility] History of Past illness Narrative* Problem Noted Date Diagnosed Date Resolved Date Tendinitis of left shoulder 08/31/2021 08/31/2021 Bursitis of left shoulder 08/06/2021 Infrapatellar bursitis of right knee 08/11/2016 07/09/2021 Perirectal abscess 09/23/2015 2 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/13/2011 07/09/2021 Abdominal pain, left lower quadrant 09/02/2009 03/09/2012 Diarrhea 09/02/2009 07/09/2021 Palpitations 01/29/2009 03/09/2012 Other abnormal glucose 11/19/200707/09 Dysmetabolic syndrome X 11/19/200706/29 Obstructive sleep apnea (adult) (pediatric) 10/22/2007 08/31/2021 documented as of this encounter (statuses as of 03/07/2023) [facility] History of Past illness Narrative* Problem Noted Date Diagnosed Date Resolved Date Tendinitis of left shoulder 08/31/2021 08/31/2021 Bursitis of left shoulder 08/06/2021 Infrapatellar bursitis of right knee 08/11/2016 07/09/2021 Perirectal abscess 09/23/2015 2 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/13/2011 07/09/2021 Abdominal pain, left lower quadrant 09/02/2009 03/09/2012 Diarrhea 09/02/2009 07/09/2021 Palpitations 01/29/2009 03/09/2012 Other abnormal glucose 11/19/200707/09 Dysmetabolic syndrome X 11/19/200706/29 Obstructive sleep apnea (adult) (pediatric) 10/22/2007 08/31/2021 documented as of this encounter (statuses as of 03/09/2023) [facility] History of Past illness Narrative* Problem Noted Date Diagnosed Date Resolved Date Tendinitis of left shoulder 08/31/2021 08/31/2021 Bursitis of left shoulder 08/06/2021 Infrapatellar bursitis of right knee 08/11/2016 07/09/2021 Perirectal abscess 09/23/2015 2 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/13/2011 07/09/2021 Abdominal pain, left lower quadrant 09/02/2009 03/09/2012 Diarrhea 09/02/2009 07/09/2021 Palpitations 01/29/2009 03/09/2012 Other abnormal glucose 11/19/2007 03/11 /2022 Dysmetabolic syndrome X 11/19/200706/29 Obstructive sleep apnea (adult) (pediatric) 10/22/2007 08/31/2021 documented as of this encounter (statuses as of 03/13/2023) [facility] History of Past illness Narrative* Problem Noted Date Diagnosed Date Resolved Date Tendinitis of left shoulder 08/31/2021 08/31/2021 Bursitis of left shoulder 08/06/2021 Infrapatellar bursitis of right knee 08/11/2016 07/09/2021 Perirectal abscess 09/23/2015 2 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/13/2011 07/09/2021 Abdominal pain, left lower quadrant 09/02/2009 03/09/2012 Diarrhea 09/02/2009 07/09/2021 Palpitations 01/29/2009 03/09/2012 Other abnormal glucose 11/19/200707/09 Dysmetabolic syndrome X 11/19/200706/29 Obstructive sleep apnea (adult) (pediatric) 10/22/2007 08/31/2021 documented as of this encounter (statuses as of 03/16/2023) [facility] History of Past illness Narrative* Problem Noted Date Diagnosed Date Resolved Date Tendinitis of left shoulder 08/31/2021 08/31/2021 Bursitis of left shoulder 08/06/2021 Infrapatellar bursitis of right knee 08/11/2016 07/09/2021 Perirectal abscess 09/23/2015 2 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/13/2011 07/09/2021 Abdominal pain, left lower quadrant 09/02/2009 03/09/2012 Diarrhea 09/02/2009 07/09/2021 Palpitations 01/29/2009 03/09/2012 Other abnormal glucose 11/19/200707/09 Dysmetabolic syndrome X 11/19/200706/29 Obstructive sleep apnea (adult) (pediatric) 10/22/2007 08/31/2021 documented as of this encounter (statuses as of 03/16/2023) [facility] History of Past illness Narrative* Problem Noted Date Diagnosed Date Resolved Date Tendinitis of left shoulder 08/31/2021 08/31/2021 Bursitis of left shoulder 08/06/2021 Infrapatellar bursitis of right knee 08/11/2016 07/09/2021 Perirectal abscess 09/23/2015 2 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/13/2011 07/09/2021 Abdominal pain, left lower quadrant 09/02/2009 03/09/2012 Diarrhea 09/02/2009 07/09/2021 Palpitations 01/29/2009 03/09/2012 Other abnormal glucose 11/19/200707/09 Dysmetabolic syndrome X 11/19/200706/29 Obstructive sleep apnea (adult) (pediatric) 10/22/2007 08/31/2021 documented as of this encounter (statuses as of 03/20/2023) [facility] History of Past illness Narrative* Problem Noted Date Diagnosed Date Resolved Date Tendinitis of left shoulder 08/31/2021 08/31/2021 Bursitis of left shoulder 08/06/2021 Infrapatellar bursitis of right knee 08/11/2016 07/09/2021 Perirectal abscess 09/23/2015 2 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/13/2011 07/09/2021 Abdominal pain, left lower quadrant 09/02/2009 03/09/2012 Diarrhea 09/02/2009 07/09/2021 Palpitations 01/29/2009 03/09/2012 Other abnormal glucose 11/19/200707/09 Dysmetabolic syndrome X 11/19/200706/29 Obstructive sleep apnea (adult) (pediatric) 10/22/2007 08/31/2021 documented as of this encounter (statuses as of 03/21/2023) [facility] History of Past illness Narrative* Problem Noted Date Diagnosed Date Resolved Date Tendinitis of left shoulder 08/31/2021 08/31/2021 Bursitis of left shoulder 08/06/2021 Infrapatellar bursitis of right knee 08/11/2016 07/09/2021 Perirectal abscess 09/23/2015 2 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/13/2011 07/09/2021 Abdominal pain, left lower quadrant 09/02/2009 03/09/2012 Diarrhea 09/02/2009 07/09/2021 Palpitations 01/29/2009 03/09/2012 Other abnormal glucose 11/19/200707/09 Dysmetabolic syndrome X 11/19/200706/29 Obstructive sleep apnea (adult) (pediatric) 10/22/2007 08/31/2021 documented as of this encounter (statuses as of 03/30/2023) [facility] History of Past illness Narrative* Problem Noted Date Diagnosed Date Resolved Date Tendinitis of left shoulder 08/31/2021 08/31/2021 Bursitis of left shoulder 08/06/2021 Infrapatellar bursitis of right knee 08/11/2016 07/09/2021 Perirectal abscess 09/23/2015 2 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/13/2011 07/09/2021 Abdominal pain, left lower quadrant 09/02/2009 03/09/2012 Diarrhea 09/02/2009 07/09/2021 Palpitations 01/29/2009 03/09/2012 Other abnormal glucose 11/19/200707/09 Dysmetabolic syndrome X 11/19/200706/29 Obstructive sleep apnea (adult) (pediatric) 10/22/2007 08/31/2021 documented as of this encounter (statuses as of 04/03/2023) [facility] History of Past illness Narrative* Problem Noted Date Diagnosed Date Resolved Date Tendinitis of left shoulder 08/31/2021 08/31/2021 Bursitis of left shoulder 08/06/2021 Infrapatellar bursitis of right knee 08/11/2016 07/09/2021 Perirectal abscess 09/23/2015 2 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/13/2011 07/09/2021 Abdominal pain, left lower quadrant 09/02/2009 03/09/2012 Diarrhea 09/02/2009 07/09/2021 Palpitations 01/29/2009 03/09/2012 Other abnormal glucose 11/19/200707/09 Dysmetabolic syndrome X 11/19/200706/29 Obstructive sleep apnea (adult) (pediatric) 10/22/2007 08/31/2021 documented as of this encounter (statuses as of 04/04/2023) [facility] History of Past illness Narrative* Problem Noted Date Diagnosed Date Resolved Date Tendinitis of left shoulder 08/31/2021 08/31/2021 Bursitis of left shoulder 08/06/2021 Infrapatellar bursitis of right knee 08/11/2016 07/09/2021 Perirectal abscess 09/23/2015 2 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/13/2011 07/09/2021 Abdominal pain, left lower quadrant 09/02/2009 03/09/2012 Diarrhea 09/02/2009 07/09/2021 Palpitations 01/29/2009 03/09/2012 Other abnormal glucose 11/19/200707/09 Dysmetabolic syndrome X 11/19/200706/29 Obstructive sleep apnea (adult) (pediatric) 10/22/2007 08/31/2021 documented as of this encounter (statuses as of 06/05/2023) [facility] History of Past illness Narrative* Problem Noted Date Diagnosed Date Resolved Date Tendinitis of left shoulder 08/31/2021 08/31/2021 Bursitis of left shoulder 08/06/2021 Infrapatellar bursitis of right knee 08/11/2016 07/09/2021 Perirectal abscess 09/23/2015 2 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/13/2011 07/09/2021 Abdominal pain, left lower quadrant 09/02/2009 03/09/2012 Diarrhea 09/02/2009 07/09/2021 Palpitations 01/29/2009 03/09/2012 Other abnormal glucose 11/19/200707/09 Dysmetabolic syndrome X 11/19/200706/29 Obstructive sleep apnea (adult) (pediatric) 10/22/2007 08/31/2021 documented as of this encounter (statuses as of 06/09/2023) [facility] History of Past illness Narrative* Problem Noted Date Diagnosed Date Resolved Date Tendinitis of left shoulder 08/31/2021 08/31/2021 Bursitis of left shoulder 08/06/2021 Infrapatellar bursitis of right knee 08/11/2016 07/09/2021 Perirectal abscess 09/23/2015 2 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/13/2011 07/09/2021 Abdominal pain, left lower quadrant 09/02/2009 03/09/2012 Diarrhea 09/02/2009 07/09/2021 Palpitations 01/29/2009 03/09/2012 Other abnormal glucose 11/19/200707/09 Dysmetabolic syndrome X 11/19/200706/29 Obstructive sleep apnea (adult) (pediatric) 10/22/2007 08/31/2021 documented as of this encounter (statuses as of 06/12/2023) [facility] History of Past illness Narrative* Problem Noted Date Diagnosed Date Resolved Date Tendinitis of left shoulder 08/31/2021 08/31/2021 Bursitis of left shoulder 08/06/2021 Infrapatellar bursitis of right knee 08/11/2016 07/09/2021 Perirectal abscess 09/23/2015 2 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/13/2011 07/09/2021 Abdominal pain, left lower quadrant 09/02/2009 03/09/2012 Diarrhea 09/02/2009 07/09/2021 Palpitations 01/29/2009 03/09/2012 Other abnormal glucose 11/19/200707/09 Dysmetabolic syndrome X 11/19/200706/29 Obstructive sleep apnea (adult) (pediatric) 10/22/2007 08/31/2021 documented as of this encounter (statuses as of 06/19/2023) [facility] History of Past illness Narrative* Problem Noted Date Diagnosed Date Resolved Date Tendinitis of left shoulder 08/31/2021 08/31/2021 Bursitis of left shoulder 08/06/2021 Infrapatellar bursitis of right knee 08/11/2016 07/09/2021 Perirectal abscess 09/23/2015 2 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/13/2011 07/09/2021 Abdominal pain, left lower quadrant 09/02/2009 03/09/2012 Diarrhea 09/02/2009 07/09/2021 Palpitations 01/29/2009 03/09/2012 Other abnormal glucose 11/19/200707/09 Dysmetabolic syndrome X 11/19/200706/29 Obstructive sleep apnea (adult) (pediatric) 10/22/2007 08/31/2021 documented as of this encounter (statuses as of 07/03/2023) [facility] History of Past illness Narrative* Problem Noted Date Diagnosed Date Resolved Date Tendinitis of left shoulder 08/31/2021 08/31/2021 Bursitis of left shoulder 08/06/2021 Infrapatellar bursitis of right knee 08/11/2016 07/09/2021 Perirectal abscess 09/23/2015 2 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/13/2011 07/09/2021 Abdominal pain, left lower quadrant 09/02/2009 03/09/2012 Diarrhea 09/02/2009 07/09/2021 Palpitations 01/29/2009 03/09/2012 Other abnormal glucose 11/19/200707/09 Dysmetabolic syndrome X 11/19/200706/29 Obstructive sleep apnea (adult) (pediatric) 10/22/2007 08/31/2021 documented as of this encounter (statuses as of 07/04/2023) [facility] History of Past illness Narrative* Problem Noted Date Diagnosed Date Resolved Date Tendinitis of left shoulder 08/31/2021 08/31/2021 Bursitis of left shoulder 08/06/2021 Infrapatellar bursitis of right knee 08/11/2016 07/09/2021 Perirectal abscess 09/23/2015 2 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/13/2011 07/09/2021 Abdominal pain, left lower quadrant 09/02/2009 03/09/2012 Diarrhea 09/02/2009 07/09/2021 Palpitations 01/29/2009 03/09/2012 Other abnormal glucose 11/19/200707/09 Dysmetabolic syndrome X 11/19/200706/29 Obstructive sleep apnea (adult) (pediatric) 10/22/2007 08/31/2021 documented as of this encounter (statuses as of 07/17/2023) [facility] of Past illness Narrative* Problem Noted Date Diagnosed Date Resolved Date Tendinitis of left shoulder 08/31/2021 08/31/2021 Bursitis of left shoulder 08/06/2021 Infrapatellar bursitis of right knee 08/11/2016 07/09/2021 Perirectal abscess 09/23/2015 2 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/13/2011 07/09/2021 Abdominal pain, left lower quadrant 09/02/2009 03/09/2012 Diarrhea 09/02/2009 07/09/2021 Palpitations 01/29/2009 03/09/2012 Other abnormal glucose 11/19/200707/09 Dysmetabolic syndrome X 11/19/200706/29 Obstructive sleep apnea (adult) (pediatric) 10/22/2007 08/31/2021 documented as of this encounter (statuses as of 07/31/2023) [facility] History of Past illness Narrative* Problem Noted Date Diagnosed Date Resolved Date Tendinitis of left shoulder 08/31/2021 08/31/2021 Bursitis of left shoulder 08/06/2021 Infrapatellar bursitis of right knee 08/11/2016 07/09/2021 Perirectal abscess 09/23/2015 2 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/13/2011 07/09/2021 Abdominal pain, left lower quadrant 09/02/2009 03/09/2012 Diarrhea 09/02/2009 07/09/2021 Palpitations 01/29/2009 03/09/2012 Other abnormal glucose 11/19/200707/09 Dysmetabolic syndrome X 11/19/200706/29 Obstructive sleep apnea (adult) (pediatric) 10/22/2007 08/31/2021 documented as of this encounter (statuses as of 08/11/2023) [facility] History of Past illness Narrative* Problem Noted Date Diagnosed Date Resolved Date Tendinitis of left shoulder 08/31/2021 08/31/2021 Bursitis of left shoulder 08/06/2021 Infrapatellar bursitis of right knee 08/11/2016 07/09/2021 Perirectal abscess 09/23/2015 2 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/13/2011 07/09/2021 Abdominal pain, left lower quadrant 09/02/2009 03/09/2012 Diarrhea 09/02/2009 07/09/2021 Palpitations 01/29/2009 03/09/2012 Other abnormal glucose 11/19/200707/09 Dysmetabolic syndrome X 11/19/200706/29 Obstructive sleep apnea (adult) (pediatric) 10/22/2007 08/31/2021 documented as of this encounter (statuses as of 08/14/2023) [facility] History of Past illness Narrative* Problem Noted Date Diagnosed Date Resolved Date Tendinitis of left shoulder 08/31/2021 08/31/2021 Bursitis of left shoulder 08/06/2021 Infrapatellar bursitis of right knee 08/11/2016 07/09/2021 Perirectal abscess 09/23/2015 2 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/13/2011 07/09/2021 Abdominal pain, left lower quadrant 09/02/2009 03/09/2012 Diarrhea 09/02/2009 07/09/2021 Palpitations 01/29/2009 03/09/2012 Other abnormal glucose 11/19/200707/09 Dysmetabolic syndrome X 11/19/200706/29 Obstructive sleep apnea (adult) (pediatric) 10/22/2007 08/31/2021 documented as of this encounter (statuses as of 08/16/2023) [facility] Miscellaneous Notes* Telephone Encounter - Carina Trejo (Typing Section Chief) - 08/19/2021 11:55 AM EDT PATIENT CALL/INCOMING CALL Received call from Bindu with [facility] for patient. Patient tested on 08/19 with an out of range INR result of 1.3. Of note, [facility] has already addressed this result; nothing further needed atthis time. PT INR (no units) Date Value 08/03/2021 1.9 biotel 07/28/2021 1.7 (biotel) 07/13/2021 1.5 biotel INR Home CoaguChek (no units) Date Value 08/19/2021 1.3 Carina Trejo (Typing Section Chief) Pharmacy [facility]tico[facility] * Telephone Encounter - Chel Evangelista [facility] - 08/19/2021 10:46 AM EDT [facility] Anticoagulation Episode Summary Anticoagulation Care Providers Provider Role Specialty Phone number Milka Mas MD [facility] [phone] Morena Martinez is a 56 year old year old female patient being evaluated today for a Telemanagement visit. Patient is currently on the following anticoagulant(s) Warfarin. Labs PT INR (no units) Date Value 08/03/2021 1.9 biotel 07/28/2021 1.7 (biotel) 07/13/2021 1.5 biotel INR Home CoaguChek (no units) Date Value 08/19/2021 1.3 Hemoglobin (g/dL) Date Value 04/09/2021 15.2 Hematocrit (%) Date Value 04/09/2021 46.7 Platelet Count (k/uL) Date Value 04/09/2021 299 Creatinine (mg/dL) Date Value 07/01/2021 0.76 03/23/2021 0.60 12/07/2020 0.62 04/01/2020 0.70 Bilirubin, Total (mg/dL) Date Value 07/01/2021 0.7 12/07/2020 0.6 ALT (U/L) Date Value 07/01/2021 21 12/07/2020 33 AST (U/L) Date Value 07/01/2021 20 12/07/2020 35 Estimated Creatinine Clearance: 124 mL/min (based on SCr of 0.76 mg/dL). ALLERGIES Allergen Reactions Augmentin [Amoxicil* Other: See Comments Adverse effect, developed yeast infection Bextra [Valdecoxib] Swelling Ankle swelling Celebrex [Celecoxib] Swelling ankle swelling Erythromycin Rash Latex Lovenox [Enoxaparin* Rash Vioxx [Rofecoxib] Swelling ankle swelling Voltaren [Diclofena* Swelling ankle swelling Indication for Warfarin: FPC (current) use of anticoagulants Embolism and thrombosis (hcc) Anticoagulation Episode Summary Current INR goal: 2.0-3.0 Assessment: INR result of is SUBtherapeutic due to: Missed dose(s)- pt was supposed to have a procedure on 08/17, but it was r/s to 08/31 Pt will hold x5 days prior to 08/31 Plan: Called and spoke to patient/caregiver Advised patient to continue current weekly dose Next home INR check scheduled on 09/07/2021 (7 days post procedure) Patient verbalizes understanding of the plan. Patient denies need for refills. Chel Evangelista RPh Clinical Pharmacist, Pharmacy Anticoagulation Clinic [facility] Pager: [phone] . * Telephone Encounter - Crystal Field RPh - 08/17/2021 3:05 PM EDT Called pt and left a voice message reminding pt to test INR as soon as possible. Crystal Field RPh.' * Telephone Encounter - Jovanny Peralta RPh - 08/10/2021 5:09 PM EDT Patient due to test INR today. Will continue to monitor for results. Jovanny Peralta RPh [facility] Miscellaneous Notes* Telephone Encounter - Pinky Dawkins Ma - 08/09/2021 4:49 PM EDT The following approved medication requests have been transmitted electronically. Signed Prescriptions Disp Refills acetaminophen-codeine (TYLENOL-CODEINE #3) 300-30 mg per tablet 60 tablet 2 Sig: Take 1 tablet by mouth twice daily as needed for pain for up to 90 days. NILAM Class: C-III JAISON: No Authorizing Provider: MILKA MAS Ma * Telephone Encounter - Milka Mas MD - 08/09/2021 4:39 PM EDT OK to refill as ordered Milka Mas MD * Telephone Encounter - Pinky Dawkins Ma - 08/09/2021 4:20 PM EDT Last office visit: 07/09/21 F/u scheduled: 01/18/22 Last refilled on: Tylenol #3 #60 with 2 refill on 05/04/21 Pinky Dawkins Ma documented [facility] Miscellaneous Notes* Telephone Encounter - Sade Garcia RN - 08/09/2021 9:42 AM EDT Called patient and informed her that Dr Mas approved patient to hold Coumadin 5 days prior to surgery. Patient aware to take her last dose on 08/11/21 an hold starting 08/12/2021. Pt aware andin agreement. Sade Garcia RN * Telephone Encounter - Milka Mas MD - 08/06/2021 4:53 PM EDT Since her most recent INR was 1.9 I would go ahead with the routine 5 day hold of her coumadin prior to surgery. Milka Mas MD * Telephone Encounter - Ruchi Paul APRN.JOHN - 08/06/2021 2:40 PM EDT Pt is scheduled for surgery 08/17/2021 in [place] for left shoulder arthroscopic rotator cuff repair with Dr. Banks. 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 Informed pt usual guidelines for surgery with Coumadin is to hold for 5 days. Pt was questioning this because her INR has been low recently. Please advise pre-op Coumadin instructions for upcoming surgery. documented [facility] Miscellaneous Notes* Telephone Encounter - Byron Jolley APRN.JOHN - 07/30/2021 8:02 AM EDT The following approved medication requests have been transmitted electronically. Pending Prescriptions Disp Refills WARFARIN 5 MG TABLET 129 tablet 4 Sig: TAKE 5MG EVERY MONDAY AND TAKE 7.5MG ALL OTHER DAYS JAISON: No Byron Jolley APRN.CNP * Telephone Encounter - Enedelia Madrid LPN - 07/30/2021 7:58 AM EDT Patient phones requesting refills as follows: Pending Prescriptions Disp Refills WARFARIN 5 MG TABLET 129 tablet Sig: TAKE 5MG EVERY MONDAY AND TAKE 7.5MG ALL OTHER DAYS JAISON: No JEROME-07/09/21 Labs-07/01/21 NOV-01/18/22 med filled 05/06/21 Please review and advise. Enedelia Madrid LPN documented in this encounterMer[facility]03[facility]22 Miscellaneous Notes* Telephone Encounter - Dori Pepper RP - 07/28/2021 11:21 AM EDT [facility] Anticoagulation Episode Summary Anticoagulation Care Providers Provider Role Specialty Phone number Milka Mas MD [facility] [phone] Morena Martinez is a 56 year old year old female patient being evaluated today for a Telemanagement visit. Patient is currently on the following anticoagulant(s) Warfarin. Labs PT INR (no units) Date Value 07/28/2021 1.7 (biotel) 07/13/2021 1.5 biotel 06/28/2021 1.5 Hemoglobin (g/dL) Date Value 04/09/2021 15.2 Hematocrit (%) Date Value 04/09/2021 46.7 Platelet Count (k/uL) Date Value 04/09/2021 299 Creatinine (mg/dL) Date Value 07/01/2021 0.76 03/23/2021 0.60 12/07/2020 0.62 04/01/2020 0.70 Bilirubin, Total (mg/dL) Date Value 07/01/2021 0.7 12/07/2020 0.6 ALT (U/L) Date Value 07/01/2021 21 12/07/2020 33 AST (U/L) Date Value 07/01/2021 20 12/07/2020 35 CrCl cannot be calculated (Unknown ideal weight.). ALLERGIES Allergen Reactions Augmentin [Amoxicil* Other: See Comments Adverse effect, developed yeast infection Bextra [Valdecoxib] Swelling Ankle swelling Celebrex [Celecoxib] Swelling ankle swelling Erythromycin Rash Latex Lovenox [Enoxaparin* Rash Vioxx [Rofecoxib] Swelling ankle swelling Voltaren [Diclofena* Swelling ankle swelling Indication for Warfarin: FPC (current) use of anticoagulants Embolism and thrombosis (hcc) Anticoagulation Episode Summary Current INR goal: 2.0-3.0 Assessment: INR result of is SUBtherapeutic due to: unknown cause - did not speak to patient Plan: Left voice message Advised patient to increase total weekly regimen Next home INR check scheduled on 08/03/2021 Asked her to call with questions or if there is a reason for her INR to still be low after a dose increase last time on 07/13/21. Dori Pepper [facility] Clinical Pharmacist, Pharmacy Anticoagulation Clinic Pharmacy Antico[facility] Clinic Pager: [phone] . * Telephone Encounter - Jovanny Peralta RPh - 07/27/2021 4:00 PM EDT Patient due to test INR today. Will continue to monitor for results. Jovanny Peralta RPh [facility] History of Present illness Narrative* Lisette Banks, DO - 07/23/2021 11:16 AM EDT Images from the original note were not included. Follow Up Visit Chief Complaint Morena Martinez is a 56 year old female who presents today for follow up office visit. Patient presents with: Right Lower Leg - Follow Up, Pain Left Shoulder - Follow Up, Pain History of Present Illness PAIN EVALUATION 07/23/2021 1117 Pain Level: 5 Pain Location: Shoulder-Left Description: Aching;Dull;Throbbing Duration Amount of Time: ongoing Frequency: Intermittent Intervention/Comfort measure: Reposition;Relaxation;Cold;Medication HPI: Morena Martinez is a 56 year old female for a follow up visit left shoulder pain. Here to discuss MRI reuslts of right lower leg and left shoulder. Pain history is noted as above. Denies calf pain, numbness, tingling, fever, chills or other constitutional symptoms. Is there any overall improvement in your condition? No Any new injury, since being seen last: No REVIEW OF SYMPTOMS: Patient did not have, and does not currently have, any weight loss, malaise, fever, chills, headache, chest pain, chest pressure, palpitations, cough, shortness of breath, orthopnea, paroxsymal nocturnal dyspnea, nausea, vomiting, diarrhea, constipation, melena, hematochezia, urinary difficulties, prolonged bleeding, easily bruising, heat or cold intolerance, new onset joint pain or swelling, newonset extremity weakness or numbness, new onset auditory or visual disturbances, lightheadedness, dizziness, partial loss of consciousness or full loss of consciousness. Current Outpatient Medications Medication Sig tiZANidine (ZANAFLEX) 4 mg tablet Take 1 tablet by mouth every 6 hours as needed. nystatin (MYCOSTATIN) cream Apply to affected area twice daily. warfarin (COUMADIN) 5 mg tablet 5 mg every Mon, Blaire; 7.5 mg all other days acetaminophen-codeine (TYLENOL-CODEINE #3) 300-30 mg per tablet Take 1 tablet by mouth twice daily as needed for pain for up to 90 days. lisinopril (ZESTRIL, PRINIVIL) 10 mg tablet Take 1 tablet by mouth once daily. gabapentin (NEURONTIN) 300 mg capsule Take 1 capsule by mouth daily at bedtime for 180 days. cyclobenzaprine (FLEXERIL) 10 mg tablet Take 1 tablet by mouth every 8 hours as needed for muscle spasm. for pain or spasms. atenolol (TENORMIN) 50 mg tablet Take 50 mg in the AM, 25 mg in the PM furosemide (LASIX) 20 mg tablet Take 1 tablet by mouth once daily. NEEDED SITagliptin (JANUVIA) 100 mg tablet Take 1 tablet by mouth once daily. furosemide (LASIX) 40 mg tablet Take 1 tablet by mouth once daily. No current facility-administered medications for this visit. Physical Exam Vitals: There were no vitals taken for this visit. Psych: Pleasant, good affect and mood General Appearance: Well appearing, alert, in no acute distress, well-hydrated, well nourished.. Skin: Skin color, texture, turgor normal, no suspicious rashes or lesions. Peripheral Pulses: Normal. Neurologic: Gait normal. Reflexes normal and symmetric. Sensation grossly intact.. Lymph Nodes: No cervical lymphadenopathy, No supraclavicular lymphadenopathy, No axillary lymphadenopathy. and No inguinal lymphadenopathy.. Respiratory: No recent pulmonary infection, hemoptysis, chronic cough, or shortness of breath at rest Rheumatologic: Joint deformities: left shoulder pain Right Shoulder Exam Right shoulder exam is normal. Tenderness The patient is experiencing no tenderness. Range of Motion Active abduction: normal Passive abduction: normal Extension: normal External rotation: normal Forward flexion: normal Internal rotation 0 degrees: normal Internal rotation 90 degrees: normal Muscle Strength Abduction: 5/5 Internal rotation: 5/5 External rotation: 5/5 Supraspinatus: 5/5 Subscapularis: 5/5 Biceps: 5/5 Tests Apprehension: negative Harkins test: negative Cross arm: negative Impingement: negative Other Erythema: absent Sensation: normal Pulse: present Left Shoulder Exam Tenderness The patient is experiencing tenderness in the biceps tendon. Range of Motion Active abduction: abnormal Passive abduction: normal Extension: normal External rotation: normal Forward flexion: normal Internal rotation 0 degrees: normal Internal rotation 90 degrees: normal Muscle Strength Abduction: 5/5 Internal rotation: 4/5 External rotation: 4/5 Supraspinatus: 4/5 Subscapularis: 5/5 Biceps: 5/5 Tests Apprehension: negative Harkins test: positive Cross arm: negative Impingement: positive Other Erythema: absent Sensation: normal Pulse: present Comments: Nvi-uln/rad/med nerves intact Assessment and Plan Radiographs: I have independently reviewed films and my findings are the same. and I have reviewed the images with the patient and family. IMPRESSION: In the area of palpable abnormality there is some subcutaneous lipomatous hypertrophy without focal encapsulated mass. No aggressive findings or suspicious soft tissue. Mild generalized subcutaneous edema in the medial lower leg. Thermospray [facility] Transcribe Date/Time: Jul 14 2021 3:15P Dictated by : YRN ROWE MD This examination was interpreted and the report reviewed and electronically signed by: JOSE ARMANDO BORGES MD on Jul 14 2021 4:44PM EST Impression IMPRESSION: Rotator cuff and long head biceps tendinosis without high-grade tear. Mild glenohumeral and acromioclavicular degenerative changes. Small joint effusion. Thermospray Operator: [facility] Transcribe Date/Time: Jul 14 2021 3:09P Dictated by : YRN ROWE MD Impression: Encounter Diagnosis ICD-10-CM 1. Chronic left shoulder pain M25.512 G89.29 2. Bursitis of left shoulder M75.52 3. Tendinitis of left shoulder M77.8 .if pain in right leg is not aggressive on MRI; follow up with repeat ultraound of leg if pain changes. Discussed with patient in detail. Risks and benefits vs alternatives to treatment were discussed with patient. Risks including but not limited to blood loss, blood clot, infection, neurovascular injury, failure of procedure, need forrevision operation, loss of life and loss of limb. Patient aware of risks and benefits and agrees to proceed with written consent for surgical intervention for left shoudler rc repair/sad/acromioplsaty/ biceps tenotomy vs tenodesis.. Today, in detail, through a thorough evaluation, we discussed possible etiologies of pain and our plans for further diagnostic and therapeutic interventions. We discussed strategies for decreasing pain and improving strength, stability and motion. Patient's questions were answered in detailed. Patient verbalizes understanding and agrees with the treatment plan as discussed. Will have patient scheduled for surgery for left shoulder and see if fits in schedule, discussed ifrepaired, will be in sling for 6 weeks. Patient aware and in agreement of plan. All questions answered. [facility] History of Past illness Narrative* Problem Noted Date Resolved Date Infrapatellar bursitis of right knee 08/11/2016 07/09/2021 Perirectal abscess 09/23/2015 07/09/2021 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/13/2011 07/09/2021 Abdominal pain, left lower quadrant 09/02/2009 03/09/2012 Diarrhea 09/02/2009 07/09/2021 Palpitations 01/29/2009 03/09/2012 Other abnormal glucose 11/19/2007 2 Dysmetabolic syndrome X 11/19/2007 07/10/19 22 documented as of this encounter (statuses as of 07/27/2021) [facility] of [facility] illness Narrative* Problem Noted Date Resolved Date Infrapatellar bursitis of right knee 08/11/2016 07/09/2021 Perirectal abscess 09/23/2015 07/09/2021 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/13/2011 07/09/2021 Abdominal pain, left lower quadrant 09/02/2009 03/09/2012 Diarrhea 09/02/2009 07/09/2021 Palpitations 01/29/2009 03/09/2012 Other abnormal glucose 11/19/2007 2 Dysmetabolic syndrome X 11/19/2007 07/10/19 22 documented as of this encounter (statuses as of 07/27/2021) [facility] Narrative* Problem Noted Date Resolved Date Infrapatellar bursitis of right knee 08/11/2016 07/09/2021 Perirectal abscess 09/23/2015 07/09/2021 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/13/2011 07/09/2021 Abdominal pain, left lower quadrant 09/02/2009 03/09/2012 Diarrhea 09/02/2009 07/09/2021 Palpitations 01/29/2009 03/09/2012 Other abnormal glucose 11/19/2007 2 Dysmetabolic syndrome X 11/19/2007 07/10/19 22 documented as of this encounter (statuses as of 07/28/2021) [facility] Narrative* Problem Noted Date Resolved Date Infrapatellar bursitis of right knee 08/11/2016 07/09/2021 Perirectal abscess 09/23/2015 07/09/2021 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/13/2011 07/09/2021 Abdominal pain, left lower quadrant 09/02/2009 03/09/2012 Diarrhea 09/02/2009 07/09/2021 Palpitations 01/29/2009 03/09/2012 Other abnormal glucose 11/19/2007 2 Dysmetabolic syndrome X 11/19/2007 07/10/19 22 documented as of this encounter (statuses as of 07/30/2021) [facility] Narrative* Problem Noted Date Resolved Date Infrapatellar bursitis of right knee 08/11/2016 07/09/2021 Perirectal abscess 09/23/2015 07/09/2021 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/13/2011 07/09/2021 Abdominal pain, left lower quadrant 09/02/2009 03/09/2012 Diarrhea 09/02/2009 07/09/2021 Palpitations 01/29/2009 03/09/2012 Other abnormal glucose 11/19/2007 2 Dysmetabolic syndrome X 11/19/2007 07/10/19 22 documented as of this encounter (statuses as of 08/09/2021) [facility] Narrative* Problem Noted Date Resolved Date Infrapatellar bursitis of right knee 08/11/2016 07/09/2021 Perirectal abscess 09/23/2015 07/09/2021 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/13/2011 07/09/2021 Abdominal pain, left lower quadrant 09/02/2009 03/09/2012 Diarrhea 09/02/2009 07/09/2021 Palpitations 01/29/2009 03/09/2012 Other abnormal glucose 11/19/2007 2 Dysmetabolic syndrome X 11/19/2007 07/10/19 22 documented as of this encounter (statuses as of 08/09/2021) [facility] Narrative* Problem Noted Date Resolved Date Infrapatellar bursitis of right knee 08/11/2016 07/09/2021 Perirectal abscess 09/23/2015 07/09/2021 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/13/2011 07/09/2021 Abdominal pain, left lower quadrant 09/02/2009 03/09/2012 Diarrhea 09/02/2009 07/09/2021 Palpitations 01/29/2009 03/09/2012 Other abnormal glucose 11/19/2007 2 Dysmetabolic syndrome X 11/19/2007 07/10/19 22 documented as of this encounter (statuses as of 08/19/2021) [facility] Diagnosis Bursitis of left shoulder- Primary Disorders of bursae and tendons in shoulder region, unspecified Tendinitis of left shoulder Disorders of bursae and tendons in shoulder region, unspecified [facility] Diagnosis Chronic left shoulder pain- Primary Pain in joint, shoulder region Bursitis of left shoulder Disorders of bursae and tendons in shoulder region, unspecified Tendinitis of left shoulder Disorders of bursae and tendons in shoulder region, unspecified Bursitis of left shoulder Disorders of bursae and tendons in shoulder region, unspecified Tendinitis of left shoulder Disorders of bursae and tendons in shoulder region, unspecified [facility]* 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 Long-term (current) use of anticoagulants Embolism and thrombosis (HCC) Embolism and thrombosis of unspecified site Bursitis of left shoulder Disorders of bursae and tendons in shoulder region, unspecified Tendinitis of left shoulder Disorders of bursae and tendons in shoulder region, unspecified [facility] Diagnosis Chronic midline low back pain without sciatica Bursitis of left shoulder Disorders of bursae and tendons in shoulder region, unspecified Tendinitis of left shoulder Disorders of bursae and tendons in shoulder region, unspecified [facility] 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 Long-term (current) use of anticoagulants Embolism and thrombosis (HCC) Embolism and thrombosis of unspecified site Bursitis of left shoulder Disorders of bursae and tendons in shoulder region, unspecified Tendinitis of left shoulder Disorders of bursae and tendons in shoulder region, unspecified [facility] Diagnosis Chronic midline low back pain without sciatica [facility]* Diagnosis Postoperative pain Other acute postoperative pain Chronic left shoulder pain Pain in joint, shoulder region Bursitis of left shoulder Disorders of bursae and tendons in shoulder region, unspecified Tendinitis of left shoulder Disorders of bursae and tendons in shoulder region, unspecified Rotator cuff syndrome of right shoulder Disorders of bursae and tendons in shoulder region, unspecified Post-operative pain Other acute postoperative pain Acute pain of left shoulder [facility] 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 Long-term (current) use of anticoagulants Embolism and thrombosis (HCC) Embolism and thrombosis of unspecified site [facility] Diagnosis Acute pain of left shoulder- Primary Post-operative pain Other acute postoperative pain Bursitis of left shoulder Disorders of bursae and tendons in shoulder region, unspecified Tendinitis of left shoulder Disorders of bursae and tendons in shoulder region, unspecified [facility] Diagnosis Acute pain of left shoulder- Primary Post-operative pain Other acute postoperative pain Bursitis of left shoulder Disorders of bursae and tendons in shoulder region, unspecified Tendinitis of left shoulder Disorders of bursae and tendons in shoulder region, unspecified [facility] Diagnosis Chronic midline low back pain without sciatica [facility]* Diagnosis Acute pain of left shoulder- Primary Post-operative pain Other acute postoperative pain Bursitis of left shoulder Disorders of bursae and tendons in shoulder region, unspecified Tendinitis of left shoulder Disorders of bursae and tendons in shoulder region, unspecified [facility]* Diagnosis Type 2 diabetes mellitus without complication, without long-term current use of insulin (HCC) [facility] Acute pain of left shoulder- Primary Post-operative pain Other acute postoperative pain Bursitis of left shoulder Disorders of bursae and tendons in shoulder region, unspecified Tendinitis of left shoulder Disorders of bursae and tendons in shoulder region, unspecified [facility] Diagnosis Acute pain of left shoulder- Primary Traumatic complete tear of left rotator cuff, subsequent encounter Postoperative pain Other acute postoperative pain [facility] Diagnosis Acute pain of left shoulder- Primary Post-operative pain Other acute postoperative pain Bursitis of left shoulder Disorders of bursae and tendons in shoulder region, unspecified Tendinitis of left shoulder Disorders of bursae and tendons in shoulder region, unspecified [facility] Diagnosis Acute pain of left shoulder- Primary Post-operative pain Other acute postoperative pain Bursitis of left shoulder Disorders of bursae and tendons in shoulder region, unspecified Tendinitis of left shoulder Disorders of bursae and tendons in shoulder region, unspecified [facility] Diagnosis Acute pain of left shoulder- Primary Post-operative pain Other acute postoperative pain Bursitis of left shoulder Disorders of bursae and tendons in shoulder region, unspecified Tendinitis of left shoulder Disorders of bursae and tendons in shoulder region, unspecified [facility] Diagnosis Acute pain of left shoulder- Primary Post-operative pain Other acute postoperative pain Bursitis of left shoulder Disorders of bursae and tendons in shoulder region, unspecified Tendinitis of left shoulder Disorders of bursae and tendons in shoulder region, unspecified [facility] Diagnosis Acute pain of left shoulder- Primary Post-operative pain Other acute postoperative pain Bursitis of left shoulder Disorders of bursae and tendons in shoulder region, unspecified Tendinitis of left shoulder Disorders of bursae and tendons in shoulder region, unspecified [facility] Diagnosis Acute pain of left shoulder- Primary Post-operative pain Other acute postoperative pain Bursitis of left shoulder Disorders of bursae and tendons in shoulder region, unspecified Tendinitis of left shoulder Disorders of bursae and tendons in shoulder region, unspecified [facility] Diagnosis Acute pain of left shoulder- Primary Post-operative pain Other acute postoperative pain Bursitis of left shoulder Disorders of bursae and tendons in shoulder region, unspecified Tendinitis of left shoulder Disorders of bursae and tendons in shoulder region, unspecified [facility] Diagnosis Chronic midline low back pain without sciatica [facility]* Diagnosis Inflammatory polyarthropathy (HCC)- Primary Unspecified inflammatory polyarthropathy Acute pain of left shoulder Bursitis of left shoulder Disorders of bursae and tendons in shoulder region, unspecified S/P shoulder surgery Other postprocedural status [facility]* Diagnosis Acute pain of left shoulder- Primary Post-operative pain Other acute postoperative pain Bursitis of left shoulder Disorders of bursae and tendons in shoulder region, unspecified Tendinitis of left shoulder Disorders of bursae and tendons in shoulder region, unspecified [facility] Diagnosis Acute pain of left shoulder- Primary Post-operative pain Other acute postoperative pain Bursitis of left shoulder Disorders of bursae and tendons in shoulder region, unspecified Tendinitis of left shoulder Disorders of bursae and tendons in shoulder region, unspecified [facility] Diagnosis Acute pain of left shoulder- Primary Post-operative pain Other acute postoperative pain Bursitis of left shoulder Disorders of bursae and tendons in shoulder region, unspecified Tendinitis of left shoulder Disorders of bursae and tendons in shoulder region, unspecified [facility]* Diagnosis Essential hypertension, benign [facility] Diagnosis Acute pain of left shoulder- Primary Post-operative pain Other acute postoperative pain Bursitis of left shoulder Disorders of bursae and tendons in shoulder region, unspecified Tendinitis of left shoulder Disorders of bursae and tendons in shoulder region, unspecified [facility] Diagnosis Acute pain of left shoulder- Primary Post-operative pain Other acute postoperative pain Bursitis of left shoulder Disorders of bursae and tendons in shoulder region, unspecified Tendinitis of left shoulder Disorders of bursae and tendons in shoulder region, unspecified [facility] Diagnosis Encounter for screening mammogram for breast cancer [facility]* Diagnosis Type 2 diabetes mellitus without complication, without long-term current use of insulin (HCC)- Primary Need for influenza vaccination Need for prophylactic vaccination and inoculation against influenza Essential hypertension, benign Class 3 severe obesity due to excess calories with serious comorbidity and body mass index (BMI) of 50.0 to 59.9 in adult (HCC) 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 Long-term (current) use of anticoagulants Skin irritation Unspecified disorder of skin and subcutaneous tissue NELSON (generalized anxiety disorder) Generalized anxiety disorder Sleeping difficulty Sleep disturbance, unspecified [facility] Diagnosis Pain in joint, multiple sites- Primary DDD (degenerative disc disease), lumbar Degeneration of lumbar or lumbosacral intervertebral disc Inflammatory polyarthropathy (HCC) Unspecified inflammatory polyarthropathy [facility]* Diagnosis Right knee pain, unspecified chronicity- Primary [facility]* Diagnosis BENIGN HYPERTENSION Essential hypertension, benign [facility] Diagnosis Bursitis of left shoulder- Primary Disorders of bursae and tendons in shoulder region, unspecified Pain in right foot Pain in limb [facility]* Diagnosis Bursitis of left shoulder Disorders of bursae and tendons in shoulder region, unspecified [facility]* Diagnosis Boil of groin- Primary Dizziness Dizziness and giddiness [facility]* Diagnosis ETD (Eustachian tube dysfunction), right- Primary [facility]* 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 Long-term (current) use of anticoagulants Embolism and thrombosis (HCC) Embolism and thrombosis of unspecified site [facility] Boil of groin- Primary [facility] Diagnosis Chronic midline low back pain without sciatica [facility] Diagnosis Right knee pain, unspecified chronicity [facility] 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 Long-term (current) use of anticoagulants Embolism and thrombosis (HCC) Embolism and thrombosis of unspecified site [facility] Diagnosis Adhesive capsulitis of left shoulder- Primary Adhesive capsulitis of shoulder [facility]* Diagnosis Onset Date Resolution Status Hidradenitis acute Nonhealing nonsurgical wound acute Hidradenitis acute Nonhealing nonsurgical wound acute [facility] Work Phone: Evaluation note* Diagnosis Onset Date Resolution Status Hidradenitis acute Nonhealing nonsurgical wound acute Hidradenitis acute Nonhealing nonsurgical wound acute Hidradenitis acute Nonhealing nonsurgical wound acute [facility] Work Phone: Evaluation note* Diagnosis Chronic midline low back pain without sciatica- Primary Bilateral hip pain Pain in joint, pelvic region and thigh Tendinitis of left shoulder Disorders of bursae and tendons in shoulder region, unspecified Type 2 diabetes mellitus without complication, without long-term current use of insulin (HCC) Essential hypertension, benign Mixed hyperlipidemia NELSON (generalized anxiety disorder) Generalized anxiety disorder Embolism and thrombosis (HCC) Embolism and thrombosis of unspecified site Skin irritation Unspecified disorder of skin and subcutaneous tissue [facility]* Diagnosis FPC (current) use of anticoagulants- Primary Long-term (current) use of anticoagulants Embolism and thrombosis (HCC) Embolism and thrombosis of unspecified site documented in this encounter [facility]* Diagnosis Throat pain- Primary Non-recurrent acute suppurative otitis media of right ear without spontaneous rupture of tympanic membrane [facility] 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 Long-term (current) use of anticoagulants Embolism and thrombosis (HCC) Embolism and thrombosis of unspecified site [facility]* Diagnosis FPC (current) use of anticoagulants- Primary Long-term (current) use of anticoagulants Embolism and thrombosis (HCC) Embolism and thrombosis of unspecified site [facility] Diagnosis FPC (current) use of anticoagulants- Primary Long-term (current) use of anticoagulants Embolism and thrombosis (HCC) Embolism and thrombosis of unspecified site [facility] this [facility]* Diagnosis Right knee pain, unspecified chronicity [facility] this [facility]* Diagnosis Acute pain of left shoulder- Primary Bursitis of left shoulder Disorders of bursae and tendons in shoulder region, unspecified Biceps tendinitis of left upper extremity [facility] Diagnosis Chronic midline low back pain without sciatica [facility]* Diagnosis Type 2 diabetes mellitus without complication, without long-term current use of insulin (HCC) [facility]* Diagnosis Type 2 diabetes mellitus without complication, without long-term current use of insulin (HCC) [facility]* Diagnosis Biceps tendinitis of left upper extremity- Primary [facility]* 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 Long-term (current) use of anticoagulants Embolism and thrombosis (HCC) Embolism and thrombosis of unspecified site [facility] Diagnosis Biceps tendinitis of left upper extremity- Primary Acute pain of left shoulder Bursitis of left shoulder Disorders of bursae and tendons in shoulder region, unspecified Shoulder impingement Other affections of shoulder region, not elsewhere classified Chronic left shoulder pain Pain in joint, shoulder region S/P shoulder surgery Other postprocedural status Adhesive capsulitis of left shoulder Adhesive capsulitis of shoulder [facility] Diagnosis Infected abrasion of skin of right hand- Primary Biceps tendinitis of left upper extremity Acute pain of left shoulder Bursitis of left shoulder Disorders of bursae and tendons in shoulder region, unspecified Shoulder impingement Other affections of shoulder region, not elsewhere classified [facility] Diagnosis Essential hypertension, benign Biceps tendinitis of left upper extremity Acute pain of left shoulder Bursitis of left shoulder Disorders of bursae and tendons in shoulder region, unspecified Shoulder impingement Other affections of shoulder region, not elsewhere classified [facility] Diagnosis Chronic midline low back pain without sciatica Biceps tendinitis of left upper extremity Acute pain of left shoulder Bursitis of left shoulder Disorders of bursae and tendons in shoulder region, unspecified Shoulder impingement Other affections of shoulder region, not elsewhere classified [facility] Diagnosis S/P shoulder surgery- Primary Other postprocedural status Biceps tendinitis of left upper extremity Acute pain of left shoulder Bursitis of left shoulder Disorders of bursae and tendons in shoulder region, unspecified Shoulder impingement Other affections of shoulder region, not elsewhere classified [facility]* Diagnosis Pre-operative examination- Primary Preoperative examination, unspecified Embolism and thrombosis (HCC) Embolism and thrombosis of unspecified site Essential hypertension, benign Former smoker Personal history of tobacco use, presenting hazards to health Irritable bowel syndrome, unspecified type Leg swelling Swelling of limb Restless legs syndrome (RLS) Status post total right knee replacement Chronic midline low back pain without sciatica Type 2 diabetes mellitus without complication, without long-term current use of insulin (HCC) Class 3 severe obesity due to excess calories with serious comorbidity and body mass index (BMI) of 50.0 to 59.9 in adult (HCC) Biceps tendinitis of left upper extremity Acute pain of left shoulder Bursitis of left shoulder Disorders of bursae and tendons in shoulder region, unspecified Shoulder impingement Other affections of shoulder region, not elsewhere classified [facility]* 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 Long-term (current) use of anticoagulants Embolism and thrombosis (HCC) Embolism and thrombosis of unspecified site Biceps tendinitis of left upper extremity Acute pain of left shoulder Bursitis of left shoulder Disorders of bursae and tendons in shoulder region, unspecified Shoulder impingement Other affections of shoulder region, not elsewhere classified [facility]* Diagnosis Encounter for screening mammogram for breast cancer Biceps tendinitis of left upper extremity Acute pain of left shoulder Bursitis of left shoulder Disorders of bursae and tendons in shoulder region, unspecified Shoulder impingement Other affections of shoulder region, not elsewhere classified [facility] this encounter [facility]* Diagnosis S/P shoulder surgery- Primary Other postprocedural status [facility] Diagnosis S/P arthroscopy of left shoulder- Primary [facility]* Diagnosis FPC (current) use of anticoagulants- Primary Long-term (current) use of anticoagulants Embolism and thrombosis (HCC) Embolism and thrombosis of unspecified site [facility]* Diagnosis S/P shoulder surgery- Primary Other postprocedural status [facility]* Diagnosis S/P shoulder surgery- Primary Other postprocedural status [facility]* Diagnosis S/P shoulder surgery- Primary Other postprocedural status documented in this encounter [facility] note* Diagnosis S/P shoulder surgery- Primary Other postprocedural status documented in this encounter [facility] note* Diagnosis 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 note* Diagnosis Type 2 diabetes mellitus without complication, without long-term current use of insulin (HCC)- Primary BENIGN HYPERTENSION Essential hypertension, benign Embolism and thrombosis (HCC) Embolism and thrombosis of unspecified site Inflammatory polyarthropathy (HCC) Unspecified inflammatory polyarthropathy Class 3 severe obesity due to excess calories with serious comorbidity and body mass index (BMI) of 50.0 to 59.9 in adult (HCC) Leg swelling Swelling of limb Chronic midline low back pain without sciatica Need for influenza vaccination Need for prophylactic vaccination and inoculation against influenza Need for vaccination Need for prophylactic vaccination and inoculation against unspecified single disease documented in this encounter [facility] note* Diagnosis S/P shoulder surgery- Primary Other postprocedural status documented [facility] encounter [facility]* Diagnosis 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 note* Diagnosis S/P arthroscopy of left shoulder- Primary Biceps tendinitis of left upper extremity [facility]* Diagnosis S/P shoulder surgery- Primary Other postprocedural status documented in this encounter [facility] note* Diagnosis FPC (current) use of anticoagulants- Primary Long-term (current) use of anticoagulants Embolism and thrombosis (HCC) Embolism and thrombosis of unspecified site [facility]* Diagnosis FPC (current) use of anticoagulants- Primary Long-term (current) use of anticoagulants Embolism and thrombosis (HCC) Embolism and thrombosis of unspecified site documented [facility] this encounter [facility]* Diagnosis Shoulder impingement Other affections of shoulder region, not elsewhere classified Traumatic complete tear of left rotator cuff, subsequent encounter Chronic left shoulder pain Pain in joint, shoulder region S/P shoulder surgery Other postprocedural status documented in this encounter [facility]* Diagnosis Hematuria, unspecified type- Primary [facility]* Diagnosis S/P shoulder surgery- Primary Other postprocedural status documented in this encounter [facility]* Diagnosis Chronic midline low back pain without sciatica documented in this encounter [facility]* Diagnosis Chronic midline low back pain without sciatica documented in this encounter [facility]* Diagnosis Right knee pain, unspecified chronicity documented in this encounter 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 Long-term (current) use of anticoagulants Embolism and thrombosis (HCC) Embolism and thrombosis of unspecified site documented in this encounter [facility]* Diagnosis Type 2 diabetes mellitus without complication, without long-term current use of insulin (HCC)- Primary Encounter for screening mammogram for malignant neoplasm of breast Other screening mammogram Essential hypertension, benign Chronic midline low back pain without sciatica Class 3 severe obesity due to excess calories with serious comorbidity and body mass index (BMI) of 50.0 to 59.9 in adult (HCC) Hx of [facility] use of blood thinners Long-term (current) use of anticoagulants [facility]* Diagnosis FPC (current) use of anticoagulants- Primary Long-term (current) use of anticoagulants Embolism and thrombosis (HCC) Embolism and thrombosis of unspecified site documented in this encounter [facility]* Diagnosis Skin infection- Primary Unspecified local infection of skin and subcutaneous tissue [facility]* Diagnosis Right knee pain, unspecified chronicity [facility] Diagnosis Chronic midline low back pain without sciatica documented [facility]* Diagnosis Right knee pain, unspecified chronicity documented [facility]* Diagnosis BENIGN HYPERTENSION Essential hypertension, benign [facility] Diagnosis Chronic midline low back pain without sciatica [facility]* Diagnosis Pre-operative examination- Primary Preoperative examination, unspecified Bursitis of left shoulder Disorders of bursae and tendons in shoulder region, unspecified Embolism and thrombosis (HCC) Embolism and thrombosis of unspecified site Essential hypertension, benign Irritable bowel syndrome, unspecified type Restless legs syndrome (RLS) Status post total knee replacement, unspecified laterality Type 2 diabetes mellitus without complication, without long-term current use of insulin (HCC) Leg swelling Swelling of limb Former smoker Personal history of tobacco use, presenting hazards to health Class 3 severe obesity due to excess calories with serious comorbidity and body mass index (BMI) of 50.0 to 59.9 in adult ([facility]) Pre-operative examination- Primary Preoperative examination, unspecified Embolism and thrombosis (HCC) Embolism and thrombosis of unspecified site Essential hypertension, benign Former smoker Personal history of tobacco use, presenting hazards to health Irritable bowel syndrome, unspecified type Leg swelling Swelling of limb Restless legs syndrome (RLS) Status post total right knee replacement Chronic midline low back pain without sciatica Type 2 diabetes mellitus without complication, without long-term current use of insulin ([facility]) Class 3 severe obesity due to excess calories with serious comorbidity and body mass index (BMI) of 50.0 to 59.9 in adult ([facility]) 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 Long-term (current) use of anticoagulants Embolism and thrombosis (HCC) Embolism and thrombosis of unspecified site [facility]* Diagnosis Pre-operative examination- Primary Preoperative examination, unspecified Bursitis of left shoulder Disorders of bursae and tendons in shoulder region, unspecified Embolism and thrombosis (HCC) Embolism and thrombosis of unspecified site Essential hypertension, benign Irritable bowel syndrome, unspecified type Restless legs syndrome (RLS) Status post total knee replacement, unspecified laterality Type 2 diabetes mellitus without complication, without long-term current use of insulin (HCC) Leg swelling Swelling of limb Former smoker Personal history of tobacco use, presenting hazards to health Class 3 severe obesity due to excess calories with serious comorbidity and body mass index (BMI) of 50.0 to 59.9 in adult ([facility]) Pre-operative examination- Primary Preoperative examination, unspecified Embolism and thrombosis (HCC) Embolism and thrombosis of unspecified site Essential hypertension, benign Former smoker Personal history of tobacco use, presenting hazards to health Irritable bowel syndrome, unspecified type Leg swelling Swelling of limb Restless legs syndrome (RLS) Status post total right knee replacement Chronic midline low back pain without sciatica Type 2 diabetes mellitus without complication, without long-term current use of insulin (HCC) Class 3 severe obesity due to excess calories with serious comorbidity and body mass index (BMI) of 50.0 to 59.9 in adult ([facility]) Right knee pain, unspecified chronicity documented in this encounter [facility] note* Diagnosis Pre-operative examination- Primary Preoperative examination, unspecified Bursitis of left shoulder Disorders of bursae and tendons in shoulder region, unspecified Embolism and thrombosis (HCC) Embolism and thrombosis of unspecified site Essential hypertension, benign Irritable bowel syndrome, unspecified type Restless legs syndrome (RLS) Status post total knee replacement, unspecified laterality Type 2 diabetes mellitus without complication, without long-term current use of insulin ([facility]) Leg swelling Swelling of limb Former smoker Personal history of tobacco use, presenting hazards to health Class 3 severe obesity due to excess calories with serious comorbidity and body mass index (BMI) of 50.0 to 59.9 in adult ([facility]) Pre-operative examination- Primary Preoperative examination, unspecified Embolism and thrombosis (HCC) Embolism and thrombosis of unspecified site Essential hypertension, benign Former smoker Personal history of tobacco use, presenting hazards to health Irritable bowel syndrome, unspecified type Leg swelling Swelling of limb Restless legs syndrome (RLS) Status post total right knee replacement Chronic midline low back pain without sciatica Type 2 diabetes mellitus without complication, without long-term current use of insulin ([facility]) Class 3 severe obesity due to excess calories with serious comorbidity and body mass index (BMI) of 50.0 to 59.9 in adult ([facility]) S/P arthroscopy of left shoulder documented in this encounter [facility] note* Diagnosis Pre-operative examination- Primary Preoperative examination, unspecified Bursitis of left shoulder Disorders of bursae and tendons in shoulder region, unspecified Embolism and thrombosis (HCC) Embolism and thrombosis of unspecified site Essential hypertension, benign Irritable bowel syndrome, unspecified type Restless legs syndrome (RLS) Status post total knee replacement, unspecified laterality Type 2 diabetes mellitus without complication, without long-term current use of insulin ([facility]) Leg swelling Swelling of limb Former smoker Personal history of tobacco use, presenting hazards to health Class 3 severe obesity due to excess calories with serious comorbidity and body mass index (BMI) of 50.0 to 59.9 in adult ([facility]) Pre-operative examination- Primary Preoperative examination, unspecified Embolism and thrombosis (HCC) Embolism and thrombosis of unspecified site Essential hypertension, benign Former smoker Personal history of tobacco use, presenting hazards to health Irritable bowel syndrome, unspecified type Leg swelling Swelling of limb Restless legs syndrome (RLS) Status post total right knee replacement Chronic midline low back pain without sciatica Type 2 diabetes mellitus without complication, without long-term current use of insulin ([facility]) Class 3 severe obesity due to excess calories with serious comorbidity and body mass index (BMI) of 50.0 to 59.9 in adult ([facility]) Acute cough Fever, unspecified fever cause documented in this encounter [facility] note* Diagnosis Pre-operative examination- Primary Preoperative examination, unspecified Bursitis of left shoulder Disorders of bursae and tendons in shoulder region, unspecified Embolism and thrombosis (HCC) Embolism and thrombosis of unspecified site Essential hypertension, benign Irritable bowel syndrome, unspecified type Restless legs syndrome (RLS) Status post total knee replacement, unspecified laterality Type 2 diabetes mellitus without complication, without long-term current use of insulin ([facility]) Leg swelling Swelling of limb Former smoker Personal history of tobacco use, presenting hazards to health Class 3 severe obesity due to excess calories with serious comorbidity and body mass index (BMI) of 50.0 to 59.9 in adult ([facility]) Shoulder impingement Other affections of shoulder region, not elsewhere classified Pre-operative examination- Primary Preoperative examination, unspecified Embolism and thrombosis (HCC) Embolism and thrombosis of unspecified site Essential hypertension, benign Former smoker Personal history of tobacco use, presenting hazards to health Irritable bowel syndrome, unspecified type Leg swelling Swelling of limb Restless legs syndrome (RLS) Status post total right knee replacement Chronic midline low back pain without sciatica Type 2 diabetes mellitus without complication, without long-term current use of insulin ([facility]) Class 3 severe obesity due to excess calories with serious comorbidity and body mass index (BMI) of 50.0 to 59.9 in adult ([facility]) documented in this encounter [facility] note* Diagnosis Pre-operative examination- Primary Preoperative examination, unspecified Bursitis of left shoulder Disorders of bursae and tendons in shoulder region, unspecified Embolism and thrombosis (HCC) Embolism and thrombosis of unspecified site Essential hypertension, benign Irritable bowel syndrome, unspecified type Restless legs syndrome (RLS) Status post total knee replacement, unspecified laterality Type 2 diabetes mellitus without complication, without long-term current use of insulin ([facility]) Leg swelling Swelling of limb Former smoker Personal history of tobacco use, presenting hazards to health Class 3 severe obesity due to excess calories with serious comorbidity and body mass index (BMI) of 50.0 to 59.9 in adult ([facility]) Pain in right foot Pain in limb Pre-operative examination- Primary Preoperative examination, unspecified Embolism and thrombosis (HCC) Embolism and thrombosis of unspecified site Essential hypertension, benign Former smoker Personal history of tobacco use, presenting hazards to health Irritable bowel syndrome, unspecified type Leg swelling Swelling of limb Restless legs syndrome (RLS) Status post total right knee replacement Chronic midline low back pain without sciatica Type 2 diabetes mellitus without complication, without long-term current use of insulin (HCC) Class 3 severe obesity due to excess calories with serious comorbidity and body mass index (BMI) of 50.0 to 59.9 in adult ([facility]) [facility]* Diagnosis Pre-operative examination- Primary Preoperative examination, unspecified Bursitis of left shoulder Disorders of bursae and tendons in shoulder region, unspecified Embolism and thrombosis (HCC) Embolism and thrombosis of unspecified site Essential hypertension, benign Irritable bowel syndrome, unspecified type Restless legs syndrome (RLS) Status post total knee replacement, unspecified laterality Type 2 diabetes mellitus without complication, without long-term current use of insulin (HCC) Leg swelling Swelling of limb Former smoker Personal history of tobacco use, presenting hazards to health Class 3 severe obesity due to excess calories with serious comorbidity and body mass index (BMI) of 50.0 to 59.9 in adult ([facility]) Pre-operative examination- Primary Preoperative examination, unspecified Embolism and thrombosis (HCC) Embolism and thrombosis of unspecified site Essential hypertension, benign Former smoker Personal history of tobacco use, presenting hazards to health Irritable bowel syndrome, unspecified type Leg swelling Swelling of limb Restless legs syndrome (RLS) Status post total right knee replacement Chronic midline low back pain without sciatica Type 2 diabetes mellitus without complication, without long-term current use of insulin (HCC) Class 3 severe obesity due to excess calories with serious comorbidity and body mass index (BMI) of 50.0 to 59.9 in adult ([facility]) Type 2 diabetes mellitus without complication, without long-term current use of insulin (HCC)- Primary Essential hypertension, benign Mixed hyperlipidemia Embolism and thrombosis (HCC) Embolism and thrombosis of unspecified site Right knee pain, unspecified chronicity Chronic midline low back pain without sciatica Class 3 severe obesity due to excess calories with serious comorbidity and body mass index (BMI) of 50.0 to 59.9 in adult ([facility]) Hair loss Alopecia, unspecified Encounter for immunization Need for other specified prophylactic vaccination against single bacterial disease documented in this encounter [facility] note* Diagnosis Cellulitis of left lower leg- Primary Cellulitis and abscess of leg, except foot Type 2 diabetes mellitus without complication, without long-term current use of insulin (HCC) Embolism and thrombosis (HCC) Embolism and thrombosis of unspecified site Essential hypertension, benign Mixed hyperlipidemia Chronic midline low back pain without sciatica Right knee pain, unspecified chronicity Leg swelling Swelling of limb Class 3 severe obesity due to excess calories with serious comorbidity and body mass index (BMI) of 50.0 to 59.9 in adult ([facility]) documented in this encounter [facility] note* Diagnosis Pre-operative examination- Primary Preoperative examination, unspecified Bursitis of left shoulder Disorders of bursae and tendons in shoulder region, unspecified Embolism and thrombosis (HCC) Embolism and thrombosis of unspecified site Essential hypertension, benign Irritable bowel syndrome, unspecified type Restless legs syndrome (RLS) Status post total knee replacement, unspecified laterality Type 2 diabetes mellitus without complication, without long-term current use of insulin (HCC) Leg swelling Swelling of limb Former smoker Personal history of tobacco use, presenting hazards to health Class 3 severe obesity due to excess calories with serious comorbidity and body mass index (BMI) of 50.0 to 59.9 in adult ([facility]) Pre-operative examination- Primary Preoperative examination, unspecified Embolism and thrombosis (HCC) Embolism and thrombosis of unspecified site Essential hypertension, benign Former smoker Personal history of tobacco use, presenting hazards to health Irritable bowel syndrome, unspecified type Leg swelling Swelling of limb Restless legs syndrome (RLS) Status post total right knee replacement Chronic midline low back pain without sciatica Type 2 diabetes mellitus without complication, without long-term current use of insulin (HCC) Class 3 severe obesity due to excess calories with serious comorbidity and body mass index (BMI) of 50.0 to 59.9 in adult ([facility]) 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 note* Diagnosis Pre-operative examination- Primary Preoperative examination, unspecified Bursitis of left shoulder Disorders of bursae and tendons in shoulder region, unspecified Embolism and thrombosis (HCC) Embolism and thrombosis of unspecified site Essential hypertension, benign Irritable bowel syndrome, unspecified type Restless legs syndrome (RLS) Status post total knee replacement, unspecified laterality Type 2 diabetes mellitus without complication, without long-term current use of insulin (HCC) Leg swelling Swelling of limb Former smoker Personal history of tobacco use, presenting hazards to health Class 3 severe obesity due to excess calories with serious comorbidity and body mass index (BMI) of 50.0 to 59.9 in adult ([facility]) Pre-operative examination- Primary Preoperative examination, unspecified Embolism and thrombosis (HCC) Embolism and thrombosis of unspecified site Essential hypertension, benign Former smoker Personal history of tobacco use, presenting hazards to health Irritable bowel syndrome, unspecified type Leg swelling Swelling of limb Restless legs syndrome (RLS) Status post total right knee replacement Chronic midline low back pain without sciatica Type 2 diabetes mellitus without complication, without long-term current use of insulin ([facility]) Class 3 severe obesity due to excess calories with serious comorbidity and body mass index (BMI) of 50.0 to 59.9 in adult ([facility]) Chronic midline low back pain without sciatica documented [facility] this encounter [facility]* Diagnosis Pre-operative examination- Primary Preoperative examination, unspecified Bursitis of left shoulder Disorders of bursae and tendons in shoulder region, unspecified Embolism and thrombosis (HCC) Embolism and thrombosis of unspecified site Essential hypertension, benign Irritable bowel syndrome, unspecified type Restless legs syndrome (RLS) Status post total knee replacement, unspecified laterality Type 2 diabetes mellitus without complication, without long-term current use of insulin (HCC) Leg swelling Swelling of limb Former smoker Personal history of tobacco use, presenting hazards to health Class 3 severe obesity due to excess calories with serious comorbidity and body mass index (BMI) of 50.0 to 59.9 in adult ([facility]) Pre-operative examination- Primary Preoperative examination, unspecified Embolism and thrombosis (HCC) Embolism and thrombosis of unspecified site Essential hypertension, benign Former smoker Personal history of tobacco use, presenting hazards to health Irritable bowel syndrome, unspecified type Leg swelling Swelling of limb Restless legs syndrome (RLS) Status post total right knee replacement Chronic midline low back pain without sciatica Type 2 diabetes mellitus without complication, without long-term current use of insulin ([facility]) Class 3 severe obesity due to excess calories with serious comorbidity and body mass index (BMI) of 50.0 to 59.9 in adult ([facility]) Right knee pain, unspecified chronicity documented in this encounter [facility] note* Diagnosis Pre-operative examination- Primary Preoperative examination, unspecified Bursitis of left shoulder Disorders of bursae and tendons in shoulder region, unspecified Embolism and thrombosis (HCC) Embolism and thrombosis of unspecified site Essential hypertension, benign Irritable bowel syndrome, unspecified type Restless legs syndrome (RLS) Status post total knee replacement, unspecified laterality Type 2 diabetes mellitus without complication, without long-term current use of insulin (HCC) Leg swelling Swelling of limb Former smoker Personal history of tobacco use, presenting hazards to health Class 3 severe obesity due to excess calories with serious comorbidity and body mass index (BMI) of 50.0 to 59.9 in adult ([facility]) Pre-operative examination- Primary Preoperative examination, unspecified Embolism and thrombosis (HCC) Embolism and thrombosis of unspecified site Essential hypertension, benign Former smoker Personal history of tobacco use, presenting hazards to health Irritable bowel syndrome, unspecified type Leg swelling Swelling of limb Restless legs syndrome (RLS) Status post total right knee replacement Chronic midline low back pain without sciatica Type 2 diabetes mellitus without complication, without long-term current use of insulin ([facility]) Class 3 severe obesity due to excess calories with serious comorbidity and body mass index (BMI) of 50.0 to 59.9 in adult ([facility]) Pain of right hip- Primary documented in this encounter [facility] note* Diagnosis Pre-operative examination- Primary Preoperative examination, unspecified Bursitis of left shoulder Disorders of bursae and tendons in shoulder region, unspecified Embolism and thrombosis (HCC) Embolism and thrombosis of unspecified site Essential hypertension, benign Irritable bowel syndrome, unspecified type Restless legs syndrome (RLS) Status post total knee replacement, unspecified laterality Type 2 diabetes mellitus without complication, without long-term current use of insulin (HCC) Leg swelling Swelling of limb Former smoker Personal history of tobacco use, presenting hazards to health Class 3 severe obesity due to excess calories with serious comorbidity and body mass index (BMI) of 50.0 to 59.9 in adult ([facility]) Pre-operative examination- Primary Preoperative examination, unspecified Embolism and thrombosis (HCC) Embolism and thrombosis of unspecified site Essential hypertension, benign Former smoker Personal history of tobacco use, presenting hazards to health Irritable bowel syndrome, unspecified type Leg swelling Swelling of limb Restless legs syndrome (RLS) Status post total right knee replacement Chronic midline low back pain without sciatica Type 2 diabetes mellitus without complication, without long-term current use of insulin ([facility]) Class 3 severe obesity due to excess calories with serious comorbidity and body mass index (BMI) of 50.0 to 59.9 in adult ([facility]) 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 note* Diagnosis Pre-operative examination- Primary Preoperative examination, unspecified Bursitis of left shoulder Disorders of bursae and tendons in shoulder region, unspecified Embolism and thrombosis (HCC) Embolism and thrombosis of unspecified site Essential hypertension, benign Irritable bowel syndrome, unspecified type Restless legs syndrome (RLS) Status post total knee replacement, unspecified laterality Type 2 diabetes mellitus without complication, without long-term current use of insulin (HCC) Leg swelling Swelling of limb Former smoker Personal history of tobacco use, presenting hazards to health Class 3 severe obesity due to excess calories with serious comorbidity and body mass index (BMI) of 50.0 to 59.9 in adult ([facility]) Pre-operative examination- Primary Preoperative examination, unspecified Embolism and thrombosis (HCC) Embolism and thrombosis of unspecified site Essential hypertension, benign Former smoker Personal history of tobacco use, presenting hazards to health Irritable bowel syndrome, unspecified type Leg swelling Swelling of limb Restless legs syndrome (RLS) Status post total right knee replacement Chronic midline low back pain without sciatica Type 2 diabetes mellitus without complication, without long-term current use of insulin ([facility]) Class 3 severe obesity due to excess calories with serious comorbidity and body mass index (BMI) of 50.0 to 59.9 in adult ([facility]) Chronic midline low back pain without sciatica documented in this encounter [facility] note* Diagnosis Pre-operative examination- Primary Preoperative examination, unspecified Bursitis of left shoulder Disorders of bursae and tendons in shoulder region, unspecified Embolism and thrombosis (HCC) Embolism and thrombosis of unspecified site Essential hypertension, benign Irritable bowel syndrome, unspecified type Restless legs syndrome (RLS) Status post total knee replacement, unspecified laterality Type 2 diabetes mellitus without complication, without long-term current use of insulin (HCC) Leg swelling Swelling of limb Former smoker Personal history of tobacco use, presenting hazards to health Class 3 severe obesity due to excess calories with serious comorbidity and body mass index (BMI) of 50.0 to 59.9 in adult ([facility]) Pre-operative examination- Primary Preoperative examination, unspecified Embolism and thrombosis (HCC) Embolism and thrombosis of unspecified site Essential hypertension, benign Former smoker Personal history of tobacco use, presenting hazards to health Irritable bowel syndrome, unspecified type Leg swelling Swelling of limb Restless legs syndrome (RLS) Status post total right knee replacement Chronic midline low back pain without sciatica Type 2 diabetes mellitus without complication, without long-term current use of insulin (HCC) Class 3 severe obesity due to excess calories with serious comorbidity and body mass index (BMI) of 50.0 to 59.9 in adult ([facility]) Pain of right hip [facility]* Diagnosis Pre-operative examination- Primary Preoperative examination, unspecified Bursitis of left shoulder Disorders of bursae and tendons in shoulder region, unspecified Embolism and thrombosis (HCC) Embolism and thrombosis of unspecified site Essential hypertension, benign Irritable bowel syndrome, unspecified type Restless legs syndrome (RLS) Status post total knee replacement, unspecified laterality Type 2 diabetes mellitus without complication, without long-term current use of insulin (HCC) Leg swelling Swelling of limb Former smoker Personal history of tobacco use, presenting hazards to health Class 3 severe obesity due to excess calories with serious comorbidity and body mass index (BMI) of 50.0 to 59.9 in adult ([facility]) Pre-operative examination- Primary Preoperative examination, unspecified Embolism and thrombosis (HCC) Embolism and thrombosis of unspecified site Essential hypertension, benign Former smoker Personal history of tobacco use, presenting hazards to health Irritable bowel syndrome, unspecified type Leg swelling Swelling of limb Restless legs syndrome (RLS) Status post total right knee replacement Chronic midline low back pain without sciatica Type 2 diabetes mellitus without complication, without long-term current use of insulin (HCC) Class 3 severe obesity due to excess calories with serious comorbidity and body mass index (BMI) of 50.0 to 59.9 in adult ([facility]) [facility] (current) use of anticoagulants- Primary Long-term (current) use of anticoagulants Embolism and thrombosis (HCC) Embolism and thrombosis of unspecified site [facility] Diagnosis Pre-operative examination- Primary Preoperative examination, unspecified Bursitis of left shoulder Disorders of bursae and tendons in shoulder region, unspecified Embolism and thrombosis (HCC) Embolism and thrombosis of unspecified site Essential hypertension, benign Irritable bowel syndrome, unspecified type Restless legs syndrome (RLS) Status post total knee replacement, unspecified laterality Type 2 diabetes mellitus without complication, without long-term current use of insulin (HCC) Leg swelling Swelling of limb Former smoker Personal history of tobacco use, presenting hazards to health Class 3 severe obesity due to excess calories with serious comorbidity and body mass index (BMI) of 50.0 to 59.9 in adult ([facility]) Pre-operative examination- Primary Preoperative examination, unspecified Embolism and thrombosis (HCC) Embolism and thrombosis of unspecified site Essential hypertension, benign Former smoker Personal history of tobacco use, presenting hazards to health Irritable bowel syndrome, unspecified type Leg swelling Swelling of limb Restless legs syndrome (RLS) Status post total right knee replacement Chronic midline low back pain without sciatica Type 2 diabetes mellitus without complication, without long-term current use of insulin (HCC) Class 3 severe obesity due to excess calories with serious comorbidity and body mass index (BMI) of 50.0 to 59.9 in adult ([facility]) Type 2 diabetes mellitus without complication, without long-term current use of insulin (HCC)- Primary Chronic midline low back pain without sciatica Pain of right hip Right knee pain, unspecified chronicity Inflammatory polyarthropathy (HCC) Unspecified inflammatory polyarthropathy Essential hypertension, benign Mixed hyperlipidemia Class 3 severe obesity due to excess calories with serious comorbidity and body mass index (BMI) of 50.0 to 59.9 in adult ([facility]) Embolism and thrombosis (HCC) Embolism and thrombosis of unspecified site Screening for depression Encounter for screening examination for other mental health and behavioral disorders [facility]* Diagnosis Pre-operative examination- Primary Preoperative examination, unspecified Bursitis of left shoulder Disorders of bursae and tendons in shoulder region, unspecified Embolism and thrombosis (HCC) Embolism and thrombosis of unspecified site Essential hypertension, benign Irritable bowel syndrome, unspecified type Restless legs syndrome (RLS) Status post total knee replacement, unspecified laterality Type 2 diabetes mellitus without complication, without long-term current use of insulin (HCC) Leg swelling Swelling of limb Former smoker Personal history of tobacco use, presenting hazards to health Class 3 severe obesity due to excess calories with serious comorbidity and body mass index (BMI) of 50.0 to 59.9 in adult ([facility]) Pre-operative examination- Primary Preoperative examination, unspecified Embolism and thrombosis (HCC) Embolism and thrombosis of unspecified site Essential hypertension, benign Former smoker Personal history of tobacco use, presenting hazards to health Irritable bowel syndrome, unspecified type Leg swelling Swelling of limb Restless legs syndrome (RLS) Status post total right knee replacement Chronic midline low back pain without sciatica Type 2 diabetes mellitus without complication, without long-term current use of insulin ([facility]) Class 3 severe obesity due to excess calories with serious comorbidity and body mass index (BMI) of 50.0 to 59.9 in adult ([facility]) Encounter for screening mammogram for breast cancer documented in this encounter [facility] note* Diagnosis Pre-operative examination- Primary Preoperative examination, unspecified Bursitis of left shoulder Disorders of bursae and tendons in shoulder region, unspecified Embolism and thrombosis (HCC) Embolism and thrombosis of unspecified site Essential hypertension, benign Irritable bowel syndrome, unspecified type Restless legs syndrome (RLS) Status post total knee replacement, unspecified laterality Type 2 diabetes mellitus without complication, without long-term current use of insulin (HCC) Leg swelling Swelling of limb Former smoker Personal history of tobacco use, presenting hazards to health Class 3 severe obesity due to excess calories with serious comorbidity and body mass index (BMI) of 50.0 to 59.9 in adult ([facility]) Pre-operative examination- Primary Preoperative examination, unspecified Embolism and thrombosis (HCC) Embolism and thrombosis of unspecified site Essential hypertension, benign Former smoker Personal history of tobacco use, presenting hazards to health Irritable bowel syndrome, unspecified type Leg swelling Swelling of limb Restless legs syndrome (RLS) Status post total right knee replacement Chronic midline low back pain without sciatica Type 2 diabetes mellitus without complication, without long-term current use of insulin ([facility]) Class 3 severe obesity due to excess calories with serious comorbidity and body mass index (BMI) of 50.0 to 59.9 in adult ([facility]) Abnormal mammogram- Primary Abnormal mammogram, unspecified documented in this encounter [facility] note* Diagnosis Pre-operative examination- Primary Preoperative examination, unspecified Bursitis of left shoulder Disorders of bursae and tendons in shoulder region, unspecified Embolism and thrombosis (HCC) Embolism and thrombosis of unspecified site Essential hypertension, benign Irritable bowel syndrome, unspecified type Restless legs syndrome (RLS) Status post total knee replacement, unspecified laterality Type 2 diabetes mellitus without complication, without long-term current use of insulin (HCC) Leg swelling Swelling of limb Former smoker Personal history of tobacco use, presenting hazards to health Class 3 severe obesity due to excess calories with serious comorbidity and body mass index (BMI) of 50.0 to 59.9 in adult ([facility]) Pre-operative examination- Primary Preoperative examination, unspecified Embolism and thrombosis (HCC) Embolism and thrombosis of unspecified site Essential hypertension, benign Former smoker Personal history of tobacco use, presenting hazards to health Irritable bowel syndrome, unspecified type Leg swelling Swelling of limb Restless legs syndrome (RLS) Status post total right knee replacement Chronic midline low back pain without sciatica Type 2 diabetes mellitus without complication, without long-term current use of insulin ([facility]) Class 3 severe obesity due to excess calories with serious comorbidity and body mass index (BMI) of 50.0 to 59.9 in adult ([facility]) Abnormal mammogram Abnormal mammogram, unspecified documented in this encounter [facility] note* Diagnosis Pre-operative examination- Primary Preoperative examination, unspecified Bursitis of left shoulder Disorders of bursae and tendons in shoulder region, unspecified Embolism and thrombosis (HCC) Embolism and thrombosis of unspecified site Essential hypertension, benign Irritable bowel syndrome, unspecified type Restless legs syndrome (RLS) Status post total knee replacement, unspecified laterality Type 2 diabetes mellitus without complication, without long-term current use of insulin (HCC) Leg swelling Swelling of limb Former smoker Personal history of tobacco use, presenting hazards to health Class 3 severe obesity due to excess calories with serious comorbidity and body mass index (BMI) of 50.0 to 59.9 in adult ([facility]) Pre-operative examination- Primary Preoperative examination, unspecified Embolism and thrombosis (HCC) Embolism and thrombosis of unspecified site Essential hypertension, benign Former smoker Personal history of tobacco use, presenting hazards to health Irritable bowel syndrome, unspecified type Leg swelling Swelling of limb Restless legs syndrome (RLS) Status post total right knee replacement Chronic midline low back pain without sciatica Type 2 diabetes mellitus without complication, without long-term current use of insulin ([facility]) Class 3 severe obesity due to excess calories with serious comorbidity and body mass index (BMI) of 50.0 to 59.9 in adult ([facility]) 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 note* Diagnosis Pre-operative examination- Primary Preoperative examination, unspecified Bursitis of left shoulder Disorders of bursae and tendons in shoulder region, unspecified Embolism and thrombosis (HCC) Embolism and thrombosis of unspecified site Essential hypertension, benign Irritable bowel syndrome, unspecified type Restless legs syndrome (RLS) Status post total knee replacement, unspecified laterality Type 2 diabetes mellitus without complication, without long-term current use of insulin (HCC) Leg swelling Swelling of limb Former smoker Personal history of tobacco use, presenting hazards to health Class 3 severe obesity due to excess calories with serious comorbidity and body mass index (BMI) of 50.0 to 59.9 in adult Pre-operative examination- Primary Preoperative examination, unspecified Embolism and thrombosis (HCC) Embolism and thrombosis of unspecified site Essential hypertension, benign Former smoker Personal history of tobacco use, presenting hazards to health Irritable bowel syndrome, unspecified type Leg swelling Swelling of limb Restless legs syndrome (RLS) Status post total right knee replacement Chronic midline low back pain without sciatica Type 2 diabetes mellitus without complication, without long-term current use of insulin (HCC) Class 3 severe obesity due to excess calories with serious comorbidity and body mass index (BMI) of 50.0 to 59.9 in adult Encounter for screening mammogram for breast cancer Encounter for screening [facility] for [facility] Pre-operative examination- Primary Preoperative examination, unspecified Bursitis of left shoulder Disorders of bursae and tendons in shoulder region, unspecified Embolism and thrombosis (HCC) Embolism and thrombosis of unspecified site Essential hypertension, benign Irritable bowel syndrome, unspecified type Restless legs syndrome (RLS) Status post total knee replacement, unspecified laterality Type 2 diabetes mellitus without complication, without long-term current use of insulin (HCC) Leg swelling Swelling of limb Former smoker Personal history of tobacco use, presenting hazards to health Class 3 severe obesity due to excess calories with serious comorbidity and body mass index (BMI) of 50.0 to 59.9 in adult Pre-operative examination- Primary Preoperative examination, unspecified Embolism and thrombosis (HCC) Embolism and thrombosis of unspecified site Essential hypertension, benign Former smoker Personal history of tobacco use, presenting hazards to health Irritable bowel syndrome, unspecified type Leg swelling Swelling of limb Restless legs syndrome (RLS) Status post total right knee replacement Chronic midline low back pain without sciatica Type 2 diabetes mellitus without complication, without long-term current use of insulin (HCC) Class 3 severe obesity due to excess calories with serious comorbidity and body mass index (BMI) of 50.0 to 59.9 in adult BENIGN HYPERTENSION Essential hypertension, benign documented in this encounter [facility] note* Diagnosis Pre-operative examination- Primary Preoperative examination, unspecified Bursitis of left shoulder Disorders of bursae and tendons in shoulder region, unspecified Embolism and thrombosis (HCC) Embolism and thrombosis of unspecified site Essential hypertension, benign Irritable bowel syndrome, unspecified type Restless legs syndrome (RLS) Status post total knee replacement, unspecified laterality Type 2 diabetes mellitus without complication, without long-term current use of insulin (HCC) Leg swelling Swelling of limb Former smoker Personal history of tobacco use, presenting hazards to health Class 3 severe obesity due to excess calories with serious comorbidity and body mass index (BMI) of 50.0 to 59.9 in adult Pre-operative examination- Primary Preoperative examination, unspecified Embolism and thrombosis (HCC) Embolism and thrombosis of unspecified site Essential hypertension, benign Former smoker Personal history of tobacco use, presenting hazards to health Irritable bowel syndrome, unspecified type Leg swelling Swelling of limb Restless legs syndrome (RLS) Status post total right knee replacement Chronic midline low back pain without sciatica Type 2 diabetes mellitus without complication, without long-term current use of insulin (HCC) Class 3 severe obesity due to excess calories with serious comorbidity and body mass index (BMI) of 50.0 to 59.9 in adult Primary osteoarthritis of right hip Primary localized osteoarthrosis, pelvic region and thigh documented in this encounter [facility] note* Diagnosis Pre-operative examination- Primary Preoperative examination, unspecified Bursitis of left shoulder Disorders of bursae and tendons in shoulder region, unspecified Embolism and thrombosis (HCC) Embolism and thrombosis of unspecified site Essential hypertension, benign Irritable bowel syndrome, unspecified type Restless legs syndrome (RLS) Status post total knee replacement, unspecified laterality Type 2 diabetes mellitus without complication, without long-term current use of insulin (HCC) Leg swelling Swelling of limb Former smoker Personal history of tobacco use, presenting hazards to health Class 3 severe obesity due to excess calories with serious comorbidity and body mass index (BMI) of 50.0 to 59.9 in adult (HCC) Pre-operative examination- Primary Preoperative examination, unspecified Embolism and thrombosis (HCC) Embolism and thrombosis of unspecified site Essential hypertension, benign Former smoker Personal history of tobacco use, presenting hazards to health Irritable bowel syndrome, unspecified type Leg swelling Swelling of limb Restless legs syndrome (RLS) Status post total right knee replacement Chronic midline low back pain without sciatica Type 2 diabetes mellitus without complication, without long-term current use of insulin (HCC) Class 3 severe obesity due to excess calories with serious comorbidity and body mass index (BMI) of 50.0 to 59.9 in adult (HCC) Chronic midline low back pain without sciatica documented in this encounter [facility] note* Diagnosis Pre-operative examination- Primary Preoperative examination, unspecified Bursitis of left shoulder Disorders of bursae and tendons in shoulder region, unspecified Embolism and thrombosis (HCC) Embolism and thrombosis of unspecified site Essential hypertension, benign Irritable bowel syndrome, unspecified type Restless legs syndrome (RLS) Status post total knee replacement, unspecified laterality Type 2 diabetes mellitus without complication, without long-term current use of insulin (HCC) Leg swelling Swelling of limb Former smoker Personal history of tobacco use, presenting hazards to health Class 3 severe obesity due to excess calories with serious comorbidity and body mass index (BMI) of 50.0 to 59.9 in adult (HCC) Pre-operative examination- Primary Preoperative examination, unspecified Embolism and thrombosis (HCC) Embolism and thrombosis of unspecified site Essential hypertension, benign Former smoker Personal history of tobacco use, presenting hazards to health Irritable bowel syndrome, unspecified type Leg swelling Swelling of limb Restless legs syndrome (RLS) Status post total right knee replacement Chronic midline low back pain without sciatica Type 2 diabetes mellitus without complication, without long-term current use of insulin (HCC) Class 3 severe obesity due to excess calories with serious comorbidity and body mass index (BMI) of 50.0 to 59.9 in adult (HCC) Pain of right hip- Primary documented in this encounter [facility] for referral (narrative)* Diagnostic Procedure Only (Routine) - Pending Review Specialty Diagnoses / Procedures Referred By Morgan guthrie Referred To Contact [facility] Diagnoses Encounter for screening mammogram for breast cancer Procedures ROSA SCREENING SCREENING MAMMOGRAPHY BI 2-VIEW BREAST INC Milka Moncada MD [address] [place] [address] [facility] [address] [place] [address] Referral ID Status Reason Start Date Expiration Date Visits Requested Visits Authorized [id number] Pending Review Auto-Generat ed Referral 01/05/2022 02/04/2023 1 1 [facility] for referral (narrative)* Diagnostic Procedure Only (Routine) - Pending Review Specialty Diagnoses / Procedures Referred By Morgan guthrie Referred To Contact [facility] Diagnoses Encounter for screening mammogram for breast cancer Procedures ROSA SCREENING SCREENING MAMMOGRAPHY BI 2-VIEW BREAST INC Milka Moncada MD [address] [place] [address] [facility] [address] [place] [address] Referral ID Status Reason Start Date Expiration Date Visits Requested Visits Authorized [id number] Pending Review Auto-Generat ed Referral 12/07/2022 01/06/2024 1 1 [facility] for referral (narrative)* Diagnostic Procedure Only (Routine) - Pending Review Specialty Diagnoses / Procedures Referred By Morgan guthrie Referred To Contact [facility] Diagnoses Encounter for screening mammogram for malignant neoplasm of breast Procedures ROSA SCREENING SCREENING MAMMOGRAPHY BI 2-VIEW BREAST INC Milka Moncada MD [address] [place] [address] [facility] [address] [place] [address] Referral ID Status Reason Start Date Expiration Date Visits Requested Visits Authorized [id number] Pending Review Auto-Generat ed Referral 08/15/2023 09/13/2024 1 1 T [facility] for referral (narrative)* Diagnostic Procedure Only (Routine) - Closed Specialty Diagnoses / Procedures Referred By Morgan t Referred To Contact [facility] Diagnoses S/P arthroscopy of left shoulder Procedures XR SHOULDER GENERAL 3V OR MORE AP/TRUE AP/OTHER LEFT RADEX SHOULDER COMPLETE MINIMUM 2 VIEWS Lisette Banks DO [address] [facility] [address] [place] [address] [place] [address] Referral ID Status Reason Start Date Expiration Date V isits Requested Visits Authorized [id number] Closed Auto-Generate d Referral 05/17/2023 06/15/2024 1 1 [facility] for referral (narrative)* Diagnostic Procedure Only (Routine) - Closed Specialty Diagnoses / Procedures Referred By Contac t Referred To Contact [facility] IMAG[facility] Diagnoses Shoulder impingement Procedures XR SHOULDER GENERAL 3V OR MORE AP/TRUE AP/OTHER LEFT RADEX SHOULDER COMPLETE MINIMUM 2 VIEWS Lisette Banks DO [address] [facility] [address] [place] [address] [place] [address] Referral ID Status Reason Start Date Expiration Date V isits Requested Visits Authorized [id number] Closed Auto-Generate d Referral 07/29/2022 08/28/2023 1 1 [facility] for referral (narrative)* Diagnostic Procedure Only (Routine) - Closed Specialty Diagnoses / Procedures Referred By Contac t Referred To Contact [facility] IM[facility] Diagnoses Pain in right foot Procedures XR FOOT GENERAL 3V AP/LAT/OBL RIGHT RADEX FOOT COMPLETE MINIMUM 3 VIEWS Lisette Banks DO [address] [place] [address] [place] [address] Referral ID Status Reason Start Date Expiration Date V isits Requested Visits Authorized [id number] Closed Auto-Generate d Referral 03/10/2022 04/09/2023 1 1 [facility] for referral (narrative)* Diagnostic Procedure Only (Routine) - New Request Specialty Diagnoses / Procedures Referred By Contac t Referred To Contact [facility] IMAG[facility] Diagnoses Pain of right hip Procedures XR HIP GENERAL 3V PELV/AP/LAT RIGHT RADEX HIP UNILATERAL WITH PELVIS 2-3 VIEWS Milka Mas MD [address] [place] [address] [place] [address] Referral ID Status Reason Start Date Expiration Date Visits Requested Visits Authorized [id number] New Request Auto-Generat ed Referral 4 05/23/2025 1 1 [facility] for visit Narrative* Diagnostic Procedure Only (Routine) - Closed Specialty Diagnoses / Procedures Referred By Contac t Referred To Contact XR IMAGING Diagnoses S/P arthroscopy of left shoulder Procedures XR SHOULDER GENERAL 3V OR MORE AP/TRUE AP/OTHER LEFT RADEX SHOULDER COMPLETE MINIMUM 2 VIEWS Lisette Banks DO [address] [place] [address] [place] [address] Referral ID Status Reason Start Date Expiration Date V isits Requested Visits Authorized [id number] Closed Auto-Generate d Referral 05/17/2023 06/15/2024 1 1 [facility] for visit Narrative* Diagnostic Procedure Only (Routine) - Closed Specialty Diagnoses / Procedures Referred By Contac t Referred To Contact XR IMAGING Diagnoses Shoulder impingement Procedures XR SHOULDER GENERAL 3V OR MORE AP/TRUE AP/OTHER LEFT RADEX SHOULDER COMPLETE MINIMUM 2 VIEWS Lisette Banks DO [address] [place] [address] [place] [address] Referral ID Status Reason Start Date Expiration Date V isits Requested Visits Authorized [id number] Closed Auto-Generate d Referral 07/29/2022 08/28/2023 1 1 [facility] for visit Narrative* Diagnostic Procedure Only (Routine) - Closed Specialty Diagnoses / Procedures Referred By Contac t Referred To Contact XR IMAGING Diagnoses Pain in right foot Procedures XR FOOT GENERAL 3V AP/LAT/OBL RIGHT RADEX FOOT COMPLETE MINIMUM 3 VIEWS Lisette Banks DO [address] [place] [address] [place] [address] Referral ID Status Reason Start Date Expiration Date V isits Requested Visits Authorized [id number] Closed Auto-Generate d Referral 03/10/2022 04/09/2023 1 1 [facility] for visit Narrative* Diagnostic Procedure Only (Routine) - Closed Specialty Diagnoses / Procedures Referred By Morgan guthrie Referred To Contact XR IMAGING Diagnoses Pain of right hip Procedures XR HIP GENERAL 3V PELV/AP/LAT RIGHT RADEX HIP UNILATERAL WITH PELVIS 2-3 VIEWS Milka Mas MD [address] [place] [address] Phone: tel: fax: [place] [address] Referral ID Status Reason Start Date Expiration Date V isits Requested Visits Authorized [id number] Closed Auto-Generate d Referral 04/23/2024 05/23/2025 1 1 [facility] for visit Narrative* Diagnostic Procedure Only (Routine) - Closed Specialty Diagnoses / Procedures Referred By Morgan guthrie Referred To Contact [facility] Diagnoses Encounter for screening mammogram for breast cancer Procedures ROSA SCREENING W MARIAH SCREENING DIGITAL BREAST TOMOSYNTHESIS BI SCREENING MAMMOGRAPHY BI 2-VIEW BREAST INC CAD Milka Mas MD [address] [place] [address] Phone: tel: fax: [facility] [address] [place] [address] Referral ID Status Reason Start Date Expiration Date V isits Requested Visits Authorized [id number] Closed Auto-Generate d Referral 07/16/2024 08/15/2025 1 1 [facility] Summary Purpose Family History No Family History Records Found Relationship Condition Age at Onset Recorded Date/T mary sister Cardiac disease Unknown brother Cardiac disease Unknown father Cardiac disease Unknown mother Malignant neoplasm of breast Unknown Advance Directives No Advanced Directives Records FoundDocuments on File Type Date Recorded 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 Advance Directive(s) 08/04/2021 9:07 AM Documents on File Type Date Recorded 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 Advance Directive(s) 08/31/2021 11:30 AM Advance Directive(s) 08/04/2021 9:07 AM Documents on File Type Date Recorded 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 Advance Directive(s) 08/31/2021 11:30 AM Advance Directive(s) 08/04/2021 9:07 AM Advance Directive Response Recorded Date/ Time Advance Directives No July 09 7:39am Living Will No February 08 8:21am Power of Clinical Assistant Professor No February 09, 2020 8:21am Advance Directive Response Recorded Date/ Time Advance Directives No July 09 2 019 8:39am Living Will No February 08 9:21am Power of Clinical Assistant Professor No February 09, 2020 9:21am Reason for Referral Specialty Diagnoses / Procedures Referred By Contac t Referred To Contact [facility] Diagnoses Postoperative pain Chronic left shoulder pain Bursitis of left shoulder Tendinitis of left shoulder Rotator cuff syndrome of right shoulder Post-operative pain Acute pain of left shoulder Procedures PT REHAB FOLLOW UP ORDER THERAPEUTIC EXERCISES RE, EA 15 MIN. Pt [facility] [address] [facility] [place] [address] [facility] [address] [address] Referral ID Status Reason Start Date Expiration Date Visits Requested Visits Authorized [id number] Pending Review PCP Requested Referral Auto-Generate d Referral 09/16/2021 12/15/2021 1 1 Specialty Diagnoses / Procedures Referred By Contac t Referred To Contact [facility] Diagnoses Post-operative pain Acute pain of left shoulder Bursitis of left shoulder Tendinitis of left shoulder Procedures PT REHAB FOLLOW UP ORDER THERAPEUTIC EXERCISES RE, EA 15 MIN. Pt [facility] [address] [place] [address] [facility] [address] [address] Referral ID Status Reason Start Date Expiration Date Visits Requested Visits Authorized [id number] Pending Review PCP Requested Referral Auto-Generate d Referral 10/04/2021 01/02/2022 1 1 Referral ID Status Reason Start Date Expiration Date Visits Requested Visits Authorized [id number] Pending Review PCP Requested Referral Auto-Generate d Referral 11/02/2021 01/31/2022 1 1 Referral ID Status Reason Start Date Expiration Date Visits Requested Visits Authorized [id number] Pending Review PCP Requested Referral Auto-Generate d Referral 11/25/2021 02/23/2022 1 1 Specialty Diagnoses / Procedures Referred By Contac t Referred To Contact Rheumatology Diagnoses Inflammatory polyarthropathy (HCC) Procedures CONSULT TO RHEUM/IMMUN DISEASE OFFICE/OUTPATIENT [facility] MDM 60-74 MINUTES Lisette Banks DO [address] [place] [address] Referral ID Status Reason Start Date Expiration Date Visits Requested Visits Authorized [id number] Authorized PCP Requested Referral 12/01/2021 12/01/2022 1 1 Specialty Diagnoses / Procedures Referred By Contac t Referred To Contact [facility] Diagnoses Bursitis of left shoulder Procedures CONSULT TO PHYSICAL THERAPY PHYSICAL THERAPY EVALUATION HIGH COMPLEX 45 MINS Lisette Banks DO [address] [place] [address] [facility] [place] [address] [place] [address] Referral ID Status Reason Start Date Expiration Date Visits Requested Visits Authorized [id number] Pending Review Auto-Generat ed Referral 2 03/10/2023 1 1 Specialty Diagnoses / Procedures Referred By Contac t Referred To Contact XR IMAGING Diagnoses Pain in right foot Procedures XR FOOT GENERAL 3V AP/LAT/OBL RIGHT RADEX FOOT COMPLETE MINIMUM 3 VIEWS Lisette Banks [place] [facility] [place] [address] X[facility] Referral ID Status Reason Start Date Expiration Date Visits Requested Visits Authorized [id number] Pending Review Auto-Generat ed Referral 2 04/09/2023 1 1 Specialty Diagnoses / Procedures Referred By Contac t Referred To Contact [facility] Diagnoses Bursitis of left shoulder Procedures PT REHAB FOLLOW UP ORDER THERAPEUTIC EXERCISES RE, EA 15 MIN. Pt [facility] [address] [place] [address] [facility] [place] [address] [place] [address] Referral ID Status Reason Start Date Expiration Date Visits Requested Visits Authorized [id number] Pending Review PCP Requested Referral Auto-Generate d Referral 2 06/14/2022 1 1 Specialty Diagnoses / Procedures Referred By Contac t Referred To Contact General Surgery Diagnoses Boil of groin Procedures CONSULT TO GENERAL SURGERY OFFICE/OUTPATIENT [facility] MDM 60-74 MINUTES Milka Mas MD [address] [place] [address] Referral ID Status Reason Start Date Expiration Date Visits Requested Visits Authorized [id number] Authorized PCP Requested Referral 04/27/2023 1 1 Specialty Diagnoses / Procedures Referred By Contac t Referred To Contact [facility] Diagnoses Adhesive capsulitis of left shoulder Procedures CONSULT TO PHYSICAL THERAPY PHYSICAL THERAPY EVALUATION HIGH COMPLEX 45 MINS Lisette Banks DO [address] [place] [address] [facility] [id number] [place] [address] Referral ID Status Reason Start Date Expiration Date Visits Requested Visits Authorized [id number] Pending Review Auto-Generat ed Referral 06/09/2022 06/09/2023 1 1 Specialty Diagnoses / Procedures Referred By Contac t Referred To Contact [facility] Diagnoses S/P shoulder surgery Procedures CONSULT TO PHYSICAL THERAPY PHYSICAL THERAPY EVALUATION HIGH COMPLEX 45 MINS Silva Parson PA-C [address] [place] [address] [facility] [address] [address] Referral ID Status Reason Start Date Expiration Date Visits Requested Visits Authorized [id number] Pending Review Auto-Generat ed Referral 11/30/2022 11/30/2023 1 1 Specialty Diagnoses / Procedures Referred By Contac t Referred To Contact [facility] Diagnoses S/P shoulder surgery Procedures PT REHAB FOLLOW UP ORDER THERAPEUTIC EXERCISES RE, EA 15 MIN. Carli Mariano, PT [address] [place] [address] [facility] [address] [address] Referral ID Status Reason Start Date Expiration Date Visits Requested Visits Authorized [id number] Pending Review PCP Requested Referral Auto-Generate d Referral 12/30/2022 03/30/2023 1 1 Specialty Diagnoses / Procedures Referred By Contac t Referred To Contact [facility] Diagnoses S/P shoulder surgery Procedures PT REHAB FOLLOW UP ORDER THERAPEUTIC EXERCISES RE, EA 15 MIN. Pt [facility] [address] [place] [address] [facility] [place] [address] [place] [address] Referral ID Status Reason Start Date Expiration Date Visits Requested Visits Authorized [id number] Pending Review PCP Requested Referral Auto-Generate d Referral 2023 04/26/2023 1 1 Specialty Diagnoses / Procedures Referred By Contac t Referred To Contact Milka Mas MD [address] [place] [address] Referral ID Status Reason Start Date Expiration Date V isits Requested Visits Authorized [id number] Authorized 02/07/2023 02/07/2023 1 1 Referral ID Status Reason Start Date Expiration Date Visits Requested Visits Authorized [id number] Pending Review PCP Requested Referral Auto-Generate d Referral 3 05/22/2023 1 1 Specialty Diagnoses / Procedures Referred By Contac t Referred To Contact MR IMAGING Diagnoses Shoulder impingement Traumatic complete tear of left rotator cuff, subsequent encounter Chronic left shoulder pain S/P shoulder surgery Procedures MRI SHOULDER WO IVCON LEFT MRI ANY JT UPPER EXTREMITY W/O CONTRAST Lisette Dooley DO [address] [place] [address] Mr Imaging [id number] Referral ID Status Reason Start Date Expiration Date V isits Requested Visits Authorized [id number] Closed Auto-Generate d Referral 08/22/2022 09/21/2022 1 1 Referral ID Status Reason Start Date Expiration Date Visits Requested Visits Authorized [id number] Pending Review PCP Requested Referral Auto-Generate d Referral 3 06/18/2023 1 1 Chief Complaint and Reason for Visit Chief Complaint WOUND WOUND WOUND WOUND WOUND L SHOULDER RX HERE Reason for Visit Hidradenitis Nonhealing nonsurgical wound Hidradenitis Nonhealing nonsurgical wound Chief Complaint WOUND WOUND WOUND WOUND WOUND WOUND WOUND L SHOULDER RX HERE Reason for Visit Hidradenitis Nonhealing nonsurgical wound Hidradenitis Nonhealing nonsurgical wound Hidradenitis Nonhealing nonsurgical wound Medications Administered Section Inactive Administered Medications - up to 3 most recent administrations Medication Order MAR Action Action Date Dose Rate Site lidocaine (PF) 10 mg/mL (1 %) 1 mL injection (XYLOCAINE) 1 mL, Injection - FOR ORTHO USE ONLY, ONE TIME INJECTION, 1 dose, Starting on Mon10/28/22 at 1131, Until Mon10/28/22 at 1131 Given 10/28/2022 11:31 AM EDT 1 mL A rm, Left triamcinolone acetonide 40 mg injection (KeNALog 40) 40 mg, Injection - FOR ORTHO USE ONLY, ONE TIME INJECTION, 1 dose, Starting on Mon10/28/22 at 1131, Until Mon10/28/22 at 1131 Given 10/28/2022 11:31 AM EDT 40 mg A rm, Left Additional Source Comments INFORMATION SOURCE (unrecogn ized section and content) DATE CREATED AUTHOR 10/20/2017 [facility] DATE CREATED AUTHOR AUTHOR'S ORGANIZ ATION 10/24/2017 [facility] DATE CREATED AUTHOR AUTHOR'S ORGANIZ ATION 05/19/2023 [facility] [place] DATE CREATED AUTHOR AUTHOR'S ORGANIZ ATION 11/25/2023 [facility] DATE CREATED AUTHOR AUTHOR'S ORGANIZ ATION 10/19/2024 [facility] Source Comments (unrecognize d section and content) In the event this informatio n is protected by the Federal Confidentiality of Alcohol and Drug Abuse Patient Records regulations: The Federal rules restrict any use of the information to criminally investigate or prosecute any alcohol or drug abuse patient.[facility] the event this information is protected by the Federal Confidentiality of Alcohol and Drug Abuse Patient Records regulations: The Federal rules restrict any use of the information to criminally investigate or prosecute any alcohol or drug abuse patient.[facility] HospitalIn the event this information is protected by the Federal Confidentiality of Alcohol and Drug Abuse Patient Records regulations: The Federal rules restrict any use of the information to criminally investigate or prosecute any alcohol or drug abuse patient.[facility] HospitalIn the event this information is protected by the Federal Confidentiality of Alcohol and Drug Abuse Patient Records regulations: The Federal rules restrict any use of the information to criminally investigate or prosecute any alcohol or drug abuse patient.[facility] HospitalIn the event this information is protected by the Federal Confidentiality of Alcohol and Drug Abuse Patient Records regulations: The Federal rules restrict any use of the information to criminally investigate or prosecute any alcohol or drug abuse patient.[facility] HospitalIn the event this information is protected by the Federal Confidentiality of Alcohol and Drug Abuse Patient Records regulations: The Federal rules restrict any use of the information to criminally investigate or prosecute any alcohol or drug abuse patient.[facility] the event this information is protected by the Federal Confidentiality of Alcohol and Drug Abuse Patient Records regulations: The Federal rules restrict any use of the information to criminally investigate or prosecute any alcohol or drug abuse patient.[facility] HospitalIn the event this information is protected by the Federal Confidentiality of Alcohol and Drug Abuse Patient Records regulations: The Federal rules restrict any use of the information to criminally investigate or prosecute any alcohol or drug abuse patient.[facility] HospitalIn the event this information is protected by the Federal Confidentiality of Alcohol and Drug Abuse Patient Records regulations: The Federal rules restrict any use of the information to criminally investigate or prosecute any alcohol or drug abuse patient.[facility] HospitalIn the event this information is protected by the Federal Confidentiality of Alcohol and Drug Abuse Patient Records regulations: The Federal rules restrict any use of the information to criminally investigate or prosecute any alcohol or drug abuse patient.[facility] HospitalIn the event this information is protected by the Federal Confidentiality of Alcohol and Drug Abuse Patient Records regulations: The Federal rules restrict any use of the information to criminally investigate or prosecute any alcohol or drug abuse patient.[facility] HospitalIn the event this information is protected by the Federal Confidentiality of Alcohol and Drug Abuse Patient Records regulations: The Federal rules restrict any use of the information to criminally investigate or prosecute any alcohol or drug abuse patient.[facility] HospitalIn the event this information is protected by the Federal Confidentiality of Alcohol and Drug Abuse Patient Records regulations: The Federal rules restrict any use of the information to criminally investigate or prosecute any alcohol or drug abuse patient.[facility] HospitalIn the event this information is protected by the Federal Confidentiality of Alcohol and Drug Abuse Patient Records regulations: The Federal rules restrict any use of the information to criminally investigate or prosecute any alcohol or drug abuse patient.[facility] HospitalIn the event this information is protected by the Federal Confidentiality of Alcohol and Drug Abuse Patient Records regulations: The Federal rules restrict any use of the information to criminally investigate or prosecute any alcohol or drug abuse patient.[facility] HospitalIn the event this information is protected by the Federal Confidentiality of Alcohol and Drug Abuse Patient Records regulations: The Federal rules restrict any use of the information to criminally investigate or prosecute any alcohol or drug abuse patient.[facility] HospitalIn the event this information is protected by the Federal Confidentiality of Alcohol and Drug Abuse Patient Records regulations: The Federal rules restrict any use of the information to criminally investigate or prosecute any alcohol or drug abuse patient.[facility] HospitalIn the event this information is protected by the Federal Confidentiality of Alcohol and Drug Abuse Patient Records regulations: The Federal rules restrict any use of the information to criminally investigate or prosecute any alcohol or drug abuse patient.[facility] HospitalIn the event this information is protected by the Federal Confidentiality of Alcohol and Drug Abuse Patient Records regulations: The Federal rules restrict any use of the information to criminally investigate or prosecute any alcohol or drug abuse patient.[facility] HospitalIn the event this information is protected by the Federal Confidentiality of Alcohol and Drug Abuse Patient Records regulations: The Federal rules restrict any use of the information to criminally investigate or prosecute any alcohol or drug abuse patient.[facility] HospitalIn the event this information is protected by the Federal Confidentiality of Alcohol and Drug Abuse Patient Records regulations: The Federal rules restrict any use of the information to criminally investigate or prosecute any alcohol or drug abuse patient.[facility] HospitalIn the event this information is protected by the Federal Confidentiality of Alcohol and Drug Abuse Patient Records regulations: The Federal rules restrict any use of the information to criminally investigate or prosecute any alcohol or drug abuse patient.[facility] HospitalIn the event this information is protected by the Federal Confidentiality of Alcohol and Drug Abuse Patient Records regulations: The Federal rules restrict any use of the information to criminally investigate or prosecute any alcohol or drug abuse patient.[facility] HospitalIn the event this information is protected by the Federal Confidentiality of Alcohol and Drug Abuse Patient Records regulations: The Federal rules restrict any use of the information to criminally investigate or prosecute any alcohol or drug abuse patient.[facility] HospitalIn the event this information is protected by the Federal Confidentiality of Alcohol and Drug Abuse Patient Records regulations: The Federal rules restrict any use of the information to criminally investigate or prosecute any alcohol or drug abuse patient.[facility] HospitalIn the event this information is protected by the Federal Confidentiality of Alcohol and Drug Abuse Patient Records regulations: The Federal rules restrict any use of the information to criminally investigate or prosecute any alcohol or drug abuse patient.[facility] HospitalIn the event this information is protected by the Federal Confidentiality of Alcohol and Drug Abuse Patient Records regulations: The Federal rules restrict any use of the information to criminally investigate or prosecute any alcohol or drug abuse patient.[facility] HospitalIn the event this information is protected by the Federal Confidentiality of Alcohol and Drug Abuse Patient Records regulations: The Federal rules restrict any use of the information to criminally investigate or prosecute any alcohol or drug abuse patient.[facility] HospitalIn the event this information is protected by the Federal Confidentiality of Alcohol and Drug Abuse Patient Records regulations: The Federal rules restrict any use of the information to criminally investigate or prosecute any alcohol or drug abuse patient.[facility] HospitalIn the event this information is protected by the Federal Confidentiality of Alcohol and Drug Abuse Patient Records regulations: The Federal rules restrict any use of the information to criminally investigate or prosecute any alcohol or drug abuse patient.[facility] HospitalIn the event this information is protected by the Federal Confidentiality of Alcohol and Drug Abuse Patient Records regulations: The Federal rules restrict any use of the information to criminally investigate or prosecute any alcohol or drug abuse patient.[facility] HospitalIn the event this information is protected by the Federal Confidentiality of Alcohol and Drug Abuse Patient Records regulations: The Federal rules restrict any use of the information to criminally investigate or prosecute any alcohol or drug abuse patient.[facility] HospitalIn the event this information is protected by the Federal Confidentiality of Alcohol and Drug Abuse Patient Records regulations: The Federal rules restrict any use of the information to criminally investigate or prosecute any alcohol or drug abuse patient.[facility] HospitalIn the event this information is protected by the Federal Confidentiality of Alcohol and Drug Abuse Patient Records regulations: The Federal rules restrict any use of the information to criminally investigate or prosecute any alcohol or drug abuse patient.[facility] HospitalIn the event this information is protected by the Federal Confidentiality of Alcohol and Drug Abuse Patient Records regulations: The Federal rules restrict any use of the information to criminally investigate or prosecute any alcohol or drug abuse patient.[facility] HospitalIn the event this information is protected by the Federal Confidentiality of Alcohol and Drug Abuse Patient Records regulations: The Federal rules restrict any use of the information to criminally investigate or prosecute any alcohol or drug abuse patient.[facility] HospitalIn the event this information is protected by the Federal Confidentiality of Alcohol and Drug Abuse Patient Records regulations: The Federal rules restrict any use of the information to criminally investigate or prosecute any alcohol or drug abuse patient.[facility] HospitalIn the event this information is protected by the Federal Confidentiality of Alcohol and Drug Abuse Patient Records regulations: The Federal rules restrict any use of the information to criminally investigate or prosecute any alcohol or drug abuse patient.[facility] HospitalIn the event this information is protected by the Federal Confidentiality of Alcohol and Drug Abuse Patient Records regulations: The Federal rules restrict any use of the information to criminally investigate or prosecute any alcohol or drug abuse patient.[facility] HospitalIn the event this information is protected by the Federal Confidentiality of Alcohol and Drug Abuse Patient Records regulations: The Federal rules restrict any use of the information to criminally investigate or prosecute any alcohol or drug abuse patient.[facility] HospitalIn the event this information is protected by the Federal Confidentiality of Alcohol and Drug Abuse Patient Records regulations: The Federal rules restrict any use of the information to criminally investigate or prosecute any alcohol or drug abuse patient.[facility] HospitalIn the event this information is protected by the Federal Confidentiality of Alcohol and Drug Abuse Patient Records regulations: The Federal rules restrict any use of the information to criminally investigate or prosecute any alcohol or drug abuse patient.[facility] HospitalIn the event this information is protected by the Federal Confidentiality of Alcohol and Drug Abuse Patient Records regulations: The Federal rules restrict any use of the information to criminally investigate or prosecute any alcohol or drug abuse patient.[facility] HospitalIn the event this information is protected by the Federal Confidentiality of Alcohol and Drug Abuse Patient Records regulations: The Federal rules restrict any use of the information to criminally investigate or prosecute any alcohol or drug abuse patient.[facility] HospitalIn the event this information is protected by the Federal Confidentiality of Alcohol and Drug Abuse Patient Records regulations: The Federal rules restrict any use of the information to criminally investigate or prosecute any alcohol or drug abuse patient.[facility] HospitalIn the event this information is protected by the Federal Confidentiality of Alcohol and Drug Abuse Patient Records regulations: The Federal rules restrict any use of the information to criminally investigate or prosecute any alcohol or drug abuse patient.[facility] HospitalIn the event this information is protected by the Federal Confidentiality of Alcohol and Drug Abuse Patient Records regulations: The Federal rules restrict any use of the information to criminally investigate or prosecute any alcohol or drug abuse patient.[facility] HospitalIn the event this information is protected by the Federal Confidentiality of Alcohol and Drug Abuse Patient Records regulations: The Federal rules restrict any use of the information to criminally investigate or prosecute any alcohol or drug abuse patient.[facility] HospitalIn the event this information is protected by the Federal Confidentiality of Alcohol and Drug Abuse Patient Records regulations: The Federal rules restrict any use of the information to criminally investigate or prosecute any alcohol or drug abuse patient.[facility] HospitalIn the event this information is protected by the Federal Confidentiality of Alcohol and Drug Abuse Patient Records regulations: The Federal rules restrict any use of the information to criminally investigate or prosecute any alcohol or drug abuse patient.[facility] HospitalIn the event this information is protected by the Federal Confidentiality of Alcohol and Drug Abuse Patient Records regulations: The Federal rules restrict any use of the information to criminally investigate or prosecute any alcohol or drug abuse patient.[facility] HospitalIn the event this information is protected by the Federal Confidentiality of Alcohol and Drug Abuse Patient Records regulations: The Federal rules restrict any use of the information to criminally investigate or prosecute any alcohol or drug abuse patient.[facility] HospitalIn the event this information is protected by the Federal Confidentiality of Alcohol and Drug Abuse Patient Records regulations: The Federal rules restrict any use of the information to criminally investigate or prosecute any alcohol or drug abuse patient.[facility] HospitalIn the event this information is protected by the Federal Confidentiality of Alcohol and Drug Abuse Patient Records regulations: The Federal rules restrict any use of the information to criminally investigate or prosecute any alcohol or drug abuse patient.[facility] HospitalIn the event this information is protected by the Federal Confidentiality of Alcohol and Drug Abuse Patient Records regulations: The Federal rules restrict any use of the information to criminally investigate or prosecute any alcohol or drug abuse patient.[facility] HospitalIn the event this information is protected by the Federal Confidentiality of Alcohol and Drug Abuse Patient Records regulations: The Federal rules restrict any use of the information to criminally investigate or prosecute any alcohol or drug abuse patient.[facility] the event this information is protected by the Federal Confidentiality of Alcohol and Drug Abuse Patient Records regulations: The Federal rules restrict any use of the information to criminally investigate or prosecute any alcohol or drug abuse patient.[facility] HospitalIn the event this information is protected by the Federal Confidentiality of Alcohol and Drug Abuse Patient Records regulations: The Federal rules restrict any use of the information to criminally investigate or prosecute any alcohol or drug abuse patient.[facility] HospitalIn the event this information is protected by the Federal Confidentiality of Alcohol and Drug Abuse Patient Records regulations: The Federal rules restrict any use of the information to criminally investigate or prosecute any alcohol or drug abuse patient.[facility] HospitalIn the event this information is protected by the Federal Confidentiality of Alcohol and Drug Abuse Patient Records regulations: The Federal rules restrict any use of the information to criminally investigate or prosecute any alcohol or drug abuse patient.[facility] HospitalIn the event this information is protected by the Federal Confidentiality of Alcohol and Drug Abuse Patient Records regulations: The Federal rules restrict any use of the information to criminally investigate or prosecute any alcohol or drug abuse patient.[facility] HospitalIn the event this information is protected by the Federal Confidentiality of Alcohol and Drug Abuse Patient Records regulations: The Federal rules restrict any use of the information to criminally investigate or prosecute any alcohol or drug abuse patient.[facility] HospitalIn the event this information is protected by the Federal Confidentiality of Alcohol and Drug Abuse Patient Records regulations: The Federal rules restrict any use of the information to criminally investigate or prosecute any alcohol or drug abuse patient.[facility] HospitalIn the event this information is protected by the Federal Confidentiality of Alcohol and Drug Abuse Patient Records regulations: The Federal rules restrict any use of the information to criminally investigate or prosecute any alcohol or drug abuse patient.[facility] HospitalIn the event this information is protected by the Federal Confidentiality of Alcohol and Drug Abuse Patient Records regulations: The Federal rules restrict any use of the information to criminally investigate or prosecute any alcohol or drug abuse patient.[facility] HospitalIn the event this information is protected by the Federal Confidentiality of Alcohol and Drug Abuse Patient Records regulations: The Federal rules restrict any use of the information to criminally investigate or prosecute any alcohol or drug abuse patient.[facility] HospitalIn the event this information is protected by the Federal Confidentiality of Alcohol and Drug Abuse Patient Records regulations: The Federal rules restrict any use of the information to criminally investigate or prosecute any alcohol or drug abuse patient.[facility] HospitalIn the event this information is protected by the Federal Confidentiality of Alcohol and Drug Abuse Patient Records regulations: The Federal rules restrict any use of the information to criminally investigate or prosecute any alcohol or drug abuse patient.[facility] HospitalIn the event this information is protected by the Federal Confidentiality of Alcohol and Drug Abuse Patient Records regulations: The Federal rules restrict any use of the information to criminally investigate or prosecute any alcohol or drug abuse patient.[facility] HospitalIn the event this information is protected by the Federal Confidentiality of Alcohol and Drug Abuse Patient Records regulations: The Federal rules restrict any use of the information to criminally investigate or prosecute any alcohol or drug abuse patient.[facility] HospitalIn the event this information is protected by the Federal Confidentiality of Alcohol and Drug Abuse Patient Records regulations: The Federal rules restrict any use of the information to criminally investigate or prosecute any alcohol or drug abuse patient.[facility] HospitalIn the event this information is protected by the Federal Confidentiality of Alcohol and Drug Abuse Patient Records regulations: The Federal rules restrict any use of the information to criminally investigate or prosecute any alcohol or drug abuse patient.[facility] HospitalIn the event this information is protected by the Federal Confidentiality of Alcohol and Drug Abuse Patient Records regulations: The Federal rules restrict any use of the information to criminally investigate or prosecute any alcohol or drug abuse patient.[facility] HospitalIn the event this information is protected by the Federal Confidentiality of Alcohol and Drug Abuse Patient Records regulations: The Federal rules restrict any use of the information to criminally investigate or prosecute any alcohol or drug abuse patient.[facility] HospitalIn the event this information is protected by the Federal Confidentiality of Alcohol and Drug Abuse Patient Records regulations: The Federal rules restrict any use of the information to criminally investigate or prosecute any alcohol or drug abuse patient.[facility] HospitalIn the event this information is protected by the Federal Confidentiality of Alcohol and Drug Abuse Patient Records regulations: The Federal rules restrict any use of the information to criminally investigate or prosecute any alcohol or drug abuse patient.[facility] HospitalIn the event this information is protected by the Federal Confidentiality of Alcohol and Drug Abuse Patient Records regulations: The Federal rules restrict any use of the information to criminally investigate or prosecute any alcohol or drug abuse patient.[facility] HospitalIn the event this information is protected by the Federal Confidentiality of Alcohol and Drug Abuse Patient Records regulations: The Federal rules restrict any use of the information to criminally investigate or prosecute any alcohol or drug abuse patient.[facility] HospitalIn the event this information is protected by the Federal Confidentiality of Alcohol and Drug Abuse Patient Records regulations: The Federal rules restrict any use of the information to criminally investigate or prosecute any alcohol or drug abuse patient.[facility] HospitalIn the event this information is protected by the Federal Confidentiality of Alcohol and Drug Abuse Patient Records regulations: The Federal rules restrict any use of the information to criminally investigate or prosecute any alcohol or drug abuse patient.[facility] HospitalIn the event this information is protected by the Federal Confidentiality of Alcohol and Drug Abuse Patient Records regulations: The Federal rules restrict any use of the information to criminally investigate or prosecute any alcohol or drug abuse patient.[facility] HospitalIn the event this information is protected by the Federal Confidentiality of Alcohol and Drug Abuse Patient Records regulations: The Federal rules restrict any use of the information to criminally investigate or prosecute any alcohol or drug abuse patient.[facility] HospitalIn the event this information is protected by the Federal Confidentiality of Alcohol and Drug Abuse Patient Records regulations: The Federal rules restrict any use of the information to criminally investigate or prosecute any alcohol or drug abuse patient.[facility] HospitalIn the event this information is protected by the Federal Confidentiality of Alcohol and Drug Abuse Patient Records regulations: The Federal rules restrict any use of the information to criminally investigate or prosecute any alcohol or drug abuse patient.[facility] HospitalIn the event this information is protected by the Federal Confidentiality of Alcohol and Drug Abuse Patient Records regulations: The Federal rules restrict any use of the information to criminally investigate or prosecute any alcohol or drug abuse patient.[facility] HospitalIn the event this information is protected by the Federal Confidentiality of Alcohol and Drug Abuse Patient Records regulations: The Federal rules restrict any use of the information to criminally investigate or prosecute any alcohol or drug abuse patient.[facility] HospitalIn the event this information is protected by the Federal Confidentiality of Alcohol and Drug Abuse Patient Records regulations: The Federal rules restrict any use of the information to criminally investigate or prosecute any alcohol or drug abuse patient.[facility] HospitalIn the event this information is protected by the Federal Confidentiality of Alcohol and Drug Abuse Patient Records regulations: The Federal rules restrict any use of the information to criminally investigate or prosecute any alcohol or drug abuse patient.[facility] HospitalIn the event this information is protected by the Federal Confidentiality of Alcohol and Drug Abuse Patient Records regulations: The Federal rules restrict any use of the information to criminally investigate or prosecute any alcohol or drug abuse patient.[facility] HospitalIn the event this information is protected by the Federal Confidentiality of Alcohol and Drug Abuse Patient Records regulations: The Federal rules restrict any use of the information to criminally investigate or prosecute any alcohol or drug abuse patient.[facility] HospitalIn the event this information is protected by the Federal Confidentiality of Alcohol and Drug Abuse Patient Records regulations: The Federal rules restrict any use of the information to criminally investigate or prosecute any alcohol or drug abuse patient.[facility] HospitalIn the event this information is protected by the Federal Confidentiality of Alcohol and Drug Abuse Patient Records regulations: The Federal rules restrict any use of the information to criminally investigate or prosecute any alcohol or drug abuse patient.[facility] HospitalIn the event this information is protected by the Federal Confidentiality of Alcohol and Drug Abuse Patient Records regulations: The Federal rules restrict any use of the information to criminally investigate or prosecute any alcohol or drug abuse patient.[facility] HospitalIn the event this information is protected by the Federal Confidentiality of Alcohol and Drug Abuse Patient Records regulations: The Federal rules restrict any use of the information to criminally investigate or prosecute any alcohol or drug abuse patient.[facility] HospitalIn the event this information is protected by the Federal Confidentiality of Alcohol and Drug Abuse Patient Records regulations: The Federal rules restrict any use of the information to criminally investigate or prosecute any alcohol or drug abuse patient.[facility] HospitalIn the event this information is protected by the Federal Confidentiality of Alcohol and Drug Abuse Patient Records regulations: The Federal rules restrict any use of the information to criminally investigate or prosecute any alcohol or drug abuse patient.[facility] HospitalIn the event this information is protected by the Federal Confidentiality of Alcohol and Drug Abuse Patient Records regulations: The Federal rules restrict any use of the information to criminally investigate or prosecute any alcohol or drug abuse patient.[facility] HospitalIn the event this information is protected by the Federal Confidentiality of Alcohol and Drug Abuse Patient Records regulations: The Federal rules restrict any use of the information to criminally investigate or prosecute any alcohol or drug abuse patient.[facility] HospitalIn the event this information is protected by the Federal Confidentiality of Alcohol and Drug Abuse Patient Records regulations: The Federal rules restrict any use of the information to criminally investigate or prosecute any alcohol or drug abuse patient.[facility] HospitalIn the event this information is protected by the Federal Confidentiality of Alcohol and Drug Abuse Patient Records regulations: The Federal rules restrict any use of the information to criminally investigate or prosecute any alcohol or drug abuse patient.[facility] HospitalIn the event this information is protected by the Federal Confidentiality of Alcohol and Drug Abuse Patient Records regulations: The Federal rules restrict any use of the information to criminally investigate or prosecute any alcohol or drug abuse patient.[facility] HospitalIn the event this information is protected by the Federal Confidentiality of Alcohol and Drug Abuse Patient Records regulations: The Federal rules restrict any use of the information to criminally investigate or prosecute any alcohol or drug abuse patient.[facility] HospitalIn the event this information is protected by the Federal Confidentiality of Alcohol and Drug Abuse Patient Records regulations: The Federal rules restrict any use of the information to criminally investigate or prosecute any alcohol or drug abuse patient.[facility] HospitalIn the event this information is protected by the Federal Confidentiality of Alcohol and Drug Abuse Patient Records regulations: The Federal rules restrict any use of the information to criminally investigate or prosecute any alcohol or drug abuse patient.[facility] HospitalIn the event this information is protected by the Federal Confidentiality of Alcohol and Drug Abuse Patient Records regulations: The Federal rules restrict any use of the information to criminally investigate or prosecute any alcohol or drug abuse patient.[facility] HospitalIn the event this information is protected by the Federal Confidentiality of Alcohol and Drug Abuse Patient Records regulations: The Federal rules restrict any use of the information to criminally investigate or prosecute any alcohol or drug abuse patient.[facility] [facility] the event this information is protected by the Federal Confidentiality of Alcohol and Drug Abuse Patient Records regulations: The Federal rules restrict any use of the information to criminally investigate or prosecute any alcohol or drug abuse patient.[facility] HospitalIn the event this information is protected by the Federal Confidentiality of Alcohol and Drug Abuse Patient Records regulations: The Federal rules restrict any use of the information to criminally investigate or prosecute any alcohol or drug abuse patient.[facility] HospitalIn the event this information is protected by the Federal Confidentiality of Alcohol and Drug Abuse Patient Records regulations: The Federal rules restrict any use of the information to criminally investigate or prosecute any alcohol or drug abuse patient.[facility] HospitalIn the event this information is protected by the Federal Confidentiality of Alcohol and Drug Abuse Patient Records regulations: The Federal rules restrict any use of the information to criminally investigate or prosecute any alcohol or drug abuse patient.[facility] HospitalIn the event this information is protected by the Federal Confidentiality of Alcohol and Drug Abuse Patient Records regulations: The Federal rules restrict any use of the information to criminally investigate or prosecute any alcohol or drug abuse patient.[facility] HospitalIn the event this information is protected by the Federal Confidentiality of Alcohol and Drug Abuse Patient Records regulations: The Federal rules restrict any use of the information to criminally investigate or prosecute any alcohol or drug abuse patient.[facility] HospitalIn the event this information is protected by the Federal Confidentiality of Alcohol and Drug Abuse Patient Records regulations: The Federal rules restrict any use of the information to criminally investigate or prosecute any alcohol or drug abuse patient.[facility] HospitalIn the event this information is protected by the Federal Confidentiality of Alcohol and Drug Abuse Patient Records regulations: The Federal rules restrict any use of the information to criminally investigate or prosecute any alcohol or drug abuse patient.[facility] HospitalIn the event this information is protected by the Federal Confidentiality of Alcohol and Drug Abuse Patient Records regulations: The Federal rules restrict any use of the information to criminally investigate or prosecute any alcohol or drug abuse patient.[facility] HospitalIn the event this information is protected by the Federal Confidentiality of Alcohol and Drug Abuse Patient Records regulations: The Federal rules restrict any use of the information to criminally investigate or prosecute any alcohol or drug abuse patient.[facility] HospitalIn the event this information is protected by the Federal Confidentiality of Alcohol and Drug Abuse Patient Records regulations: The Federal rules restrict any use of the information to criminally investigate or prosecute any alcohol or drug abuse patient.[facility] HospitalIn the event this information is protected by the Federal Confidentiality of Alcohol and Drug Abuse Patient Records regulations: The Federal rules restrict any use of the information to criminally investigate or prosecute any alcohol or drug abuse patient.[facility] HospitalIn the event this information is protected by the Federal Confidentiality of Alcohol and Drug Abuse Patient Records regulations: The Federal rules restrict any use of the information to criminally investigate or prosecute any alcohol or drug abuse patient.[facility] HospitalIn the event this information is protected by the Federal Confidentiality of Alcohol and Drug Abuse Patient Records regulations: The Federal rules restrict any use of the information to criminally investigate or prosecute any alcohol or drug abuse patient.[facility] HospitalIn the event this information is protected by the Federal Confidentiality of Alcohol and Drug Abuse Patient Records regulations: The Federal rules restrict any use of the information to criminally investigate or prosecute any alcohol or drug abuse patient.[facility] HospitalIn the event this information is protected by the Federal Confidentiality of Alcohol and Drug Abuse Patient Records regulations: The Federal rules restrict any use of the information to criminally investigate or prosecute any alcohol or drug abuse patient.[facility] HospitalIn the event this information is protected by the Federal Confidentiality of Alcohol and Drug Abuse Patient Records regulations: The Federal rules restrict any use of the information to criminally investigate or prosecute any alcohol or drug abuse patient.[facility] HospitalIn the event this information is protected by the Federal Confidentiality of Alcohol and Drug Abuse Patient Records regulations: The Federal rules restrict any use of the information to criminally investigate or prosecute any alcohol or drug abuse patient.[facility] HospitalIn the event this information is protected by the Federal Confidentiality of Alcohol and Drug Abuse Patient Records regulations: The Federal rules restrict any use of the information to criminally investigate or prosecute any alcohol or drug abuse patient.[facility] HospitalIn the event this information is protected by the Federal Confidentiality of Alcohol and Drug Abuse Patient Records regulations: The Federal rules restrict any use of the information to criminally investigate or prosecute any alcohol or drug abuse patient.[facility] HospitalIn the event this information is protected by the Federal Confidentiality of Alcohol and Drug Abuse Patient Records regulations: The Federal rules restrict any use of the information to criminally investigate or prosecute any alcohol or drug abuse patient.[facility] HospitalIn the event this information is protected by the Federal Confidentiality of Alcohol and Drug Abuse Patient Records regulations: The Federal rules restrict any use of the information to criminally investigate or prosecute any alcohol or drug abuse patient.[facility] HospitalIn the event this information is protected by the Federal Confidentiality of Alcohol and Drug Abuse Patient Records regulations: The Federal rules restrict any use of the information to criminally investigate or prosecute any alcohol or drug abuse patient.[facility] HospitalIn the event this information is protected by the Federal Confidentiality of Alcohol and Drug Abuse Patient Records regulations: The Federal rules restrict any use of the information to criminally investigate or prosecute any alcohol or drug abuse patient.[facility] HospitalIn the event this information is protected by the Federal Confidentiality of Alcohol and Drug Abuse Patient Records regulations: The Federal rules restrict any use of the information to criminally investigate or prosecute any alcohol or drug abuse patient.[facility] HospitalIn the event this information is protected by the Federal Confidentiality of Alcohol and Drug Abuse Patient Records regulations: The Federal rules restrict any use of the information to criminally investigate or prosecute any alcohol or drug abuse patient.[facility] HospitalIn the event this information is protected by the Federal Confidentiality of Alcohol and Drug Abuse Patient Records regulations: The Federal rules restrict any use of the information to criminally investigate or prosecute any alcohol or drug abuse patient.[facility] HospitalIn the event this information is protected by the Federal Confidentiality of Alcohol and Drug Abuse Patient Records regulations: The Federal rules restrict any use of the information to criminally investigate or prosecute any alcohol or drug abuse patient.[facility] HospitalIn the event this information is protected by the Federal Confidentiality of Alcohol and Drug Abuse Patient Records regulations: The Federal rules restrict any use of the information to criminally investigate or prosecute any alcohol or drug abuse patient.[facility] HospitalIn the event this information is protected by the Federal Confidentiality of Alcohol and Drug Abuse Patient Records regulations: The Federal rules restrict any use of the information to criminally investigate or prosecute any alcohol or drug abuse patient.[facility] HospitalIn the event this information is protected by the Federal Confidentiality of Alcohol and Drug Abuse Patient Records regulations: The Federal rules restrict any use of the information to criminally investigate or prosecute any alcohol or drug abuse patient.[facility] HospitalIn the event this information is protected by the Federal Confidentiality of Alcohol and Drug Abuse Patient Records regulations: The Federal rules restrict any use of the information to criminally investigate or prosecute any alcohol or drug abuse patient.[facility] HospitalIn the event this information is protected by the Federal Confidentiality of Alcohol and Drug Abuse Patient Records regulations: The Federal rules restrict any use of the information to criminally investigate or prosecute any alcohol or drug abuse patient.[facility] HospitalIn the event this information is protected by the Federal Confidentiality of Alcohol and Drug Abuse Patient Records regulations: The Federal rules restrict any use of the information to criminally investigate or prosecute any alcohol or drug abuse patient.[facility] HospitalIn the event this information is protected by the Federal Confidentiality of Alcohol and Drug Abuse Patient Records regulations: The Federal rules restrict any use of the information to criminally investigate or prosecute any alcohol or drug abuse patient.[facility] HospitalIn the event this information is protected by the Federal Confidentiality of Alcohol and Drug Abuse Patient Records regulations: The Federal rules restrict any use of the information to criminally investigate or prosecute any alcohol or drug abuse patient.[facility] HospitalIn the event this information is protected by the Federal Confidentiality of Alcohol and Drug Abuse Patient Records regulations: The Federal rules restrict any use of the information to criminally investigate or prosecute any alcohol or drug abuse patient.[facility] HospitalIn the event this information is protected by the Federal Confidentiality of Alcohol and Drug Abuse Patient Records regulations: The Federal rules restrict any use of the information to criminally investigate or prosecute any alcohol or drug abuse patient.[facility] HospitalIn the event this information is protected by the Federal Confidentiality of Alcohol and Drug Abuse Patient Records regulations: The Federal rules restrict any use of the information to criminally investigate or prosecute any alcohol or drug abuse patient.[facility] HospitalIn the event this information is protected by the Federal Confidentiality of Alcohol and Drug Abuse Patient Records regulations: The Federal rules restrict any use of the information to criminally investigate or prosecute any alcohol or drug abuse patient.[facility] HospitalIn the event this information is protected by the Federal Confidentiality of Alcohol and Drug Abuse Patient Records regulations: The Federal rules restrict any use of the information to criminally investigate or prosecute any alcohol or drug abuse patient.[facility] HospitalIn the event this information is protected by the Federal Confidentiality of Alcohol and Drug Abuse Patient Records regulations: The Federal rules restrict any use of the information to criminally investigate or prosecute any alcohol or drug abuse patient.[facility] HospitalIn the event this information is protected by the Federal Confidentiality of Alcohol and Drug Abuse Patient Records regulations: The Federal rules restrict any use of the information to criminally investigate or prosecute any alcohol or drug abuse patient.[facility] HospitalIn the event this information is protected by the Federal Confidentiality of Alcohol and Drug Abuse Patient Records regulations: The Federal rules restrict any use of the information to criminally investigate or prosecute any alcohol or drug abuse patient.[facility] HospitalIn the event this information is protected by the Federal Confidentiality of Alcohol and Drug Abuse Patient Records regulations: The Federal rules restrict any use of the information to criminally investigate or prosecute any alcohol or drug abuse patient.[facility] HospitalIn the event this information is protected by the Federal Confidentiality of Alcohol and Drug Abuse Patient Records regulations: The Federal rules restrict any use of the information to criminally investigate or prosecute any alcohol or drug abuse patient.[facility] HospitalIn the event this information is protected by the Federal Confidentiality of Alcohol and Drug Abuse Patient Records regulations: The Federal rules restrict any use of the information to criminally investigate or prosecute any alcohol or drug abuse patient.[facility] HospitalIn the event this information is protected by the Federal Confidentiality of Alcohol and Drug Abuse Patient Records regulations: The Federal rules restrict any use of the information to criminally investigate or prosecute any alcohol or drug abuse patient.[facility] HospitalIn the event this information is protected by the Federal Confidentiality of Alcohol and Drug Abuse Patient Records regulations: The Federal rules restrict any use of the information to criminally investigate or prosecute any alcohol or drug abuse patient.[facility] HospitalIn the event this information is protected by the Federal Confidentiality of Alcohol and Drug Abuse Patient Records regulations: The Federal rules restrict any use of the information to criminally investigate or prosecute any alcohol or drug abuse patient.[facility] [facility] the event this information is protected by the Federal Confidentiality of Alcohol and Drug Abuse Patient Records regulations: The Federal rules restrict any use of the information to criminally investigate or prosecute any alcohol or drug abuse patient.[facility] HospitalIn the event this information is protected by the Federal Confidentiality of Alcohol and Drug Abuse Patient Records regulations: The Federal rules restrict any use of the information to criminally investigate or prosecute any alcohol or drug abuse patient.[facility] HospitalIn the event this information is protected by the Federal Confidentiality of Alcohol and Drug Abuse Patient Records regulations: The Federal rules restrict any use of the information to criminally investigate or prosecute any alcohol or drug abuse patient.[facility] HospitalIn the event this information is protected by the Federal Confidentiality of Alcohol and Drug Abuse Patient Records regulations: The Federal rules restrict any use of the information to criminally investigate or prosecute any alcohol or drug abuse patient.[facility] HospitalIn the event this information is protected by the Federal Confidentiality of Alcohol and Drug Abuse Patient Records regulations: The Federal rules restrict any use of the information to criminally investigate or prosecute any alcohol or drug abuse patient.[facility] HospitalIn the event this information is protected by the Federal Confidentiality of Alcohol and Drug Abuse Patient Records regulations: The Federal rules restrict any use of the information to criminally investigate or prosecute any alcohol or drug abuse patient.[facility] HospitalIn the event this information is protected by the Federal Confidentiality of Alcohol and Drug Abuse Patient Records regulations: The Federal rules restrict any use of the information to criminally investigate or prosecute any alcohol or drug abuse patient.[facility] HospitalIn the event this information is protected by the Federal Confidentiality of Alcohol and Drug Abuse Patient Records regulations: The Federal rules restrict any use of the information to criminally investigate or prosecute any alcohol or drug abuse patient.[facility] HospitalIn the event this information is protected by the Federal Confidentiality of Alcohol and Drug Abuse Patient Records regulations: The Federal rules restrict any use of the information to criminally investigate or prosecute any alcohol or drug abuse patient.[facility] HospitalIn the event this information is protected by the Federal Confidentiality of Alcohol and Drug Abuse Patient Records regulations: The Federal rules restrict any use of the information to criminally investigate or prosecute any alcohol or drug abuse patient.[facility] HospitalIn the event this information is protected by the Federal Confidentiality of Alcohol and Drug Abuse Patient Records regulations: The Federal rules restrict any use of the information to criminally investigate or prosecute any alcohol or drug abuse patient.[facility] HospitalIn the event this information is protected by the Federal Confidentiality of Alcohol and Drug Abuse Patient Records regulations: The Federal rules restrict any use of the information to criminally investigate or prosecute any alcohol or drug abuse patient.[facility] HospitalIn the event this information is protected by the Federal Confidentiality of Alcohol and Drug Abuse Patient Records regulations: The Federal rules restrict any use of the information to criminally investigate or prosecute any alcohol or drug abuse patient.[facility] HospitalIn the event this information is protected by the Federal Confidentiality of Alcohol and Drug Abuse Patient Records regulations: The Federal rules restrict any use of the information to criminally investigate or prosecute any alcohol or drug abuse patient.[facility] HospitalIn the event this information is protected by the Federal Confidentiality of Alcohol and Drug Abuse Patient Records regulations: The Federal rules restrict any use of the information to criminally investigate or prosecute any alcohol or drug abuse patient.[facility] HospitalIn the event this information is protected by the Federal Confidentiality of Alcohol and Drug Abuse Patient Records regulations: The Federal rules restrict any use of the information to criminally investigate or prosecute any alcohol or drug abuse patient.[facility] HospitalIn the event this information is protected by the Federal Confidentiality of Alcohol and Drug Abuse Patient Records regulations: The Federal rules restrict any use of the information to criminally investigate or prosecute any alcohol or drug abuse patient.[facility] HospitalIn the event this information is protected by the Federal Confidentiality of Alcohol and Drug Abuse Patient Records regulations: The Federal rules restrict any use of the information to criminally investigate or prosecute any alcohol or drug abuse patient.[facility] HospitalIn the event this information is protected by the Federal Confidentiality of Alcohol and Drug Abuse Patient Records regulations: The Federal rules restrict any use of the information to criminally investigate or prosecute any alcohol or drug abuse patient.[facility] HospitalIn the event this information is protected by the Federal Confidentiality of Alcohol and Drug Abuse Patient Records regulations: The Federal rules restrict any use of the information to criminally investigate or prosecute any alcohol or drug abuse patient.[facility] HospitalIn the event this information is protected by the Federal Confidentiality of Alcohol and Drug Abuse Patient Records regulations: The Federal rules restrict any use of the information to criminally investigate or prosecute any alcohol or drug abuse patient.[facility] HospitalIn the event this information is protected by the Federal Confidentiality of Alcohol and Drug Abuse Patient Records regulations: The Federal rules restrict any use of the information to criminally investigate or prosecute any alcohol or drug abuse patient.[facility] HospitalIn the event this information is protected by the Federal Confidentiality of Alcohol and Drug Abuse Patient Records regulations: The Federal rules restrict any use of the information to criminally investigate or prosecute any alcohol or drug abuse patient.[facility] HospitalIn the event this information is protected by the Federal Confidentiality of Alcohol and Drug Abuse Patient Records regulations: The Federal rules restrict any use of the information to criminally investigate or prosecute any alcohol or drug abuse patient.[facility] HospitalIn the event this information is protected by the Federal Confidentiality of Alcohol and Drug Abuse Patient Records regulations: The Federal rules restrict any use of the information to criminally investigate or prosecute any alcohol or drug abuse patient.[facility] HospitalIn the event this information is protected by the Federal Confidentiality of Alcohol and Drug Abuse Patient Records regulations: The Federal rules restrict any use of the information to criminally investigate or prosecute any alcohol or drug abuse patient.[facility] HospitalIn the event this information is protected by the Federal Confidentiality of Alcohol and Drug Abuse Patient Records regulations: The Federal rules restrict any use of the information to criminally investigate or prosecute any alcohol or drug abuse patient.[facility] HospitalIn the event this information is protected by the Federal Confidentiality of Alcohol and Drug Abuse Patient Records regulations: The Federal rules restrict any use of the information to criminally investigate or prosecute any alcohol or drug abuse patient.[facility] HospitalIn the event this information is protected by the Federal Confidentiality of Alcohol and Drug Abuse Patient Records regulations: The Federal rules restrict any use of the information to criminally investigate or prosecute any alcohol or drug abuse patient.[facility] HospitalIn the event this information is protected by the Federal Confidentiality of Alcohol and Drug Abuse Patient Records regulations: The Federal rules restrict any use of the information to criminally investigate or prosecute any alcohol or drug abuse patient.[facility] HospitalIn the event this information is protected by the Federal Confidentiality of Alcohol and Drug Abuse Patient Records regulations: The Federal rules restrict any use of the information to criminally investigate or prosecute any alcohol or drug abuse patient.[facility] HospitalIn the event this information is protected by the Federal Confidentiality of Alcohol and Drug Abuse Patient Records regulations: The Federal rules restrict any use of the information to criminally investigate or prosecute any alcohol or drug abuse patient.[facility] HospitalIn the event this information is protected by the Federal Confidentiality of Alcohol and Drug Abuse Patient Records regulations: The Federal rules restrict any use of the information to criminally investigate or prosecute any alcohol or drug abuse patient.[facility] HospitalIn the event this information is protected by the Federal Confidentiality of Alcohol and Drug Abuse Patient Records regulations: The Federal rules restrict any use of the information to criminally investigate or prosecute any alcohol or drug abuse patient.[facility] HospitalIn the event this information is protected by the Federal Confidentiality of Alcohol and Drug Abuse Patient Records regulations: The Federal rules restrict any use of the information to criminally investigate or prosecute any alcohol or drug abuse patient.[facility] HospitalIn the event this information is protected by the Federal Confidentiality of Alcohol and Drug Abuse Patient Records regulations: The Federal rules restrict any use of the information to criminally investigate or prosecute any alcohol or drug abuse patient.[facility] HospitalIn the event this information is protected by the Federal Confidentiality of Alcohol and Drug Abuse Patient Records regulations: The Federal rules restrict any use of the information to criminally investigate or prosecute any alcohol or drug abuse patient.[facility] HospitalIn the event this information is protected by the Federal Confidentiality of Alcohol and Drug Abuse Patient Records regulations: The Federal rules restrict any use of the information to criminally investigate or prosecute any alcohol or drug abuse patient.[facility] HospitalIn the event this information is protected by the Federal Confidentiality of Alcohol and Drug Abuse Patient Records regulations: The Federal rules restrict any use of the information to criminally investigate or prosecute any alcohol or drug abuse patient.[facility] HospitalIn the event this information is protected by the Federal Confidentiality of Alcohol and Drug Abuse Patient Records regulations: The Federal rules restrict any use of the information to criminally investigate or prosecute any alcohol or drug abuse patient.[facility] HospitalIn the event this information is protected by the Federal Confidentiality of Alcohol and Drug Abuse Patient Records regulations: The Federal rules restrict any use of the information to criminally investigate or prosecute any alcohol or drug abuse patient.[facility] HospitalIn the event this information is protected by the Federal Confidentiality of Alcohol and Drug Abuse Patient Records regulations: The Federal rules restrict any use of the information to criminally investigate or prosecute any alcohol or drug abuse patient.[facility] HospitalIn the event this information is protected by the Federal Confidentiality of Alcohol and Drug Abuse Patient Records regulations: The Federal rules restrict any use of the information to criminally investigate or prosecute any alcohol or drug abuse patient.[facility] HospitalIn the event this information is protected by the Federal Confidentiality of Alcohol and Drug Abuse Patient Records regulations: The Federal rules restrict any use of the information to criminally investigate or prosecute any alcohol or drug abuse patient.[facility] HospitalIn the event this information is protected by the Federal Confidentiality of Alcohol and Drug Abuse Patient Records regulations: The Federal rules restrict any use of the information to criminally investigate or prosecute any alcohol or drug abuse patient.[facility] HospitalIn the event this information is protected by the Federal Confidentiality of Alcohol and Drug Abuse Patient Records regulations: The Federal rules restrict any use of the information to criminally investigate or prosecute any alcohol or drug abuse patient.[facility] HospitalIn the event this information is protected by the Federal Confidentiality of Alcohol and Drug Abuse Patient Records regulations: The Federal rules restrict any use of the information to criminally investigate or prosecute any alcohol or drug abuse patient.[facility] HospitalIn the event this information is protected by the Federal Confidentiality of Alcohol and Drug Abuse Patient Records regulations: The Federal rules restrict any use of the information to criminally investigate or prosecute any alcohol or drug abuse patient.[facility] HospitalIn the event this information is protected by the Federal Confidentiality of Alcohol and Drug Abuse Patient Records regulations: The Federal rules restrict any use of the information to criminally investigate or prosecute any alcohol or drug abuse patient.[facility] HospitalIn the event this information is protected by the Federal Confidentiality of Alcohol and Drug Abuse Patient Records regulations: The Federal rules restrict any use of the information to criminally investigate or prosecute any alcohol or drug abuse patient.[facility] the event this information is protected by the Federal Confidentiality of Alcohol and Drug Abuse Patient Records regulations: The Federal rules restrict any use of the information to criminally investigate or prosecute any alcohol or drug abuse patient.[facility] HospitalIn the event this information is protected by the Federal Confidentiality of Alcohol and Drug Abuse Patient Records regulations: The Federal rules restrict any use of the information to criminally investigate or prosecute any alcohol or drug abuse patient.[facility] HospitalIn the event this information is protected by the Federal Confidentiality of Alcohol and Drug Abuse Patient Records regulations: The Federal rules restrict any use of the information to criminally investigate or prosecute any alcohol or drug abuse patient.[facility] HospitalIn the event this information is protected by the Federal Confidentiality of Alcohol and Drug Abuse Patient Records regulations: The Federal rules restrict any use of the information to criminally investigate or prosecute any alcohol or drug abuse patient.[facility] HospitalIn the event this information is protected by the Federal Confidentiality of Alcohol and Drug Abuse Patient Records regulations: The Federal rules restrict any use of the information to criminally investigate or prosecute any alcohol or drug abuse patient.[facility] HospitalIn the event this information is protected by the Federal Confidentiality of Alcohol and Drug Abuse Patient Records regulations: The Federal rules restrict any use of the information to criminally investigate or prosecute any alcohol or drug abuse patient.[facility] HospitalIn the event this information is protected by the Federal Confidentiality of Alcohol and Drug Abuse Patient Records regulations: The Federal rules restrict any use of the information to criminally investigate or prosecute any alcohol or drug abuse patient.[facility] HospitalIn the event this information is protected by the Federal Confidentiality of Alcohol and Drug Abuse Patient Records regulations: The Federal rules restrict any use of the information to criminally investigate or prosecute any alcohol or drug abuse patient.[facility] HospitalIn the event this information is protected by the Federal Confidentiality of Alcohol and Drug Abuse Patient Records regulations: The Federal rules restrict any use of the information to criminally investigate or prosecute any alcohol or drug abuse patient.[facility] HospitalIn the event this information is protected by the Federal Confidentiality of Alcohol and Drug Abuse Patient Records regulations: The Federal rules restrict any use of the information to criminally investigate or prosecute any alcohol or drug abuse patient.[facility] HospitalIn the event this information is protected by the Federal Confidentiality of Alcohol and Drug Abuse Patient Records regulations: The Federal rules restrict any use of the information to criminally investigate or prosecute any alcohol or drug abuse patient.[facility] HospitalIn the event this information is protected by the Federal Confidentiality of Alcohol and Drug Abuse Patient Records regulations: The Federal rules restrict any use of the information to criminally investigate or prosecute any alcohol or drug abuse patient.[facility] HospitalIn the event this information is protected by the Federal Confidentiality of Alcohol and Drug Abuse Patient Records regulations: The Federal rules restrict any use of the information to criminally investigate or prosecute any alcohol or drug abuse patient.[facility] HospitalIn the event this information is protected by the Federal Confidentiality of Alcohol and Drug Abuse Patient Records regulations: The Federal rules restrict any use of the information to criminally investigate or prosecute any alcohol or drug abuse patient.[facility] HospitalIn the event this information is protected by the Federal Confidentiality of Alcohol and Drug Abuse Patient Records regulations: The Federal rules restrict any use of the information to criminally investigate or prosecute any alcohol or drug abuse patient.[facility] HospitalIn the event this information is protected by the Federal Confidentiality of Alcohol and Drug Abuse Patient Records regulations: The Federal rules restrict any use of the information to criminally investigate or prosecute any alcohol or drug abuse patient.[facility] HospitalIn the event this information is protected by the Federal Confidentiality of Alcohol and Drug Abuse Patient Records regulations: The Federal rules restrict any use of the information to criminally investigate or prosecute any alcohol or drug abuse patient.[facility] HospitalIn the event this information is protected by the Federal Confidentiality of Alcohol and Drug Abuse Patient Records regulations: The Federal rules restrict any use of the information to criminally investigate or prosecute any alcohol or drug abuse patient.[facility] HospitalIn the event this information is protected by the Federal Confidentiality of Alcohol and Drug Abuse Patient Records regulations: The Federal rules restrict any use of the information to criminally investigate or prosecute any alcohol or drug abuse patient.[facility] HospitalIn the event this information is protected by the Federal Confidentiality of Alcohol and Drug Abuse Patient Records regulations: The Federal rules restrict any use of the information to criminally investigate or prosecute any alcohol or drug abuse patient.[facility] HospitalIn the event this information is protected by the Federal Confidentiality of Alcohol and Drug Abuse Patient Records regulations: The Federal rules restrict any use of the information to criminally investigate or prosecute any alcohol or drug abuse patient.[facility] HospitalIn the event this information is protected by the Federal Confidentiality of Alcohol and Drug Abuse Patient Records regulations: The Federal rules restrict any use of the information to criminally investigate or prosecute any alcohol or drug abuse patient.[facility] Care Teams (unrecognized sec tion and content) Laboratory Assistant Relationship Specialty Start Date End Date Milka Mas MD [address] [place] [address] PCP - General Family Practice 03/09/12 Vincent, Chatham S [address] [place] [address] Physician Cardiology 06/25/18 Laboratory Assistant Relationship Specialty Start Date End Date Milka Mas MD [address] [place] [address] PCP - General Family Practice 03/09/12 Vincent, Chatham S [address] [place] [address] Physician Cardiology 06/25/18 Laboratory Assistant Relationship Specialty Start Date End Date Milka Mas MD [address] [place] [address] PCP - General Family Practice 03/09/12 Vincent, Lalito S [address] [place] [address] Physician Cardiology 06/25/18 Laboratory Assistant Relationship Specialty Start Date End Date Milka Mas MD [address] [place] [address] PCP - General Family Practice 03/09/12 Vincent, Chatham S [address] [place] [address] Physician Cardiology 06/25/18 Laboratory Assistant Relationship Specialty Start Date End Date Milka Mas MD [address] [place] [address] PCP - General Family Practice 03/09/12 Vincent, Lalito S [address] [place] [address] Physician Cardiology 06/25/18 Laboratory Assistant Relationship Specialty Start Date End Date Milka Mas MD [address] [place] [address] PCP - General Family Practice 03/09/12 Vincent, Chatham S [address] [place] [address] Physician Cardiology 06/25/18 Laboratory Assistant Relationship Specialty Start Date End Date Milka Mas MD [address] [place] [address] PCP - General Family Practice 03/09/12 Vincent, Chatham S [address] [place] [address] Physician Cardiology 06/25/18 Laboratory Assistant Relationship Specialty Start Date End Date Milka Mas MD [address] [place] [address] PCP - General Family Practice 03/09/12 Vincent, Lalito S [address] [place] [address] Physician Cardiology 06/25/18 Laboratory Assistant Relationship Specialty Start Date End Date Milka Mas MD [address] [place] [address] PCP - General Family Practice 03/09/12 Vincent, Lalito S [address] [place] [address] Physician Cardiology 06/25/18 Laboratory Assistant Relationship Specialty Start Date End Date Milka Mas MD [address] [place] [address] PCP - General Family Practice 03/09/12 Vincent, Lalito S [address] [place] [address] Physician Cardiology 06/25/18 Laboratory Assistant Relationship Specialty Start Date End Date Milka Mas MD [address] [place] [address] PCP - General Family Practice 03/09/12 Vincent, Lalito S [address] [place] [address] Physician Cardiology 06/25/18 Laboratory Assistant Relationship Specialty Start Date End Date Milka Mas MD [address] [place] [address] PCP - General Family Practice 03/09/12 Vincent, Chatham S [address] [place] [address] Physician Cardiology 06/25/18 Laboratory Assistant Relationship Specialty Start Date End Date Milka Mas MD [address] [place] [address] PCP - General Family Practice 03/09/12 Vincent, Chatham S [address] [place] [address] Physician Cardiology 06/25/18 Laboratory Assistant Relationship Specialty Start Date End Date Milka Mas MD [address] [place] [address] PCP - General Family Practice 03/09/12 Vincent, Lalito S [address] [place] [address] Physician Cardiology 06/25/18 Laboratory Assistant Relationship Specialty Start Date End Date Milka Mas MD [address] [place] [address] PCP - General Family Practice 03/09/12 Vincent, Lalito S [address] [place] [address] Physician Cardiology 06/25/18 Laboratory Assistant Relationship Specialty Start Date End Date Milka Mas MD [address] [place] [address] PCP - General Family Practice 03/09/12 Vincent, Chatham S [address] [place] [address] Physician Cardiology 06/25/18 Laboratory Assistant Relationship Specialty Start Date End Date Milka Mas MD [address] [facility] [place] [address] PCP - General Family Practice 03/09/12 Vincent, Lalito S [address] [place] [address] Physician Cardiology 06/25/18 Laboratory Assistant Relationship Specialty Start Date End Date Milka Mas MD [address] [place] [address] PCP - General Family Practice 03/09/12 Vincent, Chatham S [address] [place] [address] Physician Cardiology 06/25/18 Laboratory Assistant Relationship Specialty Start Date End Date Milka Mas MD [address] [place] [address] PCP - General Family Practice 03/09/12 Vincent, Lalito S [address] [place] [address] Physician Cardiology 06/25/18 Laboratory Assistant Relationship Specialty Start Date End Date Milka Mas MD [address] [place] [address] PCP - General Family Practice 03/09/12 Vincent, Lalito S [address] [place] [address] Physician Cardiology 06/25/18 Laboratory Assistant Relationship Specialty Start Date End Date Milka Mas MD [address] [place] [address] PCP - General Family Practice 03/09/12 Vincent, Chatham S [address] [place] [address] Physician Cardiology 06/25/18 Laboratory Assistant Relationship Specialty Start Date End Date Milka Mas MD [address] [place] [address] PCP - General Family Practice 03/09/12 Vincent, Lalito S [address] [place] [address] Physician Cardiology 06/25/18 Laboratory Assistant Relationship Specialty Start Date End Date Milka Mas MD [address] [place] [address] PCP - General Family Practice 03/09/12 Vincent, Lalito S [address] [place] [address] Physician Cardiology 06/25/18 Laboratory Assistant Relationship Specialty Start Date End Date Milka Mas MD [address] [place] [address] PCP - General Family Practice 03/09/12 Vincent, Chatham S [address] [place] [address] Physician Cardiology 06/25/18 Laboratory Assistant Relationship Specialty Start Date End Date Milka Mas MD [address] [place] [address] PCP - General Family Practice 03/09/12 Vincent, Chatham S [address] [place] [address] Physician Cardiology 06/25/18 Laboratory Assistant Relationship Specialty Start Date End Date Milka Mas MD [address] [place] [address] PCP - General Family Practice 03/09/12 Vincent, Chatham S [address] [place] [address] Physician Cardiology 06/25/18 Laboratory Assistant Relationship Specialty Start Date End Date Milka Mas MD [address] [place] [address] PCP - General Family Medicine 03/09/12 Vincent, Lalito S [address] [place] [address] Physician Cardiology 06/25/18 Laboratory Assistant Relationship Specialty Start Date End Date Milka Mas MD [address] [facility] [place] [address] PCP - General Family Medicine 03/09/12 Vincent, Chatham S [address] [place] [address] Physician Cardiology 06/25/18 Laboratory Assistant Relationship Specialty Start Date End Date Milka Mas MD [address] [place] [address] PCP - General Family Medicine 03/09/12 Vincent, Lalito S [address] [place] [address] Physician Cardiology 06/25/18 Laboratory Assistant Relationship Specialty Start Date End Date Milka Mas MD [address] [place] [address] PCP - General Family Medicine 03/09/12 Vincent, Lalito S [address] [place] [address] Physician Cardiology 06/25/18 Laboratory Assistant Relationship Specialty Start Date End Date Milka Mas MD [address] [place] [address] PCP - General Family Medicine 03/09/12 Vincent, Lalito S [address] [place] [address] Physician Cardiology 06/25/18 Laboratory Assistant Relationship Specialty Start Date End Date Milka Mas MD [address] [place] [address] PCP - General Family Medicine 03/09/12 Vincent, Chatham S [address] [place] [address] Physician Cardiology 06/25/18 Laboratory Assistant Relationship Specialty Start Date End Date Milka Mas MD [address] [place] [address] PCP - General Family Medicine 03/09/12 Vincent, Lalito S [address] [place] [address] Physician Cardiology 06/25/18 Laboratory Assistant Relationship Specialty Start Date End Date Milka Mas MD [address] [place] [address] PCP - General Family Medicine 03/09/12 Vincent, Chatham S [address] [place] [address] Physician Cardiology 06/25/18 Laboratory Assistant Relationship Specialty Start Date End Date Milka Mas MD [address] [place] [address] PCP - General Family Medicine 03/09/12 Vincent, Lalito S [address] [place] [address] Physician Cardiology 06/25/18 Laboratory Assistant Relationship Specialty Start Date End Date Milka Mas MD [address] [place] [address] PCP - General Family Medicine 03/09/12 Vincent, Chatham S [address] [facility] [address] [place] [address] Physician Cardiology 06/25/18 Laboratory Assistant Relationship Specialty Start Date End Date Milka Mas MD [address] [place] [address] PCP - General Family Medicine 03/09/12 Vincent, Chatham S [address] [facility] [address] [place] [address] Physician Cardiology 06/25/18 Laboratory Assistant Relationship Specialty Start Date End Date Milka Mas MD [address] [place] [address] PCP - General Family Medicine 03/09/12 Vincent, Chatham S [address] [facility] [address] [place] [address] Physician Cardiology 06/25/18 Laboratory Assistant Relationship Specialty Start Date End Date Milka Mas MD [address] [place] [address] PCP - General Family Medicine 03/09/12 Vincent, Lalito S [address] [place] [address] Physician Cardiology 06/25/18 Laboratory Assistant Relationship Specialty Start Date End Date Milka Mas MD [address] [place] [address] PCP - General Family Medicine 03/09/12 Vincent, Chatham S [address] [place] [address] Physician Cardiology 06/25/18 Laboratory Assistant Relationship Specialty Start Date End Date Milka Mas MD [address] [place] [address] PCP - General Family Medicine 03/09/12 Vincent, Chatham S [address] [place] [address] Physician Cardiology 06/25/18 Team Status: Active Member Role Status Dates Dr. Milka Mas MD Family Provider Active Dr. Milka Mas MD Primary Care Provider Active Team Status: Active Member Role Status Dates Dr. Milka Mas MD Primary Care Provider Active Anna Murphy CEMENT TRUCK LOADER, CEMENT TRUCK LOADER-C Attending Provider, Other Pro vider Active Team Status: Inactive Member Role Status Dates Dr. iMlka Mas MD Primary Care Provider Active Anna Murphy CEMENT TRUCK LOADER, CEMENT TRUCK LOADER-C Attending Provider Active Team Status: Active Member Role Status Dates Dr. Milka Mas MD Primary Care Provider Active Dr. Lisette Banks , Attending Provider, Ref erring Provider Active Team Status: Inactive Member Role Status Dates Dr. Milka Mas MD Primary Care Provider Active Dr. Lisette Banks , Attending Provider, Ref erring Provider Active Team Status: Active Member Role Status Dates Dr. Milka Mas MD Primary Care Provider Active Anna Murphy CEMENT TRUCK LOADER, CEMENT TRUCK LOADER-C Attending Provider Active Laboratory Assistant Relationship Specialty Start Date End Date Milka Mas MD [address] [place] [address] PCP - General Family Medicine 03/09/12 Vincent, Lalito S [address] [place] [address] Physician Cardiology 06/25/18 Laboratory Assistant Relationship Specialty Start Date End Date Milka Mas MD [address] [place] [address] PCP - General Family Medicine 03/09/12 Vincent, Lalito S [address] [place] [address] Physician Cardiology 06/25/18 13, Pharmacist [address] [place] [place] [address] Pharmacist Pharmacy 08/22/22 Laboratory Assistant Relationship Specialty Start Date End Date Milka Mas MD [address] [place] [address] PCP - General Family Medicine 03/09/12 Vincent, Lalito S [address] [place] [address] Physician Cardiology 06/25/18 13, Pharmacist [address] [place] [address] Pharmacist Pharmacy 08/22/22 Laboratory Assistant Relationship Specialty Start Date End Date Milka Mas MD [address] [place] [address] PCP - General Family Medicine 03/09/12 Vincent, Chatham S [address] [place] [address] Physician Cardiology 06/25/18 13, Pharmacist [address] [place] [address] Pharmacist Pharmacy 08/22/22 Laboratory Assistant Relationship Specialty Start Date End Date Milka Mas MD [address] [place] [address] PCP - General Family Medicine 03/09/12 Vincent, Chatham S [address] [place] [address] Physician Cardiology 06/25/18 13, Pharmacist [address] [place] [address] Pharmacist Pharmacy 08/22/22 Laboratory Assistant Relationship Specialty Start Date End Date Milka Mas MD [address] [place] [address] PCP - General Family Medicine 03/09/12 Vincent, Chatham S [address] [place] [address] Physician Cardiology 06/25/18 13, Pharmacist [address] [place] [address] Pharmacist Pharmacy 08/22/22 Laboratory Assistant Relationship Specialty Start Date End Date Milka Mas MD [address] [place] [address] PCP - General Family Medicine 03/09/12 Vincent, Chatham S [address] [place] [address] Physician Cardiology 06/25/18 13, Pharmacist [address] [place] [address] Pharmacist Pharmacy 08/22/22 Laboratory Assistant Relationship Specialty Start Date End Date Milka Mas MD [address] [place] [address] PCP - General Family Medicine 03/09/12 Vincent, Chatham S [address] [facility] [address] [place] [address] Physician Cardiology 06/25/18 13, Pharmacist [address] [place] [address] Pharmacist Pharmacy 08/22/22 Laboratory Assistant Relationship Specialty Start Date End Date Milka Mas MD [address] [place] [address] PCP - General Family Medicine 03/09/12 Vincent, Lalito S [address] [place] [address] Physician Cardiology 06/25/18 13, Pharmacist [address] [place] [address] Pharmacist Pharmacy 08/22/22 Laboratory Assistant Relationship Specialty Start Date End Date Milka Mas MD [address] [place] [address] PCP - General Family Medicine 03/09/12 Vincent, Chatham S [address] [place] [address] Physician Cardiology 06/25/18 13, Pharmacist [address] [place] [address] Pharmacist Pharmacy 08/22/22 Laboratory Assistant Relationship Specialty Start Date End Date Milka Mas MD [address] [place] [address] PCP - General Family Medicine 03/09/12 Vincent, Chatham S [address] [place] [address] Physician Cardiology 06/25/18 13, Pharmacist [address] [place] [address] Pharmacist Pharmacy 08/22/22 Laboratory Assistant Relationship Specialty Start Date End Date Milka Mas MD [address] [place] [address] PCP - General Family Medicine 03/09/12 Vincent, Chatham S [address] [facility] [address] [place] [address] Physician Cardiology 06/25/18 13, Pharmacist [address] [place] [address] Pharmacist Pharmacy 08/22/22 Laboratory Assistant Relationship Specialty Start Date End Date Milka Mas MD [address] [place] [address] PCP - General Family Medicine 03/09/12 Vincent, Lalito S [address] [place] [address] Physician Cardiology 06/25/18 13, Pharmacist [address] [place] [address] Pharmacist Pharmacy 08/22/22 Laboratory Assistant Relationship Specialty Start Date End Date Milka Mas MD [address] [place] [address] PCP - General Family Medicine 03/09/12 Vincent, Lalito S [address] [place] [address] Physician Cardiology 06/25/18 13, Pharmacist [address] [facility] [place] [address] Pharmacist Pharmacy 08/22/22 Laboratory Assistant Relationship Specialty Start Date End Date Milka Mas MD [address] [place] [address] PCP - General Family Medicine 03/09/12 Vincent, Lalito S [address] [address] Physician Cardiology 06/25/18 13, Pharmacist [address] [place] [address] Pharmacist Pharmacy 08/22/22 Laboratory Assistant Relationship Specialty Start Date End Date Milka Mas MD [address] [place] [address] PCP - General Family Medicine 03/09/12 Vincent, Chatham S [address] [address] Physician Cardiology 06/25/18 13, Pharmacist [address] [facility] [place] [address] Pharmacist Pharmacy 08/22/22 Laboratory Assistant Relationship Specialty Start Date End Date Milka Mas MD [address] [place] [address] PCP - General Family Medicine 03/09/12 Vincent, [facility] S [address] [facility] [address] [address] Physician Cardiology 06/25/18 13, Pharmacist [address] [place] [address] Pharmacist Pharmacy 08/22/22 Laboratory Assistant Relationship Specialty Start Date End Date Milka Mas MD [address] [place] [address] PCP - General Family Medicine 03/09/12 Vincent, Lalito S [address] [place] [address] Physician Cardiology 06/25/18 13, Pharmacist [address] [place] [address] Pharmacist Pharmacy 08/22/22 Laboratory Assistant Relationship Specialty Start Date End Date Milka Mas MD [address] [place] [address] PCP - General Family Medicine 03/09/12 Vincent, Lalito S [address] [place] [address] Physician Cardiology 06/25/18 13, Pharmacist [address] [place] [address] Pharmacist Pharmacy 08/22/22 Laboratory Assistant Relationship Specialty Start Date End Date Milka Mas MD [address] [place] [address] PCP - General Family Medicine 03/09/12 Vincent, Chatham S [address] [place] [address] Physician Cardiology 06/25/18 13, Pharmacist [address] [place] [address] Pharmacist Pharmacy 08/22/22 Laboratory Assistant Relationship Specialty Start Date End Date Milka Mas MD [address] [place] [address] PCP - General Family Medicine 03/09/12 Vincent, Lalito S [address] [place] [address] Physician Cardiology 06/25/18 13, Pharmacist [address] [place] [address] Pharmacist Pharmacy 08/22/22 Laboratory Assistant Relationship Specialty Start Date End Date Milka Mas MD [address] [place] [address] PCP - General Family Medicine 03/09/12 Lalito Kaur [address] [place] [address] Physician Cardiology 06/25/18 13, Pharmacist [address] [place] [address] Pharmacist Pharmacy 08/22/22 Laboratory Assistant Relationship Specialty Start Date End Date Milka Mas MD [address] [place] [address] PCP - General Family Medicine 03/09/12 Lalito Kaur [address] [place] [address] Physician Cardiology 06/25/18 13, Pharmacist [address] [place] [address] Pharmacist Pharmacy 08/22/22 Laboratory Assistant Relationship Specialty Start Date End Date Milka Mas MD [address] [place] [address] PCP - General Family Medicine 03/09/12 Lalito Kaur MD [address] [place] [address] Physician Cardiology 06/25/18 13, Pharmacist [address] [place] [address] Pharmacist Pharmacy 08/22/22 Laboratory Assistant Relationship Specialty Start Date End Date Milka Mas MD [address] [place] [address] PCP - General Family Medicine 03/09/12 Lalito Kaur MD [address] [place] [address] Physician Cardiology 06/25/18 13, Pharmacist [address] [place] [address] Pharmacist Pharmacy 08/22/22 Laboratory Assistant Relationship Specialty Start Date End Date Milka Mas MD [address] [place] [address] PCP - General Family Medicine 03/09/12 Lalito Kaur MD [address] [place] [address] Physician Cardiology 06/25/18 13, Pharmacist [address] [place] [address] Pharmacist Pharmacy 08/22/22 Laboratory Assistant Relationship Specialty Start Date End Date Milka Mas MD [address] [place] [address] PCP - General Family Medicine 03/09/12 Lalito Kaur MD [address] [place] [address] Physician Cardiology 06/25/18 13, Pharmacist [address] [place] [address] Pharmacist Pharmacy 08/22/22 Laboratory Assistant Relationship Specialty Start Date End Date Milka Mas MD [address] [place] [address] PCP - General Family Medicine 03/09/12 Lalito Kaur MD [address] [address] Physician Cardiology 06/25/18 13, Pharmacist [address] [place] [address] Pharmacist Pharmacy 08/22/22 Laboratory Assistant Relationship Specialty Start Date End Date Milka Mas MD [address] [place] [address] PCP - General Family Medicine 03/09/12 Lalito Kaur MD [address] [address] Physician Cardiology 06/25/18 13, Pharmacist [address] [place] [address] Pharmacist Pharmacy 08/22/22 Laboratory Assistant Relationship Specialty Start Date End Date Milka Mas MD [address] [place] [address] PCP - General Family Medicine 03/09/12 Lalito [facility]aur MD [address] [facility] [address] [address] Physician Cardiology 06/25/18 13, Pharmacist [address] [place] [address] Pharmacist Pharmacy 08/22/22 Laboratory Assistant Relationship Specialty Start Date End Date Milka Mas MD [address] [place] [address] PCP - General Family Medicine 03/09/12 Lalito Kaur MD [address] [place] [address] Physician Cardiology 06/25/18 13, Pharmacist [address] [place] [address] Pharmacist Pharmacy 08/22/22 Laboratory Assistant Relationship Specialty Start Date End Date Milka Mas MD [address] [place] [address] PCP - General Family Medicine 03/09/12 Lalito Kaur MD [address] [place] [address] Physician Cardiology 06/25/18 13, Pharmacist [address] [place] [address] Pharmacist Pharmacy 08/22/22 Laboratory Assistant Relationship Specialty Start Date End Date Milka Mas MD [address] [place] [address] PCP - General Family Medicine 03/09/12 Lalito Kaur MD [address] [place] [address] Physician Cardiology 06/25/18 13, Pharmacist [address] [place] [address] Pharmacist Pharmacy 08/22/22 Laboratory Assistant Relationship Specialty Start Date End Date Milka Mas MD [address] [place] [address] PCP - General Family Medicine 03/09/12 Lalito Kaur MD [address] [facility] [address] [place] [address] Physician Cardiology 06/25/18 13, Pharmacist [address] [place] [address] Pharmacist Pharmacy 08/22/22 Laboratory Assistant Relationship Specialty Start Date End Date Milka Mas MD [address] [place] [address] PCP - General Family Medicine 03/09/12 Lalito Kaur MD [address] [facility] [address] [place] [address] Physician Cardiology 06/25/18 13, Pharmacist [address] [place] [address] Pharmacist Pharmacy 08/22/22 Laboratory Assistant Relationship Specialty Start Date End Date Milka Mas MD [address] [place] [address] PCP - General Family Medicine 03/09/12 Lalito Kaur MD [address] [place] [address] Physician Cardiology 06/25/18 13, Pharmacist [address] [place] [address] Pharmacist Pharmacy 08/22/22 Laboratory Assistant Relationship Specialty Start Date End Date Milka Mas MD [address] [place] [address] PCP - General Family Medicine 03/09/12 Lalito Kaur MD [address] [facility] [address] [place] [address] Physician Cardiology 06/25/18 13, Pharmacist [address] [place] [address] Pharmacist Pharmacy 08/22/22 Laboratory Assistant Relationship Specialty Start Date End Date Milka Mas MD [address] [place] [address] PCP - General Family Medicine 03/09/12 Lalito Kaur MD [address] [place] [address] Physician Cardiology 06/25/18 13, Pharmacist [address] [place] [address] Pharmacist Pharmacy 08/22/22 Laboratory Assistant Relationship Specialty Start Date End Date Milka Msa MD [address] [place] [address] PCP - General Family Medicine 03/09/12 Lalito Kaur MD [address] [place] [address] Physician Cardiology 06/25/18, Pharmacist [address] [place] [address] Pharmacist Pharmacy 08/22/22 Team Status: Inactive Member Role Status Dates Dr. Milka Mas MD Primary Care Provider Active Dr. Suraj Hooks MD Attending Provider, Porter figueredo Active Laboratory Assistant Relationship Specialty Start Date End Date Milka Mas MD [address] [place] [address] PCP - General Family Medicine 03/09/12 Lalito Kaur MD [address] [place] [address] Physician Cardiology 06/25/18 13, Pharmacist [address] [place] [address] Pharmacist Pharmacy 08/22/22 Laboratory Assistant Relationship Specialty Start Date End Date Milka Mas MD [address] [place] [address] PCP - General Family Medicine 03/09/12 Lalito Kaur MD [address] [place] [address] Physician Cardiology 06/25/18 13, Pharmacist [address] [place] [address] Pharmacist Pharmacy 08/22/22 Laboratory Assistant Relationship Specialty Start Date End Date Milka Mas MD [address] [place] [address] PCP - General Family Medicine 03/09/12 Lalito Kaur MD [address] [place] [address] Physician Cardiology 06/25/18 13, Pharmacist [address] [place] [address] Pharmacist Pharmacy 08/22/22 Laboratory Assistant Relationship Specialty Start Date End Date Milka Mas MD [address] [place] [address] PCP - General Family Medicine 03/09/12 Lalito Kaur MD [address] [place] [address] Physician Cardiology 06/25/18 13, Pharmacist [address] [place] [address] Pharmacist Pharmacy 08/22/22 Laboratory Assistant Relationship Specialty Start Date End Date Milka Mas MD [address] [place] [address] PCP - General Family Medicine 03/09/12 Lalito Kaur MD [address] [facility] [address] [place] [address] Physician Cardiology 06/25/18 13, Pharmacist [address] [place] [address] Pharmacist Pharmacy 08/22/22 Laboratory Assistant Relationship Specialty Start Date End Date Milka Mas MD [address] [place] [address] PCP - General Family Medicine 03/09/12 Lalito Kaur MD [address] [place] [address] Physician Cardiology 06/25/18 13, Pharmacist [address] [place] [address] Pharmacist Pharmacy 08/22/22 Laboratory Assistant Relationship Specialty Start Date End Date Milka Mas MD [address] [place] [address] PCP - General Family Medicine 03/09/12 Lalito Kaur MD [address] [facility] [address] [place] [address] Physician Cardiology 06/25/18 13, Pharmacist [address] [place] [address] Pharmacist Pharmacy 08/22/22 Laboratory Assistant Relationship Specialty Start Date End Date Milka Mas MD [address] [place] [address] PCP - General Family Medicine 03/09/12 Lalito Kaur MD [address] [place] [address] Physician Cardiology 06/25/18 13, Pharmacist [address] [place] [address] Pharmacist Pharmacy 08/22/22 Laboratory Assistant Relationship Specialty Start Date End Date Milka Mas MD [address] [place] [address] PCP - General Family Medicine 03/09/12 Lalito Kaur MD [address] [place] [address] Physician Cardiology 06/25/18 13, Pharmacist [address] [place] [address] Pharmacist Pharmacy 08/22/22 Laboratory Assistant Relationship Specialty Start Date End Date Milka Mas MD [address] [place] [address] PCP - General Family Medicine 03/09/12 Lalito Kaur MD [address] [place] [address] Physician Cardiology 06/25/18 Laboratory Assistant Relationship Specialty Start Date End Date Milka Mas MD [address] [place] [address] PCP - General Family Medicine 03/09/12 Lalito Kaur MD [address] [facility] [address] [place] [address] Physician Cardiology 06/25/18 Laboratory Assistant Relationship Specialty Start Date End Date Milka Mas MD [address] [place] [address] PCP - General Family Medicine 03/09/12 Lalito Kaur MD [address] [place] [address] Physician Cardiology 06/25/18 13, Pharmacist [address] [place] [address] Pharmacist Pharmacy 08/22/22 Laboratory Assistant Relationship Specialty Start Date End Date Mlika Mas MD [address] [place] [address] PCP - General Family Medicine 03/09/12 Lalito Kaur MD [address] [facility] [address] [place] [address] Physician Cardiology 06/25/18 13, Pharmacist [phone] [facility] [place] [address] Pharmacist Pharmacy 08/22/22 Laboratory Assistant Relationship Specialty Start Date End Date Milka Mas MD [address] [place] [address] PCP - General Family Medicine 03/09/12 Lalito Kaur MD [address] [place] [address] Physician Cardiology 06/25/18 13, Pharmacist [phone] [place] [address] Pharmacist Pharmacy 08/22/22 Laboratory Assistant Relationship Specialty Start Date End Date Milka Mas MD [address] [place] [address] PCP - General Family Medicine 03/09/12 Lalito Kaur MD [address] [address] Physician Cardiology 06/25/18 13, Pharmacist [address] [place] [address] Pharmacist Pharmacy 08/22/22 Laboratory Assistant Relationship Specialty Start Date End Date Milka Mas MD [address] [place] [address] PCP - General Family Medicine 03/09/12 Lalito Kaur MD [address] [address] Physician Cardiology 06/25/18 13, Pharmacist [address] [place] [address] Pharmacist Pharmacy 08/22/22 Laboratory Assistant Relationship Specialty Start Date End Date Milka Mas MD [address] [place] [address] PCP - General Family Medicine 03/09/12 Lalito Kaur MD [address] [address] Physician Cardiology 06/25/18 13, Pharmacist [address] [place] [address] Pharmacist Pharmacy 08/22/22 Joaquina Gregory APRN.REFINERY [facility]PERATOR [facility] [address] [place] [address] Assistant Family Teacher Family Medicine 04/07/24 Laboratory Assistant Relationship Specialty Start Date End Date Milka Mas MD [address] [place] [address] PCP - General Family Medicine 03/09/12 Lalito Kaur MD [address]61 [facility] [address] [place] [address] Physician Cardiology 06/25/18 13, Pharmacist [address] [place] [address] Pharmacist Pharmacy 08/22/22 Joaquina Gregory, TOURIST CABIN KEEPER.REFINERY OPERATOR [facility] [address] [place] [address] Assistant Family Teacher Family Medicine 04/07/24 Laboratory Assistant Relationship Specialty Start Date End Date Milka Mas MD [address] [place] [address] PCP - General Family Medicine 03/09/12 Lalito Kaur MD [address] [place] [address] Physician Cardiology 06/25/18 13, Pharmacist [address] [place] [address] Pharmacist Pharmacy 08/22/22 Joaquina Gregory, TOURIST CABIN KEEPER.REFINERY OPERATOR [facility] [address] [place] [address] Assistant Family Teacher Family Medicine 04/07/24 Laboratory Assistant Relationship Specialty Start Date End Date Milka Mas MD [address] [place] [address] PCP - General Family Medicine 03/09/12 Lalito Kaur MD [address] [address] Physician Cardiology 06/25/18 13, Pharmacist [address] [place] [address] Pharmacist Pharmacy 08/22/22 Joaquina Gregory APRN.REFINERY OPERATOR [facility] [address] [place] [address] Assistant Family Teacher Family Medicine 04/07/24 Byron Jolley APRN.REFINERY OPERATOR [facility] [address] [place] [address] Assistant Family Teacher Family Medicine 04/16/24 Laboratory Assistant Relationship Specialty Start Date End Date Milka Mas MD [address] [place] [address] PCP - General Family Medicine 03/09/12 Lalito Kaur MD [address] [address] Physician Cardiology 06/25/18 13, Pharmacist [address] [place] [address] Pharmacist Pharmacy 08/22/22 Joaquina Gregory APRN.REFINERY OPERATOR [facility] [address] [place] [address] Assistant Family Teacher Family Medicine 04/07/24 Byron Jolley APRN.REFINERY [facility]ATOR [facility] [address] [place] [address] Assistant Family Teacher Family Medicine 04/16/24 Laboratory Assistant Relationship Specialty Start Date End Date Milka Mas MD [address] [place] [address] PCP - General Family Medicine 03/09/12 Lalito Kaur MD [address] [address] Physician Cardiology 06/25/18 13, Pharmacist [address] [place] [address] Pharmacist Pharmacy 08/22/22 Joaquina Gregory APRN.REFINERY OPERATOR [facility] [address] [place] [address] Assistant Family Teacher [facility] 04/07/24 Byron Jolley APRN.REFINERY OPERATOR [facility] [address] [place] [address] [facility] 04/16/24 Laboratory Assistant Relationship Specialty Start Date End Date Milka Mas MD [address] [place] [address] PCP - General Family Medicine 03/09/12 Lalito Kaur MD [address] [address] Physician Cardiology 06/25/18 13, Pharmacist [address] [place] [address] Pharmacist Pharmacy 08/22/22 Joaquina Gregory APRN.REFINERY O[facility]ATOR [facility] [address] [place] [address] [facility] 04/07/24 Byron Jolley APRN.REFINERY OPERATOR [facility] [address] [place] [address] Assistant Family Teacher [facility] 04/16/24 Laboratory Assistant Relationship Specialty Start Date End Date Milka Mas MD [address] [place] [address] PCP - General Family Medicine 03/09/12 Lalito Kaur MD [address] [address] Physician Cardiology 06/25/18 13, Pharmacist [address] [place] [address] Pharmacist Pharmacy 08/22/22 Joaquina Gregory APRN.REFINERY O[facility]ATOR [facility] [address] [place] [address] Assistant Family Teacher [facility] 04/07/24 Byorn Jolley APRN.REFINERY [facility]ATOR [facility] [address] [place] [address] [facility] 04/16/24 Laboratory Assistant Relationship Specialty Start Date End Date Milka Mas MD [address] [place] [address] PCP - General Family Medicine 03/09/12 [facility] MD [facility] [facility] [address] [address] Physician Cardiology 06/25/18 13, Pharmacist [address] [place] [address] Pharmacist Pharmacy 08/22/22 Joaquina Gregory, KARTIK.REFINERY OPERATOR [facility] [address] [place] [address] Assistant Family Teacher Family Medicine 04/07/24 Byron Jolley APRN.REFINERY [facility]ATOR [facility] [address] [place] [address] Assistant Family Teacher Family [facility] 04/16/24 Laboratory Assistant Relationship Specialty Start Date End Date Milka Mas MD [address] [place] [address] PCP - General Family Medicine 03/09/12 Lalito [facility]aur MD [address] [facility] [address] [place] [address] Physician Cardiology 06/25/18 13, Pharmacist [address] [place] [address] Pharmacist Pharmacy 08/22/22 Joaquina Gregroy APRN.REFINERY OPERATOR [facility] [address] [place] [address] Assistant Family Teacher [facility] 04/07/24 Byron Jolley APRN.REFINERY OPERATOR [facility] [address] [place] [address] Assistant Family Teacher [facility] 04/16/24 Laboratory Assistant Relationship Specialty Start Date End Date Milka Mas MD [address] [place] [address] PCP - General Family Medicine 03/09/12 Lalito Kaur MD [address] [place] [address] Physician Cardiology 06/25/18 13, Pharmacist [phone] [place] [address] Pharmacist Pharmacy 08/22/22 Joaquina Gregory, TOURIST CABIN KEEPER.REFINERY OPERATOR [facility] [address] [place] [address] Assistant Family Teacher [facility] 04/07/24 Byron Jolley APRN.REFINERY OPERATOR [facility] [address] [place] [address] Assistant Family Teacher [facility] 04/16/24 Laboratory Assistant Relationship Specialty Start Date End Date Milka Mas MD [address] [place] [address] PCP - General Family Medicine 03/09/12 [place] [address] [place] [address], [place] [address] Physician Cardiology 06/25/18 13, Pharmacist [address] [place] [address] Pharmacist Pharmacy 08/22/22 Joaquina Gregory APRN.REFINERY O[facility]ATOR [facility] [address] [place] [address] [facility] 04/07/24 Byron Jolley APRN.REFINERY OPERATOR [facility] [address] [place] [address] Assistant [facility] 04/16/24 Laboratory Assistant Relationship Specialty Start Date End Date Milka Mas MD [address] [place] [address] PCP - General Family Medicine 03/09/12 Lalito Kaur MD [address]61 [facility] [address] [place] [address] Physician Cardiology 06/25/18 13, Pharmacist [address] [place] [address] Pharmacist Pharmacy 08/22/22 Joaquina Gregory APRN.REFINERY OPERATOR [facility] [address] [place] [address] Assistant Family Teacher Family Medicine 04/07/24 Byron Jolley APRN.REFINERY [facility]ATOR [facility] [address] [place] [address] Assistant Family Teacher Family Medicine 04/16/24 Laboratory Assistant Relationship Specialty Start Date End Date Milka Mas MD [address] [place] [address] PCP - General Family Medicine 03/09/12 Lalito Kaur MD [address] [place] [address] Physician Cardiology 06/25/18 13, Pharmacist [address] [place] [address] Pharmacist Pharmacy 08/22/22 Joaquina Gregory APRN.REFINERY OPERATOR [facility] [address] [place] [address] Assistant Family Teacher Family Medicine 04/07/24 Byron Jolley APRN.REFINERY [facility]ATOR [facility] [address] [place] [address] Assistant Family Teacher Family Medicine 04/16/24 Laboratory Assistant Relationship Specialty Start Date End Date Milka Mas MD [address] [place] [address] PCP - General Family Medicine 03/09/12 Lalito Kaur MD [address]61 [facility] [address] [place] [address] Physician Cardiology 06/25/18 13, Pharmacist [phone] [place] [address] Pharmacist Pharmacy 08/22/22 Joaquina Gregory APRN.REFINERY OPERATOR [facility] [address] [place] [address] Assistant Family Teacher Family Medicine 04/07/24 Byron Jolley APRN.REFINERY OPERATOR [facility] [address] [place] [address] Assistant Family Teacher Family Medicine 04/16/24 Laboratory Assistant Relationship Specialty Start Date End Date Milka Mas MD [address] [place] [address] PCP - General Family Medicine 03/09/12 Lalito Kaur MD [address] [place] [address] Physician Cardiology 06/25/18 13, Pharmacist [address] [place] [address] Pharmacist Pharmacy 08/22/22 Joaquina Gregory TOURIST CABIN KEEPER.REFINERY OPERATOR [facility] [address] [place] [address] Assistant Family Teacher Family Medicine 04/07/24 Byron Jolley APRN.REFINERY OPERATOR [facility] [address] [place] [address] Assistant Family Teacher Family Medicine 04/16/24 Laboratory Assistant Relationship Specialty Start Date End Date Milka Mas MD [address] [facility] [place] [address] PCP - General Family Medicine 03/09/12 Lalito Kaur MD [address] [facility] [address] [address] Physician Cardiology 06/25/18 13, Pharmacist [address] [place] [address] Pharmacist Pharmacy 08/22/22 Joaquina Gregory APRN.REFINERY [facility]ATOR [facility] [address] [place] [address] Assistant Family Teacher Family Medicine 04/07/24 Byron Jolley APRN.REFINERY OPERATOR [facility] [address] [place] [address] Assistant Family Teacher Family Medicine 04/16/24 Laboratory Assistant Relationship Specialty Start Date End Date Milka Mas MD [address] [place] [address] PCP - General Family Medicine 03/09/12 Lalito Kaur MD [address] [address] Physician Cardiology 06/25/18 13, Pharmacist [address] [place] [address] Pharmacist Pharmacy 08/22/22 Joaquina Gregory TOURIST CABIN KEEPER.REFINERY [facility] [address] [place] [address] Assistant Family Teacher Family Medicine 04/07/24 Byron Jolley APRN.REFINERY OPERATOR [facility] [address] [place] [address] Assistant Family Teacher Family Medicine 04/16/24 Laboratory Assistant Relationship Specialty Start Date End Date Milka Mas MD [address] [place] [address] PCP - General Family Medicine 03/09/12 Lalito Kaur MD [address] [address] Physician Cardiology 06/25/18 13, Pharmacist [address] [place] [address] Pharmacist Pharmacy 08/22/22 Joaquina Gregory APRN.REFINERY OPERATOR [facility] [address] [place] [address] [facility] 04/07/24 Byron Jolley APRN.REFINERY OPERATOR [facility] [address] [place] [address] [facility] 04/16/24 Laboratory Assistant Relationship Specialty Start Date End Date Milka Mas MD [address]40 [place] [address] PCP - General Family Medicine 03/09/12 Lalito Kaur MD [address] [address] Physician Cardiology 06/25/18 13, Pharmacist [address] [place] [address] Pharmacist Pharmacy 08/22/22 Joaquina Gregory APRN.REFINERY OPERATOR [facility] [address] [place] [address] Assistant Family Teacher Family Medicine 04/07/24 09/11/24 Byron Jolley APRN.REFINERY OPERATOR [facility] [address] [place] [address] Assistant Family Teacher Family Medicine 04/16/24 Laboratory Assistant Relationship Specialty Start Date End Date Milka Mas MD [address] [place] [address] PCP - General Family Medicine 03/09/12 Lalito Kaur MD [address] [place] [address] Physician Cardiology 06/25/18 13, Pharmacist [address] [place] [address] Pharmacist Pharmacy 08/22/22 Byron Jolley APRN.REFINERY O[facility]ATOR [facility] [address] [place] [address] Assistant Family Teacher [facility] 04/16/24 Laboratory Assistant Relationship Specialty Start Date End Date Milka Mas MD [address]40 [place] [address] PCP - General Family Medicine 03/09/12 Lalito Kaur MD [address] [place] [address] Physician Cardiology 06/25/18 13, Pharmacist [address] [place] [address] Pharmacist Pharmacy 08/22/22 Byron Jolley APRN.REFINERY [facility]ATOR [facility] [address] [place] [address] Assistant Family Teacher Family Medicine 04/16/24 Laboratory Assistant Relationship Specialty Start Date End Date Milka Mas MD [address] [place] [address] PCP - General Family Medicine 03/09/12 Lalito Kaur MD [address] [facility] [facility] [address] [place] [address] Physician Cardiology 06/25/18 13, Pharmacist [address] [place] [address] Pharmacist Pharmacy 08/22/22 Byron Jolley APRN.REFINERY OPERATOR [facility] [address] [place] [address] Assistant Family Teacher Family Medicine 04/16/24 Laboratory Assistant Relationship Specialty Start Date End Date Milka Mas MD [address] [place] [address] PCP - General Family Medicine 03/09/12 Lalito Kaur MD [address] [facility] [address] [place] [address] Physician Cardiology 06/25/18 13, Pharmacist [address] [facility] [address] Pharmacist Pharmacy 08/22/22 Byron Jolley, TOURIST CABIN KEEPER.REFINERY OPERATOR [facility] [address] [place] [address] Assistant Family Teacher Family Medicine 04/16/24 Laboratory Assistant Relationship Specialty Start Date End Date Milka Mas MD [address] [place] [address] PCP - General Family Medicine 03/09/12 Lalito Kaur MD [address] [facility] [facility] [address] [place] [address] Physician Cardiology 06/25/18 13, Pharmacist [address] [place] [address] Pharmacist Pharmacy 08/22/22 Joaquina Gregory, KARTIK.REFINERY OPERATOR [facility] [address] [place] [address] [facility] 04/07/24 09/11/24 Byron Jolley, KARTIK.REFINERY OPERATOR [facility] [address] [place], [place] [address] [facility] 04/16/24 Laboratory Assistant Relationship Specialty Start Date End Date Milka Mas MD [address] [place], [place] [address] PCP - General Family Medicine 03/09/12 Lalito Kaur MD [address] [address] Physician Cardiology 06/25/18 13, Pharmacist [address] [place] [address] Pharmacist Pharmacy 08/22/22 Byron Jolley, KARTIK.REFINERY OPERATOR [facility] [address] [place], [place] [address] [facility] 04/16/24 Reason for Visit (unrecogniz ed section and content) Reason Comments PT Progress Note Specialty Diagnoses / Procedures Referred By Contac t Referred To Contact [facility] Diagnoses S/P shoulder surgery Procedures PT REHAB FOLLOW UP ORDER THERAPEUTIC EXERCISES RE, EA 15 MIN. Silva Parson PA-C [address] [place] [address] [facility] [place] [address] [place] [address] Referral ID Status Reason Start Date Expiration Date Visits Requested Visits Authorized [id number] Authorized PCP Requested Referral Auto-Generate d Referral 01/03/2023 05/25/2023 24 24 Reason Comments PT Eval Specialty Diagnoses / Procedures Referred By Contac t Referred To Contact [facility] Diagnoses Postoperative pain Chronic left shoulder pain Bursitis of left shoulder Tendinitis of left shoulder Rotator cuff syndrome of right shoulder Post-operative pain Acute pain of left shoulder Procedures PT REHAB FOLLOW UP ORDER THERAPEUTIC EXERCISES RE, EA 15 MIN. Gilbert Dobson, PT [address] [place] [phone] [facility] [address] [address] Referral ID Status Reason Start Date Expiration Date Visits Requested Visits Authorized [id number] Authorized PCP Requested Referral Auto-Generate d Referral 09/17/2021 04/30/2022 24 24 Reason Comments PT Discharge Physical Therapy Specialty Diagnoses / Procedures [facility] Diagnoses Postoperative pain Chronic left shoulder pain Bursitis of left shoulder Tendinitis of left shoulder Rotator cuff syndrome of right shoulder Post-operative pain Acute pain of left shoulder Procedures PT REHAB FOLLOW UP ORDER THERAPEUTIC EXERCISES RE, EA 15 MIN. Gilbert Dobson, PT [address] [place] [phone] [facility] [address] [address] Reason Comments PT Progress Note Physical Therapy Specialty Diagnoses / Procedures [facility] To Contact [facility] Diagnoses Postoperative pain Chronic left shoulder pain Bursitis of left shoulder Tendinitis of left shoulder Rotator cuff syndrome of right shoulder Procedures CONSULT TO PHYSICAL THERAPY PHYSICAL THERAPY EVALUATION HIGH COMPLEX 45 MINS Lisette Banks, DO [address] [place] [address] [facility] [address] [address] Referral ID Status Reason Start Date Expiration Date V isits Requested Visits Authorized [id number] Closed Auto-Generate d Referral 09/15/2021 12/29/2021 1 1 Reason Comments Physical Therapy PT Progress Note Reason Comments Follow Up Pain Reason Comments Anticoagulation Telephone Fu Home INR rs eult Reason Comments Refill Request Reason Comments Pre-op AC instructions Reason Onset Date Comments Refill Request 08/09/2021 Reason Comments Anticoagulation Telephone Fu Home INR re sult Reason Comments Anticoagulation Telephone Fu INR Home Te st Result Reason Onset Date Comments Refill Request 09/17/2021 Reason Comments Anticoagulation Telephone Fu Reason Comments Physical Therapy Specialty Diagnoses / Procedures Referred By Morgan guthrie Referred To Contact [facility] Diagnoses Postoperative pain Chronic left shoulder pain Bursitis of left shoulder Tendinitis of left shoulder Rotator cuff syndrome of right shoulder Procedures CONSULT TO PHYSICAL THERAPY PHYSICAL THERAPY EVALUATION HIGH COMPLEX 45 MINS Lisette Banks DO [address] [place] [address] [facility] [place] [address] Reason Onset Date Comments Refill Request 09/30/2021 Reason Onset Date Comments Refill Request 10/05/2021 Reason Comments Anticoagulation Telephone Fu Home INR Reason Comments Established Patient Follow Up Post Op Reason Comments Anticoagulation Telephone Fu Home INR Reason Onset Date Comments Refill Request 11/26/2021 Reason Comments Post Op Pain Reason Comments PT Progress Note Physical Therapy Reason Onset Date Comments Refill Request 12/23/2021 Reason Onset Date Comments 6 Month Exam Immunizations 01/18/2022 Flu vaccination Reason Onset Date Comments Anticoagulation Telephone Fu 01/24/2022 Reason Comments Joint Pain B Hips, B Hands, B S houlders, B Thumbs, B Knees, Spine Specialty Diagnoses / Procedures Referred By Morgan guthrie Referred To Contact Rheumatology Diagnoses Inflammatory polyarthropathy (HCC) Procedures CONSULT TO RHEUM/IMMUN DISEASE OFFICE/OUTPATIENT [facility] MDM 60-74 MINUTES Lisette Banks DO [address] [place] [address] Referral ID Status Reason Start Date Expiration Date V isits Requested Visits Authorized [id number] Closed PCP Requested Referral 12/01/2021 12/01/2022 1 1 Reason Onset Date Comments Anticoagulation Telephone Fu 02/07/2022 Tg e INR Result Reason Onset Date Comments Population Health Navigation Outreach 02/14/2022 [employer] Gaps Reason Onset Date Comments Anticoagulation 02/28/2022 Home INR Reason Onset Date Comments Refill Request 03/06/2022 Reason Comments Post Op 6 mo arthroscopy Reason Onset Date Comments Anticoagulation Telephone Fu 03/21/2022 Tg e INR Result Reason Comments Derm Problem Cyst to the left chanel e inner thigh Reason Comments Ear Pain right, sinus and jeff inage x 1 day Reason Onset Date Comments Anticoagulation Telephone Fu 04/04/2022 Tg e INR Result Reason Onset Date Comments Anticoagulation Telephone Fu 04/22/2022 INR Home Test Result Reason Onset Date Comments Anticoagulation Telephone Fu 05/09/2022 Tg e INR Result Reason Comments Appointment Reason Onset Date Comments Refill Request 05/16/2022 Reason Onset Date Comments Anticoagulation Telephone Fu 05/23/2022 Tg e INR Result Reason Comments Anticoagulation Telephone Fu Home INR re sult Reason Comments Established Patient Follow Up Reason Onset Date Comments Anticoagulation Telephone Fu 07/07/2022 Tg e INR Reason Comments F/U 6 Month Reason Comments Anticoagulation Telephone Fu Home INR ex pected Reason Comments Pain, Throat Pt reported throat, ear pain x3 days. Reason Onset Date Comments Anticoagulation Telephone Fu 07/28/2022 Tg e INR Reason Onset Date Comments Erroneous encounter-disregard 07/28/2022 Reason Onset Date Comments Anticoagulation Telephone Fu 08/11/2022 Tg e INR in process Reason Onset Date Comments Refill Request 09/28/2022 Reason Onset Date Comments Anticoagulation Telephone Fu 10/06/2022 Tg e INR Reason Onset Date Comments Refill Request 10/19/2022 Reason Comments Injections Left bicep Reason Comments sore on right hand Sore on top of right hand x 6 days-getting red and painful Reason Comments Refill Request Atenolol Reason Comments Patient Question Reason Comments Consult Specialty Diagnoses / Procedures Referred By Morgan guthrie Referred To Contact Diagnoses Biceps tendinitis of left upper extremity Acute pain of left shoulder Bursitis of left shoulder Shoulder impingement Procedures SURGICAL ARTHROSCOPY SHOULDER XTNSV DBRDMT 3+ ARTHROSCOPY SHOULDER W/ DEBRIDEMENT EXTENSIVE 3 OR MORE DISCRETE STRUCTURES [facility] [address] [place] [address] Referral ID Status Reason Start Date Expiration Date Visits Re quested Visits Authorized [id number] 1 1 Specialty Diagnoses / Procedures Referred By Morgan guthrie Referred To Contact [facility] Diagnoses S/P shoulder surgery Procedures CONSULT TO PHYSICAL THERAPY PHYSICAL THERAPY EVALUATION HIGH COMPLEX 45 MINS Silva Parson PA-C [address] [place] [address] [facility] [place] [address] Referral ID Status Reason Start Date Expiration Date V isits Requested Visits Authorized [id number] Closed Auto-Generate d Referral 12/07/2022 04/30/2023 1 1 Reason Comments Patient Assistance Ozempic Specialty Diagnoses / Procedures Referred By Morgan t Referred To Contact [facility] Diagnoses S/P shoulder surgery Procedures PT REHAB FOLLOW UP ORDER THERAPEUTIC EXERCISES RE, EA 15 MIN. Silva Parson PA-C [address] [place] [address] [facility] [place] [address] [place] [address] Referral ID Status Reason Start Date Expiration Date Visits Requested Visits Authorized [id number] Authorized PCP Requested Referral Auto-Generate d Referral 01/03/2023 03/05/2023 10 10 Reason Comments Anticoagulation Telephone Fu Mayela-Proced ural Anticoagulation Reason Onset Date Comments 6 Month Exam Immunizations 02/07/2023 Flu vaccination Referral ID Status Reason Start Date Expiration Date Visits Requested Visits Authorized [id number] Authorized PCP Requested Referral Auto-Generate d Referral 01/03/2023 04/30/2023 14 14 Reason Comments Follow Up Pain Post Op Reason Comments Anticoagulation Telephone Fu Home INR re sult expected Specialty Diagnoses / Procedures Referred By Morgan guthrie Referred To Contact [facility] Diagnoses Shoulder impingement Traumatic complete tear of left rotator cuff, subsequent encounter Chronic left shoulder pain S/P shoulder surgery Procedures MRI SHOULDER WO IVCON LEFT MRI ANY JT UPPER EXTREMITY W/O CONTRAST Lisette Dooley, [address] [place] [address] [place] [id number] Referral ID Status Reason Start Date Expiration Date V isits Requested Visits Authorized [id number] Closed Auto-Generate d Referral 08/22/2022 09/21/2022 1 1 Reason Comments Urinary Problem Blood in urine x 1 d ay Reason Comments Statin therapy Reason Onset Date Comments Anticoagulation Telephone Fu 03/20/2023 Tg e INR Result Reason Onset Date Comments Refill Request 03/31/2023 Reason Onset Date Comments Refill Request 06/03/2023 Reason Onset Date Comments Anticoagulation Telephone Fu 06/12/2023 Tg e INR Result Reason Onset Date Comments Anticoagulation Telephone Fu 06/19/2023 Tg e INR Result Reason Onset Date Comments Anticoagulation Telephone Fu 07/03/2023 Tg e INR Result Reason Comments pt assistance meds Ozempic Reason Onset Date Comments Anticoagulation Telephone Fu 07/17/2023 Tg e INR Reason Onset Date Comments Anticoagulation Telephone Fu 07/31/2023 Tg e INR Result Reason Comments Medication Problem Reason Onset Date Comments Anticoagulation Telephone Fu 08/14/2023 Lab INR Result Reason Comments F/U 3 Month Reason Comments Anticoagulation Telephone Fu Home INR re sults Reason Comments Derm Problem Possible infection i n belly button x4 days Reason Comments Results Reason Onset Date Comments Anticoagulation Telephone Fu 09/11/2023 Tg e INR Result Reason Onset Date Comments Refill Request 09/22/2023 Reason Onset Date Comments Anticoagulation Telephone Fu 10/02/2023 Tg e INR Result Reason Onset Date Comments Anticoagulation Telephone Fu 10/16/2023 Tg e INR Result Reason Onset Date Comments Anticoagulation Telephone Fu 10/23/2023 Tg e INR Result Reason Comments dosage change form Reason Comments indigent meds Ozempic Reason Onset Date Comments Anticoagulation Telephone Fu 11/20/2023 Tg e INR Result Reason Onset Date Comments Anticoagulation Telephone Fu 12/04/2023 Tg e INR Result Reason Onset Date Comments Refill Request 12/04/2023 Reason Onset Date Comments Refill Request 12/11/2023 Reason Comments Patient Question Reason Onset Date Comments Anticoagulation Telephone Fu 01/01/2024 Tg e INR result Reason Onset Date Comments Anticoagulation Telephone Fu 01/15/2024 Lab INR Result Reason Onset Date Comments Anticoagulation Telephone Fu 01/29/2024 Tg e INR Result Reason Onset Date Comments Anticoagulation Telephone Fu 02/12/2024 Tg e INR Result Reason Comments F/U 3 Month Reason Onset Date Comments Anticoagulation Telephone Fu 10/09/2023 Tg e INR Result Reason Comments Forms Reason Onset Date Comments Anticoagulation Telephone Fu 03/26/2024 Reason Onset Date Comments Refill Request 04/11/2024 Reason Comments Orders Reason Comments pt assistance forms [employer] Reason Onset Date Comments Anticoagulation Telephone Fu 05/06/2024 Tg e INR Result Reason Comments Anticoagulation Reason Onset Date Comments Anticoagulation Telephone Fu 06/24/2024 Gt e INR Result Reason Onset Date Comments Anticoagulation Telephone Fu 07/11/2024 Tg e INR Reason Comments Insurance Authorization Reason Onset Date Comments Anticoagulation Telephone Fu 07/22/2024 Tg e INR Result Reason Comments Radiology US Specialty Diagnoses / Procedures Referred By Morgan guthrie Referred To Contact [facility] Diagnoses Abnormal mammogram Procedures US BREAST LTD RIGHT US BREAST UNI REAL TIME WITH IMAGE LIMITED Milka Mas MD [address] [place] [address] Phone: tel: fax: [facility] [address] [place] [address] Referral ID Status Reason Start Date Expiration Date V isits Requested Visits Authorized [id number] Closed Auto-Generate d Referral 07/23/2024 08/22/2025 1 1 Reason Onset Date Comments Anticoagulation Telephone Fu 08/08/2024 Tg e INR Reason Onset Date Comments Refill Request 09/05/2024 Reason Onset Date Comments Refill Request 09/16/2024 Reason Comments indigent meds Ozempic Reason Comments New USGI Pain USGI Reason Onset Date Comments Anticoagulation Telephone Fu 10/07/2024 Tg e INR Result Reason Onset Date Comments Refill Request 10/11/2024 Reason Comments Established Patient Goals (unrecognized section and content) Goals may be documented in a n alternate sectionGoals may be documented in an alternate sectionGoals may be documented in an alternate sectionGoals may be documented in an alternate section FOR RECORDS PERTAINING TO PATIENTS WHO ARE OR HAVE BEEN ENROLLED IN A CHEMICAL DEPENDENCY/SUBSTANCEABUSE PROGRAM, SOME INFORMATION MAY BE OMITTED. This clinical summary was aggregated from multiple sources. Caution should be exercised in using it in the provision of clinical care. This summary normalizes information from multiple sources, and as a consequence, information in this document may materially change the coding, format and clinical context of patient data. In addition, data may be omitted in some cases. CLINICAL DECISIONS SHOULD BE BASED ON THE PRIMARY CLINICAL RECORDS. [employer] provides no warranty or guarantee of the accuracy or completeness of information in this document.
[2024-10-20 13:09] VITALS: BP 146/70; PULSE 70; RESP 12; TEMP 36.9; O2SAT 95
== END 2024-10-20 13:14 | disposition home or self-care (01) ==
PROVIDERS: Physician Assistant; Emergency Provider Emergency Medicine; PCP Family Medicine; Visit Provider Emergency Medicine
DX: R51.9 Headache, unspecified (principal); R10.32 Left lower quadrant pain; R11.0 Nausea; R50.9 Fever, unspecified; Z79.01 Long term (current) use of anticoagulants; Z79.899 Other long term (current) drug therapy; Z87.891 Personal history of nicotine dependence; Z87.442 Personal history of urinary calculi; Z87.19 Personal history of other diseases of the digestive system
CPT/HCPCS: 74177; 80053; 81001; 83690; 85025; 96361; 96374; 99283; Q9967; A4216